=== PATIENT | female | born 1990 | race Caucasian/White ===

== ENCOUNTER 2024-02-15 19:36 | Outpatient (REF) | payer BC, SELFPAY | END 2024-02-15 19:37 | disposition home or self-care (01) | LOC: LAB 19:36 | PROVIDERS: Visit Provider Physician Assistant | DX: Z01.419 Encounter for gynecological examination (general) (routine) without abnormal findings (principal) | CPT/HCPCS: 87624; 88175 ==

== ENCOUNTER 2024-03-02 09:13 | Outpatient (OUT) | payer BC, SELFPAY ==
--- OUTSIDE RECORDS SUMMARY | 2024-03-02 09:15 | XMS_ITS | CCD ---
Author Organization [facility] Care Team Providers Care Produce Laborer Name Role Phone ADRIAN ., DR KWAN Admitting Unavailable ADRIAN ., DR KWAN Consulting Unavailable REQUEST, NONE LISTED Primary Care Unavaila ble ADRIAN ., DR KWAN Attending Unavailable ADRIAN ., DR KWAN Consulting Unavailable ADRIAN ., DR KWAN Attending Unavailable REQUEST, DR NONE LISTED Primary Care Unavaila ble ADRIAN ., DR KWAN Admitting Unavailable ADRIAN ., DR KWAN Consulting Unavailable ADRIAN ., DR KWAN Attending Unavailable REQUEST, DR NONE LISTED Primary Care Unavaila ble ADRIAN ., DR KWAN Admitting Unavailable LA ., MILENA Consulting Unavailable LA ., MILENA Attending Unavailable REQUEST, NONE LISTED Primary Care Unavaila ble [place] ., MILENA Admitting Unavailable ADRIAN ., DR KWAN Admitting Unavailable ADRIAN ., DR KWAN Consulting Unavailable REQUEST, DR NONE LISTED Primary Care Unavaila ble ADRIAN ., DR KWAN Attending Unavailable ADRIAN ., DR KWAN Admitting Unavailable ADRIAN ., DR KWAN Consulting Unavailable ADRIAN ., DR KWAN Attending Unavailable ADRIAN ., DR KWAN Attending Unavailable ADRIAN ., DR KWAN Admitting Unavailable ADRIAN ., DR KWAN Consulting Unavailable ADRIAN ., DR KWAN Consulting Unavailable ADRIAN ., DR KWAN Attending Unavailable REQUEST, DR NONE LISTED Primary Care Unavaila ble ADRIAN ., DR KWAN Admitting Unavailable ADRIAN ., DR WKAN Admitting Unavailable ADRIAN ., DR KWAN Consulting Unavailable REQUEST, DR NONE LISTED Primary Care Unavaila ble ADRIAN ., DR KWAN Attending Unavailable ADRIAN ., DR KWAN Admitting Unavailable REQUEST, DR NONE LISTED Primary Care Unavaila ble ADRIAN ., DR KWAN Attending Unavailable WEST, DR ROOSEVELT Mendoza Consulting Unavailable ADRIAN ., DR KWAN Consulting Unavailable ADRIAN ., DR KWAN Attending Unavailable REQUEST, DR ASHRAF LISTED Consulting Unavaila ble ADRIAN ., DR KWAN Admitting Unavailable REQUEST, DR ASHRAF LISTED Primary Care Unavaila ble REQUEST, DR ASHRAF LISTED Primary Care Unavaila ble ADRIAN ., DR KWAN Admitting Unavailable ADRIAN ., DR KWAN Attending Unavailable Unavailable Primary Care Provider UnavailAQUILES Valenzuela Attending Unavailable FLOWER OTERO Attending Unavailable Allergies Allergy Classification Reported Allergen(s) Allergy Type Date of Onset Reaction(s) Facility (1 source) Cefadroxil Drug Allergy [facility] (1 source) natural latex rubber Drug allergy (disorder) [facility] (6 sources) Cefadroxil Drug Allergy 12-02-2022 [facility] (6 sources) Latex Allergy to substance 12-02-2022 [facility] (6 sources) PARoxetine Drug Allergy 12-02-2022 [facility] Medications Current Medications Medication Drug Class(es) Dates Sig (Normalized) Sig (Original) 12 hr guaiFENesin 600 mg extended release oral tablet (2 sources) take 1 tablet by mouth in the morning, then take 1 tablet by mouth every twelve hours at bedtime guaiFENesin (Mucinex) 600 MG 12 hr tablet Take 1,200 mg by mouth in the morning and 1,200 mg before bedtime. Do not crush, chew, or split.. Active letrozole 2.5 mg oral tablet (5 sources) Aromatase Inhibitor Start: 02-12-2024 End: 02-17-2024 take 1 tablet by mouth once daily letrozole (Femara) 2.5 MG chemo tablet Indications: Anovulation Take 1 tablet (2.5 mg total) by mouth Daily for 5 days. 5 tablet 02/12/2024 02/17/2024 Active Bprsucel-Azt-Wz-FA ( 1 + IRON PO) (5 sources) Ypekazgw-Dxr-Fa-FA ( 1 + IRON PO) Active Vit-Fe Aiacygq-GL-ZRU ( VITAMIN/MIN +DHA PO) (5 sources) Start: 06-09-2023 Vit-Fe Bzsbasj-LE-DWH ( VITAMIN/MIN +DHA PO) 06/09/2023 Active ubidecarenone 30 mg oral capsule (2 sources) take 1 capsule by mouth once daily co-enzyme Q-10 30 MG capsule Take 30 mg by mouth Daily Active Problems Active Problems Problem Classification Problem Date Documented Da te Episodic/Chronic Anxiety disorders (5 sources) Anxiety disorder, unspecified; Translations: [Acute stress reaction] Onset: 05-22-2022 Chronic Female infertility (12 sources) Female infertility associated with anovulation; Translations: [Anovulation] Onset: 04-15-2022 Chronic Menstrual disorders (16 sources) Irregular menstruation, unspecified; Translations: [Disorder of menstruation] Onset: 05-13-2022 Chronic Other female genital disorders (6 sources) Abnormal uterine bleeding; Translations: [Other specified abnormal uterine and vaginal bleeding] Onset: 12-02-2022 12-02-2022 Chronic Past or Other Problems Problem Classification Problem Date Documented Da te Episodic/Chronic Hemorrhage during ; abruptio placenta; placenta previa (10 sources) Hemorrhage in early , unspecified; Translations: [Antepartum hemorrhage] Onset: 05-17-2022 Resolved: 12-02-2022 Episodic Mycoses (6 sources) Mycosis; Translations: [Candidiasis, unspecified] Onset: 12-02-2022 12-02-2022 Episodic Other female genital disorders (4 sources) Personal history of other diseases of the female genital tract; Translations: [PERSONAL HX OTH DZ FE GENITAL TRACT] Onset: 02-14-2022 Episodic Screening and history of mental health and substance abuse codes (1 source) Personal history of nicotine dependence; Translations: [PERSONAL HISTORY OF NICOTINE DEPEND] Onset: 05-23-2022 Episodic Results Test Name Value Interpretation Reference Range Facility DHEA-SULFATEon 08-23-2022 DHEA-Sulfate 352.0 ug/dL Normal 84.8-378.0 [facility] Comment on above: Performed By: #### L [facility] #### [facility] [address] [place] [address] Dr. Nam Keenan FSHon 08-23-2022 FSH 6.7 mIU/mL Normal [facility] Comment on above: Result Comment: Adul t Female: Follicular phase 3.5 - 12.5 Ovulation phase 4.7 - 21.5 Luteal phase 1.7 - 7.7 Postmenopausal 25.8 - 134.8 Performed By: #### L [facility] #### [facility] [address] [place] [address] Dr. Nam Keenan LUTEINIZING HORMONE (LH)on 0 08-23-2022 LH 13.7 mIU/mL Normal [facility] Comment on above: Result Comment: Adul t Female: Follicular phase 2.4 - 12.6 Ovulation phase 14.0 - 95.6 Luteal phase 1.0 - 11.4 Postmenopausal 7.7 - 58.5 Performed By: #### L BCL #### [facility] [address] [place] [address] Dr. Nam Keenan CBC AUTO DIFFon 08-22-2022 BASO # 0.1 103/ul Normal 0.0-0.1 [facility] Comment on above: Performed By: #### L [facility] #### [facility] [address] [place] [address] Dr. Nam Keenan Basophils/100 WBC (Bld) 0.7 % Normal 0.2-2.0 [facility] Comment on above: Performed By: #### L [facility] #### [facility] [address] [place] [address] Dr. Nam Keenan EO # 0.3 103/ul Normal 0.0-0.7 [facility] Comment on above: Performed By: #### L BCL #### [facility] [address] [place] [address] Dr. Nam Keenan Eosinophils/100 WBC (Bld) 3.9 % Normal 0.9-7.0 [facility] Comment on above: Performed By: #### L [facility] #### [facility] [address] [place] [address] Dr. Nam Keenan Erythrocyte distribution width (RBC) [Ratio] 13.3 % Normal 11.0-15.0 [facility] Comment on above: Performed By: #### L [facility] #### [facility] [address] [place] [address] Dr. Nam Keenan Hematocrit (Bld) [Volume fraction] 38.7 % Normal 36.0-48.0 [facility] Comment on above: Performed By: #### L [facility] #### [facility] [address] [place] [address] Dr. Nam Keenan Hemoglobin (Bld) [Mass/Vol] 12.4 g/dL Normal 12.0-16.0 [facility] Comment on above: Performed By: #### L [facility] #### [facility] [address] [place] [address] Dr. Nam Keenan IG # 0.01 10e3/ul Normal 0.00-0.03 [facility] Comment on above: Performed By: #### L [facility] #### [facility] [address] [place] [address] Dr. Nam Keenan IG % 0.1 % Normal 0.0-0.5 [facility] Comment on above: Performed By: #### L [facility] #### [facility] [address] [place] [address] Dr. Nam Keenan LYMPH # 2.9 103/ul Normal 1.2-3.8 [facility] Comment on above: Performed By: #### L [facility] #### [facility] [address] [place] [address] Dr. Nam Keenan Lymphocytes/100 WBC (Bld) 34.4 % Normal 20.5-60.0 [facility] Comment on above: Performed By: #### L [facility] #### [facility] [address] [place] [address] Dr. Nam Keenan MANUAL DIFF REQ NO Normal [facility] Comment on above: Performed By: #### L [facility] #### [facility] [address] [place] [address] Dr. Nam Keenan MCH (RBC) [Entitic mass] 27.8 pg Normal 26.7-34.0 [facility] Comment on above: Performed By: #### L [facility] #### [facility] [address] [place] [address] Dr. Nam Keenan MCHC (RBC) [Mass/Vol] 32.0 g/dL Normal 29.9-35.2 [facility] Comment on above: Performed By: #### L [facility] #### [facility] [address] [address] [address] Nam Keenan MCV (RBC) [Entitic vol] 86.8 fL Normal 81.0-99.0 [facility] Comment on above: Performed By: #### L [facility] #### [facility] [address] [address] [address] Nam Keenan MONO # 0.6 103/ul Normal 0.3-0.8 [facility] Comment on above: Performed By: #### L [facility] #### [facility] [address] [place] [address] Dr. Nam Keenan Monocytes/100 WBC (Bld) 6.7 % Normal 1.7-12.0 [facility] Comment on above: Performed By: #### L [facility] #### [facility] [address] [place] [address] Dr. Nam Keenan NEUT # 4.6 103/ul Normal 1.4-6.5 [facility] Comment on above: Performed By: #### L BCL #### [facility] [address] [place] [address] Dr. Nam Keenan Neutrophils/100 WBC (Bld) 54.2 % Normal 43.0-75.0 [facility] Comment on above: Performed By: #### L BCL #### [facility] [address] [place] [address] Dr. Nam Keenan Platelet mean volume (Bld) [Entitic vol] 9.6 fL Normal 9.5-13.5 [facility] Comment on above: Performed By: #### L BCL #### [facility] [address] [place] [address] Dr. Nam Keenan PLT 335 103/ul Normal 150-450 [facility] Comment on above: Performed By: #### L [facility] #### [facility] [address] [place] [address] Dr. Nam Keenan RBC 4.46 106/ul Normal 4.20-5.40 [facility] Comment on above: Performed By: #### L [facility] #### [facility] [address] [address] [address] Nam Keenan WBC 8.5 103/ul Normal 4.0-11.0 [facility] Comment on above: Performed By: #### L [facility] #### [facility] [address] [place] [address] Dr. Nam Keenan FREE T4on 08-22-2022 Free T4 [Mass/Vol] 1.14 ng/dL Normal 0.76-1.46 [facility] Comment on above: Performed By: #### L [facility] #### [facility] [address] [address] [address] Nam Keenan GLYCOHEMOGLOBIN A1Con 2022 ADA RECOMMENDATION SEE BELOW Normal [facility] Comment on above: Result Comment: ADA RECOMMENDED LIMIT 4.0 - 6.0 ADA THERAPEUTIC TARGET < 7.0 ACTION SUGGESTED > 7.0 Performed By: #### A 1C #### [facility] [address] [place] [address] Dr. Nam Keenan Glucose [Mass/Vol] 97 mg/dL Normal [facility] Comment on above: Performed By: #### A 1C #### [facility] [address] [address] [address] Nam Keenan HbA1c (Bld) [Mass fraction] 5.0 % Normal 4.5-6.2 [facility] Comment on above: Performed By: #### A 1C #### [facility] [address] [place] [address] Dr. Nam Keenan PREG QUANT HCGon 08-22-2022 HCG QUANT <1 Normal [facility] Comment on above: Performed By: #### P REGQNT, TSH #### [facility] [address] [place] [address] Dr. Nam Keenan HCG RANGE SEE BELOW Normal [facility] Comment on above: Result Comment: 5-50 0.2-1 WEEK 50-500 1-2 WEEKS 100-5,000 2-3 WEEKS 500-10,000 3-4 WEEKS 1,000-50,000 4-5 WEEKS 10,000-100,000 5-6 WEEKS 15,000-200,000 6-8 WEEKS 10,000-100,000 2-3 MONTHS Performed By: #### P REGQNT, TSH #### [facility] [address] [place] [address] Dr. Nam Keenan TSHon 08-22-2022 TSH 2.026 uIU/mL Normal 0.358-3.740 [facility] Comment on above: Performed By: #### P REGQNT, TSH #### [facility] [address] [place] [address] Dr. Nam Keenan PREG QUANT HCGon 05-27-2022 HCG QUANT 3 mIU/mL Normal [facility] Comment on above: Performed By: #### P REGQNT #### [facility] [address] [place] [address] Dr. Nam Keenan HCG RANGE SEE BELOW Normal [facility] Comment on above: Result Comment: 5-50 0.2-1 WEEK 50-500 1-2 WEEKS 100-5,000 2-3 WEEKS 500-10,000 3-4 WEEKS 1,000-50,000 4-5 WEEKS 10,000-100,000 5-6 WEEKS 15,000-200,000 6-8 WEEKS 10,000-100,000 2-3 MONTHS Performed By: #### P REGQNT #### [facility] [address] [place] [address] Dr. Nam Keenan CBC AUTO DIFFon 05-22-2022 BASO # 0.1 103/ul Normal 0.0-0.1 [facility] Comment on above: Performed By: #### L [facility]CL[facility] #### [facility] [address] [place] [address] Dr. Nam Keenan Basophils/100 WBC (Bld) 0.7 % Normal 0.2-2.0 [facility] Comment on above: Performed By: #### L [facility] #### [facility] [address] [place] [address] Dr. Nam Keenan EO # 0.2 103/ul Normal 0.0-0.7 [facility] Comment on above: Performed By: #### L [facility] #### [facility] [address] [place] [address] Dr. Nam Keenan Eosinophils/100 WBC (Bld) 1.6 % Normal 0.9-7.0 [facility] Comment on above: Performed By: #### L BCL #### [facility] [address] [place] [address] Dr. Nam Keenan Erythrocyte distribution width (RBC) [Ratio] 13.9 % Normal 11.0-15.0 [facility] Comment on above: Performed By: #### L [facility] #### [facility] [address] [place] [address] Dr. Nam Keenan Hematocrit (Bld) [Volume fraction] 36.2 % Normal 36.0-48.0 [facility] Comment on above: Performed By: #### L [facility] #### [facility] [address] [place] [address] Dr. Nam Keenan Hemoglobin (Bld) [Mass/Vol] 12.1 g/dL Normal 12.0-16.0 [facility] Comment on above: Performed By: #### L [facility] #### [facility] [address] [place] [address] Dr. Nam Keenan IG # 0.03 10e3/ul Normal 0.00-0.03 [facility] Comment on above: Performed By: #### L [facility] #### [facility] [address] [place] [address] Dr. Nam Keenan IG % 0.3 % Normal 0.0-0.5 [facility] Comment on above: Performed By: #### L [facility] #### [facility] [address] [place] [address] Dr. Nam Keenan LYMPH # 3.9 103/ul Critically high 1.2-3.8 [facility] Comment on above: Performed By: #### L [facility] #### [facility] [address] [place] [address] Dr. Nam Keenan Lymphocytes/100 WBC (Bld) 38.0 % Normal 20.5-60.0 [facility] Comment on above: Performed By: #### L [facility] #### [facility] [address] [address] [address] Nam Keenan MANUAL DIFF REQ NO Normal [facility] Comment on above: Performed By: #### L [facility] #### [facility] [address] [address] [address] Nam Keenan MCH (RBC) [Entitic mass] 28.0 pg Normal 26.7-34.0 [facility] Comment on above: Performed By: #### L [facility] #### [facility] [address] [place] [address] Dr. Nam Keenan MCHC (RBC) [Mass/Vol] 33.4 g/dL Normal 29.9-35.2 [facility] Comment on above: Performed By: #### L BCL #### [facility] [address] [place] [address] Dr. Nam Keenan MCV (RBC) [Entitic vol] 83.8 fL Normal 81.0-99.0 [facility] Comment on above: Performed By: #### L BCL #### [facility] [address] [place] [address] Dr. Nam Keenan MONO # 0.8 103/ul Normal 0.3-0.8 [facility] Comment on above: Performed By: #### L BCL #### [facility] [address] [place] [address] Dr. Nam Keenan Monocytes/100 WBC (Bld) 7.6 % Normal 1.7-12.0 [facility] Comment on above: Performed By: #### L BCL #### [facility] [address] [place] [address] Dr. Nma Keenan NEUT # 5.4 103/ul Normal 1.4-6.5 [facility] Comment on above: Performed By: #### L [facility] #### [facility] [address] [place] [address] Dr. Nam Keenan Neutrophils/100 WBC (Bld) 51.8 % Normal 43.0-75.0 [facility] Comment on above: Performed By: #### L [facility] #### [facility] [address] [address] [address] Nam Keenan Platelet mean volume (Bld) [Entitic vol] 9.1 fL Critically low 9.5-13.5 [facility] Comment on above: Performed By: #### L BCL #### [facility] [address] [address] [address] Nam Keenan PLT 342 103/ul Normal 150-450 [facility] Comment on above: Performed By: #### L [facility] #### [facility] [address] [address] [address] Nam Keenan RBC 4.32 106/ul Normal 4.20-5.40 [facility] Comment on above: Performed By: #### L [facility] #### [facility] [address] [place] [address] Dr. Nam Keenan WBC 10.3 103/ul Normal 4.0-11.0 [facility] Comment on above: Performed By: #### L BCL #### [facility] [address] [place] [address] Dr. Nam Keenan PROF CHEM 8 (BAS METB)on Anion gap [Moles/Vol] 12.1 mmol/L Normal [facility] Comment on above: Performed By: #### B MP #### [facility] [address] [place] [address] Dr. Nam Keenan Calcium [Mass/Vol] 8.9 mg/dL Normal 8.5-10.1 [facility] Comment on above: Performed By: #### B MP #### [facility] [address] [place] [address] Dr. Nam Keenan Chloride [Moles/Vol] 105 mmol/L Normal 98-107 [facility] Comment on above: Performed By: #### B MP #### [facility] [address] [place] [address] Dr. Nam Keenan CO2 [Moles/Vol] 27.4 mmol/L Normal 21.0-32.0 [facility] Comment on above: Performed By: #### B MP #### [facility] [address] [address] [address] Nam Keenan Creatinine [Mass/Vol] 0.66 mg/dL Normal 0.55-1.02 [facility] Comment on above: Performed By: #### B MP #### [facility] [address] [address] [address] Nam Keenan EGFR-AF SYRIAN >60 Normal >=60 [facility] Comment on above: Performed By: #### B MP #### [facility] [address] [address] [address] Nam Keenan EGFR-NON AF SYRIAN >60 Normal >=60 [facility] Comment on above: Performed By: #### B MP #### [facility] [address] [address] [address] Nam Keenan Glucose [Mass/Vol] 105 mg/dL Normal 74-106 [facility] Comment on above: Performed By: #### B MP #### [facility] [address] [address] [address] Nam Keenan Potassium [Moles/Vol] 3.5 mmol/L Normal 3.5-5.1 [facility] Comment on above: Performed By: #### B MP #### [facility] [address] [address] [address] Nam Keenan Sodium [Moles/Vol] 141 mmol/L Normal 136-145 [facility] Comment on above: Performed By: #### B MP #### [facility] [address] [address] [address] Nam Keenan Urea nitrogen [Mass/Vol] 7.0 mg/dL Normal 7.0-18.0 [facility] Comment on above: Performed By: #### B MP #### [facility] [address] [place] [address] Dr. Nam Keenan Urea nitrogen/Creatinine [Mass ratio] 10.6 mg/mg Normal [facility] Comment on above: Performed By: #### B MP #### [facility] [address] [address] [address] Nam Keenan PREG QUANT HCGon 05-17-2022 HCG QUANT 532 mIU/mL Normal [facility] Comment on above: Performed By: #### L [facility] #### [facility] [address] [place] [address] Dr. Nam Keenan HCG RANGE SEE BELOW Normal [facility] Comment on above: Result Comment: 5-50 0.2-1 WEEK 50-500 1-2 WEEKS 100-5,000 2-3 WEEKS 500-10,000 3-4 WEEKS 1,000-50,000 4-5 WEEKS 10,000-100,000 5-6 WEEKS 15,000-200,000 6-8 WEEKS 10,000-100,000 2-3 MONTHS Performed By: #### L [facility] #### [facility] [address] [place] [address] Dr. Nam Keenan US PREG TVon 05-13-2022 US PREG TV EXAMINATION: US PREG TV HISTORY: Missed period COMPARISON: No relevant comparison available. FINDINGS: Transvaginal images Area of anechoic echogenicity within the endometrial cavity measuring 7.1 x 5.2 x 7.2 mm with a mean sac diameter of 6.5 mm. pole: Not visualized Cervix: Closed, 4.3 cm The uterus is normal in appearance, anteverted, retroflexed The right ovary measures 4.3 x 4.2 x 3.3 cm. Corpus luteal cyst. The left ovary is not visualized Clinical age: 7 weeks 0 days Clinical KAY: 12/30/2022 IMPRESSION: Suspected early intrauterine gestation. Continued surveillance recommended Electronically authenticated by: ROOSEVELT LOPEZ Date: 2022-05-13 13:02 Normal [facility] PREG QUANT HCGon 04-28-2022 HCG QUANT 139 mIU/mL Normal [facility] Comment on above: Performed By: #### L [facility] #### [facility] [address] [place], [place] [id number] Dr. Nam Keenan HCG RANGE SEE BELOW Normal [facility] Comment on above: Result Comment: 5-50 0.2-1 WEEK 50-500 1-2 WEEKS 100-5,000 2-3 WEEKS 500-10,000 3-4 WEEKS 1,000-50,000 4-5 WEEKS 10,000-100,000 5-6 WEEKS 15,000-200,000 6-8 WEEKS 10,000-100,000 2-3 MONTHS Performed By: #### L [facility] #### [facility] [address] [place] [address] Dr. Nam Keenan PREG QUANT HCGon 04-26-2022 HCG QUANT 50 mIU/mL Normal [facility] Comment on above: Performed By: #### P REGQNT #### [facility] [address] [place] [address] Dr. Nam Keenan HCG RANGE SEE BELOW Normal [facility] Comment on above: Result Comment: 5-50 0.2-1 WEEK 50-500 1-2 WEEKS 100-5,000 2-3 WEEKS 500-10,000 3-4 WEEKS 1,000-50,000 4-5 WEEKS 10,000-100,000 5-6 WEEKS 15,000-200,000 6-8 WEEKS 10,000-100,000 2-3 MONTHS Performed By: #### P REGQNT #### [facility] [address] [place] [address] Dr. Nam Keenan PROGESTERONEon 04-19-2022 Progesterone 12.6 ng/mL Normal [facility] Comment on above: Result Comment: Foll icular phase 0.1 - 0.9 Luteal phase 1.8 - 23.9 Ovulation phase 0.1 - 12.0 First trimester 11.0 - 44.3 Second trimester 25.4 - 83.3 Third trimester 58.7 - 214.0 Postmenopausal 0.0 - 0.1 Performed By: #### P ROGES #### [facility] [address] [place] [address] Dr. Nam Keenan PROGESTERONEon 04-16-2022 Progesterone 9.5 ng/mL Normal [facility] Comment on above: Result Comment: Foll icular phase 0.1 - 0.9 Luteal phase 1.8 - 23.9 Ovulation phase 0.1 - 12.0 First trimester 11.0 - 44.3 Second trimester 25.4 - 83.3 Third trimester 58.7 - 214.0 Postmenopausal 0.0 - 0.1 Performed By: #### L BCL[facility] #### [facility] [address] [place] [address] Dr. Nam Keenan PROGESTERONEon 03-15-2022 Progesterone 6.2 ng/mL Normal [facility] Comment on above: Result Comment: Foll icular phase 0.1 - 0.9 Luteal phase 1.8 - 23.9 Ovulation phase 0.1 - 12.0 First trimester 11.0 - 44.3 Second trimester 25.4 - 83.3 Third trimester 58.7 - 214.0 Postmenopausal 0.0 - 0.1 Performed By: #### L [facility] #### [facility] [address] [place], [place] [id number] Dr. Nam Keenan PROGESTERONEon 02-15-2022 Progesterone 11.0 ng/mL Normal [facility] Comment on above: Result Comment: Foll icular phase 0.1 - 0.9 Luteal phase 1.8 - 23.9 Ovulation phase 0.1 - 12.0 First trimester 11.0 - 44.3 Second trimester 25.4 - 83.3 Third trimester 58.7 - 214.0 Postmenopausal 0.0 - 0.1 Performed By: #### P [facility] #### [facility] [address] [place], [place] [id number] Dr. Nam Keenan Coding Summary.on 03-30-2021 Coding Summary. CD:[id number] Gh 0bWw+PGhlYWQ+EI2PRXWhE 99gyYVdtU0PV6rLON8BEEU JWQSUJA3QHT1dwSD8YYhtH 2VybiAv EstsjVKpXH83MXg3GMW4uL fpSIsplY2rjTCvP3t8FqAl FA25aV72PFirBHQbRgB7Kh ZpbjsgbWFy A8xiFeHcfOIiUyv+PHRhYm xlIHdpZHRoPScxMDAlJyBz vRdlLY9jFn7iYJVoVSOmbT xhcHNlOiBj n1bxSPRnLHsyMD4chLrfG6 CkiHI6WWTvy0k9Tf43hBJ+ KYVdAHT0dLxzXSrwl517Pd Fvt1nrUDU3 oDEbEIwmVXQ4N94ii7L5ZD SxPPEaJHG4dRB0pV7ucVpx egcrR5CxrFEeQdA0XEI7uQ IwrX2oqZpd wrvxjS9fVtu+N79INU6TWY NOWK4BCij4R2EaAqpmwDG+ BY45UPYiSV34uPIudDKyo6 uwlHh4MdWi QIMrPQL2bZooOQynx3VlUP GgA57txGAap9C0MZGixPze iNOhJkVjuKV6iC1qXEfrxs uqw6bitzye Cnwyq1zycb54vJ33D58gXC eqCAWkTZQ1GSLaDIOwpZgt cd6qtR6aNc5+ALgtj7wmd0 hghJv6ZtGk ZEXsopQmmAsiWDL1e3UdZy 75D9ZhlAdqg5LnKhg9lv64 pSDcd8T2vPN5DTacMRYuyE 6fWFrfOlE9 LRMgFsVbfD31pGQqBXsqJz 0ooDvgaSflMV2jLYYcvpbk PPZvyG3cYHJzfCOmyIlhFN 4wNTBpbjtm w217JfIoRVZ6TNPwiTNbD2 YpoY3gNzKxIRZnEBIwC5Lo oDApBMjzY342KLdhWuN4BL RwrlXeK4Hx ISAraLjoFrP2q5E5Cg8Ni6 CbpwhlCYN9AFtyGIPyAfDe GoHmDaS8A3DzEje1PBXhaG vuVI2oK6Wx UIJfzboruquyoJA4GAMgIN CwmD60zGEqRFxhYk9qk2V4 y250RHEtYDOelD29Gq5itA ogMTBwdCBU iT7nylclf9bjtxyzXnJmDD EcLVt6ZQq6OHMumUbrNoTc DVJ5FnJ4WVS2tNVcqI8ygD pjbdsivQ4i Oyc+S87lhH1cAXT1FDW9xe xbAHBrpdOiQB90KT79Q0Kb PjwvdGFibGU+PGRpdiBzdH rbKV2fCiVw d7utm3UeZKceO6MpTPWiIH ffZfe3FOSuYLB8gVP7bT1o CIRcCBeci1B5yWI7T9Kmaa Chiw6rq4yr ORPsTNhqY26ehRBwe6M8LY OfmRM9YPEryXusWiNumM39 Oyc+ALWnlIpoa4RjEqmnb1 flx2ysvOp1 UyWjOUJnoaSijInhFFR4t4 XyTu23L79fYUkbJLIwJEGm SRGlCJDpvJoqle9ywK0yHx 8+PGNvbCB3 xVV6oM2fGFSuTpV2SSifX0 86RhQjqLEtEypxy8ysf6gc jFo3JrJgTFRptdBefPwoEK H6q1YdOa99 S74vQEsfROYdKRYrQTAsPD IfnNkssg0ehN1zEr0+PC9j k4rchf93gD71jNR+PHRkIH V5mTsbGZxi EXRseQ8pQKdmRqV4XOUkYi RjcU06dAQpHWeuDt2bhHnn vPzrKD5eXAWjaiinf515Sd Plk2wcXGQg wJRpXLsyNMA7D03ms2K1SL UyGUDlXZT9yPA4cE9sqRlf bjogbGVmdDsgdmVydGljYW ykLPodY086 IHRvcDsnPlBhdGllbnQgTm EoYAs5E5GuMar8OSAmrLig LE9czWRnENsgXh8jhKzgkT rpBD3iTBPw huyil539RoTcw7wzHCIoiV MfBYfgCPE5R68iy0Y3ZIBj BWLyOZK0oFM9aT7bqAwgem ogbGVmdDsg ogNwcQdqGHckJChuI399LN RvcDsnPkJpcnRoIERhdGU6 RW56CQ33pNYkv1L9wLN3X1 BhZGRpbmct xhzznRE1JJKdALYfsB39Tj 9ebLxiNm3pSOIeZDJ8UDRu rIAlZ5RexP4zNmMsYSSoZM DjQ2MnsSTo EPtkC193MTfnFuY5PKSokk HlS8TgTWPhmEmyFkP9y2Q7 Mt7WV5H4NJ96GO17vGNsn6 L9uWZ1Q5Ms LVXyuhgojkugdXW9VWGgUX QsuH65Cy1nlMdpNm7aONDj IUZ8VSLkpXKeQ1XuqS2dXj AjMDAwMDAw X9LrxAPmHQyeQ496PVxiPo I7CRXgofAfN4PxQAZcuLpm GsM8i0N3Tc0PFWq2YK65CQ 56sVLdj9M0 wUD3O4NuOOAdrbmpmhpyxU Q1RAKtVAKzjA51Jj3peMmn Zq6yPBKhZCO3KUImcIPsL4 KotY3sLqOf MUKvIGRzJ9YgwRSbLGncD4 70IRwiFwM3CPNijlVgJ7Vy PQPnpJpvSdI2l3N9Vv8QDG YhRS33OKI9 wLB2XJ59TR05Q6DxVzjbhM FibGU+PHRhYmxlIHdpZHRo XAvbCPWtSyRpgJwbIR7qJo 9yZGVyLWNv bLxgxIVcKaEze6iyAUGjUJ jtVV5xsFqyM3AhpGJ1AREa p3k9Wd99G86oU1SkfTZ+PG QbnZT7sFD6 xE3cQjHaJyN7ZWnpN310De DgrGMoKtkxn1zrj6xhlPt9 IrE3NSVfxeHdnZfpHOV4r9 RqHf96Q17k IHdpZHRoPSIxNSUiIHZhbG nlsd7wiK7dOh9+PGNvbCB3 yFL4wJ7eGfFaZvO8QLcgO0 49InRvcCIv Dduzg0qtv1iovWc5ZwDwDJ AbqmSqdEubAMV5t9XeHy24 U0TdvAnpy5JhFvs5jy64hN Gxa8I1aZG8 K0IsTHUhhcgveRTwvKyjTZ 5jIAEbymcbYIRxxR4xHKXl L3p6PkZnUmE2HTliD3Eqhb A7KZSvaLYg NQgbCHR1B42pt9J1KKMcVP MuWBI9dJD9jS7krTuoknop bGVmdDsgdmVydGljYWwtYW hnD893PFWd iCvsHGDhxE7iNGWvhIBesQ uqAZ5lKWJkblfpRd2FCSbE QoyiPiTAA2bQGVJGBO58DD 47kYFpp6D4 nAK4R9ZxUKOagymmdmjopA D9YKRjJGLcjQ00xSAbSYcu Pq6sr8T3s586HFYkLBXteJ 06Kw7ccVul OJWytAKXwA5mnktjz4gtui cqYyAnUKQxDWq6QRl7AXSw uYnoKuOlRHA6XmJ1QZY1iZ ElrL8kdIrq dsgyoQ9mQfi+MDgvMjEvMT r9JQccxXK+NUYjLEP1uOtj IGgwEVWoeM0wZNUhB1g9Bc QuHcZ3PGjy N6IlHZUilrhaXa81tI2nFd AoKtU7GAltR9FdhcT1INPs rUHmRQosOEJ0R54rl3Q4CD MwMDAwMDA7 fKG2sD1kmRmxrhxysJPyjK jwcmIdhUeeULuqJMexW924 IHRvcDsnPjMyIFllYXJzPC 38ON67hJTg e7R4hAC8F7ThMLEtanpytr iceOW0UNIjLJAcgA61jUVh RHjyBk0re3A4b600ZVJfEE EvtD52Qu8d xOrlKFVruVAZsE2qewjdu0 idbvdaIeFrSOToQTy9SRw9 QSQmqXuiXzLeDTQ1HbK1GY V6uLLsaW2y zMshjofivT0iOkr+RmVtYW suQD49OR80zYCwr8E6kLV4 G3OzXTQbadjemzoxiDS4RK SpXDCmgD42 sXZzIPfzLp6hr4T7h122QH NuRZYenL98Wo1zsGejAACn eTAJkT4bfoxoq3sdccgjVw AwMDAwMDt0 OFr4GPIqvEhgSsTrTCG6Iu M7GQQ8uAHnxB2hvGdoerkf pG7pJug+Z7W1cRZ4gUHfcV wvdGQ+PC90 ko12G8FxFagkExf6LLLaZH V2cVD0lN7gMBJxHXowr3S7 eAF6L0IvbsFyio2mz7ndLH GcRXsmU78b oNWyk5T6XYKbaNG7LPVjsX xeTcXefC80Cvo+PGNvbGdy f5RyEtqco6bhw0wqmRp8Zz MwJSIgdmFs zIjwNMH3x8JqHb42P75oJZ dpZHRoPSIzMCUiIHZhbGln bp8xuW2gRy7+RMMzlZY5wL F1cX1xLdDt HiW9VVptV708HjGzgSGvTr lhr7bny8kucHj8KuMlHPAy wkZuyCmmWJN3i8SwFv67U5 VelGhno2Nk Alr3je88lECea7A3tVA1K1 CnNPMhxnzbmYYmmDvtFJ0n KNAzmtlhEHWviA1hGMRfH4 m0IfAaYtI9 OLvjC5UkyvG2AJHgsWFyIF TvxRDTmD0edttil7jhyahg MtCfZCPuAXg8QRl8AKLubN duOiBsZWZ0 OlU8AHO8qPPjoV4btPadek epyS1rYvc+IGp4c8ofsMGv CF4ojQY6CA99WV42dFTdz4 J6aVV9P8Jy VZLhbbqsafqxeRV4EYClWD QneS63Ph4zyOwuLr8eQQOn HPK4NEVzyAMgQ0HagG5qYs AjMDAwMDAw K7YumYSfGSgbE768UPycFh Y8QBTusgSlR2KjOBCjpFkp DzL8n3G5Ma2FGC92CX56RN 85fCGkk2U7 qVS0J6XpCRNjakunlvpsbL R2MJEgKIZaqS79Pa4nzMiw Ro5qWECdKCH6XFFxgTDlW8 FepZ8mBlCa TSDeXEHjX2RsvVDtZIuiC8 91CSkcDnZ8LPRbflVqN8Fz BBJlpNieMuN3q2P3Ki8LAa 12JF54YB78 jWUlm7P3zGJ6I0RuTKSibk lxcumpbCT9XAMaRGHibR87 Ef9twWvrSd9uYNWbXUD4EX OlwSGlR6Nz nG1oKnFpSLZmLXUyV8EafM WiFXbeB616INscVnF8AYSg urXyO1BgGSUswBbuYpH0i9 Q7Cs4JSPxj lyy0A6PrMnbapDS+PC90YW StBI67bLHtrMSal8wdeOy1 WmZoRUNmTBJ4wUdiHBhlr0 QdZBImX34k bGFw (more content not included)... [facility] Coding Summary.on 03-18-2021 Coding Summary. CD:[id number]:[id number] Gh 0bWw+PGhlYWQ+JE0TJFRqE 70fnADikR5AO5jAZH7COXO RRFFHKR9VAT9teCR8RMagN 2VybiAv QiiyiNThWK98ZAa3CFI2hD fbAShkcE2lvPMzY3h2FaVi CR94yJ34SHlaGZZvUdR8Ws ZpbjsgbWFy J1jgNyWlwDZaIbc+PHRhYm xlIHdpZHRoPScxMDAlJyBz aXvdLG3zZz8lWSQiSAShaG xhcHNlOiBj o1sjBBNjBStjET3euNmcJ3 JlhSR3YMYuz2y5On91pNE+ SFZyMMP8nBluBSmyg208Wg Hbj9fzPXI1 pOVnYUrpOHD7D39ck4G7KF VePCIwDCO5cLZ7eW1miJec qyhhS7EguIEgZsI8DMD8uZ JlpV5ghVay bmctuZ0lKlw+Z62YLO5OBQ DPVQ1OCvp4A6OxModxvNQ+ XC02GFQyXP52dJQxmVGex9 ojePn2RsRq LAHnVZV0nCneGXxlf2UdQL PaN24gaZSka3X9MZUjnIgo mQKcQrRuaHE5nG9bYLperd xkl3zlyxhp Fbvbx7ybeb69qS96Q35gBR doSPNdQCT1YCNhZWWtiEfg rp6syN1mJi8+WZjsq5qsl3 erxGi6SnLa TLEtboRzhHldMIA5m7JlJj 57K3XerJdvk3ZbOwk3su11 dZZrn4M2rPQ5PKzaOTLlzN 8hFPaqDaM5 RCLvHePwzG41oIZlZOwxBc 4rkHjfaJurBY2zBPAcmkuw CRKloL2gIXYnfXEesQzkHD 4wNTBpbjtm m831LdVfZKT7DTUqeOQkK7 FuqP1yFgSsYOPxJIAuB0Tq dVWtWTujM836XOddLoX7JL XsqnSlJ1Jc YCQtiKodRvI1k2P9Qj1Tw4 VenvzbRRQ2KBigQMEpRxO9 FcTvZhU8W6OzOlj0PKWilG jaAY0rP0Ja JOKvrhfrjfjmkNJ5OOVrLP HngK66hDCeZWwmJq7ug0R9 a547YLRgOWMbqC98Oy6tvR ogMTBwdCBU iM8rfsquo4ltijtzBlJnRQ LdHJq1SMy1WAXypZfzYqWk IIT9FxJ7HZY8wOFnyL9poE rdcektfJ3i Oyc+M89unV3hMQW2KGI4na icAVVttzIvUM25UD59R7Jk PjwvdGFibGU+PGRpdiBzdH ozTC0hLoAu m0coz8WcKKvsX1MwBLHdGO fvBpp1SMGtVIC4eDF4hZ9o JYDeDBqpj4U4hIG2P5Htqy Foip4ei5sc KFPkTJzsV76qeRFxv5Z0FH NbjHH7ZXDbvLziGcPbiM37 Oyc+IPCmdGnpj5ImYskkd1 tze7gzdDc4 WiBbQUYwmvEqgDqlFJU9s7 UfKw27N61gMHzkTVLjSOPx ABFaJFEkhDbisj8obN7lTa 8+PGNvbCB3 uHI7eF0sZTGqLhX2LKdeG0 77EiDfsTEqAwadw7ego9tq aOj3XhAzZGLkgwXdtDdcZU O7u2JbFn69 I24cNIlhPWAzQIVkMJHeJU ZodEoiqc6zbK4rAe2+PC9j m7mbml86tQ08nMB+PHRkIH L2oEakKEth YZArbL0kDUkiAdY3NLEoYl WczK27yLBbCZccYy8dgZds dIqiOZ3rRZZennudp367Qf Wdd8ifHZWu cLGwRBjvVJY5D63az8K3AE StKNWdYAE4xXO4sP0uoLjd bjogbGVmdDsgdmVydGljYW boYTgsT065 IHRvcDsnPlBhdGllbnQgTm CgQNt7Q7AaZii9MXZjkIup QC0abIYeGCacRv0xiMsydJ ybJA6lRUOg bunex106JuWcn0vwVNVnhQ ZzUSpbVAV0G66ur1M2ZDTq HUIpXUA3bVW8jK1vrUprqe ogbGVmdDsg foLilHujIZpuWSrgH151BB RvcDsnPkJpcnRoIERhdGU6 TN59HQ33nXGje1U3gOC8I2 BhZGRpbmct sjdolQI1CJObGCFhcQ50Hu 6mfCsaFh8oALKbKOM9EFRm bOEbA2PkdP8tUePuYRQmWC NvW6WfcSOl BCvxV211DLpfXvE4FAAljw RbW3BdKMJqoHghGpB0o4O8 Jn2IY9Z4PK73DF95pAPkg4 W0kYR2E6Ro LQOlzpyanisblTV4FVZkXA VnpC11At6jjKygHt9cMMVb HTL1QWEcbBBwW5AwqY2lRa AjMDAwMDAw G1EgaEOuFYotK491WNlfIy Q9IHQoceZlW4BsSNOegWqj FgY5h2O0Rr0EMOb6SE15CW 90cBArm8C4 oDH2Q4QpFZDffusgaqayrU H5HHQqIYCakK30Sg3vdIhy Uv9tSPEtPZA7WFSlaGFlY6 UlvW2lEbKo EKIrXBNqV1FhhNNvLNpgX3 11FCfdCnS3TVQqxbPhH6Pd TVHanUooMiX0y6L0Gg8VOR CaRE16BPN4 lXB8BZ79OE99T2VsDmpmjM FibGU+PHRhYmxlIHdpZHRo BQwdWIHgAwMxzZwnPH8gRh 9yZGVyLWNv wJxtlHHkPmIen0ycZMPhIU yvVR4pzQghM9ZmuRK9XDKl b8u8Fm26Z73wS5DzaIM+PG YqnNW2zDJ7 dS7zSmArWkQ9EWsbR859Od UcgCIzXrgkp3iwj9esoTq9 JlG2TDRgciMkpPbvHWO4i7 JfTf27U16k IHdpZHRoPSIxNSUiIHZhbG kpiu5duB0xSx9+PGNvbCB3 kIH9jF6wIyHnQqM6JQogO4 49InRvcCIv Qoipv7npz2jujSc6FeXwSE LcufPgbAedUCY7u4GvFq10 D5QktHptl0RsNto7no54aU Zoh6N8fNB2 K7KcEXAlskseaMZykUinDJ 1cMJSayglrRDYyaR8oSYYw L8f8RsOfKtK4VEegO8Zeyp T5SRBcpDOw RNliAGV4C98ck7X8GRJhOC AqBHE3bGJ7yB9zwOsemmvq bGVmdDsgdmVydGljYWwtYW wsN741MXDr sOrsTVUleI9oZXByyUHoiO sqMM6kGAFqipjfRd3RAVkM HaexXuUJS5bOOUIMES22KV 77wFBgi3C3 wTV0A1BlVTVqhayitgsrqX Y1VDLoPJTjnE10yYCeTVrg Ht3wa4F7n524PKOaVBZgkH 47Ng8iqTrf PSIqeTFQhP6gugxgj9eser xoSpWkHZPdNZc4ACo9QXIp sRsfAoRpVNU1PlO9JHK4cT FesG0ubZcn zljhcY4aFbf+MDgvMjEvMT j4AXcbkCV+JZTtRGF8qSeo JNabKYQmvJ8xMCWwU5f0Ja UiEmH6DWol D3KbXRBiojoeYd13nE3kTr ZvBsY5GGitW1OsgjE5IAId sCLnQLafKVF0R69dn6E6UW MwMDAwMDA7 zZE6nO4bdNxeljfqqMNgqK hnyxBujItxEOfoLMbyE604 IHRvcDsnPjMyIFllYXJzPC 60JS57kIUs d3P0zYG7J1GiQCGaatgnvw iujWA2FOWjMFLpcX75mQEx YEdbEr7oa6Q3i783HPYaKT PeoK02Yr8b cBhxJWLnyVMSdL2qubxtn4 ucmlplTmLuLRFlUFs8UXr6 DBDeqGnxJzGeVBE9DxA8RL O4qMZpcP8e nCbxvotbgV0yPxa+RmVtYW rpLE45GP26xIPjc6K2dHL3 I9PbDLCswznkgcznnUV9HL EeVXLfwH88 jFPoONpgIj8yr0P5h349VO KkMJXocE11Lb0owGhlOQWe nRVFsE6qmfmmg4okgmsbIe AwMDAwMDt0 ZNn8XHHqwXyiIaJaGMB1Ex V5LMC2dTCtjI9xaMlstwnt lG5kXic+JF4gnxnaceL2WY 11PS75U0Oo PjwvdGFibGU+PHRhYmxlIH dpZHRoPScxMDAlJyBzdHls AW2fYi4lOXXqNCJxcJutcT McLtMoc7qs AKFhEDyuUD5vhRzmB6LijO C5KICrf5j6Ms78F56rJ7Ug dXA+XANluGV6uMY0sZ0oGo YzHcH2YJnf P387VvDveAAxSnnqv2qjx1 atuRo5UzNmBANtdvSpnPnp MMA3d0BqQz44Z38yITudMV RoPSIyMCUi APWgwOozok7dxE1vJo1+PG MxeNR1yNM8dN1cRiRdMdX0 CWkfJ414BkJgvOStEhsnP0 9bV9BhhHG+ TFIrXvr3WOWmdBesST0bjU NeXCcdAc9tLWY8RaVsBtMi MVrdC6VmROHcieqyvngslT J8EEGgKZGf bD34Sk3klMeqTj1gMIXfDZ W8NBVchXIsZ8DheS4yRlQf GRBwJHKrN7BxsULfRPyjB0 45SHafEyP8 IXLjagPuN3BmFJKwjFweWw F7r8I8Xv5QcCxgkIAeZE1x DuWyUBy4V2OkIxf3TNBkzO maPO4lrVRg ODcvJf1pdPefnWwqKM6jIN Qegewrn054LdKgv3drLAMf lIPzNOxpAJA8L76up0Q7JX MwMDAwMDA7 xJS0vR4gzDrdydmuxOBreY ozehUknObwEPckMKuzG838 WVIyePmuMkUXDqo1G4BtWw f2YWPvkVfh OD7mwEXtOOfzMj1omYlxtU hjUR8bWMWykjccb306KuPv m8yvQHOyuZOxUEuyLVH9J1 1yp4H5UIRr VMXpYBY2eHB3jD0ivStazr ogbGVmdDsgdmVydGljYWwt JUpkQ862GBDqfNhtZr6MUj s7R0EpMtx0 RLTlbUnbBV7lmPRnWIdmJu 5woDuhcTzkPQ1iKQPqxkkm e041OsEpf1faCCWwvXWeVP ngWQP5D20k d7H6IJTfQVSrAWV6iPV4eF 1hbGlnbjogbGVmdDsgdmVy cZwtLVnvAVbgH910ZDYtyK snPlBheWVy OjwvdGQ+KT64ok21I5GaYr rpUmu1JLTmBEA4xRS5yY9y WNGxLFrid0U5qRF1D5Yhml Vgyg8fy6cr YXBz (more content not included)... [facility] Coding Summary. CD:[id number] Gh 0bWw+PGhlYWQ+GZ7RZIBsQ 25dbEDisO2GX4pNVI1KQNS MGPMCHT7OYB5jvIT2FBcuX 2VybiAv ZtcgqJXjYF04NRh1CYB6cG heCHiyxY9omISsI8x4NwBj VH43cE87TSofIFCpMkL6Dy ZpbjsgbWFy V2sdFbQzhWYgAjr+PHRhYm xlIHdpZHRoPScxMDAlJyBz hEimPT7iWx4eVUZbMUCaeW xhcHNlOiBj c7biWLKrTXsoEO9azLbpA4 ShvPF6VPSnb9p8Bd42aRN+ XEBmPOT0kJtvWOmlr466Xt Fqx7prDCO1 rFDwWMctTEV8U06di8S7OP ThNIAzMFF3tNP2mV9bfCpj ymjjD7RlbEKkXqR6ITM9mM WxgL9ibCra goiztF1pRml+Y81LTZ2PIX WOEO8JNvy3N6QsIazpkPL+ XU43MZMuTJ55sCJxeJTxn9 xasSr0LsYt CQJqUDT0pMvjSMqad7MzHX YlA07hoECbx4P4DVLzqBjm wTMqMeNvgTF8yF1dXNtuzo vsk6wzghjd Igavl3nnan81eB05F12jFJ pyORNaFRG3SBBlSKEugOom pi1jnI7nWb4+QKqqk1kpo8 ebwVd5FhMm EDOgdsIuvLqdSCU1j0MfSb 77C9OxeAdee4TtWrr5uc26 hMHkr5E9eWP8QThdVCJojB 7hZYnmZaY4 EBXkDgBtlJ06jXMbNBrpMn 1biSxwbZajVB7uZQIhkjdd ZUAnvG6bKSWygUUanUziUG 4wNTBpbjtm w121UsAxDFI7BAVeoPNbZ2 EnzG0oRlRjDQUnPJUuA6Xs mEFlEZayZ916DGtsNyD1NS QipwJrQ6By NWXgcIkcNdI5u2D7Xr6Jw5 RdzverJLA2AVozBWSsVaP8 MkNdMgQ2Y9EeFuk7STBilC wcSQ9yS6Qj OSTxqwmjdtbwkHC3VWQmSO TlaD54fSPkOXgcZm9ko8I8 i083OXJkDZEhyZ79Pl0rvF ogMTBwdCBU aK3qpldfn1htalmfLqPvXT HuEVs4RYp8RVBnsVajIdIa BVN6AnS0JWU2zWBfzN1avD rtqvybzG1a Oyc+L86nuG5rPHF7KMX0be doIQUwdlKuDY99XX07M2Kt PjwvdGFibGU+PGRpdiBzdH exKR0rYgIw k1xhe5GbYRzdO2JmODIhQJ cmBbr7KOYpGWH7tYC6oQ0x OHWwAWins6B9aJC9P2Oqsx Wssi9gd9ot EJZzWBwpB12ftLUqp0O2PU DcaXM1VJRpqJirIiPocF80 Oyc+LAVotDmvg7FoZfjyg6 his4muwKv8 JzYuNAWeovTvrKawYWQ7o0 CaXx76F74rWDtxUXSgSWXx CAAnHEOdkXuonu6mvD4eBj 8+PGNvbCB3 iZO9eW8dLLMyKsK8PCnyO4 42MzWnjHQcPkmsn1igc8gs jSr9HhCtYPDyaeGjmIekQF D6h9YkNh08 W60eAQwwORZyUTJhWTDuEO HmvXkeng3maS9eVq4+PC9j q1alnn60jL24eAD+PHRkIH Y5vSuoLYdo CUVszN0tQBpgNbT2UCMvTu SieU49hKHiYCczJr3wkHhs mBinBP1dLOQqspgzs050Ex Qjn9tbTQEk uZVpCRcpBQF3G79gu6Y7YJ JaTWEnOKO6wMP8sO8ohXne bjogbGVmdDsgdmVydGljYW joBMkpT906 IHRvcDsnPlBhdGllbnQgTm RhNAn9K1KaGok2VLLtjYff WW9mhKHkHIijEa3ngJslhQ vqXO2nLWKw zxjbm155AhGak2pyBYMwsZ DkKAthYSA1L75ab2B9NIEu IEGoMPY2rHA2sR4vlYtcwk ogbGVmdDsg yjLiiDkyMGmgAVbiU465US RvcDsnPkJpcnRoIERhdGU6 AM92OG37lRQyd8Q7nGL7W0 BhZGRpbmct xarwpYG2ZFPhILMspS23Pb 8vpBmpZm6qMEMgYYK1KEUa rJCnS3WcyD6gUjFcXUBpNU ZsF8VoaHSv MEbcI029HLtaZpR2ILCawl ExI8AuLCNtcEbjJgG6i8D1 Gy7HU8X2EW04AI52vHXfg4 A3gMC3O9Jy HNIjtdnzxphxnHZ1KVGhUE TwcS80Vk5pgOqfXu2xUYCa EBC3AJJbiWFdK1XhzC2pMc AjMDAwMDAw U0TjhSNvXWmsY006GGxiMb T1PGVjtpTxH5XcVTRxpSjm GjE4n1P0Pj0HYKk7LX92ZU 61hZAar2P8 iFB2O6ThPTWitvhayiradV X0UMIkOXRtwT52Rf9lkFvt Yk2tIFEzCLZ8RFVwbWSeJ9 NxlX8oOjGz UIZvABBdZ5XoyCLfRGfpW7 48LVfzFjT5QFEtplEzK0Jz CJXbsUxcMiA2m3M4Us6XWK RvSY66WNM5 yVA9VQ91XY23M5AuCptdxS FibGU+PHRhYmxlIHdpZHRo CFdzSZNaTbDzhUgvCM2xIt 9yZGVyLWNv gZawxRTeIyUnx4neBCCnBN fqVH4rzNxxO2UhnKH0ZFEx z5l6Au84S87nJ6KjvMV+PG JzlZG3ySC3 kF7xFxOlDkM4ZBwnS787Xc ZizDOnLmjol6zcb9hsgMl0 CsV3TCMiklPalOndJKF1b2 EuFm59U94g IHdpZHRoPSIxNSUiIHZhbG qdpk5rcI7zYq7+PGNvbCB3 vKH8tF0aZxSnLtE5GWvoK4 49InRvcCIv Nfgpr2upr6hscBf2SnOmWL GyozYbwEkmFYY5a6DvIt85 J9KmzXnab5JpTae0gb01jI Okc7I9gST0 W3WiDFIdlyhdzOKtjRlfYJ 0eMBIsgtdiZCMaxT0qJXPx H5n5XvGuIvI1IHysR7Snze D8KPRhvMEg RPnqNTD0Q03aj4R6NLRxPG SqNBF2jPT4xA1dxZiakrki bGVmdDsgdmVydGljYWwtYW upB763YLFt bZjzOIOrsX5kSFDfmQCdqG qkRG9hUKDjzylwEa6GQFuI ToniWrLKK7zBMPXBSV50MG 47aWXwv9O9 xIA7E6OkIARdmbzercnafQ Z3DZWkZLSbbN74hDQbYDxg Fk2vl5R8j566VHLbMYOpfI 10Cd7wkUab XEZxvGIXjU6vohegw1szcm qbGaJnUPIwAIx2NUe8EBXv uLzkFiUqHRW3DqY6PIO0lP DniO3psZtk fnvnoP2oKjj+MDgvMjEvMT q7WIqduIW+PESsMDT8dVqv UOlsIFQenS8uRHDcP9d3Yg SiIjA6BQcb P5PyWRBndjsxIs82oE7nDs GdUeM8LJzaB1HufbA7KBLf iCBbWSvzVIT8L49io9K1WW MwMDAwMDA7 tUN7gC0orTqojnevpTRupA stmyRdnWlbGKoaYJhqF665 IHRvcDsnPjMyIFllYXJzPC 80PO68fVNn p9Z8iQQ7H7MmNJYvxlfdiy lbpCX3ZJNwXFUinV45tECt FNrcCk5hh6A8s093UYFmZL RzsW61Ve6b wVusAEMdjUIOmR9edfnhe2 ytqwpbNvMbZLDnUTo7KGs1 MOBhxHboEcGkSJB2UrC9CS V4bPXvmI9l zCpjrxhdrY5xFgu+RmVtYW ccJK64IJ76qFBiz1C1vZR5 J1CdWSKiwlljrvpleER4NN MaZSUmdX93 aSIvBHqzFd8dx1F4h489GK PpOBTtdD98Iv3ckJreSNDo jWWKgQ7nybnhg9mdafzmBc AwMDAwMDt0 PQs1RQKppTnmFmDlBLU8Qd R5CES1dPVvpP1oqKaiyyqs kE4qPvg+LI6otpzjswM0ZI 40NZ18T2Dt PjwvdGFibGU+PHRhYmxlIH dpZHRoPScxMDAlJyBzdHls ZR9oCj1nEKLtKTHszCjugI SiGzVyk4bv HUOkWOziNC2sxCalV3NazP B4APYjd3j5Lm35P23jZ8Vx dXA+JXSsmLT4cCX7kK5xWu MxVnS0VDhq G399SnIveHGlIelcm3ivr7 tnhFj4GzWgNOJbaoZhwFdi IDL4a6NeYn95W69iDSvyEG RoPSIyMCUi HSQjhUjzfh0soM8gWq6+PG BcgYJ7xNP2wL4kUcXuTjJ4 XQqrU977NxOxgIZmDfxsO1 9yE0GwpEK+ RXUlQay2ZHNakTeiHZ0ztY QqAOuuFf1pWDS8RlBqHsZv OUvaR4HgXQOzakfbztxajK M2YDEsUDTm lD16Ee1egLboGj5oKMKiPX H9CXFnkVHcN6ZqlF1sYuZp DZEeGGPeC1YaaIKvKJbqK6 39ZIlnJdE5 UXBpxvXwZ5JjNNEokVtxAi K0m3I9Dc0MeJlnaWZfLV9h CnGvQRt6G2FdNco2NTLgiA egDI4phAPl FFaxAx8qfXmtbKdaTW7aVP Kaebvhm967NvHkx1bfOWMy rXVnNOhzOEU9S43du6J3TQ MwMDAwMDA7 sTP7oK9klGuxqyeknGSmiY rjamHimQfgFKqiLPjxQ744 OQRcnEacLiTPAuj7O6GoXa j3JNZbiIwo YH5qlTCcORkaOe8elLjomT ftEM3jCCMuobmep223WfTu l7xvXRUhxWAfMQvkSKE5A3 8ro1D5RISj QRTiQWF1vED5tK9hrNustl ogbGVmdDsgdmVydGljYWwt AEwaO320OYImjVlhKa0YAq t5D0JzLvc6 WPZzoOszRH4xdOYxTOqjKy 4ovKkvvPcdDJ5nLQPsjgcc o770UjRiu5exVJAhaFUmIC eyOXI5X36e o2T7AAXtKYAmPNG7zBM5xD 1hbGlnbjogbGVmdDsgdmVy oQdpHUngRSjfF185SPLckC snPlBheWVy OjwvdGQ+IA82ea83E7MpTg xlZec8TSYvKEV9rKG9yL2d SUKsVNbpf9L8pKP3N2Vsuq Lodk8qq5pz YXBz (more content not included)... Normal [facility] Auto Diffon 03-12-2021 Basophils/100 WBC (Bld) 0.2 % Normal 0.0-2.0 [facility] Comment on above: Order Comment: Order Added by Discern Expert. Performed By: #### 2 431244, 3438860, 3541943, 3084498, 58831476, 04186722, 31752784 ####[facility] [address] [place] [address] Basophils/Leukocytes Auto (Bld) [Pure # fraction] 0.0 E9/L Normal 0.0-0.2 [facility] Comment on above: Order Comment: Order Added by Discern Expert. Performed By: #### 2 032153, 7274875, 0913550, 6422448, 55209942, 92023448, 39628943 ####[address] [address] Eosinophils/100 WBC (Bld) 0.0 % Normal 0.0-8.0 [facility] Comment on above: Order Comment: Order Added by Discern Expert. Performed By: #### 2 744914, 0397883, 2445439, 1828780, 97661907, 77712822, 72794979 ####[address] [place] [address] Eosinophils/Leukocyt es Auto (Bld) [Pure # fraction] 0.0 E9/L Normal 0.0-0.5 [facility] Comment on above: Order Comment: Order Added by Discern Expert. Performed By: #### 2 291890, 6992092, 7924923, 9639576, 37874042, 17122766, 75628942 ####[address] [address] Lymphocytes/100 WBC (Bld) 19.4 % Normal 14.0-50.0 [facility] Comment on above: Order Comment: Order Added by Discern Expert. Performed By: #### 2 331473, 0718671, 1829774, 6613227, 52396401, 22358516, 45712520 ####[facility] [address] [place] [address] Lymphocytes/Leukocyt es Auto (Bld) [Pure # fraction] 1.0 E9/L Normal 1.0-4.0 [facility] Comment on above: Order Comment: Order Added by Discern Expert. Performed By: #### 2 261735, 8152054, 5105334, 6770562, 04413147, 19081665, 19823130 ####[address] [place] [address] Monocytes/100 WBC (Bld) 6.9 % Normal 4.0-14.0 [facility] Comment on above: Order Comment: Order Added by Discern Expert. Performed By: #### 2 255249, 2487016, 8536535, 1445270, 53835092, 77696851, 70529100 ####[address] [place] [address] Monocytes/Leukocytes Auto (Bld) [Pure # fraction] 0.3 E9/L Normal 0.2-1.0 [facility] Comment on above: Order Comment: Order Added by Discern Expert. Performed By: #### 2 209622, 6340426, 4362896, 3947159, 19334561, 46644569, 37136912 ####[address] [place] [address] Neutrophils/100 WBC (Bld) 73.5 % Normal 36.0-75.0 [facility] Comment on above: Order Comment: Order Added by Discern Expert. Performed By: #### 2 262094, 9915732, 9879061, 9688559, 97945866, 47879898, 09927284 ####[address] [place] [address] Neutrophils/Leukocyt es Auto (Bld) [Pure # fraction] 3.6 E9/L Normal 2.0-7.5 [facility] Comment on above: Order Comment: Order Added by Discern Expert. Performed By: #### 2 717621, 7510394, 5274328, 8462263, 44332945, 92390116, 46192652 ####[facility] [address] [place] [address] BMPon 03-12-2021 Creatinine [Mass/Vol] 0.8 mg/dL Normal 0.5-1.3 [facility] Comment on above: Performed By: #### 2 644440, 2313660, 9564191, 8555032, 65558329, 64459571, 55312407 ####[facility] [address] [place] [address] Urea nitrogen [Mass/Vol] 8 mg/dL Normal 5-21 [facility] Comment on above: Performed By: #### 2 557403, 2010327, 6083024, 9545882, 41711224, 42531459, 63138997 ####[address] [address] Urea nitrogen/Creatinine [Mass ratio] 10 No Units Normal 10-20 [facility] Comment on above: Performed By: #### 2 026634, 5921130, 7357855, 4385777, 59389169, 35942360, 66673325 ####[address] [place] [address] Anion gap [Moles/Vol] 16 mmol/L Normal 6-16 [facility] Comment on above: Performed By: #### 2 048522, 6265842, 6781697, 8133352, 30832087, 89033129, 70604554 ####[address] [place] [address] Calcium [Mass/Vol] 8.3 mg/dL Low 8.9-11.1 [facility] Comment on above: Performed By: #### 2 928629, 4933513, 9482484, 2506701, 00616463, 72982380, 26970731 ####[address] [place] [address] Chloride [Moles/Vol] 99 mmol/L Low 101-111 [facility] Comment on above: Performed By: #### 2 943864, 6207647, 5091023, 5915207, 12222065, 47570195, 34438109 ####[facility] [address] [place] [address] CO2 [Moles/Vol] 21 mmol/L Normal 21-31 [facility] Comment on above: Performed By: #### 2 145151, 1740118, 1237438, 3080277, 26468009, 40524420, 02950870 ####[facility] [address] [place] [address] Glucose [Mass/Vol] 127 mg/dL Normal 55-199 [facility] Comment on above: Result Comment: If t his glucose result represents a fasting glucose, interpretation should refer to the following reference range: 55-99 mg/dL Performed By: #### 2 745939, 6701061, 1668246, 2992300, 58317508, 34637432, 50160366 ####[facility] [address] [place] [address] Potassium [Moles/Vol] 3.5 mmol/L Normal 3.5-5.3 [facility] Comment on above: Performed By: #### 2 689865, 3230445, 4869753, 7047131, 57913084, 20538078, 81221503 ####[facility] [address] [place] [address] Sodium [Moles/Vol] 132 mmol/L Low 135-145 [facility] Comment on above: Performed By: #### 2 416216, 0179050, 2549151, 6180411, 20506334, 54280383, 90139821 ####[facility] [address] [place] [address] CBC w/ Auto Diffon 1 Erythrocyte distribution width (RBC) [Ratio] 14.2 % Normal 10.9-14.2 [facility] Comment on above: Performed By: #### 2 245143, 7454166, 4135685, 1047415, 25935276, 40714573, 24343336 ####[facility] [address] [place] [address] Hematocrit (Bld) [Volume fraction] 39.9 % Normal 34.0-46.0 [facility] Comment on above: Performed By: #### 2 083094, 2901206, 9347774, 6502828, 03090694, 70513734, 54263002 ####[facility] [address] [place] [address] Hemoglobin (Bld) [Mass/Vol] 13.0 g/dL Normal 12.0-16.0 [facility] Comment on above: Performed By: #### 2 430077, 4824117, 5107198, 0794425, 26404181, 09021787, 63441690 ####[address] [address] MCH (RBC) [Entitic mass] 27.3 pg Normal 27.0-34.0 [facility] Comment on above: Performed By: #### 2 925304, 1828123, 5588376, 5428649, 27933222, 05299481, 59203530 ####[address] [place] [address] MCHC (RBC) [Mass/Vol] 32.7 g/dL Normal 31.4-36.0 [facility] Comment on above: Performed By: #### 2 804526, 1190841, 2054956, 4895101, 70357430, 43095338, 89628755 ####[address] [address] MCV (RBC) [Entitic vol] 83.4 fL Normal 80.0-100.0 [facility] Comment on above: Performed By: #### 2 816650, 0183539, 9579250, 8267198, 67183096, 00206551, 03918575 ####[facility] [address] [place] [address] Platelet mean volume (Bld) [Entitic vol] 7.8 fL Normal 6.4-10.8 [facility] Comment on above: Performed By: #### 2 060382, 3798725, 4014396, 4656100, 94147056, 78039352, 49353388 ####[facility] [address] [place] [address] Platelets (Bld) [#/Vol] 188.0 E9/L Normal 150.0-500.0 [facility] Comment on above: Performed By: #### 2 141840, 5824622, 2089293, 5938358, 91139440, 66254328, 24796207 ####[address] [address] RBC (Bld) [#/Vol] 4.8 E12/L Normal 4.3-5.9 [facility] Comment on above: Performed By: #### 2 398178, 3098314, 0959150, 8110131, 93937074, 83301615, 53162978 ####[address] [place] [address] WBC corrected for nucl RBC Auto (Bld) [#/Vol] 4.9 E9/L Normal 4.0-11.0 [facility] Comment on above: Performed By: #### 2 871437, 5523433, 7865508, 0508331, 24692875, 44614246, 38339979 ####[address] [address] CTA Cheston 03-12-2021 CTA Chest Exam Date/Time: 03/12/2021 12:11 EST Reason for Exam: PE suspected, high prob;Other (please specify) Report IMPRESSION: NO CT EVIDENCE OF PULMONARY EMBOLISM. BILATERAL PNEUMONIA. CLINICAL HISTORY: PE suspected, high prob. Shortness of breath. Covid 19 positive. COMMENT: Axial images were obtained after the rapid injection of IV contrast with narrow collimation and reconstructed at a narrow interval. Coronal and sagittal reconstructions were performed. On the PACS, images were reviewed in cine display and using MIP postprocessing. The pulmonary arteries are contrast opacified and no intraluminal filling defects are noted. The thoracic aorta is normal, without evidence of aneurysm or dissection. The heart is normal in size. No pericardial effusion is noted. There is no mediastinal nor hilar lymphadenopathy. There are multiple focal areas of ground glass opacity, scattered in all lobes of both lungs, mainly peripheral in location. The groundglass opacities are nonspecific, but in light of clinical history, are consistent with Covid 19 pneumonia. No pneumothorax, no lung mass, nor pleural effusion is evident. There are surgical clips at the gallbladder fossa, from prior cholecystectomy. All CT scans at this facility use dose modulation, iterative reconstruction, and/or weight based dosing when appropriate to reduce radiation dose to as low as reasonably achievable. FINAL REPORT Dictated: 03/12/2021 12:33 pm Toi Romero M.D. Signed (Electronic Signature): 03/12/2021 12:33 pm Signed by: Toi Romero M.D. Transcribed by: ROBERT Technologist: CORINNA Technical Comments GFR (mL/min/1/73m2) >60 Contrast: Isovue 370 Contrast amount in ml's: 79 [facility] Consent for Treatmenton Consent for Treatment [id number] 0CD:127 [facility] D-Dimeron 03-12-2021 Fibrin D-dimer FEU (PPP) [Mass/Vol] 586 [id number] Abnormal 215-500 [facility] Comment on above: Result Comment: Resu lts Verified By Repeat Analysis Results Called To DANIEL ADAMS/CONOR By QUETA And Read Back For Confirmation On 03/12/2021 10:17:11 EST. This assay is intended for use as an aid in the diagnosis of DVT or PE. These conditions cannot be excluded with certainty solely on the basis of a D-dimer concentration being within the reference range This D-Dimer assay may be used in conjunction with a non-high clinical pretest probability assessment to exclude deep-vein thrombosis(DVT). For exclusion of venous thrombosis or pulmonary embolism the analyte D-Dimer should not be used as an aid in patients with: Therapeutic dose anticoagulant therapy for >24 hours Fibrinolytic therapy within previous 7 days Trauma or surgery within previous 4 weeks Disseminated malignacies Aortic aneurysm Sepsis, severe infections, pneumonia, severe skin infections Liver cirrhosis Performed By: #### 2 [id number], [id number], [id number], [id number], [id number], [id number], [id number] ####[facility] [address] [place] [address] Discharge Instructionson Discharge Instructions [id number]. [id number]:127 [facility] ED Clinical Summaryon 2020 ED Clinical Summary [address] [address] ED Clinical Summary Person Information Name: ED MURPHY Judy/[facility] Age: 30 Years : 1990 Sex: Female Language: Djiboutian PCP: Tricia Dewey CNP Marital Status: Phone: [phone] MRN: Visit Id: Visit Reason: Fever; Diarrhea; Shortness of breath; COVID +, SOB, NEAR SYNCOPE Speciality: Acuity: 3 Enc Type: Emergency Med Service: Emergency Arrival: 03/12/2021 08:55:19 Discharge: 03/12/2021 12:55:50 LOS: 000 04:00 Checkin: 03/12/2021 08:55:19 Checkout: 03/12/2021 12:55:50 Dispo Type: Home (Routine DC) EVENTS: Event Name Event Status Request Date/Time Start Date/Time Complete Date/Time Arrive Complete 03/12/2021 08:55:19 03/12/2021 08:55:19 03/12/2021 08:55:19 Document Home Meds Request 03/12/2021 08:55:19 Triage Complete 03/12/2021 08:55:19 03/12/2021 09:05:07 03/12/2021 09:05:07 Bed Assign Complete 03/12/2021 09:00:31 03/12/2021 09:00:31 03/12/2021 09:00:31 Dr Exam Complete 03/12/2021 09:00:31 03/12/2021 09:01:36 03/12/2021 09:01:36 RN Exam Complete 03/12/2021 09:00:31 03/12/2021 09:34:53 03/12/2021 09:34:53 Registration Complete 03/12/2021 09:01:36 03/12/2021 09:36:47 03/12/2021 09:36:47 Patient Care Request 03/12/2021 09:05:08 Patient Isolation Request 03/12/2021 09:05:08 EKG Complete 03/12/2021 09:05:37 03/12/2021 09:07:06 Meds Admin Complete 03/12/2021 09:09:39 03/12/2021 09:37:49 Pending Labs Complete 03/12/2021 09:09:39 03/12/2021 10:17:25 Lab Complete 03/12/2021 09:09:39 03/12/2021 10:17:25 Patient Care Request 03/12/2021 09:09:39 RT Request 03/12/2021 09:09:39 X-Ray Complete 03/12/2021 09:09:39 03/12/2021 09:28:32 03/12/2021 09:37:03 Reg Complete Request 03/12/2021 09:36:47 Reg Bed Request Complete 03/12/2021 09:36:47 03/12/2021 09:36:47 03/12/2021 09:36:47 Wet Read Complete 03/12/2021 09:37:03 03/12/2021 10:18:19 03/12/2021 10:18:19 Pending Labs Complete 03/12/2021 09:38:56 03/12/2021 09:38:56 03/12/2021 10:01:24 Lab Complete 03/12/2021 09:38:56 03/12/2021 09:38:56 03/12/2021 10:01:24 Pending Labs Complete 03/12/2021 09:50:57 03/12/2021 09:50:57 03/12/2021 09:51:04 Lab Complete 03/12/2021 09:50:57 03/12/2021 09:50:57 03/12/2021 09:51:04 CT Complete 03/12/2021 10:18:46 03/12/2021 10:32:49 03/12/2021 12:11:01 Pending Labs Complete 03/12/2021 10:41:41 03/12/2021 10:41:41 03/12/2021 10:41:42 Patient Care Request 03/12/2021 11:09:17 Patient Isolation Request 03/12/2021 11:09:17 Discharge Complete 03/12/2021 12:43:45 03/12/2021 12:55:56 03/12/2021 12:55:56 Transfer Complete 03/12/2021 12:55:56 03/12/2021 12:55:56 03/12/2021 12:55:56 ADDRESS: [address] [place] [phone] PHYS DOC NOTES: MEDICAL INFORMATION: Prescriptions Given: New Medications [facility], [address] [place], [place] [id number], [phone] albuterol (albuterol CFC free 90 mcg/inh Inh Aer w/Adapt 8 gm (Ventolin)) 2 Puffs Inhalation 4 times a day. Refills: 0. azithromycin (azithromycin 250 mg Tab) 250 Milligram By Mouth As Directed. Take two tabs by mouth on day one, then one tab daily. Refills: 0. dexamethasone (dexamethasone 6 mg oral tablet) 1 Tablets By Mouth every day for 7 Days. Refills: 0. Medications to Continue with No Changes Other Medications ibuprofen (ibuprofen 400 mg Tab) 1 Tablets By Mouth every 6 hours as needed as needed for pain. with food or milk. Refills: 0. PATIENT EDUCATION INFORMATION: Instructions: Follow up: With: Address: When: Tricia Dewey [address] [place] [address], [facility], [address] [place], [place] [id number] Business (1) In 3 days DIAGNOSIS: COVID-19; Near syncope [facility] ED Note-Physicianon 03-12-20 ED Note-Physician Basic Information Time Seen: Tal Gonzalez DO 03/12/2021 09:01 Chief Complaint Pt states shortness of breath started today. Pt denies vomiting. Pt states diarrhea stated Monday. Pt states fever started Monday. History of Present Illness 30 female presents the emergency department with near syncope and shortness of breath. Patient states that she is on day 6 of her Covid illness she was diagnosed 4 days ago with culture positive Covid test. Since then she has developed some intermittent shortness of breath that became worse today when she fell like she was going to pass out. She does describe some pleuritic chest discomfort associated with this as well. She denies any vomiting but has had symptoms of reflux and has had significant diarrhea as well. Only abdominal pain is related to the diarrhea. She has had associated fever since Monday as well. She is not currently taking any medications for this. She denies any history or risk factors for DVT or PE other than diagnosis of COVID-19. Patient denies any chance of stating recent menstrual cycle. She denies any other history of cardiac or pulmonary disease. No other aggravating or relieving factors no other associated symptoms no other prior treatments or complaints. Family: Reviewed and noncontributory Social: lives at home Review of systems negative unless otherwise specified in the HPI. Physical Exam Vitals & Measurements T: 36.6 ?C(Oral) HR: 101(Peripheral) RR: 18 BP: 114/79 SpO2: 97% HT: 173 cm HT: 173.0 cm WT: 125 kg WT: 125.0 kg BMI: 41.77 General: The patient appears well and in no apparent distress. Patient is resting comfortably on cart. Skin: Warm, dry, no pallor noted. Head: Normocephalic, atraumatic Neck: No JVD Eye: PERRLA, EOMI ENT: Moist mucus membranes Cardiovascular: Slightly tachycardic rates regular rhythm with normal peripheral perfusion Respiratory: No respiratory distress no accessory muscle use no obvious audible wheezing Chest Wall: no deformity Musculoskeletal: normal ROM, no deformity, no swelling negative bilateral Homans' sign GI: No obvious distention soft nontender nondistended no guarding rebounding or rigidity Neurological: A&O moves all extremities equal strength and symmetry Psychiatric: Cooperative and appropriate Medical Decision Making Work-up in the ER has been reviewed and noted. CTA of the chest reveals no evidence of PE. The patient does have bilateral pneumonia likely secondary to her known COVID-19. She is not hypoxic here therefore she is discharged home on albuterol Decadron and given prescription for Zithromax follow-up in the outpatient setting return to ER symptoms change or worsen. Assessment/Plan COVID-19 (U07.1: COVID-19) Near syncope (R55: Syncope and collapse) Orders: albuterol, 2 puff(s), Inhalation, QID, 8 gram, Refill(s) 0, [facility], 173, cm, 03/12/21 9:08:00 EST, Height/Length Dosing, 125, kg, 03/12/21 9:08:00 EST, Weight Dosing azithromycin, 250 mg, Oral, As Directed, Take two tabs by mouth on day one, then one tab daily, # 6 tab(s), Refills(s) 0, Pharmacy: [facility], 173, cm, 03/12/21 9:08:00 EST, Height/Length Dosing, 125, kg, 03/12/21 9:08:00 EST, Weight Dosing dexamethasone, 6 mg = 1 tab(s), Oral, Daily, X 7 day(s), # 7 tab(s), Refills(s) 0, Pharmacy: [facility], 173, cm, 03/12/21 9:08:00 EST, Height/Length Dosing, 125, kg, 03/12/21 9:08:00 EST, Weight Dosing Sodium Chloride 0.9% intravenous solution, 500 mL, Soln-IV, IV, Once, Stop date 03/12/21 9:09:00 EST, STAT, Start date 03/12/21 9:09:00 EST, 500 mL/hr, Infuse over 1, hour(s) Automated Diff Basic Metabolic Panel CBC w/ Auto Diff CTA Chest D-Dimer ECG 12 Lead Adult ED Cardiac Monitoring eGFR Extra SST Tube Oxygen Saturation Oxygen Therapy PT & PTT Saline Lock Insert Troponin 0 Hr. XR Chest Single View Medications Administered Given Sodium Chloride 0.9% IV Lizbeth 500 mL [F], 500 mL, IV Disposition Plan Discharge Prescription List Prescriptions albuterol CFC free 90 mcg/inh Inh Aer w/Adapt 8 gm (Ventolin), 2 puff(s), Inhalation, QID azithromycin 250 mg Tab, 250 mg, Oral, As Directed dexamethasone 6 mg oral tablet, 6 mg= 1 tab(s), Oral, Daily Follow-up With When Contact Information Tricia Dewey In 3 days [address] [facility], [address] [place] [address]- Business (1) Additional Instructions: Problem List/Past Medical History Ongoing No qualifying data Historical Herpes genitalis Miscarriage Procedure/Surgical History Laparoscopic cholecystectomy (03/21/2017), section (03/09/2015), delivery (03/04/2011), Extraction of wisdom tooth. Medications Inpatient NS 500 ml Bolus, 500 mL, IV, Once Home ibuprofen 400 mg Tab, 400 mg= 1 tab(s), Oral, q6hr, PRN Allergies Duricef (hives, rash) Latex (Hives) Social History Alcohol - Denies Alcohol Use, 07/08/2010 Past, denies, (more content not included)... [facility] Comment on above: Result Comment: Elec tronically Signed By: Tal Gonzalez DO\.br\Date and Time Signed: 03/12/21 12:46 EST ED Patient Education Noteon 03-12-2021 ED Patient Education Note [facility] ED Patient Summaryon 021 ED Patient Summary [facility] [address] [place], [place] [address] Patient Discharge Instructions Person Information Name: ED MURPHY Age: 30 Years Arrival Date: 03/12/2021 08:55:19 Discharge Diagnosis: COVID-19; Near syncope Primary Care Physician: Tricia Dewey CNP Provider Information Primary Provider: Tal Gonzalez DO Advanced Reinforcement Maker:None The exam and treatment you received in the Emergency Department were for an urgent problem and are not intended as complete care. It is important that you follow up with a doctor, nurse practitioner, or physician?s teachers' assistant for ongoing care. If your symptoms become worse or you do not improve as expected and you are unable to reach your usual health care provider, you should return to the Emergency Department. We are available 24 hours a day. ED MURPHY has been given the following list of patient education materials, prescriptions and follow-up instructions: Follow-up Instructions: With: Address: When: Tricia Dewey [address] [place] [address], [address] [place], [place] [id number] Business (1) In 3 days In the event that this physician does not participate in your insurance network, please consult with your insurance company to find a nearby participating provider. Patient Education Materials: A MESSAGE TO ALL PATIENTS REGARDING OPIOIDS PRESCRIPTION OPIOIDS: WHAT YOU NEED TO KNOW Prescription opioids can be used to help relieve jaqpskqy-ul-pbuhke pain and are often prescribed following a surgery or injury, or for certain health conditions. These medications can be an important part of the treatment but also come with serious risks. It is important to work with your healthcare provider to make sure you are getting the safest, most effective care. WHAT ARE THE RISKS AND SIDE EFFECTS OF OPIOID USE? Prescription opioids carry serious risks of addiction and overdose, especially with prolonged use. An opioid overdose, often marked by slowed breathing, can cause sudden . The use of prescription opioids can have a number of side effects as well, even when taken as directed: ? Tolerance?meaning you might need to take more of the medication for the same pain relief ? Physical dependence?meaning you have symptoms of withdrawal when a medication is stopped ? Increased sensitivity to pain ? Constipation ? Nausea, vomiting, and dry mouth ? Sleepiness and dizziness ? Confusion ? Depression ? Low levels of testosterone that can result in lower sex drive, energy, and strength ? Itching and sweating RISKS ARE GREATER WITH: ? History of drug misuse, substance use disorder, or overdose ? Mental health conditions (such as depression or anxiety) ? Sleep apnea ? Older age (65 years and older) ? Avoid alcohol while taking prescription opioids. Also, unless specifically advised by your health care provider, medications to avoid include: ? Benzodiazepines (such as Xanax or Valium) ? Muscle relaxants (such as Soma or Flexeril) ? Hypnotics (such as Ambien or Lunesta) ? Other prescription opioids KNOW YOUR OPTIONS Talk to your health care provider about ways to manage your pain that don?t involve prescription opioids. Some of these options may actually work better and have fewer risks and side effects. Options may include: ? Pain relievers such as acetaminophen, ibuprofen, and naproxen ? Some medication that are also used for depression or seizures ? Physical therapy and exercise ? Cognitive behavioral therapy, a psychological, goal-directed approach, in which patients learn how to modify physical, behavioral, and emotional triggers of pain and stress. IF YOU ARE PRESCRIBED OPIOIDS FOR PAIN: ? Never take opioids in greater amounts or more often than prescribed. ? Follow up with your primary health care provider. o Work together to create a plan on how to manage your pain. o Talk about ways to help manage your pain that don?t involve prescription opioids. o Talk about any and all concerns and side effects. ? Help prevent misuse and abuse o Never sell or share prescription opioids. o Never use another person?s prescription opioids. ? Store prescription opioids in a secure place and out of reach of others (this may include visitors, children, friends, and family). ? Safely dispose of unused prescription opioids: Find your community drug take-back program or your pharmacy mail-back program, or flush them down the toilet, following guidance from the Food and Drug Administration (www.fda.gov/Drugs/Res ourcesForYou). ? Visit www.cdc.gov/drugoverdo se to learn about the risks of opioids abuse and overdose. ? If you believe you may be struggling with addiction, tell your health childcare worker and ask for guidance or call [facility] National Helpline at 3-459-958-FJII. c Source: US Department of Health and Human (more content not included)... [facility] PT & PTTon 03-12-2021 aPTT Coag (PPP) [Time] 30.8 second(s) Normal 25.1-36.5 [facility] Comment on above: Result Comment: Hepa rin therapeutic range (represented by Anti-Factor Xa activity of 0.2 - 0.4 U/mL) corresponds to PTT of 56.6 - 109.0 sec. Performed By: #### 2 513796, 0000950, 0989546, 9346951, [id number], [id number], [id number] ####[facility] [address] [place] [address] INR Coag (PPP) [Relative time] 1.2 {INR} Invalid Interpretation Code [facility] Comment on above: Result Comment: INR results are specifically intended to assess patients stabilized on long-term Anticoagulation therapy suggested INR?s ?Less Intensive Anticoagulation? 2.0 ? 3.0 Conventional Range 3.0 ? 4.5 Performed By: #### 2 [id number], 1981504, 8834385, 6270571, 83953780, [id number], [id number] ####[facility] [address] [place] [address] PT Coag (PPP) [Time] 14.1 second(s) High 10.2-12.9 [facility] Comment on above: Performed By: #### 2 226164, 6122928, 8744972, 0191434, 75213924, [id number], [id number] ####[facility] [address] [place] [address] Troponin 0 Hr.on 03-12-2021 Troponin I.cardiac [Mass/Vol] 3.90 pg/mL Low 10.10-27.10 [facility] Comment on above: Result Comment: The 95% CI (Confidence Interval) PPV (Positive Predictive Value) for myocardial infarction in females is 38 pg/mL, in males 51 pg/mL. The results should be used in conjunction with clinical conditions of myocardial infarction. (Access High Sensitivity Troponin I Instructions For Use, Randell Cony, November 2017) Performed By: #### 2 [id number], 3869688, 0649217, 3374434, 10654347, [id number], [id number] ####[facility] [address] [place] [address] XR Chest Single Viewon 03-12 XR Chest Single View Exam Date/Time: 03/12/2021 09:37 EST Reason for Exam: Chest pain Report IMPRESSION: BILATERAL PNEUMONIA. EXAM: XR Chest Single View History: Chest pain. Shortness of breath. Technique: Portable AP view of the chest. Comparison: Chest x-rays 03/10/2021 Findings: The cardiomediastinal silhouette is within normal limits. Small patchy bilateral airspace opacities most significant within the lung bases. No pneumothorax or pleural effusion. Bones of the thorax appear intact. FINAL REPORT Dictated: 03/12/2021 10:55 am Jimmy Davis DO Signed (Electronic Signature): 03/12/2021 10:55 am Signed by: Jimmy Davis DO Transcribed by: ROBERT Technologist: FAUSTINA [facility] eGFRon 03-12-2021 GFR/1.73 sq M.predicted among blacks MDRD (S/P/Bld) [Vol rate/Area] mL/min/{1.73_m2} Normal >=59 [facility] Comment on above: Order Comment: Order added by Discern Expert. Result Comment: eGFR is race adjusted. AA=. Performed By: #### 2 [id number], 0760277, 2050282, 0266458, [id number], [id number], [id number] ####[facility] [address] [place] [address] GFR/1.73 sq M.predicted among non-blacks MDRD (S/P/Bld) [Vol rate/Area] mL/min/{1.73_m2} Normal >=59 [facility] Comment on above: Order Comment: Order added by Discern Expert. Result Comment: Beef Cattle Specialist nandini kidney disease could be indicated at eGFR's of less than 60 mL/min/1.73m2. Kidney failure is indicated at less than 15 mL/min/1.73m2. Performed By: #### 2 969714, 7881644, 6886477, 8205148, 59151930, [id number], [id number] ####[facility] [address] [place] [address] Consent for Treatmenton Consent for Treatment [id number] 0CD:127 [facility] Physician Orderon 03-10-2021 Physician Order [id number]. 00CD:127 [facility] XR Chest 2 Viewson XR Chest 2 Views Exam Date/Time: 03/10/2021 15:07 EST Reason for Exam: [id number] Report IMPRESSION: NO RADIOGRAPHIC EVIDENCE OF ACUTE INTRATHORACIC PROCESS. EXAMINATION: XR Chest 2 Views HISTORY: Shortness of breath. TECHNIQUE: Frontal and lateral views of the chest. COMPARISON: None available FINDINGS: Cardiomediastinal silhouette is within normal limits. No pneumothorax, pleural effusion, or consolidation. Bones of the thorax appear intact. FINAL REPORT Dictated: 03/10/2021 4:27 pm Jimmy Davis DO Signed (Electronic Signature): 03/10/2021 4:27 pm Signed by: Jimmy Davis DO Transcribed by: ROBERT Technologist: ISAAC [facility] Vital Signs Date Time Vital Sign Value Performing Clinician Oseas dobbins 02-15-2024 14:26-0500 Body mass index (BMI) [Ratio] 41.77 kg/m2 Flower DE LA PAZ Work Phone: [facility] 02-15-2024 14:26-0500 Body weight 126.46 kg Flower Otero PA Work Phone: [facility] 02-15-2024 14:26-0500 Diastolic blood pressure 80 mm[Hg] Flower Otero PA Work Phone: [facility] 02-15-2024 14:26-0500 Systolic blood pressure 120 mm[Hg] Flower Otero PA Work Phone: [facility] 02-12-2024 08:50-0500 Body mass index (BMI) [Ratio] 41.8 kg/m2 Aquiles Adrian DO Work Phone: [facility] 02-12-2024 08:50-0500 Body weight 126.55 kg Aquiles Adrian DO Work Phone: [facility] 02-12-2024 08:50-0500 Diastolic blood pressure 72 mm[Hg] Aquiles Adrian DO Work Phone: [facility] 02-12-2024 08:50-0500 Systolic blood pressure 118 mm[Hg] Aquiles Adrian DO Work Phone: [facility] Healthcare Encounters Encounter Date Encounter Type Care Provider Facility Start: 02-15-2024 End: 02-15-2024 Bamboo flowsheet Flower DE LA PAZ Work Phone: [facility] Start: 02-15-2024 End: 02-15-2024 Bamboo flowsheet Flower DE LA PAZ Work Phone: [facility] Start: 02-15-2024 End: 02-15-2024 Patient encounter procedure Flower DE LA PAZ Work Phone: [facility] Work Phone: Start: 02-15-2024 End: 02-15-2024 Periodic preventive med est patient 18-39 yrs Flower DE LA PAZ Work Phone: [facility] Comment on above: Well woman exam with routine gynecological exam Start: 02-15-2024 End: 02-15-2024 ambulatory FLOWER OTERO Not Available Start: 02-12-2024 End: 02-12-2024 Bamboo flowsheet Aquiles Adrian DO Work Phone: [facility] Start: 02-12-2024 End: 02-12-2024 Bamboo flowsheet Aquiles Adrian DO Work Phone: [facility] Start: 02-12-2024 End: 02-12-2024 Office outpatient visit 15 minutes Aquiles Adrian DO Work Phone: [facility] Comment on above: Anovulation Start: 02-12-2024 End: 02-12-2024 ambulatory AQUILES CAMPBELL Not Available Start: 08-24-[address] AQUILES CAMPBELL . Facili ty:[facility] Start: 08-22-2022 End: 08-23-[address] AQUILES CAMPBELL . Facility:[facility] Start: 05-27-2022 End: 06-08-[address] AQUILES CAMPBELL . Facility:[facility] Start: 05-22-2022 End: 05-22-2022 ambulatory MILENA TOVAR . Facility:[facility] Start: 05-17-2022 End: 06-08-[address] AQUILES CAMPBELL . Facility:[facility] Start: 05-13-2022 End: 05-14-[address] AQUILES CAMPBELL . Facility:[facility] Start: 04-28-2022 End: 04-29-[address] AQUILES CAMPBELL . Facility:[facility] Start: 04-26-2022 End: 04-27-[address] AQUILES CAMPBELL . Facility:[facility] Start: 04-15-2022 End: 05-10-[address] AQUILES CAMPBELL . Facility:[facility] Start: 03-14-2022 End: 03-15-[address] AQUILES CAMPBELL . Facility:[facility] Start: 02-14-2022 End: 02-15-[address] AQUILES CAMPBELL . Facility:[facility] Plan of Treatment Date Care Activity Detail Author Start: 06-11-2024 End: 06-11-2024 Patient encounter procedure 06/11/2024 8:40 AM EST Office Visit [facility] [address] [place] [id number] Aquiles Campbell, DO [address] [place], [place] [address] [facility] Start: 02-15-2024 End: 02-15-2024 Patient encounter procedure [facility] Comment on above: Arrived Start: 02-12-2024 End: 02-12-2024 Patient encounter procedure 02/12/2024 8:50 AM EST Office Visit [facility] [address] [place] [place] [phone] Aquiles Campbell, DO [address] [place] [address] Arrived [facility] Comment on above: Arrived Cytology Cervical or vaginal smear or scraping study Pap Smear Pathology and Cytology Routine Well woman exam with routine gynecological exam Ordered: 02/15/2024 [facility] Work Phone: Comment on above: Ordered: 02/15/2024 Human papilloma viru s DNA [Presence] in Unspecified specimen by Probe with amplification HPV DNA probe, amplified Microbiology Routine Well woman exam with routine gynecological exam Ordered: 02/15/2024 [facility] Comment on above: Ordered: 02/15/2024 Payers Date Payer Category Payer [facility] [id number] 2023 Unknown [id number] 1988 Unknown [id number] [id number]. 2.593 1988 Unknown [id number] 2.16.840.1.761677.3.579. 2.593 1988 Unknown [id number] 2.16.840.1.773813.3.579. 2.593 1988 Unknown [id number] 2.16.840.1.106204.3.579. 2.593 1988 Unknown [id number] 2.16.840.1.028814.3.579. 2.593 1988 Unknown [id number] 2.16.840.1.185612.3.579. 2.593 1988 Unknown [id number] 2.16.840.1.420519.3.579. 2.593 1988 Unknown [id number] 2.16.840.1.594969.3.579. 2.593 1988 Unknown [id number] 2.16.840.1.392901.3.579. 2.593 1988 Unknown [id number] 2.16.840.1.546242.3.579. 2.593 1988 Unknown [id number] 2.16.840.1.253235.3.579. 2.593 1988 Unknown [id number] 2.16.840.1.378564.3.579. 2.593 1988 Unknown [id number] 2.16.840.1.170941.3.579. 2.1259 1988 Unknown [id number] 2.16.840.1.314651.3.579. 2.1259 1959 Private Health Insurance [id number] Social History Date Type Detail Facility Start: 12-01-2022 Tobacco smoking stat [facility] Never smoked tobacco [facility] Start: 08-24-2023 End: 02-15-2024 Alcoholic beverage intake Lifetime non-drinker (finding) [facility] Start: 12-01-2022 End: 08-24-2023 [facility] of Social function [facility] Start: 12-01-2022 End: 08-24-2023 Tobacco use panel [facility] Start: 12-01-2022 Education [facility] Start: 12-01-2022 Alcohol Comment Caffeine intake: non e [facility] Start: 1988 Sex assigned at Not on file [facility] History of Present illness Narrative 02-15-2024 BRAIN Martinez - 02/15/2024 2:00 PM EST Note Date & Type Note Facility 02-15-2024 History of Presen t illness Narrative Reason for Appointment: Patient ID: Ed Murphy is a 33 y.o. female who presents for Well Women Visit Patient presents today for Annual Exam. MEDICATIONS Current Outpatient Medications Medication Instructions co-enzyme Q-10 30 mg, Oral, Daily guaiFENesin (MUCINEX) 1,200 mg, Oral, 2 times daily, Do not crush, chew, or split. letrozole (FEMARA) 2.5 mg, Oral, Daily Anownkfi-Ana-Vf-FA ( 1 + IRON PO) Vit-Fe Vkezjoy-II-NPQ ( VITAMIN/MIN +DHA PO) ALLERGIES Allergies Allergen Reactions Cefadroxil Other Reaction(s): hives, Unknown Other Reaction(s): hives, rash Latex Other Reaction(s): Itching Other Reaction(s): Hives Paroxetine Other Reaction(s): Unknown PROBLEMS Active Ambulatory Problems Diagnosis Date Noted Anovulation 12/02/2022 DUB (dysfunctional uterine bleeding) 12/02/2022 Menstrual disorder 12/02/2022 Missed menses 12/02/2022 Yeast infection 12/02/2022 Resolved Ambulatory Problems Diagnosis Date Noted Bleeding in early 12/02/2022 Past Medical History: Diagnosis Date Frequent UTI Herpes History of chlamydia 2008 History of depression 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 Personal history of other medical treatment [place] teeth removed HISTORY PAST MEDICAL HISTORY SOCIAL HISTORY Past Medical History: Diagnosis Date Bleeding in early 12/02/2022 Frequent UTI Herpes History of chlamydia 2007 History of depression no meds 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 Personal history of other medical treatment Frenectomy x2 [place] teeth removed Social History Tobacco Use Smoking status: Never Smokeless tobacco: Not on file Substance Use Topics Alcohol use: Never Comment: Caffeine intake: none Drug use: Never FAMILY HISTORY Family History Problem Relation Name Age of Onset Hypertension Mother Nephrolithiasis Mother Other (varicose veins) Mother Cerebral palsy Brother Allergies Brother seasonal Nephrolithiasis Maternal Grandmother Emphysema Maternal Grandmother Colon cancer Maternal Grandfather Diabetes Maternal Grandfather Alzheimer's disease Maternal Grandfather SURGICAL HISTORY Past Surgical History: Procedure Laterality Date SECTION, LOW TRANSVERSE COLPOSCOPY 2010 OTHER SURGICAL HISTORY frenectomy OTHER SURGICAL HISTORY 03/2017 Lap/GB WISDOM TOOTH EXTRACTION REVIEW OF SYSTEMS Review of Systems: Review of Systems Constitutional: Negative. HENT: Negative. Eyes: Negative. Respiratory: Negative. Cardiovascular: Negative. Gastrointestinal: Negative. Genitourinary: Negative. Musculoskeletal: Negative. Skin: Negative. Neurological: Negative. All other systems reviewed and are negative. Hematological: Negative. Endocrine: Negative. Allergic/Immunologic: Negative. OBJECTIVE Objective: Physical Exam Constitutional: Appearance: Normal appearance. She is well-developed. Genitourinary: Vulva normal. Cardiovascular: Rate and Rhythm: Normal rate and regular rhythm. Pulmonary: Effort: Pulmonary effort is normal. Breath sounds: Normal breath sounds. Abdominal: General: Bowel sounds are normal. There is no distension. Palpations: Abdomen is soft. Tenderness: There is no abdominal tenderness. There is no guarding or rebound. Musculoskeletal: General: No swelling. Normal range of motion. Right lower leg: No edema. Left lower leg: No edema. Neurological: Mental Status: She is alert and oriented to person, place, and time. Skin: General: Skin is warm and dry. Psychiatric: Mood and Affect: Mood normal. Behavior: Behavior normal. Vitals and nursing note reviewed. Exam conducted with a cold roll catcher present. Vitals: Estimated body mass index is 41.77 kg/m as calculated from the following: Height as of 08/22/22: 5' 8.5 . Weight as of this encounter: 278 lb 12.8 oz. BP: 120/80 Patient's last menstrual period was 01/11/2024 (approximate). ASSESSMENT & PLAN ICD-10-CM 1. Well woman exam with routine gynecological exam Z01.419 Pap Smear HPV DNA probe, amplified Annual Exam: Patient presents today for an annual exam. Patient states she is doing well and has no complaints. Pap was obtained without difficulty. Orders Placed This Encounter Procedures HPV DNA probe, amplified Follow Up: Patient is to return in one year for annual unless needed otherwise. Documented by Daniel Pereira LPN on behalf of: BRAIN Martinez documented in this encounter [facility] History of Present illness Narrative 02-12-2024 Daniela Candelaria LPN - 02/12/2024 8:50 AM EST Note Date & Type Note Facility 02-12-2024 History of Presen t illness Narrative Reason for Appointment: Patient ID: Ed Murphy is a 33 y.o. female who presents for Infertility (Pt present today to discuss infertility) Patient presents today for Consult appointment. MEDICATIONS Current Outpatient Medications Medication Instructions Lvmvrudy-Pyn-Ri-FA ( 1 + IRON PO) Vit-Fe Dpmgyhh-KD-KQB ( VITAMIN/MIN +DHA PO) ALLERGIES Allergies Allergen Reactions Cefadroxil Other Reaction(s): hives, Unknown Other Reaction(s): hives, rash Latex Other Reaction(s): Itching Other Reaction(s): Hives Paroxetine Other Reaction(s): Unknown PROBLEMS Active Ambulatory Problems Diagnosis Date Noted Anovulation 12/02/2022 DUB (dysfunctional uterine bleeding) 12/02/2022 Menstrual disorder 12/02/2022 Missed menses 12/02/2022 Yeast infection 12/02/2022 Resolved Ambulatory Problems Diagnosis Date Noted Bleeding in early 12/02/2022 Past Medical History: Diagnosis Date Frequent UTI Herpes History of chlamydia 2008 History of depression 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 Personal history of other medical treatment [place] teeth removed HISTORY PAST MEDICAL HISTORY SOCIAL HISTORY Past Medical History: Diagnosis Date Bleeding in early 12/02/2022 Frequent UTI Herpes History of chlamydia 2007 History of depression no meds 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 Personal history of other medical treatment Frenectomy x2 [place] teeth removed Social History Tobacco Use Smoking status: Never Smokeless tobacco: Not on file Substance Use Topics Alcohol use: Never Comment: Caffeine intake: none Drug use: Never FAMILY HISTORY Family History Problem Relation Name Age of Onset Hypertension Mother Nephrolithiasis Mother Other (varicose veins) Mother Cerebral palsy Brother Allergies Brother seasonal Nephrolithiasis Maternal Grandmother Emphysema Maternal Grandmother Colon cancer Maternal Grandfather Diabetes Maternal Grandfather Alzheimer's disease Maternal Grandfather SURGICAL HISTORY Past Surgical History: Procedure Laterality Date SECTION, LOW TRANSVERSE COLPOSCOPY 2010 OTHER SURGICAL HISTORY frenectomy OTHER SURGICAL HISTORY 03/2017 Lap/GB WISDOM TOOTH EXTRACTION REVIEW OF SYSTEMS Review of Systems: Review of Systems All other systems reviewed and are negative. OBJECTIVE Objective: Physical Exam Constitutional: Appearance: Normal appearance. She is well-developed. Cardiovascular: Rate and Rhythm: Normal rate and regular rhythm. Pulmonary: Effort: Pulmonary effort is normal. Breath sounds: Normal breath sounds. Abdominal: General: Bowel sounds are normal. There is no distension. Palpations: Abdomen is soft. Tenderness: There is no abdominal tenderness. There is no guarding or rebound. Musculoskeletal: General: No swelling. Normal range of motion. Right lower leg: No edema. Left lower leg: No edema. Neurological: Mental Status: She is alert and oriented to person, place, and time. Skin: General: Skin is warm and dry. Psychiatric: Mood and Affect: Mood normal. Behavior: Behavior normal. Vitals and nursing note reviewed. Exam conducted with a cold roll catcher present. Vitals: Estimated body mass index is 41.8 kg/m as calculated from the following: Height as of 08/22/22: 5' 8.5 . Weight as of this encounter: 279 lb. BP: 118/72 Patient's last menstrual period was 01/11/2024 (approximate). ASSESSMENT & PLAN ICD-10-CM 1. Encounter for infertility Z31.9 Patient presents today to discuss fertility. Patient was given a standing lab order and ultrasound to have obtained. Patient was instructed to call the office once menstrual cycle begins so femara can be called into patients pharmacy. Patient has been instructed to take Femara on days 3-7 of cycle. On day 21 of cycle patient is to have progesterone labs drawn. Patient was advised to have intercourse on days 12, 14, 16, 18, and 20 of cycle. Patient has voiced understanding and will call our office for any further questions/concerns. Femara 2.5mg sent to patients pharmacy. Follow Up: 4 months for follow up. Documented by Daniela Candelaria LPN on behalf of: Aquiles Campbell DO documented in this encounter [facility] Evaluation note Note Date & Type Note Facility Evaluation note Diagnosis Anovulation Female infertility associated with anovulation documented in this encounter [facility] Evaluation note Note Date & Type Note Facility Evaluation note Diagnosis Well woman exam with routine gynecological exam Routine gynecological examination documented in this encounter [facility] Summary Purpose Family History No Family History Records FoundNo Family History Records FoundNo Family History Records Found Advance Directives No Advanced Directives Records FoundNo Advanced Directives Records FoundNo Advanced Directives Records Found Additional Source Comments INFORMATION SOURCE (unrecogn ized section and content) DATE CREATED AUTHOR 07/05/2021 [facility] DATE CREATED AUTHOR AUTHOR'S ORGANIZ ATION 08/23/2022 Luci Dela Cruz [facility] DATE CREATED AUTHOR AUTHOR'S ORGANIZ ATION 02/17/2024 [facility]IC Reason for Visit (unrecogniz ed section and content) Reason Comments Infertility Pt present today to discuss infertility Reason Comments Well Women Visit FOR RECORDS PERTAINING TO PATIENTS WHO ARE OR HAVE BEEN ENROLLED IN A CHEMICAL DEPENDENCY/SUBSTANCEABUSE PROGRAM, SOME INFORMATION MAY BE OMITTED. This clinical summary was aggregated from multiple sources. Caution should be exercised in using it in the provision of clinical care. This summary normalizes information from multiple sources, and as a consequence, information in this document may materially change the coding, format and clinical context of patient data. In addition, data may be omitted in some cases. CLINICAL DECISIONS SHOULD BE BASED ON THE PRIMARY CLINICAL RECORDS. [facility] [email or web address] [facility]. provides no warranty or guarantee of the accuracy or completeness of information in this document.
[2024-03-03 07:29] LABS: Progesterone 9.3 ng/mL (.)
== END 2024-03-02 09:14 | disposition home or self-care (01) ==
LOC: LAB 09:13
PROVIDERS: Visit Provider Obstetrics & Gynecology
DX: N97.0 Female infertility associated with anovulation (principal); Z31.9 Encounter for procreative management, unspecified; E28.2 Polycystic ovarian syndrome
CPT/HCPCS: 36415; 84144

== ENCOUNTER 2024-03-11 11:14 | Outpatient (OUT) | payer BC, SELFPAY ==
--- OUTSIDE RECORDS SUMMARY | 2024-03-11 11:25 | XMS_ITS | CCD ---
Author Organization [facility] Care Team Providers Care Spray Worker Name Role Phone ADRIAN ., DR KWAN [...] KWAN Admitting Unavailable ADRIAN ., DR KWAN Admitting [...] Facility (1 source) Cefadroxil Drug Allergy [facility] (1 source) natural latex rubber Drug allergy (disorder) [facility] (8 sources) Cefadroxil Drug Allergy 12-02-2022 [facility] (8 sources) Latex Allergy to substance 12-02-2022 [facility] (8 sources) PARoxetine Drug Allergy 12-02-2022 [facility] Medications Current Medications Medication Drug Class(es) Dates Sig (Normalized) Sig (Original) 12 hr guaiFENesin 600 mg extended release oral tablet (4 sources) take 1 tablet by mouth in [...] 5 days. 5 tablet 02/12/2024 02/17/2024 Active Xakpeuzk-Ggc-Rc-FA ( 1 + IRON PO) (7 sources) Mqyullwi-Cua-Fi-FA ( 1 + IRON PO) Active Vit-Fe Atligdd-TX-VBE ( VITAMIN/MIN +DHA PO) (7 sources) Start: 06-09-2023 Vit-Fe Hiypzgu-GF-IKG ( VITAMIN/MIN +DHA PO) 06/09/2023 Active ubidecarenone 30 mg oral capsule (4 sources) take 1 capsule by mouth once daily co-enzyme Q-10 30 MG capsule Take 30 mg by mouth Daily Active Problems Active Problems Problem Classification Problem Date Documented Da te Episodic/Chronic Anxiety disorders (5 sources) Anxiety disorder, unspecified; Translations: [Acute stress reaction] Onset: 05-22-2022 Chronic Female infertility (14 sources) Female infertility associated with anovulation; Translations: [Anovulation] Onset: 04-15-2022 Chronic Menstrual disorders (20 sources) Irregular menstruation, unspecified; Translations: [Disorder of menstruation] Onset: 05-13-2022 Chronic Other female genital disorders (8 sources) Abnormal uterine bleeding; Translations: [Other specified abnormal uterine and vaginal bleeding] Onset: 12-02-2022 12-02-2022 Chronic Past or Other Problems Problem Classification Problem Date Documented Da te Episodic/Chronic Hemorrhage during ; abruptio placenta; placenta previa (12 sources) Hemorrhage in early , unspecified; Translations: [Antepartum hemorrhage] Onset: 05-17-2022 Resolved: 12-02-2022 Episodic Mycoses (8 sources) Mycosis; Translations: [Candidiasis, unspecified] Onset: 12-02-2022 [...] Test Name Value Interpretation Reference Range Facility ALL PROGESTERONEon 4 PROGESTERONE 9.3 ng/mL . [facility] Comment on above: Follicular phase 0.1 - 0.9 Luteal phase 1.8 - 23.9 Ovulation phase 0.1 - 12.0 First trimester 11.0 - 44.3 Second trimester 25.4 - 83.3 Third trimester 58.7 - 214.0 Postmenopausal 0.0 - 0.1 Performed at: [facility] [id number] Escort Blind: Josr Jarvis PhD, Phone: [phone] [facility] IGP,APTIMA HPV,AGE GDLNon 11 -16-2024 AGE GDLN ACOG TESTING Note . [facility] Comment on above: TESTS RESULT FLAG UN ITS REF RANGE LAB Clinician Provided Cytology Information Source.............Cervix;Endocervix No. of containers..01 ThinPrep Vial Age Algo ACOG Jacinta... FLAG LEGEND: L-Low Normal,H-High Normal,LL-Alert Low,HH-Alert High <-Panic Low,>-Panic High,A-Abnormal,AA-Critical Abnormal Performed at: 01 =G [address] [place] [address] Stacey Tao MD, HPV APTIMA Negative Negative [facility] Comment on above: This nucleic acid am plification test detects fourteen high- risk HPV types (16,18,31,33,35,39,45,51,52,56,58,59,66,68) without differentiation. Performed at: =[address] [id number] Escort Blind: Stacey Tao MD, Phone: [phone] Performed at: [address] [id number] Escort Blind: Stacey Tao MD, Phone: [phone] IGP, APTIMA HPV, RFX 16/18,45 Note . [facility] Comment on above: TESTS RESULT FLAG UN ITS REF RANGE LAB DIAGNOSIS: 02 NEGATIVE FOR INTRAEPITHELIAL LESION OR MALIGNANCY. Specimen adequacy: 02 Satisfactory for evaluation. Endocervical and/or squamous metaplastic cells (endocervical component) are present. Performed by: 02 Ed Mancilla, Tip Banding Machine Operator (ASCP) . 02 Note: Note 02 The Pap smear is a screening test designed to aid in the detection of premalignant and malignant conditions of the uterine cervix. It is not a diagnostic procedure and should not be used as the sole means of detecting cervical cancer. Both false-positive and false-negative reports do occur. Test Methodology: Note 02 This liquid based ThinPrep(R) pap test was screened with the use of an image guided system. HPV Genotype Reflex Note 02 Criteria not met, HPV Genotype not performed. FLAG LEGEND: L-Low Normal,H-High Normal,LL-Alert Low,HH-Alert High <-Panic Low,>-Panic High,A-Abnormal,AA-Critical Abnormal Performed at: 02 [facility] [address] [place] [address] Stacey Tao MD, BRUSH-SPATULA CERVIX ENDOCERVIX [facility] DHEA-SULFATEon 08-23-2022 DHEA-Sulfate 352.0 ug/dL Normal 84.8-378.0 [facility] Comment on above: Performed By: #### L [facility] #### [facility] [address] [place] [address] Dr. Nam Keenan FSHon 08-23-2022 FSH 6.7 mIU/mL Normal Comment on above: Result Comment: Adul t Female: Follicular phase 3.5 - 12.5 Ovulation phase 4.7 - 21.5 Luteal phase 1.7 - 7.7 Postmenopausal 25.8 - 134.8 Performed By: #### L B[facility]S #### [facility] [address] [place] [address] Dr. Nam Keenan LUTEINIZING HORMONE (LH)on 0 08-23-2022 LH 13.7 mIU/mL Normal Comment on above: Result Comment: Adul t Female: Follicular phase 2.4 - 12.6 Ovulation phase 14.0 - 95.6 Luteal phase 1.0 - 11.4 Postmenopausal 7.7 - 58.5 Performed By: #### L BCLH #### [facility] [address] [place] [address] Dr. Nam Keenan CBC AUTO DIFFon 08-22-2022 BASO # 0.1 103/ul Normal 0.0-0.1 Comment on above: Performed By: #### L AMYH #### [facility] [address] [place] [address] Dr. Nam Keenan Basophils/100 WBC (Bld) 0.7 % Normal 0.2-2.0 Comment on above: Performed By: #### L BCLH #### [facility] [address] [place] [address] Dr. Nam Keenan EO # 0.3 103/ul Normal 0.0-0.7 Comment on above: Performed By: #### L BCLH #### [facility] [address] [place] [address] Dr. Nam Keenan Eosinophils/100 WBC (Bld) 3.9 % Normal 0.9-7.0 Comment on above: Performed By: #### L BCLH #### [facility] [address] [place] [address] Dr. Nam Keenan Erythrocyte distribution width (RBC) [Ratio] 13.3 % Normal 11.0-15.0 Comment on above: Performed By: #### L BCLH #### [facility] [address] [place] [address] Dr. Nam Keenan Hematocrit (Bld) [Volume fraction] 38.7 % Normal 36.0-48.0 Comment on above: Performed By: #### L BCLH #### [facility] [address] [place] [address] Dr. Nam Keenan Hemoglobin (Bld) [Mass/Vol] 12.4 g/dL Normal 12.0-16.0 Comment on above: Performed By: #### L BCLH #### [facility] [address] [place] [address] Dr. Nam Keenan IG # 0.01 10e3/ul Normal 0.00-0.03 Comment on above: Performed By: #### L BCLH #### [facility] [address] [place] [address] Dr. Nam Keenan IG % 0.1 % Normal 0.0-0.5 Comment on above: Performed By: #### L BCLH #### [facility] [address] [place] [address] Dr. Nam Keenan LYMPH # 2.9 103/ul Normal 1.2-3.8 Comment on above: Performed By: #### L BCLH #### [facility] [address] [place] [address] Dr. Nam Keenan Lymphocytes/100 WBC (Bld) 34.4 % Normal 20.5-60.0 Comment on above: Performed By: #### L BCLH #### [facility] [address] [place] [address] Dr. Nam Keenan MANUAL DIFF REQ NO Normal [facility] Comment on above: Performed By: #### L BCLH #### [facility] [address] [place] [address] Dr. Nam Keenan MCH (RBC) [Entitic mass] 27.8 pg Normal 26.7-34.0 Comment on above: Performed By: #### L BCLH #### [facility] [address] [place] [address] Dr. Nam Keenan MCHC (RBC) [Mass/Vol] 32.0 g/dL Normal 29.9-35.2 Comment on above: Performed By: #### L BCLH #### [facility] [address] [place] [address] Dr. Nam Keenan MCV (RBC) [Entitic vol] 86.8 fL Normal 81.0-99.0 Comment on above: Performed By: #### L BCLH #### [facility] [address] [place] [address] Dr. Nam Keenan MONO # 0.6 103/ul Normal 0.3-0.8 Comment on above: Performed By: #### L BCLH #### [facility] [address] [place] [address] Dr. Nam Keenan Monocytes/100 WBC (Bld) 6.7 % Normal 1.7-12.0 Comment on above: Performed By: #### L BCLH #### [facility] [address] [place] [address] Dr. Nam Keenan NEUT # 4.6 103/ul Normal 1.4-6.5 [facility] Comment on above: Performed By: #### L BCLH #### [facility] [address] [place] [address] Dr. Nam Keenan Neutrophils/100 WBC (Bld) 54.2 % Normal 43.0-75.0 [facility] Comment on above: Performed By: #### L BCLH #### [facility] [address] [place] [address] Dr. Nam Keenan Platelet mean volume (Bld) [Entitic vol] 9.6 fL Normal 9.5-13.5 Comment on above: Performed By: #### L BCLH #### [facility] [address] [place] [address] Dr. Nam Keenan PLT 335 103/ul Normal 150-450 [facility] Comment on above: Performed By: #### L BCL #### [facility] [address] [place] [address] Dr. Nam Keenan RBC 4.46 106/ul Normal 4.20-5.40 Comment on above: Performed By: #### L AMY #### [facility] [address] [place] [address] Dr. Nam Keenan WBC 8.5 103/ul Normal 4.0-11.0 [facility] Comment on above: Performed By: #### L AMY #### [facility] [address] [place] [address] Dr. Nam Keenan FREE T4on 08-22-2022 Free T4 [Mass/Vol] 1.14 ng/dL Normal 0.76-1.46 [facility] Comment on above: Performed By: #### L AMY #### [facility] [address] [place] [address] Dr. Nam Keenan GLYCOHEMOGLOBIN A1Con 2022 ADA RECOMMENDATION SEE BELOW Normal [facility] Comment on above: Result Comment: ADA RECOMMENDED LIMIT 4.0 - 6.0 ADA THERAPEUTIC TARGET < 7.0 ACTION SUGGESTED > 7.0 Performed By: #### A 1C #### [facility] [address] [place] [address] Dr. Nam Keenan Glucose [Mass/Vol] 97 mg/dL Normal [facility] Comment on above: Performed By: #### A 1C #### [facility] [address] [place] [address] Dr. Nam Keenan HbA1c (Bld) [Mass fraction] 5.0 % Normal 4.5-6.2 [facility] Comment on above: Performed By: #### A 1C #### [facility] [address] [place] [address] Dr. Nam Keenan PREG QUANT HCGon 08-22-2022 HCG QUANT <1 Normal Comment on above: Performed By: #### P REGQNT, TSH #### [facility] [address] [place] [address] Dr. Nam Keenan HCG RANGE SEE BELOW Normal Comment on above: Result Comment: 5-50 0.2-1 WEEK 50-500 1-2 WEEKS 100-5,000 2-3 WEEKS 500-10,000 3-4 WEEKS 1,000-50,000 4-5 WEEKS 10,000-100,000 5-6 WEEKS 15,000-200,000 6-8 WEEKS 10,000-100,000 2-3 MONTHS Performed By: #### P REGQNT, TSH #### [facility] [address] [place] [address] Dr. Nam Keenan TSHon 08-22-2022 TSH 2.026 uIU/mL Normal 0.358-3.740 [facility] Comment on above: Performed By: #### P REGQNT, TSH #### [facility] [address] [place] [address] Dr. Nam Keenan PREG QUANT HCGon 05-27-2022 HCG QUANT 3 mIU/mL Normal Comment on above: Performed By: #### P REGQNT #### [facility] [address] [place] [address] Dr. Nam Keenan HCG RANGE SEE BELOW Normal [facility] Comment on above: Result Comment: 5-50 0.2-1 WEEK 50-500 1-2 WEEKS 100-5,000 2-3 WEEKS 500-10,000 3-4 WEEKS 1,000-50,000 4-5 WEEKS 10,000-100,000 5-6 WEEKS 15,000-200,000 6-8 WEEKS 10,000-100,000 2-3 MONTHS Performed By: #### P REGQNT #### [facility] [address] [place] [address] Dr. Nam Keenan CBC AUTO DIFFon 05-22-2022 BASO # 0.1 103/ul Normal 0.0-0.1 Comment on above: Performed By: #### L BCLH #### [facility] [address] [place] [address] Dr. Nam Keenan Basophils/100 WBC (Bld) 0.7 % Normal 0.2-2.0 Comment on above: Performed By: #### L BCLH #### [facility] [address] [place] [address] Dr. Nam Keenan EO # 0.2 103/ul Normal 0.0-0.7 Comment on above: Performed By: #### L BCLH #### [facility] [address] [place] [address] Dr. Nam Keenan Eosinophils/100 WBC (Bld) 1.6 % Normal 0.9-7.0 Comment on above: Performed By: #### L BCLH #### [facility] [address] [place] [address] Dr. Nam Keenan Erythrocyte distribution width (RBC) [Ratio] 13.9 % Normal 11.0-15.0 Comment on above: Performed By: #### L BCLH #### [facility] [address] [place] [address] Dr. Nam Keenan Hematocrit (Bld) [Volume fraction] 36.2 % Normal 36.0-48.0 Comment on above: Performed By: #### L BCL #### [facility] [address] [place] [address] Dr. Nam Keenan Hemoglobin (Bld) [Mass/Vol] 12.1 g/dL Normal 12.0-16.0 Comment on above: Performed By: #### L BCLH #### [facility] [address] [place] [address] Dr. Nam Keenan IG # 0.03 10e3/ul Normal 0.00-0.03 Comment on above: Performed By: #### L BCLH #### [facility] [address] [place] [address] Dr. Nam Keenan IG % 0.3 % Normal 0.0-0.5 Comment on above: Performed By: #### L BCLH #### [facility] [address] [place] [address] Dr. Nam Keenan LYMPH # 3.9 103/ul Critically high 1.2-3.8 [facility] Comment on above: Performed By: #### L BCLH #### [facility] [address] [place] [address] Dr. Nam Keenan Lymphocytes/100 WBC (Bld) 38.0 % Normal 20.5-60.0 Comment on above: Performed By: #### L BCLH #### [facility] [address] [place] [address] Dr. Nam Keenan MANUAL DIFF REQ NO Normal [facility] Comment on above: Performed By: #### L BCLH #### [facility] [address] [place] [address] Dr. Nam Keenan MCH (RBC) [Entitic mass] 28.0 pg Normal 26.7-34.0 Comment on above: Performed By: #### L BCLH #### [facility] [address] [place] [address] Dr. Nam Keenan MCHC (RBC) [Mass/Vol] 33.4 g/dL Normal 29.9-35.2 Comment on above: Performed By: #### L BCLH #### [facility] [address] [place] [address] Dr. Nam Keenan MCV (RBC) [Entitic vol] 83.8 fL Normal 81.0-99.0 Comment on above: Performed By: #### L BCLH #### [facility] [address] [place] [address] Dr. Nam Keenan MONO # 0.8 103/ul Normal 0.3-0.8 Comment on above: Performed By: #### L BCLH #### [facility] [address] [place] [address] Dr. Nam Keenan Monocytes/100 WBC (Bld) 7.6 % Normal 1.7-12.0 Comment on above: Performed By: #### L BCLH #### [facility] [address] [place] [address] Dr. Nam Keenan NEUT # 5.4 103/ul Normal 1.4-6.5 [facility] Comment on above: Performed By: #### L BCLH #### [facility] [address] [address] [address] Nam Keenan Neutrophils/100 WBC (Bld) 51.8 % Normal 43.0-75.0 Comment on above: Performed By: #### L BCLH #### [facility] [address] [address] [address] Nam Keenan Platelet mean volume (Bld) [Entitic vol] 9.1 fL Critically low 9.5-13.5 Comment on above: Performed By: #### L BCLH #### [facility] [address] [address] [address] Nam Keenan PLT 342 103/ul Normal 150-450 Comment on above: Performed By: #### L BCLH #### [facility] [address] [place] [address] Dr. Nam Keenan RBC 4.32 106/ul Normal 4.20-5.40 Comment on above: Performed By: #### L BCLH #### [facility] [address] [address] [address] Nam Keenan WBC 10.3 103/ul Normal 4.0-11.0 Comment on above: Performed By: #### L BCLH #### [facility] [address] [address] [address] Nam Keenan PROF CHEM 8 (BAS METB)on Anion gap [Moles/Vol] 12.1 mmol/L Normal Comment on above: Performed By: #### B MP #### [facility] [address] [address] [address] Nam Keenan Calcium [Mass/Vol] 8.9 mg/dL Normal 8.5-10.1 [facility] Comment on above: Performed By: #### B MP #### [facility] [address] [address] [address] Nam Keenan Chloride [Moles/Vol] 105 mmol/L Normal 98-107 [facility] Comment on above: Performed By: #### B MP #### [facility] [address] [address] [address] Nam Keenan CO2 [Moles/Vol] 27.4 mmol/L Normal 21.0-32.0 [facility] Comment on above: Performed By: #### B MP #### [facility] [address] [address] [address] Nam Keenan Creatinine [Mass/Vol] 0.66 mg/dL Normal 0.55-1.02 Comment on above: Performed By: #### B MP #### [facility] [address] [address] [address] Nam Keenan EGFR-AF [facility] >60 Normal >=60 [facility] Comment on above: Performed By: #### B MP #### [facility] [address] [address] [address] Nam Keenan EGFR-NON AF [facility] >60 Normal >=60 Comment on above: Performed By: #### B MP #### [facility] [address] [address] [address] Nam Keenan Glucose [Mass/Vol] 105 mg/dL Normal 74-106 [facility] Comment on above: Performed By: #### B MP #### [facility] [address] [address] [address] Nam Keenan Potassium [Moles/Vol] 3.5 mmol/L Normal 3.5-5.1 [facility] Comment on above: Performed By: #### B MP #### [facility] [address] [address] [address] Nam Keenan Sodium [Moles/Vol] 141 mmol/L Normal 136-145 [facility] Comment on above: Performed By: #### B MP #### [facility] [address] [address] [address] Nam Keenan Urea nitrogen [Mass/Vol] 7.0 mg/dL Normal 7.0-18.0 [facility] Comment on above: Performed By: #### B MP #### [facility] [address] [place] [address] Dr. Nam Keenan Urea nitrogen/Creatinine [Mass ratio] 10.6 mg/mg Normal Comment on above: Performed By: #### B MP #### [facility] [address] [place], [place] [address] Dr. Nam Keenan PREG QUANT HCGon 05-17-2022 HCG QUANT 532 mIU/mL Normal Comment on above: Performed By: #### L BCL #### [facility] [address] [place] [address] Dr. Nam Keenan HCG RANGE SEE BELOW Normal Comment on above: Result Comment: 5-50 0.2-1 WEEK 50-500 1-2 WEEKS 100-5,000 2-3 WEEKS 500-10,000 3-4 WEEKS 1,000-50,000 4-5 WEEKS 10,000-100,000 5-6 WEEKS 15,000-200,000 6-8 WEEKS 10,000-100,000 2-3 MONTHS Performed By: #### L AMY #### [facility] [address] [place] [address] Dr. Nam Keenan US PREG TVon 05-13-2022 [...] ROOSEVELT LOPEZ Date: 2022-05-13 13:02 Normal [facility] PREG QUANT HCGon 04-28-2022 HCG QUANT 139 mIU/mL Normal Comment on above: Performed By: #### L BCL #### [facility] [address] [place] [address] Dr. Nam Keenan HCG RANGE SEE BELOW Normal Comment on above: Result Comment: 5-50 0.2-1 WEEK 50-500 1-2 WEEKS 100-5,000 2-3 WEEKS 500-10,000 3-4 WEEKS 1,000-50,000 4-5 WEEKS 10,000-100,000 5-6 WEEKS 15,000-200,000 6-8 WEEKS 10,000-100,000 2-3 MONTHS Performed By: #### L BCLH #### [facility] [address] [place] [address] Dr. Nam Keenan PREG QUANT HCGon 04-26-2022 HCG QUANT 50 mIU/mL [facility] Comment on above: Performed By: #### P REGQNT #### [facility] [address] [place] [address] Dr. Nam Keenan HCG RANGE SEE BELOW Normal Comment on above: Result Comment: 5-50 0.2-1 WEEK 50-500 1-2 WEEKS 100-5,000 2-3 WEEKS 500-10,000 3-4 WEEKS 1,000-50,000 4-5 WEEKS 10,000-100,000 5-6 WEEKS 15,000-200,000 6-8 WEEKS 10,000-100,000 2-3 MONTHS Performed By: #### P REGQNT #### [facility] [address] [place] [address] Dr. Nam Keenan PROGESTERONEon 04-19-2022 Progesterone 12.6 ng/mL Normal Comment on above: Result Comment: Foll icular phase 0.1 - 0.9 Luteal phase 1.8 - 23.9 Ovulation phase 0.1 - 12.0 First trimester 11.0 - 44.3 Second trimester 25.4 - 83.3 Third trimester 58.7 - 214.0 Postmenopausal 0.0 - 0.1 Performed By: #### P ROGES #### [facility] [address] [place] [address] Dr. Nam Keenan PROGESTERONEon 04-16-2022 Progesterone 9.5 ng/mL Normal Comment on above: Result Comment: Foll icular phase 0.1 - 0.9 Luteal phase 1.8 - 23.9 Ovulation phase 0.1 - 12.0 First trimester 11.0 - 44.3 Second trimester 25.4 - 83.3 Third trimester 58.7 - 214.0 Postmenopausal 0.0 - 0.1 Performed By: #### L AMY #### [facility] [address] [place], [place] [id number] Dr. Nam Keenan PROGESTERONEon 03-15-2022 Progesterone 6.2 ng/mL Normal Comment on above: Result Comment: Foll icular phase 0.1 - 0.9 Luteal phase 1.8 - 23.9 Ovulation phase 0.1 - 12.0 First trimester 11.0 - 44.3 Second trimester 25.4 - 83.3 Third trimester 58.7 - 214.0 Postmenopausal 0.0 - 0.1 Performed By: #### L AMY #### [facility] [address] [address] Dr. Nam Keenan PROGESTERONEon 02-15-2022 Progesterone 11.0 ng/mL Normal Comment on above: Result Comment: Foll icular phase 0.1 - 0.9 Luteal phase 1.8 - 23.9 Ovulation phase 0.1 - 12.0 First trimester 11.0 - 44.3 Second trimester 25.4 - 83.3 Third trimester 58.7 - 214.0 Postmenopausal 0.0 - 0.1 Performed By: #### P KIAN #### [facility] [address] [place] [address] Dr. Nam Keenan Coding Summary.on 03-30-2021 Coding Summary. CD:[id number] G h0bWw+PGhlYWQ+LW3CDUX nG11fuZIxmQ1EB3yVWM5V ZPUBSHMJOB0LMJ0kmFT4U GetE4WiuwXr YegxnBSuWN59HFl8QIB8x QrsRJhktZ7cwGDpN3s0Mj QiLD70jN55TVluAVSdRnM 3LjZpbjsgbWFy W3xcWeHpsSJfOfe+PHRhY mxlIHdpZHRoPScxMDAlJy CyuDjsFA0dKs8xMZSxYDH vbGxhcHNlOiBj y1eyVIFiLSznNB5foLmxV 1IpxLZ7AFYpu1a1Fv14iG I+MMMzNWH8nYsdUQdnv69 0VqEaf7knJFS8 lNUyDOxkHIG1L19sn9S6Z IFyXWGnHPV6eAI9sL2jlB qbtdeiV1KbjXDmYrZ4OGC 9hAIjmT0xtCcn bvoucE9cVlw+Q75DDC7IC SFKVL4KDhq4Q3GaTeoirJ I+HK16BZIdSB56hOLjrXX vq6qqoUp2YcXg XZWzQST4uFcpFLbax2FkD DTiA04ezTYum8V4TDVafE gspHSpQaLonIO4zG3iHZz ayyuyz4hkjrea Poxef9kyjp86gP45W75uU VcnICKwJFJ6LFJkLGUjsP aveu7dyO9nOc4+YGvcx7k hq1bunJv9PoIu GPYlqvZvhOahISP7k3DdD c17I2EtnOpha4BvZoe1cw 20zGYbj4Y0iKU2KEnkVJA ipC2sRCdhWzC1 WELtOoTkpI41eVGeYJivM h1gwOpwtOayAQ6dJYKpbo zlAHOjyT4kVWJzbSPpdPy zNM5uPXVzriin g544BgHwGPO3AVFrmWIkI 3GavY0oQfKqXDEkJGWoI5 WzrGLlQEnqZ988FMvvQgB 9NXFeawIeL9Yu KWItwIncDiT3k8Y7Tf8Mz 0YygiibDSF8APmsHXJfLv AlZaLfRhT1K4DbAdd1PAI cmCepBD1nH3Ni YFUpmfanctyizRZ6EQNqW OReaC89jCZmWXafIo6ym1 L8x519LKJzCIJclR29Fn6 udDogMTBwdCBU zU5ipykha4udaweuUaYcY ASoXJa2ZVa0DGZjrRsdLw ApYTK5NkX9VEU6jTGseL9 qfBbihibeqS6l Oyc+I17vfS7yWLO8PBM0k pjrECFwfxMzWP51OU22M2 RyPjwvdGFibGU+PGRpdiB aiJtpUU7dBdCw h6sab5CfOYcuI4ZrLEKjG TqwBtx7KNScNCV1pVE3cF 5qDVWpYGeqe8T1kWN4C0D tttWjwc5zh3hu RNScUKdnJ53ztBHvl4J2R HXnqYH2EVQieXobYkIoeO 93Oyc+DGAseIjck0MpAnk mt5iku6rcjIl1 NhMnWRHchyLcbJiiCAS4x 3AuNe04Q28sTPwwUJSeKU VmHSAySTLyaJpyda7qhR9 wIi8+PGNvbCB3 yYD3vY8vVAEkZaQ7EReyO 285MnPvpDNfXqcbe6qsm6 iwhIv9KxHfMAHnliPmtCt vTAX9n9MvHc02 Q50zYXmaOJYrMUSiIVKtC RWssLkgpw9dnG2wVb3+PC 5gk7tgvb47xG24iLN+PHR qTQU1nQfeYDmx QDXgtT7sUIxdYnS0OKOyG hZafX87sGUoLUwcBo7nuA utnUjbVA8zNEGwlhhog20 5TnGnh5zxQHSm fEDbQNpxTLJ7H68fh7P6E LGwJCQmJYK5gIR8jB5yxZ lnbjogbGVmdDsgdmVydGl xYMtbUXguQ683 IHRvcDsnPlBhdGllbnQgT cIrUMe1U9JzVnx6OKDhdM fqIA2naEYlCKgaAp2pzIw moYrgVZ5xFWUt fqowa752CcZev8mqPBYld XZaOLoeNET7G16zd2Z5ZP KaCLElTKO2eND3fS6jrWj nbjogbGVmdDsg wvXswEprIDpjQAxnM133Y HRvcDsnPkJpcnRoIERhdG F0RU06ZZ98dIGzu5T9pDO 7V9PvWJWurqes ntesuSL8JRJzEESueM66D k4dyWhbXf5iIVSuBHV4NH MmmHOwI2CpsA2hDnVwDTT eHRKfA8XrdBUl YQpoH535TNtiFoD8AXMci xNjY7UhWWBadAzmDjG6b9 D1Qn4IT8Y3YG65FS30kQG nt8S7sTQ3M4Fk OQLwkfyikkmcmGJ3KFNyB RLqzB76Ze2mwCofHm5bJC MbJPD0OKBamSWjR0UgnM3 yOiAjMDAwMDAw S1WacQFjUGafS891NHbpQ zS1XFIfunTpG2EjNYYpmJ ecAwX4g8Q2Xc6ROUy9BS4 3WE27pDXtz2X1 eOG8F4UoVABrcugbfilwt KP1BMQjLFUpfV28Rt8klY irEz8kQJPrDQQ5VGOhfRI iF0AyyJ8vSdFv HJUzQFAcN0HwuTYdMKljP 994WBbnDfY8IJSczxAhL5 YtRBKtjXceZvL9g0A6Ta3 UXVFgGU92LNB4 cNX8LO75JX52H1ExLiejo GFibGU+PHRhYmxlIHdpZH RoPScxMDAlJyBzdHlsZT0 pYc6aJYAoBPHw mLvrsHXfKsRqc4arXBWbC CxsDK9lgGghG8CecZW9ST Hzn4m3Hl64G00iO1EmwEN +AAYtoZV1gFW6 tO9jYjZrXyT9LYukG042C bIbcFFgEbmpk6mfs2safH l2JeK5UMDbkcXfoVrtNKC 6z7YoTz69X53d IHdpZHRoPSIxNSUiIHZhb Xkszs2dnJ3nOc8+PGNvbC D7gJD0iD0dRbHqDcO2VGo uZ391TlIghBRk Yhtkl9hel9lmnGg0EgBqQ DHiqhBriPoxTMN2j8AsNt 52G9GglVjhv1IkQcp3bw7 1gZDrd1M0iPU8 K7XbNEZtrvragYHniNrbQ U8fHWCfemkrKCVrjQ6eEY ImI4t5IvZrFjW1ZBpaC0S yxkB1NKKfyIIt EYejKPN5J68sf8O5QHJrW UIoLEA1dBY8yL4zwJdqxl ogbGVmdDsgdmVydGljYWw oLCxgP583WAKo tCqrUUNmmM1lOEGevNEkz CaxVQ5qIPMmpgxeEn2ERX zWZggqCoJHE0pWRARCLA3 0PR58eEGgy5Q7 gOR0K3DiBUZtfjdotrsus PU0OBSbIAQtuI27zQNkQP kbRw6xd5Y5r579RPJxJAM euU49Qn3jhVau GNLgmLYYcZ7ixoxpv8eik ngcThSuZOHvQWv6LUh1MP BzdRajHwRhYSS6QfF2TGZ 7rTMzoK6gqGky xxcdaO9fVxb+MDgvMjEvM Uw9YQgmnCD+PXNaZSM3sH irMVdiTMMolG5aJKPiU6t 6KyUxGgA5WOqj Q3HjGAAxauseKt18eC6lH xLwKfB4ERcpM2HldzZ1TS AcpGEpXZlnFOE6N81ev2L 9XOYfHOBbBNQ2 zPB1xL6xeGybztvpoULju DsgdmVydGljYWwtYWxpZ2 46IHRvcDsnPjMyIFllYXJ eUV13VN91jCJj u4J7xMP2F8AmRQFkibeax jupwXL6TGMjECUzdJ65nA BvTBgrHq5ks5T3h270HJO yYNEzlD82Tv9c jRveKGQcfJPCfY1euficm 4ibephlFhMoZEByVRs4EM c3DOJqgNsvJvDtOMP2RyH 5QWC3fHBjmY3z dDkemoamlR8wJws+RmVtY UbdCA40LH27zYUqc5F3bD G8B1TzGNErgegvimrhqMM 5HOVwIDTazA93 gXKiXJhvTn9ag4E6o170E TWtBMUdbH81Zu2deJplLA CioBVApE1jbsoyu3xsgyb gIzAwMDAwMDt0 ZAl4WCBhvEpaMnSoFDM1N wO3LDN5mWLhdM7sgTirzl aooJ9qSth+L6Z1rMJ8xLK udDwvdGQ+PC90 di87T7HeMznaDce1TPTeG TI1rOU6zV5eTIZkNJakt9 D2yGO5Y8BcfwDkpt1xb4z kYYJoWAlmJ32v jBHsp2R0DLDdkKB9OCByc FyzMhGzlQ11Giz+PGNvbG nbu5FrBellp7soj1lzhTh 9IjMwJSIgdmFs sMhoNNT6b3YzFt32I10tQ HdpZHRoPSIzMCUiIHZhbG dwjr5bfB3fZh6+PGNvbCB 5tJS8gP1eAnDf TlA5GYwoT397JuHceZDiQ lyzx7uff8dalVp6JsRmDC JvhyNtvIleBDV0x8AfMd3 8P2DtfIkhl0Sa Ydi1kh00iXMrf2U8kRX4W 3BhZGRpbmctbGVmdDogMC 5pLQGtbllzBBPtqE6tYBX yE9i7MxEcNeQ2 HThfF1AvptZ6ENGrlQJeT IKcoSEJvY0ekctgs9zrhz oiJlYxUVXtLBz6IUs3COU saWduOiBsZWZ0 YpR2KTD5nZRjkY4djYzpc pwzyU7oGia+BZi8f2ozpM WaZP1dxUM3FF47AZ51yNP uv1F2sQZ8X0Op EJSmdommjnqedPI7CROeG YTtnU53Kp0beJboEr8lYZ JhLIL1FDElbEZeN9HkoL2 yOiAjMDAwMDAw V0ZbzKDtGBsnX665QYiuU wV0LLGfhgSuK0PwGQLhpE xeInB1f9K1Is7ISZ47DQ6 7QK93eVHym5Z7 uSB8B1ZfDXPmpgnzaqiea PS1DMAiVPShaB10Cw5zdS ntQl1aCFUzQTU4VFLteVO iK4IotB7qSiBx LMWaMDQhT2EhvXNqEGheO 919BNwpNvY9TDZtkcReD7 TwLUCpqZxuWqA9p8B6Vq9 XOt40HI71QS64 yOYvt4V6qZB8Y7XsZKQqp qhauytjzDC1ZNGgTUVajK 06Sq8gqGnpSh4fKOGqYWD 7SLKlgRFpJ8Lq xB0uZqBjQHPoPZCtF5Sfc XKbTPauQ382POioXkW2DU UgyiUmR0NcHCXpiMjiXwV 4x8N5Pb5TXXwf yab1E7QmQuyckGW+PC90Y OMeVJ07sMYcbBExy5flhR f8DnVvURXdKIS9hWkbSHz kq0AcEUBmA49x bGFw (more content not included)... Normal [facility] Coding Summary.on 03-18-2021 Coding Summary. CD:[id number] G h0bWw+PGhlYWQ+NK9DIRH xS96yoGIjmP7NS5bGXM8A VLANZCHJNC1GER9xtHQ7D BvhD9RwwqHx AipplKRjDE96FAr1KLI8r MkuQWactE8miSAqR3m8Mk IwIX29fQ15OOodMFQoXhL 3LjZpbjsgbWFy S5rbFwSpwTCyPpl+PHRhY mxlIHdpZHRoPScxMDAlJy RnsPuuWE9tJn7xHWNiOKK vbGxhcHNlOiBj s5kpAKMlINmlUK1rrLopT 4AjbON0BCJru3k3Uy50dA I+LOPrDOX1bThsNBral46 9DlJcz1usYJV8 dSBeWHzdGLZ9A57tn1E4C FJlLUYmHBP9eED9kK1mgF ikandhH4JikVJlYiV7FQO 3pKMpiL5cfBxy vpszwX6fLjn+I38KBX7ID KGXBV3POgd4O6PsBmesvH I+KD11GUBmJQ76kRLtzOC ef2jspZu6WwKq OIHfBDN3eUlkDEicu8WvT TJjX34zfTEtl4D3KVJsyC wriEYwUfEehPZ6uC5wUYv poykok2pcngzt Rzokd9luei83xF80Z62tV JncCIKvJDS0MYTqZUNoyS dzlt2kaV4hOt4+EQada4h kr2zltIf5GoKg ZFLyjnPqoHmpVDY8q8JwM u76Z7TigUlgq4CgYzn2ef 80iFUfg1C3yDG7RVkcJXI fjJ4hVPlaJqV4 OADfNcSlpM23yDWuJRwpD z8dbZfglTmtJG4pAVWirl uiGZKabJ3vQQVjyRMboTa bVV9eMPYzybef k011SpAyLMT4IXOslHQlR 5BfdD5nSeZsUWMwUZJsO1 KjmEQmPUoaR536RUraAzN 0MNWuqiLhE3An NXZciEycWvA4p5S9Ov7Cx 1JbviaoGYQ0NJwwLLBuRc X0WyUdDrI6N7AvGjy6URP ykFdgAU1rF1Ew PXXlgzykzjdsrZV3KPIdH IIilT64vXFaAUsbVe0kv8 T3v947PHYdWWJrgW50Yl2 udDogMTBwdCBU sU1hehsec2rijsioEoTqN GYkWQb2YMm6ZOPbjOyqAf OrXIM2BrW3HOM0dEWrvR3 toEbosfpulA1q Oyc+A12mhU8aXER8IAP4n djgEYSgirKeHJ72VY52D3 RyPjwvdGFibGU+PGRpdiB wpMznIV3jUaJq t4usm6OwYReaR3CdPVPiK QwcZil6LIXmWYJ2rPF0fD 1qZNIcWKkoe3T9tYU4O5B ksuMdgv9pd5ig HAZjYObdF31ffAZoy9B9A LBhaTJ6PVXawVrvNqQxlK 93Oyc+QSLovRjvd3XgCuk dw6qnf2vyjKx4 UcTeCYEyshWtiPwbAZW4e 9BoMl85N93rNGlcCGIaPC XbSUGhFIFvvUbbzv2yuH4 wIi8+PGNvbCB3 lWK6uN5cKHXfRqX0RQenA 848UhCcrZEfGxlgn4jbd2 gikNc8IdCySHIqgvEsaBc pSLP3m3IjEu89 V53yUAxoUVPhMGAvJIZjF HUjhClham2izB6gMk5+PC 4pe8cnzf09mY09hPQ+PHR tZJH2uQfqFQrk DEIixA0gQGucKkW1ABMxC vZteM08lBWqVKljEe0wsZ lyaYblXN5sNKEcyewaf40 5KdBit5sxBNWc dZRuQCrxPWF6A09wh7M6Z AHzXAZsTQY4wZL7tR9xhQ lnbjogbGVmdDsgdmVydGl bCMxaWIaeV282 IHRvcDsnPlBhdGllbnQgT tLzGWt6C6DnAfb5VHLuvU jpXK0uoZXfKBibAx7fhNb hdKncJO6qRQBq nkhor168CxTqt8nmOLNkv NIqMYbcMJG0Y46uv2O6JB XjBNBbJCK5fFG3uQ3mlYe nbjogbGVmdDsg vaAbsZfpJCljNFqdI008Q HRvcDsnPkJpcnRoIERhdG V4PG63CU07eWCgx7Z5hOG 3T3OxHQMalijs rqdboBX6GCDvNWVrxJ76O a8wfTxeMs5jEQElIUW9NZ GdnPXrS0ZpeB1gJnOuAQY cNETrU0MbiVQj WTqiH772TSxwDiN9REUoy eSlQ3IqHSGpoWdtLmF5a7 O2Lv5HX5W4CR87QF32cQD xw1T2bQQ5Q0Rc NXTblzwkryqgwDS2NRPhI SNgmL91Ht2snNvxHh2pRK ZyNDR3VHRqtCKpX4EmoA9 yOiAjMDAwMDAw S0BkwISvWIrzO500MLcwP bT5EYVcxlNlF3WcUBVffP kiDqC7s4Z5Kp0SQHc5WT2 3PA13aRWoe9A9 vSV4F9ZvCCTgwiclxmmcz JR0GXVnAOWplG07Gk1kzP dbUg4tCLMeOWL0ALGzdZW wD4YqhP6nGfYv UOKbLGRaM0ByjSVoRTiuW 094WEjjEaJ0HRErfrAlC8 ZtQEBukSkoDsT0b5A2Ty1 ZFYSqAR14FYH0 gJT9RB70DD77V0BiUjhxr GFibGU+PHRhYmxlIHdpZH RoPScxMDAlJyBzdHlsZT0 uJp7rWINlNHKn gCvyhWYfErXxd1pgJGLjM SkyMK1svHqxE6OmaLY1YF Dsc1k0Qj12Z33yU8YyvSX +GIBnbKO4yIP2 wS8hYlBiWgK7VXfxZ589I pVpaZGqEespq2bam2unuR r1CrR3TPJlgfJrkNewVPR 8k9AlTz01M61m IHdpZHRoPSIxNSUiIHZhb Nayru1evQ0iVm9+PGNvbC Q0mAY1jJ6jGyWfKzG4UDc yD647QcHluHDs Ypnfn6dqh7dnrIa9BtBmZ SMrvcEmgQnlDQG7l8PcDv 52S0HtnOneq0WwAhn3sx0 5iYQdo3K0nZG5 K0RjBQDtsnvvcRJrsElzH G6tZNXpamxxEXEzgD3jQB HhP6u8NlKaDuX8BUlzU2S btsW7AFZfiHXr MWzmSXM1D83fe1T6MDDtX IZaUNM8gUG1vJ5kmRcojh ogbGVmdDsgdmVydGljYWw hPQmlR699LITz pUwcAKTmdC7iNSHqaELtm MzmQI9cIZApllyqQg4CIB lBNcxsUyXRC6yKJKEECM9 1YF63rCOij6W1 dFH0Y2DxCEKseottkwclr NA7ZRJgOMOjtK68sWEnTZ qaBh2gq0Q4s005LXFsRAA yuH16Qe4baZze ZQUdxHSNgF4nmzydn4lij nlnFjQkEMAwTBh4LJd6AZ ZhtHyzEuIeSCG7LnH5JLW 1iFPiqJ1qgTgq ikauoN0mNuj+MDgvMjEvM Mu9ULufqSD+CXYyEPA3lK hnATdqGFDzxD9lAXLjU1m 6JsKiJzW3QXbs O9SgZKEjxfelUc01sW8xS cKcDeD8DOqfL8WmycQ3FH FugULwKRfePMS1D67eh3O 1IIDcDQKaDRK5 mUG6pQ8neYdofxingQTld DsgdmVydGljYWwtYWxpZ2 46IHRvcDsnPjMyIFllYXJ hHX46HO87kMQs b0Q8nEX6O4RvBWIoodedn wijsWL1OFUeNMTyuM00nI YbSNylBb8ij9Z7i595FMZ jCMOdhQ29Jv9h hCuyDJTkaDPKlV3rpkleq 1pvcsxfOyMjBGJnELu3FQ s5HUHwtZnbNoSqJHL9TkV 4TLB2vTAowY3u gKlykkvqeT3vJug+RmVtY BfgMI66WM28rINjt8Z4rE C2M1VhPWZhvdhpznvqzLV 0TDDxBRSizD35 uAIgCCjhAq5jb8B1q310M XGvYMTpqG82Vr9snZlfDO RhaVRHaI9unbsfh1ggttc gIzAwMDAwMDt0 ISz7YXPxfGriTwYuJTS8N iX1LVI0cRPhlV1gfRwpnd cmaP3iYdo+TQ8sctskgdO 2RT21JV53F5Iz PjwvdGFibGU+PHRhYmxlI HdpZHRoPScxMDAlJyBzdH luHH2mUk5nNVGsHKGksTv szUUdWkEem2iv NMPnQVvcYV1ytNxiO0Lui VK3TQZqx0k3Iv75Q46zH8 JvdXA+PCNvqSZ3fUS6nK9 dQkBbRjD8QKuh T021NxCuiODtZcedd8nvk 2azmKg1AhMyUZDfitEtmB lvFDW6s9SgKc24I50rSJa pZHRoPSIyMCUi XWUjtOkuek6tfB8kUy5+P DOjeKF4aIF6lH9jVeMuSp T5TYejE845JfCdbLVvNqr zX26iS8QqdTC+ AHFgDrx1OIZdiCpbOK3ov VNlFXldCc4eWEV5WjVmQg GuKLjqN3XoBMDornvwsrx giEM4TZXvBQKv bO20Dx1ilBvaFq1vIYVcM IS4TCTbcYNoN0GpfR2cOm PpRLHjYFNxW4LozHVmFOa qM336HEixJtL1 YUSbbzPmN4XnPKZywYkyD vU3w6S9Ww5XvVzvxHPjNQ 6cKoNdCWs8A4ShKta2UYW imMccKZ1iwKYm VLdcUf3zhKbmmKquDJ4pB OBaiayjo215NbJpt3coFO KnyCGsEEjaKAJ5M54af1Y 3FKKwPQKhQFU0 qUR2gS3zdHsfscagkGOfm DsgdmVydGljYWwtYWxpZ2 16FUFsjYlbZyEMWvk3V0L dBta9JNJunTvx UL4neYTmLEekQf8wfKblt UhdHO5cNEDwxqqmk643Rm Lba2rbKURpkLKgKNjmQYH 3B45zt9Z0XNOj DDYrCMS0uJB6uH2noJvjy jogbGVmdDsgdmVydGljYW rdKOooC654ZPOsrZhcQp3 OPhx5W1MwXpk3 KXLkcBniGC5ntDPaBHhaA n4wyZzgmAxgJK3hAIAaic lfj133FhDdm4qkQAFdfIS hLQbaBGN4O56p z3G4QRVgXYKoXPX8aEV3h A7utYuwxssmzEKejUkbym EfoCreTYfdGBjnR154PVB vcDsnPlBheWVy OjwvdGQ+MN33bh90A0NjM zbkNfr2FCBtWRO4wYG5fU 7vXKAaURngn6V0hAD4W1I ltjCfvu5oh6rh YXBz (more content not included)... [facility] Coding Summary. CD:[id number] G h0bWw+PGhlYWQ+YD2UFHK yM98eeIRnjL1JN6gTLJ0M KZSBNPACUL0MMM0fjPP5X YdoK8SsdzYo AcpxrUPyUG12PDx6JRQ8e JypVWynsS7fwUHnM5a7Nr LbIO54gI11XIibRLRuPhU 3LjZpbjsgbWFy Z8ntRwNwcAKmCmg+PHRhY mxlIHdpZHRoPScxMDAlJy FesHtzIG4wWq4hQVTqJFN vbGxhcHNlOiBj e7viJROgWNxwVS3ntWsiI 7DnoCQ5CSWis2s1Lh05uS I+QKYuSTQ7sQlqHFgkf89 6RlNyq8jnIBC9 lPMzFRbcJKM8X28sc1B5Q IClYCYbTCO9lDY1vB8eaU roqikbR7QhzKEhSbU5XMF 6uFMaxL7jzMfo ktifmS0jFbd+V98ENR1WV ZXSEY0EHmw9O3XhRdbwnA I+NY36MKLxYM47mKAidDI mm4ghiGz3QlNr BYLtKPA1oIznREzrt6HcJ VJhD20uhIWnu9V2LJVhzD yypTAhQjDclWW0rC2uRKl safrwu2csojlk Unyci6qtrn38sK22L17vZ FhiNXIfVUS8TRNsGLVxxP gcky3kdZ6pUr9+NKyte7x zp7vioRs8HoVh IRFfwiJrpRwzDYF3h5FbT m84N6GlpGsvb9NrQlq1wc 88zBMhl2E2iOX9QDehSWM xtA5pJZsmHbX9 IZAyZmZyqY48aHNjZVywX u9szIakmMznCW1rKDWkwo euOMJtmL8yHTNoaKAjkAy eSL8sGLQpblbv o347InUrFWB1CENusSBaF 9ZrmH5iUsBiBWCmBCKxK2 PzaVKvNHpgS662IHtrFtD 9YOTvzdOcN9Fd PHTwjMrcUcF1e8W0Zz1Ki 2FhmljsLVK2AJzcNKNqVy C7LzKvZsX7I7TdKer2TJE tkCpvOU8cP0Wz OUXqrpwxtoykoQH4FSBhA ZXswI24gAUlHNtwPb8qo1 U7h745GCUvNKZjvD31Lu9 udDogMTBwdCBU gX6hlkmsv5axbpqgZeOxF ALrJUh3ZBs4METzxMerIh HfEAP8UqE8UWO3hALjwV1 xgQneylgshS0n Oyc+K44toO0mGVM2QKF9t cgdNPCptiNyHH63YM30N3 RyPjwvdGFibGU+PGRpdiB fwDvlWK9uCaLt d8eme0NbVUktZ7KwXKOxH EcxDck5HGDpGAX7mED0yX 9vYKRrDVxcv5E5cGM7J8W uznDlxu7xs0gw UAPgJXkrB37vxSHsa8G6C VNfaPP4ROSctAytNmWwwP 93Oyc+XNKisIkbf2FeXjw zr1hvq8jctZv4 TzIzWWVlecMlzOqrDJC3w 1UxXp72K31iDRgsPYFdOK RgOWUzVSNeiStqaw8uyH0 wIi8+PGNvbCB3 jHC7hF1hVHJpIzR4UWvuR 112HbSazZQmHsjzq7cav5 pfiZm9FlAuNKUgusIhnXe yALQ7u6TxPo48 M08xZIjfFOMiFTNkUJMeV QTbxUfepj4joO3gGv1+PC 8ao2ftao70zU64eEC+PHR oFRE2vRgcZTcx SVKddZ2nMXbfTiC3ICNrE pOapL66rVJuGCjoRj9eqO sahLhqPL9uELLubryho32 8TsKiu1deEOAu pSXxPGwqEUL5Q22lp1S0Q FHrYOYuECJ0fAU2zP7cyG lnbjogbGVmdDsgdmVydGl eTOqmBQvdJ810 IHRvcDsnPlBhdGllbnQgT pNsOWs6W0QaNfg3WUJhsR fmKI8lrPVbKHoyKn6xwCh zbVakBY2hLGZd dsejj542MgKhu2fyWMVwj VHoXHzsRHK9G65bv8C7SV FeUJTlRQA4vMK4qB7yfDg nbjogbGVmdDsg foMngQyqVQraCAiqO592N HRvcDsnPkJpcnRoIERhdG G6ZU41HX56mUDud2I4iIF 0S5BcNWVirjzb vynovXY0HJNhDHIetM24M l4syQvhCs6vOYZvXRZ4YT IvoCGzN3QudR3rMsCqYEV yEUWaG0JakCNh DPwuH479MUiiEdA8WCAkq uQaK8GdQXXziQsqOoK7s0 S3Ep3RU5T7FO70SP32xWR er8P7cNQ3Z4Mc VTWekxyhwuzjhFS7GDKsH RNjsQ93Uk4frGqzIp3iMR AeXRD1BOKkaUJsG8YgxR4 yOiAjMDAwMDAw K1AqtKBrNRqsJ016VItgR aK2MBNkayQkF2MyWTKymO odIoN1b3O2Eb1YFTu6AM0 1DI33iTDrb5A6 gDQ8G7YfASNmkdonnijti QB9MGZbJCQlvN14Ix9zrX fnLb4bZIKyJMP9HYTywQU oI2OlvP8vOwVs UBVqWSJiC1RlwBNjQUapA 476RDmbVdW0CQKboiHxD8 VeASPkqXoeZsW4x0V1Wp7 OWESbIJ98DUB0 tED2VW35AP71O8QdFgvwo GFibGU+PHRhYmxlIHdpZH RoPScxMDAlJyBzdHlsZT0 yMw0mEOKzTWUs bLffgGLuLvCxd9kfUPWhT LcbIJ2xlKmhU1UucYI5KL Kna3y1Gy72Y35kY0BogXX +PYKsnLL9iQF1 qN8aBpCuYcA8NGguE284Y xQpiVYdSudzg9cak8emtW z9YnX6YZXfocSncIqkDXB 7b4ZcPg95V60p IHdpZHRoPSIxNSUiIHZhb Rdmjl9nlB6lSb0+PGNvbC C3tTK7sM0ePhIkKpO7IPx yQ431YlOzcKSu Wkygm5owd3gtnNj4MlIxX GUtlcGcpYmwMBG6j8QuZq 08O3LdhLdij2EbReh3tg6 1aERmz9I9bUQ5 B5JgJBCvxbazvIJkbRjfX U1rHZJphjbnPNHwtN3fCD YvR7e5VfDjAjE9ZShfX9W fwhL3GALeyIIs ZPsaULQ6T86kb6T8DPCcT BGkUBV7yJT8pO4glRadhr ogbGVmdDsgdmVydGljYWw aQTuzF498FQBx uEpmBSNpdQ3kDJClxDQir DowBF8tYXLthkwtHu1TMD eFKpgxEuXHP8iYRWGZOL7 4QV54aQWlp8G5 kTJ2W4IoDSCrfgunkkbiv LI7QQSjGQIggQ28pVXpUX cwEe4gv6Y7z241JCGsLLS bwP94Pc9ulZmc MGHjrOXOuQ2rzhxqj9ijl icqUiOtHNYmVBk8WDn8TK RzoWuqPcLkFZH8XsP7QXI 3kDAjkF9qjDcn yxdvzG0kOgp+MDgvMjEvM To8HQrikQT+UKKpKTU7uT soCQxfZTZugU8kFAZyR2b 9WiJmHvO6YRlj I8TyFTYiaffcKe09oL5wA aKoToM6QToaB2FsmgD0CU YutTMgPLtxKVY2J13hu6R 4XXRoTPGtTUT0 fCX9iN2xwVrvplyaiHIsm DsgdmVydGljYWwtYWxpZ2 46IHRvcDsnPjMyIFllYXJ fFJ54GO77uDXa l2Q2nHH8J6WwBQAcbrphe hsisXT7MTYgONLiwR60wN HxHFjxEk8wc6J1k851GPZ oITVnmF14Zz3h vIynBPJneNFZyC6kvykke 1ealsgeAhWnHOTyYGb7QN f1MXQjbMueBuZmMKC6LkQ 1VPW1wUAcfJ8r xMrlteeiwA1rZxm+RmVtY GmxNJ60LT82gPTjj6B2pI C3K4XmXEHxuzebhshecMJ 9LLZvWJShqA48 xMAxTLtmXh0nq9Q3g574K JPyETJqzM11Sp3ceSmiNZ CcvZNEfR2wlxabt6vsxec gIzAwMDAwMDt0 QZu8ZVCkaHkmNkUhOVS7U pU6AIO0fMLqjL1ewCvtaq ashU3tWwi+AL5tpsvdluL 9NX69FR69N9Fm PjwvdGFibGU+PHRhYmxlI HdpZHRoPScxMDAlJyBzdH jxNH3bRt3qBUFnUDQkmNj yzVYbTiBze3pq COPrNXylPI9piUbbP5Owf ST4BXEca8a4Of48U92mM4 JvdXA+TURgbEC5zLF2eC4 lLgRgYlA9BBme J274ZjFfvEVmHskmb1uaj 4hapRt1ToLlJXEftpTonP loREX2k0WlEy64T77mIOm pZHRoPSIyMCUi LJNreOhrjy1tyZ6iWh7+P YNocBR0vOF9xY9mUvCiCq G6EEujH510PoGoyXBbNzz aP09rW5DthHM+ RSTtUew4MZDnpBkgVI5el EKdSLkuSz0aOSG0VdEiIn YiYMcqU1TwVDJyxrwvgrg xiVC1JZFzLGYm mO09Bh3kbHjaOv7jHMJlG KT1UCKuuAOgU7LwhL2mJh QdRGFvBLQhA6KqbTGfZEy nU552DNtuLyS4 NQGautTwQ3CvYKQqtHbvX yI1p2S2Oh5UhHdhzALkMA 6qVsBvBGq3P5JaTgv0NTE ohRhgBR4kvXVb CPxdTd8uaZypjHnvNX4qC TVaofyte138ExKla6nmMA CiiOLkLVpiYMQ1Y32hr7M 5PUIxLLUoPDR3 jEF9iX5lvUnmzoljeJPzc DsgdmVydGljYWwtYWxpZ2 33FEPpzOljIpCVIds4E8L qIvi2ODSqrWex FG3bpQOoJDyoUe7ouQhsd XdtBU2gICCzkgwko137Yq Yal6cdPPKndFNhABxtUWB 7O13zt5N7AVOz VJEsGVT9bCJ1aB2gyJizg jogbGVmdDsgdmVydGljYW wdDJzdX077HELqvPmfRy5 JIeb8R3HoGkk2 GEMtsSdhUK4ydDUvDBjiK c8raKpneJukVD4tTCEohn pdx373XdNdi1zkZJPwePU oLMedYAK5M45r w5E0NRGvDBFyCJF6pZR1v I4nlFdfcodwuRPnqOrvax OpcYvkCPhpKYiwD834OXG vcDsnPlBheWVy OjwvdGQ+QQ60og67R9NvR lxnNpg0NQUlCYA5oXA0nD 2zXDTkGEsyu2A9aCB8E4C rglDwjh6rj9gx YXBz (more content not included)... Normal [facility] Auto Diffon 03-12-2021 Basophils/100 WBC (Bld) 0.2 % Normal 0.0-2.0 [facility] Comment on above: Order Comment: Order Added by Discern Expert. Performed By: #### 2 153994, 0020480, 4982066, 4941990, 15754773, 74997731, 51042134 ####[address] [address] Basophils/Leukocyte s Auto (Bld) [Pure # fraction] 0.0 E9/L Normal 0.0-0.2 [facility] Comment on above: Order Comment: Order Added by Discern Expert. Performed By: #### 2 994200, 0371766, 3286675, 4920923, 60162976, 57830224, 37890174 ####[address] [place] [address] Eosinophils/100 WBC (Bld) 0.0 % Normal 0.0-8.0 [facility] Comment on above: Order Comment: Order Added by Discern Expert. Performed By: #### 2 223177, 1793544, 4604625, 6682585, 89885164, 11862374, 80606652 ####[facility] [address] [place] [address] Eosinophils/Leukocy jacinta Auto (Bld) [Pure # fraction] 0.0 E9/L Normal 0.0-0.5 [facility] Comment on above: Order Comment: Order Added by Discern Expert. Performed By: #### 2 790699, 1777171, 4609390, 9452234, 61582742, 26666334, 59615675 ####[address] [place] [address] Lymphocytes/100 WBC (Bld) 19.4 % Normal 14.0-50.0 [facility] Comment on above: Order Comment: Order Added by Discern Expert. Performed By: #### 2 902889, 1408673, 7802741, 8079267, 06945518, 82970666, 50585175 ####[address] [place] [address] Lymphocytes/Leukocy jacinta Auto (Bld) [Pure # fraction] 1.0 E9/L Normal 1.0-4.0 [facility] Comment on above: Order Comment: Order Added by Discern Expert. Performed By: #### 2 572423, 1612934, 1054431, 6112852, 71115697, 24884961, 49923232 ####[address] [address] Monocytes/100 WBC (Bld) 6.9 % Normal 4.0-14.0 [facility] Comment on above: Order Comment: Order Added by Discern Expert. Performed By: #### 2 474868, 1062441, 4444513, 3780522, 23364993, 94564926, 99958648 ####[address] [place] [address] Monocytes/Leukocyte s Auto (Bld) [Pure # fraction] 0.3 E9/L Normal 0.2-1.0 [facility] Comment on above: Order Comment: Order Added by Discern Expert. Performed By: #### 2 456821, 5536730, 3867504, 1359219, 16663086, 24276834, 46804048 ####[address] [address] Neutrophils/100 WBC (Bld) 73.5 % Normal 36.0-75.0 [facility] Comment on above: Order Comment: Order Added by Discern Expert. Performed By: #### 2 691334, 4053124, 9014548, 9418225, 76920524, 68784294, 68819289 ####[facility] [address] [place] [address] Neutrophils/Leukocy jacinta Auto (Bld) [Pure # fraction] 3.6 E9/L Normal 2.0-7.5 [facility] Comment on above: Order Comment: Order Added by Discern Expert. Performed By: #### 2 296337, 5427195, 3944415, 6442972, 96947630, 42541572, 22079057 ####[facility] [address] [place] [address] BMPon 03-12-2021 Creatinine [Mass/Vol] 0.8 mg/dL Normal 0.5-1.3 [facility] Comment on above: Performed By: #### 2 836023, 3232813, 1647612, 5871187, 89416313, 20868542, 96512575 ####[facility] [address] [place] [address] Urea nitrogen [Mass/Vol] 8 mg/dL Normal 5-21 [facility] Comment on above: Performed By: #### 2 650281, 1962808, 3175618, 2275922, 72654915, 98272289, 67362075 ####[facility] [address] [place] [address] Urea nitrogen/Creatinine [Mass ratio] 10 No Units Normal 10-20 [facility] Comment on above: Performed By: #### 2 692796, 9086055, 2197994, 3987883, 75987441, 78303315, 10716117 ####[facility] [address] [place] [address] Anion gap [Moles/Vol] 16 mmol/L Normal 6-16 [facility] Comment on above: Performed By: #### 2 577163, 8782947, 8497181, 0907941, 01304783, 50380267, 97540353 ####[facility] [address] [place] [address] Calcium [Mass/Vol] 8.3 mg/dL Low 8.9-11.1 [facility] Comment on above: Performed By: #### 2 067670, 8882175, 6000685, 9974072, 24590385, 37340805, 73176772 ####[facility] [address] [place] [address] Chloride [Moles/Vol] 99 mmol/L Low 101-111 [facility] Comment on above: Performed By: #### 2 115354, 1668811, 1440715, 8775051, 94693780, 74492455, 65227715 ####[facility] [address] [place] [address] CO2 [Moles/Vol] 21 mmol/L Normal 21-31 [facility] Comment on above: Performed By: #### 2 723273, 1269841, 5833228, 9837138, 82911524, 82338086, 15631187 ####[facility] [address] [place] [address] Glucose [Mass/Vol] 127 mg/dL Normal 55-199 [facility] Comment on above: Result Comment: If t his glucose result represents a fasting glucose, interpretation should refer to the following reference range: 55-99 mg/dL Performed By: #### 2 450593, 1474994, 9792533, 7864461, 53300312, 25074384, 11437608 ####[facility] [address] [place] [address] Potassium [Moles/Vol] 3.5 mmol/L Normal 3.5-5.3 [facility] Comment on above: Performed By: #### 2 428724, 7750592, 7319158, 0943952, 04420392, 50820538, 75090704 ####[facility] [address] [place] [address] Sodium [Moles/Vol] 132 mmol/L Low 135-145 [facility] Comment on above: Performed By: #### 2 170184, 7745726, 6326906, 2482607, 26319272, 31373990, 90643365 ####[address] [place] [address] CBC w/ Auto Diffon Erythrocyte distribution width (RBC) [Ratio] 14.2 % Normal 10.9-14.2 [facility] Comment on above: Performed By: #### 2 375775, 4921669, 5667998, 6310552, 21073451, 41031723, 10838170 ####[address] [place] [address] Hematocrit (Bld) [Volume fraction] 39.9 % Normal 34.0-46.0 [facility] Comment on above: Performed By: #### 2 290340, 2170760, 1272997, 9866648, 56448950, 35929185, 24262208 ####[address] [address] Hemoglobin (Bld) [Mass/Vol] 13.0 g/dL Normal 12.0-16.0 [facility] Comment on above: Performed By: #### 2 483820, 6043578, 6176070, 0181520, 40728920, 10656345, 34454518 ####[address] [place] [address] MCH (RBC) [Entitic mass] 27.3 pg Normal 27.0-34.0 [facility] Comment on above: Performed By: #### 2 494458, 8488212, 8037304, 5512619, 60903635, 89373078, 59058352 ####[address] [place] [address] MCHC (RBC) [Mass/Vol] 32.7 g/dL Normal 31.4-36.0 [facility] Comment on above: Performed By: #### 2 816300, 5836745, 8314023, 0127672, 52374094, 04397061, 13376593 ####[address] [place] [address] MCV (RBC) [Entitic vol] 83.4 fL Normal 80.0-100.0 [facility] Comment on above: Performed By: #### 2 174438, 3790338, 2183046, 5470228, 14147806, 77022933, 63716762 ####[address] [address] Platelet mean volume (Bld) [Entitic vol] 7.8 fL Normal 6.4-10.8 [facility] Comment on above: Performed By: #### 2 600521, 7599487, 6779952, 5490581, 91365922, 40006834, 63281912 ####[address] [address] Platelets (Bld) [#/Vol] 188.0 E9/L Normal 150.0-500.0 [facility] Comment on above: Performed By: #### 2 942275, 2936655, 5179997, 3908958, 87735069, 97826571, 96373862 ####[address] [address] RBC (Bld) [#/Vol] 4.8 E12/L Normal 4.3-5.9 [facility] Comment on above: Performed By: #### 2 884443, 7076629, 8714866, 0609652, 89108860, 81401167, 01742073 ####[address] [address] WBC corrected for nucl RBC Auto (Bld) [#/Vol] 4.9 E9/L Normal 4.0-11.0 [facility] Comment on above: Performed By: #### 2 714866, 5660041, 9319021, 0017134, 23647052, 95931295, 87221839 ####[address] [address] CTA Cheston 03-12-2021 CTA Chest Exam Date/Time: [...] 370 Contrast amount in ml's: 79 Normal [facility] Consent for Treatmenton Consent for Treatment [id number]:127 Normal [facility] D-Dimeron 03-12-2021 Fibrin D-dimer FEU (PPP) [Mass/Vol] 586 [id number] Abnormal 215-500 [facility] Comment on above: Result Comment: Resu lts Verified By Repeat Analysis Results Called To DANIEL ADAMS/ER By QUETA And Read Back For Confirmation [...] infections Liver cirrhosis Performed By: #### 2 [id number], [id number], [id number], [id number], [id number], [id number], [id number] ####[facility] [address] [place] [address] Discharge Instructionson Discharge Instructions [id number]# 1.00CD:127 Normal [facility] ED Clinical Summaryon 2020 ED Clinical Summary [address] [address] ED Clinical Summary Person Information Name: ED MURPHY [facility] Age: 30 Years : 1990 Sex: Female Language: Colombian PCP: Tricia Dewey CNP Marital Status: Phone: [phone] MRN: Visit Id: Visit Reason: Fever; Diarrhea; [...] 03/12/2021 12:55:56 03/12/2021 12:55:56 03/12/2021 12:55:56 ADDRESS: [address] [place] [id number] PHYS DOC NOTES: MEDICAL INFORMATION: Prescriptions Given: New Medications [facility] [place], [place] [id number], [phone] albuterol (albuterol CFC free 90 mcg/inh Inh [...] Follow up: With: Address: When: Tricia Dewey [address] [place] [address], [facility], [address] [place] [address] Business (1) In 3 days DIAGNOSIS: COVID-19; Near syncope Normal [facility] ED Note-Physicianon 03-12-20 ED Note-Physician Basic Information [...] puff(s), Inhalation, QID, 8 gram, Refill(s) 0, [facility], 173, cm, 03/12/21 9:08:00 EST, Height/Length Dosing, 125, kg, 03/12/21 9:08:00 EST, Weight Dosing azithromycin, 250 mg, Oral, As Directed, Take two tabs by mouth on day one, then one tab daily, # 6 tab(s), Refills(s) 0, Pharmacy: [facility], 173, cm, 03/12/21 9:08:00 EST, Height/Length Dosing, 125, kg, 03/12/21 9:08:00 EST, Weight Dosing dexamethasone, 6 mg = 1 tab(s), Oral, Daily, X 7 day(s), # 7 tab(s), Refills(s) 0, Pharmacy: [facility], 173, cm, 03/12/21 9:08:00 EST, Height/Length [...] Information Tricia Dewey In 3 days [address] [facility], [address] [place] [address]- Business (1) Additional Instructions: Problem List/Past Medical [...] Past, denies, (more content not included)... Normal [facility] Comment on above: Result Comment: Elec tronically Signed By: Tal Gonzalez DO\.br\Date and Time Signed: 03/12/21 12:46 EST ED Patient Education Noteon 03-12-2021 ED Patient Education Note Normal [facility] ED Patient Summaryon 021 ED Patient Summary [address] [address] Patient Discharge Instructions Person Information Name: ED MURPHY Age: 30 Years Arrival Date: 03/12/2021 08:55:19 Discharge Diagnosis: COVID-19; Near syncope Primary Care Physician: Tricia Dewey CNP Provider Information Primary Provider: Tal Gonzalez DO Advanced Gill Box Tender:None The exam and treatment you received in the Emergency Department were for an urgent problem and are not intended as complete care. It is important that you follow up with a doctor, nurse practitioner, or physician?s commercial lending assistant for ongoing care. If your symptoms [...] Follow-up Instructions: With: Address: When: Tricia Dewey [address] [place] [address], [address] [place] [phone] [facility] (1) In 3 days In the event that this physician does not participate in your insurance network, please consult with your insurance company to find a nearby participating provider. Patient Education Materials: A MESSAGE TO ALL PATIENTS REGARDING OPIOIDS PRESCRIPTION OPIOIDS: WHAT YOU NEED TO KNOW Prescription opioids can be used to help relieve jgbivyos-bw-zrhpim pain and are often prescribed following a [...] guidance from the Food and Drug Administration (www.fda.gov/Drugs/Re sourcesForYou). ? Visit www.cdc.gov/drugoverd ose to learn about the risks of opioids abuse and overdose. ? If you believe you may be struggling with addiction, tell your health ocular care technician and ask for guidance or call SAMHSA?S National Helpline at 5-369-481-HELP. v Source: US Department of Health and Human (more content not included)... Normal [facility] PT & PTTon 03-12-2021 aPTT Coag (PPP) [Time] 30.8 second(s) Normal 25.1-36.5 [facility] Comment on above: Result Comment: Hepa rin therapeutic range (represented by Anti-Factor Xa activity of 0.2 - 0.4 U/mL) corresponds to PTT of 56.6 - 109.0 sec. Performed By: #### 2 [id number], [id number], 2054586, 4726761, 15744792, [id number], [id number] ####[facility] [address] [place] [address] INR Coag (PPP) [Relative time] 1.2 {INR} Invalid Interpretation Code [facility] Comment on above: Result Comment: INR results are specifically intended to assess patients stabilized on long-term Anticoagulation therapy suggested INR?s ?Less Intensive Anticoagulation? 2.0 ? 3.0 Conventional Range 3.0 ? 4.5 Performed By: #### 2 339186, 1532224, 0800847, 0341095, [id number], 13271114, [id number] ####[facility] [address] [place] [address] PT Coag (PPP) [Time] 14.1 second(s) High 10.2-12.9 [facility] Comment on above: Performed By: #### 2 659753, 1494185, 9845455, 0757116, 69863204, 55754437, [id number] ####[facility] [address] [place] [address] Troponin 0 Hr.on 03-12-2021 Troponin I.cardiac [Mass/Vol] 3.90 pg/mL Low 10.10-27.10 [facility] Comment on above: Result Comment: The 95% CI (Confidence Interval) PPV (Positive Predictive Value) for myocardial infarction in females is 38 pg/mL, in males 51 pg/mL. The results should be used in conjunction with clinical conditions of myocardial infarction. (Access High Sensitivity Troponin I Instructions For Use, Randell Cony, November 2017) Performed By: #### 2 563243, 3569219, 4501528, 3412573, [id number], [id number], [id number] ####[facility] [address] [place] [address] XR Chest Single Viewon 03-12 XR Chest [...] DO Transcribed by: ROBERT Technologist: FAUSTINA Shepherd [facility] eGFRon 03-12-2021 GFR/1.73 sq M.predicted among blacks MDRD (S/P/Bld) [Vol rate/Area] mL/min/{1.73_m2} Normal >=59 [facility] Comment on above: Order Comment: Order added by Discern Expert. Result Comment: eGFR is race adjusted. AA=. Performed By: #### 2 208881, 7672717, 5751009, 4009015, 73687360, 29991573, [id number] ####[facility] [address] [place] [address] GFR/1.73 sq M.predicted among non-blacks MDRD (S/P/Bld) [Vol rate/Area] mL/min/{1.73_m2} Normal >=59 [facility] Comment on above: Order Comment: Order added by Discern Expert. Result Comment: Greenhouse Specialist nandini kidney disease could be indicated at eGFR's of less than 60 mL/min/1.73m2. Kidney failure is indicated at less than 15 mL/min/1.73m2. Performed By: #### 2 397335, 5407488, 6789024, 8840167, 30332856, 04199155, [id number] ####[facility] [address] [place] [address] Consent for Treatmenton 0 Consent for Treatment [id number] .00CD:127 Normal [facility] Physician Orderon 03-10-2021 Physician Order [id number]# 1.00CD:127 Normal [facility] XR Chest 2 Viewson XR Chest 2 [...] Davis DO Transcribed by: ROBERT Technologist: ISAAC [facility] Vital Signs Date Time Vital Sign Value Performing Clinician Oseas dobbins 02-15-2024 14:26-0500 Body mass index (BMI) [Ratio] 41.77 kg/m2 Flower DE LA PAZ Work Phone: [facility] 02-15-2024 14:26-0500 Body weight 126.46 kg Flower DE LA PAZ Work Phone: [facility] 02-15-2024 14:26-0500 Diastolic blood pressure 80 mm[Hg] Flower Otero PA Work Phone: [facility] 02-15-2024 14:26-0500 Systolic blood pressure 120 mm[Hg] Flower Otero PA Work Phone: [facility] 02-12-2024 08:50-0500 Body mass index (BMI) [Ratio] 41.8 kg/m2 Aquiles Adrian DO Work Phone: [facility] 02-12-2024 08:50-0500 Body weight 126.55 kg Aquiles Adrian DO Work Phone: [facility] 02-12-2024 08:50-0500 Diastolic blood pressure 72 mm[Hg] Aquiles Adrian DO Work Phone: [facility] 02-12-2024 08:50-0500 Systolic blood pressure 118 mm[Hg] Aquiles Adrian DO Work Phone: [facility] Encounters Encounter Date Encounter Type Care Provider Facility Start: 03-02-2024 End: 03-03-2024 Clinisync Result Encounter Aquiles Adrian DO Work Phone: [facility] Unsolicited Start: 03-02-2024 End: 03-03-2024 Clinisync Result Encounter Aquiles Adrian DO Work Phone: [facility] Unsolicited Start: 02-15-2024 End: 02-15-2024 Bamboo flowsheet Flower DE LA PAZ Work Phone: [facility] Start: 02-15-2024 End: 02-24-2024 Bamboo flowsheet Flower DE LA PAZ Work Phone: [facility] Start: 02-15-2024 End: 02-24-2024 Clinisync Result Encounter Flower DE LA PAZ Work Phone: [facility] Unsolicited Start: 02-15-2024 End: 02-15-2024 Patient encounter procedure Flower DE LA PAZ Work Phone: [facility] Work Phone: Start: 02-15-2024 End: 02-15-2024 [...] 02-12-2024 Office outpatient visit 15 minutes Aquiles Campbell DO Work Phone: [facility] Comment [...] End: 02-15-[address] AQUILES CAMPBELL . Facility: Procedures Date Procedure Procedure Detail Performing Clinician Start: 03-02-2024 ALL PROGESTERONE Aquiles Campbell DO Work Phone: Start: 02-15-2024 IGP,APTIMA HPV,AGE GDLN Flower Otero PA Work Phone: Plan of Treatment Date Care Activity Detail Author Start: 06-11-2024 End: 06-11-2024 Patient encounter procedure 06/11/2024 8:40 AM EST Office Visit [facility] [address] [place] [address] Aquiles Campbell DO [address] [place] [address] [facility] Start: 02-15-2024 End: 02-15-2024 Patient encounter procedure [facility] Comment on above: Arrived Start: 02-12-2024 End: 02-12-2024 Patient encounter procedure 02/12/2024 8:50 AM EST Office Visit [facility] [address] [place] [id number] Aquiles Campbell, DO [address] [place] [address] Arrived [facility] Comment on above: Arrived Cytology Cervical or vaginal smear or scraping study Pap Smear Pathology and Cytology Routine Well woman exam with routine gynecological exam Ordered: 02/15/2024 [facility] Work Phone: Comment on above: Ordered: 02/15/2024 Human papilloma viru s DNA [Presence] in Unspecified specimen by Probe with amplification HPV DNA probe, amplified Microbiology Routine Well woman exam with routine gynecological exam Ordered: 02/15/2024 [facility] Comment on above: Ordered: 02/15/2024 Payers Date Payer Category Payer [facility] er [id number] 2023 Unknown [id number] 1990 Unknown [id number] 2.16.840.1.179280.3.579. 2.593 1990 Unknown [id number] 2.16.840.1.361683.3.579. 2.593 1988 Unknown [id number] 2.16.840.1.991578.3.579. 2.593 1988 Unknown [id number] 2.16.840.1.417339.3.579. 2.593 1988 Unknown [id number] 2.16.840.1.932404.3.579. 2.593 1988 Unknown [id number] 2.16.840.1.740577.3.579. 2.593 1988 Unknown [id number] 2.16.840.1.071069.3.579. 2.593 1988 Unknown [id number] 2.16.840.1.957905.3.579. 2.593 1988 Unknown [id number] 2.16.840.1.462896.3.579. 2.593 1988 Unknown [id number] 2.16.840.1.064393.3.579. 2.593 1988 Unknown [id number] 2.16.840.1.860389.3.579. 2.593 1988 Unknown [id number] 2.16.840.1.109802.3.579. 2.593 1988 Unknown [id number] 2.16.840.1.019504.3.579. 2.1259 1988 Unknown [id number] 2.16.840.1.656084.3.579. 2.1259 1959 Private Health Insurance [id number] Social History Date Type Detail Facility Start: 12-01-2022 Tobacco smoking stat [facility] Never smoked tobacco [facility] Start: 08-24-2023 End: 02-15-2024 Alcoholic beverage intake Lifetime non-drinker (finding) [facility] Start: 12-01-2022 End: 08-24-2023 History of Social function [facility] Start: 12-01-2022 End: 08-24-2023 Tobacco [...] split. 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 Exam conducted with a board certified arts therapist present. Vitals: Estimated body mass index is [...] appointment. 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 Exam conducted with a board certified arts therapist present. Vitals: Estimated body mass index is [...] section and content) DATE CREATED AUTHOR 07/05/2021 Barrios SaludFÁCIL [facility] DATE CREATED AUTHOR AUTHOR'S ORGANIZ ATION 08/23/2022 [facility] DATE CREATED AUTHOR AUTHOR'S ORGANIZ ATION 02/17/2024 [facility] EPIC Reason for Visit [...] BE BASED ON THE PRIMARY CLINICAL RECORDS. [facility] [employer] [facility]. provides no warranty or guarantee of the accuracy or completeness of information in this document.
[2024-03-11 12:31] LABS: HCG Quantitative 59 mIU/mL
== END 2024-03-11 11:15 | disposition home or self-care (01) ==
LOC: LAB 11:15
PROVIDERS: Visit Provider Obstetrics & Gynecology
DX: O09.299 Supervision of pregnancy with other poor reproductive or obstetric history, unspecified trimester (principal); N92.6 Irregular menstruation, unspecified
CPT/HCPCS: 36415; 84702

== ENCOUNTER 2024-03-13 11:15 | Outpatient (RCR) | payer BC, SELFPAY ==
[2024-03-13 12:12] LABS: HCG Quantitative 184 mIU/mL
[2024-03-15 11:59] LABS: HCG Quantitative 420 mIU/mL
[2024-03-18 07:26] LABS: HCG Quantitative 1345 mIU/mL
[2024-03-20 07:36] LABS: HCG Quantitative 2902 mIU/mL
[2024-03-22 07:51] LABS: HCG Quantitative 5107 mIU/mL
[2024-03-23 09:14] LABS: HCG Quantitative 7110 mIU/mL
== END 2024-04-09 10:40 | disposition home or self-care (01) ==
LOC: LAB 11:15
PROVIDERS: Visit Provider Obstetrics & Gynecology
DX: O09.299 Supervision of pregnancy with other poor reproductive or obstetric history, unspecified trimester (principal); Z3A.00 Weeks of gestation of pregnancy not specified; N92.6 Irregular menstruation, unspecified
CPT/HCPCS: 36415; 84702

== ENCOUNTER 2024-04-11 13:58 | Outpatient (OUT) | payer BC, SELFPAY ==
[2024-04-11 14:29] LABS: Basophils Percent Auto 0.4 % (0.2-2.0); Eosinophils Absolute Auto 0.1 10^3/uL (0.0-0.7); Eosinophils Percent Auto 0.6 % (0.9-7.0); Hematocrit 40.6 % (36.0-48.0); Hemoglobin 13.1 g/dL (12.0-16.0); Immature Granulocytes Abs Auto 0.03 10^3/uL (0.00-0.03); Immature Granulocytes Pct Auto 0.3 % (0.0-0.5); Lymphocytes Absolute Auto 1.9 10^3/uL (1.2-3.8); Lymphocytes Percent Auto 19.1 % (20.5-60.0); Mean Corpuscular HGB Conc 32.3 g/dL (29.9-35.2); Mean Corpuscular Hemoglobin 27.9 pg (26.7-34.0); Mean Corpuscular Volume 86.6 fL (81.0-99.0); Mean Platelet Volume 9.3 fL (9.5-13.5); Monocytes Absolute Auto 0.5 10^3/uL (0.3-0.8); Monocytes Percent Auto 5.4 % (1.7-12.0); Neutrophils Absolute Auto 7.4 10^3/uL (1.4-6.5); Neutrophils Percent Auto 74.2 % (43.0-75.0); Platelet Count 380 10^3/uL (150-450); Red Blood Count 4.69 10^6/uL (4.20-5.40); Red Cell Distribution Width 14.1 % (11.0-15.0); White Blood Count 9.9 10^3/uL (4.0-11.0)
[2024-04-11 14:47] LABS: Estimated Average Glucose 103 mg/dL; Glycohemoglobin A1C 5.2 % (4.5-6.2)
[2024-04-11 14:55] LABS: Amphetamine Screen Urine NEGATIVE (NEGATIVE); Barbiturates Screen Urine NEGATIVE (NEGATIVE); Benzodiazepines Screen Urine NEGATIVE (NEGATIVE); Buprenorphine Screen Urine NEGATIVE (NEGATIVE); Cannabinoid Screen Urine NEGATIVE (NEGATIVE); Cocaine Screen Urine NEGATIVE (NEGATIVE); Methadone Screen Urine NEGATIVE (NEGATIVE); Methamphetamines Screen Urine NEGATIVE (NEGATIVE); Opiate Screen Urine NEGATIVE (NEGATIVE); Oxycodone Screen Urine NEGATIVE (NEGATIVE); Phencyclidine Screen Urine NEGATIVE (NEGATIVE); Tricyclic Antidepressant Urine NEGATIVE (NEGATIVE)
[2024-04-12 06:07] LABS: HBsAg Screen Negative (Negative); HCV Ab Non Reactive (Non Reactive); HIV Ab/p24 Ag Screen Non Reactive (Non Reactive); Rubella Antibodies, IgG 1.85 index (Immune >0.99)
[2024-04-12 08:00] LABS: BOX Test Reference Lab FIRELANDS
[2024-04-12 13:08] LABS: Rapid Plasma Reagin, Quant Non Reactive titer (NonRea<1:1)
== END 2024-04-11 13:59 | disposition home or self-care (01) ==
LOC: LAB 13:59
PROVIDERS: Visit Provider Obstetrics & Gynecology
DX: Z34.90 Encounter for supervision of normal pregnancy, unspecified, unspecified trimester (principal); N92.6 Irregular menstruation, unspecified
CPT/HCPCS: 80307; 83036; 85025; 86592; 86762; 86803; 86850; 86900; 86901; 87086; 87340; 87389

== ENCOUNTER 2024-08-27 09:51 | Outpatient (OUT) | payer BC, SELFPAY ==
--- OUTSIDE RECORDS SUMMARY | 2024-08-27 09:58 | XMS_ITS | CCD ---
Author Organization [facility] Care Team Providers Care Safety Intern Name Role Phone ADRIAN ., DR KWAN [...] ASHRAF LISTED Primary Care Unavaila ble REQUEST, NONE LISTED Primary Care Unavaila ble ADRIAN ., DR KWAN Admitting Unavailable ADRIAN ., DR KWAN Attending Unavailable Unavailable Primary Care Provider Unavailabl e Adrian, Aquiles Attending Unavailable Adrian, Aquiles Admitting Unavailable Adrian DO, Aquiles Attending Provider ADRIAN, AQUILES Attending Unavailable ADRIAN, AQUILES Attending Unavailable ADRIAN, AQUILES Referring Unavailable SHANNA FLOWER Attending Unavailable ADRIAN, AQUILES Attending Unavailable ADRIAN, AQUILES Attending Unavailable SHANNA, FLOWER Attending Unavailable Unavailable Primary Care Provider Unavailabl e ADRIAN, AQUILES R Referring Unavailable Allergies Allergy Classification Reported Allergen(s) Allergy Type Date of Onset Reaction(s) Facility (1 source) Cefadroxil Drug Allergy [facility] (1 source) natural latex rubber Drug allergy (disorder) [facility] (20 sources) Cefadroxil; Translations: [CEFADROXIL] Drug Allergy 3 [facility] (20 sources) Latex; Translations: [LATEX] Allergy to substance 3 [facility] (20 sources) PARoxetine; Translations: [PAROXETINE] Drug Allergy [address] [facility] (1 source) Latex Propensity to adverse reactions to drug 5 Itching [facility] Medications Current Medications Medication Drug Class(es) Dates Sig (Normalized) Sig (Original) Blood Glucose Monitoring Suppl (D-Care Glucometer) w/Device kit (3 sources) Start: 07-25-2024 End: 07-25-2025 Blood Glucose Monitoring Suppl (D-Care Glucometer) w/Device kit Indications: Gestational diabetes mellitus (GDM), antepartum, gestational diabetes method of control unspecified , Elevated glucose tolerance test 1 kit Daily Use four times daily to check FSBS. In the morning prior to breakfast & 1 hour after each meal for a total of 4times daily. 1 kit 07/25/2024 07/25/2025 Active 12 hr guaiFENesin 600 mg extended release oral tablet (11 sources) take 1 tablet by mouth in the morning, then take 1 tablet by mouth every twelve hours at bedtime guaiFENesin (Mucinex) 600 MG 12 hr tablet Take 1,200 mg by mouth in the morning and 1,200 mg before bedtime. Do not crush, chew, or split.. Active isopropyl alcohol 0.7 ml/ml medicated pad (3 sources) Start: 07-25-2024 Alcohol Swabs (Alcohol Prep Pad) 70 % pads Indications: Gestational diabetes mellitus (GDM), antepartum, gestational diabetes method of control unspecified , Elevated glucose tolerance test Apply 1 Pad topically Daily Use four times daily to check FSBS. 150 each 3 07/25/2024 Active letrozole 2.5 mg oral tablet (5 sources) Aromatase Inhibitor Start: 02-12-2024 End: 02-17-2024 take 1 tablet by mouth once daily letrozole (Femara) 2.5 MG chemo tablet Indications: Anovulation Take 1 tablet (2.5 mg total) by mouth Daily for 5 days. 5 tablet 02/12/2024 02/17/2024 Active Swhtytof-Cpw-Zh-FA ( 1 + IRON PO) (20 sources) Xkrwegqv-Bar-Kg-FA ( 1 + IRON PO) Active vit,jorge alberto 74/iron/folic ( VITAMIN 1+1 ORAL) (1 source) take 1 tablet by mouth in the morning vit,jorge alberto 74/iron/folic ( VITAMIN 1+1 ORAL) Take 1 tablet by mouth in the morning. Active progesterone 200 mg oral capsule (1 source) Progesterone take 1 capsule by mouth in the morning progesterone (PROMETRIUM) 200 mg capsule Take 1 capsule (200 mg total) by mouth in the morning. Active ubidecarenone 30 mg oral capsule (11 sources) take 1 capsule by mouth once daily co-enzyme Q-10 30 MG capsule Take 30 mg by mouth Daily Active Completed/Discontinued Medications Medication Drug Class(es) Dates Sig (Normalized) Sig (Original) Vit-Fe Hfwsrow-YT-ZDO ( VITAMIN/MIN +DHA PO) (20 sources) Start: 06-09-2023 End: 06-03-2024 Vit-Fe Nrztuqm-MH-QFG ( VITAMIN/MIN +DHA PO) 06/09/2023 06/03/2024 Discontinued (Other) Start: 06-09-2023 Vit-F e Znlxdht-AW-KEY ( VITAMIN/MIN +DHA PO) 06/09/2023 Active Progesterone 200 MG supposit ory (17 sources) Start: 03-11-2024 End: 08-01-2024 Progesterone 200 MG supposit ory Indications: H/O miscarriage, currently Insert 1 suppository into the vagina at bedtime 30 suppository 3 03/11/2024 08/01/2024 Discontinued (Therapy completed) Start: 03-11-2024 Progesterone 2 00 MG suppository Indications: H/O miscarriage, currently Insert 1 suppository into the vagina at bedtime 30 suppository 3 03/11/2024 Active Problems Active Problems Problem Classification Problem Date Documented Date Episodic/Chronic Anxiety disorders (5 sources) Anxiety disorder, unspecified; Translations: [Acute stress reaction] Onset: 05-22-2022 Chronic Female infertility (20 sources) Female infertility associated with anovulation; Translations: [Anovulation] Onset: 04-15-2022 Chronic Immunizations and screening for infectious disease (2 sources) Exposure to sexually transmissible disorder; Translations: [Contact with and (suspected) exposure to infections with a predominantly sexual mode of transmission] 06-03-2024 Episodic Menstrual disorders (20 sources) Irregular menstruation, unspecified; Translations: [Disorder of menstruation] Onset: 05-13-2022 Chronic Other complications of (4 sources) Multigravida of advanced maternal age; Translations: [Supervision of elderly multigravida, unspecified trimester] 06-03-2024 Episodic Other female genital disorders (20 sources) Abnormal uterine bleeding; Translations: [Other specified abnormal uterine and vaginal bleeding] Onset: 12-02-2022 12-02-2022 Chronic Other female genital disorders (2 sources) Vaginal discharge; Translations: [Other specified noninflammatory disorders of vagina] 06-03-2024 Episodic Other and delivery including normal (6 sources) First trimester ; Translations: [Encounter for supervision of normal , unspecified, first trimester] 05-02-2024 Episodic Other screening for suspected conditions (not mental disorders or infectious disease) (3 sources) Patient encounter status; Translations: [Encounter for other specified screening] Onset: 08-08-2024 06-03-2024 Episodic Residual codes; unclassified (2 sources) Gestation period, 11 weeks; Translations: [11 weeks gestation of ] 05-02-2024 Episodic Residual codes; unclassified (2 sources) Gestation period, 16 weeks; Translations: [16 weeks gestation of ] 06-03-2024 Episodic Residual codes; unclassified (2 sources) Gestation period, 24 weeks; Translations: [24 weeks gestation of ] 08-01-2024 Episodic Past or Other Problems Problem Classification Problem Date Documented Da te Episodic/Chronic Hemorrhage during ; abruptio placenta; placenta previa (20 sources) Hemorrhage in early , unspecified; Translations: [Antepartum hemorrhage] Onset: 05-17-2022 Resolved: 12-02-2022 Episodic Mycoses (20 sources) Mycosis; Translations: [Candidiasis, unspecified] Onset: 12-02-2022 [...] Test Name Value Interpretation Reference Range Facility US OB LIMITED 1+ FETUSESon 0 08-01-2024 OB LIMITED 1+ FETUSES EXAM: US OB LIMITED 1+ FETUSES HISTORY: Incomplete anatomy. A1. KAY 11/17/2024. COMPARISON: U/S Ob 07/01/2024, 04/12/2024. TECHNIQUE: Two-dimensional transabdominal grayscale ultrasound imaging of the pelvis was performed. FINDINGS: This is a technically difficult limited study due to maternal body habitus. Gestation: Single Presentation: Cephalic Cardiac Activity: 168 beats per minute ANATOMY Four Chamber Heart: Not visualized LVOT: Unremarkable RVOT: Not visualized Nose/Lips: Not visualized IMPRESSION: 1. Single, live intrauterine gestation 24 weeks, 4 days by LMP. 2. Four-chamber heart, RVOT and nose/lips are again not visualized. LVOT is unremarkable. Interpreted by: Electronically signed by MEGHANN KNIGHT II, MD, PHD at 01-Aug-2024 11:20:36 PM [facility] Normal Not Available Comment on above: Order Comment: US OB INCOMPLETE ANATOMY Estimated Date of Delivery: 11/17/24 Gestational Age as of 07/08/2024: 21w1d RECURRENT VAGINITIS (HTRX)on 06-04-2024 ATOPOBIUM VAGINAE 0 [facility] ATOPOBIUM VAGINAE Not detected [facility] (BACTERIAL VAGINOSIS ASSOCIATED BACTERIA 2, 3); MOBILUNCUS SPP 0 [facility] BVAB 2,3 (BACTERIAL VAGINOSIS ASSOCIATED BACTERIA 2, 3); MOBILUNCUS SPP Not detected [facility] NICA ALBICANS, PARAPSILOSIS, TROPICALIS 0 [facility] NICA ALBICANS, PARAPSILOSIS, TROPICALIS Not detected [facility] NICA GLABRATA 0 [facility] NICA GLABRATA Not detected [facility] NICA KRUSEI 0 [facility] NICA KRUSEI Not detected [facility] CHLAMYDIA TRACHOMATIS 0 [facility] CHLAMYDIA TRACHOMATIS Not detected [facility] GARDNERELLA VAGINALIS 29.376 Abnormal [facility] GARDNERELLA VAGINALIS Detected Abnormal [facility] Interpretation and review of laboratory results Abnormal [facility] MEGASPHAERA (TYPES 1, 2) 0 [facility] MEGASPHAERA (TYPES 1, 2) Not detected [facility] MYCOPLASMA GENITALIUM 0 [facility] MYCOPLASMA GENITALIUM Not detected [facility] NEISSERIA GONORRHOEAE 0 [facility] NEISSERIA GONORRHOEAE Not detected [facility] TRICHOMONAS VAGINALIS 0 [facility] TRICHOMONAS VAGINALIS Not detected [facility] US OB 14+ WEEKS ANATOMY SCAN on 06-03-2024 US OB 14+ WEEKS ANATOMY SCAN EXAM: US OB 14+ WEEKS ANATOMY SCAN HISTORY: anatomy. COMPARISON: OB ultrasound 04/12/2024. TECHNIQUE: Two-dimensional transabdominal grayscale ultrasound imaging of the pelvis was performed. FINDINGS: Gestation: Single Presentation: Breech Cardiac Activity: 164 beats per minute Placental Location: Posterior with no sonographic abnormalities identified. Distance from Placental Tip to Cervix: 4.6 cm Cervical Length: 4.9 cm Amniotic Fluid: Appears adequate MEASUREMENTS: BPD: 4.3 cm EGA: 19 weeks 1 days HC: 17.3 cm EGA: 19 weeks 6 days AC: 15.2 cm EGA: 20 weeks 3 days FL: 3.4 cm EGA: 20 weeks 5 days HC/AC Ratio: 1.14 The gestational age by today's ultrasound is 20 weeks 0 days (+/- 10 days gestation). Estimated Weight: 351 grams, +/- 53 grams ( 0 lb 12 oz). Weight Percentile for gestational age: 60 % ANATOMY C-Spine: Unremarkable T-Spine: Unremarkable L-Spine: Unremarkable Sacrum: Unremarkable Four Chamber Heart: Limited LVOT: Not visualized RVOT: Not visualized Stomach: Unremarkable Kidneys: Unremarkable Bladder: Unremarkable Diaphragm: Unremarkable Cord insertion: Unremarkable Cord vessels: Three Lateral Ventricles: Unremarkable Cerebellum: Unremarkable Cisterna Magna: Unremarkable Posterior Fossa: Unremarkable Right Femur: Unremarkable Left Femur: Unremarkable Right Tib/Fib: Unremarkable Left Tib/Fib: Unremarkable Right Rad/Ulnar: Unremarkable Left Rad/Ulnar: Unremarkable Right Humerus: Unremarkable Left Humerus: Unremarkable Nose/Lips: Not visualized Orbits: Unremarkable IMPRESSION: 1. Single, live intrauterine gestation 20 weeks, 1 days by LMP. Today's ultrasound measurements correlate with a gestational age of 20 weeks 0 days. Estimated weight is 351 grams, +/- 53 grams ( 0 lb 12 oz) which correlates to 60 %. KAY is 11/18/2024. 2. Unremarkable anatomy with limited visualization of the four-chamber heart, outflow tracts and nose/lips. A short-term follow-up ultrasound is recommended. Electronically Signed:Electronically signed by MEGHANN KNIGHT II, MD, PHD at 02-Jul-2024 09:56:12 AM [facility] Normal Not Available Comment on above: Order Comment: US OB ANATOMY SINGLE W US OB CERVICAL LENGTH Estimated Date of Delivery: 11/17/24 Gestational Age as of 06/03/2024: 16w1d Urinalysis macro (dipstick) panel (U)on 06-03-2024 Bilirubin, UA Negative Negative - 4(70) +++ mg/dL [facility] Blood, UA Positive Negative - 50 Alex/mcL [facility] Comment on above: trace-intact Clarity, UA Clear [facility] Color, UA Yellow [facility] Glucose, UA Negative Negative - 2000(110) ++++ mg/dL [facility] Interpretation and review of laboratory results Abnormal [facility] Ketones, UA Positive Negative - 160(16) ++++ mg/dL [facility] Comment on above: 15mg/dL Leukocytes, UA Negative Negative - 500+++ Jodi/mcL [facility] Nitrite, UA Negative Negative - Positive [facility] pH, UA 5.5 5 - 9 [facility] Protein, UA Negative Negative - 1999(20) ++++ mg/dL [facility] Spec Grav, UA 1.02 1 - 1.03 [facility] Urobilinogen, UA 0.2 0.2 - 12 mg/dL [facility] Urinalysis macro (dipstick) panel (U)on 05-02-2024 Bilirubin, UA Trace Negative - 4(70) +++ mg/dL [facility] Blood, UA Negative Negative - 50 Alex/mcL [facility] Clarity, UA Clear [facility] Color, UA Yellow [facility] Glucose, UA Negative Negative - 1999(110) ++++ mg/dL [facility] Interpretation and review of laboratory results Abnormal [facility] Ketones, UA Positive Negative - 160(16) ++++ mg/dL [facility] Leukocytes, UA Negative Negative - 500+++ Jodi/mcL [facility] Nitrite, UA Negative Negative - Positive [facility] pH, UA 6 5 - 9 [facility] Protein, UA Positive Negative - 1999(20) ++++ mg/dL [facility] Spec Grav, UA 1.03 1 - 1.03 [facility] Urobilinogen, UA 0.2 0.2 - 12 mg/dL [facility] ALL CBC WITH AUTO DIFFon BASOPHILS ABSOLUTE AUTO 0 [facility] Basophils/100 WBC (Bld) 0.4 % 0.2 - 2.0 % [facility] Eosinophils/100 WBC (Bld) 0.6 % Low 0.9 - 7.0 % [facility] Erythrocyte distribution width (RBC) [Ratio] 14.1 % 11.0 - 15.0 % [facility] Hematocrit (Bld) [Volume fraction] 40.6 % 36.0 - 48.0 % [facility] Hemoglobin (Bld) [Mass/Vol] 13.1 g/dL 12.0 - 16.0 g/dL [facility] IMMATURE GRANULOCYTES ABS AUTO 0.03 [facility] Immature granulocytes/100 WBC (Bld) 0.3 % 0.0 - 0.5 % [facility] Interpretation and review of laboratory results Abnormal [facility] LYMPHOCYTES ABSOLUTE AUTO 1.9 [facility] Lymphocytes/100 WBC (Bld) 19.1 % Low 20.5 - 60.0 % [facility] MCH (RBC) [Entitic mass] 27.9 pg 26.7 - 34.0 pg [facility] MCHC (RBC) [Mass/Vol] 32.3 g/dL 29.9 - 35.2 g/dL [facility] MCV (RBC) [Entitic vol] 86.6 fL 81.0 - 99.0 fL [facility] MONOCYTES ABSOLUTE AUTO 0.5 [facility] Monocytes/100 WBC (Bld) 5.4 % 1.7 - 12.0 % [facility] NEUTROPHILS ABSOLUTE AUTO 7.4 High [facility] Neutrophils/100 WBC (Bld) 74.2 % 43.0 - 75.0 % [facility] Platelet mean volume (Bld) [Entitic vol] 9.3 fL Low 9.5 - 13.5 fL [facility] TBH EO # 0.1 [facility] PLT 380 [facility] RBC 4.69 [facility] WBC 9.9 [facility] US OB TRANSVAGINALon 025 US OB TRANSVAGINAL TITLE OF EXAM: US OB TRANSVAGINAL REASON FOR EXAM: Dating TECHNIQUE: Grayscale, color, and M-mode Doppler evaluation of the pelvis COMPARISON: None. PATIENT : 1990 PREGNANCIES: : 4, Para: 2, Aborta: 1 LMP: 02/11/2024 KAY by LMP: 11/17/2024 GA by LMP: 8 weeks, 4 days FINDINGS: AUA: 8 weeks, 2 days (+/-5 days) KAY by US: 11/19/2024 Uterus: There is a gestational sac and 0.5 cm yolk sac within the uterine body/fundus. Live embryo within the gestational sac without evident abnormality. Gestational sac 3.3 x 2.4 x 3.6 cm (8 weeks, 0 days). [place] rump length is 1.8 cm (8 weeks, 2 days). heart rate is 184 bpm. No appreciable subchorionic hemorrhage or other abnormality. Cervical length of 5.1 cm. Right ovary: 2.5 x 2.0 x 1.7 cm (volume of 4.5 mL). Present color flow. No appreciable nodule/mass. Left ovary not visualized. IMPRESSION: Single live intrauterine gestation sonographically measuring 8 weeks, 2 days. No appreciable abnormality of the evaluated feline maternal structures. DICTATED ON: 04/12/2024 9:22 AM This report has been electronically signed and approved by the interpreting radiologist. Normal Not Available Comment on above: Order Comment: No LM P recorded. Urine Cultureon 04-11-2024 Bacteria identified Cx Nom (U) No Growth 2 Days PERFORMED BY: [place] [address] PATHOLOGIST SPICE MIXER TOSHA PÉREZ M.D. Normal [facility] Comment on above: Performed By: #### C UU #### [facility] [address] TB PREG QUANT HCGon 024 HCG QUANTITATIVE 7110 mIU/mL [facility] Comment on above: 5-50 0.2-1 WEEK 50-500 1-2 WEEKS 100-5,000 2-3 WEEKS 500-10,000 3-4 WEEKS 1,000-50,000 4-5 WEEKS 10,000-100,000 5-6 WEEKS 15,000-200,000 6-8 WEEKS 10,000-100,000 2-3 MONTHS [facility] PREG QUANT HCGon 024 HCG QUANTITATIVE 5107 mIU/mL [facility] Comment on above: 5-50 0.2-1 WEEK 50-500 1-2 WEEKS 100-5,000 2-3 WEEKS 500-10,000 3-4 WEEKS 1,000-50,000 4-5 WEEKS 10,000-100,000 5-6 WEEKS 15,000-200,000 6-8 WEEKS 10,000-100,000 2-3 MONTHS [facility] PREG QUANT HCGon 024 HCG QUANTITATIVE 2902 mIU/mL [facility] Comment on above: 5-50 0.2-1 WEEK 50-500 1-2 WEEKS 100-5,000 2-3 WEEKS 500-10,000 3-4 WEEKS 1,000-50,000 4-5 WEEKS 10,000-100,000 5-6 WEEKS 15,000-200,000 6-8 WEEKS 10,000-100,000 2-[facility] 024 HCG QUANTITATIVE 1345 mIU/mL [facility] Comment on above: 5-50 0.2-1 WEEK 50-500 1-2 WEEKS 100-5,000 2-3 WEEKS 500-10,000 3-4 WEEKS 1,000-50,000 4-5 WEEKS 10,000-100,000 5-6 WEEKS 15,000-200,000 6-8 WEEKS 10,000-100,000 2-3 MONTHS [facility] PREG QUANT HCGon 024 HCG QUANTITATIVE 420 mIU/mL [facility] Comment on above: 5-50 0.2-1 WEEK 50-500 1-2 WEEKS 100-5,000 2-3 WEEKS 500-10,000 3-4 WEEKS 1,000-50,000 4-5 WEEKS 10,000-100,000 5-6 WEEKS 15,000-200,000 6-8 WEEKS 10,000-100,000 2-3 MONTHS [facility] PREG QUANT HCGon 024 HCG QUANTITATIVE 184 mIU/mL [facility] Comment on above: 5-50 0.2-1 WEEK 50-500 1-2 WEEKS 100-5,000 2-3 WEEKS 500-10,000 3-4 WEEKS 1,000-50,000 4-5 WEEKS 10,000-100,000 5-6 WEEKS 15,000-200,000 6-8 WEEKS 10,000-100,000 2-3 MONTHS [facility] PREG QUANT HCGon 024 HCG QUANTITATIVE 59 mIU/mL [facility] Comment on above: 5-50 0.2-1 WEEK 50-500 1-2 WEEKS 100-5,000 2-3 WEEKS 500-10,000 3-4 WEEKS 1,000-50,000 4-5 WEEKS 10,000-100,000 5-6 WEEKS 15,000-200,000 6-8 WEEKS 10,000-100,000 2-3 MONTHS [facility] ALL PROGESTERONEon 4 PROGESTERONE 9.3 ng/mL . [facility] Comment on above: Follicular phase 0.1 - 0.9 Luteal phase 1.8 - 23.9 Ovulation phase 0.1 - 12.0 First trimester 11.0 - 44.3 Second trimester 25.4 - 83.3 Third trimester 58.7 - 214.0 Postmenopausal 0.0 - 0.1 Performed at: [address], [place], [place] [id number] Certified Registered Locksmith: Josr Jarvis PhD, Phone: [phone] [facility] IGP,APTIMA HPV,AGE GDLNon AGE GDLN ACOG TESTING Note . [facility] Comment on above: TESTS RESULT FLAG UN ITS REF RANGE LAB Clinician Provided Cytology Information Source.............Cervix;Endocervix No. of containers..01 ThinPrep Vial Age Algo ACOG Jacinta... 30-65 01 FLAG LEGEND: L-Low Normal,H-High Normal,LL-Alert Low,HH-Alert High <-Panic Low,>-Panic High,A-Abnormal,AA-Critical Abnormal Performed at: 01 =[address] [address] Stacey Tao MD, HPV APTIMA Negative Negative [facility] Comment on above: This nucleic acid am plification test detects fourteen high- risk HPV types (16,18,31,33,35,39,45,51,52,56,58,59,66,68) without differentiation. Performed at: =[address] [id number] Certified Registered Locksmith: Stacey Tao MD, Phone: [phone] Performed at: - [facility], [place] [id number] Certified Registered Locksmith: Stacey Tao MD, Phone: [phone] IGP, APTIMA HPV, RFX 16/18,45 Note . [facility] Comment on above: TESTS RESULT FLAG UN ITS REF RANGE LAB DIAGNOSIS: 02 NEGATIVE FOR INTRAEPITHELIAL LESION OR MALIGNANCY. Specimen adequacy: 02 Satisfactory for evaluation. Endocervical and/or squamous metaplastic cells (endocervical component) are present. Performed by: Jonathan Mancilla, Asphalt Layer (ASCP) . 02 Note: Note 02 The [...] High <-Panic Low,>-Panic High,A-Abnormal,AA-Critical Abnormal Performed at: [facility] [address] [place] [address] Stacey Tao MD, BRUSH-SPATULA CERVIX ENDOCERVIX [facility] DHEA-SULFATEon 08-23-2022 DHEA-Sulfate 352.0 ug/dL Normal 84.8-378.0 [facility] Comment on above: Performed By: #### L AMY #### [facility] [address] [place] [address] Dr. Nam Keenan FSHon 08-23-2022 FSH 6.7 mIU/mL Normal [facility] Comment on above: Result Comment: Adul t Female: Follicular phase 3.5 - 12.5 Ovulation phase 4.7 - 21.5 Luteal phase 1.7 - 7.7 Postmenopausal 25.8 - 134.8 Performed By: #### [facility] #### [facility] [address] [place] [address] Dr. Nam Keenan LUTEINIZING HORMONE (LH)on 0 08-23-2022 LH 13.7 mIU/mL Normal [facility] Comment on above: Result Comment: Adul t Female: Follicular phase 2.4 - 12.6 Ovulation phase 14.0 - 95.6 Luteal phase 1.0 - 11.4 Postmenopausal 7.7 - 58.5 Performed By: #### L AMY #### [facility] [address] [place] [address] Dr. Nam Keenan CBC AUTO DIFFon 08-22-2022 BASO # 0.1 103/ul Normal 0.0-0.1 [facility] Comment on above: Performed By: #### L AMY #### [facility] [address] [place] [address] Dr. Nam Keenan Basophils/100 WBC (Bld) 0.7 % Normal 0.2-2.0 [facility] Comment on above: Performed By: #### L BCLH #### [facility] [address] [place] [address] Dr. Nam Keenan EO # 0.3 103/ul Normal 0.0-0.7 [facility] Comment on above: Performed By: #### L AMYH #### [facility] [address] [place] [address] Dr. Nam Keenan Eosinophils/100 WBC (Bld) 3.9 % Normal 0.9-7.0 [facility] Comment on above: Performed By: #### L BCL #### [facility] [address] [place] [address] Dr. Nam Keenan Erythrocyte distribution width (RBC) [Ratio] 13.3 % Normal 11.0-15.0 [facility] Comment on above: Performed By: #### L BCLH #### [facility] [address] [place] [address] Dr. Nam Keenan Hematocrit (Bld) [Volume fraction] 38.7 % Normal 36.0-48.0 [facility] [facility] Comment on above: Performed By: #### L BCL #### [facility] [address] [place] [address] Dr. Nam Keenan Hemoglobin (Bld) [Mass/Vol] 12.4 g/dL Normal 12.0-16.0 [facility] Comment on above: Performed By: #### L BCL #### [facility] [address] [place] [address] Dr. Nam Keenan IG # 0.01 10e3/ul Normal 0.00-0.03 [facility] Comment on above: Performed By: #### L BCL #### [facility] [address] [place] [address] Dr. Nam Keenan IG % 0.1 % Normal 0.0-0.5 [facility] Comment on above: Performed By: #### L BCLH #### [facility] [address] [place] [address] Dr. Nam Keenan LYMPH # 2.9 103/ul Normal 1.2-3.8 [facility] Comment on above: Performed By: #### L BCLH #### [facility] [address] [place] [address] Dr. Nam Keenan Lymphocytes/100 WBC (Bld) 34.4 % Normal 20.5-60.0 [facility] Comment on above: Performed By: #### L BCLH #### [facility] [address] [place] [address] Dr. Nam Keenan MANUAL DIFF REQ NO Normal [facility] Comment on above: Performed By: #### L BCL #### [facility] [address] [place] [address] Dr. Nam Keenan MCH (RBC) [Entitic mass] 27.8 pg Normal 26.7-34.0 [facility] Comment on above: Performed By: #### L BCLH #### [facility] [address] [place] [address] Dr. Nam Keenan MCHC (RBC) [Mass/Vol] 32.0 g/dL Normal 29.9-35.2 [facility] Comment on above: Performed By: #### L BCLH #### [facility] [address] [place] [address] Dr. Nam Keenan MCV (RBC) [Entitic vol] 86.8 fL Normal 81.0-99.0 [facility] Comment on above: Performed By: #### L BCL #### [facility] [address] [place] [address] Dr. Nam Keenan MONO # 0.6 103/ul Normal 0.3-0.8 [facility] Comment on above: Performed By: #### L BCL #### [facility] [address] [place] [address] Dr. Nam Keenan Monocytes/100 WBC (Bld) 6.7 % Normal 1.7-12.0 [facility] Comment on above: Performed By: #### L BCLH #### [facility] [address] [place] [address] Dr. Nam Keenan NEUT # 4.6 103/ul Normal 1.4-6.5 [facility] Comment on above: Performed By: #### L BCLH #### [facility] [address] [place] [address] Dr. Nam Keenan Neutrophils/100 WBC (Bld) 54.2 % Normal 43.0-75.0 [facility] Comment on above: Performed By: #### L BCLH #### [facility] [address] [place] [address] Dr. Nam Keenan Platelet mean volume (Bld) [Entitic vol] 9.6 fL Normal 9.5-13.5 [facility] Comment on above: Performed By: #### L AMY #### [facility] [address] [place] [address] Dr. Nam Keenan PLT 335 103/ul Normal 150-450 [facility] Comment on above: Performed By: #### L AMY #### [facility] [address] [place] [address] Dr. Nam Keenan RBC 4.46 106/ul Normal 4.20-5.40 [facility] Comment on above: Performed By: #### L AMYH #### [facility] [address] [place] [address] Dr. Nam Keenan WBC 8.5 103/ul Normal 4.0-11.0 [facility] Comment on above: Performed By: #### L AMY #### [facility] [address] [place] [address] Dr. Nam Keenan FREE T4on 08-22-2022 Free T4 [Mass/Vol] 1.14 ng/dL Normal 0.76-1.46 [facility] Comment on above: Performed By: #### L AMY #### [facility] [address] [place] [address] Dr. Nam Keenan GLYCOHEMOGLOBIN A1Con 2022 ADA RECOMMENDATION SEE BELOW Normal [facility] Comment on above: Result Comment: ADA RECOMMENDED LIMIT 4.0 - 6.0 ADA THERAPEUTIC TARGET < 7.0 ACTION SUGGESTED > 7.0 Performed By: #### A 1C #### [facility] [address] [place] [address] Dr. Nam Keenan Glucose [Mass/Vol] 97 mg/dL Normal [facility] Comment on above: Performed By: #### A 1C #### [facility] [address] [place] [address] Dr. Nam Keenan HbA1c (Bld) [Mass fraction] 5.0 % Normal 4.5-6.2 [facility] Comment on above: Performed By: #### A 1C #### [facility] [address] [address] [address] Nam Keenan PREG QUANT HCGon 08-22-2022 HCG QUANT <1 Normal [facility] Comment on above: Performed By: #### P REGQNT, TSH #### [facility] [address] [place] [address] Dr. Nam Keenan HCG RANGE SEE BELOW Normal [facility] Comment on above: Result Comment: 5-50 0.2-1 WEEK 50-500 1-2 WEEKS 100-5,000 2-3 WEEKS 500-10,000 3-4 WEEKS 1,000-50,000 4-5 WEEKS 10,000-100,000 5-6 WEEKS 15,000-200,000 6-8 WEEKS 10,000-100,000 2-3 MONTHS Performed By: #### P REGQNT, TSH #### [facility] [address] [place] [address] Dr. Nam Keenan TSHon 08-22-2022 TSH 2.026 uIU/mL Normal 0.358-3.740 [facility] Comment on above: Performed By: #### P REGQNT, TSH #### [facility] [address] [place] [address] Dr. Nam Keenan PREG QUANT HCGon 05-27-2022 HCG QUANT 3 mIU/mL Normal [facility] Comment on above: Performed By: #### P REGQNT #### [facility] [address] [place] [address] Dr. Nam Keenan HCG RANGE SEE BELOW Normal [facility] Comment on above: Result Comment: 5-50 0.2-1 WEEK 50-500 1-2 WEEKS 100-5,000 2-3 WEEKS 500-10,000 3-4 WEEKS 1,000-50,000 4-5 WEEKS 10,000-100,000 5-6 WEEKS 15,000-200,000 6-8 WEEKS 10,000-100,000 2-3 MONTHS Performed By: #### P REGQNT #### [facility] [address] [place] [address] Dr. Nam Keenan CBC AUTO DIFFon 05-22-2022 BASO # 0.1 103/ul Normal 0.0-0.1 [facility] Comment on above: Performed By: #### L BCL #### [facility] [address] [place] [address] Dr. Nam Keenan Basophils/100 WBC (Bld) 0.7 % Normal 0.2-2.0 [facility] Comment on above: Performed By: #### L BCLH #### [facility] [address] [place] [address] Dr. Nam Keenan EO # 0.2 103/ul Normal 0.0-0.7 [facility] Comment on above: Performed By: #### L BCLH #### [facility] [address] [place] [address] Dr. Nam Keenan Eosinophils/100 WBC (Bld) 1.6 % Normal 0.9-7.0 [facility] Comment on above: Performed By: #### L BCLH #### [facility] [address] [place] [address] Dr. Nam Keenan Erythrocyte distribution width (RBC) [Ratio] 13.9 % Normal 11.0-15.0 [facility] Comment on above: Performed By: #### L BCL #### [facility] [address] [place] [address] Dr. Nam Keenan Hematocrit (Bld) [Volume fraction] 36.2 % Normal 36.0-48.0 [facility] Comment on above: Performed By: #### L BCLH #### [facility] [address] [place] [address] Dr. Nam Keenan Hemoglobin (Bld) [Mass/Vol] 12.1 g/dL Normal 12.0-16.0 [facility] Comment on above: Performed By: #### L BCLH #### [facility] [address] [place] [address] Dr. Nam Keenan IG # 0.03 10e3/ul Normal 0.00-0.03 [facility] Comment on above: Performed By: #### L BCLH #### [facility] [address] [place] [address] Dr. Nam Keenan IG % 0.3 % Normal 0.0-0.5 [facility] Comment on above: Performed By: #### L BCLH #### [facility] [address] [place] [address] Dr. Nam Keenan LYMPH # 3.9 103/ul Critically high 1.2-3.8 [facility] Comment on above: Performed By: #### L BCLH #### [facility] [address] [place] [address] Dr. Nam Keenan Lymphocytes/100 WBC (Bld) 38.0 % Normal 20.5-60.0 [facility] Comment on above: Performed By: #### L BCLH #### [facility] [address] [place] [address] Dr. Nam Keenan MANUAL DIFF REQ NO Normal [facility] Comment on above: Performed By: #### L BCLH #### [facility] [address] [place] [address] Dr. Nam Keenan MCH (RBC) [Entitic mass] 28.0 pg Normal 26.7-34.0 [facility] Comment on above: Performed By: #### L BCLH #### [facility] [address] [place] [address] Dr. Nam Keenan MCHC (RBC) [Mass/Vol] 33.4 g/dL Normal 29.9-35.2 [facility] Comment on above: Performed By: #### L BCLH #### [facility] [address] [place] [address] Dr. Nam Keenan MCV (RBC) [Entitic vol] 83.8 fL Normal 81.0-99.0 [facility] Comment on above: Performed By: #### L BCLH #### [facility] [address] [place] [address] Dr. Nam Keenan MONO # 0.8 103/ul Normal 0.3-0.8 [facility] Comment on above: Performed By: #### L BCLH #### [facility] [address] [place] [address] Dr. Nam Keenan Monocytes/100 WBC (Bld) 7.6 % Normal 1.7-12.0 [facility] Comment on above: Performed By: #### L BCLH #### [facility] [address] [place] [address] Dr. Nam Keenan NEUT # 5.4 103/ul Normal 1.4-6.5 [facility] Comment on above: Performed By: #### L BCLH #### [facility] [address] [place] [address] Dr. Nam Keenan Neutrophils/100 WBC (Bld) 51.8 % Normal 43.0-75.0 [facility] Comment on above: Performed By: #### L BCL #### [facility] [address] [place] [address] Dr. Nam Keenan Platelet mean volume (Bld) [Entitic vol] 9.1 fL Critically low 9.5-13.5 [facility] Comment on above: Performed By: #### L BCL #### [facility] [address] [place] [address] Dr. Nam Keenan PLT 342 103/ul Normal 150-450 [facility] Comment on above: Performed By: #### L BCL #### [facility] [address] [place] [address] Dr. Nam Keenan RBC 4.32 106/ul Normal 4.20-5.40 [facility] Comment on above: Performed By: #### L BCLH #### [facility] [address] [place] [address] Dr. Nam Keenan WBC 10.3 103/ul Normal 4.0-11.0 [facility] Comment on above: Performed By: #### L BCLH #### [facility] [address] [place] [address] Dr. Nam Keenan PROF CHEM 8 (BAS METB)on Anion gap [Moles/Vol] 12.1 mmol/L Normal [facility] Comment on above: Performed By: #### B MP #### [facility] [address] [place] [address] Dr. Nam Keenan Calcium [Mass/Vol] 8.9 mg/dL Normal 8.5-10.1 [facility] Comment on above: Performed By: #### B MP #### [facility] [address] [address] [address] Nam Keenan Chloride [Moles/Vol] 105 mmol/L Normal 98-107 [facility] Comment on above: Performed By: #### B MP #### [facility] [address] [address] [address] Nam Keenan CO2 [Moles/Vol] 27.4 mmol/L Normal 21.0-32.[address] [facility] Comment on above: Performed By: #### B MP #### [facility] [address] [place] [address] Dr. Nam Keenan Creatinine [Mass/Vol] 0.66 mg/dL Normal 0.55-1.02 [facility] Comment on above: Performed By: #### B MP #### [facility] [address] [address] [address] Nam Keenan EGFR-AF GERMAN >60 Normal >=[address] [facility] Comment on above: Performed By: #### B MP #### [facility] [address] [place] [address] Dr. Nam Keenan EGFR-NON AF GERMAN >60 Normal >=60 [facility] Comment on above: Performed By: #### B MP #### [facility] [address] [address] [address] Nam Keenan Glucose [Mass/Vol] 105 mg/dL Normal 74-106 [facility] Comment on above: Performed By: #### B MP #### [facility] [address] [address] [address] Nam Keenan Potassium [Moles/Vol] 3.5 mmol/L Normal 3.5-5.1 [facility] Comment on above: Performed By: #### B MP #### [facility] [address] [place] [address] Dr. Nam Keenan Sodium [Moles/Vol] 141 mmol/L Normal 136-145 [facility] Comment on above: Performed By: #### B MP #### [facility] [address] [place], [place] [address] Dr. Nam Keenan Urea nitrogen [Mass/Vol] 7.0 mg/dL Normal 7.0-18.0 [facility] Comment on above: Performed By: #### B MP #### [facility] [address] [place], [place] [address] Dr. Nam Keenan Urea nitrogen/Creatinine [Mass ratio] 10.6 mg/mg Normal [facility] Comment on above: Performed By: #### B MP #### [facility] [address] [place], [place] [address] Dr. Nam Keenan PREG QUANT HCGon 05-17-2022 HCG QUANT 532 mIU/mL Normal [facility] Comment on above: Performed By: #### L BCLH #### [facility] [id number] Nam Keenan HCG RANGE SEE BELOW Normal [facility] Comment on above: Result Comment: 5-50 0.2-1 WEEK 50-500 1-2 WEEKS 100-5,000 2-3 WEEKS 500-10,000 3-4 WEEKS 1,000-50,000 4-5 WEEKS 10,000-100,000 5-6 WEEKS 15,000-200,000 6-8 WEEKS 10,000-100,000 2-3 MONTHS Performed By: #### L BCL #### [facility] [id number] Nam Keenan US PREG TVon 05-13-2022 [...] ROOSEVELT LOPEZ Date: 2022-05-13 13:02 Normal [facility] PREG QUANT HCGon 04-28-2022 HCG QUANT 139 mIU/mL Normal [facility] Comment on above: Performed By: #### L AYM #### [facility] [address] [place] [address] Dr. Nam Keenan HCG RANGE SEE BELOW Normal [facility] Comment on above: Result Comment: 5-50 0.2-1 WEEK 50-500 1-2 WEEKS 100-5,000 2-3 WEEKS 500-10,000 3-4 WEEKS 1,000-50,000 4-5 WEEKS 10,000-100,000 5-6 WEEKS 15,000-200,000 6-8 WEEKS 10,000-100,000 2-3 MONTHS Performed By: #### L AMY #### [facility] [address] [place] [address] Dr. Nam Keenan PREG QUANT HCGon 04-26-2022 HCG QUANT 50 mIU/mL Normal [facility] Comment on above: Performed By: #### P REGQNT #### [facility] [address] [place] [address] Dr. Nam Keenan HCG RANGE SEE BELOW Normal [facility] Comment on above: Result Comment: 5-50 0.2-1 WEEK 50-500 1-2 WEEKS 100-5,000 2-3 WEEKS 500-10,000 3-4 WEEKS 1,000-50,000 4-5 WEEKS 10,000-100,000 5-6 WEEKS 15,000-200,000 6-8 WEEKS 10,000-100,000 2-3 MONTHS Performed By: #### P REGQNT #### [facility] [address] [place] [address] Dr. Nam Keenan PROGESTERONEon 04-19-2022 Progesterone 12.6 ng/mL Normal [facility] Comment on above: Result Comment: Foll icular phase 0.1 - 0.9 Luteal phase 1.8 - 23.9 Ovulation phase 0.1 - 12.0 First trimester 11.0 - 44.3 Second trimester 25.4 - 83.3 Third trimester 58.7 - 214.0 Postmenopausal 0.0 - 0.1 Performed By: #### P SABINEES #### [facility] [address] [place] [address] Dr. aNm Keenan PROGESTERONEon 04-16-2022 Progesterone 9.5 ng/mL Normal [facility] Comment on above: Result Comment: Foll icular phase 0.1 - 0.9 Luteal phase 1.8 - 23.9 Ovulation phase 0.1 - 12.0 First trimester 11.0 - 44.3 Second trimester 25.4 - 83.3 Third trimester 58.7 - 214.0 Postmenopausal 0.0 - 0.1 Performed By: #### L AMYH #### [facility] [address] [place] [address] Dr. Nam Keenan PROGESTERONEon 03-15-2022 Progesterone 6.2 ng/mL Normal [facility] Comment on above: Result Comment: Foll icular phase 0.1 - 0.9 Luteal phase 1.8 - 23.9 Ovulation phase 0.1 - 12.0 First trimester 11.0 - 44.3 Second trimester 25.4 - 83.3 Third trimester 58.7 - 214.0 Postmenopausal 0.0 - 0.1 Performed By: #### L ANNE #### [facility] [address] [place] [address] Dr. Nam Keenan PROGESTERONEon 02-15-2022 Progesterone 11.0 ng/mL Normal [facility] Comment on above: Result Comment: Foll icular phase 0.1 - 0.9 Luteal phase 1.8 - 23.9 Ovulation phase 0.1 - 12.0 First trimester 11.0 - 44.3 Second trimester 25.4 - 83.3 Third trimester 58.7 - 214.0 Postmenopausal 0.0 - 0.1 Performed By: #### P KIAN #### [facility] [address] [place] [address] Dr. Nam Keenan Coding Summary.on 03-30-2021 Coding Summary. CD:[id number] G h0bWw+PGhlYWQ+VM5OXRY fH62dxIDfsT1OC2kZQX6S ZADEZKPINZ8QBH9iuVN7F JjdT7ZwwwWm ThmssDSiUI85IPy6HAC4i VgnDEvwfR0jxSFxF2f5Sy EfWM34vN38NZdwOSQmAaJ 3LjZpbjsgbWFy M0mnOwYckQXwKvd+PHRhY mxlIHdpZHRoPScxMDAlJy AveOohEC6qNa6uDPCkKVN vbGxhcHNlOiBj y8zrINOjNIvbHP7slFilF 0QocWL3JVHwg4m0Ba12xT I+NKQfOZJ6mGhmIMibp97 6EeJto9xoFDM2 bQPxCQfaXRR9O69yp5H0C XNaKAXpODF6sTV0jS0naK nyeogfZ3EsqQViWqY3SYH 3xNEknW0ukIfz wayjzM0zLpj+U69KQL0DZ GLPFS2HKbw8U8OgRnugjU I+WL69ZOLbZY62hROywQT tw2alrUd8BpTx BYDfBID0tXlkOMfsu5PqS RTkJ94yjNBfl7I2LRIjrQ rfzDAjIiHlcRA0gC2bTZo bpdsrq9cagncl Qqxwj9eorm27wQ76L40wA KdkYSKkKHA9XGCkJYEhlS gtvn9rmG6wTw8+UChiz3v ci6xvqRx8JfBk HDUgusLlyKguOYC6c6IzY l02H6GqhUepi1NaKwj2ge 74yERol3P2uNP2AVfwVTZ xhQ6pQGuiMpT5 TSUqPyVhdC24hMMuWFmwJ p5rdBeabEztWN9qGNFlei kiQMZoxK3qFJKspRFkeNz oLP5iJLSacqce s695LkDtNSF6LEMccBYaQ 4GsoT3mYsGkAPWsFOClA3 NktASaPCenF755MSgkAnC 4DDJuzuDoQ0Fg DFAjfEkdOfR2d9E8Mf6Sl 7AdwammHYH5CJghVBFmFp OhTwQyPyY5T5VgHdh4BHA vyBhsPZ0zX7Ah PLLjphlrzauxwUP6NGCtS DBbdN59jYKmRGahOm8vi1 K2w065CQAfMHUwfD97Jz4 udDogMTBwdCBU sS3huikdm4dznhirCgUlO DQpXNr2LMy1KZGyxYbsMg UkQQD9RhQ2WQK7oNYqrD9 inWjaecbkdP4z Oyc+A94bmP8qQEW8TMU0m vozSUPkowMzRN40TX87L5 RyPjwvdGFibGU+PGRpdiB ksSemQT4oYhNz u7zdg0NkYAfwT8PzLHOmG HijMrh9WPWvWEI1yXL7mD 0vDHGuNQklx1M7iUG1A4J pjsAgyc3kx0ic SODlPEpbJ86tfYHou0X9H LZjrWV3VQXanSinJeMueZ 93Oyc+TGHcfFasu0LeUif py0azm2rsxZx6 DsCtXMGkqzPscGovRRY5k 7OySa67K46qTRocQHDrCJ KiQNFlCZJurUshtx0yyJ9 wIi8+PGNvbCB3 vZC2xG5vHTJwKeA6JMvfA 736YfRoyPNqEbjyu7mts7 hokKr9YvWmLYSdshTevHk oOCE3o2GpVl10 S49rYQrnQZTwTHJuLIOhK MItbJdztj7ckM9nEk9+PC 7if2mxni92jM85pAD+PHR eSEN5rRzsFPnx GKQzgI3xDZlxQoZ3LKCiH tTzkA38zEUtCPgpWs6ahK crtLspIV3zWHWqufcgw62 8BsRul2pyBXYp bQPkLIwvCPR5N00ul3L5Q RPcULRqWBI0dAH8wR5qaM lnbjogbGVmdDsgdmVydGl eQGdaEEmnH456 IHRvcDsnPlBhdGllbnQgT nPvGUs2D5AyWeo8USCytR yfNU3riOEoSDxuRw7cnZp pkGhrQQ9qCWTx hghft424RnNqq7mmZQUwv BVkDIfhZFI8O38ps5O7SG IoMAVnEYD3bVV0nW9nkRy nbjogbGVmdDsg nbGtpJcqJCgxSJiiB654W HRvcDsnPkJpcnRoIERhdG C8EX55PD11jOTda1Z3fHD 7S7LsQXTctdsz mibxfCK4COQlMNSalR92U a6pzQyzAo1vVFAwTGC6VW QjlJUeZ7KsrA9zTaXoVDJ vGRPeQ3LopVHu FLqbP697DErjRcK7AHMmz wRvR8PqKWVurVhePyA4m9 V1Zt9XB5Z2MR73KU54vPC ax3O2hYT7B3Gb AGSvrliawudkoLQ0KEIpR JFaaJ26Kf9hiWdyUe1yEV SvFJP1ADAsoAZeD3KnnP3 yOiAjMDAwMDAw E6GobNZdXKvaM216ZBgnL yC4LKBrzoSwF0UuAARizZ dcGqK8f3L1Yw9HEJt1YC9 2QN13kMKwr6J3 oJZ4K2MzXZFbwvsghjewa LZ1WXQqZCGjgE49Ru9kwQ itVe0iYZTdRMN9INNuhXH xE4OlzM5cEeJt YKRbQKGpP4CgxGPkWOenI 249CUcoIjT9NTGubzHwM2 LhHJXdaImhPiY0j1I5Tt0 WOJUdIN33IUL6 xMG5WF61LW79N3WdJldbp GFibGU+PHRhYmxlIHdpZH RoPScxMDAlJyBzdHlsZT0 zKw5kFJKdSXDt wBvucIOjHvAaf1ztVKLbF XkdND3ydXjiI6HgzZZ0QA Pfe4i2Vk83B75yM9MdmKW +BFWdmQI0mEW9 tO9cIgTcCzH4SWghE298W rWxqIMiOzjyp8uob3hxyV b9VfC8ANNehkZlcAufUJF 7v5IbDz95X93u IHdpZHRoPSIxNSUiIHZhb Vdpjm6iaX8oQb0+PGNvbC O5gIN1dA6lSpKzGpT4YCd sD140VgHxbKKr Rmrgr4rqh3jybFm8KlBlS ERlitExjEclHBB7k8MiNf 07U8AvhFhyi7XaIkg5pl8 4hZVjk8B8kHJ6 I0FiFPBotaetwTAmcZitB Y0pDNGjvsnbQCOozX9qAL YxW1s4AoNwWjT4GElkH2X wrrX2FXTlxULx UPctRSO4L35me7V8OGKpF RSgGTL6tKN4zZ3mjUgsyf ogbGVmdDsgdmVydGljYWw wSJzmJ977AQIp lJtsRPTenU2xZXAttNAgp IaeBF4zJZEafibeLj5NRX cRMhgkVaDNZ9oPZIMKQD2 9FV05vADge6P1 eQA2M3OjZYHiqthsozujv XQ6FQRdRKNnwS01qNTrXY rlNy0nv7C5z898XETyBZD dlS83Fq2hpNil REDmxFAThT1skuojz6qon zncKmKwEZIiJKw1IKy9UA VreYluShNbOHA4CkK8NKE 9dOJymD0nuCdf qttjjV9kXoy+MDgvMjEvM Ew4OZhenQX+BUNuJGV7kJ gbUVfdMIJtdZ6mXCHuN1p 8EsBjXxS6HVbf Z8YmOBCjvpofVf51vZ5vT aDlMlS0JWhfA1MrzgY2WD DpzBRmLXixQYB6B92xp1H 7IFFzFETzQYC4 pIL9aR3akDteoahboXJxo DsgdmVydGljYWwtYWxpZ2 46IHRvcDsnPjMyIFllYXJ aPB18WI35zFHz t7S4jEZ9Y3IaWWAcgruqn batqRJ5HPRoOLGefS38yR EpFPyhPb7eo2A9b102ORQ nTAZyqX83Jv2q lXicGROhnVIYeV6qnxuai 9qncgyqFzYcVGZcUCv3JQ e3OVIuoYbqSzAxNTD3IrY 5FSL9fCJudL9j hIdalwlbhT6pOfu+RmVtY VaaEY21YI76lNZpp2N6jW E4C0FcDBBqpbzpnovutMW 0HDCfCJZnoO18 yRVqMXvtKk2su6C1u617I UQgXAImmU67Pe8voVbfWR QksAIGyW6krmhgj0kzqys gIzAwMDAwMDt0 TCg4VZApxSixKbLaLXH3R pC6CES8gOBmvG5jmWqilx jzzD6rDuz+Q7E3tIH2kYJ udDwvdGQ+PC90 ua26H5WwQqlvWfj8HYGwC KD8lPG2vZ0xVIWlDChzo1 T0fOG6X1OqizFgpr8rw5g bLINzPFonM28o fOFlx4U6RIBrjNC6JWWsa JmwByKqhY50Vxo+PGNvbG zji2WfAlxtj7wmv4gxjBo 9IjMwJSIgdmFs cJugNFR4u9DrPs86C72gJ HdpZHRoPSIzMCUiIHZhbG ozcs8ntE9gQl3+PGNvbCB 1uFS3fC3wWvEn IyE2OTbxT507EeSskTRlG tjfy8vfk1hbcPq0FsPeXH TqdgQjlTwwUQX2x8VlWy3 7X7JviSchk8Uf Gku8qq33wBGhb1Q0cUR0B 3BhZGRpbmctbGVmdDogMC 7qIPOzjlclAZUlzB4mPYG zU9u4RyDaGsB7 GUmfW7MvpwK4GAGcaCImZ NJaeFNVeD9psqdzp8eyhs ujSjJtWOUvLBq7XMx9ODX saWduOiBsZWZ0 TuL7NJL9pREhaA0saOkrg nourL0uXxc+UYq1f1gnqM PuUL1gqSR6UK95MP71oUW um9Z8iLX6B2Iw JKZutangbbyiqFD8ASYhH XRofE71Hx8mkSovTy0aGL XpBHI1SJZbvWVuF5UgsQ7 yOiAjMDAwMDAw H2SbnWHkIPveT025SQlxB fQ8XDTurzXjN6VnBUXmfY yyGjG0g4T0Up7VWV20VX4 8YV88xJDvs6S9 vEU7P3NrNAVieobjuxwna JN7RLAeNPNihD50De5ovS bkSw8kEZVzMLD4DWVqnCU qS3PnvG3dHiWw FGDfDJSqM9RowXQmBVlaI 195ZMwdKjT1JJZejzEsY8 CqHHEbeCczIjH3m1E1Gh8 SOb26ZH61TG31 gHNre9L0bMC8W8IeGRTrj xxwcenfbHW3MAAhZUVkwR 49Xr0cwLmxTj1rJHBpZXK 8DSNtwUJdF3Fv gD5zGyNkERLmZDIrN4Czr KRcSSyeP431FPxiUrS2UV RoypBhK1KmANYroBoxIgG 0z5N4Cy2YNHxa vcf3D9WsVtefbHP+PC90Y KXhPO50aFRmhOCcd7lacJ n2IbLpPPCdRYI6uZcfZHa qi3WyPELuY05m bGFw (more content not included)... [facility] Coding Summary.on 03-18-2021 Coding Summary. [id number] G h0bWw+PGhlYWQ+WL1TXBD pG00lhXCakN5RR4oNZH8H DEJCINBGML1KLV4vtDI1O CccD3YuewLk EngopDQsDR81SUz1FGT8x HulYPqlhV6pcRJbB7s2Un TpAA87iG68MFdpYREeVjM 3LjZpbjsgbWFy N0rzVyFogFTmZcn+PHRhY mxlIHdpZHRoPScxMDAlJy RkcItmWC0wNb3pSZOvQVO vbGxhcHNlOiBj d1paROHeTZczNK8wqHamI 7BfnJC9XMOpd6k4Ix47zN I+BWRnZRY3zYboBKwgc47 7HtCnj7pnNMK5 cJOjZSceLIH7F67wy4B4Q GIcXKYeSHB8yJD2jC2bmJ zhtqtyQ7UemFXeAeZ3QCP 3fRNhbP5ahDhe ghfycX2xDri+Z50ZWI9OY EVNUW2NOth3D7BqOfpipA I+DR14YMYiNZ12pJLvoVW tu0qivSf7LgUo HQUyYYH9bLzpZYkqy7DoC VUpD03nqIZzt6T1VPOluY vetPZlIhKqbZU7rN3kTXu sfsuqc5dloysm Lwwka1piqv53oW80A68tZ GkhPYVrBZB9DOBcMKLhrN wtuq9cwX8wVq1+XGjvp8l gt0nhmUn7WkOe UPRxsqCunYthNLF7z8WdV i94G2YxjEemg7UqMuo4ts 40dRNkh3X1gWP4GQskSJB maV1zVIiyPeK0 BUCsKgJjhA96uMHaVQldG s6xyCcduVbzVF2mAZOwlh hpXVMmwN9yGEHhwDRstQl gWX7cTVApwxiw n919WwJqIMZ6SDKoiDLzL 5NtuU1gRyFoGTKzEEKqT2 BjwWHlEOdkR157AFilZbH 9INOnsbIlZ6Rz TGBuuZeiHpY8s5D3Hh4Ad 5YdkmhjOPK8QYawZSUrKc E5HzGyVkE3W7MdFyo2NVG lnNujSX9qR6Ix ZTWrutrzzgjrwLO4IPHhE NUrhH07nNVbTExlQp1ef3 M0q649IDGaCSNpdE01Pz2 udDogMTBwdCBU xY9iwdygx9sksrrsFjQdI ZFtSRg0QCd6VALjjRgfAk AvRAD0FiP8XQM8pDAdhO8 oiRwaiijikG7x Oyc+P03vfN5lYLH6KXP7m nmiSWZkvePdSF88VE04S7 RyPjwvdGFibGU+PGRpdiB zvRfhZB6cQhHt r4yzf2ZtKYulQ0QmMEAqO MotIrw0DEVgWFM3pTY8hF 7mLILlVOlnj9Y8vFP3A2C gwoIccf3fc5nw UJUwWPvkJ82oyJDxh2K7H KJhmEU7ZHNkrQssXqZfuU 93Oyc+OXUbtLtgo5RlLgq pc0vhm1yifGv3 HcReEIVvppLkqJttCSB9n 7EpGy17V46uLPdaESRcCL ZfMQZcFMJarLabix0cbM5 wIi8+PGNvbCB3 uIM0uY6eYUCpIkZ8AIghT 198DgXjxYIlBrfhb7cbh2 xljTw2WfNlHKCkwkIpiDv lHZO1t7YqHc47 X37jFLvhYQAmTBZuGWWdN UXjfJisgz4duM9hAr3+PC 3ht8vyfs07eI12mWV+PHR oCQT3qNotPFgo BOBhjZ4xJPrqWrC8PSHvM jOppT02kAGzBWucRl2kyK wdiYslGO4zEHCgoahpi77 0IzSgp8boMPKt uMShTZioYWK2W27hn6Z9F CGdBHEmSNS2nJL3tQ8lbH lnbjogbGVmdDsgdmVydGl fCAeyHVrfI415 IHRvcDsnPlBhdGllbnQgT xGnTOg0B9TpExj5TATefN lmKU0mcUXfXPiwRd5awRy qgGniAU1cYHBr auppb130TqFon7fkSCGxf KSwTKikLUV2P65ln6P4IU XlFPJtWXD9tVO6qM2koOo nbjogbGVmdDsg ctYigClzHAiyPRbhB714M HRvcDsnPkJpcnRoIERhdG N2CE48CI72mRNdt3Z2yCK 2C3LlYKTvyflf vkpwpCA2PROyESDviM27P g7jtMcfHq3bZCRrSIP8CF ByjJIkE6BlvF3dGaJkDCZ qXGYpO3QaoOUh MAwfA145UCaxYlJ4HVCyy eAiN0FfQCHwuSjeDwF8i4 B0Oe6BN5H3YT45QK48gJB yi7L2vXO6B7Jd JNHhwfojxpwfqNQ6TBAgT NAujS07Ra2euMfqJq0jFG SwSHJ1IBHawUXkL5CzhI9 yOiAjMDAwMDAw J4QucIGtRTvtW220TVrkL vF5CSZnecEeO3WqVPNztN ggYlU3s1G1Rk8WWXg9QZ7 9WU00dLHqb9B1 mHM1L0ZrJJEjztegavboa SN9TOMnNZPjaC93Za8fdH csOx9bOSDbGCA9TKLpoJK rD9TxqY4oZzUl RXWwGZMeS9HwvVOoMWuoQ 251GPefMbY5MLJdcoBvD1 VbKSTbnAtoJoE8i0S2Od9 YUGZySW25MUB7 yQX8RP36PT17Q7PnGhvxm GFibGU+PHRhYmxlIHdpZH RoPScxMDAlJyBzdHlsZT0 cJq8qMQZjXRDv fFhdcIOwMqHxr4hwEUHvF NtvPW1xxRceW6OudJE1ME Vqb5c4Za08H46rI8IfnVY +NMNydEG0vFV8 pH7hXmJcCuQ7MGtjA948U vVqhTGuZfjox9blv6vtcX x4VvJ7KLNmzmQjaMulSHH 5t5KhDl37W34g IHdpZHRoPSIxNSUiIHZhb Lzgqa2xeI3qKn0+PGNvbC P3pFN7lH0fOiJwKnB8AQh uL973AxXuiHUj Qddyx8kih1aycGa3OvQfK WCiliQrgWmgIBM9u0PbVq 09S3VwuMlgb6AePjn2wk0 3aGSoc5B2aBR2 I5FqMWHzgvphqCOsgAwzV W1xRFEqdtzvSKJyjH9uVT MgV0x1HtRgOeC4XDdcV2W otqZ7TLYmuZQj EEqvYRX9X72dq0X4DLOeD CAmMXF9iJW7bA0jySkagt ogbGVmdDsgdmVydGljYWw hGVycT048CRIq nUuiAIWpmY6nKZBjmMElc LabGE1rXANdtwyrQr7MCV kHTblqQqDII7gXTIXBVB9 8YC47lICgq4B2 yAU4H6TmRPNjiaaakumnk BH1TWYbWRMaeP52sAEjVC eiCw3xw9U8x561BYYmAMN uoF04Uv6cyHnj EFAbuZCBuN7yfptxp9itg ghlPnSkCPTtTGv6FOj4RS ZufIflCmHdRLX0FeS3EDR 4oKKgfL3njXzl xnpjiR5yLgs+MDgvMjEvM Ir0KRhqeXA+YDPzLCM0oY gvIDpgLJXkfV9yPTPpB9k 2WlYeNeQ5AGpr O0PuNQRyoffsUn99wJ1oB fNcBzM0MSuyC6GjbsO6CV BnlXKfTUywEOL3R89ga1R 4DRLdBGOwQZE9 vSC4fH6gyHaxfkfnoUOsj DsgdmVydGljYWwtYWxpZ2 46IHRvcDsnPjMyIFllYXJ pSG70YR52uIEl h4I9sBT2P8UoPEHxlzlsu ovtuIR8UWVrRTQrbX84qL JeXEffAf8nb6O9f912KXA nPGLkwY89Tl5j qXouZYFmkILHoW2yihznz 3iiewzdGvJvLKWpNKk9EU v2CZOqgVteGhGzZZY4AjE 2CQD2pGQhhN8w xYwvivkauN5tCnc+RmVtY BenWC72GR37iHZoy7X1zC Q8X8HzXMLhbgjajjfrbWM 8BMEeVZItdC46 jTVuPBybGv8nh6N5y656F ZSoJAJpcW56Dm6gdSxiOH MsqNMLoY7rlesud0udigq gIzAwMDAwMDt0 VRp4QMKxkPvrRkWyFSQ5E sX6PHD2pKImfS9jqYrobb kbvN0qVau+CU8yuvillwK 9YB28WP85C2Fn PjwvdGFibGU+PHRhYmxlI HdpZHRoPScxMDAlJyBzdH srLU4zZc1tASClRYYfuZd cbMGzEeTqw2yp RBQpTPrdKD7lnIijG4Itm FV2TLEve3u5Rp21N79mW0 JvdXA+FTMqqWM1wZB8vL0 yEjFhMyE9SGxd W713AwBbhCOaOyuzq9xhd 5znwUk8ZoBzLBJjheBsuY nlCMP2z0JgOd17W86pIDp pZHRoPSIyMCUi YGCzzJkcri8luA8oUq2+P XOueSF3nLU0yO0jPeNiYe J0ECvoW504ZcRodKPqVtq sG87yA8FfnHT+ PUReHqt0ARYrzPqqKR8id TXaKSmaVo6iDEO9RiUoCo JlKSwbW4YqZXGhlkkvwvc jjWP7SRKuAIRh lG41Dt1urOzuSr1pXEUcG IF8DDQusNNxD2UyqY2yVn IeQAXrHCVhR8HtkGJiUCl dL793BFsqBdX2 NPWllfWoW9UmIJVimPqmX wQ1m6X6Lt9JhVrbrHLqTA 9hBzAjOKh2Y6JoRxl6SKZ xfRvrOV5qaNQe MByjTa9fzDrnvYdjXX5cM WLdjumha433ZyTkw7pjWV JqjCWyAVnePLV2P05di4Q 8ZXDeZEZgQXV7 iZQ8qR8taFfoezijsMBte DsgdmVydGljYWwtYWxpZ2 58DXHsbYkzDgVPCqa0D8O cIzc7PGLkgEfd NF1owRRjGKdtCj3twGhsd OjlFM5bQITepgfhu542Fr Ham4vjTJHoeASnFGogWBQ 5U54xb0V9RRJy DSInXST6uPO4gJ0orNyzb jogbGVmdDsgdmVydGljYW nuXMzeO035XOVdsCflGe0 XOpd5T2YhKfw1 ACVjaNcgPP7icUDyPNaoR w0phNrobGpbHT1tZHCqgm qap001TeEaw4prUECbkZG tHHsfTLO7L85x y2O1ZNDvBOMoYQY0cUD0b O9pvWuckgpyiPAnbIkqcw HqaVtbCObrXUddW174FKM vcDsnPlBheWVy OjwvdGQ+VT17ql57I9LcC lgbTqs6PPOrKSJ7uAB2mJ 1jJKRzWOshc1B9xBU0U6Z wefZhft2yw3dz YXBz (more content not included)... [facility] Coding Summary. CD:[id number] G h0bWw+PGhlYWQ+JI2JIDG fX12nzGYquT7IZ3rKSW9V AFJBZNPMIC3GBA2opGQ2I PicY3AzsbIa DogmrKMbZA20OHo3BDS6k VaoOMoxvA4quTOrN2p8Fl WzJO58dS63CQjaBFZvJuR 3LjZpbjsgbWFy X9loKtOwzMNnQtf+PHRhY mxlIHdpZHRoPScxMDAlJy KstKniUO1sMk1cENYuJHK vbGxhcHNlOiBj w2kvXZZmCNpnXR0cqLzjJ 1ObiEW2AFLdu9q8Ea53vT I+JLCcNQZ6jJamHFleu61 2VpFgt2jvBKK1 wIDwEJfwPYF7I67zs4N5L SUdXRZxTRX8xYA8pW8pzD dgusfyH3WjuWFkDeX8QAX 4eGPdzR1wgRtx udvhlP1tYht+K49OBC4AE NIFDR2SJlp8T3OcRcqtjC I+SH74MVAzVU03pUDkgJY wu7dyiIe4HgTs JZOfUFI5xNmiZGqir4YaR VBlT41idWJqf0R7QHSwoS pbaQVxUkNdvMY2oP4wVBj etrewb1oortks Htbmf3vgpv73lD64G25wH EptPRYaNEV8OQCiOSDuyR blor2czL4pXg9+HJqle7m wn0pntRw4NzCj YRHxgeLjmAmcGRL4o4PvX q29D4NuzIfyp5RgHex1ny 94nDMmv6H4aUW1MDegATA okE3kFBboYdR8 GNVzKtAoeW91wUGgPWnhC p7spPlhkXbxUK1iRVNgtq cyJCDyhR4oZQEwuTOfqCb lUT6wXEBhkrwq p981TiXzFNJ5VVZiuHZnW 3JboO3wAnQiRMZhOCBxQ9 FmnNJnCEuzI089RLqbSiU 8GPLxxpWrP4Cd MNLhrTpcMpJ0t6N8Ws9Rj 2GfuwemVRR8GSqoSYMuFq J7MjTtYwO1F8LvQhi3VNJ usErcWR2aJ1Zt PGInrozikeruxEG0IBMoD EOokV93kAFiQUdvFy2gv7 H5o803ODEfICIkeA70Ja9 udDogMTBwdCBU jX6zrfjtj0sikuamDyYsO LFlXVr0THp8ADOrvLseTm NoCHW4QiW9ONI4pQJqwG5 xyQfvmmtdzE1j Oyc+S02ysX9uOLX3IFT6j voxBECbayBzFL43BN37B4 RyPjwvdGFibGU+PGRpdiB xqYazGZ4wWtCa b8hcp0MmXWtuE1YkUSNgZ WusDrv0MJSjDXS8nEK0cW 2vLAGvFTrnr4P6mZM9H2E lgmJyyi4ox5pv JAOcSKywD31scFVtc8L2F EIsvKR1ECAnfOaiLqUvsZ 93Oyc+EVHuqTntd3PkTut dq0axy1yvxBt7 PoJmHKAhgaDjdCoiGRB8n 2GvHo31X43wMHgcFTUwHQ BvVGMgCVMrgGwkbj5qkE0 wIi8+PGNvbCB3 nHV6zW3zUWNjFxT2AOwfG 143IlGoaXYgPtjtx6abg7 zalLz5SiWcKFLyyrVfbRj mNEG8h5OhJq77 R44pPLldFCNsNMJoYPUhN SPqwVahiu4aqT9xAk6+PC 1vp1ydrz53yO51jGG+PHR xIVX5mHhwHPxl VDPqeO0jTNqhElN3ZHIeN jOqeS58hPCnKHcxHq5nbB jkmBbcVG2qEWUznttgk28 5OjVlg0anIDHj oGJmEGozIVH5K43db4Z1E ABlSOFdESD4fQW1fT9orV lnbjogbGVmdDsgdmVydGl uRFpeUCugX917 IHRvcDsnPlBhdGllbnQgT fBaMVq0A1PqNce1FSAclL hcFQ1otLDaHIymFp1kwUx mdAviPS7sAOBi nedfr182SmJyd2wpUDIhg WTzWVbiWCZ1B94fk9F7WS HjPGXgQDT7vPL8eJ7rkKx nbjogbGVmdDsg nvCnlTiuLOucLMjbV751Y HRvcDsnPkJpcnRoIERhdG W8PB50TV96kTNaa2V8wSR 1R5IyZIRvaldv dlelvUP8QBVlAHUzrR79F s6tjAifRx3aAAYqFWM2OA DnlKVrP9ClzH5dIcJkJKZ aGCVoL5VzmQOo SBacY299ZVwuQdN9WDTdv sBqH4IuAUBlfOfpSlY1b6 O2Ue2KA4Q1SV45WT12bDU se2J6oZD9I6Jm FCIutekweciuoNZ1QTAtT WUmaQ58Mb2ioAujPt3uTO FkYZS9RSNypGJlY9YunQ4 yOiAjMDAwMDAw L9SurSFlNTjgN529LWriC sI0TOMnffXtA1FkRZZmdM ykQeS4l0C5Dp2IXTo0EF0 5XI55vNEnu5R3 nAD4Q1UeUZGmqxrerllod BE3YSSyOCQceJ67Ed9wlO alOl7xFUDnUET3QRGfdAD gX3XgbT6hVtTj JKMzUJSbE2CvfFYlXSggM 044VIbbQbJ6ZMGwhjSaP0 BjBJGxgXefMsX0b2V9Rv3 XWPVfVE54SDX2 yYX1ZO59AI69K9YkWjgdn GFibGU+PHRhYmxlIHdpZH RoPScxMDAlJyBzdHlsZT0 jSg0gZMRvULMm nAcjcLXoCdYqq0ojASJbO PabZU7rxGrlO4OsjLL3XX Nfu4a3Ho12B13xL1MewKD +YHZaeCZ5oFH5 zY5sRcVpMhG4NSfoJ149K uNwkPFpSbjtl6ylt6dgzP s7MxC1OFTeidCmnPibMUK 1d5GoZt68U14u IHdpZHRoPSIxNSUiIHZhb Mubse8ovD9rGv0+PGNvbC O4uER8hY8iBnYkOkS4FWk nI334PlGdiXRx Bewom1yub1rppWi4LlFgP QEhiqKexOouCFZ2m8LbCl 94J7DvoAqtb8CoDqw5br1 8aPRpf5G7uRR0 I9ZlGBCenqlcmNKnnApoJ B8lJCXvnciyIRLhwS8yAN ToZ3g2AlLnFcP1GXhyN2S phtW8HCLwpPTz EVrzNWD4O45ym9G8ZXCxM IAuSAN2dDW7zP1kwNgfon ogbGVmdDsgdmVydGljYWw nPDjxZ831JNCy oXoqQNJttU8cPNLoxRDyn QahAW2ySQZgrpbbCo5MJT cVNqqjVgGIH4kPLFBQTF1 5XJ90vKOod5P3 aHJ0H0SbEWIwjcpzkhgpd OB3LBDgNWJetG51bXVyTP grBz1fe6C8w648BLTgSHJ tnK43Yl6tjFrr IWAouPBAoS7vfbauw7kfh cesSjCrSTPlOFn6GYw2GO MmnGetTlJjMMH1RgB4EYL 9jJJonV7brNci qmqqwZ3tZpi+MDgvMjEvM Ao9LNbebNF+IUTfKRB9nF tgGVqdHAWajX9gPNToI1v 2YdFmCoK5LEan N1WxHMZgbebhXx00xS9pD tIeMkT1IDtfM5HgwyQ6CZ GkwHEpNRleUYQ1I68de2J 9PFTkIGHyBFD1 kWC3wI7raMxgvcaamLVcp DsgdmVydGljYWwtYWxpZ2 46IHRvcDsnPjMyIFllYXJ nJI26AV84lPBw k6V5vJY3C6HqBPLklegse xyclND9OWJpDMLlpZ29uJ XsOTxbMh0nd5E9z126LJY aWSAwdG58Yl6j iZywMPXunXWLaI9yfhrro 7qvdrmoHaShFLFxVWy2NY x4AUCuzWrbLeCsMCP2TlF 5VZC0wMPepT6r rZjgkeexzG6hZaf+RmVtY VywMV25CX34jIEsa0F4aY X6K5GtNGHwztmabmxlqXU 5MRAyRGOjqV29 pCPbKNkiZs1dw4I1l911E KLbLYIlmB02Jt2fwPxsXK RelQMXkH5yjqvyg3kqdcg gIzAwMDAwMDt0 FOu1MWQsoNryPlEgUMA5A jN6NUD1eEKnxE8kjXxuxu anuB0aHpd+RL7lwpzjotS 2GO63ZA06J2Lw PjwvdGFibGU+PHRhYmxlI HdpZHRoPScxMDAlJyBzdH roBJ8uZp2hMMJgHRUihUq tvHPzQyAei8kx VBMeTEvzLL1geTfhY2Hgf JX6PXDmx6v0Qi24B15mQ6 JvdXA+PFYvyYN6lJE2yW5 jWlCrCeX5EKtx P621TgGdpJBmKfbek7mdf 5ehuDh1SaBfDXCyjiZzuB jjHCQ7h0EdVg01W99kBEg pZHRoPSIyMCUi ANQbhIdjuo9nzL2oFy9+P LWlrLJ2fVQ5mL5aLiZpMu D1ZJxkA396PeAetBZrOfy cF45qJ7NahJZ+ ZJDoZnr6WEClpJubHK1ty UHxUIwuXk3hLTV5QfLsQu DtCJyqR4WeYOJwlbxkmio ttZM6DKIcFIGk wK14Vh1qnVytYi3pFSFfI DL0XRIoqVZdY1FhvY4cUd OmQBQtAZSfL3PkaTVsQKe xC360DCvvCcW9 LHPjbuKaT5PqNAYfiPthU kN5t0J0Oq4SzZzlcSRkPW 7bGyZlEVf8P4DsFfn0SFD uyNbhGL1jyHAq ZZrzVv5jgUdmoNxqMN7iH LYwninqg594PdBja6hrQR ShlHZkMCazLSS1H82mi2C 3EKEsLTYrEAI7 vAW0bW6fwHlbabmdwAErw DsgdmVydGljYWwtYWxpZ2 30INAyrOblSxVCZzd4L4R qYqi6JDCuxVlg CG1rrVDkIHdwWn0iiGarg SreNM4vOCTuwuqel724Lz Exz7rkXWErmOLcQJxkOKJ 0T74zy7J7BOFc TFXzQTL6mZK8fB1toZjtx jogbGVmdDsgdmVydGljYW syIZbdH821HNLheYmpXm1 SUnw7M5QxTvi1 RHRgvNwwZN1osINaDNsbM g2vyManqEjkQA1sZWZomg fng515FdExe4dlCJZplGJ yJXfeMSO8I20y z5D1BWTbUOGhOJL3pAP3y R7ujRuyndmqhYCekIgtrp HfxQxiUFksXTjpX507CPE vcDsnPlBheWVy OjwvdGQ+QJ60nt28D2OvX tzcCft1GILbGBR1eBW2oI 5oPDWpLMihb8P0aBI1P1N jalLcwy5eh9za YXBz (more content not included)... Normal [facility] Auto Diffon 03-12-2021 Basophils/100 WBC (Bld) 0.2 % Normal 0.0-2.0 [facility] Comment on above: Order Comment: Order Added by Discern Expert. Performed By: #### 2 507619, 3098731, 5562290, 1216598, 54832601, 55099596, 89803196 ####[facility] [address] [place] [address] Basophils/Leukocyte s Auto (Bld) [Pure # fraction] 0.0 E9/L Normal 0.0-0.2 [facility] Comment on above: Order Comment: Order Added by Discern Expert. Performed By: #### 2 121693, 5476059, 2313469, 8661398, 19189451, 93078439, 50216482 ####[facility] [address] [place] [address] Eosinophils/100 WBC (Bld) 0.0 % Normal 0.0-8.0 [facility] Comment on above: Order Comment: Order Added by Discern Expert. Performed By: #### 2 153307, 2156664, 6544901, 6563347, 30459943, 34298997, 17010085 ####[facility] [address] [place] [address] Eosinophils/Leukocy jacinta Auto (Bld) [Pure # fraction] 0.0 E9/L Normal 0.0-0.5 [facility] Comment on above: Order Comment: Order Added by Discern Expert. Performed By: #### 2 722740, 3034959, 3338955, 7023583, 77139577, 55172802, 81781525 ####[address] [place] [address] Lymphocytes/100 WBC (Bld) 19.4 % Normal 14.0-50.0 [facility] Comment on above: Order Comment: Order Added by Discern Expert. Performed By: #### 2 733140, 7022224, 0052726, 5512579, 25492008, 35467376, 02668908 ####[address] [address] Lymphocytes/Leukocy jacinta Auto (Bld) [Pure # fraction] 1.0 E9/L Normal 1.0-4.0 [facility] Comment on above: Order Comment: Order Added by Discern Expert. Performed By: #### 2 193578, 9695612, 0832542, 1071079, 84920786, 85376169, 74575495 ####[address] [place] [address] Monocytes/100 WBC (Bld) 6.9 % Normal 4.0-14.0 [facility] Comment on above: Order Comment: Order Added by Discern Expert. Performed By: #### 2 157532, 0950721, 5337666, 6758386, 09979911, 06430151, 34682989 ####[address] [place] [address] Monocytes/Leukocyte s Auto (Bld) [Pure # fraction] 0.3 E9/L Normal 0.2-1.0 [facility] Comment on above: Order Comment: Order Added by Discern Expert. Performed By: #### 2 810753, 9008166, 6337976, 8898334, 34570383, 91209133, 27395815 ####[facility] [address] [place] [address] Neutrophils/100 WBC (Bld) 73.5 % Normal 36.0-75.0 [facility] Comment on above: Order Comment: Order Added by Discern Expert. Performed By: #### 2 553327, 9012148, 1902967, 5901376, 92618784, 85949189, 07047322 ####[facility] [address] [place] [address] Neutrophils/Leukocy jacinta Auto (Bld) [Pure # fraction] 3.6 E9/L Normal 2.0-7.5 [facility] Comment on above: Order Comment: Order Added by Discern Expert. Performed By: #### 2 541091, 4459642, 7779983, 3511804, 96777352, 04289777, 26498652 ####[facility] [address] [place] [address] BMPon 03-12-2021 Creatinine [Mass/Vol] 0.8 mg/dL Normal 0.5-1.3 [facility] Comment on above: Performed By: #### 2 519026, 6130465, 3273824, 2264088, 87725218, 64208717, 52192552 ####[facility] [address] [place] [address] Urea nitrogen [Mass/Vol] 8 mg/dL Normal 5-21 [facility] Comment on above: Performed By: #### 2 732103, 7483356, 6139975, 8732874, 00578660, 75879732, 53119871 ####[facility] [address] [place] [address] Urea nitrogen/Creatinine [Mass ratio] 10 No Units Normal 10-20 [facility] Comment on above: Performed By: #### 2 997170, 6589508, 4891573, 4248669, 55536185, 05876147, 62002894 ####[facility] [address] [place] [address] Anion gap [Moles/Vol] 16 mmol/L Normal 6-16 [facility] Comment on above: Performed By: #### 2 533805, 7932935, 3260777, 4065616, 06826012, 98076711, 58338702 ####[facility] [address] [place] [address] Calcium [Mass/Vol] 8.3 mg/dL Low 8.9-11.1 [facility] Comment on above: Performed By: #### 2 637923, 1336586, 1807853, 3911683, 10208478, 65349621, 21515835 ####[facility] [address] [place] [address] Chloride [Moles/Vol] 99 mmol/L Low 101-111 [facility] Comment on above: Performed By: #### 2 384568, 3939550, 1219663, 5249383, 88973678, 15976518, 27835068 ####[facility] [address] [place] [address] CO2 [Moles/Vol] 21 mmol/L Normal 21-31 [facility] Comment on above: Performed By: #### 2 812249, 1030438, 5018229, 1821419, 72561940, 05884275, 57076021 ####[facility] [address] [place] [address] Glucose [Mass/Vol] 127 mg/dL Normal 55-199 [facility] Comment on above: Result Comment: If t his glucose result represents a fasting glucose, interpretation should refer to the following reference range: 55-99 mg/dL Performed By: #### 2 362587, 3867400, 9065112, 1568392, 59285477, 93877937, 09276096 ####[facility] [address] [place] [address] Potassium [Moles/Vol] 3.5 mmol/L Normal 3.5-5.3 [facility] Comment on above: Performed By: #### 2 158786, 7361178, 7190801, 5595865, 87935807, 03726523, 91182615 ####[address] [place] [address] Sodium [Moles/Vol] 132 mmol/L Low 135-145 [facility] Comment on above: Performed By: #### 2 105830, 3601299, 7942621, 9162405, 40456186, 58737167, 74196431 ####[address] [address] CBC w/ Auto Diffon Erythrocyte distribution width (RBC) [Ratio] 14.2 % Normal 10.9-14.2 [facility] Comment on above: Performed By: #### 2 949428, 4104020, 4059549, 6747606, 79054387, 02280165, 00455549 ####[address] [address] Hematocrit (Bld) [Volume fraction] 39.9 % Normal 34.0-46.0 [facility] Comment on above: Performed By: #### 2 853526, 4044231, 9558835, 9301116, 82741912, 49935622, 31940585 ####[address] [address] Hemoglobin (Bld) [Mass/Vol] 13.0 g/dL Normal 12.0-16.0 [facility] Comment on above: Performed By: #### 2 458876, 0245676, 4448841, 7944960, 52187401, 21266741, 38349200 ####[address] [address] MCH (RBC) [Entitic mass] 27.3 pg Normal 27.0-34.0 [facility] Comment on above: Performed By: #### 2 092917, 7585979, 2136061, 1181332, 41465316, 73047600, 39346371 ####[address] [place] [address] MCHC (RBC) [Mass/Vol] 32.7 g/dL Normal 31.4-36.0 [facility] Comment on above: Performed By: #### 2 083087, 3236695, 9600552, 5699324, 11889646, 01738127, 59196993 ####[place] [place] [address] MCV (RBC) [Entitic vol] 83.4 fL Normal 80.0-100.0 [facility] Comment on above: Performed By: #### 2 803120, 0675374, 4285404, 8738045, 53498308, 79297411, 72017013 ####[address] [address] Platelet mean volume (Bld) [Entitic vol] 7.8 fL Normal 6.4-10.8 [facility] Comment on above: Performed By: #### 2 336303, 4108702, 5321515, 0974927, 32561409, 29490283, 79763288 ####[address] [address] Platelets (Bld) [#/Vol] 188.0 E9/L Normal 150.0-500.0 [facility] Comment on above: Performed By: #### 2 328258, 7108265, 0058203, 9472799, 92262072, 84627946, 25139485 ####[address] [address] RBC (Bld) [#/Vol] 4.8 E12/L Normal 4.3-5.9 [facility] Comment on above: Performed By: #### 2 266162, 4818740, 1440941, 4824235, 86702283, 47830350, 89752642 ####[address] [address] WBC corrected for nucl RBC Auto (Bld) [#/Vol] 4.9 E9/L Normal 4.0-11.0 [facility] Comment on above: Performed By: #### 2 863904, 7979996, 1108571, 6517576, 08151583, 87591341, 42872526 ####[facility] [address] [place] [address] CTA Cheston 03-12-2021 CTA Chest Exam Date/Time: [...] 370 Contrast amount in ml's: 79 Normal [facility] Consent for Treatmenton 0 Consent for Treatment [id number]#1 .00CD:127 Normal [facility] D-Dimeron 03-12-2021 Fibrin D-dimer FEU (PPP) [Mass/Vol] 586 CD:[id number] Abnormal 215-500 [facility] Comment on above: Result Comment: Resu lts Verified By Repeat Analysis Results Called To DANIEL ADAMS/ER By LW And Read Back For Confirmation On 03/12/2021 [...] infections Liver cirrhosis Performed By: #### 2 252400, 3903047, 1281418, 6877997, 23508928, 92296221, 04706574 ####[facility] [address] [place] [address] Discharge Instructionson Discharge Instructions [id number]# 1.00CD:127 Normal [facility] ED Clinical Summaryon 2020 ED Clinical Summary [place] [id number] ED Clinical Summary Person Information Name: ED MURPHY [place] Age: 30 Years : 1990 Sex: Female Language: Icelandic PCP: Tricia Dewey CNP Marital Status: Phone: [phone] MRN: Visit Id: Visit Reason: Fever; Diarrhea; [...] 03/12/2021 12:55:56 03/12/2021 12:55:56 03/12/2021 12:55:56 ADDRESS: [address] [place] [id number] [facility] DOC NOTES: MEDICAL INFORMATION: Prescriptions Given: New Medications [email or web address] [address] [place], [place] [id number], [phone] albuterol (albuterol CFC free 90 mcg/inh Inh [...] Instructions: Follow up: With: Address: When: Tricia Maco [address] [place] [address], [address] [place] [id number] [employer] (1) In 3 days DIAGNOSIS: COVID-19; Near syncope Normal [facility] ED Note-Physicianon 03-12-20 ED Note-Physician Basic Information [...] puff(s), Inhalation, QID, 8 gram, Refill(s) 0, [facility], 173, cm, 03/12/21 9:08:00 EST, Height/Length Dosing, 125, kg, 03/12/21 9:08:00 EST, Weight Dosing azithromycin, 250 mg, Oral, As Directed, Take two tabs by mouth on day one, then one tab daily, # 6 tab(s), Refills(s) 0, Pharmacy: [facility], 173, cm, 03/12/21 9:08:00 EST, Height/Length Dosing, 125, kg, 03/12/21 9:08:00 EST, Weight Dosing dexamethasone, 6 mg = 1 tab(s), Oral, Daily, X 7 day(s), # 7 tab(s), Refills(s) 0, Pharmacy: [facility], 173, cm, 03/12/21 9:08:00 EST, Height/Length [...] Information Tricia Dewey In [address] [facility], [address] [place] [id number]- Business (1) Additional Instructions: Problem List/Past Medical [...] Past, denies, (more content not included)... Normal [facility] Comment on above: Result Comment: Elec tronically Signed By: Tal Gonzalez DO\.br\Date and Time Signed: 03/12/21 12:46 EST ED Patient Education Noteon 03-12-2021 ED Patient Education Note Normal [facility] ED Patient Summaryon 021 ED Patient Summary [place] [address] [place], [place] [address] Patient Discharge Instructions Person Information Name: ED MURPHY Age: 30 Years Arrival Date: 03/12/2021 08:55:19 Discharge Diagnosis: COVID-19; Near syncope Primary Care Physician: Tricia Dewey CNP Provider Information Primary Provider: Tal Gonzalez DO Advanced Ophthalmic Pathologist:None The exam and treatment you received in the Emergency Department were for an urgent problem and are not intended as complete care. It is important that you follow up with a doctor, nurse practitioner, or physician?s transition assistant for ongoing care. If your symptoms [...] Follow-up Instructions: With: Address: When: Tricia Dewey [address] [place] [address], [address] [place] [address] Business (1) In 3 days In the event that this physician does not participate in your insurance network, please consult with your insurance company to find a nearby participating provider. Patient Education Materials: A MESSAGE TO ALL PATIENTS REGARDING OPIOIDS PRESCRIPTION OPIOIDS: WHAT YOU NEED TO KNOW Prescription opioids can be used to help relieve ejfehqdo-qf-sxswlb pain and are often prescribed following a [...] be struggling with addiction, tell your health early breastfeeding care specialist and ask for guidance or call SAM[employer]?S National Helpline at 0-753-583-HELP. v Source: [place] Department of Health and Human (more content not included)... [facility] PT & PTTon 03-12-2021 aPTT Coag (PPP) [Time] 30.8 second(s) Normal 25.1-36.5 [facility] Comment on above: Result Comment: Hepa rin therapeutic range (represented by Anti-Factor Xa activity of 0.2 - 0.4 U/mL) corresponds to PTT of 56.6 - 109.0 sec. Performed By: #### 2 001158, 3834379, 6056345, 0839437, 17778648, 01234787, 93546234 ####[facility] [address] [place] [address] INR Coag (PPP) [Relative time] 1.2 {INR} Invalid Interpretation Code [facility] Comment on above: Result Comment: INR results are specifically intended to assess patients stabilized on long-term Anticoagulation therapy suggested INR?s ?Less Intensive Anticoagulation? 2.0 ? 3.0 Conventional Range 3.0 ? 4.5 Performed By: #### 2 165875, 1866948, 8523664, 4687001, 02615640, 93241679, 29606319 ####[facility] [address] [place] [address] PT Coag (PPP) [Time] 14.1 second(s) High 10.2-12.9 [facility] Comment on above: Performed By: #### 2 666876, 6773372, 2853631, 8822224, 83845880, 84524842, 16993357 ####[facility] [address] [place] [address] Troponin 0 Hr.on 03-12-2021 Troponin I.cardiac [Mass/Vol] 3.90 pg/mL Low 10.10-27.10 [facility] Comment on above: Result Comment: The 95% CI (Confidence Interval) PPV (Positive Predictive Value) for myocardial infarction in females is 38 pg/mL, in males 51 pg/mL. The results should be used in conjunction with clinical conditions of myocardial infarction. (Access High Sensitivity Troponin I Instructions For Use, Randell [place], November 2017) Performed By: #### 2 576642, 8920655, 1115860, 9147880, 89180166, 59205153, 25471070 ####[facility] [address] [place] [address] XR Chest Single Viewon 03-12 XR Chest [...] DO Transcribed by: ROBERT Technologist: FAUSTINA Shepherd [facility] eGFRon 03-12-2021 GFR/1.73 sq M.predicted among blacks MDRD (S/P/Bld) [Vol rate/Area] mL/min/{1.73_m2} Normal >=59 [facility] Comment on above: Order Comment: Order added by Discern Expert. Result Comment: eGFR is race adjusted. AA=. Performed By: #### 2 115865, 9876043, 7129458, 6928319, 90893858, 73939321, 30207134 ####[facility] [address] [place] [address] GFR/1.73 sq M.predicted among non-blacks MDRD (S/P/Bld) [Vol rate/Area] mL/min/{1.73_m2} Normal >=59 [facility] Comment on above: Order Comment: Order added by Discern Expert. Result Comment: Renal Dialysis Technician nandini kidney disease could be indicated at eGFR's of less than 60 mL/min/1.73m2. Kidney failure is indicated at less than 15 mL/min/1.73m2. Performed By: #### 2 632683, 5538374, 7570322, 2544588, 07421427, 03785358, 63712393 ####[facility] [address] [place] [address] Consent for Treatmenton Consent for Treatment [id number]#1 .00CD:127 Normal [facility] Physician Orderon 03-10-2021 Physician Order [id number]# 1.00CD:127 Normal [facility] XR Chest 2 Viewson XR Chest 2 [...] Davis DO Transcribed by: ROBERT Technologist: ISAAC [facility] Vital Signs Date Time Vital Sign Value Performing Clinician Oseas dobbins 08-01-2024 09:31-0400 Body mass index (BMI) [Ratio] 41.21 kg/m2 [employer] Work Phone: [facility] 08-01-2024 09:31-0400 Body weight 124.74 kg [employer] Work Phone: [facility] 08-01-2024 09:31-0400 Diastolic blood pressure 72 mm[Hg] [employer] Work Phone: [facility] 08-01-2024 09:31-0400 Systolic blood pressure 112 mm[Hg] [employer] Work Phone: [facility] 06-03-2024 14:49-0500 Body mass index (BMI) [Ratio] 40.58 kg/m2 Aquiles Adrian DO Work Phone: [facility] 06-03-2024 14:49-0500 Body weight 122.83 kg Aquiles Adrian DO Work Phone: [facility] 06-03-2024 14:49-0500 Diastolic blood pressure 72 mm[Hg] Aquiles Adrian DO Work Phone: [facility] 06-03-2024 14:49-0500 Systolic blood pressure 106 mm[Hg] Aquiles Adrian DO Work Phone: [facility] 05-02-2024 11:56-0500 Body mass index (BMI) [Ratio] 40.28 kg/m2 Aquiles Adrian DO Work Phone: [facility] 05-02-2024 11:56-0500 Body weight 121.93 kg Aquiles Adrian DO Work Phone: [facility] 05-02-2024 11:56-0500 Diastolic blood pressure 70 mm[Hg] Aquiles Adrian DO Work Phone: [facility] 05-02-2024 11:56-0500 Systolic blood pressure 110 mm[Hg] Aquiles Adrian DO Work Phone: [facility] 02-15-2024 14:26-0500 Body mass index (BMI) [Ratio] 41.77 kg/m2 Flower DE LA PAZ Work Phone: [facility] 02-15-2024 14:26-0500 Body weight 126.46 kg Flower DE LA PAZ Work Phone: [facility] 02-15-2024 14:26-0500 Diastolic blood pressure 80 mm[Hg] Flower DE LA PAZ Work Phone: [facility] 02-15-2024 14:26-0500 Systolic blood pressure 120 mm[Hg] Flower DE LA PAZ Work Phone: [facility] 02-12-2024 08:50-0500 Body mass index (BMI) [Ratio] 41.8 kg/m2 Aquiles Adrian DO Work Phone: [facility] 02-12-2024 08:50-0500 Body weight 126.55 kg Aquiles Adrian DO Work Phone: [facility] 02-12-2024 08:50-0500 Diastolic blood pressure 72 mm[Hg] Aquiles Adrian DO Work Phone: [facility] 02-12-2024 08:50-0500 Systolic blood pressure 118 mm[Hg] Aquiles Adrian DO Work Phone: [facility] Encounters Encounter Date Encounter Type Care Provider Facility Start: 08-27-2024 End: 08-27-2024 Bamboo flowsheet Flower DE LA PAZ Work Phone: [facility] Start: 08-27-2024 End: 08-27-2024 Bamboo flowsheet Flower DE LA PAZ Work Phone: [facility] Start: 08-08-2024 End: 08-08-2024 ambulatory AQUILES R [facility] Start: 08-07-2024 End: 08-07-2024 Chart abstracting Scanning Provider External Maternal- Medicine at [facility] Start: 08-01-2024 End: 08-01-2024 flow sheet Aquiles Adrian DO Work Phone: [facility] Comment on above: Second trimester pre gnancy; 24 weeks gestation of ; Multigravida of advanced maternal age in second trimester Start: 08-01-2024 End: 08-01-2024 ambulatory AQUILES ADRIAN Not Available Start: 07-01-2024 End: 07-01-2024 ambulatory FLOWER OTERO Not Available Start: 07-01-2024 End: 07-01-2024 ambulatory AQUILES ADRIAN Not Available Start: 06-03-2024 End: 06-03-2024 ambulatory AQUILES ADRIAN Not Available Start: 06-03-2024 End: 06-03-2024 flow sheet Aquiles Adrian DO Work Phone: [facility] Comment on above: Second trimester pre gnancy; 16 weeks gestation of ; STD exposure; Vaginal discharge; Screening, , for anatomic survey; Antepartum multigravida of advanced maternal age Start: 06-03-2024 End: 06-03-2024 Bamboo flowsheet Aquiles Adrian DO Work Phone: [facility] Start: 06-03-2024 End: 06-04-2024 Bamboo flowsheet Aquiles Adrian DO Work Phone: [facility] Start: 06-03-2024 End: 06-04-2024 External Result Encounter Aquiles Adrian DO Work Phone: [facility] Unsolicited Start: 05-02-2024 End: 05-02-2024 Bamboo flowsheet Aquiles Adrian DO Work Phone: [facility] Start: 05-02-2024 End: 05-02-2024 Bamboo flowsheet Aquiles Adrian DO Work Phone: [facility] Start: 05-02-2024 End: 05-02-2024 flow sheet Aquiles Adrian DO Work Phone: [facility] Comment on above: First trimester preg lakia; 11 weeks gestation of Start: 05-02-2024 End: 05-02-2024 ambulatory AQUILES ADRIAN Not Available Start: 04-11-2024 End: 04-11-2024 ambulatory Aquiles Adrian Facility:[facility] Start: 04-11-2024 End: 04-11-2024 Departed Referred Aquiles Adrian DO Work Phone: [facility] Start: 04-11-2024 End: 04-11-2024 Clinisync Result Encounter Aquiles Adrian DO Work Phone: [facility] Unsolicited Start: 04-11-2024 End: 04-11-2024 Clinisync Result Encounter Aquiles Adrian DO Work Phone: [facility] Unsolicited Start: 04-11-2024 End: 04-11-2024 ambulatory AQUILES ADRIAN Not Available Start: 03-23-2024 End: 03-23-2024 Clinisync Result Encounter Aquiles Adrian DO Work Phone: [facility] Unsolicited Start: 03-23-2024 End: 03-23-2024 Clinisync Result Encounter Aquiles Adrian DO Work Phone: [facility] Unsolicited Start: 03-22-2024 End: 03-22-2024 Clinisync Result Encounter Aquiles Adrian DO Work Phone: [facility] Unsolicited Start: 03-22-2024 End: 03-22-2024 Clinisync Result Encounter Aquiles Adrian DO Work Phone: [facility] Unsolicited Start: 03-20-2024 End: 03-20-2024 Clinisync Result Encounter Aquiles Adrian DO Work Phone: [facility] Unsolicited Start: 03-20-2024 End: 03-20-2024 Clinisync Result Encounter Aquiles Adrian DO Work Phone: [facility] Unsolicited Start: 03-18-2024 End: 03-18-2024 Clinisync Result Encounter Aquiles Adrian DO Work Phone: [facility] Unsolicited Start: 03-18-2024 End: 03-18-2024 Clinisync Result Encounter Aquiles Adrian DO Work Phone: [facility] Unsolicited Start: 03-15-2024 End: 03-15-2024 Clinisync Result Encounter Aquiles Adrian DO Work Phone: [facility] Unsolicited Start: 03-15-2024 End: 03-15-2024 Clinisync Result Encounter Aquiles Adrian DO Work Phone: [facility] Unsolicited Start: 03-13-2024 End: 03-13-2024 Clinisync Result Encounter Aquiles Adrian DO Work Phone: [facility] Unsolicited Start: 03-13-2024 End: 03-13-2024 Clinisync Result Encounter Aquiles Adrian DO Work Phone: [facility] Unsolicited Start: 03-11-2024 End: 03-11-2024 Clinisync Result Encounter Aquiles Adrian DO Work Phone: [facility] Unsolicited Start: 03-11-2024 End: 03-11-2024 Clinisync Result Encounter Aquiles Adrian DO Work Phone: [facility] Unsolicited Start: 03-02-2024 End: 03-03-2024 Clinisync Result Encounter Aquiles Adrian DO Work Phone: [facility] Unsolicited Start: 03-02-2024 End: 03-03-2024 Clinisync Result Encounter Aquiles Adrian DO Work Phone: [facility] Unsolicited Start: 02-15-2024 End: 02-15-2024 Bamboo flowsheet Flower DE LA PAZ Work Phone: [facility] Start: 02-15-2024 End: 02-24-2024 Bamboo [...] Date Procedure Procedure Detail Performing Clinician Start: 06-03-2024 RECURRENT VAGINITIS (HTRX) Aquiles Campbell DO Work Phone: Start: 06-03-2024 Urnls dip stick/tabl et rgnt non-auto w/o micrscp Aquiles Adrian DO Work Phone: Start: 05-02-2024 Urnls dip stick/tabl et rgnt non-auto w/o micrscp Flower DE LA PAZ Work Phone: Start: 04-11-2024 ALL CBC WITH AUTO DIFF Aquiles Adrian DO Work Phone: Start: 03-23-2024 [facility] PREG QUANT HCG Core y Adrian DO Work Phone: Start: 03-22-2024 [facility] PREG QUANT HCG Core y Adrian DO Work Phone: Start: 03-20-2024 [facility] PREG QUANT HCG Core y Adrian DO Work Phone: Start: 03-18-2024 [facility] PREG QUANT HCG Core y Adrian DO Work Phone: Start: 03-15-2024 [facility] PREG QUANT HCG Core y Adrian DO Work Phone: Start: 03-13-2024 [facility] PREG QUANT HCG Core y Adrian DO Work Phone: Start: 03-11-2024 [facility] PREG QUANT HCG Core y Adrian DO Work Phone: Start: 03-02-2024 ALL PROGESTERONE Aquiles Adrian DO Work Phone: Start: 02-15-2024 IGP,APTIMA HPV,AGE GDLN Flower DE LA PAZ Work Phone: Plan of Treatment Date Care Activity Detail Author Start: 12-09-2024 Influenza vaccination Influenza Vacc ine [facility] Start: 08-27-2024 End: 08-27-2024 Patient encounter procedure [facility] Comment on above: Arrived Start: 08-08-2024 End: 08-08-2024 Patient encounter procedure 08/08/2024 8:00 AM EDT Appointment [facility] [address] [address] [place] [id number] [facility] Start: 07-01-2024 End: 07-01-2024 Patient encounter procedure 07/01/2024 9:40 AM EDT Routine [facility] [address] [address] Flower Otero PA [address] [place] [address] [facility] Start: 07-01-2024 End: 07-01-2024 Professional / ancillary services management 07/01/2024 8:30 AM EDT Ancillary Procedure [facility] [address] [address] [facility] Start: 06-11-2024 End: 06-11-2024 Patient encounter procedure 06/11/2024 8:40 AM EST Office Visit [facility] [address] [address] Aquiles Campbell, [address] [place] [address] [facility] Start: 06-03-2024 End: 06-03-2024 Patient encounter procedure 06/03/2024 2:20 PM EST Routine [facility] [address] [address] Aquiles Campbell, DO [address] [place] [address] [place] [address] [facility] Start: 06-03-2024 End: 08-01-2024 Alpha fetoprotein, maternal Alpha fetoprotein, maternal Lab Routine 16 weeks gestation of Expected: 06/03/2024 (Approximate), Expires: 08/01/2024 [facility] Comment on above: Expected: 06/03/2024 (Approximate), Expires: 08/01/2024 Start: 06-03-2024 End: 06-03-2025 US for US OB 14+ weeks anatomy scan Imaging Routine Screening, , for anatomic survey Expected: 06/03/2024, Expires: 06/03/2025 [facility] Comment on above: Expected: 06/03/2024 , Expires: 06/03/2025 Start: 05-02-2024 End: 05-02-2024 Patient encounter procedure [facility] Comment on above: Arrived Start: 04-11-2024 Urine culture [facility] Start: 04-11-2024 Bacteria identified in Urine by Culture Urine Culture [facility] Start: 04-11-2024 End: 04-11-2024 ambulatory 04/11/2024 1:00 PM EST Initial [facility] [address] [place] [address] [facility] Start: 04-11-2024 End: 04-11-2024 Professional / ancillary services management 04/11/2024 12:30 PM EST Ancillary Procedure [facility] [address] [place] [address] [facility] Start: 02-15-2024 End: 02-15-2024 Patient encounter procedure [facility] Comment on above: Arrived Start: 02-12-2024 End: 02-12-2024 Patient encounter procedure 02/12/2024 8:50 AM EST Office Visit [facility] [address] [place] [address] Aquiles Campbell, DO [address] [place] [address] Arrived [facility] Comment on above: Arrived Start: 2009 Screening for malign ant neoplasm of cervix Pap Smear [facility] Start: 11-29-2007 DTaP,Tdap and Td Vaccines (1 - Tdap) DTaP,Tdap and Td Vaccines (1 - Tdap) [facility] Start: 2006 Adult BMI Screening Adult BMI Screen ing [facility] Start: 2000 Depression Screening Depression Scre ening [facility] Start: 2000 Tobacco Screening Tobacco Screening [facility] CHLAMYDIA TRACHOMATI S (GENITO/STI) CHLAMYDIA TRACHOMATIS (GENITO/STI) Lab Routine STD exposure Ordered: 06/03/2024 [facility] Comment on above: Ordered: 06/03/2024 Cytology Cervical or vaginal smear or scraping study Pap Smear Pathology and Cytology Routine Well woman exam with routine gynecological exam Ordered: 02/15/2024 [facility] Work Phone: Comment on above: Ordered: 02/15/2024 Human papilloma viru s DNA [Presence] in Unspecified specimen by Probe with amplification HPV DNA probe, amplified Microbiology Routine Well woman exam with routine gynecological exam Ordered: 02/15/2024 [facility] Comment on above: Ordered: 02/15/2024 Neisseria gonorrhoea e DNA [Presence] in Unspecified specimen by LYNNETTE with probe detection Neisseria gonorrhea DNA probe, direct Lab Routine STD exposure Ordered: 06/03/2024 [facility] Comment on above: Ordered: 06/03/2024 SURESWAB(R) ADVANCED VAGINITIS PLUS, TMA SURESWAB(R) ADVANCED VAGINITIS PLUS, TMA Pathology and Cytology Routine STD exposure Ordered: 06/03/2024 [facility] Work Phone: Comment on above: Ordered: 06/03/2024 Payers Date Payer Category Payer Self-pay 2024 [employer] [facility] [id number] 2023 Blue Cross Blue Shield [id number] 2023 Unknown [id number] 1988 Unknown [id number] 2.16.840.1.084956.3.579. 2.593 1988 Unknown [id number] 2.16.840.1.958101.3.579. 2.593 1988 Unknown [id number] 2.16.840.1.974688.3.579. 2.593 1988 Unknown [id number] 2.16.840.1.455229.3.579. 2.593 1988 Unknown [id number] 2.16.840.1.702702.3.579. 2.593 1988 Unknown [id number] 2.16.840.1.610226.3.579. 2.593 1988 Unknown [id number] 2.16.840.1.673763.3.579. 2.593 1988 Unknown [id number] 2.840.1.884771.3.579. 2.593 1988 Unknown [id number] 2.840.1.277537.3.579. 2.593 1988 Unknown [id number] 2.840.1.866092.3.579. 2.593 1988 Unknown [id number] 2.16840.1.716006.3.579. 2.593 1988 Unknown [id number] 2.16840.1.901576.3.579. 2.593 1988 Unknown [id number] 2.16.840.1.024467.3.579. 2.1259 1988 Unknown [id number] 2.16.840.1.695087.3.579. 2.1259 1988 Unknown [id number] 2.16.840.1.295324.3.579. 2.1259 1988 Unknown [id number] 2.16.840.1.542735.3.579. 2.1259 1988 Unknown [id number] 2.16.840.1.551438.3.579. 2.1259 1988 Unknown [id number] 2.16.840.1.311552.3.579. 2.1259 1988 Unknown [id number] 2.16.840.1.966653.3.579. 2.9 1988 Unknown [id number] 2.16.840.1.978601.3.579. 2.9 1988 Unknown [id number] 2.16.840.1.607310.3.579. 2.1259 1988 Unknown [id number] 2.16.840.1.685574.3.579. 2.9 1988 Unknown [id number] 2.16.840.1.962867.3.579. 2.1286 1959 Private Health Insurance [id number] Unknown [id number] 2.16.840.1.812255.3.579. 2.531 Unknown Erika BEST/MOLINA [id number] Social History Date Type Detail Facility Start: 12-01-2022 End: 08-07-2024 Tobacco smoking status NHIS Never smoked tobacco [facility] Start: 08-24-2023 End: 08-01-2024 Alcoholic beverage intake Lifetime non-drinker (finding) [facility] Start: 12-01-2022 End: 08-24-2023 History of Social function [facility] Start: 12-01-2022 End: 08-24-2023 Tobacco use panel [facility] Start: 12-01-2022 Education 21 [facility] Start: 12-01-2022 Alcohol Comment Caffeine intake: non e [facility] Start: 1990 Sex assigned at Not on file [facility] Start: 02-25-2024 [facility] Tobacco smoking stat us ALIS Unknown if ever smoked [facility] Work Phone: Start: 04-12-2024 End: 08-05-2024 Sex Female (finding) [facility] Start: 1990 Sex Assigned At Female F [facility] Start: 08-07-2024 Tobacco use and exposure Smokeless tobacco non-user [employer] Medical Equipment Procedure Code Equipment Code Equipment Origin al Text Equipment Identifier Dates 1 strip by In Vi tro route Daily Use in the morning prior to breakfast, 1 hour after each meal for a total of 4times daily. [id number] Start: 07-25-2024 End: 08-24-2024 1 each by In Vit ro route Daily Use to check FSBS four times daily [id number] Start: 07-25-2024 End: 08-24-2024 Clinical Notes 02-12-2024 to 08-01-2024 Daniela Candelaria, COSMETIC CHEMIST - 08/01/2024 9:10 AM EDTSlavonne Pimentelr, COSMETIC CHEMIST - 06/03/2024 2:20 PM ESTSusatrina Spitler, COSMETIC CHEMIST - 05/02/2024 11:40 AM BRAIN Good - 02/15/2024 2:00 PM EST Note Date & Type Note Facility 08-01-2024 History of Presen t illness Narrative Reason for Appointment: Patient ID: Ed Murphy is a 33 y.o. female who presents for Routine Visit Patient presents today for Return OB appointment. MEDICATIONS Current Outpatient Medications Medication Instructions Alcohol Swabs (Alcohol Prep Pad) 70 % pads 1 Pad, Topical, Daily, Use four times daily to check FSBS. Blood Glucose Monitoring Suppl (D-Care Glucometer) w/Device kit 1 kit, Does not apply, Daily, Use four times daily to check FSBS. In the morning prior to breakfast & 1 hour after each meal for a total of 4times daily. Glucose Blood (Blood Glucose Test) strip 1 strip, In Vitro, Daily, Use in the morning prior to breakfast, 1 hour after each meal for a total of 4times daily. 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 Exam conducted with a local delivery truck driver present. Vitals: Estimated body mass index is 41.21 kg/m as calculated from the following: Height as of 08/22/22: 5' 8.5 . Weight as of this encounter: 275 lb. BP: 112/72 Patient's last menstrual period was 02/11/2024. ASSESSMENT & PLAN ICD-10-CM 1. Second trimester Z34.92 POCT urinalysis dipstick manually resulted 2. 24 weeks gestation of Z3A.24 3. Multigravida of advanced maternal age in second trimester O09.522 OB follow up transabdominal approach Patient presents today for a routine obstetrics appointment. Patient is currently 24w4d with a Estimated Date of Delivery: 11/17/24. Reviewed patients sugars and advised they are good, but to stay away from cereal. Patient will continue to monitor. Patient had follow up anatomy scan today and anatomy not cleared. Patient will be referred to [facility] for Level II Scan and consult if needed. Discussed patient upcoming vacation and precautions given. Patient will have growth scan start at 28 weeks gestation. Patient to return to clinic in 4 weeks. Patient to drop off FSBS results for routine in the meantime. Documented by Daniela Candelaria LPN on behalf of: Aquiles Campbell DO documented in this encounter [facility] 06-03-2024 History of Presen t illness Narrative Reason for Appointment: Patient ID: Ed Murphy is a 33 y.o. female who presents for Routine Visit Patient presents today for Return OB appointment. MEDICATIONS Current Outpatient Medications Medication Instructions Htjdynag-Xkt-Fo-FA ( 1 + IRON PO) Progesterone 200 MG suppository 1 suppository, Vaginal, Nightly ALLERGIES Allergies Allergen Reactions Cefadroxil Other Reaction(s): [...] 2010 Personal history of other medical treatment [place] teeth removed HISTORY PAST MEDICAL HISTORY SOCIAL HISTORY Past Medical History: Diagnosis Date Bleeding in early 12/02/2022 Frequent UTI Herpes History of chlamydia 2007 History of depression no meds 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 Personal history of other medical treatment Frenectomy x2 [place] teeth removed Social History Tobacco Use Smoking [...] Laterality Date SECTION, LOW TRANSVERSE COLPOSCOPY 2010 GALLBLADDER SURGERY 2018 OTHER SURGICAL HISTORY frenectomy OTHER SURGICAL HISTORY [...] nursing note reviewed. Exam conducted with a local delivery truck driver present. Vitals: Estimated body mass index is 40.58 kg/m as calculated from the following: Height as of 08/22/22: 5' 8.5 . Weight as of this encounter: 270 lb 12.8 oz. BP: 106/72 Patient's last menstrual period was 02/11/2024. ASSESSMENT & PLAN ICD-10-CM 1. Second trimester Z34.92 2. 16 weeks gestation of Z3A.16 POCT urinalysis dipstick manually resulted Alpha fetoprotein, maternal Alpha fetoprotein, maternal 3. STD exposure Z20.2 SURESWAB(R) ADVANCED VAGINITIS PLUS, TMA CHLAMYDIA TRACHOMATIS (GENITO/STI) Neisseria gonorrhea DNA probe, direct 4. Vaginal discharge N89.8 5. Screening, , for anatomic survey Z36.89 US OB 14+ weeks anatomy scan US OB 14+ weeks anatomy scan 6. Antepartum multigravida of advanced maternal age O09.529 Patient presents today for a routine obstetrics appointment. Patient is currently 16w1d with a Estimated Date of Delivery: 11/17/24. Discussed patient stopping progesterone. Discussed Maternal Medicine with patient and spouse & patient would like to hold off on referral at this time. Discussed [place] testing if patient desires to check for genetic testing and patient declines at this time as well. Obtained vaginal cultures without issue & patient to return to clinic in 4 weeks for routine OB appointment. Documented by Daniela Candelaria LPN on behalf of: Aquiles Campbell DO documented in this encounter [facility] 05-02-2024 History of Presen t illness Narrative Reason for Appointment: Patient ID: Ed Murphy is a 33 y.o. female who presents for Routine Visit Patient presents today for Return OB appointment. MEDICATIONS Current Outpatient Medications Medication Instructions Xgfbdobi-Svs-Fj-FA ( 1 + IRON PO) Vit-Fe Rzahksc-HC-DVK ( VITAMIN/MIN +DHA PO) Progesterone 200 MG suppository 1 suppository, Vaginal, Nightly ALLERGIES Allergies Allergen Reactions Cefadroxil Other Reaction(s): [...] 2010 Personal history of other medical treatment [place] teeth removed HISTORY PAST MEDICAL HISTORY SOCIAL HISTORY Past Medical History: Diagnosis Date Bleeding in early 12/02/2022 Frequent UTI Herpes History of chlamydia 2007 History of depression no meds 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 Personal history of other medical treatment Frenectomy x2 [place] teeth removed Social History Tobacco Use Smoking [...] Laterality Date SECTION, LOW TRANSVERSE COLPOSCOPY 2010 GALLBLADDER SURGERY 2018 OTHER SURGICAL HISTORY frenectomy OTHER SURGICAL HISTORY [...] Exam Constitutional: Appearance: Normal appearance. She is normal weight. HENT: Head: Normocephalic. Cardiovascular: Rate and Rhythm: Normal rate. Pulses: Normal pulses. Pulmonary: Effort: Pulmonary effort is normal. Breath sounds: Normal breath sounds. Abdominal: Palpations: Abdomen is soft. Musculoskeletal: General: Normal range of motion. Neurological: General: No focal deficit present. Mental Status: She is alert and oriented to person, place, and time. Psychiatric: Mood and Affect: Mood normal. Behavior: Behavior normal. Thought Content: Thought content normal. Judgment: Judgment normal. Vitals and nursing note reviewed. Vitals: Estimated body mass index is 40.28 kg/m as calculated from the following: Height as of 08/22/22: 5' 8.5 . Weight as of this encounter: 268 lb 12.8 oz. BP: Patient's last menstrual period was 02/11/2024. ASSESSMENT & PLAN ICD-10-CM 1. First trimester Z34.91 POCT urinalysis dipstick manually resulted 2. 11 weeks gestation of Z3A.11 Patient would like to know if she is able to fly in September. Able to have intercourse discuss MFM at next appointment . Documented by Daniela Candelaria LPN on behalf of: ray martinez documented in this encounter [facility] 02-15-2024 History of Presen t illness Narrative Reason for Appointment: Patient ID: Ed Murphy is a 33 y.o. female who presents for Well Women Visit Patient presents today for Annual Exam. MEDICATIONS Current Outpatient Medications Medication Instructions co-enzyme Q-10 30 mg, Oral, Daily guaiFENesin (MUCINEX) 1,200 mg, Oral, 2 times daily, Do not crush, chew, or split. 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 Exam conducted with a local delivery truck driver present. Vitals: Estimated body mass index is [...] of: BRAIN Martinez documented in this encounter [facility] [facility] 02-12-2024 History of Presen t illness Narrative Reason for Appointment: Patient ID: Ed Murphy is a 33 y.o. female who presents for Infertility (Pt present today to discuss infertility) Patient presents today for Consult appointment. 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 Exam conducted with a local delivery truck driver present. Vitals: Estimated body mass index is [...] in this encounter [facility] Evaluation note Diagnosis Anovulation Female infertility associated with anovulation [facility]* Diagnosis Well woman exam with routine gynecological exam Routine gynecological examination documented [facility] this [facility] noteNo assessment information available[facility] Work Phone: Evaluation note* Diagnosis First trimester state, incidental 11 weeks gestation of documented [facility]* Diagnosis Second trimester state, incidental 16 weeks gestation of STD exposure Vaginal discharge Leukorrhea, not specified as infective Screening, , for anatomic survey Encounter for anatomic survey Antepartum multigravida of advanced maternal age documented [facility]* Diagnosis Second trimester state, incidental 24 weeks gestation of Multigravida of advanced maternal age in second trimester documented in this encounter [facility] HealthcareInstructionsNot on filedocumented in this encounterProAs[facility] Summary Purpose Family History No Family History Records FoundNo Family History Records FoundNo Family History Records FoundNo Family History Records FoundNo Family History Records Found Advance Directives No Advanced Directives Records FoundNo Advanced Directives Records FoundNo Advanced Directives Records FoundNo Advanced Directives Records FoundNo Advanced Directives Records Found Additional Source Comments INFORMATION SOURCE (unrecogn ized section and content) DATE CREATED AUTHOR 07/05/2021 [facility] [employer] [facility] DATE CREATED AUTHOR AUTHOR'S ORGANIZ ATION 08/23/2022 [facility] DATE CREATED AUTHOR AUTHOR'S ORGANIZ ATION 04/19/[address] [facility] DATE CREATED AUTHOR AUTHOR'S ORGANIZ ATION 08/02/2024 [facility] DATE CREATED AUTHOR AUTHOR'S ORGANIZ ATION 08/13/2024 [facility] Reason for Visit (unrecogniz ed section and content) Reason Comments Infertility Pt present today to discuss infertility Reason Comments Well Women Visit Reason Comments Routine Visit Care Teams (unrecognized sec tion and content) Team Status: Inactive Member Role Status Dates Aquiles Campbell DO Attending Provider Active Start : April 11, 2024 End: April 11, 2024 Goals (unrecognized section and content) Goals may be documented in a n alternate sectionNot on filedocumented as of this encounter FOR RECORDS PERTAINING TO PATIENTS WHO ARE [...] BE BASED ON THE PRIMARY CLINICAL RECORDS. [facility] [employer] provides no warranty or guarantee of the accuracy or completeness of information in this document.
[2024-08-27 10:28] LABS: Basophils Percent Auto 0.4 % (0.2-2.0); Eosinophils Absolute Auto 0.2 10^3/uL (0.0-0.7); Eosinophils Percent Auto 1.5 % (0.9-7.0); Hematocrit 32.9 % (36.0-48.0); Immature Granulocytes Abs Auto 0.08 10^3/uL (0.00-0.03); Immature Granulocytes Pct Auto 0.8 % (0.0-0.5); Lymphocytes Absolute Auto 1.9 10^3/uL (1.2-3.8); Lymphocytes Percent Auto 19.2 % (20.5-60.0); Mean Corpuscular HGB Conc 33.4 g/dL (29.9-35.2); Mean Corpuscular Hemoglobin 30.3 pg (26.7-34.0); Mean Corpuscular Volume 90.6 fL (81.0-99.0); Mean Platelet Volume 9.6 fL (9.5-13.5); Monocytes Absolute Auto 0.6 10^3/uL (0.3-0.8); Monocytes Percent Auto 6.4 % (1.7-12.0); Neutrophils Absolute Auto 7.2 10^3/uL (1.4-6.5); Neutrophils Percent Auto 71.7 % (43.0-75.0); Platelet Count 287 10^3/uL (150-450); Red Blood Count 3.63 10^6/uL (4.20-5.40); Red Cell Distribution Width 13.9 % (11.0-15.0)
[2024-08-27 10:36] LABS: Estimated Average Glucose 114 mg/dL; Glycohemoglobin A1C 5.6 % (4.5-6.2)
== END 2024-08-27 09:52 | disposition home or self-care (01) ==
LOC: LAB 09:55
PROVIDERS: Visit Provider Physician Assistant
DX: Z34.93 Encounter for supervision of normal pregnancy, unspecified, third trimester (principal); Z3A.28 28 weeks gestation of pregnancy
CPT/HCPCS: 36415; 83036; 85025

== ENCOUNTER 2024-09-24 15:56 | Outpatient (OUT) | payer BC, SELFPAY ==
--- OUTSIDE RECORDS SUMMARY | 2024-09-17 09:30 | XMS_ITS | Encounter Summary ---
Author Organization [facility] Address [address] [place] [address] Care Team Providers Care Oven Heater Helper Name Role Phone Unavailable Primary Care Provider Unavailabl e Encounter Details Date Type Department Care Team (Latest Contact Info) Description 09/17/2024 9:30 AM EDT Ancillary Procedure [facility] [address] [place] [address] Size of fetus inconsistent with dates in second trimester ([facility]) Social History Tobacco Use Types Packs/Day Years Used Date Smoking Tobacco: Never Alcohol Use Standard Drinks/Week Comments Never 0 (1 standard drink = 0.6 oz pur e alcohol) Caffeine intake: none Education Answer Date Recorded What is the highest level of school you have completed or the highest degree you have received? Some college, no degree 12/01/2022 Estimated Date of Delivery Comme nts Yes 11/17/2024 Based on last me nstrual period of 02/11/2024 Sex and Gender Information Value Date Recorded Sex Assigned at Not on file Legal Sex Female 6:44 PM EDT Gender Identity Not on file Sexual Orientation Not on file Occupation Industry Job Start Date Job End Date Works at [employer] Not on file Not on file Not on file documented as of this encounter Plan of Treatment Upcoming Encounters Date Type Department Care Team (Late st Contact Info) Description 09/30/2024 3:30 PM EDT Routine [facility] [address] [place] [address] Flower Joyce PA [address] [place] [address] documented as of this encounter Procedures Procedure Name Priority Date/Time Associated Diagnosis Comments US OB FOLLOW UP TRANSABDOMINAL APPROACH Routine 09/17/2024 9:58 AM EDT Size of fetus inconsistent with dates in second trimester ([facility]) documented in this encounter Results * US OB follow up transabdominal approach (09/17/2024 9:58 AM EDT) Anatomical Region Laterality Modality Body Ultrasound 09/18/2024 8:25 AM EDT Narrative 09/18/2024 8:25 AM EDT EXAM: US OB FOLLOW UP TRANSABDOMINAL APPROACH HISTORY: Inconsistent size. COMPARISON: Ob ultrasound 08/01/2024. TECHNIQUE: Two-dimensional transabdominal grayscale ultrasound imaging of the pelvis was performed. FINDINGS: Gestation: Single Presentation: Cephalic Cardiac Activity: 136 beats per minute Amniotic Fluid Index: 14.4 cm MEASUREMENTS: BPD: 7.9 cm EGA: 31 weeks 4 days HC: 29.7 cm EGA: 32 weeks 6 days AC: 29.9 cm EGA: 33 weeks 6 days FL: 6.3 cm EGA: 32 weeks 3 days HC/AC Ratio: 0.99 The gestational age by today's ultrasound is 32 weeks 5 days (+/- 16 days gestation). Estimated Weight: 2130 grams, +/- 320 grams ( 4 lb 11 oz). Weight Percentile for gestational age: 92 % IMPRESSION: 1. Single, live intrauterine gestation 31 weeks, 2 days by LMP. Today's ultrasound measurements correlate with a gestational age of 32 weeks 5 days. Estimated weight is 2130 grams, +/- 320 grams ( 4 lb 11 oz) which correlates to 92 %. KAY is 11/07/2024. 2. growth is measuring large for gestational age. Interpreted by: Electronically signed by MEGHANN KNIGHT II, MD, PHD at 18-Sep-2024 08:23:43 AM [facility] Procedure Note Meghann Knight MD - 09/18/2024 EXAM: US OB FOLLOW UP TRANSABDOMINAL APPROACH HISTORY: Inconsistent size. COMPARISON: Ob ultrasound 08/01/2024. TECHNIQUE: Two-dimensional transabdominal grayscale ultrasound imaging ofthe pelvis was performed. FINDINGS: Gestation: Single Presentation: Cephalic Cardiac Activity: 136 beats per minute Amniotic Fluid Index: 14.4 cm MEASUREMENTS: BPD: 7.9 cm EGA: 31 weeks 4 days HC: 29.7 cm EGA: 32 weeks 6 days AC: 29.9 cm EGA: 33 weeks 6 days FL: 6.3 cm EGA: 32 weeks 3 days HC/AC Ratio: 0.99 The gestational age by today's ultrasound is 32 weeks 5 days (+/- 16 daysgestation). Estimated Weight: 2130 grams, +/- 320 grams ( 4 lb 11 oz). Weight Percentile for gestational age: 92 % IMPRESSION: 1. Single, live intrauterine gestation 31 weeks, 2 days by LMP. Today'sultrasound measurements correlate with a gestational age of 32 weeks 5days. Estimated weight is 2130 grams, +/- 320 grams ( 4 lb 11 oz)which correlates to 92 %. KAY is 11/07/2024. 2. growth is measuring large for gestational age. Interpreted by: Electronically signed by MEGHANN KNIGHT II, MD, PHD 08:23:43 AM [facility] us [facility] US PROCEDURES Final Resul t documented in this encounter Visit Diagnoses Diagnosis Size of fetus inconsistent with dates in second trimester ([facility]) documented in this encounter
--- OUTSIDE RECORDS SUMMARY | 2024-09-17 10:20 | XMS_ITS | Encounter Summary ---
Author Organization [facility] Address [address] [place] [address] Care Team Providers Care Platinum And Palladium Kettle Tender Name Role Phone Unavailable Primary Care Provider Unavailabl e Reason for Visit * Reason Comments Routine Visit Encounter Details Date Type Department Care Team (Late st Contact Info) Description 09/17/2024 10:20 AM EDT Routine [facility] [address] [place] [id number] Theodore Campbell, DO [address] [place] [address] 31 weeks gestation of ([facility]); Third trimester ([facility]); Multigravida of advanced maternal age in third trimester ([facility]); Excessive growth affecting management of , antepartum, single or unspecified fetus ([facility]) Social History Tobacco Use Types Packs/Day [...] Start Date Job End Date Works at [employer] Not on file Not on file Not on file documented as of this encounter Last Filed Vital Signs Vital Sign Reading Time Taken Comments Blood Pressure 112/70 09/17/2024 10:49 AM EDT Pulse - - Temperature - - Respiratory Rate - - Oxygen Saturation - - Inhaled Oxygen Concentration - - Weight 127 kg (280 lb 1.9 oz) 09/17/2024 10:49 A M EDT Height - - Body Mass Index 41.97 08/22/2022 12:00 PM EDT documented in this encounter Progress Notes * Alexus Marcial, ZHENG - 09/17/2024 10:20 AM EDT Reason for Appointment: Patient ID: Beulah Murphy is a 33 y.o. female who presents for Routine Visit Patient presents today for Return OB appointment. MEDICATIONS Current Outpatient Medications Medication Instructions Alcohol Swabs (Alcohol Prep Pad) 70 % pads 1 Pad, Topical, Daily, Use four times daily to check FSBS. Blood Glucose Monitoring Suppl (D-Piczo Glucometer) w/Device kit 1 kit, Does not apply, Daily, Use four times daily to check FSBS. In the morning prior to breakfast & 1 hour after each meal for a total of 4times daily. iron polysaccharides (PROFE) 391.3 mg, Oral, Daily Vimxwgnf-Jlv-Iz-FA ( 1 + IRON PO) ALLERGIES Allergies Allergen Reactions Cefadroxil Hives Other Reaction(s): hives, Unknown Other Reaction(s): hives, rash Latex Itching Other Reaction(s): Itching Other Reaction(s): Hives Paroxetine Other Reaction(s): Unknown PROBLEMS Active Ambulatory Problems Diagnosis Date Noted Anovulation 12/02/2022 DUB (dysfunctional uterine bleeding) 12/02/2022 Menstrual disorder 12/02/2022 Missed menses 12/02/2022 Yeast infection 12/02/2022 31 weeks gestation of 09/17/2024 Third trimester 09/17/2024 Multigravida of advanced maternal age in third trimester 09/17/2024 Resolved Ambulatory Problems Diagnosis Date Noted Bleeding in early 12/02/2022 Past Medical History: Diagnosis Date Frequent UTI Herpes History of chlamydia 2007 History of depression 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 Personal history of other medical treatment [place] teeth removed HISTORY PAST MEDICAL HISTORY SOCIAL HISTORY Past Medical History: Diagnosis Date Bleeding in early 12/02/2022 Frequent UTI Herpes History of chlamydia 2008 History of depression no meds 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 Personal history of other medical treatment Frenectomy x2 [place] teeth removed Social History Tobacco Use Smoking [...] SECTION, LOW TRANSVERSE COLPOSCOPY 2010 GALLBLADDER SURGERY 2019 OTHER SURGICAL HISTORY frenectomy OTHER SURGICAL HISTORY [...] nursing note reviewed. Exam conducted with a instruction dean present. Vitals: Estimated body mass index is 41.97 kg/m?? as calculated from the following: Height as of 08/22/22: 5' 8.5 . Weight as of this encounter: 280 lb 1.9 oz. BP: 112/70 Patient's last menstrual period was 02/11/2024. ASSESSMENT & PLAN ICD-10-CM 1. 31 weeks gestation of Z3A.31 POCT urinalysis dipstick manually resulted 2. Third trimester Z34.93 POCT urinalysis dipstick manually resulted 3. Multigravida of advanced maternal age in third trimester O09.523 POCT urinalysis dipstick manually resulted US biophysical profile w non stress test 4. Excessive growth affecting management of , antepartum, single or unspecified fetus O36.60X0 US biophysical profile w non stress test Return OB: Patient presents today for a routine obstetrics appointment. Patient is currently 31w2d . Patient states she is doing well but has complaints of being tired due to current . Patient has verbalizes frequent movement. labor precautions was discussed/given and patient was instructed to perform kick counts three times a day. Pt given nst/bpp orders to have scheduled Orders Placed This Encounter Procedures US biophysical profile w non stress test POCT urinalysis dipstick manually resulted Follow Up: Patient is to return to office in 2 week for routine OB appointment. Documented by Alexus Marcial LPN on behalf of: Theodore Campbell DO documented in this encounter Plan of Treatment Upcoming Encounters Date Type Department Care Team (Late st Contact Info) Description 09/30/2024 3:30 PM EDT Routine [facility] [address] [place] [id number] Flower Joyce PA [address] [place] [address] Scheduled Orders Name Type Priority Associated Diagnoses Orde r Schedule US biophysical profile w non stress test Imaging Routine Multigravida of advanced maternal age in third trimester ([facility]) Excessive growth affecting management of , antepartum, single or unspecified fetus ([facility]) Expected: 09/17/2024 (Approximate), Expires: 03/19/2025 documented as of this encounter Procedures Procedure Name Priority Date/Time Associated Diagnosis Comments POCT URINALYSIS DIPSTICK Routine 09/17/2024 10:37 AM EDT 31 weeks gestation of ([facility]) Third trimester ([facility]) Multigravida of advanced maternal age in third trimester ([facility]) documented in this encounter Results * POCT urinalysis dipstick manually resulted (09/17/2024 10:37 AM EDT) Color, UA Yellow Clarity, UA Clear Glucose, UA Negative Negative - 2000(110) ++++ mg/dL Bilirubin, UA Negative Negative - 4(70) +++ mg/dL Ketones, UA Negative Negative - 160(16) ++++ mg/dL Spec Grav, UA 1.010 1 - 1.03 Blood, UA Negative Negative - 50 Alex/mcL pH, UA 7.0 5 - 9 Protein, UA Negative Negative - 2000(20) ++++ mg/dL Urobilinogen, UA 0.2 0.2 - 12 mg/dL Leukocytes, UA Negative Negative - 500+++ Jodi/mcL Nitrite, UA Negative Negative - Positive Urine 09/17/2024 10:3 7 AM EDT Result [facility] Theodore Campbell DO POINT OF CARE TEST ENTER/EDIT OR DERABLES Final Result documented in this encounter Visit Diagnoses Diagnosis 31 weeks gestation of ([facility]) Third trimester ([facility]) state, incidental Multigravida of advanced maternal age in third trimester ([facility]) Excessive growth affecting management of , antepartum, single or unspecified fetus ([facility]) documented in this encounter
--- OUTSIDE RECORDS SUMMARY | 2024-09-24 15:58 | XMS_ITS | Clinical Summary ---
Author Organization [facility] Address [address] [place] [address] Care Team Providers Care Clinical Documentation Nurse Name Role Phone Unavailable Primary Care Provider Unavailabl e Allergies Active Allergy Reactions Criticality Noted Date Comments Cefadroxil Hives 12/02/2022 Other Reaction(s): hives, Unknown Other Reaction(s): hives, rash Latex Itching 12/02/2022 Other Reaction(s): Itching Other Reaction(s): Hives Paroxetine 12/02/2022 Other Reaction(s): Unknown Medications [id number] ( 1 + IRON PO) Active Alcohol Swabs (Alcohol Prep Pad) 70 % padsIndications:Ges tational diabetes mellitus (GDM), antepartum, gestational diabetes method of control unspecified ([facility]HS-HCC),Elevated glucose tolerance test Apply 1 Pad topically Daily Use four times daily to check FSBS. 150 each 3 07/26/19 25 Active Blood Glucose Monitoring Suppl (D-Care Glucometer) w/Device kitIndications:Gest ational diabetes mellitus (GDM), antepartum, gestational diabetes method of control unspecified (HHS-HCC),Elevated glucose tolerance test 1 kit Daily Use four times daily to check FSBS. In the morning prior to breakfast & 1 hour after each meal for a total of 4times daily. 1 kit 07/26/19 25 026 Active iron polysaccharides (ProFe) 391.3 (180 Fe) MG capsuleIndications: Low iron Take 1 capsule (391.3 mg) by mouth Daily 30 capsule 6 08/29/19 025 Active Lancets Ultra Thin miscIndications:Ges tational diabetes mellitus (GDM), antepartum, gestational diabetes method of control unspecified ([facility]),Elevated glucose tolerance test 1 each by In Vitro route Daily Use to check FSBS four times daily 150 each 3 07/26/19 025 Glucose Blood (Blood Glucose Test) stripIndications:Ge stational diabetes mellitus (GDM), antepartum, gestational diabetes method of control unspecified ([facility]),Elevated glucose tolerance test 1 strip by In Vitro route Daily Use in the morning prior to breakfast, 1 hour after each meal for a total of 4times daily. 150 strip 3 07/26/19 025 Active Problems Problem Noted Date Diagnosed Date 31 weeks gestation of ([facility]) 2024 Third trimester ([facility]) 09/17/2024 Multigravida of advanced mat ernal age in third trimester ([facility]) 09/17/2024 Anovulation 12/02/2022 DUB (dysfunctional uterine bleeding) 12/02/2022 Menstrual disorder 12/02/2022 Missed menses 12/02/2022 Yeast infection 12/02/2022 Estimated Date of Delivery Comme nts Yes 11/17/2024 Based on last me nstrual period of 02/11/2024 Resolved Problems Problem Noted Date Diagnosed Date Resolved Date Bleeding in early ([facility]) 12/02/2022 12/02/2022 Encounters Date Type Department Care Team Description 09/23/[address] [facility] [address] [place] [address] Theodore Campbell DO 09/17/2024 10:20 AM EDT [facility] [place] [address] Theodore Campbell DO 31 weeks gestation of ([facility]); Third trimester ([facility]); Multigravida of advanced maternal age in third trimester ([facility]); Excessive growth affecting management of , antepartum, single or unspecified fetus ([facility]) 09/17/2024 9:30 AM EDT Ancillary Procedure [facility] [address] [place] [address] Size of fetus inconsistent with dates in second trimester ([facility]) 09/16/2024 Travel 09/14/2024 Travel 08/28/2024 Telephone [facility] [address] [place] [address] Vicki Aguirre LPN 08/27/2024 8:50 AM EDT Routine [facility] [address] [place] [address] Flower Joyce PA Size of fetus inconsistent with dates in second trimester ([facility]) (Primary Dx); Third trimester ([facility]); 28 weeks gestation of ([facility]) 08/27/2024 Clinisync Result Encounter [facility] External Department Unsolicited Flower Joyce PA 08/27/2024 Bamboo flowsheet [facility] [address] [place] [address] Flower Joyce PA 08/26/2024 Travel 08/20/2024 Abstract [facility] [address] [place] [address] Shanna Bailon MA 08/01/2024 9:10 AM EDT Routine [facility] [address] [place] [address] Theodore Campbell DO Second trimester ([facility]); 24 weeks gestation of ([facility]); Multigravida of advanced maternal age in second trimester ([facility]) 08/01/2024 8:30 AM EDT Ancillary Procedure [facility] [address] [place] [address] Encounter for follow-up ultrasound of anatomy ([facility]) 08/01/2024 Telephone [facility] [address] [place] [address] Daniela Candelaria LPN 07/31/2024 Travel 07/25/[address] [facility] [address] [facility] [place] [address] Theodore Campbell, DO 07/25/[address] [facility] [address] [address] Theodore Campbell, DO 07/08/[address] [facility] [address] [place] [address] [place] [phone] Vicki Aguirre LPN 07/01/2024 9:40 AM EDT Routine [facility] [address] [place] [address] Flower Joyce PA Second trimester ([facility]); 20 weeks gestation of ([facility]) 07/01/2024 8:30 AM EDT Ancillary Procedure [facility] [address] [place] [address] 06/30/2024 Travel 06/28/2024 Travel from Last 3 Months Family History Medical History Relation Name Comments Allergies Brother seasonal Cerebral palsy Brother Alzheimer's disease Maternal Grandfather Colon cancer Maternal Grandfather Diabetes Maternal Grandfather Emphysema Maternal Grandmother Nephrolithiasis Maternal Grandmother Hypertension Mother Nephrolithiasis Mother varicose veins Mother Relation Name Status Comments Brother Maternal Grandfather Maternal Grandmother Mother Social History Tobacco Use Types Packs/Day Years Used Date Smoking Tobacco: Never Tobacco Cessation:Counseling Given: Not Answered Alcohol Use Standard Drinks/Week Comments Never 0 [...] Start Date Job End Date Works at [employer] Not on file Not on file Not on file Last Filed Vital Signs Vital Sign Reading Time Taken Comments Blood Pressure 112/70 09/17/2024 10:49 AM EDT Pulse - - Temperature - - Respiratory Rate - - Oxygen Saturation - - Inhaled Oxygen Concentration - - Weight 127 kg (280 lb 1.9 oz) 09/17/2024 10:49 A M EDT Height 174 cm (5' 8.5 ) 08/22/2022 12:00 PM EDT Body Mass Index 41.97 08/22/2022 12:00 PM EDT Plan of Treatment Upcoming Encounters Date Type Department Care Team (Late st Contact Info) Description 09/30/2024 3:30 PM EDT Routine [facility] [address] [facility] [place] [address] Flower Joyce PA [address] [facility] [place] [address] Procedures Procedure Name Priority Date/Time Associated Diagnosis Comments POCT URINALYSIS DIPSTICK Routine 09/17/2024 10:37 AM EDT 31 weeks gestation of ([facility]) Third trimester ([facility]) Multigravida of advanced maternal age in third trimester ([facility]) US OB FOLLOW UP TRANSABDOMINAL APPROACH Routine 09/17/2024 9:58 AM EDT Size of fetus inconsistent with dates in second trimester ([facility]) ALL CBC WITH AUTO DIFF Routine 10:10 AM EDT MLR HEMOGLOBIN A1C Routine 08/27/2024 10 :10 AM EDT POCT URINALYSIS DIPSTICK Routine 08/27/2024 9:26 AM EDT Third trimester ([facility]) 28 weeks gestation of ([facility]) US OB LIMITED 1+ FETUSES Routine 08/01/2024 9:02 AM EDT Encounter for follow-up ultrasound of anatomy ([facility]) POCT URINALYSIS DIPSTICK Routine 07/01/2024 10:05 AM EDT Second trimester ([facility]) US OB 14+ WEEKS ANATOMY SCAN Routine 07/01/2024 9:34 AM EDT Screening, , for anatomic survey ([facility]) from Last 3 Months Results * POCT urinalysis dipstick manually resulted (09/17/2024 10:37 AM EDT) Only the most recent of3 resultswithin the time period is included. Color, UA Yellow Clarity, UA Clear Glucose, [...] Positive Urine 09/17/2024 10:3 7 AM EDT [facility] Adrian DO POINT OF CARE TEST ENTER/EDIT OR DERABLES Final Result * US OB follow up transabdominal approach [...] II, MD, PHD at 18-Sep-2024 08:23:43 AM [facility] Procedure Note Meghann Knight MD [...] MEGHANN KNIGHT II, MD, PHD 08:23:43 AM [facility] us Flower DE [place] PAZ IMG OB US PROCEDURES Final Resul t * MLR HEMOGLOBIN A1C (08/27/2024 10:10 AM EDT) Pathologist [facility] GLYCOHEMOGLOBIN A1C 5.6 4.5 - 6.2 % TB Comment: ADA RECOMMENDED LIMIT 4.0 - 6.0 ADA THERAPEUTIC TARGET < 7.0 ACTION SUGGESTED > 7.0 ESTIMATED AVERAGE GLUCOSE 114 mg/dL TB 08/27/2024 10:1 0 AM EDT 08/27/2024 10:21 AM EDT Narrative [facility] - 08/27/2024 10:36 AM EDT us Flower DE [place] [facility]Z [facility] Final Result [facility] * (ABNORMAL) ALL CBC WITH AUTO DIFF (08/27/2024 10:10 AM EDT) [facility] TB WBC 10.0 4.0 - 11.0 10 3/uL TBH TB RBC 3.63(L) 4.20 - 5.40 10 6/uL TBH TBH HGB 11.0(L) 12.0 - 16.0 g/dL TB TB HCT 32.9(L) 36.0 - 48.0 % TBH TB MCV 90.6 81.0 - 99.0 fL TBH TBH MCH 30.3 26.7 - 34.0 pg TBH TBH MCHC 33.4 29.9 - 35.2 g/dL TB TB RDW 13.9 11.0 - 15.0 % TBH TBH PLT 287 150 - 450 10 3/uL TBH TBH MPV 9.6 9.5 - 13.5 fL TBH NEUTROPHILS PERCENT AUTO 71.7 43.0 - 75.0 % TBH LYMPHOCYTES PERCENT AUTO 19.2(L) 20.5 - 60.0 % TBH MONOCYTES PERCENT AUTO 6.4 1.7 - 12.0 % TBH TBH EO % 1.5 0.9 - 7.0 % TBH BASOPHILS PERCENT AUTO 0.4 0.2 - 2.0 % TBH IMMATURE GRANULOCYTES PCT AUTO 0.8(H) 0.0 - 0.5 % TBH NEUTROPHILS ABSOLUTE AUTO 7.2(H) 1.4 - 6.5 10 3/uL TBH LYMPHOCYTES ABSOLUTE AUTO 1.9 1.2 - 3.8 10 3/uL TBH MONOCYTES ABSOLUTE AUTO 0.6 0.3 - 0.8 10 3/uL TBH TBH EO # 0.2 0.0 - 0.7 10 3/uL TBH BASOPHILS ABSOLUTE AUTO 0.0 0.0 - 0.1 10 3/uL TBH IMMATURE GRANULOCYTES ABS AUTO 0.08(H) 0.00 - 0.03 10 3/uL TBH 08/27/2024 10:1 0 AM EDT 08/27/2024 10:21 AM EDT Narrative [facility] - 08/27/2024 10:44 AM EDT Flower VITALE Final Result [facility] TB * US OB limited 1+ fetuses (08/01/2024 9:02 AM EDT) Anatomical Region Laterality Modality Body Ultrasound 08/01/2024 11:2 1 PM EDT Narrative 08/01/2024 11:21 PM EDT EXAM: US OB LIMITED 1+ FETUSES HISTORY: [...] II, MD, PHD at 01-Aug-2024 11:20:36 PM [facility] Procedure Note Meghann Knight MD - 08/01/2024 EXAM: US OB LIMITED 1+ FETUSES HISTORY: Incomplete anatomy. A1. KAY 11/17/2024. COMPARISON: U/S Ob 07/01/2024, 04/12/2024. TECHNIQUE: Two-dimensional transabdominal grayscale ultrasound imaging ofthe pelvis was performed. FINDINGS: This is a technically difficult limited study due to maternal bodyhabitus. Gestation: Single Presentation: Cephalic Cardiac Activity: 168 beats per minute ANATOMY Four Chamber Heart: Not visualized LVOT: Unremarkable RVOT: Not visualized Nose/Lips: Not visualized IMPRESSION: 1. Single, live intrauterine gestation 24 weeks, 4 days by LMP. 2. Four-chamber heart, RVOT and nose/lips are again not visualized. LVOTis unremarkable. Interpreted by: Electronically signed by MEGAHNN KNIGHT II, MD, PHD [id number] 11:20:36 PM [facility] us Theodore Adrian DO IMG OB US PROCEDURES Final Resul t * US OB 14+ weeks anatomy scan (07/01/2024 9:34 AM EDT) Anatomical Region Laterality Modality Body Ultrasound 07/02/2024 9:57 AM EDT Narrative 07/02/2024 9:57 AM EDT EXAM: US OB 14+ WEEKS ANATOMY SCAN [...] II, MD, PHD at 02-Jul-2024 09:56:12 AM [facility] Procedure Note Meghann Knight MD - 07/02/2024 EXAM: US OB 14+ WEEKS ANATOMY SCAN HISTORY: anatomy. COMPARISON: OB ultrasound 04/12/2024. TECHNIQUE: Two-dimensional transabdominal grayscale ultrasound imaging ofthe pelvis was performed. FINDINGS: Gestation: Single Presentation: Breech Cardiac Activity: 164 beats per minute Placental Location: Posterior with no sonographic abnormalitiesidentified. Distance from Placental Tip to Cervix: 4.6 [...] is 20 weeks 0 days (+/- 10 daysgestation). Estimated Weight: 351 grams, +/- 53 grams [...] gestation 20 weeks, 1 days by LMP. Today'sultrasound measurements correlate with a gestational age of 20 weeks 0days. Estimated weight is 351 grams, +/- 53 grams ( 0 lb 12 oz)which correlates to 60 %. KAY is 11/18/2024. 2. Unremarkable anatomy with limited visualization of thefour-chamber heart, outflow tracts and nose/lips. A short-term follow-upultrasound is recommended. Electronically Signed:Electronically signed by MEGHANN KNIGHT II, MD, PHDat 02-Jul-2024 09:56:12 AM [facility] us Theodore Adrian DO IMG OB US PROCEDURES Final Resul t from Last 3 Months Insurance BCBS
--- OUTSIDE RECORDS SUMMARY | 2024-09-24 15:58 | XMS_ITS | Encounter Summary ---
Author Organization [facility] Address [address] [facility] [place] [address] Care Team Providers Care Sidewalk Inspector Name Role Phone Unavailable Primary Care Provider Unavailabl e Encounter Details Date Type Department Care Team (Late st Contact Info) Description 04/15/2024 Abstract [facility] [address] [place] [address] Theodore Campbell, [address] Aisha Dela Cruz, [facility] Social History Tobacco Use Types Packs/Day Years [...] Start Date Job End Date Works at [employer] Not on file Not on file Not on file documented as of this encounter Plan of Treatment Upcoming Encounters Date Type Department Care Team (Late st Contact Info) Description 09/30/2024 3:30 PM EDT Routine [facility] [address] [place] [address] Flower Joyce PA [address] [place] [address] [place] [address] documented as of this encounter Visit Diagnoses Not on filedocumented in this encounter
--- OUTSIDE RECORDS SUMMARY | 2024-09-24 15:58 | XMS_ITS | Encounter Summary ---
Author Organization [facility] Address [address] [place] [address] Care Team Providers Care Billboard Installer Name Role Phone Unavailable Primary Care Provider Unavailabl e Encounter Details Date Type Department Care Team (Latest Contact Info) Description 09/14/2024 Travel Social History Tobacco Use Types Packs/Day Years [...] Start Date Job End Date Works at [employer] Not on file Not on file Not on file documented as of this encounter Plan of Treatment Upcoming Encounters Date Type Department Care Team (Late st Contact Info) Description 09/30/2024 3:30 PM EDT Routine [facility] [address] [facility] [address] Flower Joyce PA [address] [facility] [place] [address] documented as of this encounter Visit Diagnoses Not on filedocumented in this encounter
--- OUTSIDE RECORDS SUMMARY | 2024-09-24 15:58 | XMS_ITS | Encounter Summary ---
Author Organization [facility] tem Address [id number] [address] [place] [address] Care Team Providers Care Color Checker Name Role Phone Unavailable Primary Care Provider Unavailabl e Encounter Details Date Type Department Care Team (Late st Contact Info) Description 08/07/2024 Orders Only Maternal- Medicine at [facility] [address] [facility] [place] [id number] Ref Prov, [place] [address] Social History Tobacco Use Types Packs/Day Years Used Date Smoking Tobacco: Never Smokeless Tobacco: Never Alcohol Use Standard Drinks/Week Comments Never 0 (1 standard drink = 0.6 oz pur e alcohol) Estimated Date of Delivery Comme nts Yes 11/17/2024 Based on last me nstrual period of 02/11/2024 Sex and Gender Information Value Date Recorded Sex Assigned at Not on file Legal Sex Female 2:32 PM EDT Gender Identity Not on file Sexual Orientation Not on file documented as of this encounter Plan of Treatment Not on file documented as of this encounter Procedures Procedure Name Priority Date/Time Associated Diagnosis Comments ULTRASOUND OFFICE Routine 08/01/2024 10:19 AM EDT ULTRASOUND OFFICE Routine 07/01/2024 11:47 AM EDT ULTRASOUND OFFICE Routine 04/12/2024 10:17 AM EST documented in this encounter Results * Ultrasound - Office (08/01/2024 10:19 AM EDT) Anatomical Region Laterality Modality AMB Ultrasound us Not In System Ref Prov IMG US ORDERABLES Final R esult * Ultrasound - Office (07/01/2024 11:47 AM EDT) Anatomical Region Laterality Modality AMB Ultrasound us Not In System Ref Prov IMG US ORDERABLES Final R esult * Ultrasound - Office (04/12/2024 10:17 AM EST) Anatomical Region Laterality Modality AMB Ultrasound us Not In System Ref Prov IMG US ORDERABLES Final R esult documented in this encounter Visit Diagnoses Not on filedocumented in this encounter
--- OUTSIDE RECORDS SUMMARY | 2024-09-24 15:58 | XMS_ITS | Encounter Summary ---
Author Organization [facility] Address [address] [place] [address] Care Team Providers Care Metal Sprayer Name Role Phone Unavailable Primary Care Provider Unavailabl e Encounter Details Date Type Department Care Team (Latest Contact Info) Description 09/16/2024 Travel Social History Tobacco Use Types Packs/Day [...] Start Date Job End Date Works at [employer] Not on file Not on file Not on file documented as of this encounter Plan of Treatment Upcoming Encounters Date Type Department Care Team (Late st Contact Info) Description 09/30/2024 3:30 PM EDT Routine [facility] [address] [facility] [place] [address] Flower Joyce PA [address] [facility] [place] [address] documented as of this encounter Visit Diagnoses Not on filedocumented in this encounter
--- OUTSIDE RECORDS SUMMARY | 2024-09-24 15:59 | XMS_ITS | Encounter Summary ---
Author Organization [facility] Address [address] [place] [address] Care Team Providers Care Receiving Teller Name Role Phone Unavailable Primary Care Provider Unavailabl e Encounter Details Date Type Department Care Team (Late st Contact Info) Description 12/01/2022 Abstract [facility] [address] [facility] [address] [place] [phone] Toi Maradiaga, DO [address] [facility] [address] [place] [address] Social History Tobacco Use Types Packs/Day Years Used Date Smoking Tobacco: Never Tobacco Cessation:Counseling Given: Not Answered Alcohol Use Standard Drinks/Week Comments Never 0 (1 standard drink = 0.6 oz pur e alcohol) Caffeine intake: none Education Answer Date Recorded What is the highest level of school you have completed or the highest degree you have received? Some college, no degree 12/01/2022 Comments Unknown Sex and Gender Information Value Date Recorded Sex Assigned at Not on file Legal Sex Female 6:44 PM EDT Gender Identity Not on file Sexual Orientation Not on file Occupation Industry Job Start Date Job End Date Works at [employer] Not on file Not on file Not on file documented as of this encounter Plan of Treatment Upcoming Encounters Date Type Department Care Team (Late st Contact Info) Description 09/30/2024 3:30 PM EDT Routine [facility] [address] [place] [id number] Flower Joyce PA [address] [place] [address] documented as of this encounter Visit Diagnoses Not on filedocumented in this encounter
--- OUTSIDE RECORDS SUMMARY | 2024-09-24 15:59 | XMS_ITS | Encounter Summary ---
Author Organization [facility] Address [address] [facility] [place] [address] Care Team Providers Care Strategic Manager Name Role Phone Unavailable Primary Care Provider Unavailabl e Encounter Details Date Type Department Care Team (Late st Contact Info) Description 08/20/2024 Abstract [facility] OB [address] [place] [address] Shanna Bailon MA Social History Tobacco Use Types Packs/Day Years [...] Start Date Job End Date Works at [employer] Not on file Not on file Not on file documented as of this encounter Plan of Treatment Upcoming Encounters Date Type Department Care Team (Late st Contact Info) Description 09/30/2024 3:30 PM EDT Routine [facility] OB [address] [place] [address] Flower Joyce PA [address] [place] [address] documented as of this encounter Visit Diagnoses Not on filedocumented in this encounter
--- OUTSIDE RECORDS SUMMARY | 2024-09-24 15:59 | XMS_ITS | Clinical Summary ---
Author Organization [facility] tem Address [id number] [address] [place] [address] Care Team Providers Care Data Integration Architect Name Role Phone Unavailable Primary Care Provider Unavailabl e Allergies Active Allergy Reactions Criticality Noted Date Comments Cefadroxil Hives 08/07/2024 Latex Itching 08/07/2024 Paroxetine 08/07/2024 Medications vit,jorge alberto 74/iron/folic ( VITAMIN 1+1 ORAL) Take 1 tablet by mouth in the morning. Active progesterone (PROMETRIUM) 200 mg capsule Take 1 capsule (200 mg total) by mouth in the morning. Active Encounters Date Type Department Care Team Description 08/08/2024 Travel 08/07/2024 Orders Only Maternal- Medicine at [facility] [address] [place] [address] Ref Prov, Not In System 08/07/2024 Abstract Maternal- Medicine at [facility] [address] [place] [address] External, Scanning Provider from Last 3 Months Family History Medical History Relation Name Comments Cerebral palsy Brother Alzheimer's disease Maternal Grandfather Colon cancer Maternal Grandfather Diabetes Maternal Grandfather Emphysema Maternal Grandmother Nephrolithiasis Maternal Grandmother Hypertension Mother Relation Name Status Comments Brother Maternal Grandfather Maternal Grandmother Mother Social History Tobacco Use Types Packs/Day Years Used Date Smoking Tobacco: Never Smokeless Tobacco: Never Tobacco Cessation:Counseling Given: Not Answered [...] on file Sexual Orientation Not on file Plan of Treatment Health Maintenance Due Date Last Done Comments Depression Screening 2000 Tobacco Screening 2000 Adult BMI Screening 2006 DTaP,Tdap and Td Vaccines (1 - Tdap) 11/29/2007 Pap Smear 2009 Influenza Vaccine 12/09/2024 Medical Devices Not on file Procedures Procedure Name Priority Date/Time Associated Diagnosis Comments US MFM COMPREHENSIVE ANATOMIC SURVEY Routine 08/08/2024 9:49 AM EDT Encounter for anatomic survey ULTRASOUND OFFICE Routine 08/01/2024 10: 19 AM EDT ULTRASOUND OFFICE Routine 07/01/2024 11: 47 AM EDT from Last 3 Months Results * US MFM COMPREHENSIVE ANATOMIC SURVEY (08/08/2024 9:49 AM EDT) Anatomical Region Laterality Modality OB-PAYROLL DIRECTOR Ultrasound 08/08/2024 8:19 AM EDT Narrative 08/08/2024 10:17 AM EDT NAME: SHIRA WARD : 1990 SEX: F Accession Number: [id number] ORDERING PHYSICIAN: AQUILES CAMPBELL REFERRING PHYSICIAN: AQUILES CAMPBELL Coding ----- --------- Procedures [id number]: Ultrasound, uterus, real time with image documentation, and maternal evaluation plus detailed anatomic examination, transabdominal approach;single or first gestation Indication ----- --------- Screening for Anatomic Survey , AMA- Supervision of elderly, Previous x2, Obesity in History ----- --------- OB History 4. Para 2 [id number] Maternal Assessment ----- --------- Physical Exam Height 173 cm, 5 ft 8 in. Weight 125 kg, 276 lb. Initial weight 122 kg, 269 lb. BMI 41.97 kg/m . Initial BMI 40.90 kg/m . Weight gain 3 kg, 7 lb Method ----- --------- Transabdominal ultrasound examination ----- --------- Treviño . Number of fetuses: 1 Dating ----- --------- LMP on: 02/11/2024 GA by LMP 25 w + 4 d KAY by LMP: 11/17/2024 Previous Ultrasound on: 04/11/2024 Type of prior assessment: CRL U/S measurement at prior assessment date 18.0 mm GA by previous U/S 25 w + 2 d KAY by previous Ultrasound: 11/19/2024 Ultrasound examination on: 08/08/2024 GA by U/S based upon: AC, BPD, Femur, HC GA by U/S 25 w + 6 d KAY by U/S: 11/15/2024 Assigned: based on the LMP, selected on 08/08/2024 Assigned GA 25 w + 4 d Assigned KAY: 11/17/2024 General Evaluation ----- --------- Cardiac activity Present. FHR 149 bpm. Presentation: variable Placenta: Placental site: posterior, away from cervical os Umbilical cord: Cord vessels: 3 vessel cord, normal insertion. Insertion site: normal insertion Amniotic fluid: Amount of AF: normal amount. MVP 5.1 cm Biometry ----- --------- Standard BPD 60.2 mm 24w 4d 11% Hadlock OFD 82.6 mm 26w 6d 84% Kiki HC 229.1 mm 25w 0d 11% Hadlock Cerebellum tr 28.5 mm 25w 1d 37% Hill AC 226.0 mm 27w 0d 83% Hadlock Femur 49.8 mm 26w 6d 74% Hadlock Humerus 45.4 mm 26w 6d 82% Kiki HC / AC 1.01 EFW 954 g 80% Hadlock EFW (lb) 2 lb EFW (oz) 2 oz EFW by: Hadlock ([id number]) Extended Tibia 43.3 mm 26w 5d 81% Kiki Rocket Motor Mechanic 3.6 mm CM 4.0 mm 3% Nicolaides Inner IOD 21.2 mm Outer IOD 41.8 mm Head / Face / Neck Cephalic index 0.73 5% Nicolaides Nasal bone: present Extremities / Bony Struc FL / BPD 0.83 FL / HC 0.22 FL / AC 0.22 Other Structures FHR 149 bpm Anatomy ----- --------- The following structures appear normal: Head/Neck: Cranium. Lateral ventricles. Choroid plexus. Midline falx. Cavum septi pellucidi. Cerebellum. Cisterna magna. Parenchyma. Vermis. Neck. Face: Lips. Profile. Nose. Nasal bone. Maxilla. Mandible. Orbits. Heart/Thorax: 4-chamber view. RVOT view. LVOT view. 3-vessel view. 0-orxawu-mragimh view. Situs. Aortic arch view. Bicaval view. Ductal arch view. Interventricular septum. Great vessels. Cardiac position. Cardiac axis. Cardiac size. Cardiac rhythm. Right lung. Left lung. Diaphragm. Abdomen: Abdom. wall. Cord insertion. Stomach. Kidneys. Bladder. Small bowel. Large bowel. Right renal artery. Left renal artery. Genitals. Spine: Cervical spine. Thoracic spine. Lumbar spine. Sacral spine. Extremities/Skeleton: Right upper arm. Right forearm. Right hand. Left upper arm. Left forearm. Left hand. Right upper leg. Right lower leg. Right foot. Left upper leg. Left lower leg. Left foot. Maternal Structures ----- --------- Uterus Visualized Cervix Visualized Approach - Transabdominal Right Ovary Not visualized Left Ovary Not visualized Cul de Sac Suboptimal Impression ----- --------- Single viable intrauterine consistent with 25w 4d with an KAY of 11/17/2024. anatomic survey did not reveal sonographic evidence of any gross structural abnormalities. Recommendations ----- --------- Subsequent follow up or other follow up as clinically determined by primary OB provider unless otherwise specified by MFM. Results forwarded to ordering provider so they can follow up with the patient as necessary. Procedure Note Jesus Villagomez MD - 08/08/2024 NAME: SHIRA WARD : 1990 SEX: F Accession Number: [id number] ORDERING PHYSICIAN: AQUILES CAMPBELL REFERRING PHYSICIAN: AQUILES CAMPBELL Coding ----- --------- Procedures [id number]: Ultrasound, uterus, real time with imagedocumentation, and maternal evaluation plus detailed anatomic examination, transabdominalapproach;single or first gestation Indication ----- --------- Screening for Anatomic Survey , AMA- Supervision of elderly, PreviousC-Section x2, Obesity in History ----- --------- OB History 4. Para 2 [id number] Maternal Assessment ----- --------- Physical Exam Height 173 cm, 5 ft 8 in. Weight 125 kg, 276 lb. Initialweight 122 kg, 269 lb. BMI 41.97 kg/m . Initial BMI 40.90 kg/m . Weight gain 3 kg, 7 lb Method ----- --------- Transabdominal ultrasound examination ----- --------- Treviño . Number of fetuses: 1 Dating ----- --------- LMP on: 02/11/2024 GA by LMP 25 w + 4 d KAY by LMP: 11/17/2024 Previous Ultrasound on: 04/11/2024 Type of prior assessment: CRL U/S measurement at prior assessment date 18.0 mm GA by previous U/S 25 w + 2 d KAY by previous Ultrasound: 11/19/2024 Ultrasound examination on: 08/08/2024 GA by U/S based upon: AC, BPD, Femur, HC GA by U/S 25 w + 6 d KAY by U/S: 11/15/2024 Assigned: based on the LMP, selected on 08/08/2024 Assigned GA 25 w + 4 d Assigned KAY: 11/17/2024 General Evaluation ----- --------- Cardiac activity Present. FHR 149 bpm. Presentation: variable Placenta: Placental site: posterior, away from cervical os Umbilical cord: Cord vessels: 3 vessel cord, normal insertion. Insertionsite: normal insertion Amniotic fluid: Amount of AF: normal amount. MVP 5.1 cm Biometry ----- --------- Standard BPD 60.2 mm 24w 4d 11% Hadlock OFD 82.6 mm 26w 6d 84% Kiki HC 229.1 mm 25w 0d 11% Hadlock Cerebellum tr 28.5 mm 25w 1d 37% Hill AC 226.0 mm 27w 0d 83% Hadlock Femur 49.8 mm 26w 6d 74% Hadlock Humerus 45.4 mm 26w 6d 82% Kiki HC / AC 1.01 EFW 954 g 80% Hadlock EFW (lb) 2 lb EFW (oz) 2 oz EFW by: Debbielock ([id number]) Extended Tibia 43.3 mm 26w 5d 81% Kiki Rocket Motor Mechanic 3.6 mm CM 4.0 mm 3% Nicolaides Inner IOD 21.2 mm Outer IOD 41.8 mm Head / Face / Neck Cephalic index 0.73 5% Nicolaides Nasal bone: present Extremities / Bony Struc FL / BPD 0.83 FL / HC 0.22 FL / AC 0.22 Other Structures FHR 149 bpm Anatomy ----- --------- The following structures appear normal: Head/Neck: Cranium. Lateral ventricles. Choroid plexus. Midline falx.Cavum septi pellucidi. Cerebellum. Cisterna magna. Parenchyma. Vermis. Neck. Face: Lips. Profile. Nose. Nasal bone. Maxilla. Mandible. Orbits. Heart/Thorax: 4-chamber view. RVOT view. LVOT view. 3-vessel view.6-jpsknk-uxgvmyy view. Situs. Aortic arch view. Bicaval view. Ductal arch view. Interventricular septum. Greatvessels. Cardiac position. Cardiac axis. Cardiac size. Cardiac rhythm. Right lung. Left lung. Diaphragm. Abdomen: Abdom. wall. Cord insertion. Stomach. Kidneys. Bladder. Smallbowel. Large bowel. Right renal artery. Left renal artery. Genitals. Spine: Cervical spine. Thoracic spine. Lumbar spine. Sacral spine. Extremities/Skeleton: Right upper arm. Right forearm. Right hand. Leftupper arm. Left forearm. Left hand. Right upper leg. Right lower leg. Right foot. Left upper leg. Left lower leg. Leftfoot. Maternal Structures ----- --------- Uterus Visualized Cervix Visualized Approach - Transabdominal Right Ovary Not visualized Left Ovary Not visualized Cul de Sac Suboptimal Impression ----- --------- Single viable intrauterine consistent with 25w 4d with an KAY of11/17/2024. anatomic survey did not reveal sonographic evidence of any grossstructural abnormalities. Recommendations ----- --------- Subsequent follow up or other follow up as clinically determined byprimary OB provider unless otherwise specified by M. Results forwarded to ordering provider so they can follow up with thepatient as necessary. us Aquiles Campbell DO IMG US ORDERABLES Final Result * Ultrasound - Office (08/01/2024 10:19 AM EDT) Only the most recent of2 resultswithin the time period is included. Anatomical Region Laterality Modality AMB Ultrasound us Not In System Ref Prov IMG US ORDERABLES Final R esult from Last 3 Months Insurance [facility]
--- OUTSIDE RECORDS SUMMARY | 2024-09-24 15:59 | XMS_ITS | Encounter Summary ---
Author Organization [facility] Address [address] [facility] [place] [address] Care Team Providers Care Hand Salter Name Role Phone Unavailable Primary Care Provider Unavailabl e Encounter Details Date Type Department Care Team (Late st Contact Info) Description 07/25/2024 Abstract [facility] [address] [place] [address] Theodore Campbell, [address] [place] [address] Aisha Dela Cruz, [facility] Social History Tobacco Use Types Packs/Day [...] Start Date Job End Date Works at [employer] Not on file Not on file Not on file documented as of this encounter Plan of Treatment Upcoming Encounters Date Type Department Care Team (Late st Contact Info) Description 09/30/2024 3:30 PM EDT Routine [facility] OB [address] [place] [address] Flower Joyce PA [address] [place] [address] [place] [address] documented as of this encounter Visit Diagnoses Not on filedocumented in this encounter
--- OUTSIDE RECORDS SUMMARY | 2024-09-24 15:59 | XMS_ITS | Encounter Summary ---
Author Organization [facility] Address [address] [facility] [place] [address] Care Team Providers Care Wet End Operator Name Role Phone Unavailable Primary Care Provider Unavailabl e Encounter Details Date Type Department Care Team (Late st Contact Info) Description 09/23/[address] [facility] [address] [place] [address] Theodore Campbell, [address] [place] [address] Aisha Dela Cruz, [facility] Social History Tobacco Use Types Packs/Day Years [...] Start Date Job End Date Works at [employer] Not on file Not on file Not on file documented as of this encounter Plan of Treatment Upcoming Encounters Date Type Department Care Team (Late st Contact Info) Description 09/30/2024 3:30 PM EDT Routine [facility] OB [address] [place] [address] Flower Joyce PA [address] [place] [address] [place] [address] documented as of this encounter Visit Diagnoses Not on filedocumented in this encounter
--- OUTSIDE RECORDS SUMMARY | 2024-09-24 15:59 | XMS_ITS | Encounter Summary ---
Author Organization [facility] Address [address] [facility] [place] [address] Care Team Providers Care Instrument Engineer Name Role Phone Unavailable Primary Care Provider Unavailabl e Encounter Details Date Type Department Care Team (Late st Contact Info) Description 02/29/2024 Orders Only [facility] [address] [place] [address] Priscila Joseph MA [address] [facility] [place] [address] Social History Tobacco Use Types Packs/Day Years Used Date Smoking Tobacco: Never Alcohol Use Standard Drinks/Week Comments Never 0 (1 standard drink = 0.6 oz pur e alcohol) Caffeine intake: none Education Answer Date Recorded What is the highest level of school you have completed or the highest degree you have received? Some college, no degree 12/01/2022 Comments No Sex and Gender Information Value Date Recorded Sex Assigned at Not on file Legal Sex Female 6:44 PM EDT Gender Identity Not on file Sexual Orientation Not on file Occupation Industry Job Start Date Job End Date Works at [employer] Not on file Not on file Not on file documented as of this encounter Plan of Treatment Upcoming Encounters Date Type Department Care Team (Late st Contact Info) Description 09/30/2024 3:30 PM EDT Routine [facility] [address] [facility] [address] Flower Joyce PA [address] [facility] [facility] [place] [address] documented as of this encounter Procedures Procedure Name Priority Date/Time Associated Diagnosis Comments PAP SMEAR Routine 02/15/2024 12:00 AM EST documented in this encounter Results * Pap Smear (02/15/2024 12:00 AM EST) Swab Cervical swab / Unknown [facility] ORDERABLES Final Re sult EXTERNAL LAB documented in this encounter Visit Diagnoses Not on filedocumented in this encounter
--- NOTE | 2024-09-24 16:01 | US_ITS ---
[facility] [place] [id number] Patient Name: ED SILVA MRN: [facility]:[id number] date: 1990 Sex: F Assigned Patient Location: US Current Patient Location: Accession/Order Number: [id number] Exam Date: 09/25/2024 07:56 Report Date: 09/25/2024 07:58 At the request of: AQUILES CLEVELAND DO Procedure: US OB BPP w non-stress Ultrasound biophysical profile HISTORY: Multigravida. Advanced maternal age. Adequate breathing movement, gross body movement, tone and amniotic fluid volume for total score of 8 out of 8. The amniotic fluid index is 13.5cm within normal limits. The heart rate 135 bpm. US/US OB BPP w non-stress IMPRESSION: Adequate ultrasound biophysical profile Impression dictated by: Manuel Swartz M.D. 09/25/2024 7:58 AM Dictation Location: [facility] Electronically authenticated by: [id number] Y Date: 09/25/2024 07:58
[2024-09-24 16:06] VITALS: BP 113/63; PULSE 86
== END 2024-09-24 17:10 | disposition home or self-care (01) ==
LOC: US 15:56 → FBC 15:59
PROVIDERS: Visit Provider Obstetrics & Gynecology
DX: O09.523 Supervision of elderly multigravida, third trimester (principal); Z3A.32 32 weeks gestation of pregnancy
CPT/HCPCS: 76818

== ENCOUNTER 2024-09-27 17:03 | Outpatient (OUT) | payer BC, SELFPAY ==
[2024-09-27 17:08] VITALS: BP 117/70; PULSE 89
--- OUTSIDE RECORDS SUMMARY | 2024-09-27 17:08 | XMS_ITS | CCD ---
Author Organization [facility] Care Team Providers Care Shake Maker Name Role Phone ADRIAN ., DR KWAN [...] Admitting Unavailable Adrian DO, Aquiles Attending Provider Unavailable Primary Care Provider Unavailabl e ADRIAN, AQUILES R Referring Unavailable ADRIAN, AQUILES Attending Unavailable ADRIAN, AQUILES Attending Unavailable ADRIAN, AQUILES Referring Unavailable SHANNA, FLOWER Attending Unavailable ADRIAN, AQUILES Attending Unavailable SHANNA, FLOWER Attending Unavailable SHANNA, FLOWER Referring Unavailable ADRIAN, AQUILES Attending Unavailable ADRIAN, AQUILES Attending Unavailable SHANNA, FLOWER Attending Unavailable Allergies Allergy Classification Reported Allergen(s) Allergy Type Date of Onset Reaction(s) Facility (1 source) Cefadroxil Drug Allergy [facility] Repository (1 source) natural latex rubber Drug allergy (disorder) [facility] Repository (20 sources) Cefadroxil; Translations: [CEFADROXIL] Drug Allergy 3 Hives [facility] (20 sources) Latex; Translations: [LATEX] Allergy to substance 3 Itching [facility] (20 sources) PARoxetine; Translations: [PAROXETINE] Drug Allergy 3 [facility] (1 source) Latex Propensity to adverse reactions to drug 5 Itching [facility] Medications Current Medications Medication Drug Class(es) Dates Sig (Normalized) Sig (Original) Blood Glucose Monitoring Suppl (D-Care Glucometer) w/Device kit (9 sources) Start: 07-25-2024 End: 07-25-2025 Blood Glucose Monitoring Suppl (D-Care Glucometer) w/Device kit Indications: Gestational diabetes mellitus (GDM), antepartum, gestational diabetes method of control unspecified (HHS-HCC) , Elevated glucose tolerance test 1 kit Daily Use four times daily to check FSBS. In the morning prior to breakfast & 1 hour after each meal for a total of 4times daily. 1 kit 07/25/2024 07/25/2025 Active Start: 07-25-2024 End: 07-25-2025 Blood Glucose Monitoring Sup pl (D-Care Glucometer) w/Device kit Indications: Gestational diabetes [...] Active isopropyl alcohol 0.7 ml/ml medicated pad (9 sources) Start: Alcohol Swabs (Alcohol Prep Pad) 70 % pads Indications: Gestational diabetes mellitus (GDM), antepartum, gestational diabetes method of control unspecified ([facility]) , Elevated glucose tolerance test Apply 1 Pad topically Daily Use four times daily to check FSBS. 150 each 3 07/25/2024 Active letrozole 2.5 mg oral tablet (5 sources) Aromatase Inhibitor Start: End: take 1 tablet by mouth once daily letrozole (Femara) 2.5 MG chemo tablet Indications: Anovulation Take 1 tablet (2.5 mg total) by mouth Daily for 5 days. 5 tablet 02/12/2024 02/17/2024 Active polysaccharide iron complex 391 mg oral capsule (3 sources) Start: 025 End: take 1 capsule by mouth once daily iron polysaccharides (ProFe) 391.3 (180 Fe) MG capsule Indications: Low iron Take 1 capsule (391.3 mg) by mouth Daily 30 capsule 6 08/28/2024 09/27/2024 Active Ndtswxrh-Oxy-Go-FA ( 1 + IRON PO) (20 sources) Nvwnkbez-Qdg-Ow-FA ( 1 + IRON PO) Active vit,jorge [...] Class(es) Dates Sig (Normalized) Sig (Original) Vit-Fe Hmqjeka-LW-VLV ( VITAMIN/MIN +DHA PO) (20 sources) Start: 06-09-2023 End: 06-03-2024 Vit-Fe Ruupoup-YN-YON ( VITAMIN/MIN +DHA PO) 06/09/2023 06/03/2024 Discontinued (Other) Start: 06-09-2023 Vit-F e Elbdhaz-DQ-FZR ( VITAMIN/MIN +DHA PO) 06/09/2023 Active Progesterone [...] menstruation] Onset: 05-13-2022 Chronic Other complications of (9 sources) Multigravida of advanced maternal age; Translations: [Supervision of elderly multigravida, unspecified trimester] Onset: 09-17-2024 06-03-2024 Episodic Other complications of (2 sources) size does not accord with dates; Translations: [Uterine size-date discrepancy, second trimester] 08-27-2024 Episodic Other complications of (2 sources) Excessive growth affecting management of mother; Translations: [Maternal care for excessive growth, unspecified trimester, not applicable or unspecified] 09-17-2024 Episodic Other female genital disorders (20 sources) Abnormal uterine bleeding; Translations: [Other specified abnormal uterine and vaginal bleeding] Onset: 12-02-2022 12-02-2022 Chronic Other female genital disorders (2 sources) Vaginal discharge; Translations: [Other specified noninflammatory disorders of vagina] 06-03-2024 Episodic Other and delivery including normal (13 sources) First trimester ; Translations: [Encounter for supervision of normal , unspecified, first trimester] Onset: 09-17-2024 05-02-2024 Episodic Other screening for suspected conditions [...] [24 weeks gestation of ] 08-01-2024 Episodic Residual codes; unclassified (2 sources) Gestation period, 28 weeks; Translations: [28 weeks gestation of ] 08-27-2024 Episodic Residual codes; unclassified (5 sources) Gestation period, 31 weeks; Translations: [31 weeks gestation of ] Onset: 09-17-2024 09-17-2024 Episodic Past or Other Problems Problem Classification [...] Test Name Value Interpretation Reference Range Facility OB BPP W NON-STRESS on 09-25-2024 [place] [address] Ultrasound Report Signed Patient: ED MURPHY MR#: [id number] : 1990 Acct:[id number] Age/Sex: 33 / F ADM Date: 09/24/24 Loc: US Attending Dr: Aquiles Campbell D.O. Ordering Physician: Aquiles Campbell D.O. Date of Service: 09/24/24 Procedure(s): US OB BPP w non-stress Accession Number(s): [id number] cc: Aquiles Campbell D.O.; Physician,Non-Staff M.D. The [place] [id number] Patient Name: ED MURPHY MRN: [id number] date: 1990 Sex: F Assigned Patient Location: US Current Patient Location: Accession/Order Number: [id number] Exam Date: 09/25/2024 07:56 Report Date: 09/25/2024 07:58 At the request of: AQUILES CAMPBELL DO Procedure: US OB BPP w non-stress Ultrasound biophysical profile HISTORY: Multigravida. Advanced maternal age. Adequate breathing movement, gross body movement, tone and amniotic fluid volume for total score of 8 out of 8. The amniotic fluid index is 13.5cm within normal limits. The heart rate 135 bpm. US/US OB BPP w non-stress IMPRESSION: Adequate ultrasound biophysical profile Impression dictated by: Manuel Swartz M.D. 09/25/2024 7:58 AM Dictation Location: [place] [address] Electronically authenticated by: [id number] Y Date: 09/25/2024 07:58 Dictated By: Manuel Swartz D.O. Signed By: 09/25/24 0800 DD/ 0758 TD/TT: It Security Project Manager: [facility] Radiology, Radiologist, MD - 09/25/2024 [place] [address] Ultrasound Report Signed Patient: ED MURPHY MR#: [id number] : 1990 Acct:[id number] Age/Sex: 33 / F ADM Date: 09/24/24 Loc: US Attending Dr: Aquiles Campbell D.O. Ordering Physician: Aquiles Campbell D.O. Date of Service: 09/24/24 Procedure(s): US OB BPP w non-stress Accession Number(s): [id number] cc: Aquiles Campbell D.O.; Physician,Non-Staff [place] The [address] [address] Patient Name: ED MURPHY MRN: [facility]:[id number] date: 1990 Sex: F Assigned Patient Location: Current Patient Location: Accession/Order Number: [id number] Exam Date: 09/25/2024 07:56 Report Date: 09/25/2024 07:58 At the request of: AQUILES CAMPBELL DO Procedure: US OB BPP w non-stress Ultrasound biophysical profile HISTORY: Multigravida. Advanced maternal age. Adequate breathing movement, gross body movement, tone and amniotic fluid volume for total score of 8 out of 8. The amniotic fluid index is 13.5cm within normal limits. The heart rate 135 bpm. US/US OB BPP w non-stress IMPRESSION: Adequate ultrasound biophysical profile Impression dictated by: Manuel Swartz M.D. 09/25/2024 7:58 AM Dictation Location: [place] [address] Electronically authenticated by: [id number] Y Date: 09/25/2024 07:58 Dictated By: Manuel Swartz D.O. Signed By: 09/25/24 0800 DD/ 0758 TD/TT: It Security Project Manager: [facility] [employer] Rad[facility] Study observation (narrative) [facility] US OB BPP W NON-STRESS Ordered By: Radiologist Radiology on 09-25-2024 [facility] [employer] Work Phone: US OB FOLLOW UP TRANSABDOMIN AL APPROACHon 09-17-2024 US OB FOLLOW UP TRANSABDOMINAL APPROACH EXAM: US OB FOLLOW UP TRANSABDOMINAL APPROACH [...] II, MD, PHD at 18-Sep-2024 08:23:43 AM [facility] Normal Not Available Comment on above: Order Comment: US OB SCAN FOR GROWTH Estimated Date of Delivery: 11/17/24 Gestational Age as of 08/27/2024: 28w2d Urinalysis macro (dipstick) panel (U)on 09-17-2024 Bilirubin, UA Negative Negative - 4(70) +++ mg/dL [facility] Blood, UA Negative Negative - 50 Alex/mcL [facility] Clarity, UA Clear [facility] Color, UA Yellow [facility] Glucose, UA Negative Negative - 1999(110) ++++ mg/dL [facility] Interpretation and review of laboratory results Normal [facility] Ketones, UA Negative Negative - 160(16) ++++ mg/dL [facility] Leukocytes, UA Negative Negative - 500+++ Jodi/mcL [facility] Nitrite, UA Negative Negative - Positive [facility] pH, UA 7 5 - 9 [facility] Protein, UA Negative Negative - 1999(20) ++++ mg/dL [facility] Spec Grav, UA 1.01 1 - 1.03 [facility] Urobilinogen, UA 0.2 0.2 - 12 mg/dL [facility] HEMOGLOBIN A1Con 025 Glucose [Mass/Vol] 114 mg/dL [facility] HbA1c (Bld) [Mass fraction] 5.6 % 4.5 - 6.2 % [facility] Comment on above: ADA RECOMMENDED LIMI T 4.0 - 6.0 ADA THERAPEUTIC TARGET < 7.0 ACTION SUGGESTED > 7.0 [facility] Urinalysis macro (dipstick) panel (U)Ordered By: Daniel Pereira on 08-27-2024 Bilirubin, UA Negative Negative - 4(70) +++ mg/dL [facility] Work Phone: Blood, UA Negative Negative - 50 Alex/mcL [facility] Work Phone: Clarity, UA Clear [facility] Work Phone: Color, UA Yellow [facility] Work Phone: Glucose, UA Negative Negative - 1999(110) ++++ mg/dL [facility] Work Phone: Interpretation and review of laboratory results Normal [facility] Work Phone: Ketones, UA Negative Negative - 160(16) ++++ mg/dL [facility] Work Phone: Leukocytes, UA Negative Negative - 500+++ Jodi/mcL [facility] Work Phone: Nitrite, UA Negative Negative - Positive [facility] [employer] Work Phone: pH, UA 6.5 5 - 9 [facility] [employer] Work Phone: Protein, UA Negative Negative - 2000(20) ++++ mg/dL [facility] [employer] Work Phone: Spec Grav, UA 1.015 1 - 1.03 [facility] [employer] Work Phone: Urobilinogen, UA 0.2 0.2 - 12 mg/dL [facility] [employer] Work Phone: [facility] [employer] Work Phone: US OB LIMITED 1+ FETUSESon 0 08-01-2024 US OB LIMITED 1+ FETUSES EXAM: US OB [...] II, MD, PHD at 01-Aug-2024 11:20:36 PM [facility] Normal Not Available Comment on above: Order Comment: US OB INCOMPLETE ANATOMY Estimated Date of Delivery: 11/17/24 Gestational Age as of 07/08/2024: 21w1d RECURRENT VAGINITIS (HTRX)on 06-04-2024 ATOPOBIUM VAGINAE 0 [facility] ATOPOBIUM VAGINAE Not detected [facility] BVAB 2,3 (BACTERIAL VAGINOSIS ASSOCIATED BACTERIA 2, 3); MOBILUNCUS SPP 0 [facility] BVAB 2,3 (BACTERIAL VAGINOSIS ASSOCIATED BACTERIA 2, 3); MOBILUNCUS SPP Not detected [facility] NICA ALBICANS, PARAPSILOSIS, TROPICALIS 0 [facility] NICA ALBICANS, PARAPSILOSIS, TROPICALIS Not detected [facility] NICA GLABRATA 0 [facility] NICA GLABRATA Not detected [facility] NICA KRUSEI 0 [facility] NICA KRUSEI Not detected [facility] CHLAMYDIA TRACHOMATIS 0 [facility] CHLAMYDIA TRACHOMATIS Not detected [facility] GARDNERELLA VAGINALIS 29.376 Abnormal [facility] GARDNERELLA VAGINALIS Detected Abnormal [facility] Interpretation and review of laboratory results Abnormal [facility] MEGASPHAERA (TYPES 1, 2) 0 [facility] MEGASPHAERA (TYPES 1, 2) Not detected [facility] MYCOPLASMA GENITALIUM 0 [facility] MYCOPLASMA GENITALIUM Not detected [facility] NEISSERIA GONORRHOEAE 0 [facility] NEISSERIA GONORRHOEAE Not detected [facility] TRICHOMONAS VAGINALIS 0 [facility] TRICHOMONAS VAGINALIS Not detected [facility] US OB 14+ WEEKS ANATOMY SCAN on [...] II, MD, PHD at 02-Jul-2024 09:56:12 AM [facility] Normal Not Available Comment on above: Order Comment: US OB ANATOMY SINGLE W US OB CERVICAL LENGTH Estimated Date of Delivery: 11/17/24 Gestational Age as of 06/03/2024: 16w1d Urinalysis macro (dipstick) panel (U)on 06-03-2024 Bilirubin, UA Negative Negative - 4(70) +++ mg/dL [facility] Blood, UA Positive Negative - 50 Alex/mcL [facility] Comment on above: trace-intact Clarity, UA Clear [facility] Color, UA Yellow [facility] Glucose, UA Negative Negative - 1999(110) ++++ mg/dL [facility] Interpretation and review of laboratory results Abnormal [facility] Ketones, UA Positive Negative - 160(16) ++++ mg/dL [facility] Comment on above: 15mg/dL Leukocytes, UA Negative Negative - 500+++ Jodi/mcL [facility] Nitrite, UA Negative Negative - Positive [facility] pH, UA 5.5 5 - 9 [facility] Protein, UA Negative Negative - 1999(20) ++++ mg/dL [facility] Spec Grav, UA 1.02 1 - 1.03 [facility] Urobilinogen, UA 0.2 0.2 - 12 mg/dL [facility] Urinalysis macro (dipstick) panel (U)on 05-02-2024 Bilirubin, UA Trace Negative - 4(70) +++ mg/dL [facility] Blood, UA Negative Negative - 50 Alex/mcL [facility] Clarity, UA Clear [facility] Color, UA Yellow [facility] Glucose, UA Negative Negative - 1999(110) ++++ mg/dL [facility] Interpretation and review of laboratory results Abnormal [facility] Ketones, UA Positive Negative - 160(16) ++++ mg/dL [facility] Leukocytes, UA Negative Negative - 500+++ Jodi/mcL [facility] Nitrite, UA Negative Negative - Positive [facility] pH, UA 6 5 - 9 [facility] Protein, UA Positive Negative - 1999(20) ++++ mg/dL [facility] Spec Grav, UA 1.03 1 - 1.03 [facility] Urobilinogen, UA 0.2 0.2 - 12 mg/dL [facility] ALL CBC WITH AUTO DIFFon BASOPHILS ABSOLUTE AUTO 0 [facility] Basophils/100 WBC (Bld) 0.4 % 0.2 - 2.0 % [facility] Eosinophils/100 WBC (Bld) 0.6 % Low 0.9 - 7.0 % [facility] Erythrocyte distribution width (RBC) [Ratio] 14.1 % 11.0 - 15.0 % [facility] Hematocrit (Bld) [Volume fraction] 40.6 % 36.0 - 48.0 % [facility] Hemoglobin (Bld) [Mass/Vol] 13.1 g/dL 12.0 - 16.0 g/dL [facility] IMMATURE GRANULOCYTES ABS AUTO 0.03 [facility] Immature granulocytes/100 WBC (Bld) 0.3 % 0.0 - 0.5 % [facility] Interpretation and review of laboratory results Abnormal [facility] LYMPHOCYTES ABSOLUTE AUTO 1.9 [facility] Lymphocytes/100 WBC (Bld) 19.1 % Low 20.5 - 60.0 % [facility] MCH (RBC) [Entitic mass] 27.9 pg 26.7 - 34.0 pg [facility] MCHC (RBC) [Mass/Vol] 32.3 g/dL 29.9 - 35.2 g/dL [facility] MCV (RBC) [Entitic vol] 86.6 fL 81.0 - 99.0 fL [facility] MONOCYTES ABSOLUTE AUTO 0.5 [facility] Monocytes/100 WBC (Bld) 5.4 % 1.7 - 12.0 % [facility] NEUTROPHILS ABSOLUTE AUTO 7.4 High [facility] Neutrophils/100 WBC (Bld) 74.2 % 43.0 - 75.0 % [facility] Platelet mean volume (Bld) [Entitic vol] 9.3 fL Low 9.5 - 13.5 fL [facility] EO # 0.1 [facility] PLT 380 [facility] RBC 4.69 [facility] WBC 9.9 [facility] US OB TRANSVAGINALon 025 US OB TRANSVAGINAL [...] x 3.6 cm (8 weeks, 0 days). [place] rump length is 1.8 cm (8 weeks, [...] (U) No Growth 2 Days PERFORMED BY: [facility] [address] [place] [id number] PATHOLOGIST ODD JOB WORKER TOSHA Shepherd [facility] Comment on above: Performed By: #### C UU #### [facility] [address] TB PREG QUANT HCGon 024 HCG QUANTITATIVE 7110 mIU/mL [facility] Comment on above: 5-50 0.2-1 WEEK 50-500 1-2 WEEKS 100-5,000 2-3 WEEKS 500-10,000 3-4 WEEKS 1,000-50,000 4-5 WEEKS 10,000-100,000 5-6 WEEKS 15,000-200,000 6-8 WEEKS 10,000-100,000 2[facility] 024 HCG QUANTITATIVE 5107 mIU/mL [facility] Healthcare Comment on above: 5-50 0.2-1 WEEK 50-500 1-2 WEEKS 100-5,000 2-3 WEEKS 500-10,000 3-4 WEEKS 1,000-50,000 4-5 WEEKS 10,000-100,000 5-6 WEEKS 15,000-200,000 6-8 WEEKS 10,000-100,000 2-[address] [facility] PREG QUANT HCGon 024 HCG QUANTITATIVE 2902 mIU/mL [facility] Comment on above: 5-50 0.2-1 WEEK 50-500 1-2 WEEKS 100-5,000 2-3 WEEKS 500-10,000 3-4 WEEKS 1,000-50,000 4-5 WEEKS 10,000-100,000 5-6 WEEKS 15,000-200,000 6-8 WEEKS 10,000-100,000 2-[facility]ANT [facility]CGon 024 HCG QUANTITATIVE 1345 mIU/mL [facility] Comment on above: 5-50 0.2-1 WEEK 50-500 1-2 WEEKS 100-5,000 2-3 WEEKS 500-10,000 3-4 WEEKS 1,000-50,000 4-5 WEEKS 10,000-100,000 5-6 WEEKS 15,000-200,000 6-8 WEEKS 10,000-100,000 2-[address] [facility] PREG QUANT HCGon 024 HCG QUANTITATIVE 420 mIU/mL [facility] Comment on above: 5-50 0.2-1 WEEK 50-500 1-2 WEEKS 100-5,000 2-3 WEEKS 500-10,000 3-4 WEEKS 1,000-50,000 4-5 WEEKS 10,000-100,000 5-6 WEEKS 15,000-200,000 6-8 WEEKS 10,000-100,000 2-[address] [facility] PREG QUANT HCGon 024 HCG QUANTITATIVE 184 mIU/mL [facility] Comment on above: 5-50 0.2-1 WEEK 50-500 1-2 WEEKS 100-5,000 2-3 WEEKS 500-10,000 3-4 WEEKS 1,000-50,000 4-5 WEEKS 10,000-100,000 5-6 WEEKS 15,000-200,000 6-8 WEEKS 10,000-100,000 2-[address] [facility] PREG QUANT HCGon 024 HCG QUANTITATIVE 59 mIU/mL [facility] Comment on above: 5-50 0.2-1 WEEK 50-500 1-2 WEEKS 100-5,000 2-3 WEEKS 500-10,000 3-4 WEEKS 1,000-50,000 4-5 WEEKS 10,000-100,000 5-6 WEEKS 15,000-200,000 6-8 WEEKS 10,000-100,000 2-3 MONTHS [facility] ALL PROGESTERONEon 4 PROGESTERONE 9.3 ng/mL . [facility] Comment on above: Follicular phase 0.1 - 0.9 Luteal phase 1.8 - 23.9 Ovulation phase 0.1 - 12.0 First trimester 11.0 - 44.3 Second trimester 25.4 - 83.3 Third trimester 58.7 - 214.0 Postmenopausal 0.0 - 0.1 Performed at: [facility] [address] [id number] Pusher Runner: Josr Jarvis PhD, Phone: [phone] [facility] IGP,APTIMA HPV,AGE GDLNon AGE GDLN ACOG TESTING Note . [facility] Comment on above: TESTS RESULT FLAG U NITS REF RANGE LAB Clinician Provided Cytology Information Source.............Cervix;Endocervix No. of containers..01 ThinPrep Vial Age Algo ACOG Jacinta... FLAG LEGEND: L-Low Normal,H-High Normal,LL-Alert Low,HH-Alert High <-Panic Low,>-Panic High,A-Abnormal,AA-Critical Abnormal Performed at: 01 =G [address] [address] Stacey Tao MD, HPV APTIMA Negative Negative [facility] Comment on above: This nucleic acid am plification test detects fourteen high- risk HPV types (16,18,31,33,35,39,45,51,52,56,58,59,66,68) without differentiation. Performed at: =[address] [id number] Pusher Runner: Stacey Tao MD, Phone: [phone] Performed at: [address] [id number] Pusher Runner: Stacey Tao MD, Phone: [phone] IGP, APTIMA HPV, RFX 16/18,45 Note . [facility] Comment on above: TESTS RESULT FLAG UN ITS REF RANGE LAB DIAGNOSIS: 02 NEGATIVE FOR INTRAEPITHELIAL LESION OR MALIGNANCY. Specimen adequacy: 02 Satisfactory for evaluation. Endocervical and/or squamous metaplastic cells (endocervical component) are present. Performed by: 02 Ed Mancilla, Photolith Operator (ASC) . 02 Note: Note 02 The Pap [...] High,A-Abnormal,AA-Critical Abnormal Performed at: 02 WB [facility] [address] [address] Stacey Tao MD, BRUSH-SPATULA CERVIX ENDOCERVIX [facility] DHEA-SULFATEon 08-23-2022 DHEA-Sulfate 352.0 ug/dL Normal 84.8-378.0 [facility] Comment on above: Performed By: #### L [facility] #### [facility] [address] [place] [address] Dr. Nam Keenan FSHon 08-23-2022 FSH 6.7 mIU/mL Normal [facility] Comment on above: Result Comment: Adul t Female: Follicular phase 3.5 - 12.5 Ovulation phase 4.7 - 21.5 Luteal phase 1.7 - 7.7 Postmenopausal 25.8 - 134.8 Performed By: #### L [facility] #### [facility] [address] [place] [address] Dr. Nam Keenan LUTEINIZING HORMONE (LH)on 0 08-23-2022 LH 13.7 mIU/mL Normal [facility] Comment on above: Result Comment: Adul t Female: Follicular phase 2.4 - 12.6 Ovulation phase 14.0 - 95.6 Luteal phase 1.0 - 11.4 Postmenopausal 7.7 - 58.5 Performed By: #### L BCL #### [facility] [address] [place] [address] Dr. Nam Keenan CBC AUTO DIFFon 08-22-2022 BASO # 0.1 103/ul Normal 0.0-0.1 [facility] Comment on above: Performed By: #### L [facility] #### [facility] [address] [place], [place] [address] Dr. Nam Keenan Basophils/100 WBC (Bld) 0.7 % Normal 0.2-2.0 [facility] Comment on above: Performed By: #### L BCLH #### [facility] [address] [place] [address] Dr. Nam Keenan EO # 0.3 103/ul Normal 0.0-0.7 [facility] Comment on above: Performed By: #### L BCLH #### [facility] [address] [place] [address] Dr. Nam Keenan Eosinophils/100 WBC (Bld) 3.9 % Normal 0.9-7.0 [facility] Comment on above: Performed By: #### L BCLH #### [facility] [address] [place] [address] Dr. Nam Keenan Erythrocyte distribution width (RBC) [Ratio] 13.3 % Normal 11.0-15.0 [facility] Comment on above: Performed By: #### L BCLH #### [facility] [address] [address] [address] Nam Keenan Hematocrit (Bld) [Volume fraction] 38.7 % Normal 36.0-48.0 [facility] Comment on above: Performed By: #### L BCLH #### [facility] [address] [address] [address] Nam Keenan Hemoglobin (Bld) [Mass/Vol] 12.4 g/dL Normal 12.0-16.0 [facility] Comment on above: Performed By: #### L BCLH #### [facility] [address] [place] [address] Dr. Nam Keenan IG # 0.01 10e3/ul Normal 0.00-0.03 [facility] Comment on above: Performed By: #### L BCLH #### [facility] [address] [place] [address] Dr. Nam Keenan IG % 0.1 % Normal 0.0-0.5 [facility] Comment on above: Performed By: #### L BCLH #### [facility] [address] [place] [address] Dr. Nam Keenan LYMPH # 2.9 103/ul Normal 1.2-3.8 [facility] Comment on above: Performed By: #### L BCLH #### [facility] [address] [place] [address] Dr. Nam Keenan Lymphocytes/100 WBC (Bld) 34.4 % Normal 20.5-60.0 [facility] Comment on above: Performed By: #### L BCLH #### [facility] [address] [address] [address] Nam Keenan MANUAL DIFF REQ NO Normal [facility] Comment on above: Performed By: #### L BCLH #### [facility] [address] [place] [address] Dr. Nam Keenan MCH (RBC) [Entitic mass] 27.8 pg Normal 26.7-34.0 [facility] Comment on above: Performed By: #### L BCLH #### [facility] [address] [address] [address] Nam Keenan MCHC (RBC) [Mass/Vol] 32.0 g/dL Normal 29.9-35.2 [facility] Comment on above: Performed By: #### L BCLH #### [facility] [address] [address] [address] Nam Keenan MCV (RBC) [Entitic vol] 86.8 fL Normal 81.0-99.0 [facility] Comment on above: Performed By: #### L BCLH #### [facility] [address] [address] [address] Nam Keenan MONO # 0.6 103/ul Normal 0.3-0.8 [facility] Comment on above: Performed By: #### L BCLH #### [facility] [address] [place] [address] Dr. Nam Keenan Monocytes/100 WBC (Bld) 6.7 % Normal 1.7-12.0 [facility] Comment on above: Performed By: #### L BCLH #### [facility] [address] [place] [address] Dr. Nam Keenan NEUT # 4.6 103/ul Normal 1.4-6.5 [facility] Comment on above: Performed By: #### L BCLH #### [facility] [address] [place] [address] Dr. Nam Keenan Neutrophils/100 WBC (Bld) 54.2 % Normal 43.0-75.0 [facility] Comment on above: Performed By: #### L BCLH #### [facility] [address] [address] [address] Nam Keenan Platelet mean volume (Bld) [Entitic vol] 9.6 fL Normal 9.5-13.5 [facility] Comment on above: Performed By: #### L BCLH #### [facility] [address] [place] [address] Dr. Nam Keenan PLT 335 103/ul Normal 150-450 [facility] Comment on above: Performed By: #### L BCL #### [facility] [address] [place] [address] Dr. Nam Keenan RBC 4.46 106/ul Normal 4.20-5.40 [facility] Comment on above: Performed By: #### L BCL #### [facility] [address] [place] [address] Dr. Nam Keenan WBC 8.5 103/ul Normal 4.0-11.0 [facility] Comment on above: Performed By: #### L BCL #### [facility] [address] [place] [address] Dr. Nam Keenan FREE T4on 08-22-2022 Free T4 [Mass/Vol] 1.14 ng/dL Normal 0.76-1.46 [facility] Comment on above: Performed By: #### L AMY #### [facility] [address] [place] [address] Dr. Nam Keenan GLYCOHEMOGLOBIN A1Con 2022 ADA RECOMMENDATION SEE BELOW Normal [facility] Comment on above: Result Comment: ADA RECOMMENDED LIMIT 4.0 - 6.0 ADA THERAPEUTIC TARGET < 7.0 ACTION SUGGESTED > 7.0 Performed By: #### A 1C #### [facility] [address] [place] [address] Dr. Nam Keenan Glucose [Mass/Vol] 97 mg/dL Normal [facility] Comment on above: Performed By: #### A 1C #### [facility] [address] [place] [address] Dr. Nam Keenan HbA1c (Bld) [Mass fraction] 5.0 % Normal 4.5-6.2 [facility] Comment on above: Performed By: #### A 1C #### [facility] [address] [place] [address] Dr. Nam Keenan PREG QUANT HCGon 08-22-2022 HCG QUANT <1 Normal [facility] Comment on above: Performed By: #### P REGQNT, TSH #### [facility] [address] [place] [address] Dr. Nam Keenan HCG RANGE SEE BELOW Normal [facility] Comment on above: Result Comment: 5-50 0.2-1 WEEK 50-500 1-2 WEEKS 100-5,000 2-3 WEEKS 500-10,000 3-4 WEEKS 1,000-50,000 4-5 WEEKS 10,000-100,000 5-6 WEEKS 15,000-200,000 6-8 WEEKS 10,000-100,000 2-3 MONTHS Performed By: #### P REGQNT, TSH #### [facility] [address] [place] [address] Dr. Nam Keenan TSHon 08-22-2022 TSH 2.026 uIU/mL Normal 0.358-3.740 [facility] Comment on above: Performed By: #### P REGQNT, TSH #### [facility] [address] [place] [address] Dr. Nam Keenan PREG QUANT HCGon 05-27-2022 HCG QUANT 3 mIU/mL Normal [facility] Comment on above: Performed By: #### P REGQNT #### [facility] [address] [place] [address] Dr. Nam Keenan HCG RANGE SEE BELOW Normal [facility] Comment on above: Result Comment: 5-50 0.2-1 WEEK 50-500 1-2 WEEKS 100-5,000 2-3 WEEKS 500-10,000 3-4 WEEKS 1,000-50,000 4-5 WEEKS 10,000-100,000 5-6 WEEKS 15,000-200,000 6-8 WEEKS 10,000-100,000 2-3 MONTHS Performed By: #### P REGQNT #### [facility] [address] [place] [address] Dr. Nam Keenan CBC AUTO DIFFon 05-22-2022 BASO # 0.1 103/ul Normal 0.0-0.1 [facility] Comment on above: Performed By: #### L BCLH #### [facility] [address] [place] [address] Dr. Nam Keenan Basophils/100 WBC (Bld) 0.7 % Normal 0.2-2.0 [facility] Comment on above: Performed By: #### L BCLH #### [facility] [address] [place] [address] Dr. Nam Keenan EO # 0.2 103/ul Normal 0.0-0.7 [facility] Comment on above: Performed By: #### L BCLH #### [facility] [address] [place] [address] Dr. Nam Keenan Eosinophils/100 WBC (Bld) 1.6 % Normal 0.9-7.0 [facility] Comment on above: Performed By: #### L BCLH #### [facility] [address] [place] [address] Dr. Nam Keenan Erythrocyte distribution width (RBC) [Ratio] 13.9 % Normal 11.0-15.0 [facility] Comment on above: Performed By: #### L BCLH #### [facility] [address] [place] [address] Dr. Nam Keenan Hematocrit (Bld) [Volume fraction] 36.2 % Normal 36.0-48.0 [facility] Comment on above: Performed By: #### L BCLH #### [facility] [address] [place] [address] Dr. Nam Keenan Hemoglobin (Bld) [Mass/Vol] 12.1 g/dL Normal 12.0-16.0 [facility] Comment on above: Performed By: #### L BCLH #### [facility] [address] [place] [address] Dr. Nam Keenan IG # 0.03 10e3/ul Normal 0.00-0.03 [facility] Comment on above: Performed By: #### L BCLH #### [facility] [address] [place] [address] Dr. Nam Keenan IG % 0.3 % Normal 0.0-0.5 [facility] Comment on above: Performed By: #### L BCLH #### [facility] [address] [place] [address] Dr. Nam Keenan LYMPH # 3.9 103/ul Critically high 1.2-3.8 [facility] Comment on above: Performed By: #### L BCLH #### [facility] [address] [place] [address] Dr. Nam Keenan Lymphocytes/100 WBC (Bld) 38.0 % Normal 20.5-60.0 [facility] Comment on above: Performed By: #### L BCLH #### [facility] [address] [place] [address] Dr. Nam Keenan MANUAL DIFF REQ NO Normal [facility] Comment on above: Performed By: #### L BCLH #### [facility] [address] [place] [address] Dr. Nam Keenan MCH (RBC) [Entitic mass] 28.0 pg Normal 26.7-34.0 [facility] Comment on above: Performed By: #### L BCLH #### [facility] [address] [place] [address] Dr. Nam Keenan MCHC (RBC) [Mass/Vol] 33.4 g/dL Normal 29.9-35.2 [facility] Comment on above: Performed By: #### L BCLH #### [facility] [address] [place] [address] Dr. Nam Keenan MCV (RBC) [Entitic vol] 83.8 fL Normal 81.0-99.0 [facility] Comment on above: Performed By: #### L BCLH #### [facility] [address] [place] [address] Dr. Nam Keenan MONO # 0.8 103/ul Normal 0.3-0.8 [facility] Comment on above: Performed By: #### L BCLH #### [facility] [address] [place] [address] Dr. Nam Keenan Monocytes/100 WBC (Bld) 7.6 % Normal 1.7-12.0 [facility] Comment on above: Performed By: #### L BCLH #### [facility] [address] [place] [address] Dr. Nam Keenan NEUT # 5.4 103/ul Normal 1.4-6.5 [facility] Comment on above: Performed By: #### L BCLH #### [facility] [address] [address] [address] Nam Keenan Neutrophils/100 WBC (Bld) 51.8 % Normal 43.0-75.0 [facility] Comment on above: Performed By: #### L BCLH #### [facility] [address] [address] [address] Nam Keenan Platelet mean volume (Bld) [Entitic vol] 9.1 fL Critically low 9.5-13.5 [facility] Comment on above: Performed By: #### L BCLH #### [facility] [address] [address] [address] Nam Keenan PLT 342 103/ul Normal 150-450 [facility] Comment on above: Performed By: #### L BCLH #### [facility] [address] [place] [address] Dr. Nam Keenan RBC 4.32 106/ul Normal 4.20-5.40 [facility] Comment on above: Performed By: #### L BCLH #### [facility] [address] [place] [address] Dr. Nam Keenan WBC 10.3 103/ul Normal 4.0-11.0 [facility] Comment on above: Performed By: #### L BCLH #### [facility] [address] [place] [address] Dr. Nam Keenan PROF CHEM 8 (BAS METB)on Anion gap [Moles/Vol] 12.1 mmol/L Normal [facility] Comment on above: Performed By: #### B MP #### [facility] [address] [place] [address] Dr. Nam Keenan Calcium [Mass/Vol] 8.9 mg/dL Normal 8.5-10.1 [facility] Comment on above: Performed By: #### B MP #### [facility] [address] [place] [address] Dr. Nam Keenan Chloride [Moles/Vol] 105 mmol/L Normal 98-107 [facility] Comment on above: Performed By: #### B MP #### [facility] [address] [address] [address] Nam Keenan CO2 [Moles/Vol] 27.4 mmol/L Normal 21.0-32.0 [facility] Comment on above: Performed By: #### B MP #### [facility] [address] [address] [address] Nam Keenan Creatinine [Mass/Vol] 0.66 mg/dL Normal 0.55-1.02 [facility] Comment on above: Performed By: #### B MP #### [facility] [address] [address] [address] Nam Keenan EGFR-AF GUYANESE >60 Normal >=60 [facility] Comment on above: Performed By: #### B MP #### [facility] [address] [place] [address] Dr. Nam Keenan EGFR-NON AF GUYANESE >60 Normal >=60 [facility] Comment on above: Performed By: #### B MP #### [facility] [address] [place] [address] Dr. Nam Keenan Glucose [Mass/Vol] 105 mg/dL Normal 74-106 [facility] Comment on above: Performed By: #### B MP #### [facility] [address] [place] [address] Dr. Nam Keenan Potassium [Moles/Vol] 3.5 mmol/L Normal 3.5-5.1 [facility] Comment on above: Performed By: #### B MP #### [facility] [address] [place] [address] Dr. Nam Keenan Sodium [Moles/Vol] 141 mmol/L Normal 136-145 [facility] Comment on above: Performed By: #### B MP #### [facility] [address] [address] [address] Nam Keenan Urea nitrogen [Mass/Vol] 7.0 mg/dL Normal 7.0-18.0 [facility] Comment on above: Performed By: #### B MP #### [facility] [address] [address] [address] Nam Keenan Urea nitrogen/Creatinine [Mass ratio] 10.6 mg/mg Normal [facility] Comment on above: Performed By: #### B #### [facility] [address] [place] [address] Dr. Nam Keenan PREG QUANT HCGon 05-17-2022 HCG QUANT 532 mIU/mL Normal [facility] Comment on above: Performed By: #### L [facility] #### [facility] [address] [place] [address] Dr. Nam Keenan HCG RANGE SEE BELOW Normal [facility] Comment on above: Result Comment: 5-50 0.2-1 WEEK 50-500 1-2 WEEKS 100-5,000 2-3 WEEKS 500-10,000 3-4 WEEKS 1,000-50,000 4-5 WEEKS 10,000-100,000 5-6 WEEKS 15,000-200,000 6-8 WEEKS 10,000-100,000 2-3 MONTHS Performed By: #### L AMY #### [facility] [address] [place] [address] Dr. Nam Keenan US PREG TVon 05-13-2022 [...] ROOSEVELT LOPEZ Date: 2022-05-13 13:02 Normal [facility] PREG QUANT HCGon 04-28-2022 HCG QUANT 139 mIU/mL Normal [facility] Comment on above: Performed By: #### L AMY #### [facility] [address] [place] [address] Dr. Nam Keenan HCG RANGE SEE BELOW Normal [facility] Comment on above: Result Comment: 5-50 0.2-1 WEEK 50-500 1-2 WEEKS 100-5,000 2-3 WEEKS 500-10,000 3-4 WEEKS 1,000-50,000 4-5 WEEKS 10,000-100,000 5-6 WEEKS 15,000-200,000 6-8 WEEKS 10,000-100,000 2-3 MONTHS Performed By: #### L BCLH #### [facility] [address] [place] [address] Dr. Nam Keenan PREG QUANT HCGon 04-26-2022 HCG QUANT 50 mIU/mL Normal [facility] Comment on above: Performed By: #### P REGQNT #### [facility] [address] [place] [address] Dr. Nam Keenan HCG RANGE SEE BELOW Normal [facility] Comment on above: Result Comment: 5-50 0.2-1 WEEK 50-500 1-2 WEEKS 100-5,000 2-3 WEEKS 500-10,000 3-4 WEEKS 1,000-50,000 4-5 WEEKS 10,000-100,000 5-6 WEEKS 15,000-200,000 6-8 WEEKS 10,000-100,000 2-3 MONTHS Performed By: #### P REGQNT #### [facility] [address] [place] [address] Dr. Nam Keenan PROGESTERONEon 04-19-2022 Progesterone 12.6 ng/mL Normal [facility] Comment on above: Result Comment: Foll icular phase 0.1 - 0.9 Luteal phase 1.8 - 23.9 Ovulation phase 0.1 - 12.0 First trimester 11.0 - 44.3 Second trimester 25.4 - 83.3 Third trimester 58.7 - 214.0 Postmenopausal 0.0 - 0.1 Performed By: #### P ROGES #### [facility] [address] [place] [address] Dr. Nam Keenan PROGESTERONEon 04-16-2022 Progesterone 9.5 ng/mL Normal [facility] Comment on above: Result Comment: Foll icular phase 0.1 - 0.9 Luteal phase 1.8 - 23.9 Ovulation phase 0.1 - 12.0 First trimester 11.0 - 44.3 Second trimester 25.4 - 83.3 Third trimester 58.7 - 214.0 Postmenopausal 0.0 - 0.1 Performed By: #### L AMY #### [facility] [address] [place], [place] [id number] Dr. Nam Keenan PROGESTERONEon 03-15-2022 Progesterone 6.2 ng/mL Normal [facility] Comment on above: Result Comment: Foll icular phase 0.1 - 0.9 Luteal phase 1.8 - 23.9 Ovulation phase 0.1 - 12.0 First trimester 11.0 - 44.3 Second trimester 25.4 - 83.3 Third trimester 58.7 - 214.0 Postmenopausal 0.0 - 0.1 Performed By: #### L AMY #### [facility] [address] [place] [address] Dr. Nam Keenan PROGESTERONEon 02-15-2022 Progesterone 11.0 ng/mL Normal [facility] Comment on above: Result Comment: Foll icular phase 0.1 - 0.9 Luteal phase 1.8 - 23.9 Ovulation phase 0.1 - 12.0 First trimester 11.0 - 44.3 Second trimester 25.4 - 83.3 Third trimester 58.7 - 214.0 Postmenopausal 0.0 - 0.1 Performed By: #### P KIAN #### [facility] [address] [place] [address] Dr. Nam Keenan Coding Summary.on 03-30-2021 Coding Summary. CD:[id number] G h0bWw+PGhlYWQ+UJ4YTEG rF05fpIIddV0WL8cPXE6R QFDSRMWVFC6OGB9rnZO9W AmeU3ZuhlWr TibsuHAmBV52DFx9NOI4w UvtFYpiaA2wyZCvJ8y1Qt ZsBH74eH69YPwmZFKuWmI 3LjZpbjsgbWFy S9rzQxOpmGHhRfd+PHRhY mxlIHdpZHRoPScxMDAlJy FioSwkMW4xFg1gQQEhNGI vbGxhcHNlOiBj u4bsSZJuPIifPT2fxBsyA 4RgzKU7NBTdr5y4Gt98nL I+UBWoLGX8jExqKUlot65 8KrKdv6pmGQG9 zUOlSLucXSE6V89xs7T4X CUqTIBhBDJ8yQG7cD6ikG enymgyJ5PriYJrOcK1ZFL 7qETldL1ccQwp kfbcyL6yLux+V05GXD7QL JLEON2SDgf4I5YmZiwuqA I+MJ23QKDpYS18rFLacDG nv3rioYs7ZoVa PGRdVDZ2vBhsQSjpu5WjC MIlD47owWYby3F1KYPjxQ rrjOUtEtHnjJC3xU9iPLj dfzrpa4elfzmm Zklnw0zdsq21eV90L76eT PnkXGQmQOM9OVIgIQMkeU zukl8ckI7yZr4+EInrj6u ur9bndTd1XkFp SUPjodOmyXglJLE7d9MuD a88C1OurPcmw0BeRuw9sn 16nLHwy2P8xPP5SKtfHIZ wxS4yFEmjSrO6 PEXxScSzbF22qOZmDRadF s1mtJiujHoyMH1uIAZyib anVHShaD3iZFNyyVLajJd rLZ4nHZOpchhb h086QnKzWAZ3VMDolVVpD 6UulK0bMyJhXDJqIVUmR2 EwmUAhJUikO186NUduJaD 3UIUjilGwK1Aq GLPyxCimEaF6k2Z8Bl9Ax 9KzkzvaNBC3JDmmMUPjUc RcAqKnSuX2V9YnWpu8GZK wvJleWL4vR3Qr QBYquvbpwltkhUN2BKKjE KZhbF24kXJnZUhpUt1cz3 M4e928CQFbMFEaxJ05Vo3 udDogMTBwdCBU jP3zjgfxl2xpmbjjOaCjT YObCXu7AGi0FARbaBnlRy BnFYI0RiV0HMC2yLDxgH3 xvGbooxjtsZ4i Oyc+I44jgO6hDJA1WHF2o sbmTERzdgHxQT63YB76S4 RyPjwvdGFibGU+PGRpdiB buAyiXX2oHcMx b0zqo6PwIDayG7CdTOXmW NdgAgl9YHJqMVY9wNN5yG 5lVPKpDBwmo5M2xQV6D8Q igdGlha2xa6pu ZDLhXCjzI06jfAYvo1P6X RXbsQX9MDTtzVwhDqYbzL 93Oyc+YUJofBskn7BtTdl bc3awu1qpoCy5 EmAsOTJhnwFmtWrpCDT2x 7McBg55I29zVJczDMBvVQ FlIBZjMATwhKaumx0vaV0 wIi8+PGNvbCB3 jCF9cA1lOAFmAzY3TXmuW 940FrJalAWpPwkcw1kcn1 hrmDp6CwTqJTKzgeRdxKm bFPX4d8DeAl70 U23gBAzhCNKmESAxGDUdG QCudRvxxq2scV6nRi0+PC 4gc3iufw36bG63xDX+PHR fUQI9hAlsWZkz KDDkiD2bMZliIhB1STGdA iKsxJ28fDMxYRumNj8zaY oeyVkoWI2mSVJlazxsv70 1TuRez6meVHWk eBUaUPijIBM7E50mg4Z5V RNlODPbSUH0zHX1cX1giP lnbjogbGVmdDsgdmVydGl dTDacOHobN015 IHRvcDsnPlBhdGllbnQgT iRrPGr8K4FuKzc9CDAwdT qvSL6uaFWnHWqxVl4ymMn znWndUQ6nSTVr ykvqt882PqRiw2mfMNIvm CJjYMtlBRT8P20ug4H3UP CeJCLeOJN3wAD8dR6xwFt nbjogbGVmdDsg kxYqcOrwFRtiSRirV246L HRvcDsnPkJpcnRoIERhdG X1RG23QY75uTRzq5A7xOE 1A9WmEWLdqxhw yuxgtVK1CODaJJUwjW86X f4piTzdYf1fHCWgFEX1FV RbwBZkB0XudS8bJcLzUJS lIFOiG4KilCBv PAptU088YCbcCaI8MJDdz sBcS2IrTQWujMgdKeF2j6 E6Xz4JL0K4UI85KK15tAR od5V4kLW7X5Yb YCWldogtvznwhWA6DAKgY KFivU04Km7eaFodNp1jQH NoYIN1NUSfzQYxV4SevT1 yOiAjMDAwMDAw Y4YbpAQcTRmoW823TYdlL uM0OZJrmfBdT4HnHRKmsI unYcX2j7L9Pf2FRRb4LB7 1VI34lROzm3A0 hNJ2A2FcIKZgtcjrimpvw DC1QOCgZBWizC51Yo6ogO ecRs6bLRLhPHB4QXEtoPO lF5LhlK1rJyHf TAWzTCSnX0VodLWgDFldP 742DNygWdW8NDVodqVoU9 KmPXZzlKrnQtX4r7B8Zw4 OFBNeXG10RBD7 mGU7EP84AY12Q7XhJdoft GFibGU+PHRhYmxlIHdpZH RoPScxMDAlJyBzdHlsZT0 mJy4jLEKxMGZe tOzjyLIlQbHxo9zwAYXqK IbrAT4lxUywS2XjsZK2BS Mum4i1Xj01C07jR3DmaHD +TDZluWH0tWT1 nW9pJeFcCgB3WNvpS583R yCthQHgXlpcp8jrx2aryK g0FqB0CSJjdjOfxDtaNNG 0w7SrYb10A19s IHdpZHRoPSIxNSUiIHZhb Hawbx3lsU9oCy1+PGNvbC B3hZE2uK7nNdWjYaA1BVm aR265HvZtbCZg Iuxyf1rgu6ivkCi9BaAgM POxskJchFpsWFC4c6WcIi 86R2GypOllk4RpMxg4vq0 3oTVky1A6dUU2 I6DjJLSpphqfiKDlfIstQ R0yMCZmwxtjTTCnzP6oVV MdD2t8RiVrZuA7QVttF4P rgnV5PRNpzAIn OQggIUU3T09zg7M1IMSyX GFeRKF3mHJ9rB8wdFajsu ogbGVmdDsgdmVydGljYWw lDRggB239LLLy nQwfZELxmT7dRYQwaGJkp RryXO1jETAglnppAl7RLS zMXzkmNvXOE2kLUONPMW8 0LM03mTAxr9Y8 zEO6U5JeSUJfqpwxrimmd AB2UGCvFIMweS36bHHlTO lbSr3uz8B1n615BZVtRHL auD12Iz4kkLtd YUXnbVDJiF3jkxegu1gic sojZsHbFBCcNFj3INo1VB GrbYymClEhYUU5QlD7JRJ 2gKKyjR6fkMks qkjmkV5aPuz+MDgvMjEvM Hj0YBygvPN+GRKsWHL5hA kbICuvCSIqxG4kONNmQ2j 6MxOpGbV3JLqw S9ZuQVOnkbcjVb71iG6sT zViSpA2YPerY5AioxL9IN AulIQxCNskBRC9I11lk5B 9BZWuHRJjBHY6 kMY8oW4aqAvffaepnIGlq DsgdmVydGljYWwtYWxpZ2 46IHRvcDsnPjMyIFllYXJ sTZ78OP31dYYs a9O0rUD0Z0XpYPJzhnbed mfuoBE6UWKuJGQgkZ58vF EqNJesIi7fd5K0p268KQE xJOEguB34Fw8o wSkwEJDapPLVyD3jfpneu 0sbzxxjJaXbSOGkGQa3BK v7SEHddApuUfFyKDR5IlY 6OIW6wUAxeD1a rUlnkrtmmQ7nDca+RmVtY CkrJO32UJ99hRJol5G8rZ J1J8JzIHHdcuiqscamkWE 9SCFkEDMruG40 bOIcEKahGn0ka6A6a624S WBoGWKvgT56Zf6ebBhqTQ XqyBYQxD8seivjz1vkbip gIzAwMDAwMDt0 BPn9FSGrfFbxAfBmDPZ7M pX5TXU3lUCotI2sdAtgrf enyJ4tPei+O4V3lPT8wYX udDwvdGQ+PC90 nh41T7VfNiwpQzx4RQTaR FI7dXQ5jR8qLDVsAIgdq8 U8kLP3P1RbzzRqyc0zs2y dHDXhSViqL52v qVZai5W4RRQpjDI7BQPsh KnqFlUyzN15Haz+PGNvbG uue6LiZunlf8nqb4zqkSp 9IjMwJSIgdmFs dJfyLPL9i0NvCh76Z17vU HdpZHRoPSIzMCUiIHZhbG rccu2riW4pXi4+PGNvbCB 2nYH7vX2rUuGo XpW7NQbzZ460CvObpGXrA bpzq5ukb5pfhVp6IwOcLR JtsyMtpDoqECL5a2GhCx3 6H9ZiuLfwn5Go Spz9el52aDQpp8I9cBM2A 3BhZGRpbmctbGVmdDogMC 9aZQLlcrgxJQSinE7tIQE vM7c5JfZfIfU5 MBjcA5OdkwU7EFSdlHKxZ MLxyLXImF9khqzwy1yett boNqTyQMXuYMc0FJx6YRO saWduOiBsZWZ0 TkX0BIQ4rVNpdI6lfRoop bpsvV1pYrl+CFu6k6tufB JhHQ8gpQB4PI87PZ34vGP gk8V5rVX4B5Iz RRHnvfvccidqzWW7WDUsQ TJteM80Ma3hdRbjZd0sXJ KrEBQ8SFEcwCKoT8CkpB3 yOiAjMDAwMDAw P8CaaVVyQFmsY015RDkcF jC8JHZxwyFaZ7HqGMBxgS biFdF0z4N8Py1UDT80MZ9 9PH49fTErp7D0 tIY1T9ZmDNAhsicmnjmug RA6ZOCgOHLhtF68Kc9puT jlTu7hFSSiXCG0TISgcZX cH9RugB7eXzDw VBMwJMEtT3FrmWBvWVrzU 740MGcmSgR4WEUtbdJeY8 CdXOThfQyyTtP3a1B2My2 WJq13WC64FP56 iRRsp0H2lUC3L1PaVVAig jgwxzodaTK2KYFbXDEplE 13We0mrFnmWz5pUNWwMOK 4MKNizEWrR0Va aD4aXmMyCQYaYLYbO8Olz FKdAYymO829RZtbAfJ3HF LtfvMqO2TqWZVtiSjiFrY 3r6N1Wk8VQZul ysa0B9VyIiihoHI+PC90Y ARcZG46jTUdaGPah8bbhV j6ToZmANXiCBP8iGvdIDu xl2OuDXTyZ58v bGFw (more content not included)... Normal [facility] Coding Summary.on 03-18-2021 Coding Summary. CD:[id number] G h0bWw+PGhlYWQ+ER1LRMH jS21gkFWioP8IF1tZVR8Y JJMPWRNLVQ3MWT7yqLJ4K KyaE9LocbUx OmthgCZbGM26EZm9YVB5g JejXYgrtS5wxRRvY6c4Wh OaAA64wA07NNrlBVTuQiL 3LjZpbjsgbWFy S0ypGuPfuKBsXtq+PHRhY mxlIHdpZHRoPScxMDAlJy OvfIvlZG6iUv5uTKLaXKZ vbGxhcHNlOiBj b7wlSNJdLKxnHL5lxLjmU 8MloKJ9CDVou8a0Zd54yX I+DJWvOSA4hAcqYDbfn78 8MmZcp4weTPS1 oCDyUOcdJIJ3Z41gj5Z8H XEnYLGtSQY0nMY3nH9krM rtiqktV6NyvANhDbH3TBO 9dWVeeW7vtYep tfjxdV5bTlo+U71QDR8AE NLEGE2BZzn5T1KiEirsrB I+CM54OJBcIS21gRSljKH op7ffbWu0UsWu MHRbVUZ4dBcgDIlip9XnR ZDqZ99uiDUdl0J8RLIwyD expNZzUcKfxUN9cI2iALe tjzhsx9lpajat Vhbeu3fomc56kK82F19tR IsqKXUsJPE8UFRgRLJjkI doqe2ixR6yDh3+CVsnp4w vv5vemBs1ErYh ZJYcnpXdaZqfCKD3i5XeQ e35P2FdhMzdl5FpGcw8oq 49cHOra2D5kBA1FPjfKXS xnZ8bNZhnLmE8 NABzIlSqoK95tEBuDSwpR p4iwHwwbYdgBN9mAYUdjb xvWGWvvQ6sFFIthWUejSi oES1xAJVswilm i892LfErUTZ3NAXvxZQzA 6AbsR5yMeAqMANiUPIyC2 IxlZRvARxoR504DZqcJuR 1LCClmzIiR1Bl XTMbuJqhOkY0f0K5Up6Ge 5YoyxjoVBC7UQhpSXUyQt C3GhHwRyC5I7AzPey0SNJ tnCobQQ7fZ9Yp XMFdjwyuvyuupPI2VUXwJ LFpfM60fZNfIBmbGn2tk6 D0e491ZPCrZYFqlC44Dj2 udDogMTBwdCBU eF9bipfyd4trruwsZtZiU MLcJPl1GUj4TKPwpOboTp IxLFE6CwL5WVW9cWTmcZ9 jcBvgyhioeR3u Oyc+F97jqY6gGXV4FHX3q arrECEmvlRmXD73MN88S3 RyPjwvdGFibGU+PGRpdiB ewWmwXC3zQhOq p2ykn8UpQXkrR2QsVHJeC YjlYjy9NLVuGSB2bUW7pH 1gCGViXHqrd3M2pND2G7X mggIjeg8am5ot UJHqMKkkX78chALcn3E5B ZQhyMA1UYRnlOvkByBfuE 93Oyc+MGTjhUtul2VyKnx zw7vgj2ogvJn3 IdDxFCMaxdOsbBwmETN4v 1QjGb25A31fRZvwHYLqYL LcDQHhZSAzyAzkuw5wyP4 wIi8+PGNvbCB3 mKJ6tQ7aHRBpBjH2YBojG 255XiMtcJRxYqrju8aih8 kwrLw0RwEyXGCnlzHrlJg wVWJ7p5NrAw22 W44hSBqqRLEuKCEmZGAnO JHlmTyrja6naG7kUe7+PC 7kz5hsrj83hZ13cUR+PHR kRUU0zKfbHYes EVJgiG8hSEwkUxU7YFBtM uElvV72rCLhJKpvLw8iaB ghaVblQY0vBJPfufbme65 8GwRac9swREAa dFAjXSwdLKH0W81kt5D8F ZUiLTDoCWV0kHE4uC2jiB lnbjogbGVmdDsgdmVydGl oRGlwUMbxB543 IHRvcDsnPlBhdGllbnQgT hUpVTp1M8HrYzq3RLXwoF pmYG3kwXIoAXjaFj0tjSr wzUkcXF2yWWRj fdmye579DcKin1nwMJGuk UJrXAwgSMD7B24ya3X8PJ ZzLSArTGZ1nCL9gY0nkCw nbjogbGVmdDsg xlGcdPwrTVzrIHupS897G HRvcDsnPkJpcnRoIERhdG D4RJ11TV56jMYid8U5nRJ 9O7PzVVSvtqsf bpvprSM8EQBsFYNahH02A q7vnDldDm5iDXDsQTF4IP RhsHHhP0SxlA5wMsVgLAQ zPRCnA2XmvYBi QTsgS436DRlzNpF3AYUpr aOnU7LdQOZycYgyKaK1a6 H2Fj0GD5Q0LH23LI98qJB js0L5fVA7J6Qx WWRdycgoobaagJF7XKFwE IKzgI55Kc0qoEblJn0qKU LjSQQ1PKBlzGBpI9OivX0 yOiAjMDAwMDAw B5EpdAKzQFuxX717NQsmZ gT2GGRabdBeC4EyMUUioT gnHlJ2r2S1Sa3BNVa7FQ6 1TR49cMKnf9Y4 mVG5D9SbLHQbotjezzybr PB2KCFwAPQvdI68Eg1gtZ qgGt2pMWVfTEG9FNXgaTF lL3DrkH7fUlUo DSRiZVKoR4VrxFHhVLviH 231YZtwSeK7CSVglgZyZ3 TiBFYdyYaaAmK4y7G7Ru3 CRGWjML12KRR3 jLC5IV27DW87Z4ZaNqlsf GFibGU+PHRhYmxlIHdpZH RoPScxMDAlJyBzdHlsZT0 pCv3bWZElFPPm xNfetTFiLbKvu1pmTKSyV ThaOR5wtJymB2YruBD2AD Mcz0g2Dx79Z99oR6VibKC +DYJnpWO9wDM1 tR6xGrCjBhQ2XTpzX297E cVuxTXkWiing7apd0puyB u0SpI3PWTsawIslTvvHHN 8x2QuWv89C95r IHdpZHRoPSIxNSUiIHZhb Yrxaa5psK7zPp6+PGNvbC Y7rVS8fO0nStOlCaD7WHd cI736UlXnqGMa Yeoix1kbw2cvhJc4IrFsC ZBdiqAppUwwQNJ2m9KpJh 27P9EuaQcui6CvJha2zc7 6rFPzo6A7fKF1 P9CzHEUyqjlboNSkeJstQ I4yWGBvvbcpDYQyxC9wPK TqD2h5OzNtUsD6WWliP4I rliL7UNGtgLFh PYssIWW0H09jh6K7IMUtF LMcEZB2vQY0wF1iiJgkji ogbGVmdDsgdmVydGljYWw pAFhwY849DOPe iFigKPKrgA5bPUWhuSAbe QokOQ6nUYJyxxlhMj6NZZ bZRdiuHoPDG2gINITQAG8 6CC00aNYol4G2 oSF3Z9SrGHCkzvsmksaux SN3JACmQDKldP95vODzZQ qrAb8dn3E8i631WDAjTCC lwZ29Yk7tiCez QDPnkMHZnX3zudazz8sjt dsxSvTwCLQbRZp3FIl5FP QtrQktQwUhFUJ4JvI0VHE 8jXBeqT2tjCkg tsoshW4aEof+MDgvMjEvM Yg0PVhwaRK+TCIkOWM7hT tmHToiRIEywX6vGDOdZ8c 4SbGgBcN9ICxf Y0DkUGNygvmbIu54vB0wO sRnLzX1FVbmH2OnbyV7FC JhzIEpYYthDFY2E32nt2I 6HPMmQRLsJUU1 pRN5fS6cbQqqhqxhbHGzv DsgdmVydGljYWwtYWxpZ2 46IHRvcDsnPjMyIFllYXJ zMA15SP16mUVc i8M8vVZ2G6NwVUZpstjzf dlipEQ4JPAsQCRazG96eV XnQPwuWr0lc1U8e752FYJ lKDPzuH50Nm9t jEsdBWTaiDDXtX3yvqpfz 1udbtabMmMhNTIgCIk7CV v3SIGcaBeyUwBkVAS5SaB 1GPU4zELmhH8t jMhpgxptbY3yQck+RmVtY PtqZH67RA87iYWoj8O3cE G4Z6KwCVFcttuhurnycBS 4OBUnPOXovT45 qGXtFZqcNf4np7I4i512S FDzPGAucQ52Vi7zhGfiVZ HigVSZgB4zxyjoi5kdbuj gIzAwMDAwMDt0 BMq2ECUvlMxwKpViTWF7A xU3BQO9xLKrbO3vpVimyy amqC2bPlf+UW4trslhqeK 7EC81KW16W7Vh PjwvdGFibGU+PHRhYmxlI HdpZHRoPScxMDAlJyBzdH rcKD8vOi8nMZJjYSBpoBf emLGmKzUyw9hy JGExVUhuCB7ptXjxX0Kir JU4CCSeh7e8Vl82B70kI5 JvdXA+IPTziHF8hTS4cG7 fNfUwIeM9JXoc Y271UuKiiBMpDoffd4wch 0wpuBg3ZxNfSWAevdBtuF wfXSA0d8RdEl21Y81sGZl pZHRoPSIyMCUi XTFllTbeyb4cpA6tXa2+P LCykUZ6eQE0aY2oLeXiEi E0MQyoQ674CtMhiTYjPuj bK74pG0KdvTP+ MMAmMgd3LFKmcObnYN5pk NZwAVxmVi6eWKX7YrRzGv WcXFyxK4OeGSPznzimelh amSW9AZKdGHSf fM20Ry4nkMqvAs2rATOxZ YE6PWQtoMGwP0PihG5nSf SxOEVzHLIoW1FqoCVnORa pV291XXgmRhG7 FYAyjdIgN0XiNSDvmXxcX kF2e6R3Ol8KbUoxmFRoYM 3zJzOzKLl7E5BnZsi9TKP wbBwjKD1uzWQu HVrvNz9juIgkpEcnNJ2jG EMrnleyu565ObSgg7brTJ VtxXKsPUbbDYD8V26ft8H 2CXOyHIOiYGE7 sPV6aU5stSlfljgyrAPqn DsgdmVydGljYWwtYWxpZ2 70MXOjkEgtLxPKPcb2U1X fNwn0KICddKnf DP4wbDZfZMpdOa9wsTezv TrhPV4dJMFvbbyvx956Zr Bdd1frMZOfnLEiMTpeYGD 5Q17mu8U9UQFj ZDYqFRP4kJA8tA1uqBtdi jogbGVmdDsgdmVydGljYW edXIcxJ389IHFobFpgHj0 SEcc8K2MeYeq9 SXZenBpfIB0hvTTiYSdfX p7lpUrzcCwgPE5oTHCnhb xha951EvZpj7hiVDLhkVA yJIywSCT2J61i i1O4RSTiLQHpYHY9aXI3d B5saEgugluhtAIueUlmla DpzXqnKZinHUkyA778GSE vcDsnPlBheWVy OjwvdGQ+SF58zx77U8KdB juwEtq0UEWzQXZ8sOP1bK 0fXUWkAMsil6P0lAW6O9P omeZzta3ww1cp YXBz (more content not included)... Normal [facility] Coding Summary. CD:[id number] G h0bWw+PGhlYWQ+PU0DHKK oU02ycQRoxR5CQ7dWVV0D ZPJNCWAHNC0WYP3jwCM6R GrdD5FhdaJr UhznqVAaRC15ENf8EDN5g DlpLTesaM2ppWSjU0x4Lv YlGJ75vH91VQwvAKZhWzV 3LjZpbjsgbWFy Q6fkOkHysULrEbr+PHRhY mxlIHdpZHRoPScxMDAlJy GmvTccYV7sTu8sIHNrOQS vbGxhcHNlOiBj o3ilYFFkKSgmQV6niXpcB 1SubGN4KPTxg7k0Fr94pN I+ERGaZKA6lNdlZUlny87 3XxAog9drKKX3 jPVjSYqqAZW8R46pf3L9Z ZDgARLoZSF8oEQ0fB9cdN dwqeikZ3YjkFLsUeS4WQN 9iPHsbQ2sbVth bivxmB4dRno+O51VKZ1AN VUERH0VFrm8O4YiNveulJ I+GJ31XIVdYZ36oOOsaEQ ia0bdeQl9UwEt EYFuOAV2vYanLZkyt2SfX IBlN34ocLVtj6N7QRFysZ gwxABfZwLwcKC9sF2lAWh mlhoek5tsgvuo Deooy7hcev04kI88V22hK WmiKMJwTVH0PRKlAQKetZ wxoo7xrY3aCq1+ZGpks5c um9zvuHf2XoKb YOTtyyVfnHzlKTQ6w6DpS j90L0IroFtpv5NyKfu2ka 10xYCno5K4bUS7USoqKON quU8vXWxfNgG0 WMJxPvCqlF03uUJhZNbsA a7xxNhoaDblUN9aMLNwwa viXAXkvK2kGSSkrUWunSz qMO4bBEYsfceh a259CaLbYEK7VYInvRIjA 4CttF9wSmVuACSpOIYbU9 NcaUDtDUpkZ927FNvsCjO 3ZTVzpqFhK1Bf VLZvdQpzZkJ5x4I0Ob6Tq 4PezelxYAJ5MQbrDWVmHc C5AyRiJgN0S8PlPuw8FGT wfYnmMO8tH6Xr KNJykyoeobnxeDD6MHTjZ YWwcB95cXPsDGvgHo2nw6 D5i428VRPhFBMijD38Xz3 udDogMTBwdCBU rC9pjuzcg4xzhhqyJdWuR SFwPFh9CDr3HAHnvWkcWf YpHIY1LlN2PCH4kCJpyG0 exTnanqgyfW7t Oyc+Z43peF0aTSQ0OHE0d bqsBVFyfwHxQA51LG95I0 RyPjwvdGFibGU+PGRpdiB zsKxzJM6kXqPj c3ngb4QtAGsmN1RyHADgH NhtXvf7NMLcPZY7aHP4xA 7aBDAeTXiji0K4aBS5B7I thrUuuv0gd8sm ZJEwZRpxH42qlTEry1R2B EQffCE8UFVeoEsoOkCmyT 93Oyc+WQOujKlmi8SyEfg kb3alj8mcjRo6 QzZoPPOqstLloPrbZTJ9m 8WhDx55U73tTRbbBSOeMS ZzFLQtQTItxGqoeo9kxA9 wIi8+PGNvbCB3 oFG6iS1eUSLdFxA9AIvbS 121ZzMvzSCdPemhf9jkj1 lszRe6YpDoSVEawcFjcHy yWBF0h1FkUt36 B46pUVhrBABiLYWnSTIrU EOhdUnchw4mmY6iTp0+PC 3xe7xlgz72tE50lYF+PHR xMUU8pZubBHay KKRyaE5kHXuvGxN0JOReT xCjxO42qVEeBHluVx5djS qpxKcfTL9wVTIbryyxv70 0WtSfj9kiXAGo yAYoZAmsEWQ5O62st4A9T LMcMEUaWCY4mVC1kK6xoB lnbjogbGVmdDsgdmVydGl cXAduDUauK012 IHRvcDsnPlBhdGllbnQgT yUlWSp7Z1YqUue4QRDbwD dtCS3kdXQiPIzyIq4caFy huVmrUQ0bOVUr immle253KvLep9xfFVUqn AEsSOgiCCO0X32it5S7RM AiKMHhIEY4vWK5oI9oqLw nbjogbGVmdDsg mkIniOhnCQohZAtmZ067Y HRvcDsnPkJpcnRoIERhdG K3RN50MU66eYTew5Z9zXG 4Q2VfZGSyjewu ypsvsEE6SNBpENIgjX74D o0imUmeBc1sCSBoCUW4QY MndUHjO6DxoB4uVaRdQNO bDHDeJ3BtlHVs NUxlL359PWylBaC5ZZMbo qCaI9FhLDSvkTjmVcQ4r1 H9Go4NR8T2WI36EE13yDF it9O5sAX3H8Cw QWRiiazdldpkfEJ8AGEsX JGiuG29Cn1enOcxWr8hXC BaQIN7DTDuoVPsD5EsaY8 yOiAjMDAwMDAw R7QcqCUaOIzmP368MQahN gB1AWYuzuYqL4OaFYQcnZ yeJdQ3h4H3Zv1UTWu0PX2 8DU72bIUrw9N9 jAM8T1UlLHUpjzzhzqiqf UR3JBKtGNAejO02Zb4ocE ikBh6iYFNxODC5JUZwoSP tL3HyrN9dLgBj CVXdNQPnT5TlrULkVVagW 215OWspXkW6NTAfmnQpN6 LwWLNunTdfUlJ1r6X3Nq7 NBEHeTX33IKO8 mKR9AE23HA52E2GmTorrd GFibGU+PHRhYmxlIHdpZH RoPScxMDAlJyBzdHlsZT0 cKh9iMLNxTOVj mGsyhVYrKuAjs5vyGXEyX IumQN8kxApwF3OwwWV0NP Lfm3w8Gj05H02rD2TpcDL +CYYqlGA2gDF5 uZ6wXrYhIjV0EBebZ899I jUiuVBwBkmfw3mwi0nnrZ z9HdE3HPMwzbCxzUyvSOH 7d9SaHm64C19k IHdpZHRoPSIxNSUiIHZhb Jzuia7rqF1lOf3+PGNvbC G2sMZ5sO4hDcQhNaK4AGc oG669BvTaoNOh Ggaqm4pdd7zghBq6HvLjC LPawmEtcUciSLV9i6LfQl 06Z7KrnTjpu4DmUgb3gx0 8aUPwx3H9uJH0 Q0VaERAicjxpxNMiqFmrW I6qIUPtokqqMWSpjU3aMJ CmD8r9KnPjBsJ2SUsmH9K qltN3AHYowIXv LLytXKC3I83qj2U0ASHxP ZZrMCA2eMV6xN5fzShzyx ogbGVmdDsgdmVydGljYWw zCLgmQ555KEHt xNhgMIUccF8pOVUemKGnq UvgHP1bGVJcpuwhZm7JMZ aRQcrpJvODJ4cZNNRXSH7 0UC04tBBkd2R7 mHI5D1ZqSOHptnzlewrpe RN6CUDnEICthY11oDZqEE oxSx3xd4U9d822HURvSZI anO56Ig0gxCsy SBShzQGEmM9wkeues5plj wpsXzAcOAAoLWo4BKw0SJ AqrQneZqTfAXD4FhB9HAC 8oZHaaL6wrWkg frjrrQ1zTgh+MDgvMjEvM Av0ECvttTP+EWMjBPG3dO jzRTskKHOdhO0pNGFsP8j 4TyAgLvJ3YBws Z9ZhTINejbfiIq32sI2jM jJvSiJ6OGdrO5CbosV7JK UzyBJxUPobNUF8C06ns9T 1QRDhZQCrGGK6 gAS0zJ7tvQigqwyaxHTpw DsgdmVydGljYWwtYWxpZ2 46IHRvcDsnPjMyIFllYXJ kGR58HB40iQQm h6V2mSW7N4CmDGZgjoefg zeyfJN6ZYZhRMJeaW23xC EjGCqvFj9wx5P6c743JLQ qTKBafM67Ot1x wEquCDNsuKOUeF2ayaquw 4xiqrmeAfHvXCJzNSl5SH j1YGEbyAxvElArFSV3HuW 7QYM9jWCgiT3o sTcyepnxlT4yOom+RmVtY OamNP04NS66zDDeh3E5fD B0Y8OkJLWovqtmuzxhqKC 8XHVgBEZrnY00 kOHhSLkaJv2is2X9h782Q UDnAAVreO46Sd0bwXdtIZ KzjYSWcY7mbxuik1fwmpn gIzAwMDAwMDt0 BNt7ZALagNoiOwXrPAD5A jN5JCL0uOWviE5zxLgvqe jwvW8wUig+HM4sbnmkdwZ 5GJ00VC76Z0Ue PjwvdGFibGU+PHRhYmxlI HdpZHRoPScxMDAlJyBzdH xmEK2eJw0bUTPkACEwvIa hqMHbDeTmr2gt QOHiGLwaYU0vlRfjC5Opp OB6WLRew9g3Jo34A23xQ3 JvdXA+UBSttMG5rXT4uB7 wZqTnFnD7EGgc I605RoUnbCZxSmxlz9rng 0ygfGa7TgMoCIAtfuWaiN buDCP2u2PtTd16C15qIGd pZHRoPSIyMCUi IZRfwVrdri4msV9yRd3+P LSoxCN5qFY1uM8sHvUfEx T8NJepG040CxNmmZKsUcy nQ01fR3GklMF+ AGFiDyq9YHFyqIowZI7rd AFiLDctXp0aJJP3JuSaBg OdNWuzD3AlLAPsnxvhazt suFQ8JFNnCWEs xF09Lw0snQtrSl1mRJKwB CC6RBRaaUWmY5FmqB2aOy WmPXOtKRFtR9TunHIzZPy fS707WKplPgT8 GGOnrtWtN3AoSJHtoYxzG qK9d2A0Am3PbGbhkUVsAY 7sAhOeVAt8N0GoIai5TKZ fqOxiNR8czETh AJbtIz5wsVzhkMgfCQ1lP UThnaebc498IbOoy5ycRN KeyPBpHMfhSSL1R20jb9D 0HCBkVEHiHFN7 wNZ3vJ4ghVfmxlwatRCtm DsgdmVydGljYWwtYWxpZ2 31XGJraMedSxZFSjt8O6S kBiq1SLQspBlw UR4qtCLaMKutCy4elNgpn BaaJC3lIYOsociws800Ro Tyu9tmJPBrbALwCXpiJES 1F30ee7U9CXFu HZQcJPY1xDV5cN9axViez jogbGVmdDsgdmVydGljYW gtEQutY051MBQkyRltYh9 ZSvt8B2QnLlf9 SWPbtDsaUN4xyQEqJXjfZ n7ioJueuMvwKC0nRCDpiu opm526OnQmm7clOFWteMS jPWzeXUP5B13y u6Q0VJOdCGIfLNQ0iFL6d H7nvBqeprvcsBDvdDgiro KjqUprLGyqFByhD185MSE vcDsnPlBheWVy OjwvdGQ+JO81zc65P8YwZ putOli6EGQwWDN1wWU7qG 6hKYXgHIcke9G2iHL3T1T nelFtou2ga4jm YXBz (more content not included)... Normal [facility] Auto Diffon 03-12-2021 Basophils/100 WBC (Bld) 0.2 % Normal 0.0-2.0 [facility] Comment on above: Order Comment: Order Added by Discern Expert. Performed By: #### 2 [id number], 5531374, 3022100, 0755689, 60201647, 05228826, [id number] ####[address] [address] Basophils/Leukocyte s Auto (Bld) [Pure # fraction] 0.0 E9/L Normal 0.0-0.2 [facility] Comment on above: Order Comment: Order Added by Discern Expert. Performed By: #### 2 064923, 9237016, 7967167, 1812697, 06495148, 56392264, 85738465 ####[address] [place] [address] Eosinophils/100 WBC (Bld) 0.0 % Normal 0.0-8.0 [facility] Comment on above: Order Comment: Order Added by Discern Expert. Performed By: #### 2 199604, 6595880, 5516155, 5164043, 46508114, 46113435, 37737799 ####[facility] [address] [place] [address] Eosinophils/Leukocy jacinta Auto (Bld) [Pure # fraction] 0.0 E9/L Normal 0.0-0.5 [facility] Comment on above: Order Comment: Order Added by Discern Expert. Performed By: #### 2 210612, 1259174, 5866117, 8327241, 22770780, 45260989, 83966711 ####[address] [place] [address] Lymphocytes/100 WBC (Bld) 19.4 % Normal 14.0-50.0 [facility] Comment on above: Order Comment: Order Added by Discern Expert. Performed By: #### 2 554520, 1453607, 7331715, 9913585, 19587233, 38988625, 63387891 ####[address] [place] [address] Lymphocytes/Leukocy jacinta Auto (Bld) [Pure # fraction] 1.0 E9/L Normal 1.0-4.0 [facility] Comment on above: Order Comment: Order Added by Discern Expert. Performed By: #### 2 713565, 3841968, 2129622, 2373913, 08848757, 69195445, 60008219 ####[address] [address] Monocytes/100 WBC (Bld) 6.9 % Normal 4.0-14.0 [facility] Comment on above: Order Comment: Order Added by Discern Expert. Performed By: #### 2 396591, 6943892, 4792073, 7295676, 98669705, 66134625, 33125841 ####[address] [place] [address] Monocytes/Leukocyte s Auto (Bld) [Pure # fraction] 0.3 E9/L Normal 0.2-1.0 [facility] Comment on above: Order Comment: Order Added by Discern Expert. Performed By: #### 2 195597, 5924902, 6130263, 8421564, 77584715, 42199398, 12373162 ####[address] [address] Neutrophils/100 WBC (Bld) 73.5 % Normal 36.0-75.0 [facility] Comment on above: Order Comment: Order Added by Discern Expert. Performed By: #### 2 847563, 6225129, 8477419, 5807239, 12315380, 24970041, 41689227 ####[facility] [address] [place] [address] Neutrophils/Leukocy jacinta Auto (Bld) [Pure # fraction] 3.6 E9/L Normal 2.0-7.5 [facility] Comment on above: Order Comment: Order Added by Discern Expert. Performed By: #### 2 506547, 0210785, 6499065, 3067947, 60628721, 54541726, 91465075 ####[facility] [address] [place] [address] BMPon 03-12-2021 Creatinine [Mass/Vol] 0.8 mg/dL Normal 0.5-1.3 [facility] Comment on above: Performed By: #### 2 357925, 1347261, 7715388, 2644472, 19151992, 81007805, 45405947 ####[facility] [address] [place] [address] Urea nitrogen [Mass/Vol] 8 mg/dL Normal 5-21 [facility] Comment on above: Performed By: #### 2 715625, 7535315, 9528864, 1908199, 25854598, 92012625, 33176932 ####[facility] [address] [place] [address] Urea nitrogen/Creatinine [Mass ratio] 10 No Units Normal 10-20 [facility] Comment on above: Performed By: #### 2 400990, 8511913, 2616105, 4189706, 54298066, 39285754, 59470815 ####[facility] [address] [place] [address] Anion gap [Moles/Vol] 16 mmol/L Normal 6-16 [facility] Comment on above: Performed By: #### 2 477211, 0183954, 6600727, 1655551, 33432068, 42080495, 51414516 ####[facility] [address] [place] [address] Calcium [Mass/Vol] 8.3 mg/dL Low 8.9-11.1 [facility] Comment on above: Performed By: #### 2 247242, 3664907, 3007044, 6631921, 04533180, 08166845, 38888055 ####[facility] [address] [place] [address] Chloride [Moles/Vol] 99 mmol/L Low 101-111 [facility] Comment on above: Performed By: #### 2 257316, 6139262, 6847668, 1931433, 04702238, 34609268, 23112198 ####[facility] [address] [place] [address] CO2 [Moles/Vol] 21 mmol/L Normal 21-31 [facility] Comment on above: Performed By: #### 2 558024, 6051054, 2565155, 5168730, 74186912, 30794591, 50457570 ####[facility] [address] [place] [address] Glucose [Mass/Vol] 127 mg/dL Normal 55-199 [facility] Comment on above: Result Comment: If t his glucose result represents a fasting glucose, interpretation should refer to the following reference range: 55-99 mg/dL Performed By: #### 2 749308, 1274738, 6543736, 4624340, 90368483, 21123379, 56628374 ####[facility] [address] [place] [address] Potassium [Moles/Vol] 3.5 mmol/L Normal 3.5-5.3 [facility] Comment on above: Performed By: #### 2 467368, 3665470, 6555150, 0457759, 98580291, 26407988, 94209605 ####[facility] [address] [place] [address] Sodium [Moles/Vol] 132 mmol/L Low 135-145 [facility] Comment on above: Performed By: #### 2 006660, 0444093, 8845568, 2978676, 85790738, 05749757, 97778599 ####[address] [place] [address] CBC w/ Auto Diffon Erythrocyte distribution width (RBC) [Ratio] 14.2 % Normal 10.9-14.2 [facility] Comment on above: Performed By: #### 2 331128, 1727394, 6124316, 1099571, 63576425, 45829484, 95506895 ####[address] [place] [address] Hematocrit (Bld) [Volume fraction] 39.9 % Normal 34.0-46.0 [facility] Comment on above: Performed By: #### 2 178320, 3704992, 8915915, 2904347, 75618361, 09384466, 55447146 ####[address] [address] Hemoglobin (Bld) [Mass/Vol] 13.0 g/dL Normal 12.0-16.0 [facility] Comment on above: Performed By: #### 2 513487, 0504096, 9599610, 9185846, 67969089, 75034938, 58102258 ####[address] [address] MCH (RBC) [Entitic mass] 27.3 pg Normal 27.0-34.0 [facility] Comment on above: Performed By: #### 2 879749, 4208174, 9515741, 3031889, 15756411, 29815688, 11270094 ####[address] [address] MCHC (RBC) [Mass/Vol] 32.7 g/dL Normal 31.4-36.0 [facility] Comment on above: Performed By: #### 2 606625, 8743522, 2530048, 1799493, 01062391, 10861446, 06636224 ####[address] [place] [address] MCV (RBC) [Entitic vol] 83.4 fL Normal 80.0-100.0 [facility] Comment on above: Performed By: #### 2 956538, 1292157, 3438995, 3283672, 58538936, 22820904, 34314999 ####[address] [address] Platelet mean volume (Bld) [Entitic vol] 7.8 fL Normal 6.4-10.8 [facility] Comment on above: Performed By: #### 2 888565, 4756181, 9045532, 8832712, 63199728, 30363813, 44193643 ####[address] [address] Platelets (Bld) [#/Vol] 188.0 E9/L Normal 150.0-500.0 [facility] Comment on above: Performed By: #### 2 686114, 8897194, 0578656, 8473496, 99835307, 74141749, 43521858 ####[address] [address] RBC (Bld) [#/Vol] 4.8 E12/L Normal 4.3-5.9 [facility] Comment on above: Performed By: #### 2 020647, 8224896, 2217207, 9283926, 25004382, 37316840, 77199071 ####[address] [address] WBC corrected for nucl RBC Auto (Bld) [#/Vol] 4.9 E9/L Normal 4.0-11.0 [facility] Comment on above: Performed By: #### 2 905290, 3419467, 3581669, 5380920, 70465386, 66580214, 53896305 ####[address] [address] CTA Cheston 03-12-2021 CTA Chest Exam Date/Time: [...] 370 Contrast amount in ml's: 79 Normal [facility] Consent for Treatmenton Consent for Treatment [id number] .00CD:127 Normal [facility] D-Dimeron 03-12-2021 Fibrin D-dimer FEU (PPP) [Mass/Vol] 586 [id number] Abnormal 215-500 [facility] Comment on above: Result Comment: Resu lts [...] infections Liver cirrhosis Performed By: #### 2 631022, 6311586, 0977539, 2408563, 00241519, 19728454, 77954700 ####[facility] [address] [place] [address] Discharge Instructionson Discharge Instructions [id number] 1.00CD:127 Normal [facility] ED Clinical Summaryon 2020 ED Clinical Summary [address] [address] ED Clinical Summary Person Information Name: ED MURPHY Judy/[facility] Age: 30 Years : 1990 Sex: Female Language: Moldovan PCP: Tricia Dewey CNP Marital Status: Phone: [phone] MRN: Visit Id: Visit Reason: Fever; Diarrhea; [...] 12:55:56 03/12/2021 12:55:56 03/12/2021 12:55:56 ADDRESS: [address] [place] [id number] PHYS DOC NOTES: MEDICAL INFORMATION: Prescriptions Given: New Medications [facility] [address] [place], [place] [id number], [phone] albuterol (albuterol CFC free 90 mcg/inh Inh [...] Follow up: With: Address: When: Tricia Dewey [address] [place] [address], [facility], [address] [place] [phone] [employer] (1) In 3 days DIAGNOSIS: COVID-19; Near syncope Normal [facility] ED Note-Physicianon 03-12-20 ED Note-Physician Basic Information [...] puff(s), Inhalation, QID, 8 gram, Refill(s) 0, [facility], 173, cm, 03/12/21 9:08:00 EST, Height/Length Dosing, 125, kg, 03/12/21 9:08:00 EST, Weight Dosing azithromycin, 250 mg, Oral, As Directed, Take two tabs by mouth on day one, then one tab daily, # 6 tab(s), Refills(s) 0, Pharmacy: [facility], 173, cm, 03/12/21 9:08:00 EST, Height/Length Dosing, 125, kg, 03/12/21 9:08:00 EST, Weight Dosing dexamethasone, 6 mg = 1 tab(s), Oral, Daily, X 7 day(s), # 7 tab(s), Refills(s) 0, Pharmacy: [facility], 173, cm, 03/12/21 9:08:00 EST, Height/Length [...] Tricia Dewey In 3 days [address] [facility], [address] [place] [phone] Business (1) Additional Instructions: Problem List/Past Medical [...] Past, denies, (more content not included)... Normal [facility] Comment on above: Result Comment: Elec tronically Signed By: Tal Gonzalez DO\.br\Date and Time Signed: 03/12/21 12:46 EST ED Patient Education Noteon 03-12-2021 ED Patient Education Note Normal [facility] ED Patient Summaryon 021 ED Patient Summary [facility] [address] [place], [place] [address] Patient Discharge Instructions Person Information Name: ED MURPHY Age: 30 Years Arrival Date: 03/12/2021 08:55:19 Discharge Diagnosis: COVID-19; Near syncope Primary Care Physician: Tricia Dewey CNP Provider Information Primary Provider: Tal Gonzalez DO [employer] Experimental Mechanic:None The exam and treatment you received in the Emergency Department were for an urgent problem and are not intended as complete care. It is important that you follow up with a doctor, nurse practitioner, or physician?s operations assistant for ongoing care. If your symptoms become worse or you do not improve as expected and you are unable to reach your usual health care provider, you should return to the Emergency Department. We are available 24 hours a day. ED MURPHY has been given the following list of patient education materials, prescriptions and follow-up instructions: Follow-up Instructions: With: Address: When: Tricia Maco [address] [place] [address], [address] [place] [phone] Business (1) In 3 days In the event that this physician does not participate in your insurance network, please consult with your insurance company to find a nearby participating provider. Patient Education Materials: A MESSAGE TO ALL PATIENTS REGARDING OPIOIDS PRESCRIPTION OPIOIDS: WHAT YOU NEED TO KNOW Prescription opioids can be used to help relieve chxilvzj-wj-mfomsk pain and are often prescribed following a [...] be struggling with addiction, tell your health acute care certified nursing assistant and ask for guidance or call [employer]?S National Helpline at 1-433-490-HELP. v Source: [place] Department of Health and Human (more content not included)... Normal [facility] PT & PTTon 03-12-2021 aPTT Coag (PPP) [Time] 30.8 second(s) Normal 25.1-36.5 [facility] Comment on above: Result Comment: Hepa rin therapeutic range (represented by Anti-Factor Xa activity of 0.2 - 0.4 U/mL) corresponds to PTT of 56.6 - 109.0 sec. Performed By: #### 2 680268, 9381703, 8885076, 9605519, 76130591, 50474032, 91489141 ####[facility] [address] [place] [address] INR Coag (PPP) [Relative time] 1.2 {INR} Invalid Interpretation Code [facility] Comment on above: Result Comment: INR results are specifically intended to assess patients stabilized on long-term Anticoagulation therapy suggested INR?s ?Less Intensive Anticoagulation? 2.0 ? 3.0 Conventional Range 3.0 ? 4.5 Performed By: #### 2 611074, 7131968, 6631212, 6490736, 54613302, 69904262, 74432405 ####[facility] [address] [place] [address] PT Coag (PPP) [Time] 14.1 second(s) High 10.2-12.9 [facility] Comment on above: Performed By: #### 2 707303, 5323690, 1342651, 4177413, 13775243, 44033592, 85701574 ####[facility] [address] [place] [address] Troponin 0 Hr.on 03-12-2021 Troponin I.cardiac [Mass/Vol] 3.90 pg/mL Low 10.10-27.10 [facility] Comment on above: Result Comment: The 95% CI (Confidence Interval) PPV (Positive Predictive Value) for myocardial infarction in females is 38 pg/mL, in males 51 pg/mL. The results should be used in conjunction with clinical conditions of myocardial infarction. (Access High Sensitivity Troponin I Instructions For Use, Randell Phoenix, November 2017) Performed By: #### 2 [id number], [id number], [id number] ####[facility] [id number] [place] [address] XR Chest Single Viewon 03-12 XR Chest [...] DO Transcribed by: ROBERT Technologist: FAUSTINA Shepherd [facility] eGFRon 03-12-2021 GFR/1.73 sq M.predicted among blacks MDRD (S/P/Bld) [Vol rate/Area] mL/min/{1.73_m2} Normal >=59 [facility] Comment on above: Order Comment: Order added by Discern Expert. Result Comment: eGFR is race adjusted. AA=. Performed By: #### 2 [id number], [id number] ####[facility] [id number] [place] [address] GFR/1.73 sq M.predicted among non-blacks MDRD (S/P/Bld) [Vol rate/Area] mL/min/{1.73_m2} Normal >=59 [facility] Comment on above: Order Comment: Order added by Discern Expert. Result Comment: Marine Equipment Preservation Inspector nandini kidney disease could be indicated at eGFR's of less than 60 mL/min/1.73m2. Kidney failure is indicated at less than 15 mL/min/1.73m2. Performed By: #### 2 [id number] ####[facility] [address] [place] [address] Consent for Treatmenton Consent for Treatment [id number] .[id number]:127 Normal [facility] Physician Orderon 03-10-2021 Physician Order [id number]# 1.00CD:127 [facility] XR Chest 2 Viewson XR Chest [...] FINAL REPORT Dictated: 03/10/2021 4:27 pm Jimmy Daivs DO Signed (Electronic Signature): 03/10/2021 4:27 pm Signed by: Jimmy Davis DO Transcribed by: ROBERT Technologist: ISAAC [facility] Vital Signs Date Time Vital Sign Value Performing Clinician Oseas dobbins 09-17-2024 10:49-0400 Body mass index (BMI) [Ratio] 41.97 kg/m2 Aquiles Adrian DO Work Phone: [facility] 09-17-2024 10:49-0400 Body weight 127.06 kg Aquiles Adrian DO Work Phone: [facility] 09-17-2024 10:49-0400 Diastolic blood pressure 70 mm[Hg] Aquiles Adrian ThoughtLeadr Work Phone: [facility] 09-17-2024 10:49-0400 Systolic blood pressure 112 mm[Hg] Aquiles Adrian DO Work Phone: [facility] 08-27-2024 09:21-0400 Body mass index (BMI) [Ratio] 41.52 kg/m2 Flower DE LA PAZ Work Phone: [facility] 08-27-2024 09:21-0400 Body weight 125.7 kg Flower DE LA PAZ Work Phone: [facility] 08-27-2024 09:21-0400 Diastolic blood pressure 70 mm[Hg] Flower DE LA PAZ Work Phone: [facility] 08-27-2024 09:21-0400 Systolic blood pressure 120 mm[Hg] Flower DE LA PAZ Work Phone: [facility] 08-01-2024 09:31-0400 Body mass index (BMI) [Ratio] 41.21 kg/m2 Aquiles Adrian DO Work Phone: [facility] 08-01-2024 09:31-0400 Body weight 124.74 kg Aquiles Adrian DO Work Phone: [facility] 08-01-2024 09:31-0400 Diastolic blood pressure 72 mm[Hg] Aquiles Adrian DO Work Phone: [facility] 08-01-2024 09:31-0400 Systolic blood pressure 112 mm[Hg] Aquiles Adrian DO Work Phone: [facility] 06-03-2024 14:49-0500 Body mass index (BMI) [Ratio] 40.58 kg/m2 Aquiles Adrian DO Work Phone: [facility] 06-03-2024 14:49-0500 Body weight 122.83 kg Aquiles Adrian DO Work Phone: [facility] 06-03-2024 14:49-0500 Diastolic blood pressure 72 mm[Hg] Aquiles Adrian DO Work Phone: [facility] 06-03-2024 14:49-0500 Systolic blood pressure 106 mm[Hg] Aquiles Adrian DO Work Phone: [facility] 05-02-2024 11:56-0500 Body mass index (BMI) [Ratio] 40.28 kg/m2 Aquiles Adrian DO Work Phone: [facility] 05-02-2024 11:56-0500 Body weight 121.93 kg Aquiles Adrian DO Work Phone: [facility] 05-02-2024 11:56-0500 Diastolic blood pressure 70 mm[Hg] Aquiles Adrian DO Work Phone: [facility] 05-02-2024 11:56-0500 Systolic blood pressure 110 mm[Hg] Aquiles Adrian DO Work Phone: [facility] 02-15-2024 14:26-0500 Body mass index (BMI) [Ratio] 41.77 kg/m2 Flower DE LA PAZ Work Phone: [facility] 02-15-2024 14:26-0500 Body weight 126.46 kg Flower DE LA PAZ Work Phone: [facility] 02-15-2024 14:26-0500 Diastolic blood pressure 80 mm[Hg] Flower Otero PA Work Phone: [facility] 02-15-2024 14:26-0500 Systolic blood pressure 120 mm[Hg] Flower Otero PA Work Phone: [facility] 02-12-2024 08:50-0500 Body mass index (BMI) [Ratio] 41.8 kg/m2 Aquiles Adrian DO Work Phone: [facility] 02-12-2024 08:50-0500 Body weight 126.55 kg Aquiles Adrian DO Work Phone: [facility] 02-12-2024 08:50-0500 Diastolic blood pressure 72 mm[Hg] Aquiles Adrian DO Work Phone: [facility] 02-12-2024 08:50-0500 Systolic blood pressure 118 mm[Hg] Aquiles Adrian DO Work Phone: [facility] Healthcare Encounters Encounter Date Encounter Type Care Provider Facility Start: 09-25-2024 End: 09-25-2024 Clinisync Result Encounter Aquiles Adrian DO Work Phone: [facility] External Department Unsolicited Start: 09-25-2024 End: 09-25-2024 Clinisync Result Encounter Aquiles Adrian DO Work Phone: [facility] External Department Unsolicited Start: 09-17-2024 End: 09-17-2024 flow sheet Aquiles Adrian DO Work Phone: [facility] Comment on above: 31 weeks gestation o f ; Third trimester ; Multigravida of advanced maternal age in third trimester; Excessive growth affecting management of , antepartum, single or unspecified fetus Start: 09-17-2024 End: 09-17-2024 ambulatory AQUILES ADRIAN Not Available Start: 08-27-2024 End: 08-27-2024 Bamboo flowsheet Flower DE LA PAZ Work Phone: [facility] Start: 08-27-2024 End: 08-27-2024 Bamboo flowsheet Flower DE LA PAZ Work Phone: [facility] Start: 08-27-2024 End: 08-27-2024 Clinisync Result Encounter Flower DE LA PAZ Work Phone: [facility] External Department Unsolicited Start: 08-27-2024 End: 08-27-2024 flow sheet Flower DE LA PAZ Work Phone: [facility] Comment on above: Size of fetus incons istent with dates in second trimester (Primary Dx); Third trimester ; 28 weeks gestation of Start: 08-27-2024 End: 08-27-2024 ambulatory FLOWER OTERO Not Available Start: 08-08-2024 End: 08-08-2024 ambulatory AQUILES R [facility] Start: 08-07-2024 End: 08-07-2024 Chart abstracting Scanning Provider External [facility] Start: 08-01-2024 End: 08-01-2024 flow sheet Aquiles Adrian DO Work Phone: [facility] Comment on above: Second [...] Phone: [facility] Comment on above: Second trimester [...] Start: 04-11-2024 End: 04-11-2024 ambulatory Aquiles Adrian Facility:[facility] Start: 04-11-2024 End: 04-11-2024 Departed Referred Aquiles Adrian DO Work Phone: [facility] Path Spec [facility] Start: 04-11-2024 End: 04-11-2024 Clinisync Result Encounter Aquilse Adrian DO Work Phone: [facility] External [facility] [...] Date Procedure Procedure Detail Performing Clinician Start: 09-25-2024 OB BPP W NON-STRESS Aquiles Adrian DO Work Phone: Start: 09-17-2024 Urnls dip stick/tabl et rgnt non-auto w/o micrscp Aquiles Adrian DO Work Phone: Start: 08-27-2024 MLR HEMOGLOBIN A1C Flower DE LA PAZ Work Phone: Start: 08-27-2024 Urnls dip stick/tabl et rgnt non-auto w/o micrscp Flower DE LA PAZ Work Phone: Start: 06-03-2024 RECURRENT VAGINITIS (HTRX) Aquiles Adrian DO Work Phone: Start: 06-03-2024 Urnls dip [...] Start: 12-09-2024 Influenza vaccination Influenza Vacc ine [facility] Start: 09-30-2024 End: 09-30-2024 Patient encounter procedure 09/30/2024 3:30 PM EDT Routine [facility] [address] [place] [id number] Flower Otero PA [address] [place] [address] [facility] Start: 09-17-2024 End: 03-19-2025 US biophysical profile w non stress test US biophysical profile w non stress test Imaging Routine Multigravida of advanced maternal age in third trimester Excessive growth affecting management of , antepartum, single or unspecified fetus Expected: 09/17/2024 (Approximate), Expires: 03/19/2025 [facility] Work Phone: Comment on above: Expected: 09/17/2024 (Approximate), Expires: 03/19/2025 Start: 09-17-2024 End: 09-17-2024 Patient encounter procedure 09/17/2024 10:20 AM EDT Routine [facility] [address] [place] [address] AdrianAquiles palmer, DO [facility] [address] [place] [address] [facility] Start: 09-17-2024 End: 09-17-2024 Professional / ancillary services management 09/17/2024 9:30 AM EDT Ancillary Procedure [facility] [address] [place] [address] [facility] Start: 08-27-2024 End: 08-27-2025 CBC W Auto Differential panel - Blood CBC and differential Lab Routine Third trimester 28 weeks gestation of Expected: 08/27/2024 (Approximate), Expires: 08/27/2025 [facility] Work Phone: Comment on above: Expected: 08/27/2024 (Approximate), Expires: 08/27/2025 Start: 08-27-2024 End: 12-28-2024 US for US OB follow up transabdominal approach Imaging Routine Size of fetus inconsistent with dates in second trimester Expected: 08/27/2024, Expires: 12/28/2024 [facility] Comment on above: Expected: 08/27/2024 , Expires: 12/28/2024 Start: 08-27-2024 End: 08-27-2024 Patient encounter procedure [facility] Comment on above: Arrived Start: 08-08-2024 End: 08-08-2024 Patient encounter procedure 08/08/2024 8:00 AM EDT Appointment [facility] [place] [address] [address] [place] [address] [facility] Start: 07-01-2024 End: 07-01-2024 Patient encounter procedure 07/01/2024 9:40 AM EDT Routine [facility] [address] [place] [id number] Flower Otero PA [address] [place], [place] [id number] [facility] Start: 07-01-2024 End: 07-01-2024 Professional / ancillary services management 07/01/2024 8:30 AM EDT Ancillary Procedure [facility] [address] [place] [address] [facility] Start: 06-11-2024 End: 06-11-2024 Patient encounter procedure 06/11/2024 8:40 AM EST Office Visit [facility] [address] [place] [address] Aquiles Campbell DO [address] [place] [address] [facility] Start: 06-03-2024 End: 06-03-2024 Patient encounter procedure 06/03/2024 2:20 PM EST Routine [facility] [address] [place] [id number] Aquiles Campbell, DO [address] [place] [address] [facility] Start: 06-03-2024 End: 08-01-2024 [...] on above: Arrived Start: 04-11-2024 Urine culture [facility] Start: 04-11-2024 Bacteria identified in Urine by Culture Urine Culture [facility] Start: 04-11-2024 End: 04-11-2024 ambulatory 04/11/2024 1:00 PM EST Initial [facility] [address] [place] [phone] [facility] Start: 04-11-2024 End: 04-11-2024 Professional / ancillary services management 04/11/2024 12:30 PM EST Ancillary Procedure [facility] [address] [place] [phone] [facility] Start: 02-15-2024 End: 02-15-2024 Patient encounter procedure [facility] Comment on above: Arrived Start: 02-12-2024 End: 02-12-2024 Patient encounter procedure 02/12/2024 8:50 AM EST Office Visit [facility] [address] [place] [address] Aquiles Campbell, DO [address] [place] [address] Arrived [facility] Comment on above: Arrived Start: 2009 Screening for malign ant neoplasm of cervix Pap Smear [facility] Start: 11-29-2007 DTaP,Tdap and Td Vaccines (1 - Tdap) DTaP,Tdap and Td Vaccines (1 - Tdap) [facility] Start: 2006 Adult BMI Screening Adult BMI Screen ing [facility] Start: 2000 Depression Screening Depression Scre ening [facility] Start: 2000 Tobacco Screening Tobacco Screening [facility] CHLAMYDIA TRACHOMATI S (GENITO/STI) CHLAMYDIA TRACHOMATIS (GENITO/STI) Lab Routine STD exposure Ordered: 06/03/2024 [facility] Comment on above: Ordered: 06/03/2024 Cytology Cervical or vaginal smear or scraping study Pap Smear Pathology and Cytology Routine Well woman exam with routine gynecological exam Ordered: 02/15/2024 [facility] Work Phone: Comment on above: Ordered: 02/15/2024 Hemoglobin A1c/Hemoglobin.total in Blood Hemoglobin A1c Lab Routine Third trimester 28 weeks gestation of Size of fetus inconsistent with dates in second trimester Ordered: 08/27/2024 [facility] Healthcare Comment on above: Ordered: 08/27/2024 Human papilloma viru s DNA [Presence] in Unspecified specimen by Probe with amplification HPV DNA probe, amplified Microbiology Routine Well woman exam with routine gynecological exam Ordered: 02/15/2024 [facility] Comment on above: Ordered: 02/15/2024 Neisseria gonorrhoea e DNA [Presence] in Unspecified specimen by LYNNETTE with probe detection Neisseria gonorrhea DNA probe, direct Lab Routine STD exposure Ordered: 06/03/2024 [facility] Comment on above: Ordered: 06/03/2024 SURESWAB(R) ADVANCED VAGINITIS PLUS, TMA SURESWAB(R) ADVANCED VAGINITIS PLUS, TMA Pathology and Cytology Routine STD exposure Ordered: 06/03/2024 [facility] Work Phone: Comment on above: Ordered: 06/03/2024 Payers Date Payer Category Payer Self-pay 2024 [employer] - O ANTHEM [id number] 2023 [employer] Blue Shield [id number] 2023 Unknown [id number] 1988 Unknown [id number] 2.840.1.819307.3.579. 2.593 1988 Unknown [id number] 840.1.366722.3.579. 2.593 1988 Unknown [id number] 2.840.1.343633.3.579. 2.593 1988 Unknown [id number] 2.16840.1.267770.3.579. 2.593 1988 Unknown [id number] 2.840.1.979624.3.579. 2.593 1988 Unknown [id number] 2.840.1.922946.3.579. 2.593 1988 Unknown [id number] 2.16.840.1.891958.3.579. 2.593 1988 Unknown [id number] 2.16.840.1.117568.3.579. 2.593 1988 Unknown [id number] 2.16.840.1.673802.3.579. 2.593 1988 Unknown [id number] 2.16.840.1.657856.3.579. 2.593 1988 Unknown [id number] 2.16.840.1.632284.3.579. 2.593 1988 Unknown [id number] 2.16840.1.223769.3.579. 2.593 1988 Unknown [id number] 2.16.840.1.302336.3.579. 2.1286 1988 Unknown [id number] 2.840.1.896638.3.579. 2.1259 1988 Unknown [id number] 2.840.1.962543.3.579. 2.1259 1988 Unknown [id number] 2.840.1.619178.3.579. 2.1259 1988 Unknown [id number] 2.16.840.1.886042.3.579. 2.1259 1988 Unknown [id number] 2.840.1.850654.3.579. 2.1259 1988 Unknown [id number] 2.16840.1.829555.3.579. 2.1259 1988 Unknown [id number] 2.16840.1.815553.3.579. 2.1259 1988 Unknown [id number] 2.16840.1.412833.3.579. 2.1259 1988 Unknown [id number] 2.16840.1.984786.3.579. 2.1259 1988 Unknown [id number] 2.16.840.1.549544.3.579. 2.1259 1988 Unknown [id number] 2.16.840.1.066800.3.579. 2.1259 1988 Unknown [id number] 2.16.840.1.575458.3.579. 2.1259 1988 Unknown [id number] 2.16.840.1.297022.3.579. 2.1259 1959 Private Health Insurance [id number] Unknown [id number] 2.16.840.1.474898.3.579. 2.531 Unknown Erika BEST/MOLINA [id number] Social History Date Type Detail Facility Start: 12-01-2022 End: 08-07-2024 Tobacco smoking status GAIS Never smoked tobacco [facility] Start: 08-24-2023 End: 08-27-2024 Alcoholic beverage intake Lifetime non-drinker (finding) [facility] Start: 12-01-2022 End: 02-12-2024 History of Social function [facility] Start: 12-01-2022 End: 02-12-2024 Tobacco use panel [facility] Start: 12-01-2022 Education 21 [facility] Start: 12-01-2022 Alcohol Comment Caffeine intake: non e [facility] Start: 1990 Sex assigned at Not on file [facility] Start: 02-25-2024 [facility] Tobacco smoking stat [facility] Unknown if ever smoked [facility] Work Phone: Start: 04-12-2024 End: 08-05-2024 Sex Female (finding) [facility] Start: 1990 Sex Assigned At Female [facility] Start: 08-07-2024 Tobacco use and exposure Smokeless tobacco non-user [facility] Medical Equipment Procedure Code Equipment Code Equipment Origin al Text Equipment Identifier Dates 1 strip by In Vi tro route Daily Use in the morning prior to breakfast, 1 hour after each meal for a total of 4times daily. [id number] Start: 07-25-2024 End: 08-27-2024 1 each by In Vit ro route Daily Use to check FSBS four times daily [id number] Start: 07-25-2024 End: 08-27-2024 Clinical Notes 02-12-2024 to 09-17-2024 Alexus Marcial, DIE MAKER - 09/17/2024 10:20 AM BRAIN Schmidt - 08/27/2024 8:50 AM EDTSusan Spitler, DIE MAKER - 08/01/2024 9:10 AM EDTSusan Spitler, DIE MAKER - 06/03/2024 2:20 PM EST Note Date & Type Note Facility 09-17-2024 History of Presen t illness Narrative Reason [...] iron polysaccharides (PROFE) 391.3 mg, Oral, Daily Nyfuxsjq-Ujv-Sc-FA ( 1 + IRON PO) ALLERGIES Allergies [...] 2010 Personal history of other medical treatment [place] teeth removed HISTORY PAST MEDICAL HISTORY SOCIAL HISTORY Past Medical History: Diagnosis Date Bleeding in early 12/02/2022 Frequent UTI Herpes History of chlamydia 2007 History of depression no meds 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 Personal history of other medical treatment Frenectomy x2 [place] teeth removed Social History Tobacco Use Smoking [...] nursing note reviewed. Exam conducted with a bartender server present. Vitals: Estimated body mass index is 41.97 kg/m as calculated from the following: Height [...] by Alexus Marcial LPN on behalf of: Aquiles Campbell DO documented in this encounter [facility] 08-27-2024 History of Presen t illness Narrative Reason [...] Use to check FSBS four times daily Zyaoztqp-Tlm-Sk-FA ( 1 + IRON PO) ALLERGIES Allergies [...] 2011 Personal history of other medical treatment [place] teeth removed HISTORY PAST MEDICAL HISTORY SOCIAL HISTORY Past Medical History: Diagnosis Date Bleeding in early 12/02/2022 Frequent UTI Herpes History of chlamydia 2008 History of depression no meds 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 Personal history of other medical treatment Frenectomy x2 [place] teeth removed Social History Tobacco Use Smoking [...] reviewed. Vitals: Estimated body mass index is 41.52 kg/m as calculated from the following: Height as of 08/22/22: 5' 8.5 . Weight as of this encounter: 277 lb 1.9 oz. BP: 120/70 Patient's last menstrual period was 02/11/2024. ASSESSMENT & PLAN ICD-10-CM 1. Size of fetus inconsistent with dates in second trimester O26.842 US OB follow up transabdominal approach 2. Third trimester Z34.93 CBC and differential CBC and differential POCT urinalysis dipstick manually resulted 3. 28 weeks gestation of Z3A.28 CBC and differential CBC and differential POCT urinalysis dipstick manually resulted Return OB: Patient presents today for a routine obstetrics appointment. Patient is currently 28w2d . Patient states she is doing well but has complaints of being tired due to current . Patient has verbalizes frequent movement. labor precautions was discussed/given and patient was instructed to perform kick counts three times a day. Patient going [facility] a trip [facility], she will return at 31 weeks. Patient encouraged to get out of car every 2 hours and walk around as well as wear compression stockings to help prevent blood clot. Pt verbalized understanding. Growth US ordered for 31 weeks Orders Placed This Encounter Procedures US OB follow up transabdominal approach CBC and differential Hemoglobin A1c POCT urinalysis dipstick manually resulted Follow Up: Patient is to return to office in 2 week for routine OB appointment. Documented by BRAIN Martinez on behalf of: BRAIN Martinez documented in this encounter [facility] 08-01-2024 History of Presen t illness Narrative [...] Use to check FSBS four times daily Zxnoyxjf-Lpx-Ds-FA ( 1 + IRON PO) ALLERGIES Allergies [...] 2011 Personal history of other medical treatment [place] teeth removed HISTORY PAST MEDICAL HISTORY SOCIAL HISTORY Past Medical History: Diagnosis Date Bleeding in early 12/02/2022 Frequent UTI Herpes History of chlamydia 2008 History of depression no meds 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 Personal history of other medical treatment Frenectomy x2 [place] teeth removed Social History Tobacco Use Smoking [...] nursing note reviewed. Exam conducted with a bartender server present. Vitals: Estimated body mass index is [...] advanced maternal age in second trimester O09.522 US OB follow up transabdominal approach Patient presents today for a routine obstetrics appointment. Patient is currently 24w4d with a Estimated Date of Delivery: 11/17/24. Reviewed patients sugars and advised they are good, but to stay away from cereal. Patient will continue to monitor. Patient had follow up anatomy scan today and anatomy not cleared. Patient will be referred to [facility] for Level II Scan and consult if needed. Discussed patient upcoming vacation and precautions given. Patient will have growth scan start at 28 weeks gestation. Patient to return to clinic in 4 weeks. Patient to drop off FSBS results for routine in the meantime. Documented by Daniela Candelaria LPN on behalf of: Aquiels Campbell DO documented in this encounter [facility] 06-03-2024 History of Presen t illness Narrative Reason for Appointment: Patient ID: Ed Murphy is a 33 y.o. female who presents for Routine Visit Patient presents today for Return OB appointment. MEDICATIONS Current Outpatient Medications Medication Instructions Nvozjvox-Sdf-Eo-FA ( 1 + IRON PO) Progesterone 200 [...] 2011 Personal history of other medical treatment [place] teeth removed HISTORY PAST MEDICAL HISTORY SOCIAL HISTORY Past Medical History: Diagnosis Date Bleeding in early 12/02/2022 Frequent UTI Herpes History of chlamydia 2008 History of depression no meds 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 2011 Personal history of other medical treatment Frenectomy x2 [place] teeth removed Social History Tobacco Use Smoking [...] nursing note reviewed. Exam conducted with a bartender server present. Vitals: Estimated body mass index is [...] off on referral at this time. Discussed [place] testing if patient desires to check for genetic testing and patient declines at this time as well. Obtained vaginal cultures without issue & patient to return to clinic in 4 weeks for routine OB appointment. Documented by Daniela Candelaria LPN on behalf of: Aquiles Campbell DO documented in this encounter [facility] 05-02-2024 History of Presen t illness Narrative Reason for Appointment: Patient ID: Ed Murphy is a 33 y.o. female who presents for Routine Visit Patient presents today for Return OB appointment. MEDICATIONS Current Outpatient Medications Medication Instructions Cxcpicfe-Qhb-Qh-FA ( 1 + IRON PO) Vit-Fe Zoizbwq-QT-KHX ( VITAMIN/MIN +DHA PO) Progesterone 200 MG [...] 2010 Personal history of other medical treatment [place] teeth removed HISTORY PAST MEDICAL HISTORY SOCIAL HISTORY Past Medical History: Diagnosis Date Bleeding in early 12/02/2022 Frequent UTI Herpes History of chlamydia 2008 History of depression no meds 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 Personal history of other medical treatment Frenectomy x2 [place] teeth removed Social History Tobacco Use Smoking [...] of: ray martinez documented in this encounter [facility] 02-15-2024 History of Presen t illness Narrative Reason for Appointment: Patient ID: Ed Murphy is a 33 y.o. female who presents for Well Women Visit Patient presents today for Annual Exam. MEDICATIONS Current Outpatient Medications Medication Instructions co-enzyme Q-10 30 mg, Oral, Daily guaiFENesin (MUCINEX) 1,200 mg, Oral, 2 times daily, Do not crush, chew, or split. letrozole (FEMARA) 2.5 mg, Oral, Daily Hbfndkpq-Mmh-Md-FA ( 1 + IRON PO) Vit-Fe Kaeunms-IT-NZJ ( VITAMIN/MIN +DHA PO) ALLERGIES Allergies Allergen [...] 2010 Personal history of other medical treatment [place] teeth removed HISTORY PAST MEDICAL HISTORY SOCIAL HISTORY Past Medical History: Diagnosis Date Bleeding in early 12/02/2022 Frequent UTI Herpes History of chlamydia 2008 History of depression no meds 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 Personal history of other medical treatment Frenectomy x2 [place] teeth removed Social History Tobacco Use Smoking [...] nursing note reviewed. Exam conducted with a bartender server present. Vitals: Estimated body mass index is [...] of: BRAIN Martinez documented in this encounter [facility] 02-12-2024 History of Presen t illness Narrative Reason for Appointment: Patient ID: Ed Murphy is a 33 y.o. female who presents for Infertility (Pt present today to discuss infertility) Patient presents today for Consult appointment. MEDICATIONS Current Outpatient Medications Medication Instructions Tvyirsyk-Yps-Ic-FA ( 1 + IRON PO) Vit-Fe Ifampvt-YR-JRF ( VITAMIN/MIN +DHA PO) ALLERGIES Allergies Allergen [...] 2010 Personal history of other medical treatment [place] teeth removed HISTORY PAST MEDICAL HISTORY SOCIAL HISTORY Past Medical History: Diagnosis Date Bleeding in early 12/02/2022 Frequent UTI Herpes History of chlamydia 2007 History of depression no meds 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 Personal history of other medical treatment Frenectomy x2 [place] teeth removed Social History Tobacco Use Smoking [...] nursing note reviewed. Exam conducted with a bartender server present. Vitals: Estimated body mass index is [...] Aquiles Campbell DO documented in this encounter [facility] Healthcare Evaluation note Diagnosis Anovulation Female infertility associated with anovulation documented [facility] this [facility] Diagnosis Well woman exam with routine gynecological exam Routine gynecological examination documented in this encounter [facility] noteNo assessment information availableThe [facility] Work Phone: Evaluation note* [...] in second trimester documented in this encounter [facility]* Diagnosis Size of fetus inconsistent with dates in second trimester- Primary Third trimester state, incidental 28 weeks gestation of documented in this encounter [facility]* Diagnosis 31 weeks gestation of Third trimester state, incidental Multigravida of advanced maternal age in third trimester Excessive growth affecting management of , antepartum, single or unspecified fetus documented in this encounter [facility] HealthcareInstructionsNot on filedocumented in [facility] Purpose Family History No [...] section and content) DATE CREATED AUTHOR 07/05/2021 [facility] DATE CREATED AUTHOR AUTHOR'S ORGANIZ ATION 08/23/2022 [facility] DATE CREATED AUTHOR AUTHOR'S ORGANIZ ATION 04/19/2024 [facility] DATE CREATED AUTHOR AUTHOR'S ORGANIZ ATION 08/13/2024 [facility] DATE CREATED AUTHOR AUTHOR'S ORGANIZ ATION 09/18/2024 [facility] d[facility] Special[facility] EPIC Reason for Visit (unrecogniz [...] BE BASED ON THE PRIMARY CLINICAL RECORDS. [facility]. provides no warranty or guarantee of the accuracy or completeness of information in this document.
== END 2024-09-27 17:46 | disposition home or self-care (01) ==
LOC: FBCO 17:03 → FBC 17:04
PROVIDERS: Visit Provider Obstetrics & Gynecology
DX: O09.523 Supervision of elderly multigravida, third trimester (principal)
CPT/HCPCS: 59025

== ENCOUNTER 2024-10-01 16:00 | Outpatient (OUT) | payer BC, SELFPAY ==
--- NOTE | 2024-10-01 16:03 | US_ITS ---
The [place] [address] Patient Name: ED SILVA MRN: [facility]:[id number] date: 1990 Sex: F Assigned Patient Location: [facility] Current Patient Location: Accession/Order Number: [id number] Exam Date: 10/02/2024 08:04 Report Date: 10/02/2024 08:07 At the request of: AQUILES CLEVELAND DO Procedure: US OB BPP w non-stress BIOPHYSICAL PROFILE: CLINICAL INFORMATION: MULTIGRAVIDA OF AMA O09.523 COMPARISON: 09/24/2024 There is a single live intrauterine gestation in cephalic presentation. The reported gestational age is 33 weeks 2 days. The heart rate measures 153 beats per minute. FINDINGS: TONE: 1 or more episodes of activity extension and flexion of extremity or opening and closing of the hand [Y] 2/2 GROSS BODY MOVEMENTS: 3 or more discrete body or limb movements [Y] 2/2 BREATHING MOVEMENTS: 1 or more episodes of breathing lasting at least 30 seconds [Y] 2/2 FRANK: A single deepest vertical pocket of amniotic fluid greater than 2 cm [Y] 2/2 FRANK: 17.4 cm. This is in upper normal range. Total score: 8/8 US/US OB BPP w non-stress IMPRESSION: NORMAL BIOPHYSICAL PROFILE. Impression dictated by: Alexus De La Torre M.D. 10/02/2024 8:07 AM Dictation Location: [place] [address] Electronically authenticated by: [id number] Y Date: 10/02/2024 08:07
[2024-10-01 16:35] VITALS: BP 109/51; PULSE 85
== END 2024-10-01 17:11 | disposition home or self-care (01) ==
LOC: US 16:01 → FBC 16:03
PROVIDERS: Visit Provider Obstetrics & Gynecology
DX: O09.523 Supervision of elderly multigravida, third trimester (principal); Z3A.33 33 weeks gestation of pregnancy
CPT/HCPCS: 76818

== ENCOUNTER 2024-10-04 09:01 | Outpatient (OUT) | payer BC, SELFPAY ==
--- OUTSIDE RECORDS SUMMARY | 2024-09-30 15:30 | XMS_ITS | Encounter Summary ---
Author Organization [facility] Address [address] [place] [address] Care Team Providers Care Hub Borer Name Role Phone Unavailable Primary Care Provider Unavailabl e Reason for Visit * Reason Comments Routine Visit Encounter Details Date Type Department Care Team (Late st Contact Info) Description 09/30/2024 3:30 PM EDT Routine [facility] OB [address] [place] [address] Flower Joyce PA [address] [facility] [address] [place], [facility]11 Third trimester ([facility]); 33 weeks gestation of ([facility]) Social History Tobacco Use Types Packs/Day Years [...] Start Date Job End Date Works at [employer] Not on file Not on file Not on file documented as of this encounter Last Filed Vital Signs Vital Sign Reading Time Taken Comments Blood Pressure 130/80 09/30/2024 3:47 PM EDT Pulse - - Temperature - - Respiratory Rate - - Oxygen Saturation - - Inhaled Oxygen Concentration - - Weight 128 kg (282 lb 12 oz) 09/30/2024 3:47 PM EDT Height - - Body Mass Index 42.37 08/22/2022 12:00 PM EDT documented in this encounter Progress Notes * BRAIN Martinez - 09/30/2024 3:30 PM EDT Reason for Appointment: Patient ID: Beulah Murphy is a 33 y.o. female who presents for Routine Visit Patient presents today for Return OB appointment. MEDICATIONS Current Outpatient Medications Medication Instructions Alcohol Swabs (Alcohol Prep Pad) 70 % pads 1 Pad, Topical, Daily, Use four times daily to check FSBS. Blood Glucose Monitoring Suppl ([employer] Glucometer) w/Device kit 1 kit, Does not apply, Daily, Use four times daily to check FSBS. In the morning prior to breakfast & 1 hour after each meal for a total of 4times daily. Ykkluhrc-Vwt-We-FA ( 1 + IRON PO) ALLERGIES Allergies Allergen Reactions Cefadroxil Hives Other Reaction(s): hives, Unknown Other Reaction(s): hives, rash Latex Itching Other Reaction(s): Itching Other Reaction(s): Hives Paroxetine Other Reaction(s): Unknown PROBLEMS Active Ambulatory Problems Diagnosis Date Noted Anovulation 12/02/2022 DUB (dysfunctional uterine bleeding) 12/02/2022 Menstrual disorder 12/02/2022 Missed menses 12/02/2022 Yeast infection 12/02/2022 31 weeks gestation of ([facility]) 09/17/2024 Third trimester ([facility]) 09/17/2024 Multigravida of advanced maternal age in third trimester ([facility]) 09/17/2024 Resolved Ambulatory Problems Diagnosis Date Noted Bleeding in early ([facility]) 12/02/2022 Past Medical History: Diagnosis Date Frequent UTI Herpes History of chlamydia 2007 History of depression 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 Personal history of other medical treatment ([facility]) [place] teeth removed HISTORY PAST MEDICAL HISTORY SOCIAL HISTORY Past Medical History: Diagnosis Date Bleeding in early ([facility]) 12/02/2022 Frequent UTI Herpes History of chlamydia 2008 History of depression no meds 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 Personal history of other medical treatment Frenectomy ([facility]) x2 [place] teeth removed Social History Tobacco Use Smoking [...] reviewed. Vitals: Estimated body mass index is 42.37 kg/m?? as calculated from the following: Height as of 08/22/22: 5' 8.5 . Weight as of this encounter: 282 lb 12 oz. BP: 130/80 Patient's last menstrual period was 02/11/2024. ASSESSMENT & PLAN ICD-10-CM 1. Third trimester ([facility]) Z34.93 POCT urinalysis dipstick manually resulted 2. 33 weeks gestation of ([facility]) Z3A.33 Return OB: Patient presents today for a routine obstetrics appointment. Patient is currently 33w2d . Patient states she is doing well but has complaints of being tired due to current . Patient has verbalizes frequent movement. labor precautions was discussed/given and patient was instructed to perform kick counts three times a day. Orders Placed This Encounter Procedures POCT urinalysis dipstick manually resulted Follow Up: Patient is to return to office in 2 week for routine OB appointment. Documented by BRAIN Martinez on behalf of: BRAIN Martinez documented in this encounter Plan of Treatment Upcoming Encounters Date Type Department Care Team (Late st Contact Info) Description 10/14/2024 2:00 PM EDT Ancillary Procedure [facility] [address] [place] [phone] 10/14/2024 2:30 PM EDT Routine [facility] [address] [place] [address] Theodore Campbell, DO [address] [facility] [place] [address] documented as of this encounter Procedures Procedure Name Priority Date/Time Associated Diagnosis Comments POCT URINALYSIS DIPSTICK Routine 09/30/2024 3:51 PM EDT Third trimester ([facility]) documented in this encounter Results * (ABNORMAL) POCT urinalysis dipstick manually resulted (09/30/2024 3:51 PM EDT) Color, UA Yellow Clarity, UA Clear Glucose, UA Negative Negative - 2000(110) ++++ mg/dL Bilirubin, UA Negative Negative - 4(70) +++ mg/dL Ketones, UA Positive Negative - 160(16) ++++ mg/dL Comment:15mg/dL Spec Grav, UA 1.020 1 - 1.03 Blood, UA Negative Negative - 50 Alex/mcL pH, UA 6.0 5 - 9 Protein, UA Negative Negative - 2000(20) ++++ mg/dL Urobilinogen, UA 0.2 0.2 - 12 mg/dL Leukocytes, UA Negative Negative - 500+++ Jodi/mcL Nitrite, UA Negative Negative - Positive Urine 09/30/2024 3:51 PM EDT [facility] POINT OF CARE TEST ENTER/EDIT OR DERABLES Final Result documented in this encounter Visit Diagnoses Diagnosis Third trimester ([facility]) state, incidental 33 weeks gestation of ([facility]) documented in this encounter
--- OUTSIDE RECORDS SUMMARY | 2024-10-04 09:04 | XMS_ITS | Encounter Summary ---
Author Organization [facility] Address [address] [place] [address] Care Team Providers Care District Fire Chief Name Role Phone Unavailable Primary Care Provider Unavailabl e Encounter Details Date Type Department Care Team (Late st Contact Info) Description 10/02/2024 Clinisync Result Encounter [facility] External Department Unsolicited Aquiles Campbell, DO [address] [place] [address] Social History Tobacco Use Types Packs/Day Years [...] Start Date Job End Date Works at [employer] Not on file Not on file Not on file documented as of this encounter Plan of Treatment Upcoming Encounters Date Type Department Care Team (Late st Contact Info) Description 10/14/2024 2:00 PM EDT Ancillary Procedure [facility] BCP OB [address] [place] [phone] 10/14/2024 2:30 PM EDT Routine [facility] B[facility] OB [address] [facility] [place] [phone] Aquiles Campbell DO [address] [place] [address] documented as of this encounter Procedures Procedure Name Priority Date/Time Associated Diagnosis Comments US OB BPP W NON-STRESS 10/02/2024 8:07 AM EDT documented in this encounter Results * US OB BPP W NON-STRESS (10/02/2024 8:07 AM EDT) Anatomical Region Laterality Modality Other 10/02/2024 8:07 AM EDT Narrative 10/02/2024 8:10 AM EDT [address] [address] Ultrasound Report Signed Patient: ED SILVA MR#: [id number] : 1990 Acct:[id number] Age/Sex: 33 / F ADM Date: 10/01/24 Loc: US Attending Dr: Aquiles Campbell D.O. Ordering Physician: Aquiles Campbell D.O. Date of Service: 10/01/24 Procedure(s): US OB BPP w non-stress Accession Number(s): [id number] cc: Aquiles Campbell D.O.; Physician,Non-Staff M.DAp The [address] [address] Patient Name: ED SILVA MRN: [id number] date: 1990 Sex: F Assigned [facility] Current Patient Location: Accession/Order Number: [id number] Exam Date: 10/02/2024 08:04 Report Date: 10/02/2024 08:07 At the request of: AQUILES CAMPBELL DO Procedure: US OB BPP w non-stress BIOPHYSICAL PROFILE: CLINICAL INFORMATION: MULTIGRAVIDA OF AMA O09.523 COMPARISON: 09/24/2024 There is a single live intrauterine gestation in cephalic presentation. The reported gestational age is 33 weeks 2 days. The heart rate measures 153 beats per minute. FINDINGS: TONE: 1 or more episodes of activity extension and flexion of extremity or opening and closing of the hand [Y] 2/2 GROSS BODY MOVEMENTS: 3 or more discrete body or limb movements [Y] 2/2 BREATHING MOVEMENTS: 1 or more episodes of breathing lasting at least 30 seconds [Y] 2/2 FRANK: A single deepest vertical pocket of amniotic fluid greater than 2 cm [Y] 2/2 FRANK: 17.4 cm. This is in upper normal range. Total score: 11/15 US/US OB BPP w non-stress IMPRESSION: NORMAL BIOPHYSICAL PROFILE. Impression dictated by: Alexus De La Torre M.D. 10/02/2024 8:07 AM Dictation Location: [place] [address] Electronically authenticated by: [id number] Date: 10/02/2024 08:07 Dictated By: Alexus De La Torre M.D. Signed By: 10/02/24 0810 DD/ 0807 TD/TT: Senior Product Analyst: Procedure Note Radiology, Radiologist, MD - 10/02/2024 [place] [address] Ultrasound Report Signed Patient: ED SILVAMR#: [id number] : 1990Acct:[id number] Age/Sex: 33 / FADM Date: 10/01/24 Loc: US Attending Dr: Aquiles Campbell D.O. Ordering Physician: Aquiles Campbell D.O. Date of Service: 10/01/24 Procedure(s): US OB BPP w non-stress Accession Number(s): [id number] cc: Aquiles Campbell D.O.; Physician,Non-Staff [place] [facility] [place] [id number] Patient Name: ED SILVA MRN: [facility]:[id number] date: 1990 Sex: F Assigned Patient Location: [facility] Current Patient Location: Accession/Order Number: [id number] Exam Date: 10/02/2024 08:04 Report Date: 10/02/2024 08:07 At the request of: AQUILES CAMPEBLL DO Procedure: US OB BPP w non-stress BIOPHYSICAL PROFILE: CLINICAL INFORMATION: MULTIGRAVIDA OF AMA O09.523 COMPARISON: 09/24/2024 There is a single live intrauterine gestation in cephalic presentation.The reported gestational age is 33 weeks 2 days. The heart ratemeasures 153 beats per minute. FINDINGS: TONE: 1 or more episodes of activity extension and flexion of extremity or opening and closing of the hand [Y] 2/2 GROSS BODY MOVEMENTS: 3 or more discrete body or limb movements [Y] 2/2 BREATHING MOVEMENTS: 1 or more episodes of breathing lastingat least 30 seconds [Y] 2/2 FRANK: A single deepest vertical pocket of amniotic fluid greater than 2 cm [Y] 2/2 FRANK: 17.4 cm. This is in upper normal range. Total score: 8/8 US/US OB BPP w non-stress IMPRESSION: NORMAL BIOPHYSICAL PROFILE. Impression dictated by: Alexus De La Torre M.D. 10/02/2024 8:07 AM Dictation Location: [place] [address] Electronically authenticated by: [id number] Y Date: 508:07 Dictated By: Alexus De La Torre M.D. Signed By:10/02/24 0810 DD/ 0807 TD/TT: Senior Product Analyst: Aquiles Campbell DO [facility] Final Result documented in this encounter Visit Diagnoses Not on filedocumented in this encounter
--- OUTSIDE RECORDS SUMMARY | 2024-10-04 09:04 | XMS_ITS | Encounter Summary ---
Author Organization [facility] Address [address] [facility] [place] [address] Care Team Providers Care Escort Blind Name Role Phone Unavailable Primary Care Provider Unavailabl e Encounter Details Date Type Department Care Team (Late st Contact Info) Description 09/23/2024 Abstract [facility] OB [address] [place] [address] Theodore Campbell, [address] [place], [facility]11 Social History Tobacco Use Types Packs/Day Years [...] Start Date Job End Date Works at [employer] Not on file Not on file Not on file documented as of this encounter Plan of Treatment Upcoming Encounters Date Type Department Care Team (Late st Contact Info) Description 10/14/2024 2:00 PM EDT Ancillary Procedure [facility] OB [address] [facility] [place] [address] 10/14/2024 2:30 PM EDT Routine [facility] BCP OB [address] [facility] [place] [address] Theodore Campbell, [address] [place] [address] documented as of this encounter Visit Diagnoses Not on filedocumented in this encounter
--- OUTSIDE RECORDS SUMMARY | 2024-10-04 09:04 | XMS_ITS | Encounter Summary ---
Author Organization [facility] Address [address] [place] [address] Care Team Providers Care Mechanical Engineering Professor Name Role Phone Unavailable Primary Care Provider Unavailabl e Encounter Details Date Type Department Care Team (Late st Contact Info) Description 12/01/2022 Abstract [facility] OB [address] [facility] [address] [place] [phone] Toi Maradiaga, DO [address] [facility] [address] [place] [address] Social History Tobacco Use Types Packs/Day Years [...] Start Date Job End Date Works at [employer] Not on file Not on file Not on file documented as of this encounter Plan of Treatment Upcoming Encounters Date Type Department Care Team (Late st Contact Info) Description 10/14/2024 2:00 PM EDT Ancillary Procedure [facility] BCP OB [address] [place] [phone] 10/14/2024 2:30 PM EDT Routine [facility] BCP OB [address] [facility] [place] [address] Theodore Campbell, [address] [facility] [place] [address] documented as of this encounter Visit Diagnoses Not on filedocumented in this encounter
--- OUTSIDE RECORDS SUMMARY | 2024-10-04 09:04 | XMS_ITS | Encounter Summary ---
Author Organization [facility] Address [address] [facility] [place] [address] Care Team Providers Care Building Maintenance Engineer Name Role Phone Unavailable Primary Care Provider Unavailabl e Encounter Details Date Type Department Care Team (Late st Contact Info) Description 02/29/[address] [facility] OB [facility] [place] [address] Priscila Joseph [address] [place] [address] Social History Tobacco Use Types Packs/Day Years [...] Start Date Job End Date Works at [employer] Not on file Not on file Not on file documented as of this encounter Plan of Treatment Upcoming Encounters Date Type Department Care Team (Late st Contact Info) Description 10/14/2024 2:00 PM EDT Ancillary Procedure [facility] [place] [address] [place] [address] 10/14/2024 2:30 PM EDT Routine [facility] [place] [address] [place] [address] Theodore Campbell, [address] [place] [address] documented as of this encounter Procedures Procedure Name Priority Date/Time Associated Diagnosis Comments PAP SMEAR Routine 02/15/2024 12:00 AM EST documented in this encounter Results * Pap Smear (02/15/2024 12:00 AM EST) Swab Cervical swab / Unknown us [facility] ORDERABLES Final Re sult EXTERNAL LAB documented in this encounter Visit Diagnoses Not on filedocumented in this encounter
--- OUTSIDE RECORDS SUMMARY | 2024-10-04 09:04 | XMS_ITS | Encounter Summary ---
Author Organization [facility] Address [address] [facility] [place] [address] Care Team Providers Care Supplier Diversity Director Name Role Phone Unavailable Primary Care Provider Unavailabl e Encounter Details Date Type Department Care Team (Late st Contact Info) Description 08/20/2024 Abstract [facility] BCP OB [address] [place] [address] Shanna Bailon PR Social History Tobacco Use Types Packs/Day Years [...] Start Date Job End Date Works at [employer] Not on file Not on file Not on file documented as of this encounter Plan of Treatment Upcoming Encounters Date Type Department Care Team (Late st Contact Info) Description 10/14/2024 2:00 PM EDT Ancillary Procedure [facility] BCP OB [address] [place] [address] 10/14/2024 2:30 PM EDT Routine [facility] BCP OB [address] [place] [address] Theodore Campbell, DO [address] [facility] [place] [address] documented as of this encounter Visit Diagnoses Not on filedocumented in this encounter
--- OUTSIDE RECORDS SUMMARY | 2024-10-04 09:04 | XMS_ITS | Encounter Summary ---
Author Organization [facility] Address [address] [place] [address] Care Team Providers Care Restorative Aide Name Role Phone Unavailable Primary Care Provider Unavailabl e Encounter Details Date Type Department Care Team (Late st Contact Info) Description 09/30/2024 Bamboo flowsheet [facility] BCP OB [address] [place] [address] Flower Joyce PA [address] [place] [address] [place] [address] Social History Tobacco Use Types Packs/Day Years [...] Start Date Job End Date Works at [employer] Not on file Not on file Not on file documented as of this encounter Plan of Treatment Upcoming Encounters Date Type Department Care Team (Late st Contact Info) Description 10/14/2024 2:00 PM EDT Ancillary Procedure [facility] OB [address] [place] [phone] 10/14/2024 2:30 PM EDT Routine [facility] BCP OB [address] [place] [address] Theodore Campbell, [address] [facility] [address] [place] [place], [place] [id number] documented as of this encounter Visit Diagnoses Not on filedocumented in this encounter
--- OUTSIDE RECORDS SUMMARY | 2024-10-04 09:04 | XMS_ITS | Encounter Summary ---
Author Organization [facility] Address [address] [facility] [place] [address] Care Team Providers Care Ict Help Desk Officer Name Role Phone Unavailable Primary Care Provider Unavailabl e Encounter Details Date Type Department Care Team (Late st Contact Info) Description 04/15/2024 Abstract [facility] OB [address] [place] [address] Theodore Campbell, [address] [place], [facility] Social History Tobacco Use Types Packs/Day [...] Start Date Job End Date Works at [employer] Not on file Not on file Not on file documented as of this encounter Plan of Treatment Upcoming Encounters Date Type Department Care Team (Late st Contact Info) Description 10/14/2024 2:00 PM EDT Ancillary Procedure [facility] OB [address] [facility] [place] [address] 10/14/2024 2:30 PM EDT Routine [facility] BCP OB [address] [facility] [place] [address] Theodore Campbell, [address] [place] [address] documented as of this encounter Visit Diagnoses Not on filedocumented in this encounter
--- OUTSIDE RECORDS SUMMARY | 2024-10-04 09:04 | XMS_ITS | Clinical Summary ---
Author Organization [facility] Address [address] [place] [address] Care Team Providers Care Regional Training Manager Name Role Phone Unavailable Primary Care Provider Unavailabl e Allergies Active Allergy Reactions Criticality Noted Date Comments Cefadroxil Hives 12/02/2022 Other Reaction(s): hives, Unknown Other Reaction(s): hives, rash Latex Itching 12/02/2022 Other Reaction(s): Itching Other Reaction(s): Hives Paroxetine 12/02/2022 Other Reaction(s): Unknown Medications Pirftcxm-Exx-Wh-FA ( 1 + IRON PO) Active Alcohol [...] Daily 30 capsule 6 08/29/19 025 Active Problems Problem Noted Date Diagnosed Date 31 weeks gestation of ([facility]) 2024 Third trimester ([facility]) 09/17/2024 Multigravida of advanced mat ernal age in third trimester ([facility]) 09/17/2024 Anovulation 12/02/2022 DUB (dysfunctional uterine bleeding) 12/02/2022 Menstrual disorder 12/02/2022 Missed menses 12/02/2022 Yeast infection 12/02/2022 Estimated Date of Delivery Comme nts Yes 11/17/2024 Based on last me nstrual period of 02/11/2024 Resolved Problems Problem Noted Date Diagnosed Date Resolved Date Bleeding in early ([facility]) 12/02/2022 12/02/2022 Encounters Date Type Department Care Team Description 10/02/2024 Clinisync Result Encounter [facility] External Department Unsolicited Aquiles Campbell, 09/30/2024 3:30 PM EDT Routine [facility] [address] [place] [address] Flower Joyce PA Third trimester ([facility]); 33 weeks gestation of ([facility]) 09/30/2024 Bamboo flowsheet [facility] [address] [place] [address] Flower Joyce PA 09/26/2024 Travel 09/25/2024 Clinisync Result Encounter NOMS External Department Unsolicited Aquiles Campbell, 09/23/2024 Abstract [facility] [address] [place] [address] Aqiules Campbell, 09/17/2024 10:20 AM EDT Routine [facility] [place] [address] [address] Aquiles Campbell, 31 weeks gestation of ([facility]); Third trimester ([facility]); Multigravida of advanced maternal age in third trimester ([facility]); Excessive growth affecting management of , antepartum, single or unspecified fetus ([facility]) 09/17/2024 9:30 AM EDT Ancillary Procedure [facility] [address] [place] [address] Size of fetus inconsistent with dates in second trimester ([facility]) 09/16/2024 Travel 09/14/2024 Travel 08/28/[address] [place] [address] Vicki Aguirre LPN 08/27/2024 8:50 AM EDT Routine [facility] [address] [place] [address] Flower Joyce PA Size of fetus inconsistent with dates in second trimester ([facility]) (Primary Dx); Third trimester ([facility]); 28 weeks gestation of ([facility]) 08/27/2024 Clinisync Result Encounter [facility] External Department Unsolicited Flower Joyce PA 08/27/2024 Bamboo flowsheet [facility] [address] [place] [address] Flower Joyce PA 08/26/2024 Travel 08/20/2024 Abstract [facility] [address] [place] [address] Shanna Bailon MA 08/01/2024 9:10 AM EDT Routine [facility] [address] [place] [address] Aquiles Campbell DO Second trimester ([facility]); 24 weeks gestation of ([facility]); Multigravida of advanced maternal age in second trimester ([facility]) 08/01/2024 8:30 AM EDT Ancillary Procedure [facility] [place] [address] [place] [address] Encounter for follow-up ultrasound of anatomy ([facility]) 08/01/[address]phone [facility] [address] [place] [address] Daniela Candelaria LPN 07/31/2024 Travel 07/25/2024 Abstract [facility] [address] [place] [address] Aquiles Campbell, DO 07/25/[address] [address] [place] [address] Aquiles Campbell, DO 07/08/[address] [address] [place] [address] Vicki Aguirre LPN from Last 3 Months Family History Medical [...] Start Date Job End Date Works at [employer] Not on file Not on file Not on file Last Filed Vital Signs Vital Sign Reading Time Taken Comments Blood Pressure 130/80 09/30/2024 3:47 PM EDT Pulse - - Temperature - - Respiratory Rate - - Oxygen Saturation - - Inhaled Oxygen Concentration - - Weight 128 kg (282 lb 12 oz) 09/30/2024 3:47 PM EDT Height 174 cm (5' 8.5 ) 08/22/2022 12:00 PM EDT Body Mass Index 42.37 08/22/2022 12:00 PM EDT Plan of Treatment Upcoming Encounters Date Type Department Care Team (Late st Contact Info) Description 10/14/2024 2:00 PM EDT Ancillary Procedure [facility] [address] [facility] [place] [address] 10/14/2024 2:30 PM EDT Routine [facility] OB [address] [facility] [place] [address] Aquiles Campbell, DO [address] [place] [address] Procedures Procedure Name Priority Date/Time Associated Diagnosis Comments US OB BPP W NON-STRESS 10/02/2024 8:07 AM EDT POCT URINALYSIS DIPSTICK Routine 09/30/2024 3:51 PM EDT Third trimester ([facility]) US OB BPP W NON-STRESS 09/25/2024 7:58 AM EDT POCT URINALYSIS DIPSTICK Routine 09/17/2024 10:37 AM EDT 31 weeks gestation of ([facility]) Third trimester ([facility]) Multigravida of advanced maternal age in third trimester ([facility]) US OB FOLLOW UP TRANSABDOMINAL APPROACH Routine 09/17/2024 9:58 AM EDT Size of fetus inconsistent with dates in second trimester ([facility]) ALL CBC WITH AUTO DIFF Routine 10:10 AM EDT MLR HEMOGLOBIN A1C Routine 08/27/2024 10 :10 AM EDT POCT URINALYSIS DIPSTICK Routine 08/27/2024 9:26 AM EDT Third trimester ([facility]) 28 weeks gestation of ([facility]) US OB LIMITED 1+ FETUSES Routine 08/01/2024 9:02 AM EDT Encounter for follow-up ultrasound of anatomy ([facility]) from Last 3 Months Results * US OB BPP W NON-STRESS (10/02/2024 8:07 AM EDT) Only the most recent of2 resultswithin the time period is included. Anatomical Region Laterality Modality Other 10/02/2024 8:07 AM EDT Narrative 10/02/2024 8:10 [place] [address] Ultrasound Report Signed Patient: ED SILVA MR#: [id number] : 1990 Acct:[id number] Age/Sex: 33 / F ADM Date: 10/01/24 Loc: US Attending Dr: Aquiles Campbell D.O. Ordering Physician: Aquiles Campbell D.O. Date of Service: 10/01/24 Procedure(s): US OB BPP w non-stress Accession Number(s): [id number] cc: Aquiles Campbell D.O.; Physician,Non-Staff M.DAp The [place] [id number] Patient Name: ED SILVA MRN: [id number] date: 1990 Sex: F Assigned Patient Location: [facility] Current Patient Location: Accession/Order Number: [id number] Exam Date: 10/02/2024 08:04 Report Date: 10/02/2024 [...] is in upper normal range. Total score: 8 US/US OB BPP w non-stress IMPRESSION: NORMAL BIOPHYSICAL PROFILE. Impression dictated by: Alexus De La Torre M.D. 10/02/2024 8:07 AM Dictation Location: [place] [address] Electronically authenticated by: [id number] Y Date: 10/02/2024 08:07 Dictated By: Alexus De La Torre M.D. Signed By: 10/02/24809 DD/ 6 TD/TT: Roast Master: Procedure Note Radiology, Radiologist, MD - 10/02/2024 [place] [address] Ultrasound Report Signed Patient: ED SILVAMR#: [id number] : 1990Acct:[id number] Age/Sex: 33 / FADM Date: 10/01/24 Loc: US Attending Dr: Aquiles Campbell D.O. Ordering Physician: Aquiles Campbell D.O. Date of Service: 10/01/24 Procedure(s): US OB BPP w non-stress Accession Number(s): [id number] cc: Aquiles Campbell D.O.; Physician,Non-Staff Hussein The [place] [address] Patient Name: ED SILVA MRN: [id number] date: 1990 Sex: F Assigned Patient Location: [facility] Current Patient Location: Accession/Order Number: [id number] Exam Date: 10/02/2024 08:04 Report Date: 10/02/2024 [...] Torre M.D. 10/02/2024 8:07 AM Dictation Location: [place] [address] Electronically authenticated by: [id number] Y Date: 508:07 Dictated By: Alexus De La Torre M.D. Signed By:10/02/24 0810 DD/ 0807 TD/TT: Roast Master: [facility] DO [facility] Final Result * (ABNORMAL) POCT urinalysis dipstick manually resulted (09/30/2024 3:51 PM EDT) Only the most recent of3 resultswithin the time period is included. Color, UA Yellow Clarity, UA Clear Glucose, UA Negative Negative - 1999(110) ++++ mg/dL Bilirubin, UA Negative Negative - 4(70) +++ mg/dL Ketones, UA Positive Negative - 160(16) ++++ mg/dL Comment:15mg/dL Spec Grav, UA 1.020 1 - 1.03 Blood, UA Negative Negative - 50 Alex/mcL pH, UA 6.0 5 - 9 Protein, UA Negative Negative - 1999(20) ++++ mg/dL Urobilinogen, UA 0.2 0.2 - [...] II, MD, PHD at 18-Sep-2024 08:23:43 AM [facility] Procedure Note Meghann Knight MD - [...] signed by MEGHANN KNIGHT II, MD, PHD [id number] 08:23:43 AM [facility] Flower [place] [facility] IMG OB US PROCEDURES Final Resul t * MLR HEMOGLOBIN A1C (08/27/2024 10:10 AM EDT) [facility] GLYCOHEMOGLOBIN A1C 5.6 4.5 - 6.2 % [facility] Comment: ADA RECOMMENDED LIMIT 4.0 - 6.0 ADA THERAPEUTIC TARGET < 7.0 ACTION SUGGESTED > 7.0 ESTIMATED AVERAGE GLUCOSE 114 mg/dL [facility] 08/27/2024 10:1 0 AM EDT 08/27/2024 10:21 AM EDT Narrative [facility] - 08/27/2024 10:36 AM EDT us [facility] Final Result [facility] * (ABNORMAL) ALL CBC WITH AUTO DIFF (08/27/2024 10:10 AM EDT) [facility] WBC 10.0 4.0 - 11.0 10 3/uL [facility] RBC 3.63(L) 4.20 - 5.40 10 6/uL [facility] HGB 11.0(L) 12.0 - 16.0 g/dL [facility] HCT 32.9(L) 36.0 - 48.0 % [facility] MCV 90.6 81.0 - 99.0 fL TBH TB[facility] MCH 30.3 26.7 - 34.0 pg TBH TB[facility] MCHC 33.4 29.9 - 35.2 g/dL [facility] RDW 13.9 11.0 - 15.0 % [facility] [...] 10:21 AM EDT Narrative [facility] - 08/27/2024 10:44 AM EDT us [facility] [place] [facility] Final Result [facility] * US OB limited 1+ fetuses (08/01/2024 [...] II, MD, PHD at 01-Aug-2024 11:20:36 PM [facility] Procedure Note Meghann Knight MD - [...] LVOTis unremarkable. Interpreted by: Electronically signed by MEGHANN KNIGHT II, MD, PHD [id number] 11:20:36 PM [facility] us Aquiles Campbell DO IMG OB US PROCEDURES Final Resul t from Last 3 Months Insurance [facility]
--- OUTSIDE RECORDS SUMMARY | 2024-10-04 09:04 | XMS_ITS | Encounter Summary ---
Author Organization [facility] Address [address] [place] [address] Care Team Providers Care Fulfillment Specialist Name Role Phone Unavailable Primary Care Provider Unavailabl e Encounter Details Date Type Department Care Team (Late st Contact Info) Description 09/25/2024 Clinisync Result Encounter [facility] External Department Unsolicited Aquiles Campbell, DO [address] [place] [address] Social History Tobacco Use Types Packs/Day Years [...] Start Date Job End Date Works at [employer] Not on file Not on file Not on file documented as of this encounter Plan of Treatment Upcoming Encounters Date Type Department Care Team (Late st Contact Info) Description 10/14/2024 2:00 PM EDT Ancillary Procedure [facility] BCP OB [address] [place] [id number] 10/14/2024 2:30 PM EDT Routine [facility] BCP OB [address] [facility] [facility] [place] [address] Aquiles Campbell DO [address] [facility] [place] [address] documented as of this encounter Procedures Procedure Name Priority Date/Time Associated Diagnosis Comments US OB BPP W NON-STRESS 09/25/2024 7:58 AM EDT documented in this encounter Results * US OB BPP W NON-STRESS (09/25/2024 7:58 AM EDT) Anatomical Region Laterality Modality Other 09/25/2024 7:58 AM EDT Narrative 09/25/2024 8:00 AM EDT [address] [address] Ultrasound Report Signed Patient: ED SILVA MR#: [id number] : 1990 Acct:[id number] Age/Sex: 33 / F ADM Date: 09/24/24 Loc: US Attending Dr: Aquiles Campbell D.O. Ordering Physician: Aquiles Campbell D.O. Date of Service: 09/24/24 Procedure(s): US OB BPP w non-stress Accession Number(s): [id number] cc: Aquiles Campbell D.O.; Physician,Non-Staff M.D. The [address] [address] Patient Name: ED SILVA MRN: [id number] date: 1990 Sex: F Assigned Patient Location: US Current Patient Location: Accession/Order Number: [id number] Exam Date: 09/25/2024 07:56 Report Date: 09/25/2024 [...] Swartz M.D. 09/25/2024 7:58 AM Dictation Location: [place] [address] Electronically authenticated by: [id number] Y Date: 09/25/2024 07:58 Dictated By: Manuel Swartz D.O. Signed By: 09/25/24 0800 DD/ 0758 TD/TT: Second Steward: Procedure Note Radiology, Radiologist, - 09/25/2024 [place] [address] Ultrasound Report Signed Patient: ED SILVAMR#: [id number] : 1990Acct:[id number] Age/Sex: 33 / FADM Date: 09/24/24 Loc: US Attending Dr: Aquiles Campbell D.O. Ordering Physician: Aquiles Campbell D.O. Date of Service: 09/24/24 Procedure(s): US OB BPP w non-stress Accession Number(s): [id number] cc: Aquiles Campbell D.O.; Physician,Non-Staff Hussein The [address] [address] Patient Name: ED SILVA MRN: [id number] date: 1990 Sex: F Assigned Patient Location: US Current Patient Location: Accession/Order Number: [id number] Exam Date: 09/25/2024 07:56 Report Date: 09/25/2024 07:58 At the request of: AQUILES CAMPBELL DO Procedure: US OB BPP w non-stress Ultrasound biophysical profile HISTORY: Multigravida. Advanced maternal age. Adequate breathing movement, gross body movement, tone and amniotic fluid volume for total score of 8 out of 8. The amniotic fluidindex is 13.5cm within normal limits. The heart rate 135 bpm. US/US OB BPP w non-stress IMPRESSION: Adequate ultrasound biophysical profile Impression dictated by: Manuel Swartz M.D. 09/25/2024 7:58 AM Dictation Location: [facility] Electronically authenticated by: [id number] Y Date: 7:58 Dictated By: Manuel Swartz D.O. Signed By:09/25/24 0800 DD/ 0758 TD/TT: Second Steward: us Aquiles Adrian DO [facility] Final Result documented in this encounter Visit Diagnoses Not on filedocumented in this encounter
--- OUTSIDE RECORDS SUMMARY | 2024-10-04 09:04 | XMS_ITS | Encounter Summary ---
Author Organization [facility] tem Address [id number] [address] [place] [address] Care Team Providers Care Surveyor Rod Helper Name Role Phone Unavailable Primary Care Provider Unavailabl e Encounter Details Date Type Department Care Team (Late st Contact Info) Description 08/07/2024 Orders Only Maternal- Medicine at [facility] [address] [facility] [place] [phone] Ref Prov, [place] [address] Social History Tobacco Use Types Packs/Day Years [...]
--- OUTSIDE RECORDS SUMMARY | 2024-10-04 09:04 | XMS_ITS | Encounter Summary ---
Author Organization [facility] Address [address] [place] [address] Care Team Providers Care Lime Kiln Operator Name Role Phone Unavailable Primary Care Provider Unavailabl e Encounter Details Date Type Department Care Team (Latest Contact Info) Description 09/26/2024 Travel Social History Tobacco Use Types Packs/Day [...] Start Date Job End Date Works at [employer] Not on file Not on file Not on file documented as of this encounter Plan of Treatment Upcoming Encounters Date Type Department Care Team (Late st Contact Info) Description 10/14/2024 2:00 PM EDT Ancillary Procedure [facility] BCP OB [address] [place] [address] 10/14/2024 2:30 PM EDT Routine [facility] BCP OB [address] [place] [address] Theodore Campbell, DO [address] [place] [address] documented as of this encounter Visit Diagnoses Not on filedocumented in this encounter
--- OUTSIDE RECORDS SUMMARY | 2024-10-04 09:04 | XMS_ITS | Encounter Summary ---
Author Organization [facility] Address [address] [place] [address] Care Team Providers Care Driver Examiner Name Role Phone Unavailable Primary Care Provider Unavailabl e Encounter Details Date Type Department Care Team (Late st Contact Info) Description 07/25/2024 Abstract [facility] OB [address] [place] [address] Theodore Campbell, [address] [place]isha [place], [facility] Social History Tobacco Use Types Packs/Day Years [...] Start Date Job End Date Works at [employer] Not on file Not on file Not on file documented as of this encounter Plan of Treatment Upcoming Encounters Date Type Department Care Team (Late st Contact Info) Description 10/14/2024 2:00 PM EDT Ancillary Procedure [facility] OB [address] [place] [address] 10/14/2024 2:30 PM EDT Routine [facility] BCP OB [address] [facility] [place] [address] Theodore Campbell, [address] [address] documented as of this encounter Visit Diagnoses Not on filedocumented in this encounter
--- OUTSIDE RECORDS SUMMARY | 2024-10-04 09:04 | XMS_ITS | Clinical Summary ---
Author Organization [facility] tem Address [id number] [address] [place] [address] Care Team Providers Care Container Crane Operator Name Role Phone Unavailable Primary Care [...] Travel 08/07/2024 Orders Only Maternal- Medicine at [facility] [address] [place] [address] Ref Prov, Not In System 08/07/2024 Abstract Maternal- Medicine at [facility] [address] [place] [address] External, Scanning Provider from Last 3 Months [...] Name Priority Date/Time Associated Diagnosis Comments US M COMPREHENSIVE ANATOMIC SURVEY Routine 08/08/2024 9:49 AM EDT Encounter for anatomic survey ULTRASOUND OFFICE Routine 08/01/2024 10: 19 AM EDT from Last 3 Months Results * US MFM COMPREHENSIVE ANATOMIC SURVEY (08/08/2024 9:49 AM EDT) Anatomical Region Laterality Modality OB-COOK PRESSURE Ultrasound 08/08/2024 8:19 AM EDT Narrative 08/08/2024 10:17 AM EDT NAME: SHIRA WARD : 1990 SEX: F Accession Number: [id number] ORDERING PHYSICIAN: AQUILES CAMPBELL REFERRING PHYSICIAN: AQUILES CAMPBELL Coding ----- --------- Procedures 13569: Ultrasound, uterus, real time with image documentation, and maternal evaluation plus detailed anatomic examination, transabdominal approach;single or first gestation Indication ----- --------- Screening for Anatomic Survey , AMA- Supervision of elderly, Previous x2, Obesity in History ----- --------- OB History 4. Para 2 [id number] Maternal Assessment ----- --------- Physical Exam Height [...] EFW (oz) 2 oz EFW by: Hadlock ([id number]) Extended Tibia 43.3 mm 26w 5d 81% [employer] In[employer] 3.6 mm CM 4.0 mm 3% Nicolaides [...] view. RVOT view. LVOT view. 3-vessel view. 6-fofhau-spghflk view. Situs. Aortic arch view. Bicaval view. [...] WARD : 1990 SEX: F Accession Number: [id number] ORDERING PHYSICIAN: AQUILES CAMPBELL REFERRING PHYSICIAN: AQUILES CAMPBELL Coding ----- --------- Procedures 25990: Ultrasound, uterus, real time with imagedocumentation, and maternal evaluation plus detailed anatomic examination, transabdominalapproach;single or first gestation Indication ----- --------- Screening for Anatomic Survey , AMA- Supervision of elderly, PreviousC-Section x2, Obesity in History ----- --------- OB History 4. Para 2 [id number] Maternal Assessment ----- --------- Physical Exam Height [...] EFW (oz) 2 oz EFW by: Hadlock ([id number]) Extended Tibia 43.3 mm 26w 5d 81% [employer] Instructor 3.6 mm CM 4.0 mm 3% Nicolaides [...] 4-chamber view. RVOT view. LVOT view. 3-vessel view.9-fixqeq-mzetvdh view. Situs. Aortic arch view. Bicaval view. [...] thepatient as necessary. us Aquiles Campbell DO [facility] ORDER[facility]LES Final Result * Ultrasound - Office (08/01/2024 10:19 AM EDT) Anatomical Region Laterality Modality AMB Ultrasound us Not In System Ref Prov [facility] US ORDERABLES Final R esult from Last 3 Months Insurance [facility]
[2024-10-04 09:07] VITALS: BP 99/66; PULSE 85
== END 2024-10-04 09:31 | disposition home or self-care (01) ==
LOC: FBCO 09:01 → FBC 09:03
PROVIDERS: Visit Provider Obstetrics & Gynecology
DX: O09.529 Supervision of elderly multigravida, unspecified trimester (principal)
CPT/HCPCS: 59025

== ENCOUNTER 2024-10-08 15:59 | Outpatient (OUT) | payer BC, SELFPAY ==
--- NOTE | 2024-10-08 16:03 | US_ITS ---
The [place] [id number] Patient Name: ED SILVA MRN: [facility]:[id number] date: 1990 Sex: F Assigned Patient Location: Current Patient Location: Accession/Order Number: [id number] Exam Date: 10/09/2024 07:51 Report Date: 10/09/2024 07:52 At the request of: AQUILES CLEVELAND DO Procedure: US OB BPP w non-stress BIOPHYSICAL PROFILE: CLINICAL INFORMATION: MULTIGRAVIDA OF ADVANCED MATERNAL AGE O09.523 COMPARISON: 10/01/2024 There is a single live intrauterine gestation in cephalic presentation. The reported gestational age is 34 weeks 2 days. The heart rate measures 136 beats per minute. FINDINGS: TONE: 1 or more episodes of activity extension and flexion of extremity or opening and closing of the hand [Y] 2/2 GROSS BODY MOVEMENTS: 3 or more discrete body or limb movements [Y] 2/2 BREATHING MOVEMENTS: 1 or more episodes of breathing lasting at least 30 seconds [Y] 2/2 FRANK: A single deepest vertical pocket of amniotic fluid greater than 2 cm [Y] 2/2 FRANK: 20.0 cm. This is in upper normal range. Total score: 8/8 US/ OB BPP w non-stress IMPRESSION: NORMAL BIOPHYSICAL PROFILE Impression dictated by: Alexus De La Torre M.D. 10/09/2024 7:52 AM Dictation Location: [place] [address] Electronically authenticated by: [id number] Y Date: 10/09/2024 07:52
[2024-10-08 16:43] VITALS: BP 101/66; PULSE 91
== END 2024-10-08 17:15 | disposition home or self-care (01) ==
LOC: US 15:59 → FBC 16:39
PROVIDERS: Visit Provider Obstetrics & Gynecology
DX: O09.523 Supervision of elderly multigravida, third trimester (principal); Z3A.34 34 weeks gestation of pregnancy
CPT/HCPCS: 76818

== ENCOUNTER 2024-10-11 13:00 | Outpatient (OUT) | payer BC, SELFPAY ==
--- OUTSIDE RECORDS SUMMARY | 2024-10-11 13:03 | XMS_ITS | CCD ---
Author Organization [facility] Care Team Providers Care Staff [employer] Officer Name Role Phone ADRIAN ., DR KWAN [...] Admitting Unavailable Adrian DO, Aquiles Attending Provider [phone] Unavailable Primary Care Provider Unavailabl e ADRIAN, AQUILES R Referring Unavailable ADRIAN, AQUILES Attending Unavailable ADRIAN, AQUILES Attending Unavailable ADRIAN, AQUILES Referring Unavailable SHANNA, FLOWER Attending Unavailable ADRIAN, AQUILES Attending Unavailable SHANNA, FLOWER Attending Unavailable SHANNA, FLOWER Referring Unavailable ADRIAN, AQUILES Attending Unavailable SHANNA, FLOWER Attending Unavailable ADRIAN, AQUILES Attending Unavailable SHANNA, FLOWER Attending Unavailable Allergies Allergy Classification Reported Allergen(s) Allergy Type Date of Onset Reaction(s) Facility (1 source) Cefadroxil Drug Allergy [facility] Repository (1 source) natural latex rubber Drug allergy (disorder) [facility] Repository (20 sources) Cefadroxil; Translations: [CEFADROXIL] Drug Allergy 3 Hives [facility] (20 sources) Latex; Translations: [LATEX] Allergy to substance 3 Itching [facility] (20 sources) PARoxetine; Translations: [PAROXETINE] Drug Allergy 3 [facility] (1 source) Latex Propensity to adverse reactions to drug 5 Itching [facility] Medications Current Medications Medication Drug Class(es) Dates Sig (Normalized) Sig (Original) Blood Glucose Monitoring Suppl (D-Care Glucometer) w/Device kit (14 sources) Start: 07-25-2024 End: 07-25-2025 Blood Glucose Monitoring Suppl (D-Care Glucometer) w/Device kit Indications: Gestational diabetes mellitus (GDM), antepartum, gestational diabetes method of control unspecified ([facility]) , Elevated glucose tolerance test 1 kit [...] Active isopropyl alcohol 0.7 ml/ml medicated pad (14 sources) Start: Alcohol Swabs (Alcohol Prep Pad) 70 % pads Indications: Gestational diabetes mellitus (GDM), antepartum, gestational diabetes method of control unspecified ([facility]) , Elevated glucose tolerance test Apply 1 [...] Daily 30 capsule 6 08/28/2024 09/27/2024 Active Qhbjqndv-Xeq-Dd-FA ( 1 + IRON PO) (20 sources) Kxhjfgyd-Gjk-Qz-FA ( 1 + IRON PO) Active vit,jorge [...] Class(es) Dates Sig (Normalized) Sig (Original) Vit-Fe Gdcoang-PM-ZWP ( VITAMIN/MIN +DHA PO) (20 sources) Start: 06-09-2023 End: 06-03-2024 Vit-Fe Vvkkbgk-CF-FJR ( VITAMIN/MIN +DHA PO) 06/09/2023 06/03/2024 Discontinued (Other) Start: 06-09-2023 Vit-F e Ttsptmw-ZP-GUT ( VITAMIN/MIN +DHA PO) 06/09/2023 Active Progesterone [...] menstruation] Onset: 05-13-2022 Chronic Other complications of (14 sources) Multigravida of advanced maternal age; Translations: [...] 06-03-2024 Episodic Other and delivery including normal (20 sources) First trimester ; Translations: [Encounter for [...] of ] 08-27-2024 Episodic Residual codes; unclassified (10 sources) Gestation period, 31 weeks; Translations: [31 weeks gestation of ] Onset: 06-10-2025 06-10-2025 Episodic Residual codes; unclassified (2 sources) Gestation period, 33 weeks; Translations: [33 weeks gestation of ] 09-30-2024 Episodic Past or Other Problems Problem Classification [...] Range Facility OB BPP W NON-STRESS on 10-09-2024 [place] [address] Ultrasound Report Signed Patient: ED MURPHY MR#: [id number] : 1990 Acct:[id number] Age/Sex: 33 / F ADM Date: 10/08/24 Loc: US Attending Dr: Aquiles Campbell D.O. Ordering Physician: Aquiles Campbell D.O. Date of Service: 10/08/24 Procedure(s): US OB BPP w non-stress Accession Number(s): [id number] cc: Aquiles Campbell D.O.; Physician,Non-Staff M.DAp [facility] [place] [id number] Patient Name: ED MURPHY MRN: [id number] date: 1990 Sex: F Assigned Patient Location: US Current Patient Location: Accession/Order Number: [id number] Exam Date: 10/09/2024 07:51 Report Date: 10/09/2024 07:52 At the request of: AQUILES CAMPBELL DO Procedure: US OB BPP w non-stress BIOPHYSICAL PROFILE: CLINICAL INFORMATION: MULTIGRAVIDA OF ADVANCED MATERNAL AGE O09.523 COMPARISON: 10/01/2024 There is a single live intrauterine gestation in cephalic presentation. The reported gestational age is 34 weeks 2 days. The heart rate measures 136 beats per minute. FINDINGS: TONE: 1 or [...] greater than 2 cm [Y] 2/2 FRANK: 20.0 cm. This is in upper normal range. Total score: 8/8 US/US OB BPP w non-stress IMPRESSION: NORMAL BIOPHYSICAL PROFILE Impression dictated by: Alexus De La Torre M.D. 10/09/2024 7:52 AM Dictation Location: [place] [address] Electronically authenticated by: [id number] Y Date: 10/09/2024 07:52 Dictated By: Alexus De La Torre M.D. Signed By: 10/09/24 0945 DD/ 0752 TD/TT: Ragman: [facility] Radiology, Radiologist, MD - 10/09/2024 [place] [address] Ultrasound Report Signed Patient: ED MURPHY MR#: [id number] : 1990 Acct:[id number] Age/Sex: 33 / F ADM Date: 10/08/24 Loc: US Attending Dr: Aquiles Campbell D.O. Ordering Physician: Aquiles Campbell D.O. Date of Service: 10/08/24 Procedure(s): US OB BPP w non-stress Accession Number(s): [id number] cc: Aquiles Campbell D.O.; Physician,Non-Staff [place] [facility] [place] [id number] Patient Name: ED MURPHY MRN: [id number]:[id number] date: 1990 Sex: F Assigned Patient Location: Current Patient Location: Accession/Order Number: [id number] Exam Date: 10/09/2024 07:51 Report Date: 10/09/2024 07:52 At the request of: AQUILES CAMPBELL DO Procedure: US OB BPP w non-stress BIOPHYSICAL PROFILE: CLINICAL INFORMATION: MULTIGRAVIDA OF ADVANCED MATERNAL AGE O09.523 COMPARISON: 10/01/2024 There is a single live intrauterine gestation in cephalic presentation. The reported gestational age is 34 weeks 2 days. The heart rate measures 136 beats per minute. FINDINGS: TONE: 1 or [...] greater than 2 cm [Y] 2/2 FRANK: 20.0 cm. This is in upper normal range. Total score: 8/8 US/US OB BPP w non-stress IMPRESSION: NORMAL BIOPHYSICAL PROFILE Impression dictated by: Alexus De La Torre M.D. 10/09/2024 7:52 AM Dictation Location: [place] [address] Electronically authenticated by: [id number] Y Date: 10/09/2024 07:52 Dictated By: Alexus De La Torre M.D. Signed By: 10/09/24 0945 DD/ 0752 TD/TT: Ragman: [facility] Radiology Study observation (narrative) [facility] US OB BPP W NON-STRESS Ordered By: Radiologist Radiology on 10-09-2024 [facility] [employer] Work Phone: US OB BPP W NON-STRESS on 10-02-2024 [place] [address] Ultrasound Report Signed Patient: ED MURPHY MR#: [id number] : 1990 Acct:[id number] Age/Sex: 33 / F ADM Date: 10/01/24 Loc: US Attending Dr: Aquiles Campbell D.O. Ordering Physician: Aquiles Campbell D.O. Date of Service: 10/01/24 Procedure(s): US OB BPP w non-stress Accession Number(s): [id number] cc: Aquiles Campbell D.O.; Physician,Non-Staff [place] [address] Patient Name: ED MURPHY MRN: [facility]:[id number] date: 1990 Sex: F Assigned Patient Location: [facility] Current Patient Location: Accession/Order Number: [id number] Exam Date: 10/02/2024 08:04 Report Date: 10/02/2024 [...] is in upper normal range. Total score: 8/ US/US OB BPP w non-stress IMPRESSION: NORMAL BIOPHYSICAL PROFILE. Impression dictated by: Alexus De La Torre M.D. 10/02/2024 8:07 AM Dictation Location: [place] [address] Electronically authenticated by: [id number] Y Date: 10/02/2024 08:07 Dictated By: Alexus De La Torre M.D. Signed By: 10/02/24 0810 DD/ 0807 TD/TT: Ragman: [facility] Radiology, Radiologist, MD - 10/02/2024 [place] [address] Ultrasound Report Signed Patient: ED MURPHY MR#: [id number] : 1990 Acct:[id number] Age/Sex: 33 / F ADM Date: 10/01/24 Loc: US Attending Dr: Aquiles Campbell D.O. Ordering Physician: Aquiles Campbell D.O. Date of Service: 10/01/24 Procedure(s): US OB BPP w non-stress Accession Number(s): [id number] cc: Aquiles Campbell D.O.; Physician,Non-Staff [place] [facility] [place] [id number] Patient Name: ED MURPHY MRN: [facility]:[id number] date: 1990 Sex: F Assigned Patient Location: [facility] Current Patient Location: Accession/Order Number: [id number] Exam Date: 10/02/2024 08:04 Report Date: 10/02/2024 [...] Torre M.D. 10/02/2024 8:07 AM Dictation Location: [place] [address] Electronically authenticated by: [id number] Y Date: 10/02/2024 08:07 Dictated By: Alexus De La Torre M.D. Signed By: 10/02/24 0810 DD/ 6 TD/TT: Ragman: [facility] Radiology Study observation (narrative) [facility] US OB BPP W NON-STRESS Ordered By: Radiologist Radiology on 10-02-2024 [facility] Work Phone: Urinalysis macro (dipstick) panel (U)on 09-30-2024 Bilirubin, UA Negative Negative - 4(70) +++ mg/dL [facility] Blood, UA Negative Negative - 50 Alex/mcL [facility] Clarity, UA Clear [facility] Color, UA Yellow [facility] Glucose, UA Negative Negative - 2000(110) ++++ mg/dL [facility] Interpretation and review of laboratory results Abnormal [facility] Ketones, UA Positive Negative - 160(16) ++++ mg/dL [facility] Comment on above: 15mg/dL Leukocytes, UA Negative Negative - 500+++ Jodi/mcL [facility] Nitrite, UA Negative Negative - Positive [facility] pH, UA 6 5 - 9 [facility] Protein, UA Negative Negative - 2000(20) ++++ mg/dL [facility] Spec Grav, UA 1.02 1 - 1.03 [facility] Urobilinogen, UA 0.2 0.2 - 12 mg/dL [facility] US OB BPP W NON-STRESS on 09-25-2024 [place] [address] Ultrasound Report Signed Patient: ED MURPHY MR#: [id number] : 1990 Acct:[id number] Age/Sex: 33 / F ADM Date: 09/24/24 Loc: US Attending Dr: Aquiles Campbell D.O. Ordering Physician: Aquiles Campbell D.O. Date of Service: 09/24/24 Procedure(s): US OB BPP w non-stress Accession Number(s): [id number] cc: Aquiles Campbell D.O.; Physician,Non-Staff [place] The [address] [address] Patient Name: ED MURPHY MRN: [facility]:[id number] date: 1990 Sex: F Assigned Patient Location: US Current Patient Location: Accession/Order Number: [id number] Exam Date: 09/25/2024 07:56 Report Date: 09/25/2024 [...] Swartz M.D. 09/25/2024 7:58 AM Dictation Location: [place] [address] Electronically authenticated by: [id number] Y Date: 09/25/2024 07:58 Dictated By: Manuel Swartz D.O. Signed By: 09/25/24 0800 DD/ 0758 TD/TT: Ragman: [facility] Radiology, Radiologist, MD - 09/25/2024 The [place] [id number] Ultrasound Report Signed Patient: ED MURPHY MR#: [id number] : 1990 Acct:[id number] Age/Sex: 33 / F ADM Date: 09/24/24 Loc: US Attending Dr: Aquiles Campbell D.O. Ordering Physician: Aquiles Campbell D.O. Date of Service: 09/24/24 Procedure(s): US OB BPP w non-stress Accession Number(s): [id number] cc: Aquiles Campbell D.O.; Physician,Non-Staff [place] [facility] [place] [address] Patient Name: ED MURPHY MRN: [id number]:[id number] date: 1990 Sex: F Assigned Patient Location: US Current Patient Location: Accession/Order Number: [id number] Exam Date: 09/25/2024 07:56 Report Date: 09/25/2024 [...] Swartz M.D. 09/25/2024 7:58 AM Dictation Location: [place] [address] Electronically authenticated by: [id number] Y Date: 09/25/2024 07:58 Dictated By: Manuel Swartz D.O. Signed By: 09/25/24 0800 DD/ 0758 TD/TT: Ragman: [facility] Radiology Study observation (narrative) [facility] US OB BPP W NON-STRESS Ordered By: Radiologist Radiology on 09-25-2024 [facility] Work Phone: US OB FOLLOW UP TRANSABDOMIN [...] II, MD, PHD at 18-Sep-2024 08:23:43 AM [facility] Normal Not Available Comment on above: Order Comment: US OB SCAN FOR GROWTH Estimated Date of Delivery: 11/17/24 Gestational Age as of 08/27/2024: 28w2d Urinalysis macro (dipstick) panel (U)on 09-17-2024 Bilirubin, UA Negative Negative - 4(70) +++ mg/dL [facility] Blood, UA Negative Negative - 50 Alex/mcL [facility] Clarity, UA Clear [facility] Color, UA Yellow [facility] Glucose, UA Negative Negative - 1999(110) ++++ mg/dL [facility] Interpretation and review of laboratory results Normal [facility] Ketones, UA Negative Negative - 160(16) ++++ mg/dL [facility] Leukocytes, UA Negative Negative - 500+++ Jodi/mcL [facility] Nitrite, UA Negative Negative - Positive [facility] pH, UA 7 5 - 9 [facility] Protein, UA Negative Negative - 2000(20) ++++ mg/dL [facility] Spec Grav, UA 1.01 1 - 1.03 [facility] Urobilinogen, UA 0.2 0.2 - 12 mg/dL [facility]LR HEMOGLOBIN A1Con 025 Glucose [Mass/Vol] 114 mg/dL [facility] HbA1c (Bld) [Mass fraction] 5.6 % 4.5 - 6.2 % [facility] Comment on above: ADA RECOMMENDED LIMI T 4.0 - 6.0 ADA THERAPEUTIC TARGET < 7.0 ACTION SUGGESTED > 7.0 [facility] Urinalysis macro (dipstick) panel (U)Ordered By: Daniel Pereira on 08-27-2024 Bilirubin, UA Negative Negative - 4(70) +++ mg/dL [facility] [employer] Work Phone: Blood, UA Negative Negative - 50 Alex/mcL [facility] Work Phone: Clarity, UA Clear [facility] Work Phone: Color, UA Yellow [facility] Work Phone: Glucose, UA Negative Negative - 1999(110) ++++ mg/dL [facility] [employer] Work Phone: Interpretation and review of laboratory results Normal [facility] [employer] Work Phone: Ketones, UA Negative Negative - 160(16) ++++ mg/dL [facility] Work Phone: Leukocytes, UA Negative Negative - 500+++ Jodi/mcL [facility] Work Phone: Nitrite, UA Negative Negative - Positive [facility] Work Phone: pH, UA 6.5 5 - 9 [facility] [employer] Work Phone: Protein, UA Negative Negative - 2000(20) ++++ mg/dL [facility] [employer] Work Phone: Spec Grav, UA 1.015 1 - 1.03 [facility] [employer] Work Phone: Urobilinogen, UA 0.2 0.2 - 12 mg/dL [facility] [employer] Work Phone: [facility] [employer] Work Phone: US OB LIMITED 1+ FETUSESon [...] II, MD, PHD at 01-Aug-2024 11:20:36 PM [facility] Normal Not Available Comment on above: Order Comment: US OB INCOMPLETE ANATOMY Estimated Date of Delivery: 11/17/24 Gestational Age as of 07/08/2024: 21w1d RECURRENT VAGINITIS (HTRX)on 06-04-2024 ATOPOBIUM VAGINAE 0 [facility] ATOPOBIUM VAGINAE Not detected [facility] BVAB 2,3 (BACTERIAL VAGINOSIS ASSOCIATED BACTERIA 2, 3); MOBILUNCUS SPP 0 [facility] BVAB 2,3 (BACTERIAL VAGINOSIS ASSOCIATED BACTERIA 2, 3); MOBILUNCUS SPP Not detected [facility] NICA ALBICANS, PARAPSILOSIS, TROPICALIS 0 [facility] NICA ALBICANS, PARAPSILOSIS, TROPICALIS Not detected [facility] NICA GLABRATA 0 [facility] NICA GLABRATA Not detected [facility] NICA KRUSEI 0 [facility] NICA KRUSEI Not detected [facility] Healthcare CHLAMYDIA TRACHOMATIS 0 [facility] CHLAMYDIA TRACHOMATIS Not detected [facility] Healthcare GARDNERELLA VAGINALIS 29.376 Abnormal [facility] GARDNERELLA VAGINALIS Detected Abnormal [facility] Interpretation and review of laboratory results Abnormal [facility] Healthcare MEGASPHAERA (TYPES 1, 2) 0 [facility] MEGASPHAERA (TYPES 1, 2) Not detected [facility] MYCOPLASMA GENITALIUM 0 [facility] MYCOPLASMA GENITALIUM Not detected [facility] Healthcare NEISSERIA GONORRHOEAE 0 [facility] NEISSERIA GONORRHOEAE Not detected [facility] Healthcare TRICHOMONAS VAGINALIS 0 [facility] TRICHOMONAS VAGINALIS Not detected [facility] US OB 14+ WEEKS ANATOMY [...] II, MD, PHD at 02-Jul-2024 09:56:12 AM [facility] Normal Not Available Comment on above: Order Comment: US OB ANATOMY SINGLE W US OB CERVICAL LENGTH Estimated Date of Delivery: 11/17/24 Gestational Age as of 06/03/2024: 16w1d Urinalysis macro (dipstick) panel (U)on 06-03-2024 Bilirubin, UA Negative Negative - 4(70) +++ mg/dL [facility] Blood, UA Positive Negative - 50 Alex/mcL [facility] Comment on above: trace-intact Clarity, UA Clear [facility] Color, UA Yellow [facility] Glucose, UA Negative Negative - 1999(110) ++++ mg/dL [facility] Interpretation and review of laboratory results Abnormal [facility] Ketones, UA Positive Negative - 160(16) ++++ mg/dL [facility] Comment on above: 15mg/dL Leukocytes, UA Negative Negative - 500+++ Jodi/mcL [facility] Nitrite, UA Negative Negative - Positive [facility] pH, UA 5.5 5 - 9 [facility] Protein, UA Negative Negative - 1999(20) ++++ mg/dL [facility] Spec Grav, UA 1.02 1 - 1.03 [facility] Urobilinogen, UA 0.2 0.2 - 12 mg/dL [facility] Urinalysis macro (dipstick) panel (U)on 05-02-2024 Bilirubin, UA Trace Negative - 4(70) +++ mg/dL [facility] Blood, UA Negative Negative - 50 Alex/mcL [facility] Clarity, UA Clear [facility] Color, UA Yellow [facility] Glucose, UA Negative Negative - 1999(110) ++++ mg/dL [facility] Interpretation and review of laboratory results Abnormal [facility] Ketones, UA Positive Negative - 160(16) ++++ mg/dL [facility] Leukocytes, UA Negative Negative - 500+++ Jodi/mcL [facility] Nitrite, UA Negative Negative - Positive [facility] pH, UA 6 5 - 9 [facility] Protein, UA Positive Negative - 1999(20) ++++ mg/dL [facility] Spec Grav, UA 1.03 1 - 1.03 [facility] Urobilinogen, UA 0.2 0.2 - 12 mg/dL [facility] ALL CBC WITH AUTO DIFFon BASOPHILS ABSOLUTE AUTO 0 [facility] Basophils/100 WBC (Bld) 0.4 % 0.2 - 2.0 % [facility] Eosinophils/100 WBC (Bld) 0.6 % Low 0.9 - 7.0 % [facility] Erythrocyte distribution width (RBC) [Ratio] 14.1 % 11.0 - 15.0 % [facility] Hematocrit (Bld) [Volume fraction] 40.6 % 36.0 - 48.0 % [facility] Hemoglobin (Bld) [Mass/Vol] 13.1 g/dL 12.0 - 16.0 g/dL [facility] IMMATURE GRANULOCYTES ABS AUTO 0.03 [facility] Immature granulocytes/100 WBC (Bld) 0.3 % 0.0 - 0.5 % [facility] Interpretation and review of laboratory results Abnormal [facility] LYMPHOCYTES ABSOLUTE AUTO 1.9 [facility] Lymphocytes/100 WBC (Bld) 19.1 % Low 20.5 - 60.0 % [facility] MCH (RBC) [Entitic mass] 27.9 pg 26.7 - 34.0 pg [facility] MCHC (RBC) [Mass/Vol] 32.3 g/dL 29.9 - 35.2 g/dL [facility] MCV (RBC) [Entitic vol] 86.6 fL 81.0 - 99.0 fL [facility] MONOCYTES ABSOLUTE AUTO 0.5 [facility] Monocytes/100 WBC (Bld) 5.4 % 1.7 - 12.0 % [facility] NEUTROPHILS ABSOLUTE AUTO 7.4 High [facility] Neutrophils/100 WBC (Bld) 74.2 % 43.0 - 75.0 % [facility] Platelet mean volume (Bld) [Entitic vol] 9.3 fL Low 9.5 - 13.5 fL [facility] EO # 0.1 [facility] [address]T [address] [facility] RBC 4.69 [facility] WBC 9.9 [facility] US OB TRANSVAGINALon 025 OB TRANSVAGINAL TITLE OF EXAM: US OB [...] x 3.6 cm (8 weeks, 0 days). Longbranch rump length is 1.8 cm (8 weeks, [...] (U) No Growth 2 Days PERFORMED BY: [place] [address] PATHOLOGIST SQL DATA ANALYST TOSHA PÉREZ M.D. Normal [facility] Comment on above: Performed By: #### C UU #### [address] [facility] PREG QUANT HCGon 03-23- 024 HCG QUANTITATIVE 7110 mIU/mL [facility] Comment on above: 5-50 0.2-1 WEEK 50-500 1-2 WEEKS 100-5,000 2-3 WEEKS 500-10,000 3-4 WEEKS 1,000-50,000 4-5 WEEKS 10,000-100,000 5-6 WEEKS 15,000-200,000 6-8 WEEKS 10,000-100,000 2-[address] [facility] TB PREG QUANT HCGon 03-22- 024 HCG QUANTITATIVE 5107 mIU/mL [facility] Comment on above: 5-50 0.2-1 WEEK 50-500 1-2 WEEKS 100-5,000 2-3 WEEKS 500-10,000 3-4 WEEKS 1,000-50,000 4-5 WEEKS 10,000-100,000 5-6 WEEKS 15,000-200,000 6-8 WEEKS 10,000-100,000 2-3 MONTHS [facility] PREG QUANT HCGon 024 HCG QUANTITATIVE 2902 mIU/mL [facility] Comment on above: 5-50 0.2-1 WEEK 50-500 1-2 WEEKS 100-5,000 2-3 WEEKS 500-10,000 3-4 WEEKS 1,000-50,000 4-5 WEEKS 10,000-100,000 5-6 WEEKS 15,000-200,000 6-8 WEEKS 10,000-100,000 2-3 MONTHS [facility] PREG QUANT HCGon 024 HCG QUANTITATIVE 1345 mIU/mL [facility] Comment on above: 5-50 0.2-1 WEEK 50-500 1-2 WEEKS 100-5,000 2-3 WEEKS 500-10,000 3-4 WEEKS 1,000-50,000 4-5 WEEKS 10,000-100,000 5-6 WEEKS 15,000-200,000 6-8 WEEKS 10,000-100,000 2-3 MONTHS [facility] PREG QUANT HCGon 024 HCG QUANTITATIVE 420 mIU/mL [facility] Comment on above: 5-50 0.2-1 WEEK 50-500 1-2 WEEKS 100-5,000 2-3 WEEKS 500-10,000 3-4 WEEKS 1,000-50,000 4-5 WEEKS 10,000-100,000 5-6 WEEKS 15,000-200,000 6-8 WEEKS 10,000-100,000 2-3 MONTHS [facility] PREG QUANT HCGon 024 HCG QUANTITATIVE 184 mIU/mL [facility] Comment on above: 5-50 0.2-1 WEEK 50-500 1-2 WEEKS 100-5,000 2-3 WEEKS 500-10,000 3-4 WEEKS 1,000-50,000 4-5 WEEKS 10,000-100,000 5-6 WEEKS 15,000-200,000 6-8 WEEKS 10,000-100,000 2-3 MONTHS [facility] PREG QUANT HCGon 024 HCG QUANTITATIVE 59 mIU/mL [facility] Comment on above: 5-50 0.2-1 WEEK 50-500 1-2 WEEKS 100-5,000 2-3 WEEKS 500-10,000 3-4 WEEKS 1,000-50,000 4-5 WEEKS 10,000-100,000 5-6 WEEKS 15,000-200,000 6-8 WEEKS 10,000-100,000 2-[address] [facility] ALL PROGESTERONEon 4 PROGESTERONE 9.3 ng/mL . [facility] Comment on above: Follicular phase 0.1 - 0.9 Luteal phase 1.8 - 23.9 Ovulation phase 0.1 - 12.0 First trimester 11.0 - 44.3 Second trimester 25.4 - 83.3 Third trimester 58.7 - 214.0 Postmenopausal 0.0 - 0.1 Performed at: - [facility] [address] [id number] Spot Welder Line: Josr Jarvis PhD, Phone: [phone] [facility] IGP,APTIMA HPV,AGE GDLNon AGE GDLN ACOG TESTING Note . [facility] Comment on above: TESTS RESULT FLAG U NITS REF RANGE LAB Clinician Provided Cytology Information Source.............Cervix;Endocervix No. of containers..01 ThinPrep Vial Age Algo ACOG Jacinta... 30-65 01 FLAG LEGEND: L-Low Normal,H-High Normal,LL-Alert Low,HH-Alert High <-Panic Low,>-Panic High,A-Abnormal,AA-Critical Abnormal Performed at: 01 =G [facility] [place] [address] Stacey Tao MD, HPV APTIMA Negative Negative [facility] Comment on above: This nucleic acid am plification test detects fourteen high- risk HPV types (16,18,31,33,35,39,45,51,52,56,58,59,66,68) without differentiation. Performed at: = - [address] [id number] Spot [employer] Line: Stacey Tao MD, Phone: [phone] Performed at: - [address], [place] [id number] [employer]: Stacey Tao MD, Phone: [phone] IGP, APTIMA HPV, RFX 16/18,45 Note . [facility] Comment on above: TESTS RESULT FLAG UN ITS REF RANGE LAB DIAGNOSIS: 02 NEGATIVE FOR INTRAEPITHELIAL LESION OR MALIGNANCY. Specimen adequacy: 02 Satisfactory for evaluation. Endocervical and/or squamous metaplastic cells (endocervical component) are present. Performed by: Jonathan Mancilla, Emergency Response Coordinator (ASCP) . 02 Note: Note 02 The [...] <-Panic Low,>-Panic High,A-Abnormal,AA-Critical Abnormal Performed at: [address] [address] Stacey Tao MD, BRUSH-SPATULA [facility]IX [facility]HEA-SUL[facility]ATEon 08-23-2022 DHEA-Sulfate 352.0 ug/dL Normal 84.8-378.0 [facility] Comment on above: Performed By: #### L AMY #### [facility] [address] [place] [address] Dr. Nam Keenan FSHon 08-23-2022 FSH 6.7 mIU/mL Normal [facility] Comment on above: Result Comment: Adul t Female: Follicular phase 3.5 - 12.5 Ovulation phase 4.7 - 21.5 Luteal phase 1.7 - 7.7 Postmenopausal 25.8 - 134.8 Performed By: #### L [facility] #### [facility] [address] [place] [address] Dr. Nam Keenan LUTEINIZING HORMONE (LH)on 0 08-23-2022 LH 13.7 mIU/mL Normal [facility] Comment on above: Result Comment: Adul t Female: Follicular phase 2.4 - 12.6 Ovulation phase 14.0 - 95.6 Luteal phase 1.0 - 11.4 Postmenopausal 7.7 - 58.5 Performed By: #### L BCL #### [facility] [address] [address] [address] Nam Keenan CBC AUTO DIFFon 08-22-2022 BASO # 0.1 103/ul Normal 0.0-0.1 [facility] Comment on above: Performed By: #### L BCL #### [facility] [address] [address] [address] Nam Keenan Basophils/100 WBC (Bld) 0.7 % Normal 0.2-2.0 [facility] Comment on above: Performed By: #### L BCL #### [facility] [address] [place] [address] Dr. Nam Keenan EO # 0.3 103/ul Normal 0.0-0.7 [facility] Comment on above: Performed By: #### L BCLH #### [facility] [address] [place] [address] Dr. Nam Keenan Eosinophils/100 WBC (Bld) 3.9 % Normal 0.9-7.0 [facility] Comment on above: Performed By: #### L AMY #### [facility] [address] [place] [address] Dr. Nam Keenan Erythrocyte distribution width (RBC) [Ratio] 13.3 % Normal 11.0-15.0 [facility] Comment on above: Performed By: #### L BCL #### [facility] [address] [place] [address] Dr. Nam Keenan Hematocrit (Bld) [Volume fraction] 38.7 % Normal 36.0-48.0 [facility] Comment on above: Performed By: #### L BCL #### [facility] [address] [place] [address] Dr. Nam Keenan Hemoglobin (Bld) [Mass/Vol] 12.4 g/dL Normal 12.0-16.0 [facility] Comment on above: Performed By: #### L BCL #### [facility] [address] [place] [address] Dr. Nam Keenan IG # 0.01 10e3/ul Normal 0.00-0.03 [facility] Comment on above: Performed By: #### L BCLH #### [facility] [address] [place] [address] Dr. Nam Keenan IG % 0.1 % Normal 0.0-0.5 [facility] Comment on above: Performed By: #### L BCLH #### [facility] [address] [place] [address] Dr. Nam Keenan LYMPH # 2.9 103/ul Normal 1.2-3.8 [facility] Comment on above: Performed By: #### L BCLH #### [facility] [address] [place] [address] Dr. Nam Keenan Lymphocytes/100 WBC (Bld) 34.4 % Normal 20.5-60.0 [facility] Comment on above: Performed By: #### L BCLH #### [facility] [address] [place] [address] Dr. Nam Keenan MANUAL DIFF REQ NO Normal [facility] Comment on above: Performed By: #### L BCLH #### [facility] [address] [place] [address] Dr. Nam Keenan MCH (RBC) [Entitic mass] 27.8 pg Normal 26.7-34.0 [facility] Comment on above: Performed By: #### L BCLH #### [facility] [address] [place] [address] Dr. Nam Keenan MCHC (RBC) [Mass/Vol] 32.0 g/dL Normal 29.9-35.2 [facility] Comment on above: Performed By: #### L BCLH #### [facility] [address] [place] [address] Dr. Nam Keenan MCV (RBC) [Entitic vol] 86.8 fL Normal 81.0-99.0 [facility] Comment on above: Performed By: #### L BCLH #### [facility] [address] [place] [address] Dr. Nam Keenan MONO # 0.6 103/ul Normal 0.3-0.8 [facility] Comment on above: Performed By: #### L BCLH #### [facility] [address] [place] [address] Dr. Nam Keenan Monocytes/100 WBC (Bld) 6.7 % Normal 1.7-12.0 [facility] Comment on above: Performed By: #### L BCLH #### [facility] [address] [place] [address] Dr. Nam Keenan NEUT # 4.6 103/ul Normal 1.4-6.5 [facility] Comment on above: Performed By: #### L ANNE #### [facility] [address] [place] [address] Dr. Nam Keenan Neutrophils/100 WBC (Bld) 54.2 % Normal 43.0-75.0 [facility] Comment on above: Performed By: #### L ANNE #### [facility] [address] [place] [address] Dr. Nam Keenan Platelet mean volume (Bld) [Entitic vol] 9.6 fL Normal 9.5-13.5 [facility] Comment on above: Performed By: #### L ANNE #### [facility] [address] [place] [address] Dr. Nam Keenan PLT 335 103/ul Normal 150-450 [facility] Comment on above: Performed By: #### L ANNE #### [facility] [address] [place] [address] Dr. Nam Keenan RBC 4.46 106/ul Normal 4.20-5.40 [facility] Comment on above: Performed By: #### L ANNE #### [facility] [address] [place] [address] Dr. Nam Keenan WBC 8.5 103/ul Normal 4.0-11.0 [facility] Comment on above: Performed By: #### L ANNE #### [facility] [address] [place] [address] Dr. Nam Keenan FREE T4on 08-22-2022 Free T4 [Mass/Vol] 1.14 ng/dL Normal 0.76-1.46 [facility] Comment on above: Performed By: #### L ANNE #### [facility] [address] [place] [address] Dr. Nam Keenan GLYCOHEMOGLOBIN A1Con 2022 ADA RECOMMENDATION SEE BELOW Normal [facility] Comment on above: Result Comment: ADA RECOMMENDED LIMIT 4.0 - 6.0 ADA THERAPEUTIC TARGET < 7.0 ACTION SUGGESTED > 7.0 Performed By: #### A 1C #### [facility] [address] [address] [address] Nam Keenan Glucose [Mass/Vol] 97 mg/dL Normal [facility] Comment on above: Performed By: #### A 1C #### [facility] [address] [place] [address] Dr. Nam Keenan HbA1c (Bld) [Mass fraction] 5.0 % Normal 4.5-6.2 [facility] Comment on above: Performed By: #### A 1C #### [facility] [address] [place] [address] Dr. Nam Keenan PREG QUANT HCGon 08-22-2022 HCG QUANT <1 Normal [facility] Comment on above: Performed By: #### P REGQNT, TSH #### [facility] [address] [place] [address] Dr. Nam Keenan HCG RANGE SEE BELOW Normal [facility] Comment on above: Result Comment: 5-50 0.2-1 WEEK 50-500 1-2 WEEKS 100-5,000 2-3 WEEKS 500-10,000 3-4 WEEKS 1,000-50,000 4-5 WEEKS 10,000-100,000 5-6 WEEKS 15,000-200,000 6-8 WEEKS 10,000-100,000 2-3 MONTHS Performed By: #### P REGQNT, TSH #### [facility] [address] [place] [address] Dr. Nam Keenan TSHon 08-22-2022 TSH 2.026 uIU/mL Normal 0.358-3.740 [facility] Comment on above: Performed By: #### P REGQNT, TSH #### [facility] [address] [place] [address] Dr. Nam Keenan PREG QUANT HCGon 05-27-2022 HCG QUANT 3 mIU/mL Normal [facility] Comment on above: Performed By: #### P REGQNT #### [facility] [address] [place] [address] Dr. Nam Keenan HCG RANGE SEE BELOW Normal [facility] Comment on above: Result Comment: 5-50 0.2-1 WEEK 50-500 1-2 WEEKS 100-5,000 2-3 WEEKS 500-10,000 3-4 WEEKS 1,000-50,000 4-5 WEEKS 10,000-100,000 5-6 WEEKS 15,000-200,000 6-8 WEEKS 10,000-100,000 2-3 MONTHS Performed By: #### P REGQNT #### [facility] [address] [place] [address] Dr. Nam Keenan CBC AUTO DIFFon 05-22-2022 BASO # 0.1 103/ul Normal 0.0-0.1 [facility] Comment on above: Performed By: #### L BCLH #### [facility] [address] [place] [address] Dr. Nam Keenan Basophils/100 WBC (Bld) 0.7 % Normal 0.2-2.0 [facility] Comment on above: Performed By: #### L BCL #### [facility] [address] [place] [address] Dr. Nam Keenan EO # 0.2 103/ul Normal 0.0-0.7 [facility] Comment on above: Performed By: #### L BCLH #### [facility] [address] [place] [address] Dr. Nam Keenan Eosinophils/100 WBC (Bld) 1.6 % Normal 0.9-7.0 [facility] Comment on above: Performed By: #### L BCL #### [facility] [address] [place] [address] Dr. Nam Keenan Erythrocyte distribution width (RBC) [Ratio] 13.9 % Normal 11.0-15.0 [facility] Comment on above: Performed By: #### L BCLH #### [facility] [address] [place] [address] Dr. Nam Keenan Hematocrit (Bld) [Volume fraction] 36.2 % Normal 36.0-48.0 [facility] Comment on above: Performed By: #### L BCLH #### [facility] [address] [place] [address] Dr. Nam Keenan Hemoglobin (Bld) [Mass/Vol] 12.1 g/dL Normal 12.0-16.0 [facility] Comment on above: Performed By: #### L BCLH #### [facility] [address] [place] [address] Dr. Nam Keenan IG # 0.03 10e3/ul Normal 0.00-0.03 [facility] Comment on above: Performed By: #### L BCLH #### [facility] [address] [place] [address] Dr. Nam Keenan IG % 0.3 % Normal 0.0-0.5 [facility] Comment on above: Performed By: #### L BCLH #### [facility] [address] [place] [address] Dr. Nam Keenan LYMPH # 3.9 103/ul Critically high 1.2-3.8 [facility] Comment on above: Performed By: #### L BCLH #### [facility] [address] [place] [address] Dr. Nam Keenan Lymphocytes/100 WBC (Bld) 38.0 % Normal 20.5-60.0 [facility] Comment on above: Performed By: #### L BCLH #### [facility] [address] [place] [address] Dr. Nam Keenan MANUAL DIFF REQ NO Normal [facility] Comment on above: Performed By: #### L BCLH #### [facility] [address] [place] [address] Dr. Nam Keenan MCH (RBC) [Entitic mass] 28.0 pg Normal 26.7-34.0 [facility] Comment on above: Performed By: #### L BCLH #### [facility] [address] [place] [address] Dr. Nam Keenan MCHC (RBC) [Mass/Vol] 33.4 g/dL Normal 29.9-35.2 [facility] Comment on above: Performed By: #### L BCLH #### [facility] [address] [place] [address] Dr. Nam Keenan MCV (RBC) [Entitic vol] 83.8 fL Normal 81.0-99.0 [facility] Comment on above: Performed By: #### L BCLH #### [facility] [address] [place] [address] Dr. Nam Keenan MONO # 0.8 103/ul Normal 0.3-0.8 [facility] Comment on above: Performed By: #### L BCLH #### [facility] [address] [place] [address] Dr. Nam Keenan Monocytes/100 WBC (Bld) 7.6 % Normal 1.7-12.0 [facility] Comment on above: Performed By: #### L BCLH #### [facility] [address] [place] [address] Dr. Nam Keenan NEUT # 5.4 103/ul Normal 1.4-6.5 [facility] Comment on above: Performed By: #### L BCLH #### [facility] [address] [place] [address] Dr. Nam Keenan Neutrophils/100 WBC (Bld) 51.8 % Normal 43.0-75.0 [facility] Comment on above: Performed By: #### L BCL #### [facility] [address] [place] [address] Dr. Nam Keenan Platelet mean volume (Bld) [Entitic vol] 9.1 fL Critically low 9.5-13.5 [facility] Comment on above: Performed By: #### L BCLH #### [facility] [address] [place] [address] Dr. Nam Keenan PLT 342 103/ul Normal 150-450 [facility] Comment on above: Performed By: #### L BCLH #### [facility] [address] [place] [address] Dr. Nam Keenan RBC 4.32 106/ul Normal 4.20-5.40 [facility] Comment on above: Performed By: #### L BCLH #### [facility] [address] [place] [address] Dr. Nam Keenan WBC 10.3 103/ul Normal 4.0-11.0 [facility] Comment on above: Performed By: #### L BCLH #### [facility] [address] [place] [address] Dr. Nam Keenan PROF CHEM 8 (BAS METB)on Anion gap [Moles/Vol] 12.1 mmol/L Normal [facility] Comment on above: Performed By: #### B MP #### [facility] [address] [place] [address] Dr. Nam Keenan Calcium [Mass/Vol] 8.9 mg/dL Normal 8.5-10.1 [facility] Comment on above: Performed By: #### B MP #### [facility] [address] [place] [address] Dr. Nam Keenan Chloride [Moles/Vol] 105 mmol/L Normal 98-107 [facility] Comment on above: Performed By: #### B MP #### [facility] [address] [place] [address] Dr. Nam Keenan CO2 [Moles/Vol] 27.4 mmol/L Normal 21.0-32.0 [facility] Comment on above: Performed By: #### B MP #### [facility] [address] [place] [address] Dr. Nam Keenan Creatinine [Mass/Vol] 0.66 mg/dL Normal 0.55-1.02 [facility] Comment on above: Performed By: #### B MP #### [facility] [address] [place] [address] Dr. Nam Keenan EGFR-AF MOLDOVAN >60 Normal >=60 [facility] Comment on above: Performed By: #### B MP #### [facility] [address] [place] [address] Dr. Nam Keenan EGFR-NON AF MOLDOVAN >60 Normal >=60 [facility] Comment on above: Performed By: #### B MP #### [facility] [address] [place] [address] Dr. Nam Keenan Glucose [Mass/Vol] 105 mg/dL Normal 74-106 [facility] Comment on above: Performed By: #### B MP #### [facility] [address] [address] [address] Nam Keenan Potassium [Moles/Vol] 3.5 mmol/L Normal 3.5-5.1 [facility] Comment on above: Performed By: #### B MP #### [facility] [address] [address] [address] Nam Keenan Sodium [Moles/Vol] 141 mmol/L Normal 136-145 [facility] Comment on above: Performed By: #### B MP #### [facility] [address] [address] [address] Nam Keenan Urea nitrogen [Mass/Vol] 7.0 mg/dL Normal 7.0-18.0 [facility] Comment on above: Performed By: #### B MP #### [facility] [address] [address] [address] Nam Keenan Urea nitrogen/Creatinine [Mass ratio] 10.6 mg/mg Normal [facility] Comment on above: Performed By: #### B MP #### [facility] [address] [address] [address] Nam Keenan PREG QUANT HCGon 05-17-2022 HCG QUANT 532 mIU/mL Normal [facility] Comment on above: Performed By: #### L BCLH #### [facility] [address] [address] [address] Nam Keenan HCG RANGE SEE BELOW Normal [facility] Comment on above: Result Comment: 5-50 0.2-1 WEEK 50-500 1-2 WEEKS 100-5,000 2-3 WEEKS 500-10,000 3-4 WEEKS 1,000-50,000 4-5 WEEKS 10,000-100,000 5-6 WEEKS 15,000-200,000 6-8 WEEKS 10,000-100,000 2-3 MONTHS Performed By: #### L BCLH #### [facility] [address] [address] [address] Nam Keenan US PREG TVon 05-13-2022 [...] ROOSEVELT LOPEZ Date: 2022-05-13 13:02 Normal [facility] PREG QUANT HCGon 04-28-2022 HCG QUANT 139 mIU/mL Normal [facility] Comment on above: Performed By: #### L AMY #### [facility] [address] [place] [address] Dr. Nam Keenan HCG RANGE SEE BELOW Normal [facility] Comment on above: Result Comment: 5-50 0.2-1 WEEK 50-500 1-2 WEEKS 100-5,000 2-3 WEEKS 500-10,000 3-4 WEEKS 1,000-50,000 4-5 WEEKS 10,000-100,000 5-6 WEEKS 15,000-200,000 6-8 WEEKS 10,000-100,000 2-3 MONTHS Performed By: #### L AMY #### [facility] [address] [place] [address] Dr. Nam Keenan PREG QUANT HCGon 04-26-2022 HCG QUANT 50 mIU/mL Normal [facility] Comment on above: Performed By: #### P REGQNT #### [facility] [address] [place] [address] Dr. Nam Keenan HCG RANGE SEE BELOW Normal [facility] Comment on above: Result Comment: 5-50 0.2-1 WEEK 50-500 1-2 WEEKS 100-5,000 2-3 WEEKS 500-10,000 3-4 WEEKS 1,000-50,000 4-5 WEEKS 10,000-100,000 5-6 WEEKS 15,000-200,000 6-8 WEEKS 10,000-100,000 2-3 MONTHS Performed By: #### P REGQNT #### [facility] [address] [address] [address] Nam Keenan PROGESTERONEon 04-19-2022 Progesterone 12.6 ng/mL Normal [facility] Comment on above: Result Comment: Foll icular phase 0.1 - 0.9 Luteal phase 1.8 - 23.9 Ovulation phase 0.1 - 12.0 First trimester 11.0 - 44.3 Second trimester 25.4 - 83.3 Third trimester 58.7 - 214.0 Postmenopausal 0.0 - 0.1 Performed By: #### P ROGES #### [facility] [address] [place] [address] Dr. Nam Keenan PROGESTERONEon 04-16-2022 Progesterone 9.5 ng/mL Normal [facility] Comment on above: Result Comment: Foll icular phase 0.1 - 0.9 Luteal phase 1.8 - 23.9 Ovulation phase 0.1 - 12.0 First trimester 11.0 - 44.3 Second trimester 25.4 - 83.3 Third trimester 58.7 - 214.0 Postmenopausal 0.0 - 0.1 Performed By: #### L BCLH #### [facility] [address] [place] [address] Dr. Nam Keenan PROGESTERONEon 03-15-2022 Progesterone 6.2 ng/mL Normal [facility] Comment on above: Result Comment: Foll icular phase 0.1 - 0.9 Luteal phase 1.8 - 23.9 Ovulation phase 0.1 - 12.0 First trimester 11.0 - 44.3 Second trimester 25.4 - 83.3 Third trimester 58.7 - 214.0 Postmenopausal 0.0 - 0.1 Performed By: #### L BCLH #### [facility] [address] [place] [address] Dr. Nam Keenan PROGESTERONEon 02-15-2022 Progesterone 11.0 ng/mL Normal [facility] Comment on above: Result Comment: Foll icular phase 0.1 - 0.9 Luteal phase 1.8 - 23.9 Ovulation phase 0.1 - 12.0 First trimester 11.0 - 44.3 Second trimester 25.4 - 83.3 Third trimester 58.7 - 214.0 Postmenopausal 0.0 - 0.1 Performed By: #### P KIAN #### [facility] [address] [place] [address] Dr. Nam Keenan Coding Summary.on 03-30-2021 Coding Summary. CD:[id number] G h0bWw+PGhlYWQ+IG7CSVM bT89eaQJthV1XR7eUZK6P RJSFAZASWA2WTR4auQU8Q RcnS3UxylYt UzpabQYfTV77JUs7DQE8z WsvFVposF0ugLBaI4a2Xj WsFC80fH94HKlsMVFqIbF 3LjZpbjsgbWFy S0deWwHboGGbMtg+PHRhY mxlIHdpZHRoPScxMDAlJy AmjJbjGD6mTb1hPROuMUD vbGxhcHNlOiBj f8khQVYaWAvqRS3iqJehM 2KxlAM6QMFft7s8Rv42vM I+VEDdFOH2sEzlNTqad97 5EsJdd6shRSU4 sWZyXHmlWOA7L31tt7H8N AYjTKPvOLG5xDN0aC5coC wxufooF0ZeiABqLqS4ILF 8hYRrrT4ilMbd mdbmxE5nUbm+X39AMU0NW MOBTU1KXay1S7QdCelarF I+IG65HSYoAP08tWSqcGL ao7vjrAd1OiPa GOSzENK1xXfoFMavg2HhO TFyI40roFEwc7P8UCAuqW oreHVyTjLdbDV0tR1bQPo mnclup4nagrrw Vfqux1gfic35tM33C14rO GipAGJkAEW5UUWcTCTojE nyrw0hoZ6sAm1+CCstu6i ra8twpYi3NaEk LPShtxGocRnmVMR8z3AhC b02L0GksBxzs5GeIxm4zo 94tSDec8Q1mDH3NCxqKLN daE8lXOnyUwW7 GQUrWfIdrX84yFXvMJczS l9djWmitZrlJM4pZDZwnb bnWCJapV4hBAIosULlaEs dJC9aOPCvynva f883SeFrAHT4UUXxgGNkG 3RdiA3uXhPpBRFhZZOjE7 WhuBNfCVnhK815YSdeTaE 8ZPSuldMxL7Zi FONcxXrfPpF6i1I9On2Sk 5WdepwsERT0QTprOMKvYv UyKbSnGkL3W1ZoEcz3UUT rxJmcVO9dR3Pp MXGayncvfvdrdVN2UPFuI HHlaK04bLHqIQilLy1ra7 I2a898BSOyOSNpcG92Ao6 udDogMTBwdCBU pZ4qkdfqr3sseaxcTzPjV SMyMQg7QBu8SPGvbJwkVd KhVJE7MlG1NWY7qXScbH5 rlDihhbjarA4u Oyc+Z10ebD8sGCV1OOC8e aydXJYnluOwFP62UF69E4 RyPjwvdGFibGU+PGRpdiB eyYqdOE3iXcQg i5tam9ZsDZpxA0VjRJGvZ BrqAos4OSXgJTE6bHO1iP 3kDHMbUDerh0O4rNU4S8Y yhcQjjc5gg7sc ETDpUUkwF55kxTRxi1B1R VVksIL0UXDklXooRqInuI 93Oyc+NKHmxHfie0ElKec wr4fyb4kzgPp6 WrTjILYgelUltMveDRL6r 2GpRo61H28aGNewOSPsAX RsTJBiJQOfzBcwhq5hdB8 wIi8+PGNvbCB3 eOR0xC8bWBTnWcJ1MBlqD 857FyFujBJaGchyh1awo9 yzuHp4KqLaBGUsupMoqYx sTYV5p4YzXx56 C39zDLnzNQOqGNHnZYXkA EHleBsirl0szR8pWw3+PC 7qa6kpjc90xH91rVO+PHR ePMM3qHvlOCtf NDTbuY3xDVoqXrW0ODTdO tJkvI46yFSvUEydAn2mnO iblIagUL8pPXEcjyriu37 6DhDmu6kxKKWx mLBsKXnkOKX5X49ok4X0R FZlVAFbWMI9zKH7xK2jyT lnbjogbGVmdDsgdmVydGl jFRvmGQzvE985 IHRvcDsnPlBhdGllbnQgT cFeMIh7J2AvBeq7MFEveV nsNZ6dgVAlVZrlKf3xiBn csSfdGD7oZUTs btcmh589ToRac4deEWVpy XJgVMlhAPC6R41fs7N5JK BnJEYxLBL0sHA9rU6vaWl nbjogbGVmdDsg ygFfsGuuOEfiRGusI477Y HRvcDsnPkJpcnRoIERhdG O9NY10YW31lHBzp9G0tHF 1Y4KeQZMfkrbd xwmhxSI2CTMvNONqgR22I b8poYyfCb3gIVOqSIS5KG OpkQNqS1OfxD2xViAlIOZ aUDBxR7NcwKPl PJmjU783XGiaUyU6PSFni wChK6FsQJLosHlbUxF5c5 Y7Od0GB0J4JE01FC63xDV jh3S5lYA7G1Vy VMKkhmloepihlLS7INZvM OTpwE50Ca2htLnkJd1kIU OqLZH1OAYezHGgT1RdhR1 yOiAjMDAwMDAw V3HcaRWzHLjoZ732BWpaU mV0VVKbvtQyS7MkXUCgsX kjLrY8u2D1Jw5OIXw1YF0 0IZ71kLHha2E2 gYG7N3EmGZVpohbilwgtc YD8OTGjSHMwtQ45Ro4htR wuAy6uBJGpRLT0GMZhmBU oL5PekP8tRrYu IIBkMBJcH9LnyJQlLKsxC 166AZdsSdH8DGOmkhIeM0 YfCQOjpKboKqY3z6G8Wb7 HOJMaAX80DNI6 bME4WW00GH35V7QpLbujq GFibGU+PHRhYmxlIHdpZH RoPScxMDAlJyBzdHlsZT0 rEu4eVEZaCEXl rEmtwCMoIvWhn6guFADjB RgoSE7myJzcB4KqhBI4AM Uzb4u2Ah58B93dY7GjyKO +RULedAN1kZF2 iV8jPcHgTlR3MYgnM163V aYpbJWnIhrci6ull0vfoP j2EfN1ZQAwmbCptQjzIZF 3o9QfHp31O84z IHdpZHRoPSIxNSUiIHZhb Owxyj1gvR8eMc6+PGNvbC G1oDD3tT6tDeAtSeJ4DNi yB292GnBsiMDl Bdton7umb2vclOz2PgTnB YUruwAteGcxZIZ5v5QqUr 70Q7WnjDfvc8MoAei3vw4 0fFGcs6I9oWB6 K3HkAMSciuogrLOtlOspT T8pOVKvgypzJESseJ9hSS XvB1f5MkGdJvA7CAqxE4T vokW5YBPabZNk SUlzBRB9H28zn5E5HBIkB ZOpVGG1bDF6dH1tbSppgf ogbGVmdDsgdmVydGljYWw qOZqqR010EPCi eMnwDAPfqB8rDQZxwPYaw CfaMQ0pVYOkdoglXp6RHD sKFybkTjEOF2cANZQFVB3 9HZ44hHFnj8Y6 mAH4D4CxSQDwrpsiijtde TY6GYJeFCBxuI89ySJwHQ loAp1xn3U1a187PBQgEGM lhE37Cq2usEfm OJLbuNABeA0yratwg6xya kqwToDxVEBxULb8DCd3QT ZdsSacBaSlXMP7RnQ3ZED 2mNBtzY9tmJek xxqgbU2qXyb+MDgvMjEvM Fp0HLuyhVW+AXMiXLT0qJ ssZJdkNKJgxX7qZGMdN6u 0QwHjCkT1YPus P9IiYSKgrantWp67hM3eM yJkWnX8QGrxS1WkhwL8NU NmpUFqGLpvWLG3V17az6K 6ELZaQLJiNLG9 dOF5yZ7waMdwoazlyISkd DsgdmVydGljYWwtYWxpZ2 46IHRvcDsnPjMyIFllYXJ kVM16XL27sWCo m2H4tCZ4Z4TeOGUgnvuae yhscIC6RGNyUIRxcF75bT ArPRmkNh2md4V5s438GOX sQGVahQ04Ty7t hFfuCMUvnIFIdU6nkqkqx 9cwoerpKqYaQRZcUWy2WY r5FHRpiTrlXaGjUSF8YvH 4IQP3pLJumO9t gJlonbjxpY3lMpa+RmVtY JyjQC77YC99nVHlz6S9vM K5D9RgOONqwltlhxgjaMA 1GDTkJVMbeU86 nEJnKKkyVa3ae2M2n349L HGhEWZpsT48Za1kmPxhIR HcwSMExY0epztdv7pmagi gIzAwMDAwMDt0 JXd4LONvyQolPiNoIHQ2V cJ5FPC0wROvcV0ozSipfm duqW9zNqc+E1F1dRI5jFJ udDwvdGQ+PC90 ec53O4MlOlbeIba8LRJiV DQ5nGL7eF6eYGMxZWmpq1 D7uNK0N6VbitRtwz3cg3a vGCMzYVomG38h sTDfx3P9AEQqpDG7WBNgd OpyUdKevV05Kee+PGNvbG scc2WtIftvq8xuf8tgyIa 9IjMwJSIgdmFs jQuePEH0v3SbRi00P95tU HdpZHRoPSIzMCUiIHZhbG lhjk9bpK6vQs4+PGNvbCB 6xWV1lB3wUxVv LaU4NKmtK975LdWbwDIpH bkgh5pzf0fzoZm2FpFcJD JcxnLmwCxbUVR0f2UoMj5 2F1RlnJiay4Yn Frp8pm68cUKjj0Z4yAP3Y 3BhZGRpbmctbGVmdDogMC 3xAOVenysuKQOczI3zKPS vO0z0TaTwKhH5 WGkbJ3YfyxM4ADZcsLDyY DPnwVULiA6zlmzvw1ynzv ghLcGqPAHwNQh9MHb5LLU saWduOiBsZWZ0 AyW6HOL2cYCeeM0ttRmok tmdxQ8pEnc+EMc4l5wxmC RkIL0hcUX5HJ83IB71fIT sj2F2jVJ4U2Gl GAKfajyeqijtvJJ5BADzQ MIgoR81Ot6ssVabMs7cLN EhQCI7UPJctTWbV4FuoL3 yOiAjMDAwMDAw G6XprTGiSOxcS852QZswP qT7KEFydaOcK8OwGHJglG leWtN5z7X4Fr4UMH58WS6 6EF12jTSev6M7 aXS9S7CsFRQeumfcrvnsu WT4TTZlHXWsrM11Bq7ziT bhNa8aTHEyZHY5ZNBdbYL cD9EfrM6fDrDt ISAqHUZiA9HtdWHtDTznS 255TGyiHiL4MZQgexXzP6 VeDRBieUxzTlI0p9V9Ut6 ECf08YC23ZF30 oMCwr1T9fGT3Z5UpMVAsm srjksykhEY5ZTAsYGYcnN 73Wp4bmBrvQh1eHXFoNDW 7VVGyySGgO4Yp sB0oGqNxLGTuCEBxJ1Rzp OOfPMexT060FNzeOmS5JJ GhmzVvY0TnTTIlwQqcVmN 0i3V8Et0MNTnv hgj9Z3MyEcrtvSE+PC90Y LKvVF58nAHmpLXib5avgA j1KwVnZVJpKGX8wTmqTMt zj3DzQDPdN62u bGFw (more content not included)... Normal [facility] Coding Summary.on 03-18-2021 Coding Summary. CD:[id number]:[id number] G h0bWw+PGhlYWQ+YT7PNAG lX69arAZxwO7LN2mLGL9I FOKCZIZXPL0VGX0oyEJ3J KhdB3BocnDr GaooxQWsNH19DTj8QGC8t VvaRFkxoM9yyEPgI3u1Gd KyYG76hH88ATsfAEAgThO 3LjZpbjsgbWFy I2wbVcWdfYNbCvr+PHRhY mxlIHdpZHRoPScxMDAlJy QktJbqII7hFt9eVEUsITN vbGxhcHNlOiBj e6wgZUJgPQryDC7oiVavP 3YscKE1ICRuu0h6Xm78dQ I+JKNzUZA8nDrqGIasd87 3AiHyc9wdMSB7 gBChBEagARD6U58ic6P1F MZjKRIxKEW6bGP4wN3qeH lpetomX6HbzUKyJoY9WUJ 7oEFygU2qdGhf mpedfZ8dEpq+I98FUI7LY GGFRP4MPpv4P1SeEempuY I+MT35CTHtPX20mKYfkFS zt1wxiHx3JbPn TSXzICN9nAdlRCifs9GzU RFkS14nfCLqi4F6JVRqiR jmpOMdImQfpCT3jJ2rSRp viohao5joaksc Payll1ntpf17rK72X09dM RvfJILnCRZ5ANDuYIJmjD memi8rjI7sWk6+MQxli2n kx1ipaHc1StQn FXPtibDseNepPPM3w7ZiO k98Z0EpyFjjj4NbXgn9td 20rKLxm0E1oDS5OQhhYQU gzB9dVZrtNoG1 IULhNgUvbY87hDEdEElhZ z4tpClmtXwdMZ3rBJXqrh zyOWLyoM4qWPHtwLKorKz vII4pCPSnmjqp i780TrPpIVO8NLLanXBuW 4JysY5tDgWfGILsHHJfK7 OoiQAdBRtfU050YVqoApQ 6UUOacdLdW5Ug QALwmYxvVwF8j3F9Mn3It 1OfzcbjQPZ3ACmqCNRcCx H5LzYuHfG1N6HcSlc0MPO ahDdgFQ3qZ9Ze HEPnxpwwrqwdvDP9CMUlO RMtlG91wXFyIBczGk7ct6 U5h862HUGoFXCgrN26Ou5 udDogMTBwdCBU qR2irnusf3fqwvqkQsUpL VNqMFc3RGk7OVUrkEmaOm DfFRT1WfA2VZZ4qWEpiS7 mzZlslbmzsA7i Oyc+G57zaD4dXOV6QSF5x piiDOVhbzLnXL24DB25D6 RyPjwvdGFibGU+PGRpdiB tsDxhEH1qZoJz n1gpo6FiLRjsQ8TcJVBnA KwaXiw2EBXwKVL2bII1aF 1zKNPbMIhst2U9wPY8S7I btrXxrt2jc9ks KJBaEPptI14vjZIfv1M0W WDcaTB3FKPczLmnOiBsqY 93Oyc+YTIycQelv8NeUij di8rkf6wtiJe5 RcArNGYxbrWtyIwgXPH1r 9YwPy72P67mLFziBYNpGG LbSILgYJFlhNjbyt9quD0 wIi8+PGNvbCB3 cGG4nO8oFDEhZbU6IMpzT 406TgLksIDoBbnqx0mkv9 araNm7AcFjJKVgwlApaFa lTUU7t2CxLs64 J73dBZhqOJMtBLWnCFPmF SOawLeslh4meC8xBf9+PC 0ye6kdzn73dH39hJN+PHR hTVJ4iIqnDMdd PZTttT0bMSipScY7LMQjO pWohT75iCFtYMjySy6twE sgqOyqPC1vAPNokndld29 9BxSyv1tbJMKj uHSzQMldXVA9J03wn1B9A CRsVHLjONE1nKV3hI9woY lnbjogbGVmdDsgdmVydGl cAAdhGSwsY327 IHRvcDsnPlBhdGllbnQgT uRmKWb0I9GvBwr9LLRhpA vvQC7fwWAhXVbjRa9opPc rbLlnSZ0lATAe dcbok185EqRve8kaFTKen BRdVFwgFFN7M21yt6R7EB RuTVHmGJR0cAH8yI4diWh nbjogbGVmdDsg wpOsjVlkIDutOKitT141N HRvcDsnPkJpcnRoIERhdG P1SY57OC87kEJds4N4pWE 4I6NrVKIpqbgx lmmiwFG5OQHyDTZeyO59U d5ezHjgFv0qNOOiVNI7ZK RogKSgK1UciV6vBkWuWFE kUYRcD6IgvDTo LHvsR035IItgRkH9OPUgk tRmH4WoJJQkaBkmQzH1y6 O8Tt1RS4N9JC61ZM91qFL fj2V6qNG5A4Gz VJOshttlmafwkGT0VHYjC ILahL72Ql2zuObmVk8qLE AqZRP2PTCkzSIsL0XomK6 yOiAjMDAwMDAw Z5RbsCVbVDxgA395DHsyT qY3ROEivrNpX4LtJAOugB otJnW8r2Y3Ko7SAVg6SC3 8LB26mVZjs2V1 zRR7R7YyFGRkcihdsvqrq ZX0OCBtKPUeuH50Ct1aiH ppZp8iLCLaZEC3CSKjtBM rH5KzgI5tTqTm KHTjVESeU8BxxAHuVOxsC 521FCptEuQ4YRNccbIhU4 OoBOZlgWfoBgU8d0I5At7 OGSJlAH56FWM9 bDK7KC19LY44J4UqEbanw GFibGU+PHRhYmxlIHdpZH RoPScxMDAlJyBzdHlsZT0 jXl9pHSJrNYFb qVecuSQzVwSzc3nsXTUgL IcsVU7eqAngS8MosWR0UL Xkv3o4En80F46uV5PtmFT +COGixBF4iUU6 aE9tBqAfJxZ5PQskW152O sMeaSMfAzkvt9hje8tufT i1ZuT3PTLsveUjfQlpKOV 3w8RcXv08T71l IHdpZHRoPSIxNSUiIHZhb Niesd7sqC5cDv1+PGNvbC J9aFF8xF3qOiGqPxR5FDj zW721SaAzjZVq Joakf8nuf8gpeOe8YhVoF UZxcoVjpXdoFBF7v9SvSd 95T8UdwElbi6TfKfp1xz0 3wLNpp7B6zUG0 I0JyCJUulbnslXVaxFwkI Q5kQOHefmygQQDimY7nHA EjO4b2PhLaHvR6TNkvD0Y auiU4MLZjzJAw LEhcJHM3O60oh2E4LHArP NEkFPL9fIP0rB7feZgxox ogbGVmdDsgdmVydGljYWw aIPtbR017NHAr fOpnKJVoiU0xJXHybBGza NsqJT4hTTCwiatjGg1OME oFShfzAuGNR4pXUJWCNH0 2HK23tXVzf1W0 hDT6E1CvRJGbglmesfkiq IY0WJXwVYTzcM30lQPyUW esIn3dx9B9s548GUQyHLA nvO61Tw6onOvu PFPzgMBAtV0ffqisi1uvm avhPaLrNFYnUKa2GJq1GK WzlIcbPfDbLHS7TcU6VHP 6gEOybJ0soThh jefruE7aEed+MDgvMjEvM Bi0LFesyJE+RKCgVKZ6gV luULnyBVGxvF8nQDGhA7c 5DuRrMoA9RMwk R6OlZDImixyfVt56sI0oP bHaVqM4YTjgD3YdmfX9BW VajXYdUKzkMRM5P07vo3B 9DIYsXVExQCA6 iOV8aT8lyBotxdjqzCKlm DsgdmVydGljYWwtYWxpZ2 46IHRvcDsnPjMyIFllYXJ yLG92OM35uNOw g1E1gKW0D2NvGMZizxnal owveUM5ZSCiHLIwaX31kS VkOQqaXz3xi1J5c322ATR iRKIafT75Gh1q pEzqMMNllYWQiB7lwsbqa 2qyvjtlIbHmVXAiFXb1RR i7NTWmrGxkYiZsDNZ5YgR 1AXX2wRPlgE8d uRjhhpfrsR1gEyu+RmVtY MlsFC26KO36dNHaa1L9yE F7E7AgVXWqtvwfqbtxuPK 1KDZpXOMltZ27 aCQgTVhdDs6ko6K1y513X LRpREXmeR96Ci8lzWkeAB BzhWEZmB9wyoihi3bdrkk gIzAwMDAwMDt0 BUh4XYHtiRdbLxMeTJC5R kH0TOF3xUHdnT6niBvtrd kayW6bGjn+QI8iprqfakB 2VY85IA33V6Bs PjwvdGFibGU+PHRhYmxlI HdpZHRoPScxMDAlJyBzdH beRG3cKe6gXUFvMYSlgXe drDMxSfZwn7qi UIKbOWaiQX3jePenC6Vwm IT8TTStx9p5Pe54V60aU5 JvdXA+YHBibJD0jKW4jJ6 kXjKbCfA9GTyt A522HhYrlSLiTicip4xpo 6agkTj3GqVtAYQyadZfaK xaKJR2v8LdTo31Q66sREm pZHRoPSIyMCUi HGVoiPmads7dtA6mVm2+P JHurGQ2zJQ4nI4cLeCcRo S8FMbwO175VlIlaQCbUle cI93iX0AexYL+ NSXzNrp2SWJzrIbuQS3dq FHdZCtgAb9hQXB8IyTjMs GePFpgD4MbPNMjyimhkzi ooJL5XOExPWQu aK50Oy8bdRlfZh0tRLAzV GX2FMOgxSEjG6BqqL4yKv ZrAYXxIMErP0XcvXKcLYw eE726MHokNzN1 NSWolbXsT4CwGGQrwHliZ tG5i4P1Oa9YbXkdjUGaGL 6yDjEfMAq4Z9FqIcj8LHZ rnMsbWK5jeURw XZktOp1ldHhjzArvSM1nJ JHmilxky360ZlZxy0lyBG WjuFGuJYsnGJW0B83hd4C 1GIJrOLYaIYZ4 tND4aJ2eeOgxisjswWWur DsgdmVydGljYWwtYWxpZ2 45RPJpgTlxCrRDTcw3J3V vHej6YALjaYxo SF1jvQArSTssYr0koHcnu HcdXB0mCZQhyfhtc715On Hug7qmSSNolBCwUNojXXF 9Z69yq4E2TPTz BTHxXJG1qST4pS0xvLxhi jogbGVmdDsgdmVydGljYW ogLEqeZ995DMSzaEszJf1 RBev4F7ToSzi6 UWZpaCpmCL0thNVbIInrW l0tgCyceMaeNJ3nVYPhjy evz546PrSta1tmICJmqKQ pVTldKGW3Q00a h7R0RODiGBCeBDL5uOD3f D8zeJidxafqcFMfhLjurg EnzIluPXmfJDscQ441QKD vcDsnPlBheWVy OjwvdGQ+NQ51kj91J5CeD wlaQrn0HQXbYOA7cDV5bT 7iLKRjHFugi3C8gCW8Q8J narTdbv4vx1nr YXBz (more content not included)... Normal [facility] Coding Summary. CD:[id number]:[id number] G h0bWw+PGhlYWQ+YK7TOIL rL46qqRDhqL3LJ4kAHZ8W QRCMUSAJCO7GMA6rgLR9X GpkH2MumnIp YxnngDFcVB00DHa4TJU5o WcuMOzpeE1dfYItC5i7Ox SyBZ62mD07MKbkOLHvEzN 3LjZpbjsgbWFy V7xnPzSxwMDsAen+PHRhY mxlIHdpZHRoPScxMDAlJy KicPpaFB3cPp8aSWTeHKS vbGxhcHNlOiBj w4niICFeELvmWJ4scOmjI 9ZlcCH5MXSnh0i6Ji48oV I+ZOXmEBP8vWllLAure18 3IvZle3yoZZL5 pYRdYNtmCAH5L28jw5I7F UXlGKXaWOO3mAJ0eI9ctO qvcetsY3IppFBaOuV3WCW 6bFIblW7wgAps brwjiE0uPal+L25SHC2TI WJRXP0BKvy0E9VxDlrsgK I+RJ88RGSeUZ15qMLmuLU gs9twaQw2UsCp FOPmLSM5fZpkIJftv4RcE FKjS31lkYZwa8F0HEOojJ tooMVgLuNkvRS2eN9vEMx vnlpmv4taalec Chshb2suzy91cT20K38vM SboHLVqFAT3RUHqCCTukM hmsp4hbR7dQl2+MTlzl9n uc0fbwDs6WlMc YFLzaaHuzSivQLK2z9OgS h02V7AooGxqi2OiMaf3hn 43uBXuq8X4rKF9NNxqBTM jkZ3pXLmqOhK7 CXWqMtVwiG00tEEtDZjsA l5laMrvsHdeVO0fAZPkdd qoPRMfrW8pQNHasYWdhBv mZY6mYEDppzbb z631ZsEuRVD4BHCohHYsJ 8FcmK3oYtKkLIQdBLVuW2 VlhSSgGPbyO168EJkzXsG 9MGBefyHoG2Sc FGZnnAwhYgX3b5N3Ef0At 2EzobslDOL5TAcnFOQdRr O2WkOzGbZ8A8XgOsv7VUO diFkzPL8tX4Vx CEMekvgxslcieLI0RAUmD QIdtP69eJKlVKtjIt0ig4 J9s592QDHlZQYwoB30Yg1 udDogMTBwdCBU yY2efrglj8cevbucMjZaP DTtZXx8AXs3NVFzmKlbFo EfOTK3GtE7AHV3cHGeoO9 awGoebeqnrV6t Oyc+Y13nnE2cDKS3ORD2r bhfIWIyoiEeAM68QU13X4 RyPjwvdGFibGU+PGRpdiB bhKhtFO7tMoOw z9jvs9WsRBtbM7IcSLZnD BhvXci8SQXtYTA4yWP1sD 1hSTRbTFzjx7H9wKO8P1G okeEcyj6um1ug DIIqPOzcR12heERiu7I7D MSkaBN2GLSemVabObBgiR 93Oyc+PIKmjMqwz8SxNfp cm8xvv4wgrJi7 AsMkCDJbwjLeiSvaUNA3q 4MvPe46E69cOJbeQNCgZS BjIARmIGBmtVgizv6xuN7 wIi8+PGNvbCB3 pRE8nB6xAPLtWwZ5JAtmN 464SbIdkBGdSugcu0rqb9 bysZz0GtAjWWIlpeCgvCq yWNQ2n3WjRa87 S66mCWaiXGFmAFTxNNNdO RJaqViedg5pfA1zOd6+PC 4mx3odvc09sT14wUR+PHR eRPS6jSdyXJtj YGOchV4aFOghLiT7TXOnL iTdxT74rYDfSPgiGj6ytS dqaBfdBU4gAYCoqkytb44 7XpExn4fkKMSk hLRcTVwdVJW8A25hn3Y1S HHlUPRtVOT1uBI8aV8cjJ lnbjogbGVmdDsgdmVydGl cVFkjFRnmZ006 IHRvcDsnPlBhdGllbnQgT dUmODo7H2PoMea9ZIRicX ckNJ2qeYMdHAjyPh0kaLl fjCqmAD7xRSEd mgjby157VmYbx7ekPHCfm YFyJMzxZHR4X58gh1U7KF RiFBSqGQV9bJO9uN2vcBp nbjogbGVmdDsg aoVgsSqzHNseCEdyP742F HRvcDsnPkJpcnRoIERhdG F7KZ60BG03kOLig5X0tQC 1D7WqPGDmvibe mxnuhTR5ERTbYIMwxF86F p7seHhgBf7eABAjDEH6ML XbcCXoP5OtgE6cMcBsNKP oCHSnL6TzuMOi AGuxG443UYcvCqC6UYIvq kGkE6WhKXTjmEnwLpB1d2 W9Qr2QK2S0DY68PU50dVY si0P8zVD5E7Wj VPIckaifmvxofYX9GNZtB WOvxO15Ds8ruPyiVj7vYZ AtUEZ1VGVdlHShX3XgnF8 yOiAjMDAwMDAw M6GqeLNcBZlbC561FRgdB mS8BWUwjhWfD5TuNFVwwI acAsM5b5P5Gi7QSBu7PZ5 1NP06lEOnr1T0 jPW2I5DlKFTgwzulyytvh VU6SJLdYLFidQ43Hf0adY upQc4pCQGmPKK6OZMgkIH uP4UncA3pMxOz FOAjBZBsK0ZslCDcNOgaX 220QZioIbT7PBFozmDcT2 MxTSIhsYpvHnO3z6C3Zd0 AXGChVM74QPP8 nWY9SX00LD82U8YcNtuys GFibGU+PHRhYmxlIHdpZH RoPScxMDAlJyBzdHlsZT0 kXe5dKHMaGNRm oOdcjRXtJsEqa8rbCOVlW DywBQ3lrYvtR0CbnSU7ZE Oyl6z5Av17C04vL2VllDA +IHMlfSB1aZG4 fC2nVkGcPgK7RDddB334B sBayVDfCnxij5uwn8bmsK c1IjJ6NQWkdhVvzJncDMJ 3c4HlLz08T16o IHdpZHRoPSIxNSUiIHZhb Mtmce3otU5xNh2+PGNvbC N7eBQ4aR8fRxWrLpR5VPc nW470CjNbrYDx Osqkg0hrg0pscYl8EqVbS EDmkcHtkDgvRJC6k6DpYr 80T2FnuYnln3YpQuk2cg6 7sVDmq9I5oHU6 Q3QyNVDhegabaWKbfKmmV B5gIBFsbeiuNTCglO9rWG SnH9s4WgQrYdX7KGrmP8A iksB4JMIspYGt OCemMQO9B04mb8C6BQUeZ QRsYGX5rRO0rD0qcVrmfo ogbGVmdDsgdmVydGljYWw mJHanY431LFEn bYlxJOHodP0rMRUbpDLlz PzdRR7qHTJlkemnUh0AIY yORehaQvDQQ6hEBNUOCZ0 1VZ85eLWke5F0 hYJ7J1IqGQHzcgfwihzgl GU2FPXtAFAouH13vXOcTH ptLu8kc4L6n673ZZYfUWN ggN86Fa5scIiz SMOakDFGhN2odjrps0kon fxsYqNaTDQeZDg3EYq3OG VkuSplNnTsVMQ2XcI1JEV 6iQImfB9nrCdi lobovS3mIvz+MDgvMjEvM Ch6NCbxiWA+OOTjPIF7eI oxWXcpVRRcyI2cBWVoO1h 8PjPkYvQ2TZxb L0LmYOXqnzqrQr05lO8hA pAmXsM1ALgrU9FtueV1IV FhrJGhVJkeSHH4X80sw6I 0FJPdFQQkFNF2 bYF4zK8uoFkqugmohXOkn DsgdmVydGljYWwtYWxpZ2 46IHRvcDsnPjMyIFllYXJ yCT29BQ29fNKp a6S8yUT6I7YpTKDznwwht czlvCG6PZYxVOGjlJ12kL ElUWcaYc3no6M9k479WCT bFDIiqX65Ra0x uTloSRLohYZPoF0akshvi 9yetkkmEwVhTVHlKWf8UW g0AORjtCzhDgTvWYS0DhN 1TGZ1kBVwqL1m nDthhfbixO8hBav+RmVtY JfxNK05HD50xZSey0Y7fF W3S9XcEMNkkdekhgcmnKO 9GXVmLKVkjC37 tLPbWDiyUu2yl9P8t262X KDpMIDpdY60Sm4fiJveMO HgnFUDuL3vpiizs3jwbdb gIzAwMDAwMDt0 UDb9INIkgBxzLrEvUFF4O mN4ULO9tTZydZ3fqPfojo btgJ7gXbk+FA2jvhaxyiU 4PV80CF38Q1Ta PjwvdGFibGU+PHRhYmxlI HdpZHRoPScxMDAlJyBzdH qqQL2aLa0lNQWuXVYhpXt ojHQpUwWyp9gk RFPcWTybOE4veWmrQ3Nkv LV2AWNie4q2It57B48cL4 JvdXA+IEOdoNT7fMI1uT1 zEdYyCfF7OBic M471UlMlhWRgWtasg9gtj 2vitKj2DlClKWHaixLhcF viBBJ3h9PnGq81X85oUCe pZHRoPSIyMCUi QJCdiPdqvp5ydI5wMt7+P ORjqRE1mXF3mA0oUmScIj B1SQzpT777LlTogQHaMcf aV34qE4VonQN+ KANnYci4PXQhgBdvBC8qv YBwOXccPg6gASB3QlSaBo WgYWjrJ3WsFUVirbpbbuc fqJR5UAYlAVDm jT44Lx3xmEqwLp8kQSBtD FG3VKRahWSwY1SsmR0dAu QhBSGlJDWzR7YaoKDtVTt bI584UQdrMnS3 YLMageXmG2YtRMWbnLxbK nA1a8G1Dl5RoEwocBFpFH 8jOvYaGYx6I6KmOoo3WJK weJovYE9djRSh VDhuNj9dlArfzMtlLI4sA CPtncgdi911PcSjs4eqJX BngNXuFUnuCMI4W39lx1K 5EMBjABPyTGO9 gEP4wK5qyUgwmzxenVQrk DsgdmVydGljYWwtYWxpZ2 99UDUmyZqfGdGVPzi3T6H gXiz2IFByiOsj UA8tiVAgWPjlZt8jqXexr NekLV1sUHSsddgjl042Lp Mwr3atKXPpgMLkBQigTZG 4Z25lq5Z3BBVb KQDoFAY2cGS7fD8pgGikm jogbGVmdDsgdmVydGljYW xeMFekF166OMZzfCrpIp5 YAzk5V5AiOti9 QXIthPukNM3lrGWqQZhhV a8ckYdfqYvvZP9fHJOxqu sus507VjMwj7ygQNImxFK wSYoqQJU6G69h a3P9ZEYcWUIkLCN5vQM4o Z7eaZvsfcbozSRcsKbonp BolHbiXQdlIDgxG734QZA vcDsnPlBheWVy OjwvdGQ+AO17fr75E9YmN ndqEtr5NVDmAPS3gMU4uP 8mOWHcMZwja1L9pUH9J3C iztQkvo1yv0qv YXBz (more content not included)... Normal [facility] Auto Diffon 03-12-2021 Basophils/100 WBC (Bld) 0.2 % Normal 0.0-2.0 [facility] Comment on above: Order Comment: Order Added by Discern Expert. Performed By: #### 2 368722, 0280747, 5723846, 3940815, 58569684, 44931916, 64051218 ####[facility] [address] [place] [address] Basophils/Leukocyte s Auto (Bld) [Pure # fraction] 0.0 E9/L Normal 0.0-0.2 [facility] Comment on above: Order Comment: Order Added by Discern Expert. Performed By: #### 2 375102, 2456174, 2047850, 3835997, 94636276, 42329060, 72386618 ####[address] [place] [address] Eosinophils/100 WBC (Bld) 0.0 % Normal 0.0-8.0 [facility] Comment on above: Order Comment: Order Added by Discern Expert. Performed By: #### 2 848829, 7719934, 6919249, 7883249, 74713477, 57552143, 95008195 ####[address] [address] Eosinophils/Leukocy jacinta Auto (Bld) [Pure # fraction] 0.0 E9/L Normal 0.0-0.5 [facility] Comment on above: Order Comment: Order Added by Discern Expert. Performed By: #### 2 823399, 6101550, 7357584, 9279665, 65933133, 13963191, 96999798 ####[address] [address] Lymphocytes/100 WBC (Bld) 19.4 % Normal 14.0-50.0 [facility] Comment on above: Order Comment: Order Added by Discern Expert. Performed By: #### 2 692698, 8611668, 2211293, 5056619, 68559983, 91789574, 42558909 ####[address] [place] [address] Lymphocytes/Leukocy jacinta Auto (Bld) [Pure # fraction] 1.0 E9/L Normal 1.0-4.0 [facility] Comment on above: Order Comment: Order Added by Discern Expert. Performed By: #### 2 616945, 6720134, 9944489, 7127284, 66795857, 50088611, 65400501 ####[address] [address] Monocytes/100 WBC (Bld) 6.9 % Normal 4.0-14.0 [facility] Comment on above: Order Comment: Order Added by Discern Expert. Performed By: #### 2 073814, 6533124, 1544150, 6138351, 27685938, 61527985, 39357048 ####[facility] [address] [place] [address] Monocytes/Leukocyte s Auto (Bld) [Pure # fraction] 0.3 E9/L Normal 0.2-1.0 [facility] Comment on above: Order Comment: Order Added by Discern Expert. Performed By: #### 2 651235, 6505355, 7067511, 0501525, 46507297, 96913566, 25812607 ####[address] [place] [address] Neutrophils/100 WBC (Bld) 73.5 % Normal 36.0-75.0 [facility] Comment on above: Order Comment: Order Added by Discern Expert. Performed By: #### 2 378253, 9204672, 1410716, 6141485, 29684999, 98206606, 86978314 ####[address] [address] Neutrophils/Leukocy jacinta Auto (Bld) [Pure # fraction] 3.6 E9/L Normal 2.0-7.5 [facility] Comment on above: Order Comment: Order Added by Discern Expert. Performed By: #### 2 201172, 0973350, 3218639, 1486991, 36988577, 09222617, 51891381 ####[address] [place] [address] BMPon 03-12-2021 Creatinine [Mass/Vol] 0.8 mg/dL Normal 0.5-1.3 [facility] Comment on above: Performed By: #### 2 432929, 7005688, 7268576, 2619670, 16911676, 43004157, 01737970 ####[address] [place] [address] Urea nitrogen [Mass/Vol] 8 mg/dL Normal 5-21 [facility] Comment on above: Performed By: #### 2 136416, 6728665, 9229656, 0054630, 61108385, 95007083, 92297457 ####[facility] [address] [place] [address] Urea nitrogen/Creatinine [Mass ratio] 10 No Units Normal 10-20 [facility] Comment on above: Performed By: #### 2 820228, 9771168, 3576849, 2119479, 71665592, 15323137, 63513642 ####[facility] [address] [place] [address] Anion gap [Moles/Vol] 16 mmol/L Normal 6-16 [facility] Comment on above: Performed By: #### 2 063677, 2732359, 4002410, 7253805, 59723220, 75572783, 23231278 ####[facility] [address] [place] [address] Calcium [Mass/Vol] 8.3 mg/dL Low 8.9-11.1 [facility] Comment on above: Performed By: #### 2 873327, 5309570, 6518739, 9985164, 88044549, 11266836, 10543114 ####[facility] [address] [place] [address] Chloride [Moles/Vol] 99 mmol/L Low 101-111 [facility] Comment on above: Performed By: #### 2 565806, 3998583, 6469015, 6495448, 98016455, 64526223, 86957891 ####[facility] [address] [place] [address] CO2 [Moles/Vol] 21 mmol/L Normal 21-31 [facility] Comment on above: Performed By: #### 2 319635, 8729563, 3516131, 0073976, 65513394, 92245110, 24371941 ####[facility] [address] [place] [address] Glucose [Mass/Vol] 127 mg/dL Normal 55-199 [facility] Comment on above: Result Comment: If t his glucose result represents a fasting glucose, interpretation should refer to the following reference range: 55-99 mg/dL Performed By: #### 2 384931, 2385137, 9845803, 2809806, 60907515, 15370817, 83442263 ####[facility] [address] [place] [address] Potassium [Moles/Vol] 3.5 mmol/L Normal 3.5-5.3 [facility] Comment on above: Performed By: #### 2 403926, 9106479, 7109014, 4599739, 51939116, 75784107, 85447696 ####[facility] [address] [place] [address] Sodium [Moles/Vol] 132 mmol/L Low 135-145 [facility] Comment on above: Performed By: #### 2 123317, 8616523, 4779072, 1911613, 66043825, 55076767, 56883013 ####[facility] [address] [place] [address] CBC w/ Auto Diffon Erythrocyte distribution width (RBC) [Ratio] 14.2 % Normal 10.9-14.2 [facility] Comment on above: Performed By: #### 2 135669, 4104333, 5387952, 5350094, 22855695, 02357699, 52901429 ####[address] [place] [address] Hematocrit (Bld) [Volume fraction] 39.9 % Normal 34.0-46.0 [facility] Comment on above: Performed By: #### 2 043117, 3823085, 9057035, 3041049, 95169925, 67867948, 82650671 ####[address] [place] [address] Hemoglobin (Bld) [Mass/Vol] 13.0 g/dL Normal 12.0-16.0 [facility] Comment on above: Performed By: #### 2 177890, 6079704, 2823081, 7683527, 47327637, 08295096, 34128714 ####[facility] [address] [place] [address] MCH (RBC) [Entitic mass] 27.3 pg Normal 27.0-34.0 [facility] Comment on above: Performed By: #### 2 580668, 1376885, 8778563, 7408654, 15982548, 68572112, 66592734 ####[address] [address] MCHC (RBC) [Mass/Vol] 32.7 g/dL Normal 31.4-36.0 [facility] Comment on above: Performed By: #### 2 758625, 6040695, 5735176, 3122385, 87324634, 09279721, 95156117 ####[address] [address] MCV (RBC) [Entitic vol] 83.4 fL Normal 80.0-100.0 [facility] Comment on above: Performed By: #### 2 039827, 6084250, 0393631, 1481307, 07697736, 88036381, 72225279 ####[address] [address] Platelet mean volume (Bld) [Entitic vol] 7.8 fL Normal 6.4-10.8 [facility] Comment on above: Performed By: #### 2 686489, 8051559, 7416365, 6053949, 69343319, 21294733, 87923495 ####[address] [place] [address] Platelets (Bld) [#/Vol] 188.0 E9/L Normal 150.0-500.0 [facility] Comment on above: Performed By: #### 2 543709, 0430622, 8042578, 8225588, 09511324, 41297924, 87972807 ####[address] [address] RBC (Bld) [#/Vol] 4.8 E12/L Normal 4.3-5.9 [facility] Comment on above: Performed By: #### 2 196987, 3984007, 9847393, 0578162, 16010513, 53927200, 62633109 ####[facility] [address] [place] [address] WBC corrected for nucl RBC Auto (Bld) [#/Vol] 4.9 E9/L Normal 4.0-11.0 [facility] Comment on above: Performed By: #### 2 661013, 6867242, 1221272, 1954835, 81038161, 55007267, 35327200 ####[facility] [address] [place] [address] CTA Cheston 03-12-2021 CTA Chest Exam Date/Time: [...] 370 Contrast amount in ml's: 79 Normal [facility] Consent for Treatmenton 12-0 Consent for Treatment [id number]#1 .00CD:127 Normal [facility] D-Dimeron 03-12-2021 Fibrin D-dimer FEU (PPP) [Mass/Vol] 586 CD:[id number] Abnormal 215-500 [facility] Comment on above: Result Comment: Resu [...] infections Liver cirrhosis Performed By: #### 2 185118, 2434286, 6461286, 3211858, 65533089, 94454320, 65413502 ####[facility] [address] [place] [address] Discharge Instructionson Discharge Instructions [id number]# 1.00CD:127 Normal [facility] ED Clinical Summaryon 2020 ED Clinical Summary [address] [address] ED Clinical Summary Person Information Name: ED MURPHY Judy/[facility] Age: 30 Years : 1990 Sex: Female Language: Italian PCP: Tricia Dewey CNP Marital Status: Phone: [phone] MRN: Visit Id: Visit Reason: Fever; Diarrhea; [...] 03/12/2021 12:55:56 03/12/2021 12:55:56 03/12/2021 12:55:56 ADDRESS: [address] [facility] [id number] PHYS DOC NOTES: MEDICAL INFORMATION: Prescriptions Given: New Medications [facility], [address] [place], [place] [id number], ([phone] 189 - 6544 albuterol (albuterol CFC free 90 mcg/inh Inh [...] Follow up: With: Address: When: Tricia Dewey [address] [place] [address], [address] [place] [address] Business (1) In 3 days DIAGNOSIS: COVID-19; Near syncope Normal [facility] ED Note-Physicianon 03-12-20 ED Note-Physician Basic Information Time Seen: Carlos IBARRA Tal 03/12/2021 09:01 Chief Complaint Pt states shortness [...] puff(s), Inhalation, QID, 8 gram, Refill(s) 0, [facility], 173, cm, 03/12/21 9:08:00 EST, Height/Length Dosing, 125, kg, 03/12/21 9:08:00 EST, Weight Dosing azithromycin, 250 mg, Oral, As Directed, Take two tabs by mouth on day one, then one tab daily, # 6 tab(s), Refills(s) 0, Pharmacy: [facility], 173, cm, 03/12/21 9:08:00 EST, Height/Length Dosing, 125, kg, 03/12/21 9:08:00 EST, Weight Dosing dexamethasone, 6 mg = 1 tab(s), Oral, Daily, X 7 day(s), # 7 tab(s), Refills(s) 0, Pharmacy: [facility], 173, cm, 03/12/21 9:08:00 EST, Height/Length [...] Information Tricia Dewey In 3 days [address] [facility], [address] [place] [id number] [facility] (1) Additional Instructions: Problem List/Past Medical History [...] Past, denies, (more content not included)... Normal [facility] Comment on above: Result Comment: Elec tronically Signed By: Tal Gonzalez DO\.br\Date and Time Signed: 03/12/21 12:46 EST ED Patient Education Noteon 03-12-2021 ED Patient Education Note Normal [facility] ED Patient Summaryon 021 ED Patient Summary [facility] [address] [place], [place] [address] Patient Discharge Instructions Person Information Name: ED MURPHY Age: 30 Years Arrival Date: 03/12/2021 08:55:19 Discharge Diagnosis: COVID-19; Near syncope Primary Care Physician: Tricia Dewey CNP Provider Information Primary Provider: Tla Gonzalez DO Advanced Safety Sealer:None The exam and treatment you received in the Emergency Department were for an urgent problem and are not intended as complete care. It is important that you follow up with a doctor, nurse practitioner, or physician?s special education educational assistant for ongoing care. If your symptoms [...] Follow-up Instructions: With: Address: When: Tricia Dewey [address] [place] [address], [facility], [address] [place] [address] Business (1) In 3 days In the event that this physician does not participate in your insurance network, please consult with your insurance company to find a nearby participating provider. Patient Education Materials: A MESSAGE TO ALL PATIENTS REGARDING OPIOIDS PRESCRIPTION OPIOIDS: WHAT YOU NEED TO KNOW Prescription opioids can be used to help relieve rtjmsmyb-wt-blapib pain and are often prescribed following a [...] be struggling with addiction, tell your health child care and ask for guidance or call [facility]?S National Helpline at 0-900-071-IJUG. p Source: [facility] and [facility] (more content not included)... Normal [facility] PT & PTTon 03-12-2021 aPTT Coag (PPP) [Time] 30.8 second(s) Normal 25.1-36.5 [facility] Comment on above: Result Comment: Hepa rin therapeutic range (represented by Anti-Factor Xa activity of 0.2 - 0.4 U/mL) corresponds to PTT of 56.6 - 109.0 sec. Performed By: #### 2 [id number], [id number], [id number], [id number], [id number], [id number], [id number] ####[facility] [address] [place] [address] INR Coag (PPP) [Relative time] 1.2 {INR} Invalid Interpretation Code [facility] Comment on above: Result Comment: INR results are specifically intended to assess patients stabilized on long-term Anticoagulation therapy suggested INR?s ?Less Intensive Anticoagulation? 2.0 ? 3.0 Conventional Range 3.0 ? 4.5 Performed By: #### 2 [id number], [id number], 8764324, 4638136, [id number], [id number], [id number] ####[facility] [address] [place] [address] PT Coag (PPP) [Time] 14.1 second(s) High 10.2-12.9 [facility] Comment on above: Performed By: #### 2 187097, [id number], 6161841, 9434763, [id number], [id number], [id number] ####[facility] [address] [place] [address] Troponin 0 Hr.on 03-12-2021 Troponin I.cardiac [Mass/Vol] 3.90 pg/mL Low 10.10-27.10 [facility] Comment on above: Result Comment: The 95% CI (Confidence Interval) PPV (Positive Predictive Value) for myocardial infarction in females is 38 pg/mL, in males 51 pg/mL. The results should be used in conjunction with clinical conditions of myocardial infarction. (Access High Sensitivity Troponin I Instructions For Use, Randell Ames, November 2017) Performed By: #### 2 [id number], 2784154, 0126129, [id number], [id number], [id number], [id number] ####[facility] [address] [place] [address] XR Chest Single Viewon 03-12 XR Chest [...] DO Transcribed by: ROBERT Technologist: FAUSTINA Shepherd [facility] eGFRon 03-12-2021 GFR/1.73 sq M.predicted among blacks MDRD (S/P/Bld) [Vol rate/Area] mL/min/{1.73_m2} Normal >=59 [facility] Comment on above: Order Comment: Order added by Discern Expert. Result Comment: eGFR is race adjusted. AA=. Performed By: #### 2 553463, 7281768, 1376630, 5160505, [id number], [id number], [id number] ####[facility] [address] [place] [address] GFR/1.73 sq M.predicted among non-blacks MDRD (S/P/Bld) [Vol rate/Area] mL/min/{1.73_m2} Normal >=59 [facility] Comment on above: Order Comment: Order added by Discern Expert. Result Comment: Condenser Winder nandini kidney disease could be indicated at eGFR's of less than 60 mL/min/1.73m2. Kidney failure is indicated at less than 15 mL/min/1.73m2. Performed By: #### 2 [id number], [id number], 0498876, 8330581, [id number], [id number], [id number] ####[facility] [address] [place] [address] Consent for Treatmenton Consent for Treatment [id number] .[id number]:127 Normal [facility] Physician Orderon 03-10-2021 Physician Order [id number]# 1.00CD:127 Normal [facility] XR Chest 2 Viewson XR Chest [...] Davis DO Transcribed by: ROBERT Technologist: ISAAC Normal [facility] Vital Signs Date Time Vital Sign Value Performing Clinician Oseas lity 09-30-2024 15:47-0400 Body mass index (BMI) [Ratio] 42.37 kg/m2 Flower DE LA PAZ Work Phone: [facility] 09-30-2024 [id number] Body weight 128.25 kg Flower Shanna PA Work Phone: [facility] 09-30-2024 15:47-0400 Diastolic blood pressure 80 mm[Hg] Flower Shanna PA Work Phone: [facility] 09-30-2024 15:47-0400 Systolic blood pressure 130 mm[Hg] Flower Shanna PA Work Phone: [facility] 09-17-2024 10:49-0400 Body mass index (BMI) [Ratio] 41.97 kg/m2 Aquiles Adrian DO Work Phone: [facility] 09-17-2024 10:49-0400 Body weight 127.06 kg Aquiles Adrian DO Work Phone: [facility] 09-17-2024 10:49-0400 Diastolic blood pressure 70 mm[Hg] Aquiles Adrian DO Work Phone: [facility] 09-17-2024 10:49-0400 Systolic blood pressure 112 mm[Hg] Aquiles Adrian DO Work Phone: [facility] 08-27-2024 09:21-0400 Body mass index (BMI) [Ratio] 41.52 kg/m2 Flower Shanna PA Work Phone: [facility] 08-27-2024 09:21-0400 Body weight 125.7 kg Flower Shanna PA Work Phone: [facility] 08-27-2024 09:21-0400 Diastolic blood pressure 70 mm[Hg] Flower Shanna PA Work Phone: [facility] 08-27-2024 09:21-0400 Systolic blood pressure 120 mm[Hg] Flower [place] PA Work Phone: [facility] 08-01-2024 09:31-0400 Body mass index (BMI) [Ratio] 41.21 kg/m2 Aquiles Adrian DO Work Phone: [facility] 08-01-2024 09:31-0400 Body weight 124.74 kg Aquiles Adrian DO Work Phone: [facility] 08-01-2024 09:31-0400 Diastolic blood pressure 72 mm[Hg] Aquiles Adrian DO Work Phone: [facility] 08-01-2024 09:31-0400 Systolic blood pressure 112 mm[Hg] Aquiles Adrian DO Work Phone: [facility] 06-03-2024 14:49-0500 Body mass index (BMI) [Ratio] 40.58 kg/m2 Aquiles Adrian DO Work Phone: [facility] 06-03-2024 14:49-0500 Body weight 122.83 kg Aquiles Adrian DO Work Phone: [facility] 06-03-2024 14:49-0500 Diastolic blood pressure 72 mm[Hg] Aquiles Adrian DO Work Phone: [facility] 06-03-2024 14:49-0500 Systolic blood pressure 106 mm[Hg] Aquiles Adrian DO Work Phone: [facility] 05-02-2024 11:56-0500 Body mass index (BMI) [Ratio] 40.28 kg/m2 Aquiles Adrian DO Work Phone: [facility] 05-02-2024 11:56-0500 Body weight 121.93 kg Aquiles Adrian DO Work Phone: [facility] 05-02-2024 11:56-0500 Diastolic blood pressure 70 mm[Hg] Aquiles Adrian DO Work Phone: [facility] 05-02-2024 11:56-0500 Systolic blood pressure 110 mm[Hg] Aquiles Adrian DO Work Phone: [facility] 02-15-2024 14:26-0500 Body mass index (BMI) [Ratio] 41.77 kg/m2 Flower DE LA PAZ Work Phone: [facility] 02-15-2024 14:26-0500 Body weight 126.46 kg Flower DE LA PAZ Work Phone: [facility] 02-15-2024 14:26-0500 Diastolic blood pressure 80 mm[Hg] Flower DE LA PAZ Work Phone: [facility] 02-15-2024 14:26-0500 Systolic blood pressure 120 mm[Hg] Flower DE LA PAZ Work Phone: [facility] 02-12-2024 08:50-0500 Body mass index (BMI) [Ratio] 41.8 kg/m2 Aquiles Adrian DO Work Phone: [facility] 02-12-2024 08:50-0500 Body weight 126.55 kg Aquiles Adrian DO Work Phone: [facility] 02-12-2024 08:50-0500 Diastolic blood pressure 72 mm[Hg] Aquiles Adrian DO Work Phone: [facility] 02-12-2024 08:50-0500 Systolic blood pressure 118 mm[Hg] Aquiles Adrian DO Work Phone: [facility] Healthcare Encounters Encounter Date Encounter Type Care Provider Facility Start: 10-09-2024 End: 10-09-2024 Clinisync Result Encounter Aquiles Adrian DO Work Phone: [facility] External Department Unsolicited Start: 10-09-2024 End: 10-09-2024 Clinisync Result Encounter Aquiles Adrian DO Work Phone: [facility] External Department Unsolicited Start: 10-02-2024 End: 10-02-2024 Clinisync Result Encounter Aquiles Adrian DO Work Phone: [facility] External Department Unsolicited Start: 10-02-2024 End: 10-02-2024 Clinisync Result Encounter Aquiles Adrian DO Work Phone: [facility] External Department Unsolicited Start: 09-30-2024 End: 09-30-2024 flow sheet Flower DE LA PAZ Work Phone: [facility] Comment on above: Third trimester preg lakia ([facility]); 33 weeks gestation of ([facility]) Start: 09-30-2024 End: 09-30-2024 ambulatory FLOWER OTERO Not Available Start: 09-30-2024 End: 09-30-2024 Bamboo flowsheet Flower DE LA PAZ Work Phone: [facility] Start: 09-30-2024 End: 09-30-2024 Bamboo flowsheet Flower DE LA PAZ Work Phone: [facility] Start: 09-25-2024 End: 09-25-2024 Clinisync Result Encounter Aquiles Adrian DO Work Phone: [facility] External Department Unsolicited Start: 09-25-2024 End: 09-25-2024 Clinisync Result Encounter Aquiles Adrian DO Work Phone: [facility] Unsolicited Start: 09-17-2024 End: 09-17-2024 flow sheet Aquiles Adrian DO Work Phone: [facility] Comment on above: 31 weeks gestation o f ; Third trimester ; Multigravida of advanced maternal age in third trimester; Excessive growth affecting management of , antepartum, single or unspecified fetus Start: 09-17-2024 End: 09-17-2024 ambulatory AQUILES ADRIAN Not Available Start: 08-27-2024 End: 08-27-2024 Bamboo flowsheet Flower DE LA PAZ Work Phone: [facility] Start: 08-27-2024 End: 08-27-2024 Bamboo flowsheet Flower DE LA PAZ Work Phone: [facility] Start: 08-27-2024 End: 08-27-2024 Clinisync Result Encounter Flower DE LA PAZ Work Phone: [facility] Unsolicited Start: 08-27-2024 End: 08-27-2024 flow sheet Flower DE LA PAZ Work Phone: [facility] Comment on above: Size of fetus incons istent with dates in second trimester (Primary Dx); Third trimester ; 28 weeks gestation of Start: 08-27-2024 End: 08-27-2024 ambulatory FLOWER OTERO Not Available Start: 08-08-2024 End: 08-08-2024 [facility] Start: 08-07-2024 End: 08-07-2024 Chart abstracting Scanning Provider External [facility]- [facility] at [facility] Start: 08-01-2024 End: 08-01-2024 flow sheet Aquiles [...] Start: 04-11-2024 End: 04-11-2024 ambulatory Aquiles Adrian Facility:[facility] Start: 04-11-2024 End: 04-11-2024 Departed Referred Aquiles Adrian DO Work Phone: [facility] Start: 04-11-2024 End: 04-11-2024 Clinisync Result [...] Anovulation Start: 02-12-2024 End: 02-12-2024 ambulatory AQUILES ADRIAN Not Available Start: 08-24-[address] AQUILES [...] Date Procedure Procedure Detail Performing Clinician Start: 10-09-2024 OB BPP W NON-STRESS Aquiles Adrian DO Work Phone: Start: 10-02-2024 OB BPP W NON-STRESS Aquiles Adrian DO Work Phone: Start: 09-30-2024 Urnls dip stick/tabl et rgnt non-auto w/o micrscp Flower DE LA PAZ Work Phone: Start: 09-25-2024 OB BPP W NON-STRESS Aquiles [...] Start: 12-09-2024 Influenza vaccination Influenza Vacc ine [facility] Start: 10-14-2024 End: 10-14-2024 Patient encounter procedure 10/14/2024 2:30 PM EDT Routine [facility] [address] [place] [id number] Aquiles Campbell, DO [address] [place] [address] [facility] Start: 10-14-2024 End: 10-14-2024 Professional / ancillary services management 10/14/2024 2:00 PM EDT Ancillary Procedure [facility] [address] [place] [id number] [facility] Start: 09-30-2024 End: 09-30-2024 Patient encounter procedure [facility] Comment on above: Arrived Start: 09-17-2024 End: 03-19-2025 US biophysical profile [...] AM EDT Routine [facility] [address] [place] [phone] Aquiles Campbell DO [address] [place] [address] [facility] Start: 09-17-2024 End: 09-17-2024 Professional / ancillary services management 09/17/2024 9:30 AM EDT Ancillary Procedure [facility] [address] [phone] [facility] Start: 08-27-2024 End: 08-27-2025 [...] 08/08/2024 8:00 AM EDT Appointment [facility] [place] [address] [facility] [address] [place] [id number] [facility] [place] Start: 07-01-2024 End: 07-01-2024 Patient encounter procedure 07/01/2024 9:40 AM EDT Routine [facility] [address] [place] [address] Flower Otero PA [address] [place] [address] [facility] Start: 07-01-2024 End: 07-01-2024 Professional / ancillary services management 07/01/2024 8:30 AM EDT Ancillary Procedure [facility] [address] [place] [phone] [facility] Start: 06-11-2024 End: 06-11-2024 Patient encounter procedure 06/11/2024 8:40 AM EST Office Visit [facility] [address] [place] [phone] Aquiles Campbell, [address] [place] [address] [facility] Start: 06-03-2024 End: 06-03-2024 Patient encounter procedure 06/03/2024 2:20 PM EST Routine [facility] [address] [place] [address] Aquiles Campbell, DO [address] [place] [address] [facility] Start: 06-03-2024 End: 08-01-2024 [...] on above: Arrived Start: 04-11-2024 Urine culture [facility] Start: 04-11-2024 Bacteria identified in Urine by Culture Urine Culture [facility] Start: 04-11-2024 End: 04-11-2024 ambulatory 04/11/2024 1:00 PM EST Initial [facility] [address] [facility] [address] [place] [address] [facility] Start: 04-11-2024 End: 04-11-2024 Professional / ancillary services management 04/11/2024 12:30 PM EST Ancillary Procedure [facility] [address] [facility] [place] [place] [address] [facility] Start: 02-15-2024 End: 02-15-2024 Patient encounter procedure [facility] Comment on above: Arrived Start: 02-12-2024 End: 02-12-2024 Patient encounter procedure 02/12/2024 8:50 AM EST Office Visit [facility] [address] [place] [address] Aquiles Campbell, DO [address] [place] [address] Arrived [facility] Comment on above: Arrived Start: 2009 Screening for malign ant neoplasm of cervix Pap Smear [facility] Start: 11-29-2007 DTaP,Tdap and Td Vaccines (1 - Tdap) DTaP,Tdap and Td Vaccines (1 - Tdap) [facility] Start: 2006 Adult BMI Screening Adult BMI Screen ing [facility] Start: 2000 Depression Screening Depression Scre ening [facility] Start: 2000 Tobacco Screening Tobacco Screening [facility] CHLAMYDIA TRACHOMATI S (GENITO/STI) CHLAMYDIA TRACHOMATIS (GENITO/STI) Lab Routine STD exposure Ordered: 06/03/2024 [facility] Comment on above: Ordered: 06/03/2024 Cytology Cervical or vaginal smear or scraping study Pap Smear Pathology and Cytology Routine Well woman exam with routine gynecological exam Ordered: 02/15/2024 [facility] Work Phone: Comment on above: Ordered: 02/15/2024 Hemoglobin A1c/Hemoglobin.total in Blood Hemoglobin A1c Lab Routine Third trimester 28 weeks gestation of Size of fetus inconsistent with dates in second trimester Ordered: 08/27/2024 [facility] Comment on above: Ordered: 08/27/2024 Human papilloma viru s DNA [Presence] in Unspecified specimen by Probe with amplification HPV DNA probe, amplified Microbiology Routine Well woman exam with routine gynecological exam Ordered: 02/15/2024 [facility] Comment on above: Ordered: 02/15/2024 Neisseria gonorrhoea e DNA [Presence] in Unspecified specimen by LYNNETTE with probe detection Neisseria gonorrhea DNA probe, direct Lab Routine STD exposure Ordered: 06/03/2024 [facility] Comment on above: Ordered: 06/03/2024 SURESWAB(R) ADVANCED VAGINITIS PLUS, TMA SURESWAB(R) ADVANCED VAGINITIS PLUS, TMA Pathology and Cytology Routine STD exposure Ordered: 06/03/2024 [facility] Healthcare Work Phone: Comment on above: Ordered: 06/03/2024 Payers Date Payer Category Payer Self-pay 2024 [employer] Blue [employer] Managed Care - PPO ANTHEM [id number] 2023 Blue Cross Blue Shield [id number] 2023 Unknown [id number] 1988 Unknown [id number] 2.16.840.1.175386.3.579. 2.593 1988 Unknown [id number] 2.16.840.1.639763.3.579. 2.593 1988 Unknown [id number] 2.16.840.1.012212.3.579. 2.593 1988 Unknown [id number] 2.16.840.1.762936.3.579. 2.593 1988 Unknown [id number] 2.16.840.1.620505.3.579. 2.593 1988 Unknown [id number] 2.16.840.1.569730.3.579. 2.593 1988 Unknown [id number] 2.16.840.1.341917.3.579. 2.593 1988 Unknown [id number] 2.16.840.1.135844.3.579. 2.593 1988 Unknown [id number] 2.16.840.1.781982.3.579. 2.593 1988 Unknown [id number] 2.16.840.1.699183.3.579. 2.593 1988 Unknown [id number] 2.16.840.1.847488.3.579. 2.593 1988 Unknown [id number] 2.16.840.1.162608.3.579. 2.593 1988 Unknown [id number] 2.16840.1.411707.3.579. 2.1286 1988 Unknown [id number] 2..840.1.610840.3.579. 2.1259 1988 Unknown [id number] 2.840.1.777179.3.579. 2.1259 1988 Unknown [id number] 2.840.1.423710.3.579. 2.1259 1988 Unknown [id number] 2.840.1.716008.3.579. 2.1259 1988 Unknown [id number] 2.840.1.534025.3.579. 2.1259 1988 Unknown [id number] 2.840.1.388678.3.579. 2.1259 1988 Unknown [id number] 2.840.1.774830.3.579. 2.1259 1988 Unknown [id number] 2.840.1.913162.3.579. 2.1259 1988 Unknown [id number] 2.840.1.802845.3.579. 2.1259 1988 Unknown [id number] 2.16840.1.734143.3.579. 2.1259 1988 Unknown [id number] 2.16.840.1.822757.3.579. 2.1259 1988 Unknown [id number] 2.16840.1.981465.3.579. 2.1259 1988 Unknown [id number] 2.16.840.1.079766.3.579. 2.1259 1988 Unknown [id number] 2.16.840.1.690118.3.579. 2.1259 1959 Private Health Insurance [id number] Unknown [id number] 2.16.840.1.046197.3.579. 2.531 Unknown Erika BEST/MOLINA [id number] Social History Date Type Detail Facility Start: 12-01-2022 End: 08-07-2024 Tobacco smoking status NHIS Never smoked tobacco [facility] Start: 08-24-2023 End: 08-27-2024 Alcoholic beverage intake Lifetime non-drinker (finding) [facility] Start: 12-01-2022 End: 02-12-2024 History of Social function [facility] Start: 12-01-2022 End: 02-12-2024 Tobacco use panel [facility] Start: 12-01-2022 Education 21 [facility] Start: 12-01-2022 Alcohol Comment Caffeine intake: non e [facility] Start: 1990 Sex assigned at Not on file [facility] Start: 02-25-2024 [facility] Tobacco smoking stat us VAIS Unknown if ever smoked [facility] Work Phone: Start: 04-12-2024 End: 08-05-2024 Sex Female (finding) [facility] Start: 1990 Sex Assigned At Female F [facility] Start: 08-07-2024 Tobacco use and exposure Smokeless tobacco non-user [facility] Medical Equipment Procedure Code Equipment Code Equipment Origin al Text Equipment Identifier Dates 1 strip by In Vi tro route Daily Use in the morning prior to breakfast, 1 hour after each meal for a total of 4times daily. [id number] Start: 07-25-2024 End: 08-27-2024 1 each by In Vit ro route Daily Use to check FSBS four times daily [id number] Start: 07-25-2024 End: 08-27-2024 Clinical Notes 02-12-2024 to 09-30-2024 BRAIN Martinez - 09/30/2024 3:30 PM Tracey Marcial, ZHENG - 09/17/2024 10:20 AM BRAIN Schmidt - 08/27/2024 8:50 AM Sagar [place], ZHENG - 08/01/2024 9:10 AM BRAIN Schmidt - 02/15/2024 2:00 PM EST Note Date & Type Note Facility 09-30-2024 History of Presen t illness Narrative Reason for Appointment: Patient ID: Ed Murphy is a 33 y.o. female who presents for Routine Visit Patient presents today for Return OB appointment. MEDICATIONS Current Outpatient Medications Medication Instructions Alcohol Swabs (Alcohol Prep Pad) 70 % pads 1 Pad, Topical, Daily, Use four times daily to check FSBS. Blood Glucose Monitoring Suppl ([address] Glucometer) w/Device kit 1 kit, Does not apply, Daily, Use four times daily to check FSBS. In the morning prior to breakfast & 1 hour after each meal for a total of 4times daily. Ijolouwg-Nel-Kn-FA ( 1 + IRON PO) ALLERGIES Allergies Allergen Reactions Cefadroxil Hives Other Reaction(s): hives, Unknown Other Reaction(s): hives, rash Latex Itching Other Reaction(s): Itching Other Reaction(s): Hives Paroxetine Other Reaction(s): Unknown PROBLEMS Active Ambulatory Problems Diagnosis Date Noted Anovulation 12/02/2022 DUB (dysfunctional uterine bleeding) 12/02/2022 Menstrual disorder 12/02/2022 Missed menses 12/02/2022 Yeast infection 12/02/2022 31 weeks gestation of ([facility]) 09/17/2024 Third trimester ([facility]) 09/17/2024 Multigravida of advanced maternal age in third trimester ([facility]) 09/17/2024 Resolved Ambulatory Problems Diagnosis Date Noted Bleeding in early ([facility]) 12/02/2022 Past Medical History: Diagnosis Date Frequent UTI Herpes History of chlamydia 2007 History of depression 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 Personal history of other medical treatment ([facility]) [place] teeth removed HISTORY PAST MEDICAL HISTORY SOCIAL HISTORY Past Medical History: Diagnosis Date Bleeding in early ([facility]) 12/02/2022 Frequent UTI Herpes History of chlamydia 2007 History of depression no meds 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 Weight as of this encounter: 282 lb 12 oz. BP: 130/80 Patient's last menstrual period was 02/11/2024. ASSESSMENT & PLAN ICD-10-CM 1. Third trimester ([facility]) Z34.93 POCT urinalysis dipstick manually resulted 2. 33 weeks gestation of ([facility]) Z3A.33 Return OB: Patient presents today [...] Documented by BRAIN Martinez on behalf of: BRANI Martinez documented in this encounter [facility] 09-17-2024 History of Presen t illness Narrative Reason for Appointment: Patient ID: Ed Murphy is a 33 y.o. female who presents for Routine Visit Patient presents today for Return OB appointment. MEDICATIONS Current Outpatient Medications Medication Instructions Alcohol Swabs (Alcohol Prep Pad) 70 % pads 1 Pad, Topical, Daily, Use four times daily to check FSBS. Blood Glucose Monitoring Suppl ([address] Glucometer) w/Device kit 1 kit, Does not apply, Daily, Use four times daily to check FSBS. In the morning prior to breakfast & 1 hour after each meal for a total of 4times daily. 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 Exam conducted with a process architect present. 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 Patient going on a trip to [facility], she will return at 31 weeks. [...] of: BRAIN Martinez documented in this encounter [facility] 08-01-2024 History of Presen t illness Narrative Reason for Appointment: Patient ID: Ed Murphy is a 33 y.o. female who presents for Routine Visit Patient presents today for Return OB appointment. MEDICATIONS Current Outpatient Medications Medication Instructions Alcohol Swabs (Alcohol Prep Pad) 70 % pads 1 Pad, Topical, Daily, Use four times daily to check FSBS. 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 Exam conducted with a process architect present. Vitals: Estimated body mass index is [...] not cleared. Patient will be referred to [facility] for Level II Scan and consult if needed. Discussed patient upcoming vacation and precautions given. Patient will have growth scan start at 28 weeks gestation. Patient to return to clinic in 4 weeks. Patient to drop off FSBS results for routine in the meantime. Documented by Daniela Candelaria LPN on behalf of: Aquiles Campbell DO documented in this encounter [facility] 06-03-2024 History of Presen t illness Narrative Reason for Appointment: Patient ID: Ed Murphy is a 33 y.o. female who presents for Routine Visit Patient presents today for Return OB appointment. 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 Exam conducted with a process architect present. Vitals: Estimated body mass index is [...] off on referral at this time. Discussed Lead testing if patient desires to check for genetic testing and patient declines at this time as well. Obtained vaginal cultures without issue & patient to return to clinic in 4 weeks for routine OB appointment. Documented by Daniela Candelaria LPN on behalf of: Aquiles Campbell DO documented in this encounter [facility] 05-02-2024 History of Presen t illness Narrative Reason for Appointment: Patient ID: Ed Murphy is a 33 y.o. female who presents for Routine Visit Patient presents today for Return OB appointment. 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 letrozole (FEMARA) 2.5 mg, Oral, Daily Xeiltvue-Qyj-Bh-FA ( 1 + IRON PO) Vit-Fe Zhojzth-BL-TNE ( VITAMIN/MIN +DHA PO) ALLERGIES Allergies Allergen [...] 2010 Personal history of other medical treatment [place] teeth removed HISTORY PAST MEDICAL HISTORY SOCIAL HISTORY Past Medical History: Diagnosis Date Bleeding in early 12/02/2022 Frequent UTI Herpes History of chlamydia 2008 History of depression no meds 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 Personal history of other medical treatment Frenectomy x2 [place] teeth removed Social History Tobacco Use Smoking [...] nursing note reviewed. Exam conducted with a process architect present. Vitals: Estimated body mass index is [...] of: BRAIN Martinez documented in this encounter [facility] 02-12-2024 History of Presen t illness Narrative Reason for Appointment: Patient ID: Ed Murphy is a 33 y.o. female who presents for Infertility (Pt present today to discuss infertility) Patient presents today for Consult appointment. MEDICATIONS Current Outpatient Medications Medication Instructions Cejjamzv-Dqu-Cx-FA ( 1 + IRON PO) Vit-Fe Beanjjz-JA-PHO ( VITAMIN/MIN +DHA PO) ALLERGIES Allergies Allergen [...] 2010 Personal history of other medical treatment [place] teeth removed HISTORY PAST MEDICAL HISTORY SOCIAL HISTORY Past Medical History: Diagnosis Date Bleeding in early 12/02/2022 Frequent UTI Herpes History of chlamydia 2008 History of depression no meds 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 Personal history of other medical treatment Frenectomy x2 [place] teeth removed Social History Tobacco Use Smoking [...] nursing note reviewed. Exam conducted with a process architect present. Vitals: Estimated body mass index is [...] [facility] noteNo assessment information availableK[facility] Work Phone: Evaluation note* Diagnosis First [...] unspecified fetus documented in this [facility]* Diagnosis Third trimester ([facility]) state, incidental 33 weeks gestation of ([facility]) documented in this encounter [facility] HealthcareInstructionsNot on filedocumented in this [facility]Mer[facility] Purpose Family History No [...] section and content) DATE CREATED AUTHOR 07/05/2021 [facility] DATE CREATED AUTHOR AUTHOR'S ORGANIZ ATION 08/23/2022 [facility] DATE CREATED AUTHOR AUTHOR'S ORGANIZ ATION 04/19/2024 [facility] DATE CREATED AUTHOR AUTHOR'S ORGANIZ ATION 08/13/2024 [facility] DATE CREATED AUTHOR AUTHOR'S ORGANIZ ATION 10/01/2024 [facility] EPIC Reason for Visit (unrecogniz [...] BE BASED ON THE PRIMARY CLINICAL RECORDS. [facility] [employer] [facility]. provides no warranty or guarantee of the accuracy or completeness of information in this document.
[2024-10-11 13:10] VITALS: BP 120/68; PULSE 100
== END 2024-10-11 13:33 | disposition home or self-care (01) ==
LOC: FBCO 13:00 → FBC 13:01
PROVIDERS: Visit Provider Obstetrics & Gynecology
DX: O36.63X0 Maternal care for excessive fetal growth, third trimester, not applicable or unspecified (principal); Z3A.34 34 weeks gestation of pregnancy
CPT/HCPCS: 59025

== ENCOUNTER 2024-10-15 18:03 | Outpatient (OUT) | payer BC, SELFPAY ==
--- OUTSIDE RECORDS SUMMARY | 2024-10-14 14:00 | XMS_ITS | Encounter Summary ---
Author Organization [facility] Address [address] [place] [address] Care Team Providers Care Wire Dropper Name Role Phone Unavailable Primary Care Provider Unavailabl e Encounter Details Date Type Department Care Team (Latest Contact Info) Description 10/14/2024 2:00 PM EDT Ancillary Procedure [facility] [address] [place] [address] Multigravida of advanced maternal age in third trimester ([facility]); H/O miscarriage, currently ([facility]) Social History Tobacco Use Types Packs/Day Years [...] Start Date Job End Date Works at [employer] Not on file Not on file Not on file documented as of this encounter Plan of Treatment Upcoming Encounters Date Type Department Care Team (Late st Contact Info) Description 10/21/2024 2:00 PM EDT Routine [facility] [address] [place] [address] Theodore Campbell, DO [address] [place] [address] Dr Leonard Chu [place] [phone] documented as of this encounter Procedures Procedure Name Priority Date/Time Associated Diagnosis Comments US OB FOLLOW UP TRANSABDOMINAL APPROACH Routine 10/14/2024 2:25 PM EDT Multigravida of advanced maternal age in third trimester ([facility]) H/O miscarriage, currently ([facility]) documented in this encounter Results * US OB follow up transabdominal approach (10/14/2024 2:25 PM EDT) Anatomical Region Laterality Modality Body Ultrasound 10/15/2024 1:04 PM EDT Impressions 10/15/2024 2:42 PM EDT 1. Single, live intrauterine , current sonographic age of 37 weeks and 5 days, with an estimated date of delivery of October 30, 2024. 2. weight is 7 pounds 8 ounce with percentile greater than 97% * Estimated Weight (g) by Percentile is based upon an accurate estimated age based on last menstrual period. TRANSCRIBED BY: ELECTRONICALLY SIGNED BY: Campos Vital MD Narrative 10/15/2024 2:42 PM EDT A single, live intrauterine is present with normal cardiac rate of 153 beats per minute. Normal activity and amniotic fluid volume. Amniotic fluid index is 13.0 cm, largest fluid pocket 5.8 cm Morphology is grossly normal. Cervix not seen due to cephalic presentation. The current sonographic age is 37 weeks and 5 days, based on the following measurements: BPD 9.1 cm ( 36weeks, 6 days) Head Circumference 33.1 cm (37 weeks,5 days) Abdominal Circumference 34.5 cm (38 weeks, 3 days) Femur Length 7.4 cm (38 weeks, 1 days) Presentation Cephalic Weight (g) by Percentile Greater than 97% * These measurements result in an estimated date of delivery of October 30, 2024. The current estimated weight is 3390 grams (7 pounds, 8 ounces). Procedure Note Campos Vital MD - 10/15/2024 A single, live intrauterine is present with normal cardiacrate of 153 beats per minute. Normal activity and amniotic fluidvolume. Amniotic fluid index is 13.0 cm, largest fluid pocket 5.8 cmMorphology is grossly normal. Cervix not seen due to cephalicpresentation. The current sonographic age is 37 weeks and 5 days, basedon the following measurements: BPD 9.1 cm ( 36weeks, 6 days) Head Circumference 33.1 cm (37 weeks,5 days) Abdominal Circumference 34.5 cm (38 weeks, 3 days) Femur Length 7.4 cm (38 weeks, 1 days) Presentation Cephalic Weight (g) by Percentile Greater than 97% * These measurements result in an estimated date of delivery of October. The current estimated weight is 3390 grams (7 pounds, 8ounces). IMPRESSION: 1. Single, live intrauterine , current sonographic age of 37weeks and 5 days, with an estimated date of delivery of October 30, 2024. 2. weight is 7 pounds 8 ounce with percentile greater than 97% * Estimated Weight (g) by Percentile is based upon an accurateestimated age based on last menstrual period. TRANSCRIBED BY: ELECTRONICALLY SIGNED BY: Campos Vital MD us Theodore Campbell DO IM OB US PROCEDURES Final Resul t documented in this encounter Visit Diagnoses Diagnosis Multigravida of advanced maternal age in third trimester ([facility]) H/O miscarriage, currently ([facility]) documented in this encounter
--- OUTSIDE RECORDS SUMMARY | 2024-10-14 14:26 | XMS_ITS ---
Author Name Auto Generated Organization OHIP Support Name Relationship Address Phone BRANDEE ALEMAN Next of Kin Unknown [phone] SHIRALONI LAWSON Next of Kin Unknown [phone] ASH BRANDEE Next of Kin Unknown [phone] LONI SILVA Next of Kin Unknown [phone] ASH BRANDEE Next of Kin Unknown [phone] EVA SILVAON Next of Kin Unknown [phone] ASH BRANDEE Next of Kin Unknown [phone] SHIRA, LONI Next of Kin Unknown [phone] ASH BRANDEE Next of Kin Unknown [phone] SHIRA, LONI Next of Kin Unknown [phone] ASH BRANDEE Next of Kin Unknown [phone] SHIRA, LONI Next of Kin Unknown [phone] SHIRA, LONI Next of Kin Unknown Unavailable ASH BRANDEE Next of Kin Unknown [phone] SHIRA, LONI Next of Kin Unknown [phone] ASH BRANDEE Next of Kin Unknown [phone] SHIRA, LONI Next of Kin Unknown [phone] ASH BRANDEE Next of Kin Unknown [phone] SHIRA, LONI Next of Kin Unknown [phone] ASH BRANDEE Next of Kin Unknown [phone] SHIRA, LONI Next of Kin Unknown [phone] BRANDEE ALEMAN Next of Kin Unknown [phone] SHIRA, LONI Next of Kin Unknown [phone] ASH, BRANDEE Next of Kin Unknown [phone] SHIRA, LONI Next of Kin Unknown [phone] ASH, BRANDEE Next of Kin Unknown [phone] SHIRA, LONI Next of Kin Unknown [phone] ASH, BRANDEE Next of Kin Unknown [phone] SHIRA, LONI Next of Kin Unknown [phone] ASH, BRANDEE Next of Kin Unknown [phone] SHIRA, LONI Next of Kin Unknown [phone] BRANDEE ALEMAN Next of Kin Unknown [phone] SHIRA, LONI Next of Kin Unknown [phone] Care Team Providers Care Supervisor [employer] Name Role Phone ADRIAN, AQUILES Attending Unavailable ADRIAN, AQUILES Attending Unavailable ADRIAN, AQUILES Referring Unavailable SHANNA, SIGIFREDO Attending Unavailable ADRIAN, AQUILES Attending Unavailable ADRIAN, AQUILES Attending Unavailable SHANNA, SIGIFREDO Attending Unavailable SHANNA, SIGIFREDO Attending Unavailable SHANNA, SIGIFREDO Referring Unavailable ADRIAN, AQUILES Attending Unavailable SHANNA, SIGIFREDO Attending Unavailable ADRIAN, AQUILES Attending Unavailable ADRIAN, AQUILES R Referring Unavailable Adrian, Aquiles Attending Unavailable Adrian, Aquiles Admitting Unavailable PROBLEMS DATE TYPE CONDITION / CODE ATTENDING STATUS [facility] 08/08/2024 Unknown Encounter for ot her specified screening / Z36.89(ICD-10) [facility] PROCEDURES No Procedure Records Found RESULTS US OB FOLLOW UP TRANSABDOMINAL APPROACH Observed: 10/14/2024 1:56 PM Status: F Source: [facility] Order Comment: US OB SCAN FO R GROWTH Estimated Date of Delivery: 11/17/24 Gestational Age as of 10/14/2024: 35w1d A single, live intrauterine is present with [...] is 3390 grams (7 pounds, 8 ounces). IMPRESSION: 1. Single, live intrauterine , current sonographic age of 37 weeks and 5 days, with an estimated date of delivery of October 30, 2024. 2. weight is 7 pounds 8 ounce with percentile greater than 97% * Estimated Weight (g) by Percentile is based upon an accurate estimated age based on last menstrual period. TRANSCRIBED BY: ELECTRONICALLY SIGNED BY: Campos Vital MD US OB FOLLOW UP TRANSABDOMINAL APPROACH Observed: 09/17/2024 9:31 AM Status: F Source: [facility] Order Comment: US OB SCAN FO R GROWTH Estimated Date of Delivery: 11/17/24 Gestational Age as of 08/27/2024: 28w2d EXAM: US OB FOLLOW UP TRANSA BDOMINAL APPROACH HISTORY: Inconsistent size. COMPARISON: Ob ultrasound [...] II, MD, PHD at 18-Sep-2024 08:23:43 AM [facility] US OB LIMITED 1+ FETUSES Observed: 08/01 8:23 AM Status: F Source: [facility] Order Comment: US OB INCOMPL ETE ANATOMY Estimated Date of Delivery: 11/17/24 Gestational Age as of 07/08/2024: 21w1d EXAM: US OB LIMITED 1+ FETUS ES HISTORY: Incomplete anatomy. A1. KAY 11/17/2024. COMPARISON: [...] II, MD, PHD at 01-Aug-2024 11:20:36 PM [facility] US OB 14+ WEEKS ANATOMY SCAN Observed: 0 06/03/2024 2:26 PM Status: F Source: [facility] Order Comment: US OB ANATOMY SINGLE W US OB CERVICAL LENGTH Estimated Date of Delivery: 11/17/24 Gestational Age as of 06/03/2024: 16w1d EXAM: US OB 14+ WEEKS ANATOM Y SCAN HISTORY: anatomy. COMPARISON: OB ultrasound 04/12/2024. [...] II, MD, PHD at 02-Jul-2024 09:56:12 AM [facility] URINE CULTURE Observed: 04/11/2024 2:02 PM Status: F Source: [facility] No Growth 2 Days PERFORMED BY: [facility] [address] [place] [address] PATHOLOGIST INTERNET WEBMASTER TOSHA PÉREZ M.D. Performed By: Gennaro### CUU #### [facility] [address] US OB TRANSVAGINAL Observed: 04/11/2024 12:27 PM Status: F Source: [facility] Order Comment: No LMP record ed. TITLE OF EXAM: US OB TRANSVA GINAL REASON FOR EXAM: Dating TECHNIQUE: Grayscale, color, [...] x 3.6 cm (8 weeks, 0 days). [place] rump length is 1.8 cm (8 weeks, [...] signed and approved by the interpreting radiologist. ALLERGIES DATE TYPE / CODE NAME / CODE REACTION SEVERITY SOURCE 08/07/2024 DRUG INGREDI/[id number](S [facility]OMED CT) CEFADROXIL Hives [facility] 08/07/2024 DRUG INGREDI/[id number](S NOMED CT) LATEX Itching [facility] 08/07/2024 DRUG INGREDI/[id number](S NOMED CT) PAROXETINE [facility] ENCOUNTERS ADMIT/DISCHARGE ACCOUNT NUMBER ADMITTING ENCOUNTER CLASS LOCATION SOURCE 10/14/2024/10/15/19 25 [id number] Ambulatory Building:[facility] OB [facility] EP[facility] 10/14/2024/10/15/19 25 [id number] Ambulatory Building:[facility] 09/30/2024/10/01/19 25 [id number] Ambulatory Building:[facility] 09/17/2024/09/18/19 25 [id number] Ambulatory Building:[facility] EP[facility] 09/17/2024/09/18/19 25 [id number] Ambulatory Building:[facility] 08/27/2024/08/28/19 25 [id number] Ambulatory Building:[facility] 08/08/2024/08/09/19 25 [id number] Ambulatory Buildin 01 [facility] 08/01/2024/08/02/19 25 [id number] Ambulatory Building:[facility] OB [facility] EP[facility] 08/01/2024/08/02/19 25 [id number] Ambulatory Building:[facility] 07/01/2024/07/02/19 25 [id number] Ambulatory Building:[facility] 07/01/2024/07/02/19 25 [id number] Ambulatory Building:[facility] 06/03/2024/06/03/19 25 [id number] Ambulatory Building:[facility] 05/02/2024/05/02/19 25 [id number] Ambulatory Building:[facility] 04/11/2024/04/11/19 25 [id number] Aquiles [facility]11/[facility]04/11/19 25 [id number] Ambulatory Building:[facility] EP[facility] 04/11/2024/04/11/19 25 [id number] Ambulatory Building:[facility] 02/15/2024/02/15/20 24 [id number] Ambulatory Building:[facility] 02/12/2024/11/04 [id number] Ambulatory Building:[facility] EP[facility] PAYERS ENCOUNTER GUARANTOR PAYER SUBSCRIBER SOURCE 10/14/2024 ED DUMONTOB: [place] [address]Rxm: (HP) (WP) Primary Insurance:BCBSPoli cy Number: [id number] hussein Date:2023-04-10 ED ESTESYLORDOB: [id number] [place] [address] [facility] 10/14/2024 ED KUMARORDOB: [place] [address]Qko: (HP) (WP) Primary Insurance:BCBSPoli cy Number: [id number] hussein Date:2023-04-10 ED ESTESYLORDOB: [id number] [place] [address] [facility] 09/30/2024 ED KUMARORDOB: [place] [address]Idp: (HP) (WP) Primary Insurance:BCBSPoli cy Number: [id number] hussein Date:2023-04-10 ED ESTESYLORDOB: [id number] [place] [address] [facility] 09/17/2024 ED ESTESYLORDOB: [place] [address]Guc: (HP) (WP) Primary Insurance:BCBSPoli cy Number: [id number] hussein Date:2023-04-10 ED ESTESYLORDOB: [id number] [place] [address] [facility] 09/17/2024 ED ESTESYLORDOB: [place] [address]Ozh: (HP) (WP) Primary Insurance:[facility] cy Number: [id number] hussein Date:2023-04-10 ED ESTESYLORDOB: [id number] [place] [address] [facility] 08/27/2024 ED ESTESYLORDOB: [place] [address]Rky: (HP) (WP) Primary Insurance:[facility] cy Number: [id number] hussein Date:2023-04-10 ED KUMARORDOB: [id number] [place] [address] [facility] 08/08/2024 ED KUMARORDOB: [place], [place] [address]Ysy: (HP) Primary Insurance:BLUE ACCESS (PPO)Policy Number: [id number] hussein Date:2024-04-10 ED KUMARORDOB: [id number] [place], [place] [address]Los: (HP) [facility] 08/01/2024 ED KUMARORDOB: [place] [address]Fxl: (HP) (WP) Primary Insurance:[facility] cy Number: [id number] hussein Date:2023-04-10 ED KUMARORDOB: [id number] [place] [address] [facility] 08/01/2024 ED ESTESYLORDOB: [place] [address]Esj: (HP) (WP) Primary Insurance:BCBSPoli cy Number: [id number] hussein Date:2023-04-10 ED Jordan NAYLORDOB: [id number] [place] [address] [facility] 07/01/2024 ED ESTESYLORDOB: [place] [address]Llc: (HP) (WP) Primary Insurance:BCBSPoli cy Number: [id number] hussein Date:2023-04-10 ED ESTESYLORDOB: [id number] [place] [address] [facility] 07/01/2024 ED ESTESYLORDOB: [place] [address]Rdl: (HP) (WP) Primary Insurance:BCBSPoli cy Number: [id number] hussein Date:2023-04-10 ED Jordan NAYLORDOB: [id number] [place] [address] [facility] 06/03/2024 ED ESTESYLORDOB: [place] [address]Dvb: (HP) (WP) Primary Insurance:BCBSPoli cy Number: [id number] hussein Date:2023-04-10 ED ESTESYLORDOB: [id number] [facility] [address] [facility] 05/02/2024 ED ESTESYLORDOB: [place] [address]Stx: (HP) (WP) Primary Insurance:BCBSPoli cy Number: [id number] hussein Date:2023-04-10 ED ESTESYLORDOB: [id number] [place] [address] [facility] 04/11/[address] [place] [address]Dat: (HP) Primary Insurance:Self PayPolicy Number: Effective Date:2024-04-11 [facility] ED ESTESYLORDOB: [place] [address]Dmu: (HP) (WP) Primary Insurance:BCBSPoli cy Number: [id number] hussein Date:2023-04-10 ED ESTESYLORDOB: [id number] [place] [address] [facility] 04/11/2024 ED ESTESYLORDOB: [place] [address]Nld: (HP) (WP) Primary Insurance:BCBSPoli cy Number: [id number] hussein Date:2023-04-10 ED ESTESYLORDOB: [id number] [place] [address] [facility] 02/15/2024 ED ESTESYLORDOB: [place] [address]Mza: (HP) (WP) Primary Insurance:[facility] cy Number: [id number] hussein Date:2023-04-10 ED Jordan STACYORDOB: [id number] [place] [address] [facility] 02/12/2024 ED L TIMOB: [place] [address]Esr: (HP) (WP) Primary Insurance:[facility] cy Number: [id number] hussein Date:2023-04-10 ED Jordan TIMOB: [id number] [place] [address] [facility]
--- OUTSIDE RECORDS SUMMARY | 2024-10-14 14:30 | XMS_ITS | Encounter Summary ---
Author Organization [facility] Address [address] [place] [address] Care Team Providers Care Intelligence Support Officer Name Role Phone Unavailable Primary Care Provider Unavailabl e Reason for Visit * Reason Comments Routine Visit Encounter Details Date Type Department Care Team (Late st Contact Info) Description 10/14/2024 2:30 PM EDT Routine [facility] OB [address] [place] [address] Theodore Campbell, DO [address] [facility] [address] Aisha [place], [facility] 35 weeks gestation of ([facility]); Third trimester ([facility]); Multigravida of advanced maternal age in third trimester ([facility]); Excessive growth affecting management of , antepartum, single or unspecified fetus ([facility]); Low iron; HSV infection Social History Tobacco [...] Start Date Job End Date Works at [email or web address] Not on file Not on file Not [...] this encounter Progress Notes * Daniela Candelaria, ENTRY EXAMINER - 10/14/2024 2:30 PM EDT Reason for Appointment: Patient ID: Beulah Murphy is a 33 y.o. female who presents for Routine Visit Patient presents today for Return OB appointment. MEDICATIONS Current Outpatient Medications Medication Instructions Kgohtrod-Dkl-Nr-FA ( 1 + IRON PO) ALLERGIES Allergies Allergen Reactions Cefadroxil Hives Other Reaction(s): hives, Unknown Other Reaction(s): hives, rash Latex Itching Other Reaction(s): Itching Other Reaction(s): Hives Paroxetine Other Reaction(s): Unknown PROBLEMS Active Ambulatory Problems Diagnosis Date Noted Anovulation 12/02/2022 DUB (dysfunctional uterine bleeding) 12/02/2022 Menstrual disorder 12/02/2022 Missed menses 12/02/2022 Yeast infection 12/02/2022 31 weeks gestation of ([facility]) 09/17/2024 Third trimester ([facility]) 09/17/2024 Multigravida of advanced maternal age in third trimester ([facility]) 09/17/2024 Resolved Ambulatory Problems Diagnosis Date Noted Bleeding in early ([facility]) 12/02/2022 Past Medical History: Diagnosis Date Frequent UTI Herpes History of chlamydia 2008 History of depression 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 2011 Personal history of other medical treatment ([facility]) [place] teeth removed HISTORY PAST MEDICAL HISTORY SOCIAL HISTORY Past Medical History: Diagnosis Date Bleeding in early ([facility]) 12/02/2022 Frequent UTI Herpes History of chlamydia 2008 History of depression no meds 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 Personal history of other medical treatment Frenectomy ([facility]) x2 [place] teeth removed Social History Tobacco Use Smoking [...] nursing note reviewed. Exam conducted with a health unit clerk present. Vitals: Estimated body mass index is 42.67 kg/m?? as calculated from the following: Height as of 08/22/22: 5' 8.5 . Weight as of this encounter: 284 lb 12.8 oz. BP: 110/70 Patient's last menstrual period was 02/11/2024. ASSESSMENT & PLAN ICD-10-CM 1. 35 weeks gestation of ([facility]) Z3A.35 POCT urinalysis dipstick manually resulted 2. Third trimester ([facility]) Z34.93 POCT urinalysis dipstick manually resulted 3. Multigravida of advanced maternal age in third trimester ([facility]) O09.523 4. Excessive growth affecting management of , antepartum, single or unspecified fetus ([facility]) O36.60X0 5. Low iron E61.1 Patient presents today for a routine obstetrics appointment. Patient is currently 35w1d with a Estimated Date of Delivery: 11/17/24. Patient aware that [facility]. Patient will return to clinic in 1 week for routine OB appointment and GBS will be obtained at that time. Documented by Daniela Candelaria LPN... on behalf of: Theodore Campbell DO documented in this encounter Plan of Treatment Upcoming Encounters Date Type Department Care Team (Late st Contact Info) Description 10/21/2024 2:00 PM EDT Routine [facility] OB [address] [place] [phone] Theodore Campbell DO [address] [facility] [place] [address] documented as of this encounter Procedures Procedure Name Priority Date/Time Associated Diagnosis Comments POCT URINALYSIS DIPSTICK Routine 10/14/2024 3:18 PM EDT 35 weeks gestation of ([facility]) Third trimester ([facility]) documented in this encounter Results * POCT [...] Visit Diagnoses Diagnosis 35 weeks gestation of ([facility]) Third trimester ([facility]) state, incidental Multigravida of advanced maternal age in third trimester ([facility]) Excessive growth affecting management of , antepartum, single or unspecified fetus ([facility]) Low iron Unspecified iron deficiency anemia HSV infection Herpes simplex without mention of complication documented in this encounter
--- OUTSIDE RECORDS SUMMARY | 2024-10-15 18:04 | XMS_ITS | Clinical Summary ---
Author Organization [facility] Address [address] [place] [address] Care Team Providers Care Rnfa Name Role Phone Unavailable Primary Care Provider Unavailabl e Allergies Active Allergy Reactions Criticality Noted Date Comments Cefadroxil Hives 12/02/2022 Other Reaction(s): hives, Unknown Other Reaction(s): hives, rash Latex Itching 12/02/2022 Other Reaction(s): Itching Other Reaction(s): Hives Paroxetine 12/02/2022 Other Reaction(s): Unknown Medications Tdavsvco-Ylp-Dm-FA ( 1 + IRON PO) Active valACYclovir (Valtrex) 500 MG tabletIndications: HSV infection Take 1 tablet (500 mg) by mouth Daily 30 tablet 5 10/15/19 25 2024 Active Alcohol Swabs (Alcohol Prep Pad) 70 % padsIndications:Ge stational diabetes mellitus (GDM), antepartum, gestational diabetes method of control unspecified (HHS-HCC),Elevated glucose tolerance test Apply 1 Pad topically Daily Use four times daily to check FSBS. 150 each 3 07/26/19 25 2024 Discontinued Blood Glucose Monitoring Suppl (D-Care Glucometer) w/Device kitIndications:Ges tational diabetes mellitus (GDM), antepartum, gestational diabetes method of control unspecified (HHS-HCC),Elevated glucose tolerance test 1 kit Daily Use four times daily to check FSBS. In the morning prior to breakfast & 1 hour after each meal for a total of 4times daily. 1 kit 07/26/192024 Discontinued iron polysaccharides (ProFe) 391.3 (180 Fe) MG capsuleIndications :Low iron Take 1 capsule (391.3 mg) by mouth Daily 30 capsule 6 08/29/192024 Active Problems Problem Noted Date Diagnosed Date 31 weeks gestation of ([facility]) 2024 Third trimester ([facility]) 09/17/2024 Multigravida of advanced mat ernal age in third trimester ([facility]) 09/17/2024 Anovulation 12/02/2022 DUB (dysfunctional uterine bleeding) 12/02/2022 Menstrual disorder 12/02/2022 Missed menses 12/02/2022 Yeast infection 12/02/2022 Estimated Date of Delivery Comme nts Yes 11/17/2024 Based on last me nstrual period of 02/11/2024 Resolved Problems Problem Noted Date Diagnosed Date Resolved Date Bleeding in early ([facility]) 12/02/2022 12/02/2022 Encounters Date Type Department Care Team Description 10/14/2024 2:30 PM EDT [facility]ine [facility] [address] [place] [address] Aquiles Campbell, 35 weeks gestation of ([facility]); Third trimester ([facility]); Multigravida of advanced maternal age in third trimester ([facility]); Excessive growth affecting management of , antepartum, single or unspecified fetus ([facility]); Low iron; HSV infection 10/14/2024 2:00 PM EDT Ancillary Procedure [facility] [place] [address] [phone] Multigravida of advanced maternal age in third trimester ([facility]); H/O miscarriage, currently ([facility]) 10/14/2024 Abstract [facility] [place] [address] [address] Aquiles Campbell, 10/14/2024 Travel 10/09/2024 Clinisync Result Encounter [facility] External Department Unsolicited Aquiles Campbell, 10/02/2024 Clinisync Result Encounter [facility]OMS External Department Unsolicited Aquiles Campbell, DO 09/30/2024 3:30 PM EDT Routine [facility] [address] [place] [address] Flower Joyce PA Third trimester ([facility]); 33 weeks gestation of ([facility]) 09/30/2024 Bamboo flowsheet [facility] [address] [place] [address] Flower Joyce PA 09/26/2024 Travel 09/25/2024 Clinisync Result Encounter [facility]OM[facility] External Department Unsolicited Aquiles Campbell, DO 09/23/2024 Abstract [facility] [address] [place] [address] Aquiles Campbell, DO 09/17/2024 10:20 AM EDT Routine [facility] [address] [place] [address] Aquiles Campbell, DO 31 weeks gestation of ([facility]); Third trimester ([facility]); Multigravida of advanced maternal age in third trimester ([facility]); Excessive growth affecting management of , antepartum, single or unspecified fetus ([facility]) 09/17/2024 9:30 AM EDT Ancillary Procedure [facility] [address] [place] [address] Size of fetus inconsistent with dates in second trimester ([facility]) 09/16/2024 Travel 09/14/2024 Travel 08/28/[address] [address] [place] [address] Vicki Aguirre LPN 08/27/2024 8:50 AM EDT Routine [facility] [address] [place] [address] Flower Joyce PA Size of fetus inconsistent with dates in second trimester ([facility]) (Primary Dx); Third trimester ([facility]); 28 weeks gestation of ([facility]) 08/27/2024 Clinisync Result Encounter [facility] External Department Unsolicited Flower Joyce PA 08/27/2024 Bamboo flowsheet [facility] [address] [place] [address] Flower Joyce PA 08/26/2024 Travel 08/20/2024 Abstract [facility] [address] [place] [phone] Shanna Bailon MA 08/01/2024 9:10 AM EDT Routine [facility] [address] [place] [phone] Aquiles Campbell DO Second trimester ([facility]); 24 weeks gestation of ([facility]); Multigravida of advanced maternal age in second trimester ([facility]) 08/01/2024 8:30 AM EDT Ancillary Procedure [facility] [address] [place] [address] Encounter for follow-up ultrasound of anatomy ([facility]) 08/01/20[address] [facility] [address] [place] [address] [phone] Daniela Candelaria LPN 07/31/2024 Travel 07/25/2024 Abstract [facility] [address] [place] [address] Aquiles Campbell DO 07/25/20[address] [facility] [address] [place] [address] [phone] Aquiles Campbell DO from Last 3 Months Family History Medical [...] Start Date Job End Date Works at [employer] Not on file Not on file Not on file Last Filed Vital Signs Vital Sign Reading Time Taken Comments Blood Pressure 110/70 10/14/2024 3:07 PM EDT Pulse - - Temperature - - Respiratory Rate - - Oxygen Saturation - - Inhaled Oxygen Concentration - - Weight 129 kg (284 lb 12.8 oz) 10/14/2024 3:07 P M EDT Height 174 cm (5' 8.5 ) 08/22/2022 12:00 PM EDT Body Mass Index 42.67 08/22/2022 12:00 PM EDT Plan of Treatment Upcoming Encounters Date Type Department Care Team (Late st Contact Info) Description 10/21/2024 2:00 PM EDT Routine [facility] OB [address] [place] [place] [phone] Aquiles Campbell, DO [address] [facility] [address] [place], [place] [id number] Procedures Procedure Name Priority Date/Time Associated Diagnosis Comments POCT URINALYSIS DIPSTICK Routine 10/14/2024 3:18 PM EDT 35 weeks gestation of ([facility]) Third trimester ([facility]) US OB FOLLOW UP TRANSABDOMINAL APPROACH Routine 10/14/2024 2:25 PM EDT Multigravida of advanced maternal age in third trimester ([facility]) H/O miscarriage, currently ([facility]) US OB BPP W NON-STRESS 10/09/2024 7:52 AM EDT US OB BPP W NON-STRESS 10/02/2024 8:07 AM EDT POCT URINALYSIS DIPSTICK Routine 09/30/2024 3:51 PM EDT Third trimester ([facility]) US OB BPP W NON-STRESS 09/25/2024 7:58 AM EDT POCT URINALYSIS DIPSTICK Routine 09/17/2024 10:37 AM EDT 31 weeks gestation of ([facility]) Third trimester ([facility]) Multigravida of advanced maternal age in third trimester ([facility]) US OB FOLLOW UP TRANSABDOMINAL APPROACH Routine 09/17/2024 9:58 AM EDT Size of fetus inconsistent with dates in second trimester ([facility]) ALL CBC WITH AUTO DIFF Routine 10:10 AM EDT MLR HEMOGLOBIN A1C Routine 08/27/2024 10 :10 AM EDT POCT URINALYSIS DIPSTICK Routine 08/27/2024 9:26 AM EDT Third trimester ([facility]) 28 weeks gestation of ([facility]) US OB LIMITED 1+ FETUSES Routine 08/01/2024 9:02 AM EDT Encounter for follow-up ultrasound of anatomy ([facility]) from Last 3 Months Results * POCT urinalysis dipstick manually resulted (10/14/2024 3:18 PM EDT) Only the most recent of4 resultswithin the time period is included. Color, UA Yellow Clarity, UA Cloudy Glucose, [...] - Positive Urine 10/14/2024 3:18 PM EDT us Aquiles Adrian DO POINT OF CARE TEST ENTER/EDIT OR DERABLES Final Result * US OB follow up transabdominal approach (10/14/2024 2:25 PM EDT) Only the most recent of2 resultswithin the time period is included. Anatomical Region Laterality Modality Body Ultrasound 10/15/2024 [...] ELECTRONICALLY SIGNED BY: Campos Vital MD us Aquiles Adrian DO IMG OB US PROCEDURES Final Resul t * US OB BPP W NON-STRESS (10/09/2024 7:52 AM EDT) Only the most recent of3 resultswithin the time period is included. Anatomical Region Laterality Modality Other 10/09/2024 7:52 AM EDT Narrative 10/09/2024 9:45 AM EDT The [address] [address] Ultrasound Report Signed Patient: ED SILVA MR#: [id number] : 1990 Acct:[id number] Age/Sex: 33 / F ADM Date: 10/08/24 Loc: US Attending Dr: Aquiles Campbell D.O. Ordering Physician: Aquiles Campbell D.O. Date of Service: 10/08/24 Procedure(s): US OB BPP w non-stress Accession Number(s): [id number] cc: Aquiles Campbell D.O.; Physician,Non-Staff [place] [address] Patient Name: ED SILVA MRN: [facility]:[id number] date: 1990 Sex: F Assigned Patient Location: US Current Patient Location: Accession/Order Number: [id number] Exam Date: 10/09/2024 07:51 Report Date: 10/09/2024 [...] Torre M.D. 10/09/2024 7:52 AM Dictation Location: [place] [address] Electronically authenticated by: [id number] Y Date: 10/09/2024 07:52 Dictated By: Alexus De La Torre M.D. Signed By: 10/09/24 0945 DD/ 0752 TD/TT: Deli Manager: Procedure Note Radiology, Radiologist, - 10/09/2024 [place] [address] Ultrasound Report Signed Patient: ED SILVAMR#: [id number] : 1990Acct:[id number] Age/Sex: 33 / FADM Date: 10/08/24 Loc: US Attending Dr: Aquiles Campbell D.O. Ordering Physician: Aquiles Campbell D.O. Date of Service: 10/08/24 Procedure(s): US OB BPP w non-stress Accession Number(s): [id number] cc: Aquiles Campbell D.O.; Physician,Non-Staff [place] [facility] [place] [id number] Patient Name: ED SILVA MRN: [facility]:[id number] date: 1990 Sex: F Assigned Patient Location: Current Patient Location: Accession/Order Number: [id number] Exam Date: 10/09/2024 07:51 Report Date: 10/09/2024 07:52 At the request of: AQUILES CAMPBELL DO Procedure: US OB BPP w non-stress BIOPHYSICAL PROFILE: CLINICAL INFORMATION: MULTIGRAVIDA OF ADVANCED MATERNAL AGE O09.523 COMPARISON: 10/01/2024 There is a single live intrauterine gestation in cephalic presentation.The reported gestational age is 34 weeks 2 days. The heart ratemeasures 136 beats per minute. FINDINGS: TONE: 1 [...] NORMAL BIOPHYSICAL PROFILE Impression dictated by: Alexus DeL a Torre M.D. 10/09/2024 7:52 AM Dictation Location: [place] [address] Electronically authenticated by: [id number] Y Date: 7:52 Dictated By: Alexus De La Torre M.D. Signed By:10/09/24 0945 DD/ 0752 TD/TT: Deli Manager: us Aquiles Campbell DO [facility] Final Result * MLR HEMOGLOBIN A1C (08/27/2024 10:10 AM EDT) Pathologist [facility] GLYCOHEMOGLOBIN A1C 5.6 4.5 - 6.2 % TB Comment: ADA RECOMMENDED LIMIT 4.0 - 6.0 ADA THERAPEUTIC TARGET < 7.0 ACTION SUGGESTED > 7.0 ESTIMATED AVERAGE GLUCOSE 114 mg/dL TB 08/27/2024 10:1 0 AM EDT 08/27/2024 10:21 AM EDT Narrative [facility] - 08/27/2024 10:36 AM EDT Flower [place] [facility] * ([facility]NORM[facility]) ALL CBC WITH AUTO DIFF (08/27/2024 10:10 AM EDT) Pathologist [facility] TB WBC 10.0 4.0 - 11.0 10 3/uL TBH TB RBC 3.63(L) 4.20 - 5.40 10 6/uL TBH TBH HGB 11.0(L) 12.0 - 16.0 g/dL TBH TB HCT 32.9(L) 36.0 - 48.0 % [...] Narrative [facility] - 08/27/2024 10:44 AM EDT Flower VITALE Final Result [facility] TB * US OB limited 1+ fetuses [...] II, MD, PHD at 01-Aug-2024 11:20:36 PM [facility] Procedure Note Meghann Knight MD - [...] signed by MEGHANN KNIGHT II, MD, PHD [id number] 11:20:36 PM [facility] us Aquiles Adrian DO IMG OB US PROCEDURES Final Resul t from Last [address] [facility]
--- OUTSIDE RECORDS SUMMARY | 2024-10-15 18:04 | XMS_ITS | Encounter Summary ---
Author Organization [facility] Address [address] [facility] [place] [address] Care Team Providers Care Genetic Technologist Name Role Phone Unavailable Primary Care Provider Unavailabl e Encounter Details Date Type Department Care Team (Late st Contact Info) Description 04/15/2024 Abstract [facility] OB [address] [place] [address] Theodore Campbell, [address] [place] [address] Aisha [place], [facility]11 Social History Tobacco Use Types Packs/Day [...] Start Date Job End Date Works at [employer] Not on file Not on file Not on file documented as of this encounter Plan of Treatment Upcoming Encounters Date Type Department Care Team (Late st Contact Info) Description 10/21/2024 2:00 PM EDT Routine [facility] OB [address] [place] [address] Theodore Campbell, [address] Aisha [place]a [place], [place] [id number] documented as of this encounter Visit Diagnoses Not on filedocumented in this encounter
--- OUTSIDE RECORDS SUMMARY | 2024-10-15 18:04 | XMS_ITS | Encounter Summary ---
Author Organization [facility] Address [address] [facility] [place] [address] Care Team Providers Care Air Compressor Mechanic Name Role Phone Unavailable Primary Care Provider Unavailabl e Encounter Details Date Type Department Care Team (Late st Contact Info) Description 04/12/2024 Abstract [facility] OB [address] [place] [address] Theodore Campbell, [address] [place] [address] Aisha Dela [place], [facility]11 Social History Tobacco Use Types Packs/Day Years [...] Start Date Job End Date Works at [employer] Not on file Not on file Not on file documented as of this encounter Plan of Treatment Upcoming Encounters Date Type Department Care Team (Late st Contact Info) Description 10/21/2024 2:00 PM EDT Routine [facility] OB [address] [place] [address] Theodore Campbell, [address] Aisha [place]a [place], [place] [id number] documented as of this encounter Visit Diagnoses Not on filedocumented in this encounter
--- OUTSIDE RECORDS SUMMARY | 2024-10-15 18:04 | XMS_ITS | Encounter Summary ---
Author Organization [facility] tem Address [id number] [address] [place] [address] Care Team Providers Care Doughnut Machine Operator Helper Name Role Phone Unavailable Primary Care Provider Unavailabl e Encounter Details Date Type Department Care Team (Late st Contact Info) Description 08/07/2024 Orders Only Maternal- Medicine at [facility] [address] [facility] [place] [id number] Ref Prov, [place] [address] Social History Tobacco Use Types Packs/Day Years [...]
--- OUTSIDE RECORDS SUMMARY | 2024-10-15 18:05 | XMS_ITS | Encounter Summary ---
Author Organization [facility] Address [address] [place] [address] Care Team Providers Care Functional Director Name Role Phone Unavailable Primary Care Provider Unavailabl e Encounter Details Date Type Department Care Team (Late st Contact Info) Description 10/09/2024 Clinisync Result Encounter [facility] External Department Unsolicited Aquiles Campbell DO [address] [place] [address] Social History Tobacco Use Types Packs/Day Years [...] Start Date Job End Date Works at [employer] Not on file Not on file Not on file documented as of this encounter Plan of Treatment Upcoming Encounters Date Type Department Care Team (Late st Contact Info) Description 10/21/2024 2:00 PM EDT Routine [facility] OB [address] [place] [phone] Aquiles Campbell DO [address] [facility] [place] [address] documented as of this encounter Procedures Procedure Name Priority Date/Time Associated Diagnosis Comments US OB BPP W NON-STRESS 10/09/2024 7:52 AM EDT documented in this encounter Results * US OB BPP W NON-STRESS (10/09/2024 7:52 AM EDT) Anatomical Region Laterality Modality Other 10/09/2024 7:52 AM EDT Narrative 10/09/2024 9:[place] [address] Ultrasound Report Signed Patient: ED SILVA MR#: [id number] : 1990 Acct:[id number] Age/Sex: 33 / F ADM Date: 10/08/24 Loc: US Attending Dr: Aquiles Campbell D.O. Ordering Physician: Aquiles Campbell D.O. Date of Service: 10/08/24 Procedure(s): US OB BPP w non-stress Accession Number(s): [id number] cc: Aquiles Campbell D.O.; Physician,Non-Staff Hussein The [address] [address] Patient Name: ED SILVA MRN: [facility]:[id number] date: 1990 Sex: F Assigned Patient Location: US Current Patient Location: Accession/Order Number: [id number] Exam Date: 10/09/2024 07:51 Report Date: 10/09/2024 [...] Torre M.D. 10/09/2024 7:52 AM Dictation Location: [place] [address] Electronically authenticated by: [id number] Y Date: 10/09/2024 07:52 Dictated By: Alexus De La Torre M.D. Signed By: 10/09/24 0945 DD/ 0752 TD/TT: Drill Press Operator Helper: Procedure Note Radiology, Radiologist, MD - 10/09/2024 [place] [address] Ultrasound Report Signed Patient: ED SILVAMR#: [id number] : 1990Acct:[id number] Age/Sex: 33 / FADM Date: 10/08/24 Loc: US Attending Dr: Aquiles Campbell D.O. Ordering Physician: Aquiles Campbell D.O. Date of Service: 10/08/24 Procedure(s): US OB BPP w non-stress Accession Number(s): [id number] cc: Aquiles Campbell D.O.; Physician,Non-Staff Hussein The [address] [address] Patient Name: ED SILVA MRN: [id number] date: 1990 Sex: F Assigned Patient Location: US Current Patient Location: Accession/Order Number: [id number] Exam Date: 10/09/2024 07:51 Report Date: 10/09/2024 [...] Torre M.D. 10/09/2024 7:52 AM Dictation Location: [place] [address] Electronically authenticated by: [id number] Y Date: 507:52 Dictated By: Alexus De La Torre M.D. Signed By:10/09/24 0945 DD/ 0752 TD/TT: Drill Press Operator Helper: Aquiles Campbell DO [facility] Final Result documented in this encounter Visit Diagnoses Not on filedocumented in this encounter
--- OUTSIDE RECORDS SUMMARY | 2024-10-15 18:05 | XMS_ITS | Encounter Summary ---
Author Organization [facility] Address [address] [place] [address] Care Team Providers Care Mgmt Specialist Name Role Phone Unavailable Primary Care Provider Unavailabl e Encounter Details Date Type Department Care Team (Late st Contact Info) Description 12/01/2022 Abstract [facility] OB [address] [facility] [address] [place] [phone] Toi Maradiaga, DO [address] [facility] [address] [place] [address] Social History Tobacco Use Types Packs/Day Years [...] Start Date Job End Date Works at [employer] Not on file Not on file Not on file documented as of this encounter Plan of Treatment Upcoming Encounters Date Type Department Care Team (Late st Contact Info) Description 10/21/2024 2:00 PM EDT Routine [facility] OB [address] [place] [address] Theodore Campbell, DO [address] [place] [address] documented as of this encounter Visit Diagnoses Not on filedocumented in this encounter
--- OUTSIDE RECORDS SUMMARY | 2024-10-15 18:05 | XMS_ITS | Encounter Summary ---
Author Organization [facility] Address [address] [facility] [place] [address] Care Team Providers Care Farm Operations Manager Name Role Phone Unavailable Primary Care Provider Unavailabl e Encounter Details Date Type Department Care Team (Late st Contact Info) Description 09/23/2024 Abstract [facility] OB [address] [place] [address] Theodore Campbell, [address] Aisha [place], [facility]11 Social History Tobacco Use Types Packs/Day Years [...] Start Date Job End Date Works at [employer] Not on file Not on file Not on file documented as of this encounter Plan of Treatment Upcoming Encounters Date Type Department Care Team (Late st Contact Info) Description 10/21/2024 2:00 PM EDT Routine [facility] [address] [place] [address] Theodore Campbell, [address] Aisha [place], [place] [phone] documented as of this encounter Visit Diagnoses Not on filedocumented in this encounter
--- OUTSIDE RECORDS SUMMARY | 2024-10-15 18:05 | XMS_ITS | Encounter Summary ---
Author Organization [facility] Address [address] [place] [address] Care Team Providers Care County Extension Agent Name Role Phone Unavailable Primary Care Provider Unavailabl e Encounter Details Date Type Department Care Team (Late st Contact Info) Description 10/02/2024 Clinisync Result Encounter N[facility] External Department Unsolicited Aquiles Campbell DO [address] [place] [address] Social History Tobacco Use Types Packs/Day Years [...] Start Date Job End Date Works at [employer] Not on file Not on file Not on file documented as of this encounter Plan of Treatment Upcoming Encounters Date Type Department Care Team (Late st Contact Info) Description 10/21/2024 2:00 PM EDT Routine [facility] OB [address] [place] [phone] Aquiles Campbell DO [address] [facility] [place] [address] documented as of this encounter Procedures Procedure Name Priority Date/Time Associated Diagnosis Comments US OB BPP W NON-STRESS 10/02/2024 8:07 AM EDT documented in this encounter Results * US OB BPP W NON-STRESS (10/02/2024 8:07 AM EDT) Anatomical Region Laterality Modality Other 10/02/2024 8:07 AM EDT Narrative 10/02/2024 8:10 [place] [address] Ultrasound Report Signed Patient: ED SILVA MR#: [id number] : 1990 Acct:[id number] Age/Sex: 33 / F ADM Date: 10/01/24 Loc: US Attending Dr: Aquiles Campbell D.O. Ordering Physician: Aquiles Campbell D.O. Date of Service: 10/01/24 Procedure(s): US OB BPP w non-stress Accession Number(s): [id number] cc: Aquiles Campbell D.O.; Physician,Non-Staff Hussein The [address] [address] Patient Name: ED SILVA MRN: [facility]:[id number] date: 1990 Sex: F Assigned Patient Location: [facility] Current Patient Location: Accession/Order Number: [id number] Exam Date: 10/02/2024 08:04 Report Date: 10/02/2024 [...] Torre M.D. 10/02/2024 8:07 AM Dictation Location: [place] [address] Electronically authenticated by: [id number] Y Date: 10/02/2024 08:07 Dictated By: Alexus De La Torre M.D. Signed By: 10/02/24809 DD/ 6 TD/TT: Plastic Dolls Mold Filler: Procedure Note Radiology, Radiologist, MD - 10/02/2024 [place] [address] Ultrasound Report Signed Patient: ED SILVAMR#: [id number] : 1990Acct:[id number] Age/Sex: 33 / FADM Date: 10/01/24 Loc: US Attending Dr: Aquiles Campbell D.O. Ordering Physician: Aquiles Campbell D.O. Date of Service: 10/01/24 Procedure(s): US OB BPP w non-stress Accession Number(s): [id number] cc: Aquiles Campbell D.O.; Physician,Non-Staff Hussein The [address] [address] Patient Name: ED SILVA MRN: [id number] date: 1990 Sex: F Assigned Patient Location: [facility] Current Patient Location: Accession/Order Number: [id number] Exam Date: 10/02/2024 08:04 Report Date: 10/02/2024 [...] Torre M.D. 10/02/2024 8:07 AM Dictation Location: [place] [address] Electronically authenticated by: [id number] Y Date: 508:07 Dictated By: Alexus De La Torre M.D. Signed By:10/02/24 0810 DD/ 0807 TD/TT: Plastic Dolls Mold Filler: Aquiles Campbell DO [facility] Final Result documented in this encounter Visit Diagnoses Not on filedocumented in this encounter
--- OUTSIDE RECORDS SUMMARY | 2024-10-15 18:05 | XMS_ITS | Clinical Summary ---
Author Organization [facility] tem Address [id number] [address] [place] [address] Care Team Providers Care Sales Representative Public Utilities Name Role Phone Unavailable Primary Care Provider [...] Travel 08/07/2024 Orders Only Maternal- Medicine at [facility] [address] [place] [address] Ref Prov, Not In System 08/07/2024 Abstract Maternal- Medicine at [facility] [address] [place] [address] External, Scanning Provider from Last 3 Months [...] 9:49 AM EDT) Anatomical Region Laterality Modality OB-LUNCHEONETTE OPERATOR Ultrasound 08/08/2024 8:19 AM EDT Narrative 08/08/2024 10:17 AM EDT NAME: SHIRA WARD : 1990 SEX: F Accession Number: [id number] ORDERING PHYSICIAN: AQUILES CAMPBELL REFERRING PHYSICIAN: AQUILES CAMPBELL Coding ----- --------- Procedures 54913: Ultrasound, uterus, real time with image documentation, and maternal evaluation plus detailed anatomic examination, transabdominal approach;single or first gestation Indication ----- --------- Screening for Anatomic Survey , AMA- Supervision of elderly, Previous x2, Obesity in History ----- --------- OB History 4. Para 2 [id number] Maternal Assessment ----- --------- Physical Exam Height [...] EFW (oz) 2 oz EFW by: Hadlock ([id number]) Extended Tibia 43.3 mm 26w 5d 81% Kiki Production Technician 3.6 mm CM 4.0 mm 3% Nicolaides [...] view. RVOT view. LVOT view. 3-vessel view. 3-clrpyi-ceskkyx view. Situs. Aortic arch view. Bicaval view. [...] WARD : 1990 SEX: F Accession Number: [id number] ORDERING PHYSICIAN: AQUILES CAMPBELL REFERRING PHYSICIAN: AQUILES CAMPBELL Coding ----- --------- Procedures [id number]: Ultrasound, uterus, real time with imagedocumentation, and maternal evaluation plus detailed anatomic examination, transabdominalapproach;single or first gestation Indication ----- --------- Screening for Anatomic Survey , AMA- Supervision of elderly, PreviousC-Section x2, Obesity in History ----- --------- OB History 4. Para 2 [id number] Maternal Assessment ----- --------- Physical Exam Height [...] EFW (oz) 2 oz EFW by: Hadlock ([id number]) Extended Tibia 43.3 mm 26w 5d 81% Kiki Production Technician 3.6 mm CM 4.0 mm 3% Nicolaides [...] 4-chamber view. RVOT view. LVOT view. 3-vessel view.1-qgupzp-gdrmfnq view. Situs. Aortic arch view. Bicaval view. [...] thepatient as necessary. us Aquiles Campbell DO [facility] [place] ORDERABLES Final Result * Ultrasound - Office (08/01/2024 10:19 AM EDT) Anatomical Region Laterality Modality AMB Ultrasound us Not In System Ref Prov [facility] US ORDERABLES Final R esult from Last 3 Months Insurance [facility]
--- OUTSIDE RECORDS SUMMARY | 2024-10-15 18:05 | XMS_ITS | Encounter Summary ---
Author Organization [facility] Address [address] [facility] [place] [address] Care Team Providers Care Real Estate Accountant Name Role Phone Unavailable Primary Care Provider Unavailabl e Encounter Details Date Type Department Care Team (Late st Contact Info) Description 10/14/2024 Abstract [facility] OB [address] [place] [address] Theodore Campbell [address] Aisha Del[place], [facility]11 Social History Tobacco Use Types Packs/Day Years [...] Start Date Job End Date Works at [employer] Not on file Not on file Not on file documented as of this encounter Plan of Treatment Upcoming Encounters Date Type Department Care Team (Late st Contact Info) Description 10/21/2024 2:00 PM EDT Routine N[facility] OB [address] [place] [address] Theodore Campbell, [address] Aisha [place], [place] [id number] documented as of this encounter Visit Diagnoses Not on filedocumented in this encounter
--- OUTSIDE RECORDS SUMMARY | 2024-10-15 18:05 | XMS_ITS | Encounter Summary ---
Author Organization [facility] Address [address] [facility] [place] [address] Care Team Providers Care Veterinary Practice Manager Name Role Phone Unavailable Primary Care Provider Unavailabl e Encounter Details Date Type Department Care Team (Late st Contact Info) Description 02/29/2024 Orders Only [facility] B[facility] OB [address] [place] [address] Priscila Joseph [place] [address] [place] [address] Social History Tobacco Use Types Packs/Day Years [...] Start Date Job End Date Works at [employer] Not on file Not on file Not on file documented as of this encounter Plan of Treatment Upcoming Encounters Date Type Department Care Team (Late st Contact Info) Description 10/21/2024 2:00 PM EDT Routine [facility] B[facility] OB [address] [place] [address] Theodore Campbell DO [address] [place], [place] [address] documented as of this encounter Procedures Procedure [...]
--- OUTSIDE RECORDS SUMMARY | 2024-10-15 18:05 | XMS_ITS | Encounter Summary ---
Author Organization [facility] Address [address] [facility] [place] [address] Care Team Providers Care Tax Assistant Name Role Phone Unavailable Primary Care Provider Unavailabl e Encounter Details Date Type Department Care Team (Late st Contact Info) Description 07/25/2024 Abstract [facility] OB [address] [place] [address] Theodore Campbell, [address] Aisha Del[place], [facility]11 Social History Tobacco Use Types [...] Start Date Job End Date Works at [employer] Not on file Not on file Not on file documented as of this encounter Plan of Treatment Upcoming Encounters Date Type Department Care Team (Late st Contact Info) Description 10/21/2024 2:00 PM EDT Routine [facility] OB [address] [place] [address] Theodore Campbell, [address] Aisha [place], [place] [address] documented as of this encounter Visit Diagnoses Not on filedocumented in this encounter
--- OUTSIDE RECORDS SUMMARY | 2024-10-15 18:05 | XMS_ITS | Encounter Summary ---
Author Organization [facility] Address [address] [place] [address] Care Team Providers Care Loom Repairer Name Role Phone Unavailable Primary Care Provider Unavailabl e Encounter Details Date Type Department Care Team (Late st Contact Info) Description 08/20/2024 Abstract [facility] B[facility] OB [address] [place] [address] Shanna Bailon MA Social History Tobacco [...] Start Date Job End Date Works at [employer] Not on file Not on file Not on file documented as of this encounter Plan of Treatment Upcoming Encounters Date Type Department Care Team (Late st Contact Info) Description 10/21/2024 2:00 PM EDT Routine [facility] B[facility] OB [address] [place] [address] Theodore Campbell, DO [address] [place] [address] documented as of this encounter Visit Diagnoses Not on filedocumented in this encounter
--- OUTSIDE RECORDS SUMMARY | 2024-10-15 18:05 | XMS_ITS | Encounter Summary ---
Author Organization [facility] Address [address] [place] [address] Care Team Providers Care Roll Finisher Name Role Phone Unavailable Primary Care Provider Unavailabl e Encounter Details Date Type Department Care Team (Latest Contact Info) Description 10/14/2024 Travel Social History Tobacco Use Types Packs/Day [...] Start Date Job End Date Works at [employer] Not on file Not on file Not on file documented as of this encounter Plan of Treatment Upcoming Encounters Date Type Department Care Team (Late st Contact Info) Description 10/21/2024 2:00 PM EDT Routine [facility] OB [address] [place] [address] Theodore Campbell, DO [address] [place] [address] documented as of this encounter Visit Diagnoses Not on filedocumented in this encounter
[2024-10-15 18:11] VITALS: BP 120/71; PULSE 85
--- NOTE | 2024-10-15 18:29 | US_ITS ---
The [place] [id number] Patient Name: ED SILVA MRN: [facility]:[id number] date: 1990 Sex: F Assigned Patient Location: Current Patient Location: Accession/Order Number: [id number] Exam Date: 10/16/2024 07:14 Report Date: 10/16/2024 07:15 At the request of: AQUILES CLEVELAND DO Procedure: US OB BPP w non-stress BIOPHYSICAL PROFILE: CLINICAL INFORMATION: MULTIGRAVIDA OF ADVANCED MATERNAL AGE O09.523 COMPARISON: 10/08/2024 There is a single live intrauterine gestation in cephalic presentation. The reported gestational age is 35 weeks 2 days. The heart rate measures 136 beats per minute. FINDINGS: TONE: 1 or more episodes of activity extension and flexion of extremity or opening and closing of the hand [Y] 2/2 GROSS BODY MOVEMENTS: 3 or more discrete body or limb movements [Y] 2/2 BREATHING MOVEMENTS: 1 or more episodes of breathing lasting at least 30 seconds [Y] 2/2 FRANK: A single deepest vertical pocket of amniotic fluid greater than 2 cm [Y] 2/2 FRANK: 17.5 cm . This is in upper normal range. Total score: 8/8 US/ OB BPP w non-stress IMPRESSION: NORMAL BIOPHYSICAL PROFILE Impression dictated by: Alexus De La Torre M.D. 10/16/2024 7:15 AM Dictation Location: [place] [address] Electronically authenticated by: [id number] Y Date: 10/16/2024 07:15
== END 2024-10-15 18:55 | disposition home or self-care (01) ==
LOC: US 18:03 → FBC 18:07
PROVIDERS: Visit Provider Obstetrics & Gynecology
DX: O09.523 Supervision of elderly multigravida, third trimester (principal); Z3A.35 35 weeks gestation of pregnancy
CPT/HCPCS: 76818

== ENCOUNTER 2024-10-18 09:11 | Outpatient (OUT) | payer BC, SELFPAY ==
--- OUTSIDE RECORDS SUMMARY | 2024-10-14 14:00 | XMS_ITS | Encounter Summary ---
Author Organization [facility] Address [address] [place] [address] Care Team Providers Care Supervisor Paper Products Name Role Phone Unavailable Primary Care Provider Unavailabl e Encounter Details Date Type Department Care Team (Latest Contact Info) Description 10/14/2024 2:00 PM EDT Ancillary Procedure [facility] [address] [place] [address] Multigravida of advanced maternal age in third trimester ([facility]); H/O miscarriage, currently ([facility]) Social History Tobacco Use Types Packs/Day [...] Start Date Job End Date Works at [employer] Not on file Not on file Not on file documented as of this encounter Plan of Treatment Upcoming Encounters Date Type Department Care Team (Late st Contact Info) Description 10/21/2024 2:00 PM EDT Routine [facility] [address] [place] [address] Theodore Campbell, DO [address] [place] [address] Dr Leonard Chu [place] [phone] documented as of this encounter Procedures Procedure Name Priority Date/Time Associated Diagnosis Comments US OB FOLLOW UP TRANSABDOMINAL APPROACH Routine 10/14/2024 2:25 PM EDT Multigravida of advanced maternal age in third trimester ([facility]) H/O miscarriage, currently ([facility]) documented in this encounter Results * US [...] of advanced maternal age in third trimester ([facility] H/O miscarriage, currently ([facility]) documented in this encounter
--- OUTSIDE RECORDS SUMMARY | 2024-10-14 14:30 | XMS_ITS | Encounter Summary ---
Author Organization [facility] Address [address] [place] [address] Care Team Providers Care Real Estate Associate Attorney Name Role Phone Unavailable Primary Care Provider Unavailabl e Reason for Visit * Reason Comments Routine Visit Encounter Details Date Type Department Care Team (Late st Contact Info) Description 10/14/2024 2:30 PM EDT Routine [facility] [address] [place] [address] Theodore Campbell, DO [address] [facility] [address] [place], [facility] 35 weeks gestation of ([facility]); Third trimester ([facility]); Multigravida of advanced maternal age in third trimester ([facility]); Excessive growth affecting management of , antepartum, single or unspecified fetus ([facility]); Low iron; HSV infection Social History Tobacco Use Types Packs/Day Years [...] Start Date Job End Date Works at [employer] Not on file Not on file Not on file documented as of this encounter Last Filed Vital Signs Vital Sign Reading Time Taken Comments Blood Pressure 110/70 10/14/2024 3:07 PM EDT Pulse - - Temperature - - Respiratory Rate - - Oxygen Saturation - - Inhaled Oxygen Concentration - - Weight 129 kg (284 lb 12.8 oz) 10/14/2024 3:07 P M EDT Height - - Body Mass Index 42.67 08/22/2022 12:00 PM EDT documented in this encounter Progress Notes * Daniela Candelaria, CUSTOMER SUPPORT SPECIALIST - 10/14/2024 2:30 PM EDT Reason for Appointment: Patient ID: Beulah Murphy is a 33 y.o. female who presents for Routine Visit Patient presents today for Return OB appointment. MEDICATIONS Current Outpatient Medications Medication Instructions [id number]-[id number] ( 1 + IRON PO) ALLERGIES Allergies Allergen Reactions Cefadroxil Hives Other Reaction(s): hives, Unknown Other Reaction(s): hives, rash Latex Itching Other Reaction(s): Itching Other Reaction(s): Hives Paroxetine Other Reaction(s): Unknown PROBLEMS Active Ambulatory Problems Diagnosis Date Noted Anovulation 12/02/2022 DUB (dysfunctional uterine bleeding) 12/02/2022 Menstrual disorder 12/02/2022 Missed menses 12/02/2022 Yeast infection 12/02/2022 31 weeks gestation of ([facility]) 09/17/2024 Third trimester ([facility]) 09/17/2024 Multigravida of advanced maternal age in third trimester ([facility]) 09/17/2024 Resolved Ambulatory Problems Diagnosis Date Noted Bleeding in early ([facility]) 12/02/2022 Past Medical History: Diagnosis Date Frequent UTI Herpes History of chlamydia 2008 History of depression 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 2011 Personal history of other medical treatment ([facility]) [place] teeth removed HISTORY PAST MEDICAL HISTORY SOCIAL HISTORY Past Medical History: Diagnosis Date Bleeding in early ([facility]) 12/02/2022 Frequent UTI Herpes History of chlamydia 2008 History of depression no meds 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 Personal history of other medical treatment Frenectomy ([facility]) x2 [place] teeth removed Social History Tobacco Use Smoking [...] nursing note reviewed. Exam conducted with a railroad switchman present. Vitals: Estimated body mass index is 42.67 kg/m?? as calculated from the following: Height as of 08/22/22: 5' 8.5 . Weight as of this encounter: 284 lb 12.8 oz. BP: 110/70 Patient's last menstrual period was 02/11/2024. ASSESSMENT & PLAN ICD-10-CM 1. 35 weeks gestation of ([facility]) Z3A.35 POCT urinalysis dipstick manually resulted 2. Third trimester ([facility]) Z34.93 POCT urinalysis dipstick manually resulted 3. Multigravida of advanced maternal age in third trimester ([facility]) O09.523 4. Excessive growth affecting management of , antepartum, single or unspecified fetus ([facility]) O36.60X0 5. Low iron E61.1 Patient presents today for a routine obstetrics appointment. Patient is currently 35w1d with a Estimated Date of Delivery: 11/17/24. Patient [facility]. Patient will return to clinic in 1 week for routine OB appointment and GBS will be obtained at that time. Documented by Daniela Candelaria LPN... on behalf of: Theodore Campbell DO documented in this encounter Plan of Treatment Upcoming Encounters Date Type Department Care Team (Late st Contact Info) Description 10/21/2024 2:00 PM EDT Routine [facility] [address] [place] [address] Theodore Campbell DO [address] [facility] [place] [address] documented as of this encounter Procedures Procedure Name Priority Date/Time Associated Diagnosis Comments POCT URINALYSIS DIPSTICK Routine 10/14/2024 3:18 PM EDT 35 weeks gestation of ([facility]) Third trimester ([facility]) documented in this encounter Results * POCT urinalysis dipstick manually resulted (10/14/2024 3:18 PM EDT) Color, UA Yellow Clarity, UA Cloudy Glucose, UA Negative Negative - 2000(110) ++++ mg/dL Bilirubin, UA Negative Negative - 4(70) +++ mg/dL Ketones, UA Negative Negative - 160(16) ++++ mg/dL Spec Grav, UA 1.010 1 - 1.03 Blood, UA Negative Negative - 50 Alex/mcL pH, UA 6.5 5 - 9 Protein, UA Negative Negative - 1999(20) ++++ mg/dL Urobilinogen, UA 0.2 0.2 - 12 mg/dL Leukocytes, UA Negative Negative - 500+++ Jodi/mcL Nitrite, UA Negative Negative - Positive Urine 10/14/2024 3:18 PM EDT Theodore Campbell DO POINT OF CARE TEST ENTER/EDIT OR DERABLES Final Result documented in this encounter Visit Diagnoses Diagnosis 35 weeks gestation of ([facility]) Third trimester ([facility]) state, incidental Multigravida of advanced maternal age in third trimester ([facility]) Excessive growth affecting management of , antepartum, single or unspecified fetus ([facility]) Low iron Unspecified iron deficiency anemia HSV infection Herpes simplex without mention of complication documented in this encounter
[2024-10-18 08:22] VITALS: BP 113/62; PULSE 80
--- OUTSIDE RECORDS SUMMARY | 2024-10-18 09:13 | XMS_ITS | Encounter Summary ---
Author Organization [facility] Address [address] [place] [address] Care Team Providers Care Microfilmer Name Role Phone Unavailable Primary Care Provider [...] Start Date Job End Date Works at [employer] Not on file Not on file Not on file documented as of this encounter Plan of Treatment Upcoming Encounters Date Type Department Care Team (Late st Contact Info) Description 10/21/2024 2:00 PM EDT Routine [facility] OB [address] [place] [address] Theodore Campbell, DO [address] [place] [address] documented as of this encounter Visit Diagnoses Not on filedocumented in this encounter
--- OUTSIDE RECORDS SUMMARY | 2024-10-18 09:13 | XMS_ITS | Encounter Summary ---
Author Organization [facility] Address [address] [facility] [place] [address] Care Team Providers Care Printing Roller Handler Name Role Phone Unavailable Primary Care Provider Unavailabl e Encounter Details Date Type Department Care Team (Late st Contact Info) Description 09/23/2024 Abstract [facility] OB [address] [place] [address] Theodore Campbell [address] Aisha [place], [facility]11 Social History Tobacco Use Types Packs/Day [...] Start Date Job End Date Works at [employer] Not on file Not on file Not on file documented as of this encounter Plan of Treatment Upcoming Encounters Date Type Department Care Team (Late st Contact Info) Description 10/21/2024 2:00 PM EDT Routine [facility] OB [address] [place] [address] Theodore Campbell, [address] Aisha [place], [place] [address] documented as of this encounter Visit Diagnoses Not on filedocumented in this encounter
--- OUTSIDE RECORDS SUMMARY | 2024-10-18 09:13 | XMS_ITS | Encounter Summary ---
Author Organization [facility] Address [address] [place] [address] Care Team Providers Care Mounter Name Role Phone Unavailable Primary Care Provider Unavailabl e Encounter Details Date Type Department Care Team (Late st Contact Info) Description 08/20/2024 Abstract [facility] BCP OB [address] [place] [address] Shanna Bailon MA Social History Tobacco [...] Start Date Job End Date Works at [employer] Not on file Not on file Not on file documented as of this encounter Plan of Treatment Upcoming Encounters Date Type Department Care Team (Late st Contact Info) Description 10/21/2024 2:00 PM EDT Routine [facility] BCP OB [address] [place] [address] Theodore Campbell, DO [address] [place] [address] documented as of this encounter Visit Diagnoses Not on filedocumented in this encounter
--- OUTSIDE RECORDS SUMMARY | 2024-10-18 09:13 | XMS_ITS | Encounter Summary ---
Author Organization [facility] tem Address [id number] [address] [place] [address] Care Team Providers Care Roll Filler Name Role Phone Unavailable Primary Care Provider Unavailabl e Encounter Details Date Type Department Care Team (Late st Contact Info) Description 08/07/2024 Orders Only Maternal- Medicine at [facility] [address] [facility] [place] [phone] Ref Prov, [place] [address] Social History Tobacco Use Types Packs/Day Years [...]
--- OUTSIDE RECORDS SUMMARY | 2024-10-18 09:13 | XMS_ITS | Encounter Summary ---
Author Organization [facility] Address [address] [facility] [place] [address] Care Team Providers Care Auto Claim Representative Name Role Phone Unavailable Primary Care Provider Unavailabl e Encounter Details Date Type Department Care Team (Late st Contact Info) Description 10/14/2024 Abstract [facility] [address] [place] [address] Theodore Campbell [address] Aisha [place], [facility]11 Social History Tobacco Use Types [...] Start Date Job End Date Works at [employer] Not on file Not on file Not on file documented as of this encounter Plan of Treatment Upcoming Encounters Date Type Department Care Team (Late st Contact Info) Description 10/21/2024 2:00 PM EDT Routine [facility] [address] [place] [address] Theodore Campbell, [address] Aisha [place], [place] [id number] documented as of this encounter Visit Diagnoses Not on filedocumented in this encounter
--- OUTSIDE RECORDS SUMMARY | 2024-10-18 09:13 | XMS_ITS | Encounter Summary ---
Author Organization [facility] Address [address] [facility] [place] [address] Care Team Providers Care Operating Engineer Name Role Phone Unavailable Primary Care Provider Unavailabl e Encounter Details Date Type Department Care Team (Late st Contact Info) Description 04/15/2024 Abstract [facility] [address] [place] [address] Theodore Campbell, [address] Aisha [place], [facility]11 Social History Tobacco Use Types Packs/Day Years [...] Start Date Job End Date Works at [employer] Not on file Not on file Not on file documented as of this encounter Plan of Treatment Upcoming Encounters Date Type Department Care Team (Late st Contact Info) Description 10/21/2024 2:00 PM EDT Routine [facility] [address] [place] [address] Theodore Campbell, [address] Aisha [place], [place] [id number] documented as of this encounter Visit Diagnoses Not on filedocumented in this encounter
--- OUTSIDE RECORDS SUMMARY | 2024-10-18 09:13 | XMS_ITS | Encounter Summary ---
Author Organization [facility] Address [address] [place] [address] Care Team Providers Care Public Relations Senior Associate Name Role Phone Unavailable Primary Care Provider Unavailabl e Encounter Details Date Type Department Care Team (Late st Contact Info) Description 10/16/2024 Abstract [facility] [address] [place] [address] Shanna Bailon MA Social History Tobacco [...] Start Date Job End Date Works at [employer] Not on file Not on file Not on file documented as of this encounter Plan of Treatment Upcoming Encounters Date Type Department Care Team (Late st Contact Info) Description 10/21/2024 2:00 PM EDT Routine [facility] [address] [place] [address] Theodore Campbell, DO [address] [place] [address] documented as of this encounter Visit Diagnoses Not on filedocumented in this encounter
--- OUTSIDE RECORDS SUMMARY | 2024-10-18 09:13 | XMS_ITS | Encounter Summary ---
Author Organization [facility] Address [address] [place] [address] Care Team Providers Care Staff Auditor Name Role Phone Unavailable Primary Care Provider Unavailabl e Encounter Details Date Type Department Care Team (Late st Contact Info) Description 12/01/2022 Abstract [facility] [address] [facility] [address] [place] [phone] Toi Maradiaga, DO [address] [facility] [address] [place] [address] Social History Tobacco Use Types Packs/Day Years [...] Start Date Job End Date Works at [employer] Not on file Not on file Not on file documented as of this encounter Plan of Treatment Upcoming Encounters Date Type Department Care Team (Late st Contact Info) Description 10/21/2024 2:00 PM EDT Routine [facility] [address] [place] [phone] Theodore Campbell, DO [address] [place] [address] documented as of this encounter Visit Diagnoses Not on filedocumented in this encounter
--- OUTSIDE RECORDS SUMMARY | 2024-10-18 09:13 | XMS_ITS | Encounter Summary ---
Author Organization [facility] Address [address] [place] [address] Care Team Providers Care Leasing Specialist Name Role Phone Unavailable Primary Care Provider Unavailabl e Encounter Details Date Type Department Care Team (Late st Contact Info) Description 10/09/2024 Clinisync Result Encounter [facility] External Department Unsolicited Aquiles Campbell DO [address] [place] [address] Social History Tobacco Use Types Packs/Day Years [...] Start Date Job End Date Works at [employer] Not on file Not on file Not on file documented as of this encounter Plan of Treatment Upcoming Encounters Date Type Department Care Team (Late st Contact Info) Description 10/21/2024 2:00 PM EDT Routine [facility] [address] [place] [phone] Aquiles Campbell DO [address] [facility] [place] [address] documented as of this encounter Procedures Procedure Name Priority Date/Time Associated Diagnosis Comments US OB BPP W NON-STRESS 10/09/2024 7:52 AM EDT documented in this encounter Results * US OB BPP W NON-STRESS (10/09/2024 7:52 AM EDT) Anatomical Region Laterality Modality Other 10/09/2024 7:52 AM EDT Narrative 10/09/2024 9:45 [place] [address] Ultrasound Report Signed Patient: ED SILVA MR#: [id number] : 1990 Acct:[id number] Age/Sex: 33 / F ADM Date: 10/08/24 Loc: US Attending Dr: Aquiles Campbell D.O. Ordering Physician: Aquiles Campbell D.O. Date of Service: 10/08/24 Procedure(s): US OB BPP w non-stress Accession Number(s): [id number] cc: Aquiles Campbell D.O.; Physician,Non-Staff Hussein The [address] [address] Patient Name: ED SILVA MRN: [facility]:[id number] date: 1990 Sex: F Assigned Patient Location: US Current Patient Location: Accession/Order Number: [id number] Exam Date: 10/09/2024 07:51 Report Date: 10/09/2024 [...] Torre M.D. 10/09/2024 7:52 AM Dictation Location: [place] [address] Electronically authenticated by: [id number] Y Date: 10/09/2024 07:52 Dictated By: Alexus De La Torre M.D. Signed By: 10/09/24 0945 DD/ 0752 TD/TT: Salvage Winder And Inspector: Procedure Note Radiology, Radiologist, MD - 10/09/2024 [place] [address] Ultrasound Report Signed Patient: ED SILVAMR#: [id number] : 1990Acct:[id number] Age/Sex: 33 / FADM Date: 10/08/24 Loc: US Attending Dr: Aquiles Campbell D.O. Ordering Physician: Aquiles Campbell D.O. Date of Service: 10/08/24 Procedure(s): US OB BPP w non-stress Accession Number(s): [id number] cc: Aquiles Campbell D.O.; Physician,Non-Staff Hussein The [address] [address] Patient Name: ED SILVA MRN: [id number] date: 1990 Sex: F Assigned Patient Location: US Current Patient Location: Accession/Order Number: [id number] Exam Date: 10/09/2024 07:51 Report Date: 10/09/2024 [...] Torre M.D. 10/09/2024 7:52 AM Dictation Location: [place] [address] Electronically authenticated by: [id number] Y Date: 507:52 Dictated By: Alexus De La Torre M.D. Signed By:10/09/24 0945 DD/ 0752 TD/TT: Salvage Winder And Inspector: Aquiles Campbell DO [facility] Final Result documented in this encounter Visit Diagnoses Not on filedocumented in this encounter
--- OUTSIDE RECORDS SUMMARY | 2024-10-18 09:13 | XMS_ITS | Encounter Summary ---
Author Organization [facility] Address [address] [place] [address] Care Team Providers Care Criminology Professor Name Role Phone Unavailable Primary Care Provider Unavailabl e Encounter Details Date Type Department Care Team (Late st Contact Info) Description 10/16/2024 Clinisync Result Encounter [facility] External Department Unsolicited Aquiles Campbell DO [address] [place] [address] Social History Tobacco Use Types Packs/Day Years [...] Start Date Job End Date Works at [employer] Not on file Not on file Not on file documented as of this encounter Plan of Treatment Upcoming Encounters Date Type Department Care Team (Late st Contact Info) Description 10/21/2024 2:00 PM EDT Routine [facility] [address] [place] [phone] Aquiles Campbell DO [address] [facility] [place] [address] documented as of this encounter Procedures Procedure Name Priority Date/Time Associated Diagnosis Comments US OB BPP W NON-STRESS 10/16/2024 7:15 AM EDT documented in this encounter Results * US OB BPP W NON-STRESS (10/16/2024 7:15 AM EDT) Anatomical Region Laterality Modality Other 10/16/2024 7:15 AM EDT Narrative 10/16/2024 7:17 [place] [address] Ultrasound Report Signed Patient: ED SILVA MR#: [id number] : 1990 Acct:[id number] Age/Sex: 33 / F ADM Date: 10/15/24 Loc: US Attending Dr: Aquiles Campbell D.O. Ordering Physician: Aquiles Campbell D.O. Date of Service: 10/15/24 Procedure(s): US OB BPP w non-stress Accession Number(s): [id number] cc: Aquiles Campbell D.O.; Physician,Non-Staff Hussein The [address] [address] Patient Name: ED SILVA MRN: [facility]:[id number] date: 1990 Sex: F Assigned Patient Location: US Current Patient Location: Accession/Order Number: [id number] Exam Date: 10/16/2024 07:14 Report Date: 10/16/2024 07:15 At the request of: AQUILES CAMPBELL DO Procedure: US OB BPP w non-stress BIOPHYSICAL PROFILE: CLINICAL INFORMATION: MULTIGRAVIDA OF ADVANCED MATERNAL AGE O09.523 COMPARISON: 10/08/2024 There is a single live intrauterine gestation in cephalic presentation. The reported gestational age is 35 weeks 2 days. The heart rate measures [...] greater than 2 cm [Y] 2/2 FRANK: 17.5 cm . This is in upper normal range. Total score: 11/15 US/US OB BPP w non-stress IMPRESSION: NORMAL BIOPHYSICAL PROFILE Impression dictated by: Alexus De La Torre M.D. 10/16/2024 7:15 AM Dictation Location: [place] [address] Electronically authenticated by: [id number] Y Date: 10/16/2024 07:15 Dictated By: Alexus De La Torre M.D. Signed By: 10/16/24716 DD/ 4 TD/TT: Soap Slabber: Procedure Note Radiology, Radiologist, MD - 10/16/2024 [place] [address] Ultrasound Report Signed Patient: ED SILVAMR#: [id number] : 1990Acct:[id number] Age/Sex: 33 / FADM Date: 10/15/24 Loc: US Attending Dr: Aquiles aCmpbell D.O. Ordering Physician: Aquiles Campbell D.O. Date of Service: 10/15/24 Procedure(s): US OB BPP w non-stress Accession Number(s): [id number] cc: Aquiles Campbell D.O.; Physician,Non-Staff Hussein The [address] [address] Patient Name: ED SILVA MRN: [id number] date: 1990 Sex: F Assigned Patient Location: US Current Patient Location: Accession/Order Number: [id number] Exam Date: 10/16/2024 07:14 Report Date: 10/16/2024 07:15 At the request of: AQUILES CAMPBELL DO Procedure: US OB BPP w non-stress BIOPHYSICAL PROFILE: CLINICAL INFORMATION: MULTIGRAVIDA OF ADVANCED MATERNAL AGE O09.523 COMPARISON: 10/08/2024 There is a single live intrauterine gestation in cephalic presentation.The reported gestational age is 35 weeks 2 days. The heart ratemeasures 136 [...] greater than 2 cm [Y] 2/2 FRANK: 17.5 cm . This is in upper normal range. Total score: 8/8 US/US OB BPP w non-stress IMPRESSION: NORMAL BIOPHYSICAL PROFILE Impression dictated by: Alexus De La Torre M.D. 10/16/2024 7:15 AM Dictation Location: [place] [address] Electronically authenticated by: [id number] Y Date: 507:15 Dictated By: Alexus De La Torre M.D. Signed By:10/16/24 0717 DD/ 0715 TD/TT: Soap Slabber: Aquiles Campbell DO [facility] Final Result documented in this encounter Visit Diagnoses Not on filedocumented in this encounter
--- OUTSIDE RECORDS SUMMARY | 2024-10-18 09:13 | XMS_ITS | Clinical Summary ---
Author Organization [facility] tem Address [id number] [address] [place] [address] Care Team Providers Care Faucet Polisher Name Role Phone Unavailable Primary Care Provider [...] 08/07/2024 Orders Only Maternal- Medicine at [facility] [address] [place] [address] Ref Prov, Not In System 08/07/2024 Abstract Maternal- Medicine at [facility] [address] [place] [address] External, Scanning Provider from Last 3 Months [...] 9:49 AM EDT) Anatomical Region Laterality Modality OB-PHYSICIAN PRESIDENT Ultrasound 08/08/2024 8:19 AM EDT Narrative 08/08/2024 10:17 AM EDT NAME: SHIRA WARD : 1990 SEX: F Accession Number: [id number] ORDERING PHYSICIAN: AQUILES CAMPBELL REFERRING PHYSICIAN: AQUILES CAMPBELL Coding ----- --------- Procedures 92937: Ultrasound, uterus, real time with image documentation, and maternal evaluation plus detailed anatomic examination, transabdominal approach;single or first gestation Indication ----- --------- Screening for Anatomic Survey , AMA- Supervision of elderly, Previous x2, Obesity in History ----- --------- OB History 4. Para 2 [id number] Maternal Assessment ----- --------- Physical Exam Height [...] EFW (oz) 2 oz EFW by: Hadlock ([id number]) Extended Tibia 43.3 mm 26w 5d 81% Kiki Project Development Leader 3.6 mm CM 4.0 mm 3% Nicolaides [...] view. RVOT view. LVOT view. 3-vessel view. 8-hmkzul-rdqcffl view. Situs. Aortic arch view. Bicaval view. [...] WARD : 1990 SEX: F Accession Number: [id number] ORDERING PHYSICIAN: AQUILES CAMPBELL REFERRING PHYSICIAN: AQUILES CAMPBELL Coding ----- --------- Procedures [id number]: Ultrasound, uterus, real time with imagedocumentation, and maternal evaluation plus detailed anatomic examination, transabdominalapproach;single or first gestation Indication ----- --------- Screening for Anatomic Survey , AMA- Supervision of elderly, PreviousC-Section x2, Obesity in History ----- --------- OB History 4. Para 2 [id number] Maternal Assessment ----- --------- Physical Exam Height 173 cm, 5 ft 8 in. Weight 125 kg, 276 lb. Initialweight 122 kg, 269 lb. BMI 41.97 kg/m . Initial BMI 40.90 kg/m . Weight gain 3 kg, 7 lb Method ----- --------- Transabdominal ultrasound examination ----- --------- Trveiño . Number of fetuses: 1 Dating ----- [...] EFW (oz) 2 oz EFW by: Hadlock ([id number]) Extended Tibia 43.3 mm 26w 5d 81% Kiki Project Development Leader 3.6 mm CM 4.0 mm 3% Nicolaides [...] 4-chamber view. RVOT view. LVOT view. 3-vessel view.0-kprcce-fsywsxd view. Situs. Aortic arch view. Bicaval view. [...] thepatient as necessary. us Aquiles Campbell DO [facility] [place] Final Result * Ultrasound - Office (08/01/2024 10:19 AM EDT) Anatomical Region Laterality Modality AMB Ultrasound us Not In System Ref Prov [facility] [place] Final R esult from Last 3 Months Insurance [facility]
--- OUTSIDE RECORDS SUMMARY | 2024-10-18 09:13 | XMS_ITS | Encounter Summary ---
Author Organization [facility] Address [address] [facility] [place] [address] Care Team Providers Care Manager Engagement Name Role Phone Unavailable Primary Care Provider Unavailabl e Encounter Details Date Type Department Care Team (Late st Contact Info) Description 07/25/2024 Abstract [facility] OB [address] [place] [address] Theodore Campbell, [address] Aisha Dela [place], [facility]11 Social History Tobacco Use Types Packs/Day [...] Start Date Job End Date Works at [employer] Not on file Not on file Not on file documented as of this encounter Plan of Treatment Upcoming Encounters Date Type Department Care Team (Late st Contact Info) Description 10/21/2024 2:00 PM EDT Routine [facility] OB [address] [place] [address] Theodore Campbell, [address] Aisha [place], [place] [id number] documented as of this encounter Visit Diagnoses Not on filedocumented in this encounter
--- OUTSIDE RECORDS SUMMARY | 2024-10-18 09:13 | XMS_ITS | Encounter Summary ---
Author Organization [facility] Address [address] [facility] [place] [address] Care Team Providers Care Analysis Internship Name Role Phone Unavailable Primary Care Provider Unavailabl e Encounter Details Date Type Department Care Team (Late st Contact Info) Description 02/29/2024 Orders Only [facility] [address] [place] [address] Priscila Joseph [place] [address] [place] [address] Social History Tobacco Use Types Packs/Day Years [...] Start Date Job End Date Works at [employer] Not on file Not on file Not on file documented as of this encounter Plan of Treatment Upcoming Encounters Date Type Department Care Team (Late st Contact Info) Description 10/21/2024 2:00 PM EDT Routine [facility] OB [address] [place] [address] Theodore Campbell DO [address] [place], [place] [address] documented as of this encounter Procedures Procedure [...]
--- OUTSIDE RECORDS SUMMARY | 2024-10-18 09:13 | XMS_ITS | Clinical Summary ---
Author Organization [facility] Address [address] [place] [address] Care Team Providers Care Wine Steward Name Role Phone Unavailable Primary Care Provider Unavailabl e Allergies Active Allergy Reactions Criticality Noted Date Comments Cefadroxil Hives 12/02/2022 Other Reaction(s): hives, Unknown Other Reaction(s): hives, rash Latex Itching 12/02/2022 Other Reaction(s): Itching Other Reaction(s): Hives Paroxetine 12/02/2022 Other Reaction(s): Unknown Medications Jisgomcv-Uii-Ax-FA ( 1 + IRON PO) Active valACYclovir [...] Date Diagnosed Date 31 weeks gestation of ([facility]) 2024 Third trimester ([facility]) 09/17/2024 Multigravida of advanced mat ernal age in third trimester ([facility]) 09/17/2024 Anovulation 12/02/2022 DUB (dysfunctional uterine bleeding) 12/02/2022 Menstrual disorder 12/02/2022 Missed menses 12/02/2022 Yeast infection 12/02/2022 Estimated Date of Delivery Comme nts Yes 11/17/2024 Based on last me nstrual period of 02/11/2024 Resolved Problems Problem Noted Date Diagnosed Date Resolved Date Bleeding in early ([facility]) 12/02/2022 12/02/2022 Encounters Date Type Department Care Team Description 10/16/20[address] [address] [place] [id number] Shanna Bailon MA 10/16/2024 Clinisync Result Encounter NOM[facility] External Department Unsolicited Aquiles Campbell DO 10/14/2024 2:30 PM EDT Routine [facility] [place] [address] [place] [address] Aquiles Campbell DO 35 weeks gestation of ([facility]); Third trimester ([facility]); Multigravida of advanced maternal age in third trimester ([facility]); Excessive growth affecting management of , antepartum, single or unspecified fetus ([facility]); Low iron; HSV infection 10/14/2024 2:00 PM EDT Ancillary Procedure [facility] [place] [address] [place] [phone] Multigravida of advanced maternal age in third trimester ([facility]); H/O miscarriage, currently ([facility]) 10/14/20[address] [address] [place] [address] Aquiles Campbell, DO 10/14/2024 Travel 10/09/2024 Clinisync Result Encounter [facility]OM[facility] External Department Unsolicited Aquiles Campbell, DO 10/02/2024 Clinisync Result Encounter NOMS External Department Unsolicited Aquiles Campbell, DO 09/30/2024 3:30 PM EDT Routine [facility] [address] [place] [address] Flower Joyce PA Third trimester ([facility]); 33 weeks gestation of ([facility]) 09/30/2024 Bamboo flowsheet [facility] [address] [place] [address] Flower Joyce PA 09/26/2024 Travel 09/25/2024 Clinisync Result Encounter [facility] External Department Unsolicited Aquiles Campbell, DO 09/23/2024 Abstract [facility] [address] [place] [address] Aquiles Campbell, DO 09/17/2024 10:20 AM EDT Routine [facility] [address] [place] [address] Aquiles Campbell, DO 31 weeks gestation of ([facility]); Third trimester ([facility]); Multigravida of advanced maternal age in third trimester ([facility]); Excessive growth affecting management of , antepartum, single or unspecified fetus ([facility]) 09/17/2024 9:30 AM EDT Ancillary Procedure [facility] [address] [place] [address] Size of fetus inconsistent with dates in second trimester ([facility]) 09/16/2024 Travel 09/14/2024 Travel 08/28/[address] [address] [place] [address] Vicki Aguirre LPN 08/27/2024 8:50 AM EDT Routine [facility] [address] [place] [address] Flower Joyce PA Size of fetus inconsistent with dates in second trimester ([facility]) (Primary Dx); Third trimester ([facility]); 28 weeks gestation of ([facility]) 08/27/2024 Clinisync Result Encounter [facility] External Department Unsolicited Flower Joyce PA 08/27/2024 Bamboo flowsheet [facility] [address] [place] [address] Flower Joyce PA 08/26/2024 Travel 08/20/2024 Abstract [facility] [address] [place] [address] Shanna Bailon MA 08/01/2024 9:10 AM EDT Routine [facility] [address] [place] [address] Aquiles Campbell DO Second trimester ([facility]); 24 weeks gestation of ([facility]); Multigravida of advanced maternal age in second trimester ([facility]) 08/01/2024 8:30 AM EDT Ancillary Procedure [facility] [address] [place] [address] Encounter for follow-up ultrasound of anatomy ([facility]) 08/01/[address] [facility] [address] [place] [address] Daniela Candelaria LPN 07/31/2024 Travel 07/25/2024 Abstract [facility] [address] [place] [address] Aquiles Campbell DO 07/25/[address] [facility] [address] [place] [address] Aquiles Campbell DO from Last 3 Months [...] Start Date Job End Date Works at [employer] Not on file Not on file Not [...] PM EDT Routine [facility] B[facility] OB [address] [place] [address] Aquiles Campbell, DO [address] [place] [phone] Procedures Procedure Name Priority Date/Time Associated Diagnosis Comments US OB BPP W NON-STRESS 10/16/2024 7:15 AM EDT POCT URINALYSIS DIPSTICK Routine 10/14/2024 3:18 PM EDT 35 weeks gestation of ([facility]) Third trimester ([facility]) US OB FOLLOW UP TRANSABDOMINAL APPROACH Routine 10/14/2024 2:25 PM EDT Multigravida of advanced maternal age in third trimester ([facility]) H/O miscarriage, currently ([facility]) US OB BPP W NON-STRESS 10/09/2024 7:52 AM EDT US OB BPP W NON-STRESS 10/02/2024 8:07 AM EDT POCT URINALYSIS DIPSTICK Routine 09/30/2024 3:51 PM EDT Third trimester ([facility]) US OB BPP W NON-STRESS 09/25/2024 7:58 AM EDT POCT URINALYSIS DIPSTICK Routine 09/17/2024 10:37 AM EDT 31 weeks gestation of ([facility]) Third trimester ([facility]) Multigravida of advanced maternal age in third trimester ([facility]) US OB FOLLOW UP TRANSABDOMINAL APPROACH Routine 09/17/2024 9:58 AM EDT Size of fetus inconsistent with dates in second trimester ([facility]) ALL CBC WITH AUTO DIFF Routine 10:10 AM EDT MLR HEMOGLOBIN A1C Routine 08/27/2024 10 :10 AM EDT POCT URINALYSIS DIPSTICK Routine 08/27/2024 9:26 AM EDT Third trimester ([facility]) 28 weeks gestation of ([facility]) US OB LIMITED 1+ FETUSES Routine 08/01/2024 9:02 AM EDT Encounter for follow-up ultrasound of anatomy ([facility]) from Last 3 Months Results * US OB BPP W NON-STRESS (10/16/2024 7:15 AM EDT) Only the most recent of4 resultswithin the time period is included. Anatomical Region Laterality Modality Other 10/16/2024 7:15 AM EDT Narrative 10/16/2024 7:17 [place] [address] Ultrasound Report Signed Patient: ED SILVA MR#: [id number] : 1990 Acct:[id number] Age/Sex: 33 / F ADM Date: 10/15/24 Loc: US Attending Dr: Aquiles Campbell D.O. Ordering Physician: Aquiles Campbell D.O. Date of Service: 10/15/24 Procedure(s): US OB BPP w non-stress Accession Number(s): [id number] cc: Aquiles Campbell D.O.; Physician,Non-Staff M.D. The [place] [address] Patient Name: ED SILVA MRN: [facility]:[id number] date: 1990 Sex: F Assigned Patient Location: Current Patient Location: Accession/Order Number: [id number] Exam Date: 10/16/2024 07:14 Report Date: 10/16/2024 [...] Torre M.D. 10/16/2024 7:15 AM Dictation Location: [place] [address] Electronically authenticated by: [id number] Y Date: 10/16/2024 07:15 Dictated By: Alexus De La Torre M.D. Signed By: 10/16/2417 DD/ 4 TD/TT: Glass Blowing Instructor: Procedure Note Radiology, Radiologist, MD - 10/16/2024 [place] [address] Ultrasound Report Signed Patient: ED SILVAMR#: [id number] : 1990Acct:[id number] Age/Sex: 33 / FADM Date: 10/15/24 Loc: US Attending Dr: Aquiles Campbell D.O. Ordering Physician: Aquiles Campbell D.O. Date of Service: 10/15/24 Procedure(s): US OB BPP w non-stress Accession Number(s): [id number] cc: Aquiles Campbell D.O.; Physician,Non-Staff [facility] The [address] [address] Patient Name: ED SILVA MRN: [id number] date: 1990 Sex: F Assigned Patient Location: Current Patient Location: Accession/Order Number: [id number] Exam Date: 10/16/2024 07:14 Report Date: 10/16/2024 [...] Torre M.D. 10/16/2024 7:15 AM Dictation Location: [place] [address] Electronically authenticated by: [id number] Y Date: 7:15 Dictated By: Alexus De La Torre M.D. Signed By:10/16/24716 DD/ 4 TD/TT: Glass Blowing Instructor: Aquiles Adrian DO [facility] Final Result * POCT urinalysis dipstick manually resulted (10/14/2024 3:18 PM EDT) Only the most recent of4 resultswithin the time period is included. Color, UA Yellow Clarity, UA Cloudy Glucose, UA Negative Negative - 1999(110) ++++ [...] Urine 10/14/2024 3:18 PM EDT us Aquiles Campbell DO POINT OF CARE TEST ENTER/EDIT [...] SIGNED BY: Campos Vital MD us Aquiles Campbell DO IMG OB US PROCEDURES Final Resul t * MLR HEMOGLOBIN A1C (08/27/2024 10:10 AM EDT) Pathologist [facility] GLYCOHEMOGLOBIN A1C 5.6 4.5 - 6.2 % [facility] Comment: ADA RECOMMENDED LIMIT 4.0 - 6.0 ADA THERAPEUTIC TARGET < 7.0 ACTION SUGGESTED > 7.0 ESTIMATED AVERAGE GLUCOSE 114 mg/dL [facility] 08/27/2024 10:1 0 AM EDT 08/27/2024 10:21 AM EDT Narrative [facility] - 08/27/2024 10:36 AM EDT us Flower DE LA PAZ [facility] Final Result [facility] * (ABNORMAL) ALL CBC WITH AUTO DIFF (08/27/2024 10:10 AM EDT) [facility] WBC 10.0 4.0 - 11.0 10 3/uL [...] - 08/27/2024 10:44 AM EDT us Flower VITALE Final Result [facility] * US OB limited 1+ fetuses [...] II, MD, PHD at 01-Aug-2024 11:20:36 PM [facility] Procedure Note Meghann Knight MD - [...] signed by MEGHANN KNIGHT II, MD, PHD [id number] 11:20:36 PM [facility] us Aquiles Campbell DO IMG OB US PROCEDURES Final Resul t from Last 3 Months Insurance BS
== END 2024-10-18 14:08 | disposition home or self-care (01) ==
PROVIDERS: Visit Provider Obstetrics & Gynecology
DX: O09.529 Supervision of elderly multigravida, unspecified trimester (principal)
CPT/HCPCS: 59025

== ENCOUNTER 2024-10-21 22:13 | Outpatient (REF) | payer BC, SELFPAY ==
--- OUTSIDE RECORDS SUMMARY | 2024-10-21 22:18 | XMS_ITS | CCD ---
Author Organization [facility] Care Team Providers Care Parts And Service Manager Name Role Phone ADRIAN ., DR KWAN [...] Unavailable SHANNA, FLOWER Attending Unavailable SHANNA, FLOWER Attending Unavailable SHANNA, FLOWER Referring Unavailable ADRIAN, AQUILES Attending Unavailable SHANNA, FLOWER Attending Unavailable ADRIAN, AQUILES Attending Unavailable Allergies Allergy Classification Reported Allergen(s) Allergy Type Date of Onset Reaction(s) Facility (1 source) Cefadroxil Drug Allergy [facility] Repository (1 source) natural latex rubber Drug allergy (disorder) [facility] Repository (20 sources) Cefadroxil; Translations: [CEFADROXIL] Drug Allergy 3 Hives [facility] (20 sources) Latex; Translations: [LATEX] Allergy to substance 3 Itching [facility] (20 sources) PARoxetine; Translations: [PAROXETINE] Drug Allergy 3 [facility] (1 source) Latex Propensity to adverse reactions to drug 5 [facility] Medications Current Medications Medication Drug Class(es) [...] 391 mg oral capsule (3 sources) Start: 08-28-2024 End: 09-27-2024 take 1 capsule by mouth once daily iron polysaccharides (ProFe) 391.3 (180 Fe) MG capsule Indications: Low iron Take 1 capsule (391.3 mg) by mouth Daily 30 capsule 6 08/28/2024 09/27/2024 Active Axjfjybt-Uvf-Vz-FA ( 1 + IRON PO) (20 sources) Bsazqowk-Qvu-Cf-FA ( 1 + IRON PO) Active vit,jorge [...] Take 30 mg by mouth Daily Active valACYclovir 500 mg oral tablet (4 sources) Herpesvirus Nucleoside Analog DNA Polymerase Inhibitor, Herpes Simplex Virus Nucleoside Analog DNA Polymerase Inhibitor, Herpes Zoster Virus Nucleoside Analog DNA Polymerase Inhibitor Start: 10-14-2024 End: 11-13-2024 take 1 tablet by mouth once daily valACYclovir (Valtrex) 500 MG tablet Indications: HSV infection Take 1 tablet (500 mg) by mouth Daily 30 tablet 5 10/14/2024 11/13/2024 Active Completed/Discontinued Medications Medication Drug Class(es) Dates Sig (Normalized) Sig (Original) Blood Glucose Monitoring Suppl (D-Care Glucometer) w/Device kit (16 sources) Start: 07-25-2024 End: 10-14-2024 Blood Glucose Monitoring Suppl (D-Care Glucometer) w/Device kit Indications: Gestational diabetes mellitus (GDM), antepartum, gestational diabetes method of control unspecified (HHS-HCC) , Elevated glucose tolerance test 1 kit Daily Use four times daily to check FSBS. In the morning prior to breakfast & 1 hour after each meal for a total of 4times daily. 1 kit 07/25/2024 10/14/2024 Discontinued Start: 07-25-2024 End: 07-25-2025 Blood Glucose Monitoring [...] 4times daily. 1 kit 07/25/2024 07/25/2025 Active isopropyl alcohol 0.7 ml/ml medicated pad (16 sources) Start: 07-25-2024 End: 10-14-2024 Alcohol Swabs (Alcohol Prep Pad) 70 % pads Indications: Gestational diabetes mellitus (GDM), antepartum, gestational diabetes method of control unspecified (HHS-HCC) , Elevated glucose tolerance test Apply 1 Pad topically Daily Use four times daily to check FSBS. 150 each 3 07/25/2024 10/14/2024 Discontinued Vit-Fe Qmkgamn-PT-B CAI ( VITAMIN/MIN +DHA PO) (20 sources) Start: 06-09-2023 End: 06-03-2024 Vit-Fe Rhggeyi-TY-O CAI ( VITAMIN/MIN +DHA PO) 06/09/2023 06/03/2024 Discontinued (Other) Start: 06-09-2023 Vit-F e Cxdmlmo-CD-KCF ( VITAMIN/MIN +DHA PO) 06/09/2023 Active Progesterone [...] Translations: [Disorder of menstruation] Onset: 05-13-2022 Chronic Nutritional deficiencies (2 sources) Serum iron low; Translations: [Iron deficiency] 10-14-2024 Episodic Other complications of (20 sources) Multigravida of advanced maternal age; Translations: [Supervision of elderly multigravida, unspecified trimester] Onset: 09-17-2024 06-03-2024 Episodic Other complications of (2 sources) size does not accord with dates; Translations: [Uterine size-date discrepancy, second trimester] 08-27-2024 Episodic Other complications of (4 sources) Excessive growth affecting management of mother; [...] of ] 08-27-2024 Episodic Residual codes; unclassified (14 sources) Gestation period, 31 weeks; Translations: [31 weeks gestation of ] Onset: 09-17-2024 09-17-2024 Episodic Residual codes; unclassified (2 sources) Gestation period, 33 weeks; Translations: [33 weeks gestation of ] 09-30-2024 Episodic Residual codes; unclassified (2 sources) Gestation period, 35 weeks; Translations: [35 weeks gestation of ] 10-14-2024 Episodic Viral infection (2 sources) Herpes simplex; Translations: [Herpesviral infection, unspecified] 10-14-2024 Episodic Past or Other Problems Problem Classification [...] Value Interpretation Reference Range Facility US OB BPP W NON-STRESS on 10-16-2024 [place] [address] Ultrasound Report Signed Patient: ED MURPHY MR#: [id number] : 1990 Acct:[id number] Age/Sex: 33 / F ADM Date: 10/15/24 Loc: US Attending Dr: Aquiles Campbell D.O. Ordering Physician: Aquiles Campbell D.O. Date of Service: 10/15/24 Procedure(s): US OB BPP w non-stress Accession Number(s): [id number] cc: Aquiles Campbell D.O.; Physician,Non-Staff [facility] [address] [address] Patient Name: ED MURPHY MRN: [facility]:[id number] date: 1990 Sex: F Assigned Patient Location: US Current Patient Location: Accession/Order Number: [id number] Exam Date: 10/16/2024 07:14 Report Date: 10/16/2024 [...] Torre M.D. 10/16/2024 7:15 AM Dictation Location: [place] [address] Electronically authenticated by: [id number] Y Date: 10/16/2024 07:15 Dictated By: Alexus De La Torre M.D. Signed By: 10/16/24716 DD/ 4 TD/TT: Applied Technologist: [facility] Radiology, Radiologist, MD - 10/16/2024 [place] [address] Ultrasound Report Signed Patient: ED MURPHY MR#: [id number] : 1990 Acct:[id number] Age/Sex: 33 / F ADM Date: 10/15/24 Loc: US Attending Dr: Aquiles Campbell D.O. Ordering Physician: Aquiles Campbell D.O. Date of Service: 10/15/24 Procedure(s): US OB BPP w non-stress Accession Number(s): [id number] cc: Aquiles Campbell D.O.; Physician,Non-Staff [facility] The [place] [id number] Patient Name: ED MURPHY MRN: [facility]:[id number] date: 1990 Sex: F Assigned Patient Location: Current Patient Location: Accession/Order Number: [id number] Exam Date: 10/16/2024 07:14 Report Date: 10/16/2024 [...] Torre M.D. 10/16/2024 7:15 AM Dictation Location: [place] Electronically authenticated by: [id number] Y Date: 10/16/2024 07:15 Dictated By: Alexus De La Torre M.D. Signed By: 10/16/24716 DD/ 4 TD/TT: Applied Technologist: [facility] Radiology Study observation (narrative) [facility] OB BPP W NON-STRESS Ordered By: Radiologist Radiology on 10-16-2024 [facility] Work Phone: OB FOLLOW UP TRANSABDOMIN AL APPROACHon 10-14-2024 OB FOLLOW UP TRANSABDOMINAL APPROACH A single, live intrauterine is present with [...] BY: ELECTRONICALLY SIGNED BY: Campos Vital MD Normal Not Available Comment on above: Order Comment: US OB SCAN FOR GROWTH Estimated Date of Delivery: 11/17/24 Gestational Age as of 10/14/2024: 35w1d Urinalysis macro (dipstick) panel (U)on 10-14-2024 Bilirubin, UA Negative Negative - 4(70) +++ mg/dL [facility] Blood, UA Negative Negative - 50 Alex/mcL [facility] Clarity, UA Cloudy [facility] Color, UA Yellow [facility] Glucose, UA Negative Negative - 1999(110) ++++ mg/dL [facility] Interpretation and review of laboratory results Normal [facility] Ketones, UA Negative Negative - 160(16) ++++ mg/dL [facility] Leukocytes, UA Negative Negative - 500+++ Jodi/mcL [facility] Nitrite, UA Negative Negative - Positive [facility] pH, UA 6.5 5 - 9 [facility] Protein, UA Negative Negative - 1999(20) ++++ mg/dL [facility] Spec Grav, UA 1.01 1 - 1.03 [facility] Urobilinogen, UA 0.2 0.2 - 12 mg/dL [facility] US OB BPP W NON-STRESS on 10-09-2024 [place] [address] Ultrasound Report Signed Patient: ED MURPHY MR#: [id number] : 1990 Acct:[id number] Age/Sex: 33 / F ADM Date: 10/08/24 Loc: US Attending Dr: Aquiles Campbell D.O. Ordering Physician: Aquiles Campbell D.O. Date of Service: 10/08/24 Procedure(s): US OB BPP w non-stress Accession Number(s): [id number] cc: Aquiles Campbell D.O.; Physician,Non-Staff M.DAp The [address] [address] Patient Name: ED MURPHY MRN: [facility]:[id number] date: 1990 Sex: F Assigned Patient Location: US Current Patient Location: Accession/Order Number: [id number] Exam Date: 10/09/2024 07:51 Report Date: 10/09/2024 [...] Torre M.D. 10/09/2024 7:52 AM Dictation Location: [place] [address] Electronically authenticated by: [id number] Y Date: 10/09/2024 07:52 Dictated By: Alexus De La Torre M.D. Signed By: 10/09/24 0945 DD/ 0752 TD/TT: Applied Technologist: [facility] Radiology, Radiologist, MD - 10/09/2024 [place] [address] Ultrasound Report Signed Patient: ED MURPHY MR#: [id number] : 1990 Acct:[id number] Age/Sex: 33 / F ADM Date: 10/08/24 Loc: US Attending Dr: Aquiles Campbell D.O. Ordering Physician: Aquiles Campbell D.O. Date of Service: 10/08/24 Procedure(s): US OB BPP w non-stress Accession Number(s): [id number] cc: Aquiles Campbell D.O.; Physician,Non-Staff [place] [id number] Patient Name: ED MURPHY MRN: [facility]:[id number] date: 1990 Sex: F Assigned Patient Location: Current Patient Location: Accession/Order Number: [id number] Exam Date: 10/09/2024 07:51 Report Date: 10/09/2024 [...] Torre M.D. 10/09/2024 7:52 AM Dictation Location: [place] [address] Electronically authenticated by: [id number] Y Date: 10/09/2024 07:52 Dictated By: Alexus De La Torre M.D. Signed By: 10/09/24 0945 DD/ 0752 TD/TT: Applied Technologist: [facility] Radiology Study observation (narrative) [facility] US OB BPP W NON-STRESS Ordered By: Radiologist Radiology on 10-09-2024 [facility] [employer] Work Phone: US OB BPP W NON-STRESS on 10-02-[address] [address] Ultrasound Report Signed Patient: ED MURPHY MR#: [id number] : 1990 Acct:[id number] Age/Sex: 33 / F ADM Date: 10/01/24 Loc: US Attending Dr: Aquiles Campbell D.O. Ordering Physician: Aquiles Campbell D.O. Date of Service: 10/01/24 Procedure(s): US OB BPP w non-stress Accession Number(s): [id number] cc: Aquiles Campbell D.O.; Physician,Non-Staff [place] [address] [address] Patient Name: ED MURPHY MRN: [facility]:[id number] date: 1990 Sex: F Assigned Patient Location: [facility] Current Patient Location: Accession/Order Number: [id number] Exam Date: 10/02/2024 08:04 Report Date: 10/02/2024 [...] Torre M.D. 10/02/2024 8:07 AM Dictation Location: [place] [address] Electronically authenticated by: [id number] Y Date: 10/02/2024 08:07 Dictated By: Alexus De La Torre M.D. Signed By: 10/02/24 0810 DD/ 6 TD/TT: Applied Technologist: [facility] Radiology, Radiologist, MD - 10/02/2024 [place] [address] Ultrasound Report Signed Patient: ED MURPHY MR#: [id number] : 1990 Acct:[id number] Age/Sex: 33 / F ADM Date: 10/01/24 Loc: US Attending Dr: Aquiles Campbell D.O. Ordering Physician: Aquiles Campbell D.O. Date of Service: 10/01/24 Procedure(s): US OB BPP w non-stress Accession Number(s): [id number] cc: Aquiles Campbell D.O.; Physician,Non-Staff [facility] The [address] [address] Patient Name: ED MURPHY MRN: [facility]:[id number] date: 1990 Sex: F Assigned Patient Location: [facility] Current Patient Location: Accession/Order Number: [id number] Exam Date: 10/02/2024 08:04 Report Date: 10/02/2024 [...] Torre M.D. 10/02/2024 8:07 AM Dictation Location: [place] [address] Electronically authenticated by: [id number] Y Date: 10/02/2024 08:07 Dictated By: Alexus De La Torre M.D. Signed By: 10/02/2410 DD/ 6 TD/TT: Applied Technologist: [facility] Radiology Study observation (narrative) [facility] US OB BPP W NON-STRESS Ordered By: Radiologist Radiology on 10-02-2024 [facility] Work Phone: Urinalysis macro (dipstick) panel (U)on 09-30-2024 Bilirubin, UA Negative Negative - 4(70) +++ mg/dL [facility] Blood, UA Negative Negative - 50 Alex/mcL [facility] Clarity, UA Clear [facility] Color, UA Yellow [facility] Glucose, UA Negative Negative - 2000(110) ++++ mg/dL [facility] Interpretation and review of laboratory results Abnormal [facility] Ketones, UA Positive Negative - 160(16) ++++ mg/dL [facility] Comment on above: 15mg/dL Leukocytes, UA Negative Negative - 500+++ Jodi/mcL [facility] Nitrite, UA Negative Negative - Positive [facility] pH, UA 6 5 - 9 [facility] Protein, UA Negative Negative - 2000(20) ++++ mg/dL [facility] Spec Grav, UA 1.02 1 - 1.03 [facility] Urobilinogen, UA 0.2 0.2 - 12 mg/dL [facility] US OB BPP W NON-STRESS on 09-25-[address] [address] Ultrasound Report Signed Patient: ED MURPHY MR#: [id number] : 1990 Acct:[id number] Age/Sex: 33 / F ADM Date: 09/24/24 Loc: US Attending Dr: Aquiles Campbell D.O. Ordering Physician: Aquiles Campbell D.O. Date of Service: 09/24/24 Procedure(s): US OB BPP w non-stress Accession Number(s): [id number] cc: Aquiles Campbell D.O.; Physician,Non-Staff [facility] [place] [id number] Patient Name: ED MURPHY MRN: [facility]:[id number] date: 1990 Sex: F Assigned Patient Location: US Current Patient Location: Accession/Order Number: [id number] Exam Date: 09/25/2024 07:56 Report Date: 09/25/2024 [...] Swartz M.D. 09/25/2024 7:58 AM Dictation Location: [place] [address] Electronically authenticated by: [id number] Y Date: 09/25/2024 07:58 Dictated By: Manuel Swartz D.O. Signed By: 09/25/24 0800 DD/ 0758 TD/TT: Applied Technologist: [facility] Radiology, Radiologist, MD - 09/25/2024 The [place] [id number] Ultrasound Report Signed Patient: ED MURPHY MR#: [id number] : 1990 Acct:[id number] Age/Sex: 33 / F ADM Date: 09/24/24 Loc: US Attending Dr: Aquiles Campbell D.O. Ordering Physician: Aquiles Campbell D.O. Date of Service: 09/24/24 Procedure(s): US OB BPP w non-stress Accession Number(s): [id number] cc: Aquiles Campbell D.O.; Physician,Non-Staff M.Dario [place] [address] Patient Name: ED MURPHY MRN: [facility]:[id number] date: 1990 Sex: F Assigned Patient Location: US Current Patient Location: Accession/Order Number: [id number] Exam Date: 09/25/2024 07:56 Report Date: 09/25/2024 [...] Swartz M.D. 09/25/2024 7:58 AM Dictation Location: [place] [address] Electronically authenticated by: [id number] Y Date: 09/25/2024 07:58 Dictated By: Manuel Swartz D.O. Signed By: 09/25/24 0800 DD/ 0758 TD/TT: Applied Technologist: [facility] Radiology Study observation (narrative) [facility] US OB BPP W NON-STRESS Ordered By: Radiologist Radiology on 09-25-2024 [facility] [employer] Work Phone: US OB FOLLOW UP TRANSABDOMIN [...] II, MD, PHD at 18-Sep-2024 08:23:43 AM [facility] Normal Not Available Comment on above: Order Comment: US OB SCAN FOR GROWTH Estimated Date of Delivery: 11/17/24 Gestational Age as of 08/27/2024: 28w2d Urinalysis macro (dipstick) panel (U)on 09-17-2024 Bilirubin, UA Negative Negative - 4(70) +++ mg/dL [facility] Healthcare Blood, UA Negative Negative - 50 Alex/mcL [facility] Clarity, UA Clear [facility] Color, UA Yellow [facility] Glucose, UA Negative Negative - 1999(110) ++++ mg/dL [facility] Interpretation and review of laboratory results Normal [facility] Ketones, UA Negative Negative - 160(16) ++++ mg/dL [facility] Leukocytes, UA Negative Negative - 500+++ Jodi/mcL [facility] Nitrite, UA Negative Negative - Positive [facility] pH, UA 7 5 - 9 [facility] Protein, UA Negative Negative - 1999(20) ++++ mg/dL [facility] Spec Grav, UA 1.01 1 - 1.03 [facility] Urobilinogen, UA 0.2 0.2 - 12 mg/dL [facility] MLR HEMOGLOBIN A1Con 08-27- 025 Glucose [Mass/Vol] 114 mg/dL [facility] HbA1c (Bld) [Mass fraction] 5.6 % 4.5 - 6.2 % [facility] Comment on above: ADA RECOMMENDED LIMI T 4.0 - 6.0 ADA THERAPEUTIC TARGET < 7.0 ACTION SUGGESTED > 7.0 [facility] Urinalysis macro (dipstick) panel (U)Ordered By: Daniel Pereira on 08-27-2024 Bilirubin, UA Negative Negative - 4(70) +++ mg/dL [facility] Work Phone: Blood, UA Negative Negative - 50 Alex/mcL [facility] Work Phone: Clarity, UA Clear [facility] Work Phone: Color, UA Yellow [facility] Work Phone: Glucose, UA Negative Negative - 1999(110) ++++ mg/dL [facility] Work Phone: Interpretation and review of laboratory results Normal [facility] Work Phone: Ketones, UA Negative Negative - 160(16) ++++ mg/dL [facility] Work Phone: Leukocytes, UA Negative Negative - 500+++ Jodi/mcL [facility] Work Phone: Nitrite, UA Negative Negative - Positive [facility] Work Phone: pH, UA 6.5 5 - 9 [facility] Work Phone: Protein, UA Negative Negative - 2000(20) ++++ mg/dL [facility] Work Phone: Spec Grav, UA 1.015 1 - 1.03 [facility] Work Phone: Urobilinogen, UA 0.2 0.2 - 12 mg/dL [facility] Work Phone: [facility] Work Phone: US OB LIMITED 1+ FETUSESon [...] II, MD, PHD at 01-Aug-2024 11:20:36 PM [facility] Normal Not Available Comment on above: Order Comment: US OB INCOMPLETE ANATOMY Estimated Date of Delivery: 11/17/24 Gestational Age as of 07/08/2024: 21w1d RECURRENT VAGINITIS (HTRX)on 06-04-2024 ATOPOBIUM VAGINAE 0 [facility] ATOPOBIUM VAGINAE Not detected [facility] BVAB 2,3 (BACTERIAL VAGINOSIS ASSOCIATED BACTERIA 2, 3); MOBILUNCUS SPP 0 [facility] BVAB 2,3 (BACTERIAL VAGINOSIS ASSOCIATED BACTERIA 2, 3); MOBILUNCUS SPP Not detected [facility] NICA ALBICANS, PARAPSILOSIS, TROPICALIS 0 [facility] NICA ALBICANS, PARAPSILOSIS, TROPICALIS Not detected [facility] NICA GLABRATA 0 [facility] NICA GLABRATA Not detected [facility] NICA KRUSEI 0 [facility] NICA KRUSEI Not detected [facility] CHLAMYDIA TRACHOMATIS 0 [facility] CHLAMYDIA TRACHOMATIS Not detected [facility] GARDNERELLA VAGINALIS 29.376 Abnormal [facility] GARDNERELLA VAGINALIS Detected Abnormal [facility] Interpretation and review of laboratory results Abnormal [facility] MEGASPHAERA (TYPES 1, 2) 0 [facility] MEGASPHAERA (TYPES 1, 2) Not detected [facility] MYCOPLASMA GENITALIUM 0 [facility] MYCOPLASMA GENITALIUM Not detected [facility] NEISSERIA GONORRHOEAE 0 [facility] NEISSERIA GONORRHOEAE Not detected [facility] TRICHOMONAS VAGINALIS 0 [facility] TRICHOMONAS VAGINALIS Not detected [facility] OB 14+ WEEKS ANATOMY SCAN on 06-03-2024 [...] II, MD, PHD at 02-Jul-2024 09:56:12 AM [facility] Normal Not Available Comment on above: Order Comment: US OB ANATOMY SINGLE W US OB CERVICAL LENGTH Estimated Date of Delivery: 11/17/24 Gestational Age as of 06/03/2024: 16w1d Urinalysis macro (dipstick) panel (U)on 06-03-2024 Bilirubin, UA Negative Negative - 4(70) +++ mg/dL [facility] Blood, UA Positive Negative - 50 Alex/mcL [facility] Comment on above: trace-intact Clarity, UA Clear [facility] Color, UA Yellow [facility] Glucose, UA Negative Negative - 1999(110) ++++ mg/dL [facility] Interpretation and review of laboratory results Abnormal [facility] Ketones, UA Positive Negative - 160(16) ++++ mg/dL [facility] Comment on above: 15mg/dL Leukocytes, UA Negative Negative - 500+++ Jodi/mcL [facility] Nitrite, UA Negative Negative - Positive [facility] pH, UA 5.5 5 - 9 [facility] Protein, UA Negative Negative - 1999(20) ++++ mg/dL [facility] Spec Grav, UA 1.02 1 - 1.03 [facility] Urobilinogen, UA 0.2 0.2 - 12 mg/dL [facility] Urinalysis macro (dipstick) panel (U)on 05-02-2024 Bilirubin, UA Trace Negative - 4(70) +++ mg/dL [facility] Blood, UA Negative Negative - 50 Alex/mcL [facility] Clarity, UA Clear [facility] Color, UA Yellow [facility] Glucose, UA Negative Negative - 1999(110) ++++ mg/dL [facility] Interpretation and review of laboratory results Abnormal [facility] Ketones, UA Positive Negative - 160(16) ++++ mg/dL [facility] Leukocytes, UA Negative Negative - 500+++ Jodi/mcL [facility] Nitrite, UA Negative Negative - Positive [facility] pH, UA 6 5 - 9 [facility] Protein, UA Positive Negative - 1999(20) ++++ mg/dL [facility] Spec Grav, UA 1.03 1 - 1.03 [facility] Urobilinogen, UA 0.2 0.2 - 12 mg/dL [facility] ALL CBC WITH AUTO DIFFon BASOPHILS ABSOLUTE AUTO 0 [facility] Basophils/100 WBC (Bld) 0.4 % 0.2 - 2.0 % [facility] Eosinophils/100 WBC (Bld) 0.6 % Low 0.9 - 7.0 % [facility] Erythrocyte distribution width (RBC) [Ratio] 14.1 % 11.0 - 15.0 % [facility] Hematocrit (Bld) [Volume fraction] 40.6 % 36.0 - 48.0 % [facility] Hemoglobin (Bld) [Mass/Vol] 13.1 g/dL 12.0 - 16.0 g/dL [facility] IMMATURE GRANULOCYTES ABS AUTO 0.03 [facility] Immature granulocytes/100 WBC (Bld) 0.3 % 0.0 - 0.5 % [facility] Interpretation and review of laboratory results Abnormal [facility] LYMPHOCYTES ABSOLUTE AUTO 1.9 [facility] Lymphocytes/100 WBC (Bld) 19.1 % Low 20.5 - 60.0 % [facility] MCH (RBC) [Entitic mass] 27.9 pg 26.7 - 34.0 pg [facility] MCHC (RBC) [Mass/Vol] 32.3 g/dL 29.9 - 35.2 g/dL [facility] MCV (RBC) [Entitic vol] 86.6 fL 81.0 - 99.0 fL [facility] MONOCYTES ABSOLUTE AUTO 0.5 [facility] Monocytes/100 WBC (Bld) 5.4 % 1.7 - 12.0 % [facility] NEUTROPHILS ABSOLUTE AUTO 7.4 High [facility] Neutrophils/100 WBC (Bld) 74.2 % 43.0 - 75.0 % [facility] Platelet mean volume (Bld) [Entitic vol] 9.3 fL Low 9.5 - 13.5 fL [facility] TBH EO # 0.1 [facility] PLT 380 [facility] RBC 4.69 [facility] WBC 9.9 [facility] US OB TRANSVAGINALon 025 OB TRANSVAGINAL [...] x 3.6 cm (8 weeks, 0 days). [place] rump length is 1.8 cm (8 weeks, [...] (U) No Growth 2 Days PERFORMED BY: [place] [address] PATHOLOGIST DIRECTOR FUNDS DEVELOPMENT TOSHA PÉREZ M.D. Normal [facility] Comment on above: Performed By: #### C UU #### [address] [facility] PREG QUANT HCGon 03-23- 024 HCG QUANTITATIVE 7110 mIU/mL [facility] Comment on above: 5-50 0.2-1 WEEK 50-500 1-2 WEEKS 100-5,000 2-3 WEEKS 500-10,000 3-4 WEEKS 1,000-50,000 4-5 WEEKS 10,000-100,000 5-6 WEEKS 15,000-200,000 6-8 WEEKS 10,000-100,000 2-3 MONTHS [facility]H PREG QUANT HCGon 03-22- 024 HCG QUANTITATIVE 5107 mIU/mL [facility] Comment on above: 5-50 0.2-1 WEEK 50-500 1-2 WEEKS 100-5,000 2-3 WEEKS 500-10,000 3-4 WEEKS 1,000-50,000 4-5 WEEKS 10,000-100,000 5-6 WEEKS 15,000-200,000 6-8 WEEKS 10,000-100,000 2-3 MONTHS [facility] PREG QUANT HCGon 024 HCG QUANTITATIVE 2902 mIU/mL [facility] Comment on above: 5-50 0.2-1 WEEK 50-500 1-2 WEEKS 100-5,000 2-3 WEEKS 500-10,000 3-4 WEEKS 1,000-50,000 4-5 WEEKS 10,000-100,000 5-6 WEEKS 15,000-200,000 6-8 WEEKS 10,000-100,000 2-3 MONTHS [facility] PREG QUANT HCGon 024 HCG QUANTITATIVE 1345 mIU/mL [facility] Comment on above: 5-50 0.2-1 WEEK 50-500 1-2 WEEKS 100-5,000 2-3 WEEKS 500-10,000 3-4 WEEKS 1,000-50,000 4-5 WEEKS 10,000-100,000 5-6 WEEKS 15,000-200,000 6-8 WEEKS 10,000-100,000 2-3 MONTHS [facility] PREG QUANT HCGon 024 HCG QUANTITATIVE 420 mIU/mL [facility] Comment on above: 5-50 0.2-1 WEEK 50-500 1-2 WEEKS 100-5,000 2-3 WEEKS 500-10,000 3-4 WEEKS 1,000-50,000 4-5 WEEKS 10,000-100,000 5-6 WEEKS 15,000-200,000 6-8 WEEKS 10,000-100,000 2-3 MONTHS [facility] PREG QUANT HCGon 024 HCG QUANTITATIVE 184 mIU/mL [facility] Comment on above: 5-50 0.2-1 WEEK 50-500 1-2 WEEKS 100-5,000 2-3 WEEKS 500-10,000 3-4 WEEKS 1,000-50,000 4-5 WEEKS 10,000-100,000 5-6 WEEKS 15,000-200,000 6-8 WEEKS 10,000-100,000 2-3 MONTHS [facility]H PREG QUANT HCGon 03-11- 024 HCG QUANTITATIVE 59 mIU/mL [facility] Comment on above: 5-50 0.2-1 WEEK 50-500 1-2 WEEKS 100-5,000 2-3 WEEKS 500-10,000 3-4 WEEKS 1,000-50,000 4-5 WEEKS 10,000-100,000 5-6 WEEKS 15,000-200,000 6-8 WEEKS 10,000-100,000 2-3 MONTHS [facility] ALL PROGESTERONEon 03-03- 4 PROGESTERONE 9.3 ng/mL . [facility] Comment on above: Follicular phase 0.1 - 0.9 Luteal phase 1.8 - 23.9 Ovulation phase 0.1 - 12.0 First trimester 11.0 - 44.3 Second trimester 25.4 - 83.3 Third trimester 58.7 - 214.0 Postmenopausal 0.0 - 0.1 Performed at: [address] [id number] [employer] Supervisor: Josr Jarvis PhD, Phone: [phone] [facility] IGP,APTIMA HPV,AGE GDLNon AGE GDLN ACOG TESTING Note . [facility] Comment on above: TESTS RESULT FLAG UN ITS REF RANGE LAB Clinician Provided Cytology Information Source.............Cervix;Endocervix No. of containers..01 ThinPrep Vial Age Algo ACOG Jacinta... 30-65 01 FLAG LEGEND: L-Low Normal,H-High Normal,LL-Alert Low,HH-Alert High <-Panic Low,>-Panic High,A-Abnormal,AA-Critical Abnormal Performed at: 01 =[address] [id number] Stacey Tao MD, HPV APTIMA Negative Negative [facility] Comment on above: This nucleic acid am plification test detects fourteen high- risk HPV types (16,18,31,33,35,39,45,51,52,56,58,59,66,68) without differentiation. Performed at: =[address] [id number] [employer] Supervisor: Stacey Tao MD, Phone: [phone] Performed at: [address] [id number] [employer] Supervisor: Stacey Tao MD, Phone: [phone] IGP, APTIMA HPV, RFX 16/18,45 Note . [facility] Comment on above: TESTS RESULT FLAG UN ITS REF RANGE LAB DIAGNOSIS: 02 NEGATIVE FOR INTRAEPITHELIAL LESION OR MALIGNANCY. Specimen adequacy: 02 Satisfactory for evaluation. Endocervical and/or squamous metaplastic cells (endocervical component) are present. Performed by: 02 Ed Mancilla, Business Process Manager (ASCP) . 02 Note: Note 02 The [...] <-Panic Low,>-Panic High,A-Abnormal,AA-Critical Abnormal Performed at: [address] [phone] Stacey Tao MD, BRUSH-SPATULA CERVIX ENDOCERVIX [facility] DHEA-SULFATEon 08-23-2022 DHEA-Sulfate 352.0 ug/dL Normal 84.8-378.0 [facility] Comment on above: Performed By: #### L [facility] #### [facility] [address] [place] [address] Dr. Nam Keenan FSHon 08-23-2022 FSH 6.7 mIU/mL Normal [facility] Comment on above: Result Comment: Adul t Female: Follicular phase 3.5 - 12.5 Ovulation phase 4.7 - 21.5 Luteal phase 1.7 - 7.7 Postmenopausal 25.8 - 134.8 Performed By: #### L [facility] #### [facility] [address] [place] [address] Dr. Nam Keenan LUTEINIZING HORMONE (LH)on 0 08-23-2022 LH 13.7 mIU/mL Normal [facility] Comment on above: Result Comment: Adul t Female: Follicular phase 2.4 - 12.6 Ovulation phase 14.0 - 95.6 Luteal phase 1.0 - 11.4 Postmenopausal 7.7 - 58.5 Performed By: #### L [facility] #### [facility] [address] [place] [address] Dr. Nam Keenan CBC AUTO DIFFon 08-22-2022 BASO # 0.1 103/ul Normal 0.0-0.1 [facility] Comment on above: Performed By: #### L BCLH #### [facility] [address] [address] [address] Nam Keenan Basophils/100 WBC (Bld) 0.7 % Normal 0.2-2.0 [facility] Comment on above: Performed By: #### L BCLH #### [facility] [address] [address] [address] Nam Keenan EO # 0.3 103/ul Normal 0.0-0.7 [facility] Comment on above: Performed By: #### L BCLH #### [facility] [address] [address] [address] Nam Keenan Eosinophils/100 WBC (Bld) 3.9 % Normal 0.9-7.0 [facility] Comment on above: Performed By: #### L BCLH #### [facility] [address] [address] [address] Nam Keenan Erythrocyte distribution width (RBC) [Ratio] 13.3 % Normal 11.0-15.0 [facility] Comment on above: Performed By: #### L BCLH #### [facility] [address] [address] [address] Nam Keenan Hematocrit (Bld) [Volume fraction] 38.7 % Normal 36.0-48.0 [facility] Comment on above: Performed By: #### L BCLH #### [facility] [address] [address] [address] Nam Keenan Hemoglobin (Bld) [Mass/Vol] 12.4 g/dL Normal 12.0-16.0 [facility] Comment on above: Performed By: #### L BCLH #### [facility] [address] [address] [address] Nma Keenan IG # 0.01 10e3/ul Normal 0.00-0.03 [facility] Comment on above: Performed By: #### L BCLH #### [facility] [address] [place] [address] Dr. Nam Keenan IG % 0.1 % Normal 0.0-0.5 [facility] Comment on above: Performed By: #### L BCL #### [facility] [address] [place] [address] Dr. Nam Keenan LYMPH # 2.9 103/ul Normal 1.2-3.8 [facility] Comment on above: Performed By: #### L BCL #### [facility] [address] [place] [address] Dr. Nam Keenan Lymphocytes/100 WBC (Bld) 34.4 % Normal 20.5-60.0 [facility] Comment on above: Performed By: #### L BCL #### [facility] [address] [place] [address] Dr. Nam Keenan MANUAL DIFF REQ NO Normal [facility] Comment on above: Performed By: #### L AMY #### [facility] [address] [place] [address] Dr. Nam Keenan MCH (RBC) [Entitic mass] 27.8 pg Normal 26.7-34.0 [facility] Comment on above: Performed By: #### L AMY #### [facility] [address] [place] [address] Dr. Nam Keenan MCHC (RBC) [Mass/Vol] 32.0 g/dL Normal 29.9-35.2 [facility] Comment on above: Performed By: #### L BCL #### [facility] [address] [place] [address] Dr. Nam Keenan MCV (RBC) [Entitic vol] 86.8 fL Normal 81.0-99.0 [facility] Comment on above: Performed By: #### L BCL #### [facility] [address] [place] [address] Dr. Nam Keenan MONO # 0.6 103/ul Normal 0.3-0.8 [facility] Comment on above: Performed By: #### L BCLH #### [facility] [address] [address] [address] Nam Keenan Monocytes/100 WBC (Bld) 6.7 % Normal 1.7-12.0 [facility] Comment on above: Performed By: #### L BCL #### [facility] [address] [address] [address] Nam Keenan NEUT # 4.6 103/ul Normal 1.4-6.5 [facility] Comment on above: Performed By: #### L BCL #### [facility] [address] [address] [address] Nam Keenan Neutrophils/100 WBC (Bld) 54.2 % Normal 43.0-75.0 [facility] Comment on above: Performed By: #### L BCL #### [facility] [address] [place] [address] Dr. Nam Keenan Platelet mean volume (Bld) [Entitic vol] 9.6 fL Normal 9.5-13.5 [facility] Comment on above: Performed By: #### L BCL #### [facility] [address] [place] [address] Dr. Nam Keenan PLT 335 103/ul Normal 150-450 [facility] Comment on above: Performed By: #### L BCL #### [facility] [address] [place] [address] Dr. Nam Keenan RBC 4.46 106/ul Normal 4.20-5.40 [facility] Comment on above: Performed By: #### L BCL #### [facility] [address] [place] [address] Dr. Nam Keenan WBC 8.5 103/ul Normal 4.0-11.0 [facility] Comment on above: Performed By: #### L BCL #### [facility] [address] [place] [address] Dr. Nam Keenan FREE T4on 08-22-2022 Free T4 [Mass/Vol] 1.14 ng/dL Normal 0.76-1.46 [facility] Comment on above: Performed By: #### L BCLH #### [facility] [address] [address] [address] Nam Keenan GLYCOHEMOGLOBIN A1Con 2022 ADA RECOMMENDATION SEE BELOW Normal [facility] Comment on above: Result Comment: ADA RECOMMENDED LIMIT 4.0 - 6.0 ADA THERAPEUTIC TARGET < 7.0 ACTION SUGGESTED > 7.0 Performed By: #### A 1C #### [facility] [address] [address] [address] Nam Keenan Glucose [Mass/Vol] 97 mg/dL Normal [facility] Comment on above: Performed By: #### A 1C #### [facility] [address] [address] [address] Nam Keenan HbA1c (Bld) [Mass fraction] 5.0 % Normal 4.5-6.2 [facility] Comment on above: Performed By: #### A 1C #### [facility] [address] [place] [address] Dr. Nam Keenan PREG QUANT HCGon 08-22-2022 HCG QUANT <1 Normal [facility] Comment on above: Performed By: #### P REGQNT, TSH #### [facility] [address] [address] [address] Nam Keenan HCG RANGE SEE BELOW Normal [facility] Comment on above: Result Comment: 5-50 0.2-1 WEEK 50-500 1-2 WEEKS 100-5,000 2-3 WEEKS 500-10,000 3-4 WEEKS 1,000-50,000 4-5 WEEKS 10,000-100,000 5-6 WEEKS 15,000-200,000 6-8 WEEKS 10,000-100,000 2-3 MONTHS Performed By: #### P REGQNT, TSH #### [facility] [address] [address] [address] Nam Keenan TSHon 08-22-2022 TSH 2.026 uIU/mL Normal 0.358-3.740 [facility] Comment on above: Performed By: #### P REGQNT, TSH #### [facility] [address] [place] [address] Dr. Nam Keenan PREG QUANT HCGon 05-27-2022 HCG QUANT 3 mIU/mL Normal [facility] Comment on above: Performed By: #### P REGQNT #### [facility] [address] [place] [address] Dr. Nam Keenan HCG RANGE SEE BELOW Normal [facility] Comment on above: Result Comment: 5-50 0.2-1 WEEK 50-500 1-2 WEEKS 100-5,000 2-3 WEEKS 500-10,000 3-4 WEEKS 1,000-50,000 4-5 WEEKS 10,000-100,000 5-6 WEEKS 15,000-200,000 6-8 WEEKS 10,000-100,000 2-3 MONTHS Performed By: #### P REGQNT #### [facility] [address] [place] [address] Dr. Nam Keenan CBC AUTO DIFFon 05-22-2022 BASO # 0.1 103/ul Normal 0.0-0.1 [facility] Comment on above: Performed By: #### L BCLH #### [facility] [address] [place] [address] Dr. Nam Keenan Basophils/100 WBC (Bld) 0.7 % Normal 0.2-2.0 [facility] Comment on above: Performed By: #### L BCLH #### [facility] [address] [place] [address] Dr. Nam Keenan EO # 0.2 103/ul Normal 0.0-0.7 [facility] Comment on above: Performed By: #### L BCLH #### [facility] [address] [place] [address] Dr. Nam Keenan Eosinophils/100 WBC (Bld) 1.6 % Normal 0.9-7.0 [facility] Comment on above: Performed By: #### L BCLH #### [facility] [address] [place] [address] Dr. Nam Keenan Erythrocyte distribution width (RBC) [Ratio] 13.9 % Normal 11.0-15.0 [facility] Comment on above: Performed By: #### L BCLH #### [facility] [address] [place] [address] Dr. Nam Keenan Hematocrit (Bld) [Volume fraction] 36.2 % Normal 36.0-48.0 [facility] Comment on above: Performed By: #### L BCLH #### [facility] [address] [place] [address] Dr. Nam Keenan Hemoglobin (Bld) [Mass/Vol] 12.1 g/dL Normal 12.0-16.0 [facility] Comment on above: Performed By: #### L BCLH #### [facility] [address] [place] [address] Dr. Nam Keenan IG # 0.03 10e3/ul Normal 0.00-0.03 [facility] Comment on above: Performed By: #### L BCLH #### [facility] [address] [place] [address] Dr. Nam Keenan IG % 0.3 % Normal 0.0-0.5 [facility] Comment on above: Performed By: #### L BCLH #### [facility] [address] [place] [address] Dr. Nam Keenan LYMPH # 3.9 103/ul Critically high 1.2-3.8 [facility] Comment on above: Performed By: #### L BCLH #### [facility] [address] [place] [address] Dr. Nam Keenan Lymphocytes/100 WBC (Bld) 38.0 % Normal 20.5-60.0 [facility] Comment on above: Performed By: #### L BCLH #### [facility] [address] [place] [address] Dr. Nam Keenan MANUAL DIFF REQ NO Normal [facility] Comment on above: Performed By: #### L BCLH #### [facility] [address] [place] [address] Dr. Nam Keenan MCH (RBC) [Entitic mass] 28.0 pg Normal 26.7-34.0 [facility] Comment on above: Performed By: #### L BCLH #### [facility] [address] [place] [address] Dr. Nam Keenan MCHC (RBC) [Mass/Vol] 33.4 g/dL Normal 29.9-35.2 [facility] Comment on above: Performed By: #### L BCL #### [facility] [address] [place] [address] Dr. Nam Keenan MCV (RBC) [Entitic vol] 83.8 fL Normal 81.0-99.0 [facility] Comment on above: Performed By: #### L BCLH #### [facility] [address] [place] [address] Dr. Nam Keenan MONO # 0.8 103/ul Normal 0.3-0.8 [facility] Comment on above: Performed By: #### L BCLH #### [facility] [address] [place] [address] Dr. Nam Keenan Monocytes/100 WBC (Bld) 7.6 % Normal 1.7-12.0 [facility] Comment on above: Performed By: #### L BCL #### [facility] [address] [place] [address] Dr. Nam Keenan NEUT # 5.4 103/ul Normal 1.4-6.5 [facility] Comment on above: Performed By: #### L BCL #### [facility] [address] [place] [address] Dr. Nam Keenan Neutrophils/100 WBC (Bld) 51.8 % Normal 43.0-75.0 [facility] Comment on above: Performed By: #### L BCLH #### [facility] [address] [place] [address] Dr. Nam Keenan Platelet mean volume (Bld) [Entitic vol] 9.1 fL Critically low 9.5-13.5 [facility] Comment on above: Performed By: #### L BCLH #### [facility] [address] [place] [address] Dr. Nam Keenan PLT 342 103/ul Normal 150-450 [facility] Comment on above: Performed By: #### L BCLH #### [facility] [address] [place] [address] Dr. Nam Keenan RBC 4.32 106/ul Normal 4.20-5.40 [facility] Comment on above: Performed By: #### L BCLH #### [facility] [address] [place] [address] Dr. Nam Keenan WBC 10.3 103/ul Normal 4.0-11.0 [facility] Comment on above: Performed By: #### L BCLH #### [facility] [address] [address] [address] Nam Keenan PROF CHEM 8 (BAS METB)on Anion gap [Moles/Vol] 12.1 mmol/L Normal [facility] Comment on above: Performed By: #### B MP #### [facility] [address] [place] [address] Dr. Nam Keenan Calcium [Mass/Vol] 8.9 mg/dL Normal 8.5-10.1 [facility] Comment on above: Performed By: #### B MP #### [facility] [address] [place] [address] Dr. Nam Keenan Chloride [Moles/Vol] 105 mmol/L Normal 98-107 [facility] Comment on above: Performed By: #### B MP #### [facility] [address] [place] [address] Dr. Nam Keenan CO2 [Moles/Vol] 27.4 mmol/L Normal 21.0-32.0 [facility] Comment on above: Performed By: #### B MP #### [facility] [address] [place] [address] Dr. Nam Keenan Creatinine [Mass/Vol] 0.66 mg/dL Normal 0.55-1.02 [facility] Comment on above: Performed By: #### B MP #### [facility] [address] [place] [address] Dr. Nam Keenan EGFR-AF TUNISIAN >60 Normal >=60 [facility] Comment on above: Performed By: #### B MP #### [facility] [address] [place] [address] Dr. Nam Keenan EGFR-NON AF TUNISIAN >60 Normal >=60 [facility] Comment on above: Performed By: #### B MP #### [facility] [address] [address] [address] Nam Keenan Glucose [Mass/Vol] 105 mg/dL Normal 74-106 [facility] Comment on above: Performed By: #### B MP #### [facility] [address] [address] [address] Nam Keenan Potassium [Moles/Vol] 3.5 mmol/L Normal 3.5-5.1 [facility] Comment on above: Performed By: #### B MP #### [facility] [address] [place] [address] Dr. Nam Keenan Sodium [Moles/Vol] 141 mmol/L Normal 136-145 [facility] Comment on above: Performed By: #### B MP #### [facility] [address] [address] [address] Nam Keenan Urea nitrogen [Mass/Vol] 7.0 mg/dL Normal 7.0-18.0 [facility] Comment on above: Performed By: #### B MP #### [facility] [address] [place] [address] Dr. Nam Keenan Urea nitrogen/Creatinine [Mass ratio] 10.6 mg/mg Normal [facility] Comment on above: Performed By: #### B MP #### [facility] [address] [place] [address] Dr. Nam Keenan PREG QUANT HCGon 05-17-2022 HCG QUANT 532 mIU/mL Normal [facility] Comment on above: Performed By: #### L BCL #### [facility] [address] [place] [address] Dr. Nam Keenan HCG RANGE SEE BELOW Normal [facility] Comment on above: Result Comment: 5-50 0.2-1 WEEK 50-500 1-2 WEEKS 100-5,000 2-3 WEEKS 500-10,000 3-4 WEEKS 1,000-50,000 4-5 WEEKS 10,000-100,000 5-6 WEEKS 15,000-200,000 6-8 WEEKS 10,000-100,000 2-3 MONTHS Performed By: #### L [facility] #### [facility] [address] [place] [address] Dr. Nam Keenan US PREG TVon 05-13-2022 [...] ROOSEVELT LOPEZ Date: 2022-05-13 13:02 Normal [facility] PREG QUANT HCGon 04-28-2022 HCG QUANT 139 mIU/mL Normal [facility] Comment on above: Performed By: #### L AMY #### [facility] [address] [place] [address] Dr. Nam Keenan HCG RANGE SEE BELOW Normal [facility] Comment on above: Result Comment: 5-50 0.2-1 WEEK 50-500 1-2 WEEKS 100-5,000 2-3 WEEKS 500-10,000 3-4 WEEKS 1,000-50,000 4-5 WEEKS 10,000-100,000 5-6 WEEKS 15,000-200,000 6-8 WEEKS 10,000-100,000 2-3 MONTHS Performed By: #### L [facility] #### [facility] [address] [place] [address] Dr. Nam Keenan PREG QUANT HCGon 04-26-2022 HCG QUANT 50 mIU/mL Normal [facility] Comment on above: Performed By: #### P REGQNT #### [facility] [address] [place] [address] Dr. Nam Keenan HCG RANGE SEE BELOW Normal [facility] Comment on above: Result Comment: 5-50 0.2-1 WEEK 50-500 1-2 WEEKS 100-5,000 2-3 WEEKS 500-10,000 3-4 WEEKS 1,000-50,000 4-5 WEEKS 10,000-100,000 5-6 WEEKS 15,000-200,000 6-8 WEEKS 10,000-100,000 2-3 MONTHS Performed By: #### P REGQNT #### [facility] [address] [place] [address] Dr. Nam Keenan PROGESTERONEon 04-19-2022 Progesterone 12.6 ng/mL Normal [facility] Comment on above: Result Comment: Foll icular phase 0.1 - 0.9 Luteal phase 1.8 - 23.9 Ovulation phase 0.1 - 12.0 First trimester 11.0 - 44.3 Second trimester 25.4 - 83.3 Third trimester 58.7 - 214.0 Postmenopausal 0.0 - 0.1 Performed By: #### P KIAN #### [facility] [address] [place] [address] Dr. Nam Keenan PROGESTERONEon 04-16-2022 Progesterone 9.5 ng/mL Normal [facility] Comment on above: Result Comment: Foll icular phase 0.1 - 0.9 Luteal phase 1.8 - 23.9 Ovulation phase 0.1 - 12.0 First trimester 11.0 - 44.3 Second trimester 25.4 - 83.3 Third trimester 58.7 - 214.0 Postmenopausal 0.0 - 0.1 Performed By: #### L ANNE #### [facility] [address] [place] [address] Dr. Nam Keenan PROGESTERONEon 03-15-2022 Progesterone 6.2 ng/mL Normal [facility] Comment on above: Result Comment: Foll icular phase 0.1 - 0.9 Luteal phase 1.8 - 23.9 Ovulation phase 0.1 - 12.0 First trimester 11.0 - 44.3 Second trimester 25.4 - 83.3 Third trimester 58.7 - 214.0 Postmenopausal 0.0 - 0.1 Performed By: #### L AMYH #### [facility] [address] [place] [address] Dr. Nam Keenan PROGESTERONEon 02-15-2022 Progesterone 11.0 ng/mL Normal [facility] Comment on above: Result Comment: Foll icular phase 0.1 - 0.9 Luteal phase 1.8 - 23.9 Ovulation phase 0.1 - 12.0 First trimester 11.0 - 44.3 Second trimester 25.4 - 83.3 Third trimester 58.7 - 214.0 Postmenopausal 0.0 - 0.1 Performed By: #### P KIAN #### [facility] [address] [place] [address] Dr. Nam Keenan Coding Summary.on 03-30-2021 Coding Summary. CD:[id number]:[id number] G h0bWw+PGhlYWQ+NM4BDZT hM78qiHTeiZ9YV7wTSH4F ZSKXUJQTMK2USI6arJF1D UjaS1MzoxRz WymjnJBpBF52EAn2TBY3x SmmWUxovQ0auPZuU4x0Iw PbEM98jZ13WSaiIENhElS 3LjZpbjsgbWFy E6fbOrZqdVJaYbb+PHRhY mxlIHdpZHRoPScxMDAlJy VsfXhgMQ2vPx7yUUVwCOI vbGxhcHNlOiBj f5xgWJXdOEsmCQ0isNtbK 1OajPO5DRHjm7r4Aw06vG I+RXSqBQT1hUkjNRndb23 8BsWcd9ywAGC6 oMBjWHdoNHI9B34fp8K4U DEzABVkCGS0hWO2rM2yhH dzcrcjL3OxsSUaBbZ6XHT 3zGUkfL7koMby dbsgwG2eExz+V62XPQ3HH LQNOJ2ALuj6T9KiBnfosN I+OK18GUUuNU74kPBybPS pg1xyxWv8TyTz UWQpUNP8sTvqNGonw6MyS PSqB74zhONyy4T8JDByrA bvkNKdNhQckIS8xW3rXEb livojy1odqcxp Rbglr3rwyc44qU34V46kJ DusMFRlHNH7VWMxMOEhdL ilnp7kgR2jMc6+ZUeng9b qb4jmyRn0YnMs LWJsjzHyrMqxXTG2s7QiZ l65X0SqxTvqq7GlCje6ix 55zHYvn4X1nGE4CDzdDPZ xkG3gSIpnRzF2 SJEcFlIynL18nLZlMZlrX l1riXoyiLbwEN8oXCWjhf xsYGIsmC5tAYZvnLLipSi qQH0sBZGtazdn h666ZpBtKVB8WSAimUFrU 4ZefH3gXvOeGSXbKFLwH9 XgsCPyEPgkI829EKszTvH 8HFAryqDuP2Ij QGJhnYxnAcF5k5R5Sb9Hn 2AiehymCQA7OSevUSAbNu QaMzUbUwZ6Y5NfZwy4UPX trGwvMO7jJ7It JNVolvcmpyzdjEP4AHEyD KXqeU69mQWkQAxtCr0sv1 B1l168YFHcELLlaZ64Xy1 udDogMTBwdCBU cE9ccqdno5aaeiysUyMaB ZSiNAi3VQo3PLFraKmgMn YaRNF5NyO9ZQV8dYPhaT4 ctWmwdurbxO4t Oyc+Y12cuD0rAGQ9GIJ1z sowSHPihlPcLV30FS21H7 RyPjwvdGFibGU+PGRpdiB kfMyiUQ8kNjLh s6sjq0FrIGueB1NhOUTpP OteEsh4IKUcDGJ7gYL9xP 7pVXYfFApta0M7cJC6K1F gieWnok3ok6zk JXIyWGmaG25jsFKfg1B7G HXksCG2DPQerRnzPeHtsU 93Oyc+EYMhpEqin6XpSun vu4eaa1jycPb7 SvDlQCNrepCqyYlnDER4s 8IbBo67S50aKQgiIOMySS BoTAWmCMLnyGbwlj4akE9 wIi8+PGNvbCB3 qOV9gX8lUOHnAbY8IMyxM 856WmEtmPAmAqtoq0zcx2 llkFb1ErLiTJIwqgJqoZf uISC2f0HvAc26 T21pDDqwWXDiMWHiSZAlV PJklSctsw2kvL2nHx6+PC 4jv1uvbt89jO14uLT+PHR vMMG9iVisIQrq RRGopQ4rYIfgRkJ9JUUnI zSlpU59gXPfTGjvLw2roR megMlbDP2zUUDvcbmgy45 2XyZax1fbSHAo qIYxUDlbJVU0C34lv4Q6Y FVeJLTfUWH3gFW7pZ9gwZ lnbjogbGVmdDsgdmVydGl oIXkvEEagE112 IHRvcDsnPlBhdGllbnQgT lMrEJu1E2HvPuy6UQYmlS foLL0xfASfBBmdBn8ylMm rvHycBU7kSHYc oupsc424MyNob8isVJTar QKbZDloCTP0K94ha4Z2MC VnSFSxSBI2hLO1nP5bqSr nbjogbGVmdDsg ajOgnPwwUSomABjvK489L HRvcDsnPkJpcnRoIERhdG P3HY08OH07iXCvl0Q7vGE 6L3LmEHOecxsd aqgwcPG1UPHfWIZtuR60U w2jhConPg0qWRWzEMV6GO HxmUPuJ9JyiR7wRuEvKZH dWXXwJ2MviPXi BRdxW487FDgnYyS6YNQnl mVlN9GcKKVjaLnpApG6r7 Y0Ec9XV8Y6KZ98WQ03qHX vd2M1kOJ2Z2Xz PKAbpcwkwfiprVY6JGLwS HOuaS34Fu4nbXwhCv5kVF SnDXA3KQLwlILqQ2HznY7 yOiAjMDAwMDAw E5TpuIJfVYgoC847WGzuK kS2BVSueaWtA0SgERPzkN zfIhA0o3N3Ee5SBYi0ZB2 4SI45oBHle2Y2 dZW4W9LuODEgfvotxlvof HY9UQTuFDXpgJ87Fb7tkB rrRs9uOOJmNIK2RDVvoEE dK2YmyW1sWeKh KHSfAVThU1LgzOIrBCalL 811AKztEoO4WZAqfsFnK4 MmWPRroReuLbF3w7R2Qm8 XVEXzXB27SEZ2 gMU0YM29PL63G1RdLwynb GFibGU+PHRhYmxlIHdpZH RoPScxMDAlJyBzdHlsZT0 yGm8jBFDjDPZf kMwcoMUbUyItu9ytUSKsT MwkFF4rrFlgF3LthXC5WE Pwa4p2Kj41Y09nN0HfxOA +EGBwcCL2oBW0 fA5mLaUqTqP6OUjrN154C pIdrWYpOrljy2aod7dfzW w1LkP5SYFzchTsyNyzOJS 4n0CtDe60P98c IHdpZHRoPSIxNSUiIHZhb Uxrhe6gdO6oZj8+PGNvbC Y0cFN2bY1oXyWoBbT2CTi pG926YzWjoJCq Gohru3cxw2ushAg9YwOnT QQcuxQqgLrgPZM7c5QfUk 72L0XofJtdi5HnYov7ld2 6pFPpv3S2zIN8 W2YrKWLvjypwoIImrBubJ P5rQANsoolqUISgtR8bSU ReW0t8BxGsNlV4BTlcD1U edzA0MTZmcQAe OGwdQLR7A53ha1C0SKXwB UFlWYX6nCY0yH9kfWxpvg ogbGVmdDsgdmVydGljYWw qRPuuG955KIEw xRzlOKKufC2lJTGeaHIqp TreUN7dFKXluuryMs7OMC mIUotrGgRGL4jNSVEWOO2 1MM24jUZxm2H1 pEN5J5UzHPEcvaylrjoos NS0XZEvXKNvtO41lSRcHA jfZl5pu9S6f904LQVyHXQ uyV19Pm3ypLpq AWKkfAFDkP5whrtqa6ybf creRvHxMZOtPRw1ZDv1SF CdpIhdYuSmOCA4WdZ9EDW 9pYVznC4nfQbk ebrujC0dFkk+MDgvMjEvM Ft9JVmwnIF+FYHyVJB3aB jiTNioGUApxM8vDLOeZ1c 1QyOjHcO8OAhw U8DsCDCnchixEw03jX5nW hScMkL1RUidA9BdmtJ8KM YklIFgVVihFIY8H41kb5T 9VXXkGBGuUHS7 bIP2fY7qqGihiobjwEBoi DsgdmVydGljYWwtYWxpZ2 46IHRvcDsnPjMyIFllYXJ rYI84ZW63eWAf d1L6dER5Z8YcBJIgzaxqt afrfQN1JLKsYSRviU04lN EzKSutLk6ht2V2d232NSR rDRYbyI37Ug1m bSmuDXFuwHIKdH8amxmxi 0aihotiThDtBUYtHEc2AE i7PBWgrYnxRkBuAOV8SbS 5BGJ4jQPocZ0r vAwxvzverT7tVvn+RmVtY NvjSP98VH25wFLcv7K0hM I4G5IlXEMoielryxkqpRU 5OPUzYOGyoD77 vQJhSWdiFe6qr7K2a616S BDvRJTosQ46Wr2ymWcpAO BijMTTwB8bnccgz9ibeqs gIzAwMDAwMDt0 GLt4VJHmwIkdCeYwPMC3U lY5YIS4uWJspD5zsTuegj srsZ3eOai+Y8V2iVQ3vDQ udDwvdGQ+PC90 cu55U6ZfLhnwQzc5GQRjP VD4sWW5oZ4sEYTdHUvaa6 Q0uMI9Q7FoizDbqh7ua0u pBHZgVKmsP54j bCNby6K1NMNvjMJ0UDUem XczBoNvcU26Kup+PGNvbG oek5IgTvbtw3xac7xbgJm 9IjMwJSIgdmFs fZtfTXJ6i6PvGx71Q04tV HdpZHRoPSIzMCUiIHZhbG tjkw3duM3yDl7+PGNvbCB 6cTI3aP3rKgKo NaR1ZPwmE434GjEapCNlC elhf5evx0crnCo5CjDgJT TfukMvzSlwWGJ6y9OhKv1 9Q9VqrJees1Kj Tmi1py08aGSur4S9uHD0Z 3BhZGRpbmctbGVmdDogMC 8hDCNstjkiHPWlmG5nAUS lZ1r1QxMdYnF3 REhtC3RgdhZ7XLKwaYBoN RPpjOCTdS2momvns3ljvs djKxAqXUVzMAl8CZa4MKP saWduOiBsZWZ0 FtF0NQU7iALgcA4jbWbjo dhpkM7gWro+BSb4i9nzbD ImZS9rpWZ5VB31DN49nDF ut9E5pSX9E3Xb CZIqbuwseggrwLT2HFRcE WWgmA33Dq6exBkqId6yIL KwPGO0MMFhhCWqQ4TmtC8 yOiAjMDAwMDAw T3ZmbIQtKQapK497YHpqN cC7NRHjzvQsX9VtFPQoqX ysBvZ2j9Q7Ov5TSB97QO9 8KS41hDMli2Z5 pXS0B3NcNBCcmgrodfxbt NF0DNOaQFTfhS40Jo7jyE bwYt2cEQIbNIA4DJBqtYT eG8BnrZ7gBdBn EVVyOFHcE3MghSYrNWjjX 430WKrtVsH6CYPhgaNaL1 CgDJUhvGcuOcY7m9L6Qy5 REe20LE67TX97 pNDns7Z6tII6P0LaFZFql nlhvsftbSI0UJNdGJPkuG 57Hw1xqTyjTk0mNRLrLVD 7MWJutRBqF8Xy oE1kJrViWTGhXXFdD0Jie VXoFIwwC590TVvwMrO7FQ ThkvSwR7EnMYFevBasBjH 6u0I5Lr6QKZll naz2J5HmSjtgcJL+PC90Y YLxST39pNYmyCMnl5lhiA q8JuOjJIHoXQR7vXqoKVo rp2IdDOQlZ39j bGFw (more content not included)... Normal [facility] Coding Summary.on 03-18-2021 Coding Summary. CD:[id number]:[id number] G h0bWw+PGhlYWQ+AD1VNEF zL03cdJCmwG0DM0eMMM3C INHSXCVIPD7YRF9seCA3S YylZ8YulmTa FtvxkMEnYF43NOf4AFH1f ImiWVgdfO4waSIhY7n2Sj GxKI80zC16KMjcQUWwTrK 3LjZpbjsgbWFy H7leBiPyfJFpOgz+PHRhY mxlIHdpZHRoPScxMDAlJy KxyJegUT8wHx6jLSHnVMF vbGxhcHNlOiBj t6dpEQTdKXzoXD8wxZxzV 6UjaZM4ZAHoi9i7Ih41vU I+JCJcTWL8wRxyWRrsd27 1ZoQji9uuKLN5 fBBsCMoiDSZ1S00ks8I6N PRhTCHoVVU2yKV8aN5vmU ncwnaqU1CyeOHrZbZ9ARU 3oQPruY7jdKnu lcugiG7nXys+M68JDF7IM DSUSJ1SPsj6C7ZpYdrllQ I+SZ61TNRgUU62lUWydBG ul1ewhMr6NbWu LTHcHNX2vZglWPwtm0NqJ QYtO01hxZBlg1P9UOMtrV adlCSiSeObuLA6uT7yYAl pasrou8cesbvs Fvoto8pcfx23vN18Y59dI PskBEJoTHD4SDOyIRPyyV gbmd1xoR3bVz0+AIeib6i sg2zrrFj8GbRc PLDtiqMojZnsRAJ5v4FqR n01H3GfeJebf5QfUyb3ep 32dTFms3O3cLE5ESztFTB sxF6qHNsxEcQ7 XXGdWrQafX48hCJpAOuzF y9ctPtubEszUL3bTUBhup mrPUUloB3hJRUckFIdlMx gDO5mZYJhbcpm e788JvQjTJW3MVItzPLpF 2DhcC2zLpMgWGIqBUBhD9 SocKDaJJrbR609CSddFmE 7COMclvQmK0Ct TSKgwCmgGwW5k0Z4Ys7Mk 5ZeukhmRQA6GOlaFJFiXb R8FoAuAqS6Y2DfNah2NMB vtZciHS0eT6Kh FAJzjjjoqreuzUB5VITkE INcbR07aQNnQKksIr8bl8 W5q036TAKhEKIdkQ86Di1 udDogMTBwdCBU vA8iytkdk8ymezmcMaSgZ BSoZTf7QSk7KZGijPsoSp McAJN0VzE4JII1cUNhjX1 fnNdbufopwE5r Oyc+Z48lkC0aCTQ5VME7j kfbTXGbawFuKV80CY05K1 RyPjwvdGFibGU+PGRpdiB mbJsuLU4mQmDo k8awg5LfNKfuE1CtKRMlB JbuEki0SIEyBSZ1eKK4pZ 1oZQMpAEvfg0G5iVX8C6R jtaRchq8ql1ug MSUxILgcE24cuBUex5N4F FSghDH5RLSdiDmxKxOheG 93Oyc+KXFmqNprn2HcXff hg8mgi7xpqUv8 ZeErMKGkszKfxYjfNDJ1e 1XkUi40D41hJBejDEErBF LtDDQpDCPrxJvxhc3ukY1 wIi8+PGNvbCB3 lHV4nU8lSZZhIeI2GOokN 474QwGehTFbOsrkg0wbn5 judDg9GeIjYKDjfwBbxFc yDDM3g2SgJn93 F65gTEqmXOJeUGEsFGUaS LWelAjvjl7aeB1sXj8+PC 5cs5dxbt90zF09kML+PHR bDFW3jTnmKUso ORJcuA6bNPmvZhN4CJPuF bDtnE27yZYgFBnrEa6osB peiKtaZV2bKBIqkmjhu29 6YqPdd7gdAWIs iRSbJWmkRXE9S55cy3S8V KGaDWRrMVG2tWK0dZ3cqC lnbjogbGVmdDsgdmVydGl hQMzkUFztY760 IHRvcDsnPlBhdGllbnQgT sNdSKu5N8TwVkj6YIRhwW tsYC0tfUJrORpoCm7ncDr ftPgtOY0pEXVe gisrk073TlYfs2dkEIBrp NHuIQfvOQD3V16ec9V4IR JoXPQdSDX3jVJ0lQ1zyAt nbjogbGVmdDsg ztSztHgtNJlcBPosY392J HRvcDsnPkJpcnRoIERhdG S4QV18YJ84hZGkq6C4gHX 0T9CwANLqpfyf yijifJK6RMZyBDHzaC36Y c4mcVniTu0lJGGzMNK3HR VsrNLmH6PzzW3qNaFxHIT uERHpC5YkmXEd WYcfO238QTehQdJ8CPZzc tZgT0VbIBHdwFarInP3g3 F2Mo9KF8O1CT68UA39uRR yt2T1sQL7P6Th RKXilqrqolfpmQF5RNGcC USmsN04Db3ufOjvJd5dOB SmUOD0DTCubWHjN5AudT3 yOiAjMDAwMDAw P0CjpMLiCTlaU912WShvH gH2BFJfouIzC0ClCFMqzC fnLcQ9x4P7Vp8OQZu8TH0 9CB77oGNll2V0 mCR8R4CgPUXtrltozejvy GZ8BRLzTCBozZ80Na1ghG cqXg0lMVQwZWV5MMGzxOC aM5TkhG4rLpAg DPChROYyU8ExiJBxFQnzR 304NNgiPxG4DARnqjIfU6 ZsGOHsvYaoHhT8c3P5Hx8 MEZKrFK13IIJ6 vYK4AZ58NT12L1YvBduut GFibGU+PHRhYmxlIHdpZH RoPScxMDAlJyBzdHlsZT0 mTh3wOTKjJLZz tEkdlFPpCeYxs1joCHLnB WpzFE8pwNtaS9YliQT6GO Ysj4g1Qw59B23lY4BpxLP +DEBuzSH9qPF5 yH3tNsDeCjN4UXfgO728R eEvkROyYopdi1udi4jwqC y8VwA3LNUkbaAyeIsoHMI 4b5BvCz00J31w IHdpZHRoPSIxNSUiIHZhb Xlixf0xkK2aCk7+PGNvbC F0aGJ5rA5aCsBpJbU9MPg lY536YwGmtGGf Nnxig7oju9cjwXn1QkFtT ZZalqJklPhuLJI8d1LiRk 47T7FqjEuyf0HbWtd9oa1 2iCQoy6I1zUI6 B3EcGSNmqucqxZZxwUelE G1oTBXghglfALFbeC3xWR ZwT2w7IfGxUtH3GBnyT9D lmhR8NYEtsFIi QBcbTYZ0U28ok7A1MQKoT WWeSAB0tPJ3yZ8ywNpmqj ogbGVmdDsgdmVydGljYWw jESvzI309QIYf dTniNRQlqE5eZMJreVLvo HzsHP9nNBMxldqvDj7KMZ sXUviqNpWVL2cPRIMUZX3 4PM62eWGms1B2 wLD0G9ZvALUmnjxuexmih EK5BVOuPUThpV78lVKsUF xzRa2jh7X2i592LYQzAXR gvR83Vo6sfIjc FHIwvBRIsL6lejyfi9zcf fmkIvLrCNYsTJa7JNu7FJ KqxPsrKmLyUJH1HiR2WGI 9nSMydB9lyMgz qmgdeV5fAxs+MDgvMjEvM Gf2ELtbuXJ+ENWeRDP6vK fhJWmrMFDvrD4sVZKqV1i 9BcPzNtW1DKxn X9FmPXIlvimfEr49uT8iP xOvEaB3FCmsC3ExatC1PD ZhkZMaMFfcYYL2N88yw5W 0LTMeANXhQLB8 rQH8bX8wdDhzemsqeOQry DsgdmVydGljYWwtYWxpZ2 46IHRvcDsnPjMyIFllYXJ aHC07IM60zRPm g1E4hOB7H0NdVXVtlwsaf zyvqCE2KAMmMTWvnG25sR SxABwgMb2mn0J2t765TAB lVMTsvM18Ci6l wCehWKOutCDJxF5bvadyw 9rqrofsMkYhCWNnPCo4TT h5CABtnPstOdJkJPP2OcH 0QZM1rAQnyW8r xUuqmxujeX5pWvw+RmVtY SedYV50RT94hBUcj3G8zB U8B9DeWONfbnlyxutmaDS 5YOTiHGFotB81 xEDoPTvmHw2oh2K6f033U TDvHQNyvP74Rd6eqFbuZN PdrEMWfK4dfmuip1yvwxo gIzAwMDAwMDt0 NDu4RVXsfYcwFuZhQJF7Z rW1IZG6sLXhhF4nrKntfq wlqP0hYbe+QS6wmxirieF 0OD24AD42S7Ge PjwvdGFibGU+PHRhYmxlI HdpZHRoPScxMDAlJyBzdH tfAC5fRa4nWWAaSWZgmKk ddELbWpErm3xc IIJrDYqpPE4adAjtU2Llk NR9MIUxx5w2Rf50K87jB5 JvdXA+XKAhwCW7pSR4bM5 cBnBmUkW5DEru D957JoMhjYYqBgeye5ouh 2cqwWy4NrQuLGIcrgJtcP zqWIC7q1ZgEn11U79pRWr pZHRoPSIyMCUi ZOMkuZreyu2fbN6uXf0+P DAwdHZ4aMO9hK2pLdOdUm Z5VRctU768OfAivDTpYhf hS38bH0XipYR+ OVSaNwz5LRRglFvzGR9zx VYgHXtnJl5uCJW6UaEmLb QhRVthR7QqBKAmafdtrls utDQ1DFQwUCLh nE32Im1ejUrrAe7ySJAvW WC1JCRvcWDeK5EjhM5xWt HgMBSwMFIaA1UiqAGaTQx nN008PMokZdH0 RYWbkiUcX6TwYYXnmVaxJ wS2y6D1Ic4OgWrmeKShBG 6pKoPsBRa0X1UwOfp4YAY yqFcbLX2qdZJx MXjsJb7edGasvRynKY3dC AUymnxrn077TxRxx9boHB JmjFIlLCykHAF5Q71vo1G 4QSSiJZAxERN1 ePA2pY1fjHcumpfneZFna DsgdmVydGljYWwtYWxpZ2 43IXFbgUaxPjXLOes2M7P rOcs3QPLbhFmh YS8mbZNxIQqcAj9woZmle HbxRO0fLKDcrxkkt964Of Qcz6oeOXZaoMDbCHfyVRI 3N01lf5K6BLZk LNZoYJO5gKF4xZ3wkEeiu jogbGVmdDsgdmVydGljYW edCYxlY459YTJntYcyFl7 IKad8A6MjUoj6 JGVktDbgRP5bvSFhERayV s1lxMuczZvwVO6gXFEdoe ixe716WzRrw0ppIASaoAR uBXaiVLK2W02o e2G2RSVfYSDoOYV1oCD8d B7vmXnxrkzvfTKuzBtnac TnkCyyOVquRZblS125GND vcDsnPlBheWVy OjwvdGQ+YC19eq29T5CgA jmkDlo0BROvFZJ3hTB4fN 3qBKPpKGmmp5Z3rXV4J0T isaRqqz7hi5on YXBz (more content not included)... Normal [facility] Coding Summary. CD:[id number]:[id number] G h0bWw+PGhlYWQ+LC7TCMC sB24oxJImfC7XB9pCIH5V IWABWTVCRI7ZVG9myKK8C UlgC0DzgjSi LcsfjINcQH92UGc0UUJ0j MzdYAelfN5ysHXhY5u6No DdRL01hA56DSxdFLShPgF 3LjZpbjsgbWFy L5zvMhBijPVmBgs+PHRhY mxlIHdpZHRoPScxMDAlJy EpkEpnYD9cXt5xWGGsVGS vbGxhcHNlOiBj o7mvWJIrXUqyMZ8kdPbdW 9LbxEC0JTVnj2p2Ly46aW I+IJOnBQT4cAxgVIfhm31 8RkUry3aiSCH8 fEKsCJgdLKE1C37zz9E7R QHaHSAlAKA1lBP3lD3dvM ljuyacC4JkvPJyNfM7SWU 0kVDhjY4leLtl zftpwK4kYfd+H91JXM6AR KCVYG8GKcf8R3PmPpqfiW I+AH46DABlJS20nJLrqPU tt4mokJd9UxSw XNLeDTR4qGxoKKjek7XhE FPxD25mfEExz2I7MTJvaX atcJXqOkWwdNS4bE8dFZq rtxvdt7fbrnsq Faibp9asck19wB71X74xA MkqKZSeWZG7LJOtPQGorM lzvq1skY1fYc8+XVdjt6k sn7cllAj1RuXr RHBmcxLjoSwnUGT8x5LkT g01R2FwjAwcl9LmJzo1yn 46pCZan9S8sMC2RTpwCPY qyL8bPOjuUbJ6 VCCnFjXueQ63jOSwCTdsX b6zrPcgtMreNQ9jYGXbhv tbBXJvqS4dRAQfgMYwiUl cWX9zYXCjpsyo p140BcOcQSQ4MEFdtTSzR 7QbsE9gXfBdKTUcTDQfP5 HvhJDkQAveX416NLqiUoZ 1FQRzpsNqJ7Yo PGGwuNhrVgM3j8O3Xd3Ae 1FchsfaVYM1ZFnbHCUzGq F6QoFiIpD1U4LaOoe2KKR vsGiuFO1tD0Br LAEygjlujllmyPT1VFHeL YZkcE46eEPlNAufRu6dh2 Q5j981QLPiCODhlV88Gs1 udDogMTBwdCBU fM3pmnnmc0befjzzIcJyG INmQZj2PAs0BCKdfEtyPd GyZLB2TzF7BEZ5gDJtrY9 kpHdghtzphQ2l Oyc+A46hwL6jGZJ0AXN4p nauIIHsxbRfHO28LE60V8 RyPjwvdGFibGU+PGRpdiB maDswQH7fMpBl y9irp9JfOHpiS3MfAEYpX BtqUja1SPMwEHL6nTM7sX 0lIBHeZNwmg6F3qNL0T9Q zzqVonl1jq4il BBAdIGpqO89maTNjo7W8Q POuqSR5GFRlaZfdJySahN 93Oyc+FSAitSwxt2WeEwd fc5ckq1qrvVm3 RyLjLKDufaVlhAbfEWD1k 7SmNy77A71cXTklCTSmRI UxXDZgPNDduYrhbm2ucD8 wIi8+PGNvbCB3 lBF2iU4rQYBbMkJ2AOcsD 458QjFdmFYdGmshe5ski4 aenJy1SrClQJZaqqTumDx sRZU8r2FqZn39 C44fOEdqABLdBVEbYBAfN GNrqSwmqz2flD7oEc1+PC 6cy1ypib89aJ15sLG+PHR hZBL5iZntNJps CZCcnG4xRTlfNdC8RVAoV qRfiC64sBOjORoxEs8yzF dsgKezDJ2kKKLkenrnm67 7NjZgb8jdBDVe xVGyZCgoLZG6S86eb2S7X QJtMSOmPDW6uGT6iI3wiL lnbjogbGVmdDsgdmVydGl cGYkwBLhjF198 IHRvcDsnPlBhdGllbnQgT fGxHTe3G9LzQcr4MHTlmM chOW0jrPGvSLzbJz5ttAf pyNykEX0hNSMa zcdrr752GjMnn7gpTHQah CTuBGqjFNE6A47dm5S9XB OhFYXkKFF2sIG7gM4pfDo nbjogbGVmdDsg jhVwnPydSPwgSSwxG078K HRvcDsnPkJpcnRoIERhdG Q2RL55CH38sLHzx1G9wRP 4O2XnUTJzlplz mvrewGP5BEXgKFLpvY53P e8vqCfsUe4uDQPeFAD5XK HepHVlO6CtwG5yIpMhDWO vDERqN3KboLEq KNudJ264XKenBxO9AEJqb wVzU4KoBBIksXwsHqE5h0 A8Mo8ZS0Z5FJ61VK81xEN fc6E8sLS5R6Bc MJKfhxikyxrgwSU0WOHnY TTvdL29Cs1qxNbuLt1jZW ZpSKN2EFJvoVWoM9ArpZ4 yOiAjMDAwMDAw Y2LmkQVbLKsvS343ETywU dE2MOObewGgZ4GvUKEcdW daPaE4n0B6Ay2DJWt4ZK8 3RQ83uDCtc2A1 tPO4P4JxTICfxggxalmvb ML4BUKoRCBqvI02Uo7xmZ yxYb2tHFGmNTY9PFWhvRG sB4VujZ7nOqVh LZRuGUObH6EhgPPnTOeaJ 848PDypWuI1ROIsrsGsM1 ZzLXFheVndSpL0h8O5Yd6 XQIBdXD94OGG9 jHH4US32TL49O4MsDrfky GFibGU+PHRhYmxlIHdpZH RoPScxMDAlJyBzdHlsZT0 sPb4bAWMyFXDh wBpvhAXnFvUcm0ifLRHvD UykPP9ahKlnG5VduUM2ZN Sfq4o2Yb94G06fA8HjlUP +UMMphGJ7iEH3 mI6jScYyYdX3FGxnM571Y pDrrFKcDvaob1cuz2fcaB l6TmS8XBPrveMvdQywVUL 4p6QfOc43O73i IHdpZHRoPSIxNSUiIHZhb Cdxsy0ycM6rLl6+PGNvbC T7dXZ3dE2kXxGjGuF1VGp nO719PwNybLQn Asuka1lfr0qeoIx6LzNsK RDrjpYzyJcoUYY4f3YcEr 85N2PoiSxhr5XdJmd9hg4 1jQJox2I3mKJ9 C5KtDUFyivjpcABouHgbR P0vFOUaejmvEWXgvP1dRC GwP9k5KjJlAoZ1FGhwM1S tygW2SOYuaYZm TKtxNDH1Y63hm6J6OZYlE WUdWYZ5sQA5gE4dqYnadt ogbGVmdDsgdmVydGljYWw rVGhyN596IHYr nZylAZGcnD0yTSArkOBwb WwiAU3kMMXdwfzjWw9SUQ eGXsqbLlEQW7jXMBWVXF8 7PE35pRSbx6Q0 bWF8V5StWRUlqhbvzduta IT0INGsBDBrnG31xHMmOO tpXd9sx6D3l757CKHnYFE gmO12Mn7yuLdf XERxjXFFiU4hzkhad0cpk kjaKwByXQEkRPb6CHu3EE FdoJgyYmOrBAK2VqV6WFG 1cBNrsM1xkLlc tyjwtN0eBsf+MDgvMjEvM Kt4YTbtuNG+ZHMkKFM3lC ujNOxiZNEmhS8gCXBxN1u 5EfKkPuS2VKvg K7JsJKXyrhohMx63mO6dY gBfKdV9SYbuI2QbyiD7BC KpqUWjAAkgQAC4W12ex2D 3FUPvOYLzTIK8 jNZ2iR4zdQwiquvilDAws DsgdmVydGljYWwtYWxpZ2 46IHRvcDsnPjMyIFllYXJ yDS91PO10rSBc f6R5nPR2Q1QhIRIbxuqjl puekZE8NIWqKFSklN96oG CvENpfRg6ot1B7u636GYZ dAZIdwW44Rb8z tPmpABElcIGJmU5jtptvi 6ybosbaWmJgKUBrPDa6UI s2MPQuoOlbDaCrINA9OdJ 9BJE4pNDpoJ3a mWiipfcqfC4mAux+RmVtY YlxBV49LD86eLYda1N4cS Z6R4BtKRCrgdbizqjjxLA 2DRXoRQMgrD76 zFQlSZryMp7ah8E2z831B XSoSWXobG16Xw1amYaoTY LrhNIZjW8ktlgcv3ygbvr gIzAwMDAwMDt0 QTc1JPBohSrpJhBdJXJ2Q yQ3QMW5xCMidW1rkFjaka tffI8mJxe+OG3kaevmeyH 8FV18IU96N7Zf PjwvdGFibGU+PHRhYmxlI HdpZHRoPScxMDAlJyBzdH jlXW6fCu6gBMAbBWWexSy idGYlVkNhu0kg XBRqFWcwKZ3mySfaZ6Pcd TH8TPNbm8w0Su24V56mK4 JvdXA+XYQgaKV6pHZ1yL0 vLkPoLsM7ZIbw P444TaOqrJQrHtuhr7jwv 8yaqSk6OjGmEUYnciFstZ vmZVU4p2UbYd36N84rWJn pZHRoPSIyMCUi LDRppIsnar9lnQ3pYn3+P NYykAE9dOL9zS8dKmNeWa N0DCffH289MpEeqWXpGag nZ32xI8IpeME+ EUOxJdt0JHGpiTbzOU9zx GKkJVubWr1fZSJ3EkRkTv UwPZwsL3YqBXLxxepbpzf waIF5EHCrZDXe vE93La8djGpvYh4lOAAvP GD3PKWodUTiO0McxF5eWj AzRNCvNGLqH9LluJCdXKq jX572LIgtPwI9 AKYgbhTaK1AxKSEvxWknY uR8s5O4Ge6WaKdpwFBcEL 5bOeFeYHe8Q1GqWos2ZFU syHjuFO3zjGLb QQhgTy1uhIaskXmvWW9iJ HRomuuhh339XhSmz3tiWL WhnPDoHSxpBBA5J09ma9H 2CDEhMFJeQUU4 kMI1pT5zbWjtgzolfOBmp DsgdmVydGljYWwtYWxpZ2 62PADckUvbReNKDol1I6V oRws9VKWzhThc XV0vsAJvLLblXx1ihQwoo WlxPV8mWHQkmfuxq158Bv Wia1fxKHWiuYMwHKwuAAK 0S39xs3F3GMQk DYQiFOI9xVB5dV4bgPsnq jogbGVmdDsgdmVydGljYW vwIQsiF907HCEjcRjwCn3 PFda6G2MgVze2 ODMmiLxiYF5efKIxXUzcE d7bgTcieMoyDG0fRZRayd eum814AwDyt3lqOIVcoOR vUFbgMSC5M37d r9I4QMIrCKGlZZA4iIB6h J4gcBygpqvcrAFhdNvoex JznUbfRTnkXWkvM594BOR vcDsnPlBheWVy OjwvdGQ+SE48jj35R7EfJ gaqHxl0MIPjZKC5aXL1oD 4iWLDyWYvsv1C9tIH2G1Y maiDrep0kg9wp YXBz (more content not included)... Normal [facility] Auto Diffon 03-12-2021 Basophils/100 WBC (Bld) 0.2 % Normal 0.0-2.0 [facility] Comment on above: Order Comment: Order Added by Discern Expert. Performed By: #### 2 346922, 8693207, 2904028, 4221037, 12513146, 57562846, 04535471 ####[facility] [address] [place] [address] Basophils/Leukocyte s Auto (Bld) [Pure # fraction] 0.0 E9/L Normal 0.0-0.2 [facility] Comment on above: Order Comment: Order Added by Discern Expert. Performed By: #### 2 407275, 7540134, 3300559, 5354999, 25278145, 75120631, 42664063 ####[address] [place] [address] Eosinophils/100 WBC (Bld) 0.0 % Normal 0.0-8.0 [facility] Comment on above: Order Comment: Order Added by Discern Expert. Performed By: #### 2 778913, 3893438, 5237398, 2641909, 73768226, 96232233, 70956538 ####[address] [address] Eosinophils/Leukocy jacinta Auto (Bld) [Pure # fraction] 0.0 E9/L Normal 0.0-0.5 [facility] Comment on above: Order Comment: Order Added by Discern Expert. Performed By: #### 2 112758, 9390597, 6905273, 0500582, 08713232, 69505917, 30515794 ####[address] [address] Lymphocytes/100 WBC (Bld) 19.4 % Normal 14.0-50.0 [facility] Comment on above: Order Comment: Order Added by Discern Expert. Performed By: #### 2 095114, 0998926, 1500866, 9240236, 23956566, 56174024, 96336332 ####[address] [address] Lymphocytes/Leukocy jacinta Auto (Bld) [Pure # fraction] 1.0 E9/L Normal 1.0-4.0 [facility] Comment on above: Order Comment: Order Added by Discern Expert. Performed By: #### 2 695729, 0509834, 5813983, 5825814, 54405418, 50384688, 08168085 ####[address] [place] [address] Monocytes/100 WBC (Bld) 6.9 % Normal 4.0-14.0 [facility] Comment on above: Order Comment: Order Added by Discern Expert. Performed By: #### 2 230199, 0678209, 8816911, 5206582, 51982310, 84067239, 56087713 ####[address] [place] [address] Monocytes/Leukocyte s Auto (Bld) [Pure # fraction] 0.3 E9/L Normal 0.2-1.0 [facility] Comment on above: Order Comment: Order Added by Discern Expert. Performed By: #### 2 822489, 3201449, 6644348, 7091834, 08831714, 44712859, 48622176 ####[address] [place] [address] Neutrophils/100 WBC (Bld) 73.5 % Normal 36.0-75.0 [facility] Comment on above: Order Comment: Order Added by Discern Expert. Performed By: #### 2 325762, 3609699, 7880772, 0940729, 87921805, 74343957, 48887028 ####[address] [place] [address] Neutrophils/Leukocy jacinta Auto (Bld) [Pure # fraction] 3.6 E9/L Normal 2.0-7.5 [facility] Comment on above: Order Comment: Order Added by Discern Expert. Performed By: #### 2 430150, 6229387, 7256574, 5751698, 34757850, 38742191, 25091789 ####[address] [place] [address] BMPon 03-12-2021 Creatinine [Mass/Vol] 0.8 mg/dL Normal 0.5-1.3 [facility] Comment on above: Performed By: #### 2 425584, 6085590, 1311832, 2955213, 00024646, 38555559, 94997327 ####[facility] [address] [place] [address] Urea nitrogen [Mass/Vol] 8 mg/dL Normal 5-21 [facility] Comment on above: Performed By: #### 2 457779, 3581786, 3134564, 5606219, 41916721, 42116993, 05814755 ####[facility] [address] [place] [address] Urea nitrogen/Creatinine [Mass ratio] 10 No Units Normal 10-20 [facility] Comment on above: Performed By: #### 2 998178, 4821991, 8586517, 2367971, 82828657, 61210915, 20326455 ####[facility] [address] [place] [address] Anion gap [Moles/Vol] 16 mmol/L Normal 6-16 [facility] Comment on above: Performed By: #### 2 581952, 7444675, 4805604, 5649425, 01874953, 95656529, 89613078 ####[facility] [address] [place] [address] Calcium [Mass/Vol] 8.3 mg/dL Low 8.9-11.1 [facility] Comment on above: Performed By: #### 2 275450, 1303486, 0427793, 0368600, 24262434, 30305650, 33260897 ####[facility] [address] [place] [address] Chloride [Moles/Vol] 99 mmol/L Low 101-111 [facility] Comment on above: Performed By: #### 2 720406, 7102651, 5564281, 8081897, 73215963, 51316571, 81220031 ####[facility] [address] [place] [place] [address] CO2 [Moles/Vol] 21 mmol/L Normal 21-31 [facility] Comment on above: Performed By: #### 2 086631, 3992301, 3715715, 9258597, 82779373, 61687080, 05961757 ####[facility] [address] [place] [address] Glucose [Mass/Vol] 127 mg/dL Normal 55-199 [facility] Comment on above: Result Comment: If t his glucose result represents a fasting glucose, interpretation should refer to the following reference range: 55-99 mg/dL Performed By: #### 2 924919, 4370809, 0330308, 4361453, 20257629, 58810589, 39178590 ####[facility] [address] [place] [address] Potassium [Moles/Vol] 3.5 mmol/L Normal 3.5-5.3 [facility] Comment on above: Performed By: #### 2 573173, 8160775, 3335385, 9095045, 28699100, 03842179, 41545203 ####[facility] [address] [place] [address] Sodium [Moles/Vol] 132 mmol/L Low 135-145 [facility] Comment on above: Performed By: #### 2 116963, 6192407, 7512105, 3704891, 52156704, 56876322, 37014190 ####[facility] [address] [place] [address] CBC w/ Auto Diffon Erythrocyte distribution width (RBC) [Ratio] 14.2 % Normal 10.9-14.2 [facility] Comment on above: Performed By: #### 2 150059, 8388972, 5219305, 6167064, 94379889, 06043390, 82968249 ####[facility] [address] [place] [address] Hematocrit (Bld) [Volume fraction] 39.9 % Normal 34.0-46.0 [facility] Comment on above: Performed By: #### 2 073262, 4597958, 7886757, 9068897, 37662588, 17599541, 63339059 ####[facility] [address] [place] [address] Hemoglobin (Bld) [Mass/Vol] 13.0 g/dL Normal 12.0-16.0 [facility] Comment on above: Performed By: #### 2 189508, 4369357, 6966369, 9832723, 92863912, 95621681, 26722870 ####[facility] [address] [place] [address] MCH (RBC) [Entitic mass] 27.3 pg Normal 27.0-34.0 [facility] Comment on above: Performed By: #### 2 689625, 6578875, 6509963, 4768738, 71425228, 80570050, 70488019 ####[address] [address] MCHC (RBC) [Mass/Vol] 32.7 g/dL Normal 31.4-36.0 [facility] Comment on above: Performed By: #### 2 238694, 0720010, 5596290, 0789719, 63737860, 08090380, 95267729 ####[address] [address] MCV (RBC) [Entitic vol] 83.4 fL Normal 80.0-100.0 [facility] Comment on above: Performed By: #### 2 327227, 7325301, 5565219, 3223421, 42121098, 33166819, 86632343 ####[facility] [address] [place] [address] Platelet mean volume (Bld) [Entitic vol] 7.8 fL Normal 6.4-10.8 [facility] Comment on above: Performed By: #### 2 421184, 6297235, 8044634, 3201603, 56653197, 92960172, 92824754 ####[address] [address] Platelets (Bld) [#/Vol] 188.0 E9/L Normal 150.0-500.0 [facility] Comment on above: Performed By: #### 2 [id number], 0526280, 7319164, 2726556, [id number], [id number], [id number] ####[facility] [address] [place] [address] RBC (Bld) [#/Vol] 4.8 E12/L Normal 4.3-5.9 [facility] Comment on above: Performed By: #### 2 321449, 1024998, 3097570, 8170729, 95684029, 85803544, [id number] ####[facility] [address] [place] [address] WBC corrected for nucl RBC Auto (Bld) [#/Vol] 4.9 E9/L Normal 4.0-11.0 [facility] Comment on above: Performed By: #### 2 978161, 1278257, 5965496, 8210419, 46775959, [id number], [id number] ####[facility] [address] [place] [address] CTA Cheston 03-12-2021 CTA Chest Exam Date/Time: [...] 370 Contrast amount in ml's: 79 Normal [facility] Consent for Treatmenton Consent for Treatment [id number] .00CD:127 Normal [facility] D-Dimeron 03-12-2021 Fibrin D-dimer FEU (PPP) [Mass/Vol] 586 [id number] Abnormal 215-500 [facility] Comment on above: Result Comment: Resu lts [...] infections Liver cirrhosis Performed By: #### 2 748838, 2461796, 7645585, 1240567, 14598128, 86763198, [id number] ####[facility] [address] [place] [address] Discharge Instructionson Discharge Instructions [id number] 1.00CD:127 Normal [facility] ED Clinical Summaryon 2020 ED Clinical Summary [place] [id number] ED Clinical Summary Person Information Name: ED MURPHY Judy/[facility] Age: 30 Years : 1990 Sex: Female Language: Guinean PCP: Tricia Dewey CNP Marital Status: Phone: [phone] MRN: Visit Id: Visit Reason: Fever; Diarrhea; [...] 03/12/2021 12:55:56 03/12/2021 12:55:56 03/12/2021 12:55:56 ADDRESS: [address] [place] [id number] PHYS DOC NOTES: MEDICAL INFORMATION: Prescriptions Given: New Medications [facility], [address] [place], [place] [id number], [phone] albuterol (albuterol CFC free 90 mcg/inh Inh [...] up: With: Address: When: Tricia Dewey [address] [place] [address], [address] [place] [address] Business (1) In 3 days DIAGNOSIS: COVID-19; Near syncope Normal [facility] ED Note-Physicianon 03-12-20 ED Note-Physician Basic Information [...] puff(s), Inhalation, QID, 8 gram, Refill(s) 0, [facility], 173, cm, 03/12/21 9:08:00 EST, Height/Length Dosing, 125, kg, 03/12/21 9:08:00 EST, Weight Dosing azithromycin, 250 mg, Oral, As Directed, Take two tabs by mouth on day one, then one tab daily, # 6 tab(s), Refills(s) 0, Pharmacy: [facility], 173, cm, 03/12/21 9:08:00 EST, Height/Length Dosing, 125, kg, 03/12/21 9:08:00 EST, Weight Dosing dexamethasone, 6 mg = 1 tab(s), Oral, Daily, X 7 day(s), # 7 tab(s), Refills(s) 0, Pharmacy: [facility], 173, cm, 03/12/21 9:08:00 EST, Height/Length [...] Tricia Dewey In 3 days [address] [facility], [address] [place] [phone] Business (1) Additional Instructions: Problem List/Past Medical [...] Past, denies, (more content not included)... Normal [facility] Comment on above: Result Comment: Elec tronically Signed By: Tal Gonzalez DO\.br\Date and Time Signed: 03/12/21 12:46 EST ED Patient Education Noteon 03-12-2021 ED Patient Education Note Normal [facility] ED Patient Summaryon 021 ED Patient Summary [address] [address] Patient Discharge Instructions Person Information Name: ED MURPHY Age: 30 Years Arrival Date: 03/12/2021 08:55:19 Discharge Diagnosis: COVID-19; Near syncope Primary Care Physician: Tricia Dewey CNP Provider Information Primary Provider: Tal Gonzalez DO Advanced Golf Course Manager:None The exam and treatment you received in the Emergency Department were for an urgent problem and are not intended as complete care. It is important that you follow up with a doctor, nurse practitioner, or physician?s office support assistant for ongoing care. If your symptoms [...] Follow-up Instructions: With: Address: When: Tricia Dewey [address] [place] [address], [address] [place] [address] Business (1) In 3 days In the event that this physician does not participate in your insurance network, please consult with your insurance company to find a nearby participating provider. Patient Education Materials: A MESSAGE TO ALL PATIENTS REGARDING OPIOIDS PRESCRIPTION OPIOIDS: WHAT YOU NEED TO KNOW Prescription opioids can be used to help relieve gnrwlcvf-ji-jebjqu pain and are often prescribed following a [...] be struggling with addiction, tell your health group care worker and ask for guidance or call [facility] National Helpline at 2-229-947-BFGI. a Source: Department of Health and [facility] (more content not included)... Normal [facility] PT & PTTon 03-12-2021 aPTT Coag (PPP) [Time] 30.8 second(s) Normal 25.1-36.5 [facility] Comment on above: Result Comment: Hepa rin therapeutic range (represented by Anti-Factor Xa activity of 0.2 - 0.4 U/mL) corresponds to PTT of 56.6 - 109.0 sec. Performed By: #### 2 565724, 0763780, 1793854, 3430461, 79940889, [id number], [id number] ####[facility] [address] [place] [address] INR Coag (PPP) [Relative time] 1.2 {INR} Invalid Interpretation Code [facility] Comment on above: Result Comment: INR results are specifically intended to assess patients stabilized on long-term Anticoagulation therapy suggested INR?s ?Less Intensive Anticoagulation? 2.0 ? 3.0 Conventional Range 3.0 ? 4.5 Performed By: #### 2 681236, 7798638, 7693715, 8427973, 80012792, 56044105, [id number] ####[facility] [address] [place] [address] PT Coag (PPP) [Time] 14.1 second(s) High 10.2-12.9 [facility] Comment on above: Performed By: #### 2 406392, 4228782, 9841627, 4716027, 83958642, 58657747, [id number] ####[facility] [address] [place] [address] Troponin 0 Hr.on 03-12-2021 Troponin I.cardiac [Mass/Vol] 3.90 pg/mL Low 10.10-27.10 [facility] Comment on above: Result Comment: The 95% CI (Confidence Interval) PPV (Positive Predictive Value) for myocardial infarction in females is 38 pg/mL, in males 51 pg/mL. The results should be used in conjunction with clinical conditions of myocardial infarction. (Access High Sensitivity Troponin I Instructions For Use, [employer], November 2017) Performed By: #### 2 772602, 3816251, 4637321, 2276091, 18222198, 81324746, [id number] ####[facility] [address] [place] [address] XR Chest Single Viewon 03-12 XR Chest [...] DO Transcribed by: ROBERT Technologist: FAUSTINA Shepherd [facility] eGFRon 03-12-2021 GFR/1.73 sq M.predicted among blacks MDRD (S/P/Bld) [Vol rate/Area] mL/min/{1.73_m2} Normal >=59 [facility] Comment on above: Order Comment: Order added by Discern Expert. Result Comment: eGFR is race adjusted. AA=. Performed By: #### 2 140437, 8708972, 1935741, 5752373, 73984177, 10506502, 72343470 ####[facility] [address] [place] [address] GFR/1.73 sq M.predicted among non-blacks MDRD (S/P/Bld) [Vol rate/Area] mL/min/{1.73_m2} Normal >=59 [facility] Comment on above: Order Comment: Order added by Discern Expert. Result Comment: Medical Receptionist nandini kidney disease could be indicated at eGFR's of less than 60 mL/min/1.73m2. Kidney failure is indicated at less than 15 mL/min/1.73m2. Performed By: #### 2 038886, 6102144, 3710227, 0571925, 80766469, 60478864, 73100126 ####[facility] [address] [place] [address] Consent for Treatmenton 0 Consent for Treatment [id number] .00CD:127 Normal [facility] Physician Orderon 03-10-2021 Physician Order [id number]# 1.00CD:127 Normal [facility] XR Chest 2 Viewson XR Chest 2 [...] Signed by: Jimmy Davis DO Transcribed by: DP Technologist: ISAAC Barrios [facility] Vital Signs Date Time Vital Sign Value Performing Clinician Oseas dobbins 10-14-2024 15:07-0400 Body mass index (BMI) [Ratio] 42.67 kg/m2 Aquiles Adrian DO Work Phone: [facility] 10-14-2024 15:07-0400 Body weight 129.18 kg Aquiles Adrian DO Work Phone: [facility] 10-14-2024 15:07-0400 Diastolic blood pressure 70 mm[Hg] Aquiles Adrian DO Work Phone: [facility] 10-14-2024 15:07-0400 Systolic blood pressure 110 mm[Hg] Aquiles Adrian DO Work Phone: [facility] 09-30-2024 15:47-0400 Body mass index (BMI) [Ratio] 42.37 kg/m2 Flower DE LA PAZ Work Phone: [facility] 09-30-2024 15:47-0400 Body weight 128.25 kg Flower DE LA PAZ Work Phone: [facility] 09-30-2024 15:47-0400 Diastolic blood pressure 80 mm[Hg] Flower DE LA PAZ Work Phone: [facility] 09-30-2024 15:47-0400 Systolic blood pressure 130 mm[Hg] Flower Otero PA Work Phone: [facility] 09-17-2024 10:49-0400 Body mass index (BMI) [Ratio] 41.97 kg/m2 Aquiles Adrian DO Work Phone: [facility] 09-17-2024 10:49-0400 Body weight 127.06 kg Aquiles Adrian DO Work Phone: [facility] 09-17-2024 10:49-0400 Diastolic blood pressure 70 mm[Hg] Aquiles Adrian DO Work Phone: [facility] 09-17-2024 10:49-0400 Systolic blood pressure 112 mm[Hg] Aquiles Adrian DO Work Phone: [facility] 08-27-2024 09:21-0400 Body mass index (BMI) [Ratio] 41.52 kg/m2 Flower Shanna PA Work Phone: [facility] 08-27-2024 09:21-0400 Body weight 125.7 kg Flower Garciaey PA Work Phone: [facility] 08-27-2024 09:21-0400 Diastolic blood pressure 70 mm[Hg] Flower Garciaey PA Work Phone: [facility] 08-27-2024 09:21-0400 Systolic blood pressure 120 mm[Hg] Flower Otero PA Work Phone: [facility] 08-01-2024 09:31-0400 Body mass index (BMI) [Ratio] 41.21 kg/m2 Aquiles Adrian DO Work Phone: [facility] 08-01-2024 09:31-0400 Body weight 124.74 kg Aquiles Adrian DO Work Phone: [facility] 08-01-2024 09:31-0400 Diastolic blood pressure 72 mm[Hg] Aquiles Adrian DO Work Phone: [facility] 08-01-2024 09:31-0400 Systolic blood pressure 112 mm[Hg] Aquiles Adrian DO Work Phone: [facility] 06-03-2024 14:49-0500 Body mass index (BMI) [Ratio] 40.58 kg/m2 Aquiles Adrian DO Work Phone: [facility] 06-03-2024 14:49-0500 Body weight 122.83 kg Aquiles Adrian DO Work Phone: [facility] 06-03-2024 14:49-0500 Diastolic blood pressure 72 mm[Hg] Aquiles Adrian DO Work Phone: [facility] 06-03-2024 14:49-0500 Systolic blood pressure 106 mm[Hg] Aquiles Adrian DO Work Phone: [facility] 05-02-2024 11:56-0500 Body mass index (BMI) [Ratio] 40.28 kg/m2 Aquiles Adrian DO Work Phone: [facility] 05-02-2024 11:56-0500 Body weight 121.93 kg Aquiles Adrian DO Work Phone: [facility] 05-02-2024 11:56-0500 Diastolic blood pressure 70 mm[Hg] Aquiles Adrian DO Work Phone: [facility] 05-02-2024 11:56-0500 Systolic blood pressure 110 mm[Hg] Aquiles Adrian DO Work Phone: [facility] 02-15-2024 14:26-0500 Body mass index (BMI) [Ratio] 41.77 kg/m2 Flower Otero PA Work Phone: [facility] 02-15-2024 14:26-0500 Body weight 126.46 kg Flower Otero PA Work Phone: [facility] 02-15-2024 14:26-0500 Diastolic blood pressure 80 mm[Hg] Flower Shanna PA Work Phone: [facility] 02-15-2024 14:26-0500 Systolic blood pressure 120 mm[Hg] Flower Shanna PA Work Phone: [facility] 02-12-2024 08:50-0500 Body mass index (BMI) [Ratio] 41.8 kg/m2 Aquiles Adrian DO Work Phone: [facility] 02-12-2024 08:50-0500 Body weight 126.55 kg Aquiles Adrian DO Work Phone: [facility] 02-12-2024 08:50-0500 Diastolic blood pressure 72 mm[Hg] Aquiles Adrian DO Work Phone: [facility] 02-12-2024 08:50-0500 Systolic blood pressure 118 mm[Hg] Aquiles Adrian DO Work Phone: [facility] Healthcare Encounters Encounter Date Encounter Type Care Provider Facility Start: 10-21-2024 End: 10-21-2024 Bamboo flowsheet Aquiles Adrian DO Work Phone: [facility] Start: 10-21-2024 End: 10-21-2024 Bamboo flowsheet Aquiles Adrian DO Work Phone: [facility] Start: 10-16-2024 End: 10-16-2024 Clinisync Result Encounter Aquiles Adrian DO Work Phone: [facility] Unsolicited Start: 10-16-2024 End: 10-16-2024 Clinisync Result Encounter Aquiles Adrian DO Work Phone: [facility] Unsolicited Start: 10-14-2024 End: 10-14-2024 flow sheet Aquiles Adrian DO Work Phone: [facility] Comment on above: 35 weeks gestation o f (HHS-HCC); Third trimester (HHS-HCC); Multigravida of advanced maternal age in third trimester (HHS-HCC); Excessive growth affecting management of , antepartum, single or unspecified fetus (HHS-HCC); Low iron; HSV infection Start: 10-14-2024 End: 10-14-2024 ambulatory AQUILES ADRIAN Not Available Start: 10-09-2024 End: 10-09-2024 Clinisync Result Encounter Aquiles Adrian DO Work Phone: [facility] Unsolicited Start: 10-09-2024 End: 10-09-2024 Clinisync Result Encounter Aquiles Adrian DO Work Phone: [facility] Unsolicited Start: 10-02-2024 End: 10-02-2024 Clinisync Result Encounter Aquiles Adrian DO Work Phone: [facility] Unsolicited Start: 10-02-2024 End: 10-02-2024 Clinisync Result Encounter Aquiles Adrian DO Work Phone: [facility] Unsolicited Start: 09-30-2024 End: 09-30-2024 flow sheet Flower DE LA PAZ Work Phone: [facility] Comment on above: Third trimester preg lakia ([facility]); 33 weeks gestation of ([facility]) Start: 09-30-2024 End: 09-30-2024 ambulatory FLOWER OTERO [...] PAZ Work Phone: [facility] Start: 08-27-2024 End: 08-27-2024 Bamboo flowsheet Flower DE LA PAZ Work Phone: [facility] Start: 08-27-2024 End: 08-27-2024 Clinisync [...] Start: 08-08-2024 End: 08-08-2024 ambulatory AQUILES R ADRIAN [facility] Start: 08-07-2024 End: 08-07-2024 Chart abstracting Scanning Provider External [facility] Start: 08-01-2024 End: 08-01-2024 flow sheet [...] flow sheet Aquiles Adrian DO Work Phone: [facility] Comment on above: Second trimester [...] Result Encounter Aquiles Adrian DO Work Phone: [facility] External Department Unsolicited Start: 05-02-2024 End: 05-02-2024 [...] Start: 04-11-2024 End: 04-11-2024 ambulatory Aquiles Adrian Facility:[facility] Start: 04-11-2024 End: 04-11-2024 Departed Referred Aquiles Adrian DO Work Phone: [facility] Start: 04-11-2024 End: 04-11-2024 Clinisync Result [...] Date Procedure Procedure Detail Performing Clinician Start: 10-16-2024 OB BPP W NON-STRESS Aquiles Adrian DO Work Phone: Start: 10-14-2024 Urnls dip stick/tabl et rgnt non-auto w/o micrscp Aquiles Adrian DO Work Phone: Start: 10-09-2024 OB BPP W NON-STRESS Aquiles [...] 03-15-2024 [facility] PREG QUANT HCG Core y Adiran DO Work Phone: Start: 03-13-2024 [facility] PREG QUANT HCG Core y Adrian DO Work Phone: Start: 03-11-2024 [facility] PREG QUANT HCG Core y Adrian DO Work Phone: Start: 03-02-2024 ALL PROGESTERONE Aquiles Adrian DO Work Phone: Start: 02-15-2024 IGP,APTIMA HPV,AGE GDLN Flower DE LA PAZ Work Phone: Plan of Treatment Date Care Activity Detail Author Start: 12-09-2024 Influenza vaccination Influenza Vacc ine [facility] Start: 10-21-2024 End: 10-21-2024 Patient encounter procedure 10/21/2024 2:00 PM EDT Routine [facility] [address] [place] [phone] Aquiles Campbell, DO [address] [place] [address] [facility] Start: 10-14-2024 End: 10-14-2024 Patient encounter procedure 10/14/2024 2:30 PM EDT Routine [facility] [address] [place] [phone] Aquiles Campbell, DO [address] [place] [address] [facility] Start: 10-14-2024 End: 10-14-2024 Professional / ancillary services management 10/14/2024 2:00 PM EDT Ancillary Procedure [facility] [address] [place] [phone] [facility] Start: 09-30-2024 End: 09-30-2024 [...] Routine [facility] [address] [place] [address] Aquiles Campbell, [address] [place], [place] [id number] [facility] Start: 09-17-2024 End: 09-17-2024 Professional / ancillary services management 09/17/2024 9:30 AM EDT Ancillary Procedure [facility] [address] [place] [address] [facility] Start: 08-27-2024 End: [...] 08/08/2024 8:00 AM EDT Appointment [facility] [address] [address] [place] [address] [facility] Start: 07-01-2024 End: 07-01-2024 Patient encounter procedure 07/01/2024 9:40 AM EDT Routine [facility] [address] [place] [address] Flower Otero PA [address] [place] [address] [facility] Start: 07-01-2024 End: 07-01-2024 Professional / ancillary services management 07/01/2024 8:30 AM EDT Ancillary Procedure [facility] [address] [place] [address] [facility] Start: 06-11-2024 End: 06-11-2024 Patient encounter procedure 06/11/2024 8:40 AM EST Office Visit [facility] [address] [place] [address] Aquiles Campbell, DO [address] [place] [address] [facility] Start: 06-03-2024 End: 06-03-2024 Patient encounter procedure 06/03/2024 2:20 PM EST Routine [facility] [address] [place] [address] Aquiles Campbell, DO [address] [place] [address] [facility] Start: 06-03-2024 End: 08-01-2024 [...] on above: Arrived Start: 04-11-2024 Urine culture [facility] Start: 04-11-2024 Bacteria identified in Urine by Culture Urine Culture [facility] Start: 04-11-2024 End: 04-11-2024 ambulatory 04/11/2024 1:00 PM EST Initial [facility] [address] [place] [address] [facility] Start: 04-11-2024 End: 04-11-2024 Professional / ancillary services management 04/11/2024 12:30 PM EST Ancillary Procedure [facility] [address] [place] [address] [facility] Start: 02-15-2024 End: 02-15-2024 Patient encounter procedure [facility] Comment on above: Arrived Start: 02-12-2024 End: 02-12-2024 Patient encounter procedure 02/12/2024 8:50 AM EST Office Visit [facility] [address] [place] [phone] Aquiles Campbell, DO [address] [facility] [address] [place] [address] Arrived [facility] Comment on above: Arrived Start: 2009 Screening for malign ant neoplasm of cervix Pap Smear [facility] Start: 11-29-2007 DTaP,Tdap and Td Vaccines (1 - Tdap) DTaP,Tdap and Td Vaccines (1 - Tdap) [facility] Start: 2006 Adult BMI Screening Adult BMI Screen ing [facility] Start: 2000 Depression Screening Depression Scre ening [facility] Start: 2000 Tobacco Screening Tobacco Screening [facility] CHLAMYDIA TRACHOMATI S (GENITO/STI) CHLAMYDIA TRACHOMATIS (GENITO/STI) Lab Routine STD exposure Ordered: 06/03/2024 [facility] Comment on above: Ordered: 06/03/2024 Cytology Cervical or vaginal smear or scraping study Pap Smear Pathology and Cytology Routine Well woman exam with routine gynecological exam Ordered: 02/15/2024 [facility] Work Phone: Comment on above: Ordered: 02/15/2024 Hemoglobin A1c/Hemoglobin.total in Blood Hemoglobin A1c Lab Routine Third trimester 28 weeks gestation of Size of fetus inconsistent with dates in second trimester Ordered: 08/27/2024 [facility] Comment on above: Ordered: 08/27/2024 Human papilloma viru s DNA [Presence] in Unspecified specimen by Probe with amplification HPV DNA probe, amplified Microbiology Routine Well woman exam with routine gynecological exam Ordered: 02/15/2024 [facility] Comment on above: Ordered: 02/15/2024 Neisseria gonorrhoea e DNA [Presence] in Unspecified specimen by LYNNETTE with probe detection Neisseria gonorrhea DNA probe, direct Lab Routine STD exposure Ordered: 06/03/2024 [facility] Comment on above: Ordered: 06/03/2024 SURESWAB(R) ADVANCED VAGINITIS PLUS, TMA SURESWAB(R) ADVANCED VAGINITIS PLUS, TMA Pathology and Cytology Routine STD exposure Ordered: 06/03/2024 [facility] Work Phone: Comment on above: Ordered: 06/03/2024 Payers Date Payer Category Payer Self-pay 2024 [employer] - [employer] [id number] 2023 [employer] Blue Shield 1.2.8 [id number] 2023 Unknown [id number] 1990 Unknown [id number] 2.16.840.1.450766.3.579. 2.593 1988 Unknown [id number] 2.16.840.1.136101.3.579. 2.593 1988 Unknown [id number] 2.16.840.1.265996.3.579. 2.593 1988 Unknown [id number] 2.16.840.1.143416.3.579. 2.593 1988 Unknown [id number] 2.16.840.1.892865.3.579. 2.593 1988 Unknown [id number] 2.16.840.1.998122.3.579. 2.593 1988 Unknown [id number] 2.16.840.1.407810.3.579. 2.593 1988 Unknown [id number] 2.16.840.1.654995.3.579. 2.593 1988 Unknown [id number] 2.16840.1.879124.3.579. 2.593 1988 Unknown [id number] 2.16.840.1.817696.3.579. 2.593 1988 Unknown [id number] 2.16.840.1.488283.3.579. 2.593 1988 Unknown [id number] 2.16.840.1.391431.3.579. 2.593 1988 Unknown [id number] 2.16.840.1.598031.3.579. 2.1286 1988 Unknown [id number] 2.16.840.1.493319.3.579. 2.1259 1988 Unknown [id number] 2.16.840.1.361492.3.579. 2.1259 1988 Unknown [id number] 2.16.840.1.944723.3.579. 2.1259 1988 Unknown [id number] 2.16.840.1.576364.3.579. 2.1259 1988 Unknown [id number] 2.16.840.1.599198.3.579. 2.9 1988 Unknown [id number] 2.16.840.1.937336.3.579. 2.9 1988 Unknown [id number] 2.16.840.1.062557.3.579. 2.9 1988 Unknown [id number] 2.16840.1.455360.3.579. 2.1258 1988 Unknown [id number] 2.16.840.1.229001.3.579. 2.1258 1988 Unknown [id number] 2.16.840.1.834591.3.579. 2.1258 1988 Unknown [id number] 2.840.1.198036.3.579. 2.1258 1988 Unknown [id number] 2.16840.1.162114.3.579. 2.1258 1988 Unknown [id number] 2.16.840.1.445737.3.579. 2.1258 1988 Unknown [id number] 2.16.840.1.852635.3.579. 2.9 1988 Unknown [id number] 2.16840.1.457090.3.579. 2.1258 1988 Unknown [id number] 2.16840.1.268549.3.579. 2.1259 1959 Private Health Insurance [id number] Unknown [id number] 2.16840.1.643095.3.579. 2.531 Unknown Erika BEST/MOLINA [id number] Social History Date Type Detail Facility Start: 12-01-2022 End: 08-07-2024 Tobacco smoking status COIS Never smoked tobacco [facility] Start: 08-24-2023 End: 10-14-2024 Alcoholic beverage intake Lifetime non-drinker (finding) [facility] Start: 12-01-2022 End: 02-12-2024 History of Social function [facility] Start: 12-01-2022 End: 02-12-2024 Tobacco use panel [facility] Start: 12-01-2022 Education 21 [facility] Start: 12-01-2022 Alcohol Comment Caffeine intake: non e [facility] Start: 1990 Sex assigned at Not on file N [facility] Start: 02-25-2024 [facility] Work Phone: Start: 04-12-2024 End: 08-05-2024 Sex Female (finding) [facility] Start: 1990 Sex Assigned At Female F [facility] Start: 08-07-2024 Tobacco use and exposure Smokeless tobacco non-user [facility] [facility] [facility] Medical Equipment Procedure Code Equipment Code Equipment Origin al Text Equipment Identifier Dates 1 strip by In Vi tro route Daily Use in the morning prior to breakfast, 1 hour after each meal for a total of 4times daily. [id number] Start: 07-25-2024 End: 08-27-2024 1 each by In Vit ro route Daily Use to check FSBS four times daily [id number] Start: 07-25-2024 End: 08-27-2024 Clinical Notes 02-12-2024 to 10-14-2024 Daniela Candelaria LPN - 10/14/2024 2:30 PM BRAIN Schmidt - 09/30/2024 3:30 PM Tracey Marcial LPN - 09/17/2024 10:20 AM BRAIN Schmidt - 08/27/2024 8:50 AM BRAIN Schmidt - 02/15/2024 2:00 PM EST Note Date & Type Note Facility 10-14-2024 History of Presen t illness Narrative Reason for Appointment: Patient ID: Ed Murphy is a 33 y.o. female who presents for Routine Visit Patient presents today for Return OB appointment. MEDICATIONS Current Outpatient Medications Medication Instructions Zefpamrt-Qeo-Yw-FA ( 1 + IRON PO) ALLERGIES Allergies Allergen Reactions Cefadroxil Hives Other Reaction(s): hives, Unknown Other Reaction(s): hives, rash Latex Itching Other Reaction(s): Itching Other Reaction(s): Hives Paroxetine Other Reaction(s): Unknown PROBLEMS Active Ambulatory Problems Diagnosis Date Noted Anovulation 12/02/2022 DUB (dysfunctional uterine bleeding) 12/02/2022 Menstrual disorder 12/02/2022 Missed menses 12/02/2022 Yeast infection 12/02/2022 31 weeks gestation of ([facility]) 09/17/2024 Third trimester ([facility]) 09/17/2024 Multigravida of advanced maternal age in third trimester ([facility]) 09/17/2024 Resolved Ambulatory Problems Diagnosis Date Noted Bleeding in early ([facility]) 12/02/2022 Past Medical History: Diagnosis Date Frequent UTI Herpes History of chlamydia 2008 History of depression 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 Exam conducted with a hearing aid repairer present. Vitals: Estimated body mass index is 42.67 kg/m as calculated from the following: Height as of 08/22/22: 5' 8.5 . Weight as of this encounter: 284 lb 12.8 oz. BP: 110/70 Patient's last menstrual period was 02/11/2024. ASSESSMENT & PLAN ICD-10-CM 1. 35 weeks gestation of ([facility]) Z3A.35 POCT urinalysis dipstick manually resulted 2. Third trimester ([facility]) Z34.93 POCT urinalysis dipstick manually resulted 3. Multigravida of advanced maternal age in third trimester ([facility]) O09.523 4. Excessive growth affecting management of , antepartum, single or unspecified fetus ([facility]) O36.60X0 5. Low iron E61.1 Patient presents today for a routine obstetrics appointment. Patient is currently 35w1d with a Estimated Date of Delivery: 11/17/24. Patient aware that Valtrex will be sent to [facility] for history of HSV. Patient will return to clinic in 1 week for routine OB appointment and GBS will be obtained at that time. Documented by Daniela Candelaria LPN... on behalf of: Aquiles Campbell DO documented in this encounter [facility] 09-30-2024 History of Presen t illness Narrative Reason for Appointment: Patient ID: Ed Murphy is a 33 y.o. female who presents for Routine Visit Patient presents today for Return OB appointment. MEDICATIONS Current Outpatient Medications Medication Instructions Alcohol Swabs (Alcohol Prep Pad) 70 % pads 1 Pad, Topical, Daily, Use four times daily to check FSBS. Blood Glucose Monitoring Suppl ([employer] Glucometer) w/Device kit 1 kit, Does not apply, Daily, Use four times daily to check FSBS. In the morning prior to breakfast & 1 hour after each meal for a total of 4times daily. Gxbxeqin-Ksi-Pj-FA ( 1 + IRON PO) ALLERGIES Allergies Allergen Reactions Cefadroxil Hives Other Reaction(s): hives, Unknown Other Reaction(s): hives, rash Latex Itching Other Reaction(s): Itching Other Reaction(s): Hives Paroxetine Other Reaction(s): Unknown PROBLEMS Active Ambulatory Problems Diagnosis Date Noted Anovulation 12/02/2022 DUB (dysfunctional uterine bleeding) 12/02/2022 Menstrual disorder 12/02/2022 Missed menses 12/02/2022 Yeast infection 12/02/2022 31 weeks gestation of ([facility]) 09/17/2024 Third trimester ([facility]) 09/17/2024 Multigravida of advanced maternal age in third trimester ([facility]) 09/17/2024 Resolved Ambulatory Problems Diagnosis Date Noted Bleeding in early ([facility]) 12/02/2022 Past Medical History: Diagnosis Date Frequent UTI Herpes History of chlamydia 2008 History of depression 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 2011 Personal history of other medical treatment ([facility]) [place] teeth removed HISTORY PAST MEDICAL HISTORY SOCIAL HISTORY Past Medical History: Diagnosis Date Bleeding in early ([facility]) 12/02/2022 Frequent UTI Herpes History of chlamydia 2008 History of depression no meds 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 Third trimester ([facility]) Z34.93 POCT urinalysis dipstick manually resulted 2. 33 weeks gestation of ([facility]) Z3A.33 Return OB: Patient presents today for [...] of: BRAIN Martinez documented in this encounter [facility] 09-17-2024 History of Presen t illness Narrative Reason for Appointment: Patient ID: Ed Murphy is a 33 y.o. female who presents for Routine Visit Patient presents today for Return OB appointment. MEDICATIONS Current Outpatient Medications Medication Instructions Alcohol Swabs (Alcohol Prep Pad) 70 % pads 1 Pad, Topical, Daily, Use four times daily to check FSBS. Blood Glucose Monitoring Suppl ([employer] Glucometer) w/Device kit 1 kit, Does not apply, Daily, Use four times daily to check FSBS. In the morning prior to breakfast & 1 hour after each meal for a total of 4times daily. iron polysaccharides (PROFE) 391.3 mg, Oral, Daily Nuhthtfs-Uyq-Zz-FA ( 1 + IRON PO) ALLERGIES Allergies [...] 2011 Personal history of other medical treatment [place] teeth removed HISTORY PAST MEDICAL HISTORY SOCIAL HISTORY Past Medical History: Diagnosis Date Bleeding in early 12/02/2022 Frequent UTI Herpes History of chlamydia 2008 History of depression no meds 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 Personal history of other medical treatment Frenectomy x2 [place] teeth removed Social History Tobacco Use Smoking [...] nursing note reviewed. Exam conducted with a hearing aid repairer present. 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 Patient going [facility] a trip [facility], she will return at 31 weeks. 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 Exam conducted with a hearing aid repairer present. Vitals: Estimated body mass index is [...] not cleared. Patient will be referred to [facility] for Level II Scan and consult if needed. Discussed patient upcoming vacation and precautions given. Patient will have growth scan start at 28 weeks gestation. Patient to return to clinic in 4 weeks. Patient to drop off FSBS results for routine in the meantime. Documented by Daniela Candelaria LPN on behalf of: Aquiles Campbell DO documented in this encounter [facility] 06-03-2024 History of Presen t illness Narrative Reason for Appointment: Patient ID: Ed Murphy is a 33 y.o. female who presents for Routine Visit Patient presents today for Return OB appointment. MEDICATIONS Current Outpatient Medications Medication Instructions Xplaplvk-Ajr-Fa-FA ( 1 + IRON PO) Progesterone 200 [...] 2011 Personal history of other medical treatment [place] teeth removed HISTORY PAST MEDICAL HISTORY SOCIAL HISTORY Past Medical History: Diagnosis Date Bleeding in early 12/02/2022 Frequent UTI Herpes History of chlamydia 2008 History of depression no meds 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 2011 Personal history of other medical treatment Frenectomy x2 [place] teeth removed Social History Tobacco Use Smoking [...] nursing note reviewed. Exam conducted with a hearing aid repairer present. Vitals: Estimated body mass index is [...] off on referral at this time. Discussed [facility] testing if patient desires to check for genetic testing and patient declines at this time as well. Obtained vaginal cultures without issue & patient to return to clinic in 4 weeks for routine OB appointment. Documented by Daniela Candelaria LPN on behalf of: Aquiles Campbell DO documented in this encounter [facility] 05-02-2024 History of Presen t illness Narrative Reason for Appointment: Patient ID: Ed Murphy is a 33 y.o. female who presents for Routine Visit Patient presents today for Return OB appointment. MEDICATIONS Current Outpatient Medications Medication Instructions Romoyorc-Xrp-Hl-FA ( 1 + IRON PO) Vit-Fe Wxhqywe-GB-GGY ( VITAMIN/MIN +DHA PO) Progesterone 200 MG [...] 2011 Personal history of other medical treatment [place] teeth removed HISTORY PAST MEDICAL HISTORY SOCIAL HISTORY Past Medical History: Diagnosis Date Bleeding in early 12/02/2022 Frequent UTI Herpes History of chlamydia 2008 History of depression no meds 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 2011 Personal history of other medical treatment Frenectomy x2 [place] teeth removed Social History Tobacco Use Smoking [...] of: ray martinez documented in this encounter [facility] 02-15-2024 History of Presen t illness [...] split. letrozole (FEMARA) 2.5 mg, Oral, Daily Iqtzokrk-Kak-Rv-FA ( 1 + IRON PO) Vit-Fe Azqqggh-KA-FVD ( VITAMIN/MIN +DHA PO) ALLERGIES Allergies Allergen [...] 2011 Personal history of other medical treatment [place] teeth removed HISTORY PAST MEDICAL HISTORY SOCIAL HISTORY Past Medical History: Diagnosis Date Bleeding in early 12/02/2022 Frequent UTI Herpes History of chlamydia 2007 History of depression no meds 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 Personal history of other medical treatment Frenectomy x2 [place] teeth removed Social History Tobacco Use Smoking [...] nursing note reviewed. Exam conducted with a hearing aid repairer present. Vitals: Estimated body mass index is [...] of: BRAIN Martinez documented in this encounter [facility] 02-12-2024 History of Presen t illness Narrative Reason for Appointment: Patient ID: Ed Murphy is a 33 y.o. female who presents for Infertility (Pt present today to discuss infertility) Patient presents today for Consult appointment. MEDICATIONS Current Outpatient Medications Medication Instructions Qwuxxilq-Ncn-Rs-FA ( 1 + IRON PO) Vit-Fe Kzofpjg-CX-YNO ( VITAMIN/MIN +DHA PO) ALLERGIES Allergies Allergen [...] 2010 Personal history of other medical treatment [place] teeth removed HISTORY PAST MEDICAL HISTORY SOCIAL HISTORY Past Medical History: Diagnosis Date Bleeding in early 12/02/2022 Frequent UTI Herpes History of chlamydia 2007 History of depression no meds 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 Personal history of other medical treatment Frenectomy x2 [place] teeth removed Social History Tobacco Use Smoking [...] nursing note reviewed. Exam conducted with a hearing aid repairer present. Vitals: Estimated body mass index is [...] Aquiles Campbell DO documented in this encounter [facility] Evaluation note Diagnosis Anovulation Female infertility associated with anovulation documented in this encounter [facility]* Diagnosis Well woman exam with routine gynecological exam Routine gynecological examination documented in this encounter [facility] noteNo assessment information availableH[facility] Work Phone: Evaluation note* Diagnosis First [...] of ([facility]) documented in this encounter [facility]* Diagnosis 35 weeks gestation of ([facility]) Third trimester ([facility]) state, incidental Multigravida of advanced maternal age in third trimester ([facility]) Excessive growth affecting management of , antepartum, single or unspecified fetus ([facility]) Low iron Unspecified iron deficiency anemia HSV infection Herpes simplex without mention of complication documented in this encounter [facility] HealthcareInstructionsNot on filedocumented in [facility] Purpose Family History No [...] section and content) DATE CREATED AUTHOR 07/05/2021 [facility] DATE CREATED AUTHOR AUTHOR'S ORGANIZ ATION 08/23/2022 [facility] DATE CREATED AUTHOR AUTHOR'S ORGANIZ ATION 04/19/2024 [facility] DATE CREATED AUTHOR AUTHOR'S ORGANIZ ATION 08/13/2024 [facility] DATE CREATED AUTHOR AUTHOR'S ORGANIZ ATION 10/18/2024 [facility] EPIC Reason for Visit [...] BE BASED ON THE PRIMARY CLINICAL RECORDS. [facility]. provides no warranty or guarantee of the accuracy or completeness of information in this document.
== END 2024-10-21 22:14 | disposition home or self-care (01) ==
LOC: LAB 22:13
PROVIDERS: Visit Provider Obstetrics & Gynecology
DX: Z34.93 Encounter for supervision of normal pregnancy, unspecified, third trimester (principal); Z3A.36 36 weeks gestation of pregnancy
CPT/HCPCS: 87081

== ENCOUNTER 2024-10-22 09:00 | Outpatient (OUT) | payer BC, SELFPAY ==
--- NOTE | 2024-10-22 | US_ITS ---
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 The reported gestational age is 36 weeks 2 days. The heart rate measures 142 beats per minute. FINDINGS: TONE: 1 or more episodes of activity extension and flexion of extremity or opening and closing of the hand [Y] 2/2 GROSS BODY MOVEMENTS: 3 or more discrete body or limb movements [Y] 2/2 BREATHING MOVEMENTS: 1 or more episodes of breathing lasting at least 30 seconds [Y] 2/2 RFANK: A single deepest vertical pocket of amniotic fluid greater than 2 cm [Y] 2/2 FRANK: 17.8 cm. This is in upper normal range. Total score: 8/8 US/US OB BPP w non-stress IMPRESSION: NORMAL BIOPHYSICAL PROFILE Impression dictated by: Alexus De La Torre M.D. 10/22/2024 10:04 AM Dictation Location: [place] [address] Electronically authenticated by: [id number] Y Date: 10/22/2024 10:04
--- OUTSIDE RECORDS SUMMARY | 2024-10-22 09:09 | XMS_ITS | CCD ---
Author Organization [facility] Care Team Providers Care Cardiopulmonary Specialist Name Role Phone ADRIAN ., DR KWAN [...] Facility (1 source) Cefadroxil Drug Allergy [facility] Repository (1 source) natural latex rubber Drug allergy (disorder) [facility] Repository (20 sources) Cefadroxil; Translations: [CEFADROXIL] Drug Allergy 3 Hives [facility] (20 sources) Latex; Translations: [LATEX] Allergy to substance 3 Itching [facility] (20 sources) PARoxetine; Translations: [PAROXETINE] Drug Allergy 3 [facility] (1 source) Latex Propensity to adverse reactions to drug 5 [facility] Medic[facility] Current Medications Medication [...] Daily 30 capsule 6 08/28/2024 09/27/2024 Active Tssepnxq-Hja-Wn-FA ( 1 + IRON PO) (20 sources) Tlslzfgg-Ehb-Va-FA ( 1 + IRON PO) Active vit,jorge [...] 150 each 3 07/25/2024 10/14/2024 Discontinued Vit-Fe Qwzcjvu-AJ-X CAI ( VITAMIN/MIN +DHA PO) (20 sources) Start: 06-09-2023 End: 06-03-2024 Vit-Fe Ntcafef-IX-P CAI ( VITAMIN/MIN +DHA PO) 06/09/2023 06/03/2024 Discontinued (Other) Start: 06-09-2023 Vit-F e Zegvazz-IU-CIW ( VITAMIN/MIN +DHA PO) 06/09/2023 Active Progesterone [...] OB BPP W NON-STRESS on 10-16-2024 [place] [address] Ultrasound Report Signed Patient: ED MURPHY MR#: [id number] : 1990 Acct:[id number] Age/Sex: 33 / F ADM Date: 10/15/24 Loc: US Attending Dr: Aquiles Campbell D.O. Ordering Physician: Aquiles Campbell D.O. Date of Service: 10/15/24 Procedure(s): US OB BPP w non-stress Accession Number(s): [id number] cc: Aquiles Campbell D.O.; Physician,Non-Staff Hussein [address] [address] Patient Name: ED MURPHY MRN: [facility]:[id number] date: 1990 Sex: F Assigned Patient Location: US Current Patient Location: Accession/Order Number: [id number] Exam Date: 10/16/2024 07:14 Report Date: 10/16/2024 [...] fluid greater than 2 cm [Y] 2/2 RFANK: 17.5 cm . This is in upper normal range. Total score: 8/8 US/US OB BPP w non-stress IMPRESSION: NORMAL BIOPHYSICAL PROFILE Impression dictated by: Alexus De La Torre M.D. 10/16/2024 7:15 AM Dictation Location: [place] [address] Electronically authenticated by: [id number] Y Date: 10/16/2024 07:15 Dictated By: Alexus De La Torre M.D. Signed By: 10/16/24716 DD/ 4 TD/TT: Residential Counselor: [facility] Radiology, Radiologist, MD - 10/16/2024 [place] [address] Ultrasound Report Signed Patient: ED MURPHY MR#: [id number] : 1990 Acct:[id number] Age/Sex: 33 / F ADM Date: 10/15/24 Loc: US Attending Dr: Aquiles Campbell D.O. Ordering Physician: Aquiles Campbell D.O. Date of Service: 10/15/24 Procedure(s): US OB BPP w non-stress Accession Number(s): [id number] cc: Aquiles Campbell D.O.; Physician,Non-Staff [facility] The [place] [id number] Patient Name: ED MURPHY MRN: [facility]:[id number] date: 1990 Sex: F Assigned Patient Location: Current Patient Location: Accession/Order Number: [id number] Exam Date: 10/16/2024 07:14 Report Date: 10/16/2024 [...] Torre M.D. 10/16/2024 7:15 AM Dictation Location: [email or web address] Electronically authenticated by: [id number] Y Date: 10/16/2024 07:15 Dictated By: Alexus De La Torre M.D. Signed By: 10/16/24716 DD/ 4 TD/TT: Residential Counselor: [facility] Radiology Study observation (narrative) [facility] OB BPP W NON-STRESS Ordered By: Radiologist Radiology on 10-16-2024 [facility] Work Phone: OB FOLLOW UP TRANSABDOMIN AL [...] UA Negative Negative - 4(70) +++ mg/dL [facility] Blood, UA Negative Negative - 50 Alex/mcL [facility] Clarity, UA Cloudy [facility] Color, UA Yellow [facility] Glucose, UA Negative Negative - 1999(110) ++++ mg/dL [facility] Interpretation and review of laboratory results Normal [facility] Ketones, UA Negative Negative - 160(16) ++++ mg/dL [facility] Leukocytes, UA Negative Negative - 500+++ Jodi/mcL [facility] Nitrite, UA Negative Negative - Positive [facility] pH, UA 6.5 5 - 9 [facility] Protein, UA Negative Negative - 1999(20) ++++ mg/dL [facility] Spec Grav, UA 1.01 1 - 1.03 [facility] Urobilinogen, UA 0.2 0.2 - 12 mg/dL [facility] US OB BPP W NON-STRESS on 10-09-2024 [place] [address] Ultrasound Report Signed Patient: ED MURPHY MR#: [id number] : 1990 Acct:[id number] Age/Sex: 33 / F ADM Date: 10/08/24 Loc: US Attending Dr: Aquiles Campbell D.O. Ordering Physician: Aquiles Campbell D.O. Date of Service: 10/08/24 Procedure(s): US OB BPP w non-stress Accession Number(s): [id number] cc: Aquiles Campbell D.O.; Physician,Non-Staff M.DAp The [address] [address] Patient Name: ED MURPHY MRN: [facility]:[id number] date: 1990 Sex: F Assigned Patient Location: US Current Patient Location: Accession/Order Number: [id number] Exam Date: 10/09/2024 07:51 Report Date: 10/09/2024 [...] Torre M.D. 10/09/2024 7:52 AM Dictation Location: [place] [address] Electronically authenticated by: [id number] Y Date: 10/09/2024 07:52 Dictated By: Alexus De La Torre M.D. Signed By: 10/09/24 0945 DD/ 0752 TD/TT: Residential Counselor: [facility] Radiology, Radiologist, MD - 10/09/2024 [place] [address] Ultrasound Report Signed Patient: ED MURPHY MR#: [id number] : 1990 Acct:[id number] Age/Sex: 33 / F ADM Date: 10/08/24 Loc: US Attending Dr: Aquiles Campbell D.O. Ordering Physician: Aquiles Campbell D.O. Date of Service: 10/08/24 Procedure(s): US OB BPP w non-stress Accession Number(s): [id number] cc: Aquiles Campbell D.O.; Physician,Non-Staff [place] [id number] Patient Name: ED MURPHY MRN: [facility]:[id number] date: 1990 Sex: F Assigned Patient Location: Current Patient Location: Accession/Order Number: [id number] Exam Date: 10/09/2024 07:51 Report Date: 10/09/2024 [...] Torre M.D. 10/09/2024 7:52 AM Dictation Location: [place] [address] Electronically authenticated by: [id number] Y Date: 10/09/2024 07:52 Dictated By: Alexus De La Torre M.D. Signed By: 10/09/24 0945 DD/ 0752 TD/TT: Residential Counselor: [facility] Radiology Study observation (narrative) [facility] US OB BPP W NON-STRESS Ordered By: Radiologist Radiology on 10-09-2024 [facility] [employer] Work Phone: US OB BPP W NON-STRESS on 10-02-[address] [address] Ultrasound Report Signed Patient: ED MURPHY MR#: [id number] : 1990 Acct:[id number] Age/Sex: 33 / F ADM Date: 10/01/24 Loc: US Attending Dr: Aquiles Campbell D.O. Ordering Physician: Aquiles Campbell D.O. Date of Service: 10/01/24 Procedure(s): US OB BPP w non-stress Accession Number(s): [id number] cc: Aquiles Campbell D.O.; Physician,Non-Staff Hussein [address] [address] Patient Name: ED MURPHY MRN: [facility]:[id number] date: 1990 Sex: F Assigned Patient Location: [facility] Current Patient Location: Accession/Order Number: [id number] Exam Date: 10/02/2024 08:04 Report Date: 10/02/2024 [...] Torre M.D. 10/02/2024 8:07 AM Dictation Location: [place] [address] Electronically authenticated by: [id number] Y Date: 10/02/2024 08:07 Dictated By: Alexus De La Torre M.D. Signed By: 10/02/24 0810 DD/ 6 TD/TT: Residential Counselor: [facility] Radiology, Radiologist, MD - 10/02/2024 [place] [address] Ultrasound Report Signed Patient: ED MURPHY MR#: [id number] : 1990 Acct:[id number] Age/Sex: 33 / F ADM Date: 10/01/24 Loc: US Attending Dr: Aquiles Campbell D.O. Ordering Physician: Aquiles Campbell D.O. Date of Service: 10/01/24 Procedure(s): US OB BPP w non-stress Accession Number(s): [id number] cc: Aquiles Campbell D.O.; Physician,Non-Staff [place] The [address] [address] Patient Name: ED MURPHY MRN: [facility]:[id number] date: 1990 Sex: F Assigned Patient Location: [facility] Current Patient Location: Accession/Order Number: [id number] Exam Date: 10/02/2024 08:04 Report Date: 10/02/2024 [...] Torre M.D. 10/02/2024 8:07 AM Dictation Location: [place] [address] Electronically authenticated by: [id number] Y Date: 10/02/2024 08:07 Dictated By: Alexus De La Torre M.D. Signed By: 10/02/2410 DD/ 6 TD/TT: Residential Counselor: [facility] Radiology Study observation (narrative) [facility] US OB BPP W NON-STRESS Ordered By: Radiologist Radiology on 10-02-2024 [facility] Work Phone: Urinalysis macro (dipstick) panel (U)on 09-30-2024 Bilirubin, UA Negative Negative - 4(70) +++ mg/dL [facility] Blood, UA Negative Negative - 50 Alex/mcL [facility] Clarity, UA Clear [facility] Color, UA Yellow [facility] Glucose, UA Negative Negative - 2000(110) ++++ mg/dL [facility] Interpretation and review of laboratory results Abnormal [facility] Ketones, UA Positive Negative - 160(16) ++++ mg/dL [facility] Comment on above: 15mg/dL Leukocytes, UA Negative Negative - 500+++ Jodi/mcL [facility] Nitrite, UA Negative Negative - Positive [facility] pH, UA 6 5 - 9 [facility] Protein, UA Negative Negative - 2000(20) ++++ mg/dL [facility] Spec Grav, UA 1.02 1 - 1.03 [facility] Urobilinogen, UA 0.2 0.2 - 12 mg/dL [facility] US OB BPP W NON-STRESS on 09-25-[address] [address] Ultrasound Report Signed Patient: ED MURPHY MR#: [id number] : 1990 Acct:[id number] Age/Sex: 33 / F ADM Date: 09/24/24 Loc: US Attending Dr: Aquiles Campbell D.O. Ordering Physician: Aquiles Campbell D.O. Date of Service: 09/24/24 Procedure(s): US OB BPP w non-stress Accession Number(s): [id number] cc: Aquiles Campbell D.O.; Physician,Non-Staff Hussein The [place] [id number] Patient Name: ED MURPHY MRN: [facility]:[id number] date: 1990 Sex: F Assigned Patient Location: US Current Patient Location: Accession/Order Number: [id number] Exam Date: 09/25/2024 07:56 Report Date: 09/25/2024 [...] Swartz M.D. 09/25/2024 7:58 AM Dictation Location: [place] [address] Electronically authenticated by: [id number] Y Date: 09/25/2024 07:58 Dictated By: Manuel Swartz D.O. Signed By: 09/25/24 0800 DD/ 0758 TD/TT: Residential Counselor: [facility] Radiology, Radiologist, MD - 09/25/2024 The [place] [id number] Ultrasound Report Signed Patient: ED MURPHY MR#: [id number] : 1990 Acct:[id number] Age/Sex: 33 / F ADM Date: 09/24/24 Loc: US Attending Dr: Aquiles Campbell D.O. Ordering Physician: Aquiles Campbell D.O. Date of Service: 09/24/24 Procedure(s): US OB BPP w non-stress Accession Number(s): [id number] cc: Aquiles Campbell D.O.; Physician,Non-Staff M.Dario [place] [address] Patient Name: ED MURPHY MRN: [facility]:[id number] date: 1990 Sex: F Assigned Patient Location: US Current Patient Location: Accession/Order Number: [id number] Exam Date: 09/25/2024 07:56 Report Date: 09/25/2024 [...] Swartz M.D. 09/25/2024 7:58 AM Dictation Location: [place] [address] Electronically authenticated by: [id number] Y Date: 09/25/2024 07:58 Dictated By: Manuel Swartz D.O. Signed By: 09/25/24 0800 DD/ 0758 TD/TT: Residential Counselor: [facility] Radiology Study observation (narrative) [facility] US OB BPP W NON-STRESS Ordered By: Radiologist Radiology on 09-25-2024 [facility] [employer] Work Phone: US OB FOLLOW UP TRANSABDOMIN [...] II, MD, PHD at 18-Sep-2024 08:23:43 AM [facility] Normal Not Available Comment on above: Order Comment: US OB SCAN FOR GROWTH Estimated Date of Delivery: 11/17/24 Gestational Age as of 08/27/2024: 28w2d Urinalysis macro (dipstick) panel (U)on 09-17-2024 Bilirubin, UA Negative Negative - 4(70) +++ mg/dL [facility] Healthcare Blood, UA Negative Negative - 50 Alex/mcL [facility] Clarity, UA Clear [facility] Color, UA Yellow [facility] Glucose, UA Negative Negative - 1999(110) ++++ mg/dL [facility] Interpretation and review of laboratory results Normal [facility] Ketones, UA Negative Negative - 160(16) ++++ mg/dL [facility] Leukocytes, UA Negative Negative - 500+++ Jodi/mcL [facility] Nitrite, UA Negative Negative - Positive [facility] pH, UA 7 5 - 9 [facility] Protein, UA Negative Negative - 1999(20) ++++ mg/dL [facility] Spec Grav, UA 1.01 1 - 1.03 [facility] Urobilinogen, UA 0.2 0.2 - 12 mg/dL [facility] MLR HEMOGLOBIN A1Con 08-27- 025 Glucose [Mass/Vol] 114 mg/dL [facility] HbA1c (Bld) [Mass fraction] 5.6 % 4.5 - 6.2 % [facility] Comment on above: ADA RECOMMENDED LIMI T 4.0 - 6.0 ADA THERAPEUTIC TARGET < 7.0 ACTION SUGGESTED > 7.0 [facility] Urinalysis macro (dipstick) panel (U)Ordered By: Daniel Pereira on 08-27-2024 Bilirubin, UA Negative Negative - 4(70) +++ mg/dL [facility] Work Phone: Blood, UA Negative Negative - 50 Aelx/mcL [facility] Work Phone: Clarity, UA Clear [facility] Work Phone: Color, UA Yellow [facility] Work Phone: Glucose, UA Negative Negative - 1999(110) ++++ mg/dL [facility] Work Phone: Interpretation and review of laboratory results Normal [facility] Work Phone: Ketones, UA Negative Negative - 160(16) ++++ mg/dL [facility] Work Phone: Leukocytes, UA Negative Negative - 500+++ Jodi/mcL [facility] Work Phone: Nitrite, UA Negative Negative - Positive [facility] Work Phone: pH, UA 6.5 5 - 9 [facility] Work Phone: Protein, UA Negative Negative - 2000(20) ++++ mg/dL [facility] Work Phone: Spec Grav, UA 1.015 1 - 1.03 [facility] Work Phone: Urobilinogen, UA 0.2 0.2 - 12 mg/dL [facility] Work Phone: [facility] Work Phone: US OB LIMITED 1+ [...] II, MD, PHD at 01-Aug-2024 11:20:36 PM [facility] Normal Not Available Comment on above: Order Comment: US OB INCOMPLETE ANATOMY Estimated Date of Delivery: 11/17/24 Gestational Age as of 07/08/2024: 21w1d RECURRENT VAGINITIS (HTRX)on 06-04-2024 ATOPOBIUM VAGINAE 0 [facility] ATOPOBIUM VAGINAE Not detected [facility] BVAB 2,3 (BACTERIAL VAGINOSIS ASSOCIATED BACTERIA 2, 3); MOBILUNCUS SPP 0 [facility] BVAB 2,3 (BACTERIAL VAGINOSIS ASSOCIATED BACTERIA 2, 3); MOBILUNCUS SPP Not detected [facility] NICA ALBICANS, PARAPSILOSIS, TROPICALIS 0 [facility] NICA ALBICANS, PARAPSILOSIS, TROPICALIS Not detected [facility] NICA GLABRATA 0 [facility] Healthcare NICA GLABRATA Not detected [facility] NICA KRUSEI 0 [facility] Healthcare NICA KRUSEI Not detected [facility] CHLAMYDIA TRACHOMATIS 0 [facility] CHLAMYDIA TRACHOMATIS Not detected [facility] GARDNERELLA VAGINALIS 29.376 Abnormal [facility] GARDNERELLA VAGINALIS Detected Abnormal [facility] Interpretation and review of laboratory results Abnormal [facility] MEGASPHAERA (TYPES 1, 2) 0 [facility] MEGASPHAERA (TYPES 1, 2) Not detected [facility] MYCOPLASMA GENITALIUM 0 [facility] MYCOPLASMA GENITALIUM Not detected [facility] NEISSERIA GONORRHOEAE 0 [facility] NEISSERIA GONORRHOEAE Not detected [facility] TRICHOMONAS VAGINALIS 0 [facility] TRICHOMONAS VAGINALIS Not detected [facility] OB 14+ WEEKS ANATOMY SCAN on 06-03-2024 [...] II, MD, PHD at 02-Jul-2024 09:56:12 AM [facility] Normal Not Available Comment on above: Order Comment: US OB ANATOMY SINGLE W US OB CERVICAL LENGTH Estimated Date of Delivery: 11/17/24 Gestational Age as of 06/03/2024: 16w1d Urinalysis macro (dipstick) panel (U)on 06-03-2024 Bilirubin, UA Negative Negative - 4(70) +++ mg/dL [facility] Blood, UA Positive Negative - 50 Alex/mcL [facility] Comment on above: trace-intact Clarity, UA Clear [facility] Color, UA Yellow [facility] Glucose, UA Negative Negative - 1999(110) ++++ mg/dL [facility] Interpretation and review of laboratory results Abnormal [facility] Ketones, UA Positive Negative - 160(16) ++++ mg/dL [facility] Comment on above: 15mg/dL Leukocytes, UA Negative Negative - 500+++ Jodi/mcL [facility] Nitrite, UA Negative Negative - Positive [facility] pH, UA 5.5 5 - 9 [facility] Protein, UA Negative Negative - 1999(20) ++++ mg/dL [facility] Spec Grav, UA 1.02 1 - 1.03 [facility] Urobilinogen, UA 0.2 0.2 - 12 mg/dL [facility] Urinalysis macro (dipstick) panel (U)on 05-02-2024 Bilirubin, UA Trace Negative - 4(70) +++ mg/dL [facility] Blood, UA Negative Negative - 50 Alex/mcL [facility] Clarity, UA Clear [facility] Color, UA Yellow [facility] Glucose, UA Negative Negative - 1999(110) ++++ mg/dL [facility] Interpretation and review of laboratory results Abnormal [facility] Ketones, UA Positive Negative - 160(16) ++++ mg/dL [facility] Leukocytes, UA Negative Negative - 500+++ Jodi/mcL [facility] Nitrite, UA Negative Negative - Positive [facility] pH, UA 6 5 - 9 [facility] Protein, UA Positive Negative - 1999(20) ++++ mg/dL [facility] Spec Grav, UA 1.03 1 - 1.03 [facility] Urobilinogen, UA 0.2 0.2 - 12 mg/dL [facility] ALL CBC WITH AUTO DIFFon BASOPHILS ABSOLUTE AUTO 0 [facility] Basophils/100 WBC (Bld) 0.4 % 0.2 - 2.0 % [facility] Eosinophils/100 WBC (Bld) 0.6 % Low 0.9 - 7.0 % [facility] Erythrocyte distribution width (RBC) [Ratio] 14.1 % 11.0 - 15.0 % [facility] Hematocrit (Bld) [Volume fraction] 40.6 % 36.0 - 48.0 % [facility] Hemoglobin (Bld) [Mass/Vol] 13.1 g/dL 12.0 - 16.0 g/dL [facility] IMMATURE GRANULOCYTES ABS AUTO 0.03 [facility] Immature granulocytes/100 WBC (Bld) 0.3 % 0.0 - 0.5 % [facility] Interpretation and review of laboratory results Abnormal [facility] LYMPHOCYTES ABSOLUTE AUTO 1.9 [facility] Lymphocytes/100 WBC (Bld) 19.1 % Low 20.5 - 60.0 % [facility] MCH (RBC) [Entitic mass] 27.9 pg 26.7 - 34.0 pg [facility] MCHC (RBC) [Mass/Vol] 32.3 g/dL 29.9 - 35.2 g/dL [facility] MCV (RBC) [Entitic vol] 86.6 fL 81.0 - 99.0 fL [facility] MONOCYTES ABSOLUTE AUTO 0.5 [facility] Monocytes/100 WBC (Bld) 5.4 % 1.7 - 12.0 % [facility] NEUTROPHILS ABSOLUTE AUTO 7.4 High [facility] Neutrophils/100 WBC (Bld) 74.2 % 43.0 - 75.0 % [facility] Platelet mean volume (Bld) [Entitic vol] 9.3 fL Low 9.5 - 13.5 fL [facility] EO # 0.1 [facility] PLT 380 [facility] RBC 4.69 [facility] WBC 9.9 [facility] US OB TRANSVAGINALon 025 OB TRANSVAGINAL TITLE [...] x 3.6 cm (8 weeks, 0 days). [place] rump length is 1.8 cm (8 weeks, [...] (U) No Growth 2 Days PERFORMED BY: [place] [address] PATHOLOGIST ORACLE ENDECA CONSULTANT TOSHA PÉREZ M.D. Normal [facility] Comment on above: Performed By: #### C UU #### [address] [facility] PREG QUANT HCGon 03-23- 024 HCG QUANTITATIVE 7110 mIU/mL [facility] Comment on above: 5-50 0.2-1 WEEK 50-500 1-2 WEEKS 100-5,000 2-3 WEEKS 500-10,000 3-4 WEEKS 1,000-50,000 4-5 WEEKS 10,000-100,000 5-6 WEEKS 15,000-200,000 6-8 WEEKS 10,000-100,000 2-3 MONTHS [facility] PREG QUANT HCGon 03-22- 024 HCG QUANTITATIVE 5107 mIU/mL [facility] Comment on above: 5-50 0.2-1 WEEK 50-500 1-2 WEEKS 100-5,000 2-3 WEEKS 500-10,000 3-4 WEEKS 1,000-50,000 4-5 WEEKS 10,000-100,000 5-6 WEEKS 15,000-200,000 6-8 WEEKS 10,000-100,000 2-3 MONTHS [facility] PREG QUANT HCGon 024 HCG QUANTITATIVE 2902 mIU/mL [facility] Comment on above: 5-50 0.2-1 WEEK 50-500 1-2 WEEKS 100-5,000 2-3 WEEKS 500-10,000 3-4 WEEKS 1,000-50,000 4-5 WEEKS 10,000-100,000 5-6 WEEKS 15,000-200,000 6-8 WEEKS 10,000-100,000 2-3 MONTHS [facility] PREG QUANT HCGon 024 HCG QUANTITATIVE 1345 mIU/mL [facility] Comment on above: 5-50 0.2-1 WEEK 50-500 1-2 WEEKS 100-5,000 2-3 WEEKS 500-10,000 3-4 WEEKS 1,000-50,000 4-5 WEEKS 10,000-100,000 5-6 WEEKS 15,000-200,000 6-8 WEEKS 10,000-100,000 2-3 MONTHS [facility] PREG QUANT HCGon 024 HCG QUANTITATIVE 420 mIU/mL [facility] Comment on above: 5-50 0.2-1 WEEK 50-500 1-2 WEEKS 100-5,000 2-3 WEEKS 500-10,000 3-4 WEEKS 1,000-50,000 4-5 WEEKS 10,000-100,000 5-6 WEEKS 15,000-200,000 6-8 WEEKS 10,000-100,000 2-3 MONTHS [facility] PREG QUANT HCGon 024 HCG QUANTITATIVE 184 mIU/mL [facility] Comment on above: 5-50 0.2-1 WEEK 50-500 1-2 WEEKS 100-5,000 2-3 WEEKS 500-10,000 3-4 WEEKS 1,000-50,000 4-5 WEEKS 10,000-100,000 5-6 WEEKS 15,000-200,000 6-8 WEEKS 10,000-100,000 2-3 MONTHS [facility] TBH PREG QUANT HCGon 03-11- 024 HCG QUANTITATIVE 59 mIU/mL [facility] Comment on above: 5-50 0.2-1 WEEK 50-500 1-2 WEEKS 100-5,000 2-3 WEEKS 500-10,000 3-4 WEEKS 1,000-50,000 4-5 WEEKS 10,000-100,000 5-6 WEEKS 15,000-200,000 6-8 WEEKS 10,000-100,000 2-3 MONTHS [facility] ALL PROGESTERONEon 03-03- 4 PROGESTERONE 9.3 ng/mL . [facility] Comment on above: Follicular phase 0.1 - 0.9 Luteal phase 1.8 - 23.9 Ovulation phase 0.1 - 12.0 First trimester 11.0 - 44.3 Second trimester 25.4 - 83.3 Third trimester 58.7 - 214.0 Postmenopausal 0.0 - 0.1 Performed at: [address] [id number] Car Pusher: Josr Jarvis PhD, Phone: [phone] [facility] IGP,APTIMA HPV,AGE GDLNon AGE GDLN ACOG TESTING Note . [facility] Comment on above: TESTS RESULT FLAG UN ITS REF RANGE LAB Clinician Provided Cytology Information Source.............Cervix;Endocervix No. of containers..01 ThinPrep Vial Age Algo ACOG Jacinta... 30-65 01 FLAG LEGEND: L-Low Normal,H-High Normal,LL-Alert Low,HH-Alert High <-Panic Low,>-Panic High,A-Abnormal,AA-Critical Abnormal Performed at: 01 =[address] [address] Stacey Tao MD, HPV APTIMA Negative Negative [facility] Comment on above: This nucleic acid am plification test detects fourteen high- risk HPV types (16,18,31,33,35,39,45,51,52,56,58,59,66,68) without differentiation. Performed at: =[address] [id number] Car Pusher: Stacey Tao MD, Phone: [phone] Performed at: [address] [id number] Car Pusher: Stacey Tao MD, Phone: [phone] IGP, APTIMA HPV, RFX 16/18,45 Note . [facility] Comment on above: TESTS RESULT FLAG UN ITS REF RANGE LAB DIAGNOSIS: 02 NEGATIVE FOR INTRAEPITHELIAL LESION OR MALIGNANCY. Specimen adequacy: 02 Satisfactory for evaluation. Endocervical and/or squamous metaplastic cells (endocervical component) are present. Performed by: 02 Ed Mancilla, Electronics Mechanic Apprentice (ASCP) . 02 Note: Note 02 The [...] <-Panic Low,>-Panic High,A-Abnormal,AA-Critical Abnormal Performed at: [address] [address] Stacey Tao MD, BRUSH-SPATULA CERVIX ENDOCERVIX [facility] DHEA-SULFATEon 08-23-2022 DHEA-Sulfate 352.0 ug/dL Normal 84.8-378.0 [facility] Comment on above: Performed By: #### L [facility] #### [facility] [address] [place] [address] Dr. Nam Keenan FSHon 08-23-2022 FSH 6.7 mIU/mL Normal [facility] Comment on above: Result Comment: Adul t Female: Follicular phase 3.5 - 12.5 Ovulation phase 4.7 - 21.5 Luteal phase 1.7 - 7.7 Postmenopausal 25.8 - 134.8 Performed By: #### L [facility] #### [facility] [address] [place] [address] Dr. Nam Keenan LUTEINIZING HORMONE (LH)on 0 08-23-2022 LH 13.7 mIU/mL Normal [facility] Comment on above: Result Comment: Adul t Female: Follicular phase 2.4 - 12.6 Ovulation phase 14.0 - 95.6 Luteal phase 1.0 - 11.4 Postmenopausal 7.7 - 58.5 Performed By: #### L [facility] #### [facility] [address] [place] [address] Dr. Nam Keenan CBC AUTO DIFFon 08-22-2022 BASO # 0.1 103/ul Normal 0.0-0.[address] [facility] Comment on above: Performed By: #### L BCLH #### [facility] [address] [address] [address] Nam Keenan Basophils/100 WBC (Bld) 0.7 % Normal 0.2-2.[address] [facility] Comment on above: Performed By: #### L BCLH #### [facility] [address] [address] [address] Nam Keenan EO # 0.3 103/ul Normal 0.0-0.[address] [facility] Comment on above: Performed By: #### L BCLH #### [facility] [address] [address] [address] Nam Keenan Eosinophils/100 WBC (Bld) 3.9 % Normal 0.9-7.[address] [facility] Comment on above: Performed By: #### L BCLH #### [facility] [address] [address] [address] Nam Keenan Erythrocyte distribution width (RBC) [Ratio] 13.3 % Normal 11.0-15.[address] [facility] Comment on above: Performed By: #### L BCLH #### [facility] [address] [address] [address] Nam Keenan Hematocrit (Bld) [Volume fraction] 38.7 % Normal 36.0-48.[address] [facility] Comment on above: Performed By: #### L BCLH #### [facility] [address] [address] [address] Nam Keenan Hemoglobin (Bld) [Mass/Vol] 12.4 g/dL Normal 12.0-16.0 [facility] Comment on above: Performed By: #### L BCLH #### [facility] [address] [address] [address] Nam Keenan IG # 0.01 10e3/ul Normal 0.00-0.[address] [facility] Comment on above: Performed By: #### L BCLH #### [facility] [address] [place] [address] Dr. Nam Keenan IG % 0.1 % Normal 0.0-0.[address] [facility] Comment on above: Performed By: #### L BCL #### [facility] [address] [place] [address] Dr. Nam Keenan LYMPH # 2.9 103/ul Normal 1.2-3.8 [facility] Comment on above: Performed By: #### L BCL #### [facility] [address] [place] [address] Dr. Nam Keenan Lymphocytes/100 WBC (Bld) 34.4 % Normal 20.5-60.[address] [facility] Comment on above: Performed By: #### L BCL #### [facility] [address] [place] [address] Dr. Nam Keenan MANUAL DIFF REQ NO Normal [facility] Comment on above: Performed By: #### L AMY #### [facility] [address] [place] [address] Dr. Nam Keenan MCH (RBC) [Entitic mass] 27.8 pg Normal 26.7-34.[address] [facility] Comment on above: Performed By: #### L AMY #### [facility] [address] [place] [address] Dr. Nma Keenan MCHC (RBC) [Mass/Vol] 32.0 g/dL Normal 29.9-35.2 [facility] Comment on above: Performed By: #### L BCL #### [facility] [address] [place] [address] Dr. Nam Keenan MCV (RBC) [Entitic vol] 86.8 fL Normal 81.0-99.0 [facility] Comment on above: Performed By: #### L BCL #### [facility] [address] [place] [address] Dr. Nam Keenan MONO # 0.6 103/ul Normal 0.3-0.[address] [facility] Comment on above: Performed By: #### L BCLH #### [facility] [address] [address] [address] Nam Keenan Monocytes/100 WBC (Bld) 6.7 % Normal 1.7-12.[address] [facility] Comment on above: Performed By: #### L BCL #### [facility] [address] [address] [address] Nam Keenan NEUT # 4.6 103/ul Normal 1.4-6.[address] [facility] Comment on above: Performed By: #### L BCL #### [facility] [address] [address] [address] Nam Keenan Neutrophils/100 WBC (Bld) 54.2 % Normal 43.0-75.0 [facility] Comment on above: Performed By: #### L BCL #### [facility] [address] [place] [address] Dr. Nam Keenan Platelet mean volume (Bld) [Entitic vol] 9.6 fL Normal 9.5-13.[address] [facility] Comment on above: Performed By: #### L BCL #### [facility] [address] [place] [address] Dr. Nam Keenan PLT 335 103/ul Normal 150-450 [facility] Comment on above: Performed By: #### L BCL #### [facility] [address] [place] [address] Dr. Nam Keenan RBC 4.46 106/ul Normal 4.20-5.[address] [facility] Comment on above: Performed By: #### L BCL #### [facility] [address] [place] [address] Dr. Nam Keenan WBC 8.5 103/ul Normal 4.0-11.[address] [facility] Comment on above: Performed By: #### L BCL #### [facility] [address] [place] [address] Dr. Nam Keenan FREE T4on 08-22-2022 Free T4 [Mass/Vol] 1.14 ng/dL Normal 0.76-1.46 [facility] Comment on above: Performed By: #### L BCLH #### [facility] [address] [address] [address] Nam Keenan GLYCOHEMOGLOBIN A1Con 2022 ADA RECOMMENDATION SEE BELOW Normal [facility] Comment on above: Result Comment: ADA RECOMMENDED LIMIT 4.0 - 6.0 ADA THERAPEUTIC TARGET < 7.0 ACTION SUGGESTED > 7.0 Performed By: #### A 1C #### [facility] [address] [address] [address] Nam Keenan Glucose [Mass/Vol] 97 mg/dL Normal [facility] Comment on above: Performed By: #### A 1C #### [facility] [address] [address] [address] Nam Keenan HbA1c (Bld) [Mass fraction] 5.0 % Normal 4.5-6.[address] [facility] Comment on above: Performed By: #### A 1C #### [facility] [address] [place] [address] Dr. Nam Keenan PREG QUANT HCGon 08-22-2022 HCG QUANT <[address] [facility] Comment on above: Performed By: #### P REGQNT, TSH #### [facility] [address] [address] [address] Nam Keenan HCG RANGE SEE BELOW Normal [facility] Comment on above: Result Comment: 5-50 0.2-1 WEEK 50-500 1-2 WEEKS 100-5,000 2-3 WEEKS 500-10,000 3-4 WEEKS 1,000-50,000 4-5 WEEKS 10,000-100,000 5-6 WEEKS 15,000-200,000 6-8 WEEKS 10,000-100,000 2-3 MONTHS Performed By: #### P REGQNT, TSH #### [facility] [address] [address] [address] Nam Keenan TSHon 08-22-2022 TSH 2.026 uIU/mL Normal 0.358-3.740 [facility] Comment on above: Performed By: #### P REGQNT, TSH #### [facility] [address] [place] [address] Dr. Nam Keenan PREG QUANT HCGon 05-27-2022 HCG QUANT 3 mIU/mL Normal [facility] Comment on above: Performed By: #### P REGQNT #### [facility] [address] [place] [address] Dr. Nam Keenan HCG RANGE SEE BELOW Normal [facility] Comment on above: Result Comment: 5-50 0.2-1 WEEK 50-500 1-2 WEEKS 100-5,000 2-3 WEEKS 500-10,000 3-4 WEEKS 1,000-50,000 4-5 WEEKS 10,000-100,000 5-6 WEEKS 15,000-200,000 6-8 WEEKS 10,000-100,000 2-3 MONTHS Performed By: #### P REGQNT #### [facility] [address] [place] [address] Dr. Nam Keenan CBC AUTO DIFFon 05-22-2022 BASO # 0.1 103/ul Normal 0.0-0.[address] [facility] Comment on above: Performed By: #### L BCLH #### [facility] [address] [place] [address] Dr. Nam Keenan Basophils/100 WBC (Bld) 0.7 % Normal 0.2-2.[address] [facility] Comment on above: Performed By: #### L BCLH #### [facility] [address] [place] [address] Dr. Nam Keenan EO # 0.2 103/ul Normal 0.0-0.[address] [facility] Comment on above: Performed By: #### L [facility]CL[facility] #### [facility] [address] [place] [address] Dr. Nam Keenan Eosinophils/100 WBC (Bld) 1.6 % Normal 0.9-7.0 [facility] Comment on above: Performed By: #### L BCLH #### [facility] [address] [place] [address] Dr. Nam Keenan Erythrocyte distribution width (RBC) [Ratio] 13.9 % Normal 11.0-15.[address] [facility] Comment on above: Performed By: #### L BCLH #### [facility] [address] [place] [address] Dr. Nam Keenan Hematocrit (Bld) [Volume fraction] 36.2 % Normal 36.0-48.[address] [facility] Comment on above: Performed By: #### L BCLH #### [facility] [address] [place] [address] Dr. Nam Keenan Hemoglobin (Bld) [Mass/Vol] 12.1 g/dL Normal 12.0-16.[address] [facility] Comment on above: Performed By: #### L BCLH #### [facility] [address] [place] [address] Dr. Nam Keenan IG # 0.03 10e3/ul Normal 0.00-0.[address] [facility] Comment on above: Performed By: #### L BCLH #### [facility] [address] [place] [address] Dr. Nam Keenan IG % 0.3 % Normal 0.0-0.[address] [facility] Comment on above: Performed By: #### L BCLH #### [facility] [address] [place] [address] Dr. Nam Keenan LYMPH # 3.9 103/ul Critically high 1.2-3.8 [facility] Comment on above: Performed By: #### L BCLH #### [facility] [address] [place] [address] Dr. Nam Keenan Lymphocytes/100 WBC (Bld) 38.0 % Normal 20.5-60.[address] [facility] Comment on above: Performed By: #### L BCLH #### [facility] [address] [place] [address] Dr. Nam Keenan MANUAL DIFF REQ NO Normal [facility] Comment on above: Performed By: #### L BCLH #### [facility] [address] [place] [address] Dr. Nam Keenan MCH (RBC) [Entitic mass] 28.0 pg Normal 26.7-34.[address] [facility] Comment on above: Performed By: #### L BCLH #### [facility] [address] [place] [address] Dr. Nam Keenan MCHC (RBC) [Mass/Vol] 33.4 g/dL Normal 29.9-35.2 [facility] Comment on above: Performed By: #### L BCL #### [facility] [address] [place] [address] Dr. Nam Keenan MCV (RBC) [Entitic vol] 83.8 fL Normal 81.0-99.0 [facility] Comment on above: Performed By: #### L BCLH #### [facility] [address] [place] [address] Dr. Nam Keenan MONO # 0.8 103/ul Normal 0.3-0.8 [facility] Comment on above: Performed By: #### L BCLH #### [facility] [address] [place] [address] Dr. Nam Keenan Monocytes/100 WBC (Bld) 7.6 % Normal 1.7-12.0 [facility] Comment on above: Performed By: #### L BCL #### [facility] [address] [place] [address] Dr. Nam Keenan NEUT # 5.4 103/ul Normal 1.4-6.5 [facility] Comment on above: Performed By: #### L BCL #### [facility] [address] [place] [address] Dr. Nam Keenan Neutrophils/100 WBC (Bld) 51.8 % Normal 43.0-75.0 [facility] Comment on above: Performed By: #### L BCLH #### [facility] [address] [place] [address] Dr. Nam Keenan Platelet mean volume (Bld) [Entitic vol] 9.1 fL Critically low 9.5-13.5 [facility] Comment on above: Performed By: #### L BCLH #### [facility] [address] [place] [address] Dr. Nam Keenan PLT 342 103/ul Normal 150-450 [facility] Comment on above: Performed By: #### L BCLH #### [facility] [address] [place] [address] Dr. Nam Keenan RBC 4.32 106/ul Normal 4.20-5.[address] [facility] Comment on above: Performed By: #### L BCLH #### [facility] [address] [place] [address] Dr. Nam Keenan WBC 10.3 103/ul Normal 4.0-11.[address] [facility] Comment on above: Performed By: #### L BCLH #### [facility] [address] [address] [address] Nam Keenan PROF CHEM 8 (BAS METB)on Anion gap [Moles/Vol] 12.1 mmol/L Normal [facility] Comment on above: Performed By: #### B MP #### [facility] [address] [place] [address] Dr. Nam Keenan Calcium [Mass/Vol] 8.9 mg/dL Normal 8.5-10.1 [facility] Comment on above: Performed By: #### B MP #### [facility] [address] [place] [address] Dr. Nam Keenan Chloride [Moles/Vol] 105 mmol/L Normal 98-[address] [facility] Comment on above: Performed By: #### B MP #### [facility] [address] [place] [address] Dr. Nam Keenan CO2 [Moles/Vol] 27.4 mmol/L Normal 21.0-32.0 [facility] Comment on above: Performed By: #### B MP #### [facility] [address] [place] [address] Dr. Nam Keenan Creatinine [Mass/Vol] 0.66 mg/dL Normal 0.55-1.[address] [facility] Comment on above: Performed By: #### B MP #### [facility] [address] [place] [address] Dr. Nam Keenan EGFR-AF NIUEAN >60 Normal >=60 [facility] Comment on above: Performed By: #### B MP #### [facility] [address] [place] [address] Dr. Nam Keenan EGFR-NON AF NIUEAN >60 Normal >=[address] [facility] Comment on above: Performed By: #### B MP #### [facility] [address] [address] [address] Nam Keenan Glucose [Mass/Vol] 105 mg/dL Normal 74-106 [facility] Comment on above: Performed By: #### B MP #### [facility] [address] [address] [address] Nam Keenan Potassium [Moles/Vol] 3.5 mmol/L Normal 3.5-5.[address] [facility] Comment on above: Performed By: #### B MP #### [facility] [address] [place] [address] Dr. Nam Keenan Sodium [Moles/Vol] 141 mmol/L Normal 136-145 [facility] Comment on above: Performed By: #### B MP #### [facility] [address] [address] [address] Nam Keenan Urea nitrogen [Mass/Vol] 7.0 mg/dL Normal 7.0-18.[address] [facility] Comment on above: Performed By: #### B MP #### [facility] [address] [place] [address] Dr. Nam Keenan Urea nitrogen/Creatinine [Mass ratio] 10.6 mg/mg Normal [facility] Comment on above: Performed By: #### B MP #### [facility] [address] [place] [address] Dr. Nam Keenan PREG QUANT HCGon 05-17-2022 HCG QUANT 532 mIU/mL Normal [facility] Comment on above: Performed By: #### L BCL #### [facility] [address] [place] [address] Dr. Nam Keenan HCG RANGE SEE BELOW Normal [facility] Comment on above: Result Comment: 5-50 0.2-1 WEEK 50-500 1-2 WEEKS 100-5,000 2-3 WEEKS 500-10,000 3-4 WEEKS 1,000-50,000 4-5 WEEKS 10,000-100,000 5-6 WEEKS 15,000-200,000 6-8 WEEKS 10,000-100,000 2-3 MONTHS Performed By: #### L [facility] #### [facility] [address] [place] [address] Dr. Nam Keenan US PREG TVon 05-13-2022 [...] ROOSEVELT LOPEZ Date: 2022-05-13 13:02 Normal [facility] PREG QUANT HCGon 04-28-2022 HCG QUANT 139 mIU/mL Normal [facility] Comment on above: Performed By: #### L AMY #### [facility] [address] [place] [address] Dr. Nam Keenan HCG RANGE SEE BELOW Normal [facility] Comment on above: Result Comment: 5-50 0.2-1 WEEK 50-500 1-2 WEEKS 100-5,000 2-3 WEEKS 500-10,000 3-4 WEEKS 1,000-50,000 4-5 WEEKS 10,000-100,000 5-6 WEEKS 15,000-200,000 6-8 WEEKS 10,000-100,000 2-3 MONTHS Performed By: #### L [facility] #### [facility] [address] [place] [address] Dr. Nam Keenan PREG QUANT HCGon 04-26-2022 HCG QUANT 50 mIU/mL Normal [facility] Comment on above: Performed By: #### P REGQNT #### [facility] [address] [place] [address] Dr. Nam Keenan HCG RANGE SEE BELOW Normal [facility] Comment on above: Result Comment: 5-50 0.2-1 WEEK 50-500 1-2 WEEKS 100-5,000 2-3 WEEKS 500-10,000 3-4 WEEKS 1,000-50,000 4-5 WEEKS 10,000-100,000 5-6 WEEKS 15,000-200,000 6-8 WEEKS 10,000-100,000 2-3 MONTHS Performed By: #### P REGQNT #### [facility] [address] [place] [address] Dr. Nam Keenan PROGESTERONEon 04-19-2022 Progesterone 12.6 ng/mL Normal [facility] Comment on above: Result Comment: Foll icular phase 0.1 - 0.9 Luteal phase 1.8 - 23.9 Ovulation phase 0.1 - 12.0 First trimester 11.0 - 44.3 Second trimester 25.4 - 83.3 Third trimester 58.7 - 214.0 Postmenopausal 0.0 - 0.1 Performed By: #### P KIAN #### [facility] [address] [place] [address] Dr. Nam Keenan PROGESTERONEon 04-16-2022 Progesterone 9.5 ng/mL Normal [facility] Comment on above: Result Comment: Foll icular phase 0.1 - 0.9 Luteal phase 1.8 - 23.9 Ovulation phase 0.1 - 12.0 First trimester 11.0 - 44.3 Second trimester 25.4 - 83.3 Third trimester 58.7 - 214.0 Postmenopausal 0.0 - 0.1 Performed By: #### L ANNE #### [facility] [address] [place] [address] Dr. Nam Keenan PROGESTERONEon 03-15-2022 Progesterone 6.2 ng/mL Normal [facility] Comment on above: Result Comment: Foll icular phase 0.1 - 0.9 Luteal phase 1.8 - 23.9 Ovulation phase 0.1 - 12.0 First trimester 11.0 - 44.3 Second trimester 25.4 - 83.3 Third trimester 58.7 - 214.0 Postmenopausal 0.0 - 0.1 Performed By: #### L AMYH #### [facility] [address] [place] [address] Dr. Nam Keenan PROGESTERONEon 02-15-2022 Progesterone 11.0 ng/mL Normal [facility] Comment on above: Result Comment: Foll icular phase 0.1 - 0.9 Luteal phase 1.8 - 23.9 Ovulation phase 0.1 - 12.0 First trimester 11.0 - 44.3 Second trimester 25.4 - 83.3 Third trimester 58.7 - 214.0 Postmenopausal 0.0 - 0.1 Performed By: #### P KIAN #### [facility] [address] [place] [address] Dr. Nam Keenan Coding Summary.on 03-30-2021 Coding Summary. CD:[id number] G h0bWw+PGhlYWQ+LO4QPJM iJ05rmKMmhX2YE4xWHH3F HGWPEFSKLC6RUV8mnGX3H YyjN0OtdrZy BkoepEOsUR77MZj0GUY7b CrmYBbzgF8rkQUhL8p2Tr FzDQ17hC29RGvqOOLiMtE 3LjZpbjsgbWFy C4thHnYnmDHkUpy+PHRhY mxlIHdpZHRoPScxMDAlJy ZtgYovHB6xWw0hPVFdIVZ vbGxhcHNlOiBj w6adVEWoDKtaSK1ohHyjQ 1TpuTV0POShu7k2Zk50yU I+OPPuRQC8pOfdOCmgf40 6KkBhf7ydOWK7 pMKfXDksBSA6Z86iq8N5F ZYgZLDjNPB8sUC1tT0gmS hbqmwjH1FmzRSmJfB6YWG 5iLDzrD9ahHxi viimrE5rCrq+S22XXF5UR PAYRJ7RXjk3X6KxNqfokM I+CJ64LAHrFA19jDGfvEA se3dsrEb2OaKr TZDmGBF6yWhhXJdyp8QaI MZvE32icFBbf2B0KTSbdR yimMNuQxVhqTQ1yE1fAUt hauqco3jecycw Hwhvu9auud15dV18B85xO JpnJJLuMXQ6KPLlLPZbxD ymgf7noB8cBn6+TFhdb8w nx3gavDq9SkJf LOKwwtZwmZvoMJN2k0OcN q92C2OfpYime4KbUlk6ko 34nFHfo6J0xOJ8RQqxYYH xeP8pFGuqFlM8 RXSzBkXzrY24dIIuBNmnG j5ucDtdfWilDD6sCPTgxe doHGAxoZ3wRYEmwCNktPr qMX9nKHSfgsos p979VmZaRSA5FYIrtAUlH 0LacZ6yRjTuTTVmZTIyK1 DwjQAbNKnfJ469GMdlWeA 5PRCkwxVzR6Ew RTRymVrvJlV6a5O4Aq7Is 4LbdledOKH5RJavTFZuSx XfHlSjQsW7A7ZzTfw0JKR wpPoqAF7fP9Ee FDRcuksqaneqeCQ5LHTpY GYxpZ80xPOjCYluQc8yw9 C0b762EQYpYYRswO36Fr7 udDogMTBwdCBU aF9xnkovi9jwksxmRsVtT PStWQi9LZx3NSTadXvzIh PqBCC4EoJ6WUO2yRQhdO2 kaHdpylzplF0r Oyc+N45akR7oBRX4DWK4c gjrPKSyfwUzLU46GK68R0 RyPjwvdGFibGU+PGRpdiB llVwhRP8qBjRf y5rig6DlYLdnK3YwAHKtD KoxLhv8UUWqGOU2dJP8fL 3dTBWgBPeje8F8dRV3D3R etlJoat5rj4ad EWOkZIqnG84eeYZba1X7J TUczGW6OKUsaOppYzDzaH 93Oyc+UAVnvXosb0KcRoa yn2pkk4hekVv1 UcFpJTOwdoBuvYtxAWN7x 1NkSv64Z18hFCgwCCRtZW CvDKRyKUJadDgijq2kwU2 wIi8+PGNvbCB3 mWO2gD8uTTFmIvI7DDmgE 151SqEnlZEjLhliy3kia5 iiwYw6DgZzOOSfraOumSi zHGE4o4QaHk24 G14kETlyKBFvCGObMKZhN TTckIeudx6afF6rCw1+PC 7hc0klmw93mK65qZS+PHR oGYU3aDveOJhp KQPflX0vEGlyWxF8LDAnV nCajU90nENaTKwzJs5jfE ojkOhbEH2oZSNapqchr27 7MbYgu5puYURv fIIcFZdeHAN1J14rw7N8B ERrEVZsESE7gZP6fV6loU lnbjogbGVmdDsgdmVydGl vNElvUFfbM330 IHRvcDsnPlBhdGllbnQgT kNhJGm7R8TsLyd8GQXmaW sgCK5qyLJrHNvgYk0hdSk czBzvSL8wQFQp wnhov932ZmRpl2rkOIYrs GRhDNxwWHA2R71va9Z0PB GxWVBsOUT0mTI8cS9eyIq nbjogbGVmdDsg rrNpaMroQMovNPquD921V HRvcDsnPkJpcnRoIERhdG D6YB40KL10tJAuc8N9xRI 8R9DqLQUkcqej hompxSW6WTHgRGYemI48S y7dmQllIp7rJCQfJBK0UG GlzCMdB1ZniT3rEvMwODC jTUQiA9BapYCt OHdmY415DGumOpW1MLMea rCnO6FeJLQysQbwMsW9o2 N3Gg8AZ0N4AM35OZ13fBM bk4I5cNU5R8Np MDCxympsjvrweHN3VFYkJ NQcgL66Oc7mtDhxIy3dID TrUQW5PUCawNKnL4VlzV4 yOiAjMDAwMDAw M6QwlXBzISuyE282XTanY yO6SSXazzCjI1KjCMMdoZ ewRcH0j5R3Ug8SBFq2VM7 3HB90kEHtj5O9 dMG2Y4LfSPYjrwgjifdsb CV3NTJbFMRngW39Ab2toP khNu1oRJNjHJS7XEEbrZN gR4LwxR2iDtQg LALzHXGnO8GulVOmGPwhN 210IXicIjQ9ZYJeozNuQ7 RgBLBojEjtMeZ1v0F2Fl5 EQLFbNH81YCG4 jIC8HH93AQ83A7NvBcnkt GFibGU+PHRhYmxlIHdpZH RoPScxMDAlJyBzdHlsZT0 pUa4aDIQwJQIx sTaniRPuCdBgr3yuHCJjW OpqGC7gvDdxT5GtdAV9UW Oiq2z2Lt56R89kJ8GouUJ +PIPutJM0sMW2 uW8nOuGpFsH7TQpiC434B bVvkHRdXyvrg2okq4uhiP h4TwD7PNMwscAiyTujDAO 5x4SoWo76H56f IHdpZHRoPSIxNSUiIHZhb Mhlug4psA8eYp5+PGNvbC A4uUW3zZ0kJbWdChX3CCi mI581HxWxdUXq Uaewf8fad9afcHg8RkLfX BQdbiGryBbvQHA3j8NxUr 38A1TnbVcyz1MlOmc5xh3 0xTAbq1U3iFV6 T2ZbSIInkbwcjIKirVftU I8nQTTszdytMBFvmC4mIL JdJ3g4RtIcFtL2JCftK3R mbdA0CZTorVUs SCwyZSN9X47lo9L7VLJjP IJwPYS6dRL0hE2kmHxuoc ogbGVmdDsgdmVydGljYWw dXPowD100YOZa dQevOGRyfM6zQQLnrXPkh TenZY2fVTPndiyhJb8FWU tKYkzbBjFBI6nKLPPQJP1 3FZ99uRBff8W6 wQK1C5TgQICtrczrynplz VB8TTMcMHYdnE69uUFnFA xyNy4zv9S2n089YLObSBC ldC80Ha9jfYsc AOZrdJJRlP0mjylxb6tpz pfySbNeKHYfUZa9OBp0JS UtzAkcPaDjOCS1KnQ5HAX 1zFKoiJ8svYet nvosoM5uSac+MDgvMjEvM Zy3HInzwSJ+IARpUSZ0rB qzNItaTTGnoM6uIMCnN7t 2VcSxDsV1UPuu K2FcPZSzcwzbTz38lD5zI uOrNxD6COqoE8UzfbL1EK EjrAQySRvmHXU6C41ex4I 4JGZaOPWuQQI2 iPE7dG3qqHlewsmbiUUzr DsgdmVydGljYWwtYWxpZ2 46IHRvcDsnPjMyIFllYXJ eBE29SQ11sSMm w0J4jWH6G6EkIRUkqdvzq vzlpPR2MWTmJWTmmQ09aF NsEHwtUn6za7V7u615URC pJYXadF54Ts2g nWzaZRQtjAIOdI3fdcsda 0iarauwYlPoOCOcXVw0BU z3YJUojXraMqVfMZD1QdI 4CFV7aFRgiM1c aGemmmgauD7pIqg+RmVtY CjmVF14YU24kUPdj0D2zY N5R9BcGBFkcoprnudnfRO 2FRIvDGOhyS42 pFNwSYitAk2ei4Y5v696V MFqRGFikH06Sy7hgIcdHL SxmOUOrI0zpoiwo4vxpun gIzAwMDAwMDt0 HOm3ILMjxSrnSuPhMKH4F sE1LTW4nVEeiB5hxWkgcf nnnB7iMdv+S5Y7cSB9iGS udDwvdGQ+PC90 xl29Q9ZzKfqqHsp1NEEuJ PJ9eWX9cU4dUJTlSIxbn1 F7lMT3X2HrfePreq2ry7r uLXTjZCwmO78c sJGts1K4GWFizFQ1FVNcc VomWpJqxF70Olm+PGNvbG zni3FmHgomq9ddc0bjpYd 9IjMwJSIgdmFs kXkkHVD6c6BuWo00Q34hP HdpZHRoPSIzMCUiIHZhbG yxsd7caD4yVc0+PGNvbCB 7aMH8jZ1hLvQc JxK5JCpuN049EzFgfHOxT xbxa0gsl3lsgUz0TkVjGC ZobmCkpIcpXUG4o3CnHv2 8C2UnhXpdf2Hs Qav3tw87yGDzc7T5pEC5A 3BhZGRpbmctbGVmdDogMC 0eTFVqplwzMWAhvU3kDTC yH4j5UnZuKcC9 HLngZ6QtowU4QIWbrZYiW PXvfAGHaR8etbsbv9nbix prVjDcUARkQOu7MUg3YQD saWduOiBsZWZ0 WvA7HVC0xWYvwO5zxSeig kcdyB8gWhu+WDe8i9aooK DeRU5mcAI7CD21TR68gRS nn3O5sFJ6H2Yt UFPucbgvihspyXG0RFAuC CRahK18Et7yaZjoOf6fAV IbFKG6NRDrtYNyJ4OsfX5 yOiAjMDAwMDAw Y4TnjEHrIVrzX725GCryF yT0MCXsluIrT2SrILWxvZ vjDjG6y7J1Bl8SWX59AD8 4HD67sBBuv5B1 lOD8O2EiACAlpacdhjdkc DE8XHMoGADsvX51Tc0orC sdGz6nCUUiGBH0CGCudZX zZ1ExwB5gYcDp OTRsNFUzU3WggUSqEMbzP 448VYmsHsW2GAWidbCyI2 JkNRUrrPqrGrJ6e6S7De9 HMm45II58OU34 zEJpx4L7rKF1S1KxGBSed anqqykctKL5KIVzVVTanX 71Ts4hmGwfAt3hWBIfDKH 7WODymLQdL1Bd sV0bZdLvUGUdIGBwQ4Air QYmJXutC191NTkwFhP2WN MkfcKuO3DjMVXbhNxgYqI 9n6A1Qd3KOLbc uid2Q6OoKjkqfAT+PC90Y ZScYK40vCWhvKIrh2xnnB x0KiBrGRMcIPI1mAxdZQy ve8CgTNLtK92p bGFw (more content not included)... Normal [facility] Coding Summary.on 03-18-2021 Coding Summary. [id number] G h0bWw+PGhlYWQ+OH8PZAT dG65kgYInhS3CJ0eBVS2U QCOTNOFIWC7PNZ9wmTI5U DdlW0MnoiYi RubdzFEsJG83JYb5ZRE9k JyiWEnteJ5atKHvT5c9So VqKM07uT76GFtqVPQcOuL 3LjZpbjsgbWFy F2kyBbWrvVRlAvl+PHRhY mxlIHdpZHRoPScxMDAlJy BhlUqzGV8sWa2xGGLzCHJ vbGxhcHNlOiBj q4afAUBmLHruQA3raWnhN 1RkcOZ1UZFgs6i3Yp84iX I+BQSwEFA9eIpeBUvcc86 9WgNin7ksOQE8 hHKfMEoqGKW1E51ne7G0J NMsAUSeOUQ3uPH1tV7nfF lbklexN6ZhuFDqZyQ6ELA 0qJYvgY9rlZxq kgebhF1lYuu+O85SEY0DL MZRIT0LSyd3E1WuKphxgO I+JH93SXNxSP80fFWzbDM ja2okqLd7QtKm IKQwOQL3pEczXFtit8SmY WCxH35msDLac1A8YDXweB ebxVTxSuVwoGK9xB9lIUk hterfw7zupfhs Jchml8ijad71qD49P37wH KagUNAaBGF8DUUeSQXksM huuf2flV7iFd8+UTbhe2y eh0bkbEg9DhQi TUZiveMxvOonZVM0v6IgG j86C3GdjMyjn5FiBdk5zh 99bMXqt4P5sYW2HNczEGN dmO0eOSqoKtO7 IMXhQtTuzP05qCRqRBdkK b5vfVxzjPumOY5yODFlgk fnXXDqpZ3yFEUejMOanWs aIX6bSATxheua l606DsNcFTP5FXPtsYNbG 0SbsZ4bHfSxSARwUDJyR5 KkgXCsDKgaH982CStbUyO 1MNWqsvEvX6Cp WMRjeDsgRjI5u5G1Yu8Rt 6FxjostSZH6CTxgVDDvFr H0NfUdXrI3F2LdVeh3YTC mhYztRP5oP3Mb OUDpvvqqecfgmOL5QIVpB AOzvR09qZGkBDfxCc2gp4 I8p137VOOaANBxzZ71Zr2 udDogMTBwdCBU gS7rcdlve7njfmniBtJuB IMvVMi8YIr1UQJqlAgoJe SsDZF9YfQ5PGL3kVRdoC3 isLpaeltbnP6n Oyc+U41qpQ4tGPD3CPN0j ylzLEBpriFnMB88AK35T6 RyPjwvdGFibGU+PGRpdiB njWasVJ5gAgKb v8byd3JyAZbzJ5JfZKByF RhuInb7NPVbMJX0bUG7xJ 1zKTClLKksr4N0sPP1V1W vbvGsuz7te2ch TPWhBMegH72fyFKgl7C1Q KXquQT9UTDvoBwkXkRxlN 93Oyc+KZGscQzsp2UbIbm xm2tgk3rkfPb8 XzXgWHCvzrKynJylQLE5d 4MyGn25J17fDLfnQOUgXJ TaRRYuPHXbuQcqor8ygC2 wIi8+PGNvbCB3 hEL7lW2aUFEfRuI1IGqoY 768AsYswTQePrrbl7oot1 rajHy7MgQlBPVlanZukEg qRKV4p1SkMw81 X15gACpqEHFhGMJhLDMmY UJicJtcgy1cmZ7yRc1+PC 0mj0ippj86yT16zJX+PHR cPWI1fZihSXdq DATkzC1gWEzcUhJ3EEYcH kDgbP11sFTpAUufEh6oqQ rujUjaAF0xIZTqdcsqo32 8RsNry3huJDJx cQFpDMcvHJB7Q26ji3B6U FGfALDjYXN6aWF2hQ1alP lnbjogbGVmdDsgdmVydGl lIKkmOCvaS155 IHRvcDsnPlBhdGllbnQgT dXwBMf5G5EaEjg2EEMsgV fuYZ4apZGaZToxCp7pcGt zrCdxKJ4fGTOe rfenx740DgUov3iaWIWzp KGnYJsgJDX1O99om9D5VY TnZZAfTTG6wUZ5mD9ifFe nbjogbGVmdDsg qoTbfBcfGSdnUNgbP167J HRvcDsnPkJpcnRoIERhdG Z0NG20QO30mDSnm6R4mVZ 8H0MiJUBczwva wumdvHQ5JWLdFDNgrK79L f2cxTklIc5yPLQtQSM2ZT GsdRSbK2XtrX1pXrQjZLT jHCVzQ6FryLSj QNavZ146HHxnJjN7GOYgn vPfU8BpXTSsxIbgCbH9m3 O7Pn4XP3L1NM98NZ14jVH dc9Z9aVV4V6Tq TBBnkgotbfzhzBO0FTVfR YRgbZ50Um2crWfgFy4eEE QvGNL8HAObpJVkF0QzgK4 yOiAjMDAwMDAw W3LuyVJdOTkvU265NCjgI eH6OZKbvcWzJ4NqGIBhkM aqCsJ3v8O6Ts3JBMq9VC3 8HZ36hRGnw1B4 oGW0O5AnMJTdkmmxwuqav XK9MGJkYNVgqU57Ur0qoC ewHw5sRXPjZNI3TZXeqYV hF9EcyY2xNqTh WQGgMZSlR2IgbLWtARicA 714IWjqElG2KJZwsdHsV3 CeVPBkvFrcUhN3h2T2Ti3 ANBKxDE65IMW1 aHZ0NW68TD19Y6IxKlvum GFibGU+PHRhYmxlIHdpZH RoPScxMDAlJyBzdHlsZT0 cSs7cOBLiXUCw pLfmkNMsNtFkn4yfMPAnD YfwDF4bgTddF4FjwVS6TP Vri0g8Qu88C37dS6IicGE +FHVxdGM9vAD7 qX6jVfNdDyU6PIplC045A nPrlXFiBdwxu1ywl3xxfX a5JoZ0BFTzqbEnlYxbJDQ 1t9ZiJt18L89y IHdpZHRoPSIxNSUiIHZhb Zsene8auR3pLq9+PGNvbC D3uWS7jQ9iEnNaDmY2YLk uN590NzOadUIz Hwjhn5aey2fjpLc4LmRgY OIlqzImiMpsFER6f0MuVv 10U2WceAmlj4PeQwb6jq2 5nZMtr3C9mBJ8 L6ImTRKqhshydWNcyLgfP R0pSRSyytoxVDRypI2gYW ToA1t7RcCvQoA4IUanB2T dtqV1UQHvlWMy HYwmWQV1K72fo9R5KUVyM QUhMWZ2mZA5qX5fbUndfp ogbGVmdDsgdmVydGljYWw pWZmvE991NFMm fKsjZZGaaB1jWWFeuSWvy LcqAT2pBVCtbnumMo1OKA nQGejwZxRXZ7eQNYEHDT7 5PQ56zLKop3L0 vZA3T8BjQOTicqdesbyxi ZY0EMWaKKUxaX49aSHzTX srMs8aw1T9m743WIPeQCC qaA18Uy4qbJic PLAhtDYFrD5prczrb6boh pvmAtHmBWJtXRd8BXy4SX QhpQfnZaZgAIS8MlG9GZM 9fDVqqB3hsMyl hkyphQ2fUed+MDgvMjEvM Rx3ZDertVD+TMGdMRT3hJ syYNfrYGVbeE7wXNDcS3s 5UeDxAvE4KNzr E2MpXTAojyrcYh85fC2xU vYfOjH9FOhaI6CqjkP7BZ SasDLtSKutUHC6Z55cq3W 7WHTzMPXzCWN0 wSS0jR0oaBadklfrfVQhn DsgdmVydGljYWwtYWxpZ2 46IHRvcDsnPjMyIFllYXJ qNM97VC81bYQp u6C9hCB7J5LdBZOglzmmj bvcgAB6QSErFFUruX04aG FoYRcnNz3rs7Z6n948OGO zPIFrmH39Ky8d iHxhXDDhyYGOvC2fjfqyz 1pbmbsxNzUdEURvXGo3VD q7XICtqKglTsPbSQK9BfB 2SQZ4nQPadS7i qSubqgwdgD8fCsu+RmVtY SdcYJ64LM68uYKwb3C9hO U4T1PsAGHeyokdpqrmhKT 8DINrWIRgrF37 cEHeBTcsSb9mv0R3a944A MJmRRAfvG60Uf8lgZrgHM BxcPMVtG5tdudux3cidya gIzAwMDAwMDt0 VFc6BUHukLcbGqChKQF8L oX5HUU5qXBvfT8xwJffmp wdmO8qSeg+LW0wtjtmsyF 5IM19JJ48P3Bo PjwvdGFibGU+PHRhYmxlI HdpZHRoPScxMDAlJyBzdH wtAE4dDp9nJCAxNACheDb vxOHxMfJpo2sw LWElAQqsGW0vhPeuJ1Twj CI8UXFcw0q2Ea63M22jK8 JvdXA+LYZqbJF1dBP9pN9 eQxDoLwT1HJjz Y559DyNkcPQlFidla8xoz 8uhiDy8KaIeCLWlumQtrB ynLBH7a0TnEw16A55bLVg pZHRoPSIyMCUi BMQraRobfx1niF2uMt2+P HZdyHH7kZR7hJ9aIsFjAb S5JTkdS315KpRahJFnNlx iR43yC6NtpLY+ WXIdUzc7UZEfdAkbMR5hi AUfDExqZo4aGHF1DqKpVf LzFSruA0DoQYGrylytkbx ojYC1TVZdSKOu sJ15Ht8xnDvzDs1eMBXtC RW7PWVthRSgU1XalZ7eLn LtCWMxRAQpZ5HuePMzTSa hH392CQoyDrZ9 OJMfoiXqR4KwXJCzrAwmD cM8u2Q7Gk1MhWuebKTwAQ 6vAhWsIFo3S3RaDci6UMX axKtpNB8btXOk YLdlUm4fsKojcQznTU6dH IGrmuaab566RdVsg0zoQS LacEPrJYyvWCF5B62ai7R 4XWZlRBXoPHX0 fTV4rK8vqXxlszrtyTXvj DsgdmVydGljYWwtYWxpZ2 99OUThkPhnYyDEHgz4V7H uMmf0GUBkmAns EN1loDLqJHabBs9fwIdza IpiKL8kPHQihbucz882Sx Wck8poNXDvsEUxZXuiVZK 7V32tc2Q5TMNk DPCwUME9aNH3nP7nkSwia jogbGVmdDsgdmVydGljYW yaAGtyP851PPQhyQgqSs4 RKke1M6VvEes6 XBZlyGzbXR0qiXMaXCkbI x1ejEldqYjsJQ5dRIPccb ysh527AsGsf1izZYMrkHA tCQgoSCJ3F43h g9B7CWCdVQAdSMN0xOT3w P0zoCsgcqsstBSwoGpcrd WimMmfEOueJGdyG297IEM vcDsnPlBheWVy OjwvdGQ+MG88ia75R0AsZ tfmWtn7KUWgCIX5gMD5hO 8hROIjODqcm1K4fXR4R0G useAlom1dx4lg YXBz (more content not included)... Normal [facility] Coding Summary. CD:[id number]:[id number] G h0bWw+PGhlYWQ+PR9RQYF gX81qmSSoeD9DB7nJES0Z XKZJNYLBHT9SEV3jmVU5F IuoC4PgevOu ChlzcFWzHY35BEr1RIU0c NznHItrcH8rzIUnB0j8Vw TvBK48nK24CUadJIHsFkT 3LjZpbjsgbWFy Z9oeYsMsvAVnBht+PHRhY mxlIHdpZHRoPScxMDAlJy OgrNzcBQ8qQc7fHDCwWWT vbGxhcHNlOiBj n9toMKImUWivGD4bmDbpS 5CblYO6PZKdg7a1Mp26bF I+EHGvYHN6xKpxMMdct32 4GbTyh3rjZRK3 hYJxPSwaPQU0P47ny6L1E CQzPUNwCPW1rSP3mB7wcR bbyideM4RscNGfLsM4ZOQ 2fJMjrZ1gkSjl jarvoZ8nWxh+V62GMQ7LF IWUNM9NAvz8U7KaTnggoY I+IZ95WSShEC38uYCjpNY ig0dmrLg0UlTm WBGuAOT3wCfuVBjgv2IdH ETdA99yqLBoi7K2DGVzhS pitBZaQiEwyTD4pH7eJDg jmbzaq7zkxzgs Umqna5wxat77jX77W05mP ZhpKEEnYXO0VRFwMSPxkL stim0gfI6gWt8+NVqfj8o do6yyxEr7PcPs DSWeqmNsiSerGPN8v9SeP c27M1KdaDbsh4LcDkr3jg 06uDIgj1Q9iIT0BPjfTOU viL2cGVauIaU1 MPNpWsCdaF55yLAjTOwhA r6itLmviXirJC5fZRQnhp cjZSGqyD7dGVOpmZTfeJq mZG2jFCHwkbkl b164AgVqGBH4FTMonIPmM 0XplC8zAsWiFCOdLTBrW6 SzpWScDRgoH039OCzfKzU 8AVLfdsGnJ2Je GCUvxYjaXgS8s4C9Lc8Ro 2WqzjilVQZ7PLfhFJGqBa J6PqQfBxI1O7KyDlg7NMW fgIrrJP0xD1Em AGKlsvjjofmczSF6JCXnB LKwaT64oMIzCIuxMa7qs6 J2n190AUOtTKZchT51Ph2 udDogMTBwdCBU oY7mejtim4jekglnHjVfE OVkHCf2ABr8GADkuWkiCs OaXIQ1AyW0BVT2mRUitP8 wpBoorrtfhV3t Oyc+F57nnZ9vFYU2QIW5p vppFEPsoiVpNY67FP28Y0 RyPjwvdGFibGU+PGRpdiB qgYwxUB9yXmGh a8ydf2HjSKxmX8XtCLKzU KsrLtg8XQGsRMU5yCQ2aD 9zSZVbPVpir2R9pXD4V0L cwtBwbo0kh0ga MFUhALgbS67chQJdg7J0Y IWkfRE1ICWrtIxiXuHqyT 93Oyc+DYYdtFbek7UeZif nn2qnd5aemJc2 AuFpGNYryrGfbFzaDXS1p 5RnQy16T71eFSahDFCjNG OjNEIjPWDadNdqgm8wiP6 wIi8+PGNvbCB3 zYM4mV0sVGByYmX4TTgzM 065VxLgdPViJbzyk6wwr1 ppjNg1DoKdJEFqcaYiwAg iMNZ9k9YpKz72 X73mRQgpOIWfJNCuNZRqR UOnnHyxov2ovM7gDb7+PC 1bn8xehs59oB83rBY+PHR cVOY2yOynEEoz NYMqhU0hYArvJlQ0KDPkW yFcxL74jUEuSZsfIl3psU gytPpvIY9sOAMewzmnj31 3WnBrd2orOLHe pCZkVHuvZBG2X73bs5E3A APdDGOfMXL9fNX9uR5vqS lnbjogbGVmdDsgdmVydGl nOVybTKhnJ348 IHRvcDsnPlBhdGllbnQgT eCvYOx6V5LcIqn6RVQwsN uxZI0qhXJmAOhzIw1isPx fbEnyGF4yTNCt wonom691DuSgt2agJHSsq FOaJNqiGJZ4C00vm2T2GO CdOWYfUPU9lNC2kB8iuEp nbjogbGVmdDsg gnGmhOlsPDpxEHetU491S HRvcDsnPkJpcnRoIERhdG O7WN43RZ37rVUhw7G9aZZ 7L7FwWMQamssz wzhphHG0WAFvCUXhrL50T x5taZyiCx2dHCLnNPJ3MQ PfgWBhU6NfxP2oLfOaWGZ kXRAaT0SulOWl GZjmK126DPpcWzS2MMCvv uVhZ4OcFPCweJctVmD1d9 M6If6VR0K7NO02NU26mHP mt2W9cGZ1G9Mj WJLiiphdoewrrOH0RVJpJ REvkO96Pw5tcUwfPy6qLQ QtHDP1AHThvJUjV1JzcP6 yOiAjMDAwMDAw Q1UwdQMuMKqgM497MLjjO oW3IWVlawYsA1WhZTGvuT xvSqX8r3E3Xa3BRLy5XZ1 5QF05qLHyn3S9 iAY2Y9WmGODvslldlqggq FF5ZDFlIRAajB58Ce0swT vkYb8aRNGySON2VJJmiPY rC8XjiZ5cSsIc NGOkYCEwH4BraAInKYgcE 119HZgwTcL8VMDiuxLmI4 ArDIUcmEkvVfN1c5N7Bp2 ZNUAaLC31GIC0 bER7BE73IH55K5BbGoauv GFibGU+PHRhYmxlIHdpZH RoPScxMDAlJyBzdHlsZT0 sJr0eUDQfKJRj eSzlwGOxGaXkx6jdVEWuD BqcAM6vyAzvO2JroKC0ZI Wti0f7Co71A72eP6NtpLO +FFYvgHD3kOK2 xQ5fDvHfZwK7EAujK888P iBcnZFmDhxeb5xrd8ufqA r8WrB8PTZmruFihCfvCKY 2b2KqLw98V76f IHdpZHRoPSIxNSUiIHZhb Wntbw3wuS2sUl8+PGNvbC L9kVA0nF6bFhTgNiZ5RMa iQ954OjLreWZn Pxdis6wnx4gzbMv9IuRxD JSgniPdiCtnGEF4z0XoEr 10F4JmwRykk2DhUhn6em7 2tFCnr6X1cCB5 C3ThNSOwwsxgaMNbgJjzP J6rCBIjkgncQSXjsV2eDW QcP7a6RfWiIjX3NFnoN4H etkI0KEResSFy FFjiZVB2I66sm6R6TBLcL UFaQQZ7qMF1cJ8qdBzxir ogbGVmdDsgdmVydGljYWw kPRguL872RXKa mPuaACMchE3pXHZeuKYgr UjcNJ8yIICbqqtmGw7ETQ hJUcriGeILH5nVEFRFLE2 1ZD75sHZzz4D2 zPV3I0KbLSIjzkrrbqckb LP8SJWeSTLepL37xHYiUH rhPc2gu4F9e029VGKfTPP clF64Vw3vjBzz HBWfaNKOvW1iwegqi4prl hejDhCvHZBrDTp8UXy9FR UbxUfrDpQnVER0MfS0ZYC 3nQYpaH0ueRnf ryjkiW0tKkw+MDgvMjEvM Pe7TEbooPR+NJOgAZN1cH sfWRsjERAbyJ9hPQVrX9f 7BoEoLfH2FYqj A3JfOEXkkqdmCx11vM5bT hRrXzF1NQoaP4BriuL9QW NfhJUhCIgqERR1T90yr7O 9HQDhDOWoPOB6 fPO0vF1bcMtkyzsgpZTiy DsgdmVydGljYWwtYWxpZ2 46IHRvcDsnPjMyIFllYXJ iOD62PM41wOMg r7S1mYX5H0KfHNZiubrkp hcdwDL8IJViBMIdtM26zQ UuCLezPp6or0A1a587FOO oSMTkmM86Ah4d kObwAXBnjNGOlU2yqatak 6lhookpOjAbHZUgRPo6PJ n0ZHHkfGplOzJpHDO6CtP 7AKX3yJHtlO6t wPzzfaorxB9hBxk+RmVtY MgzXA82NS45mPJww1T7tF A8F7SxLCYsaynjbhieyPP 5IZFqGZUipN36 iBYqXFqmNh6ls8R7m770I LPnNVRpuH95Vn5duXowBK AwrEGYbT6foampo5bklwh gIzAwMDAwMDt0 ILt8WLZeuYanTgUmPBI2N iJ3CDB3hNRozC2pfHrsht abtJ8iEpw+AL5wkmaksvC 6NK77XU43V6Wp PjwvdGFibGU+PHRhYmxlI HdpZHRoPScxMDAlJyBzdH upRM3bEk6fLDJfEIPfmSp kiIHcZoMlu1kz BUBuOFnbSU2etPzsY8Uyl CS4TUTyq2h7Gq29P02dV2 JvdXA+MVStaFW6aGJ7sR9 tXfJaLxB2LQel M721LlGvcMOdWtmlg5ubx 2cvaWl1ZrZjBJFtiqDaeD kuBZC2j5UrEk08A20jBVs pZHRoPSIyMCUi HUBlwIscqz4mgQ6yVd7+P OMxbFW6aXD3vC9hTfHgMk V1WVqrJ124HwIdgNYoYsu jH55eW8JgxMA+ RWMiWju6GGKtsGsjVP8lp SHkDWnePh9sPRR0XmKuUq KyHEowR0OvLSGfbyxtuxk ljAI8KTMnWJEk bF03Td0xtNsmWs7wLMYlY HM4QZOsbACdN4NyaN1qEa JqUAYhFUHhE5BqmMVcSAs zG922SXwiPjW3 WJEvatFnR6DpKIKahLvzC eQ2r8I6Tr9PmDozpUMkES 1lTjHqXNo0V5XaMet0PYA ucUkxEK5kzQWa RMenJo2dnNzvmCzkIZ3tQ OQdxgoyp006OiBga9ivPD LpkVUfMTpwZLC3J97yz8J 4VFYoPZQgFCP0 aZX0eB4liNjmpyameYEfy DsgdmVydGljYWwtYWxpZ2 60LLZntLspOnLEMak8M0G vUvo8JJHgrDlr QF3wkKXtEAceIz2gbJpkj NotUI4tQYRbgdgku085Gg Uif2tnLYPdjONrUQxqHZO 1I21zr0C4QLKd MPHgSYP3yWK5uC2vgWpzi jogbGVmdDsgdmVydGljYW cyXHnaK950BUEfrBrwHu2 RUls8S9LmVih7 VBGfcCybBW5tqIVpCOclT q4yoYbclNceOA8wQUEodj pun844TfQso9sjYSZdwRY rVAtvLPJ2Q80m n1U0GGPbKEEePYJ9mMW1n L6jvMmkbdzooAVkxCaqix JvgPtgOAsnGJbrG493PGL vcDsnPlBheWVy OjwvdGQ+AL97wn02M2NiU xxrLkg4LLOrFBV7rST9kG 3aMJQsTBbuq8F9cIX1Z3L koyScdf3po0tk YXBz (more content not included)... Normal [facility] Auto Diffon 03-12-2021 Basophils/100 WBC (Bld) 0.2 % Normal 0.0-2.0 [facility] Comment on above: Order Comment: Order Added by Discern Expert. Performed By: #### 2 [id number], 6565472, 5201796, 3072278, 36843371, 16872554, [id number] ####[facility] [address] [place] [address] Basophils/Leukocyte s Auto (Bld) [Pure # fraction] 0.0 E9/L Normal 0.0-0.2 [facility] Comment on above: Order Comment: Order Added by Discern Expert. Performed By: #### 2 [id number], 9886195, 4791154, 0804983, 87402888, 70234675, [id number] ####[address] [place] [address] Eosinophils/100 WBC (Bld) 0.0 % Normal 0.0-8.0 [facility] Comment on above: Order Comment: Order Added by Discern Expert. Performed By: #### 2 333041, 4930170, 7533961, 4409607, 57463951, 90592838, [id number] ####[address] [address] Eosinophils/Leukocy jacinta Auto (Bld) [Pure # fraction] 0.0 E9/L Normal 0.0-0.5 [facility] Comment on above: Order Comment: Order Added by Discern Expert. Performed By: #### 2 414231, 5212590, 1866302, 2142213, 76098757, 67381332, 04263451 ####[address] [address] Lymphocytes/100 WBC (Bld) 19.4 % Normal 14.0-50.0 [facility] Comment on above: Order Comment: Order Added by Discern Expert. Performed By: #### 2 058422, 3953670, 0646017, 4782786, 34574902, 27028795, [id number] ####[address] [address] Lymphocytes/Leukocy jacinta Auto (Bld) [Pure # fraction] 1.0 E9/L Normal 1.0-4.0 [facility] Comment on above: Order Comment: Order Added by Discern Expert. Performed By: #### 2 443821, 8947074, 9204320, 6955921, 81095975, 61612362, 71548304 ####[address] [place] [address] Monocytes/100 WBC (Bld) 6.9 % Normal 4.0-14.0 [facility] Comment on above: Order Comment: Order Added by Discern Expert. Performed By: #### 2 381208, 1936162, 9654371, 7407615, 22802389, 90027710, 75461605 ####[address] [place] [address] Monocytes/Leukocyte s Auto (Bld) [Pure # fraction] 0.3 E9/L Normal 0.2-1.0 [facility] Comment on above: Order Comment: Order Added by Discern Expert. Performed By: #### 2 575765, 6106861, 5393592, 0440544, 18653306, 31019021, 81316607 ####[address] [place] [address] Neutrophils/100 WBC (Bld) 73.5 % Normal 36.0-75.0 [facility] Comment on above: Order Comment: Order Added by Discern Expert. Performed By: #### 2 459101, 8006451, 9672037, 0584965, 73803704, 49965067, 86277900 ####[address] [place] [address] Neutrophils/Leukocy jacinta Auto (Bld) [Pure # fraction] 3.6 E9/L Normal 2.0-7.5 [facility] Comment on above: Order Comment: Order Added by Discern Expert. Performed By: #### 2 338175, 6111107, 8628014, 4641926, 60125277, 10640139, 10525095 ####[address] [place] [address] BMPon 03-12-2021 Creatinine [Mass/Vol] 0.8 mg/dL Normal 0.5-1.3 [facility] Comment on above: Performed By: #### 2 308858, 1842436, 9145923, 7215793, 10673404, 98779777, 25812189 ####[facility] [address] [place] [facility] [address] Urea nitrogen [Mass/Vol] 8 mg/dL Normal 5-21 [facility] Comment on above: Performed By: #### 2 479590, 5925946, 2103920, 3596297, 05488464, 50694808, 72567725 ####[facility] [address] [place] [address] Urea nitrogen/Creatinine [Mass ratio] 10 No Units Normal 10-20 [facility] Comment on above: Performed By: #### 2 890721, 0987779, 5874667, 8550212, 67564631, 26461708, 20125316 ####[facility] [address] [place] [address] Anion gap [Moles/Vol] 16 mmol/L Normal 6-16 [facility] Comment on above: Performed By: #### 2 321014, 9921778, 8086904, 8237271, 41493680, 06496213, 71056124 ####[facility] [address] [place] [address] Calcium [Mass/Vol] 8.3 mg/dL Low 8.9-11.1 [facility] Comment on above: Performed By: #### 2 135624, 0713567, 2069774, 1041905, 37989173, 13544307, 77718183 ####[facility] [address] [place] [address] Chloride [Moles/Vol] 99 mmol/L Low 101-111 [facility] Comment on above: Performed By: #### 2 504352, 2657148, 9953736, 8092104, 96340231, 12268345, 30124760 ####[facility] [address] [place] [address] CO2 [Moles/Vol] 21 mmol/L Normal 21-31 [facility] Comment on above: Performed By: #### 2 254952, 2309021, 1581301, 6631444, 24736270, 14904385, 23591866 ####[facility] [address] [place] [address] Glucose [Mass/Vol] 127 mg/dL Normal 55-199 [facility] Comment on above: Result Comment: If t his glucose result represents a fasting glucose, interpretation should refer to the following reference range: 55-99 mg/dL Performed By: #### 2 114701, 9539404, 2452511, 4832223, 86440806, 57283286, 91690872 ####[facility] [address] [place] [address] Potassium [Moles/Vol] 3.5 mmol/L Normal 3.5-5.3 [facility] Comment on above: Performed By: #### 2 667926, 6374963, 5692507, 2327450, 72229254, 15024428, 23054502 ####[facility] [address] [place] [address] Sodium [Moles/Vol] 132 mmol/L Low 135-145 [facility] Comment on above: Performed By: #### 2 039314, 5523524, 2144202, 9650929, 28145524, 81076326, 01467266 ####[facility] [address] [place] [address] CBC w/ Auto Diffon Erythrocyte distribution width (RBC) [Ratio] 14.2 % Normal 10.9-14.2 [facility] Comment on above: Performed By: #### 2 891086, 3957366, 1305994, 9934528, 43530497, 00723013, 05912234 ####[facility] [address] [place] [address] Hematocrit (Bld) [Volume fraction] 39.9 % Normal 34.0-46.0 [facility] Comment on above: Performed By: #### 2 958789, 0171965, 6648066, 4489453, 89710632, 26013786, 36516559 ####[facility] [address] [place] [address] Hemoglobin (Bld) [Mass/Vol] 13.0 g/dL Normal 12.0-16.0 [facility] Comment on above: Performed By: #### 2 422531, 7047610, 3353932, 3888335, 01850838, 16494346, 35643506 ####[facility] [address] [place] [address] MCH (RBC) [Entitic mass] 27.3 pg Normal 27.0-34.0 [facility] Comment on above: Performed By: #### 2 266301, 1170538, 9287284, 7720209, 36804425, 26158423, 11123753 ####[address] [address] MCHC (RBC) [Mass/Vol] 32.7 g/dL Normal 31.4-36.0 [facility] Comment on above: Performed By: #### 2 351091, 1296455, 1893718, 7556534, 26989526, 88361499, 28749390 ####[address] [address] MCV (RBC) [Entitic vol] 83.4 fL Normal 80.0-100.0 [facility] Comment on above: Performed By: #### 2 033942, 6423811, 5976411, 9523779, 40902333, 93693486, 43686320 ####[facility] [address] [place] [address] Platelet mean volume (Bld) [Entitic vol] 7.8 fL Normal 6.4-10.8 [facility] Comment on above: Performed By: #### 2 723482, 7196163, 9775510, 4852118, 89660393, 88327593, 32974425 ####[address] [address] Platelets (Bld) [#/Vol] 188.0 E9/L Normal 150.0-500.0 [facility] Comment on above: Performed By: #### 2 168882, 9315223, 0945413, 1081950, 40655054, 16226133, 99841210 ####[facility] [address] [place] [address] RBC (Bld) [#/Vol] 4.8 E12/L Normal 4.3-5.9 [facility] Comment on above: Performed By: #### 2 399011, 1148208, 4876344, 8529411, 18026492, 58801546, 85367024 ####[facility] [address] [place] [address] WBC corrected for nucl RBC Auto (Bld) [#/Vol] 4.9 E9/L Normal 4.0-11.0 [facility] Comment on above: Performed By: #### 2 918239, 2566129, 1206698, 7912795, 19087699, 22680627, 15224744 ####[facility] [address] [place] [address] CTA Cheston 03-12-2021 CTA Chest Exam Date/Time: [...] 370 Contrast amount in ml's: [address] [facility] Consent for Treatmenton Consent for Treatment [id number]#1 .00CD:[address] [facility] D-Dimeron 03-12-2021 Fibrin D-dimer FEU (PPP) [Mass/Vol] 586 [id number] Abnormal 215-500 [facility] Comment on above: Result Comment: Resu [...] infections Liver cirrhosis Performed By: #### 2 674286, 4421852, 6831907, 2914050, 38890503, 63321524, 56050499 ####[facility] [address] [place] [address] Discharge Instructionson Discharge Instructions [id number]# 1.00CD:[address] [facility] ED Clinical Summaryon 2020 ED Clinical Summary [place] [id number] ED Clinical Summary Person Information Name: ED MURPHY [facility] Age: 30 Years : 1990 Sex: Female Language: Swazi PCP: Tricia Dewey CNP Marital Status: Phone: [phone] MRN: Visit Id: Visit Reason: Fever; Diarrhea; [...] 03/12/2021 12:55:56 03/12/2021 12:55:56 03/12/2021 12:55:56 ADDRESS: [address] [place] [id number] PHYS DOC NOTES: MEDICAL INFORMATION: Prescriptions Given: New Medications [facility] [place], [place] [phone], [phone] albuterol (albuterol CFC free 90 mcg/inh Inh [...] Follow up: With: Address: When: Tricia Dewey [address] [place] [address], [address] [place] [address] Business (1) In 3 days DIAGNOSIS: COVID-19; Near syncope Normal [facility] ED Note-Physicianon 03-12-20 ED Note-Physician Basic [...] puff(s), Inhalation, QID, 8 gram, Refill(s) 0, [facility], 173, cm, 03/12/21 9:08:00 EST, Height/Length Dosing, 125, kg, 03/12/21 9:08:00 EST, Weight Dosing azithromycin, 250 mg, Oral, As Directed, Take two tabs by mouth on day one, then one tab daily, # 6 tab(s), Refills(s) 0, Pharmacy: [facility], 173, cm, 03/12/21 9:08:00 EST, Height/Length Dosing, 125, kg, 03/12/21 9:08:00 EST, Weight Dosing dexamethasone, 6 mg = 1 tab(s), Oral, Daily, X 7 day(s), # 7 tab(s), Refills(s) 0, Pharmacy: [facility], 173, cm, 03/12/21 9:08:00 EST, Height/Length [...] Information Tricia Dewey In 3 days [address] [facility], [address] [place] [phone] Business (1) Additional Instructions: Problem List/Past Medical [...] Past, denies, (more content not included)... Normal [facility] Comment on above: Result Comment: Elec tronically Signed By: Tal Gonzalez DO\.br\Date and Time Signed: 03/12/21 12:46 EST ED Patient Education Noteon 03-12-2021 ED Patient Education Note Normal [facility] ED Patient Summaryon 021 ED Patient Summary [address] [address] Patient Discharge Instructions Person Information Name: ED MURPHY Age: 30 Years Arrival Date: 03/12/2021 08:55:19 Discharge Diagnosis: COVID-19; Near syncope Primary Care Physician: Tricia Dewey CNP Provider Information Primary Provider: Tal Gonzalez DO Advanced Tile Power Shear Operator:None The exam and treatment you received in the Emergency Department were for an urgent problem and are not intended as complete care. It is important that you follow up with a doctor, nurse practitioner, or physician?s construction assistant for ongoing care. If your symptoms [...] Follow-up Instructions: With: Address: When: Tricia Dewey [address] [place] [address], [address] [place] [address] Business (1) In 3 days In the event that this physician does not participate in your insurance network, please consult with your insurance company to find a nearby participating provider. Patient Education Materials: A MESSAGE TO ALL PATIENTS REGARDING OPIOIDS PRESCRIPTION OPIOIDS: WHAT YOU NEED TO KNOW Prescription opioids can be used to help relieve bnksipqs-ci-oqazym pain and are often prescribed following a [...] be struggling with addiction, tell your health direct care supervisor and ask for guidance or call [facility] National Helpline at 8-372-108-XYAP. w Source: Department of Health and [facility] (more content not included)... Normal [facility] PT & PTTon 03-12-2021 aPTT Coag (PPP) [Time] 30.8 second(s) Normal 25.1-36.5 [facility] Comment on above: Result Comment: Hepa rin therapeutic range (represented by Anti-Factor Xa activity of 0.2 - 0.4 U/mL) corresponds to PTT of 56.6 - 109.0 sec. Performed By: #### 2 948571, 7228563, 6221297, 3040779, 40564753, 99147499, 41537504 ####[facility] [address] [place] [address] INR Coag (PPP) [Relative time] 1.2 {INR} Invalid Interpretation Code [facility] Comment on above: Result Comment: INR results are specifically intended to assess patients stabilized on long-term Anticoagulation therapy suggested INR?s ?Less Intensive Anticoagulation? 2.0 ? 3.0 Conventional Range 3.0 ? 4.5 Performed By: #### 2 264248, 8285976, 0608457, 3555493, 97912104, 22598998, 66064821 ####[facility] [address] [place] [address] PT Coag (PPP) [Time] 14.1 second(s) High 10.2-12.9 [facility] Comment on above: Performed By: #### 2 966927, 7142620, 6895966, 2394937, 33655752, 07362508, 28188424 ####[facility] [address] [place] [address] Troponin 0 Hr.on 03-12-2021 Troponin I.cardiac [Mass/Vol] 3.90 pg/mL Low 10.10-27.10 [facility] Comment on above: Result Comment: The 95% CI (Confidence Interval) PPV (Positive Predictive Value) for myocardial infarction in females is 38 pg/mL, in males 51 pg/mL. The results should be used in conjunction with clinical conditions of myocardial infarction. (Access High Sensitivity Troponin I Instructions For Use, [employer], November 2017) Performed By: #### 2 059013, 3341986, 9204752, 0092491, 96654479, 13464361, 07528240 ####[facility] [address] [place] [address] XR Chest Single Viewon 03-12 XR Chest [...] DO Transcribed by: ROBERT Technologist: FAUSTINA Shepherd [facility] eGFRon 03-12-2021 GFR/1.73 sq M.predicted among blacks MDRD (S/P/Bld) [Vol rate/Area] mL/min/{1.73_m2} Normal >=59 [facility] [facility] Comment on above: Order Comment: Order added by Discern Expert. Result Comment: eGFR is race adjusted. AA=. Performed By: #### 2 [id number] ####[facility] [address] [place] [address] GFR/1.73 sq M.predicted among non-blacks MDRD (S/P/Bld) [Vol rate/Area] mL/min/{1.73_m2} Normal >=59 [facility] Comment on above: Order Comment: Order added by Discern Expert. Result Comment: Medical Sonographer nandini kidney disease could be indicated at eGFR's of less than 60 mL/min/1.73m2. Kidney failure is indicated at less than 15 mL/min/1.73m2. Performed By: #### 2 [id number] ####[facility] [address] [place] [address] Consent for Treatmenton 0 Consent for Treatment [id number] .[id number]:[address] [facility] Physician Orderon 03-10-2021 Physician Order [id number] 1.00CD:[address] [facility] XR Chest 2 Viewson XR Chest [...] DO Transcribed by: DP Technologist: ISAAC Barrios [facility] Vital Signs Date Time Vital Sign Value Performing Clinician Oseas dobbins 10-14-2024 15:07-0400 Body mass index (BMI) [Ratio] 42.67 kg/m2 Aquiles Adrian DO Work Phone: [facility] 10-14-2024 15:07-0400 Body weight 129.18 kg Aquiles Adrian DO Work Phone: [facility] 10-14-2024 15:07-0400 Diastolic blood pressure 70 mm[Hg] Aquiles Adrian DO Work Phone: [facility] 10-14-2024 15:07-0400 Systolic blood pressure 110 mm[Hg] Aquiles Adrian DO Work Phone: [facility] 09-30-2024 15:47-0400 Body mass index (BMI) [Ratio] 42.37 kg/m2 Flower DE LA PAZ Work Phone: [facility] 09-30-2024 15:47-0400 Body weight 128.25 kg Flower DE LA PAZ Work Phone: [facility] 09-30-2024 15:47-0400 Diastolic blood pressure 80 mm[Hg] Flower DE LA PAZ Work Phone: [facility] 09-30-2024 15:47-0400 Systolic blood pressure 130 mm[Hg] Flower Otero PA Work Phone: [facility] 09-17-2024 10:49-0400 Body mass index (BMI) [Ratio] 41.97 kg/m2 Aquiles Adrian DO Work Phone: [facility] 09-17-2024 10:49-0400 Body weight 127.06 kg Aquiles Adrian DO Work Phone: [facility] 09-17-2024 10:49-0400 Diastolic blood pressure 70 mm[Hg] Aquiles Adrian DO Work Phone: [facility] 09-17-2024 10:49-0400 Systolic blood pressure 112 mm[Hg] Aquiles Adrian DO Work Phone: [facility] 08-27-2024 09:21-0400 Body mass index (BMI) [Ratio] 41.52 kg/m2 Flower Shanna PA Work Phone: [facility] 08-27-2024 09:21-0400 Body weight 125.7 kg Flower Garciaey PA Work Phone: [facility] 08-27-2024 09:21-0400 Diastolic blood pressure 70 mm[Hg] Flower Garciaey PA Work Phone: [facility] 08-27-2024 09:21-0400 Systolic blood pressure 120 mm[Hg] Flower Otero PA Work Phone: [facility] 08-01-2024 09:31-0400 Body mass index (BMI) [Ratio] 41.21 kg/m2 Aquiles Adrian DO Work Phone: [facility] 08-01-2024 09:31-0400 Body weight 124.74 kg Aquiles Adrian DO Work Phone: [facility] 08-01-2024 09:31-0400 Diastolic blood pressure 72 mm[Hg] Aquiles Adrian DO Work Phone: [facility] 08-01-2024 09:31-0400 Systolic blood pressure 112 mm[Hg] Aquiles Adrian DO Work Phone: [facility] 06-03-2024 14:49-0500 Body mass index (BMI) [Ratio] 40.58 kg/m2 Aquiles Adrian DO Work Phone: [facility] 06-03-2024 14:49-0500 Body weight 122.83 kg Aquiles Adrian DO Work Phone: [facility] 06-03-2024 14:49-0500 Diastolic blood pressure 72 mm[Hg] Aquiles Adrian DO Work Phone: [facility] 06-03-2024 14:49-0500 Systolic blood pressure 106 mm[Hg] Aquiles Adrian DO Work Phone: [facility] 05-02-2024 11:56-0500 Body mass index (BMI) [Ratio] 40.28 kg/m2 Aquiles Adrian DO Work Phone: [facility] 05-02-2024 11:56-0500 Body weight 121.93 kg Aquiles Adrian DO Work Phone: [facility] 05-02-2024 11:56-0500 Diastolic blood pressure 70 mm[Hg] Aquiles Adrian DO Work Phone: [facility] 05-02-2024 11:56-0500 Systolic blood pressure 110 mm[Hg] Aquiles Adrian DO Work Phone: [facility] 02-15-2024 14:26-0500 Body mass index (BMI) [Ratio] 41.77 kg/m2 Flower Otero PA Work Phone: [facility] 02-15-2024 14:26-0500 Body weight 126.46 kg Flower Otero PA Work Phone: [facility] 02-15-2024 14:26-0500 Diastolic blood pressure 80 mm[Hg] Flower Shanna PA Work Phone: [facility] 02-15-2024 14:26-0500 Systolic blood pressure 120 mm[Hg] Flower Shanna PA Work Phone: [facility] 02-12-2024 08:50-0500 Body mass index (BMI) [Ratio] 41.8 kg/m2 Aquiles Adrian DO Work Phone: [facility] 02-12-2024 08:50-0500 Body weight 126.55 kg Aquiles Adrian DO Work Phone: [facility] 02-12-2024 08:50-0500 Diastolic blood pressure 72 mm[Hg] Aquiles Adrian DO Work Phone: [facility] 02-12-2024 08:50-0500 Systolic blood pressure 118 mm[Hg] Aquiles Adrian DO Work Phone: [facility] Encounters Encounter Date Encounter Type Care [...] Comment on above: Third trimester preg lakia ([facility]); 33 weeks gestation of ([facility]) Start: 09-30-2024 End: 09-30-2024 ambulatory FLOWER OTERO [...] 08-08-2024 End: 08-08-2024 ambulatory AQUILES R ADRIAN [facility] Start: 08-07-2024 End: 08-07-2024 Chart abstracting Scanning Provider External M[facility]- Medicine at [facility] Start: 08-01-2024 End: 08-01-2024 flow sheet [...] flow sheet Aquiles Adrian DO Work Phone: [facility] Comment on above: Second [...] Result Encounter Aquiles Adrian DO Work Phone: [facility] External Department Unsolicited Start: 05-02-2024 End: 05-02-2024 [...] Start: 04-11-2024 End: 04-11-2024 ambulatory Aquiles Adrian Facility:[facility] Start: 04-11-2024 End: 04-11-2024 Departed Referred Aquiles Adrian DO Work Phone: [facility] Start: [...] Start: 12-09-2024 Influenza vaccination Influenza Vacc ine [facility] Start: 10-21-2024 End: 10-21-2024 Patient encounter procedure 10/21/2024 2:00 PM EDT Routine [facility] [address] [place] [id number] Aquiles Campbell, DO [address] [place] [address] [facility] Start: 10-14-2024 End: 10-14-2024 Patient encounter procedure 10/14/2024 2:30 PM EDT Routine [facility] [address] [place] [id number] Aquiles Campbell, DO [address] [place] [address] [facility] Start: 10-14-2024 End: 10-14-2024 Professional / ancillary services management 10/14/2024 2:00 PM EDT Ancillary Procedure [facility] [address] [place] [phone] [facility] Start: 09-30-2024 End: 09-30-2024 [...] Routine [facility] [address] [place] [address] Aquiles Campbell, [address] [place], [place] [id number] [facility] Start: 09-17-2024 End: 09-17-2024 Professional / ancillary services management 09/17/2024 9:30 AM EDT Ancillary Procedure [facility] [address] [place] [address] [facility] Start: 08-27-2024 End: [...] 08/08/2024 8:00 AM EDT Appointment [facility] [place] [address] [facility] [address] [place] [address] [facility] Start: 07-01-2024 End: 07-01-2024 Patient encounter procedure 07/01/2024 9:40 AM EDT Routine [facility] [address] [place] [address] Flower Otero PA [address] [place] [address] [facility] Start: 07-01-2024 End: 07-01-2024 Professional / ancillary services management 07/01/2024 8:30 AM EDT Ancillary Procedure [facility] [address] [facility] [place] [address] [facility] Start: 06-11-2024 End: 06-11-2024 Patient encounter procedure 06/11/2024 8:40 AM EST Office Visit [facility] [address] [place] [address] Aquiles Campbell, DO [address] [place] [address] [facility] Start: 06-03-2024 End: 06-03-2024 Patient encounter procedure 06/03/2024 2:20 PM EST Routine [facility] [address] [facility] [place] [address] Aquiles Campbell, DO [address] [place] [address] [facility] Start: 06-03-2024 End: 08-01-2024 [...] on above: Arrived Start: 04-11-2024 Urine culture [facility] Start: 04-11-2024 Bacteria identified in Urine by Culture Urine Culture [facility] Start: 04-11-2024 End: 04-11-2024 ambulatory 04/11/2024 1:00 PM EST Initial [facility] [address] [address] [facility] Start: 04-11-2024 End: 04-11-2024 Professional / ancillary services management 04/11/2024 12:30 PM EST Ancillary Procedure [facility] [address] [facility] [place] [address] [facility] Start: 02-15-2024 End: 02-15-2024 Patient encounter procedure [facility] Comment on above: Arrived Start: 02-12-2024 End: 02-12-2024 Patient encounter procedure 02/12/2024 8:50 AM EST Office Visit [facility] [address] [place] [phone] Aquiles Campbell, DO [address] [facility] [place] [address] Arrived [facility] Comment on above: Arrived Start: 2009 Screening for malign ant neoplasm of cervix Pap Smear [facility] Start: 11-29-2007 DTaP,Tdap and Td Vaccines (1 - Tdap) DTaP,Tdap and Td Vaccines (1 - Tdap) [facility] Start: 2006 Adult BMI Screening Adult BMI Screen ing [facility] Start: 2000 Depression Screening Depression Scre ening [facility] Start: 2000 Tobacco Screening Tobacco Screening [facility] CHLAMYDIA TRACHOMATI S (GENITO/STI) CHLAMYDIA TRACHOMATIS [...] with dates in second trimester Ordered: 08/27/2024 [facility] Comment on above: Ordered: 08/27/2024 Human papilloma viru s DNA [Presence] in Unspecified specimen by Probe with amplification HPV DNA probe, amplified Microbiology Routine Well woman exam with routine gynecological exam Ordered: 02/15/2024 [facility] Comment on above: Ordered: 02/15/2024 Neisseria gonorrhoea e DNA [Presence] in Unspecified specimen by LYNNETTE with probe detection Neisseria gonorrhea DNA probe, direct Lab Routine STD exposure Ordered: 06/03/2024 [facility] Comment on above: Ordered: 06/03/2024 SURESWAB(R) ADVANCED VAGINITIS PLUS, TMA SURESWAB(R) ADVANCED VAGINITIS PLUS, TMA Pathology and Cytology Routine STD exposure Ordered: 06/03/2024 [facility] Work Phone: Comment on above: Ordered: 06/03/2024 Payers Date Payer Category Payer Self-pay 2024 [employer] - O ANTH [id number] 2023 [employer] Blue Shield [id number] 2023 Unknown [id number] 1988 Unknown [id number] 2.16.840.1.795346.3.579. 2.593 1988 Unknown [id number] 2.16.840.1.669205.3.579. 2.593 1988 Unknown [id number] 2.16.840.1.602904.3.579. 2.593 1988 Unknown [id number] 2.16.840.1.752318.3.579. 2.593 1988 Unknown [id number] 2.16.840.1.651649.3.579. 2.593 1988 Unknown [id number] 2.16.840.1.774622.3.579. 2.593 1988 Unknown [id number] 2.16.840.1.754750.3.579. 2.593 1988 Unknown [id number] 2.16.840.1.629600.3.579. 2.593 1988 Unknown [id number] 2.16840.1.958684.3.579. 2.593 1988 Unknown [id number] 2.16.840.1.421602.3.579. 2.593 1988 Unknown [id number] 2.16.840.1.259055.3.579. 2.593 1988 Unknown [id number] 2.16.840.1.615281.3.579. 2.593 1988 Unknown [id number] 2.16.840.1.406436.3.579. 2.1286 1988 Unknown [id number] 2.16.840.1.667824.3.579. 2.1259 1988 Unknown [id number] 2.16.840.1.218857.3.579. 2.1259 1988 Unknown [id number] 2.16.840.1.750710.3.579. 2.1259 1988 Unknown [id number] 2.16.840.1.615245.3.579. 2.1259 1988 Unknown [id number] 2.16.840.1.673660.3.579. 2.9 1988 Unknown [id number] 2.16.840.1.706520.3.579. 2.9 1988 Unknown [id number] 2.16.840.1.576300.3.579. 2.9 1988 Unknown [id number] 2.16840.1.842219.3.579. 2.1258 1988 Unknown [id number] 2.16.840.1.541110.3.579. 2.1258 1988 Unknown [id number] 2.16.840.1.905626.3.579. 2.1258 1988 Unknown [id number] 2.840.1.336324.3.579. 2.1258 1988 Unknown [id number] 2.16840.1.911572.3.579. 2.1258 1988 Unknown [id number] 2.16.840.1.677567.3.579. 2.1258 1988 Unknown [id number] 2.16.840.1.554154.3.579. 2.9 1988 Unknown [id number] 2.16840.1.822361.3.579. 2.1258 1988 Unknown [id number] 2.16840.1.996333.3.579. 2.1259 1959 Private Health Insurance [id number] Unknown [id number] 2.16840.1.875830.3.579. 2.531 Unknown Erika BEST/MOLINA [id number] Social History Date Type Detail Facility Start: 12-01-2022 End: 08-07-2024 Tobacco smoking status MOIS Never smoked tobacco [facility] Start: 08-24-2023 End: 10-14-2024 Alcoholic beverage intake Lifetime non-drinker (finding) [facility] Start: 12-01-2022 End: 02-12-2024 History of Social function [facility] Start: 12-01-2022 End: 02-12-2024 Tobacco use panel [facility] Start: 12-01-2022 Education 21 [facility] Start: 12-01-2022 Alcohol Comment Caffeine intake: non e [facility] Start: 1988 Sex assigned at Not on file [facility] Start: 02-25-2024 [facility] Tobacco smoking stat RUSTIS Unknown if ever smoked [facility] Work Phone: Start: 04-12-2024 End: 08-05-2024 Sex Female (finding) [facility] Start: 1990 Sex Assigned At Female F [facility] Start: 08-07-2024 Tobacco use and exposure Smokeless tobacco non-user [facility] Equipment Procedure Code Equipment Code Equipment Origin al Text Equipment Identifier Dates 1 strip by In Vi tro route Daily Use in the morning prior to breakfast, 1 hour after each meal for a total of 4times daily. [id number] Start: 07-25-2024 End: 08-27-2024 1 each by In Vit ro route Daily Use to check FSBS four times daily [id number] Start: 07-25-2024 End: 08-27-2024 Clinical Notes 02-12-2024 to 10-14-2024 Daniela Candelaria LPN - 10/14/2024 2:30 PM BRAIN Schmidt - 09/30/2024 3:30 PM Tracey Marcial LPN - 09/17/2024 10:20 AM BRAIN Schmidt - 08/27/2024 8:50 AM BRIAN Schmidt - 02/15/2024 2:00 PM EST Note Date & Type Note Facility 10-14-2024 History of Presen t illness Narrative Reason for Appointment: Patient ID: Ed Murphy is a 33 y.o. female who presents for Routine Visit Patient presents today for Return OB appointment. MEDICATIONS Current Outpatient Medications Medication Instructions Qjidumwn-Bqb-Vb-FA ( 1 + IRON PO) ALLERGIES Allergies Allergen Reactions Cefadroxil Hives Other Reaction(s): hives, Unknown Other Reaction(s): hives, rash Latex Itching Other Reaction(s): Itching Other Reaction(s): Hives Paroxetine Other Reaction(s): Unknown PROBLEMS Active Ambulatory Problems Diagnosis Date Noted Anovulation 12/02/2022 DUB (dysfunctional uterine bleeding) 12/02/2022 Menstrual disorder 12/02/2022 Missed menses 12/02/2022 Yeast infection 12/02/2022 31 weeks gestation of ([facility]) 09/17/2024 Third trimester ([facility]) 09/17/2024 Multigravida of advanced maternal age in third trimester ([facility]) 09/17/2024 Resolved Ambulatory Problems Diagnosis Date Noted Bleeding in early ([facility]) 12/02/2022 Past Medical History: Diagnosis Date Frequent UTI Herpes History of chlamydia 2008 History of depression 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 Exam conducted with a stockroom clerk present. Vitals: Estimated body mass index is 42.67 kg/m as calculated from the following: Height as of 08/22/22: 5' 8.5 . Weight as of this encounter: 284 lb 12.8 oz. BP: 110/70 Patient's last menstrual period was 02/11/2024. ASSESSMENT & PLAN ICD-10-CM 1. 35 weeks gestation of ([facility]) Z3A.35 POCT urinalysis dipstick manually resulted 2. Third trimester ([facility]) Z34.93 POCT urinalysis dipstick manually resulted 3. Multigravida of advanced maternal age in third trimester ([facility]) O09.523 4. Excessive growth affecting management of , antepartum, single or unspecified fetus ([facility]) O36.60X0 5. Low iron E61.1 Patient presents today for a routine obstetrics appointment. Patient is currently 35w1d with a Estimated Date of Delivery: 11/17/24. Patient aware that Valtrex will be sent to [facility] for history of HSV. Patient will return to clinic in 1 week for routine OB appointment and GBS will be obtained at that time. Documented by Daniela Candelaria LPN... on behalf of: Aquiles Campbell DO documented in this encounter [facility] 09-30-2024 History of Presen t illness Narrative Reason for Appointment: Patient ID: Ed Murphy is a 33 y.o. female who presents for Routine Visit Patient presents today for Return OB appointment. MEDICATIONS Current Outpatient Medications Medication Instructions Alcohol Swabs (Alcohol Prep Pad) 70 % pads 1 Pad, Topical, Daily, Use four times daily to check FSBS. Blood Glucose Monitoring Suppl (D-Spaseebo Glucometer) w/Device kit 1 kit, Does not apply, Daily, Use four times daily to check FSBS. In the morning prior to breakfast & 1 hour after each meal for a total of 4times daily. Uvlsexgn-Evq-Gd-FA ( 1 + IRON PO) ALLERGIES Allergies Allergen Reactions Cefadroxil Hives Other Reaction(s): hives, Unknown Other Reaction(s): hives, rash Latex Itching Other Reaction(s): Itching Other Reaction(s): Hives Paroxetine Other Reaction(s): Unknown PROBLEMS Active Ambulatory Problems Diagnosis Date Noted Anovulation 12/02/2022 DUB (dysfunctional uterine bleeding) 12/02/2022 Menstrual disorder 12/02/2022 Missed menses 12/02/2022 Yeast infection 12/02/2022 31 weeks gestation of ([facility]) 09/17/2024 Third trimester ([facility]) 09/17/2024 Multigravida of advanced maternal age in third trimester ([facility]) 09/17/2024 Resolved Ambulatory Problems Diagnosis Date Noted Bleeding in early ([facility]) 12/02/2022 Past Medical History: Diagnosis Date Frequent UTI Herpes History of chlamydia 2008 History of depression 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 2011 Personal history of other medical treatment ([facility]) [place] teeth removed HISTORY PAST MEDICAL HISTORY SOCIAL HISTORY Past Medical History: Diagnosis Date Bleeding in early ([facility]) 12/02/2022 Frequent UTI Herpes History of chlamydia 2008 History of depression no meds 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 Third trimester ([facility]) Z34.93 POCT urinalysis dipstick manually resulted 2. 33 weeks gestation of ([facility]) Z3A.33 Return OB: Patient presents today [...] of: BRAIN Martinez documented in this encounter [facility] 09-17-2024 History of Presen t illness Narrative Reason for Appointment: Patient ID: Ed Murphy is a 33 y.o. female who presents for Routine Visit Patient presents today for Return OB appointment. MEDICATIONS Current Outpatient Medications Medication Instructions Alcohol Swabs (Alcohol Prep Pad) 70 % pads 1 Pad, Topical, Daily, Use four times daily to check FSBS. Blood Glucose Monitoring Suppl (D-Spaseebo Glucometer) w/Device kit 1 kit, Does not apply, Daily, Use four times daily to check FSBS. In the morning prior to breakfast & 1 hour after each meal for a total of 4times daily. 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 Exam conducted with a stockroom clerk present. 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 Patient going on a trip to [facility], she will return at 31 weeks. 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 Exam conducted with a stockroom clerk present. Vitals: Estimated body mass index [...] not cleared. Patient will be referred to [facility] for Level II Scan and consult if needed. Discussed patient upcoming vacation and precautions given. Patient will have growth scan start at 28 weeks gestation. Patient to return to clinic in 4 weeks. Patient to drop off FSBS results for routine in the meantime. Documented by Daniela Candelaria LPN on behalf of: Aquiles Campbell DO documented in this encounter [facility] 06-03-2024 History of Presen t illness Narrative Reason for Appointment: Patient ID: Ed Murphy is a 33 y.o. female who presents for Routine Visit Patient presents today for Return OB appointment. MEDICATIONS Current Outpatient Medications Medication Instructions Ycnujccy-Mta-Vt-FA ( 1 + IRON PO) Progesterone 200 [...] 2011 Personal history of other medical treatment [place] teeth removed HISTORY PAST MEDICAL HISTORY SOCIAL HISTORY Past Medical History: Diagnosis Date Bleeding in early 12/02/2022 Frequent UTI Herpes History of chlamydia 2008 History of depression no meds 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 2011 Personal history of other medical treatment Frenectomy x2 [place] teeth removed Social History Tobacco Use Smoking [...] nursing note reviewed. Exam conducted with a stockroom clerk present. Vitals: Estimated body mass index [...] off on referral at this time. Discussed Polvadera testing if patient desires to check for genetic testing and patient declines at this time as well. Obtained vaginal cultures without issue & patient to return to clinic in 4 weeks for routine OB appointment. Documented by Daniela Candelaria LPN on behalf of: Aquiles Campbell DO documented in this encounter [facility] 05-02-2024 History of Presen t illness Narrative Reason for Appointment: Patient ID: Ed Murphy is a 33 y.o. female who presents for Routine Visit Patient presents today for Return OB appointment. MEDICATIONS Current Outpatient Medications Medication Instructions Rhvzfleq-Qgm-Iv-FA ( 1 + IRON PO) Vit-Fe Pjeavcg-VV-HWB ( VITAMIN/MIN +DHA PO) Progesterone 200 MG [...] 2011 Personal history of other medical treatment [place] teeth removed HISTORY PAST MEDICAL HISTORY SOCIAL HISTORY Past Medical History: Diagnosis Date Bleeding in early 12/02/2022 Frequent UTI Herpes History of chlamydia 2008 History of depression no meds 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 2011 Personal history of other medical treatment Frenectomy x2 [place] teeth removed Social History Tobacco Use Smoking [...] of: ray martinez documented in this encounter [facility] 02-15[facility]24 History of Presen t illness Narrative Reason for Appointment: Patient ID: Ed Murphy is a 33 y.o. female who presents for Well Women Visit Patient presents today for Annual Exam. MEDICATIONS Current Outpatient Medications Medication Instructions co-enzyme Q-10 30 mg, Oral, Daily guaiFENesin (MUCINEX) 1,200 mg, Oral, 2 times daily, Do not crush, chew, or split. 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 Exam conducted with a stockroom clerk present. Vitals: Estimated body mass index [...] Daniel Pereira LPN on behalf of: BRAIN Martinze documented in this encounter [facility] 02-12-2024 History of Presen t illness Narrative Reason for Appointment: Patient ID: Ed Murphy is a 33 y.o. female who presents for Infertility (Pt present today to discuss infertility) Patient presents today for Consult appointment. 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 Exam conducted with a stockroom clerk present. Vitals: Estimated body mass index [...] Aquiles Campbell DO documented in this encounter [facility] Healthcare Evaluation note Diagnosis Anovulation Female infertility associated with anovulation documented [facility] this encounter [facility] Diagnosis Well woman exam with routine gynecological exam Routine gynecological examination documented in this encounter [facility] noteNo assessment information availableSt[facility] Work Phone: Evaluation note* Diagnosis [...] encounter [facility] HealthcareInstructionsNot on filedocumented in this encounterMad[facility] Summary Purpose Family History No Family History Records FoundNo Family History Records FoundNo Family History Records FoundNo Family History Records FoundNo Family History Records Found Advance Directives No Advanced Directives Records FoundNo Advanced Directives Records FoundNo Advanced Directives Records FoundNo Advanced Directives Records FoundNo Advanced Directives Records Found Additional Source Comments INFORMATION SOURCE (unrecogn ized section and content) DATE CREATED AUTHOR 07/05/2021 [facility] DATE CREATED AUTHOR AUTHOR'S ORGANIZ ATION 08/23/2022 [facility] DATE CREATED AUTHOR AUTHOR'S ORGANIZ ATION 04/19/2024 [facility] DATE CREATED AUTHOR AUTHOR'S ORGANIZ ATION 08/13/2024 [facility] DATE CREATED AUTHOR AUTHOR'S ORGANIZ ATION 10/18/2024 [facility] EPIC Reason for Visit [...] BE BASED ON THE PRIMARY CLINICAL RECORDS. [facility]. provides no warranty or guarantee of the accuracy or completeness of information in this document.
[2024-10-22 09:47] VITALS: BP 114/62; PULSE 97
== END 2024-10-22 10:12 | disposition home or self-care (01) ==
LOC: US 09:00 → FBC 09:01
PROVIDERS: Visit Provider Obstetrics & Gynecology
DX: O09.523 Supervision of elderly multigravida, third trimester (principal); O36.63X0 Maternal care for excessive fetal growth, third trimester, not applicable or unspecified; Z3A.36 36 weeks gestation of pregnancy
CPT/HCPCS: 76818

== ENCOUNTER 2024-10-25 08:00 | Outpatient (OUT) | payer BC, SELFPAY ==
--- OUTSIDE RECORDS SUMMARY | 2024-10-14 14:00 | XMS_ITS | Encounter Summary ---
Author Organization [facility] Address [address] [place] [address] Care Team Providers Care Physician General Internal Medicine Name Role Phone Unavailable Primary Care Provider Unavailabl e Encounter Details Date Type Department Care Team (Latest Contact Info) Description 10/14/2024 2:00 PM EDT Ancillary Procedure [facility] OB [address] [place] [address] Multigravida of advanced maternal age in third trimester ([facility]); H/O miscarriage, currently ([facility]) Social History Tobacco Use Types Packs/Day [...] Start Date Job End Date Works at [employer] Not on file Not on file Not on file documented as of this encounter Plan of Treatment Upcoming Encounters Date Type Department Care Team (Late st Contact Info) Description 10/28/2024 11:20 AM EDT Routine [facility] [address] [place] [address] Theodore Campbell, DO [address] [place] [address] Dr Leonard Chu [place] [phone] documented as of this encounter Procedures Procedure Name Priority Date/Time Associated Diagnosis Comments US OB FOLLOW UP TRANSABDOMINAL APPROACH Routine 10/14/2024 2:25 PM EDT Multigravida of advanced maternal age in third trimester ([facility]) H/O miscarriage, currently ([facility]) documented in this encounter Results * [...] of advanced maternal age in third trimester ([facility]) H/O miscarriage, currently ([facility]) documented in this encounter
--- OUTSIDE RECORDS SUMMARY | 2024-10-14 14:30 | XMS_ITS | Encounter Summary ---
Author Organization [facility] Address [address] [place] [address] Care Team Providers Care Sample Worker Name Role Phone Unavailable Primary Care Provider Unavailabl e Reason for Visit * Reason Comments Routine Visit Encounter Details Date Type Department Care Team (Late st Contact Info) Description 10/14/2024 2:30 PM EDT Routine [facility] OB [address] [place] [phone] Theodore Campbell, DO [address] [facility] [address] Aisha [place], [facility] 35 weeks gestation of ([facility]); Third trimester ([facility]); Multigravida of advanced maternal age in third trimester ([facility]); Excessive growth affecting management of , antepartum, single or unspecified fetus ([facility]); Low iron; HSV infection Social History [...] Start Date Job End Date Works at [employer] Not on file Not on file Not [...] this encounter Progress Notes * Daniela Candelaria, MOBILE PRODUCT MANAGER - 10/14/2024 2:30 PM EDT Reason for Appointment: Patient ID: Beulah Murphy is a 33 y.o. female who presents for Routine Visit Patient presents today for Return OB appointment. MEDICATIONS Current Outpatient Medications Medication Instructions Vtzoqegt-Tze-Jc-FA ( 1 + IRON PO) ALLERGIES Allergies Allergen Reactions Cefadroxil Hives Other Reaction(s): hives, Unknown Other Reaction(s): hives, rash Latex Itching Other Reaction(s): Itching Other Reaction(s): Hives Paroxetine Other Reaction(s): Unknown PROBLEMS Active Ambulatory Problems Diagnosis Date Noted Anovulation 12/02/2022 DUB (dysfunctional uterine bleeding) 12/02/2022 Menstrual disorder 12/02/2022 Missed menses 12/02/2022 Yeast infection 12/02/2022 31 weeks gestation of ([facility]) 09/17/2024 Third trimester ([facility]) 09/17/2024 Multigravida of advanced maternal age in third trimester ([facility]) 09/17/2024 Resolved Ambulatory Problems Diagnosis Date Noted Bleeding in early ([facility]) 12/02/2022 Past Medical History: Diagnosis Date Frequent UTI Herpes History of chlamydia 2008 History of depression 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 2011 Personal history of other medical treatment ([facility]) [place] teeth removed HISTORY PAST MEDICAL HISTORY SOCIAL HISTORY Past Medical History: Diagnosis Date Bleeding in early ([facility]) 12/02/2022 Frequent UTI Herpes History of chlamydia 2008 History of depression no meds 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 Personal history of other medical treatment Frenectomy ([facility]) x2 [place] teeth removed Social History Tobacco Use Smoking [...] nursing note reviewed. Exam conducted with a coke still cleaner present. Vitals: Estimated body mass index is 42.67 kg/m² as calculated from the following: Height as of 08/22/22: 5' 8.5 . Weight as of this encounter: 284 lb 12.8 oz. BP: 110/70 Patient's last menstrual period was 02/11/2024. ASSESSMENT & PLAN ICD-10-CM 1. 35 weeks gestation of ([facility]) Z3A.35 POCT urinalysis dipstick manually resulted 2. Third trimester ([facility]) Z34.93 POCT urinalysis dipstick manually resulted 3. Multigravida of advanced maternal age in third trimester ([facility]) O09.523 4. Excessive growth affecting management of , antepartum, single or unspecified fetus ([facility]) O36.60X0 5. Low iron E61.1 Patient presents today for a routine obstetrics appointment. Patient is currently 35w1d with a Estimated Date of Delivery: 11/17/24. Patient aware that [facility] HSV. Patient will return to clinic in 1 week for routine OB appointment and GBS will be obtained at that time. Documented by Daniela Candelaria LPN... on behalf of: Theodore Campbell DO documented in this encounter Plan of Treatment Upcoming Encounters Date Type Department Care Team (Late st Contact Info) Description 10/28/2024 11:20 AM EDT Routine [facility] OB [address] [place] [phone] Theodore Campbell DO [address] [facility] [place] [address] documented as of this encounter Procedures Procedure Name Priority Date/Time Associated Diagnosis Comments POCT URINALYSIS DIPSTICK Routine 10/14/2024 3:18 PM EDT 35 weeks gestation of ([facility]) Third trimester ([facility]) documented in this encounter Results [...] Visit Diagnoses Diagnosis 35 weeks gestation of ([facility]) Third trimester ([facility]) state, incidental Multigravida of advanced maternal age in third trimester ([facility]) Excessive growth affecting management of , antepartum, single or unspecified fetus ([facility]) Low iron Unspecified iron deficiency anemia HSV infection Herpes simplex without mention of complication documented in this encounter
--- OUTSIDE RECORDS SUMMARY | 2024-10-21 14:00 | XMS_ITS | Encounter Summary ---
Author Organization [facility] Address [address] [place] [address] Care Team Providers Care Training Instructor Name Role Phone Unavailable Primary Care Provider Unavailabl e Reason for Visit * Reason Comments Routine Visit Encounter Details Date Type Department Care Team (Late st Contact Info) Description 10/21/2024 2:00 PM EDT Routine [facility] BCP OB [address] [place] [phone] Theodore Campbell, DO [address] [facility] [address] [place], [facility] Third trimester ([facility] 36 weeks gestation of ([facility]); Multigravida of advanced maternal age in third trimester ([facility]); HSV infection; Excessive growth affecting management of , antepartum, single or unspecified fetus ([facility]) Social History Tobacco Use Types Packs/Day Years [...] Start Date Job End Date Works at [employer] Not on file Not on file Not [...] appointment. MEDICATIONS Current Outpatient Medications Medication Instructions Amptwjqx-Vlu-Qw-FA ( 1 + IRON PO) valACYclovir (VALTREX) [...] Yeast infection 12/02/2022 31 weeks gestation of ([facility]) 09/17/2024 Third trimester ([facility]) 09/17/2024 Multigravida of advanced maternal age in third trimester ([facility]) 09/17/2024 Resolved Ambulatory Problems Diagnosis Date Noted Bleeding in early ([facility]) 12/02/2022 Past Medical History: Diagnosis Date Frequent UTI Herpes History of chlamydia 2008 History of depression 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 Personal history of other medical treatment ([facility]) [place] teeth removed HISTORY PAST MEDICAL HISTORY SOCIAL HISTORY Past Medical History: Diagnosis Date Bleeding in early ([facility]) 12/02/2022 Frequent UTI Herpes History of chlamydia 2007 History of depression no meds 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 Personal history of other medical treatment Frenectomy ([facility]) x2 [place] teeth removed Social History Tobacco Use Smoking [...] nursing note reviewed. Exam conducted with a metal reclamation kettle tender present. Vitals: Estimated body mass index is 42.44 kg/m² as calculated from the following: Height as of 08/22/22: 5' 8.5 . Weight as of this encounter: 283 lb 4 oz. BP: 110/72 Patient's last menstrual period was 02/11/2024. ASSESSMENT & PLAN ICD-10-CM 1. Third trimester ([facility]) Z34.93 CULTURE, GROUP B STREP WITH SUSCEPTIBLITY CULTURE, GROUP B STREP WITH SUSCEPTIBLITY POCT urinalysis dipstick manually resulted 2. 36 weeks gestation of ([facility]) Z3A.36 3. Multigravida of advanced maternal age in third trimester ([facility]) O09.523 4. HSV infection B00.9 5. Excessive growth affecting management of , antepartum, single or unspecified fetus ([facility]) O36.60X0 Patient is doing well but has [...] AM EDT Routine [facility] BCP OB [address] [place] [id number] Theodore Campbell DO [address] [place] [address] Scheduled Orders Name Type Priority Associated Diagnoses Orde r Schedule CULTURE, GROUP B STREP WITH SUSCEPTIBLITY Lab Routine Third trimester ([facility]) Expected: 10/21/2024, Expires: 10/21/2025 documented as of this encounter Procedures Procedure Name Priority Date/Time Associated Diagnosis Comments POCT URINALYSIS DIPSTICK Routine 10/21/2024 2:22 PM EDT Third trimester ([facility]) documented in this encounter Results * POCT [...] - Positive Urine 10/21/2024 2:22 PM EDT Result [facility] Theodore Campbell DO POINT OF CARE TEST ENTER/EDIT OR DERABLES Final Result documented in this encounter Visit Diagnoses Diagnosis Third trimester ([facility]) state, incidental 36 weeks gestation of ([facility]) Multigravida of advanced maternal age in third trimester ([facility]) HSV infection Herpes simplex without mention of complication Excessive growth affecting management of , antepartum, single or unspecified fetus ([facility]) documented in this encounter
--- OUTSIDE RECORDS SUMMARY | 2024-10-25 08:02 | XMS_ITS | Encounter Summary ---
Author Organization [facility] Address [address] [place] [address] Care Team Providers Care Heel Lift Gouger Name Role Phone Unavailable Primary Care Provider Unavailabl e Encounter Details Date Type Department Care Team (Late st Contact Info) Description 04/15/2024 Abstract [facility] [address] [place] [address] Theodore Campbell [address] [place], [facility]11 Social History Tobacco Use Types Packs/Day Years [...] Start Date Job End Date Works at [employer] Not on file Not on file Not on file documented as of this encounter Plan of Treatment Upcoming Encounters Date Type Department Care Team (Late st Contact Info) Description 10/28/2024 11:20 AM EDT Routine [facility] [address] [place] [address] Theodore Campbell, [address] Aisha [place], [place] [id number] documented as of this encounter Visit Diagnoses Not on filedocumented in this encounter
--- OUTSIDE RECORDS SUMMARY | 2024-10-25 08:02 | XMS_ITS | Encounter Summary ---
Author Organization [facility] Address [address] [facility] [place] [address] Care Team Providers Care Talent Advisor Name Role Phone Unavailable Primary Care Provider Unavailabl e Encounter Details Date Type Department Care Team (Late st Contact Info) Description 04/12/2024 Abstract [facility] OB [address] [place] [address] Theodore Campbell [address] Aisha [place], [facility]11 Social History Tobacco Use Types Packs/Day [...] Start Date Job End Date Works at [employer] Not on file Not on file Not on file documented as of this encounter Plan of Treatment Upcoming Encounters Date Type Department Care Team (Late st Contact Info) Description 10/28/2024 11:20 AM EDT Routine [facility] OB [address] [place] [address] Theodore Campbell, [address] [place]isha [place], [place] [id number] documented as of this encounter Visit Diagnoses Not on filedocumented in this encounter
--- OUTSIDE RECORDS SUMMARY | 2024-10-25 08:03 | XMS_ITS | Encounter Summary ---
Author Organization [facility] Address [address] [place] [address] Care Team Providers Care Incubator Tender Name Role Phone Unavailable Primary Care Provider Unavailabl e Encounter Details Date Type Department Care Team (Late st Contact Info) Description 10/16/2024 Abstract [facility] OB [address] [place] [address] Shanna Bailon MA Social History Tobacco [...] Start Date Job End Date Works at [employer] Not on file Not on file Not on file documented as of this encounter Plan of Treatment Upcoming Encounters Date Type Department Care Team (Late st Contact Info) Description 10/28/2024 11:20 AM EDT Routine [facility] [address] [place] [address] Theodore Campbell, DO [address] [place] [address] documented as of this encounter Visit Diagnoses Not on filedocumented in this encounter
--- OUTSIDE RECORDS SUMMARY | 2024-10-25 08:03 | XMS_ITS | Encounter Summary ---
Author Organization [facility] Address [address] [place] [address] Care Team Providers Care Hard Candy Spinner Name Role Phone Unavailable Primary Care Provider Unavailabl e Encounter Details Date Type Department Care Team (Late st Contact Info) Description 10/21/2024 Bamboo flowsheet [facility] [address] [place] [address] Theodore Campbell [address] A[place], [facility]11 Social History Tobacco Use Types [...] Start Date Job End Date Works at [employer] Not on file Not on file Not on file documented as of this encounter Plan of Treatment Upcoming Encounters Date Type Department Care Team (Late st Contact Info) Description 10/28/2024 11:20 AM EDT Routine [facility] [address] [place] [address] Theodore Campbell, [address] [place] [address] documented as of this encounter Visit Diagnoses Not on filedocumented in this encounter
--- OUTSIDE RECORDS SUMMARY | 2024-10-25 08:03 | XMS_ITS | Encounter Summary ---
Author Organization [facility] tem Address [id number] [address] [place] [address] Care Team Providers Care Library Specialist Name Role Phone Unavailable Primary Care Provider Unavailabl e Encounter Details Date Type Department Care Team (Late st Contact Info) Description 08/07/2024 Orders Only Maternal- Medicine at [facility] [address] [place] [phone] Ref Prov, [place] [address] Social History Tobacco Use Types Packs/Day Years [...]
--- OUTSIDE RECORDS SUMMARY | 2024-10-25 08:03 | XMS_ITS | Encounter Summary ---
Author Organization [facility] Address [address] [place] [address] Care Team Providers Care Swiss Type Screw Machine Operator Name Role Phone Unavailable Primary Care [...] Start Date Job End Date Works at [employer] Not on file Not on file Not on file documented as of this encounter Plan of Treatment Upcoming Encounters Date Type Department Care Team (Late st Contact Info) Description 10/28/2024 11:20 AM EDT Routine [facility] [address] [place] [address] Theodore Campbell, DO [address] [place] [address] documented as of this encounter Visit Diagnoses Not on filedocumented in this encounter
--- OUTSIDE RECORDS SUMMARY | 2024-10-25 08:03 | XMS_ITS | Clinical Summary ---
Author Organization [facility] Address [address] [place] [address] Care Team Providers Care Pastoral Worker Name Role Phone Unavailable Primary Care Provider Unavailabl e Allergies Active Allergy Reactions Criticality Noted Date Comments Cefadroxil Hives 12/02/2022 Other Reaction(s): hives, Unknown Other Reaction(s): hives, rash Latex Itching 12/02/2022 Other Reaction(s): Itching Other Reaction(s): Hives Paroxetine 12/02/2022 Other Reaction(s): Unknown Medications Mtnataew-Phi-Fm-FA ( 1 + IRON PO) Active valACYclovir [...] Date Diagnosed Date 31 weeks gestation of ([facility]) 2024 Third trimester ([facility]) 09/17/2024 Multigravida of advanced mat ernal age in third trimester ([facility]) 09/17/2024 Anovulation 12/02/2022 DUB (dysfunctional uterine bleeding) 12/02/2022 Menstrual disorder 12/02/2022 Missed menses 12/02/2022 Yeast infection 12/02/2022 Estimated Date of Delivery Comme nts Yes 11/17/2024 Based on last me nstrual period of 02/11/2024 Resolved Problems Problem Noted Date Diagnosed Date Resolved Date Bleeding in early ([facility]) 12/02/2022 12/02/2022 Encounters Date Type Department Care Team Description 10/22/2024 Clinisync Result Encounter [facility] External Department Unsolicited Aquiles Campbell DO 10/21/2024 2:00 PM EDT Routine NOM[facility] [address] [place] [address] Aquiles Campbell, Third trimester ([facility]); 36 weeks gestation of ([facility]); Multigravida of advanced maternal age in third trimester ([facility]); HSV infection; Excessive growth affecting management of , antepartum, single or unspecified fetus ([facility]) 10/21/2024 Bamboo flowsheet [facility] [place] [address] [place] [address] Aquiles Campbell DO 10/16/2024 Abstract [facility] [place] [address] [place] [address] Shanna Bailon MA 10/16/2024 Clinisync Result Encounter [facility]OMS External Department Unsolicited Aquiles Campbell DO 10/14/2024 2:30 PM EDT Routine NOM[facility] [address] [place] [address] Aquiles Campbell, DO 35 weeks gestation of ([facility]); Third trimester ([facility]); Multigravida of advanced maternal age in third trimester ([facility]); Excessive growth affecting management of , antepartum, single or unspecified fetus ([facility]); Low iron; HSV infection 10/14/2024 2:00 PM EDT Ancillary Procedure [facility] [address] [place] [address] Multigravida of advanced maternal age in third trimester ([facility]); H/O miscarriage, currently ([facility]) 10/14/2024 Abstract [facility] [address] [place] [address] Aquiles Campbell, DO 10/14/2024 Travel 10/09/2024 Clinisync Result Encounter [facility] External Department Unsolicited Aquiles Campbell, DO 10/02/2024 Clinisync Result Encounter [facility] External Department Unsolicited Aquiles Campbell, DO 09/30/2024 3:30 PM EDT Routine [facility]OM[facility] [address] [place] [address] Flower Joyce PA Third trimester ([facility]); 33 weeks gestation of ([facility]) 09/30/2024 Bamboo flowsheet NOM[facility] [address] [place] [address] Flower Joyce PA 09/26/2024 Travel 09/25/2024 Clinisync Result Encounter [facility] External Department Unsolicited Aquiles Campbell, DO 09/23/2024 Abstract [facility] [address] [place] [address] Aquiles Campbell, 09/17/2024 10:20 AM EDT Routine [facility] [address] [place] [address] Aquiles Campbell DO 31 weeks gestation of ([facility]); Third trimester ([facility]); Multigravida of advanced maternal age in third trimester ([facility]); Excessive growth affecting management of , antepartum, single or unspecified fetus ([facility]) 09/17/2024 9:30 AM EDT Ancillary Procedure [facility] [address] [place] [address] Size of fetus inconsistent with dates in second trimester ([facility]) 09/16/2024 Travel 09/14/2024 Travel 08/28/[address] [place] [address] Vicki Aguirre LPN 08/27/2024 8:50 AM EDT Routine NOM[facility] [address] [place] [address] Flower Joyce PA Size of fetus inconsistent with dates in second trimester ([facility]) (Primary Dx); Third trimester ([facility]); 28 weeks gestation of ([facility]) 08/27/2024 Clinisync Result Encounter [facility] External Department Unsolicited Flower Joyce PA 08/27/2024 Bamboo flowsheet NOM[facility] [address] [place] [address] Flower Joyce PA 08/26/2024 Travel 08/20/2024 Abstract [facility] [address] [place] [address] Shanna Bailon MA 08/01/2024 9:10 AM EDT Routine [facility] [address] [place] [address] Aquiles Campbell DO Second trimester ([facility]); 24 weeks gestation of ([facility]); Multigravida of advanced maternal age in second trimester ([facility]) 08/01/2024 8:30 AM EDT Ancillary Procedure [facility] [address] [place] [address] Encounter for follow-up ultrasound of anatomy ([facility]) 08/01/2024 Telephone [facility] [address] [place] [address] Daniela Candelaria LPN 07/31/2024 Travel from Last 3 Months Family History [...] Start Date Job End Date Works at [employer] Not on file Not on file Not on file Last Filed Vital Signs Vital Sign Reading Time Taken Comments Blood Pressure 110/72 10/21/2024 2:17 PM EDT Pulse - - Temperature - - Respiratory Rate - - Oxygen Saturation - - Inhaled Oxygen Concentration - - Weight 128 kg (283 lb 4 oz) 10/21/2024 2:17 PM E DT Height 174 cm (5' 8.5 ) 08/22/2022 12:00 PM EDT Body Mass Index 42.44 08/22/2022 12:00 PM EDT Plan of Treatment Upcoming Encounters Date Type Department Care Team (Late st Contact Info) Description 10/28/2024 11:20 AM EDT Routine [facility] [address] [place] [address] Aquiles Campbell, DO [address] [place] [address] Procedures Procedure Name Priority Date/Time Associated Diagnosis Comments US OB BPP W NON-STRESS 10/22/2024 10:04 AM EDT POCT URINALYSIS DIPSTICK Routine 10/21/2024 2:22 PM EDT Third trimester ([facility]) US OB BPP W NON-STRESS 10/16/2024 7:15 AM EDT POCT URINALYSIS DIPSTICK Routine 10/14/2024 3:18 PM EDT 35 weeks gestation of ([facility]) Third trimester ([facility]) US OB FOLLOW UP TRANSABDOMINAL APPROACH Routine 10/14/2024 2:25 PM EDT Multigravida of advanced maternal age in third trimester ([facility]) H/O miscarriage, currently ([facility]) US OB BPP W NON-STRESS 10/09/2024 7:52 AM EDT US OB BPP W NON-STRESS 10/02/2024 8:07 AM EDT POCT URINALYSIS DIPSTICK Routine 09/30/2024 3:51 PM EDT Third trimester ([facility]) US OB BPP W NON-STRESS 09/25/2024 7:58 AM EDT POCT URINALYSIS DIPSTICK Routine 09/17/2024 10:37 AM EDT 31 weeks gestation of ([facility]) Third trimester ([facility]) Multigravida of advanced maternal age in third trimester ([facility]) US OB FOLLOW UP TRANSABDOMINAL APPROACH Routine 09/17/2024 9:58 AM EDT Size of fetus inconsistent with dates in second trimester ([facility]) ALL CBC WITH AUTO DIFF Routine 10:10 AM EDT MLR HEMOGLOBIN A1C Routine 08/27/2024 10 :10 AM EDT POCT URINALYSIS DIPSTICK Routine 08/27/2024 9:26 AM EDT Third trimester ([facility]) 28 weeks gestation of ([facility]) US OB LIMITED 1+ FETUSES Routine 08/01/2024 9:02 AM EDT Encounter for follow-up ultrasound of anatomy ([facility]) from Last 3 Months Results * US OB BPP W NON-STRESS (10/22/2024 10:04 AM EDT) Only the most recent of5 resultswithin the time period is included. Anatomical Region Laterality Modality Other 10/22/2024 10:0 4 AM EDT Narrative 10/22/2024 10:07 AM EDT The [address] [address] Ultrasound Report Signed Patient: ED SILVA MR#: [id number] : 1990 Acct:[id number] Age/Sex: 33 / F ADM Date: 10/22/24 Loc: [facility] 254-[address]: Aquiles Campbell D.O. Ordering Physician: Aquiles Campbell D.O. Date of Service: 10/22/24 Procedure(s): US OB BPP w non-stress Accession Number(s): [id number] cc: Aquiles Campbell D.O.; Physician,Non-Staff M.D. The [address] [address] Patient Name: ED SILVA MRN: [id number] date: 1990 Sex: F Assigned Patient Location: [facility] Current Patient Location: [facility] Accession/Order Number: [id number] Exam Date: 10/22/2024 10:02 Report Date: 10/22/2024 10:04 At the request of: AQUILES CAMPBELL DO Procedure: US OB BPP w non-stress BIOPHYSICAL PROFILE: CLINICAL INFORMATION: MULTIGRAVIDA OF ADVANCED MATERNAL AGE O09.523 COMPARISON: 10/15/2024 There is a single live intrauterine gestation in cephalic presentation. The reported gestational age is 36 weeks 2 days. The heart rate measures 142 beats per minute. FINDINGS: TONE: 1 or [...] greater than 2 cm [Y] 2/2 FRANK: 17.8 cm. This is in upper normal range. Total score: 8/8 US/US OB BPP w non-stress IMPRESSION: NORMAL BIOPHYSICAL PROFILE Impression dictated by: Alexus De La Torre M.D. 10/22/2024 10:04 AM Dictation Location: [place] [address] Electronically authenticated by: [id number] Y Date: 10/22/2024 10:04 Dictated By: Alexus De La Torre M.D. Signed By: 10/22/24 1007 DD/ 1004 TD/TT: Partition Assembly Machine Operator: Procedure Note Radiology, Radiologist, - 10/22/2024 [place] [address] Ultrasound Report Signed Patient: ED SILVA LMR#: [id number] : 1990Acct:[id number] Age/Sex: 33 / FADM Date: 10/22/24 Loc: [facility] 254-[address]: Aquiles Campbell D.O. Ordering Physician: Aquiles Campbell D.O. Date of Service: 10/22/24 Procedure(s): US OB BPP w non-stress Accession Number(s): [id number] cc: Aquiles Campbell D.O.; Physician,Non-Staff [facility] [place] [id number] Patient Name: ED SILVA MRN: [id number] date: 1990 Sex: F Assigned Patient Location: [facility] Current Patient Location: [facility] Accession/Order Number: [id number] Exam Date: 10/22/2024 10:02 Report Date: 10/22/2024 10:04 At the request of: AQUILES CAMPBELL DO Procedure: US OB BPP w non-stress BIOPHYSICAL PROFILE: CLINICAL INFORMATION: MULTIGRAVIDA OF ADVANCED MATERNAL AGE O09.523 COMPARISON: 10/15/2024 There is a single live intrauterine gestation in cephalic presentation.The reported gestational age is 36 weeks 2 days. The heart ratemeasures 142 beats per minute. FINDINGS: TONE: 1 or [...] greater than 2 cm [Y] 2/2 FRANK: 17.8 cm. This is in upper normal range. Total score: 8/8 US/US OB BPP w non-stress IMPRESSION: NORMAL BIOPHYSICAL PROFILE Impression dictated by: Alexus De La Torre M.D. 10/22/2024 10:04 AM Dictation Location: [place] [address] Electronically authenticated by: [id number] Y Date: 0:04 Dictated By: Alexus De La Torre M.D. Signed By:10/22/24 1007 DD/ 1004 TD/TT: Partition Assembly Machine Operator: us Aquiles Campbell DO [facility] Final Result * POCT urinalysis dipstick manually resulted (10/21/2024 2:22 PM EDT) Only the most recent of5 resultswithin the time period is included. Color, [...] - Positive Urine 10/21/2024 2:22 PM EDT us Aquiles Adrian DO POINT [...] Campos Vital MD us Aquiles Adrian DO IM OB US PROCEDURES Final Resul t * MLR HEMOGLOBIN A1C (08/27/2024 10:10 AM EDT) GLYCOHEMOGLOBIN A1C 5.6 4.5 - 6.2 % [facility] Comment: ADA RECOMMENDED LIMIT 4.0 - 6.0 ADA THERAPEUTIC TARGET < 7.0 ACTION SUGGESTED > 7.0 ESTIMATED AVERAGE GLUCOSE 114 mg/dL TB 08/27/2024 10:1 0 AM EDT 08/27/2024 10:21 AM EDT Narrative [facility] - 08/27/2024 10:36 AM EDT [facility] [place] [facility] [facility] Final Result [facility] TB * (ABNORMAL) ALL CBC WITH AUTO DIFF (08/27/2024 10:10 AM EDT) Pathologist [facility] TB WBC 10.0 4.0 - 11.0 10 [...] II, MD, PHD at 01-Aug-2024 11:20:36 PM [facility] Procedure Note Meghann Knight MD - [...] signed by MEGHANN KNIGHT II, MD, PHD 11:20:36 PM [facility] us Aquiles Campbell DO IMG OB US PROCEDURES Final Resul t from Last 3 Months Insurance [facility]
--- OUTSIDE RECORDS SUMMARY | 2024-10-25 08:03 | XMS_ITS | Encounter Summary ---
Author Organization [facility] Address [address] [facility] [place] [address] Care Team Providers Care Chemist Instrumentation Name Role Phone Unavailable Primary Care Provider Unavailabl e Encounter Details Date Type Department Care Team (Late st Contact Info) Description 07/25/2024 Abstract [facility] OB [address] [place] [address] Theodore Campbell [address] [place], [facility]11 Social History Tobacco Use Types Packs/Day Years [...] Start Date Job End Date Works at [employer] Not on file Not on file Not on file documented as of this encounter Plan of Treatment Upcoming Encounters Date Type Department Care Team (Late st Contact Info) Description 10/28/2024 11:20 AM EDT Routine [facility] OB [address] [place] [address] Theodore Campbell, [address] [place], [place] [address] documented as of this encounter Visit Diagnoses Not on filedocumented in this encounter
--- OUTSIDE RECORDS SUMMARY | 2024-10-25 08:03 | XMS_ITS | Encounter Summary ---
Author Organization [facility] Address [address] [place] [address] Care Team Providers Care Placement Officer Name Role Phone Unavailable Primary Care Provider Unavailabl e Encounter Details Date Type Department Care Team (Late st Contact Info) Description 10/22/2024 Clinisync Result Encounter [facility] External Department Unsolicited Aquiles Campbell DO [address] [place] [address] Social History Tobacco Use Types Packs/Day Years [...] Start Date Job End Date Works at [employer] Not on file Not on file Not on file documented as of this encounter Plan of Treatment Upcoming Encounters Date Type Department Care Team (Late st Contact Info) Description 10/28/2024 11:20 AM EDT Routine [facility] OB [address] [place] [phone] Aquiles Campbell DO [address] [facility] [address] [place] [address] documented as of this encounter Procedures Procedure Name Priority Date/Time Associated Diagnosis Comments US OB BPP W NON-STRESS 10/22/2024 10:04 AM EDT documented in this encounter Results * US OB BPP W NON-STRESS (10/22/2024 10:04 AM EDT) Anatomical Region Laterality Modality Other 10/22/2024 10:0 4 AM EDT Narrative 10/22/2024 10:07 [place] [address] Ultrasound Report Signed Patient: ED SILVA MR#: [id number] : 1990 Acct:[id number] Age/Sex: 33 / F ADM Date: 10/22/24 Loc: [facility] 254-[address]: Aquiles Campbell D.O. Ordering Physician: Aquiles Campbell D.O. Date of Service: 10/22/24 Procedure(s): US OB BPP w non-stress Accession Number(s): [id number] cc: Aquiles Campbell D.O.; Physician,Non-Staff Hussein [address] [address] Patient Name: ED SILVA MRN: [facility]:[id number] date: 1990 Sex: F Assigned Patient Location: [facility] Current Patient Location: [facility] Accession/Order Number: [id number] Exam Date: 10/22/2024 10:02 Report Date: 10/22/2024 [...] Torre M.D. 10/22/2024 10:04 AM Dictation Location: [place] [address] Electronically authenticated by: [id number] Y Date: 10/22/2024 10:04 Dictated By: Alexus De La Torre M.D. Signed By: 10/22/24 1007 DD/ 1004 TD/TT: Medical Care Manager: Procedure Note Radiology, Radiologist, MD - 10/22/2024 [place] [address] Ultrasound Report Signed Patient: ED SILVA R#: [id number] : 1990Acct:[id number] Age/Sex: 33 / FADM Date: 10/22/24 Loc: [facility] 254-[address]: Aquiles Campbell D.O. Ordering Physician: Aquiles Campbell D.O. Date of Service: 10/22/24 Procedure(s): US OB BPP w non-stress Accession Number(s): [id number] cc: Aquiles Campbell D.O.; Physician,Non-Staff Hussein The [address] [address] Patient Name: ED SILVA MRN: [id number] date: 1990 Sex: F Assigned Patient Location: [facility] Current Patient Location: [facility] Accession/Order Number: [id number] Exam Date: 10/22/2024 10:02 Report Date: 10/22/2024 [...] Torre M.D. 10/22/2024 10:04 AM Dictation Location: [place] [address] Electronically authenticated by: [id number] Y Date: 0:04 Dictated By: Alexus De La Torre M.D. Signed By:10/22/24 1007 DD/ 1004 TD/TT: Medical Care Manager: Aquiles Campbell DO [facility] Final Result documented in this encounter Visit Diagnoses Not on filedocumented in this encounter
--- OUTSIDE RECORDS SUMMARY | 2024-10-25 08:03 | XMS_ITS | Encounter Summary ---
Author Organization [facility] Address [address] [place] [address] Care Team Providers Care Technical Sales Director Name Role Phone Unavailable Primary Care Provider Unavailabl e Encounter Details Date Type Department Care Team (Late st Contact Info) Description 12/01/2022 Abstract [facility] OB [address] [facility] [address] [place] [phone] Toi Maradiaga, DO [address] [facility] [address] [place] [address] Social History Tobacco Use Types Packs/Day Years [...] Start Date Job End Date Works at [employer] Not on file Not on file Not on file documented as of this encounter Plan of Treatment Upcoming Encounters Date Type Department Care Team (Late st Contact Info) Description 10/28/2024 11:20 AM EDT Routine [facility] B[facility] OB [address] [place] [phone] Theodore Campbell, DO [address] [place] [address] documented as of this encounter Visit Diagnoses Not on filedocumented in this encounter
--- OUTSIDE RECORDS SUMMARY | 2024-10-25 08:03 | XMS_ITS | Encounter Summary ---
Author Organization [facility] Address [address] [facility] [place] [address] Care Team Providers Care Car Pre Cooler Name Role Phone Unavailable Primary Care Provider Unavailabl e Encounter Details Date Type Department Care Team (Late st Contact Info) Description 10/14/2024 Abstract [facility] OB [address] [place] [address] Theodore Campbell [address] Aisha [place], [facility] Social History Tobacco Use Types Packs/Day Years [...] Start Date Job End Date Works at [employer] Not on file Not on file Not on file documented as of this encounter Plan of Treatment Upcoming Encounters Date Type Department Care Team (Late st Contact Info) Description 10/28/2024 11:20 AM EDT Routine [facility] [address] [place] [address] Theodore Campbell, [address] Aisha [place], [place] [id number] documented as of this encounter Visit Diagnoses Not on filedocumented in this encounter
--- OUTSIDE RECORDS SUMMARY | 2024-10-25 08:03 | XMS_ITS | Encounter Summary ---
Author Organization [facility] Address [address] [facility] [place] [address] Care Team Providers Care Lobbyist Name Role Phone Unavailable Primary Care Provider Unavailabl e Encounter Details Date Type Department Care Team (Late st Contact Info) Description 09/23/2024 Abstract [facility] [address] [place] [address] Theodore Campbell [address] Aisha [place], [facility] Social History Tobacco Use Types Packs/Day [...] Start Date Job End Date Works at [employer] Not on file Not on file Not on file documented as of this encounter Plan of Treatment Upcoming Encounters Date Type Department Care Team (Late st Contact Info) Description 10/28/2024 11:20 AM EDT Routine [facility] [address] [place] [address] Theodore Campbell, [address] Aisha [place], [place] [id number] documented as of this encounter Visit Diagnoses Not on filedocumented in this encounter
--- OUTSIDE RECORDS SUMMARY | 2024-10-25 08:03 | XMS_ITS | Encounter Summary ---
Author Organization [facility] Address [address] [place] [address] Care Team Providers Care Director Selection And Administration Name Role Phone Unavailable Primary Care Provider Unavailabl e Encounter Details Date Type Department Care Team (Late st Contact Info) Description 08/20/2024 Abstract [facility] B[facility] OB [address] [place] [address] Shanna Bailon MA Social History Tobacco [...] Start Date Job End Date Works at [employer] Not on file Not on file Not on file documented as of this encounter Plan of Treatment Upcoming Encounters Date Type Department Care Team (Late st Contact Info) Description 10/28/2024 11:20 AM EDT Routine [facility] B[facility] OB [address] [place] [address] Theodore Campbell, DO [address] [place] [address] documented as of this encounter Visit Diagnoses Not on filedocumented in this encounter
--- OUTSIDE RECORDS SUMMARY | 2024-10-25 08:03 | XMS_ITS | Encounter Summary ---
Author Organization [facility] Address [address] [facility] [place] [address] Care Team Providers Care Child Welfare Director Name Role Phone Unavailable Primary Care Provider Unavailabl e Encounter Details Date Type Department Care Team (Late st Contact Info) Description 02/29/2024 Orders Only [facility] BCP OB [address] [place] [address] Priscila Joseph [place] [address] [place] [address] Social History Tobacco Use Types Packs/Day Years [...] Start Date Job End Date Works at [employer] Not on file Not on file Not on file documented as of this encounter Plan of Treatment Upcoming Encounters Date Type Department Care Team (Late st Contact Info) Description 10/28/2024 11:20 AM EDT Routine [facility] BCP OB [address] [place] [address] Theodore Campbell DO [address] [place], [place] [phone] documented as of this encounter Procedures Procedure [...]
--- OUTSIDE RECORDS SUMMARY | 2024-10-25 08:03 | XMS_ITS | Encounter Summary ---
Author Organization [facility] Address [address] [place] [address] Care Team Providers Care Field Artillery Cannoneer Name Role Phone Unavailable Primary Care Provider Unavailabl e Encounter Details Date Type Department Care Team (Late st Contact Info) Description 10/16/2024 Clinisync Result Encounter [facility] External Department Unsolicited Aquiles Campbell DO [address] [place] [address] Social History Tobacco Use Types Packs/Day Years [...] Start Date Job End Date Works at [employer] Not on file Not on file Not on file documented as of this encounter Plan of Treatment Upcoming Encounters Date Type Department Care Team (Late st Contact Info) Description 10/28/2024 11:20 AM EDT Routine [facility] BCP OB [address] [place] [phone] Aquiles Campbell DO [address] [facility] [place] [address] documented as of this encounter Procedures Procedure Name Priority Date/Time Associated Diagnosis Comments US OB BPP W NON-STRESS 10/16/2024 7:15 AM EDT documented in this encounter Results * US OB BPP W NON-STRESS (10/16/2024 7:15 AM EDT) Anatomical Region Laterality Modality Other 10/16/2024 7:15 AM EDT Narrative 10/16/2024 7:17 [place] [address] Ultrasound Report Signed Patient: ED SILVA MR#: [id number] : 1990 Acct:[id number] Age/Sex: 33 / F ADM Date: 10/15/24 Loc: US Attending Dr: Aquiles Campbell D.O. Ordering Physician: Aquiles Campbell D.O. Date of Service: 10/15/24 Procedure(s): US OB BPP w non-stress Accession Number(s): [id number] cc: Aquiles Campbell D.O.; Physician,Non-Staff Hussein The [address] [address] Patient Name: ED SILVA MRN: [facility]:[id number] date: 1990 Sex: F Assigned Patient Location: [place] Current Patient Location: Accession/Order Number: [id number] Exam Date: 10/16/2024 07:14 Report Date: 10/16/2024 [...] Torre M.D. 10/16/2024 7:15 AM Dictation Location: [place] [address] Electronically authenticated by: [id number] Y Date: 10/16/2024 07:15 Dictated By: Alexus De La Torre M.D. Signed By: 10/16/24716 DD/ 4 TD/TT: Telephonic Nurse: Procedure Note Radiology, Radiologist, MD - 10/16/2024 [place] [address] Ultrasound Report Signed Patient: ED SILVAMR#: [id number] : 1990Acct:[id number] Age/Sex: 33 / FADM Date: 10/15/24 Loc: US Attending Dr: Aquiles Campbell D.O. Ordering Physician: Aquiles Campbell D.O. Date of Service: 10/15/24 Procedure(s): US OB BPP w non-stress Accession Number(s): [id number] cc: Aquiles Campbell D.O.; Physician,Non-Staff Hussein The [address] [address] Patient Name: ED SILVA MRN: [id number]:[id number] date: 1990 Sex: F Assigned Patient Location: US Current Patient Location: Accession/Order Number: [id number] Exam Date: 10/16/2024 07:14 Report Date: 10/16/2024 [...] Torre M.D. 10/16/2024 7:15 AM Dictation Location: [place] [address] Electronically authenticated by: [id number] Y Date: 507:15 Dictated By: Alexus De La Torre M.D. Signed By:10/16/24 0717 DD/ 0715 TD/TT: Telephonic Nurse: Aquiles Campbell DO [facility] Final Result documented in this encounter Visit Diagnoses Not on filedocumented in this encounter
--- OUTSIDE RECORDS SUMMARY | 2024-10-25 08:03 | XMS_ITS | Clinical Summary ---
Author Organization [facility] tem Address [id number] [address] [place] [address] Care Team Providers Care Heel Seat Sander Name Role Phone Unavailable Primary Care Provider [...] Travel 08/07/2024 Orders Only Maternal- Medicine at [facility] [address] [place] [address] Ref Prov, Not In System 08/07/2024 Abstract Maternal- Medicine at [facility] [address] [place] [address] External, Scanning Provider from Last 3 Months [...] 9:49 AM EDT) Anatomical Region Laterality Modality OB-WOOD GLUER Ultrasound 08/08/2024 8:19 AM EDT Narrative 08/08/2024 10:17 AM EDT NAME: SHIRA WARD : 1990 SEX: F Accession Number: [id number] ORDERING PHYSICIAN: AQUILES CAMPBELL REFERRING PHYSICIAN: AQUILES CAMPBELL Coding ----- --------- Procedures 00261: Ultrasound, uterus, real time with image documentation, and maternal evaluation plus detailed anatomic examination, transabdominal approach;single or first gestation Indication ----- --------- Screening for Anatomic Survey , AMA- Supervision of elderly, Previous x2, Obesity in History ----- --------- OB History 4. Para 2 [id number] Maternal Assessment ----- --------- Physical Exam Height [...] EFW (oz) 2 oz EFW by: Hadlock ([id number]) Extended Tibia 43.3 mm 26w 5d 81% [employer] Coach 3.6 mm CM 4.0 mm 3% Nicolaides [...] view. RVOT view. LVOT view. 3-vessel view. 0-cvwrlf-fezuvdv view. Situs. Aortic arch view. Bicaval view. [...] WARD : 1990 SEX: F Accession Number: [id number] ORDERING PHYSICIAN: AQUILES CAMPBELL REFERRING PHYSICIAN: AQUILES CAMPBELL Coding ----- --------- Procedures 82049: Ultrasound, uterus, real time with imagedocumentation, and maternal evaluation plus detailed anatomic examination, transabdominalapproach;single or first gestation Indication ----- --------- Screening for Anatomic Survey , AMA- Supervision of elderly, PreviousC-Section x2, Obesity in History ----- --------- OB History 4. Para 2 [id number] Maternal Assessment ----- --------- Physical Exam Height [...] EFW (oz) 2 oz EFW by: Hadlock ([id number]) Extended Tibia 43.3 mm 26w 5d 81% [employer] Coach 3.6 mm CM 4.0 mm 3% Nicolaides [...] 4-chamber view. RVOT view. LVOT view. 3-vessel view.6-jarigb-uznlxjt view. Situs. Aortic arch view. Bicaval view. [...] thepatient as necessary. us Aquiles Campbell DO [facility] [place]LES Final Result * Ultrasound - Office (08/01/2024 10:19 AM EDT) Anatomical Region Laterality Modality AMB Ultrasound us Not In System Ref Prov [facility] [place] ORDERABLES Final R esult from Last 3 Months Insurance [facility]
--- OUTSIDE RECORDS SUMMARY | 2024-10-25 08:04 | XMS_ITS | CCD ---
Author Organization [facility] Care Team Providers [employer] Account Representative Name Role Phone ADRIAN ., DR KWAN [...] Unavailable ADRIAN ., DR KWAN Consulting Unavailable ADRINA ., DR KWAN Attending Unavailable ADRIAN ., [...] Admitting Unavailable Adrian DO, Aquiles Attending Provider [phone] Unavailable Primary Care Provider Unavailabl e ADRIAN, AQUILES R Referring Unavailable ADRIAN, AQUILES Attending Unavailable SHANNA, FLOWER Attending Unavailable ADRIAN, AQUILES Attending Unavailable SHANNA, FLOWER Attending Unavailable ADRIAN, AQUILES Attending Unavailable SHANNA, FLOWER Referring Unavailable SHANNA, FLOWER Attending Unavailable ADRIAN, AQUILES Attending Unavailable ADRIAN, AQUILES Attending Unavailable SHANNA, FLOWER Attending Unavailable ADRIAN, AQUILES Referring Unavailable ADRIAN, AQUILES Attending Unavailable ADRIAN, AQUILES Attending Unavailable Allergies Allergy Classification Reported Allergen(s) Allergy Type Date of Onset Reaction(s) Facility (1 source) Cefadroxil Drug Allergy [facility] Repository (1 source) natural latex rubber Drug allergy (disorder) [facility] Repository (20 sources) Cefadroxil; Translations: [CEFADROXIL] Drug Allergy 3 Hives [facility] (20 sources) Latex; Translations: [LATEX] Allergy to substance 3 Itching [facility] (20 sources) PARoxetine; Translations: [PAROXETINE] Drug Allergy 3 [facility] (1 source) Latex Propensity to adverse reactions to drug 5 Itching [facility] Medications Current Medications Medication Drug [...] Daily 30 capsule 6 08/28/2024 09/27/2024 Active Xphzfyoq-Pjr-Gg-FA ( 1 + IRON PO) (20 sources) Alsqyims-Gxn-Yr-FA ( 1 + IRON PO) Active vit,jorge [...] Daily Active valACYclovir 500 mg oral tablet (7 sources) Herpesvirus Nucleoside Analog DNA Polymerase Inhibitor, [...] 150 each 3 07/25/2024 10/14/2024 Discontinued Vit-Fe Vpcdwmp-FN-F CAI ( VITAMIN/MIN +DHA PO) (20 sources) Start: 06-09-2023 End: 06-03-2024 Vit-Fe Owtokyw-VH-X CAI ( VITAMIN/MIN +DHA PO) 06/09/2023 06/03/2024 Discontinued (Other) Start: 06-09-2023 Vit-F e Qrhojcq-VJ-AMY ( VITAMIN/MIN +DHA PO) 06/09/2023 Active Progesterone [...] second trimester] 08-27-2024 Episodic Other complications of (6 sources) Excessive growth affecting management of mother; [...] of ] 08-27-2024 Episodic Residual codes; unclassified (17 sources) Gestation period, 31 weeks; Translations: [31 weeks gestation of ] Onset: 09-17-2024 09-17-2024 Episodic Residual codes; unclassified (2 sources) Gestation period, 33 weeks; Translations: [33 weeks gestation of ] 09-30-2024 Episodic Residual codes; unclassified (2 sources) Gestation period, 35 weeks; Translations: [35 weeks gestation of ] 10-14-2024 Episodic Residual codes; unclassified (2 sources) Gestation period, 36 weeks; Translations: [36 weeks gestation of ] 10-21-2024 Episodic Viral infection (4 sources) Herpes simplex; Translations: [Herpesviral infection, unspecified] [...] the female genital tract; Translations: [PERSONAL HX OT DZ FE GENITAL TRACT] Onset: 02-14-2022 Episodic Screening and history of mental health and substance abuse codes (1 source) Personal history of nicotine dependence; Translations: [PERSONAL HISTORY OF NICOTINE DEPEND] Onset: 05-23-2022 Episodic Results Test Name Value Interpretation Reference Range Facility OB BPP W NON-STRESS on 10-22-2024 [place] [address] Ultrasound Report Signed Patient: ED MURPHY MR#: [id number] : 1990 Acct:[id number] Age/Sex: 33 / F ADM Date: 10/22/24 Loc: [facility] 254-[address]: Aquiles Campbell D.O. Ordering Physician: Aquiles Campbell D.O. Date of Service: 10/22/24 Procedure(s): US OB BPP w non-stress Accession Number(s): [id number] cc: Aquiles Campbell D.O.; Physician,Non-Staff M.D. The [place] [address] Patient Name: ED MURPHY MRN: [id number] date: 1990 Sex: F Assigned Patient Location: [facility] [place] [facility] [place] Accession/Order Number: [id number] Exam Date: 10/22/2024 10:02 Report Date: 10/22/2024 [...] Torre M.D. 10/22/2024 10:04 AM Dictation Location: [place] [address] Electronically authenticated by: [id number] Y Date: 10/22/2024 10:04 Dictated By: Alexus De La Torre M.D. Signed By: 10/22/24 1007 DD/ 1004 TD/TT: Food Service Driver: [facility] Radiology, Radiologist, MD - 10/22/2024 [place] [address] Ultrasound Report Signed Patient: ED MURPHY MR#: [id number] : 1990 Acct:[id number] Age/Sex: 33 / F ADM Date: 10/22/24 Loc: [facility] 254-[address]: Aquiles Campbell D.O. Ordering Physician: Aquiles Campbell D.O. Date of Service: 10/22/24 Procedure(s): US OB BPP w non-stress Accession Number(s): [id number] cc: Aquiles Campbell D.O.; Physician,Non-Staff [place] [facility] [place] [id number] Patient Name: ED MURPHY MRN: [facility]:[id number] date: 1990 Sex: F Assigned Patient Location: [facility] [place] [facility] [place] Accession/Order Number: [id number] Exam Date: 10/22/2024 10:02 Report Date: 10/22/2024 [...] Torre M.D. 10/22/2024 10:04 AM Dictation Location: [place] [address] Electronically authenticated by: [id number] Y Date: 10/22/2024 10:04 Dictated By: Alexus De La Torre M.D. Signed By: 10/22/24 1007 DD/ 1004 TD/TT: Food Service Driver: [facility] Radiology Study observation (narrative) [facility] US OB BPP W NON-STRESS Ordered By: Radiologist Radiology on 10-22-2024 [facility] Work Phone: Urinalysis macro (dipstick) panel (U)on 10-21-2024 Bilirubin, UA Negative Negative - 4(70) +++ mg/dL [facility] Blood, UA Negative Negative - 50 Alex/mcL [facility] Clarity, UA Clear [facility] Color, UA Yellow [facility] Glucose, UA Negative Negative - 1999(110) ++++ mg/dL [facility] Interpretation and review of laboratory results Normal [facility] Ketones, UA Negative Negative - 160(16) ++++ mg/dL [facility] Leukocytes, UA Negative Negative - 500+++ Jodi/mcL [facility] Nitrite, UA Negative Negative - Positive [facility] pH, UA 6.5 5 - 9 [facility] Protein, UA Negative Negative - 2000(20) ++++ mg/dL [facility] Spec Grav, UA 1.01 1 - 1.03 [facility] Urobilinogen, UA 0.2 0.2 - 12 mg/dL [facility] OB BPP W NON-STRESS on 10-16-2024 [place] [address] Ultrasound Report Signed Patient: ED MURPHY MR#: [id number] : 1990 Acct:[id number] Age/Sex: 33 / F ADM Date: 10/15/24 Loc: US Attending Dr: Aquiles Campbell D.O. Ordering Physician: Aquiles Campbell D.O. Date of Service: 10/15/24 Procedure(s): US OB BPP w non-stress Accession Number(s): [id number] cc: Aquiles Campbell D.O.; Physician,Non-Staff [place] [facility] [place] [id number] Patient Name: ED MURPHY MRN: [facility]:[id number] date: 1990 Sex: F Assigned Patient Location: Current Patient Location: Accession/Order Number: [id number] Exam Date: 10/16/2024 07:14 Report Date: 10/16/2024 [...] Torre M.D. 10/16/2024 7:15 AM Dictation Location: [place] [address] Electronically authenticated by: [id number] Y Date: 10/16/2024 07:15 Dictated By: Alexus De La Torre M.D. Signed By: 10/16/24716 DD/ 4 TD/TT: Food Service Driver: [facility] Radiology, Radiologist, MD - 10/16/2024 [place] [address] Ultrasound Report Signed Patient: ED MURPHY MR#: [id number] : 1990 Acct:[id number] Age/Sex: 33 / F ADM Date: 10/15/24 Loc: US Attending Dr: Aquiles Campbell D.O. Ordering Physician: Aquiles Campbell D.O. Date of Service: 10/15/24 Procedure(s): US OB BPP w non-stress Accession Number(s): [id number] cc: Aquiles Campbell D.O.; Physician,Non-Staff [place] [facility] [place] [id number] Patient Name: ED MURPHY MRN: [facility]:[id number] date: 1990 Sex: F Assigned Patient Location: Current Patient Location: Accession/Order Number: [id number] Exam Date: 10/16/2024 07:14 Report Date: 10/16/2024 [...] Torre M.D. 10/16/2024 7:15 AM Dictation [facility] Electron[facility] authenticated by: [id number] Y Date: 10/16/2024 07:15 Dictated By: Alexus De La Torre M.D. Signed By: 10/16/24716 DD/ 4 TD/TT: Food Service Driver: [facility] Radiology Study observation (narrative) [facility] OB BPP W NON-STRESS Ordered By: Radiologist Radiology on 10-16-2024 [facility] Work Phone: OB FOLLOW UP TRANSABDOMIN AL APPROACHon 10-14-2024 US OB FOLLOW UP TRANSABDOMINAL APPROACH A single, [...] UA Negative Negative - 4(70) +++ mg/dL [facility] Blood, UA Negative Negative - 50 Alex/mcL [facility] Clarity, UA Cloudy [facility] Color, UA Yellow [facility] Glucose, UA Negative Negative - 2000(110) ++++ mg/dL [facility] Interpretation and review of laboratory results Normal [facility] Ketones, UA Negative Negative - 160(16) ++++ mg/dL [facility] Leukocytes, UA Negative Negative - 500+++ Jodi/mcL [facility] Nitrite, UA Negative Negative - Positive [facility] pH, UA 6.5 5 - 9 [facility] Protein, UA Negative Negative - 2000(20) ++++ mg/dL [facility] Spec Grav, UA 1.01 1 - 1.03 [facility] Urobilinogen, UA 0.2 0.2 - 12 mg/dL [facility] US OB BPP W NON-STRESS on 10-09-2024 [place] [address] Ultrasound Report Signed Patient: ED MURPHY MR#: [id number] : 1990 Acct:[id number] Age/Sex: 33 / F ADM Date: 10/08/24 Loc: US Attending Dr: Aquiles Campbell D.O. Ordering Physician: Aquiles Campbell D.O. Date of Service: 10/08/24 Procedure(s): US OB BPP w non-stress Accession Number(s): [id number] cc: Aquiles Campbell D.O.; Physician,Non-Staff M.DAp The [address] [address] Patient Name: ED MURPHY MRN: [facility]:[id number] date: 1990 Sex: F Assigned Patient Location: Current Patient Location: Accession/Order Number: [id number] Exam Date: 10/09/2024 07:51 Report Date: 10/09/2024 [...] Torre M.D. 10/09/2024 7:52 AM Dictation Location: [place] [address] Electronically authenticated by: [id number] Y Date: 10/09/2024 07:52 Dictated By: Alexus De La Torre M.D. Signed By: 10/09/24 0945 DD/ 0752 TD/TT: Food Service Driver: [facility] Radiology, Radiologist, MD - 10/09/2024 [place] [address] Ultrasound Report Signed Patient: ED MURPHY MR#: [id number] : 1990 Acct:[id number] Age/Sex: 33 / F ADM Date: 10/08/24 Loc: US Attending Dr: Aquiles Campbell D.O. Ordering Physician: Aquiles Campbell D.O. Date of Service: 10/08/24 Procedure(s): US OB BPP w non-stress Accession Number(s): [id number] cc: Aquiles Campbell D.O.; Physician,Non-Staff [place] [address] Patient Name: ED MURPHY MRN: [facility]:[id number] date: 1990 Sex: F Assigned Patient Location: US Current Patient Location: Accession/Order Number: [id number] Exam Date: 10/09/2024 07:51 Report Date: 10/09/2024 [...] Torre M.D. 10/09/2024 7:52 AM Dictation Location: [place] [address] Electronically authenticated by: [id number] Y Date: 10/09/2024 07:52 Dictated By: Alexus De La Torre M.D. Signed By: 10/09/24 0945 DD/ 0752 TD/TT: Food Service Driver: [facility] Radiology Study observation (narrative) [facility] OB BPP W NON-STRESS Ordered By: Radiologist Radiology on 10-09-2024 [facility] Work Phone: US OB BPP W NON-STRESS on 10-02-2024 [place] [address] Ultrasound Report Signed Patient: ED MURPHY MR#: [id number] : 1990 Acct:[id number] Age/Sex: 33 / F ADM Date: 10/01/24 Loc: US Attending Dr: Aquiles Campbell D.O. Ordering Physician: Aquiles Campbell D.O. Date of Service: 10/01/24 Procedure(s): US OB BPP w non-stress Accession Number(s): [id number] cc: Aquiles Campbell D.O.; Physician,Non-Staff Hussein The [address] [address] Patient Name: ED MURPHY MRN: [facility]:[id number] date: 1990 Sex: F Assigned Patient Location: [facility] Current Patient Location: Accession/Order Number: [id number] Exam Date: 10/02/2024 08:04 Report Date: 10/02/2024 [...] Torre M.D. 10/02/2024 8:07 AM Dictation Location: [place] [address] Electronically authenticated by: [id number] Y Date: 10/02/2024 08:07 Dictated By: Alexus De La Torre M.D. Signed By: 10/02/24 0810 DD/ 08 TD/TT: Food Service Driver: [facility] Radiology, Radiologist, MD - 10/02/2024 [place] [address] Ultrasound Report Signed Patient: ED MURPHY MR#: [id number] : 1990 Acct:[id number] Age/Sex: 33 / F ADM Date: 10/01/24 Loc: US Attending Dr: Aquiles Campbell D.O. Ordering Physician: Aquiles Campbell D.O. Date of Service: 10/01/24 Procedure(s): US OB BPP w non-stress Accession Number(s): [id number] cc: Aquiles Campbell D.O.; Physician,Non-Staff [place] [facility] [place] [id number] Patient Name: ED MURPHY MRN: [facility]:[id number] date: 1990 Sex: F Assigned Patient Location: [facility] Current Patient Location: Accession/Order Number: [id number] Exam Date: 10/02/2024 08:04 Report Date: 10/02/2024 [...] Torre M.D. 10/02/2024 8:07 AM Dictation Location: [place] [address] Electronically authenticated by: [id number] Y Date: 10/02/2024 08:07 Dictated By: Alexus De La Torre M.D. Signed By: 10/02/24809 DD/ 6 TD/TT: Food Service Driver: [facility] Radiology Study observation (narrative) [facility] US OB BPP W NON-STRESS Ordered By: Radiologist Radiology on 10-02-2024 [facility] Work Phone: Urinalysis macro (dipstick) panel (U)on 09-30-2024 Bilirubin, UA Negative Negative - 4(70) +++ mg/dL [facility] Blood, UA Negative Negative - 50 Alex/mcL [facility] Clarity, UA Clear [facility] Color, UA Yellow [facility] Glucose, UA Negative Negative - 2000(110) ++++ mg/dL [facility] Interpretation and review of laboratory results Abnormal [facility] Ketones, UA Positive Negative - 160(16) ++++ mg/dL [facility] Comment on above: 15mg/dL Leukocytes, UA Negative Negative - 500+++ Jodi/mcL [facility] Nitrite, UA Negative Negative - Positive [facility] pH, UA 6 5 - 9 [facility] Protein, UA Negative Negative - 2000(20) ++++ mg/dL [facility] Spec Grav, UA 1.02 1 - 1.03 [facility] Urobilinogen, UA 0.2 0.2 - 12 mg/dL [facility] US OB BPP W NON-STRESS on 09-25-[address] [address] Ultrasound Report Signed Patient: ED MURPHY MR#: [id number] : 1990 Acct:[id number] Age/Sex: 33 / F ADM Date: 09/24/24 Loc: US Attending Dr: Aquiles Campbell D.O. Ordering Physician: Aquiles Campbell D.O. Date of Service: 09/24/24 Procedure(s): US OB BPP w non-stress Accession Number(s): [id number] cc: Aquiles Campbell D.O.; Physician,Non-Staff Hussein [facility] [place] [address] Patient Name: ED MURPHY MRN: [facility]:[id number] date: 1990 Sex: F Assigned Patient Location: US Current Patient Location: Accession/Order Number: [id number] Exam Date: 09/25/2024 07:56 Report Date: 09/25/2024 [...] Swartz M.D. 09/25/2024 7:58 AM Dictation Location: [place] [address] Electronically authenticated by: [id number] Y Date: 09/25/2024 07:58 Dictated By: Manuel Swartz D.O. Signed By: 09/25/24 0800 DD/ 0758 TD/TT: Food Service Driver: [facility] Radiology, Radiologist, MD - 09/25/2024 [place] [address] Ultrasound Report Signed Patient: ED MURPHY MR#: [id number] : 1990 Acct:[id number] Age/Sex: 33 / F ADM Date: 09/24/24 Loc: US Attending Dr: Aquiles Campbell D.O. Ordering Physician: Aquiles Campbell D.O. Date of Service: 09/24/24 Procedure(s): US OB BPP w non-stress Accession Number(s): [id number] cc: Aquiles Campbell D.O.; Physician,Non-Staff MSalomon [place] [address] Patient Name: ED MURPHY MRN: [facility]:[id number] date: 1990 Sex: F Assigned Patient Location: US Current Patient Location: Accession/Order Number: [id number] Exam Date: 09/25/2024 07:56 Report Date: 09/25/2024 [...] Swartz M.D. 09/25/2024 7:58 AM Dictation Location: [place] [address] Electronically authenticated by: [id number] Y Date: 09/25/2024 07:58 Dictated By: Manuel Swartz D.O. Signed By: 09/25/24 0800 DD/ 0758 TD/TT: Food Service Driver: [facility] Radiology Study observation (narrative) [facility] US OB BPP W NON-STRESS Ordered By: Radiologist Radiology on 09-25-2024 [facility] Work Phone: US OB FOLLOW UP TRANSABDOMIN [...] II, MD, PHD at 18-Sep-2024 08:23:43 AM [facility] Normal Not Available Comment on above: Order Comment: US OB SCAN FOR GROWTH Estimated Date of Delivery: 11/17/24 Gestational Age as of 08/27/2024: 28w2d Urinalysis macro (dipstick) panel (U)on 09-17-2024 Bilirubin, UA Negative Negative - 4(70) +++ mg/dL [facility] Blood, UA Negative Negative - 50 Alex/mcL [facility] Clarity, UA Clear [facility] Color, UA Yellow [facility] Glucose, UA Negative Negative - 1999(110) ++++ mg/dL [facility] Interpretation and review of laboratory results Normal [facility] Ketones, UA Negative Negative - 160(16) ++++ mg/dL [facility] Leukocytes, UA Negative Negative - 500+++ Jodi/mcL [facility] Nitrite, UA Negative Negative - Positive [facility] pH, UA 7 5 - 9 [facility] Protein, UA Negative Negative - 1999(20) ++++ mg/dL [facility] Spec Grav, UA 1.01 1 - 1.03 [facility] Urobilinogen, UA 0.2 0.2 - 12 mg/dL [facility] MLR HEMOGLOBIN A1Con 025 Glucose [Mass/Vol] 114 mg/dL [facility] HbA1c (Bld) [Mass fraction] 5.6 % 4.5 - 6.2 % [facility] Comment on above: ADA RECOMMENDED LIMI T 4.0 - 6.0 ADA THERAPEUTIC TARGET < 7.0 ACTION SUGGESTED > 7.0 [facility] Urinalysis macro (dipstick) panel (U)Ordered By: Daniel Pereira on 08-27-2024 Bilirubin, UA Negative Negative - 4(70) +++ mg/dL [facility] Work Phone: Blood, UA Negative Negative - 50 Alex/mcL [facility] Work Phone: Clarity, UA Clear [facility] Work Phone: Color, UA Yellow [facility] Work Phone: Glucose, UA Negative Negative - 1999(110) ++++ mg/dL [facility] Work Phone: Interpretation and review of laboratory results Normal [facility] Work Phone: Ketones, UA Negative Negative - 160(16) ++++ mg/dL [facility] Work Phone: Leukocytes, UA Negative Negative - 500+++ Jodi/mcL [facility] Work Phone: Nitrite, UA Negative Negative - Positive [facility] Work Phone: pH, UA 6.5 5 - 9 [facility] Work Phone: Protein, UA Negative Negative - 2000(20) ++++ mg/dL [facility] Work Phone: Spec Grav, UA 1.015 1 - 1.03 [facility] Work Phone: Urobilinogen, UA 0.2 0.2 - 12 mg/dL [facility] Work Phone: [facility] Work Phone: US OB LIMITED 1+ [...] II, MD, PHD at 01-Aug-2024 11:20:36 PM [facility] Normal Not Available Comment on above: Order Comment: US OB INCOMPLETE ANATOMY Estimated Date of Delivery: 11/17/24 Gestational Age as of 07/08/2024: 21w1d RECURRENT VAGINITIS (HTRX)on 06-04-2024 ATOPOBIUM VAGINAE 0 [facility] ATOPOBIUM VAGINAE Not detected [facility] BVAB 2,3 (BACTERIAL VAGINOSIS ASSOCIATED BACTERIA 2, 3); MOBILUNCUS SPP 0 [facility] BVAB 2,3 (BACTERIAL VAGINOSIS ASSOCIATED BACTERIA 2, 3); MOBILUNCUS SPP Not detected [facility] NICA ALBICANS, PARAPSILOSIS, TROPICALIS 0 [facility] NICA ALBICANS, PARAPSILOSIS, TROPICALIS Not detected [facility] NICA GLABRATA 0 [facility] NICA GLABRATA Not detected [facility] NICA KRUSEI 0 [facility] NICA KRUSEI Not detected [facility] CHLAMYDIA TRACHOMATIS 0 [facility] CHLAMYDIA TRACHOMATIS Not detected [facility] GARDNERELLA VAGINALIS 29.376 Abnormal [facility] GARDNERELLA VAGINALIS Detected Abnormal [facility] Interpretation and review of laboratory results Abnormal [facility] MEGASPHAERA (TYPES 1, 2) 0 [facility] MEGASPHAERA (TYPES 1, 2) Not detected [facility] MYCOPLASMA GENITALIUM 0 [facility] MYCOPLASMA GENITALIUM Not detected [facility] NEISSERIA GONORRHOEAE 0 [facility] NEISSERIA GONORRHOEAE Not detected [facility] TRICHOMONAS VAGINALIS 0 [facility] TRICHOMONAS VAGINALIS Not detected [facility] US OB 14+ WEEKS ANATOMY SCAN [...] II, MD, PHD at 02-Jul-2024 09:56:12 AM [facility] Normal Not Available Comment on above: Order Comment: US OB ANATOMY SINGLE W US OB CERVICAL LENGTH Estimated Date of Delivery: 11/17/24 Gestational Age as of 06/03/2024: 16w1d Urinalysis macro (dipstick) panel (U)on 06-03-2024 Bilirubin, UA Negative Negative - 4(70) +++ mg/dL [facility] Blood, UA Positive Negative - 50 Alex/mcL [facility] Comment on above: trace-intact Clarity, UA Clear [facility] Color, UA Yellow [facility] Glucose, UA Negative Negative - 1999(110) ++++ mg/dL [facility] Interpretation and review of laboratory results Abnormal [facility] Ketones, UA Positive Negative - 160(16) ++++ mg/dL [facility] Comment on above: 15mg/dL Leukocytes, UA Negative Negative - 500+++ Jodi/mcL [facility] Nitrite, UA Negative Negative - Positive [facility] pH, UA 5.5 5 - 9 [facility] Protein, UA Negative Negative - 1999(20) ++++ mg/dL [facility] Spec Grav, UA 1.02 1 - 1.03 [facility] Urobilinogen, UA 0.2 0.2 - 12 mg/dL [facility] Urinalysis macro (dipstick) panel (U)on 05-02-2024 Bilirubin, UA Trace Negative - 4(70) +++ mg/dL [facility] Blood, UA Negative Negative - 50 Alex/mcL [facility] Clarity, UA Clear [facility] Color, UA Yellow [facility] Glucose, UA Negative Negative - 1999(110) ++++ mg/dL [facility] Interpretation and review of laboratory results Abnormal [facility] Ketones, UA Positive Negative - 160(16) ++++ mg/dL [facility] Leukocytes, UA Negative Negative - 500+++ Jodi/mcL [facility] Nitrite, UA Negative Negative - Positive [facility] pH, UA 6 5 - 9 [facility] Protein, UA Positive Negative - 1999(20) ++++ mg/dL [facility] Spec Grav, UA 1.03 1 - 1.03 [facility] Urobilinogen, UA 0.2 0.2 - 12 mg/dL [facility] ALL CBC WITH AUTO DIFFon BASOPHILS ABSOLUTE AUTO 0 [facility] Basophils/100 WBC (Bld) 0.4 % 0.2 - 2.0 % [facility] Eosinophils/100 WBC (Bld) 0.6 % Low 0.9 - 7.0 % [facility] Erythrocyte distribution width (RBC) [Ratio] 14.1 % 11.0 - 15.0 % [facility] Hematocrit (Bld) [Volume fraction] 40.6 % 36.0 - 48.0 % [facility] Hemoglobin (Bld) [Mass/Vol] 13.1 g/dL 12.0 - 16.0 g/dL [facility] IMMATURE GRANULOCYTES ABS AUTO 0.03 [facility] Immature granulocytes/100 WBC (Bld) 0.3 % 0.0 - 0.5 % [facility] Interpretation and review of laboratory results Abnormal [facility] LYMPHOCYTES ABSOLUTE AUTO 1.9 [facility] Lymphocytes/100 WBC (Bld) 19.1 % Low 20.5 - 60.0 % [facility] MCH (RBC) [Entitic mass] 27.9 pg 26.7 - 34.0 pg [facility] MCHC (RBC) [Mass/Vol] 32.3 g/dL 29.9 - 35.2 g/dL [facility] MCV (RBC) [Entitic vol] 86.6 fL 81.0 - 99.0 fL [facility] MONOCYTES ABSOLUTE AUTO 0.5 [facility] Monocytes/100 WBC (Bld) 5.4 % 1.7 - 12.0 % [facility] NEUTROPHILS ABSOLUTE AUTO 7.4 High [facility] Neutrophils/100 WBC (Bld) 74.2 % 43.0 - 75.0 % [facility] Platelet mean volume (Bld) [Entitic vol] 9.3 fL Low 9.5 - 13.5 fL [facility] EO # 0.1 [facility] PLT 380 [facility] RBC 4.69 [facility] WBC 9.9 [facility] US OB TRANSVAGINALon 025 US OB TRANSVAGINAL [...] x 3.6 cm (8 weeks, 0 days). Pinckard rump length is 1.8 cm (8 weeks, [...] (U) No Growth 2 Days PERFORMED BY: [place] [address] PATHOLOGIST TECH INTERN TOSHA PÉREZ M.D. Normal [facility] Comment on above: Performed By: #### C UU #### [address] [facility] PREG QUANT HCGon 024 HCG QUANTITATIVE 7110 mIU/mL [facility] Comment on above: 5-50 0.2-1 WEEK 50-500 1-2 WEEKS 100-5,000 2-3 WEEKS 500-10,000 3-4 WEEKS 1,000-50,000 4-5 WEEKS 10,000-100,000 5-6 WEEKS 15,000-200,000 6-8 WEEKS 10,000-100,000 2-3 MONTHS [facility] PREG QUANT HCGon 024 HCG QUANTITATIVE 5107 mIU/mL [facility] Comment on above: 5-50 0.2-1 WEEK 50-500 1-2 WEEKS 100-5,000 2-3 WEEKS 500-10,000 3-4 WEEKS 1,000-50,000 4-5 WEEKS 10,000-100,000 5-6 WEEKS 15,000-200,000 6-8 WEEKS 10,000-100,000 2-[address] [facility] PREG QUANT HCGon 024 HCG QUANTITATIVE 2902 mIU/mL [facility] Comment on above: 5-50 0.2-1 WEEK 50-500 1-2 WEEKS 100-5,000 2-3 WEEKS 500-10,000 3-4 WEEKS 1,000-50,000 4-5 WEEKS 10,000-100,000 5-6 WEEKS 15,000-200,000 6-8 WEEKS 10,000-100,000 2-[address] [facility] PREG QUANT HCGon 024 HCG QUANTITATIVE 1345 mIU/mL [facility] Comment on above: 5-50 0.2-1 WEEK 50-500 1-2 WEEKS 100-5,000 2-3 WEEKS 500-10,000 3-4 WEEKS 1,000-50,000 4-5 WEEKS 10,000-100,000 5-6 WEEKS 15,000-200,000 6-8 WEEKS 10,000-100,000 2-[address] [facility] PREG QUANT HCGon 024 HCG QUANTITATIVE 420 mIU/mL [facility] Comment on above: 5-50 0.2-1 WEEK 50-500 1-2 WEEKS 100-5,000 2-3 WEEKS 500-10,000 3-4 WEEKS 1,000-50,000 4-5 WEEKS 10,000-100,000 5-6 WEEKS 15,000-200,000 6-8 WEEKS 10,000-100,000 2-[address] [facility] PREG QUANT HCGon 024 HCG QUANTITATIVE 184 mIU/mL [facility] Comment on above: 5-50 0.2-1 WEEK 50-500 1-2 WEEKS 100-5,000 2-3 WEEKS 500-10,000 3-4 WEEKS 1,000-50,000 4-5 WEEKS 10,000-100,000 5-6 WEEKS 15,000-200,000 6-8 WEEKS 10,000-100,000 2-3 MONTHS [facility] PREG QUANT HCGon 024 HCG QUANTITATIVE 59 mIU/mL [facility] Comment on above: 5-50 0.2-1 WEEK 50-500 1-2 WEEKS 100-5,000 2-3 WEEKS 500-10,000 3-4 WEEKS 1,000-50,000 4-5 WEEKS 10,000-100,000 5-6 WEEKS 15,000-200,000 6-8 WEEKS 10,000-100,000 2-3 MONTHS [facility] ALL PROGESTERONEon 4 PROGESTERONE 9.3 ng/mL . [facility] Comment on above: Follicular phase 0.1 - 0.9 Luteal phase 1.8 - 23.9 Ovulation phase 0.1 - 12.0 First trimester 11.0 - 44.3 Second trimester 25.4 - 83.3 Third trimester 58.7 - 214.0 Postmenopausal 0.0 - 0.1 Performed at: [address] [id number] [employer] Technician: Josr Jarvis PhD, Phone: [phone] [facility] IGP,APTIMA HPV,AGE GDLNon AGE GDLN ACOG TESTING Note . [facility] Comment on above: TESTS RESULT FLAG UN ITS REF RANGE LAB Clinician Provided Cytology Information Source.............Cervix;Endocervix No. of containers..01 ThinPrep Vial Age Algo ACOG Jacinta... 30-65 01 FLAG LEGEND: L-Low Normal,H-High Normal,LL-Alert Low,HH-Alert High <-Panic Low,>-Panic High,A-Abnormal,AA-Critical Abnormal Performed at: 01 =[address] [id number] Stacey Tao MD, HPV APTIMA Negative Negative [facility] Comment on above: This nucleic acid am plification test detects fourteen high- risk HPV types (16,18,31,33,35,39,45,51,52,56,58,59,66,68) without differentiation. Performed at: =[address] [id number] [employer] Technician: Stacey Tao MD, Phone: [phone] Performed at: [address] [id number] [employer] Technician: Stacey Tao MD, Phone: [phone] IGP, APTIMA HPV, RFX 16/18,45 Note . [facility] Comment on above: TESTS RESULT FLAG UN ITS REF RANGE LAB DIAGNOSIS: 02 NEGATIVE FOR INTRAEPITHELIAL LESION OR MALIGNANCY. Specimen adequacy: 02 Satisfactory for evaluation. Endocervical and/or squamous metaplastic cells (endocervical component) are present. Performed by: 02 Ed Mancilla, Mid Level Java Developer (ASCP) . 02 Note: Note 02 The [...] <-Panic Low,>-Panic High,A-Abnormal,AA-Critical Abnormal Performed at: [address] [phone] Stacey Tao MD, BRUSH-SPATULA CERVIX ENDOCERVIX [facility] DHEA-SULFATEon 08-23-2022 DHEA-Sulfate 352.0 ug/dL Normal 84.8-378.0 [facility] Comment on above: Performed By: #### L AMY #### [facility] [address] [place] [address] Dr. Nam Keenan FSHon 08-23-2022 FSH 6.7 mIU/mL Normal [facility] Comment on above: Result Comment: Adul t Female: Follicular phase 3.5 - 12.5 Ovulation phase 4.7 - 21.5 Luteal phase 1.7 - 7.7 Postmenopausal 25.8 - 134.8 Performed By: #### L BCFS #### [facility] [address] [place] [address] Dr. Nam Keenan LUTEINIZING HORMONE (LH)on 0 08-23-2022 LH 13.7 mIU/mL Normal [facility] Comment on above: Result Comment: Adul t Female: Follicular phase 2.4 - 12.6 Ovulation phase 14.0 - 95.6 Luteal phase 1.0 - 11.4 Postmenopausal 7.7 - 58.5 Performed By: #### L BCL #### [facility] [address] [place] [address] Dr. Nam Keenan CBC AUTO DIFFon 08-22-2022 BASO # 0.1 103/ul Normal 0.0-0.1 [facility] Comment on above: Performed By: #### L BCL #### [facility] [address] [address] [address] Nam Keenan Basophils/100 WBC (Bld) 0.7 % Normal 0.2-2.0 [facility] Comment on above: Performed By: #### L BCLH #### [facility] [address] [address] [address] Nam Keenan EO # 0.3 103/ul Normal 0.0-0.7 [facility] Comment on above: Performed By: #### L BCLH #### [facility] [address] [place] [address] Dr. Nam Keenan Eosinophils/100 WBC (Bld) 3.9 % Normal 0.9-7.0 [facility] Comment on above: Performed By: #### L BCL #### [facility] [address] [place] [address] Dr. Nam Keenan Erythrocyte distribution width (RBC) [Ratio] 13.3 % Normal 11.0-15.0 [facility] Comment on above: Performed By: #### L BCL #### [facility] [address] [place] [address] Dr. Nam Keenan Hematocrit (Bld) [Volume fraction] 38.7 % Normal 36.0-48.0 [facility] Comment on above: Performed By: #### L BCLH #### [facility] [address] [place] [address] Dr. Nam Keenan Hemoglobin (Bld) [Mass/Vol] 12.4 g/dL Normal 12.0-16.0 [facility] Comment on above: Performed By: #### L BCLH #### [facility] [address] [place] [address] Dr. Nam Keenan IG # 0.01 10e3/ul Normal 0.00-0.03 [facility] Comment on above: Performed By: #### L BCLH #### [facility] [address] [place] [address] Dr. Nam Keenan IG % 0.1 % Normal 0.0-0.5 [facility] Comment on above: Performed By: #### L AMY #### [facility] [address] [place] [address] Dr. Nam Keenan LYMPH # 2.9 103/ul Normal 1.2-3.8 [facility] Comment on above: Performed By: #### L AMYH #### [facility] [address] [place] [address] Dr. Nam Keenan Lymphocytes/100 WBC (Bld) 34.4 % Normal 20.5-60.0 [facility] Comment on above: Performed By: #### L AMY #### [facility] [address] [place] [address] Dr. Nam Keenan MANUAL DIFF REQ NO Normal [facility] Comment on above: Performed By: #### L AMY #### [facility] [address] [place] [address] Dr. Nam Keenan MCH (RBC) [Entitic mass] 27.8 pg Normal 26.7-34.0 [facility] Comment on above: Performed By: #### L AMY #### [facility] [address] [place] [address] Dr. Nam Keenan MCHC (RBC) [Mass/Vol] 32.0 g/dL Normal 29.9-35.2 [facility] Comment on above: Performed By: #### L BCL #### [facility] [address] [place] [address] Dr. Nam Keenan MCV (RBC) [Entitic vol] 86.8 fL Normal 81.0-99.0 [facility] Comment on above: Performed By: #### L BCLH #### [facility] [address] [place] [address] Dr. Nam Keenan MONO # 0.6 103/ul Normal 0.3-0.8 [facility] Comment on above: Performed By: #### L AMYH #### [facility] [address] [place] [address] Dr. Nam Keenan Monocytes/100 WBC (Bld) 6.7 % Normal 1.7-12.0 [facility] Comment on above: Performed By: #### L BCL #### [facility] [address] [place] [address] Dr. Nam Keenan NEUT # 4.6 103/ul Normal 1.4-6.5 [facility] Comment on above: Performed By: #### L BCLH #### [facility] [address] [address] [address] Nam Keenan Neutrophils/100 WBC (Bld) 54.2 % Normal 43.0-75.0 [facility] Comment on above: Performed By: #### L BCL #### [facility] [address] [place] [address] Dr. Nam Keenan Platelet mean volume (Bld) [Entitic vol] 9.6 fL Normal 9.5-13.5 [facility] Comment on above: Performed By: #### L BCL #### [facility] [address] [place] [address] Dr. Nam Keenan PLT 335 103/ul Normal 150-450 [facility] Comment on above: Performed By: #### L BCL #### [facility] [address] [place] [address] Dr. Nam Keenan RBC 4.46 106/ul Normal 4.20-5.40 [facility] Comment on above: Performed By: #### L BCL #### [facility] [address] [place] [address] Dr. Nam Keenan WBC 8.5 103/ul Normal 4.0-11.0 [facility] Comment on above: Performed By: #### L BCLH #### [facility] [address] [place] [address] Dr. Nam Keenan FREE T4on 08-22-2022 Free T4 [Mass/Vol] 1.14 ng/dL Normal 0.76-1.46 [facility] Comment on above: Performed By: #### L BCLH #### [facility] [address] [address] [address] Nam Keenan GLYCOHEMOGLOBIN A1Con 2022 ADA RECOMMENDATION SEE BELOW Normal [facility] Comment on above: Result Comment: ADA RECOMMENDED LIMIT 4.0 - 6.0 ADA THERAPEUTIC TARGET < 7.0 ACTION SUGGESTED > 7.0 Performed By: #### A 1C #### [facility] [address] [address] [address] Nam Keenan Glucose [Mass/Vol] 97 mg/dL Normal [facility] Comment on above: Performed By: #### A 1C #### [facility] [address] [address] [address] Nam Keenan HbA1c (Bld) [Mass fraction] 5.0 % Normal 4.5-6.2 [facility] Comment on above: Performed By: #### A 1C #### [facility] [address] [place] [address] Dr. Nam Keenan PREG QUANT HCGon 08-22-2022 HCG QUANT <1 Normal [facility] Comment on above: Performed By: #### P REGQNT, TSH #### [facility] [address] [address] [address] Nam Keenan HCG RANGE SEE BELOW Normal [facility] Comment on above: Result Comment: 5-50 0.2-1 WEEK 50-500 1-2 WEEKS 100-5,000 2-3 WEEKS 500-10,000 3-4 WEEKS 1,000-50,000 4-5 WEEKS 10,000-100,000 5-6 WEEKS 15,000-200,000 6-8 WEEKS 10,000-100,000 2-3 MONTHS Performed By: #### P REGQNT, TSH #### [facility] [address] [address] [address] Nam Keenan TSHon 08-22-2022 TSH 2.026 uIU/mL Normal 0.358-3.740 [facility] Comment on above: Performed By: #### P REGQNT, TSH #### [facility] [address] [place] [address] Dr. Nam Keenan PREG QUANT HCGon 02-17-2023 HCG QUANT 3 mIU/mL Normal [facility] Comment on above: Performed By: #### P REGQNT #### [facility] [address] [place] [address] Dr. Nam Keenan HCG RANGE SEE BELOW Normal [facility] Comment on above: Result Comment: 5-50 0.2-1 WEEK 50-500 1-2 WEEKS 100-5,000 2-3 WEEKS 500-10,000 3-4 WEEKS 1,000-50,000 4-5 WEEKS 10,000-100,000 5-6 WEEKS 15,000-200,000 6-8 WEEKS 10,000-100,000 2-3 MONTHS Performed By: #### P REGQNT #### [facility] [address] [place] [address] Dr. Nam Keenan CBC AUTO DIFFon 05-22-2022 BASO # 0.1 103/ul Normal 0.0-0.1 [facility] Comment on above: Performed By: #### L BCLH #### [facility] [address] [place] [address] Dr. Nam Keenan Basophils/100 WBC (Bld) 0.7 % Normal 0.2-2.0 [facility] Comment on above: Performed By: #### L BCLH #### [facility] [address] [place] [address] Dr. Nam Keenan EO # 0.2 103/ul Normal 0.0-0.7 [facility] Comment on above: Performed By: #### L BCLH #### [facility] [address] [place] [address] Dr. Nam Keenan Eosinophils/100 WBC (Bld) 1.6 % Normal 0.9-7.0 [facility] Comment on above: Performed By: #### L BCLH #### [facility] [address] [place] [address] Dr. Nam Keenan Erythrocyte distribution width (RBC) [Ratio] 13.9 % Normal 11.0-15.0 [facility] Comment on above: Performed By: #### L BCLH #### [facility] [address] [place] [address] Dr. Nam Keenan Hematocrit (Bld) [Volume fraction] 36.2 % Normal 36.0-48.0 [facility] Comment on above: Performed By: #### L BCL #### [facility] [address] [place] [address] Dr. Nam Keenan Hemoglobin (Bld) [Mass/Vol] 12.1 g/dL Normal 12.0-16.0 [facility] Comment on above: Performed By: #### L BCLH #### [facility] [address] [place] [address] Dr. Nam Keenan IG # 0.03 10e3/ul Normal 0.00-0.03 [facility] Comment on above: Performed By: #### L BCLH #### [facility] [address] [place] [address] Dr. Nam Keenan IG % 0.3 % Normal 0.0-0.5 [facility] Comment on above: Performed By: #### L BCLH #### [facility] [address] [place] [address] Dr. Nam Keenan LYMPH # 3.9 103/ul Critically high 1.2-3.8 [facility] Comment on above: Performed By: #### L BCLH #### [facility] [address] [place] [address] Dr. Nam Keenan Lymphocytes/100 WBC (Bld) 38.0 % Normal 20.5-60.0 [facility] Comment on above: Performed By: #### L BCLH #### [facility] [address] [place] [address] Dr. Nam Keenan MANUAL DIFF REQ NO Normal [facility] Comment on above: Performed By: #### L BCLH #### [facility] [address] [place] [address] Dr. Nam Keenan MCH (RBC) [Entitic mass] 28.0 pg Normal 26.7-34.0 [facility] Comment on above: Performed By: #### L BCLH #### [facility] [address] [place] [address] Dr. Nam Keenan MCHC (RBC) [Mass/Vol] 33.4 g/dL Normal 29.9-35.2 [facility] Comment on above: Performed By: #### L BCLH #### [facility] [address] [place] [address] Dr. Nam Keenan MCV (RBC) [Entitic vol] 83.8 fL Normal 81.0-99.0 [facility] Comment on above: Performed By: #### L BCLH #### [facility] [address] [place] [address] Dr. Nam Keenan MONO # 0.8 103/ul Normal 0.3-0.8 [facility] Comment on above: Performed By: #### L BCLH #### [facility] [address] [place] [address] Dr. Nam Keenan Monocytes/100 WBC (Bld) 7.6 % Normal 1.7-12.0 [facility] Comment on above: Performed By: #### L BCLH #### [facility] [address] [place] [address] Dr. Nam Keenan NEUT # 5.4 103/ul Normal 1.4-6.5 [facility] Comment on above: Performed By: #### L BCLH #### [facility] [address] [place] [address] Dr. Nam Keenan Neutrophils/100 WBC (Bld) 51.8 % Normal 43.0-75.0 [facility] Comment on above: Performed By: #### L BCLH #### [facility] [address] [place] [address] Dr. Nam Keenan Platelet mean volume (Bld) [Entitic vol] 9.1 fL Critically low 9.5-13.5 [facility] Comment on above: Performed By: #### L BCLH #### [facility] [address] [place] [address] Dr. Nam Keenan PLT 342 103/ul Normal 150-450 [facility] Comment on above: Performed By: #### L BCLH #### [facility] [address] [place] [address] Dr. Nam Keenan RBC 4.32 106/ul Normal 4.20-5.40 [facility] Comment on above: Performed By: #### L BCLH #### [facility] [address] [place] [address] Dr. Nam Keenan WBC 10.3 103/ul Normal 4.0-11.0 [facility] Comment on above: Performed By: #### L BCLH #### [facility] [address] [place] [address] Dr. Nam Keenan PROF CHEM 8 (BAS METB)on Anion gap [Moles/Vol] 12.1 mmol/L Normal [facility] Comment on above: Performed By: #### B MP #### [facility] [address] [place] [address] Dr. Nam Keenan Calcium [Mass/Vol] 8.9 mg/dL Normal 8.5-10.1 [facility] Comment on above: Performed By: #### B MP #### [facility] [address] [place] [address] Dr. Nam Keenan Chloride [Moles/Vol] 105 mmol/L Normal 98-107 [facility] Comment on above: Performed By: #### B MP #### [facility] [address] [place] [address] Dr. Nam Keenan CO2 [Moles/Vol] 27.4 mmol/L Normal 21.0-32.0 [facility] Comment on above: Performed By: #### B MP #### [facility] [address] [place] [address] Dr. Nam Keenan Creatinine [Mass/Vol] 0.66 mg/dL Normal 0.55-1.02 [facility] Comment on above: Performed By: #### B MP #### [facility] [address] [place] [address] Dr. Nam Keenan EGFR-AF ENGLISH >60 Normal >=60 [facility] Comment on above: Performed By: #### B MP #### [facility] [address] [place] [address] Dr. Nam Keenan EGFR-NON AF ENGLISH >60 Normal >=60 [facility] Comment on above: Performed By: #### B MP #### [facility] [address] [address] [address] Nam Keenan Glucose [Mass/Vol] 105 mg/dL Normal 74-106 [facility] Comment on above: Performed By: #### B MP #### [facility] [address] [address] [address] Nam Keenan Potassium [Moles/Vol] 3.5 mmol/L Normal 3.5-5.1 [facility] Comment on above: Performed By: #### B MP #### [facility] [address] [address] [address] Nam Keenan Sodium [Moles/Vol] 141 mmol/L Normal 136-145 [facility] Comment on above: Performed By: #### B MP #### [facility] [address] [address] [address] Nam Keenan Urea nitrogen [Mass/Vol] 7.0 mg/dL Normal 7.0-18.0 [facility] Comment on above: Performed By: #### B MP #### [facility] [address] [address] [address] Nam Keenan Urea nitrogen/Creatinine [Mass ratio] 10.6 mg/mg Normal [facility] Comment on above: Performed By: #### B MP #### [facility] [address] [address] [address] Nam Keenan PREG QUANT HCGon 05-17-2022 HCG QUANT 532 mIU/mL Normal [facility] Comment on above: Performed By: #### L BCLH #### [facility] [address] [address] [address] Nam Keenan HCG RANGE SEE BELOW Normal [facility] Comment on above: Result Comment: 5-50 0.2-1 WEEK 50-500 1-2 WEEKS 100-5,000 2-3 WEEKS 500-10,000 3-4 WEEKS 1,000-50,000 4-5 WEEKS 10,000-100,000 5-6 WEEKS 15,000-200,000 6-8 WEEKS 10,000-100,000 2-3 MONTHS Performed By: #### L [facility] #### [facility] [address] [place] [address] Dr. Nam Keenan US PREG TVon 05-13-2022 [...] ROOSEVELT LOPEZ Date: 2022-05-13 13:02 Normal [facility] PREG QUANT HCGon 04-28-2022 HCG QUANT 139 mIU/mL Normal [facility] Comment on above: Performed By: #### L AMY #### [facility] [address] [place] [address] Dr. Nam Keenan HCG RANGE SEE BELOW Normal [facility] Comment on above: Result Comment: 5-50 0.2-1 WEEK 50-500 1-2 WEEKS 100-5,000 2-3 WEEKS 500-10,000 3-4 WEEKS 1,000-50,000 4-5 WEEKS 10,000-100,000 5-6 WEEKS 15,000-200,000 6-8 WEEKS 10,000-100,000 2-3 MONTHS Performed By: #### L [facility] #### [facility] [address] [place] [address] Dr. Nam Keenan PREG QUANT HCGon 04-26-2022 HCG QUANT 50 mIU/mL Normal [facility] Comment on above: Performed By: #### P REGQNT #### [facility] [address] [place] [address] Dr. Nam Keenan HCG RANGE SEE BELOW Normal [facility] Comment on above: Result Comment: 5-50 0.2-1 WEEK 50-500 1-2 WEEKS 100-5,000 2-3 WEEKS 500-10,000 3-4 WEEKS 1,000-50,000 4-5 WEEKS 10,000-100,000 5-6 WEEKS 15,000-200,000 6-8 WEEKS 10,000-100,000 2-3 MONTHS Performed By: #### P REGQNT #### [facility] [address] [place] [address] Dr. Nam Keenan PROGESTERONEon 04-19-2022 Progesterone 12.6 ng/mL Normal [facility] Comment on above: Result Comment: Foll icular phase 0.1 - 0.9 Luteal phase 1.8 - 23.9 Ovulation phase 0.1 - 12.0 First trimester 11.0 - 44.3 Second trimester 25.4 - 83.3 Third trimester 58.7 - 214.0 Postmenopausal 0.0 - 0.1 Performed By: #### P KIAN #### [facility] [address] [place] [address] Dr. Nam Keenan PROGESTERONEon 04-16-2022 Progesterone 9.5 ng/mL Normal [facility] Comment on above: Result Comment: Foll icular phase 0.1 - 0.9 Luteal phase 1.8 - 23.9 Ovulation phase 0.1 - 12.0 First trimester 11.0 - 44.3 Second trimester 25.4 - 83.3 Third trimester 58.7 - 214.0 Postmenopausal 0.0 - 0.1 Performed By: #### L AMYH #### [facility] [address] [place] [address] Dr. Nam Keenan PROGESTERONEon 03-15-2022 Progesterone 6.2 ng/mL Normal [facility] Comment on above: Result Comment: Foll icular phase 0.1 - 0.9 Luteal phase 1.8 - 23.9 Ovulation phase 0.1 - 12.0 First trimester 11.0 - 44.3 Second trimester 25.4 - 83.3 Third trimester 58.7 - 214.0 Postmenopausal 0.0 - 0.1 Performed By: #### L AMYH #### [facility] [address] [place] [address] Dr. Nam Keenan PROGESTERONEon 02-15-2022 Progesterone 11.0 ng/mL Normal [facility] Comment on above: Result Comment: Foll icular phase 0.1 - 0.9 Luteal phase 1.8 - 23.9 Ovulation phase 0.1 - 12.0 First trimester 11.0 - 44.3 Second trimester 25.4 - 83.3 Third trimester 58.7 - 214.0 Postmenopausal 0.0 - 0.1 Performed By: #### P KIAN #### [facility] [address] [place] [address] Dr. Nam Keenan Coding Summary.on 03-30-2021 Coding Summary. CD:[id number] G h0bWw+PGhlYWQ+CH8GDZL cH48uyICcuJ0YB5rBLH9T VHTGJRJRYI4UBM6wmQY3J VqdC9BoxdIi OtaqdLVnKY54EPy3NFB4h EyoYJdgaM6ylTHbU8z1Jl WgQR47yL54BHbaXJVqWyH 3LjZpbjsgbWFy F4aeJyTyjJChBak+PHRhY mxlIHdpZHRoPScxMDAlJy EwgTjtPY8aBc3hNHKoDFB vbGxhcHNlOiBj t1euXMVqOYmkEK3fhDpgV 9AvnNX0QEQpx4a3Ri86hY I+PXMwZKE4bSvbJOufq38 6HcPta3liUIS8 gKWpKRmmQMR1Z55oo0U6Z XCyFDEkGSI1kWH7jB5vqX rzecfwI1MjpLFvAxA3HDB 2sCXhmQ8mpKub saueqG3zFws+C73YHZ7MG TEVJP5FKdt6L1ZhRjaurM I+IP56IIWuWX92yJLcmWH hn4bjfJn3LpPa GJUdULL3lSirHXyrk7ImT RFcP32xiNBvg2F5KEOmpA tlrMQeZyNkfFI4mX5iTIe yjfxje8jspdrk Mvjtr5cacc49cH70G72zW VufQASlBIZ3IBDzPJGssS sgfs3jwE5vQa0+JTvgp1p hv6abmRv0LaNw BXXssaSwuYaiNVU4y0BpV q11L3VreHvzp0EnNda9kb 99xJJzp7O8dHC4RChiOFU vaH1qBIdjRbD1 CYVoPkZmyX00xUGkZZfdT w2uqVbkqQxvCV9cOUUcby zfRLJogU1yMMHnmMEbvAz lMV0uPOBgcsit x976SfRvEBA3IEDpdZDaT 1ZckW2zYoRhTSQmDKLrK1 TccEHwESuuA492AZmkLhW 0ZBIkxlVbF6Kd YYSivXgyXkS0f9F9Ga3Gv 9MqnglrFMV0DNyoNNIfHs SvGeLeFyI7O4GjXub0ZOZ caOzfYV8cS4Vj UHVpvovmkavkuLZ3LIEqR OFnlS05kVKbYCpwIr9ft7 N4q717VAArKGVaeL78Kf0 udDogMTBwdCBU uL4gjlcfr0ieaxmcJnBsC FYpVJy0CDk8JIRhrOzaZm TiYXW1RmR1QPY9hXKmqE9 sjAbmflibuE8d Oyc+A08laB7xZIE6CBF1e dfkWWEunfQaEB43EM04O3 RyPjwvdGFibGU+PGRpdiB ywAyeWW5mTrMq p5zwc5InVYnpX5ItJUVpV FbaVsx6PUNdPKZ4oZR1lX 7ySUUgJUmtd0I9kZD2O2U zbjHcfr5eg6eh BUGbUEkjH62dcWWdx4H0N POqlJC4WWIzdUvdJaZbsG 93Oyc+CXShyAuus7IrAfm wd8olp5edkQp7 JqDxWPZcrbNriCilJCH9q 4RoEv96Q66xUFezYFIyQF AuKIUiZSTzyEmhlm5xcO0 wIi8+PGNvbCB3 bSH1gY2jHUCwHnB3FHxpB 193ClHaeNCaKzdzp9dxh3 amkGp0HbLjCIQpgvLbiSq bHRN2o4XhCx64 J81vGIohOKIhEIGxZDGmQ JYmlHzdmq8qvP4qCm0+PC 3ey3gxte64wZ14qNC+PHR iIOC4zGbgDVaj AWQyoH4iVClaZcU2EEPaK nBfaE14uHTcOLttLm8azC xwvBhvNE4uNSYdhvlkm44 1KkUpt7pzOZKm qOSoQNeqHTA3A71jy9E8D ZAuMUGbOMO1bKR2mX3zzF lnbjogbGVmdDsgdmVydGl wHAncWJjwE509 IHRvcDsnPlBhdGllbnQgT sTfKJc5M0ZnCny9EODbmA xjAB1mvDNiJSypWa3utDq cpMerVX6rEXQd ehntd267NuUaf1wmOEOxt YVvCLxmRWR7S90gk2V3CW ZfSHBtMFJ4uVN2qE9laLy nbjogbGVmdDsg ikSpzWxcDDdwBUcqL357J HRvcDsnPkJpcnRoIERhdG N1IN71UV01oQZmw2F0bZN 6Q3JtPCMsrxjh kgtnrLV9ZDNqISYbeS90F q4knXjeCn9eRBFcOOG9XE PqgDTbJ7RogR4iYiEuTVU aDEVkU0WqxORe FLnfZ655RXmwFgE6KUHug gFdQ6SpIXIuwPiuRjM7x7 W7Yp4PJ7W4RK90YQ41uLL nm5G7tRX9G9Xd HFDyntyadzoxqPS7DCXcJ JKcuE60Pe6tyDzqMr0yYZ HgXTW1ZNMmxPQcI2HncH0 yOiAjMDAwMDAw Q7GwcZBnAJvjM217CWogD oI0ZUHnxhPhN9AvLCRcaO fvPcT0y3C7Af9GSFz7QZ2 2BD47bABjl6B4 oTT5N0SqGWRnbynwyyvda NF7OUYmRFOaaY88Pa3rlR egRo9vYJZzSVX2AZHxyRR hD6RpkI0qMyIg KUSzEFDnV0DfkDTpNKkqW 529JQcyUrX0LSYphrJpD9 NoGIEjlBxfOrZ6t7F0Xl2 UROTsLX50MDH6 hWN3UN47TV07Z1AvNfyya GFibGU+PHRhYmxlIHdpZH RoPScxMDAlJyBzdHlsZT0 eVg3hSBSkPGEv uBppjPQiAeStv6ynDBXjW XbsRI7adPwqU6RdlXH7VB Uwp5q6Jr97N41oT4EqlBB +ALOqvQG9hLR5 iN2jHtSnMpR9XHqwF492L nWjvLZaUjkmn7nzz1jtvA c5MdK8RODcawSzdIprMMV 8e3QvEx89R01l IHdpZHRoPSIxNSUiIHZhb Agafz3llJ6vJn4+PGNvbC V4qPA6gG5yLsLhBlT9QLr hV462FfAmsTHt Hsmee0pqh1zpbGh3EkUaQ OTejlOljYjzXML5k0OoNc 91C1UdiUsqy6NbVgx8we8 7lYDyr7A0kUE9 J4BjLGEteuuawHZsjLpyF R8vVOXiqgtfXQNocL6vSX BrU7n1ZiWmYrW9YImyB0C xqoU0GGGfwFNl QVkdXNN1J69ac9E7EMCiT XTxQHN6wZH6hP9yvYnwkl ogbGVmdDsgdmVydGljYWw wZXddV573WEPb pTocTLKfiS0fBBCcmVJzb AszAS9vQVDvtrckJh2HZU sHDhecKqHNF3cUKTCCCC9 9FG25aGRos7K3 kOK8T5RkSVYdpquaunnxw BM8KUBqUVNhtW32fRCmUK hqDx2lu0L3d757LZAaQBF vtI09Ju2hkOlx UBIelNJJmD4kbnpfz8aqj draMyBjAZPcKZw2VNx1LU GeiRoyRqFxPYJ9WcK1KAQ 2nZLjoB0ueGfc llrduM1xNbe+MDgvMjEvM Zv2YCjaeVF+MTJySBA3bH fpCExzYCAyuQ4gWQYbB0n 8JuQqXpK7WPro P7QfZIFfaanyGe38gA0sU bVfSxA2CSdcW8HyauC5BC RqhDUaTMurAOI6G98cu1D 0VUHeXPHyNWV4 iBT3zM8upRpdqoynqCOez DsgdmVydGljYWwtYWxpZ2 46IHRvcDsnPjMyIFllYXJ aRS89RM40uHNq i5C4tNS4B8PrVATnpfqkf vafdWO3AZWqCSBkqT63oN UrGEyrXt1cr6N8g182RBQ eAIQlcE61Zt6a iFoyVJGjwPJKlN3bixlme 3dwphcnBaIgKKMjPDl9ZW q9QAYzhNvySrPrJLZ3JgE 7BQY1lFBjyI1l zKjevmwquY4lJje+RmVtY YfdTN50XA07mYIqf5G7kQ T7V8SaYKJypcjibnzgtJQ 1VGEuPTBagB36 jKFbZHhlHj9sl9I4q648H CGdJSHltG90Hb8ckHiqOY AveTHAkF3ersqnc4mqxnn gIzAwMDAwMDt0 VZr7OFScgXmuOsMiEID3U eZ4PLY8hYLemX3lrIcsoc cejK0cJpy+U7U4eTV7pMM udDwvdGQ+PC90 pu71N5XsBxjdHko7PBXwB PG5cWG3gV8jBXIwWQrei3 B5xPR2W5SydtZzku6it6x vZETfXTwbK62z zBQij5E4QYLfcJV7DYOgg KciNePqwV19Vfy+PGNvbG bov7SdYktqh9nup1nheNl 9IjMwJSIgdmFs dJciDMU8j2PxAh10H56oW HdpZHRoPSIzMCUiIHZhbG ppjh3hmY8iMb5+PGNvbCB 5qPE8oS1yQlOg AdQ3PChkE210RvZotSDaA paot0mqf5pujUl7LbMrVB NenkYwyClyCBI8h5YdFb1 7N8YwwLmow1Lq Maq0wl52fBHdu3M2qIX0U 3BhZGRpbmctbGVmdDogMC 2zULXcxtzhNNIwxY3jMER kQ2o2NvJqNqF6 XFrzL8EcrbV2OTPzgBHrG MGseYWHeP8hczmbe6xnac htSoCwDRHpBGy6BCx2ZJI saWduOiBsZWZ0 GwM1YUP9sRDjiL4lqKajj qzsdD4hGed+WQm2k7hbmZ VoBH7fiDQ8FC79LH87zGZ aj8C2kZR0W6Pk VJXwdjfajxncmUL2SGHoX YTovQ00Ro1nzOfuZv9uYX QhNAX2FOVkwPTzL9NbxK2 yOiAjMDAwMDAw A2RkuMQoTCvvI473FKqlF qT3MYOwaiCxV1XcZRFgeK fsVlH5h9S2Mn4WSD76PS7 9GA03hMKlx2E3 gTV7T3VfHCCesuumvdfah BN3IXCfRUUhiG87Gu0znU pnQq8lDVCqBPA7CMFcpDX pI1JirG7bTvDv BDJfKFJlD7ZhvKHbFBidX 153YAkyXlR0VKFphrSwQ5 RuAYIneRjySfC3v7N1Wr9 HWi29DO88PG81 tTXbo9X8mDQ0W3FrPXCdq dfaplmkdOO9EGLsSFPqzN 76Hm5zmFjoDu8iKQPdJUQ 3LBMtkPTfA2Ud oP7zCdQiAJWvVHAjT9Zwm UTmKKmtK948RNxqHjZ7BC WhrpDfO9OtSPGkcIqyMtB 4n5A9Ib5RFHsy khx0F9WrKfnvsLF+PC90Y FNyNB54nPKwpLGms1xtbN i8RrOzZESeHQW6xJmiENv at3JnYZYzD86z bGFw (more content not included)... Normal [facility] Coding Summary.on 03-18-2021 Coding Summary. CD:[id number] G h0bWw+PGhlYWQ+MS0SNZJ pN84nrMJvrD4DP2hUXK3J GGIZDRXYYL2PYU0riOZ4J HvzP4PeqpJm AahjdEQfZE91VQa4XDA2v YosXKwcvB6uzWZnG6k4Ne MgUF73xF62DWtmYDZuViY 3LjZpbjsgbWFy V9ahReEtwPBpZwj+PHRhY mxlIHdpZHRoPScxMDAlJy SnoWdaRV5sNg8iUDVzXYS vbGxhcHNlOiBj e8llIKGiIXyjRP9kmPglL 7KhaUK1ZLKon4d4Gz85iM I+AUTxRMQ7tNazVSmyv68 3PxWqd2ajAAS9 fCIyIXloHAU4M05vv4M4S TTeMUViGKD4vSV2pW7tvG ghhvviZ8FkaWFyGaT8RJB 5cTOzoP2vnOfj mmfeaB0kFyx+X57KCL2ZI RJRVK3WQnp3G5MtCgbcpU I+LL79GLWjLY12aHUqoIX og7bnnEj7HrHd KMYqOFU9eBodOMoor2SdA WDdL40doVEda0M0NNIkhK qsiCDiJnHhjWU8lW0rQTk poslti9advlwl Cxzme8legf14gB32F36qZ WjoCZOfTMT3JYItJMDeyM mmsi8xhC1gEh2+TCcke5r pn3ngxCf4QeHf FSLxjoGapSmpFKZ8e2FrE b68F3QgyLexb0EzIef3ct 43sBPzf0T1wXW4XQuhSON gwU7jOZioGfC8 QCGzYtEkvP49iGOwPZnrR n5exCebtGfyXC6iINRikv ekYQTqiY8fVASuzOKvpJh jQQ7yUGZvooxg q341FfQnEXJ7LTMczGCzX 7HcbL5hMpDtVUXuSYSfQ3 VqeOTbNVtnB422SYbsNpK 8BUVdjfHxH8Cr ZKLzwOeaIkB4d5A5Bs3Uq 7OqttgiPPZ2FKuaYJDhCg P9QjBnOtX0H9PzSsz3ZLT flPlrJV9zJ8Dw LFWxtaqqsjawvRS6XMFtN SAskX84mVPyUTsyFh0qg3 J5i466PUHePMAoeK92Ep8 udDogMTBwdCBU mI8fpeyhm3kdtjlrZwVgJ AUgPXf5GUx2TFPtxQqvAy HfIPA2JdU7SYN6uGDivZ7 dkFqujgkkgW3j Oyc+S96cgZ4gCGE1UXO2m zlqADFocuLmFX54QD62Q8 RyPjwvdGFibGU+PGRpdiB qsPdwYM8yHpQp i9liv8OoSJuuH4CmXXGrH QglFjz0QENvQQA1jCD9oO 2nEINoVCcvl1R7bYE3L3A qnhWyhw0jb9be TQYlLKrfG82dtCOcr6U1V KUhnVB8YCIphDdrBkInlE 93Oyc+GIXreYzui4FjAzy ub5bls9agdGk8 AsMcMZFktsQpuJyfRPJ4z 8QnFj79H09sEHljASGtQQ UiQPViTBQviZswtp8lmL1 wIi8+PGNvbCB3 cPO1rE2yFUWyWnD1IJkbC 889PdKynABoWdvei9raf3 uduQc8PcRuBSTqbgAolHu gQDY9i4PxBe92 D40kCHyoGJYmJXFgTYUsM FRrfRqcfm6nxF3xHe2+PC 7va2ykvm06oW79nVK+PHR zQZD3bBrzNZyz VPGsgK6xPVsrRbC3XZLrZ vFphY47iOCqNQgpIf0lqR xtlHroYH7oTOQputiim91 0ShDeb6jvTBBp zZLlNIvzUJK3P80bs8H0L XGdMGUkVFW2zAZ0nM4lwA lnbjogbGVmdDsgdmVydGl tQRoxCVprZ008 IHRvcDsnPlBhdGllbnQgT sWwUMo0D6XqNbv5AXImpB ptWZ4mhCTmZMjxCm9djBy baAlvOV4vJORz ocgtt621WfGyg6owAQHov ISeOPkfTVE9N26oy7M0VU XiEIBdRIZ0qUI9mR4pcGs nbjogbGVmdDsg lmPtgLzuJVbjWHvdN146F HRvcDsnPkJpcnRoIERhdG M2SH01QX87iHNvr8Q9fWL 4A4YrSEEexmyo dpfjuXS0TSXoVTSgkW58P t6kxMtoQs4zCPOvVMJ2HR PxmKWsJ3TbmQ9gWlQaGEQ bWSGuQ6CukSXx REjmO953CZjdUeC1VCXjx oCyU6BdLMJopUkzUgH3g7 H4Os2HN7S8DV91AA71mRN yk7H5zVT3X5Jg JDKaczeqiheebFM8FYPkK IOtvG97Aw2wtPtmQw5zZD OoGJS9EVMzvGYnF5PjiA5 yOiAjMDAwMDAw J6FzkAYhUEnlF082FFxvQ cJ1OUSmfwFoJ2WuAFVumS ooHgO8u6J1Vw6HQCr8NG2 3MG75sCIuj0P4 gBR3Z8FdIWBfhbqigzsot SC3BDApYSTpdY45Ot9mpO hiUm1bFNChPVM4JPQzbZR aK7QwoE6xMsLo ZPCxSANpQ1EdeMZsQYtiK 571CAqgCzF0DDNaurBmH1 UpHNYhnYovOnM7p4T5Ek3 HFOBhUL12KPG4 pEG7ED33NN30E7VmEeydr GFibGU+PHRhYmxlIHdpZH RoPScxMDAlJyBzdHlsZT0 jBl6bMCRfBSKz uNfqnKXuHqWxg2haHWElE DpeFN8drXioB3DucKH8YS Rus7s8Wb22J87cP6DmbSN +MOZpwLG4dBN2 rZ4yKdQzIbM9NCilF309G zLymVOzZtlcf9vfk5ooiN b0XpL5TIHurkPlaIdxAMS 7j7VkZn84M58t IHdpZHRoPSIxNSUiIHZhb Jhkhx4ybO0dKj7+PGNvbC H3gVD8jH4aWvGeZjM3IXs rD340UiXrrBHq Ncxik8rcf2anePz3XjPzU VStzpLjqKtkSBT2c8WaJu 56J6IhsFfot3QqEpf1yu9 4fECxg2O4mFL1 L1LxJNYlqwuygKYakPpxK V2mGTDadiyzSOPtjY5vNE SsE8r7KqXtIrK4ZPywW2N xoaM9NBXpyTUp EUfiDQK6J44st9C5HGIfZ KVaMQD0fZP1bL8iiKjwql ogbGVmdDsgdmVydGljYWw nPJtnK586HUWh rPvqRMJirB6xOMXfwLWhw CltRF2aDPNsehteTe7WMQ vZKbtgGtAFA3wICUIRAN3 6GV42uLBbm4X7 fLK3S0PbTOZycujsduros GS0PAHhCAPpnV04uJGpVE jbBl8yp6F6m743SJZiYJZ yrX98Jx7lwRlg BQGqbHRXbW0fujhvh2bus jyyFpPyTAHoILe9ZPe1YK WvrLyqUtKlVJN1DgJ9OLO 6xJOolC0iwFii rcuogN6iEms+MDgvMjEvM Ni1MPtnxRH+GEZvVNC7bI qmUKxyQOQgiT8rLOIeT9p 5MuYeJxZ3CYok I4QzHQKmpilyNd53kX0zD hCuBpA3FKptP2IfxmX1JW UznXYiIRyiKGP1Y26gc6T 4RPNhRODoQSQ8 iZU8xM4heXyrqwikeDKqn DsgdmVydGljYWwtYWxpZ2 46IHRvcDsnPjMyIFllYXJ eBF24CU07kTBd n6O2cJS2X1WuRWBvzupti teybJT7ETChUMHhoL46sD RbEZsqKl8ey8Y3w358BKM oLQUwmD55Km8p sJltVBIwpUABzE7rzltac 6njxpmyTrNxMIWzHEh2QE j9AYIasCxuJaCtYQP5RnQ 8IML7uMQivD7m eUhxikowyW8wBii+RmVtY NjvKT83PR95sKPkn0W7rE C1V3KcCDJacnixoolnhON 1SYIpLKMflN70 mORvONpeVs6iw2L8n491D RAbBQGzkP20Nw8mzNcxES LsdSOPyI4jiditn3ynlio gIzAwMDAwMDt0 SYy7TVZxkQiiQwCmRHK1T hS1TLQ6jUIqrD7ibRajrn yicF4vOzr+QT3qmdurbpM 5FW70LE65U4If PjwvdGFibGU+PHRhYmxlI HdpZHRoPScxMDAlJyBzdH jwFW7tDq3kYNDdJHUduRk trCUvBqPnw2qd FKSoGApoPU6lqFvmV3Ria JE9LXGro8u0Ro42Z07xX9 JvdXA+KFMsvQP2cUZ4cN6 tHeYkSyL3QCtk D654WxXtrVPeFizsm8ccx 0yhoCn5LhWpQDTrqcYqcN xpVGO8y6YiRd40V99rWPi pZHRoPSIyMCUi GCEnzSkizx1kpN1gZu3+P PRdcFR7rDU0sD2zOiIsEk M4ASrrK523WvIvtTYaZkv sA61hW5BfmDB+ JCCrOyg7XTKghUdvRT0kg DVjHQtrPw2hKMS8WoGjJh XjUOheM6HdTWHagzrqhan zaCS3CLOnULAz pB06Dq5nvMrkTi2aKBZsT BZ8OMZxaTAxR1NlvL0iSv DtTYBsEWJtJ8CdpHWuKVv kZ719GXgdLwK6 AJTjniQjQ6LjIBOriDukP oR5v6Q9Gv3DySaziJEzOP 0zEbAmBLo8U5SkXoy9BEH ibIanMI7bpZUu PNyzWi6khLxsfMvzXT6nL KAqqogda529DcLyo7soQH NadJWxHLhhUXU6O71gz3Y 2TWKwICAqBMP9 sXJ6qZ8lfKutoqhytUUpd DsgdmVydGljYWwtYWxpZ2 50RBJguTypYnPIRfk7Y9Z bLua2QCMvfSyb CE9geYEhSSqzQz7awTodz LcwUP3yOFMnxpxpt769Lz Eva5imUXRluWPuGZejSZC 4G55vu9V1SHSk SGPkKIJ6hRF1wO3vhRaua jogbGVmdDsgdmVydGljYW uzSHloS786XCPelHdmEd4 YVix7M6IhEao7 VJEewTzeHD6ieVHvGWcbH a4zpLsthGakBQ6nPKNkhh crv419KuJhl3ucGNCihBV kTVzeJVB4F10t p2E1XWDdXANbYDE9aBW9b X1ujJqxyjyqmAFocUoyzc YhfFmaOPpyTFjlO253PUE vcDsnPlBheWVy OjwvdGQ+JV70qg94K7BfO judYuu6ZGYaRVO9qZX4jR 8eQPSwFVaun8M0pIR9C4J rbaJwem6iv5bx YXBz (more content not included)... [facility] Coding Summary. CD:[id number] G h0bWw+PGhlYWQ+MY7YOFQ sN81mpREmeQ5OV9zSWC2Z FKXRDXWVFJ4CSE7lgAT1K FvoF9ZrjjQa DkqatEGtOD26VNk6PVM3q GbqFMpmgC7tdUQwS2s3Mb KuTB51bG56XSgmZCYtWtC 3LjZpbjsgbWFy P0wtJtYedABeCjg+PHRhY mxlIHdpZHRoPScxMDAlJy NdsGezYC0aXr7pZJNzYSW vbGxhcHNlOiBj s7opXLCoJZwfMU3slJgqA 9PgiFT1PXNxq6s5Ju79cV I+QEGpXRS0pWhtFSbpr59 8OpZrh1pkDBM7 rDClACqwAAK9I53rn0A2R JYgIBLhVII4cWM3vQ7dnX glklgyL6ZtjLVvMcO2IAQ 4tWLxuK9anVpq txfcuY7hFka+A36WLR4IX ZBYGO2YAik5U1LqJftnoF I+FS60XQIyMA73mOMchPQ lc9sleXz1VdNa RHIeVOH4kLljWZavp5PuG FJyT12qaJZxu6I4SGVirT xczJOvMtTioDK2cY3bTYy txmhhe1feytcx Tnmsz9qicy68bC76A27lM SfoVHGeXHK1SWKeLLFyrT aeka4qcB3wBn1+SDksw4p ig3ugpRl8KpFt TNYickBsbIdnJUQ2g6OpA d58E3EzfZjon9SrBbe3qy 05rGNwk3C7jWE0YXzjMHY arU9nUSfyAdP0 RNKaMzCrfA69lNKqENegQ f7yyWsnhQnlXB2aEOVyur qlCKDrdQ8xAEYwwAXxfDh zWF7dDZUteztm o769BnGhNWR0XBYjxSGcQ 1YsjG8yUdDbUEIjSMSqV3 KweBSpXUmkY679SQdcZyQ 7DMDucdBnV9Lm RYWufTbxYrR5o3X1Xn7Rz 6ZdomjzSPE1UBzeEYRhCr Y7QdAqUvQ0I8UfXkr8WCW wuPnzGK8iS9Wp VKXjzhcxdyqjzYG5JMMfW ZLopH76cZPrXKkaCj5is7 E9n677JHReVCRigZ63Jy7 udDogMTBwdCBU pS9plhxeu6ssxhkhAdGfU WGtVPs0XSc9SNAkpQozXj QlMSF6CtN6RUU4qVFpmJ8 kvTfspufhbZ6p Oyc+B68syX3zTFP0RCE7e kqnVEFbtkZoPJ04ZO48J6 RyPjwvdGFibGU+PGRpdiB jdHhiHN0gPjNf o4fgq2KjHAlxS4DoSEVmW LloNoc2TZWxEOW5xDM5oL 1nUZCbMXaqe2M0lSL9C5K qkuRwdo0qp0oq OKKcAQhyQ55uiXMro7M8U ULkyYA1FBWmsDqpXaNtpC 93Oyc+HEHyiKbfa8GdNdz wl7upq7umsJx1 GmXxLDAdupOtbEscVXL1b 0DxKj91S48vQGfdEGXiKZ ShIAIkCBNujKkttu3klV7 wIi8+PGNvbCB3 sFE4yZ9dMMRkWxB3HOwzH 702YaJeeRJfAslun7bxf9 cljOi6BhAhBCYhfvJizVs mLIM2l2XfNo55 K85yPSldQYLpERDgOLZmH KMkiXgrot2eeG9iCe3+PC 1rg0ooum06uG34eUY+PHR dDHT6fOxsEMee FQLarC6rXKfjVkB0DQVqN nOpcK83nSMpJBjpCc2ciA bisKckMO2bEOAeouxro13 9XyHos3crSOAx kHYhSDfpGPY2O53vq8C6Y CFyBWHuFNC1yLH5pC3jxA lnbjogbGVmdDsgdmVydGl bMPdjNHeeK972 IHRvcDsnPlBhdGllbnQgT wEdJTs8S8TuHqp0FZUshR tzWX8pbAToWGhhTa4zlXf fyApaMO7jIJWx wsqlu850FvBgm0gtQUSku EVqKVncTVZ2Q39ef1S9AL BmXAGlRWU4tUX5jU2mcOw nbjogbGVmdDsg xiYbrYmpCKngSJjeA266Y HRvcDsnPkJpcnRoIERhdG X1EM77SG75zZWbh8K5kKQ 2E1TgTERwkrat jwazlDC2LGDhXBJmeD89J q1pyMfwSj5bGFZnPWD9ZB HogFDeP1WurD7uAqZxUMZ sXMNcR8GcrUBw AWwmA686GDmcCnN5SFBzf wNkD3EhGYDlgXuxUlI1s5 U9Ic4FZ9Q3WR97VA30lQG jd8V5sRY9B0Ji NONnfpqcutjfbHJ1STZtY SPscF55Jt8gfRgwCd6oZE FbVCE3EMPykBIgV4WuyW7 yOiAjMDAwMDAw Q8ApyEZhQPpeH440YBsfP nP9LRKbgbQeP7XsGNKgcN uyOwJ3v9P0Dg9PKMo0FE8 5UF02yIDpi2K7 cJS6P8YmMYLisgtgqctcc IH1ATPbBVSiyO41Wj1mzL ayCo7nLIJtZQA3VURrzUM xK2YdvU8nJoKj YVMjJUGbV2WmjWVwDFaxK 171QFvgKgW3WHDdfoEmA1 KiRQPvsDpoMjV6d6V6Hq0 NIPSzEZ42KSE8 qHR2NS28DV35D0IkPxssu GFibGU+PHRhYmxlIHdpZH RoPScxMDAlJyBzdHlsZT0 sFl2qEUEuWETs sRfxqVMnGaXqf8jhENRxG UqdJF1loCrnZ6XpeNX5KD Wep7a0Yl72J99gM8BydAO +AJEwcHK7fYS2 bV4nDqTfUoC1BStsO326F uFhiRZiYlhhk2ulj9oybE v7HaJ2OGPoksYpcJycJAO 2i9KaDv32P36s IHdpZHRoPSIxNSUiIHZhb Dpufo9rnU7aNv4+PGNvbC B0dHL1qZ1sFtOvWrD6ACy fG798FfFhvYPr Cilgk5gzj8hcvLo1MrWgC CXlhuZntJhyODU8i7IwYh 25V5FrzAiiu9EyMng1mb1 0tVJlw0N4bWC0 Z1ZpCGRffjlheQIalNmmY L0zAOHxbmtqOTKkiP8qRR UsX8b1ZnOeApH1QQdeM5O wnaD4ULHptSHw QTydFCQ4O06zc5I0UHLgX EAlZMN2xMH0tQ4ytGibkz ogbGVmdDsgdmVydGljYWw wNXasB867SSUa gObjTXRcbP7uHDMxnZQef RixCC7fMHQlogbqJu0UIL xBYgyaXkICX5aDZNHRXP7 2WR32qWRvp2A1 hGC3Q7SaDCXltevbigggb QK9UEByCDQutR50tWXbNH zdAz7jg2K1k130DSIxUYE zaI21Yk4smCvw PCGysILCiC0acbnut0nip yfaLwHpVHViEDe9IUj9JJ DpeLbxGdSnWQJ5MfW6MKK 3nTSjwH1kbSyq eunlpB3dQvo+MDgvMjEvM Tf3ATawbDM+WHJpWGE4oI nsLHsvDHDnmF0oASZgB8w 8IoCxGfJ8JRsb R7ZqKWMpkxamBl52lS4eW vVpEaL9ZNecW2UpqvC1RB SnvAFbAYakDJD5X77fo8X 6KZVuRDOzWBI5 rIQ3bC5pzUwtdwucrAHau DsgdmVydGljYWwtYWxpZ2 46IHRvcDsnPjMyIFllYXJ wEL40VK52xDTv c8P6wOP2N5EeXPXxaoqgh btxeXL6LBGtHICfjO98oC WdCRylLw6bk5G4j291OSH zJPMclB75Sj9s oCrvSYKccCIUmU0pcchfr 4fzcsiwJrJjQHKrWHf4DM i3CUEibSkyLnQvXBF4YvO 8YAU5aPFoeD2h oEhhhggogE8bOnc+RmVtY YvvAJ75FX37xWFka4I3bC L8C9GzHARzmkhifvhqbIJ 4NZLnQTWsiL94 pOOkCBqtSb4ke1G4u036J DHuRVIlhD18Yc9ccAytDA OweJKWoK2tfvklb5enupm gIzAwMDAwMDt0 ZFw7NIMygVatDkHnWZL4J jI4OMV3pTUvcS3blIswzw yruJ7rGjl+ZU8cvhjkqnV 5RB41CA50T5Bm PjwvdGFibGU+PHRhYmxlI HdpZHRoPScxMDAlJyBzdH spOB9cGd2fADYcSOIemXd pmUTkFjTkw5eh IBBiZIlgRV7xiCdrU6Zts RV2ANFie3i2Eq98P28gX6 JvdXA+ISTmiLQ4rEC1tT5 lIqNbCvZ0HRxe C900TvWuiTYvIdwuh9wzw 3bkoOp8IjMbQQPafbQjiB qiTWM5a0WrZu79B56gQPi pZHRoPSIyMCUi TWQlzLntjg8roG7pZb8+P CLehIV5mAI1tK0rWkEdSd Y3UNlrD594XeDlgWHsNke sR23aG1NfvQO+ GXOoRhy0UVJqcBfmAH3pu ZFoVHrjZx4eGYS7PvQwCe DcOPeoO3CqJFExyyxenrp xtPA5MTNxLKVs eW14Fz1tnNzmNe5kTMRyE YV7QFWetLQkH1ZnwB5dTv RoYTRmKQFiN2GrkDBkLJy gS646MUcaNtA7 KYBrovVbR4JdKSHtfTyiV zU9x8N3Dj8PcNzycGGbGS 4xElMxTPg8B7QpRtj0SUL yuPgyIY4cjLFd QKcmYt4xxUwqsTqbDN1gH WOybtyhd041AaQay8nlQI VryJApFNzmVGS7S43ui4M 5NJXrTOYaORG9 zFU0jN5xnZoggfoufLZip DsgdmVydGljYWwtYWxpZ2 96JSCbnVywZuPZPmo5L5F aVjg7RESxwFfu OI7vbLGhAGrnKx2mxMqzi QmzZQ6tPTVzjebll678Rv Rum1mhEFAvmTJwCIyfYEJ 9R63tc1A5XKOl ZQHkGCP9yNA4lR7cyAuxb jogbGVmdDsgdmVydGljYW jwKCldA663OQTmlHfvJb9 VOtf5E5XgZgg3 NKHicAdfVG5xwSVlIQkjR v4dkTnbuUscJM2oNJDvex kat546ViWzk2isAKIxhXW aBUcyJCY8A84d s1D3BVIiHPRdVZP3uFY9q Q2elGvcoehjyUVqqYmmuo GvxUkvHBqvZDnaJ710VVF vcDsnPlBheWVy OjwvdGQ+MI61hp18E6GkY qqkNfp5TSMlSZY8nXM0oV 7fQHFrLSqxb2F9yUK2Q5C dmrArwn6ub3xz YXBz (more content not included)... Normal [facility] Auto Diffon 03-12-2021 Basophils/100 WBC (Bld) 0.2 % Normal 0.0-2.0 [facility] Comment on above: Order Comment: Order Added by Discern Expert. Performed By: #### 2 969809, 1735082, 6320945, 4641682, 90747361, 96414496, [id number] ####[address] [place] [address] Basophils/Leukocyte s Auto (Bld) [Pure # fraction] 0.0 E9/L Normal 0.0-0.2 [facility] Comment on above: Order Comment: Order Added by Discern Expert. Performed By: #### 2 556633, 4485158, 9984141, 3169402, 57515802, 09279426, [id number] ####[address] [address] Eosinophils/100 WBC (Bld) 0.0 % Normal 0.0-8.0 [facility] Comment on above: Order Comment: Order Added by Discern Expert. Performed By: #### 2 694223, 4295420, 1520707, 8438563, 14932471, 36084653, 30211537 ####[address] [address] Eosinophils/Leukocy jacinta Auto (Bld) [Pure # fraction] 0.0 E9/L Normal 0.0-0.5 [facility] Comment on above: Order Comment: Order Added by Discern Expert. Performed By: #### 2 243881, 2355259, 7395734, 4227523, 92124972, 95037640, 02045331 ####[address] [address] Lymphocytes/100 WBC (Bld) 19.4 % Normal 14.0-50.0 [facility] Comment on above: Order Comment: Order Added by Discern Expert. Performed By: #### 2 862994, 6295927, 5922115, 1592917, 03181691, 15012024, 96316734 ####[address] [place] [address] Lymphocytes/Leukocy jacinta Auto (Bld) [Pure # fraction] 1.0 E9/L Normal 1.0-4.0 [facility] Comment on above: Order Comment: Order Added by Discern Expert. Performed By: #### 2 703530, 1770979, 5946703, 1145911, 45163064, 75382995, 12626064 ####[address] [place] [address] Monocytes/100 WBC (Bld) 6.9 % Normal 4.0-14.0 [facility] Comment on above: Order Comment: Order Added by Discern Expert. Performed By: #### 2 004418, 6636565, 9461927, 2182459, 62508649, 05596740, 21955780 ####[address] [place] [address] Monocytes/Leukocyte s Auto (Bld) [Pure # fraction] 0.3 E9/L Normal 0.2-1.0 [facility] Comment on above: Order Comment: Order Added by Discern Expert. Performed By: #### 2 989170, 8882022, 6962939, 1539136, 06006091, 42186423, 42900335 ####[address] [address] Neutrophils/100 WBC (Bld) 73.5 % Normal 36.0-75.0 [facility] Comment on above: Order Comment: Order Added by Discern Expert. Performed By: #### 2 565615, 7369541, 8659311, 4361657, 14579768, 72601702, 94344959 ####[address] [address] Neutrophils/Leukocy jacinta Auto (Bld) [Pure # fraction] 3.6 E9/L Normal 2.0-7.5 [facility] Comment on above: Order Comment: Order Added by Discern Expert. Performed By: #### 2 679467, 3003146, 4923525, 4304934, 19146436, 25052328, 84729238 ####[address] [place] [address] BMPon 03-12-2021 Creatinine [Mass/Vol] 0.8 mg/dL Normal 0.5-1.3 [facility] Comment on above: Performed By: #### 2 704207, 6989341, 6161065, 3821201, 52724936, 00403768, 05855478 ####[facility] [address] [place] [address] Urea nitrogen [Mass/Vol] 8 mg/dL Normal 5-21 [facility] Comment on above: Performed By: #### 2 764752, 4809220, 4647839, 9823583, 97843169, 37793659, 31756787 ####[facility] [address] [place] [address] Urea nitrogen/Creatinine [Mass ratio] 10 No Units Normal 10-20 [facility] Comment on above: Performed By: #### 2 583072, 6677295, 4911794, 5028945, 68809279, 46043054, 45761850 ####[facility] [address] [place] [address] Anion gap [Moles/Vol] 16 mmol/L Normal 6-16 [facility] Comment on above: Performed By: #### 2 356105, 6489963, 1550658, 0436253, 75437131, 35245791, 38777414 ####[facility] [address] [place] [address] Calcium [Mass/Vol] 8.3 mg/dL Low 8.9-11.1 [facility] Comment on above: Performed By: #### 2 996323, 0204650, 3753600, 8659244, 00368380, 14866598, 58831439 ####[facility] [address] [place] [address] Chloride [Moles/Vol] 99 mmol/L Low 101-111 [facility] Comment on above: Performed By: #### 2 568329, 9516081, 7798249, 0829976, 10806383, 71134699, 17499878 ####[facility] [address] [place] [address] CO2 [Moles/Vol] 21 mmol/L Normal 21-31 [facility] Comment on above: Performed By: #### 2 979779, 5989250, 6407777, 6432389, 58576603, 08570958, 87739073 ####[facility] [address] [place] [address] Glucose [Mass/Vol] 127 mg/dL Normal 55-199 [facility] Comment on above: Result Comment: If t his glucose result represents a fasting glucose, interpretation should refer to the following reference range: 55-99 mg/dL Performed By: #### 2 416113, 0970268, 5648752, 6769170, 46978394, 66796008, 82390400 ####[facility] [address] [place] [address] Potassium [Moles/Vol] 3.5 mmol/L Normal 3.5-5.3 [facility] Comment on above: Performed By: #### 2 523392, 6826932, 4363911, 5211525, 79736578, 46972119, 42341486 ####[facility] [address] [place] [address] Sodium [Moles/Vol] 132 mmol/L Low 135-145 [facility] Comment on above: Performed By: #### 2 476142, 3717422, 8946453, 6468479, 60649745, 44406767, 65292030 ####[facility] [address] [place] [address] CBC w/ Auto Diffon Erythrocyte distribution width (RBC) [Ratio] 14.2 % Normal 10.9-14.2 [facility] Comment on above: Performed By: #### 2 199398, 3258305, 0201246, 5138638, 34776656, 45798121, 03005131 ####[facility] [address] [place] [address] Hematocrit (Bld) [Volume fraction] 39.9 % Normal 34.0-46.0 [facility] Comment on above: Performed By: #### 2 649600, 8256083, 8999373, 0879978, 54475523, 47284849, [id number] ####[facility] [address] [place] [address] Hemoglobin (Bld) [Mass/Vol] 13.0 g/dL Normal 12.0-16.0 [facility] Comment on above: Performed By: #### 2 838533, 0611457, 4250574, 0230202, 10188673, 66611456, 46988106 ####[address] [address] MCH (RBC) [Entitic mass] 27.3 pg Normal 27.0-34.0 [facility] Comment on above: Performed By: #### 2 833602, 3884773, 4474445, 9215263, 34461063, 92974433, 19795491 ####[address] [address] MCHC (RBC) [Mass/Vol] 32.7 g/dL Normal 31.4-36.0 [facility] Comment on above: Performed By: #### 2 307419, 5922932, 2428221, 7481937, 83896067, 45157165, 47657833 ####[address] [address] MCV (RBC) [Entitic vol] 83.4 fL Normal 80.0-100.0 [facility] Comment on above: Performed By: #### 2 116552, 3646751, 2719162, 7929215, 79193231, 11259503, 61023923 ####[address] [address] Platelet mean volume (Bld) [Entitic vol] 7.8 fL Normal 6.4-10.8 [facility] Comment on above: Performed By: #### 2 645438, 9083473, 5131101, 4214118, 13818185, 21624858, 71690041 ####[address] [address] Platelets (Bld) [#/Vol] 188.0 E9/L Normal 150.0-500.0 [facility] Comment on above: Performed By: #### 2 578800, 4447925, 8044192, 7903591, 32262079, 02904714, 33042097 ####[facility] [address] [place] [address] RBC (Bld) [#/Vol] 4.8 E12/L Normal 4.3-5.9 [facility] Comment on above: Performed By: #### 2 652919, 0781952, 4067886, 8104577, 18867786, 59013945, 14493384 ####[facility] [address] [place] [address] WBC corrected for nucl RBC Auto (Bld) [#/Vol] 4.9 E9/L Normal 4.0-11.0 [facility] Comment on above: Performed By: #### 2 337067, 0821122, 0439958, 5727302, 15076494, 27214223, 93094578 ####[facility] [address] [place] [address] CTA Cheston 03-12-2021 CTA Chest Exam Date/Time: [...] 370 Contrast amount in ml's: 79 Normal [facility] Consent for Treatmenton Consent for Treatment [id number] .00CD:127 Normal [facility] D-Dimeron 03-12-2021 Fibrin D-dimer FEU (PPP) [Mass/Vol] 586 [id number] Abnormal 215-500 [facility] Comment on above: Result Comment: Resu [...] infections Liver cirrhosis Performed By: #### 2 080435, 0205542, 8473156, 0806076, 75559090, 51311196, 26127411 ####[facility] [address] [place] [address] Discharge Instructionson Discharge Instructions [id number] 1.00CD:127 Normal [facility] ED Clinical Summaryon 2020 ED Clinical Summary [address] [address] ED Clinical Summary Person Information Name: ED MURPHY [place] Age: 30 Years : 1990 Sex: Female Language: Colombian PCP: Tricia Dewey CNP Marital Status: Phone: [phone] MRN: Visit Id: Visit Reason: Fever; Diarrhea; [...] 12:55:56 03/12/2021 12:55:56 03/12/2021 12:55:56 ADDRESS: [address] [place] [phone] PHYS DOC NOTES: MEDICAL INFORMATION: Prescriptions Given: New Medications [facility], [address] [place], [place] [phone], [phone] albuterol (albuterol CFC free 90 mcg/inh Inh [...] Instructions: Follow up: With: Address: When: Tricia Beck [address] [place] [address], [address] [place] [address] Business (1) In 3 days DIAGNOSIS: COVID-19; Near syncope Normal [facility] ED Note-Physicianon 03-12-20 ED Note-Physician Basic [...] puff(s), Inhalation, QID, 8 gram, Refill(s) 0, [facility] 173, cm, 03/12/21 9:08:00 EST, Height/Length Dosing, 125, kg, 03/12/21 9:08:00 EST, Weight Dosing azithromycin, 250 mg, Oral, As Directed, Take two tabs by mouth on day one, then one tab daily, # 6 tab(s), Refills(s) 0, Pharmacy: [facility], 173, cm, 03/12/21 9:08:00 EST, Height/Length Dosing, 125, kg, 03/12/21 9:08:00 EST, Weight Dosing dexamethasone, 6 mg = 1 tab(s), Oral, Daily, X 7 day(s), # 7 tab(s), Refills(s) 0, Pharmacy: [facility], 173, cm, 03/12/21 9:08:00 EST, Height/Length [...] Dewey In 3 days [address] [facility], [address] [place] [phone] Business (1) Additional Instructions: Problem List/Past Medical [...] Past, denies, (more content not included)... Normal [facility] Comment on above: Result Comment: Elec tronically Signed By: Tal Gonzalez DO\.br\Date and Time Signed: 03/12/21 12:46 EST ED Patient Education Noteon 03-12-2021 ED Patient Education Note Normal [facility] ED Patient Summaryon 021 ED Patient Summary [address] [address] Patient Discharge Instructions Person Information Name: ED MURPHY Age: 30 Years Arrival Date: 03/12/2021 08:55:19 Discharge Diagnosis: COVID-19; Near syncope Primary Care Physician: Tricia Dewey CNP Provider Information Primary Provider: Tal Gonzalez DO Advanced Sox Analyst:None The exam and treatment you received in the Emergency Department were for an urgent problem and are not intended as complete care. It is important that you follow up with a doctor, nurse practitioner, or physician?s assistant case manager for ongoing care. If your symptoms become worse or you do not improve as expected and you are unable to reach your usual health care provider, you should return to the Emergency Department. We are available 24 hours a day. ED MURPHY has been given the following list of patient education materials, prescriptions and follow-up instructions: Follow-up Instructions: With: Address: When: Tricia Dewey [address] [facility] [address] [place] [address] Business (1) In 3 days In the event that this physician does not participate in your insurance network, please consult with your insurance company to find a nearby participating provider. Patient Education Materials: A MESSAGE TO ALL PATIENTS REGARDING OPIOIDS PRESCRIPTION OPIOIDS: WHAT YOU NEED TO KNOW Prescription opioids can be used to help relieve uwefsgec-od-ylcadl pain and are often prescribed following a [...] be struggling with addiction, tell your health resident care director and ask for guidance or call [facility] National Helpline at 8-480-280-CKAO. r Source: Department of Health and [facility] (more content not included)... Normal [facility] PT & PTTon 03-12-2021 aPTT Coag (PPP) [Time] 30.8 second(s) Normal 25.1-36.5 [facility] Comment on above: Result Comment: Hepa rin therapeutic range (represented by Anti-Factor Xa activity of 0.2 - 0.4 U/mL) corresponds to PTT of 56.6 - 109.0 sec. Performed By: #### 2 522595, 8968866, 7723239, 3975063, 22813348, 51718384, 88642049 ####[facility] [address] [place] [address] INR Coag (PPP) [Relative time] 1.2 {INR} Invalid Interpretation Code [facility] Comment on above: Result Comment: INR results are specifically intended to assess patients stabilized on long-term Anticoagulation therapy suggested INR?s ?Less Intensive Anticoagulation? 2.0 ? 3.0 Conventional Range 3.0 ? 4.5 Performed By: #### 2 965189, 9446210, 4480240, 9464728, 37233021, 01345580, 04343718 ####[facility] [address] [place] [address] PT Coag (PPP) [Time] 14.1 second(s) High 10.2-12.9 [facility] Comment on above: Performed By: #### 2 166981, 3314872, 4126351, 2081073, 00417611, 13559468, 58575304 ####[facility] [address] [place] [address] Troponin 0 Hr.on 03-12-2021 Troponin I.cardiac [Mass/Vol] 3.90 pg/mL Low 10.10-27.10 [facility] Comment on above: Result Comment: The 95% CI (Confidence Interval) PPV (Positive Predictive Value) for myocardial infarction in females is 38 pg/mL, in males 51 pg/mL. The results should be used in conjunction with clinical conditions of myocardial infarction. (Access High Sensitivity Troponin I Instructions For Use, [employer], November 2017) Performed By: #### 2 282345, 9420540, 0632081, 8190301, 15595436, 75150059, 65357040 ####[facility] [address] [place] [address] XR Chest Single Viewon 03-12 XR Chest [...] DO Transcribed by: ROBERT Technologist: FAUSTINA Shepherd [facility] eGFRon 03-12-2021 GFR/1.73 sq M.predicted among blacks MDRD (S/P/Bld) [Vol rate/Area] mL/min/{1.73_m2} Normal >=59 [facility] Comment on above: Order Comment: Order added by Discern Expert. Result Comment: eGFR is race adjusted. AA=. Performed By: #### 2 179580, 3649507, 7416100, 2165525, 00356028, 51127834, 24821618 ####[facility] [address] [place] [address] GFR/1.73 sq M.predicted among non-blacks MDRD (S/P/Bld) [Vol rate/Area] mL/min/{1.73_m2} Normal >=59 [facility] Comment on above: Order Comment: Order added by Discern Expert. Result Comment: Access Developer nandini kidney disease could be indicated at eGFR's of less than 60 mL/min/1.73m2. Kidney failure is indicated at less than 15 mL/min/1.73m2. Performed By: #### 2 140949, 2893355, 8291323, 7976801, 68501168, 27239662, 17553666 ####[facility] [address] [place] [address] Consent for Treatmenton Consent for Treatment [id number] .00CD:127 Normal [facility] Physician Orderon 03-10-2021 Physician Order [id number]# 1.00CD:127 Normal [facility] XR Chest 2 Viewson XR Chest [...] DO Transcribed by: ROBERT Technologist: ISAAC Normal [facility] Vital Signs Date Time Vital Sign Value Performing Clinician Oseas dobbins 10-21-2024 14:17-0400 Body mass index (BMI) [Ratio] 42.44 kg/m2 Aquiles Adrian DO Work Phone: [facility] 10-21-2024 14:17-0400 Body weight 128.48 kg Aquiles Adrian DO Work Phone: [facility] 10-21-2024 14:17-0400 Diastolic blood pressure 72 mm[Hg] Aquiles Adrian DO Work Phone: [facility] 10-21-2024 14:17-0400 Systolic blood pressure 110 mm[Hg] Aquiles Adrian DO Work Phone: [facility] 10-14-2024 15:07-0400 Body mass index (BMI) [Ratio] 42.67 kg/m2 Aquiles Adrian DO Work Phone: [facility] 10-14-2024 15:07-0400 Body weight 129.18 kg Aquiles Adrian DO Work Phone: [facility] 10-14-2024 15:07-0400 Diastolic blood pressure 70 mm[Hg] Aquiles Adrian DO Work Phone: [facility] 10-14-2024 15:07-0400 Systolic blood pressure 110 mm[Hg] Aquiles Adrian DO Work Phone: [facility] 09-30-2024 15:47-0400 Body mass index (BMI) [Ratio] 42.37 kg/m2 Flower DE LA PAZ Work Phone: [facility] 09-30-2024 15:47-0400 Body weight 128.25 kg Flower DE LA PAZ Work Phone: [facility] 09-30-2024 15:47-0400 Diastolic blood pressure 80 mm[Hg] Flower DE LA PAZ Work Phone: [facility] 09-30-2024 15:47-0400 Systolic blood pressure 130 mm[Hg] Flower DE LA PAZ Work Phone: [facility] 09-17-2024 10:49-0400 Body mass index (BMI) [Ratio] 41.97 kg/m2 Aquiles Adrian DO Work Phone: [facility] 09-17-2024 10:49-0400 Body weight 127.06 kg Aquiles Adrian DO Work Phone: [facility] 09-17-2024 10:49-0400 Diastolic blood pressure 70 mm[Hg] Aquiles Adrian DO Work Phone: [facility] 09-17-2024 10:49-0400 Systolic blood pressure 112 mm[Hg] Aquiles Adrian DO Work Phone: [facility] 08-27-2024 09:21-0400 Body mass index (BMI) [Ratio] 41.52 kg/m2 Flower Otero PA Work Phone: [facility] 08-27-2024 09:21-0400 Body weight 125.7 kg Flower Otero PA Work Phone: [facility] 08-27-2024 09:21-0400 Diastolic blood pressure 70 mm[Hg] Flower Shanna PA Work Phone: [facility] 08-27-2024 09:21-0400 Systolic blood pressure 120 mm[Hg] Flower Shanna PA Work Phone: [facility] 08-01-2024 09:31-0400 Body mass index (BMI) [Ratio] 41.21 kg/m2 Aquiles Adrian DO Work Phone: [facility] 08-01-2024 09:31-0400 Body weight 124.74 kg Aquiles Adrian DO Work Phone: [facility] 08-01-2024 09:31-0400 Diastolic blood pressure 72 mm[Hg] Aquiles Adrian DO Work Phone: [facility] 08-01-2024 09:31-0400 Systolic blood pressure 112 mm[Hg] Aquiles Adrian DO Work Phone: [facility] 06-03-2024 14:49-0500 Body mass index (BMI) [Ratio] 40.58 kg/m2 Aquiles Adrian DO Work Phone: [facility] 06-03-2024 14:49-0500 Body weight 122.83 kg Aquiles Adrian DO Work Phone: [facility] 06-03-2024 14:49-0500 Diastolic blood pressure 72 mm[Hg] Aquiles Adrian DO Work Phone: [facility] 06-03-2024 14:49-0500 Systolic blood pressure 106 mm[Hg] Aquiles Adrian DO Work Phone: [facility] 05-02-2024 11:56-0500 Body mass index (BMI) [Ratio] 40.28 kg/m2 Aquiles Adrian DO Work Phone: [facility] 05-02-2024 11:56-0500 Body weight 121.93 kg Aquiles Adrian DO Work Phone: [facility] 05-02-2024 11:56-0500 Diastolic blood pressure 70 mm[Hg] Aquiles Adrian DO Work Phone: [facility] 05-02-2024 11:56-0500 Systolic blood pressure 110 mm[Hg] Aquiles Adrian DO Work Phone: [facility] 02-15-2024 14:26-0500 Body mass index (BMI) [Ratio] 41.77 kg/m2 Flower DE LA PAZ Work Phone: [facility] 02-15-2024 14:26-0500 Body weight 126.46 kg Flower DE LA PAZ Work Phone: [facility] 02-15-2024 14:26-0500 Diastolic blood pressure 80 mm[Hg] Flower DE LA PAZ Work Phone: [facility] 02-15-2024 14:26-0500 Systolic blood pressure 120 mm[Hg] Flower DE LA PAZ Work Phone: [facility] 02-12-2024 08:50-0500 Body mass index (BMI) [Ratio] 41.8 kg/m2 Aquiles Adrian DO Work Phone: [facility] 02-12-2024 08:50-0500 Body weight 126.55 kg Aquiles Adrian DO Work Phone: [facility] 02-12-2024 08:50-0500 Diastolic blood pressure 72 mm[Hg] Aquiles Adrian DO Work Phone: [facility] 02-12-2024 08:50-0500 Systolic blood pressure 118 mm[Hg] Aquiles Adrian DO Work Phone: [facility] Healthcare Encounters Encounter Date Encounter Type Care Provider Facility Start: 10-22-2024 End: 10-22-2024 Clinisync Result Encounter Aquiles Adrian DO Work Phone: [facility] External Department Unsolicited Start: 10-22-2024 End: 10-22-2024 Clinisync Result Encounter Aquiles Adrian DO Work Phone: [facility] External Department Unsolicited Start: 10-21-2024 End: 10-21-2024 ambulatory AQUILES ADRIAN Not Available Start: 10-21-2024 End: 10-21-2024 Bamboo flowsheet Aquiles Adrian DO Work Phone: [facility] BCP OB Start: 10-21-2024 End: 10-21-2024 Bamboo flowsheet Aquiles Adrian DO Work Phone: [facility] Start: 10-21-2024 End: 10-21-2024 flow sheet Aquiles Adrian DO Work Phone: [facility] Comment on above: Third trimester preg lakia ([facility]); 36 weeks gestation of ([facility]); Multigravida of advanced maternal age in third trimester ([facility]); HSV infection; Excessive growth affecting management of , antepartum, single or unspecified fetus ([facility]) Start: 10-16-2024 End: 10-16-2024 Clinisync Result Encounter Aquiles Adrian DO Work Phone: [facility] External Department Unsolicited Start: 10-16-2024 End: 10-16-2024 Clinisync Result Encounter Aquiles Adrian DO Work Phone: [facility] External Department Unsolicited Start: 10-14-2024 End: 10-14-2024 flow sheet Aquiles Adrian DO Work Phone: [facility] Comment on above: 35 weeks gestation o f ([facility]); Third trimester ([facility]); Multigravida of advanced maternal age in third trimester ([facility]); Excessive growth affecting management of , antepartum, single or unspecified fetus ([facility]); Low iron; HSV infection Start: 10-14-2024 End: [...] Comment on above: Third trimester preg lakia ([facility]); 33 weeks gestation of ([facility]) Start: 09-30-2024 End: 09-30-2024 ambulatory FLOWER OTERO [...] Available Start: 08-08-2024 End: 08-08-2024 ambulatory AQUILES [facility] Start: 08-07-2024 End: 08-07-2024 Chart abstracting Scanning Provider External [facility] [place] Start: 08-01-2024 End: 08-01-2024 flow sheet Aquiles [...] Start: 04-11-2024 End: 04-11-2024 ambulatory Aquiles Adrian Facility:[facility] Start: 04-11-2024 End: 04-11-2024 Departed Referred Aquiles Adrian DO Work Phone: [facility] Start: 04-11-2024 [...] Date Procedure Procedure Detail Performing Clinician Start: 10-22-2024 US OB BPP W NON-STRESS Aquiles Adrian DO Work Phone: Start: 10-21-2024 Urnls dip stick/tabl et rgnt non-auto w/o micrscp Aquiles Adrian DO Work Phone: Start: 10-16-2024 US OB BPP W NON-STRESS Aquiles Adrian DO Work Phone: Start: 10-14-2024 Urnls dip stick/tabl et rgnt non-auto w/o micrscp Aquiles Adrian DO Work Phone: Start: 10-09-2024 US OB BPP W NON-STRESS Aquiles Adrian DO Work Phone: Start: 10-02-2024 OB BPP W NON-STRESS Aquiles Adrian DO Work Phone: Start: 09-30-2024 Urnls dip stick/tabl et rgnt non-auto w/o micrscp Flower DE LA PAZ Work Phone: Start: 09-25-2024 US OB BPP W NON-STRESS Aquiles Adrian DO [...] Start: 12-09-2024 Influenza vaccination Influenza Vacc ine [facility] Start: 10-28-2024 End: 10-28-2024 Patient encounter procedure 10/28/2024 11:20 AM EDT Routine [facility] [address] [place] [address] Aquiles Campbell, DO [address] [place] [address] [facility] Start: 10-21-2024 End: 10-21-2025 CULTURE, GROUP B STREP WITH SUSCEPTIBLITY CULTURE, GROUP B STREP WITH SUSCEPTIBLITY Lab Routine Third trimester ([facility]) Expected: 10/21/2024, Expires: 10/21/2025 [facility] Work Phone: Comment on above: Expected: 10/21/2024 , Expires: 10/21/2025 Start: 10-21-2024 End: 10-21-2024 Patient encounter procedure 10/21/2024 2:00 PM EDT Routine [facility] [address] [place] [address] Aquiles Campbell, DO [address] [place] [address] [facility] Start: 10-14-2024 End: 10-14-2024 Patient encounter procedure 10/14/2024 2:30 PM EDT Routine [facility] [address] [place] [address] Aquiles Campbell, DO [address] [place] [address] [facility] Start: 10-14-2024 End: 10-14-2024 Professional / ancillary services management 10/14/2024 2:00 PM EDT Ancillary Procedure [facility] [address] [place] [id number] [facility] Start: 09-30-2024 End: 09-30-2024 [...] AM EDT Routine [facility] [address] [facility] [place] [address] Aquiles Campbell, DO [address] [place], [place] [id number] [facility] Start: 09-17-2024 End: 09-17-2024 Professional / ancillary services management 09/17/2024 9:30 AM EDT Ancillary Procedure [facility] [address] [place] [address] [facility] Start: 08-27-2024 End: [...] 08/08/2024 8:00 AM EDT Appointment [facility] [address] [place] [address] [facility] Start: 07-01-2024 End: 07-01-2024 Patient encounter procedure 07/01/2024 9:40 AM EDT Routine [facility] [address] [place] [address] Flower Otero PA [address] [place] [address] [facility] Start: 07-01-2024 End: 07-01-2024 Professional / ancillary services management 07/01/2024 8:30 AM EDT Ancillary Procedure [facility] [address] [place] [address] [facility] Start: 06-11-2024 End: 06-11-2024 Patient encounter procedure 06/11/2024 8:40 AM EST Office Visit [facility] [address] [place] [phone] Aquiles Campbell, DO [address] [place] [address] [facility] Start: 06-03-2024 End: 06-03-2024 Patient encounter procedure 06/03/2024 2:20 PM EST Routine [facility] [address] [place] [address] Aquiles Campbell, DO [address] [place] [address] [facility] Start: 06-03-2024 End: 08-01-2024 [...] on above: Arrived Start: 04-11-2024 Urine culture [facility] Start: 04-11-2024 Bacteria identified in Urine by Culture Urine Culture [facility] Start: 04-11-2024 End: 04-11-2024 ambulatory 04/11/2024 1:00 PM EST Initial [facility] [address] [place] [address] [facility] Start: 04-11-2024 End: 04-11-2024 Professional / ancillary services management 04/11/2024 12:30 PM EST Ancillary Procedure [facility] [address] [place] [address] [facility] Start: 02-15-2024 End: 02-15-2024 Patient encounter procedure [facility] Comment on above: Arrived Start: 02-12-2024 End: 02-12-2024 Patient encounter procedure 02/12/2024 8:50 AM EST Office Visit [facility] [address] [place] [address] Aquiles Campbell, [address] [place] [address] Arrived [facility] Comment on above: Arrived Start: 2009 Screening for malign ant neoplasm of cervix Pap Smear [facility] Start: 11-29-2007 DTaP,Tdap and Td Vaccines (1 - Tdap) DTaP,Tdap and Td Vaccines (1 - Tdap) [facility] Start: 2006 Adult BMI Screening Adult BMI Screen ing [facility] Start: 2000 Depression Screening Depression Scre ening [facility] Start: 2000 Tobacco Screening Tobacco Screening [facility] CHLAMYDIA TRACHOMATI S (GENITO/STI) CHLAMYDIA TRACHOMATIS (GENITO/STI) Lab Routine STD exposure Ordered: 06/03/2024 [facility] Comment on above: Ordered: 06/03/2024 Cytology Cervical or vaginal smear or scraping study Pap Smear Pathology and Cytology Routine Well woman exam with routine gynecological exam Ordered: 02/15/2024 [facility] Work Phone: Comment on above: Ordered: 02/15/2024 Hemoglobin A1c/Hemoglobin.total in Blood Hemoglobin A1c Lab Routine Third trimester 28 weeks gestation of Size of fetus inconsistent with dates in second trimester Ordered: 08/27/2024 [facility] Comment on above: Ordered: 08/27/2024 Human papilloma viru s DNA [Presence] in Unspecified specimen by Probe with amplification HPV DNA probe, amplified Microbiology Routine Well woman exam with routine gynecological exam Ordered: 02/15/2024 [facility] Comment on above: Ordered: 02/15/2024 Neisseria gonorrhoea e DNA [Presence] in Unspecified specimen by LYNNETTE with probe detection Neisseria gonorrhea DNA probe, direct Lab Routine STD exposure Ordered: 06/03/2024 [facility] Comment on above: Ordered: 06/03/2024 SURESWAB(R) ADVANCED VAGINITIS PLUS, TMA SURESWAB(R) ADVANCED VAGINITIS PLUS, TMA Pathology and Cytology Routine STD exposure Ordered: 06/03/2024 [facility] Work Phone: Comment on above: Ordered: 06/03/2024 Payers Date Payer Category Payer Self-pay 2024 [employer] - [place] [id number] 2023 [employer] [id number] 2023 Unknown [id number] 1990 Unknown [id number] [id number] 1988 Unknown [id number] [id number] 1988 Unknown [id number] [id number] 1988 Unknown [id number] [id number] 1988 Unknown [id number] [id number] 1988 Unknown [id number] 2.16.840.1.613898.3.579. 2.593 1988 Unknown [id number] 2.16.840.1.971880.3.579. 2.593 1988 Unknown [id number] 2.16.840.1.626186.3.579. 2.593 1988 Unknown [id number] 2.16.840.1.879746.3.579. 2.593 1988 Unknown [id number] 2.16.840.1.579150.3.579. 2.593 1988 Unknown [id number] 2.16.840.1.124849.3.579. 2.593 1988 Unknown [id number] 2.16.840.1.655697.3.579. 2.593 1988 Unknown [id number] 2.16.840.1.253286.3.579. 2.1286 1988 Unknown [id number] 2.16840.1.733669.3.579. 2.1259 1988 Unknown [id number] 2.16.840.1.243075.3.579. 2.1259 1988 Unknown [id number] 2.16840.1.448535.3.579. 2.1259 1988 Unknown [id number] 2.840.1.399440.3.579. 2.125 1988 Unknown [id number] 2.840.1.263184.3.579. 2.1258 1988 Unknown [id number] 2.840.1.378732.3.579. 2.1258 1988 Unknown [id number] 2.840.1.030610.3.579. 2.125 1988 Unknown [id number] 2.840.1.014751.3.579. 2.1258 1988 Unknown [id number] 2.840.1.006416.3.579. 2.1258 1988 Unknown [id number] 2.840.1.290160.3.579. 2.1258 1988 Unknown [id number] 2.840.1.373812.3.579. 2.125 1988 Unknown [id number] 2.840.1.249034.3.579. 2.1259 1988 Unknown [id number] 2.840.1.060449.3.579. 2.1258 1988 Unknown [id number] 2.16840.1.885418.3.579. 2.1259 1988 Unknown [id number] 2.16840.1.265136.3.579. 2.1259 1988 Unknown [id number] 2.16.840.1.493136.3.579. 2.1259 1988 Unknown [id number] 2.16.840.1.960444.3.579. 2.1259 1959 Private Health Insurance [id number] Unknown [id number] 2.16.840.1.324024.3.579. 2.531 Unknown Erika BEST/MOLINA [id number] Social History Date Type Detail Facility Start: 12-01-2022 End: 08-07-2024 Tobacco smoking status NHIS Never smoked tobacco [facility] Start: 08-24-2023 End: 10-14-2024 Alcoholic beverage intake Lifetime non-drinker (finding) [facility] Start: 12-01-2022 End: 02-12-2024 History of Social function [facility] Start: 12-01-2022 End: 02-12-2024 Tobacco use panel [facility] Start: 12-01-2022 Education 21 [facility] Start: 12-01-2022 Alcohol Comment Caffeine intake: non e [facility] Start: 1990 Sex assigned at Not on file [place] [facility] Start: 02-25-2024 [facility] Tobacco smoking stat us UTIS Unknown if ever smoked [facility] Work Phone: Start: 04-12-2024 End: 08-05-2024 Sex Female (finding) [facility] Start: 1990 Sex Assigned At Female F [facility] Start: 08-07-2024 Tobacco use and exposure Smokeless tobacco non-user [facility] Medical Equipment Procedure Code Equipment Code Equipment Origin al Text Equipment Identifier Dates 1 strip by In Vi tro route Daily Use in the morning prior to breakfast, 1 hour after each meal for a total of 4times daily. [id number] Start: 07-25-2024 End: 08-27-2024 1 each by In Vit ro route Daily Use to check FSBS four times daily [id number] Start: 07-25-2024 End: 08-27-2024 Clinical Notes 02-12-2024 to 10-21-2024 Daniela Candelaria, HZENG - 10/21/2024 2:00 PM Sagar Candelaria, ZHENG - 10/14/2024 2:30 PM BRAIN Schmidt - 09/30/2024 3:30 PM Tracey Marcial, ZEHNG - 09/17/2024 10:20 AM EDT Note Date & Type Note Facility 10-21-2024 History of Presen t illness Narrative Reason for Appointment: Patient ID: Ed Murphy is a 33 y.o. female who presents for Routine Visit Patient presents today for Return OB appointment. MEDICATIONS Current Outpatient Medications Medication Instructions Ivrfqhxd-Juu-Ae-FA ( 1 + IRON PO) valACYclovir (VALTREX) [...] Yeast infection 12/02/2022 31 weeks gestation of ([facility]) 09/17/2024 Third trimester ([facility]) 09/17/2024 Multigravida of advanced maternal age in third trimester ([facility]) 09/17/2024 Resolved Ambulatory Problems Diagnosis Date Noted Bleeding in early ([facility]) 12/02/2022 Past Medical History: Diagnosis Date Frequent UTI Herpes History of chlamydia 2008 History of depression 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 Personal history of other medical treatment ([facility]) [place] teeth removed HISTORY PAST MEDICAL HISTORY SOCIAL HISTORY Past Medical History: Diagnosis Date Bleeding in early ([facility]) 12/02/2022 Frequent UTI Herpes History of chlamydia 2008 History of depression no meds 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 Personal history of other medical treatment Frenectomy ([facility]) x2 [place] teeth removed Social History Tobacco Use Smoking [...] nursing note reviewed. Exam conducted with a patent agent present. Vitals: Estimated body mass index is 42.44 kg/m as calculated from the following: Height as of 08/22/22: 5' 8.5 . Weight as of this encounter: 283 lb 4 oz. BP: 110/72 Patient's last menstrual period was 02/11/2024. ASSESSMENT & PLAN ICD-10-CM 1. Third trimester ([facility] Z34.93 CULTURE, GROUP B STREP WITH SUSCEPTIBLITY CULTURE, GROUP B STREP WITH SUSCEPTIBLITY POCT urinalysis dipstick manually resulted 2. 36 weeks gestation of ([facility]) Z3A.36 3. Multigravida of advanced maternal age in third trimester ([facility]) O09.523 4. HSV infection B00.9 5. Excessive growth affecting management of , antepartum, single or unspecified fetus ([facility]) O36.60X0 Patient is doing well but has [...] Aquiles Campbell DO documented in this encounter [facility] 10-14-2024 History of Presen t illness Narrative Reason for Appointment: Patient ID: Ed Murphy is a 33 y.o. female who presents for Routine Visit Patient presents today for Return OB appointment. MEDICATIONS Current Outpatient Medications Medication Instructions Krtotymu-Knw-On-FA ( 1 + IRON PO) ALLERGIES Allergies Allergen Reactions Cefadroxil Hives Other Reaction(s): hives, Unknown Other Reaction(s): hives, rash Latex Itching Other Reaction(s): Itching Other Reaction(s): Hives Paroxetine Other Reaction(s): Unknown PROBLEMS Active Ambulatory Problems Diagnosis Date Noted Anovulation 12/02/2022 DUB (dysfunctional uterine bleeding) 12/02/2022 Menstrual disorder 12/02/2022 Missed menses 12/02/2022 Yeast infection 12/02/2022 31 weeks gestation of ([facility]) 09/17/2024 Third trimester ([facility]) 09/17/2024 Multigravida of advanced maternal age in third trimester ([facility]) 09/17/2024 Resolved Ambulatory Problems Diagnosis Date Noted Bleeding in early ([facility]) 12/02/2022 Past Medical History: Diagnosis Date Frequent UTI Herpes History of chlamydia 2008 History of depression 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 Personal history of other medical treatment ([facility]) [place] teeth removed HISTORY PAST MEDICAL HISTORY SOCIAL HISTORY Past Medical History: Diagnosis Date Bleeding in early ([facility]) 12/02/2022 Frequent UTI Herpes History of chlamydia 2007 History of depression no meds 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 Personal history of other medical treatment Frenectomy ([facility]) x2 [place] teeth removed Social History Tobacco Use Smoking [...] nursing note reviewed. Exam conducted with a patent agent present. Vitals: Estimated body mass index is 42.67 kg/m as calculated from the following: Height as of 08/22/22: 5' 8.5 . Weight as of this encounter: 284 lb 12.8 oz. BP: 110/70 Patient's last menstrual period was 02/11/2024. ASSESSMENT & PLAN ICD-10-CM 1. 35 weeks gestation of ([facility]) Z3A.35 POCT urinalysis dipstick manually resulted 2. Third trimester ([facility]) Z34.93 POCT urinalysis dipstick manually resulted 3. Multigravida of advanced maternal age in third trimester ([facility]) O09.523 4. Excessive growth affecting management of , antepartum, single or unspecified fetus ([facility]) O36.60X0 5. Low iron E61.1 Patient presents today for a routine obstetrics appointment. Patient is currently 35w1d with a Estimated Date of Delivery: 11/17/24. Patient aware that Valtrex will be sent to [facility] for history of HSV. Patient will return to clinic in 1 week for routine OB appointment and GBS will be obtained at that time. Documented by Daniela Candelaria LPN... on behalf of: Aquiles Campbell DO documented in this encounter [facility] 09-30-2024 History of Presen t illness Narrative [...] meal for a total of 4times daily. Qabrrqcn-Nxs-Tr-FA ( 1 + IRON PO) ALLERGIES Allergies Allergen Reactions Cefadroxil Hives Other Reaction(s): hives, Unknown Other Reaction(s): hives, rash Latex Itching Other Reaction(s): Itching Other Reaction(s): Hives Paroxetine Other Reaction(s): Unknown PROBLEMS Active Ambulatory Problems Diagnosis Date Noted Anovulation 12/02/2022 DUB (dysfunctional uterine bleeding) 12/02/2022 Menstrual disorder 12/02/2022 Missed menses 12/02/2022 Yeast infection 12/02/2022 31 weeks gestation of ([facility]) 09/17/2024 Third trimester ([facility]) 09/17/2024 Multigravida of advanced maternal age in third trimester ([facility]) 09/17/2024 Resolved Ambulatory Problems Diagnosis Date Noted Bleeding in early ([facility]) 12/02/2022 Past Medical History: Diagnosis Date Frequent UTI Herpes History of chlamydia 2008 History of depression 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 Personal history of other medical treatment ([facility]) [place] teeth removed HISTORY PAST MEDICAL HISTORY SOCIAL HISTORY Past Medical History: Diagnosis Date Bleeding in early ([facility]) 12/02/2022 Frequent UTI Herpes History of chlamydia 2008 History of depression no meds 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 Personal history of other medical treatment Frenectomy ([facility]) x2 [place] teeth removed Social History Tobacco Use Smoking [...] ASSESSMENT & PLAN ICD-10-CM 1. Third trimester ([facility]) Z34.93 POCT urinalysis dipstick manually resulted 2. 33 weeks gestation of ([facility]) Z3A.33 Return OB: Patient presents today for [...] of: BRAIN Martinez documented in this encounter [facility] 09-17-2024 History of Presen t illness Narrative [...] iron polysaccharides (PROFE) 391.3 mg, Oral, Daily Gfjuxugt-Myr-Gy-FA ( 1 + IRON PO) ALLERGIES Allergies [...] 2011 Personal history of other medical treatment [place] teeth removed HISTORY PAST MEDICAL HISTORY SOCIAL HISTORY Past Medical History: Diagnosis Date Bleeding in early 12/02/2022 Frequent UTI Herpes History of chlamydia 2008 History of depression no meds 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 Personal history of other medical treatment Frenectomy x2 [place] teeth removed Social History Tobacco Use Smoking [...] nursing note reviewed. Exam conducted with a patent agent present. Vitals: Estimated body mass index is [...] Aquiles Campbell DO documented in this encounter [facility] 08-27-2024 History of Presen t illness Narrative Reason for Appointment: Patient ID: Ed Murphy is a 33 y.o. female who presents for Routine Visit Patient presents today for Return OB appointment. MEDICATIONS Current Outpatient Medications Medication Instructions Alcohol Swabs (Alcohol Prep Pad) 70 % pads 1 Pad, Topical, Daily, Use four times daily to check FSBS. Blood Glucose Monitoring Suppl (D-Loco2 Glucometer) w/Device kit 1 kit, Does not [...] Use to check FSBS four times daily Yikojjxg-Nlh-Su-FA ( 1 + IRON PO) ALLERGIES Allergies [...] 2010 Personal history of other medical treatment [place] teeth removed HISTORY PAST MEDICAL HISTORY SOCIAL HISTORY Past Medical History: Diagnosis Date Bleeding in early 12/02/2022 Frequent UTI Herpes History of chlamydia 2008 History of depression no meds 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 Personal history of other medical treatment Frenectomy x2 [place] teeth removed Social History Tobacco Use Smoking [...] day. Patient going on a trip to [facility], she will return at 31 weeks. Patient [...] of: BRAIN Martinez documented in this encounter [facility] 08-01-2024 History of Presen t illness Narrative [...] Use to check FSBS four times daily Cwfeirvf-Cry-Oe-FA ( 1 + IRON PO) ALLERGIES Allergies [...] 2010 Personal history of other medical treatment [place] teeth removed HISTORY PAST MEDICAL HISTORY SOCIAL HISTORY Past Medical History: Diagnosis Date Bleeding in early 12/02/2022 Frequent UTI Herpes History of chlamydia 2007 History of depression no meds 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 Personal history of other medical treatment Frenectomy x2 [place] teeth removed Social History Tobacco Use Smoking [...] nursing note reviewed. Exam conducted with a patent agent present. Vitals: Estimated body mass index is [...] not cleared. Patient will be referred to [facility] for Level II Scan and consult if needed. Discussed patient upcoming vacation and precautions given. Patient will have growth scan start at 28 weeks gestation. Patient to return to clinic in 4 weeks. Patient to drop off FSBS results for routine in the meantime. Documented by Daniela Candelaria LPN on behalf of: Aquiles Campbell DO documented in this encounter [facility] 06-03-2024 History of Presen t illness Narrative Reason for Appointment: Patient ID: Ed Murphy is a 33 y.o. female who presents for Routine Visit Patient presents today for Return OB appointment. MEDICATIONS Current Outpatient Medications Medication Instructions Hbmxgudj-Zmt-Ot-FA ( 1 + IRON PO) Progesterone 200 [...] 2010 Personal history of other medical treatment [place] teeth removed HISTORY PAST MEDICAL HISTORY SOCIAL HISTORY Past Medical History: Diagnosis Date Bleeding in early 12/02/2022 Frequent UTI Herpes History of chlamydia 2007 History of depression no meds 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 Personal history of other medical treatment Frenectomy x2 [place] teeth removed Social History Tobacco Use Smoking [...] nursing note reviewed. Exam conducted with a patent agent present. Vitals: Estimated body mass index is [...] off on referral at this time. Discussed Sturgeon testing if patient desires to check for genetic testing and patient declines at this time as well. Obtained vaginal cultures without issue & patient to return to clinic in 4 weeks for routine OB appointment. Documented by Daniela Candelaria LPN on behalf of: Aquiles Campbell DO documented in this encounter [facility] 05-02-2024 History of Presen t illness Narrative Reason for Appointment: Patient ID: Ed Murphy is a 33 y.o. female who presents for Routine Visit Patient presents today for Return OB appointment. 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 female who presents for Well Women Visit Patient presents today for Annual Exam. MEDICATIONS Current Outpatient Medications Medication Instructions co-enzyme Q-10 30 mg, Oral, Daily guaiFENesin (MUCINEX) 1,200 mg, Oral, 2 times daily, Do not crush, chew, or split. 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 Exam conducted with a patent agent present. Vitals: Estimated body mass index is [...] of: BRAIN Martinez documented in this encounter [facility] 02-12-2024 History of Presen t illness Narrative Reason for Appointment: Patient ID: Ed Murphy is a 33 y.o. female who presents for Infertility (Pt present today to discuss infertility) Patient presents today for Consult appointment. 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 Exam conducted with a patent agent present. Vitals: Estimated body mass index is [...] Aquiles Campbell DO documented in this encounter [facility] Evaluation note Diagnosis Anovulation Female infertility associated with anovulation [facility]* Diagnosis Well woman exam with routine gynecological exam Routine gynecological examination documented [facility] this encounter [facility] noteNo assessment information [facility] Work Phone: Evaluation note* [...] of complication documented in this encounter [facility]* Diagnosis Third trimester ([facility]) state, incidental 36 weeks gestation of ([facility]) Multigravida of advanced maternal age in third trimester ([facility]) HSV infection Herpes simplex without mention of complication Excessive growth affecting management of , antepartum, single or unspecified fetus ([facility]) documented in this encounter [facility] HealthcareInstructionsNot on filedocumented in [facility] Purpose Family History No [...] and content) DATE CREATED AUTHOR 07/05/2021 [facility] DATE CREATED AUTHOR AUTHOR'S ORGANIZ ATION 08/23/2022 [facility] DATE CREATED AUTHOR AUTHOR'S ORGANIZ ATION 04/19/2024 [facility] DATE CREATED AUTHOR AUTHOR'S ORGANIZ ATION 08/13/2024 [facility] DATE CREATED AUTHOR AUTHOR'S ORGANIZ ATION 10/25/[address] [facility] EPIC Reason for [...] BE BASED ON THE PRIMARY CLINICAL RECORDS. [facility]. provides no warranty or guarantee of the accuracy or completeness of information in this document.
[2024-10-25 08:14] VITALS: BP 101/59; PULSE 95
== END 2024-10-25 08:50 | disposition home or self-care (01) ==
LOC: FBCO 08:00 → FBC 08:03
PROVIDERS: Visit Provider Obstetrics & Gynecology
DX: O09.519 Supervision of elderly primigravida, unspecified trimester (principal)
CPT/HCPCS: 59025

== ENCOUNTER 2024-10-29 09:01 | Outpatient (OUT) | payer BC, SELFPAY ==
--- OUTSIDE RECORDS SUMMARY | 2024-10-21 14:00 | XMS_ITS | Encounter Summary ---
Author Organization [facility] Address [address] [place] [address] Care Team Providers Care Manager Highway Name Role Phone Unavailable Primary Care Provider Unavailabl e Reason for Visit * Reason Comments Routine Visit Encounter Details Date Type Department Care Team (Late st Contact Info) Description 10/21/2024 2:00 PM EDT Routine [facility] [address] [place] [id number] Theodore Campbell, DO [address] [facility] [address] [place], [id number] Third trimester ([facility]); 36 weeks gestation of ([facility]); Multigravida of advanced maternal age in third trimester ([facility]); HSV infection; Excessive growth affecting management of , antepartum, single or unspecified fetus ([facility]) Social History Tobacco Use Types Packs/Day [...] Start Date Job End Date Works at [employer] Not on file Not on file Not [...] appointment. MEDICATIONS Current Outpatient Medications Medication Instructions Gclofcig-Mlu-Yr-FA ( 1 + IRON PO) valACYclovir (VALTREX) [...] Yeast infection 12/02/2022 31 weeks gestation of ([facility]) 09/17/2024 Third trimester ([facility]) 09/17/2024 Multigravida of advanced maternal age in third trimester ([facility]) 09/17/2024 Resolved Ambulatory Problems Diagnosis Date Noted Bleeding in early ([facility]) 12/02/2022 Past Medical History: Diagnosis Date Frequent UTI Herpes History of chlamydia 2008 History of depression 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 Personal history of other medical treatment ([facility]) [place] teeth removed HISTORY PAST MEDICAL HISTORY SOCIAL HISTORY Past Medical History: Diagnosis Date Bleeding in early ([facility]) 12/02/2022 Frequent UTI Herpes History of chlamydia 2007 History of depression no meds 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 Personal history of other medical treatment Frenectomy ([facility]) x2 [place] teeth removed Social History Tobacco Use Smoking [...] nursing note reviewed. Exam conducted with a activity aid present. Vitals: Estimated body mass index is 42.44 kg/m?? as calculated from the following: Height as of 08/22/22: 5' 8.5 . Weight as of this encounter: 283 lb 4 oz. BP: 110/72 Patient's last menstrual period was 02/11/2024. ASSESSMENT & PLAN ICD-10-CM 1. Third trimester ([facility]) Z34.93 CULTURE, GROUP B STREP WITH SUSCEPTIBLITY CULTURE, GROUP B STREP WITH SUSCEPTIBLITY POCT urinalysis dipstick manually resulted 2. 36 weeks gestation of ([facility]) Z3A.36 3. Multigravida of advanced maternal age in third trimester ([facility]) O09.523 4. HSV infection B00.9 5. Excessive growth affecting management of , antepartum, single or unspecified fetus ([facility]) O36.60X0 Patient is doing well but [...] AM EDT Routine [facility] [address] [place] [id number] Theodore Campbell DO [address] [place] [address] Scheduled Orders Name Type Priority Associated Diagnoses Orde r Schedule CULTURE, GROUP B STREP WITH SUSCEPTIBLITY Lab Routine Third trimester ([facility]) Expected: 10/21/2024, Expires: 10/21/2025 documented as of this encounter Procedures Procedure Name Priority Date/Time Associated Diagnosis Comments POCT URINALYSIS DIPSTICK Routine 10/21/2024 2:22 PM EDT Third trimester ([facility]) documented in this encounter Results * [...] Positive Urine 10/21/2024 2:22 PM EDT Result [facility] Theodore Campbell DO POINT OF CARE TEST ENTER/EDIT OR DERABLES Final Result documented in this encounter Visit Diagnoses Diagnosis Third trimester ([facility]) state, incidental 36 weeks gestation of ([facility]) Multigravida of advanced maternal age in third trimester ([facility]) HSV infection Herpes simplex without mention of complication Excessive growth affecting management of , antepartum, single or unspecified fetus ([facility]) documented in this encounter
--- OUTSIDE RECORDS SUMMARY | 2024-10-28 11:20 | XMS_ITS | Encounter Summary ---
Author Organization [facility] Address [address] [place] [address] Care Team Providers Care Activity Coordinator Name Role Phone Unavailable Primary Care Provider Unavailabl e Reason for Visit * Reason Comments Routine Visit Encounter Details Date Type Department Care Team (Late st Contact Info) Description 10/28/2024 11:20 AM EDT Routine [facility] [address] [place] [id number] Theodore Campbell, DO [address] [facility] [address] Aisha [place], [facility]11 Third trimester ([facility]); 37 weeks gestation of ([facility]) Social History Tobacco Use Types Packs/Day Years [...] Start Date Job End Date Works at [employer] Not on file Not on file Not on file documented as of this encounter Last Filed Vital Signs Vital Sign Reading Time Taken Comments Blood Pressure 108/70 10/28/2024 11:25 AM EDT Pulse - - Temperature - - Respiratory Rate - - Oxygen Saturation - - Inhaled Oxygen Concentration - - Weight 129 kg (284 lb 6.4 oz) 10/28/2024 11:25 A M EDT Height - - Body Mass Index 42.61 08/22/2022 12:00 PM EDT documented in this encounter Plan of Treatment Upcoming Encounters Date Type Department Care Team (Late st Contact Info) Description 11/04/2024 9:30 AM EDT Routine [facility] [address] [place] [address] Theodore Campbell, DO [address] [place] [address] [place] [address] documented as of this encounter Procedures Procedure Name Priority Date/Time Associated Diagnosis Comments POCT URINALYSIS DIPSTICK Routine 10/28/2024 11:43 AM EDT Third trimester ([facility]) 37 weeks gestation of ([facility]) documented in this encounter Results * POCT urinalysis dipstick manually resulted (10/28/2024 11:43 AM EDT) Color, UA Yellow Clarity, UA Clear Glucose, UA Negative Negative - 2000(110) ++++ mg/dL Bilirubin, UA Negative Negative - 4(70) +++ mg/dL Ketones, UA Negative Negative - 160(16) ++++ mg/dL Spec Grav, UA 1.020 1 - 1.03 Blood, UA Negative Negative - 50 Alex/mcL pH, UA 5.5 5 - 9 Protein, UA Negative Negative - 2000(20) ++++ mg/dL Urobilinogen, UA 1.0 0.2 - 12 mg/dL Leukocytes, UA Negative Negative - 500+++ Jodi/mcL Nitrite, UA Negative Negative - Positive Urine 10/28/2024 11:4 3 AM EDT Theodore Campbell DO POINT OF CARE TEST ENTER/EDIT OR DERABLES Final Result documented in this encounter Visit Diagnoses Diagnosis Third trimester ([facility]) state, incidental 37 weeks gestation of ([facility]) documented in this encounter
--- OUTSIDE RECORDS SUMMARY | 2024-10-29 09:02 | XMS_ITS | Encounter Summary ---
Author Organization [facility] Address [address] [facility] [place] [address] Care Team Providers Care Pipe Installer Name Role Phone Unavailable Primary Care Provider Unavailabl e Encounter Details Date Type Department Care Team (Late st Contact Info) Description 04/15/2024 Abstract [facility] [address] [place] [phone] Theodore Campbell [address] [place], [facility] Social History Tobacco Use Types Packs/Day [...] Start Date Job End Date Works at [employer] Not on file Not on file Not on file documented as of this encounter Plan of Treatment Upcoming Encounters Date Type Department Care Team (Late st Contact Info) Description 11/04/2024 9:30 AM EDT Routine [facility] [address] [place] [address] Theodore Campbell, [address] [place], [place] [id number] documented as of this encounter Visit Diagnoses Not on filedocumented in this encounter
--- OUTSIDE RECORDS SUMMARY | 2024-10-29 09:02 | XMS_ITS | Encounter Summary ---
Author Organization [facility] tem Address [id number] [address] [place] [address] Care Team Providers Care Lift Truck Mechanic Name Role Phone Unavailable Primary Care Provider Unavailabl e Encounter Details Date Type Department Care Team (Late st Contact Info) Description 08/07/2024 Orders Only Maternal- Medicine at [facility] [address] [facility] [place] [phone] Ref Prov, [place] [address] Social History Tobacco Use Types Packs/Day Years [...]
--- OUTSIDE RECORDS SUMMARY | 2024-10-29 09:02 | XMS_ITS | Clinical Summary ---
Author Organization [facility] Address [address] [place] [address] Care Team Providers Care Crown Attacher Name Role Phone Unavailable Primary Care Provider Unavailabl e Allergies Active Allergy Reactions Criticality Noted Date Comments Cefadroxil Hives 12/02/2022 Other Reaction(s): hives, Unknown Other Reaction(s): hives, rash Latex Itching 12/02/2022 Other Reaction(s): Itching Other Reaction(s): Hives Paroxetine 12/02/2022 Other Reaction(s): Unknown Medications Dbhmbhyz-Cbp-Or -FA ( 1 + IRON PO) Active valACYclovir (Valtrex) 500 MG tabletIndicatio ns:HSV infection Take 1 tablet (500 mg) by mouth Daily 30 tablet 5 10/15/19 25 025 Active Alcohol Swabs (Alcohol Prep Pad) 70 % padsIndications :Gestational diabetes mellitus (GDM), antepartum, gestational diabetes method of control unspecified ([facility]),Dixon keron glucose tolerance test Apply 1 Pad topically Daily Use four times daily to check FSBS. 150 each 3 07/26/19 25 025 Discontinued Blood Glucose Monitoring Suppl (D-Care Glucometer) w/Device kitIndications: Gestational diabetes mellitus (GDM), antepartum, gestational diabetes method of control unspecified ([facility]),[place] keron glucose tolerance test 1 kit Daily Use four times daily to check FSBS. In the morning prior to breakfast & 1 hour after each meal for a total of 4times daily. 1 kit 07/26/19 025 Discontinued Active Problems Problem Noted Date Diagnosed Date 31 weeks gestation of ([facility]) 2024 Third trimester ([facility]) 09/17/2024 Multigravida of advanced mat ernal age in third trimester ([facility]) 09/17/2024 Anovulation 12/02/2022 DUB (dysfunctional uterine bleeding) 12/02/2022 Menstrual disorder 12/02/2022 Missed menses 12/02/2022 Yeast infection 12/02/2022 Estimated Date of Delivery Comme nts Yes 11/17/2024 Based on last me nstrual period of 02/11/2024 Resolved Problems Problem Noted Date Diagnosed Date Resolved Date Bleeding in early ([facility]) 12/02/2022 12/02/2022 Encounters Date Type Department Care Team Description 10/28/2024 11:20 AM EDT Routine [facility] [address] [place] [address] Aquiles Campbell DO Third trimester ([facility]); 37 weeks gestation of ([facility]) 10/28/2024 Bamboo flowsheet [facility] [address] [place] [address] Aquiles Campbell DO 10/22/2024 Clinisync Result Encounter NOMS External Department Unsolicited Aquiles Campbell DO 10/21/2024 2:00 PM EDT Routine [facility] [address] [place] [address] Aquiles Campbell DO Third trimester ([facility]); 36 weeks gestation of ([facility]); Multigravida of advanced maternal age in third trimester ([facility]); HSV infection; Excessive growth affecting management of , antepartum, single or unspecified fetus ([facility]) 10/21/2024 Bamboo flowsheet [facility] [address] [place] [address] Aquiles Campbell DO 10/16/2024 Abstract [facility] [address] [place] [address] Shnana Bailon MA 10/16/2024 Clinisync Result Encounter NOMS External Department Unsolicited Aquiles Campbell, DO 10/14/2024 2:30 PM EDT Routine [facility] [address] [place] [address] Aquiles Campbell, DO 35 weeks gestation [facility] 10/14/2024 2:00 PM EDT Ancillary Procedure [facility] [address] [place] [address] Multigravida of advanced maternal age in third trimester ([facility]); H/O miscarriage, currently ([facility]) 10/14/2024 Abstract [facility] [address] [place] [address] Aquiles Campbell, DO 10/14/2024 Travel 10/09/2024 Clinisync Result Encounter [facility]S External Department Unsolicited Aquiles Campbell, DO 10/02/2024 Clinisync Result Encounter NOMS External Department Unsolicited qAuiles Campbell, DO 09/30/2024 3:30 PM EDT Routine [facility] [address] [place] [address] Flower Joyce PA Third trimester ([facility]); 33 weeks gestation of ([facility]) 09/30/2024 Bamboo flowsheet [facility] [address] [place] [address] Flower Joyce PA 09/26/2024 Travel 09/25/2024 Clinisync Result Encounter NOMS External Department Unsolicited Aquiles Campbell, DO 09/23/2024 Abstract [facility] [address] [place] [address] Aquiles Campbell DO 09/17/2024 10:20 AM EDT Routine [facility] [address] [place] [address] Aquiles Campbell, 31 weeks gestation of ([facility]); Third trimester ([facility]); Multigravida of advanced maternal age in third trimester ([facility]); Excessive growth affecting management of , antepartum, single or unspecified fetus ([facility]) 09/17/2024 9:30 AM EDT Ancillary Procedure [facility] [address] [place] [address] Size of fetus inconsistent with dates in second trimester ([facility]) 09/16/2024 Travel 09/14/2024 Travel 08/28/[address] [place] [address] Vicki Aguirre LPN 08/27/2024 8:50 AM EDT Routine [facility] [address] [place] [address] Flower Joyce PA Size of fetus inconsistent with dates in second trimester ([facility]) (Primary Dx); Third trimester ([facility]); 28 weeks gestation of ([facility]) 08/27/2024 Clinisync Result Encounter NOMS External Department Unsolicited Flower Joyce PA 08/27/2024 Bamboo flowsheet [facility] [address] [place] [address] Flower Joyce PA 08/26/2024 Travel 08/20/2024 Abstract [facility] [address] [place] [address] Shanna Bailon MA 08/01/2024 9:10 AM EDT Routine [facility] [address] [place] [address] Adrian, Aquiles, DO Second trimester ([facility]); 24 weeks gestation of ([facility]); Multigravida of advanced maternal age in second trimester ([facility]) 08/01/2024 8:30 AM EDT Ancillary Procedure [facility] OB [address] [facility] [place] [address] Encounter for follow-up ultrasound of anatomy ([facility]) 08/01/2024 Telephone [facility] [address] [place] [address] Daniela Candelaria LPN 07/31/2024 Travel from [...] Start Date Job End Date Works at [employer] Not on file Not on file Not on file Last Filed Vital Signs Vital Sign Reading Time Taken Comments Blood Pressure 108/70 10/28/2024 11:25 AM EDT Pulse - - Temperature - - Respiratory Rate - - Oxygen Saturation - - Inhaled Oxygen Concentration - - Weight 129 kg (284 lb 6.4 oz) 10/28/2024 11:25 A M EDT Height 174 cm (5' 8.5 ) 08/22/2022 12:00 PM EDT Body Mass Index 42.61 08/22/2022 12:00 PM EDT Plan of Treatment Upcoming Encounters Date Type Department Care Team (Late st Contact Info) Description 11/04/2024 9:30 AM EDT Routine [facility] OB [address] [facility] [place] [address] Aquiles Campbell, DO [address] [facility] [place] [address] Procedures Procedure Name Priority Date/Time Associated Diagnosis Comments POCT URINALYSIS DIPSTICK Routine 10/28/2024 11:43 AM EDT Third trimester ([facility]) 37 weeks gestation of ([facility]) US OB BPP W NON-STRESS 10/22/2024 10:04 AM EDT POCT URINALYSIS DIPSTICK Routine 10/21/2024 2:22 PM EDT Third trimester ([facility]) US OB BPP W NON-STRESS 10/16/2024 7:15 AM EDT POCT URINALYSIS DIPSTICK Routine 10/14/2024 3:18 PM EDT 35 weeks gestation of ([facility]) Third trimester ([facility]) US OB FOLLOW UP TRANSABDOMINAL APPROACH Routine 10/14/2024 2:25 PM EDT Multigravida of advanced maternal age in third trimester ([facility]) H/O miscarriage, currently ([facility]) US OB BPP W NON-STRESS 10/09/2024 7:52 AM EDT US OB BPP W NON-STRESS 10/02/2024 8:07 AM EDT POCT URINALYSIS DIPSTICK Routine 09/30/2024 3:51 PM EDT Third trimester ([facility]) US OB BPP W NON-STRESS 09/25/2024 7:58 AM EDT POCT URINALYSIS DIPSTICK Routine 09/17/2024 10:37 AM EDT 31 weeks gestation of ([facility]) Third trimester ([facility]) Multigravida of advanced maternal age in third trimester ([facility]) US OB FOLLOW UP TRANSABDOMINAL APPROACH Routine 09/17/2024 9:58 AM EDT Size of fetus inconsistent with dates in second trimester ([facility]) ALL CBC WITH AUTO DIFF Routine 10:10 AM EDT MLR HEMOGLOBIN A1C Routine 08/27/2024 10 :10 AM EDT POCT URINALYSIS DIPSTICK Routine 08/27/2024 9:26 AM EDT Third trimester ([facility]) 28 weeks gestation of ([facility]) US OB LIMITED 1+ FETUSES Routine 08/01/2024 9:02 AM EDT Encounter for follow-up ultrasound of anatomy ([facility]) from Last 3 Months Results * POCT urinalysis dipstick manually resulted (10/28/2024 11:43 AM EDT) Only the most recent of6 resultswithin the time period is included. Color, [...] Positive Urine 10/28/2024 11:4 3 AM EDT us Aquiles Campbell DO POINT OF CARE TEST ENTER/EDIT OR DERABLES Final Result * US OB BPP W NON-STRESS (10/22/2024 10:04 AM EDT) Only the most recent of5 resultswithin the time period is included. Anatomical Region Laterality Modality Other 10/22/2024 10:0 4 AM EDT Narrative 10/22/2024 10:07 [place] [address] Ultrasound Report Signed Patient: ED SILVA MR#: [id number] : 1990 Acct:[id number] Age/Sex: 33 / F ADM Date: 10/22/24 Loc: [facility] 254-[address]: Aquiles Campbell D.O. Ordering Physician: Aquiles Campbell D.O. Date of Service: 10/22/24 Procedure(s): US OB BPP w non-stress Accession Number(s): [id number] cc: Aquiles Campbell D.O.; Physician,Non-Staff M.DAp [address] [address] Patient Name: ED SILVA MRN: [facility]:[id number] date: 1990 Sex: F Assigned Patient Location: [facility] Current Patient Location: [facility] Accession/Order Number: [id number] Exam Date: 10/22/2024 10:02 Report Date: 10/22/2024 [...] Torre M.D. 10/22/2024 10:04 AM Dictation Location: [place] [address] Electronically authenticated by: [id number] Y Date: 10/22/2024 10:04 Dictated By: Alexus De La Torre M.D. Signed By: 10/22/24 1007 DD/ 1004 TD/TT: Business Manager College Or University: Procedure Note Radiology, Radiologist, MD - 10/22/2024 [place] [address] Ultrasound Report Signed Patient: ED SILVA LMR#: [id number] : 1990Acct:[id number] Age/Sex: 33 / FADM Date: 10/22/24 Loc: [facility] 254-[address]: Aquiles Campbell D.O. Ordering Physician: Aquiles Campbell D.O. Date of Service: 10/22/24 Procedure(s): US OB BPP w non-stress Accession Number(s): [id number] cc: Aquiles Campbell D.O.; Physician,Non-Staff Hussein The [place] [address] Patient Name: ED SILVA MRN: [facility]:[id number] date: 1990 Sex: F Assigned Patient Location: [facility] Current Patient Location: [facility] Accession/Order Number: [id number] Exam Date: 10/22/2024 10:02 Report Date: 10/22/2024 [...] Torre M.D. 10/22/2024 10:04 AM Dictation Location: [place] [address] Electronically authenticated by: [id number] Y Date: 0:04 Dictated By: Alexus De La Torre M.D. Signed By:10/22/24 1007 DD/ 1004 TD/TT: Business Manager College Or University: us Aquiles Campbell DO [facility] Final Result * US OB follow up [...] MLR HEMOGLOBIN A1C (08/27/2024 10:10 AM EDT) [facility] GLYCOHEMOGLOBIN A1C 5.6 4.5 - 6.2 % TB Comment: ADA RECOMMENDED LIMIT 4.0 - 6.0 ADA THERAPEUTIC TARGET < 7.0 ACTION SUGGESTED > 7.0 ESTIMATED AVERAGE GLUCOSE 114 mg/dL [facility] 08/27/2024 10:1 0 AM EDT 08/27/2024 10:21 AM EDT Narrative [facility] - 08/27/2024 10:36 AM EDT us Flower DE LA PAZ [facility] Final Result [facility] * (ABNORMAL) ALL CBC WITH AUTO DIFF (08/27/2024 10:10 AM EDT) [facility] TB WBC 10.0 4.0 - 11.0 10 3/uL TBH TBH RBC 3.63(L) 4.20 - 5.40 10 6/uL TBH TBH HGB 11.0(L) 12.0 - 16.0 g/dL TBH TB HCT 32.9(L) 36.0 - 48.0 % TBH TB MCV 90.6 81.0 - 99.0 fL TBH TB MCH 30.3 26.7 - 34.0 pg TBH TBH MCHC 33.4 29.9 - 35.2 g/dL TB [facility] RDW 13.9 11.0 - 15.0 % [...] 10:44 AM EDT Flower VITALE Final Result [facility] * US OB limited 1+ fetuses (08/01/2024 [...] II, MD, PHD at 01-Aug-2024 11:20:36 PM [facility] Procedure Note Meghann Knight MD - [...] signed by MEGHANN KNIGHT II, MD, PHD [id number] 11:20:36 PM [facility] us Aquiles Adrian DO IMG OB US PROCEDURES Final Resul t from Last 3 Months Insurance [facility]
--- OUTSIDE RECORDS SUMMARY | 2024-10-29 09:03 | XMS_ITS | Encounter Summary ---
Author Organization [facility] Address [address] [facility] [place] [address] Care Team Providers Care Muff Winder Name Role Phone Unavailable Primary Care Provider Unavailabl e Encounter Details Date Type Department Care Team (Late st Contact Info) Description 07/25/2024 Abstract [facility] OB [address] [place] [address] Theodore Campbell, [address] [place], [facility]11 Social History Tobacco Use Types Packs/Day [...] Start Date Job End Date Works at [employer] Not on file Not on file Not on file documented as of this encounter Plan of Treatment Upcoming Encounters Date Type Department Care Team (Late st Contact Info) Description 11/04/2024 9:30 AM EDT Routine [facility] OB [address] [address] Theodore Campbell, [address] Aisha [place], [place] [address] documented as of this encounter Visit Diagnoses Not on filedocumented in this encounter
--- OUTSIDE RECORDS SUMMARY | 2024-10-29 09:03 | XMS_ITS | Encounter Summary ---
Author Organization [facility] Address [address] [place] [address] Care Team Providers Care Embossed Or Impressed Lettering Painter Name Role Phone Unavailable Primary Care Provider Unavailabl e Encounter Details Date Type Department Care Team (Late st Contact Info) Description 10/16/2024 Abstract [facility] OB [address] [place] [address] Shanna Bailon MA Social History Tobacco [...] Start Date Job End Date Works at [employer] Not on file Not on file Not on file documented as of this encounter Plan of Treatment Upcoming Encounters Date Type Department Care Team (Late st Contact Info) Description 11/04/2024 9:30 AM EDT Routine [facility] [address] [place] [address] Theodore Campbell, DO [address] [place] [address] documented as of this encounter Visit Diagnoses Not on filedocumented in this encounter
--- OUTSIDE RECORDS SUMMARY | 2024-10-29 09:03 | XMS_ITS | Encounter Summary ---
Author Organization [facility] Address [address] [place] [address] Care Team Providers Care Research Lab Assistant Name Role Phone Unavailable Primary Care Provider Unavailabl e Encounter Details Date Type Department Care Team (Late st Contact Info) Description 10/22/2024 Clinisync Result Encounter [facility] External Department Unsolicited Aquiles Campbell DO [address] [place] [address] Social History Tobacco Use Types Packs/Day Years [...] Start Date Job End Date Works at [employer] Not on file Not on file Not on file documented as of this encounter Plan of Treatment Upcoming Encounters Date Type Department Care Team (Late st Contact Info) Description 11/04/2024 9:30 AM EDT Routine [facility] OB [address] [place] [address] Aquiles Campbell DO [address] [place] [address] documented as of this encounter Procedures Procedure Name Priority Date/Time Associated Diagnosis Comments US OB BPP W NON-STRESS 10/22/2024 10:04 AM EDT documented in this encounter Results * US OB BPP W NON-STRESS (10/22/2024 10:04 AM EDT) Anatomical Region Laterality Modality Other 10/22/2024 10:0 4 AM EDT Narrative 10/22/2024 10:07 [place] [address] Ultrasound Report Signed Patient: ED SILVA MR#: [id number] : 1990 Acct:[id number] Age/Sex: 33 / F ADM Date: 10/22/24 Loc: [facility] 254-[address]: Aquiles Campbell D.O. Ordering Physician: Aquiles Campbell D.O. Date of Service: 10/22/24 Procedure(s): US OB BPP w non-stress Accession Number(s): [id number] cc: Aquiles Campbell D.O.; Physician,Non-Staff Hussein [address] [address] Patient Name: ED SILVA MRN: [facility]:[id number] date: 1990 Sex: F Assigned Patient Location: [facility] Current Patient Location: [facility] Accession/Order Number: [id number] Exam Date: 10/22/2024 10:02 Report Date: 10/22/2024 [...] Torre M.D. 10/22/2024 10:04 AM Dictation Location: [place] [address] Electronically authenticated by: [id number] Y Date: 10/22/2024 10:04 Dictated By: Alexus De La Torre M.D. Signed By: 10/22/24 1007 DD/ 1004 TD/TT: Wool Hat Sanding Machine Operator: Procedure Note Radiology, Radiologist, MD - 10/22/2024 [place] [address] Ultrasound Report Signed Patient: ED SILVA R#: [id number] : 1990Acct:[id number] Age/Sex: 33 / FADM Date: 10/22/24 Loc: [facility] 254-[address]: Aquiles Campbell D.O. Ordering Physician: Aquiles Campbell D.O. Date of Service: 10/22/24 Procedure(s): US OB BPP w non-stress Accession Number(s): [id number] cc: Aquiles Campbell D.O.; Physician,Non-Staff Hussein The [address] [address] Patient Name: ED SILVA MRN: [facility]:[id number] date: 1990 Sex: F Assigned Patient Location: [facility] Current Patient Location: [facility] Accession/Order Number: [id number] Exam Date: 10/22/2024 10:02 Report Date: 10/22/2024 [...] IMPRESSION: NORMAL BIOPHYSICAL PROFILE Impression dictated by: lAexus De La Torre M.D. 10/22/2024 10:04 AM Dictation Location: [place] [address] Electronically authenticated by: [id number] Y Date: 0:04 Dictated By: Alexus De La Torre M.D. Signed By:10/22/24 1007 DD/ 1004 TD/TT: Wool Hat Sanding Machine Operator: Aquiles Campbell DO [facility] Final Result documented in this encounter Visit Diagnoses Not on filedocumented in this encounter
--- OUTSIDE RECORDS SUMMARY | 2024-10-29 09:03 | XMS_ITS | Encounter Summary ---
Author Organization [facility] Address [address] [place] [address] Care Team Providers Care Machinist Linotype Name Role Phone Unavailable Primary Care Provider Unavailabl e Encounter Details Date Type Department Care Team (Late st Contact Info) Description 10/28/2024 Bamboo flowsheet [facility] OB [address] [place] [address] Theodore Campbell [address] [place], [facility]11 Social History Tobacco Use Types Packs/Day [...] Start Date Job End Date Works at [email or web address] Not on file Not on file Not on file documented as of this encounter Plan of Treatment Upcoming Encounters Date Type Department Care Team (Late st Contact Info) Description 11/04/2024 9:30 AM EDT Routine [facility] OB [address] [place] [address] Theodore Campbell, [address] [place] [address] documented as of this encounter Visit Diagnoses Not on filedocumented in this encounter
--- OUTSIDE RECORDS SUMMARY | 2024-10-29 09:03 | XMS_ITS | Encounter Summary ---
Author Organization [facility] Address [address] [place] [address] Care Team Providers Care Echo Tech Name Role Phone Unavailable Primary Care Provider Unavailabl e Encounter Details Date Type Department Care Team (Late st Contact Info) Description 10/21/2024 Bamboo flowsheet [facility] OB [address] [place] [address] Theodore Campbell [address] [place], [facility] [...] Start Date Job End Date Works at [employer] Not on file Not on file Not on file documented as of this encounter Plan of Treatment Upcoming Encounters Date Type Department Care Team (Late st Contact Info) Description 11/04/2024 9:30 AM EDT Routine [facility] OB [address] [place] [address] Theodore Campbell, [address] [place] [address] documented as of this encounter Visit Diagnoses Not on filedocumented in this encounter
--- OUTSIDE RECORDS SUMMARY | 2024-10-29 09:03 | XMS_ITS | Encounter Summary ---
Author Organization [facility] Address [address] [facility] [place] [address] Care Team Providers Care Solidworks Designer Name Role Phone Unavailable Primary Care Provider Unavailabl e Encounter Details Date Type Department Care Team (Late st Contact Info) Description 09/23/2024 Abstract [facility] OB [address] [place] [address] Theodore Campbell [address] [place], [facility]11 Social History Tobacco Use Types [...] Start Date Job End Date Works at [employer] Not on file Not on file Not on file documented as of this encounter Plan of Treatment Upcoming Encounters Date Type Department Care Team (Late st Contact Info) Description 11/04/2024 9:30 AM EDT Routine [facility] OB [address] [place] [address] Theodore Campbell, [address] [place], [place] [address] documented as of this encounter Visit Diagnoses Not on filedocumented in this encounter
--- OUTSIDE RECORDS SUMMARY | 2024-10-29 09:03 | XMS_ITS | Encounter Summary ---
Author Organization [facility] Address [address] [place] [address] Care Team Providers Care Non Categorical Preschool Teacher Name Role Phone Unavailable Primary Care Provider Unavailabl e Encounter Details Date Type Department Care Team (Late st Contact Info) Description 12/01/2022 Abstract [facility] OB [address] [facility] [address] [place] [address] Toi Maradiaga, DO [address] [facility] [address] [place] [address] Social History Tobacco Use Types Packs/Day Years [...] Start Date Job End Date Works at [employer] Not on file Not on file Not on file documented as of this encounter Plan of Treatment Upcoming Encounters Date Type Department Care Team (Late st Contact Info) Description 11/04/2024 9:30 AM EDT Routine [facility] OB [address] [place] [address] Theodore Campbell, DO [address] [place] [address] documented as of this encounter Visit Diagnoses Not on filedocumented in this encounter
--- OUTSIDE RECORDS SUMMARY | 2024-10-29 09:03 | XMS_ITS | Encounter Summary ---
Author Organization [facility] Address [address] [place] [address] Care Team Providers Care Copy Lathe Tender Name Role Phone Unavailable Primary Care Provider Unavailabl e Encounter Details Date Type Department Care Team (Late st Contact Info) Description 08/20/2024 Abstract [facility] OB [address] [place] [address] Shanna Bailon MA Social History Tobacco [...] Start Date Job End Date Works at [employer] Not on file Not on file Not on file documented as of this encounter Plan of Treatment Upcoming Encounters Date Type Department Care Team (Late st Contact Info) Description 11/04/2024 9:30 AM EDT Routine [facility] OB [address] [place] [address] Theodore Campbell, DO [address] [place] [address] documented as of this encounter Visit Diagnoses Not on filedocumented in this encounter
--- OUTSIDE RECORDS SUMMARY | 2024-10-29 09:03 | XMS_ITS | Encounter Summary ---
Author Organization [facility] Address [address] [facility] [place] [place] [address] Care Team Providers Care Drapery Hand Name Role Phone Unavailable Primary Care Provider Unavailabl e Encounter Details Date Type Department Care Team (Late st Contact Info) Description 02/29/2024 Orders Only [facility] [address] [place] [address] Priscila Joseph [place] [address] [place] [address] Social History Tobacco Use Types Packs/Day Years [...] Start Date Job End Date Works at [employer] Not on file Not on file Not on file documented as of this encounter Plan of Treatment Upcoming Encounters Date Type Department Care Team (Late st Contact Info) Description 11/04/2024 9:30 AM EDT Routine [facility] OB [address] [place] [address] Theodore Campbell DO [address] [place], [place] [id number] documented as of this encounter Procedures Procedure [...]
--- OUTSIDE RECORDS SUMMARY | 2024-10-29 09:03 | XMS_ITS | Encounter Summary ---
Author Organization [facility] Address [address] [place] [address] Care Team Providers Care Chief Jailer Name Role Phone Unavailable Primary Care Provider Unavailabl e Encounter Details Date Type Department Care Team (Late st Contact Info) Description 10/16/2024 Clinisync Result Encounter [facility] External Department Unsolicited Aquiles Campbell DO [address] [place] [address] Social History Tobacco Use Types Packs/Day Years [...] Start Date Job End Date Works at [employer] Not on file Not on file Not on file documented as of this encounter Plan of Treatment Upcoming Encounters Date Type Department Care Team (Late st Contact Info) Description 11/04/2024 9:30 AM EDT Routine [facility] OB [address] [place] [phone] Aquiles Campbell DO [address] [place] [address] documented as of this encounter Procedures Procedure Name Priority Date/Time Associated Diagnosis Comments US OB BPP W NON-STRESS 10/16/2024 7:15 AM EDT documented in this encounter Results * US OB BPP W NON-STRESS (10/16/2024 7:15 AM EDT) Anatomical Region Laterality Modality Other 10/16/2024 7:15 AM EDT Narrative 10/16/2024 7:17 [place] [address] Ultrasound Report Signed Patient: ED SILVA MR#: [id number] : 1990 Acct:[id number] Age/Sex: 33 / F ADM Date: 10/15/24 Loc: US Attending Dr: Aquiles Campbell D.O. Ordering Physician: Aquiles Campbell D.O. Date of Service: 10/15/24 Procedure(s): US OB BPP w non-stress Accession Number(s): [id number] cc: Aquiles Campbell D.O.; Physician,Non-Staff Hussein The [address] [address] Patient Name: ED SILVA MRN: [facility]:[id number] date: 1990 Sex: F Assigned Patient Location: US Current Patient Location: Accession/Order Number: [id number] Exam Date: 10/16/2024 07:14 Report Date: 10/16/2024 [...] Torre M.D. 10/16/2024 7:15 AM Dictation Location: [place] [address] Electronically authenticated by: [id number] Y Date: 10/16/2024 07:15 Dictated By: Alexus De La Torre M.D. Signed By: 10/16/24716 DD/ 4 TD/TT: Infusion Rn: Procedure Note Radiology, Radiologist, MD - 10/16/2024 [place] [address] Ultrasound Report Signed Patient: ED SILVAMR#: [id number] : 1990Acct:[id number] Age/Sex: 33 / FADM Date: 10/15/24 Loc: US Attending Dr: Aquiles Campbell D.O. Ordering Physician: Aquiles Campbell D.O. Date of Service: 10/15/24 Procedure(s): US OB BPP w non-stress Accession Number(s): [id number] cc: Aquiles Campbell D.O.; Physician,Non-Staff Hussein The [address] [address] Patient Name: ED SILVA MRN: [facility]:[id number] date: 1990 Sex: F Assigned Patient Location: US Current Patient Location: Accession/Order Number: [id number] Exam Date: 10/16/2024 07:14 Report Date: 10/16/2024 [...] Torre M.D. 10/16/2024 7:15 AM Dictation Location: [place] [address] Electronically authenticated by: [id number] Y Date: 507:15 Dictated By: Alexus De La Torre M.D. Signed By:10/16/24 0717 DD/ 0715 TD/TT: Infusion Rn: Aquiles Campbell DO [facility] Final Result documented in this encounter Visit Diagnoses Not on filedocumented in this encounter
--- OUTSIDE RECORDS SUMMARY | 2024-10-29 09:03 | XMS_ITS | Clinical Summary ---
Author Organization [facility] tem Address [id number] [address] [place] [address] Care Team Providers Care Oracle Security Consultant Name Role Phone Unavailable Primary Care Provider [...] Travel 08/07/2024 Orders Only Maternal- Medicine at [facility] [address] [place] [address] Ref Prov, Not In System 08/07/2024 Abstract Maternal- Medicine at [facility] [address] [place] [address] External, Scanning Provider from Last 3 Months [...] 9:49 AM EDT) Anatomical Region Laterality Modality OB-ONLINE ADVERTISING ANALYST Ultrasound 08/08/2024 8:19 AM EDT Narrative 08/08/2024 10:17 AM EDT NAME: SHIRA WARD : 1990 SEX: F Accession Number: [id number] ORDERING PHYSICIAN: AQUILES CAMPBELL REFERRING PHYSICIAN: AQUILES CAMPBELL Coding ----- --------- Procedures 03261: Ultrasound, uterus, real time with image documentation, and maternal evaluation plus detailed anatomic examination, transabdominal approach;single or first gestation Indication ----- --------- Screening for Anatomic Survey , AMA- Supervision of elderly, Previous x2, Obesity in History ----- --------- OB History 4. Para 2 [id number] Maternal Assessment ----- --------- Physical Exam Height [...] EFW (oz) 2 oz EFW by: Hadlock ([id number]) Extended Tibia 43.3 mm 26w 5d 81% Kiki Sailing Master 3.6 mm CM 4.0 mm 3% Nicolaides [...] view. RVOT view. LVOT view. 3-vessel view. 2-ichkov-jqtgocc view. Situs. Aortic arch view. Bicaval view. [...] WARD : 1990 SEX: F Accession Number: [id number] ORDERING PHYSICIAN: AQUILES CAMPBELL REFERRING PHYSICIAN: AQUILES CAMPBELL Coding ----- --------- Procedures 54503: Ultrasound, uterus, real time with imagedocumentation, and maternal evaluation plus detailed anatomic examination, transabdominalapproach;single or first gestation Indication ----- --------- Screening for Anatomic Survey , AMA- Supervision of elderly, PreviousC-Section x2, Obesity in History ----- --------- OB History 4. Para 2 [id number] Maternal Assessment ----- --------- Physical Exam Height [...] EFW (oz) 2 oz EFW by: Hadlock ([id number]) Extended Tibia 43.3 mm 26w 5d 81% Kiki Sailing Master 3.6 mm CM 4.0 mm 3% Nicolaides [...] 4-chamber view. RVOT view. LVOT view. 3-vessel view.9-ldzmok-ihoanxr view. Situs. Aortic arch view. Bicaval view. [...] R esult from Last 3 Months Insurance ON LICENSE OF [facility]
--- OUTSIDE RECORDS SUMMARY | 2024-10-29 09:03 | XMS_ITS | Encounter Summary ---
Author Organization [facility] Address [address] [facility] [place] [address] Care Team Providers Care Maid Housekeeper Name Role Phone Unavailable Primary Care Provider Unavailabl e Encounter Details Date Type Department Care Team (Late st Contact Info) Description 10/14/2024 Abstract [facility] [address] [place] [phone] Theodore Campbell [address] Aisha [place], [facility] Social History Tobacco Use Types Packs/Day [...] Start Date Job End Date Works at [employer] Not on file Not on file Not on file documented as of this encounter Plan of Treatment Upcoming Encounters Date Type Department Care Team (Late st Contact Info) Description 11/04/2024 9:30 AM EDT Routine [facility] [address] [place] [address] Theodore Campbell, [address] Aisha [place], [place] [phone] documented as of this encounter Visit Diagnoses Not on filedocumented in this encounter
--- NOTE | 2024-10-29 09:04 | US_ITS ---
[address] [address] Patient Name: ED SILVA MRN: [facility]:[id number] date: 1990 Sex: F Assigned Patient Location: [facility] Current Patient Location: [facility] Accession/Order Number: [id number] Exam Date: 10/29/2024 09:55 Report Date: 10/29/2024 09:56 At the request of: AQUILES CLEVELAND DO Procedure: US OB BPP w non-stress Biophysical profile. Reason for exam: Excessive growth COMPARISON: 10/22/2024 TECHNIQUE: Transabdominal imaging of the gravid uterus was obtained. FINDINGS: The plate and weld inspector reports a BPP of 8 out of 8. FRANK is normal at 13.3 cm. heart rate 135 bpm. US/US OB BPP w non-stress IMPRESSION: BPP 8 out of 8. Impression dictated by: Campos Hall Jr., D.O. 10/29/2024 9:56 AM Dictation Location: [place] [address] Electronically authenticated by: [id number] Y Date: 10/29/2024 09:56
[2024-10-29 09:26] VITALS: BP 106/59; PULSE 85
== END 2024-10-29 09:59 | disposition home or self-care (01) ==
LOC: US 09:01 → FBC 09:02
PROVIDERS: Visit Provider Obstetrics & Gynecology
DX: O09.523 Supervision of elderly multigravida, third trimester (principal); O36.63X0 Maternal care for excessive fetal growth, third trimester, not applicable or unspecified; Z3A.00 Weeks of gestation of pregnancy not specified
CPT/HCPCS: 76818

== ENCOUNTER 2024-11-01 08:02 | Outpatient (OUT) | payer BC, SELFPAY ==
--- OUTSIDE RECORDS SUMMARY | 2024-10-21 14:00 | XMS_ITS | Encounter Summary ---
Author Organization [facility] Address [address] [place] [address] Care Team Providers Care Compensation/Benefits Specialist Name Role Phone Unavailable Primary Care Provider Unavailabl e Reason for Visit * Reason Comments Routine Visit Encounter Details Date Type Department Care Team (Late st Contact Info) Description 10/21/2024 2:00 PM EDT Routine [facility] B[facility] OB [address] [place] [address] Theodore Campbell, DO [address] [facility] [address] [place], [facility] Third trimester ([facility]); 36 weeks gestation of ([facility]); Multigravida of advanced maternal age in third trimester ([facility]); HSV infection; Excessive growth affecting management of , antepartum, single or unspecified fetus ([facility]) Social History Tobacco Use Types Packs/Day [...] Start Date Job End Date Works at [employer] Not on file Not on file Not on file documented as of this encounter Last Filed Vital Signs Vital Sign Reading Time Taken Comments Blood Pressure 110/72 10/21/2024 2:17 PM EDT Pulse - - Temperature - - Respiratory Rate - - Oxygen Saturation - - Inhaled Oxygen Concentration - - Weight 128 kg (283 lb 4 oz) 10/21/2024 2:17 PM E DT Height - - Body Mass Index 42.44 08/22/2022 12:00 PM EDT documented in this encounter Progress Notes * Daniela Rappjonnathan, ZHENG - 10/21/2024 2:00 PM EDT Reason for Appointment: Patient ID: Beulah Murphy is a 33 y.o. female who presents for Routine Visit Patient presents today for Return OB appointment. MEDICATIONS Current Outpatient Medications Medication Instructions Rbutkgni-Ejt-Pm-FA ( 1 + IRON PO) valACYclovir (VALTREX) 500 mg, Oral, Daily ALLERGIES Allergies Allergen Reactions Cefadroxil Hives Other Reaction(s): hives, Unknown Other Reaction(s): hives, rash Latex Itching Other Reaction(s): Itching Other Reaction(s): Hives Paroxetine Other Reaction(s): Unknown PROBLEMS Active Ambulatory Problems Diagnosis Date Noted Anovulation 12/02/2022 DUB (dysfunctional uterine bleeding) 12/02/2022 Menstrual disorder 12/02/2022 Missed menses 12/02/2022 Yeast infection 12/02/2022 31 weeks gestation of ([facility]) 09/17/2024 Third trimester ([facility]) 09/17/2024 Multigravida of advanced maternal age in third trimester ([facility]) 09/17/2024 Resolved Ambulatory Problems Diagnosis Date Noted Bleeding in early ([facility]) 12/02/2022 Past Medical History: Diagnosis Date Frequent UTI Herpes History of chlamydia 2008 History of depression 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 Personal history of other medical treatment ([facility]) [place] teeth removed HISTORY PAST MEDICAL HISTORY SOCIAL HISTORY Past Medical History: Diagnosis Date Bleeding in early ([facility]) 12/02/2022 Frequent UTI Herpes History of chlamydia 2007 History of depression no meds 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 Personal history of other medical treatment Frenectomy ([facility]) x2 [place] teeth removed Social History Tobacco Use Smoking [...] nursing note reviewed. Exam conducted with a corporate quality engineer present. Vitals: Estimated body mass index is 42.44 kg/m?? as calculated from the following: Height as of 08/22/22: 5' 8.5 . Weight as of this encounter: 283 lb 4 oz. BP: 110/72 Patient's last menstrual period was 02/11/2024. ASSESSMENT & PLAN ICD-10-CM 1. Third trimester ([facility]) Z34.93 CULTURE, GROUP B STREP WITH SUSCEPTIBLITY CULTURE, GROUP B STREP WITH SUSCEPTIBLITY POCT urinalysis dipstick manually resulted 2. 36 weeks gestation of ([facility]) Z3A.36 3. Multigravida of advanced maternal age in third trimester ([facility]) O09.523 4. HSV infection B00.9 5. Excessive growth affecting management of , antepartum, single or unspecified fetus ([facility]) O36.60X0 Patient is doing well but has complaints of being tired and having maternal discomfort due to . Patient verbalized frequent movement and was instructed to perform kick counts three times per day. labor precautions were given, LARC consent was signed/declined, and GBS was obtained. Cervical check was not performed due to patient declining since she is a repeat on 11/11/24. Patient will sign Surgical Consents prior to leaving office today. Orders Placed This Encounter Procedures CULTURE, GROUP B STREP WITH SUSCEPTIBLITY POCT urinalysis dipstick manually resulted Follow Up: Patient is to return to office in 1 week for routine OB appointment. Documented by Daniela Candelaria LPN on behalf of: Theodore Campbell DO documented in this encounter Plan of Treatment Upcoming Encounters Date Type Department Care Team (Late st Contact Info) Description 11/04/2024 9:30 AM EDT Routine [facility] BCP OB [address] [place] [address] Theodore Campbell DO [address] [place] [address] documented as of this encounter Procedures Procedure Name Priority Date/Time Associated Diagnosis Comments POCT URINALYSIS DIPSTICK Routine 10/21/2024 2:22 PM EDT Third trimester ([facility]) CULTURE, GROUP B STREP WITH SUSCEPTIBLITY Routine 10/21/2024 2:08 PM EDT Third trimester ([facility]) documented in this encounter Results * POCT urinalysis dipstick manually resulted (10/21/2024 2:22 PM EDT) Color, UA Yellow Clarity, UA [...] Nitrite, UA Negative Negative - Positive Urine 10/21/2024 2:22 PM EDT INBEP Adrian DO POINT OF CARE TEST ENTER/EDIT OR DERABLES Final Result * CULTURE, GROUP B STREP WITH SUSCEPTIBLITY (10/21/2024 2:08 PM EDT) Swab 10/21/2024 2:08 PM EDT [facility] [place] [facility] DO LAB BLOOD ORDERABLES Final Resul t EXTERNAL LAB documented in this encounter Visit Diagnoses Diagnosis Third trimester ([facility]) state, incidental 36 weeks gestation of ([facility]) Multigravida of advanced maternal age in third trimester ([facility]) HSV infection Herpes simplex without mention of complication Excessive growth affecting management of , antepartum, single or unspecified fetus ([facility]) documented in this encounter
--- OUTSIDE RECORDS SUMMARY | 2024-10-28 11:20 | XMS_ITS | Encounter Summary ---
Author Organization [facility] Address [address] [place] [address] Care Team Providers Care Avionics Engineer Name Role Phone Unavailable Primary Care Provider Unavailabl e Reason for Visit * Reason Comments Routine Visit Encounter Details Date Type Department Care Team (Late st Contact Info) Description 10/28/2024 11:20 AM EDT Routine [facility] [address] [place] [phone] Theodore Campbell, DO [address] [place], [facility] Third trimester ([facility]); 37 weeks gestation of ([facility]) Social History Tobacco Use Types [...] Start Date Job End Date Works at [employer] Not on file Not on file Not [...] appointment. 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 Exam conducted with a special effects designer present. Vitals: Estimated body mass index is 42.61 kg/m?? as calculated from the following: Height as of 08/22/22: 5' 8.5 . Weight as of this encounter: 284 lb 6.4 oz. BP: 108/70 Patient's last menstrual period was 02/11/2024. ASSESSMENT & PLAN ICD-10-CM 1. Third trimester ([facility]) Z34.93 POCT urinalysis dipstick manually resulted 2. 37 weeks gestation of ([facility]) Z3A.37 POCT urinalysis dipstick manually [...] EDT Routine [facility] [address] [place] [phone] Theodore Campbell DO [address] [facility] [place] [address] documented as of this encounter Procedures Procedure Name Priority Date/Time Associated Diagnosis Comments POCT URINALYSIS DIPSTICK Routine 10/28/2024 11:43 AM EDT Third trimester ([facility]) 37 weeks gestation of ([facility]) documented in this encounter Results [...] this encounter Visit Diagnoses Diagnosis Third trimester ([facility]) state, incidental 37 weeks gestation of ([facility]) documented in this encounter
--- OUTSIDE RECORDS SUMMARY | 2024-11-01 08:04 | XMS_ITS | Encounter Summary ---
Author Organization [facility] Address [address] [place] [address] Care Team Providers Care Epic Willow Specialist Name Role Phone Unavailable Primary Care Provider Unavailabl e Encounter Details Date Type Department Care Team (Late st Contact Info) Description 12/01/2022 Abstract [facility] OB [address] [facility] [address] [place] [address] Toi Maradiaga, DO [address] [facility] [address] [place] [address] Social History Tobacco Use Types Packs/Day Years [...] Start Date Job End Date Works at [employer] Not on file Not on file Not on file documented as of this encounter Plan of Treatment Upcoming Encounters Date Type Department Care Team (Late st Contact Info) Description 11/04/2024 9:30 AM EDT Routine [facility] OB [address] [place] [address] Theodore Campbell, DO [address] [place] [address] documented as of this encounter Visit Diagnoses Not on filedocumented in this encounter
--- OUTSIDE RECORDS SUMMARY | 2024-11-01 08:04 | XMS_ITS | Encounter Summary ---
Author Organization [facility] Address [address] [place] [address] Care Team Providers Care Weigh And Charge Worker Name Role Phone Unavailable Primary Care Provider Unavailabl e Encounter Details Date Type Department Care Team (Late st Contact Info) Description 10/22/2024 Clinisync Result Encounter [facility] External Department Unsolicited Aquiles Campbell DO [address] [place] [address] Social History Tobacco Use Types Packs/Day Years [...] Start Date Job End Date Works at [employer] Not on file Not on file Not on file documented as of this encounter Plan of Treatment Upcoming Encounters Date Type Department Care Team (Late st Contact Info) Description 11/04/2024 9:30 AM EDT Routine [facility] B[facility] OB [address] [place] [phone] Aquiles Campbell DO [address] [place] [address] documented as of this encounter Procedures Procedure Name Priority Date/Time Associated Diagnosis Comments US OB BPP W NON-STRESS 10/22/2024 10:04 AM EDT documented in this encounter Results * US OB BPP W NON-STRESS (10/22/2024 10:04 AM EDT) Anatomical Region Laterality Modality Other 10/22/2024 10:0 4 AM EDT Narrative 10/22/2024 10:07 [place] [address] Ultrasound Report Signed Patient: ED SILVA MR#: [id number] : 1990 Acct:[id number] Age/Sex: 33 / F ADM Date: 10/22/24 Loc: [facility] 254-[address]: Aquiles Campbell D.O. Ordering Physician: Aquiles Campbell D.O. Date of Service: 10/22/24 Procedure(s): US OB BPP w non-stress Accession Number(s): [id number] cc: Aquiles Campbell D.O.; Physician,Non-Staff Hussein [address] [address] Patient Name: ED SILVA MRN: [facility]:[id number] date: 1990 Sex: F Assigned Patient Location: [facility] Current Patient Location: [facility] Accession/Order Number: [id number] Exam Date: 10/22/2024 10:02 Report Date: 10/22/2024 [...] Torre M.D. 10/22/2024 10:04 AM Dictation Location: [place] [address] Electronically authenticated by: [id number] Y Date: 10/22/2024 10:04 Dictated By: Alexus De La Torre M.D. Signed By: 10/22/24 1007 DD/ 1004 TD/TT: Loan Closer: Procedure Note Radiology, Radiologist, MD - 10/22/2024 [place] [address] Ultrasound Report Signed Patient: ED SILVA R#: [id number] : 1990Acct:[id number] Age/Sex: 33 / FADM Date: 10/22/24 Loc: [facility] 254-[address]: Aquiles Campbell D.O. Ordering Physician: Aquiles Campbell D.O. Date of Service: 10/22/24 Procedure(s): US OB BPP w non-stress Accession Number(s): [id number] cc: Aquiles Campbell D.O.; Physician,Non-Staff Hussein The [address] [address] Patient Name: DE SILVA MRN: [facility]:[id number] date: 1990 Sex: F Assigned Patient Location: [facility] Current Patient Location: [facility] Accession/Order Number: [id number] Exam Date: 10/22/2024 10:02 Report Date: 10/22/2024 [...] Torre M.D. 10/22/2024 10:04 AM Dictation Location: [place] [address] Electronically authenticated by: [id number] Y Date: 0:04 Dictated By: Alexus De La Torre M.D. Signed By:10/22/24 1007 DD/ 1004 TD/TT: Loan Closer: Aquiles Campbell DO [facility] Final Result documented in this encounter Visit Diagnoses Not on filedocumented in this encounter
--- OUTSIDE RECORDS SUMMARY | 2024-11-01 08:04 | XMS_ITS | Encounter Summary ---
Author Organization [facility] Address [address] [facility] [place] [address] Care Team Providers Care Blow Mold Technician Name Role Phone Unavailable Primary Care Provider Unavailabl e Encounter Details Date Type Department Care Team (Late st Contact Info) Description 04/15/2024 Abstract [facility] OB [address] [place] [address] Theodore Campbell [address] A[place], [id number] Social History Tobacco Use Types Packs/Day Years [...] Start Date Job End Date Works at [employer] Not on file Not on file Not on file documented as of this encounter Plan of Treatment Upcoming Encounters Date Type Department Care Team (Late st Contact Info) Description 11/04/2024 9:30 AM EDT Routine [facility] OB [address] [place] [address] Theodore Campbell, [address] Aisha [place], [place] [address] documented as of this encounter Visit Diagnoses Not on filedocumented in this encounter
--- OUTSIDE RECORDS SUMMARY | 2024-11-01 08:04 | XMS_ITS | Encounter Summary ---
Author Organization [facility] Address [address] [place] [address] Care Team Providers Care Nuclear Medicine Specialist Name Role Phone Unavailable Primary Care Provider Unavailabl e Encounter Details Date Type Department Care Team (Late st Contact Info) Description 02/29/2024 Orders Only [facility] B[facility] OB [address] [place] [address] Priscila Joseph [place] [address] [place] [address] Social History Tobacco Use Types Packs/Day Years [...] Start Date Job End Date Works at [employer] Not on file Not on file Not on file documented as of this encounter Plan of Treatment Upcoming Encounters Date Type Department Care Team (Late st Contact Info) Description 11/04/2024 9:30 AM EDT Routine [facility] B[facility] OB [address] [place] [address] Theodore Campbell DO [address] [place], [place] [phone] documented as of this encounter Procedures Procedure [...]
--- OUTSIDE RECORDS SUMMARY | 2024-11-01 08:04 | XMS_ITS | Encounter Summary ---
Author Organization [facility] Address [address] [facility] [place] [address] Care Team Providers Care Emr Specialist Name Role Phone Unavailable Primary Care Provider Unavailabl e Encounter Details Date Type Department Care Team (Late st Contact Info) Description 07/25/2024 Abstract [facility] OB [address] [place] [address] Theodore Campbell [address] [place], [facility] Social History Tobacco Use Types Packs/Day [...] Start Date Job End Date Works at [employer] Not on file Not on file Not on file documented as of this encounter Plan of Treatment Upcoming Encounters Date Type Department Care Team (Late st Contact Info) Description 11/04/2024 9:30 AM EDT Routine [facility] OB [address] [place] [address] Theodore Campbell, [address] A[address] [place], [place] [address] documented as of this encounter Visit Diagnoses Not on filedocumented in this encounter
--- OUTSIDE RECORDS SUMMARY | 2024-11-01 08:04 | XMS_ITS | Encounter Summary ---
Author Organization [facility] Address [address] [place] [address] Care Team Providers Care Strings Teacher Name Role Phone Unavailable Primary Care Provider Unavailabl e Encounter Details Date Type Department Care Team (Late st Contact Info) Description 08/20/2024 Abstract [facility] B[facility] OB [address] [place] [address] Shanna Bailon MA Social History Tobacco [...] Start Date Job End Date Works at for[employer] Not on file Not on file Not on file documented as of this encounter Plan of Treatment Upcoming Encounters Date Type Department Care Team (Late st Contact Info) Description 11/04/2024 9:30 AM EDT Routine [facility] OB [address] [place] [address] Theodore Campbell, DO [address] [place] [address] documented as of this encounter Visit Diagnoses Not on filedocumented in this encounter
--- OUTSIDE RECORDS SUMMARY | 2024-11-01 08:04 | XMS_ITS | Encounter Summary ---
Author Organization [facility] Address [address] [place] [address] Care Team Providers Care Barrel Raiser Helper Name Role Phone Unavailable Primary Care Provider Unavailabl e Encounter Details Date Type Department Care Team (Late st Contact Info) Description 10/21/2024 Bamboo flowsheet [facility] OB [address] [place] [address] Theodore Campbell [address] Aisha [place], [facility]11 Social History Tobacco Use Types Packs/Day [...] Start Date Job End Date Works at [employer] Not on file Not on file Not on file documented as of this encounter Plan of Treatment Upcoming Encounters Date Type Department Care Team (Late st Contact Info) Description 11/04/2024 9:30 AM EDT Routine [facility] OB [address] [place] [address] Theodore Campbell, [address] [place] [address] documented as of this encounter Visit Diagnoses Not on filedocumented in this encounter
--- OUTSIDE RECORDS SUMMARY | 2024-11-01 08:04 | XMS_ITS | Clinical Summary ---
Author Organization [facility] Address [address] [place] [address] Care Team Providers Care Yarn Conditioner Name Role Phone Unavailable Primary Care Provider Unavailabl e Allergies Active Allergy Reactions Criticality Noted Date Comments Cefadroxil Hives 12/02/2022 Other Reaction(s): hives, Unknown Other Reaction(s): hives, rash Latex Itching 12/02/2022 Other Reaction(s): Itching Other Reaction(s): Hives Paroxetine 12/02/2022 Other Reaction(s): Unknown Medications Ojcenubk-Gyp-Zo -FA ( 1 + IRON PO) Active valACYclovir (Valtrex) 500 MG tabletIndicatio ns:HSV infection Take 1 tablet (500 mg) by mouth Daily 30 tablet 5 10/15/19 25 025 Active Alcohol Swabs (Alcohol Prep Pad) 70 % padsIndications :Gestational diabetes mellitus (GDM), antepartum, gestational diabetes method of control unspecified ([facility] keron glucose tolerance test Apply 1 Pad topically Daily Use four times daily to check FSBS. 150 each 3 07/26/19 25 025 Discontinued Blood Glucose Monitoring Suppl (D-Care Glucometer) w/Device kitIndications: Gestational diabetes mellitus (GDM), antepartum, gestational diabetes method of control unspecified ([facility]),[place] keron glucose tolerance test 1 kit Daily Use four times daily to check FSBS. In the morning prior to breakfast & 1 hour after each meal for a total of 4times daily. 1 kit 07/26/19 025 Discontinued Active Problems Problem Noted Date Diagnosed Date 31 weeks gestation of ([facility]) 2024 Third trimester ([facility]) 09/17/2024 Multigravida of advanced mat ernal age in third trimester ([facility]) 09/17/2024 Anovulation 12/02/2022 DUB (dysfunctional uterine bleeding) 12/02/2022 Menstrual disorder 12/02/2022 Missed menses 12/02/2022 Yeast infection 12/02/2022 Estimated Date of Delivery Comme nts Yes 11/17/2024 Based on last me nstrual period of 02/11/2024 Resolved Problems Problem Noted Date Diagnosed Date Resolved Date Bleeding in early ([facility]) 12/02/2022 12/02/2022 Encounters Date Type Department Care Team Description 10/29/2024 Clinisync Result Encounter [facility] External Department Unsolicited Aquiles Campbell, 10/28/2024 11:20 AM EDT Routine [facility] OB [address] [place], [place] [address] [address] Aquiles Campbell, Third trimester ([facility]); 37 weeks gestation of ([facility]) 10/28/2024 Bamboo flowsheet [facility] [address] [place] [address] Aquiles Campbell, 10/22/2024 Clinisync Result Encounter NOMS External Department Unsolicited Aquiles Campbell, 10/21/2024 2:00 PM EDT Routine [facility] OB [address] [place] [address] [place] [address] Aquiles Campbell, Third trimester ([facility]); 36 weeks gestation of ([facility]); Multigravida of advanced maternal age in third trimester ([facility]); HSV infection; Excessive growth affecting management of , antepartum, single or unspecified fetus ([facility]) 10/21/2024 Bamboo flowsheet [facility] OB [address] [place], [place] [address] [address] Aquiles Campbell, DO 10/16/2024 Abstract [facility] OB [address] [place] [address] Shanna Bailon MA 10/16/2024 Clinisync Result Encounter NOMS External Department Unsolicited Aquiles Campbell, DO 10/14/2024 2:30 PM EDT Routine [facility] [place] [facility] [place] [address] Aquiles Campbell, DO 35 weeks gestation of ([facility]); Third trimester ([facility]); Multigravida of advanced maternal age in third trimester ([facility]); Excessive growth affecting management of , antepartum, single or unspecified fetus ([facility]); Low iron; HSV infection 10/14/2024 2:00 PM EDT Ancillary Procedure [facility] [address] [place] [address] Multigravida of advanced maternal age in third trimester ([facility]); H/O miscarriage, currently ([facility]) 10/14/2024 Abstract [facility] OB [address] [place] [address] Aquiles Campbell, DO 10/14/2024 Travel 10/09/2024 Clinisync Result Encounter [facility]S External Department Unsolicited Aquiles Campbell, DO 10/02/2024 Clinisync Result Encounter [facility]OMS External Department Unsolicited Aquiles Campbell, DO 09/30/2024 3:30 PM EDT Routine [facility] [address] [place] [address] Flower Joyce PA Third trimester ([facility]); 33 weeks gestation of ([facility]) 09/30/2024 Bamboo flowsheet [facility] OB [address] [place] [address] Flower Joyce PA 09/26/2024 Travel 09/25/2024 Clinisync Result Encounter [facility]OMS External Department Unsolicited Aquiles Campbell, DO 09/23/2024 Abstract [facility] [address] [place] [address] Aquiles Campbell, DO 09/17/2024 10:20 AM EDT Routine [facility] [address] [place] [address] Aquiles Campbell, DO 31 weeks gestation of ([facility]); Third trimester ([facility]); Multigravida of advanced maternal age in third trimester ([facility]); Excessive growth affecting management of , antepartum, single or unspecified fetus ([facility]) 09/17/2024 9:30 AM EDT Ancillary Procedure [facility] [address] [place] [address] Size of fetus inconsistent with dates in second trimester ([facility]) 09/16/2024 Travel 09/14/2024 Travel 08/28/[address] [facility] [address] [place] [address] Robertjohnathon Vicki, LPN 08/27/2024 8:50 AM EDT Routine [facility] [address] [place] [address] Flower Joyce PA Size of fetus inconsistent with dates in second trimester ([facility]) (Primary Dx); Third trimester ([facility]); 28 weeks gestation of ([facility]) 08/27/2024 Clinisync Result Encounter [facility]OMS External Department Unsolicited Flower Joyce PA 08/27/2024 Bamboo flowsheet [facility] [address] [place] [address] Flower Joyce PA 08/26/2024 Travel 08/20/2024 Abstract [facility] [address] [place] [address] Shanna Bailon MA from Last 3 Months Family History Medical [...] Start Date Job End Date Works at [employer] Not on file Not on file Not [...] AM EDT Routine [facility] OB [address] [facility] [place] [address] Aquiles Campbell, DO [address] [place] [address] Procedures Procedure Name Priority Date/Time Associated Diagnosis Comments US OB BPP W NON-STRESS 10/29/2024 9:56 AM EDT POCT URINALYSIS DIPSTICK Routine 10/28/2024 11:43 AM EDT Third trimester ([facility]) 37 weeks gestation of ([facility]) US OB BPP W NON-STRESS 10/22/2024 10:04 AM EDT POCT URINALYSIS DIPSTICK Routine 10/21/2024 2:22 PM EDT Third trimester ([facility]) CULTURE, GROUP B STREP WITH SUSCEPTIBLITY Routine 10/21/2024 2:08 PM EDT Third trimester ([facility]) US OB BPP W NON-STRESS 10/16/2024 7:15 AM EDT POCT URINALYSIS DIPSTICK Routine 10/14/2024 3:18 PM EDT 35 weeks gestation of ([facility]) Third trimester ([facility]) US OB FOLLOW UP TRANSABDOMINAL APPROACH Routine 10/14/2024 2:25 PM EDT Multigravida of advanced maternal age in third trimester ([facility]) H/O miscarriage, currently ([facility]) US OB BPP W NON-STRESS 10/09/2024 7:52 AM EDT US OB BPP W NON-STRESS 10/02/2024 8:07 AM EDT POCT URINALYSIS DIPSTICK Routine 09/30/2024 3:51 PM EDT Third trimester ([facility]) US OB BPP W NON-STRESS 09/25/2024 7:58 AM EDT POCT URINALYSIS DIPSTICK Routine 09/17/2024 10:37 AM EDT 31 weeks gestation of ([facility]) Third trimester ([facility]) Multigravida of advanced maternal age in third trimester ([facility]) US OB FOLLOW UP TRANSABDOMINAL APPROACH Routine 09/17/2024 9:58 AM EDT Size of fetus inconsistent with dates in second trimester ([facility]) ALL CBC WITH AUTO DIFF Routine 10:10 AM EDT MLR HEMOGLOBIN A1C Routine 08/27/2024 10 :10 AM EDT POCT URINALYSIS DIPSTICK Routine 08/27/2024 9:26 AM EDT Third trimester ([facility]) 28 weeks gestation of ([facility]) from Last 3 Months Results * US OB BPP W NON-STRESS (10/29/2024 9:56 AM EDT) Only the most recent of6 resultswithin the time period is included. Anatomical Region Laterality Modality Other 10/29/2024 9:56 AM EDT Narrative 10/29/2024 9:59 [place] [address] Ultrasound Report Signed Patient: ED SILVA MR#: [id number] : 1990 Acct:[id number] Age/Sex: 33 / F ADM Date: 10/29/24 Loc: [place] [address]- Attending Dr: Aquiles Campbell D.O. Ordering Physician: Aquiles Campbell D.O. Date of Service: 10/29/24 Procedure(s): US OB BPP w non-stress Accession Number(s): [id number] cc: Aquiles Campbell D.O.; Physician,Non-Staff M.DAp The [place] [id number] Patient Name: ED SILVA MRN: [facility]:[id number] date: 1990 Sex: F Assigned Patient Location: [facility] Current Patient Location: [facility] Accession/Order Number: [id number] Exam Date: 10/29/2024 09:55 Report Date: 10/29/2024 09:56 At the request of: AQUILES CAMPBELL DO Procedure: US OB BPP w non-stress Biophysical profile. Reason for exam: Excessive growth COMPARISON: 10/22/2024 TECHNIQUE: Transabdominal imaging of the gravid uterus was obtained. FINDINGS: The machine worker reports a BPP of 8 out of 8. FRANK is normal at 13.3 cm. heart rate 135 bpm. US/US OB BPP w non-stress IMPRESSION: BPP 8 out of 8. Impression dictated by: Campos Hall Jr., D.O. 10/29/2024 9:56 AM Dictation Location: [place] [address] Electronically authenticated by: [id number] Y Date: 10/29/2024 09:56 Dictated By: Campos Hall M.D. Signed By: 10/29/2459 DD/ 5 TD/TT: Finisher Screwdown: Procedure Note Radiology, Radiologist, MD - 10/29/2024 [place] [address] Ultrasound Report Signed Patient: ED SILVA LMR#: [id number] : 1990Acct:[id number] Age/Sex: 33 / FADM Date: 10/29/24 Loc: [place] [address]- Attending Dr: Aquiles Campbell D.O. Ordering Physician: Aquiles Campbell D.O. Date of Service: 10/29/24 Procedure(s): US OB BPP w non-stress Accession Number(s): [id number] cc: Aquiles Campbell D.O.; Physician,Non-Staff Hussein The [place] [address] Patient Name: ED SILVA MRN: [facility]:[id number] date: 1990 Sex: F Assigned Patient Location: [facility] Current Patient Location: [facility] Accession/Order Number: [id number] Exam Date: 10/29/2024 09:55 Report Date: 10/29/2024 09:56 At the request of: AQUILES ADRIAN DO Procedure: US OB BPP w non-stress Biophysical profile. Reason for exam: Excessive growth COMPARISON: 10/22/2024 TECHNIQUE: Transabdominal imaging of the gravid uterus was obtained. FINDINGS: The machine worker reports a BPP of 8 out of 8. FRANK is normal at13.3 cm. heart rate 135 bpm. US/US OB BPP w non-stress IMPRESSION: BPP 8 out of 8. Impression dictated by: Campos Hall Jr., D.O. 10/29/2024 9:56 AM Dictation Location: [place] [address] Electronically authenticated by: [id number] Y Date: 9:56 Dictated By: Campos Hall M.D. Signed By:10/29/2459 DD/ TD/TT: Finisher Screwdown: [facility] Adrian DO [facility] Final Result * POCT urinalysis dipstick manually resulted (10/28/2024 [...] Positive Urine 10/28/2024 11:4 3 AM EDT Aquiles Adrian DO POINT OF CARE TEST ENTER/EDIT OR DERABLES Final Result * CULTURE, GROUP B STREP WITH SUSCEPTIBLITY (10/21/2024 2:08 PM EDT) Swab 10/21/2024 2:08 PM EDT us Aquiles Campbell DO LAB BLOOD ORDERABLES Final Resul t EXTERNAL LAB * US OB follow up transabdominal approach [...] BY: ELECTRONICALLY SIGNED BY: Campos Vital MD Aquiles Campbell DO IMG OB US PROCEDURES Final Resul t * MLR HEMOGLOBIN A1C (08/27/2024 10:10 AM EDT) [facility] GLYCOHEMOGLOBIN A1C 5.6 4.5 - 6.2 % [facility] Comment: ADA RECOMMENDED LIMIT 4.0 - 6.0 ADA THERAPEUTIC TARGET < 7.0 ACTION SUGGESTED > 7.0 ESTIMATED AVERAGE GLUCOSE 114 mg/dL [facility] 08/27/2024 10:1 0 AM EDT 08/27/2024 10:21 AM EDT Narrative [facility] - 08/27/2024 10:36 AM EDT Flower PEREZISYNC Final Result [facility] * (ABNORMAL) ALL CBC WITH AUTO DIFF (08/27/2024 10:10 AM EDT) [facility] WBC 10.0 4.0 - 11.0 10 3/uL [...] DE LA PAZ [facility] Final Result [facility] from Last 3 Months Insurance [facility]
--- OUTSIDE RECORDS SUMMARY | 2024-11-01 08:04 | XMS_ITS | Encounter Summary ---
Author Organization [facility] Address [address] [facility] [place] [address] Care Team Providers Care Custom Leather Products Maker Name Role Phone Unavailable Primary Care Provider Unavailabl e Encounter Details Date Type Department Care Team (Late st Contact Info) Description 10/14/2024 Abstract [facility] OB [address] [place] [address] Theodore Campbell [address] Aisha [place], [facility] Social History Tobacco Use Types Packs/Day Years [...] Start Date Job End Date Works at [employer] Not on file Not on file Not on file documented as of this encounter Plan of Treatment Upcoming Encounters Date Type Department Care Team (Late st Contact Info) Description 11/04/2024 9:30 AM EDT Routine [facility] OB [address] [address] Theodore Campbell, [address] Aisha [place], [place] [address] documented as of this encounter Visit Diagnoses Not on filedocumented in this encounter
--- OUTSIDE RECORDS SUMMARY | 2024-11-01 08:04 | XMS_ITS | Encounter Summary ---
Author Organization [facility] Address [address] [place] [address] Care Team Providers Care Geomagnetician Name Role Phone Unavailable Primary Care Provider Unavailabl e Encounter Details Date Type Department Care Team (Late st Contact Info) Description 10/29/2024 Clinisync Result Encounter [facility] External Department Unsolicited Aquiles Campbell DO [address] [place] [address] Social History Tobacco Use Types Packs/Day Years [...] Start Date Job End Date Works at [employer] Not on file Not on file Not on file documented as of this encounter Plan of Treatment Upcoming Encounters Date Type Department Care Team (Late st Contact Info) Description 11/04/2024 9:30 AM EDT Routine [facility] OB [address] [place] [address] Aquiles Campbell DO [address] [place] [address] documented as of this encounter Procedures Procedure Name Priority Date/Time Associated Diagnosis Comments US OB BPP W NON-STRESS 10/29/2024 9:56 AM EDT documented in this encounter Results * US OB BPP W NON-STRESS (10/29/2024 9:56 AM EDT) Anatomical Region Laterality Modality Other 10/29/2024 9:56 AM EDT Narrative 10/29/2024 9:59 [place] [address] Ultrasound Report Signed Patient: ED SILVA MR#: [id number] : 1990 Acct:[id number] Age/Sex: 33 / F ADM Date: 10/29/24 Loc: [facility] [address]: Aquiles Campbell D.O. Ordering Physician: Aquiles Campbell D.O. Date of Service: 10/29/24 Procedure(s): US OB BPP w non-stress Accession Number(s): [id number] cc: Aquiles Campbell D.O.; Physician,Non-Staff MSalomon The [address] [address] Patient Name: DE SILVA MRN: [facility]:[id number] date: 1990 Sex: F Assigned Patient Location: [facility] Current Patient Location: [facility] Accession/Order Number: [id number] Exam Date: 10/29/2024 09:55 Report Date: 10/29/2024 09:56 At the request of: AQUILES CAMPBELL DO Procedure: US OB BPP w non-stress Biophysical profile. Reason for exam: Excessive growth COMPARISON: 10/22/2024 TECHNIQUE: Transabdominal imaging of the gravid uterus was obtained. FINDINGS: The dispatch coordinator reports a BPP of 8 out of 8. FRANK is normal at 13.3 cm. heart rate 135 bpm. US/US OB BPP w non-stress IMPRESSION: BPP 8 out of 8. Impression dictated by: Campos Hall Jr., D.O. 10/29/2024 9:56 AM Dictation Location: [place] [address] Electronically authenticated by: [id number] Y Date: 10/29/2024 09:56 Dictated By: Campos Hall M.D. Signed By: 10/29/2459 DD/ 5 TD/TT: Web Press Operator Assistant: Procedure Note Radiology, Radiologist, MD - 10/29/2024 [place] [address] Ultrasound Report Signed Patient: ED SILVA LMR#: [id number] : 1990Acct:[id number] Age/Sex: 33 / FADM Date: 10/29/24 Loc: [facility] 250-[address]: Aquiles Campbell D.O. Ordering Physician: Aquiles Campbell D.O. Date of Service: 10/29/24 Procedure(s): US OB BPP w non-stress Accession Number(s): [id number] cc: Aquiles Campbell D.O.; Physician,Non-Staff Hussein The [place] [address] Patient Name: ED SILVA MRN: [facility]:[id number] date: 1990 Sex: F Assigned Patient Location: [facility] Current Patient Location: [facility] Accession/Order Number: [id number] Exam Date: 10/29/2024 09:55 Report Date: 10/29/2024 09:56 At the request of: AQUILES CAMPBELL DO Procedure: US OB BPP w non-stress Biophysical profile. Reason for exam: Excessive growth COMPARISON: 10/22/2024 TECHNIQUE: Transabdominal imaging of the gravid uterus was obtained. FINDINGS: The dispatch coordinator reports a BPP of 8 out of 8. FRANK is normal at13.3 cm. heart rate 135 bpm. US/US OB BPP w non-stress IMPRESSION: BPP 8 out of 8. Impression dictated by: Campos Hall Jr., D.O. 10/29/2024 9:56 AM Dictation Location: [place] [address] Electronically authenticated by: [id number] Y Date: 9:56 Dictated By: Campos Hall M.D. Signed By:10/29/24 0959 DD/ TD/TT: Web Press Operator Assistant: us Aquiles Adrian DO [facility] Final Result documented in this encounter Visit Diagnoses Not on filedocumented in this encounter
--- OUTSIDE RECORDS SUMMARY | 2024-11-01 08:04 | XMS_ITS | Encounter Summary ---
Author Organization [facility] Address [address] [place] [address] Care Team Providers Care Airplane Electrical Repairer Name Role Phone Unavailable Primary Care Provider Unavailabl e Encounter Details Date Type Department Care Team (Late st Contact Info) Description 10/16/2024 Abstract [facility] B[facility] OB [address] [place] [address] Shanna Bailon MA Social History Tobacco [...] Start Date Job End Date Works at [employer] Not on file Not on file Not on file documented as of this encounter Plan of Treatment Upcoming Encounters Date Type Department Care Team (Late st Contact Info) Description 11/04/2024 9:30 AM EDT Routine [facility] B[facility] OB [address] [place] [address] Theodore Campbell, DO [address] [place] [address] documented as of this encounter Visit Diagnoses Not on filedocumented in this encounter
--- OUTSIDE RECORDS SUMMARY | 2024-11-01 08:04 | XMS_ITS | Encounter Summary ---
Author Organization [facility] Address [address] [place] [address] Care Team Providers Care Online Affiliate Marketing Manager Name Role Phone Unavailable Primary Care Provider Unavailabl e Encounter Details Date Type Department Care Team (Late st Contact Info) Description 10/28/2024 Bamboo flowsheet [facility] BCP OB [address] [place] [address] Theodore Campbell [address] [place] [address] A[place], [facility] [...] Start Date Job End Date Works at [employer] Not on file Not on file Not on file documented as of this encounter Plan of Treatment Upcoming Encounters Date Type Department Care Team (Late st Contact Info) Description 11/04/2024 9:30 AM EDT Routine [facility] B[facility] OB [address] [place] [address] Theodore Campbell, [address] [place] [address] documented as of this encounter Visit Diagnoses Not on filedocumented in this encounter
--- OUTSIDE RECORDS SUMMARY | 2024-11-01 08:04 | XMS_ITS | Encounter Summary ---
Author Organization [facility] Address [address] [facility] [place] [address] Care Team Providers Care Manager Line Name Role Phone Unavailable Primary Care Provider Unavailabl e Encounter Details Date Type Department Care Team (Late st Contact Info) Description 09/23/2024 Abstract [facility] OB [address] [place] [address] Theodore Campbell [address] Aisha [place], [facility] Social History Tobacco Use Types Packs/Day [...] Start Date Job End Date Works at [employer] Not on file Not on file Not on file documented as of this encounter Plan of Treatment Upcoming Encounters Date Type Department Care Team (Late st Contact Info) Description 11/04/2024 9:30 AM EDT Routine [facility] OB [address] [place] [address] Theodore Campbell, [address] Aisha [place], [place] [id number] documented as of this encounter Visit Diagnoses Not on filedocumented in this encounter
--- OUTSIDE RECORDS SUMMARY | 2024-11-01 08:04 | XMS_ITS | Clinical Summary ---
Author Organization [employer] [facility] tem Address [id number] [address] [place] [address] Care Team Providers Care Mail Service Coordinator Name Role Phone Unavailable Primary Care [...] 08/07/2024 Orders Only Maternal- Medicine at [facility] [address] [place] [address] Ref Prov, Not In System 08/07/2024 Abstract Maternal- Medicine at [facility] [address] [place] [address] External, Scanning Provider from Last 3 Months [...] Procedure Name Priority Date/Time Associated Diagnosis Comments [facility] COMPRE[facility]ATOMIC SURVEY Routine 08/08/2024 9:49 AM EDT Encounter for anatomic survey from Last 3 Months Results * [facility]OMIC SURVEY (08/08/2024 9:49 AM EDT) Anatomical Region Laterality Modality OB-WOOL CLEANER Ultrasound 08/08/2024 8:19 AM EDT Narrative 08/08/2024 10:17 AM EDT NAME: SHIRA WARD : 1990 SEX: F Accession Number: [id number] ORDERING PHYSICIAN: AQUILES CAMPBELL REFERRING PHYSICIAN: AQUILES CAMPBELL Coding ----- --------- Procedures [id number]: Ultrasound, uterus, real time with image documentation, and maternal evaluation plus detailed anatomic examination, transabdominal approach;single or first gestation Indication ----- --------- Screening for Anatomic Survey , AMA- Supervision of elderly, Previous x2, Obesity in History ----- --------- OB History 4. Para 2 [id number] Maternal Assessment ----- --------- Physical Exam Height [...] EFW (oz) 2 oz EFW by: Hadlock ([id number]) Extended Tibia 43.3 mm 26w 5d 81% Kiki Senior Research Project Manager 3.6 mm CM 4.0 mm 3% Nicolaides [...] view. RVOT view. LVOT view. 3-vessel view. 5-tkdmsg-vhxqiud view. Situs. Aortic arch view. Bicaval view. [...] primary OB provider unless otherwise specified by M. Results forwarded to ordering provider so they can follow up with the patient as necessary. Procedure Note Jesus Villagomez MD - 08/08/2024 NAME: SHIRA WARD : 1990 SEX: F Accession Number: [id number] ORDERING PHYSICIAN: AQUILES CAMPBELL REFERRING PHYSICIAN: AQUILES CAMPBELL Coding ----- --------- Procedures [id number]: Ultrasound, uterus, real time with imagedocumentation, and maternal evaluation plus detailed anatomic examination, transabdominalapproach;single or first gestation Indication ----- --------- Screening for Anatomic Survey , AMA- Supervision of elderly, PreviousC-Section x2, Obesity in History ----- --------- OB History 4. Para 2 [id number] Maternal Assessment ----- --------- Physical Exam Height [...] EFW (oz) 2 oz EFW by: Hadlock ([id number]) Extended Tibia 43.3 mm 26w 5d 81% Kiki Senior Research Project Manager 3.6 mm CM 4.0 mm 3% Nicolaides [...] 4-chamber view. RVOT view. LVOT view. 3-vessel view.0-xptnwv-cofgpbv view. Situs. Aortic arch view. Bicaval view. [...] byprimary OB provider unless otherwise specified by [facility]. Results forwarded to ordering provider so they can follow up with thepatient as necessary. Aquiles Campbell DO [facility] ORDERABLES Final Result from Last 3 Months Insurance [facility]
--- OUTSIDE RECORDS SUMMARY | 2024-11-01 08:04 | XMS_ITS | Encounter Summary ---
Author Organization [facility] tem Address [id number] [address] [place] [address] Care Team Providers Care Rating Clerk Name Role Phone Unavailable Primary Care Provider Unavailabl e Encounter Details Date Type Department Care Team (Late st Contact Info) Description 08/07/2024 Orders Only Maternal- Medicine at [facility] [address] [facility] [place] [id number] Ref Prov, [place] [address] Social History Tobacco Use Types Packs/Day Years [...]
[2024-11-01 08:10] VITALS: BP 109/61; PULSE 92
--- OUTSIDE RECORDS SUMMARY | 2024-11-01 08:18 | XMS_ITS | CCD ---
Author Organization [facility] Care Team Providers Care Systems Software Engineer Name Role Phone ADRIAN ., DR KWAN [...] Facility (1 source) Cefadroxil Drug Allergy [facility] Repository (1 source) natural latex rubber Drug allergy (disorder) [facility] Repository (20 sources) Cefadroxil; Translations: [CEFADROXIL] Drug Allergy 3 Hives [facility] (20 sources) Latex; Translations: [LATEX] Allergy to substance 3 Itching [facility] (20 sources) PARoxetine; Translations: [PAROXETINE] Drug Allergy 3 [facility] (1 source) Latex Propensity to [...] Daily 30 capsule 6 08/28/2024 09/27/2024 Active Xwgyytsj-Wjs-Op-FA ( 1 + IRON PO) (20 sources) Ftwlxjst-Erc-Ck-FA ( 1 + IRON PO) Active vit,jorge [...] Daily Active valACYclovir 500 mg oral tablet (11 sources) Herpesvirus Nucleoside Analog DNA Polymerase Inhibitor, [...] 150 each 3 07/25/2024 10/14/2024 Discontinued Vit-Fe Tgsqqpt-BY-L CAI ( VITAMIN/MIN +DHA PO) (20 sources) Start: 06-09-2023 End: 06-03-2024 Vit-Fe Ogyfrax-OU-P CAI ( VITAMIN/MIN +DHA PO) 06/09/2023 06/03/2024 Discontinued (Other) Start: 06-09-2023 Vit-F e Snrjxfh-MR-KKH ( VITAMIN/MIN +DHA PO) 06/09/2023 Active Progesterone [...] of ] 08-27-2024 Episodic Residual codes; unclassified (20 sources) Gestation period, 31 weeks; Translations: [31 [...] [36 weeks gestation of ] 10-21-2024 Episodic Residual codes; unclassified (2 sources) Gestation period, 37 weeks; Translations: [37 weeks gestation of ] 10-28-2024 Episodic Viral infection (4 sources) Herpes simplex; [...] Facility US OB BPP W NON-STRESS on 10-29-2024 [place] [address] Ultrasound Report Signed Patient: ED MURPHY MR#: [id number] : 1990 Acct:[id number] Age/Sex: 33 / F ADM Date: 10/29/24 Loc: [facility] 250-[address]: Aquiles Campbell D.O. Ordering Physician: Aquiles Campbell D.O. Date of Service: 10/29/24 Procedure(s): US OB BPP w non-stress Accession Number(s): [id number] cc: Aquiles Campbell D.O.; Physician,Non-Staff M.DAp [place] [address] Patient Name: ED MURPHY MRN: [facility]:[id number] date: 1990 Sex: F Assigned Patient Location: [facility] Current Patient Location: [facility] Accession/Order Number: [id number] Exam Date: 10/29/2024 09:55 Report Date: 10/29/2024 09:56 At the request of: AQUILES CAMPBELL DO Procedure: US OB BPP w non-stress Biophysical profile. Reason for exam: Excessive growth COMPARISON: 10/22/2024 TECHNIQUE: Transabdominal imaging of the gravid uterus was obtained. FINDINGS: The swinging cut off saw operator reports a BPP of 8 out of 8. FRANK is normal at 13.3 cm. heart rate 135 bpm. US/US OB BPP w non-stress IMPRESSION: BPP 8 out of 8. Impression dictated by: Campos Hall Jr., D.O. 10/29/2024 9:56 AM Dictation Location: [place] [address] Electronically authenticated by: [id number] Y Date: 10/29/2024 09:56 Dictated By: Campos Hall M.D. Signed By: 10/29/24 0959 DD/ TD/TT: Design Printing Machine Set Up Operator: [facility] Radiology, Radiologist, MD - 10/29/2024 [place] [address] Ultrasound Report Signed Patient: ED MURPHY MR#: [id number] : 1990 Acct:[id number] Age/Sex: 33 / F ADM Date: 10/29/24 Loc: [facility] 250-[address]: Aquiles Campbell D.O. Ordering Physician: Aquiles Campbell D.O. Date of Service: 10/29/24 Procedure(s): US OB BPP w non-stress Accession Number(s): [id number] cc: Aquiles Campbell D.O.; Physician,Non-Staff [place] [facility] [place] [id number] Patient Name: ED MURPHY MRN: [facility]:[id number] date: 1990 Sex: F Assigned Patient Location: [facility] Current Patient Location: [facility] Accession/Order Number: [id number] Exam Date: 10/29/2024 09:55 Report Date: 10/29/2024 09:56 At the request of: AQUILES CAMPBELL DO Procedure: US OB BPP w non-stress Biophysical profile. Reason for exam: Excessive growth COMPARISON: 10/22/2024 TECHNIQUE: Transabdominal imaging of the gravid uterus was obtained. FINDINGS: The swinging cut off saw operator reports a BPP of 8 out of 8. FRAKN is normal at 13.3 cm. heart rate 135 bpm. US/US OB BPP w non-stress IMPRESSION: BPP 8 out of 8. Impression dictated by: Camops Hall Jr., D.O. 10/29/2024 9:56 AM Dictation Location: [place] [address] Electronically authenticated by: [id number] Y Date: 10/29/2024 09:56 Dictated By: Campos Hall M.D. Signed By: 10/29/24 0959 DD/ TD/TT: Design Printing Machine Set Up Operator: [facility] Radiology Study observation (narrative) [facility] US OB BPP W NON-STRESS Ordered By: Radiologist Radiology on 10-29-2024 [facility] Work Phone: Urinalysis macro (dipstick) panel (U)on 10-28-2024 Bilirubin, UA Negative Negative - 4(70) +++ mg/dL [facility] Blood, UA Negative Negative - 50 Alex/mcL [facility] Clarity, UA Clear [facility] Color, UA Yellow [facility] Glucose, UA Negative Negative - 2000(110) ++++ mg/dL [facility] Interpretation and review of laboratory results Normal [facility] Ketones, UA Negative Negative - 160(16) ++++ mg/dL [facility] Leukocytes, UA Negative Negative - 500+++ Jodi/mcL [facility] Nitrite, UA Negative Negative - Positive [facility] pH, UA 5.5 5 - 9 [facility] Protein, UA Negative Negative - 2000(20) ++++ mg/dL [facility] Spec Grav, UA 1.02 1 - 1.03 [facility] Urobilinogen, UA 1.0 0.2 - 12 mg/dL [facility] US OB BPP W NON-STRESS on 10-22-2024 [place] [address] Ultrasound Report Signed Patient: ED MURPHY MR#: [id number] : 1990 Acct:[id number] Age/Sex: 33 / F ADM Date: 10/22/24 Loc: [facility] 254-[address]: Aquiles Campbell D.O. Ordering Physician: Aquiles Campbell D.O. Date of Service: 10/22/24 Procedure(s): US OB BPP w non-stress Accession Number(s): [id number] cc: Aquiles Campbell D.O.; Physician,Non-Staff [place] [facility] [place] [id number] Patient Name: ED MURPHY MRN: [facility]:[id number] date: 1990 Sex: F Assigned Patient Location: [facility] Current Patient Location: [facility] Accession/Order Number: [id number] Exam Date: 10/22/2024 10:02 Report Date: 10/22/2024 [...] Torre M.D. 10/22/2024 10:04 AM Dictation Location: [place] [address] Electronically authenticated by: [id number] Y Date: 10/22/2024 10:04 Dictated By: Alexus De La Torre M.D. Signed By: 10/22/24 1007 DD/ 1004 TD/TT: Design Printing Machine Set Up Operator: [facility] Radiology, Radiologist, - 10/22/2024 [place] [address] Ultrasound Report Signed Patient: ED MURPHY MR#: [id number] : 1990 Acct:[id number] Age/Sex: 33 / F ADM Date: 10/22/24 Loc: [facility] 254-[address]: Aquiles Campbell D.O. Ordering Physician: Aquiles Campbell D.O. Date of Service: 10/22/24 Procedure(s): US OB BPP w non-stress Accession Number(s): [id number] cc: Aquiles Campbell D.O.; Physician,Non-Staff [place] [address] Patient Name: ED MURPHY MRN: [facility]:[id number] date: 1990 Sex: F Assigned Patient Location: [facility] Current Patient Location: [facility] Accession/Order Number: [id number] Exam Date: 10/22/2024 10:02 Report Date: 10/22/2024 [...] Torre M.D. 10/22/2024 10:04 AM Dictation Location: [place] [address] Electronically authenticated by: [id number] Y Date: 10/22/2024 10:04 Dictated By: Alexus De La Torre M.D. Signed By: 10/22/24 1007 DD/ 1004 TD/TT: Design Printing Machine Set Up Operator: [facility] Radiology Study observation (narrative) [facility] US OB BPP W NON-STRESS Ordered By: Radiologist Radiology on 10-22-2024 [facility] Work Phone: Urinalysis macro (dipstick) panel (U)on 10-21-2024 Bilirubin, UA Negative Negative - 4(70) +++ mg/dL [facility] Blood, UA Negative Negative - 50 Alex/mcL [facility] Clarity, UA Clear [facility] Color, UA Yellow [facility] Glucose, UA Negative Negative - 2000(110) ++++ mg/dL [facility] Interpretation and review of laboratory results Normal [facility] Ketones, UA Negative Negative - 160(16) ++++ mg/dL [facility] Leukocytes, UA Negative Negative - 500+++ Jodi/mcL [facility] Nitrite, UA Negative Negative - Positive [facility] pH, UA 6.5 5 - 9 [facility] Protein, UA Negative Negative - 2000(20) ++++ mg/dL [facility] Spec Grav, UA 1.01 1 - 1.03 [facility] Urobilinogen, UA 0.2 0.2 - 12 mg/dL [facility] US OB BPP W NON-STRESS on 10-16-2024 [place] [address] Ultrasound Report Signed Patient: ED MURPHY MR#: [id number] : 1990 Acct:[id number] Age/Sex: 33 / F ADM Date: 10/15/24 Loc: US Attending Dr: Aquiles Campbell D.O. Ordering Physician: Aquiles Campbell D.O. Date of Service: 10/15/24 Procedure(s): US OB BPP w non-stress Accession Number(s): [id number] cc: Aquiles Campbell D.O.; Physician,Non-Staff [place] [id number] Patient Name: ED MURPHY MRN: [facility]:[id number] date: 1990 Sex: F Assigned Patient Location: Current Patient Location: Accession/Order Number: [id number] Exam Date: 10/16/2024 07:14 Report Date: 10/16/2024 [...] Torre M.D. 10/16/2024 7:15 AM Dictation Location: [place] [address] Electronically authenticated by: [id number] Y Date: 10/16/2024 07:15 Dictated By: Alexus De La Torre M.D. Signed By: 10/16/24716 DD/ 4 TD/TT: Design Printing Machine Set Up Operator: [facility] Radiology, Radiologist, MD - 10/16/2024 [place] [address] Ultrasound Report Signed Patient: ED MURPHY MR#: [id number] : 1990 Acct:[id number] Age/Sex: 33 / F ADM Date: 10/15/24 Loc: US Attending Dr: Aquilse Campbell D.O. Ordering Physician: Aquiles Campbell D.O. Date of Service: 10/15/24 Procedure(s): US OB BPP w non-stress Accession Number(s): [id number] cc: Aquiles Campbell D.O.; Physician,Non-Staff [place] [address] Patient Name: ED MURPHY MRN: [facility]:[id number] date: 1990 Sex: F Assigned Patient Location: Current Patient Location: Accession/Order Number: [id number] Exam Date: 10/16/2024 07:14 Report Date: 10/16/2024 [...] Torre M.D. 10/16/2024 7:15 AM Dictation Location: [place] [address] Electronically authenticated by: [id number] Y Date: 10/16/2024 07:15 Dictated By: Alexus De La Torre M.D. Signed By: 10/16/24 0717 DD/ 4 TD/TT: Design Printing Machine Set Up Operator: [facility] Radiology Study observation (narrative) [facility] US OB BPP W NON-STRESS Ordered By: Radiologist Radiology on 10-16-2024 [facility] Work Phone: US OB FOLLOW UP TRANSABDOMIN AL APPROACHon 10-14-2024 [...] UA Negative Negative - 4(70) +++ mg/dL [facility] Blood, UA Negative Negative - 50 Alex/mcL [facility] Clarity, UA Cloudy [facility] Color, UA Yellow [facility] Glucose, UA Negative Negative - 2000(110) ++++ mg/dL [facility] Interpretation and review of laboratory results Normal [facility] Ketones, UA Negative Negative - 160(16) ++++ mg/dL [facility] Leukocytes, UA Negative Negative - 500+++ Jodi/mcL [facility] Nitrite, UA Negative Negative - Positive [facility] pH, UA 6.5 5 - 9 [facility] Protein, UA Negative Negative - 1999(20) ++++ mg/dL [facility] Spec Grav, UA 1.01 1 - 1.03 [facility] Urobilinogen, UA 0.2 0.2 - 12 mg/dL [facility] OB BPP W NON-STRESS on 10-09-2024 [place] [address] Ultrasound Report Signed Patient: ED MURPHY MR#: [id number] : 1990 Acct:[id number] Age/Sex: 33 / F ADM Date: 10/08/24 Loc: US Attending Dr: Aquiles Campbell D.O. Ordering Physician: Aquiles Campbell D.O. Date of Service: 10/08/24 Procedure(s): US OB BPP w non-stress Accession Number(s): [id number] cc: Aquiles Campbell D.O.; Physician,Non-Staff M.DAp [place] [address] Patient Name: ED MURPHY MRN: [facility]:[id number] date: 1990 Sex: F Assigned Patient Location: Current Patient Location: Accession/Order Number: [id number] Exam Date: 10/09/2024 07:51 Report Date: 10/09/2024 [...] amniotic fluid greater than 2 cm [Y] 2 FRANK: 20.0 cm. This is in upper normal range. Total score: 11/15 US/US OB BPP w non-stress IMPRESSION: NORMAL BIOPHYSICAL PROFILE Impression dictated by: Alexus De La Torre M.D. 10/09/2024 7:52 AM Dictation Location: [place] [address] Electronically authenticated by: [id number] Y Date: 10/09/2024 07:52 Dictated By: Alexus De La Torre M.D. Signed By: 10/09/24 0945 DD/ 0752 TD/TT: Design Printing Machine Set Up Operator: [facility] Radiology, Radiologist, MD - 10/09/2024 [place] [address] Ultrasound Report Signed Patient: ED MURPHY MR#: [id number] : 1990 Acct:[id number] Age/Sex: 33 / F ADM Date: 10/08/24 Loc: US Attending Dr: Aquiles Campbell D.O. Ordering Physician: Aquiles Campbell D.O. Date of Service: 10/08/24 Procedure(s): US OB BPP w non-stress Accession Number(s): [id number] cc: Aquiles Campbell D.O.; Physician,Non-Staff [place] [facility] [place] [id number] Patient Name: ED MURPHY MRN: [facility]:[id number] date: 1990 Sex: F Assigned Patient Location: US Current Patient Location: Accession/Order Number: [id number] Exam Date: 10/09/2024 07:51 Report Date: 10/09/2024 [...] Torre M.D. 10/09/2024 7:52 AM Dictation Location: [place] [address] Electronically authenticated by: [id number] Y Date: 10/09/2024 07:52 Dictated By: Alexus De La Torre M.D. Signed By: 10/09/24 0945 DD/ 0752 TD/TT: Design Printing Machine Set Up Operator: [facility] Radiology Study observation (narrative) [facility] US OB BPP W NON-STRESS Ordered By: Radiologist Radiology on 10-09-2024 [facility] Work Phone: US OB BPP W NON-STRESS on 10-02-2024 [place] [address] Ultrasound Report Signed Patient: ED MURPHY MR#: [id number] : 1990 Acct:[id number] Age/Sex: 33 / F ADM Date: 10/01/24 Loc: US Attending Dr: Aquiles Campbell D.O. Ordering Physician: Aquiles Campbell D.O. Date of Service: 10/01/24 Procedure(s): US OB BPP w non-stress Accession Number(s): [id number] cc: Aquiles Campbell D.O.; Physician,Non-Staff M.Dario [place] [id number] Patient Name: ED MURPHY MRN: [facility]:[id number] date: 1990 Sex: F Assigned Patient Location: [facility] Current Patient Location: Accession/Order Number: [id number] Exam Date: 10/02/2024 08:04 Report Date: 10/02/2024 [...] Torre M.D. 10/02/2024 8:07 AM Dictation Location: [place] [address] Electronically authenticated by: [id number] Y Date: 10/02/2024 08:07 Dictated By: Alexus De La Torre M.D. Signed By: 10/02/24 0810 DD/ 0807 TD/TT: Design Printing Machine Set Up Operator: [facility] Radiology, Radiologist, MD - 10/02/2024 [place] [address] Ultrasound Report Signed Patient: ED MURPHY MR#: [id number] : 1990 Acct:[id number] Age/Sex: 33 / F ADM Date: 10/01/24 Loc: US Attending Dr: Aquiles Campbell D.O. Ordering Physician: Aquiles Campbell D.O. Date of Service: 10/01/24 Procedure(s): US OB BPP w non-stress Accession Number(s): [id number] cc: Aquiles Campbell D.O.; Physician,Non-Staff [place] [id number] Patient Name: ED MURPHY MRN: [facility]:[id number] date: 1990 Sex: F Assigned Patient Location: [facility] Current Patient Location: Accession/Order Number: [id number] Exam Date: 10/02/2024 08:04 Report Date: 10/02/2024 [...] Torre M.D. 10/02/2024 8:07 AM Dictation Location: [place] [address] Electronically authenticated by: [id number] Y Date: 10/02/2024 08:07 Dictated By: Alexus De La Torre M.D. Signed By: 10/02/24 0810 DD/ 6 TD/TT: Design Printing Machine Set Up Operator: [facility] Radiology Study observation (narrative) [facility] US OB BPP W NON-STRESS Ordered By: Radiologist Radiology on 10-02-2024 [facility] Work Phone: Urinalysis macro (dipstick) panel (U)on 09-30-2024 Bilirubin, UA Negative Negative - 4(70) +++ mg/dL [facility] Blood, UA Negative Negative - 50 Alex/mcL [facility] Clarity, UA Clear [facility] Color, UA Yellow [facility] Glucose, UA Negative Negative - 2000(110) ++++ mg/dL [facility] Interpretation and review of laboratory results Abnormal [facility] Ketones, UA Positive Negative - 160(16) ++++ mg/dL [facility] Comment on above: 15mg/dL Leukocytes, UA Negative Negative - 500+++ Jodi/mcL [facility] Nitrite, UA Negative Negative - Positive [facility] pH, UA 6 5 - 9 [facility] Protein, UA Negative Negative - 2000(20) ++++ mg/dL [facility] Spec Grav, UA 1.02 1 - 1.03 [facility] Urobilinogen, UA 0.2 0.2 - 12 mg/dL [facility] US OB BPP W NON-STRESS on 09-25-2024 [place] [address] Ultrasound Report Signed Patient: ED MURPHY MR#: [id number] : 1990 Acct:[id number] Age/Sex: 33 / F ADM Date: 09/24/24 Loc: US Attending Dr: Aquiles Campbell D.O. Ordering Physician: Aquiles Campbell D.O. Date of Service: 09/24/24 Procedure(s): US OB BPP w non-stress Accession Number(s): [id number] cc: Aquiles Campbell D.O.; Physician,Non-Staff M.DAp The [address] [address] Patient Name: DE MURPHY MRN: [facility]:[id number] date: 1990 Sex: F Assigned Patient Location: US Current Patient Location: Accession/Order Number: [id number] Exam Date: 09/25/2024 07:56 Report Date: 09/25/2024 [...] Swartz M.D. 09/25/2024 7:58 AM Dictation Location[facility] Electronically authenticated by: [id number] Y Date: 09/25/2024 07:58 Dictated By: Manuel Swartz D.O. Signed By: 09/25/24 0800 DD/ 0758 TD/TT: Design Printing Machine Set Up Operator: [facility] Radiology, Radiologist, MD - 09/25/2024 [place] [address] Ultrasound Report Signed Patient: ED MURPHY MR#: [id number] : 1990 Acct:[id number] Age/Sex: 33 / F ADM Date: 09/24/24 Loc: US Attending Dr: Aquiles Campbell D.O. Ordering Physician: Aquiles Campbell D.O. Date of Service: 09/24/24 Procedure(s): US OB BPP w non-stress Accession Number(s): [id number] cc: Aquiles Campbell D.O.; Physician,Non-Staff [place] The [address] [address] Patient Name: ED MURPHY MRN: [facility]:[id number] date: 1990 Sex: F Assigned Patient Location: US Current Patient Location: Accession/Order Number: [id number] Exam Date: 09/25/2024 07:56 Report Date: 09/25/2024 07:58 At the request of: AQUILES ADRIAN DO [...] Swartz M.D. 09/25/2024 7:58 AM Dictation Location: [employer] Electronically authenticated by: [id number] Y Date: 09/25/2024 07:58 Dictated By: Manuel Swartz D.O. Signed By: 09/25/24 0800 DD/ 0758 TD/TT: Design Printing Machine Set Up Operator: [facility] Radiology Study observation (narrative) [facility] US OB BPP W NON-STRESS Ordered By: Radiologist Radiology on 09-25-2024 [facility] Work Phone: US OB FOLLOW UP [...] II, MD, PHD at 18-Sep-2024 08:23:43 AM [facility] Normal Not Available Comment on above: Order Comment: US OB SCAN FOR GROWTH Estimated Date of Delivery: 11/17/24 Gestational Age as of 08/27/2024: 28w2d Urinalysis macro (dipstick) panel (U)on 09-17-2024 Bilirubin, UA Negative Negative - 4(70) +++ mg/dL [facility] Blood, UA Negative Negative - 50 Alex/mcL [facility] Clarity, UA Clear [facility] Color, UA Yellow [facility] Glucose, UA Negative Negative - 2000(110) ++++ mg/dL [facility] Interpretation and review of laboratory results Normal [facility] Ketones, UA Negative Negative - 160(16) ++++ mg/dL [facility] Leukocytes, UA Negative Negative - 500+++ Jodi/mcL [facility] Nitrite, UA Negative Negative - Positive [facility] pH, UA 7 5 - 9 [facility] Protein, UA Negative Negative - 2000(20) ++++ mg/dL [facility] Spec Grav, UA 1.01 1 - 1.03 [facility] Urobilinogen, UA 0.2 0.2 - 12 mg/dL [facility] HEMOGLOBIN A1Con 025 Glucose [Mass/Vol] 114 mg/dL [facility] HbA1c (Bld) [Mass fraction] 5.6 % 4.5 - 6.2 % [facility] Comment on above: ADA RECOMMENDED LIMI T 4.0 - 6.0 ADA THERAPEUTIC TARGET < 7.0 ACTION SUGGESTED > 7.0 [facility] Urinalysis macro (dipstick) panel (U)Ordered By: Daniel Pereira on 08-27-2024 Bilirubin, UA Negative Negative - 4(70) +++ mg/dL [facility] Work Phone: Blood, UA Negative Negative - 50 Alex/mcL [facility] Work Phone: Clarity, UA Clear [facility] Work Phone: Color, UA Yellow [facility] Work Phone: Glucose, UA Negative Negative - 1999(110) ++++ mg/dL [facility] Work Phone: Interpretation and review of laboratory results Normal [facility] Work Phone: Ketones, UA Negative Negative - 160(16) ++++ mg/dL [facility] Work Phone: Leukocytes, UA Negative Negative - 500+++ Jodi/mcL [facility] Work Phone: Nitrite, UA Negative Negative - Positive [facility] Work Phone: pH, UA 6.5 5 - 9 [facility] Work Phone: Protein, UA Negative Negative - 1999(20) ++++ mg/dL [facility] Work Phone: Spec Grav, UA 1.015 1 - 1.03 [facility] Work Phone: Urobilinogen, UA 0.2 0.2 - 12 mg/dL [facility] Work Phone: [facility] Work Phone: US OB LIMITED 1+ FETUSESon [...] II, MD, PHD at 01-Aug-2024 11:20:36 PM [facility] Normal Not Available Comment on above: Order Comment: US OB INCOMPLETE ANATOMY Estimated Date of Delivery: 8/10/25 Gestational Age as of 07/08/2024: 21w1d RECURRENT VAGINITIS (HTRX)on 06-04-2024 ATOPOBIUM VAGINAE 0 [facility] ATOPOBIUM VAGINAE Not detected [facility] BVAB 2,3 (BACTERIAL VAGINOSIS ASSOCIATED BACTERIA 2, 3); MOBILUNCUS SPP 0 [facility] BVAB 2,3 (BACTERIAL VAGINOSIS ASSOCIATED BACTERIA 2, 3); MOBILUNCUS SPP Not detected [facility] NICA ALBICANS, PARAPSILOSIS, TROPICALIS 0 [facility] NICA ALBICANS, PARAPSILOSIS, TROPICALIS Not detected [facility] NICA GLABRATA 0 [facility] NICA GLABRATA Not detected [facility] NICA KRUSEI 0 [facility] NICA KRUSEI Not detected [facility] CHLAMYDIA TRACHOMATIS 0 [facility] CHLAMYDIA TRACHOMATIS Not detected [facility] GARDNERELLA VAGINALIS 29.376 Abnormal [facility] GARDNERELLA VAGINALIS Detected Abnormal [facility] Interpretation and review of laboratory results Abnormal [facility] MEGASPHAERA (TYPES 1, 2) 0 [facility] MEGASPHAERA (TYPES 1, 2) Not detected [facility] MYCOPLASMA GENITALIUM 0 [facility] MYCOPLASMA GENITALIUM Not detected [facility] NEISSERIA GONORRHOEAE 0 [facility] NEISSERIA GONORRHOEAE Not detected [facility] TRICHOMONAS VAGINALIS 0 [facility] TRICHOMONAS VAGINALIS Not detected [facility] US OB 14+ WEEKS ANATOMY SCAN [...] II, MD, PHD at 02-Jul-2024 09:56:12 AM [facility] Normal Not Available Comment on above: Order Comment: US OB ANATOMY SINGLE W US OB CERVICAL LENGTH Estimated Date of Delivery: 11/17/24 Gestational Age as of 06/03/2024: 16w1d Urinalysis macro (dipstick) panel (U)on 06-03-2024 Bilirubin, UA Negative Negative - 4(70) +++ mg/dL [facility] Blood, UA Positive Negative - 50 Alex/mcL [facility] Comment on above: trace-intact Clarity, UA Clear [facility] Color, UA Yellow [facility] Glucose, UA Negative Negative - 2000(110) ++++ mg/dL [facility] Interpretation and review of laboratory results Abnormal [facility] Ketones, UA Positive Negative - 160(16) ++++ mg/dL [facility] Comment on above: 15mg/dL Leukocytes, UA Negative Negative - 500+++ Jodi/mcL [facility] Nitrite, UA Negative Negative - Positive [facility] pH, UA 5.5 5 - 9 [facility] Protein, UA Negative Negative - 2000(20) ++++ mg/dL [facility] Spec Grav, UA 1.02 1 - 1.03 [facility] Urobilinogen, UA 0.2 0.2 - 12 mg/dL [facility] Urinalysis macro (dipstick) panel (U)on 05-02-2024 Bilirubin, UA Trace Negative - 4(70) +++ mg/dL [facility] Blood, UA Negative Negative - 50 Alex/mcL [facility] Clarity, UA Clear [facility] Color, UA Yellow [facility] Glucose, UA Negative Negative - 1999(110) ++++ mg/dL [facility] Interpretation and review of laboratory results Abnormal [facility] Ketones, UA Positive Negative - 160(16) ++++ mg/dL [facility] Leukocytes, UA Negative Negative - 500+++ Jodi/mcL [facility] Nitrite, UA Negative Negative - Positive [facility] pH, UA 6 5 - 9 [facility] Protein, UA Positive Negative - 1999(20) ++++ mg/dL [facility] Spec Grav, UA 1.03 1 - 1.03 [facility] Urobilinogen, UA 0.2 0.2 - 12 mg/dL [facility] ALL CBC WITH AUTO DIFFon BASOPHILS ABSOLUTE AUTO 0 [facility] Basophils/100 WBC (Bld) 0.4 % 0.2 - 2.0 % [facility] Eosinophils/100 WBC (Bld) 0.6 % Low 0.9 - 7.0 % [facility] Erythrocyte distribution width (RBC) [Ratio] 14.1 % 11.0 - 15.0 % [facility] Hematocrit (Bld) [Volume fraction] 40.6 % 36.0 - 48.0 % [facility] Hemoglobin (Bld) [Mass/Vol] 13.1 g/dL 12.0 - 16.0 g/dL [facility] IMMATURE GRANULOCYTES ABS AUTO 0.03 [facility] Immature granulocytes/100 WBC (Bld) 0.3 % 0.0 - 0.5 % [facility] Interpretation and review of laboratory results Abnormal [facility] LYMPHOCYTES ABSOLUTE AUTO 1.9 [facility] Lymphocytes/100 WBC (Bld) 19.1 % Low 20.5 - 60.0 % [facility] MCH (RBC) [Entitic mass] 27.9 pg 26.7 - 34.0 pg [facility] MCHC (RBC) [Mass/Vol] 32.3 g/dL 29.9 - 35.2 g/dL [facility] MCV (RBC) [Entitic vol] 86.6 fL 81.0 - 99.0 fL [facility] MONOCYTES ABSOLUTE AUTO 0.5 [facility] Monocytes/100 WBC (Bld) 5.4 % 1.7 - 12.0 % [facility] NEUTROPHILS ABSOLUTE AUTO 7.4 High [facility] Neutrophils/100 WBC (Bld) 74.2 % 43.0 - 75.0 % [facility] Platelet mean volume (Bld) [Entitic vol] 9.3 fL Low 9.5 - 13.5 fL [facility] TBH EO # 0.1 [facility] PLT 380 [facility] RBC 4.69 [facility] WBC 9.9 [facility] US OB TRANSVAGINALon 025 US OB [...] x 3.6 cm (8 weeks, 0 days). [place] rump length is 1.8 cm (8 weeks, [...] (U) No Growth 2 Days PERFORMED BY: [place] [id number] PATHOLOGIST WELT SOLE LAYER TOSHA PÉREZ M.D. Normal [facility] Comment on above: Performed By: #### C UU #### [address] [address] [facility] TB PREG QUANT HCGon 024 HCG QUANTITATIVE 7110 mIU/mL [facility] Comment on above: 5-50 0.2-1 WEEK 50-500 1-2 WEEKS 100-5,000 2-3 WEEKS 500-10,000 3-4 WEEKS 1,000-50,000 4-5 WEEKS 10,000-100,000 5-6 WEEKS 15,000-200,000 6-8 WEEKS 10,000-100,000 2-3 MONTHS [facility] PREG QUANT HCGon 024 HCG QUANTITATIVE 5107 mIU/mL [facility] Comment on above: 5-50 0.2-1 WEEK 50-500 1-2 WEEKS 100-5,000 2-3 WEEKS 500-10,000 3-4 WEEKS 1,000-50,000 4-5 WEEKS 10,000-100,000 5-6 WEEKS 15,000-200,000 6-8 WEEKS 10,000-100,000 2-3 MONTHS [facility] PREG QUANT HCGon 024 HCG QUANTITATIVE 2902 mIU/mL [facility] Comment on above: 5-50 0.2-1 WEEK 50-500 1-2 WEEKS 100-5,000 2-3 WEEKS 500-10,000 3-4 WEEKS 1,000-50,000 4-5 WEEKS 10,000-100,000 5-6 WEEKS 15,000-200,000 6-8 WEEKS 10,000-100,000 2-3 MONTHS [facility] PREG QUANT HCGon 024 HCG QUANTITATIVE 1345 mIU/mL [facility] Comment on above: 5-50 0.2-1 WEEK 50-500 1-2 WEEKS 100-5,000 2-3 WEEKS 500-10,000 3-4 WEEKS 1,000-50,000 4-5 WEEKS 10,000-100,000 5-6 WEEKS 15,000-200,000 6-8 WEEKS 10,000-100,000 2-3 MONTHS [facility] PREG QUANT HCGon 024 HCG QUANTITATIVE 420 mIU/mL [facility] Comment on above: 5-50 0.2-1 WEEK 50-500 1-2 WEEKS 100-5,000 2-3 WEEKS 500-10,000 3-4 WEEKS 1,000-50,000 4-5 WEEKS 10,000-100,000 5-6 WEEKS 15,000-200,000 6-8 WEEKS 10,000-100,000 2-3 MONTHS [facility] PREG QUANT HCGon 024 HCG QUANTITATIVE 184 mIU/mL [facility] Comment on above: 5-50 0.2-1 WEEK 50-500 1-2 WEEKS 100-5,000 2-3 WEEKS 500-10,000 3-4 WEEKS 1,000-50,000 4-5 WEEKS 10,000-100,000 5-6 WEEKS 15,000-200,000 6-8 WEEKS 10,000-100,000 2-3 MONTHS [facility] PREG QUANT HCGon 024 HCG QUANTITATIVE 59 mIU/mL [facility] Comment on above: 5-50 0.2-1 WEEK 50-500 1-2 WEEKS 100-5,000 2-3 WEEKS 500-10,000 3-4 WEEKS 1,000-50,000 4-5 WEEKS 10,000-100,000 5-6 WEEKS 15,000-200,000 6-8 WEEKS 10,000-100,000 2-3 MONTHS [facility] ALL PROGESTERONEon 4 PROGESTERONE 9.3 ng/mL . [facility] Comment on above: Follicular phase 0.1 - 0.9 Luteal phase 1.8 - 23.9 Ovulation phase 0.1 - 12.0 First trimester 11.0 - 44.3 Second trimester 25.4 - 83.3 Third trimester 58.7 - 214.0 Postmenopausal 0.0 - 0.1 Performed at: [address] [id number] Overhead Distribution Engineer: Josr Jarvis PhD, Phone: [phone] [facility] IGP,APTIMA HPV,AGE GDLNon AGE GDLN ACOG TESTING Note . [facility] Comment on above: TESTS RESULT FLAG UN ITS REF RANGE LAB Clinician Provided Cytology Information Source.............Cervix;Endocervix No. of containers..01 ThinPrep Vial Age Algo ACOG Jacinta... FLAG LEGEND: L-Low Normal,H-High Normal,LL-Alert Low,HH-Alert High <-Panic Low,>-Panic High,A-Abnormal,AA-Critical Abnormal Performed at: 01 =[address] [address] Stacey Tao MD, HPV APTIMA Negative Negative [facility] Comment on above: This nucleic acid am plification test detects fourteen high- risk HPV types (16,18,31,33,35,39,45,51,52,56,58,59,66,68) without differentiation. Performed at: =[address] [id number] Overhead Distribution Engineer: Stacey Tao MD, Phone: [phone] Performed at: [facility] [address] [facility], [place] [id number] Overhead Distribution Engineer: Stacey Tao MD, Phone: [phone] IGP, APTIMA HPV, RFX 16/18,45 Note . [facility] Comment on above: TESTS RESULT FLAG UN ITS REF RANGE LAB DIAGNOSIS: 02 NEGATIVE FOR INTRAEPITHELIAL LESION OR MALIGNANCY. Specimen adequacy: 02 Satisfactory for evaluation. Endocervical and/or squamous metaplastic cells (endocervical component) are present. Performed by: Jonathan Mancilla, [employer]ement Production Plant Operator (ASCP) . 02 Note: Note 02 [...] High,A-Abnormal,AA-Critical Abnormal Performed at: 02 [address] [facility] [address] [place] [address] Stacey Tao MD, BRUSH-SPATULA CERVIX ENDOCERVIX [facility] DHEA-SULFATEon 08-23-2022 DHEA-Sulfate 352.0 ug/dL Normal 84.8-378.0 [facility] Comment on above: Performed By: #### L BCL #### [facility] [address] [place] [address] Dr. Nam Keenan FSHon 08-23-2022 FSH 6.7 mIU/mL Normal [facility] Comment on above: Result Comment: Adul t Female: Follicular phase 3.5 - 12.5 Ovulation phase 4.7 - 21.5 Luteal phase 1.7 - 7.7 Postmenopausal 25.8 - 134.8 Performed By: #### L BCFS #### [facility] [address] [place] [address] Dr. Nam Keenan LUTEINIZING HORMONE (LH)on 0 08-23-2022 LH 13.7 mIU/mL Normal [facility] Comment on above: Result Comment: Adul t Female: Follicular phase 2.4 - 12.6 Ovulation phase 14.0 - 95.6 Luteal phase 1.0 - 11.4 Postmenopausal 7.7 - 58.5 Performed By: #### L BCLH #### [facility] [address] [place] [address] Dr. Nam Keenan CBC AUTO DIFFon 08-22-2022 BASO # 0.1 103/ul Normal 0.0-0.1 [facility] Comment on above: Performed By: #### L BCL #### [facility] [address] [place] [address] Dr. Nam Keenan Basophils/100 WBC (Bld) 0.7 % Normal 0.2-2.0 [facility] Comment on above: Performed By: #### L BCLH #### [facility] [address] [place] [address] Dr. Nam Keenan EO # 0.3 103/ul Normal 0.0-0.7 [facility] Comment on above: Performed By: #### L BCLH #### [facility] [address] [place] [address] Dr. Nam Keenan Eosinophils/100 WBC (Bld) 3.9 % Normal 0.9-7.0 [facility] Comment on above: Performed By: #### L BCLH #### [facility] [address] [place] [address] Dr. Nam Keenan Erythrocyte distribution width (RBC) [Ratio] 13.3 % Normal 11.0-15.0 [facility] Comment on above: Performed By: #### L BCLH #### [facility] [address] [place] [address] Dr. Nam Keenan Hematocrit (Bld) [Volume fraction] 38.7 % Normal 36.0-48.0 [facility] Comment on above: Performed By: #### L BCLH #### [facility] [address] [place] [address] Dr. Nam Keenan Hemoglobin (Bld) [Mass/Vol] 12.4 g/dL Normal 12.0-16.0 [facility] Comment on above: Performed By: #### L BCL #### [facility] [address] [place] [address] Dr. Nam Keenan IG # 0.01 10e3/ul Normal 0.00-0.03 [facility] Comment on above: Performed By: #### L BCLH #### [facility] [address] [place] [address] Dr. Nam Keenan IG % 0.1 % Normal 0.0-0.5 [facility] Comment on above: Performed By: #### L BCLH #### [facility] [address] [place] [address] Dr. Nam Keenan LYMPH # 2.9 103/ul Normal 1.2-3.8 [facility] Comment on above: Performed By: #### L BCLH #### [facility] [address] [place] [address] Dr. Nam Keenan Lymphocytes/100 WBC (Bld) 34.4 % Normal 20.5-60.0 [facility] Comment on above: Performed By: #### L BCLH #### [facility] [address] [place] [address] Dr. Nam Keenan MANUAL DIFF REQ NO Normal [facility] Comment on above: Performed By: #### L BCLH #### [facility] [address] [place] [address] Dr. Nam Keenan MCH (RBC) [Entitic mass] 27.8 pg Normal 26.7-34.0 [facility] Comment on above: Performed By: #### L BCLH #### [facility] [address] [place] [address] Dr. Nam Keenan MCHC (RBC) [Mass/Vol] 32.0 g/dL Normal 29.9-35.2 [facility] Comment on above: Performed By: #### L BCLH #### [facility] [address] [place] [address] Dr. Nam Keenan MCV (RBC) [Entitic vol] 86.8 fL Normal 81.0-99.0 [facility] Comment on above: Performed By: #### L BCLH #### [facility] [address] [place] [address] Dr. Nam Keenan MONO # 0.6 103/ul Normal 0.3-0.8 [facility] Comment on above: Performed By: #### L BCLH #### [facility] [address] [place] [address] Dr. Nam Keenan Monocytes/100 WBC (Bld) 6.7 % Normal 1.7-12.0 [facility] Comment on above: Performed By: #### L BCL #### [facility] [address] [place] [address] Dr. Nam Keenan NEUT # 4.6 103/ul Normal 1.4-6.5 [facility] Comment on above: Performed By: #### L BCLH #### [facility] [address] [place] [address] Dr. Nam Keenan Neutrophils/100 WBC (Bld) 54.2 % Normal 43.0-75.0 [facility] Comment on above: Performed By: #### L BCLH #### [facility] [address] [place] [address] Dr. Nam Keenan Platelet mean volume (Bld) [Entitic vol] 9.6 fL Normal 9.5-13.5 [facility] Comment on above: Performed By: #### L BCL #### [facility] [address] [place] [address] Dr. Nam Keenan PLT 335 103/ul Normal 150-450 [facility] Comment on above: Performed By: #### L BCLH #### [facility] [address] [place] [address] Dr. Nam Keenan RBC 4.46 106/ul Normal 4.20-5.[address] [facility] Comment on above: Performed By: #### L BCLH #### [facility] [address] [place] [address] Dr. Nam Keenan WBC 8.5 103/ul Normal 4.0-11.0 [facility] Comment on above: Performed By: #### L AMYH #### [facility] [address] [place] [address] Dr. Nam Keenan FREE T4on 08-22-2022 Free T4 [Mass/Vol] 1.14 ng/dL Normal 0.76-1.46 [facility] Comment on above: Performed By: #### L AMY #### [facility] [address] [place] [address] Dr. Nam Keenan GLYCOHEMOGLOBIN A1Con 2022 ADA RECOMMENDATION SEE BELOW Normal [facility] Comment on above: Result Comment: ADA RECOMMENDED LIMIT 4.0 - 6.0 ADA THERAPEUTIC TARGET < 7.0 ACTION SUGGESTED > 7.0 Performed By: #### A 1C #### [facility] [address] [place] [address] Dr. Nam Keenan Glucose [Mass/Vol] 97 mg/dL Normal [facility] Comment on above: Performed By: #### A 1C #### [facility] [address] [place] [address] Dr. Nam Keenan HbA1c (Bld) [Mass fraction] 5.0 % Normal 4.5-6.2 [facility] Comment on above: Performed By: #### A 1C #### [facility] [address] [place] [address] Dr. Nam Keenan PREG QUANT HCGon 08-22-2022 HCG QUANT <1 Normal [facility] Comment on above: Performed By: #### P REGQNT, TSH #### [facility] [address] [place] [address] Dr. Nam Keenan HCG RANGE SEE BELOW Normal [facility] Comment on above: Result Comment: 5-50 0.2-1 WEEK 50-500 1-2 WEEKS 100-5,000 2-3 WEEKS 500-10,000 3-4 WEEKS 1,000-50,000 4-5 WEEKS 10,000-100,000 5-6 WEEKS 15,000-200,000 6-8 WEEKS 10,000-100,000 2-3 MONTHS Performed By: #### P REGQNT, TSH #### [facility] [address] [place] [address] Dr. Nam Keenan TSHon 08-22-2022 TSH 2.026 uIU/mL Normal 0.358-3.740 [facility] Comment on above: Performed By: #### P REGQNT, TSH #### [facility] [address] [place] [address] Dr. Nam Keenan PREG QUANT HCGon 05-27-2022 HCG QUANT 3 mIU/mL Normal [facility] Comment on above: Performed By: #### P REGQNT #### [facility] [address] [place] [address] Dr. Nam Keenan HCG RANGE SEE BELOW Normal [facility] Comment on above: Result Comment: 5-50 0.2-1 WEEK 50-500 1-2 WEEKS 100-5,000 2-3 WEEKS 500-10,000 3-4 WEEKS 1,000-50,000 4-5 WEEKS 10,000-100,000 5-6 WEEKS 15,000-200,000 6-8 WEEKS 10,000-100,000 2-3 MONTHS Performed By: #### P REGQNT #### [facility] [address] [place] [address] Dr. Nam Keenan CBC AUTO DIFFon 05-22-2022 BASO # 0.1 103/ul Normal 0.0-0.1 [facility] Comment on above: Performed By: #### L BCLH #### [facility] [address] [address] [address] Nam Keenan Basophils/100 WBC (Bld) 0.7 % Normal 0.2-2.0 [facility] Comment on above: Performed By: #### L BCLH #### [facility] [address] [address] [address] Nam Keenan EO # 0.2 103/ul Normal 0.0-0.[address] [facility] Comment on above: Performed By: #### L BCLH #### [facility] [address] [address] [address] Nam Keenan Eosinophils/100 WBC (Bld) 1.6 % Normal 0.9-7.0 [facility] Comment on above: Performed By: #### L BCLH #### [facility] [address] [place] [address] Dr. Nam Keenan Erythrocyte distribution width (RBC) [Ratio] 13.9 % Normal 11.0-15.0 [facility] Comment on above: Performed By: #### L BCLH #### [facility] [address] [place] [address] Dr. Nam Keenan Hematocrit (Bld) [Volume fraction] 36.2 % Normal 36.0-48.0 [facility] Comment on above: Performed By: #### L BCL #### [facility] [address] [place] [address] Dr. Nam Keenan Hemoglobin (Bld) [Mass/Vol] 12.1 g/dL Normal 12.0-16.[address] [facility] Comment on above: Performed By: #### L BCLH #### [facility] [address] [place] [address] Dr. Nam Keenan IG # 0.03 10e3/ul Normal 0.00-0.03 [facility] Comment on above: Performed By: #### L BCLH #### [facility] [address] [place] [address] Dr. Nam Keenan IG % 0.3 % Normal 0.0-0.[address] [facility] Comment on above: Performed By: #### L BCLH #### [facility] [address] [address] [address] Nam Keenan LYMPH # 3.9 103/ul Critically high 1.2-3.8 [facility] Comment on above: Performed By: #### L BCLH #### [facility] [address] [address] [address] Nam Keenan Lymphocytes/100 WBC (Bld) 38.0 % Normal 20.5-60.0 [facility] Comment on above: Performed By: #### L BCLH #### [facility] [address] [address] [address] Nam Keenan MANUAL DIFF REQ NO Normal [facility] Comment on above: Performed By: #### L BCLH #### [facility] [address] [place] [address] Dr. Nam Keenan MCH (RBC) [Entitic mass] 28.0 pg Normal 26.7-34.0 [facility] Comment on above: Performed By: #### L BCLH #### [facility] [address] [address] [address] Nam Keenan MCHC (RBC) [Mass/Vol] 33.4 g/dL Normal 29.9-35.2 [facility] Comment on above: Performed By: #### L BCLH #### [facility] [address] [address] [address] Nam Keenan MCV (RBC) [Entitic vol] 83.8 fL Normal 81.0-99.0 [facility] Comment on above: Performed By: #### L BCLH #### [facility] [address] [address] [address] Nam Keenan MONO # 0.8 103/ul Normal 0.3-0.8 [facility] Comment on above: Performed By: #### L BCLH #### [facility] [address] [address] [address] Nam Keenan Monocytes/100 WBC (Bld) 7.6 % Normal 1.7-12.0 [facility] Comment on above: Performed By: #### L BCLH #### [facility] [address] [address] [address] Nam Keenan NEUT # 5.4 103/ul Normal 1.4-6.5 [facility] Comment on above: Performed By: #### L BCLH #### [facility] [address] [address] [address] Nam Keenan Neutrophils/100 WBC (Bld) 51.8 % Normal 43.0-75.0 [facility] Comment on above: Performed By: #### L AMYH #### [facility] [address] [address] [address] Nam Keenan Platelet mean volume (Bld) [Entitic vol] 9.1 fL Critically low 9.5-13.5 [facility] Comment on above: Performed By: #### L AMY #### [facility] [address] [address] [address] Nam Keenan PLT 342 103/ul Normal 150-450 [facility] Comment on above: Performed By: #### L AMY #### [facility] [address] [address] [address] Nam Keenan RBC 4.32 106/ul Normal 4.20-5.40 [facility] Comment on above: Performed By: #### L BCL #### [facility] [address] [address] [address] Nam Keenan WBC 10.3 103/ul Normal 4.0-11.0 [facility] Comment on above: Performed By: #### L BCL #### [facility] [address] [address] [address] Nam Keenan PROF CHEM 8 (BAS METB)on Anion gap [Moles/Vol] 12.1 mmol/L Normal [facility] Comment on above: Performed By: #### B MP #### [facility] [address] [address] [address] Nam Keenan Calcium [Mass/Vol] 8.9 mg/dL Normal 8.5-10.1 [facility] Comment on above: Performed By: #### B MP #### [facility] [address] [address] [address] Nam Keenan Chloride [Moles/Vol] 105 mmol/L Normal 98-[address] [facility] Comment on above: Performed By: #### B MP #### [facility] [address] [address] [address] Nam Keenan CO2 [Moles/Vol] 27.4 mmol/L Normal 21.0-32.0 [facility] Comment on above: Performed By: #### B MP #### [facility] [address] [address] [address] Nam Keenan Creatinine [Mass/Vol] 0.66 mg/dL Normal 0.55-1.02 [facility] Comment on above: Performed By: #### B MP #### [facility] [address] [address] [address] Nam Keenan EGFR-AF HUNGARIAN >60 Normal >=60 [facility] Comment on above: Performed By: #### B MP #### [facility] [address] [address] [address] Nam Keenan EGFR-NON AF HUNGARIAN >60 Normal >=60 [facility] Comment on above: Performed By: #### B MP #### [facility] [address] [address] [address] Nam Keenan Glucose [Mass/Vol] 105 mg/dL Normal 74-106 [facility] Comment on above: Performed By: #### B MP #### [facility] [address] [address] [address] Nam Keenan Potassium [Moles/Vol] 3.5 mmol/L Normal 3.5-5.[address] [facility] Comment on above: Performed By: #### B MP #### [facility] [address] [address] [address] Nam Keenan Sodium [Moles/Vol] 141 mmol/L Normal 136-145 [facility] Comment on above: Performed By: #### B MP #### [facility] [address] [place] [address] Dr. Nam Keenan Urea nitrogen [Mass/Vol] 7.0 mg/dL Normal 7.0-18.0 [facility] Comment on above: Performed By: #### B #### [facility] [address] [place] [address] Dr. Nam Keenan Urea nitrogen/Creatinine [Mass ratio] 10.6 mg/mg Normal [facility] Comment on above: Performed By: #### B MP #### [facility] [address] [place] [address] Dr. Nam Keenan PREG QUANT HCGon 05-17-2022 HCG QUANT 532 mIU/mL Normal [facility] Comment on above: Performed By: #### L BCL #### [facility] [address] [place] [address] Dr. Nam Keenan HCG RANGE SEE BELOW Normal [facility] Comment on above: Result Comment: 5-50 0.2-1 WEEK 50-500 1-2 WEEKS 100-5,000 2-3 WEEKS 500-10,000 3-4 WEEKS 1,000-50,000 4-5 WEEKS 10,000-100,000 5-6 WEEKS 15,000-200,000 6-8 WEEKS 10,000-100,000 2-3 MONTHS Performed By: #### L [facility] #### [facility] [address] [place] [address] Dr. Nam Keenan US PREG TVon 05-13-2022 [...] ROOSEVELT LOPEZ Date: 2022-05-13 13:02 Normal [facility] PREG QUANT HCGon 04-28-2022 HCG QUANT 139 mIU/mL Normal [facility] Comment on above: Performed By: #### L ANNE #### [facility] [address] [place] [address] Dr. Nam Keenan HCG RANGE SEE BELOW Normal [facility] Comment on above: Result Comment: 5-50 0.2-1 WEEK 50-500 1-2 WEEKS 100-5,000 2-3 WEEKS 500-10,000 3-4 WEEKS 1,000-50,000 4-5 WEEKS 10,000-100,000 5-6 WEEKS 15,000-200,000 6-8 WEEKS 10,000-100,000 2-3 MONTHS Performed By: #### L ANNE #### [facility] [address] [place] [address] Dr. Nam Keenan PREG QUANT HCGon 04-26-2022 HCG QUANT 50 mIU/mL Normal [facility] Comment on above: Performed By: #### P REGQNT #### [facility] [address] [place] [address] Dr. Nam Keenan HCG RANGE SEE BELOW Normal [facility] Comment on above: Result Comment: 5-50 0.2-1 WEEK 50-500 1-2 WEEKS 100-5,000 2-3 WEEKS 500-10,000 3-4 WEEKS 1,000-50,000 4-5 WEEKS 10,000-100,000 5-6 WEEKS 15,000-200,000 6-8 WEEKS 10,000-100,000 2-3 MONTHS Performed By: #### P REGQSACHI #### [facility] [address] [place] [address] Dr. Nam Keenan PROGESTERONEon 04-19-2022 Progesterone 12.6 ng/mL Normal [facility] Comment on above: Result Comment: Foll icular phase 0.1 - 0.9 Luteal phase 1.8 - 23.9 Ovulation phase 0.1 - 12.0 First trimester 11.0 - 44.3 Second trimester 25.4 - 83.3 Third trimester 58.7 - 214.0 Postmenopausal 0.0 - 0.1 Performed By: #### P KIAN #### [facility] [address] [place], [place] [address] Dr. Nam Keenan PROGESTERONEon 04-16-2022 Progesterone 9.5 ng/mL Normal [facility] Comment on above: Result Comment: Foll icular phase 0.1 - 0.9 Luteal phase 1.8 - 23.9 Ovulation phase 0.1 - 12.0 First trimester 11.0 - 44.3 Second trimester 25.4 - 83.3 Third trimester 58.7 - 214.0 Postmenopausal 0.0 - 0.1 Performed By: #### L AMY #### [facility] [address] [place] [address] Dr. Nam Keenan PROGESTERONEon 03-15-2022 Progesterone 6.2 ng/mL Normal [facility] Comment on above: Result Comment: Foll icular phase 0.1 - 0.9 Luteal phase 1.8 - 23.9 Ovulation phase 0.1 - 12.0 First trimester 11.0 - 44.3 Second trimester 25.4 - 83.3 Third trimester 58.7 - 214.0 Postmenopausal 0.0 - 0.1 Performed By: #### L ANNE #### [facility] [address] [place] [address] Dr. Nam Keenan PROGESTERONEon 02-15-2022 Progesterone 11.0 ng/mL Normal [facility] Comment on above: Result Comment: Foll icular phase 0.1 - 0.9 Luteal phase 1.8 - 23.9 Ovulation phase 0.1 - 12.0 First trimester 11.0 - 44.3 Second trimester 25.4 - 83.3 Third trimester 58.7 - 214.0 Postmenopausal 0.0 - 0.1 Performed By: #### P KIAN #### [facility] [address] [place] [address] Dr. Nam Keenan Coding Summary.on 03-30-2021 Coding Summary. CD:[id number] G h0bWw+PGhlYWQ+NN6RBXM lB27wcGTmxW0ZH3pTBS8Y GZDNDGJHTF1SXO3auLH6A WxnE3FjrrVf YwyuyLJcKP83POf7WTS2z ZymASniyO9yuIFgO4w7Xv XtBY04nT29TKkaGWLiXeP 3LjZpbjsgbWFy P1aoHeBvyFEyKlc+PHRhY mxlIHdpZHRoPScxMDAlJy TdfTlsGU8jBl3xGMAhEWI vbGxhcHNlOiBj l5ikRBKlRQziAJ5bsSloU 4BoyOO7CEPlq0t8Cd22oU I+LUErTWW2bGyoOLgvi89 0QwLrj8caIUL4 lSVkCTsdBEE8W40nn6N7C WYbPSEoVYY1cUD2kD7ohS hnqsraP2WuuOLfFkB3PMI 2fJFmbU7kfKlc uhywbQ6lUlz+P34ELE2YT LAOLI0SVhl7I4SoFgwrbQ I+LX09IPHmYE69hCCkyKT au2hwuCl1MpTn CILmNKY3gFnySZzau6MwV UIzI03vuASrj4B8QVXrvD vkfJUuYfKzmFE8sB5aALr nbhndq1dinmdc Veyol7myud32rL01W72tM FzlRGBfCXG8ROMgHZVsoS kvua9huL6nIi2+YSnxl2m rb6lczWg9MwXz XIDigeZfsFnpUSA4k9ZuZ k62O5SxbNdkj8UkSvr9ws 53cUZsa2T2dQN4VNrmBPR pzJ1aASmmFhN6 IWJaXuErrE83pQFeKOpeR g9dsNxzrRfePT8jXCThwj ygZYBbhD5iMVNvyHCqdFv yTS2aFGVytltg x102CiKsCTX1BDOksKHkY 9WaxY9zMqOjOGQdVTNjZ1 LlkRAjGJsiN632WBltMlM 9VBYvlcOrJ0He QDCkiHubWzJ0h9B0Mj0Xh 5YjqeseUAE1ZEvsTVCcXm FeOhZqEpV4O8PzBoj3STE ewFnlAX4vW1Jz ZAMdwnsghdbcrUM3AYFzN URpcJ99gYOwKXnxMh6vr5 Z3h654QTJuXRMdmR94Zl7 udDogMTBwdCBU bG6kaugkz0gksayqQhZzK MBlCLg1PVj1OOUzdCehEt GpPDD4GrZ5PSF2oOGjzI3 woUhdyjagyQ8u Oyc+C69dbY3fWLT0YMM4i quhWKDrncRyBV41RO63D8 RyPjwvdGFibGU+PGRpdiB cfDhuPV9pWfTd q4idg5MzAUdgO1KeTHJzD WkgTlv7LOYdIBP0lOT6eX 6nZEEmYErrn8Q8iZJ6W9U zltUpbt2vq6gr WNRxGNhyT44rwPPip4V1W HZayMT5MCUnkFpoGpQxrO 93Oyc+IRXwfIlnw5NoUwd xg1bdh2touPl3 IgGyKEZwuaHboEkrKRR1o 3CeEo14K38vCQbjCNFgZD OqCTEoXJPuxBzgni0mjX8 wIi8+PGNvbCB3 bEH5jM9iCVHlAmY7IGixE 587AxSwnRYgStghk4brs4 nsgKz1MuEaGICkoeIldLl sGFL1i1IbLt70 P52kYRltTHUiRJEmMOPtO PGfkEjkdv0drI5aVa1+PC 3gk1gtnk55vY49nLW+PHR fFPM9cTrxXJhr KJZvjY7pASunPlL4GKBnV pZegG38yTNtEYirTj9lkA sbzPehFY5bBPHdonzpk25 3BdJrp4abHVPj qNYoWAnjWKH8A37rs9K3U KKvAPLbBGN9bNM4mY5mrM lnbjogbGVmdDsgdmVydGl nTScoRFghW310 IHRvcDsnPlBhdGllbnQgT rEwUDg0K0CmMkd9ICYijD vtRK1ygVTuYSlsCu4lmMd scLjtXA5lANOw xpxka173QgRol5xhRIXcx BAcOVhcVVF4K77pk4E7MM MlWPSzCYA8lQZ8hV6srKh nbjogbGVmdDsg ftUzoJtlUEhdXVxdX420E HRvcDsnPkJpcnRoIERhdG C0PV99TX28xKKor5A5fAA 4Y7JwCYSlbddx scntyAR4WJEmIUWwtL75P v4ljDhpOb8uJHInMBI7NT JxuTGnN4JooU5kPqExNLJ jRMAsV2EphVIa DNdaW493DBffPgW1PAAvp aEsH5AiMKVgpBdrHbC4q6 C8Mj5RV0R2CJ13OU68rUZ xr5I2bFP3X5Hi CCMojtjiqpzsnHG4MKVdL DMjqZ58Ok1jdNzjHb5zYF XwZIT6YOIttFQuK2EjoQ1 yOiAjMDAwMDAw G8IbhCGtKGojG361JUkuH gY2FHLyfhBvW7WnWYFtxQ zvYyN5a2P5Zi9ZDOp4AA8 2LF67zGDrt2H6 cDQ4O8KrFLHzrxnmqkbwf WX0TTLvMYBinH24Dz1pzM jdBg9dQSYxSFC3JTUblIL kM3UrmC0kLyOm XHHpLGBdZ1OksXWpGFadX 359TMeyFlZ9BPIwmkZaR3 UhYTOseXiaBuK9l4W6Ga2 XVEMzPG67VIH5 mWQ4SG60UW42O6TwKjvgx GFibGU+PHRhYmxlIHdpZH RoPScxMDAlJyBzdHlsZT0 wWj8fMLBlSFWc uHtzxOGfJfVsx7njCIVsA UjnUG9tnMzuO6BatWQ6FM Jsf5e4Cl25L32mA4HhrJT +EZBwiVJ5uIR6 oX0iHwTiDcS7RPflS054F sZdyQEaUbrqz0opb8tgtU j3GvP6BAAcgfZrxVsyNAZ 0b6SkKo45I96f IHdpZHRoPSIxNSUiIHZhb Njqup2stM3vZh6+PGNvbC U5nXB2xX4zZiAvKfP3QNv lC421QnPflBSl Uxykt5hhm1pxzWd2JnZnQ ZRsquKpaYcvCWO5a6QfNx 54V9CawGqfl8EzOid7vq6 9sQIdl0R8oQY8 C4VjOWInqedgvLVccWfpS A9qKGElvtknIWPgdY7fXK TkI5p2FaVyDxV4URlvH3L rrfL6GAAwhXHs ZPpwCGZ9T33lc4Y5ENOtM PWaDHF9aPY8vT9wwGjqpk ogbGVmdDsgdmVydGljYWw hGQpwW794DFRu tKuxHLOvfJ2aIXVotUHzj XyxQC2tYLXnvgacGl9GXT rHYdafLxYMH2cFURNBCG9 7UD31wIWpo9N1 ySU5O7BoMJWxiyilvmxvx BX4IDHaYBDpuB16oZMoGQ enOt0uj2D1c295ZNAmSJD cpE93Qg8sdBvf HLDjxLHPuK7jmajrw9siq axeLqFjVKEgPTd1UPi4VT WrrYleZdSgPDH7JpC7RXW 0eVGhrF5ilDic czjprS9cKct+MDgvMjEvM Ak3VClenVA+JXJyGIY4bL mdXZgkPNIgfN8zIGFeW1d 6DtLzTgC6ECcj P3YcSEOqjbwzCh35oF2jP qYfFmM3TSuxC0BgofW9ET HqrWLxGUxgDQU5D34ix6N 2BWMyIWDxIUN7 jUD1mX7poOspcsbftAZjd DsgdmVydGljYWwtYWxpZ2 46IHRvcDsnPjMyIFllYXJ hMI89RA00tWQj t1A2gGF9U4UuGLKcmrtqp jzjeZO4GSGeBICbzL82pI AxIRojAs5vn3H1c064YHU qITDhuS84Mu0o gKalIXNjxMOOmL3qisizb 0maofijDrGwINXqOSv8MU h2RGNgvFmlPmIfPRX3NfA 0HUH8dNGihM0j kAnmnydbnK9bBsi+RmVtY HglVW41HP95ePNbt1K6cL Z5F3YwFWGoyfexvtuzqVE 2OYWxLOOdzY89 rHEcYZgsKo5ke5N4g955E NOwBHYtrS46Wf2uwDjaYW BwdAAPwO9uhfslm7itgbr gIzAwMDAwMDt0 FAe5YIEqyRjmPlBlLRW3D uC9QUQ7nOXowP4grTtqzv losK5cIsl+G2O9bHS1lKS udDwvdGQ+PC90 ev81B2JvIemkGql5OFPuA VZ8mZH7qW8nMLDvBMafv9 G3hJQ2Y2FttbVymn4uk3v kSRQpVVkkQ40d xLTru5D9WNDacRT2UDCop AhsDgQrlN56Dfz+PGNvbG bet1KjQrspr1nih6nauBg 9IjMwJSIgdmFs yPelRQQ6n6IbJy37J09lP HdpZHRoPSIzMCUiIHZhbG wsgk1dfN5sUn8+PGNvbCB 3oXZ0eV4fMyEs LcY6UWtlH367BcUasPBqY ounw8wmn5aivPf1JrCkSP XsnwNpcKjvNIA8t1TnCi5 6Y4AkkLjyi4Un Czi4xs15wRWyu1A4gBR8I 3BhZGRpbmctbGVmdDogMC 4sJGXvnwepWFFtwK1vASP bQ6p1QgGiZhY1 XOehR5HuysU5HTAnePRtN TSxkORKuJ3isovsh7phoq zwNjGgDXFsRUy3DFi5NTZ saWduOiBsZWZ0 LnD7TEK9zMVwkW3qeJjli dirnP5uOnj+EXh9y7wyxY GzLY4vyIA1DL46KM06xCZ ze6F4eCV6Q0Ad CLJrbsjpeorduCK8VLPfM OUgxM20Xx8dhLbiPc8pTB BhUND5XUUykRWpI3OebB3 yOiAjMDAwMDAw W4OhvKRpYRmyD435OBxtV uG1KSExhaOkY5VvEDRasW ryQiO8a1V4Re5FKI40RT7 2YU48lAVvq6T9 kLF4C5ZgCBYtnricojtlp GS0BEPfBCMbbX94Qv7cuZ gcLu3gTIZrGTA2KPDdoJH pD8SsaI0zNsVu ZTPxXFZzS0HkgPBaRWejT 026XWusHvL7OVSctyUfK8 UzRXCjsRedCaA4v9U1Vx3 EVe69HO95CJ54 yKGmz6R6xGV3B7GxEXSbj crnxdejbMI1SZEjTBMddG 31Sz6osHwpOh6kRHRkLFG 3BWJldXLrK7Yz aB4lVxIfJCOyVJYnY3Idq FIeBKhsH874VAgvDyN2BM FglcAaP2IzQELvaTmsQzT 3f6W3Em0XUBsc vqu6P1GtPbjzzQD+PC90Y EJxFY01rJFnvHYjz1xmlM z2PmEbYBYrMIN1sWmgUPm ic5HxCVTwF34s bGFw (more content not included)... Normal [facility] Coding Summary.on 03-18-2021 Coding Summary. CD:[id number] G h0bWw+PGhlYWQ+XX4RVPF vI90xwYMkxT1UF7bYZR1I QBNEMFIXGT0NIJ9peNG5R IthL6AtktAe KpzpkMWbDO32HWr7HSG6q VfoLXcpdX1poXApQ5g5Xw EuQW37xA73AEydXDUlNsF 3LjZpbjsgbWFy W5jcNrLfkJFyRgu+PHRhY mxlIHdpZHRoPScxMDAlJy VowBaiBA6fCj0nXNXfPEJ vbGxhcHNlOiBj w9omODLgJEftKE4dwFtxL 6EsfNJ1YQTnr4x8Tz09cJ I+ZTImJFL6fLueMMkpx74 4YrOlw5suTFY9 vLNgMKkgPVS9D39qp2J2G CRbVTFrHSB8rMX4kF8peM edackvF1TxvUHpSjY6TCF 2eYKwsU9psTkm ixbtsF0oPon+L68WIB5UE OBTQD4EDcx1U4OnFfsupA I+ER05ROXcHR29vVRtkCM xu4gfgPp6SkVn NOLwESC5hCprFHujw1UrO GCeL62iaSVbb3F9ZFWstD stbNJaYuAreSD3hG4oZTv qifnol0isfdrl Xonou5nhdl69iW73I88bT ImuMZNvINV2BRHtNBMghB dgwu7znF2eEz8+CWewk5y mf0qowNt3YeWr CPUgwbGiiWtxLCM3b9OgW b34J7WueObnb5RmXbw4um 02oDPfu0J8xUD5KXmxOVO ssK9uKJjbYlM0 PBOkIzIdzM93uNTkUKnoS t5cdToflIlnFI0rMFEzzt rsRKRusL6zSGFynXZxpRx uTI0mCIVjnhva o445UwVcVXG0ZNCvoZSsE 8DhpA9jQmIzQHYqTLXdT2 GnnRGzRMbcM712LDnbAjP 7HUSwwxSlN8Cs WBSxdMemVeA6g3E1Ut8Xi 1OxgpvmUOD2SUpuSHTaEo C9RtDwGiU2T0YlNou9EDW cwBmyLW6lO8Jk FOZshskmmmdrpDZ2MWJqG SQubW81cBSgBCptYg9py0 C1v681LWFbJYKztQ18An5 udDogMTBwdCBU bK4roulka4hsnmanReIrZ QAhRVi7PTh2OIRoaEldYh BhSLZ5YgL7POV7uSPmuO4 bcZxvyyyoiZ3l Oyc+G01gxQ2wLCY2JFI0p isbGHIsdpLwVU95XH76U0 RyPjwvdGFibGU+PGRpdiB qiPonQI0nTlDu p2fpu2YyWXwiV1BoBNKxD XvdLix1KHYvHOF9aWU9gA 5xVCKvPEcbw9K5zDM2G7M vaaAoja7gf6vc KGGkDLizL67clJZzy1S3B QFndHY8VSBwgUfrXmKdkY 93Oyc+WGOmcSmxt3WgDow tp8sjm6zspAb7 GhZcSEQbhdIgnOmhYYM3a 6WxWw10B64sCWluORGxRQ NhAOJtQWRvcNuvoq1zmP5 wIi8+PGNvbCB3 hNH4uX8gPYCcObN5QEbtX 157EqEyaHIrKnrur6dhl7 bxqNt3LbDxGKKvkqWkpWh kEJE8k3GaQy05 G24kYVcaPTRpLOIjCXHlW ZSkvJyjcy4qgX6oEq1+PC 5bk5ezvw34dH35uDN+PHR sNFL6rRumYRrj JYVmbE0oMFdiRjM1CTKwV qYqnR13rNMmRXwjZd8diP xgxAldPK1qCGHpuumfm86 7QnNik4etBKWh wKZrAYsdFEY4M84or5M8B TEzBJEoUNF8yMX6mC8fdN lnbjogbGVmdDsgdmVydGl nFOjiAPfuL134 IHRvcDsnPlBhdGllbnQgT bDzWMi7F9RnQwr4UEBkvQ adSZ3qcPVoQXtlIt9flRm tdEwlCR7mECSk fhqqi152JbMwe0xoKXQkd WQbEYiiCON5M92vc5T7EA DsAYOcDGN3iVA1qH1vaGn nbjogbGVmdDsg vcPttJlsHMmaJNkyI525P HRvcDsnPkJpcnRoIERhdG E9PX85QM21mQJnz2J2uCH 4F0XgUGRyrjkr kcfrwNQ4DZZyWKBmoN89X n3cnMhxMs7yCLTkZTC1VB BdkTUyJ9HycU0kRqMtBTW mVVWjK1RnnQFz EZblS053LEhsMhM2OCWgw zEsU2PrGRNqiRwdUdJ6c1 X0Bg2ON8Y7ER70WQ74zRS rr6C6kAV1E6Hu XZQxahlhkimduTQ0MNMdU LRlgF50Qm2dwUtcLp9vKN GnPOF2OYPryPNgP7ByaO8 yOiAjMDAwMDAw O1RqqLYuZQfvU241NEeiT bG9UJPqhzPbT1XoHQMlxE joRiE9y2Y2Kr0ITMs3PV6 5VA11eNQhf3Q2 pEA0P4RjYNGoaplpvgfnd WT1IXAcKSNptS11Ga4beO ptIg6jSSGxBHI8CJJauKP nW1MedH2bDdYj KDCnAFYkO7XyrGMkEXeuE 429PAgyMsO4FDGulbCtH8 LaWBSvaQjnTcO8c1X1Se5 LUDJiBM32JOT0 dDO9YI73XP13D0EkCcuup GFibGU+PHRhYmxlIHdpZH RoPScxMDAlJyBzdHlsZT0 uCb8yVTRlWPMy nXhidTPtZbHxi4jeTJRlN JuvWW1exKuqH2KrxPS5QE Cbq7v9Ic11P74rU8NemOU +AJAkiSB2cEB3 uH1qVwKoZpT8OHzqE075X jKddKKkPqxlz2nll0vdbJ a8IxZ4VEWwmbNcpSacXVJ 5z4VeFb95P58u IHdpZHRoPSIxNSUiIHZhb Drnvn6ljV2qHz6+PGNvbC W3lFE8fU6bXlUlKhO8BEo lV310FkEstQMk Yifnq5dow3buxEk1PvQyB QHhkcZxzPjuHDG5q2CnRo 46D0UreAoqk0CxYzb8ej3 5rZHdl1X5rBW3 U2ZcFTKhmbcjwYRqyHneM H1rTFWbuwfnTTPsqX9lFY ZkK4w5FyTjJnF9DLhwO7H ftgT5GTZilHGp LLmxWSM6L66tc7C8DKAaZ MKgECI4eZO8aX1uhUnsuw ogbGVmdDsgdmVydGljYWw yCFjaH434VXMd bBgzXSJyuS7qLMDgpLHrl HzcBM2nVPWikkbuEh3FRT vOVvjuJaBIP5ePOZPKIQ0 3ZT23jFAle9D2 vPM4C2KxISBopdzplrbmm PN0LCHdJSRduU30vTYaRY cfWi6mo6W1h207NDPpTFO zeD38Yi9czTbi UZTakDCJiF3ihzzbb1ztn fwqMqWcQEYiKJj9KJi5CM WowJdmNhUpRHS8HzH5BOS 2mBLhrC8ppXxn zfomaU1lMhl+MDgvMjEvM Qy3XHziaHH+MUWmTMX1aR zhECuwUAFjbC4yHNFzZ3x 8YkJnAwO7DKjc O0NzSCErcwibKb46lI0iX pGrVoQ7GVfmC3YnpnF7HT EkyPYkQSnpGGF6S98ux4O 2URUfFGVjRBP7 bBX7uB1bdOzapbznrCVib DsgdmVydGljYWwtYWxpZ2 46IHRvcDsnPjMyIFllYXJ aDQ80VI02uHXu e8B6vIB7M7UiCRFifjwun yowtWF4AOYzOZAhpK53jZ XlEExjCy2ri0T1h693NQH dMXQpsZ26Uz4z yLszTEFqaLXCqQ9ancfna 0wedauaOxQxAVDsPNw2RD q2ONUrzJdsGjEhTYL9DbY 9TVE3fJTcoN3l zBcszccqeB4mWvf+RmVtY PsoGK12VQ18dWZmu6H5wM T0R6SsIYPzbwoyiicgeVN 9NYRfWDDhvP02 nHLeGRojAj4jf4M7i981I CPyEWUfjV16Ex2qnYzjLK NhiVYDjW7suzxye0qciiz gIzAwMDAwMDt0 BId8LDJgjNvwOcFpDFB7M yE2QVV2xGQlyS1qlMxtdc qruX7aOos+EE8oozgdmdX 3SU71AX42M1Uk PjwvdGFibGU+PHRhYmxlI HdpZHRoPScxMDAlJyBzdH nnEQ5eHx8zROSdYUSkqMp njJXxPlLgz1qr OQHpTBefRW2tzVdcT1Hvz OV8XPNka0l6Gn62E28qA8 JvdXA+XUXskAT0rOS7zE0 fYiPcHtH7FEbh Q606BrYfuPQrIlaaq3odq 5ggsCw6ExMtTOYomnUqsZ jsZTE7x6ZqOh31Z56lCRn pZHRoPSIyMCUi MLJgsCthks6gbJ3qMz3+P SRssOJ4aNP1tG3qBuZqZe P7FUtaR240VsHzzNTqSbq fE23iI1VubHS+ BLWqXeb6ULGxhRkcJD3vw QKzODkfOy0bNVY7OwVuFl NmPDycD3MxOXEzumziutc vxBF2UCDlETYh bG08Iv6qcMadYt5eYCPfX UP1MKNhcLJbC7RgkH8iUc BcSFQaQNMhR6FdlEYuDVp nL391LOdaWoU5 TONcxdQxU0MwWLJtoUjtS xH5o5Z8Iy6OdCvosRIwHD 4sUpNsMYg6Y0XfIbj0BYA vcCwsZN0pzQOj DVilGi0jsKguvVcuBW8wC WBxqpzhq010TqZct6leDY QhyQYtTSlkYJS0L79kt5W 6NGKwXWUmPRY9 dPM3vG4kxHwblgvvdUTcp DsgdmVydGljYWwtYWxpZ2 26MJNnuQgmLcYJEtg7I9N lFdq3WUUebLrf EG8krVQrFBvsTu9qxSikh RjuZV0cJNNjvsazz833Tm Jrr2oyGSYavWTmANooRBQ 5V23aj7U3BZAw SPYqLNO4wSU1rG3woPbhr jogbGVmdDsgdmVydGljYW nlCHseV130JXBrfIyuCa2 LXlz7J3NpMrv2 SFWxjDrbKH4gmVHrXOstK m1vjWyozEtcYN5xYAXmwb rbk567MuUlk6kwYYUphUW mNRggGXX1H94b n7P9KTZxFXAtHBL4gOJ4y X4xfFmvqoryhBKtyOrbxk YzzZngVOlwWXaiG205AIR vcDsnPlBheWVy OjwvdGQ+ZT23lu39H2KdK kkxFhp4XZMlDTY1cUA6bN 7gVTPmYUhgt5K2hGS2J0X lhdNsqp5nd1vj YXBz (more content not included)... [facility] Coding Summary. CD:[id number] G h0bWw+PGhlYWQ+JT4GZMD vO63vzFGiyN8OO5zNCT6T HRLSTUHQGN1JUQ9pcGV1R TvxI0RxjmWp JknkfUGnUX09YNe9TLB7k MrwBIgdeN8qaDUuA2f9Tv CsXE27dG12TIpuXNEcIeJ 3LjZpbjsgbWFy B6ifFnWgvEJvKwb+PHRhY mxlIHdpZHRoPScxMDAlJy OgxSchQI3eEz0iUOGxGVN vbGxhcHNlOiBj y5zyPEUnLMabEH2fnKkvZ 9AqdWZ4GDSoc7v5Wa73nG I+CDMpJCU8qEwkUMeru52 2OuNdj3uyFFJ7 aJYfPVplXKY2S25dh9R8P LEfWKIlKYG3yHN5yR9byP szojotI5HuzUPqOxV5SOC 0wAOdsE3zbQke bczlxD3wGrq+W32PPS4MI FCNTL0SMwm2O6SqIwlfyG I+HS12PHTaWJ54kDCjpEK pe6bqmZz7SbGg INPpAKJ5iZyiXNdvs2ThI LZtL16fbBHbz4F7HFPgkT zxvDCdRlMtaWR1uL8jNEb cwflhe0afwomo Itugi0zlip17dY50E69fF TbyGXBdOYB5HRDzKZKklZ hbav1wnD6eCh2+LXkzg2j kz9tpgBo4RaEe UBQtnzRjbRaaITW0p9CeH w19E6NxxJzav5WiUma6dq 67jJXqs7W8tHB9RWycJRL roR0zJOwyMlI5 QRJdIdMqeQ26yHWhTCodF m8qbRyxoCbgTY9dQKZnul jgQFIfhZ3xHWKpfDAmdNe fWJ5xSSRlnhrv x345FaFiAYC1YXKtaIXyY 3AnvP5tWmNbVZDlIGMdS6 JmqLCnDYotO118HZarEwC 5ESElceMuD1Cb OXEsfUwrZpW4w7E6Vc8Td 3TergefNIF6ELsjFYVwVf K8KcUaGbA1F1XkMnx0QBC uiFgtME0nX6Do PHJgijufyfqmiMT3WXEdJ ZKflM63nOMhZPrnFx6gw5 E6d077ZPLzLYIrcA13Bm9 udDogMTBwdCBU jY2kqjwew9wlsyoeGiPmU ZYkNSe3DVz6EPUsgSfwTb EwUKE7IhV2TZT9jEQraZ1 pqGubuitamP3v Oyc+V50prL3kPKV2FCR3j wisZGCzqlOfJR89KD16N5 RyPjwvdGFibGU+PGRpdiB bjKtlPY8pKxIq p6syx7XkOXkvX4IhLUIlH BhaLiz5UVCpLDP0xKQ8aP 1yMMMoGCgib0X3iHP5X4D xzoPgen1wl4ge WOYbPMvlP51xoKNns0Y1D QRhgSF8SCXfcZkdTjJpmQ 93Oyc+QCFcyBxur3AtUkh mu0jiz1lymNn6 UwKjLPOxobZoqVnmIJO7o 1FoKt18K74uOFdlIAMtLB HcACDgKDCjoBjjaj0poK8 wIi8+PGNvbCB3 hYC6wH7iTOEwZxH6HXuqK 658CyBluTPbIozwv8xjn5 aowSb1JiYhNLRjyeComMj yPRO1h0XpPt46 T73kAAhiUTYbCPTqIJTnN OTupBzphh5xyT9kLw9+PC 1ai0jgfe43lA53rSY+PHR qXFV8wTceJDzn IBAgvY0sPAwlJeU6HBBqW gZzsQ16iIVdNJokYo3fuS zibZegIJ7lWREknapno10 4PbZnq2jzYCGm vEWhMOppYGD7D88cp3X5R EUeXDAgBJW3vKN5iW7kmT lnbjogbGVmdDsgdmVydGl bBArsXFqtW529 IHRvcDsnPlBhdGllbnQgT hHbPOg4E9QcRdb0VCZflF msFO4ohUAhHYmfVk7nuOy ztMuiWH2pTKXa xumnw572PqFzb1pxVLInq EUyZDmyDXS7G90un4J2BZ ObBXDgYMZ4dND3lI1ciDm nbjogbGVmdDsg aiWaeIxnPOwaLPteZ901M HRvcDsnPkJpcnRoIERhdG O5ES26RC28gPIkw3R6bNQ 8M7ImQYZwevhr bmratGV8JLTmDZKlyE41B h7doGfjEf3uVZNtVYM1EM QyiTYvU7FuhN4xZrDwPRT vOZZjI5DyvCLk MJgoW541LEtqBiN1LNQeo fTnW1NcMIGseQwvEpR6g7 F7Fm9CF5T1BY06ZZ77nGS yq2F4rTE0R3Ce EXFtkzzdllfygXV3MMGxH NLqnI00Mm8wuAnuBp0dXO AyPOL9EEGkaCWkX0YdkG7 yOiAjMDAwMDAw Y1KkhUZnJCfrG230NOfjE kO4NSFjguRaU5IaRPLnsY noTsO0v9O4Tv5PIAi3ST8 6NQ90lYDje7V9 gJF5D5DgMQWjriayescop RI6IOVxTONamA72Bb1jcC ufPf8lDDMpEIA3IUKuuDB tC2RffP7bYfTn MNCsREXjM9HqhIJqXDrdW 274FDrnRxG5HWDqjxFtI8 AlPBHafFjqLuM3b2H3Qj7 ATSYgES53DWI4 nGR1FK94GI87T5NbLxviu GFibGU+PHRhYmxlIHdpZH RoPScxMDAlJyBzdHlsZT0 pAt2uTKBtCAVd tRotsNLbDbZnm7nqZOCeZ IsxZB8atGoyM4IuhDP6KQ Pfd3p5Rh10A36bI6QhfVB +KSLnzPX4xYB1 tB3yJvWwBwQ3XJurV127Z qCtsFAgZblwx4rjy0kezI q7WnW7MTVhoeVewAciLDL 6p2IzIw26A04e IHdpZHRoPSIxNSUiIHZhb Egqvj9htO2hRe2+PGNvbC Y3nWI0kI8xSrSiWsR8ATx fG292GxXqyKNd Qfsum7ozx2vbiNr2QeQcQ WNcaiDwqRzmYPX4s8JdMh 02L2XgxSuxm7DuUws4rk7 6vJVhc6W4tMW5 H5CxPZNciyjitYNaeUrfK J4pJGDmetwuPBUfjY8lGL ClE3o9KlLiBjB2GEqiO9C taaA2EZYmgPQz XLwpHIS5T26fx5I8DRWwJ PUvFBR0nRC8mM7jiTmmdq ogbGVmdDsgdmVydGljYWw oHVzgD442SHIt oZztBHSlaB2rSSRybQXda MceKP7mRLKbnesqEj9UTP vNXeipAsQCA6wZAZXWMH2 9QI09rJNpw3K6 mRU6Z0GzAPEdhfyktuith OR0CXSzKHThqT87oMAeBG znSo8db9D4v680JXLzFHT dpC45On0dkXup CCPkcSQMtV7avhxkw9tnm dmbElVoMTDvQOk3RZb3FG UurAzbMyIeERO7PzW7OWI 2lEBlcY3shVqv yoyveY2bRme+MDgvMjEvM Iy7LOgcvQA+SAJmEAZ3eW pnLJbgNGRtyU8wNRNgU8n 3NoUiDyC6CRle O1GmWKPbwgivXk61lU0tG bSlTqI5UDhnY6IbcsM7UR UalIPmOLdqFOZ0O95jm6E 6GKCgESPmRWE5 zJJ9qV2joBivazoxlXRir DsgdmVydGljYWwtYWxpZ2 46IHRvcDsnPjMyIFllYXJ jIG29WY30vCCi m6Z8kQC7N0YjBBKysqjnw orvmMX6QYYkSUJukS86oM SaMVuxNu2zj3G8t926LOH uCMWxtD54Js0x cVrnYOKwmITJuF8krsudk 2cmsvgfSrMyWBAlZFs8RN k2IKTiqEvdYfUrNXJ7CwD 0MRX3qYXeaA0e sHrnivoigR4lNom+RmVtY VvkSM50LN03gKDqx5F2tY M4J9TvCKNisigwzlrfcXG 7GZUqJEOfnF10 nGCkZTjiDe3sz2H7y650I FNrCHScjR64Er5cxRllDD JudKOMyO5kdlgnr8apsth gIzAwMDAwMDt0 TZs6XMYsyQevHqCnGPX2S dD2OUE8fZZndC3xhRxjbm mumV2lEoz+NS3tugzpnsX 2LK66VC52G1Qz PjwvdGFibGU+PHRhYmxlI HdpZHRoPScxMDAlJyBzdH qpTD6gVz1nCEJbQSJqdAi bbTZyKgNms2sc ZDVzDHrjRF4yqGybI2Czf UE0ZPBqw2n4Tm14T57hU1 JvdXA+VQTraHX6cRX6nW0 xZvAvTiX7MXyh Z849SiYyoYJuDlazq0fcl 0uywAc9GpYpFGQabaEfnB vxOWG0u5ZxOy39F94qNBe pZHRoPSIyMCUi VIByfAhfkj4unO5qNw9+P TVaaMF5bSH9aI2jJgFnFg Y7QIbxK948SmHfhXQiDbu fP97nT6AeoUB+ GBChVkn2LBOeqQmeFY3zj DJtAOfpEv5cWDW8UdOwSv FzEZohZ0MjOOKtfcruaco qtGL8UJKnQLLb nI42Tm6pgYrhWc0uUXKjZ SX1KFXoaOEeZ0CufF0qRu ZxWFBnIJKtD0RfzDBzBIa iW522DPcnZoA2 EZLpcjNzJ4YqRLXpnRntT pY4y6H2Li3JsDytdVBfPB 3uDkRgHVc1Y1VjLar1ZJG hvUwmUO2zoKPz KKmnLj2hcZwsjQyrRQ6tZ LNzpfdvd843DlJcv0vxHM MciSFlDLhnOIM7R94wf9T 7GSEeLBReTHS6 sTU6kU8svKkjdjxvmGHsn DsgdmVydGljYWwtYWxpZ2 74OHAglIrpBnDDHgu5H2N nUqm8GYOnwKiy KP1yqOTjWJkaEy8bxNvrp ZsrDI8jYMJzuqgcj277Iy Kuz3aaORDccBXkPDfwSOM 8G61tx6M5JRHs DYDqPVK7sSZ1bF8nzOvya jogbGVmdDsgdmVydGljYW shDBpkL098QPWibUafOc0 LSys1J6TeDwf3 VUGtwHbtHI3juWDeTUiaI e7zcDwnrWddOO9eAGRuke wsl162VcWoa8hxJLHubWT jDXxjUFD0Y65w h0Q7MJEsUIVcKUD8nAS4z K4vzMyiqfqnnFGkdEvxsi SizQvnKHxvZCroO703GOK vcDsnPlBheWVy OjwvdGQ+KZ62of10K9NoI zkuFxo6TTLoEZV5zKA7pC 3xFUIpYMyen2Y3nSL0K1L adqRrvb2tl6og YXBz (more content not included)... Normal [facility] Auto Diffon 03-12-2021 Basophils/100 WBC (Bld) 0.2 % Normal 0.0-2.0 [facility] Comment on above: Order Comment: Order Added by Discern Expert. Performed By: #### 2 243176, 9767507, 3440935, 7732074, 15731605, 20415193, 70293676 ####[facility] [address] [place] [address] Basophils/Leukocyte s Auto (Bld) [Pure # fraction] 0.0 E9/L Normal 0.0-0.2 [facility] Comment on above: Order Comment: Order Added by Discern Expert. Performed By: #### 2 571133, 7235270, 1960324, 7754930, 61816894, 19405964, [id number] ####[facility] [address] [place] [address] Eosinophils/100 WBC (Bld) 0.0 % Normal 0.0-8.0 [facility] Comment on above: Order Comment: Order Added by Discern Expert. Performed By: #### 2 513053, 1928618, 0658755, 0977605, 73255125, 56067331, 62845324 ####[facility] [address] [place] [address] Eosinophils/Leukocy jacinta Auto (Bld) [Pure # fraction] 0.0 E9/L Normal 0.0-0.5 [facility] Comment on above: Order Comment: Order Added by Discern Expert. Performed By: #### 2 347074, 4280591, 0059432, 2141349, 37127880, 82573364, 16180330 ####[facility] [address] [place] [address] Lymphocytes/100 WBC (Bld) 19.4 % Normal 14.0-50.0 [facility] Comment on above: Order Comment: Order Added by Discern Expert. Performed By: #### 2 146749, 2583191, 6533810, 6792323, 78394539, 57186915, 23624245 ####[address] [address] Lymphocytes/Leukocy jacinta Auto (Bld) [Pure # fraction] 1.0 E9/L Normal 1.0-4.0 [facility] Comment on above: Order Comment: Order Added by Fiona Expert. Performed By: #### 2 996823, 2384879, 6997836, 1991716, 38726298, 17000223, 60909914 ####[address] [address] Monocytes/100 WBC (Bld) 6.9 % Normal 4.0-14.0 [facility] Comment on above: Order Comment: Order Added by Fiona Expert. Performed By: #### 2 096281, 8579460, 8084474, 6641122, 13788384, 12911111, 91348345 ####[address] [place] [address] Monocytes/Leukocyte s Auto (Bld) [Pure # fraction] 0.3 E9/L Normal 0.2-1.0 [facility] Comment on above: Order Comment: Order Added by Fiona Expert. Performed By: #### 2 771907, 2626214, 5536363, 4606001, 16691126, 66822370, 01418640 ####[address] [address] Neutrophils/100 WBC (Bld) 73.5 % Normal 36.0-75.0 [facility] Comment on above: Order Comment: Order Added by Discern Expert. Performed By: #### 2 309330, 9363854, 5491845, 4479657, 69858731, 88357776, 73218430 ####[facility] [address] [place] [address] Neutrophils/Leukocy jacinta Auto (Bld) [Pure # fraction] 3.6 E9/L Normal 2.0-7.5 [facility] Comment on above: Order Comment: Order Added by Discern Expert. Performed By: #### 2 746874, 9357514, 2596219, 1917787, 00810499, 58912191, 25100310 ####[facility] [address] [place] [address] BMPon 03-12-2021 Creatinine [Mass/Vol] 0.8 mg/dL Normal 0.5-1.3 [facility] Comment on above: Performed By: #### 2 792085, 6313573, 5054509, 4661082, 43885606, 20994590, 98589659 ####[facility] [address] [place] [address] Urea nitrogen [Mass/Vol] 8 mg/dL Normal 5-21 [facility] Comment on above: Performed By: #### 2 675435, 8954863, 1626792, 9105014, 56297676, 91580041, 57805239 ####[facility] [address] [place] [address] Urea nitrogen/Creatinine [Mass ratio] 10 No Units Normal 10-20 [facility] Comment on above: Performed By: #### 2 560702, 4471729, 9790884, 5011965, 51267133, 98812579, 59236280 ####[facility] [address] [place] [address] Anion gap [Moles/Vol] 16 mmol/L Normal 6-16 [facility] Comment on above: Performed By: #### 2 208604, 4265553, 8794444, 8915583, 01553938, 86593992, 29211797 ####[facility] [address] [place] [address] Calcium [Mass/Vol] 8.3 mg/dL Low 8.9-11.1 [facility] Comment on above: Performed By: #### 2 728260, 9504213, 9251848, 0826219, 34533489, 22189744, 67097576 ####[facility] [address] [place] [address] Chloride [Moles/Vol] 99 mmol/L Low 101-111 [facility] Comment on above: Performed By: #### 2 914406, 1561235, 9840378, 8205935, 42023666, 98261976, 61797312 ####[facility] [address] [place] [address] CO2 [Moles/Vol] 21 mmol/L Normal 21-31 [facility] Comment on above: Performed By: #### 2 205243, 9761143, 0095691, 6720219, 28972221, 62458897, 55475880 ####[facility] [address] [place] [address] Glucose [Mass/Vol] 127 mg/dL Normal 55-199 [facility] Comment on above: Result Comment: If t his glucose result represents a fasting glucose, interpretation should refer to the following reference range: 55-99 mg/dL Performed By: #### 2 998597, 0132455, 9996089, 5421184, 19057096, 81586313, 25362398 ####[facility] [address] [place] [address] Potassium [Moles/Vol] 3.5 mmol/L Normal 3.5-5.3 [facility] Comment on above: Performed By: #### 2 882385, 7000448, 6576743, 7469384, 66489912, 91210756, 83112959 ####[facility] [address] [place] [address] Sodium [Moles/Vol] 132 mmol/L Low 135-145 [facility] Comment on above: Performed By: #### 2 888063, 1873943, 7005404, 2281539, 08472660, 78906839, 26013487 ####[facility] [address] [place] [address] CBC w/ Auto Diffon Erythrocyte distribution width (RBC) [Ratio] 14.2 % Normal 10.9-14.2 [facility] Comment on above: Performed By: #### 2 416353, 9356724, 7621187, 1473145, 08515243, 52712430, 04016766 ####[facility] [address] [place] [address] Hematocrit (Bld) [Volume fraction] 39.9 % Normal 34.0-46.0 [facility] Comment on above: Performed By: #### 2 157584, 6252674, 2385040, 4546607, 09695010, 51849879, 12626431 ####[facility] [address] [place] [address] Hemoglobin (Bld) [Mass/Vol] 13.0 g/dL Normal 12.0-16.0 [facility] Comment on above: Performed By: #### 2 642948, 0848552, 7344355, 6593880, 73995190, 09372576, 42551487 ####[facility] [address] [place] [address] MCH (RBC) [Entitic mass] 27.3 pg Normal 27.0-34.0 [facility] Comment on above: Performed By: #### 2 143924, 6107441, 6114755, 3822532, 23025214, 63143114, 22639734 ####[facility] [address] [place] [address] MCHC (RBC) [Mass/Vol] 32.7 g/dL Normal 31.4-36.0 [facility] Comment on above: Performed By: #### 2 483485, 1768921, 5430093, 8236833, 48921939, 00762294, 09395197 ####[facility] [address] [place] [address] MCV (RBC) [Entitic vol] 83.4 fL Normal 80.0-100.0 [facility] Comment on above: Performed By: #### 2 238042, 8411064, 2818518, 7382272, 56679255, 85833842, 87903189 ####[address] [address] Platelet mean volume (Bld) [Entitic vol] 7.8 fL Normal 6.4-10.8 [facility] Comment on above: Performed By: #### 2 012368, 4955666, 3807644, 0110709, 93162805, 64372238, 97377727 ####[facility] [address] [place] [address] Platelets (Bld) [#/Vol] 188.0 E9/L Normal 150.0-500.0 [facility] Comment on above: Performed By: #### 2 670101, 5074320, 2602952, 4289964, 89568974, 82216963, 55161864 ####[address] [address] RBC (Bld) [#/Vol] 4.8 E12/L Normal 4.3-5.9 [facility] Comment on above: Performed By: #### 2 060508, 1267594, 1790795, 1169386, 11981970, 81034057, 25477639 ####[address] [address] WBC corrected for nucl RBC Auto (Bld) [#/Vol] 4.9 E9/L Normal 4.0-11.0 [facility] Comment on above: Performed By: #### 2 453016, 4741070, 8593476, 5052372, 75592508, 43839043, 90073710 ####[facility] [address] [place] [address] CTA Cheston 03-12-2021 CTA Chest Exam Date/Time: [...] 370 Contrast amount in ml's: 79 Normal [facility] Consent for Treatmenton 0 Consent for Treatment [id number]#1 .00CD:127 Normal [facility] D-Dimeron 03-12-2021 Fibrin D-dimer FEU (PPP) [Mass/Vol] 586 [id number] Abnormal 215-500 [facility] Comment on above: Result Comment: Resu [...] infections Liver cirrhosis Performed By: #### 2 989807, 2229678, 4570189, 6388444, 03963038, 41548126, 31568036 ####[facility] [address] [place] [address] Discharge Instructionson Discharge Instructions [id number]# 1.00CD:127 Normal [facility] ED Clinical Summaryon 2020 ED Clinical Summary [place] [id number] ED Clinical Summary Person Information Name: ED MURPHY [facility] Age: 30 Years : 1990 Sex: Female Language: Ukrainian PCP: Tricia Dewey CNP Marital Status: Phone: [phone] MRN: Visit Id: Visit Reason: Fever; Diarrhea; [...] 03/12/2021 12:55:56 03/12/2021 12:55:56 03/12/2021 12:55:56 ADDRESS: [address] [place] [id number] PHYS DOC NOTES: MEDICAL INFORMATION: Prescriptions Given: New Medications [facility], [address] [place], [place] [id number], [phone] albuterol (albuterol CFC free 90 mcg/inh Inh [...] Follow up: With: Address: When: Tricia Dewey [address] [place] [address], [facility], [address] [place] [id number] United Keys (1) In 3 days DIAGNOSIS: COVID-19; Near syncope Normal [facility] ED Note-Physicianon 03-12-20 ED Note-Physician Basic Information Time Seen: Carlos IBARRATal 03/12/2021 09:01 Chief Complaint Pt states shortness [...] puff(s), Inhalation, QID, 8 gram, Refill(s) 0, [facility], 173, cm, 03/12/21 9:08:00 EST, Height/Length Dosing, 125, kg, 03/12/21 9:08:00 EST, Weight Dosing azithromycin, 250 mg, Oral, As Directed, Take two tabs by mouth on day one, then one tab daily, # 6 tab(s), Refills(s) 0, Pharmacy: [facility], 173, cm, 03/12/21 9:08:00 EST, Height/Length Dosing, 125, kg, 03/12/21 9:08:00 EST, Weight Dosing dexamethasone, 6 mg = 1 tab(s), Oral, Daily, X 7 day(s), # 7 tab(s), Refills(s) 0, Pharmacy: [facility], 173, cm, 03/12/21 9:08:00 EST, Height/Length [...] Dewey In 3 days [address] [facility], [address] [place] [address]- Business (1) Additional Instructions: Problem List/Past Medical [...] Past, denies, (more content not included)... Normal [facility] Comment on above: Result Comment: Elec tronically Signed By: Tal Gonzalez DO\.tamar\Date and Time Signed: 03/12/21 12:46 EST ED Patient Education Noteon 03-12-2021 ED Patient Education Note Normal [facility] ED Patient Summaryon 021 ED Patient Summary [address] [address] Patient Discharge Instructions Person Information Name: ED MURPHY Age: 30 Years Arrival Date: 03/12/2021 08:55:19 Discharge Diagnosis: COVID-19; Near syncope Primary Care Physician: Tricia Dewey CNP Provider Information Primary Provider: Tal Gonzalez DO Advanced Communications Technician:None The exam and treatment you received in the Emergency Department were for an urgent problem and are not intended as complete care. It is important that you follow up with a doctor, nurse practitioner, or physician?s dental ceramist assistant for ongoing care. If your symptoms [...] Follow-up Instructions: With: Address: When: Tricia Dewey [address] [place] [address], [address] [place] [id number] [facility] () In 3 days In the event that this physician does not participate in your insurance network, please consult with your insurance company to find a nearby participating provider. Patient Education Materials: A MESSAGE TO ALL PATIENTS REGARDING OPIOIDS PRESCRIPTION OPIOIDS: WHAT YOU NEED TO KNOW Prescription opioids can be used to help relieve plwizmsp-ha-xqetpa pain and are often prescribed following a [...] be struggling with addiction, tell your health animal caretaker and ask for guidance or call SAMHSA?S National Helpline at 5-242-473-HELP. v Source: [place] Department of Health and Human (more content not included)... Normal [facility] PT & PTTon 03-12-2021 aPTT Coag (PPP) [Time] 30.8 second(s) Normal 25.1-36.5 [facility] Comment on above: Result Comment: Hepa rin therapeutic range (represented by Anti-Factor Xa activity of 0.2 - 0.4 U/mL) corresponds to PTT of 56.6 - 109.0 sec. Performed By: #### 2 880406, 6585107, 0141806, 9213931, 30690583, 20811315, 46894857 ####[facility] [address] [place] [address] INR Coag (PPP) [Relative time] 1.2 {INR} Invalid Interpretation Code [facility] Comment on above: Result Comment: INR results are specifically intended to assess patients stabilized on long-term Anticoagulation therapy suggested INR?s ?Less Intensive Anticoagulation? 2.0 ? 3.0 Conventional Range 3.0 ? 4.5 Performed By: #### 2 894870, 7856136, 4832131, 1338794, 50792695, 32057385, 18720058 ####[facility] [address] [place] [address] PT Coag (PPP) [Time] 14.1 second(s) High 10.2-12.9 [facility] Comment on above: Performed By: #### 2 829904, 0014820, 0942262, 9657945, 69166186, 20832751, 09108796 ####[facility] [address] [place] [address] Troponin 0 Hr.on 03-12-2021 Troponin I.cardiac [Mass/Vol] 3.90 pg/mL Low 10.10-27.10 [facility] Comment on above: Result Comment: The 95% CI (Confidence Interval) PPV (Positive Predictive Value) for myocardial infarction in females is 38 pg/mL, in males 51 pg/mL. The results should be used in conjunction with clinical conditions of myocardial infarction. (Access High Sensitivity Troponin I Instructions For Use, Randell Cony, November 2017) Performed By: #### 2 542454, 4250647, 5951720, 4777692, 70149924, 02256488, 79810065 ####[facility] [address] [place] [address] XR Chest Single Viewon 03-12 XR Chest [...] DO Transcribed by: ROBERT Technologist: FAUSTINA Shepherd [facility] eGFRon 03-12-2021 GFR/1.73 sq M.predicted among blacks MDRD (S/P/Bld) [Vol rate/Area] mL/min/{1.73_m2} Normal >=59 [facility] Comment on above: Order Comment: Order added by Discern Expert. Result Comment: eGFR is race adjusted. AA=. Performed By: #### 2 947087, 5022457, 2422380, 3243997, 10240880, 39244516, 45080307 ####[facility] [address] [place] [address] GFR/1.73 sq M.predicted among non-blacks MDRD (S/P/Bld) [Vol rate/Area] mL/min/{1.73_m2} Normal >=59 [facility] Comment on above: Order Comment: Order added by Discern Expert. Result Comment: Ham Marker nandini kidney disease could be indicated at eGFR's of less than 60 mL/min/1.73m2. Kidney failure is indicated at less than 15 mL/min/1.73m2. Performed By: #### 2 398797, 8064844, 6433110, 0690633, 10978302, 25022005, 56879882 ####[facility] [address] [place] [address] Consent for Treatmenton Consent for Treatment [id number] .00CD:127 Normal [facility] Physician Orderon 03-10-2021 Physician Order [id number]# 1.00CD:127 Normal [facility] XR Chest 2 Viewson XR Chest [...] DO Transcribed by: ROBERT Technologist: ISAAC Normal [facility] Vital Signs Date Time Vital Sign Value Performing Clinician Oseas dobbins 10-28-2024 11:25-0400 Body mass index (BMI) [Ratio] 42.61 kg/m2 [employer] Work Phone: [facility] 10-28-2024 11:25-0400 Body weight 129 kg Aquiles Adrian DO Work Phone: [facility] 10-28-2024 11:25-0400 Diastolic blood pressure 70 mm[Hg] [employer] Work Phone: [facility] 10-28-2024 11:25-0400 Systolic blood pressure 108 mm[Hg] Aquiles Adrian DO Work Phone: [facility] 10-21-2024 14:17-0400 Body mass index (BMI) [Ratio] 42.44 kg/m2 [employer] DO Work Phone: [facility] 10-21-2024 14:17-0400 Body weight 128.48 kg Aquiles Adrian DO Work Phone: [facility] 10-21-2024 14:17-0400 Diastolic blood pressure 72 mm[Hg] Aquiles Adrian DO Work Phone: [facility] 10-21-2024 14:17-0400 Systolic blood pressure 110 mm[Hg] Aquiles Adrian DO Work Phone: [facility] 10-14-2024 15:07-0400 Body mass index (BMI) [Ratio] 42.67 kg/m2 Aquiles Adrian DO Work Phone: [facility] 10-14-2024 15:07-0400 Body weight 129.18 kg Aquiles Adrian DO Work Phone: [facility] 10-14-2024 15:07-0400 Diastolic blood pressure 70 mm[Hg] Aquiles Adrian DO Work Phone: [facility] 10-14-2024 15:07-0400 Systolic blood pressure 110 mm[Hg] Aquiles Adrian DO Work Phone: [facility] 09-30-2024 15:47-0400 Body mass index (BMI) [Ratio] 42.37 kg/m2 [employer] Work Phone: [facility] 09-30-2024 15:47-0400 Body weight 128.25 kg [employer] Work Phone: [facility] 09-30-2024 15:47-0400 Diastolic blood pressure 80 mm[Hg] Floewr Otero PA Work Phone: [facility] 09-30-2024 15:47-0400 Systolic blood pressure 130 mm[Hg] Flower Otero PA Work Phone: [facility] 09-17-2024 10:49-0400 Body mass index (BMI) [Ratio] 41.97 kg/m2 Aquiles Adrian DO Work Phone: [facility] 09-17-2024 10:49-0400 Body weight 127.06 kg Aquiles Adrian DO Work Phone: [facility] 09-17-2024 10:49-0400 Diastolic blood pressure 70 mm[Hg] Aquiles Adrian DO Work Phone: [facility] 09-17-2024 10:49-0400 Systolic blood pressure 112 mm[Hg] Aquiles Adrian DO Work Phone: [facility] 08-27-2024 09:21-0400 Body mass index (BMI) [Ratio] 41.52 kg/m2 Flower Shanna PA Work Phone: [facility] 08-27-2024 09:21-0400 Body weight 125.7 kg Flower Shanna PA Work Phone: [facility] 08-27-2024 09:21-0400 Diastolic blood pressure 70 mm[Hg] Flower Shanna PA Work Phone: [facility] 08-27-2024 09:21-0400 Systolic blood pressure 120 mm[Hg] Flower Taos PA Work Phone: [facility] 08-01-2024 09:31-0400 Body mass index (BMI) [Ratio] 41.21 kg/m2 Aquiles Adrian DO Work Phone: [facility] 08-01-2024 09:31-0400 Body weight 124.74 kg Aquiles Adrian DO Work Phone: [facility] 08-01-2024 09:31-0400 Diastolic blood pressure 72 mm[Hg] Aquiles Adrian DO Work Phone: [facility] 08-01-2024 09:31-0400 Systolic blood pressure 112 mm[Hg] Aquiles Adrian DO Work Phone: [facility] 06-03-2024 14:49-0500 Body mass index (BMI) [Ratio] 40.58 kg/m2 Aquiles Adrian DO Work Phone: [facility] 06-03-2024 14:49-0500 Body weight 122.83 kg Aquiles Adrian DO Work Phone: [facility] 06-03-2024 14:49-0500 Diastolic blood pressure 72 mm[Hg] Aquiles Adrian DO Work Phone: [facility] 06-03-2024 14:49-0500 Systolic blood pressure 106 mm[Hg] Aquiles Adrian DO Work Phone: [facility] 05-02-2024 11:56-0500 Body mass index (BMI) [Ratio] 40.28 kg/m2 Aquiles Adrian DO Work Phone: [facility] 05-02-2024 11:56-0500 Body weight 121.93 kg Aquiles Adrian DO Work Phone: [facility] 05-02-2024 11:56-0500 Diastolic blood pressure 70 mm[Hg] Aquiles Adrian DO Work Phone: [facility] 05-02-2024 11:56-0500 Systolic blood pressure 110 mm[Hg] Aquiles Adrian DO Work Phone: [facility] 02-15-2024 14:26-0500 Body mass index (BMI) [Ratio] 41.77 kg/m2 [employer] Work Phone: [facility] 02-15-2024 14:26-0500 Body weight 126.46 kg [employer] Work Phone: [facility] 02-15-2024 14:26-0500 Diastolic blood pressure 80 mm[Hg] [employer] Work Phone: [facility] 02-15-2024 14:26-0500 Systolic blood pressure 120 mm[Hg] [employer] Work Phone: [facility] 02-12-2024 08:50-0500 Body mass index (BMI) [Ratio] 41.8 kg/m2 Aquiles Adrian DO Work Phone: [facility] 02-12-2024 08:50-0500 Body weight 126.55 kg Aquiles Adrian DO Work Phone: [facility] 02-12-2024 08:50-0500 Diastolic blood pressure 72 mm[Hg] Aquiles Adrian DO Work Phone: [facility] 02-12-2024 08:50-0500 Systolic blood pressure 118 mm[Hg] Aquiles Adrian DO Work Phone: [facility] Healthcare Encounters Encounter Date Encounter Type Care Provider Facility Start: 10-29-2024 End: 10-29-2024 Clinisync Result Encounter Aquiles Adrian DO Work Phone: [facility] External Department Unsolicited Start: 10-29-2024 End: 10-29-2024 Clinisync Result Encounter Aquiles Adrian DO Work Phone: [facility] External Department Unsolicited Start: 10-28-2024 End: 10-28-2024 Bamboo flowsheet Aquiles Adrian DO Work Phone: [facility] Start: 10-28-2024 End: 10-28-2024 Bamboo flowsheet Aquiles Adrian DO Work Phone: [facility] Start: 10-28-2024 End: 10-28-2024 flow sheet Aquiles Adrian DO Work Phone: [facility] Comment on above: Third trimester preg lakia ([facility]); 37 weeks gestation of ([facility]) Start: 10-28-2024 End: 10-28-2024 ambulatory AQUILES ADRIAN Not Available Start: 10-22-2024 End: 10-22-2024 Clinisync Result Encounter Aquiles Adrian DO Work Phone: [facility] External Department Unsolicited Start: 10-22-2024 End: 10-22-2024 Clinisync Result Encounter Aquiles Adrian DO Work Phone: [facility] External Department Unsolicited Start: 10-21-2024 End: 10-21-2024 ambulatory AQUILES ADRIAN Not Available Start: 10-21-2024 End: 10-21-2024 Bamboo flowsheet Aquiles Adrian DO Work Phone: [facility] Start: 10-21-2024 End: 10-21-2024 Bamboo flowsheet Aquiles Adrian DO Work Phone: [facility] Start: 10-21-2024 End: 10-21-2024 flow sheet Aquiles Adrian DO Work Phone: [facility] Comment on above: Third trimester preg lakia ([facility]); 36 weeks gestation of ([facility]); Multigravida of advanced maternal age in third trimester ([facility]); HSV infection; Excessive growth affecting management of , antepartum, single or unspecified fetus ([facility]) Start: 10-16-2024 End: 10-16-2024 Clinisync Result Encounter Aquiles Adrian DO Work Phone: [facility] External Department Unsolicited Start: 10-16-2024 End: 10-16-2024 Clinisync Result Encounter Aquiles Adrian DO Work Phone: [facility] External Department Unsolicited Start: 10-14-2024 End: 10-14-2024 flow sheet Aquiles Adrian DO Work Phone: [facility] Comment on above: 35 weeks gestation o f ([facility]); Third trimester ([facility]); Multigravida of advanced maternal age in third trimester ([facility]); Excessive growth affecting management of , antepartum, single or unspecified fetus ([facility]); Low iron; HSV infection Start: 10-14-2024 End: [...] Comment on above: Third trimester preg lakia ([facility]); 33 weeks gestation of ([facility]) Start: 09-30-2024 End: 09-30-2024 ambulatory FLOWER [...] Encounter Flower DE LA PAZ Work Phone: [facility] External Department Unsolicited Start: 08-27-2024 End: 08-27-2024 flow sheet Flower DE LA PAZ Work Phone: [facility] Comment on above: Size of fetus incons istent with dates in second trimester (Primary Dx); Third trimester ; 28 weeks gestation of Start: 08-27-2024 End: 08-27-2024 ambulatory FLOWER OTERO Not Available Start: 08-08-2024 End: 08-08-2024 ambulatory AQUILES R [facility] Start: 08-07-2024 End: 08-07-2024 Chart abstracting Scanning Provider External [facility] Start: 08-01-2024 End: 08-01-2024 flow sheet Aquiles Adrian DO Work Phone: [facility] Comment on above: Second trimester [...] Bamboo flowsheet Aquiles Adrian DO Work Phone: [facility] Start: 06-03-2024 End: 06-04-2024 Bamboo flowsheet Aquiles Adrian DO Work Phone: [facility] Start: 06-03-2024 End: 06-04-2024 External Result Encounter Aquiles Adrian DO Work Phone: [facility] External Department Unsolicited Start: 05-02-2024 End: 05-02-2024 Bamboo flowsheet Aquiles Adrian DO Work Phone: [facility] Start: 05-02-2024 End: 05-02-2024 Bamboo flowsheet Aqiules Adrian DO Work Phone: [facility] Start: 05-02-2024 End: 05-02-2024 flow sheet Aquiles Adrian DO Work Phone: [facility] Comment on above: First trimester preg lakia; 11 weeks gestation of Start: 05-02-2024 End: 05-02-2024 ambulatory AQUILES ADRIAN Not Available Start: 04-11-2024 End: 04-11-2024 ambulatory Aquiles Adrian Facility:[facility] Start: 04-11-2024 End: 04-11-2024 Departed Referred Aquiles Adrian DO Work Phone: [facility] Start: 04-11-2024 End: 04-11-2024 Clinisync Result [...] Phone: [facility] Start: 02-12-2024 End: 11-04-2024 Office outpatient visit 15 minutes Aquiles Adrian [...] Date Procedure Procedure Detail Performing Clinician Start: 10-29-2024 OB BPP W NON-STRESS Aquiles Adrian DO Work Phone: Start: 10-28-2024 Urnls dip stick/tabl et rgnt non-auto w/o micrscp Aquiles Adrian DO Work Phone: Start: 10-22-2024 OB BPP W NON-STRESS Aquiles Adrian DO [...] Aquiles Adrian DO Work Phone: Start: 10-02-2024 US OB BPP W NON-STRESS Aquiles Adrian [...] Author Start: 12-09-2024 Influenza vaccination Influenza Vacc [facility] Start: 11-04-2024 End: 11-04-2024 Patient encounter procedure 11/04/2024 9:30 AM EDT Routine [facility] [address] [place] [id number] AdrianAquiles palmer, DO [address] [place] [address] [facility] Start: 10-28-2024 End: 10-28-2024 Patient encounter procedure [facility] Comment on above: Arrived Start: 10-21-2024 End: 10-21-2025 CULTURE, GROUP B STREP WITH SUSCEPTIBLITY CULTURE, GROUP B STREP WITH SUSCEPTIBLITY Lab Routine Third trimester ([facility]) Expected: 10/21/2024, Expires: 10/21/2025 [facility] Work Phone: Comment on above: Expected: 10/21/2024 , Expires: 10/21/2025 Start: 10-21-2024 End: 10-21-2024 Patient encounter procedure 10/21/2024 2:00 PM EDT Routine [facility] [address] [place] [id number] Aquiles Campbell, DO [address] [place], [place] [id number] [facility] Start: 10-14-2024 End: 10-14-2024 Patient encounter procedure 10/14/2024 2:30 PM EDT Routine [facility] [address] [place] [id number] Aquiles Campbell, DO [address] [place] [address] [facility] Start: 10-14-2024 End: 10-14-2024 Professional / ancillary services management 10/14/2024 2:00 PM EDT Ancillary Procedure [facility] [address] [place] [address] [facility] Start: 09-30-2024 End: 09-30-2024 [...] [facility] [address] [place] [phone] Aquiles Campbell DO [address] [facility] [place] [address] [facility] Start: 09-17-2024 End: 09-17-2024 Professional / ancillary services management 09/17/2024 9:30 AM EDT Ancillary Procedure [facility] [address] [place] [address] [facility] Start: 08-27-2024 End: [...] 08/08/2024 8:00 AM EDT Appointment [facility] [place] [address] [facility] [address] [place] [address] [facility] [place] Start: 07-01-2024 End: 07-01-2024 Patient encounter procedure 07/01/2024 9:40 AM EDT Routine [facility] [address] [place] [address] Flower Otero PA [address] [place] [address] [facility] Start: 07-01-2024 End: 07-01-2024 Professional / ancillary services management 07/01/2024 8:30 AM EDT Ancillary Procedure [facility] [address] [place] [address] [facility] Start: 06-11-2024 End: 06-11-2024 Patient encounter procedure 06/11/2024 8:40 AM EST Office Visit [facility] [address] [place] [address] Aquiles Campbell, DO [address] [place] [address] [facility] Start: 06-03-2024 End: 06-03-2024 Patient encounter procedure 06/03/2024 2:20 PM EST Routine [facility] [address] [place] [address] Aquiles Campbell, DO [address] [facility] [place] [address] [facility] Start: 06-03-2024 End: 08-01-2024 Alpha fetoprotein, maternal Alpha fetoprotein, maternal Lab Routine 16 weeks gestation of Expected: 06/03/2024 (Approximate), Expires: 08/01/2024 [facility] Comment on above: Expected: 06/03/2024 (Approximate), Expires: 08/01/2024 Start: 06-03-2024 End: 06-03-2025 US for US OB 14+ weeks anatomy scan Imaging Routine Screening, , for anatomic survey Expected: 06/03/2024, Expires: 06/03/2025 [facility] Comment on above: Expected: 06/03/2024 , Expires: 06/03/2025 Start: 05-02-2024 End: 05-02-2024 Patient encounter procedure [facility] Comment on above: Arrived Start: 04-11-2024 Urine culture [facility] Start: 04-11-2024 Bacteria identified in Urine by Culture Urine Culture [facility] Start: 04-11-2024 End: 04-11-2024 ambulatory 04/11/2024 1:00 PM EST Initial [facility] [address] [place] [id number] [facility] Start: 04-11-2024 End: 04-11-2024 Professional / ancillary services management 04/11/2024 12:30 PM EST Ancillary Procedure [facility] [address] [place] [id number] [facility] Start: 02-15-2024 End: 02-15-2024 Patient encounter procedure [facility] Comment on above: Arrived Start: 02-12-2024 End: 02-12-2024 Patient encounter procedure 02/12/2024 8:50 AM EST Office Visit [facility] [address] [place] [id number] Aquiles Campbell, DO [address] [place], [place] [id number] Arrived [facility] Comment on above: Arrived Start: 2009 Screening for malign ant neoplasm of cervix Pap Smear [facility] Start: 11-29-2007 DTaP,Tdap and Td Vaccines (1 - Tdap) DTaP,Tdap and Td Vaccines (1 - Tdap) [facility] Start: 2006 Adult BMI Screening Adult BMI Screen ing [facility] Start: 2000 Depression Screening Depression Scre ening [facility] Start: 2000 Tobacco Screening Tobacco Screening [facility] CHLAMYDIA TRACHOMATI S (GENITO/STI) CHLAMYDIA TRACHOMATIS [...] with dates in second trimester Ordered: 08/27/2024 [facility] Comment on above: Ordered: 08/27/2024 Human papilloma viru s DNA [Presence] in Unspecified specimen by Probe with amplification HPV DNA probe, amplified Microbiology Routine Well woman exam with routine gynecological exam Ordered: 02/15/2024 [facility] Comment on above: Ordered: 02/15/2024 Neisseria gonorrhoea e DNA [Presence] in Unspecified specimen by LYNNETTE with probe detection Neisseria gonorrhea DNA probe, direct Lab Routine STD exposure Ordered: 06/03/2024 [facility] Comment on above: Ordered: 06/03/2024 SURESWAB(R) ADVANCED VAGINITIS PLUS, TMA SURESWAB(R) ADVANCED VAGINITIS PLUS, TMA Pathology and Cytology Routine STD exposure Ordered: 06/03/2024 [facility] Work Phone: Comment on above: Ordered: 06/03/2024 Payers Date Payer Category Payer Self-pay 2024 [employer] Blue [facility] [id number] 2023 Blue Cross Blue [facility] [id number] [id number] 2023 Unknown [id number] 1988 Unknown [id number] 2.16.840.1.361180.3.579. 2.593 1988 Unknown [id number] 2.16.840.1.413700.3.579. 2.593 1988 Unknown [id number] 2.16.840.1.513962.3.579. 2.593 1988 Unknown [id number] 2.16.840.1.820622.3.579. 2.593 1988 Unknown [id number] 2.16.840.1.414773.3.579. 2.593 1988 Unknown [id number] 2.16.840.1.503718.3.579. 2.593 1988 Unknown [id number] 2.16.840.1.269315.3.579. 2.593 1988 Unknown [id number] 2.16.840.1.629963.3.579. 2.593 1988 Unknown [id number] 2.16840.1.878100.3.579. 2.593 1988 Unknown [id number] 2.16840.1.304356.3.579. 2.593 1988 Unknown [id number] 2.16.840.1.353240.3.579. 2.593 1988 Unknown [id number] 2.16.840.1.266602.3.579. 2.593 1988 Unknown [id number] 2.16840.1.824041.3.579. 2.1286 1988 Unknown [id number] 2.16.840.1.633625.3.579. 2.1259 1988 Unknown [id number] 2.16.840.1.682457.3.579. 2.1259 1988 Unknown [id number] 2.16.840.1.628877.3.579. 2.1259 1988 Unknown [id number] 2.16.840.1.455930.3.579. 2.1259 1988 Unknown [id number] 2.16.840.1.577155.3.579. 2.1259 1988 Unknown [id number] 2.16.840.1.741713.3.579. 2.1259 1988 Unknown [id number] 2.16.840.1.084497.3.579. 2.1259 1988 Unknown [id number] 2.16.840.1.629238.3.579. 2.9 1988 Unknown [id number] 2.16.840.1.125643.3.579. 2.1259 1988 Unknown [id number] 2.840.1.485068.3.579. 2.1258 1988 Unknown [id number] 2.840.1.220498.3.579. 2.9 1988 Unknown [id number] .840.1.442617.3.579. 2.1258 1988 Unknown [id number] 2.840.1.883326.3.579. 2.1258 1988 Unknown [id number] 2.840.1.056346.3.579. 2.9 1988 Unknown [id number] 2.16840.1.667147.3.579. 2.9 1988 Unknown [id number] .840.1.933132.3.579. 2.9 1988 Unknown [id number] 2.840.1.866154.3.579. 2.1259 1988 Unknown [id number] .840.1.170902.3.579. 2.1259 1959 Private Health Insurance [id number] Unknown [id number] 2.840.1.443968.3.579. 2.531 Unknown Erika BC/BS [id number] Social History Date Type Detail Facility Start: 12-01-2022 End: 08-07-2024 Tobacco smoking status NHIS Never smoked tobacco [facility] Start: 08-24-2023 End: 10-14-2024 Alcoholic beverage intake Lifetime non-drinker (finding) [facility] Start: 12-01-2022 End: 02-12-2024 History of Social function [facility] Start: 12-01-2022 End: 02-12-2024 Tobacco use panel [facility] Start: 12-01-2022 Education [facility] Start: 12-01-2022 Alcohol Comment Caffeine intake: non e [facility] Start: 1990 Sex assigned at Not on file [facility] Start: 02-25-2024 [facility] Tobacco smoking stat us COIS Unknown if ever smoked [facility] Work Phone: Start: 04-12-2024 End: 08-05-2024 Sex Female (finding) [facility] Start: 1990 Sex Assigned At Female F [facility] Start: 08-07-2024 Tobacco use and exposure Smokeless tobacco non-user [facility] Medical Equipment Procedure Code Equipment Code Equipment Origin al Text Equipment Identifier Dates 1 strip by In Vi tro route Daily Use in the morning prior to breakfast, 1 hour after each meal for a total of 4times daily. [id number] Start: 07-25-2024 End: 08-27-2024 1 each by In Vit ro route Daily Use to check FSBS four times daily [id number] Start: 07-25-2024 End: 08-27-2024 Clinical Notes 02-12-2024 to 10-28-2024 Svetlana Simmons NP - 10/28/2024 11:20 AM Sagar Candelaria LPN - 10/21/2024 2:00 PM Sagar Candelaria LPN - 10/14/2024 2:30 PM BRAIN Schmidt - 09/30/2024 3:30 PM EDT Note Date & Type Note Facility 10-28-2024 History of Presen t illness Narrative Reason for Appointment: Patient ID: Ed Murphy is a 33 y.o. female who presents for Routine Visit Patient presents today for Return OB appointment. MEDICATIONS Current Outpatient Medications Medication Instructions Lmjfppyp-Wtx-Ir-FA ( 1 + IRON PO) valACYclovir (VALTREX) [...] Yeast infection 12/02/2022 31 weeks gestation of ([facility]) 09/17/2024 Third trimester ([facility]) 09/17/2024 Multigravida of advanced maternal age in third trimester ([facility]) 09/17/2024 Resolved Ambulatory Problems Diagnosis Date Noted Bleeding in early ([facility]) 12/02/2022 Past Medical History: Diagnosis Date Frequent UTI Herpes History of chlamydia 2008 History of depression 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 Exam conducted with a six pack packer present. Vitals: Estimated body mass index is 42.61 kg/m as calculated from the following: Height as of 08/22/22: 5' 8.5 . Weight as of this encounter: 284 lb 6.4 oz. BP: 108/70 Patient's last menstrual period was 02/11/2024. ASSESSMENT & PLAN ICD-10-CM 1. Third trimester ([facility]) Z34.93 POCT urinalysis dipstick manually resulted 2. 37 weeks gestation of ([facility]) Z3A.37 POCT urinalysis dipstick manually resulted [...] by Svetlana Simmons NP on behalf of: Aquiles Campbell DO documented in this encounter [facility] 10-21-2024 History of Presen t illness Narrative Reason for Appointment: Patient ID: Ed Murphy is a 33 y.o. female who presents for Routine Visit Patient presents today for Return OB appointment. MEDICATIONS Current Outpatient Medications Medication Instructions Ywvlfeye-Pzm-Zb-FA ( 1 + IRON PO) valACYclovir (VALTREX) [...] Yeast infection 12/02/2022 31 weeks gestation of ([facility]) 09/17/2024 Third trimester ([facility]) 09/17/2024 Multigravida of advanced maternal age in third trimester ([facility]) 09/17/2024 Resolved Ambulatory Problems Diagnosis Date Noted Bleeding in early ([facility]) 12/02/2022 Past Medical History: Diagnosis Date Frequent UTI Herpes History of chlamydia 2008 History of depression 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 Exam conducted with a six pack packer present. Vitals: Estimated body mass index is 42.44 kg/m as calculated from the following: Height as of 08/22/22: 5' 8.5 . Weight as of this encounter: 283 lb 4 oz. BP: 110/72 Patient's last menstrual period was 02/11/2024. ASSESSMENT & PLAN ICD-10-CM 1. Third trimester ([facility]) Z34.93 CULTURE, GROUP B STREP WITH SUSCEPTIBLITY CULTURE, GROUP B STREP WITH SUSCEPTIBLITY POCT urinalysis dipstick manually resulted 2. 36 weeks gestation of ([facility]) Z3A.36 3. Multigravida of advanced maternal age in third trimester ([facility]) O09.523 4. HSV infection B00.9 5. Excessive growth affecting management of , antepartum, single or unspecified fetus ([facility]) O36.60X0 Patient is doing well but [...] Aquiles Campbell DO documented in this encounter [facility] 10-14-2024 History of Presen t illness Narrative Reason for Appointment: Patient ID: Ed Murphy is a 33 y.o. female who presents for Routine Visit Patient presents today for Return OB appointment. MEDICATIONS Current Outpatient Medications Medication Instructions Eorbpjiy-Wbo-Xh-FA ( 1 + IRON PO) ALLERGIES Allergies Allergen Reactions Cefadroxil Hives Other Reaction(s): hives, Unknown Other Reaction(s): hives, rash Latex Itching Other Reaction(s): Itching Other Reaction(s): Hives Paroxetine Other Reaction(s): Unknown PROBLEMS Active Ambulatory Problems Diagnosis Date Noted Anovulation 12/02/2022 DUB (dysfunctional uterine bleeding) 12/02/2022 Menstrual disorder 12/02/2022 Missed menses 12/02/2022 Yeast infection 12/02/2022 31 weeks gestation of ([facility]) 09/17/2024 Third trimester ([facility]) 09/17/2024 Multigravida of advanced maternal age in third trimester ([facility]) 09/17/2024 Resolved Ambulatory Problems Diagnosis Date Noted Bleeding in early ([facility]) 12/02/2022 Past Medical History: Diagnosis Date Frequent UTI Herpes History of chlamydia 2007 History of depression 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 Exam conducted with a six pack packer present. Vitals: Estimated body mass index is 42.67 kg/m as calculated from the following: Height as of 08/22/22: 5' 8.5 . Weight as of this encounter: 284 lb 12.8 oz. BP: 110/70 Patient's last menstrual period was 02/11/2024. ASSESSMENT & PLAN ICD-10-CM 1. 35 weeks gestation of ([facility]) Z3A.35 POCT urinalysis dipstick manually resulted 2. Third trimester ([facility]) Z34.93 POCT urinalysis dipstick manually resulted 3. Multigravida of advanced maternal age in third trimester ([facility]) O09.523 4. Excessive growth affecting management of , antepartum, single or unspecified fetus ([facility]) O36.60X0 5. Low iron E61.1 Patient presents today for a routine obstetrics appointment. Patient is currently 35w1d with a Estimated Date of Delivery: 11/17/24. Patient aware that Valtrex will be sent to [facility] for history of HSV. Patient will return to clinic in 1 week for routine OB appointment and GBS will be obtained at that time. Documented by Daniela Candelaria LPN... on behalf of: Aquiles Campbell DO documented in this encounter [facility] 09-30-2024 History of Presen t [...] meal for a total of 4times daily. Xwxpcokj-Nfc-Mh-FA ( 1 + IRON PO) ALLERGIES Allergies Allergen Reactions Cefadroxil Hives Other Reaction(s): hives, Unknown Other Reaction(s): hives, rash Latex Itching Other Reaction(s): Itching Other Reaction(s): Hives Paroxetine Other Reaction(s): Unknown PROBLEMS Active Ambulatory Problems Diagnosis Date Noted Anovulation 12/02/2022 DUB (dysfunctional uterine bleeding) 12/02/2022 Menstrual disorder 12/02/2022 Missed menses 12/02/2022 Yeast infection 12/02/2022 31 weeks gestation of ([facility]) 09/17/2024 Third trimester ([facility]) 09/17/2024 Multigravida of advanced maternal age in third trimester ([facility]) 09/17/2024 Resolved Ambulatory Problems Diagnosis Date Noted Bleeding in early ([facility]) 12/02/2022 Past Medical History: Diagnosis Date Frequent UTI Herpes History of chlamydia 2008 History of depression 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 Personal history of other medical treatment ([facility]) [place] teeth removed HISTORY PAST MEDICAL HISTORY SOCIAL HISTORY Past Medical History: Diagnosis Date Bleeding in early ([facility]) 12/02/2022 Frequent UTI Herpes History of chlamydia 2007 History of depression no meds 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 Third trimester ([facility]) Z34.93 POCT urinalysis dipstick manually resulted 2. 33 weeks gestation of ([facility]) Z3A.33 Return OB: Patient presents today [...] of: BRAIN Martinez documented in this encounter [facility] 09-17-2024 History of Presen t [...] iron polysaccharides (PROFE) 391.3 mg, Oral, Daily Wlyclhec-Nio-Py-FA ( 1 + IRON PO) ALLERGIES Allergies [...] 2011 Personal history of other medical treatment [place] teeth removed HISTORY PAST MEDICAL HISTORY SOCIAL HISTORY Past Medical History: Diagnosis Date Bleeding in early 12/02/2022 Frequent UTI Herpes History of chlamydia 2007 History of depression no meds 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 Personal history of other medical treatment Frenectomy x2 [place] teeth removed Social History Tobacco Use Smoking [...] nursing note reviewed. Exam conducted with a six pack packer present. Vitals: Estimated body mass index is [...] Aquiles Campbell DO documented in this encounter [facility] 08-27-2024 History of Presen t illness Narrative Reason for Appointment: Patient ID: Ed Murphy is a 33 y.o. female who presents for Routine Visit Patient presents today for Return OB appointment. MEDICATIONS Current Outpatient Medications Medication Instructions Alcohol Swabs (Alcohol Prep Pad) 70 % pads 1 Pad, Topical, Daily, Use four times daily to check FSBS. Blood Glucose Monitoring Suppl (DYNAGENT SOFTWARE SL-[place] Glucometer) w/Device kit 1 kit, Does not [...] Use to check FSBS four times daily Qqmajsyq-Sew-Ux-FA ( 1 + IRON PO) ALLERGIES Allergies [...] 2010 Personal history of other medical treatment [place] teeth removed HISTORY PAST MEDICAL HISTORY SOCIAL HISTORY Past Medical History: Diagnosis Date Bleeding in early 12/02/2022 Frequent UTI Herpes History of chlamydia 2008 History of depression no meds 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 Personal history of other medical treatment Frenectomy x2 [place] teeth removed Social History Tobacco Use Smoking [...] day. Patient going on a trip to [facility], she will return at 31 weeks. [...] of: BRAIN Martinez documented in this encounter [facility] 08-01-2024 History of Presen t illness Narrative Reason for Appointment: Patient ID: Ed Murphy is a 33 y.o. female who presents for Routine Visit Patient presents today for Return OB appointment. MEDICATIONS Current Outpatient Medications Medication Instructions Alcohol Swabs (Alcohol Prep Pad) 70 % pads 1 Pad, Topical, Daily, Use four times daily to check FSBS. Blood Glucose Monitoring Suppl (D-[place] Glucometer) w/Device kit 1 kit, Does not [...] Use to check FSBS four times daily Xtylyngx-Eui-Nt-FA ( 1 + IRON PO) ALLERGIES Allergies [...] 2010 Personal history of other medical treatment [place] teeth removed HISTORY PAST MEDICAL HISTORY SOCIAL HISTORY Past Medical History: Diagnosis Date Bleeding in early 12/02/2022 Frequent UTI Herpes History of chlamydia 2008 History of depression no meds 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 Personal history of other medical treatment Frenectomy x2 [place] teeth removed Social History Tobacco Use Smoking [...] nursing note reviewed. Exam conducted with a six pack packer present. Vitals: Estimated body mass index is [...] not cleared. Patient will be [facility] to [facility] for Level II Scan and consult if needed. Discussed patient upcoming vacation and precautions given. Patient will have growth scan start at 28 weeks gestation. Patient to return to clinic in 4 weeks. Patient to drop off FSBS results for routine in the meantime. Documented by Daniela Candelaria LPN on behalf of: Aquiles Campbell DO documented in this encounter [facility] 06-03-2024 History of Presen t illness Narrative Reason for Appointment: Patient ID: dE Murphy is a 33 y.o. female who presents for Routine Visit Patient presents today for Return OB appointment. MEDICATIONS Current Outpatient Medications Medication Instructions Hmwhooje-Jtj-Qy-FA ( 1 + IRON PO) Progesterone 200 [...] 2010 Personal history of other medical treatment [place] teeth removed HISTORY PAST MEDICAL HISTORY SOCIAL HISTORY Past Medical History: Diagnosis Date Bleeding in early 12/02/2022 Frequent UTI Herpes History of chlamydia 2008 History of depression no meds 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 Personal history of other medical treatment Frenectomy x2 [place] teeth removed Social History Tobacco Use Smoking [...] nursing note reviewed. Exam conducted with a six pack packer present. Vitals: Estimated body mass index is [...] off on referral at this time. Discussed [place] testing if patient desires to check for genetic testing and patient declines at this time as well. Obtained vaginal cultures without issue & patient to return to clinic in 4 weeks for routine OB appointment. Documented by Daniela Candelaria LPN on behalf of: Aquiles Campbell DO documented in this encounter [facility] 05-02-2024 History of Presen t illness Narrative Reason for Appointment: Patient ID: Ed Murphy is a 33 y.o. female who presents for Routine Visit Patient presents today for Return OB appointment. MEDICATIONS Current Outpatient Medications Medication Instructions Pzbcpyzx-Yaw-Qv-FA ( 1 + IRON PO) Vit-Fe Qmjitxm-OS-EAK ( VITAMIN/MIN +DHA PO) Progesterone 200 MG [...] 2010 Personal history of other medical treatment [place] teeth removed HISTORY PAST MEDICAL HISTORY SOCIAL HISTORY Past Medical History: Diagnosis Date Bleeding in early 12/02/2022 Frequent UTI Herpes History of chlamydia 2008 History of depression no meds 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 Personal history of other medical treatment Frenectomy x2 [place] teeth removed Social History Tobacco Use Smoking [...] of: ray martinez documented in this encounter [facility] 02-15-2024 History of Presen t [...] split. letrozole (FEMARA) 2.5 mg, Oral, Daily Ltjczprs-Ufy-Wa-FA ( 1 + IRON PO) Vit-Fe Nrmyuhj-ES-RXF ( VITAMIN/MIN +DHA PO) ALLERGIES Allergies Allergen [...] 2010 Personal history of other medical treatment [place] teeth removed HISTORY PAST MEDICAL HISTORY SOCIAL HISTORY Past Medical History: Diagnosis Date Bleeding in early 12/02/2022 Frequent UTI Herpes History of chlamydia 2008 History of depression no meds 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 Personal history of other medical treatment Frenectomy x2 [place] teeth removed Social History Tobacco Use Smoking [...] nursing note reviewed. Exam conducted with a six pack packer present. Vitals: Estimated body mass index is [...] of: BRAIN Martinez documented in this encounter [facility] 02-12-2024 History of Presen t illness Narrative Reason for Appointment: Patient ID: Ed Murphy is a 33 y.o. female who presents for Infertility (Pt present today to discuss infertility) Patient presents today for Consult appointment. MEDICATIONS Current Outpatient Medications Medication Instructions Mpawijix-Sxl-Gn-FA ( 1 + IRON PO) Vit-Fe Kmfucrm-WL-YAN ( VITAMIN/MIN +DHA PO) ALLERGIES Allergies Allergen [...] 2010 Personal history of other medical treatment [place] teeth removed HISTORY PAST MEDICAL HISTORY SOCIAL HISTORY Past Medical History: Diagnosis Date Bleeding in early 12/02/2022 Frequent UTI Herpes History of chlamydia 2008 History of depression no meds 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 Personal history of other medical treatment Frenectomy x2 [place] teeth removed Social History Tobacco Use Smoking [...] nursing note reviewed. Exam conducted with a six pack packer present. Vitals: Estimated body mass index is [...] [facility] Phone: Evaluation note* Diagnosis [...] fetus ([facility]) [facility]* Diagnosis Third trimester ([facility]) state, incidental 37 weeks gestation of ([facility]) documented in this encounter [facility] HealthcareInstructionsNot on filedocumented in [facility] Purpose Family History No [...] and content) DATE CREATED AUTHOR 07/05/2021 [facility] DATE CREATED AUTHOR AUTHOR'S ORGANIZ ATION 08/23/2022 [facility] DATE CREATED AUTHOR AUTHOR'S ORGANIZ ATION 04/19/2024 [facility] DATE CREATED AUTHOR AUTHOR'S ORGANIZ ATION 08/13/2024 [facility] DATE CREATED AUTHOR AUTHOR'S ORGANIZ ATION 10/29/2024 [facility] EPIC Reason for Visit [...] BE BASED ON THE PRIMARY CLINICAL RECORDS. [facility]. provides no warranty or guarantee of the accuracy or completeness of information in this document.
== END 2024-11-01 08:40 | disposition home or self-care (01) ==
LOC: FBCO 08:02 → FBC 08:04
PROVIDERS: Visit Provider Obstetrics & Gynecology
DX: O09.523 Supervision of elderly multigravida, third trimester (principal); Z3A.37 37 weeks gestation of pregnancy
CPT/HCPCS: 59025

== ENCOUNTER 2024-11-05 09:01 | Outpatient (OUT) | payer BC, SELFPAY ==
--- OUTSIDE RECORDS SUMMARY | 2024-10-28 11:20 | XMS_ITS | Encounter Summary ---
Author Organization [facility] Address [address] [place] [address] Care Team Providers Care Psychologists Name Role Phone Unavailable Primary Care Provider Unavailabl e Reason for Visit * Reason Comments Routine Visit Encounter Details Date Type Department Care Team (Late st Contact Info) Description 10/28/2024 11:20 AM EDT Routine [facility] [address] [facility] [phone] Theodore Campbell DO [address] [place] [address] Third trimester ([facility]); 37 weeks gestation of ([facility]) Social History Tobacco Use Types [...] Start Date Job End Date Works at [employer] Not on file Not on file Not [...] documented in this encounter Progress Notes * Svetlana Simmons NP - 10/28/2024 11:20 AM EDT Reason for Appointment: Patient ID: Beulah Murphy is a 33 y.o. female who presents for Routine Visit Patient presents today for Return OB appointment. MEDICATIONS Current Outpatient Medications Medication Instructions Ojhuypea-Sng-Fe-FA ( 1 + IRON PO) valACYclovir (VALTREX) [...] Yeast infection 12/02/2022 31 weeks gestation of ([facility]) 09/17/2024 Third trimester ([facility]) 09/17/2024 Multigravida of advanced maternal age in third trimester ([facility]) 09/17/2024 Resolved Ambulatory Problems Diagnosis Date Noted Bleeding in early ([facility]) 12/02/2022 Past Medical History: Diagnosis Date Frequent UTI Herpes History of chlamydia 2008 History of depression 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 Exam conducted with a ophthalmic technician apprentice present. Vitals: Estimated body mass index is 42.61 kg/m?? as calculated from the following: Height as of 08/22/22: 5' 8.5 . Weight as of this encounter: 284 lb 6.4 oz. BP: 108/70 Patient's last menstrual period was 02/11/2024. ASSESSMENT & PLAN ICD-10-CM 1. Third trimester ([facility]) Z34.93 POCT urinalysis dipstick manually resulted 2. 37 weeks gestation of ([facility]) Z3A.37 POCT urinalysis dipstick manually resulted Return OB: Patient presents today for a routine obstetrics appointment. Patient is currently 37w1d . Patient states she is doing well [...] week for routine OB appointment. Documented by Svetlana Simmons NP on behalf of: Theodore Campbell DO documented in this encounter Plan of Treatment Upcoming Encounters Date Type Department Care Team (Late st Contact Info) Description 11/19/2024 1:30 PM EDT Office Visit [facility] [address] [facility] [place] [phone] Flower Joyce PA [address] [place] [place] [address] documented as of this encounter Procedures Procedure Name Priority Date/Time Associated Diagnosis Comments POCT URINALYSIS DIPSTICK Routine 10/28/2024 11:43 AM EDT Third trimester ([facility]) 37 weeks gestation of ([facility]) documented in this encounter Results [...] Negative - 1999(20) ++++ mg/dL Urobilinogen, UA 1.0 0.2 - 12 mg/dL Leukocytes, UA Negative Negative - 500+++ Jodi/mcL Nitrite, UA Negative Negative - Positive Urine 10/28/2024 11:4 3 AM EDT Theodore Campbell DO POINT OF CARE TEST ENTER/EDIT OR DERABLES Final Result documented in this encounter Visit Diagnoses Diagnosis Third trimester ([facility]) state, incidental 37 weeks gestation of ([facility]) documented in this encounter
--- OUTSIDE RECORDS SUMMARY | 2024-11-04 09:30 | XMS_ITS | Encounter Summary ---
Author Organization [facility] Address [address] [place] [address] Care Team Providers Care Regional Maintenance Manager Name Role Phone Unavailable Primary Care Provider Unavailabl e Reason for Visit * Reason Comments Routine Visit Encounter Details Date Type Department Care Team (Late st Contact Info) Description 11/04/2024 9:30 AM EDT Routine [facility] [address] [place] [address] Theodore Campbell DO [address] [place], [place] [id number] Third trimester ([facility]); 38 weeks gestation of ([facility]); HSV infection; Multigravida of advanced maternal age in third trimester ([facility]) Social History Tobacco Use Types Packs/Day Years [...] Start Date Job End Date Works at [employer] Not on file Not on file Not on file documented as of this encounter Progress Notes * Svetlana Simmons, ENERGY SALES BROKER - 11/04/2024 9:30 AM EDT Reason for Appointment: Patient ID: Beulah Murphy is a 33 y.o. female who presents for Routine Visit Patient presents today for Return OB appointment. MEDICATIONS Current Outpatient Medications Medication Instructions iron polysaccharides (ProFe) 391.3 (180 Fe) MG capsule Multiple Vitamin (Multivitamin Adult) tablet Orally Sgnzqzth-Ryr-Sr-FA ( 1 + IRON PO) progesterone 200 mg, Oral, Daily RT valACYclovir (VALTREX) 500 mg, Oral, Daily ALLERGIES Allergies Allergen Reactions Cefadroxil Hives Other Reaction(s): hives, Unknown Other Reaction(s): hives, rash Latex Itching Other Reaction(s): Itching Other Reaction(s): Hives Paroxetine Other Reaction(s): Unknown PROBLEMS Active Ambulatory Problems Diagnosis Date Noted Anovulation 12/02/2022 DUB (dysfunctional uterine bleeding) 12/02/2022 Menstrual disorder 12/02/2022 Missed menses 12/02/2022 Yeast infection 12/02/2022 31 weeks gestation of ([facility]) 09/17/2024 Third trimester ([facility]) 09/17/2024 Multigravida of advanced maternal age in third trimester ([facility]) 09/17/2024 Resolved Ambulatory Problems Diagnosis Date Noted Bleeding in early ([facility]) 12/02/2022 Past Medical History: Diagnosis Date Frequent UTI Herpes History of chlamydia 2008 History of depression 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 Personal history of other medical treatment ([facility]) [place] teeth removed HISTORY PAST MEDICAL HISTORY SOCIAL HISTORY Past Medical History: Diagnosis Date Bleeding in early ([facility]) 12/02/2022 Frequent UTI Herpes History of chlamydia 2008 History of depression no meds 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 2011 Personal history of other medical treatment Frenectomy ([facility]) x2 [place] teeth removed Social History Tobacco Use Smoking [...] nursing note reviewed. Exam conducted with a suspect artist supervisor present. Vitals: Estimated body mass index is 42.61 kg/m?? as calculated from the following: Height as of 08/22/22: 5' 8.5 . Weight as of 10/28/24: 284 lb 6.4 oz. BP: Patient's last menstrual period was 02/11/2024. ASSESSMENT & PLAN ICD-10-CM 1. Third trimester ([facility]) Z34.93 POCT urinalysis dipstick manually resulted 2. 38 weeks gestation of ([facility]) Z3A.38 3. HSV infection B00.9 4. Multigravida of advanced maternal age in third trimester ([facility]) O09.523 Return OB: Patient presents today for a routine obstetrics appointment. Patient is currently 38w1d . Patient states she is doing well but has complaints of being tired due to current . Patient has verbalizes frequent movement. labor precautions was discussed/given and patient was instructed to perform kick counts three times a day. Orders Placed This Encounter Procedures POCT urinalysis dipstick manually resulted Follow Up: Patient is to return to office in 1 week for routine OB appointment. Continue with NST/BPP. Documented by Svetlana Simmons NP on behalf of: Theodore Campbell DO documented in this encounter Plan of Treatment Upcoming Encounters Date Type Department Care Team (Late st Contact Info) Description 11/19/2024 1:30 PM EDT Office Visit [facility] [address] [place] [address] Flower Joyce PA [address] [place] [address] documented as of this encounter Procedures Procedure Name Priority Date/Time Associated Diagnosis Comments POCT URINALYSIS DIPSTICK Routine 11/04/2024 9:59 AM EDT Third trimester ([facility]) documented in this encounter Results * POCT urinalysis dipstick manually resulted (11/04/2024 9:59 AM EDT) Color, UA Yellow Clarity, UA Clear Glucose, UA Negative Negative - 1999(110) ++++ mg/dL Bilirubin, UA Negative Negative - 4(70) +++ mg/dL Ketones, UA Negative Negative - 160(16) ++++ mg/dL Spec Grav, UA 1.015 1 - 1.03 Blood, UA Negative Negative - 50 Alex/mcL pH, UA 6.0 5 - 9 Protein, UA Negative Negative - 2000(20) ++++ mg/dL Urobilinogen, UA 0.2 0.2 - 12 mg/dL Leukocytes, UA Negative Negative - 500+++ Jodi/mcL Nitrite, UA Negative Negative - Positive Urine 11/04/2024 9:59 AM EDT Theodore Campbell DO POINT OF CARE TEST ENTER/EDIT OR DERABLES Final Result documented in this encounter Visit Diagnoses Diagnosis Third trimester ([facility]) state, incidental 38 weeks gestation of ([facility]) HSV infection Herpes simplex without mention of complication Multigravida of advanced maternal age in third trimester ([facility]) documented in this encounter
--- NOTE | 2024-11-05 09:04 | US_ITS ---
The [place] [id number] Patient Name: ED SILVA MRN: [facility]:[id number] date: 1990 Sex: F Assigned Patient Location: [facility] Current Patient Location: [facility] Accession/Order Number: [id number] Exam Date: 11/05/2024 09:45 Report Date: 11/05/2024 09:46 At the request of: AQUILES CLEVELAND DO Procedure: US OB BPP w non-stress BIOPHYSICAL PROFILE: CLINICAL INFORMATION: Excessive growth COMPARISON: 10/29/2024 There is a single live intrauterine gestation in cephalic presentation. The reported gestational age is 38 weeks 2 days. The heart rate measures 152 beats per minute. FINDINGS: TONE: 1 or more episodes of activity extension and flexion of extremity or opening and closing of the hand [Y] 2/2 GROSS BODY MOVEMENTS: 3 or more discrete body or limb movements [Y] 2/2 BREATHING MOVEMENTS: 1 or more episodes of breathing lasting at least 30 seconds [Y] 2/2 FRANK: A single deepest vertical pocket of amniotic fluid greater than 2 cm [Y] 2/2 FRANK: 16.5 cm. This is in upper normal range. Total score: 8/8 US/US OB BPP w non-stress IMPRESSION: NORMAL BIOPHYSICAL PROFILE Impression dictated by: Alexus De La Torre M.D. 11/05/2024 9:46 AM Dictation Location: [place] [address] Electronically authenticated by: [id number] Y Date: 11/05/2024 09:46
--- OUTSIDE RECORDS SUMMARY | 2024-11-05 09:04 | XMS_ITS | Encounter Summary ---
Author Organization [facility] Address [address] [place] [address] Care Team Providers Care Hogshead Mat Assembler Name Role Phone Unavailable Primary Care Provider Unavailabl e Encounter Details Date Type Department Care Team (Late st Contact Info) Description 11/04/2024 Bamboo flowsheet [facility] [address] [place] [address] Theodore Campbell DO [address] [place], [facility] Social History Tobacco Use Types Packs/Day [...] Start Date Job End Date Works at [employer] Not on file Not on file Not on file documented as of this encounter Plan of Treatment Upcoming Encounters Date Type Department Care Team (Late st Contact Info) Description 11/19/2024 1:30 PM EDT Office Visit [facility] [address] [place] [address] Flower Joyce PA [address] [facility] [place] [address] documented as of this encounter Visit Diagnoses Not on filedocumented in this encounter
--- OUTSIDE RECORDS SUMMARY | 2024-11-05 09:04 | XMS_ITS | Encounter Summary ---
Author Organization [facility] Address [address] [facility] [place] [address] Care Team Providers Care Inside B2B Sales Name Role Phone Unavailable Primary Care Provider Unavailabl e Encounter Details Date Type Department Care Team (Late Contact Info) Description 02/29/2024 Orders Only [facility] [address] [place] [address] [place] [address] [place], [place] [address] [place] [address] Social History Tobacco Use Types Packs/Day Years [...] Start Date Job End Date Works at [employer] Not on file Not on file Not on file documented as of this encounter Plan of Treatment Upcoming Encounters Date Type Department Care Team (Late st Contact Info) Description 11/19/2024 1:30 PM EDT Office Visit [facility] [address] [place] [address] Flower Joyce PA [address] [place] [address] documented as of this encounter Procedures Procedure Name Priority Date/Time Associated Diagnosis Comments PAP SMEAR Routine 02/15/2024 12:00 AM EST documented in this encounter Results * Pap Smear (02/15/2024 12:00 AM EST) Swab Cervical swab / Unknown [facility] ORDERABLES Final Re sult EXTERNAL LAB documented in this encounter Visit Diagnoses Not on filedocumented in this encounter"
--- OUTSIDE RECORDS SUMMARY | 2024-11-05 09:04 | XMS_ITS | Clinical Summary ---
Author Organization [employer] [facility] tem Address [id number] [address] [place] [address] Care Team Providers Care Thread Cutter Name Role Phone Unavailable Primary Care Provider [...] Orders Only Maternal- Medicine at [facility] [address] [place] [address] Ref Prov, Not In System 08/07/2024 Abstract Maternal- Medicine at [facility] [address] [place] [address] External, Scanning Provider from Last 3 Months [...] Procedure Name Priority Date/Time Associated Diagnosis Comments [facility] COMPREHENSIVE ANATOMIC SURVEY Routine 08/08/2024 9:49 AM EDT Encounter for anatomic survey from Last 3 Months Results * [facility] COMPREHENSIVE ANATOMIC SURVEY (08/08/2024 9:49 AM EDT) Anatomical Region Laterality Modality OB-BAKER HEAD Ultrasound 08/08/2024 8:19 AM EDT Narrative 08/08/2024 10:17 AM EDT NAME: SHIRA WARD : 1990 SEX: F Accession Number: [id number] ORDERING PHYSICIAN: AQUILES CAMPBELL REFERRING PHYSICIAN: AQUILES CAMPBELL Coding ----- --------- Procedures [id number]: Ultrasound, uterus, real time with image documentation, and maternal evaluation plus detailed anatomic examination, transabdominal approach;single or first gestation Indication ----- --------- Screening for Anatomic Survey , AMA- Supervision of elderly, Previous x2, Obesity in History ----- --------- OB History 4. Para 2 [id number] Maternal Assessment ----- --------- Physical Exam Height [...] EFW (oz) 2 oz EFW by: Hadlock ([id number]) Extended Tibia 43.3 mm 26w 5d 81% Kiki Mixing Engineer 3.6 mm CM 4.0 mm 3% Nicolaides [...] view. RVOT view. LVOT view. 3-vessel view. 0-hlrcql-jpdaqgz view. Situs. Aortic arch view. Bicaval view. [...] WARD : 1990 SEX: F Accession Number: [id number] ORDERING PHYSICIAN: AQUILES CAMPBELL REFERRING PHYSICIAN: AQUILES CAMPBELL Coding ----- --------- Procedures [id number]: Ultrasound, uterus, real time with imagedocumentation, and maternal evaluation plus detailed anatomic examination, transabdominalapproach;single or first gestation Indication ----- --------- Screening for Anatomic Survey , AMA- Supervision of elderly, PreviousC-Section x2, Obesity in History ----- --------- OB History 4. Para 2 [id number] Maternal Assessment ----- --------- Physical Exam Height [...] EFW (oz) 2 oz EFW by: Hadlock ([id number]) Extended Tibia 43.3 mm 26w 5d 81% Kiki Mixing Engineer 3.6 mm CM 4.0 mm 3% Nicolaides [...] 4-chamber view. RVOT view. LVOT view. 3-vessel view.9-xhmgxp-qwsnztn view. Situs. Aortic arch view. Bicaval view. [...] byprimary OB provider unless otherwise specified by [facility]. Results forwarded to ordering provider so they can follow up with thepatient as necessary. Aquiles Campbell DO [facility] ORDERABLES Final Result from Last 3 Months Insurance [facility]
--- OUTSIDE RECORDS SUMMARY | 2024-11-05 09:04 | XMS_ITS | Encounter Summary ---
Author Organization [facility] tem Address [id number] [address] [place] [address] Care Team Providers Care Fitness Management Director Name Role Phone Unavailable Primary Care Provider Unavailabl e Encounter Details Date Type Department Care Team (Late st Contact Info) Description 08/07/2024 Orders Only Maternal- Medicine at [facility] [address] [facility] [place] [id number] Ref Prov, [place] [address] Social History Tobacco Use Types Packs/Day Years [...]
--- OUTSIDE RECORDS SUMMARY | 2024-11-05 09:04 | XMS_ITS | Encounter Summary ---
Author Organization [facility] Address [address] [place] [address] Care Team Providers Care Data Security Analyst Name Role Phone Unavailable Primary Care Provider Unavailabl e Encounter Details Date Type Department Care Team (Late st Contact Info) Description 04/12/2024 Abstract [facility] [address] [place] [address] Theodore Campbell, [facility] [place] [address] Social History Tobacco Use Types Packs/Day Years [...] Start Date Job End Date Works at [employer] Not on file Not on file Not on file documented as of this encounter Plan of Treatment Upcoming Encounters Date Type Department Care Team (Late Contact Info) Description 11/19/2024 1:30 PM EDT Office Visit [facility] [address] [place] [address] Flower Joyce PA [address] [facility] [address] [place] [address] documented as of this encounter Visit Diagnoses Not on filedocumented in this encounter
--- OUTSIDE RECORDS SUMMARY | 2024-11-05 09:04 | XMS_ITS | Encounter Summary ---
Author Organization [facility] Address [address] [place] [address] Care Team Providers Care Environmental Services Tech Name Role Phone Unavailable Primary Care Provider Unavailabl e Encounter Details Date Type Department Care Team (Late st Contact Info) Description 10/22/2024 Clinisync Result Encounter [facility] External Department Unsolicited Aquiles Campbell DO [address] [place], [place] [id number] Social History Tobacco Use Types Packs/Day Years [...] Start Date Job End Date Works at [employer] Not on file Not on file Not on file documented as of this encounter Plan of Treatment Upcoming Encounters Date Type Department Care Team (Late st Contact Info) Description 11/19/2024 1:30 PM EDT Office Visit [facility] [address] [place] [phone] Flower Joyce PA [address] [place] [address] [place] [address] documented as of this encounter Procedures Procedure Name Priority Date/Time Associated Diagnosis Comments US OB BPP W NON-STRESS 10/22/2024 10:04 AM EDT documented in this encounter Results * US OB BPP W NON-STRESS (10/22/2024 10:04 AM EDT) Anatomical Region Laterality Modality Other 10/22/2024 10:0 4 AM EDT Narrative 10/22/2024 10:07 AM EDT [address] [address] Ultrasound Report Signed Patient: ED SILVA MR#: [id number] : 1990 Acct:[id number] Age/Sex: 33 / F ADM Date: 10/22/24 Loc: [facility] 254-[address]: Aquiles Campbell D.O. Ordering Physician: Aquiles Campbell D.O. Date of Service: 10/22/24 Procedure(s): US OB BPP w non-stress Accession Number(s): [id number] cc: Aquiles Campbell D.O.; Physician,Non-Staff MSalomon The [address] [address] Patient Name: ED SILVA MRN: [facility]:[id number] date: 1990 Sex: F Assigned Patient Location: [facility] Current Patient Location: [facility] Accession/Order Number: [id number] Exam Date: 10/22/2024 10:02 Report Date: 10/22/2024 [...] Torre M.D. 10/22/2024 10:04 AM Dictation Location: [place] [address] Electronically authenticated by: [id number] Y Date: 10/22/2024 10:04 Dictated By: Alexus De La Torre M.D. Signed By: 10/22/24 1007 DD/ 1004 TD/TT: Blurb Writer: Procedure Note Radiology, Radiologist, MD - 10/22/2024 [place] [address] Ultrasound Report Signed Patient: ED SILVA R#: [id number] : 1990Acct:[id number] Age/Sex: 33 / FADM Date: 10/22/24 Loc: [facility] 254-[address]: Aquiles Campbell D.O. Ordering Physician: Aquiles Campbell D.O. Date of Service: 10/22/24 Procedure(s): US OB BPP w non-stress Accession Number(s): [id number] cc: Aquiles Campbell D.O.; Physician,Non-Staff MSalomon The [address] [address] Patient Name: ED SILVA MRN: [id number] date: 1990 Sex: F Assigned Patient Location: [facility] Current Patient Location: [facility] Accession/Order Number: [id number] Exam Date: 10/22/2024 10:02 Report Date: 10/22/2024 [...] Torre M.D. 10/22/2024 10:04 AM Dictation Location: [place] [address] Electronically authenticated by: [id number] Y Date: 0:04 Dictated By: Alexus De La Torre M.D. Signed By:10/22/24 1007 DD/ 1004 TD/TT: Blurb Writer: Aquiles Campbell DO [facility] Final Result documented in this encounter Visit Diagnoses Not on filedocumented in this encounter
--- OUTSIDE RECORDS SUMMARY | 2024-11-05 09:04 | XMS_ITS | Encounter Summary ---
Author Organization [facility] Address [address] [place] [address] Care Team Providers Care Subsorter Name Role Phone Unavailable Primary Care Provider Unavailabl e Encounter Details Date Type Department Care Team (Late st Contact Info) Description 09/23/2024 Abstract [facility] [address] [place] [address] Theodore Campbell, [facility] [place] [address] Social History Tobacco Use Types Packs/Day Years [...] Start Date Job End Date Works at [employer] Not on file Not on file Not on file documented as of this encounter Plan of Treatment Upcoming Encounters Date Type Department Care Team (Late Contact Info) Description 11/19/2024 1:30 PM EDT Office Visit [facility] [address] [place] [address] Flower Joyce PA [address] [facility] [place] [address] documented as of this encounter Visit Diagnoses Not on filedocumented in this encounter
--- OUTSIDE RECORDS SUMMARY | 2024-11-05 09:04 | XMS_ITS | Encounter Summary ---
Author Organization [facility] Address [address] [facility] [place] [address] Care Team Providers Care Marketing Production Specialist Name Role Phone Unavailable Primary Care Provider Unavailabl e Encounter Details Date Type Department Care Team (Late st Contact Info) Description 08/20/2024 Abstract [facility] [address] [place] [address] [employer] Social History Tobacco Use Types Packs/Day Years [...] Start Date Job End Date Works at [employer] Not on file Not on file Not on file documented as of this encounter Plan of Treatment Upcoming Encounters Date Type Department Care Team (Late st Contact Info) Description 11/19/2024 1:30 PM EDT Office Visit [facility] [address] [place] [address] Flower Joyce PA [address] [place] [address] documented as of this encounter Visit Diagnoses Not on filedocumented in this encounter
--- OUTSIDE RECORDS SUMMARY | 2024-11-05 09:04 | XMS_ITS | Clinical Summary ---
Author Organization [facility] Address [address] [place] [address] Care Team Providers Care Merchandise Carrier Name Role Phone Unavailable Primary Care Provider Unavailabl e Allergies Active Allergy Reactions Criticality Noted Date Comments Cefadroxil Hives 12/02/2022 Other Reaction(s): hives, Unknown Other Reaction(s): hives, rash Latex Itching 12/02/2022 Other Reaction(s): Itching Other Reaction(s): Hives Paroxetine 12/02/2022 Other Reaction(s): Unknown Medications Vfdrkkyd-Fkf-Um-FA ( 1 + IRON PO) Active valACYclovir (Valtrex) 500 MG tabletIndications: HSV infection Take 1 tablet (500 mg) by mouth Daily 30 tablet 5 10/15/19 25 2024 Active iron polysaccharides (ProFe) 391.3 (180 Fe) MG capsule 09/09/19 25 Active Multiple Vitamin (Multivitamin Adult) tablet Orally Active progesterone 200 MG capsule Take 200 mg by mouth in the morning. Active Alcohol Swabs (Alcohol Prep Pad) 70 % padsIndications:Ge stational diabetes mellitus (GDM), antepartum, gestational diabetes method of control unspecified ([facility]),Elevated glucose tolerance test Apply 1 Pad topically Daily Use four times daily to check FSBS. 150 each 3 07/26/19 25 2024 Discontinued Blood Glucose Monitoring Suppl (D-Care Glucometer) w/Device kitIndications:Ges tational diabetes mellitus (GDM), antepartum, gestational diabetes method of control unspecified ([facility]),Elevated glucose tolerance test 1 kit Daily Use four times daily to check FSBS. In the morning prior to breakfast & 1 hour after each meal for a total of 4times daily. 1 kit 07/26/192024 Discontinued Active Problems Problem Noted Date Diagnosed Date 31 weeks gestation of ([facility]) 2024 Third trimester ([facility]) 09/17/2024 Multigravida of advanced mat ernal age in third trimester ([facility]) 09/17/2024 Anovulation 12/02/2022 DUB (dysfunctional uterine bleeding) 12/02/2022 Menstrual disorder 12/02/2022 Missed menses 12/02/2022 Yeast infection 12/02/2022 Estimated Date of Delivery Comme nts Yes 11/17/2024 Based on last me nstrual period of 02/11/2024 Resolved Problems Problem Noted Date Diagnosed Date Resolved Date Bleeding in early ([facility]) 12/02/2022 12/02/2022 Encounters Date Type Department Care Team Description 11/04/2024 9:30 [place] [id number] Aquiles Campbell, Third trimester ([facility]); 38 weeks gestation of ([facility]); HSV infection; Multigravida of advanced maternal age in third trimester ([facility]) 11/04/2024 [place] [address] Aquiles Campbell DO 10/29/2024 Clinisync Result Encounter NOMS External Department Unsolicited Aquiles Campbell DO 10/28/2024 11:20 [place] [phone] Aquiles Campbell, Third trimester ([facility]); 37 weeks gestation of ([facility]) 10/28/2024 [place] [address] Aquiles Campbell, 10/22/2024 Clinisync Result Encounter NOMS External Department Unsolicited Aquiles Campbell, 10/21/2024 2:00 [place] [address] Aquiles Campbell, DO Third trimester ([facility]); 36 weeks gestation of ([facility]); Multigravida of advanced maternal age in third trimester ([facility]); HSV infection; Excessive growth affecting management of , antepartum, single or unspecified fetus ([facility]) 10/21/2024 [place] [address] Aquiles Campbell, DO 10/16/20[place] [address] Shanna Bailon [place] 10/16/2024 Clinisync Result Encounter NOMS External Department Unsolicited Auqiles Campbell, DO 10/14/2024 2:30 [place] [address] Aquiles Campbell, DO 35 weeks gestation of ([facility]); Third trimester ([facility]); Multigravida of advanced maternal age in third trimester ([facility]); Excessive growth affecting management of , antepartum, single or unspecified fetus ([facility]); Low iron; HSV infection 10/14/2024 2:00 PM [place] [address] Multigravida of advanced maternal age in third trimester ([facility]); H/O miscarriage, currently ([facility]) 10/14/2024 [place] [address] Aquiles Campbell, DO 10/14/2024 Travel 10/09/2024 Clinisync Result Encounter NOMS External Department Unsolicited Aquiles Campbell, DO 10/02/2024 Clinisync Result Encounter NOMS External Department Unsolicited Aquiles Campbell, DO 09/30/2024 3:30 [place] [address] Flower Joyce PA Third trimester ([facility]); 33 weeks gestation of ([facility]) 09/30/2024 [place] [address] Flower Joyce PA 09/26/2024 Travel 09/25/2024 Clinisync Result Encounter NOMS External Department Unsolicited Aquiles Campbell, DO 09/23/2024 [place] [address] Aquiles Campbell, DO 09/17/2024 10:20 [place] [address] Aquiles Campbell, DO 31 weeks gestation of ([facility]); Third trimester ([facility]); Multigravida of advanced maternal age in third trimester ([facility]); Excessive growth affecting management of , antepartum, single or unspecified fetus ([facility]) 09/17/2024 9:30 AM EDT [place] [address] Size of fetus inconsistent with dates in second trimester ([facility]) 09/16/2024 Travel 09/14/2024 Travel 08/28/20[place] [address] Vicki Aguirre LPN 08/27/2024 8:50 AM EDT Routine [facility] [address] [facility] [place] [address] Flower Joyce PA Size of fetus inconsistent with dates in second trimester ([facility]) (Primary Dx); Third trimester ([facility]); 28 weeks gestation of ([facility]) 08/27/2024 Clinisync Result Encounter NOMS External Department Unsolicited Flower Joyce PA 08/27/2024 Bamboo flowsheet [facility] [address] [facility] [place] [address] Flower Joyce PA 08/26/2024 Travel 08/20/2024 Abstract [facility] [address] [facility] [place] [address] Shanna Bailon MA from Last 3 Months [...] Start Date Job End Date Works at [employer] Not on file Not on file Not [...] 11/19/2024 1:30 PM EDT Office Visit [facility] [address] [place] [address] Flower Joyce PA [address] [place] [address] Procedures Procedure Name Priority Date/Time Associated Diagnosis Comments POCT URINALYSIS DIPSTICK Routine 11/04/2024 9:59 AM EDT Third trimester ([facility]) US OB BPP W NON-STRESS 10/29/2024 9:56 AM EDT POCT URINALYSIS DIPSTICK Routine 10/28/2024 11:43 AM EDT Third trimester ([facility]) 37 weeks gestation of ([facility]) US OB BPP W NON-STRESS 10/22/2024 10:04 AM EDT POCT URINALYSIS DIPSTICK Routine 10/21/2024 2:22 PM EDT Third trimester ([facility]) CULTURE, GROUP B STREP WITH SUSCEPTIBLITY Routine 10/21/2024 2:08 PM EDT Third trimester ([facility]) US OB BPP W NON-STRESS 10/16/2024 7:15 AM EDT POCT URINALYSIS DIPSTICK Routine 10/14/2024 3:18 PM EDT 35 weeks gestation of ([facility]) Third trimester ([facility]) US OB FOLLOW UP TRANSABDOMINAL APPROACH Routine 10/14/2024 2:25 PM EDT Multigravida of advanced maternal age in third trimester ([facility]) H/O miscarriage, currently ([facility]) US OB BPP W NON-STRESS 10/09/2024 7:52 AM EDT US OB BPP W NON-STRESS 10/02/2024 8:07 AM EDT POCT URINALYSIS DIPSTICK Routine 09/30/2024 3:51 PM EDT Third trimester ([facility]) US OB BPP W NON-STRESS 09/25/2024 7:58 AM EDT POCT URINALYSIS DIPSTICK Routine 09/17/2024 10:37 AM EDT 31 weeks gestation of ([facility]) Third trimester ([facility]) Multigravida of advanced maternal age in third trimester ([facility]) US OB FOLLOW UP TRANSABDOMINAL APPROACH Routine 09/17/2024 9:58 AM EDT Size of fetus inconsistent with dates in second trimester ([facility]) ALL CBC WITH AUTO DIFF Routine 10:10 AM EDT MLR HEMOGLOBIN A1C Routine 08/27/2024 10 :10 AM EDT POCT URINALYSIS DIPSTICK Routine 08/27/2024 9:26 AM EDT Third trimester ([facility]) 28 weeks gestation of ([facility]) from Last 3 Months Results * POCT urinalysis dipstick manually resulted (11/04/2024 9:59 AM EDT) Only the most recent of7 resultswithin the time period is included. Color, [...] - Positive Urine 11/04/2024 9:59 AM EDT us Aquiles Campbell DO POINT OF CARE TEST ENTER/EDIT OR DERABLES Final Result * US OB BPP W NON-STRESS (10/29/2024 9:56 AM EDT) Only the most recent of6 resultswithin the time period is included. Anatomical Region Laterality Modality Other 10/29/2024 9:56 AM EDT Narrative 10/29/2024 9:59 [place] [address] Ultrasound Report Signed Patient: ED SILVA MR#: [id number] : 1990 Acct:[id number] Age/Sex: 33 / F ADM Date: 10/29/24 Loc: [facility] 250-[address]: Aquiles Campbell D.O. Ordering Physician: Aquiles Campbell D.O. Date of Service: 10/29/24 Procedure(s): US OB BPP w non-stress Accession Number(s): [id number] cc: Aquiles Campbell D.O.; Physician,Non-Staff M.Dario [address] [address] Patient Name: ED SILVA MRN: [facility]:[id number] date: 1990 Sex: F Assigned Patient Location: [facility] Current Patient Location: [facility] Accession/Order Number: [id number] Exam Date: 10/29/2024 09:55 Report Date: 10/29/2024 09:56 At the request of: AQUILES CAMPBELL DO Procedure: US OB BPP w non-stress Biophysical profile. Reason for exam: Excessive growth COMPARISON: 10/22/2024 TECHNIQUE: Transabdominal imaging of the gravid uterus was obtained. FINDINGS: The strip mine supervisor reports a BPP of 8 out of 8. FRANK is normal at 13.3 cm. heart rate 135 bpm. US/US OB BPP w non-stress IMPRESSION: BPP 8 out of 8. Impression dictated by: Campos Hall Jr., D.O. 10/29/2024 9:56 AM Dictation Location: [place] [address] Electronically authenticated by: [id number] Y Date: 10/29/2024 09:56 Dictated By: Campos Hall M.D. Signed By: 10/29/24 0959 DD/ 0956 TD/TT: Athlete Manager: Procedure Note Radiology, Radiologist, MD - 10/29/2024 [place] [address] Ultrasound Report Signed Patient: ED SILVA LMR#: [id number] : 1990Acct:[id number] Age/Sex: 33 / FADM Date: 10/29/24 Loc: [facility] 250-[address]: Aquiles Campbell D.O. Ordering Physician: Aquiles Campbell D.O. Date of Service: 10/29/24 Procedure(s): US OB BPP w non-stress Accession Number(s): [id number] cc: Aquiles Campbell D.O.; Physician,Non-Staff [place] The [place] [id number] Patient Name: ED SILVA MRN: [facility]:[id number] date: 1990 Sex: F Assigned Patient Location: [facility] Current Patient Location: [facility] Accession/Order Number: [id number] Exam Date: 10/29/2024 09:55 Report Date: 10/29/2024 09:56 At the request of: AQUILES CAMPBELL DO Procedure: US OB BPP w non-stress Biophysical profile. Reason for exam: Excessive growth COMPARISON: 10/22/2024 TECHNIQUE: Transabdominal imaging of the gravid uterus was obtained. FINDINGS: The strip mine supervisor reports a BPP of 8 out of 8. FRANK is normal at13.3 cm. heart rate 135 bpm. US/US OB BPP w non-stress IMPRESSION: BPP 8 out of 8. Impression dictated by: Campos Hall Jr., D.O. 10/29/2024 9:56 AM Dictation Location: [place] [address] Electronically authenticated by: [id number] Y Date: 9:56 Dictated By: Campos Hall M.D. Signed By:10/29/24 0959 DD/ TD/TT: Athlete Manager: us Aquiles Campbell DO [facility] Final Result * CULTURE, GROUP B STREP WITH SUSCEPTIBLITY (10/21/2024 2:08 PM EDT) Swab 10/21/2024 2:08 PM EDT us Aquiles Billingso DO LAB BLOOD ORDERABLES Final Resul t [...] [facility] [place] [facility] Final [facility] * (ABNORMAL) ALL CBC WITH AUTO DIFF [...] [facility]IN[facility] - 08/27/2024 10:44 AM EDT [facility] [place] [facility] Final Result [facility] TB from Last 3 Months Insurance [facility]
--- OUTSIDE RECORDS SUMMARY | 2024-11-05 09:04 | XMS_ITS | Encounter Summary ---
Author Organization [facility] Address [address] [place] [address] Care Team Providers Care Concrete Paving Supervisor Name Role Phone Unavailable Primary Care Provider Unavailabl e Encounter Details Date Type Department Care Team (Late st Contact Info) Description 10/29/2024 Clinisync Result Encounter NOMS External Department Unsolicited Aquiles Campbell DO [address] [place], [place] [phone] Social History Tobacco Use Types Packs/Day Years [...] Start Date Job End Date Works at [employer] Not on file Not on file Not on file documented as of this encounter Plan of Treatment Upcoming Encounters Date Type Department Care Team (Late st Contact Info) Description 11/19/2024 1:30 PM EDT Office Visit [facility] [address] [place] [phone] Flower Joyce PA [address] [place] [address] [place] [address] documented as of this encounter Procedures Procedure Name Priority Date/Time Associated Diagnosis Comments US OB BPP W NON-STRESS 10/29/2024 9:56 AM EDT documented in this encounter Results * US OB BPP W NON-STRESS (10/29/2024 9:56 AM EDT) Anatomical Region Laterality Modality Other 10/29/2024 9:56 AM EDT Narrative 10/29/2024 9:59 AM EDT [address] [address] Ultrasound Report Signed Patient: ED SILVA MR#: [id number] : 1990 Acct:[id number] Age/Sex: 33 / F ADM Date: 10/29/24 Loc: [facility] 250-[address]: Aquiles Campbell D.O. Ordering Physician: Aquiles Campbell D.O. Date of Service: 10/29/24 Procedure(s): US OB BPP w non-stress Accession Number(s): [id number] cc: Aquiles Campbell D.O.; Physician,Non-Staff M.Dario The [address] [address] Patient Name: ED SILVA MRN: [facility]:[id number] date: 1990 Sex: F Assigned Patient Location: [facility] Current Patient Location: [facility] Accession/Order Number: [id number] Exam Date: 10/29/2024 09:55 Report Date: 10/29/2024 09:56 At the request of: AQUILES CAMPBELL DO Procedure: US OB BPP w non-stress Biophysical profile. Reason for exam: Excessive growth COMPARISON: 10/22/2024 TECHNIQUE: Transabdominal imaging of the gravid uterus was obtained. FINDINGS: The tobacco wetter reports a BPP of 8 out of 8. FRANK is normal at 13.3 cm. heart rate 135 bpm. US/US OB BPP w non-stress IMPRESSION: BPP 8 out of 8. Impression dictated by: Campos Hall Jr., D.O. 10/29/2024 9:56 AM Dictation Location: [place] [address] Electronically authenticated by: [id number] Y Date: 10/29/2024 09:56 Dictated By: Campos Hall M.D. Signed By: 10/29/2459 DD/ 5 TD/TT: Manager Content: Procedure Note Radiology, Radiologist, MD - 10/29/2024 [place] [address] Ultrasound Report Signed Patient: ED SILVA LMR#: [id number] : 1990Acct:[id number] Age/Sex: 33 / FADM Date: 10/29/24 Loc: [facility] 250-[address]: Aquiles Campbell D.O. Ordering Physician: Aquiles Campbell D.O. Date of Service: 10/29/24 Procedure(s): US OB BPP w non-stress Accession Number(s): [id number] cc: Aquiles Campbell D.O.; Physician,Non-Staff Hussein The [place] [address] Patient Name: ED SILVA MRN: [facility]:[id number] date: 1990 Sex: F Assigned Patient Location: [facility] Current Patient Location: [facility] Accession/Order Number: [id number] Exam Date: 10/29/2024 09:55 Report Date: 10/29/2024 09:56 At the request of: AQUILES CAMPBELL DO Procedure: US OB BPP w non-stress Biophysical profile. Reason for exam: Excessive growth COMPARISON: 10/22/2024 TECHNIQUE: Transabdominal imaging of the gravid uterus was obtained. FINDINGS: The tobacco wetter reports a BPP of 8 out of 8. FRANK is normal at13.3 cm. heart rate 135 bpm. US/US OB BPP w non-stress IMPRESSION: BPP 8 out of 8. Impression dictated by: Campos Hall Jr., D.O. 10/29/2024 9:56 AM Dictation Location: [place] [address] Electronically authenticated by: [id number] Y Date: 9:56 Dictated By: Campos Hall M.D. Signed By:10/29/24 0959 DD/ TD/TT: Manager Content: us Aquiles Adrian DO [facility] Final Result documented in this encounter Visit Diagnoses Not on filedocumented in this encounter
--- OUTSIDE RECORDS SUMMARY | 2024-11-05 09:04 | XMS_ITS | Encounter Summary ---
Author Organization [facility] Address [address] [place] [address] Care Team Providers Care Learning Support Teacher Name Role Phone Unavailable Primary Care Provider Unavailabl e Encounter Details Date Type Department Care Team (Late st Contact Info) Description 07/25/2024 Abstract [facility] [address] [place] [address] Theodore Campbell, [facility] [place] [address] Social History Tobacco Use Types Packs/Day Years [...] Start Date Job End Date Works at [employer] Not on file Not on file Not on file documented as of this encounter Plan of Treatment Upcoming Encounters Date Type Department Care Team (Late st Contact Info) Description 11/19/2024 1:30 PM EDT Office Visit [facility] [address] [place] [address] Flower Joyce PA [address] [facility] [place] [address] documented as of this encounter Visit Diagnoses Not on filedocumented in this encounter
--- OUTSIDE RECORDS SUMMARY | 2024-11-05 09:04 | XMS_ITS | Encounter Summary ---
Author Organization [facility] Address [address] [place] [address] Care Team Providers Care Cesspool Cleaner Name Role Phone Unavailable Primary Care Provider Unavailabl e Encounter Details Date Type Department Care Team (Late st Contact Info) Description 10/14/2024 Abstract [facility] [address] [place] [address] Theodore Campbell, [facility] [place] [address] Social History Tobacco Use Types Packs/Day Years [...] Start Date Job End Date Works at [employer] Not on file Not on file Not on file documented as of this encounter Plan of Treatment Upcoming Encounters Date Type Department Care Team (Late Contact Info) Description 11/19/2024 1:30 PM EDT Office Visit [facility] [address] [place] [address] Flower Joyce PA [address] [place] [address] documented as of this encounter Visit Diagnoses Not on filedocumented in this encounter
--- OUTSIDE RECORDS SUMMARY | 2024-11-05 09:04 | XMS_ITS | Encounter Summary ---
Author Organization [facility] Address [address] [facility] [place] [address] Care Team Providers Care Safe And Vault Mechanic Name Role Phone Unavailable Primary Care Provider Unavailabl e Encounter Details Date Type Department Care Team (Late st Contact Info) Description 10/16/2024 Abstract [facility] [address] [place] [address] Kaur Bailonrasteven PR Social History Tobacco Use Types Packs/Day [...] Start Date Job End Date Works at [employer] Not on file Not on file Not on file documented as of this encounter Plan of Treatment Upcoming Encounters Date Type Department Care Team (Late st Contact Info) Description 11/19/2024 1:30 PM EDT Office Visit [facility] [address] [place] [address] Flower Joyce PA [address] [place] [address] documented as of this encounter Visit Diagnoses Not on filedocumented in this encounter
--- OUTSIDE RECORDS SUMMARY | 2024-11-05 09:04 | XMS_ITS | Encounter Summary ---
Author Organization [facility] Address [address] [place] [address] Care Team Providers Care Filtration Plant Operator Name Role Phone Unavailable Primary Care Provider Unavailabl e Encounter Details Date Type Department Care Team (Late st Contact Info) Description 04/15/2024 Abstract [facility] [address] [place] [address] Theodore Campbell, [facility] [place] [address] Social History Tobacco Use Types Packs/Day Years [...] Office Visit [facility] [address] [place] [address] Flower Joyce PA [address] [facility] [place] [address] documented as of this encounter Visit Diagnoses Not on filedocumented in this encounter
--- OUTSIDE RECORDS SUMMARY | 2024-11-05 09:04 | XMS_ITS | Encounter Summary ---
Author Organization [facility] Address [address] [place] [address] Care Team Providers Care Fats And Oils Loader Name Role Phone Unavailable Primary Care Provider Unavailabl e Encounter Details Date Type Department Care Team (Late st Contact Info) Description 12/01/2022 Abstract [facility] [address] [facility] [address] [place] [address] Toi Maradiaga DO [address] [facility] [address] [place] [address] Social History Tobacco Use Types Packs/Day Years [...] Start Date Job End Date Works at [employer] Not on file Not on file Not on file documented as of this encounter Plan of Treatment Upcoming Encounters Date Type Department Care Team (Late st Contact Info) Description 11/19/2024 1:30 PM EDT Office Visit [facility] [address] [place] [address] [place] [address] Flower Joyce PA [address] [place] [address] [place] [address] documented as of this encounter Visit Diagnoses Not on filedocumented in this encounter
--- OUTSIDE RECORDS SUMMARY | 2024-11-05 09:04 | XMS_ITS | Encounter Summary ---
Author Organization [facility] Address [address] [place] [address] Care Team Providers Care Straw Hat Machine Operator Name Role Phone Unavailable Primary Care Provider Unavailabl e Encounter Details Date Type Department Care Team (Late st Contact Info) Description 10/28/2024 Bamboo flowsheet [facility] [address] [place] [address] Thedoore Campbell DO [address] Aisha [place], [facility] Social History Tobacco Use Types [...] Start Date Job End Date Works at [employer] Not on file Not on file Not on file documented as of this encounter Plan of Treatment Upcoming Encounters Date Type Department Care Team (Late st Contact Info) Description 11/19/2024 1:30 PM EDT Office Visit [facility] [address] [facility] [place] [address] Flower Joyce PA [address] [facility] [place] [address] documented as of this encounter Visit Diagnoses Not on filedocumented in this encounter
[2024-11-05 09:23] VITALS: BP 103/56; PULSE 91
== END 2024-11-05 09:59 | disposition home or self-care (01) ==
LOC: US 09:02 → FBC 09:03
PROVIDERS: Visit Provider Obstetrics & Gynecology
DX: O36.63X0 Maternal care for excessive fetal growth, third trimester, not applicable or unspecified (principal); O09.523 Supervision of elderly multigravida, third trimester; Z3A.38 38 weeks gestation of pregnancy
CPT/HCPCS: 76818

== ENCOUNTER 2024-11-08 08:08 | Outpatient (OUT) | payer BC, SELFPAY ==
--- OUTSIDE RECORDS SUMMARY | 2024-10-28 11:20 | XMS_ITS | Encounter Summary ---
Author Organization [facility] Address [address] [place] [address] Care Team Providers Care Service Greeter Name Role Phone Unavailable Primary Care Provider Unavailabl e Reason for Visit * Reason Comments Routine Visit Encounter Details Date Type Department Care Team (Late st Contact Info) Description 10/28/2024 11:20 AM EDT Routine [facility] [address] [place] [phone] Theodore Campbell DO [address] [place] [address] Third trimester ([facility]); 37 weeks gestation of ([facility]) Social History Tobacco Use Types Packs/Day [...] Start Date Job End Date Works at [employer] Not on file Not on file Not [...] appointment. 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 Exam conducted with a water leak repairer present. Vitals: Estimated body mass index is 42.61 kg/m?? as calculated from the following: Height as of 08/22/22: 5' 8.5 . Weight as of this encounter: 284 lb 6.4 oz. BP: 108/70 Patient's last menstrual period was 02/11/2024. ASSESSMENT & PLAN ICD-10-CM 1. Third trimester ([facility]) Z34.93 POCT urinalysis dipstick manually resulted 2. 37 weeks gestation of ([facility]) Z3A.37 POCT urinalysis dipstick manually resulted Return [...] EDT Office Visit [facility] [address] [place] [phone] Flower Joyce PA [address] [place] [address] documented as of this encounter Procedures Procedure Name Priority Date/Time Associated Diagnosis Comments POCT URINALYSIS DIPSTICK Routine 10/28/2024 11:43 AM EDT Third trimester ([facility]) 37 weeks gestation of ([facility]) documented in this encounter Results * [...] this encounter Visit Diagnoses Diagnosis Third trimester ([facility]) state, incidental 37 weeks gestation of ([facility]) documented in this encounter
--- OUTSIDE RECORDS SUMMARY | 2024-11-04 09:30 | XMS_ITS | Encounter Summary ---
Author Organization [facility] Address [address] [place] [address] Care Team Providers Care International Marketing Intern Name Role Phone Unavailable Primary Care Provider Unavailabl e Reason for Visit * Reason Comments Routine Visit Encounter Details Date Type Department Care Team (Late st Contact Info) Description 11/04/2024 9:30 AM EDT Routine [facility] [address] [place] [address] Theodore Campbell DO [address] [place], [place] [phone] Third trimester ([facility]); 38 weeks gestation of ([facility]); HSV infection; Multigravida of advanced maternal age in third trimester ([facility]) Social History Tobacco Use Types Packs/Day [...] this encounter Progress Notes * Svetlana Simmons, [employer] - 11/04/2024 9:30 AM EDT Reason for Appointment: Patient ID: Beulah Murphy is a 33 y.o. female who presents for Routine Visit Patient presents today for Return OB appointment. MEDICATIONS Current Outpatient Medications Medication Instructions iron polysaccharides (ProFe) 391.3 (180 Fe) MG capsule Multiple Vitamin (Multivitamin Adult) tablet Orally Uyofzsyb-Wcf-Jz-FA ( 1 + IRON PO) progesterone 200 [...] infection 12/02/2022 31 weeks gestation of ([facility]) 09/17/2024 Third trimester ([facility]) 09/17/2024 Multigravida of advanced maternal age in third trimester ([facility]) 09/17/2024 Resolved Ambulatory Problems Diagnosis Date Noted Bleeding in early ([facility]) 12/02/2022 Past Medical History: Diagnosis Date Frequent UTI Herpes History of chlamydia 2008 History of depression 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 Personal history of other medical treatment ([facility]) [place] teeth removed HISTORY PAST MEDICAL HISTORY SOCIAL HISTORY Past Medical History: Diagnosis Date Bleeding in early ([facility]) 12/02/2022 Frequent UTI Herpes History of chlamydia 2008 History of depression no meds 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 2011 Personal history of other medical treatment Frenectomy ([facility]) x2 [place] teeth removed Social History Tobacco Use Smoking [...] nursing note reviewed. Exam conducted with a database admin present. Vitals: Estimated body mass index is 42.61 kg/m?? as calculated from the following: Height as of 08/22/22: 5' 8.5 . Weight as of 10/28/24: 284 lb 6.4 oz. BP: Patient's last menstrual period was 02/11/2024. ASSESSMENT & PLAN ICD-10-CM 1. Third trimester ([facility]) Z34.93 POCT urinalysis dipstick manually resulted 2. 38 weeks gestation of ([facility]) Z3A.38 3. HSV infection B00.9 4. Multigravida of advanced maternal age in third trimester ([facility]) O09.523 Return OB: Patient presents today for [...] EDT Office Visit [facility] [address] [place] [address] Flower Joyce PA [address] [facility] [place] [address] documented as of this encounter Procedures Procedure Name Priority Date/Time Associated Diagnosis Comments POCT URINALYSIS DIPSTICK Routine 11/04/2024 9:59 AM EDT Third trimester ([facility]) documented in this encounter Results [...]
--- OUTSIDE RECORDS SUMMARY | 2024-11-08 08:11 | XMS_ITS | Clinical Summary ---
Author Organization [facility] Address [address] [place] [address] Care Team Providers Care Television Engineer Name Role Phone Unavailable Primary Care Provider Unavailabl e Allergies Active Allergy Reactions Criticality Noted Date Comments Cefadroxil Hives 12/02/2022 Other Reaction(s): hives, Unknown Other Reaction(s): hives, rash Latex Itching 12/02/2022 Other Reaction(s): Itching Other Reaction(s): Hives Paroxetine 12/02/2022 Other Reaction(s): Unknown Medications Sesyfxfu-Yua-Rg-FA ( 1 + IRON PO) Active valACYclovir [...] antepartum, gestational diabetes method of control unspecified ([facility]),Elevated glucose tolerance test Apply 1 Pad topically Daily Use four times daily to check FSBS. 150 each 3 07/26/19 25 2024 Discontinued Blood Glucose Monitoring Suppl (D-Care Glucometer) w/Device kitIndications:Ges tational diabetes mellitus (GDM), antepartum, gestational diabetes method of control unspecified ([facility]),Elevated glucose tolerance test 1 kit Daily Use four times daily to check FSBS. In the morning prior to breakfast & 1 hour after each meal for a total of 4times daily. 1 kit 07/26/192024 Discontinued Active Problems Problem Noted Date Diagnosed Date 31 weeks gestation of ([facility]) 2024 Third trimester ([facility]) 09/17/2024 Multigravida of advanced mat ernal age in third trimester ([facility]) 09/17/2024 Anovulation 12/02/2022 DUB (dysfunctional uterine bleeding) 12/02/2022 Menstrual disorder 12/02/2022 Missed menses 12/02/2022 Yeast infection 12/02/2022 Estimated Date of Delivery Comme nts Yes 11/17/2024 Based on last me nstrual period of 02/11/2024 Resolved Problems Problem Noted Date Diagnosed Date Resolved Date Bleeding in early ([facility]) 12/02/2022 12/02/2022 Encounters Date Type Department Care Team Description 11/05/2024 Clinisync Result Encounter NOMS External Department Unsolicited Aquiles Campbell, 11/04/2024 9:30 [place] [address] Aquiles Campbell, Third trimester ([facility]); 38 weeks gestation of ([facility]); HSV infection; Multigravida of advanced maternal age in third trimester ([facility]) 11/04/2024 [place] [address] Aquiles Campbell DO 10/29/2024 Clinisync Result Encounter NOMS External Department Unsolicited Aquiles Campbell, 10/28/2024 11:20 [place] [address] Aquiles Campbell, Third trimester ([facility]); 37 weeks gestation of ([facility]) 10/28/2024 Bamboo flowsheet [facility] [address] [place] [address] Aquiles Campbell, DO 10/22/2024 Clinisync Result Encounter NOMS External Department Unsolicited Aquiles Campbell, DO 10/21/2024 2:00 PM EDT Routine [facility] [address] [place] [address] Aquiles Campbell, DO Third trimester ([facility]); 36 weeks gestation of ([facility]); Multigravida of advanced maternal age in third trimester ([facility]); HSV infection; Excessive growth affecting management of , antepartum, single or unspecified fetus ([facility]) 10/21/2024 Bamboo flowsheet [facility] [address] [address] Aquiles Campbell, DO 10/16/2024 Abstract [facility] [address] [facility] [place] [address] Shanna Bailon MA 10/16/2024 Clinisync Result Encounter NOMS External Department Unsolicited Aquiles Campbell, DO 10/14/2024 2:30 PM EDT Routine [facility] [address] [address] Aquiles Campbell, DO 35 weeks gestation of ([facility]); Third trimester ([facility]); Multigravida of advanced maternal age in third trimester ([facility]); Excessive growth affecting management of , antepartum, single or unspecified fetus ([facility]); Low iron; HSV infection 10/14/2024 2:00 PM EDT Ancillary Procedure [facility] [address] [place] [address] Multigravida of advanced maternal age in third trimester ([facility]); H/O miscarriage, currently ([facility]) 10/14/2024 Abstract [facility] [address] [place] [address] Aquiles Campbell, DO 10/14/2024 Travel 10/09/2024 Clinisync Result Encounter NOMS External Department Unsolicited Aquiles Campbell, DO 10/02/2024 Clinisync Result Encounter NOMS External Department Unsolicited Aquiles Campbell, DO 09/30/2024 3:30 PM EDT Routine [place] [address] Flower Joyce PA Third trimester ([facility]); 33 weeks gestation of ([facility]) 09/30/2024 [place] [address] Flower Joyce PA 09/26/2024 Travel 09/25/2024 Clinisync Result Encounter NOMS External Department Unsolicited Aquiles Campbell, DO 09/23/2024 [place] [address] Aquiles Campbell, DO 09/17/2024 10:20 [place] [address] Aquiles Campbell, DO 31 weeks gestation of ([facility]); Third trimester ([facility]); Multigravida of advanced maternal age in third trimester ([facility]); Excessive growth affecting management of , antepartum, single or unspecified fetus ([facility]) 09/17/2024 9:30 AM [place] [address] Size of fetus inconsistent with dates in second trimester ([facility]) 09/16/2024 Travel 09/14/2024 Travel 08/28/2024 Telephone [facility] [place] [place] [phone] Robertjohnathon VickiZHENG 08/27/2024 8:50 AM EDT Routine [facility] [address] [place] [place] [phone] Flower Joyce PA Size of fetus inconsistent with dates in second trimester ([facility]) (Primary Dx); Third trimester ([facility]); 28 weeks gestation of ([facility]) 08/27/2024 Clinisync Result Encounter NOMS External Department Unsolicited Flower Joyce PA 08/27/2024 Bamboo flowsheet [facility] [address] [place] [place] [phone] Flower Joyce PA 08/26/2024 Travel 08/20/2024 Abstract [facility] [address] [phone] Shanna Bailon MA from Last 3 Months [...] Comme nts Yes 11/17/2024 Based on last nm nstrual period of 02/11/2024 Sex and Gender Information Value Date Recorded Sex Assigned at Not on file Legal Sex Female 6:44 PM EDT Gender Identity Not on file Sexual Orientation Not on file Occupation Industry Job Start Date Job End Date Works at [employer] Not on file Not on file Not [...] 11/19/2024 1:30 PM EDT Office Visit [facility] [address] [facility] [place] [address] Flower Joyce PA [address] [place] [address] Procedures Procedure Name Priority Date/Time Associated Diagnosis Comments OB BPP W NON-STRESS 11/05/2024 9:46 AM EDT POCT URINALYSIS DIPSTICK Routine 11/04/2024 9:59 AM EDT Third trimester ([facility]) US OB BPP W NON-STRESS 10/29/2024 9:56 AM EDT POCT URINALYSIS DIPSTICK Routine 10/28/2024 11:43 AM EDT Third trimester ([facility]) 37 weeks gestation of ([facility]) US OB BPP W NON-STRESS 10/22/2024 10:04 AM EDT POCT URINALYSIS DIPSTICK Routine 10/21/2024 2:22 PM EDT Third trimester ([facility]) CULTURE, GROUP B STREP WITH SUSCEPTIBLITY Routine 10/21/2024 2:08 PM EDT Third trimester ([facility]) US OB BPP W NON-STRESS 10/16/2024 7:15 AM EDT POCT URINALYSIS DIPSTICK Routine 10/14/2024 3:18 PM EDT 35 weeks gestation of ([facility]) Third trimester ([facility]) US OB FOLLOW UP TRANSABDOMINAL APPROACH Routine 10/14/2024 2:25 PM EDT Multigravida of advanced maternal age in third trimester ([facility]) H/O miscarriage, currently ([facility]) US OB BPP W NON-STRESS 10/09/2024 7:52 AM EDT US OB BPP W NON-STRESS 10/02/2024 8:07 AM EDT POCT URINALYSIS DIPSTICK Routine 09/30/2024 3:51 PM EDT Third trimester ([facility]) US OB BPP W NON-STRESS 09/25/2024 7:58 AM EDT POCT URINALYSIS DIPSTICK Routine 09/17/2024 10:37 AM EDT 31 weeks gestation of ([facility]) Third trimester ([facility]) Multigravida of advanced maternal age in third trimester ([facility]) US OB FOLLOW UP TRANSABDOMINAL APPROACH Routine 09/17/2024 9:58 AM EDT Size of fetus inconsistent with dates in second trimester ([facility]) ALL CBC WITH AUTO DIFF Routine 10:10 AM EDT MLR HEMOGLOBIN A1C Routine 08/27/2024 10 :10 AM EDT POCT URINALYSIS DIPSTICK Routine 08/27/2024 9:26 AM EDT Third trimester ([facility]) 28 weeks gestation of ([facility]) from Last 3 Months Results * US OB BPP W NON-STRESS (11/05/2024 9:46 AM EDT) Only the most recent of7 resultswithin the time period is included. Anatomical Region Laterality Modality Other 11/05/2024 9:46 AM EDT Narrative 11/05/2024 9:48 [place] [address] Ultrasound Report Signed Patient: ED SILVA MR#: [id number] : 1990 Acct:[id number] Age/Sex: 33 / F ADM Date: 11/05/24 Loc: [facility] 250-[address]: Aquiles Campbell D.O. Ordering Physician: Aquiles Campbell D.O. Date of Service: 11/05/24 Procedure(s): US OB BPP w non-stress Accession Number(s): [id number] cc: Aquiles Campbell D.O.; Physician,Non-Staff M.DAp The [place] [id number] Patient Name: ED SILVA MRN: [id number] date: 1990 Sex: F Assigned Patient Location: [facility] Current Patient Location: [facility] Accession/Order Number: [id number] Exam Date: 11/05/2024 09:45 Report Date: 11/05/2024 09:46 At the request of: AQUILES CAMPBELL DO Procedure: US OB BPP w non-stress BIOPHYSICAL PROFILE: CLINICAL INFORMATION: Excessive growth COMPARISON: 10/29/2024 There is a single live intrauterine gestation in cephalic presentation. The reported gestational age is 38 weeks 2 days. The heart rate measures 152 beats per minute. FINDINGS: TONE: 1 or [...] amniotic fluid greater than 2 cm [Y] 2/ FRANK: 16.5 cm. This is in upper normal range. Total score: 8 US/US OB BPP w non-stress IMPRESSION: NORMAL BIOPHYSICAL PROFILE Impression dictated by: Alexus De La Torre M.D. 11/05/2024 9:46 AM Dictation Location: [place] [address] Electronically authenticated by: [id number] Y Date: 11/05/2024 09:46 Dictated By: Alexus De La Torre M.D. Signed By: 11/05/2448 DD/ 5 TD/TT: Cylinder Filler: Procedure Note Radiology, Radiologist, MD - 11/05/2024 [place] [address] Ultrasound Report Signed Patient: ED SILVA LMR#: [id number] : 1990Acct:[id number] Age/Sex: 33 / FADM Date: 11/05/24 Loc: [facility] 250-[address]: Aquiles Campbell D.O. Ordering Physician: Aquiles Campbell D.O. Date of Service: 11/05/24 Procedure(s): US OB BPP w non-stress Accession Number(s): [id number] cc: Aquiles Campbell D.O.; Physician,Non-Staff Hussein The [address] [address] Patient Name: ED SILVA MRN: [id number] date: 1990 Sex: F Assigned Patient Location: [facility] Current Patient Location: [facility] Accession/Order Number: [id number] Exam Date: 11/05/2024 09:45 Report Date: 11/05/2024 09:46 At the request of: AQUILES CAMPBELL DO Procedure: US OB BPP w non-stress BIOPHYSICAL PROFILE: CLINICAL INFORMATION: Excessive growth COMPARISON: 10/29/2024 There is a single live intrauterine gestation in cephalic presentation.The reported gestational age is 38 weeks 2 days. The heart ratemeasures 152 beats per minute. FINDINGS: TONE: 1 or [...] greater than 2 cm [Y] 2/2 FRANK: 16.5 cm. This is in upper normal range. Total score: 8/8 US/US OB BPP w non-stress IMPRESSION: NORMAL BIOPHYSICAL PROFILE Impression dictated by: Alexus De La Torre M.D. 11/05/2024 9:46 AM Dictation Location: [place] [address] Electronically authenticated by: [id number] Y Date: 9:46 Dictated By: Alexus De La Torre M.D. Signed By:11/05/2448 DD/ 5 TD/TT: Cylinder Filler: Aquiles Adrian DO [facility] Final Result * POCT urinalysis dipstick manually resulted (11/04/2024 [...] Urine 11/04/2024 9:59 AM EDT us Aquiles Adrian DO POINT OF CARE TEST ENTER/EDIT OR DERABLES Final Result * CULTURE, GROUP B STREP WITH SUSCEPTIBLITY (10/21/2024 2:08 PM EDT) Swab 10/21/2024 2:08 PM EDT us Aquiles Adrian DO LAB BLOOD ORDERABLES Final Resul t [...] Campos Vital MD us Aquiles Campbell DO [facility] US PROCEDURES Final Resul t * MLR HEMOGLOBIN A1C (08/27/2024 10:10 AM EDT) GLYCOHEMOGLOBIN A1C 5.6 4.5 - 6.2 % [facility] Comment: ADA RECOMMENDED LIMIT 4.0 - 6.0 ADA THERAPEUTIC TARGET < 7.0 ACTION SUGGESTED > 7.0 ESTIMATED AVERAGE GLUCOSE 114 mg/dL TB 08/27/2024 10:1 0 AM EDT 08/27/2024 10:21 AM EDT Narrative [facility] - 08/27/2024 10:36 AM EDT us Flower VITALE Final Result [facility] * (ABNORMAL) ALL CBC WITH AUTO DIFF (08/27/2024 10:10 AM EDT) [facility] WBC 10.0 4.0 - 11.0 10 [...] 10:44 AM EDT Flower VITALE Final Result [facility]INIS[facility] TB from Last 3 Months Insurance [facility]
--- OUTSIDE RECORDS SUMMARY | 2024-11-08 08:11 | XMS_ITS | Encounter Summary ---
Author Organization [facility] [employer] [facility] tem Address [id number] [address] [place] [address] Care Team Providers Care Earth Science Technical Officer Name Role Phone Unavailable Primary Care Provider Unavailabl e Encounter Details Date Type Department Care Team (Late st Contact Info) Description 08/07/2024 Orders Only Maternal- Medicine at [facility] [address] [facility] [place] [phone] Ref Prov, [place] [address] Social History Tobacco Use Types Packs/Day Years [...]
--- OUTSIDE RECORDS SUMMARY | 2024-11-08 08:11 | XMS_ITS | Encounter Summary ---
Author Organization [facility] Address [address] [place] [address] Care Team Providers Care Retread Technician Name Role Phone Unavailable Primary Care Provider Unavailabl e Encounter Details Date Type Department Care Team (Late st Contact Info) Description 04/15/2024 Abstract [facility] [address] [place] [address] Theodore Campbell, [facility] [place] [address] Social History Tobacco Use Types Packs/Day Years [...] Start Date Job End Date Works at [employer] Not on file Not on file Not on file documented as of this encounter Plan of Treatment Upcoming Encounters Date Type Department Care Team (Late Contact Info) Description 11/19/2024 1:30 PM EDT Office Visit [facility] [address] [place] [address] Flower Joyce PA [address] [place] [address] documented as of this encounter Visit Diagnoses Not on filedocumented in this encounter
--- OUTSIDE RECORDS SUMMARY | 2024-11-08 08:12 | XMS_ITS | Encounter Summary ---
Author Organization [facility] Address [address] [place] [address] Care Team Providers Care Front Desk Person Name Role Phone Unavailable Primary Care Provider Unavailabl e Encounter Details Date Type Department Care Team (Late st Contact Info) Description 09/23/2024 Abstract [facility] [address] [place] [address] Theodore Campbell, [facility] [place] [address] Social History Tobacco Use Types Packs/Day Years [...] Start Date Job End Date Works at [employer] Not on file Not on file Not on file documented as of this encounter Plan of Treatment Upcoming Encounters Date Type Department Care Team (Late st Contact Info) Description 11/19/2024 1:30 PM EDT Office Visit [facility] [address] [place] [address] Flower Joyce PA [address] [place] [address] documented as of this encounter Visit Diagnoses Not on filedocumented in this encounter
--- OUTSIDE RECORDS SUMMARY | 2024-11-08 08:12 | XMS_ITS | Clinical Summary ---
Author Organization [facility] Address [id number] [address] [place] [address] Care Team Providers Care Statistical Analyst Name Role Phone Unavailable Primary Care [...] Type Department Care Team Description 08/08/2024 Travel from Last 3 Months Family History [...] Procedure Name Priority Date/Time Associated Diagnosis Comments [facility] COMPREHENSIVE ANATOMIC SURVEY Routine 08/08/2024 9:49 AM EDT Encounter for anatomic survey from Last 3 Months Results * [facility] COMPREHENSIVE ANATOMIC SURVEY (08/08/2024 9:49 AM EDT) Anatomical Region Laterality Modality OB-SPEECH ASSISTANT Ultrasound 08/08/2024 8:19 AM EDT Narrative 08/08/2024 10:17 AM EDT NAME: SHIRA WARD : 1990 SEX: F Accession Number: [id number] ORDERING PHYSICIAN: AQUILES CLEVELAND REFERRING PHYSICIAN: AQUILES CLEVELAND Coding ----- --------- Procedures [id number]: Ultrasound, uterus, real time with image documentation, and maternal evaluation plus detailed anatomic examination, transabdominal approach;single or first gestation Indication ----- --------- Screening for Anatomic Survey , AMA- Supervision of elderly, Previous x2, Obesity in History ----- --------- OB History 4. Para 2 [id number] Maternal Assessment ----- --------- Physical Exam Height [...] EFW (oz) 2 oz EFW by: Hadlock ([id number]) Extended Tibia 43.3 mm 26w 5d 81% Kiki Sign Builder Supervisor 3.6 mm CM 4.0 mm 3% Nicolaides [...] view. RVOT view. LVOT view. 3-vessel view. 8-matxpk-wvpzbki view. Situs. Aortic arch view. Bicaval view. [...] primary OB provider unless otherwise specified by [facility]. Results forwarded to ordering provider so they can follow up with the patient as necessary. Procedure Note Jesus Villagomez MD - 08/08/2024 NAME: SHIRA WARD : 1990 SEX: F Accession Number: [id number] ORDERING PHYSICIAN: AQUILES CLEVELAND REFERRING PHYSICIAN: AQUILES CLEVELAND Coding ----- --------- Procedures [id number]: Ultrasound, uterus, real time with imagedocumentation, and maternal evaluation plus detailed anatomic examination, transabdominalapproach;single or first gestation Indication ----- --------- Screening for Anatomic Survey , AMA- Supervision of elderly, PreviousC-Section x2, Obesity in History ----- --------- OB History 4. Para 2 [id number] Maternal Assessment ----- --------- Physical Exam Height [...] EFW (oz) 2 oz EFW by: Hadlock ([id number]) Extended Tibia 43.3 mm 26w 5d 81% Kiki Sign Builder Supervisor 3.6 mm CM 4.0 mm 3% Nicolaides [...] 4-chamber view. RVOT view. LVOT view. 3-vessel view.9-dhznap-nduekoa view. Situs. Aortic arch view. Bicaval view. [...] byprimary OB provider unless otherwise specified by [facility]. Results forwarded to ordering provider so they can follow up with thepatient as necessary. Aquiles R Adrian DO [facility] US ORDERABLES Final Result from Last 3 Months Insurance [employer]
--- OUTSIDE RECORDS SUMMARY | 2024-11-08 08:13 | XMS_ITS | Encounter Summary ---
Author Organization [facility] Address [address] [place] [address] Care Team Providers Care Glue Sprayer Name Role Phone Unavailable Primary Care Provider Unavailabl e Encounter Details Date Type Department Care Team (Late st Contact Info) Description 10/14/2024 Abstract [facility] [address] [place] [address] Theodore Campbell, [facility] [place] [address] Social History Tobacco Use Types Packs/Day Years [...] Start Date Job End Date Works at [employer] Not on file Not on file Not on file documented as of this encounter Plan of Treatment Upcoming Encounters Date Type Department Care Team (Late Contact Info) Description 11/19/2024 1:30 PM EDT Office Visit [facility] [address] [place] [address] Flower Joyce PA [address] [place] [address] documented as of this encounter Visit Diagnoses Not on filedocumented in this encounter
--- OUTSIDE RECORDS SUMMARY | 2024-11-08 08:13 | XMS_ITS | Encounter Summary ---
Author Organization [facility] Address [address] [place] [address] Care Team Providers Care Labor Arbitrator Name Role Phone Unavailable Primary Care Provider Unavailabl e Encounter Details Date Type Department Care Team (Late st Contact Info) Description 11/04/2024 Bamboo flowsheet [facility] [address] [place] [address] Theodore Campbell DO [address] [employer] [address] Aisha [place], [facility] Social History Tobacco Use Types Packs/Day [...] Start Date Job End Date Works at [employer] Not on file Not on file Not on file documented as of this encounter Plan of Treatment Upcoming Encounters Date Type Department Care Team (Late st Contact Info) Description 11/19/2024 1:30 PM EDT Office Visit [facility] [address] [place] [address] Flower Joyce PA [address] [place] [address] documented as of this encounter Visit Diagnoses Not on filedocumented in this encounter
--- OUTSIDE RECORDS SUMMARY | 2024-11-08 08:13 | XMS_ITS | Encounter Summary ---
Author Organization [facility] Address [address] [facility] [place] [address] Care Team Providers Care Automobile And Property Underwriter Name Role Phone Unavailable Primary Care Provider Unavailabl e Encounter Details Date Type Department Care Team (Late st Contact Info) Description 08/20/2024 Abstract [facility] [address] [place] [address] Kaur Bailonraste[place] Social History Tobacco Use Types Packs/Day Years [...] Start Date Job End Date Works at [employer] Not on file Not on file Not on file documented as of this encounter Plan of Treatment Upcoming Encounters Date Type Department Care Team (Late st Contact Info) Description 11/19/2024 1:30 PM EDT Office Visit [facility] [address] [place] [address] Flower Joyce PA [address] [place] [address] documented as of this encounter Visit Diagnoses Not on filedocumented in this encounter
--- OUTSIDE RECORDS SUMMARY | 2024-11-08 08:13 | XMS_ITS | Encounter Summary ---
Author Organization [facility] Address [address] [place] [address] Care Team Providers Care Loan Auditor Name Role Phone Unavailable Primary Care Provider Unavailabl e Encounter Details Date Type Department Care Team (Late st Contact Info) Description 10/29/2024 Clinisync Result Encounter [facility] External Department Unsolicited Aquiles Campbell DO [address] [place], [place] [id number] Social History Tobacco Use Types Packs/Day Years [...] Start Date Job End Date Works at [employer] Not on file Not on file Not on file documented as of this encounter Plan of Treatment Upcoming Encounters Date Type Department Care Team (Late st Contact Info) Description 11/19/2024 1:30 PM EDT Office Visit [facility] [address] [place] [phone] Flower Joyce PA [address] [place] [address] [place] [address] documented as of this encounter Procedures Procedure Name Priority Date/Time Associated Diagnosis Comments US OB BPP W NON-STRESS 10/29/2024 9:56 AM EDT documented in this encounter Results * US OB BPP W NON-STRESS (10/29/2024 9:56 AM EDT) Anatomical Region Laterality Modality Other 10/29/2024 9:56 AM EDT Narrative 10/29/2024 9:59 AM EDT [address] [address] Ultrasound Report Signed Patient: ED SILVA MR#: [id number] : 1990 Acct:[id number] Age/Sex: 33 / F ADM Date: 10/29/24 Loc: [facility] 250-[address]: Aquiles Campbell D.O. Ordering Physician: Aquiles Campbell D.O. Date of Service: 10/29/24 Procedure(s): US OB BPP w non-stress Accession Number(s): [id number] cc: Aquiles Campbell D.O.; Physician,Non-Staff M.Dario The [address] [address] Patient Name: ED SILVA MRN: [facility]:[id number] date: 1990 Sex: F Assigned Patient Location: [facility] Current Patient Location: [facility] Accession/Order Number: [id number] Exam Date: 10/29/2024 09:55 Report Date: 10/29/2024 09:56 At the request of: AQUILES CAMPBELL DO Procedure: US OB BPP w non-stress Biophysical profile. Reason for exam: Excessive growth COMPARISON: 10/22/2024 TECHNIQUE: Transabdominal imaging of the gravid uterus was obtained. FINDINGS: The auto locator reports a BPP of 8 out of 8. FRANK is normal at 13.3 cm. heart rate 135 bpm. US/US OB BPP w non-stress IMPRESSION: BPP 8 out of 8. Impression dictated by: Campos Hall Jr., D.O. 10/29/2024 9:56 AM Dictation Location: [place] [address] Electronically authenticated by: [id number] Y Date: 10/29/2024 09:56 Dictated By: Campos Hall M.D. Signed By: 10/29/2459 DD/ 5 TD/TT: Scrum Project Manager: Procedure Note Radiology, Radiologist, MD - 10/29/2024 [place] [address] Ultrasound Report Signed Patient: ED SILVA LMR#: [id number] : 1990Acct:[id number] Age/Sex: 33 / FADM Date: 10/29/24 Loc: [facility] 250-[address]: Aquiles Campbell D.O. Ordering Physician: Aquiles Campbell D.O. Date of Service: 10/29/24 Procedure(s): US OB BPP w non-stress Accession Number(s): [id number] cc: Aquiles Campbell D.O.; Physician,Non-Staff Hussein The [place] [address] Patient Name: ED SILVA MRN: [facility]:[id number] date: 1990 Sex: F Assigned Patient Location: [facility] Current Patient Location: [facility] Accession/Order Number: [id number] Exam Date: 10/29/2024 09:55 Report Date: 10/29/2024 09:56 At the request of: AQUILES CAMPBELL DO Procedure: US OB BPP w non-stress Biophysical profile. Reason for exam: Excessive growth COMPARISON: 10/22/2024 TECHNIQUE: Transabdominal imaging of the gravid uterus was obtained. FINDINGS: The auto locator reports a BPP of 8 out of 8. FRANK is normal at13.3 cm. heart rate 135 bpm. US/US OB BPP w non-stress IMPRESSION: BPP 8 out of 8. Impression dictated by: Campos Hall Jr., D.O. 10/29/2024 9:56 AM Dictation Location: [place] [address] Electronically authenticated by: [id number] Y Date: 9:56 Dictated By: Campos Hall M.D. Signed By:10/29/24 0959 DD/ TD/TT: Scrum Project Manager: us Aquiles Adrian DO [facility] Final Result documented in this encounter Visit Diagnoses Not on filedocumented in this encounter
--- OUTSIDE RECORDS SUMMARY | 2024-11-08 08:13 | XMS_ITS | Encounter Summary ---
Author Organization [facility] Address [address] [place] [address] Care Team Providers Care Protohistorian Name Role Phone Unavailable Primary Care Provider Unavailabl e Encounter Details Date Type Department Care Team (Late st Contact Info) Description 11/05/2024 Clinisync Result Encounter [facility] External Department Unsolicited Aquiles Campbell DO [address] [place], [place] [id number] Social History Tobacco Use Types Packs/Day Years [...] Start Date Job End Date Works at [employer] Not on file Not on file Not on file documented as of this encounter Plan of Treatment Upcoming Encounters Date Type Department Care Team (Late st Contact Info) Description 11/19/2024 1:30 PM EDT Office Visit [facility] [address] [place] [phone] Flower Joyce PA [address] [place] [address] [place] [address] documented as of this encounter Procedures Procedure Name Priority Date/Time Associated Diagnosis Comments US OB BPP W NON-STRESS 11/05/2024 9:46 AM EDT documented in this encounter Results * US OB BPP W NON-STRESS (11/05/2024 9:46 AM EDT) Anatomical Region Laterality Modality Other 11/05/2024 9:46 AM EDT Narrative 11/05/2024 9:48 [place] [address] Ultrasound Report Signed Patient: ED SILVA MR#: [id number] : 1990 Acct:[id number] Age/Sex: 33 / F ADM Date: 11/05/24 Loc: [facility] 250-[address]: Aquiles Campbell D.O. Ordering Physician: Aquiles Campbell D.O. Date of Service: 11/05/24 Procedure(s): US OB BPP w non-stress Accession Number(s): [id number] cc: Aquiles Capmbell D.O.; Physician,Non-Staff M.Dario The [address] [address] Patient Name: ED SILVA MRN: [facility]:[id number] date: 1990 Sex: F Assigned Patient Location: [facility] Current Patient Location: [facility] Accession/Order Number: [id number] Exam Date: 11/05/2024 09:45 Report Date: 11/05/2024 [...] Torre M.D. 11/05/2024 9:46 AM Dictation Location: [place] [address] Electronically authenticated by: [id number] Y Date: 11/05/2024 09:46 Dictated By: Alexus De La Torre M.D. Signed By: 11/05/24947 DD/ 5 TD/TT: Derrick Helper: Procedure Note Radiology, Radiologist, MD - 11/05/2024 [place] [address] Ultrasound Report Signed Patient: ED SILVA R#: [id number] : 1990Acct:[id number] Age/Sex: 33 / FADM Date: 11/05/24 Loc: [facility] 250-[address]: Aquiles Campbell D.O. Ordering Physician: Aquiles Campbell D.O. Date of Service: 11/05/24 Procedure(s): US OB BPP w non-stress Accession Number(s): [id number] cc: Aquiles Campbell D.O.; Physician,Non-Staff Hussein The [place] [id number] Patient Name: ED SILVA MRN: [id number] date: 1990 Sex: F Assigned Patient Location: [facility] Current Patient Location: [facility] Accession/Order Number: [id number] Exam Date: 11/05/2024 09:45 Report Date: 11/05/2024 [...] Torre M.D. 11/05/2024 9:46 AM Dictation Location: [place] [address] Electronically authenticated by: [id number] Y Date: 509:46 Dictated By: Alexus De La Torre M.D. Signed By:11/05/2448 DD/ 5 TD/TT: Derrick Helper: Aquiles Campbell DO [facility] Final Result documented in this encounter Visit Diagnoses Not on filedocumented in this encounter
--- OUTSIDE RECORDS SUMMARY | 2024-11-08 08:13 | XMS_ITS | Encounter Summary ---
Author Organization [facility] Address [address] [place] [address] Care Team Providers Care Garden Center Manager Name Role Phone Unavailable Primary Care Provider Unavailabl e Encounter Details Date Type Department Care Team (Late st Contact Info) Description 12/01/2022 Abstract [facility] [address] [facility] [address] [place] [phone] Toi Maradiaga DO [address] [facility] [address] [place] [address] Social History Tobacco Use Types Packs/Day Years [...] Start Date Job End Date Works at [employer] Not on file Not on file Not on file documented as of this encounter Plan of Treatment Upcoming Encounters Date Type Department Care Team (Late st Contact Info) Description 11/19/2024 1:30 PM EDT Office Visit [facility] [address] [place] [address] [address] [place] [phone] Flower Joyce PA [address] [place] [address] [place] [address] documented as of this encounter Visit Diagnoses Not on filedocumented in this encounter
--- OUTSIDE RECORDS SUMMARY | 2024-11-08 08:13 | XMS_ITS | Encounter Summary ---
Author Organization [facility] Address [address] [place] [address] Care Team Providers Care Staffing Account Manager Name Role Phone Unavailable Primary Care Provider Unavailabl e Encounter Details Date Type Department Care Team (Late st Contact Info) Description 07/25/2024 Abstract [facility] [address] [place] [address] Theodore Campbell, [facility] [place] [address] Social History Tobacco Use Types Packs/Day Years [...] Start Date Job End Date Works at [employer] Not on file Not on file Not on file documented as of this encounter Plan of Treatment Upcoming Encounters Date Type Department Care Team (Late st Contact Info) Description 11/19/2024 1:30 PM EDT Office Visit [facility] [address] [place] [address] Flower Joyce PA [address] [place] [address] documented as of this encounter Visit Diagnoses Not on filedocumented in this encounter
--- OUTSIDE RECORDS SUMMARY | 2024-11-08 08:14 | XMS_ITS | Encounter Summary ---
Author Organization [facility] Address [address] [place] [address] Care Team Providers Care Field Hockey Coach Name Role Phone Unavailable Primary Care Provider Unavailabl e Encounter Details Date Type Department Care Team (Late st Contact Info) Description 10/28/2024 Bamboo flowsheet [facility] [address] [place] [address] Theodore Campbell DO [address] [place] [address] Aisha [place], [facility] Social History Tobacco Use Types [...] Start Date Job End Date Works at [employer] Not on file Not on file Not on file documented as of this encounter Plan of Treatment Upcoming Encounters Date Type Department Care Team (Late st Contact Info) Description 11/19/2024 1:30 PM EDT Office Visit [facility] [address] [facility] [place] [address] Flower Joyce PA [address] [facility] [place] [address] documented as of this encounter Visit Diagnoses Not on filedocumented in this encounter
--- OUTSIDE RECORDS SUMMARY | 2024-11-08 08:14 | XMS_ITS | Encounter Summary ---
Author Organization [facility] Address [address] [facility] [place] [address] Care Team Providers Care Climate Change Risk Assessor Name Role Phone Unavailable Primary Care Provider Unavailabl e Encounter Details Date Type Department Care Team (Late Contact Info) Description 02/29/2024 Orders Only [facility] [address] [place] [address] [place] [place] [address] Rosario JosephMolino, [place] [address] [facility] [place] [address] Social History Tobacco Use Types Packs/Day Years [...] Start Date Job End Date Works at [employer] Not on file Not on file Not on file documented as of this encounter Plan of Treatment Upcoming Encounters Date Type Department Care Team (Late st Contact Info) Description 11/19/2024 1:30 PM EDT Office Visit [facility] [address] [place] [address] Flower Joyce PA [address] [facility] [place] [address] documented as of this encounter Procedures [...]
--- OUTSIDE RECORDS SUMMARY | 2024-11-08 08:14 | XMS_ITS | Encounter Summary ---
Author Organization [facility] Address [address] [facility] [place] [address] Care Team Providers Care Funeral Arrangement Director Name Role Phone Unavailable Primary Care Provider Unavailabl e Encounter Details Date Type Department Care Team (Late st Contact Info) Description 10/16/2024 Abstract [facility] [address] [place] [address] Kaur Bailonrasteven [place] Social History Tobacco Use Types Packs/Day Years [...] Start Date Job End Date Works at [employer] Not on file Not on file Not on file documented as of this encounter Plan of Treatment Upcoming Encounters Date Type Department Care Team (Late st Contact Info) Description 11/19/2024 1:30 PM EDT Office Visit [facility] [address] [place] [address] Flower Joyce PA [address] [place] [address] documented as of this encounter Visit Diagnoses Not on filedocumented in this encounter
--- OUTSIDE RECORDS SUMMARY | 2024-11-08 08:16 | XMS_ITS | CCD ---
Author Organization [facility] Care Team Providers Care Restaurant Team Member Name Role Phone ADRIAN ., DR KWAN [...] Unavailable Primary Care Provider Unavailabl e Adrian, Theodore Attending Unavailable Adrian, Theodore Admitting Unavailable Adrian DO, Theodore Attending Provider Unavailable Primary Care Provider Unavailabl e ADRIAN, THEODORE R Referring Unavailable ADRIAN, THEODORE Attending Unavailable ADRIAN, THEODORE Attending Unavailable ADRIAN, THEODORE Referring Unavailable ISIAH, FLOWER Attending Unavailable ADRIAN, THEODORE Attending Unavailable ISIAH, FLOWER Attending Unavailable ISIAH, FLOWER Referring Unavailable ADRIAN, THEODORE Attending Unavailable ISIAH, FLOWER Attending Unavailable ADRIAN, THEODORE Attending Unavailable ADRIAN, THEODORE Attending Unavailable ADRIAN, THEODORE Attending Unavailable ADRIAN, THEODORE Attending Unavailable ADRIAN, THEODORE Attending Unavailable ISIAH, FLOWER Attending Unavailable Allergies Allergy Classification Reported Allergen(s) Allergy Type Date of Onset Reaction(s) Facility (1 source) Cefadroxil Drug Allergy [facility] Repository (1 source) natural latex rubber Drug allergy (disorder) [facility] Repository (20 sources) Cefadroxil; Translations: [CEFADROXIL] Drug Allergy 3 Hives [facility] (20 sources) Latex; Translations: [LATEX] Allergy to substance 3 Itching [facility] (20 sources) PARoxetine; Translations: [PAROXETINE] Drug Allergy 3 [facility] (1 source) Latex Propensity to adverse reactions to drug 5 Itching [facility] Medications Current Medications Medication Drug Class(es) Dates Sig (Normalized) Sig (Original) ascorbic acid 60 mg / beta carotene 5000 unt / copper sulfate 40 mg / dl-alpha tocopheryl acetate 30 unt / sodium selenite 0.04 mg / zinc oxide 40 mg oral tablet (3 sources) Vitamin C Multiple Vitamin (Multivitamin Adult) tablet Orally Active 12 hr guaiFENesin 600 mg extended [...] polysaccharide iron complex 391 mg oral capsule (6 sources) Start: 08-28-2024 End: 09-27-2024 iron polysaccharides (ProFe) 391.3 (180 Fe) MG capsule 09/08/2024 Active Thxtwjpi-Jdw-Aj-FA ( 1 + IRON PO) (20 sources) Fmlqljji-Flw-Bl-FA ( 1 + IRON PO) Active vit,jorge alberto 74/iron/folic ( VITAMIN 1+1 ORAL) (1 source) take 1 tablet by mouth in the morning vit,jorge alberto 74/iron/folic ( VITAMIN 1+1 ORAL) Take 1 tablet by mouth in the morning. Active progesterone 200 mg oral capsule (4 sources) Progesterone take 1 capsule by mouth in the morning progesterone 200 MG capsule Take 200 mg by mouth in the morning. Active ubidecarenone 30 mg oral capsule (11 sources) take 1 capsule by mouth once daily co-enzyme Q-10 30 MG capsule Take 30 mg by mouth Daily Active valACYclovir 500 mg oral tablet (15 sources) Herpesvirus Nucleoside Analog DNA Polymerase Inhibitor, [...] 150 each 3 07/25/2024 10/14/2024 Discontinued Vit-Fe Htzwini-TE-Z CAI ( VITAMIN/MIN +DHA PO) (20 sources) Start: 06-09-2023 End: 06-03-2024 Vit-Fe Ovzbfvq-EV-F CAI ( VITAMIN/MIN +DHA PO) 06/09/2023 06/03/2024 Discontinued (Other) Start: 06-09-2023 Vit-F e Pmbrrkv-OH-GZS ( VITAMIN/MIN +DHA PO) 06/09/2023 Active Progesterone [...] [37 weeks gestation of ] 10-28-2024 Episodic Residual codes; unclassified (2 sources) Gestation period, 38 weeks; Translations: [38 weeks gestation of ] 11-04-2024 Episodic Viral infection (6 sources) Herpes simplex; Translations: [Herpesviral infection, unspecified] [...] [facility] OB BPP W NON-STRESS on 11-05-2024 [place] [address] Ultrasound Report Signed Patient: BEULAH MURPHY MR#: [id number] : 1990 Acct:[id number] Age/Sex: 33 / F ADM Date: 11/05/24 Loc: [facility] 250-[address]: Theodore Campbell D.O. Ordering Physician: Theodore Campbell D.O. Date of Service: 11/05/24 Procedure(s): US OB BPP w non-stress Accession Number(s): [id number] cc: Theodore Campbell D.O.; Physician,Non-Staff M.DAp The [place] [id number] Patient Name: BEULAH MURPHY MRN: [facility]:[id number] date: 1990 Sex: F Assigned Patient Location: [facility] Current Patient Location: [facility] Accession/Order Number: [id number] Exam Date: 11/05/2024 09:45 Report Date: 11/05/2024 09:46 At the request of: THEODORE CAMPBELL DO Procedure: US OB BPP w [...] Torre M.D. 11/05/2024 9:46 AM Dictation Location: [place] [address] Electronically authenticated by: [id number] Y Date: 11/05/2024 09:46 Dictated By: Alexus De La Torre M.D. Signed By: 11/05/2448 DD/ 5 TD/TT: Dredge Boat Engineer: [facility] Radiology, Radiologist, MD - 11/05/2024 [place] [address] Ultrasound Report Signed Patient: BEULAH MURPHY MR#: [id number] : 1990 Acct:[id number] Age/Sex: 33 / F ADM Date: 11/05/24 Loc: [facility] 250-[address]: Theodore Campbell D.O. Ordering Physician: Theodore Campbell D.O. Date of Service: 11/05/24 Procedure(s): US OB BPP w non-stress Accession Number(s): [id number] cc: Theodore Campbell D.O.; Physician,Non-Staff MSalomon The [address] [address] Patient Name: BEULAH MURPHY MRN: [facility]:[id number] date: 1990 Sex: F Assigned Patient Location: [facility] Current Patient Location: [facility] Accession/Order Number: [id number] Exam Date: 11/05/2024 09:45 Report Date: 11/05/2024 09:46 At the request of: THEODORE CAMPBELL DO Procedure: US OB BPP w [...] Torre M.D. 11/05/2024 9:46 AM Dictation Location: [place] [address] Electronically authenticated by: [id number] Y Date: 11/05/2024 09:46 Dictated By: Alexus De La Torre M.D. Signed By: 11/05/2448 DD/ 5 TD/TT: Dredge Boat Engineer: [facility] Radiology Study observation (narrative) [facility] OB BPP W NON-STRESS Ordered By: Radiologist Radiology on 11-05-2024 [facility] Work Phone: Urinalysis macro (dipstick) panel (U)on 11-04-2024 Bilirubin, UA Negative Negative - 4(70) +++ mg/dL [facility] Blood, UA Negative Negative - 50 Alex/mcL [facility] Clarity, UA Clear [facility] Color, UA Yellow [facility] Glucose, UA Negative Negative - 2000(110) ++++ mg/dL [facility] Interpretation and review of laboratory results Normal [facility] Ketones, UA Negative Negative - 160(16) ++++ mg/dL [facility] Leukocytes, UA Negative Negative - 500+++ Jodi/mcL [facility] Nitrite, UA Negative Negative - Positive [facility] pH, UA 6 5 - 9 [facility] Protein, UA Negative Negative - 2000(20) ++++ mg/dL [facility] Spec Grav, UA 1.015 1 - 1.03 [facility] Urobilinogen, UA 0.2 0.2 - 12 mg/dL [facility] US OB BPP W NON-STRESS on 10-29-2024 [place] [address] Ultrasound Report Signed Patient: BEULAH MURPHY MR#: [id number] : 1990 Acct:[id number] Age/Sex: 33 / F ADM Date: 10/29/24 Loc: [facility] 250-[address]: Theodore Campbell D.O. Ordering Physician: Theodore Campbell D.O. Date of Service: 10/29/24 Procedure(s): US OB BPP w non-stress Accession Number(s): [id number] cc: Theodore Campbell D.O.; Physician,Non-Staff M.Dario The [place] [address] Patient Name: BEULAH MURPHY MRN: [facility]:[id number] date: 1990 Sex: F Assigned Patient Location: [facility] Current Patient Location: [facility] Accession/Order Number: [id number] Exam Date: 10/29/2024 09:55 Report Date: 10/29/2024 09:56 At the request of: THEODORE CAMPBELL DO Procedure: US OB BPP w non-stress Biophysical profile. Reason for exam: Excessive growth COMPARISON: 10/22/2024 TECHNIQUE: Transabdominal imaging of the gravid uterus was obtained. FINDINGS: The marine mammal trainer reports a BPP of 8 out of 8. FRANK is normal at 13.3 cm. heart rate 135 bpm. US/US OB BPP w non-stress IMPRESSION: BPP 8 out of 8. Impression dictated by: Dario Kim Jr.O. 10/29/2024 9:56 AM Dictation Location: [place] [address] Electronically authenticated by: [id number] Y Date: 10/29/2024 09:56 Dictated By: Campos Hall M.D. Signed By: 10/29/2459 DD/ 5 TD/TT: Dredge Boat Engineer: [facility] Radiology, Radiologist, - 10/29/2024 [place] [address] Ultrasound Report Signed Patient: BEULAH MURPHY MR#: [id number] : 1990 Acct:[id number] Age/Sex: 33 / F ADM Date: 10/29/24 Loc: [facility] 250-[address]: Theodore Campbell D.O. Ordering Physician: Theodore Campbell D.O. Date of Service: 10/29/24 Procedure(s): US OB BPP w non-stress Accession Number(s): [id number] cc: Theodore Campbell D.O.; Physician,Non-Staff Hussein [facility] [place] [address] Patient Name: BEULAH MURPHY MRN: [facility]:[id number] date: 1990 Sex: F Assigned Patient Location: [facility] Current Patient Location: [facility] Accession/Order Number: [id number] Exam Date: 10/29/2024 09:55 Report Date: 10/29/2024 09:56 At the request of: THEODORE CAMPBELL DO Procedure: US OB BPP w non-stress Biophysical profile. Reason for exam: Excessive growth COMPARISON: 10/22/2024 TECHNIQUE: Transabdominal imaging of the gravid uterus was obtained. FINDINGS: The marine mammal trainer reports a BPP of 8 out of 8. FRANK is normal at 13.3 cm. heart rate 135 bpm. US/US OB BPP w non-stress IMPRESSION: BPP 8 out of 8. Impression dictated by: Campos Hall Jr., D.O. 10/29/2024 9:56 AM Dictation Location: [place] [address] Electronically authenticated by: [id number] Y Date: 10/29/2024 09:56 Dictated By: Campos Hall M.D. Signed By: 10/29/24 0959 DD/ TD/TT: Dredge Boat Engineer: [facility] Radiology Study observation (narrative) [facility] US OB BPP W NON-STRESS Ordered By: Radiologist Radiology on 10-29-2024 [facility] Work Phone: Urinalysis macro (dipstick) panel (U)on 10-28-2024 Bilirubin, UA Negative Negative - 4(70) +++ mg/dL [facility] Blood, UA Negative Negative - 50 Alex/mcL [facility] Clarity, UA Clear [facility] Color, UA Yellow [facility] Glucose, UA Negative Negative - 2000(110) ++++ mg/dL [facility] Interpretation and review of laboratory results Normal [facility] Ketones, UA Negative Negative - 160(16) ++++ mg/dL [facility] Leukocytes, UA Negative Negative - 500+++ Jodi/mcL [facility] Nitrite, UA Negative Negative - Positive [facility] pH, UA 5.5 5 - 9 [facility] Protein, UA Negative Negative - 2000(20) ++++ mg/dL [facility] Spec Grav, UA 1.02 1 - 1.03 [facility] Urobilinogen, UA 1.0 0.2 - 12 mg/dL [facility] US OB BPP W NON-STRESS on 10-22-2024 [place] [address] Ultrasound Report Signed Patient: BEULAH MURPHY MR#: [id number] : 1990 Acct:[id number] Age/Sex: 33 / F ADM Date: 10/22/24 Loc: [facility] 254-[address]: Theodore Campbell D.O. Ordering Physician: Theodore Campbell D.O. Date of Service: 10/22/24 Procedure(s): US OB BPP w non-stress Accession Number(s): [id number] cc: Theodore Campbell D.O.; Physician,Non-Staff Hussein [facility] [place] [address] Patient Name: BEULAH MURPHY MRN: [facility]:[id number] date: 1990 Sex: F Assigned Patient Location: [facility] [place] [facility] [place]/Order Number: [id number] Exam Date: 10/22/2024 10:02 Report Date: 10/22/2024 10:04 At the request of: THEODORE CAMPBELL DO Procedure: US OB BPP w [...] Torre M.D. 10/22/2024 10:04 AM Dictation Location: [place] [address] Electronically authenticated by: [id number] Y Date: 10/22/2024 10:04 Dictated By: Alexus De La Torre M.D. Signed By: 10/22/24 1007 DD/ 1004 TD/TT: Dredge Boat Engineer: [facility] Radiology, Radiologist, MD - 10/22/2024 [place] [address] Ultrasound Report Signed Patient: BEULAH MURPHY MR#: [id number] : 1990 Acct:[id number] Age/Sex: 33 / F ADM Date: 10/22/24 Loc: [facility] 254-[address]: Theodore Campbell D.O. Ordering Physician: Theodore Campbell D.O. Date of Service: 10/22/24 Procedure(s): US OB BPP w non-stress Accession Number(s): [id number] cc: Theodore Campbell D.O.; Physician,Non-Staff [place] [address] Patient Name: BEULAH MURPHY MRN: [facility]:[id number] date: 1990 Sex: F Assigned Patient Location: [facility] [place] [facility] [place]ion/Order Number: [id number] Exam Date: 10/22/2024 10:02 Report Date: 10/22/2024 10:04 At the request of: THEODORE CAMPBELL DO Procedure: US OB BPP w [...] Torre M.D. 10/22/2024 10:04 AM Dictation Location: [place] [address] Electronically authenticated by: [id number] Y Date: 10/22/2024 10:04 Dictated By: Alexus De La Torre M.D. Signed By: 10/22/24 1007 DD/ 1004 TD/TT: Dredge Boat Engineer: [facility] Radiology Study observation (narrative) [facility] US OB BPP W NON-STRESS Ordered By: Radiologist Radiology on 10-22-2024 [facility] Work Phone: Urinalysis macro (dipstick) panel (U)on 10-21-2024 Bilirubin, UA Negative Negative - 4(70) +++ mg/dL [facility] Blood, UA Negative Negative - 50 Alex/mcL [facility] Clarity, UA Clear [facility] Color, UA Yellow [facility] Glucose, UA Negative Negative - 2000(110) ++++ mg/dL [facility] Interpretation and review of laboratory results Normal [facility] Ketones, UA Negative Negative - 160(16) ++++ mg/dL [facility] Leukocytes, UA Negative Negative - 500+++ Jodi/mcL [facility] Nitrite, UA Negative Negative - Positive [facility] pH, UA 6.5 5 - 9 [facility] Protein, UA Negative Negative - 1999(20) ++++ mg/dL [facility] Spec Grav, UA 1.01 1 - 1.03 [facility] Urobilinogen, UA 0.2 0.2 - 12 mg/dL [facility] US OB BPP W NON-STRESS on 10-16-2024 [place] [address] Ultrasound Report Signed Patient: BEULAH MURPHY MR#: [id number] : 1990 Acct:[id number] Age/Sex: 33 / F ADM Date: 10/15/24 Loc: US Attending Dr: Theodore Campbell D.O. Ordering Physician: Theodore Campbell D.O. Date of Service: 10/15/24 Procedure(s): US OB BPP w non-stress Accession Number(s): [id number] cc: Theodore Campbell D.O.; Physician,Non-Staff [facility] [place] [address] Patient Name: BEULAH MURPHY MRN: [facility]:[id number] date: 1990 Sex: F Assigned Patient Location: Current Patient Location: Accession/Order Number: [id number] Exam Date: 10/16/2024 07:14 Report Date: 10/16/2024 07:15 At the request of: THEODORE CAMPBELL DO Procedure: US OB BPP w [...] Torre M.D. 10/16/2024 7:15 AM Dictation Location: [place] [address] Electronically authenticated by: [id number] Y Date: 10/16/2024 07:15 Dictated By: Alexus De La Torre M.D. Signed By: 10/16/24716 DD/ 4 TD/TT: Dredge Boat Engineer: [facility] Radiology, Radiologist, MD - 10/16/2024 [place] [address] Ultrasound Report Signed Patient: BEULAH MURPHY MR#: [id number] : 1990 Acct:[id number] Age/Sex: 33 / F ADM Date: 10/15/24 Loc: US Attending Dr: Theodore Campbell D.O. Ordering Physician: Theodore Campbell D.O. Date of Service: 10/15/24 Procedure(s): US OB BPP w non-stress Accession Number(s): [id number] cc: Theodore Campbell D.O.; Physician,Non-Staff [place] [address] Patient Name: BEULAH MURPHY MRN: [facility]:[id number] date: 1990 Sex: F Assigned Patient Location: Current Patient Location: Accession/Order Number: [id number] Exam Date: 10/16/2024 07:14 Report Date: 10/16/2024 07:15 At the request of: THEODORE CAMPBELL DO Procedure: US OB BPP w [...] Torre M.D. 10/16/2024 7:15 AM Dictation Location: [place] [address] Electronically authenticated by: [id number] Y Date: 10/16/2024 07:15 Dictated By: Alexus De La Torre M.D. Signed By: 10/16/24716 DD/ 4 TD/TT: Dredge Boat Engineer: [facility] Radiology Study observation (narrative) [facility] OB BPP W NON-STRESS Ordered By: Radiologist Radiology on 10-16-2024 [facility] Work Phone: US OB FOLLOW UP TRANSABDOMIN [...] Negative Negative - 4(70) +++ mg/dL [facility] Blood, UA Negative Negative - 50 Alex/mcL [facility] Clarity, UA Cloudy [facility] Color, UA Yellow [facility] Glucose, UA Negative Negative - 2000(110) ++++ mg/dL [facility] Interpretation and review of laboratory results Normal [facility] Ketones, UA Negative Negative - 160(16) ++++ mg/dL [facility] Leukocytes, UA Negative Negative - 500+++ Jodi/mcL [facility] Nitrite, UA Negative Negative - Positive [facility] pH, UA 6.5 5 - 9 [facility] Protein, UA Negative Negative - 1999(20) ++++ mg/dL [facility] Spec Grav, UA 1.01 1 - 1.03 [facility] Urobilinogen, UA 0.2 0.2 - 12 mg/dL [facility] US OB BPP W NON-STRESS on 10-09-2024 [place] [address] Ultrasound Report Signed Patient: BEULAH MURPHY MR#: [id number] : 1990 Acct:[id number] Age/Sex: 33 / F ADM Date: 10/08/24 Loc: US Attending Dr: Theodore Campbell D.O. Ordering Physician: Theodore Campbell D.O. Date of Service: 10/08/24 Procedure(s): US OB BPP w non-stress Accession Number(s): [id number] cc: Theodore Campbell D.O.; Physician,Non-Staff M.D. The [place] [address] Patient Name: BEULAH MURPHY MRN: [facility]:[id number] date: 1990 Sex: F Assigned Patient Location: US Current Patient Location: Accession/Order Number: [id number] Exam Date: 10/09/2024 07:51 Report Date: 10/09/2024 07:52 At the request of: THEODORE CAMPBELL DO Procedure: US OB BPP w [...] Torre M.D. 10/09/2024 7:52 AM Dictation Location: [place] [address] Electronically authenticated by: [id number] Y Date: 10/09/2024 07:52 Dictated By: Alexus De La Torre M.D. Signed By: 10/09/24 0945 DD/ 0752 TD/TT: Dredge Boat Engineer: [facility] Radiology, Radiologist, MD - 10/09/2024 [place] [address] Ultrasound Report Signed Patient: BEULAH MURPHY MR#: [id number] : 1990 Acct:[id number] Age/Sex: 33 / F ADM Date: 10/08/24 Loc: US Attending Dr: Theodore aCmpbell D.O. Ordering Physician: Theodore Campbell D.O. Date of Service: 10/08/24 Procedure(s): US OB BPP w non-stress Accession Number(s): [id number] cc: Theodore Campbell D.O.; Physician,Non-Staff [facility] The [address] [id number] Patient Name: BEULAH MURPHY MRN: [facility]:[id number] date: 1990 Sex: F Assigned Patient Location: US Current Patient Location: Accession/Order Number: [id number] Exam Date: 10/09/2024 07:51 Report Date: 10/09/2024 07:52 At the request of: THEODORE CAMPBELL DO Procedure: US OB BPP w [...] Torre M.D. 10/09/2024 7:52 AM Dictation Location: [place] [address] Electronically authenticated by: [id number] Y Date: 10/09/2024 07:52 Dictated By: Alexus De La Torre M.D. Signed By: 10/09/24 0945 DD/ 0752 TD/TT: Dredge Boat Engineer: [facility] Radiology Study observation (narrative) [facility] US OB BPP W NON-STRESS Ordered By: Radiologist Radiology on 10-09-2024 [facility] Work Phone: US OB BPP W NON-STRESS on 10-02-2024 [place] [address] Ultrasound Report Signed Patient: BEULAH MURPHY MR#: [id number] : 1990 Acct:[id number] Age/Sex: 33 / F ADM Date: 10/01/24 Loc: US Attending Dr: Theodore Campbell D.O. Ordering Physician: Theodore Campbell D.O. Date of Service: 10/01/24 Procedure(s): US OB BPP w non-stress Accession Number(s): [id number] cc: Theodore Campbell D.O.; Physician,Non-Staff [facility] The [address] [address] Patient Name: BEULAH MURPHY MRN: [facility]:[id number] date: 1990 Sex: F Assigned Patient Location: [facility] Current Patient Location: Accession/Order Number: [id number] Exam Date: 10/02/2024 08:04 Report Date: 10/02/2024 08:07 At the request of: THEODORE CAMPBELL DO Procedure: US OB BPP w [...] Torre M.D. 10/02/2024 8:07 AM Dictation Location: [place] [address] Electronically authenticated by: [id number] Y Date: 10/02/2024 08:07 Dictated By: Alexus De La Torre M.D. Signed By: 10/02/24 0810 DD/ 08 TD/TT: Dredge Boat Engineer: [facility] Radiology, Radiologist, MD - 10/02/2024 [place] [address] Ultrasound Report Signed Patient: BEULAH MURPHY MR#: [id number] : 1990 Acct:[id number] Age/Sex: 33 / F ADM Date: 10/01/24 Loc: US Attending Dr: Theodore Campbell D.O. Ordering Physician: Theodore Campbell D.O. Date of Service: 10/01/24 Procedure(s): US OB BPP w non-stress Accession Number(s): [id number] cc: Theodore Campbell D.O.; Physician,Non-Staff [place] [address] Patient Name: BEULAH MURPHY MRN: [facility]:[id number] date: 1990 Sex: F Assigned Patient Location: [facility] Current Patient Location: Accession/Order Number: [id number] Exam Date: 10/02/2024 08:04 Report Date: 10/02/2024 08:07 At the request of: THEODORE CAMPBELL DO Procedure: US OB BPP w [...] Torre M.D. 10/02/2024 8:07 AM Dictation Location: [place] [address] Electronically authenticated by: [id number] Y Date: 10/02/2024 08:07 Dictated By: Alexus De La Torre M.D. Signed By: 10/02/24 0810 DD/ 08 TD/TT: Dredge Boat Engineer: [facility] Radiology Study observation (narrative) [facility] OB BPP W NON-STRESS Ordered By: Radiologist Radiology on 10-02-2024 [facility] Work Phone: Urinalysis macro (dipstick) panel (U)on 09-30-2024 Bilirubin, UA Negative Negative - 4(70) +++ mg/dL [facility] Blood, UA Negative Negative - 50 Alex/mcL [facility] Clarity, UA Clear [facility] Color, UA Yellow [facility] Glucose, UA Negative Negative - 2000(110) ++++ mg/dL [facility] Interpretation and review of laboratory results Abnormal [facility] Ketones, UA Positive Negative - 160(16) ++++ mg/dL [facility] Comment on above: 15mg/dL Leukocytes, UA Negative Negative - 500+++ Jodi/mcL [facility] Nitrite, UA Negative Negative - Positive [facility] pH, UA 6 5 - 9 [facility] Protein, UA Negative Negative - 2000(20) ++++ mg/dL [facility] Spec Grav, UA 1.02 1 - 1.03 [facility] Urobilinogen, UA 0.2 0.2 - 12 mg/dL [facility] US OB BPP W NON-STRESS on 09-25-2024 [place] [address] Ultrasound Report Signed Patient: BEULAH MURPHY MR#: [id number] : 1990 Acct:[id number] Age/Sex: 33 / F ADM Date: 09/24/24 Loc: US Attending Dr: Theodore Campbell D.O. Ordering Physician: Theodore Campbell D.O. Date of Service: 09/24/24 Procedure(s): US OB BPP w non-stress Accession Number(s): [id number] cc: Theodore Campbell D.O.; Physician,Non-Staff M.DAp The [address] [address] Patient Name: BEULAH MURPHY MRN: [id number] date: 1990 Sex: F Assigned Patient Location: Current Patient Location: Accession/Order Number: [id number] Exam Date: 09/25/2024 07:56 Report Date: 09/25/2024 07:58 At the request of: THEODORE CAMPBELL DO Procedure: US OB BPP w [...] Swartz M.D. 09/25/2024 7:58 AM Dictation Location[facility] Electronically authenticated by: [id number] Y Date: 09/25/2024 07:58 Dictated By: Manuel Swartz D.O. Signed By: 09/25/24 0800 DD/ 0758 TD/TT: Dredge Boat Engineer: [facility] Radiology, Radiologist, MD - 09/25/2024 [place] [address] Ultrasound Report Signed Patient: BEULAH MURPHY MR#: [id number] : 1990 Acct:[id number] Age/Sex: 33 / F ADM Date: 09/24/24 Loc: US Attending Dr: Theodore Campbell D.O. Ordering Physician: Theodore Campbell D.O. Date of Service: 09/24/24 Procedure(s): US OB BPP w non-stress Accession Number(s): [id number] cc: Theodore Campbell D.O.; Physician,Non-Staff [facility] The [address] [id number] Patient Name: BEULAH MURPHY MRN: [facility]:[id number] date: 1990 Sex: F Assigned Patient Location: US Current Patient Location: Accession/Order Number: [id number] Exam Date: 09/25/2024 07:56 Report Date: 09/25/2024 07:58 At the request of: THEODORE CAMPBELL DO Procedure: US OB BPP w [...] Swartz M.D. 09/25/2024 7:58 AM Dictation Location: [facility] Electronically authenticated by: [id number] Y Date: 09/25/2024 07:58 Dictated By: Manuel Swartz D.O. Signed By: 09/25/24 0800 DD/ 0758 TD/TT: Dredge Boat Engineer: [facility] Radiology Study observation (narrative) [facility] US OB BPP W NON-STRESS Ordered By: Radiologist Radiology on 09-25-2024 [facility] Work Phone: US OB FOLLOW UP TRANSABDOMIN [...] PHD at 18-Sep-2024 08:23:43 AM [facility] Normal Not Available Comment on above: Order Comment: US OB SCAN FOR GROWTH Estimated Date of Delivery: 11/17/24 Gestational Age as of 08/27/2024: 28w2d Urinalysis macro (dipstick) panel (U)on 09-17-2024 Bilirubin, UA Negative Negative - 4(70) +++ mg/dL [facility] Blood, UA Negative Negative - 50 Alex/mcL [facility] Clarity, UA Clear [facility] Color, UA Yellow [facility] Glucose, UA Negative Negative - 1999(110) ++++ mg/dL [facility] Interpretation and review of laboratory results Normal [facility] Ketones, UA Negative Negative - 160(16) ++++ mg/dL [facility] Leukocytes, UA Negative Negative - 500+++ Jodi/mcL [facility] Nitrite, UA Negative Negative - Positive [facility] pH, UA 7 5 - 9 [facility] Protein, UA Negative Negative - 1999(20) ++++ mg/dL [facility] Spec Grav, UA 1.01 1 - 1.03 [facility] Urobilinogen, UA 0.2 0.2 - 12 mg/dL [facility] M[facility] HEMOGLOBIN A1Con 025 Glucose [Mass/Vol] 114 mg/dL [facility] HbA1c (Bld) [Mass fraction] 5.6 % 4.5 - 6.2 % [facility] Comment on above: ADA RECOMMENDED LIMI T 4.0 - 6.0 ADA THERAPEUTIC TARGET < 7.0 ACTION SUGGESTED > 7.0 [facility] Urinalysis macro (dipstick) panel (U)Ordered By: Asha Pereira on 08-27-2024 Bilirubin, UA Negative Negative - 4(70) +++ mg/dL [facility] Work Phone: Blood, UA Negative Negative - 50 Alex/mcL [facility] Work Phone: Clarity, UA Clear [facility] Work Phone: Color, UA Yellow [facility] Work Phone: Glucose, UA Negative Negative - 2000(110) ++++ mg/dL [facility] Work Phone: Interpretation and review of laboratory results Normal [facility] Work Phone: Ketones, UA Negative Negative - 160(16) ++++ mg/dL [facility] Work Phone: Leukocytes, UA Negative Negative - 500+++ Jodi/mcL [facility] Healthcare Work Phone: Nitrite, UA Negative Negative - Positive [facility] Work Phone: pH, UA 6.5 5 - 9 [facility] Healthcare Work Phone: Protein, UA Negative Negative - 1999(20) ++++ mg/dL [facility] Work Phone: Spec Grav, UA 1.015 1 - 1.03 [facility] Work Phone: Urobilinogen, UA 0.2 0.2 - 12 mg/dL [facility] Work Phone: [facility] Work Phone: US OB LIMITED 1+ FETUSESon [...] II, MD, PHD at 01-Aug-2024 11:20:36 PM [facility] Normal Not Available Comment on above: Order Comment: US OB INCOMPLETE ANATOMY Estimated Date of Delivery: 11/17/24 Gestational Age as of 07/08/2024: 21w1d RECURRENT VAGINITIS (HTRX)on 06-04-2024 ATOPOBIUM VAGINAE 0 [facility] Healthcare ATOPOBIUM VAGINAE Not detected [facility] BVAB 2,3 (BACTERIAL VAGINOSIS ASSOCIATED BACTERIA 2, 3); MOBILUNCUS SPP 0 [facility] BVAB 2,3 (BACTERIAL VAGINOSIS ASSOCIATED BACTERIA 2, 3); MOBILUNCUS SPP Not detected [facility] NICA ALBICANS, PARAPSILOSIS, TROPICALIS 0 [facility] Healthcare NICA ALBICANS, PARAPSILOSIS, TROPICALIS Not detected [facility] NICA GLABRATA 0 [facility] NICA GLABRATA Not detected [facility] NICA KRUSEI 0 [facility] NICA KRUSEI Not detected [facility] CHLAMYDIA TRACHOMATIS 0 [facility] CHLAMYDIA TRACHOMATIS Not detected [facility] GARDNERELLA VAGINALIS 29.376 Abnormal [facility] GARDNERELLA VAGINALIS Detected Abnormal [facility] Interpretation and review of laboratory results Abnormal [facility] MEGASPHAERA (TYPES 1, 2) 0 [facility] MEGASPHAERA (TYPES 1, 2) Not detected [facility] MYCOPLASMA GENITALIUM 0 [facility] MYCOPLASMA GENITALIUM Not detected [facility] NEISSERIA GONORRHOEAE 0 [facility] NEISSERIA GONORRHOEAE Not detected [facility] TRICHOMONAS VAGINALIS 0 [facility] TRICHOMONAS VAGINALIS Not detected [facility] US OB 14+ WEEKS ANATOMY SCAN on [...] II, MD, PHD at 02-Jul-2024 09:56:12 AM [facility] Normal Not Available Comment on above: Order Comment: US OB ANATOMY SINGLE W US OB CERVICAL LENGTH Estimated Date of Delivery: 11/17/24 Gestational Age as of 06/03/2024: 16w1d Urinalysis macro (dipstick) panel (U)on 06-03-2024 Bilirubin, UA Negative Negative - 4(70) +++ mg/dL [facility] Blood, UA Positive Negative - 50 Alex/mcL [facility] Comment on above: trace-intact Clarity, UA Clear [facility] Color, UA Yellow [facility] Glucose, UA Negative Negative - 1999(110) ++++ mg/dL [facility] Interpretation and review of laboratory results Abnormal [facility] Ketones, UA Positive Negative - 160(16) ++++ mg/dL [facility] Comment on above: 15mg/dL Leukocytes, UA Negative Negative - 500+++ Jodi/mcL [facility] Nitrite, UA Negative Negative - Positive [facility] pH, UA 5.5 5 - 9 [facility] Protein, UA Negative Negative - 1999(20) ++++ mg/dL [facility] Spec Grav, UA 1.02 1 - 1.03 [facility] Urobilinogen, UA 0.2 0.2 - 12 mg/dL [facility] Urinalysis macro (dipstick) panel (U)on 05-02-2024 Bilirubin, UA Trace Negative - 4(70) +++ mg/dL [facility] Blood, UA Negative Negative - 50 Alex/mcL [facility] Clarity, UA Clear [facility] Color, UA Yellow [facility] Glucose, UA Negative Negative - 1999(110) ++++ mg/dL [facility] Interpretation and review of laboratory results Abnormal [facility] Ketones, UA Positive Negative - 160(16) ++++ mg/dL [facility] Leukocytes, UA Negative Negative - 500+++ Jodi/mcL [facility] Nitrite, UA Negative Negative - Positive [facility] pH, UA 6 5 - 9 [facility] Protein, UA Positive Negative - 1999(20) ++++ mg/dL [facility] Spec Grav, UA 1.03 1 - 1.03 [facility] Urobilinogen, UA 0.2 0.2 - 12 mg/dL [facility] ALL CBC WITH AUTO DIFFon BASOPHILS ABSOLUTE AUTO 0 [facility] Basophils/100 WBC (Bld) 0.4 % 0.2 - 2.0 % [facility] Eosinophils/100 WBC (Bld) 0.6 % Low 0.9 - 7.0 % [facility] Erythrocyte distribution width (RBC) [Ratio] 14.1 % 11.0 - 15.0 % [facility] Hematocrit (Bld) [Volume fraction] 40.6 % 36.0 - 48.0 % [facility] Hemoglobin (Bld) [Mass/Vol] 13.1 g/dL 12.0 - 16.0 g/dL [facility] IMMATURE GRANULOCYTES ABS AUTO 0.03 [facility] Immature granulocytes/100 WBC (Bld) 0.3 % 0.0 - 0.5 % [facility] Interpretation and review of laboratory results Abnormal [facility] LYMPHOCYTES ABSOLUTE AUTO 1.9 [facility] Lymphocytes/100 WBC (Bld) 19.1 % Low 20.5 - 60.0 % [facility] MCH (RBC) [Entitic mass] 27.9 pg 26.7 - 34.0 pg [facility] MCHC (RBC) [Mass/Vol] 32.3 g/dL 29.9 - 35.2 g/dL [facility] MCV (RBC) [Entitic vol] 86.6 fL 81.0 - 99.0 fL [facility] MONOCYTES ABSOLUTE AUTO 0.5 [facility] Monocytes/100 WBC (Bld) 5.4 % 1.7 - 12.0 % [facility] NEUTROPHILS ABSOLUTE AUTO 7.4 High [facility] Neutrophils/100 WBC (Bld) 74.2 % 43.0 - 75.0 % [facility] Platelet mean volume (Bld) [Entitic vol] 9.3 fL Low 9.5 - 13.5 fL [facility] TBH EO # 0.1 [facility] TBH PLT [address] [facility] RBC 4.69 [facility] WBC 9.9 [facility] US OB TRANSVAGINALon 025 US OB TRANSVAGINAL [...] x 3.6 cm (8 weeks, 0 days). [place] rump length is 1.8 cm (8 weeks, [...] (U) No Growth 2 Days PERFORMED BY: [address] [address] PATHOLOGIST BATTERY TESTER AND REPAIRER TOSHA PÉREZ M.D. Normal [facility] Comment on above: Performed By: #### C UU #### [address] [facility] PREG QUANT HCGon 024 HCG QUANTITATIVE 7110 mIU/mL [facility] Healthcare Comment on above: 5-50 0.2-1 WEEK 50-500 1-2 WEEKS 100-5,000 2-3 WEEKS 500-10,000 3-4 WEEKS 1,000-50,000 4-5 WEEKS 10,000-100,000 5-6 WEEKS 15,000-200,000 6-8 WEEKS 10,000-100,000 2-[facility] 024 HCG QUANTITATIVE 5107 mIU/mL [facility] Comment on above: 5-50 0.2-1 WEEK 50-500 1-2 WEEKS 100-5,000 2-3 WEEKS 500-10,000 3-4 WEEKS 1,000-50,000 4-5 WEEKS 10,000-100,000 5-6 WEEKS 15,000-200,000 6-8 WEEKS 10,000-100,000 2-3 MONTHS [facility] PREG QUANT HCGon 024 HCG QUANTITATIVE 2902 mIU/mL [facility] Comment on above: 5-50 0.2-1 WEEK 50-500 1-2 WEEKS 100-5,000 2-3 WEEKS 500-10,000 3-4 WEEKS 1,000-50,000 4-5 WEEKS 10,000-100,000 5-6 WEEKS 15,000-200,000 6-8 WEEKS 10,000-100,000 2-3 MONTHS [facility]OR [facility] PREG QUANT HCGon 024 HCG QUANTITATIVE 1345 mIU/mL [facility] Comment on above: 5-50 0.2-1 WEEK 50-500 1-2 WEEKS 100-5,000 2-3 WEEKS 500-10,000 3-4 WEEKS 1,000-50,000 4-5 WEEKS 10,000-100,000 5-6 WEEKS 15,000-200,000 6-8 WEEKS 10,000-100,000 2-3 MONTHS [facility] PREG QUANT HCGon 024 HCG QUANTITATIVE 420 mIU/mL [facility] Comment on above: 5-50 0.2-1 WEEK 50-500 1-2 WEEKS 100-5,000 2-3 WEEKS 500-10,000 3-4 WEEKS 1,000-50,000 4-5 WEEKS 10,000-100,000 5-6 WEEKS 15,000-200,000 6-8 WEEKS 10,000-100,000 2-3 MONTHS [facility] PREG QUANT HCGon 024 HCG QUANTITATIVE 184 mIU/mL [facility] Comment on above: 5-50 0.2-1 WEEK 50-500 1-2 WEEKS 100-5,000 2-3 WEEKS 500-10,000 3-4 WEEKS 1,000-50,000 4-5 WEEKS 10,000-100,000 5-6 WEEKS 15,000-200,000 6-8 WEEKS 10,000-100,000 2-3 MONTHS [facility] PREG QUANT HCGon 024 HCG QUANTITATIVE 59 mIU/mL [facility] Comment on above: 5-50 0.2-1 WEEK 50-500 1-2 WEEKS 100-5,000 2-3 WEEKS 500-10,000 3-4 WEEKS 1,000-50,000 4-5 WEEKS 10,000-100,000 5-6 WEEKS 15,000-200,000 6-8 WEEKS 10,000-100,000 2-3 MONTHS [facility] ALL PROGESTERONEon 4 PROGESTERONE 9.3 ng/mL . [facility] Comment on above: Follicular phase 0.1 - 0.9 Luteal phase 1.8 - 23.9 Ovulation phase 0.1 - 12.0 First trimester 11.0 - 44.3 Second trimester 25.4 - 83.3 Third trimester 58.7 - 214.0 Postmenopausal 0.0 - 0.1 Performed at: [address] [id number] Halftone Operator: Josr Jarvis PhD, Phone: [phone] [facility] IGP,APTIMA HPV,AGE GDLNon AGE GDLN ACOG TESTING Note . [facility] Comment on above: TESTS RESULT FLAG UN ITS REF RANGE LAB Clinician Provided Cytology Information Source.............Cervix;Endocervix No. of containers..01 ThinPrep Vial Age Algo ACOG Jacinta... FLAG LEGEND: L-Low Normal,H-High Normal,LL-Alert Low,HH-Alert High <-Panic Low,>-Panic High,A-Abnormal,AA-Critical Abnormal Performed at: 01 =[address] [address] Stacey Tao MD, HPV APTIMA Negative Negative [facility] Comment on above: This nucleic acid am plification test detects fourteen high- risk HPV types (16,18,31,33,35,39,45,51,52,56,58,59,66,68) without differentiation. Performed at: =[address] [id number] Halftone Operator: Stacey Tao MD, Phone: [phone] Performed at: [address] [id number] Halftone Operator: Stacey Tao MD, Phone: [phone] IGP, APTIMA HPV, RFX 16/18,45 Note . [facility] Comment on above: TESTS RESULT FLAG U NITS REF RANGE LAB DIAGNOSIS: 02 NEGATIVE FOR INTRAEPITHELIAL LESION OR MALIGNANCY. Specimen adequacy: 02 Satisfactory for evaluation. Endocervical and/or squamous metaplastic cells (endocervical component) are present. Performed by: 02 Beulah Mancilla, Skilled Nursing Professional (ASCP) . 02 Note: Note 02 The [...] High,A-Abnormal,AA-Critical Abnormal Performed at: 02 [facility] [address] [place] [address] Stacey Tao MD, BRUSH-SPATULA CERVIX ENDOCERVIX [facility]INIS[facility] DHEA-SULFATEon 08-23-2022 DHEA-Sulfate 352.0 ug/dL Normal 84.8-378.0 [facility] Comment on above: Performed By: #### L BCLH #### [facility] [address] [place] [address] Dr. Nam Keenan FSHon 08-23-2022 FSH 6.7 mIU/mL Normal [facility] Comment on above: Result Comment: Adul t Female: Follicular phase 3.5 - 12.5 Ovulation phase 4.7 - 21.5 Luteal phase 1.7 - 7.7 Postmenopausal 25.8 - 134.8 Performed By: #### L BCFSH #### [facility] [address] [place] [address] Dr. Nam Keenan LUTEINIZING HORMONE (LH)on 0 08-23-2022 LH 13.7 mIU/mL Normal [facility] Comment on above: Result Comment: Adul t Female: Follicular phase 2.4 - 12.6 Ovulation phase 14.0 - 95.6 Luteal phase 1.0 - 11.4 Postmenopausal 7.7 - 58.5 Performed By: #### L BCLH #### [facility] [address] [place] [address] Dr. Nam Keenan CBC AUTO DIFFon 08-22-2022 BASO # 0.1 103/ul Normal 0.0-0.1 [facility] Comment on above: Performed By: #### L BCLH #### [facility] [address] [place] [address] Dr. Nam Keenan Basophils/100 WBC (Bld) 0.7 % Normal 0.2-2.0 [facility] Comment on above: Performed By: #### L BCLH #### [facility] [address] [place] [address] Dr. Nam Keenan EO # 0.3 103/ul Normal 0.0-0.7 [facility] Comment on above: Performed By: #### L BCLH #### [facility] [address] [place] [address] Dr. Nam Keenan Eosinophils/100 WBC (Bld) 3.9 % Normal 0.9-7.0 [facility] Comment on above: Performed By: #### L BCLH #### [facility] [address] [place] [address] Dr. Nam Keenan Erythrocyte distribution width (RBC) [Ratio] 13.3 % Normal 11.0-15.0 [facility] Comment on above: Performed By: #### L BCLH #### [facility] [address] [place] [address] Dr. Nam Keenan Hematocrit (Bld) [Volume fraction] 38.7 % Normal 36.0-48.0 [facility] Comment on above: Performed By: #### L BCLH #### [facility] [address] [place] [address] Dr. Nam Keenan Hemoglobin (Bld) [Mass/Vol] 12.4 g/dL Normal 12.0-16.0 [facility] Comment on above: Performed By: #### L BCLH #### [facility] [address] [place] [address] Dr. Nam Keenan IG # 0.01 10e3/ul Normal 0.00-0.03 [facility] Comment on above: Performed By: #### L BCLH #### [facility] [address] [place] [address] Dr. Nam Keenan IG % 0.1 % Normal 0.0-0.5 [facility] Comment on above: Performed By: #### L BCLH #### [facility] [address] [place] [address] Dr. Nam Keenan LYMPH # 2.9 103/ul Normal 1.2-3.8 [facility] Comment on above: Performed By: #### L BCLH #### [facility] [address] [place] [address] Dr. Nam Keenan Lymphocytes/100 WBC (Bld) 34.4 % Normal 20.5-60.0 [facility] Comment on above: Performed By: #### L BCLH #### [facility] [address] [place] [address] Dr. Nam Keenan MANUAL DIFF REQ NO Normal [facility] Comment on above: Performed By: #### L BCLH #### [facility] [address] [address] [address] Nam Keenan MCH (RBC) [Entitic mass] 27.8 pg Normal 26.7-34.0 [facility] Comment on above: Performed By: #### L BCLH #### [facility] [address] [place] [address] Dr. Nam Keenan MCHC (RBC) [Mass/Vol] 32.0 g/dL Normal 29.9-35.2 [facility] Comment on above: Performed By: #### L BCLH #### [facility] [address] [place] [address] Dr. Nam Keenan MCV (RBC) [Entitic vol] 86.8 fL Normal 81.0-99.0 [facility] Comment on above: Performed By: #### L BCLH #### [facility] [address] [place] [address] Dr. Nam Keenan MONO # 0.6 103/ul Normal 0.3-0.8 [facility] Comment on above: Performed By: #### L BCL #### [facility] [address] [place] [address] Dr. Nam Keenan Monocytes/100 WBC (Bld) 6.7 % Normal 1.7-12.0 [facility] Comment on above: Performed By: #### L BCL #### [facility] [address] [place] [address] Dr. Nam Keenan NEUT # 4.6 103/ul Normal 1.4-6.5 [facility] Comment on above: Performed By: #### L BCLH #### [facility] [address] [place] [address] Dr. Nam Keenan Neutrophils/100 WBC (Bld) 54.2 % Normal 43.0-75.0 [facility] Comment on above: Performed By: #### L BCLH #### [facility] [address] [place] [address] Dr. Nam Keenan Platelet mean volume (Bld) [Entitic vol] 9.6 fL Normal 9.5-13.5 [facility] Comment on above: Performed By: #### L BCL #### [facility] [address] [address] [address] Nam Keenan PLT 335 103/ul Normal 150-450 [facility] Comment on above: Performed By: #### L BCL #### [facility] [address] [address] [address] Nam Keenan RBC 4.46 106/ul Normal 4.20-5.40 [facility] Comment on above: Performed By: #### L BCL #### [facility] [address] [address] [address] Nam Keenan WBC 8.5 103/ul Normal 4.0-11.0 [facility] Comment on above: Performed By: #### L AMY #### [facility] [address] [place] [address] Dr. Nam Keenan FREE T4on 08-22-2022 Free T4 [Mass/Vol] 1.14 ng/dL Normal 0.76-1.46 [facility] Comment on above: Performed By: #### L AMY #### [facility] [address] [place] [address] Dr. Nam Keenan GLYCOHEMOGLOBIN A1Con 2022 ADA RECOMMENDATION SEE BELOW Normal [facility] Comment on above: Result Comment: ADA RECOMMENDED LIMIT 4.0 - 6.0 ADA THERAPEUTIC TARGET < 7.0 ACTION SUGGESTED > 7.0 Performed By: #### A 1C #### [facility] [address] [place] [address] Dr. Nam Keenan Glucose [Mass/Vol] 97 mg/dL Normal [facility] Comment on above: Performed By: #### A 1C #### [facility] [address] [place] [address] Dr. Nam Keenan HbA1c (Bld) [Mass fraction] 5.0 % Normal 4.5-6.2 [facility] Comment on above: Performed By: #### A 1C #### [facility] [address] [place] [address] Dr. Nam Keenan PREG QUANT HCGon 08-22-2022 HCG QUANT <1 Normal [facility] Comment on above: Performed By: #### P REGQNT, TSH #### [facility] [address] [place] [address] Dr. Nam Keenan HCG RANGE SEE BELOW Normal [facility] Comment on above: Result Comment: 5-50 0.2-1 WEEK 50-500 1-2 WEEKS 100-5,000 2-3 WEEKS 500-10,000 3-4 WEEKS 1,000-50,000 4-5 WEEKS 10,000-100,000 5-6 WEEKS 15,000-200,000 6-8 WEEKS 10,000-100,000 2-3 MONTHS Performed By: #### P REGQNT, TSH #### [facility] [address] [place] [address] Dr. Nam Keenan TSHon 08-22-2022 TSH 2.026 uIU/mL Normal 0.358-3.740 [facility] Comment on above: Performed By: #### P REGQNT, TSH #### [facility] [address] [place] [address] Dr. Nam Keenan PREG QUANT HCGon 05-27-2022 HCG QUANT 3 mIU/mL Normal [facility] Comment on above: Performed By: #### P REGQNT #### [facility] [address] [place] [address] Dr. Nam Keenan HCG RANGE SEE BELOW Normal [facility] Comment on above: Result Comment: 5-50 0.2-1 WEEK 50-500 1-2 WEEKS 100-5,000 2-3 WEEKS 500-10,000 3-4 WEEKS 1,000-50,000 4-5 WEEKS 10,000-100,000 5-6 WEEKS 15,000-200,000 6-8 WEEKS 10,000-100,000 2-3 MONTHS Performed By: #### P REGQNT #### [facility] [address] [place] [address] Dr. Nam Keenan CBC AUTO DIFFon 05-22-2022 BASO # 0.1 103/ul Normal 0.0-0.1 [facility] Comment on above: Performed By: #### L BCLH #### [facility] [address] [address] [address] Nam Keenan Basophils/100 WBC (Bld) 0.7 % Normal 0.2-2.0 [facility] Comment on above: Performed By: #### L BCLH #### [facility] [address] [address] [address] Nam Keenan EO # 0.2 103/ul Normal 0.0-0.7 [facility] [facility] Comment on above: Performed By: #### L BCLH #### [facility] [address] [place] [address] Dr. Nam Keenan Eosinophils/100 WBC (Bld) 1.6 % Normal 0.9-7.0 [facility] Comment on above: Performed By: #### L BCLH #### [facility] [address] [place] [address] Dr. Nam Keenan Erythrocyte distribution width (RBC) [Ratio] 13.9 % Normal 11.0-15.0 [facility] Comment on above: Performed By: #### L BCL #### [facility] [address] [place] [address] Dr. Nam Keenan Hematocrit (Bld) [Volume fraction] 36.2 % Normal 36.0-48.0 [facility] Comment on above: Performed By: #### L BCL #### [facility] [address] [place] [address] Dr. Nam Keenan Hemoglobin (Bld) [Mass/Vol] 12.1 g/dL Normal 12.0-16.0 [facility] Comment on above: Performed By: #### L BCLH #### [facility] [address] [place] [address] Dr. Nam Keenan IG # 0.03 10e3/ul Normal 0.00-0.03 [facility] Comment on above: Performed By: #### L BCLH #### [facility] [address] [place] [address] Dr. Nam Keenan IG % 0.3 % Normal 0.0-0.5 [facility] Comment on above: Performed By: #### L BCLH #### [facility] [address] [address] [address] Nam Keenan LYMPH # 3.9 103/ul Critically high 1.2-3.8 [facility] Comment on above: Performed By: #### L BCLH #### [facility] [address] [address] [address] Nam Keenan Lymphocytes/100 WBC (Bld) 38.0 % Normal 20.5-60.0 [facility] Comment on above: Performed By: #### L BCLH #### [facility] [address] [address] [address] Nam Keenan MANUAL DIFF REQ NO Normal [facility] Comment on above: Performed By: #### L BCLH #### [facility] [address] [place] [address] Dr. Nam Keenan MCH (RBC) [Entitic mass] 28.0 pg Normal 26.7-34.0 [facility] Comment on above: Performed By: #### L BCLH #### [facility] [address] [place] [address] Dr. Nam Keenan MCHC (RBC) [Mass/Vol] 33.4 g/dL Normal 29.9-35.2 [facility] Comment on above: Performed By: #### L BCLH #### [facility] [address] [place] [address] Dr. Nam Keenan MCV (RBC) [Entitic vol] 83.8 fL Normal 81.0-99.0 [facility] Comment on above: Performed By: #### L BCLH #### [facility] [address] [place] [address] Dr. Nam Keenan MONO # 0.8 103/ul Normal 0.3-0.8 [facility] Comment on above: Performed By: #### L BCLH #### [facility] [address] [place] [address] Dr. Nam Keenan Monocytes/100 WBC (Bld) 7.6 % Normal 1.7-12.0 [facility] Comment on above: Performed By: #### L BCLH #### [facility] [address] [place] [address] Dr. Nam Keenan NEUT # 5.4 103/ul Normal 1.4-6.5 [facility] Comment on above: Performed By: #### L BCLH #### [facility] [address] [place] [address] Dr. Nam Keenan Neutrophils/100 WBC (Bld) 51.8 % Normal 43.0-75.0 [facility] Comment on above: Performed By: #### L BCLH #### [facility] [address] [place] [address] Dr. Nam Keenan Platelet mean volume (Bld) [Entitic vol] 9.1 fL Critically low 9.5-13.5 [facility] Comment on above: Performed By: #### L BCLH #### [facility] [address] [place] [address] Dr. Nam Keenan PLT 342 103/ul Normal 150-450 [facility] Comment on above: Performed By: #### L BCLH #### [facility] [address] [place] [address] Dr. Nam Keenan RBC 4.32 106/ul Normal 4.20-5.40 [facility] Comment on above: Performed By: #### L BCLH #### [facility] [address] [place] [address] Dr. Nam Keenan WBC 10.3 103/ul Normal 4.0-11.0 [facility] Comment on above: Performed By: #### L BCLH #### [facility] [address] [place] [address] Dr. Nam Keenan PROF CHEM 8 (BAS METB)on Anion gap [Moles/Vol] 12.1 mmol/L Normal [facility] Comment on above: Performed By: #### B MP #### [facility] [address] [place] [address] Dr. Nam Keenan Calcium [Mass/Vol] 8.9 mg/dL Normal 8.5-10.1 [facility] Comment on above: Performed By: #### B MP #### [facility] [address] [address] [address] Nam Keenan Chloride [Moles/Vol] 105 mmol/L Normal 98-107 [facility] Comment on above: Performed By: #### B MP #### [facility] [address] [address] [address] Nam Keenan CO2 [Moles/Vol] 27.4 mmol/L Normal 21.0-32.0 [facility] Comment on above: Performed By: #### B MP #### [facility] [address] [address] [address] Nam Keenan Creatinine [Mass/Vol] 0.66 mg/dL Normal 0.55-1.02 [facility] Comment on above: Performed By: #### B MP #### [facility] [address] [place] [address] Dr. Nam Keenan EGFR-AF CITIZEN OF [place] >60 Normal >=60 [facility] Comment on above: Performed By: #### B MP #### [facility] [address] [address] [address] Nam Keenan EGFR-NON AF CITIZEN OF [place] >60 Normal >=60 [facility] Comment on above: Performed By: #### B MP #### [facility] [address] [address] [address] Nam Keenan Glucose [Mass/Vol] 105 mg/dL Normal 74-106 [facility] Comment on above: Performed By: #### B MP #### [facility] [address] [address] [address] Nam Keenan Potassium [Moles/Vol] 3.5 mmol/L Normal 3.5-5.1 [facility] Comment on above: Performed By: #### B MP #### [facility] [address] [address] [address] Nam Keenan Sodium [Moles/Vol] 141 mmol/L Normal 136-145 [facility] Comment on above: Performed By: #### B MP #### [facility] [address] [address] [address] Nam Keenan Urea nitrogen [Mass/Vol] 7.0 mg/dL Normal 7.0-18.0 [facility] Comment on above: Performed By: #### B #### [facility] [address] [place] [address] Dr. Nam Keenan Urea nitrogen/Creatinine [Mass ratio] 10.6 mg/mg Normal [facility] Comment on above: Performed By: #### B MP #### [facility] [address] [place], [place] [id number] Dr. Nam Keenan PREG QUANT HCGon 05-17-2022 HCG QUANT 532 mIU/mL Normal [facility] Comment on above: Performed By: #### L [facility] #### [facility] [address] [place] [address] Dr. Nam Keenan HCG RANGE SEE BELOW Normal [facility] Comment on above: Result Comment: 5-50 0.2-1 WEEK 50-500 1-2 WEEKS 100-5,000 2-3 WEEKS 500-10,000 3-4 WEEKS 1,000-50,000 4-5 WEEKS 10,000-100,000 5-6 WEEKS 15,000-200,000 6-8 WEEKS 10,000-100,000 2-3 MONTHS Performed By: #### L [facility] #### [facility] [address] [place] [address] Dr. Nam Keenan US PREG TVon 05-13-2022 [...] by: ROOSEVELT LOPEZ Date: 2022-05-13 13:02 Normal [facility] PREG QUANT HCGon 04-28-2022 HCG QUANT 139 mIU/mL Normal [facility] Comment on above: Performed By: #### L BCL #### [facility] [address] [place] [address] Dr. Nam Keenan HCG RANGE SEE BELOW Normal [facility] Comment on above: Result Comment: 5-50 0.2-1 WEEK 50-500 1-2 WEEKS 100-5,000 2-3 WEEKS 500-10,000 3-4 WEEKS 1,000-50,000 4-5 WEEKS 10,000-100,000 5-6 WEEKS 15,000-200,000 6-8 WEEKS 10,000-100,000 2-3 MONTHS Performed By: #### L AMYH #### [facility] [address] [place] [address] Dr. Nam Keenan PREG QUANT HCGon 04-26-2022 HCG QUANT 50 mIU/mL Normal [facility] Comment on above: Performed By: #### P REGQNT #### [facility] [address] [place] [address] Dr. Nam Keenan HCG RANGE SEE BELOW Normal [facility] Comment on above: Result Comment: 5-50 0.2-1 WEEK 50-500 1-2 WEEKS 100-5,000 2-3 WEEKS 500-10,000 3-4 WEEKS 1,000-50,000 4-5 WEEKS 10,000-100,000 5-6 WEEKS 15,000-200,000 6-8 WEEKS 10,000-100,000 2-3 MONTHS Performed By: #### P REGQNT #### [facility] [address] [place] [address] Dr. Nam Keenan PROGESTERONEon 04-19-2022 Progesterone 12.6 ng/mL Normal [facility] Comment on above: Result Comment: Foll icular phase 0.1 - 0.9 Luteal phase 1.8 - 23.9 Ovulation phase 0.1 - 12.0 First trimester 11.0 - 44.3 Second trimester 25.4 - 83.3 Third trimester 58.7 - 214.0 Postmenopausal 0.0 - 0.1 Performed By: #### P ROGES #### [facility] [address] [place] [address] Dr. Nam Keenan PROGESTERONEon 04-16-2022 Progesterone 9.5 ng/mL Normal [facility] Comment on above: Result Comment: Foll icular phase 0.1 - 0.9 Luteal phase 1.8 - 23.9 Ovulation phase 0.1 - 12.0 First trimester 11.0 - 44.3 Second trimester 25.4 - 83.3 Third trimester 58.7 - 214.0 Postmenopausal 0.0 - 0.1 Performed By: #### L AMY #### [facility] [address] [place] [address] Dr. Nam Keenan PROGESTERONEon 03-15-2022 Progesterone 6.2 ng/mL Normal [facility] Comment on above: Result Comment: Foll icular phase 0.1 - 0.9 Luteal phase 1.8 - 23.9 Ovulation phase 0.1 - 12.0 First trimester 11.0 - 44.3 Second trimester 25.4 - 83.3 Third trimester 58.7 - 214.0 Postmenopausal 0.0 - 0.1 Performed By: #### L AMY #### [facility] [address] [place] [address] Dr. Nam Keenan PROGESTERONEon 02-15-2022 Progesterone 11.0 ng/mL Normal [facility] Comment on above: Result Comment: Foll icular phase 0.1 - 0.9 Luteal phase 1.8 - 23.9 Ovulation phase 0.1 - 12.0 First trimester 11.0 - 44.3 Second trimester 25.4 - 83.3 Third trimester 58.7 - 214.0 Postmenopausal 0.0 - 0.1 Performed By: #### P KIAN #### [facility] [address] [place] [address] Dr. Nam Keenan Coding Summary.on 03-30-2021 Coding Summary. CD:[id number] G h0bWw+PGhlYWQ+AC2ZBER cI17egHIrlP1TM0oWDF6G YLEIOZMGJE9PXQ6uvKP0A FlzB5MojzUy OfhfsGWvUF75YTz6KGY4k CjnWZzhbD1fvDXnH9m2An KkUT21sU22PEfzOAPeCgD 3LjZpbjsgbWFy L5qzBeXfcMEsByd+PHRhY mxlIHdpZHRoPScxMDAlJy PwrPuoZC7zNk8lIIWyEIR vbGxhcHNlOiBj a8fmVQBdLLftUJ8weOyjR 8MqmNB8FPYbg0m3Wi62uA I+KRKpCKG8xLaiHJhlo34 9HhMte1twHVD6 yYRhOXlnXAF9X00hd8T1U GVcNGCqSSK8hNH9uN2xnE vcwxowU6BmgYWfTrD0YDT 7yOJapN0hoDrn fgwvaA3bBhz+R45SJH1UT SAOUQ6GPod6W5OmWqgugD I+QA47NYFzKO70dYAdaCS pn8ixqTd7CjAm CUBiRIC3wZdmKNuiz9VoU GHpS74axQMjg7B8LRGuvN uxiAOmTtXfyNO5pK2eQNz mntnrx7xvuerp Gzniw2dpyy54eV76G35hG UmiSWNfYPJ4ZSCcPGHpsB xhrh8iaA9gXd2+WLxjb3t kh8ixeDd6AfRp VSGzcqQilGuxMGU1o6IiE v17Z2NmxDwnt2RiOjn8do 15mMYkf5T6vXB9QYjeYUF fqK5sUGwfUjJ7 RTMyKlXbxZ24uGOwSNpiY z5mgWnxrRmjSV1hMERndp ipNWLkkM4xLFWzpSKbwDh oRI8xBINacwjv e974QtLqJLN7TCCciOXuH 6CwnU5qMeHpOGBqHCPzS1 JodQTlTTbrU046FDbiNhK 1INIlwuFeJ9Sg ZVBhbRzfQcH8u5S4Ft7Uo 4DbkwogQFV8XLfzSOGgDx DlQoIbYtG2P6NdIfo2GQS smNsqML8zW1Fv GPRxsceahoigjXS2KMVaQ MYtzK32mKAbSHiuTg8iw1 C1j312WOXbNBHimU92Qs2 udDogMTBwdCBU oC1tdugjb3klwinzDxYaN BQwYTv6JJz7CIKcvQdxMw OdRGR4ZqX1HWH9lGUmtM6 lsOrusmqgmT9s Oyc+Y39rwO0mZYV8GCZ6n eupJOPwpsEkOH70MC09R2 RyPjwvdGFibGU+PGRpdiB cnIcaGY8nFgPk q4iup4YlBRzaM7HhAITeQ DgrPbw0ATEzWAF2qYR1tR 0nJVMyNJzdl2D5jTG2F2F zafLpry8fg7gx VBVsPVzvR31luVPyr0W5S MQohUW7UPYrkIovNpNywB 93Oyc+FGCnxBvqk0KgRla yx2okr4vvhFi7 SdCeIFIwpfOtlKdeJZE6n 8IsUl14E66uONcbVJRdIJ PpCWAwVQGtsIpuad7liN5 wIi8+PGNvbCB3 uCA4xR1kSOEyFsT6RSqxS 360VyFxiFJnGynvx3ikh1 jjoLd8EeAmNEYmmkEjvFy sXVX0k2VhNx98 Y07mVHhyIDYgFNEtKHBeP UItlUynfe1abO9eWb4+PC 6pb1gmjh18jR74bXA+PHR aUXR1dNjaPJik LLLcxU1lIUxqSlZ4OQBzA zNqtY69dUFvBDznWm3fnC isgRivVI6rARVhpvdcm54 8MjXib7lwWMXn oLPlFGuhODN5A34ny5H7N VVhFCCaMEG8pYT1nC6lgN lnbjogbGVmdDsgdmVydGl vDPjqWCwvL138 IHRvcDsnPlBhdGllbnQgT kFiVDk9L0HfYyj0QDXefJ qdOT0knKUaYShlSf6yeDo hoQtzPK0kDPVv owbvr184PeXnq7orZVIeg GPwBFayRYY6X35cv4R4DJ PlZPJnTIT6dXJ4cD2wzMc nbjogbGVmdDsg hmRrhOouFQbrAPmzN248H HRvcDsnPkJpcnRoIERhdG J1RK19UC94oCBqy5G9eNL 4Q8EwMWVrmqto mjntqDV7BTZsCEGyoE24Z b4csMgwDt5dGBCbUYV8VJ GzuYMxE4VsoW2tOjCbRNB dIUAoH0RdgFGw ZLpzF057PZshPnF8OZTmc pCqI0KeHIEcvBefMtH3n4 Y1Vw4XX8R5VG57KH63wYR bu9W7gNB2B2Vb VKKfubvfwkzsxGL7AVMwM NOhkL52Km1ixXqtMz0mRB WyPNS1GLJxsHLyH2ZszA7 yOiAjMDAwMDAw U9SfmOIdMHbpM547ABtmU zN2LSFercAlY2BlXJWdeW ryDdI4d8X5In6WNFm0BC1 9YL60oUIeo1I1 qIT3D3BuBUIhacamixwii TA6NFQsMYIbdC35Cu4lpB coKe6zQYZeNIP2AZUtbIT rL4JrzZ2mQbFf ZQQjGZFzO3VpgOVkRIbkS 629BZqlReW0GDHyhvHjS6 MmGWPxrOotApC6c3J1Pc9 ZMYKaZF70BWY6 cJV8FK16VD52Q7QgLgdsz GFibGU+PHRhYmxlIHdpZH RoPScxMDAlJyBzdHlsZT0 kWb2hNWHjCMTz dFuizCFjMlNyk8vePLRmH DbwRL0etMvbL8ZdiMR2BM Bwz6b2Ap07Z83mU6ZidZB +UDPqfOT6rCV5 cF0eXxHfFaY4GAeiK413N oPbvGHvGqdso5hhg1zpdL y2NnV2RZCqfpTehAkwNQI 3r0OyDb59T93w IHdpZHRoPSIxNSUiIHZhb Frpgr8gfD1vMp5+PGNvbC V9xEQ7vP8aQhFzHlP2YIk jD787PyPyoGGn Megxv1xqp0cmjSr6GtHkS HGiuuMokScvQHQ1e7ZcVe 74V7StpKdjg9KiGjx7bj6 9uITpp4C8vKO1 Y2HiFQDzouivdNWgnMmiI R4fYZJouykqFODtyT3uEC FtS8u5AxDmGbQ1EQtjX4M irbW0VPPapXDm ZWmlZZZ7C00sk8O2NPCfU AGcPWI3lIO1vF0hjOmmnr ogbGVmdDsgdmVydGljYWw aVMnzF349KDKe cEglQZSrxA1hOLQjrXFun KigXA4tQAPkrstwIa3NJP xNFsgdXyHOR2yGAFMDII4 4BZ76oBJtu4E0 fZO3L5GjIYQnwzfvcnfws HW3NNNmILVaoE81qFDvCQ olDb7lb4Z4w049MNGlUNB ewG53Nu8uxXqi QKFnkPUDcS8tyhtkd1wwi wslLuHtPVAtZQk4WWi7GL CxxGwbDyPoNZU9BgV3QQT 2lCGjyF1xmRtz iwsfvA6sAgz+MDgvMjEvM Gs4ZFvpmDF+XMDrPOG3xL seZIfrZZJseN5kZVHmY0h 7LeKsUsW2TNeu K9HvEHGfedqoAt25cU9dS rVkBhP3HOgoF7YluiM7NM VqbRGaYUmaGFR7N46xr8M 9ZDQyKQOtTOX6 wRT3fE7ijRwcwahaoJKmx DsgdmVydGljYWwtYWxpZ2 46IHRvcDsnPjMyIFllYXJ tAI35YY92hIRf j0R8sFM6Y5DgWOEkuwmzp iqnzGQ9ILInQDCxcD22jD HcYHsoPn4of4T0n637AZD sIXQhtL67Wk6e uTonWYPwmEGEtX6hajnke 1gpycomScHwSJPxHNn3DM q1OURzbWkeAjYxEQP7GkF 1LLM9zNZvvM0a aGfxmlideE9oZmf+RmVtY EiiQV65AL49fVXku5T2lQ K5K9BhXWSucxiilmpgpGQ 8TSPsOJIarU69 wOPdNFqkTa6sf0S0z675C UJrTNJsqI86Ik8oiUmlTJ CngPEKzW7ualrqb5qcnnf gIzAwMDAwMDt0 SUq7SFAqxOxfAnSkAMT3P wO4GET2cAAxmE6lwXkgwp mplZ1yHem+M3P3uPM6jUQ udDwvdGQ+PC90 og69R2VeLjnpVff0XLGgQ OJ0cGS6wT6qUCFjMNnck9 S6xWD1M1GibuEflq2mf0z oZZKzODqgS80a aYOfj8N5BUGfoVO3WETlg YssXyTzrM13Chf+PGNvbG hdd0UrNgusd2rol4wlcNp 9IjMwJSIgdmFs nJaxXKP6v0TjYw31W15wB HdpZHRoPSIzMCUiIHZhbG yyew3lnO7zIb2+PGNvbCB 6jJZ9nV0nLlUh KcM9KDhhA665WpIwmRInZ dysy0ktz6griUo8QnQiDT SejgSjzXudQFO2z0OjSh1 3X6KqyOkdo5Bq Urp2bv77qCDwk8Q4fCS6M 3BhZGRpbmctbGVmdDogMC 3tGEBsbcghYNEmpW9eOZA mM4q6WmRlAkH6 JKaaE4OtphN9QQVozZShI NJetLJTvW2eyqmka9inbl koJqQxCJZgOSz0MGi4HOO saWduOiBsZWZ0 GkQ4CGU2yBJpbK2huVdre btogD9uBzh+UKm0x3gdpH JtEE0nfXA0XX76ZC18pWO vz8Y8qWK9K7Rg LBVlktuzaemudYU0TRAvC NAqrD67Lg9aeJanZb9eQI HxZXE1VFNcrEDgF9JoqI7 yOiAjMDAwMDAw G3HszQTnRAhhK168ONtmD dQ2VZMluyVrR3CrPGAxkI vwWmW3a1M0Fk6DTS93DL1 3ZM87bJUwp6O0 uFG8E6MeEJWamubniiecf GS6KMExRXSluB66Ac4uwQ qlHh5pTVHxXRG7SLMrdIE dG2HivF1nIxRx FCRoZYIyM6LzvJBrDMubP 540HVccEdC7JVXoojSlD8 XuBGAbhVwxOwO5q9I9Ds4 YJy77ED18TS26 wPIrp8W9fRC8R2GeYXAll efbdynnfXH8IGZoHKNwgD 09Ej9oaJtkXc9rNNPcRQL 7IPAzdSVpT0Wn eL6gCaTwATQzKABqN1Any MFeNBqnL691BEtwTdY1HQ JonvSgP4LiRZQgeWxeJjG 6e4L2Qy2ZLYer scy2T3AeIrqhiDT+PC90Y MYcLL36mSIzhTBac1quhT y8OxHtJITxSMF2oGmgDTt gv6UsCUKcO15x bGFw (more content not included)... Normal [facility] Coding Summary.on 03-18-2021 Coding Summary. CD:[id number] G h0bWw+PGhlYWQ+QP3WBKU oJ67pkVFkdE9FF4nRHA3P MSRHRXMWRP5WVT2coQL2B HwbK4VubtCv SyszbJXxAL41ITn9DPK6b KkzLWbxtR7njBAfA8h3On QlCO73yO97CRrlGSSlTmD 3LjZpbjsgbWFy S3geRoQowWAxGdy+PHRhY mxlIHdpZHRoPScxMDAlJy XotZmsNS2mEo9sSAHyVHS vbGxhcHNlOiBj l9tnPEYnREbeAN5igTvyZ 3DyqZY2CHWeg0c0Pq20kP I+KXDaJUM5nKppDPcaj82 2IvNor5vfKIG1 bMMuURkbBJZ2H93mn3G4V BWhQQDlZVW3pPW2xK5nuL lrjnupD5GdmYRdNdL4OCO 7tXLreZ6vbJba rjzupG2pBjk+M17HWK3HC FPZQK2UWva0I1WzFwvkvE I+ZQ53RKWnMM42zTUliPP pw4ravVd4QnNy YMGcGTP3iZjlGImly1LqY GGuT37ldUJju7X0QFFnvY girDGfGeSjkBG2nL1xHQh umzico6uhdcel Lzxtd7smut33sG30A43vO XstCCZdZLG5VCHnQCDccC kqkq1euW8cSy1+WIvze1y kk7qkwMr9YyEk RAQvjfGylPdjPSO1f9GyN x24E9ShqNsow6VpGof5au 27bSDif2D4jRX6ODerLFB jcF8oTNwbNzV3 KTNyKlIzvE59hXPxKQjtH z9jpEpqiHdyJO2eEOAwmk mmAONafN0cJPWeiFZjfHy gWQ3yFDGuvlsm a849VnMgBOR7UQPfsVTcZ 9CwbI1xCfUiOJXiAXPuC8 BulKLmRJwsW265UDiiGzY 8BJDifyMyR1Ev HEMcaNyvKrZ3v5U4Tf0Oc 7CkoxycODB0GNyhFGFcCa Y7CaGxAyM8C8IrOhv0IND kdBddCT8aC5Kf TGAnfbpbqeeguUS2YOEeZ LXuiF00bMGbMNlnOp3fo9 Y7u604XJXvNPJtxW12Qb6 udDogMTBwdCBU iZ1zvvaxw5lvyafqAaYjR UAdDPl0FWf1WXHtbMibVp YtQDF7LnH4DWF1cNVmsY3 nvVisrpxsxJ3t Oyc+G78ywI4eVGS4QCP7c rdjRVJggdDcYW95CN71O2 RyPjwvdGFibGU+PGRpdiB ngNdoYG8qCvFb y5ley2FzUXvbO2DaTYFvP ZhqCin7IOOpZOI0oUF2uK 7uEVStVQogv7P5nAW6W6P hasNosp3af0yq MYLwWYntN53cuNCpw7E5O QHwfQN5DNEsnKvjYiZsaU 93Oyc+RSDykEupm3OcHot fc1wwn7vsiSt0 HlVjFLSfsqJgjDeoMXU7t 9GuSj24X94jADlfJPJjXX CeXFFwNKFxoIvbgb2fnR0 wIi8+PGNvbCB3 uOW5dF0qKBTgVmB0NUouH 934LjTfwUFpMuzyp6zje4 bkoTo8FlGuXJElciUznEu oIWE8j1TmRg73 M78nEJciSAPxISEcUUUxM PGfhTkyit8kiI9wNk2+PC 2uh2hwuv61eU45tMN+PHR xHCT5lPxrPAro MAYanC1vFLeqYwG9XGXcU fWpoS04uHMfFVfnZp9tkI upiEuyIM9fEAVjemwyd08 7IzYde7dmDDRi sLKrPXyqRDC4E54lv7X4I ZAoMDRzOMM7oKS4xW9syB lnbjogbGVmdDsgdmVydGl sRTcsRRnnA117 IHRvcDsnPlBhdGllbnQgT hYbQCw1H3DqJmi0KIOwmB ayDT9neRKuRIhjEe1nfCp ppJbtQA0lAOWx dvqog042GmIaf1qeLETwa PTkYXtsIAX6I58ky9G1ZW NqMHDuALY3qLP7cL7qyKc nbjogbGVmdDsg wgLkhAloPXnwUMbcQ115L HRvcDsnPkJpcnRoIERhdG G0RO56WO50xCKls1Y8dYH 7N8UlTPNnfeox bxcbkTA6FPSrIFBagN25Y q7dlQvzXx3cOCZaGIR4GP PjaECfL7PfwU2nSzGwTFQ rWKJpR7UeeWFw TBeaL348PNycSeH8PQBho xPrO6ImKFVzyWkhJhV9y1 A3Et4KI3I4EB73HZ51kLL kn3N8jWG4D0Mc CDVgydbwwkvzyQW9HYZdL WUstU42Tu3qkJfcIo0nAV SxGVT9OJOolJNxH3FmqH3 yOiAjMDAwMDAw R9PtvPVvOLrqH183YDauU mY7PVAzndBwU1TxWRWiiG pfDsD3v0O5Ct7RIGs6JB9 1QY98jBXti2K9 gNP0J9ReNFEifwzwkwbwd JR6OVBoWDYpyT45We2aoP baAi1fOKDqTEI8XXQvfAB vZ4XgbK5fSvSy UFPmSEMkC4AhoLViDBieH 202VKeuBqJ3RJPpfuXmB9 XvKLResWcwUbS7h3G1Ix5 MLQBeJG15KYT0 oPV0XM50OH13D3RhKvlui GFibGU+PHRhYmxlIHdpZH RoPScxMDAlJyBzdHlsZT0 tKk3jIUWyYNLl hRrejEGcQmGue2whRCHcT LyxBL6voSyuF8RvvAW2JP Egw5u8Ou83I07gG1FghVF +MLKnfGD1lYN5 gN1kThKeOyH8JKhaM833S tKgzPRmUwcda3kvx4halN p9GuN6TOLcenMrxEkiVMS 7j0QrDj96W30z IHdpZHRoPSIxNSUiIHZhb Vckds8koI5aUl2+PGNvbC R4jLP7jX2sElHhPsB2RHs oR571EmDrwBQy Zhzub7hlm4kyhDa3BcVdD ILjbwXyuRgvAEX0b3GgRa 17N0PuxClyn2ClFph2gl7 8lZFlh8V5cMY7 F4AyOLTtsfdztCExcJirW N7iXPNhqjsaRNObnQ1dNH VoP6d8YyIyElJ4XQheO4Y eivU8FGZcsISt SGjeVUD4B08gm5M8QMDsH AVsFAB2xUO6aU7eyMqlvu ogbGVmdDsgdmVydGljYWw iHQxhL891OHMy qPafLXYqlX7eIQQjiWWnx WbfJG9xDKGuuldjXv0CLF jSEnreYbZUO1gFXXLIZL1 9NW24dNTjj2M4 qPC9K9PqWSAhwecqbhbrx NX3MOVdVEWmlJ65aXYcBX syCg8rf7J8v948UAPaOEQ tkQ20Yc1zyKpt CUZrwLUSwX9fmhuqd0rrh qmxZdZsKOGcVNk9GYo1KS NtxFvfUfSkZOU3GsE2PEE 0dSGkuF2aaIfz umgciM6wJcn+MDgvMjEvM Ch0IAizhCA+RKJhOYN4dI mxZSceKOQmnC8dNXLpJ9u 8ExPtOnX6SRbl Y0DeDXKosrmtAm34aO5jL bWeYhB0KOoxN4HulbL2CC AcjLOkDXetAZQ2L06wk4S 9MWEzSZIjMER9 cAB0lI0btVhhzqbdiCDfr DsgdmVydGljYWwtYWxpZ2 46IHRvcDsnPjMyIFllYXJ qSP64IH62kDZh m8S1uAN2S9AaSUEhmepke tchzGC5ACLwWWKctY30hO TeQVlvUc4vx5Y5q501NZJ dLJLmeL31Uv7l kVywSHAdrOVRzM9owlcfi 2iakkdsLkDwZZFtAKy4EI h9YPYqsZuyEbXvKLJ2BbM 6FQN0tJWfcA6q dKpjcxbxqD2uFfy+RmVtY NblNC11NE95yOJsp5Z9jU D9Z3JtMOJuljkqosibpFU 5HBZqSCInkK68 yWFzWNrhUw1kn9F3y241R SBvKBPqpG23Gw4aeFquZQ DlkWCVpW2xihcze1mokwl gIzAwMDAwMDt0 SIl8XIGqwWoyKqSlVYI5G fS8FKR7bIBzkX7xyYotoi bolJ4uDet+UD7nhdpcciX 5LL02PT22I4Kc PjwvdGFibGU+PHRhYmxlI HdpZHRoPScxMDAlJyBzdH duJQ1kXh8nXGKhTZGreQi qkJZeGhZwg7mb ZFPoBKgsYE4cfTqnQ1Yzy HU7QZAuu2f8Cr91U44mL9 JvdXA+NBZnnDO7mSC8iZ7 sPyGdIyR9ZDks Q523AeIfaYWzVyyum1tol 7rzhPm6CjQgDVYwowXuaJ pyYLZ1r5JpZa49E74sRDh pZHRoPSIyMCUi HFWfhQcmib4ymT3lQt8+P RKwbQD5jID3rL3lFrYuZh V4VTlvC948WuWagFVdXgi sV91rI5IxrTH+ VFNqFax1EFZpaBfzLA9kc AWnPTpyEx7nIUA0OnXrRy OqCGqtU2TwCTFntjujlpd xnSV7XTTyACJz oM70Ej0vdMmfGk9lPUOlY UE2BEYueFUxV6ZwwE5xJk EjTJBuPUZkS0ZbkFMgEDm xL413NSgkTvU6 DDKkcjCvK2TjKCAayLirC aL1z1B1Zh1VfJobrGLlGM 9oOmZdOIp3E1TzGzx9IIV rbBpkBZ2ocMWc OGffUg1ofDiosJkxBV5zM JPihczaf284QmVrf0ooWR CjhYMmGQmjWMC6C28ec9Q 6JJQkIUHrPFT6 yJF1cN4ijOhwnzyiyPVej DsgdmVydGljYWwtYWxpZ2 30YQXjbXapCtRRXxd5S3J uLef1NXCdiPhx DB0uaKGuVKfxKl3oyKret KhyUM4xZXLkzxvrw080Bq Zmz1ysCDEytIHqKKhgIGW 5Q81ih1G8ZWRa UDKoTFZ4vTQ5lW9cbAqbq jogbGVmdDsgdmVydGljYW grXMftB435JLOrzUvvMq2 CMwy1T9KkAup0 DXQkkBfuAP7dcANjUXxvX t3loOkemQcaKA6xXTJutd qbx220EeDww2dbJHQpoPA wKPadYNE2Y50j d3H2WMEnRJYoMGB6bNO1k Z6lwVevcarnxJWrbLbxal MpaEcsQBjmJHhoM128OBZ vcDsnPlBheWVy OjwvdGQ+KK49ul90R4FmB sxbTeg5TAYtNDY1eSR6gS 8oRVPvEOygw8U1lHV9B7V zfzXpqa5bf6jb YXBz (more content not included)... [facility] Coding Summary. CD:[id number]:5779855O G h0bWw+PGhlYWQ+RA3NAWZ dN03ehSUsiZ8MW4jPXC7V LXLPCKOVWD2DQB8ohJI0H WqfL8HxkkBu HsrwoUNhKJ63UWg3QBI0k KvuAYraxZ8gdWKeA8j2Ql OwXR15yE35HTniQLPmRiE 3LjZpbjsgbWFy H7lqQlNchAPfDap+PHRhY mxlIHdpZHRoPScxMDAlJy XbaGqqLE3iOf2qVHAtCAI vbGxhcHNlOiBj h5scCAIzPQosUX3ccZmhD 2HjcSC0CFCvf2b0Wr36rV I+NFIwTQF7pAxcUJvfy12 7VoRar2xjPVD5 tKGzTYlzDPM5U80hm1Y3F UVzBYQqCPB2uDD5kM2apN ctwwzxH6HyiUOgUdN6DQE 3pNJzbQ1dvNct fkchzP0xMep+U60WQU5FC PLPWE7SKwr3D3CwZzgxbC I+KY64SRXfWF67oYHwoON dd3hbxOq8AlLd JLFrNGI1aPmfEWmds0DkF RVvB82tmJLwi2I4TUVizG gdkBYcPsJjgTR3qD5tRIg spbbtq1avxccc Jczff3bdpz29mQ64C47nZ NmmGKXcJAA7HYCsREXgrU joaz2pjN2tZi3+MPnod3s on2ardUw4LiBt AWFkywLaqAbhOUI2m8CeM o34A9OzeHeov5FsQex6de 33jNZwz2B7jDF7CRwwOAX djX5nPWsbMcQ0 XEEdWcIolH12xWShTObiN a5fiXjxlIepXB7mWNDiru qtVXLwvZ4hDWMcdDCnzJv zTU4sNCYnyzkd b669LkJxQSN5ILEqyXDgP 7PzeO8qCbOnLQCxCLNdZ9 IjvXBtXKqiE042EHybOfP 4OKBjveXkN9Yg GSOadHbmGyK3d5N7By6Sp 5PjmyhiKJN7YKhgAZCeUh F3NcNyLwT9A0RcBwp2ALL iaJprIF6jZ5Dl OMTwwqlvkqflxCZ2OTUkF NWmoJ25eILeWFwnJb1or4 I7d634WBLkPTEmeM47Uh0 udDogMTBwdCBU kG6dfvkch1oifbikExCxA ZCvEFh5DHi1EAJepRxuMd TeTMP7XsH6HDU4kPVylO0 nmGfzsdcmdK8y Oyc+H16yvU6hUNQ7DJI3q exwKIIxftIoUD05BT28V6 RyPjwvdGFibGU+PGRpdiB omPvcSO4jLfSp r6gqu3NwKUbhP2SdOTEyM LcdTrs2SMUeZWH7zTV6wT 5uSTDcWRmod1F9gVT9S7Q vuaOsch3kp4lz CQDmGYvsZ16yoTXmq8S9Z OWplOJ3VVUnnNnsKqUevU 93Oyc+ARCaeSevq2YjTpo ku6uba2difYh0 YuYrCYGtblSxiSpwWIO4c 0SyNo40O25jUWswHPNePZ DwTRGxJTFgnYtnkd9yvD7 wIi8+PGNvbCB3 nUZ5sL0aEIMxJrH4DKreB 963SeVqjQNtEtznc2ekd6 fedEd8XjRxCWEoogLwnIv rACM3t9NfBf37 N64eVLsuOKVtBCKdJCQkG DDnpHqtrm1mhD0sRc3+PC 4rd9pfwa32xA79rHZ+PHR lPKM6vTynXZov LYYxeK4yQYmqWwP0USSwB aKqeQ27tQWnRMoyTb1ctL ubmVuiSI8yDLNmrzjiz15 0FuKic2iuVSOm yIXzKNwdISO2S26ue0O0X EVjBHLfSZC1bUJ0oN5deS lnbjogbGVmdDsgdmVydGl dTGecUMxxB469 IHRvcDsnPlBhdGllbnQgT wFzJFb0V8SuCfy6QXOqgK jvTY3esIJoLGgjTo1hiEo kpFyrDK1nMWYg nkrnx004MlIyl7roEYFdt OOxWAocXCK9O57kf9T7SR DiKFOpUIN5lNS6iG8qgSl nbjogbGVmdDsg boBweJphFTvsLWbrS370T HRvcDsnPkJpcnRoIERhdG H6RX47BA38kKYux4E7kQU 4Y4DwCACzcsfh xpgqyDA9MJTcBVXvwK05Z y8wpZizNb3sOWIuBNP2XD LtjHDpK5VhlB0uXsVfLQU vJCPmD4GppEUq XClqF757CZtkYoC3RQZix dEqO7AoAJEbqJiaRzA7u2 F0To0IU7D6CU64DX96kIL ly3F4nNT7A4Kh OZLxtwuluelwpSY8BSMwZ XJdhT75He1fkLhiBo5kNR BiHGZ5BWCuaHPvM3CspO4 yOiAjMDAwMDAw K0RzpPEkQJbpQ665WNwoO rV4UXKlfgHpY0CoIFFzwA weEhD8w9A9Us5OYRh6OV4 9WM21aPUzt3S9 yAQ6I2ZtGKOpfasqlzrzt TN3YDOrTGAjrO06Hv7jtO rbVx4uLIPnXNJ0DRDpfFJ eF7MijO5nAkGf ZIKoGPQoA9RylCFyWKenF 835SVnnOlS6RSQeouPrH6 InREVlyYdjZbF7z5I9Hk1 KXREcYF85UUG2 sUG8DA11XA44A4LjOmskn GFibGU+PHRhYmxlIHdpZH RoPScxMDAlJyBzdHlsZT0 lCm5zDWSbQLJf bZqkzLTcQkWtt1rwCRKzW XkzAV7toWsyP2MxjTR1VZ Yat8a5Zx14W01kE9YrkML +VZXltVM4wSM2 sC4lNkAdToR6ZJzeH703H yEmtTHwRifcx8cnq1vjfL w0YaL9WZKyrlZphFizPAB 6u6KcQs37F13j IHdpZHRoPSIxNSUiIHZhb Ceomk7trF5kAa1+PGNvbC W6iYV9kJ4oXwAzUtC7NMd dB768XgKuoOVm Snwoe2mql5zwzUr1VbHfJ MLdwfHpaJiaDDL7f5CfUb 35A5YhaWltc9AbKmi5nn6 4kMDmp3N8oCS4 O8VfNHCfbrefkXNvsVqzX W4pRRXaruflSZAsxP4fZN HlB4e6OqTtCkI9OZyrP2N hieS8UIXxgBBg TToaZXP8C51zg7L0KVSpH QRdGCX4pHI1fY2lbNaxhw ogbGVmdDsgdmVydGljYWw eNYdyI259QLKi xEwjHVYgbR0gJPHwqSBay QztYR0aYZJdhrbsSq1ZHA rFXdpmWzBHQ2lCVOQMHS7 7ET86nQCpq7Y8 qJV1P0ClLNCnsljnclbgc TU1CSNuQPIgeJ79bWRjOO ymFa9wx6P1g010VKWlICV mlZ63Uo7hePvj MUErnIOOjH8gmpkky9lfj fotAxSiWMVbQNm9XAi9PK UrfIzxMaDwXRL3FlJ4IOK 8dNVxoM9pxMqs wisxlD2xAdb+MDgvMjEvM Fq6OHmwfNM+TZTrQUA0nO wgKNmcFITieH7rDHAmI7l 1FmGjNiV4OGoq X1JlHCDxxcszGj59yK7pA gAzFiX6AQcuT6VdbbW3WK ZevAXdZCdqHJZ4K53ni0K 4FGDeAQWjYVI6 eBK7rL5miUfomdfrkOWqf DsgdmVydGljYWwtYWxpZ2 46IHRvcDsnPjMyIFllYXJ rJC56YP44zDMg c7K1sNU6Z6WlUONfusztk vucyVR9JJGqVDHoiB59uV HsHLveGl7sm4H4w882VAK wPAAhyV39Qq6w gZnhFMQzoMQAtX5qklzuf 6orpgofCzSrQQHyAWe5QY d6LUApiDoxFaThAPZ3AtK 8GOE5yYGdgG8v dXpwqoaqgM0uPrg+RmVtY IgiVY32DT13mETqc8P6hK N3W2RmAQZacghzdmplgIS 0RRBmDKOqgA72 iZCcMUonTm8hz3V8r371K PUfDMLruD86Bf2ktGntAA KcoXDWgJ3ngbtup6wfriw gIzAwMDAwMDt0 OVs5DKMmjLmtQlPnVCM8V mR6YRO4pIAtqJ8whWdwef twoF5lIlm+BC0wtsakljR 8MS98EN36Y2Tg PjwvdGFibGU+PHRhYmxlI HdpZHRoPScxMDAlJyBzdH scDC9uGx9nSQGqOMOjjWc tgLEqWvDrn9jz FQCnSMdnXT9xsSqdL6Fuk OW5DTTwb7r3Pq94T70vC8 JvdXA+XWGxaVN7yQE7eE3 xQdPzDzK0SLxl L463XdEbiHLiXpevw5ehp 7tjeRh5KbRtEJBxcaSafP jmXIU0m4AtPw25P92xZNm pZHRoPSIyMCUi ZYMesSpoeu7ynC1jNb3+P OJjuPO9sMF6nW9iRuZxOy K7RVmcC649QzNzrZJsEqq sQ76jG5UohNJ+ ALXbOvn6GMHllFdjDO1ah LQiWYjzRb9lJEN3UsDbEp CgJRwoZ7BtKBUisvhsiea fsLC6RXSlJWTg nA64Vm5zzRuoXi7mSKKdJ RG9QXYzwHHfH2CpeV2qGw AxZKOvUNWtY2EkpACeZWv fT689IPaxMpX6 IRTnmrRiU2BdERMrhWdrB kQ1f5Y7Uw1XvRaflAEeFO 0bOyJvPAs8D7LgWad3DZX klCcyGG2mxOAy REasHm0mvPaqcQwiVK1tL DTxppltp584TpHsa4bqFN LcgUVvTSrwGAO1R56kp1P 8VRSvABZeQNV8 jPN7qG2ltZnexzrzpCCjt DsgdmVydGljYWwtYWxpZ2 41AVByrFdqFiXJUli8C2D iVxc6SGWpqPwf MW8atPZvXDtbZb0trMrjn YovDD7iMGCywtlmh841Yn Vmx4omHOMyuBGrSFboDOX 4C80ae6D8WUIm WBYhKMQ1yFT5gH9rmKczf jogbGVmdDsgdmVydGljYW pyLVakU962RQPvdOlcHy6 HVpp5I6ZwPpj4 XHOkdAksLX4osEFhMIzsI e8huHbcmNavZL9gQFMcae kla072AjEam1kfZQUblJG nXLmyPDU9H34o z4M3YVSlDALpREQ3tVD9r M2sgMalisannXMasStyfb KmeNnaERuyLHuyL178NJY vcDsnPlBheWVy OjwvdGQ+DM00te05H0OuB bgzNxh9FZTlVTL2mJI2eD 2kJRShGEkfn6O5yOG0Y1B egnYben9dt5mz YXBz (more content not included)... Normal [facility] Auto Diffon 03-12-2021 Basophils/100 WBC (Bld) 0.2 % Normal 0.0-2.0 [facility] Comment on above: Order Comment: Order Added by Discern Expert. Performed By: #### 2 953499, 3075875, 5562098, 6616457, 95979267, 78379127, 39245576 ####[facility] [address] [place] [address] Basophils/Leukocyte s Auto (Bld) [Pure # fraction] 0.0 E9/L Normal 0.0-0.2 [facility] Comment on above: Order Comment: Order Added by Discern Expert. Performed By: #### 2 166770, 0813415, 9799047, 1211142, 89447996, 83576052, 67893178 ####[facility] [address] [place] [address] Eosinophils/100 WBC (Bld) 0.0 % Normal 0.0-8.0 [facility] Comment on above: Order Comment: Order Added by Discern Expert. Performed By: #### 2 312361, 0561919, 8505108, 4501780, 78561617, 84729626, 46539544 ####[facility] [address] [place] [address] Eosinophils/Leukocy jacinta Auto (Bld) [Pure # fraction] 0.0 E9/L Normal 0.0-0.5 [facility] Comment on above: Order Comment: Order Added by Fiona Expert. Performed By: #### 2 985519, 6077099, 7099711, 8055087, 97373784, 30617580, 39072672 ####[facility] [address] [place] [address] Lymphocytes/100 WBC (Bld) 19.4 % Normal 14.0-50.0 [facility] Comment on above: Order Comment: Order Added by Discern Expert. Performed By: #### 2 050277, 2799132, 0824502, 2901139, 84209833, 12708679, 85705457 ####[place] [place] [address] Lymphocytes/Leukocy jacinta Auto (Bld) [Pure # fraction] 1.0 E9/L Normal 1.0-4.0 [facility] Comment on above: Order Comment: Order Added by Fiona Expert. Performed By: #### 2 072256, 5820036, 1316029, 8711761, 31055504, 10946972, 90510073 ####[address] [place] [address] Monocytes/100 WBC (Bld) 6.9 % Normal 4.0-14.0 [facility] Comment on above: Order Comment: Order Added by Fiona Expert. Performed By: #### 2 709374, 5958389, 3613355, 6585131, 26827809, 93641327, 49365521 ####[address] [place] [address] Monocytes/Leukocyte s Auto (Bld) [Pure # fraction] 0.3 E9/L Normal 0.2-1.0 [facility] Comment on above: Order Comment: Order Added by Fiona Expert. Performed By: #### 2 151937, 9098803, 8907248, 6797201, 81972940, 19240752, 41471511 ####[address] [place] [address] Neutrophils/100 WBC (Bld) 73.5 % Normal 36.0-75.0 [facility] Comment on above: Order Comment: Order Added by Discern Expert. Performed By: #### 2 979075, 8868211, 1437307, 6411542, 30034836, 88872356, 39270655 ####[facility] [address] [place] [address] Neutrophils/Leukocy jacinta Auto (Bld) [Pure # fraction] 3.6 E9/L Normal 2.0-7.5 [facility] Comment on above: Order Comment: Order Added by Discern Expert. Performed By: #### 2 936226, 2160356, 6953619, 2050801, 63673610, 37451446, 50895658 ####[facility] [address] [place] [address] BMPon 03-12-2021 Creatinine [Mass/Vol] 0.8 mg/dL Normal 0.5-1.3 [facility] Comment on above: Performed By: #### 2 592749, 8970257, 2439782, 6840037, 02336018, 50385015, 99220499 ####[facility] [address] [place] [address] Urea nitrogen [Mass/Vol] 8 mg/dL Normal 5-21 [facility] Comment on above: Performed By: #### 2 365132, 6414740, 5457128, 3977915, 42144146, 87634062, 26685203 ####[facility] [address] [place] [address] Urea nitrogen/Creatinine [Mass ratio] 10 No Units Normal 10-20 [facility] Comment on above: Performed By: #### 2 284520, 2056534, 8354564, 7444117, 39889084, 59498611, 87674998 ####[facility] [address] [place] [address] Anion gap [Moles/Vol] 16 mmol/L Normal 6-16 [facility] Comment on above: Performed By: #### 2 999023, 1700595, 0530581, 2887010, 14953196, 71114938, 55868070 ####[facility] [address] [place] [address] Calcium [Mass/Vol] 8.3 mg/dL Low 8.9-11.1 [facility] Comment on above: Performed By: #### 2 774429, 7733539, 9773229, 2284787, 64566887, 24714656, 34556044 ####[facility] [address] [place] [address] Chloride [Moles/Vol] 99 mmol/L Low 101-111 [facility] Comment on above: Performed By: #### 2 660677, 2251620, 1075195, 9411873, 24623206, 41242835, 59800381 ####[facility] [address] [place] [address] CO2 [Moles/Vol] 21 mmol/L Normal 21-31 [facility] Comment on above: Performed By: #### 2 001742, 0436661, 2798154, 5840646, 09093844, 28620733, 76716837 ####[facility] [address] [place] [address] Glucose [Mass/Vol] 127 mg/dL Normal 55-199 [facility] Comment on above: Result Comment: If t his glucose result represents a fasting glucose, interpretation should refer to the following reference range: 55-99 mg/dL Performed By: #### 2 196111, 2666554, 9816955, 1968992, 27339074, 83594647, 50619346 ####[facility] [address] [place] [address] Potassium [Moles/Vol] 3.5 mmol/L Normal 3.5-5.3 [facility] Comment on above: Performed By: #### 2 404050, 6432950, 5010763, 6632643, 10492960, 54956705, 85467872 ####[facility] [address] [place] [address] Sodium [Moles/Vol] 132 mmol/L Low 135-145 [facility] Comment on above: Performed By: #### 2 720012, 0037935, 4998066, 3017210, 07407381, 53012031, 30598620 ####[facility] [address] [place] [address] CBC w/ Auto Diffon Erythrocyte distribution width (RBC) [Ratio] 14.2 % Normal 10.9-14.2 [facility] Comment on above: Performed By: #### 2 829554, 9796183, 5102108, 4045378, 31628789, 58632907, 75362650 ####[address] [address] Hematocrit (Bld) [Volume fraction] 39.9 % Normal 34.0-46.0 [facility] Comment on above: Performed By: #### 2 464506, 2295502, 5621814, 7032708, 28293008, 93210854, 35263344 ####[facility] [address] [place] [address] Hemoglobin (Bld) [Mass/Vol] 13.0 g/dL Normal 12.0-16.0 [facility] Comment on above: Performed By: #### 2 663603, 7580896, 3024381, 5821967, 97420177, 32244386, 26883067 ####[facility] [address] [place] [address] MCH (RBC) [Entitic mass] 27.3 pg Normal 27.0-34.0 [facility] Comment on above: Performed By: #### 2 488428, 2424152, 3196897, 8710082, 64883391, 61816372, 50755716 ####[address] [address] MCHC (RBC) [Mass/Vol] 32.7 g/dL Normal 31.4-36.0 [facility] Comment on above: Performed By: #### 2 961110, 0736647, 6794376, 9308461, 63497754, 51398705, 91678221 ####[address] [place] [address] MCV (RBC) [Entitic vol] 83.4 fL Normal 80.0-100.0 [facility] Comment on above: Performed By: #### 2 982808, 1262137, 5027823, 6391619, 74936652, 25463838, 07147741 ####[address] [place] [address] Platelet mean volume (Bld) [Entitic vol] 7.8 fL Normal 6.4-10.8 [facility] Comment on above: Performed By: #### 2 982105, 6286044, 6767414, 5425546, 28983163, 15102289, 99354031 ####[address] [address] Platelets (Bld) [#/Vol] 188.0 E9/L Normal 150.0-500.0 [facility] Comment on above: Performed By: #### 2 736286, 1168972, 1531202, 9052671, 10866052, 40032224, 80685896 ####[address] [address] RBC (Bld) [#/Vol] 4.8 E12/L Normal 4.3-5.9 [facility] Comment on above: Performed By: #### 2 317085, 9182216, 0411931, 6498589, 69914671, 07942265, 92141310 ####[address] [address] WBC corrected for nucl RBC Auto (Bld) [#/Vol] 4.9 E9/L Normal 4.0-11.0 [facility] Comment on above: Performed By: #### 2 786206, 0796660, 9236373, 0336763, 54570379, 69612615, 57932160 ####[facility] [address] [place] [address] CTA Cheston 03-12-2021 CTA Chest Exam Date/Time: [...] 370 Contrast amount in ml's: 79 Normal [facility] Consent for Treatmenton Consent for Treatment [id number]#1 .00CD:127 Normal [facility] D-Dimeron 03-12-2021 Fibrin D-dimer FEU (PPP) [Mass/Vol] 586 CD:[id number] Abnormal 215-500 [facility] Comment on above: Result Comment: Resu lts Verified By Repeat Analysis Results Called To ASHA ADAMS/CONOR By QUETA And Read Back For [...] infections Liver cirrhosis Performed By: #### 2 396949, 9498957, 1649180, 7151978, 75465191, 30934386, 04800967 ####[facility] [address] [place] [address] Discharge Instructionson Discharge Instructions [id number]# 1.00CD:127 Normal [facility] ED Clinical Summaryon 2020 ED Clinical Summary [place] [id number] ED Clinical Summary Person Information Name: BEULAH MURPHY Judy/[facility] Age: 30 Years : 1990 Sex: Female Language: Swedish PCP: Tricia Dewey CNP Marital Status: Phone: [phone] MRN: Visit Id: Visit Reason: Fever; Diarrhea; [...] 03/12/2021 12:55:56 03/12/2021 12:55:56 03/12/2021 12:55:56 ADDRESS: [address] [place] [phone] PHYS DOC NOTES: MEDICAL INFORMATION: Prescriptions Given: New Medications [facility] [place], [place] [id number], [phone] albuterol (albuterol CFC free 90 mcg/inh Inh [...] Follow up: With: Address: When: Tricia Dewey [address] [place] [address], [facility], [address] [place] [phone] Business (1) In 3 days DIAGNOSIS: COVID-19; Near syncope Normal [facility] ED Note-Physicianon 03-12-20 ED Note-Physician Basic Information Time Seen: Carlos Tal 03/12/2021 09:01 Chief Complaint Pt states [...] puff(s), Inhalation, QID, 8 gram, Refill(s) 0, [facility], 173, cm, 03/12/21 9:08:00 EST, Height/Length Dosing, 125, kg, 03/12/21 9:08:00 EST, Weight Dosing azithromycin, 250 mg, Oral, As Directed, Take two tabs by mouth on day one, then one tab daily, # 6 tab(s), Refills(s) 0, Pharmacy: [facility], 173, cm, 03/12/21 9:08:00 EST, Height/Length Dosing, 125, kg, 03/12/21 9:08:00 EST, Weight Dosing dexamethasone, 6 mg = 1 tab(s), Oral, Daily, X 7 day(s), # 7 tab(s), Refills(s) 0, Pharmacy: [facility], 173, cm, 03/12/21 9:08:00 EST, Height/Length [...] Information Tricia Dewey In 3 days [address], [address] [place] [address]- Business (1) Additional Instructions: Problem List/Past Medical [...] Past, denies, (more content not included)... Normal [facility] Comment on above: Result Comment: Elec tronically Signed By: Tal Gonzalez DO\.tamar\Date and Time Signed: 03/12/21 12:46 EST ED Patient Education Noteon 03-12-2021 ED Patient Education Note Normal [facility] ED Patient Summaryon 021 ED Patient Summary [address] [address] Patient Discharge Instructions Person Information Name: BEULAH MURPHY Age: 30 Years Arrival Date: 03/12/2021 08:55:19 Discharge Diagnosis: COVID-19; Near syncope Primary Care Physician: Tricia Dewey CNP Provider Information Primary Provider: Tal Gonzalez DO Advanced Police Stenographer:None The exam and treatment you received in the Emergency Department were for an urgent problem and are not intended as complete care. It is important that you follow up with a doctor, nurse practitioner, or physician?s assistant chief nursing officer for ongoing care. If your symptoms become worse or you do not improve as expected and you are unable to reach your usual health care provider, you should return to the Emergency Department. We are available 24 hours a day. BEULAH MURPHY has been given the following list of patient education materials, prescriptions and follow-up instructions: Follow-up Instructions: With: Address: When: Tricia Dewey [address] [place] [address], [address] [place] [phone] Business (1) In 3 days In the event that this physician does not participate in your insurance network, please consult with your insurance company to find a nearby participating provider. Patient Education Materials: A MESSAGE TO ALL PATIENTS REGARDING OPIOIDS PRESCRIPTION OPIOIDS: WHAT YOU NEED TO KNOW Prescription opioids can be used to help relieve mxohvrrc-tb-fnjcdu pain and are often prescribed following a [...] be struggling with addiction, tell your health tire care manager and ask for guidance or call [employer]?S National Helpline at 6-577-426-FQBG. v Source: [place] Department of Health and Human (more content not included)... Normal [facility] PT & PTTon 03-12-2021 aPTT Coag (PPP) [Time] 30.8 second(s) Normal 25.1-36.5 [facility] Comment on above: Result Comment: Hepa rin therapeutic range (represented by Anti-Factor Xa activity of 0.2 - 0.4 U/mL) corresponds to PTT of 56.6 - 109.0 sec. Performed By: #### 2 231971, 2758318, 0848538, 1206851, 32722994, 99510019, 50136322 ####[facility] [address] [place] [address] INR Coag (PPP) [Relative time] 1.2 {INR} Invalid Interpretation Code [facility] Comment on above: Result Comment: INR results are specifically intended to assess patients stabilized on long-term Anticoagulation therapy suggested INR?s ?Less Intensive Anticoagulation? 2.0 ? 3.0 Conventional Range 3.0 ? 4.5 Performed By: #### 2 890110, 0458675, 5509494, 8841606, 45941214, 10543485, 57054640 ####[facility] [address] [place] [address] PT Coag (PPP) [Time] 14.1 second(s) High 10.2-12.9 [facility] Comment on above: Performed By: #### 2 242362, 2310784, 4334776, 0541669, 82852579, 68957978, 98419054 ####[facility] [address] [place] [address] Troponin 0 Hr.on 03-12-2021 Troponin I.cardiac [Mass/Vol] 3.90 pg/mL Low 10.10-27.10 [facility] Comment on above: Result Comment: The 95% CI (Confidence Interval) PPV (Positive Predictive Value) for myocardial infarction in females is 38 pg/mL, in males 51 pg/mL. The results should be used in conjunction with clinical conditions of myocardial infarction. (Access High Sensitivity Troponin I Instructions For Use, Randell Cony, November 2017) Performed By: #### 2 506480, 0780660, 1719089, 2703467, 52490792, 37022644, 50316608 ####[facility] [address] [place] [address] XR Chest Single Viewon 03-12 XR Chest [...] DO Transcribed by: ROBERT Technologist: FAUSTINA Shepherd [facility] eGFRon 03-12-2021 GFR/1.73 sq M.predicted among blacks MDRD (S/P/Bld) [Vol rate/Area] mL/min/{1.73_m2} Normal >=59 [facility] Comment on above: Order Comment: Order added by Discern Expert. Result Comment: eGFR is race adjusted. AA=. Performed By: #### 2 433891, 6375576, 5946343, 4185750, 65881271, 98664768, 60021102 ####[facility] [address] [place] [address] GFR/1.73 sq M.predicted among non-blacks MDRD (S/P/Bld) [Vol rate/Area] mL/min/{1.73_m2} Normal >=59 [facility] Comment on above: Order Comment: Order added by Discern Expert. Result Comment: [employer] [facility] kidney disease could be indicated at eGFR's of less than 60 mL/min/1.73m2. Kidney failure is indicated at less than 15 mL/min/1.73m2. Performed By: #### 2 400951, 8443510, 3887009, 5130353, 21322810, 63475491, 65228491 ####[facility] [address] [place] [address] Consent for Treatmenton Consent for Treatment [id number]#1 .00CD:127 Normal [facility] Physician Orderon 03-10-2021 Physician Order [id number]# 1.00CD:127 Normal [facility] XR Chest 2 Viewson XR Chest 2 [...] Davis DO Transcribed by: ROBERT Technologist: ISAAC [facility] Vital Signs Date Time Vital Sign Value Performing Clinician Oseas dobbins 10-28-2024 11:25-0400 Body mass index (BMI) [Ratio] 42.61 kg/m2 [employer] Work Phone: [facility] 10-28-2024 11:25-040 Body weight 129 kg Theodore Adrian DO Work Phone: [facility] 10-28-2024 11:25-0400 Diastolic blood pressure 70 mm[Hg] Theodore Adrian DO Work Phone: [facility] 10-28-2024 11:25-040 Systolic blood pressure 108 mm[Hg] Theodore Adrian DO Work Phone: [facility] 10-21-2024 14:17-0400 Body mass index (BMI) [Ratio] 42.44 kg/m2 Theodore Adrian DO Work Phone: [facility] 10-21-2024 14:17-0400 Body weight 128.48 kg Theodore Adrian DO Work Phone: [facility] 10-21-2024 14:17-0400 Diastolic blood pressure 72 mm[Hg] Theodore Adrian DO Work Phone: [facility] 10-21-2024 14:17-0400 Systolic blood pressure 110 mm[Hg] Theodore Adrian DO Work Phone: [facility] 10-14-2024 15:07-0400 Body mass index (BMI) [Ratio] 42.67 kg/m2 Theodore Adrian DO Work Phone: [facility] 10-14-2024 15:07-0400 Body weight 129.18 kg Theodore Adrian DO Work Phone: [facility] 10-14-2024 15:07-0400 Diastolic blood pressure 70 mm[Hg] Theodore Adrian DO Work Phone: [facility] 10-14-2024 15:07-0400 Systolic blood pressure 110 mm[Hg] Theodore Adrian DO Work Phone: [facility] 09-30-2024 15:47-0400 Body mass index (BMI) [Ratio] 42.37 kg/m2 [employer] [place] [employer] Work Phone: [facility] 09-30-2024 15:47-0400 Body weight 128.25 kg [employer] [place] [employer] Work Phone: [facility] 09-30-2024 15:47-0400 Diastolic blood pressure 80 mm[Hg] [employer] [employer] Work Phone: [facility] 09-30-2024 15:47-0400 Systolic blood pressure 130 mm[Hg] Flower Otero PA Work Phone: [facility] 09-17-2024 10:49-0400 Body mass index (BMI) [Ratio] 41.97 kg/m2 Theodore Adrian DO Work Phone: [facility] 09-17-2024 10:49-0400 Body weight 127.06 kg Theodore Adrian DO Work Phone: [facility] 09-17-2024 10:49-0400 Diastolic blood pressure 70 mm[Hg] Theodore Adrian DO Work Phone: [facility] 09-17-2024 10:49-0400 Systolic blood pressure 112 mm[Hg] Theodore Adrian DO Work Phone: [facility] 08-27-2024 09:21-0400 Body mass index (BMI) [Ratio] 41.52 kg/m2 [employer] [place] [employer] Work Phone: [facility] 08-27-2024 09:21-0400 Body weight 125.7 kg [place] Work Phone: [facility] 08-27-2024 09:21-0400 Diastolic blood pressure 70 mm[Hg] [place] [employer] Work Phone: [facility] 08-27-2024 09:21-0400 Systolic blood pressure 120 mm[Hg] [employer] [employer] Work Phone: [facility] 08-01-2024 09:31-0400 Body mass index (BMI) [Ratio] 41.21 kg/m2 Theodore Adrian DO Work Phone: [facility] 08-01-2024 09:31-0400 Body weight 124.74 kg Theodore Adrian DO Work Phone: [facility] 08-01-2024 09:31-0400 Diastolic blood pressure 72 mm[Hg] Theodore Adrian DO Work Phone: [facility] 08-01-2024 09:31-0400 Systolic blood pressure 112 mm[Hg] Theodore Adrian DO Work Phone: [facility] 06-03-2024 14:49-0500 Body mass index (BMI) [Ratio] 40.58 kg/m2 Theodore Adrian DO Work Phone: [facility] 06-03-2024 14:49-0500 Body weight 122.83 kg Theodore Adrian DO Work Phone: [facility] 06-03-2024 14:49-0500 Diastolic blood pressure 72 mm[Hg] Theodore Adrian DO Work Phone: [facility] 06-03-2024 14:49-0500 Systolic blood pressure 106 mm[Hg] Theodore Adrian DO Work Phone: [facility] 05-02-2024 11:56-0500 Body mass index (BMI) [Ratio] 40.28 kg/m2 Theodore Adrian DO Work Phone: [facility] 05-02-2024 11:56-0500 Body weight 121.93 kg Theodore Adrian DO Work Phone: [facility] 05-02-2024 11:56-0500 Diastolic blood pressure 70 mm[Hg] Theodore Adrian DO Work Phone: [facility] 05-02-2024 11:56-0500 Systolic blood pressure 110 mm[Hg] Theodore Adrian DO Work Phone: [facility] 02-15-2024 14:26-0500 Body mass index (BMI) [Ratio] 41.77 kg/m2 Flower Otero PA Work Phone: [facility] 02-15-2024 14:26-0500 Body weight 126.46 kg Flower Otero PA Work Phone: [facility] 02-15-2024 14:26-0500 Diastolic blood pressure 80 mm[Hg] Flower Isiah PA Work Phone: [facility] 02-15-2024 14:26-0500 Systolic blood pressure 120 mm[Hg] Flower Isiah PA Work Phone: [facility] 02-12-2024 08:50-0500 Body mass index (BMI) [Ratio] 41.8 kg/m2 Theodore Adrian DO Work Phone: [facility] 02-12-2024 08:50-0500 Body weight 126.55 kg Theodore Adrian DO Work Phone: [facility] 02-12-2024 08:50-0500 Diastolic blood pressure 72 mm[Hg] Theodore Adrian DO Work Phone: [facility] 02-12-2024 08:50-0500 Systolic blood pressure 118 mm[Hg] Theodore Adrian DO Work Phone: [facility] Encounters Encounter Date Encounter Type Care Provider Facility Start: 11-05-2024 End: 11-05-2024 Clinisync Result Encounter Theodore Adrian DO Work Phone: [facility] Unsolicited Start: 11-05-2024 End: 11-05-2024 Clinisync Result Encounter Theodore Adrian DO Work Phone: [facility] Unsolicited Start: 11-04-2024 End: 11-04-2024 Bamboo flowsheet Theodore Adrian DO Work Phone: [facility] Start: 11-04-2024 End: 11-04-2024 Bamboo flowsheet Theodore Adrian DO Work Phone: [facility] Start: 11-04-2024 End: 11-04-2024 ambulatory THEODORE ADRIAN Not Available Start: 11-04-2024 End: 11-04-2024 flow sheet Theodore Adrian DO Work Phone: [facility] Comment on above: Third trimester preg lakia ([facility] 38 weeks gestation of ([facility]); HSV infection; Multigravida of advanced maternal age in third trimester ([facility]) Start: 10-29-2024 End: 10-29-2024 Clinisync Result Encounter Theodore Adrian DO Work Phone: [facility] Unsolicited Start: 10-29-2024 End: 10-29-2024 Clinisync Result Encounter Theodore Adrian DO Work Phone: [facility] Unsolicited Start: 10-28-2024 End: 10-28-2024 Bamboo flowsheet Theodore Adrian DO Work Phone: [facility] Start: 10-28-2024 End: 10-28-2024 Bamboo flowsheet Theodore Adrian DO Work Phone: [facility] Start: 10-28-2024 End: 10-28-2024 flow sheet Theodore Adrian DO Work Phone: [facility] Comment on above: Third trimester preg lakia ([facility]); 37 weeks gestation of ([facility]) Start: 10-28-2024 End: 10-28-2024 ambulatory THEODORE ADRIAN Not Available Start: 10-22-2024 End: 10-22-2024 Clinisync Result Encounter Theodore Adrian DO Work Phone: [facility] Unsolicited Start: 10-22-2024 End: 10-22-2024 Clinisync Result Encounter Theodore Adrian DO Work Phone: [facility] Unsolicited Start: 10-21-2024 End: 10-21-2024 ambulatory THEODORE ADRIAN Not Available Start: 10-21-2024 End: 10-21-2024 Bamboo flowsheet Theodore Adrian DO Work Phone: [facility] Start: 10-21-2024 End: 10-21-2024 Bamboo flowsheet Theodore Adrian DO Work Phone: [facility] Start: 10-21-2024 End: 10-21-2024 flow sheet Theodore Adrian DO Work Phone: [facility] Comment on above: Third trimester preg lakia ([facility]); 36 weeks gestation of ([facility]); Multigravida of advanced maternal age in third trimester ([facility]); HSV infection; Excessive growth affecting management of , antepartum, single or unspecified fetus ([facility]) Start: 10-16-2024 End: 10-16-2024 Clinisync Result Encounter Theodore Adrian DO Work Phone: [facility] Unsolicited Start: 10-16-2024 End: 10-16-2024 Clinisync Result Encounter Theodore Adrian DO Work Phone: [facility] Unsolicited Start: 10-14-2024 End: 10-14-2024 flow sheet Theodore Adrian DO Work Phone: [facility] Comment on above: 35 weeks gestation o f ([facility]); Third trimester ([facility]); Multigravida of advanced maternal age in third trimester ([facility]); Excessive growth affecting management of , antepartum, single or unspecified fetus ([facility]); Low iron; HSV infection Start: 10-14-2024 End: 10-14-2024 ambulatory THEODORE ADRIAN Not Available Start: 10-09-2024 End: 10-09-2024 Clinisync Result Encounter Theodore Adrian DO Work Phone: [facility] Unsolicited Start: 10-09-2024 End: 10-09-2024 Clinisync Result Encounter Theodore Adrian DO Work Phone: [facility] Unsolicited Start: 10-02-2024 End: 10-02-2024 Clinisync Result Encounter Theodore Adrian DO Work Phone: [facility] Unsolicited Start: 10-02-2024 End: 10-02-2024 Clinisync Result Encounter Theodore Adrian DO Work Phone: [facility] Unsolicited Start: 09-30-2024 End: 09-30-2024 flow sheet Flower DE LA PAZ Work Phone: [facility] Comment on above: Third trimester preg lakia ([facility]); 33 weeks gestation of ([facility]) Start: 09-30-2024 End: 09-30-2024 ambulatory FLOWER OTERO Not Available Start: 09-30-2024 End: 09-30-2024 Bamboo flowsheet Flower DE LA PAZ Work Phone: [facility] Start: 09-30-2024 End: 09-30-2024 Bamboo flowsheet Flower DE LA PAZ Work Phone: [facility] Start: 09-25-2024 End: 09-25-2024 Clinisync Result Encounter Theodore Adrian DO Work Phone: [facility] Unsolicited Start: 09-25-2024 End: 09-25-2024 Clinisync Result Encounter Theodore Adrian DO Work Phone: [facility] Unsolicited Start: 09-17-2024 End: 09-17-2024 flow sheet Theodore Adrian DO Work Phone: [facility] Comment on above: 31 weeks gestation o f ; Third trimester ; Multigravida of advanced maternal age in third trimester; Excessive growth affecting management of , antepartum, single or unspecified fetus Start: 09-17-2024 End: 09-17-2024 ambulatory THEODORE ADRIAN Not Available Start: 08-27-2024 End: 08-27-2024 [...] Not Available Start: 08-08-2024 End: 08-08-2024 ambulatory THEODORE Mendez [facility] Start: 08-07-2024 End: 08-07-2024 Chart abstracting Scanning Provider External Maternal- Medicine at [facility] Start: 08-01-2024 End: 08-01-2024 flow sheet Theodore Adrian DO Work Phone: [facility] Comment on above: Second trimester pre gnancy; 24 weeks gestation of ; Multigravida of advanced maternal age in second trimester Start: 08-01-2024 End: 08-01-2024 ambulatory THEDOORE ADRIAN Not Available Start: 07-01-2024 End: 07-01-2024 ambulatory FLOWER OTERO Not Available Start: 07-01-2024 End: 07-01-2024 ambulatory THEODORE ADRIAN Not Available Start: 06-03-2024 End: 06-03-2024 ambulatory THEODORE ADRIAN Not Available Start: 06-03-2024 End: 06-03-2024 flow sheet Theodore Adrian DO Work Phone: [facility] Comment on above: Second trimester pre gnancy; 16 weeks gestation of ; STD exposure; Vaginal discharge; Screening, , for anatomic survey; Antepartum multigravida of advanced maternal age Start: 06-03-2024 End: 06-03-2024 Bamboo flowsheet Theodore Adrian DO Work Phone: [facility] Start: 06-03-2024 End: 06-04-2024 Bamboo flowsheet Theodore Adrian DO Work Phone: [facility] Start: 06-03-2024 End: 06-04-2024 External Result Encounter Theodore Adrian DO Work Phone: [facility] Unsolicited Start: 05-02-2024 End: 05-02-2024 Bamboo flowsheet Theodore Adrian DO Work Phone: [facility] Start: 05-02-2024 End: 05-02-2024 Bamboo flowsheet Theodore Adrian DO Work Phone: [facility] Start: 05-02-2024 End: 05-02-2024 flow sheet Theodore Adrian DO Work Phone: [facility] Comment on above: First trimester preg lakia; 11 weeks gestation of Start: 05-02-2024 End: 05-02-2024 ambulatory THEODORE ADRIAN Not Available Start: 04-11-2024 End: 04-11-2024 ambulatory Theodore Adrian Facility:[facility] Start: 04-11-2024 End: 04-11-2024 Departed Referred Theodore Adrian DO Work Phone: [facility] Start: 04-11-2024 End: 04-11-2024 Clinisync Result Encounter Theodore Adrian DO Work Phone: [facility] Unsolicited Start: 04-11-2024 End: 04-11-2024 Clinisync Result Encounter Theodore Adrian DO Work Phone: [facility] Unsolicited Start: 04-11-2024 End: 04-11-2024 ambulatory THEODORE ADRIAN Not Available Start: 03-23-2024 End: 03-23-2024 Clinisync Result Encounter Theodore Adrian DO Work Phone: [facility] Unsolicited Start: 03-23-2024 End: 03-23-2024 Clinisync Result Encounter Theodore Adrian DO Work Phone: [facility] Unsolicited Start: 03-22-2024 End: 03-22-2024 Clinisync Result Encounter Theodore Adrian DO Work Phone: [facility] Unsolicited Start: 03-22-2024 End: 03-22-2024 Clinisync Result Encounter Theodore Adrian DO Work Phone: [facility] Unsolicited Start: 03-20-2024 End: 03-20-2024 Clinisync Result Encounter Theodore Adrian DO Work Phone: [facility] Unsolicited Start: 03-20-2024 End: 03-20-2024 Clinisync Result Encounter Theodore Adrian DO Work Phone: [facility] Unsolicited Start: 03-18-2024 End: 03-18-2024 Clinisync Result Encounter Theodore Adrian DO Work Phone: [facility] Unsolicited Start: 03-18-2024 End: 03-18-2024 Clinisync Result Encounter Theodore Adrian DO Work Phone: [facility] Unsolicited Start: 03-15-2024 End: 03-15-2024 Clinisync Result Encounter Theodore Adrian DO Work Phone: [facility] Unsolicited Start: 03-15-2024 End: 03-15-2024 Clinisync Result Encounter Theodore Adrian DO Work Phone: [facility] Unsolicited Start: 03-13-2024 End: 03-13-2024 Clinisync Result Encounter Theodore Adrian DO Work Phone: [facility] Unsolicited Start: 03-13-2024 End: 03-13-2024 Clinisync Result Encounter Theodore Adrian DO Work Phone: [facility] Unsolicited Start: 03-11-2024 End: 03-11-2024 Clinisync Result Encounter Theodore Adrian DO Work Phone: [facility] Unsolicited Start: 03-11-2024 End: 03-11-2024 Clinisync Result Encounter Theodore Adrian DO Work Phone: [facility] Unsolicited Start: 03-02-2024 End: 03-03-2024 Clinisync Result Encounter Theodore Adrian DO Work Phone: [facility] Unsolicited Start: 03-02-2024 End: 03-03-2024 Clinisync Result Encounter Theodore Adrian DO Work Phone: [facility] [...] Available Start: 02-12-2024 End: 02-12-2024 Bamboo flowsheet Theodore Adrian DO Work Phone: [facility] Start: 02-12-2024 End: 02-12-2024 Bamboo flowsheet Theodore Adrian DO Work Phone: [facility] Start: 02-12-2024 End: 02-12-2024 Office outpatient visit 15 minutes Theodore Adrian DO Work Phone: [facility] Comment on above: Anovulation Start: 02-12-2024 End: 02-12-2024 ambulatory THEODORE CAMPBELL Not Available Start: 08-24-[address] THEODORE CAMPBELL . Facili ty:[facility] Start: 08-22-2022 End: 08-23-[address] THEODORE CAMPBELL . Facility:[facility] Start: 05-27-2022 End: 06-08-[address] THEODORE CAMPBELL . Facility:[facility] Start: 05-22-2022 End: 05-22-2022 ambulatory MILENA TOVAR . Facility:[facility] Start: 05-17-2022 End: 06-08-[address] THEODORE CAMPBELL . Facility:[facility] Start: 05-13-2022 End: 05-14-[address] THEODORE CAMPBELL . Facility:[facility] Start: 04-28-2022 End: 04-29-[address] THEODORE CAMPBELL . Facility: Start: 04-26-2022 End: 04-27-[address] THEODORE CAMPBELL . Facility:[facility] Start: 04-15-2022 End: 05-10-[address] THEODORE CAMPBELL . Facility: Start: 03-14-2022 End: 03-15-[address] THEODORE CAMPBELL . Facility: Start: 02-14-2022 End: 02-15-[address] THEODORE CAMPBELL . Facility: Procedures Date Procedure Procedure Detail Performing Clinician Start: 11-05-2024 US OB BPP W NON-STRESS Theodore Adrian DO Work Phone: Start: 11-04-2024 Urnls dip stick/tabl et rgnt non-auto w/o micrscp Theodore Adrian DO Work Phone: Start: 10-29-2024 US OB BPP W NON-STRESS Theodore Adrian DO Work Phone: Start: 10-28-2024 Urnls dip stick/tabl et rgnt non-auto w/o micrscp Theodore Adrian DO Work Phone: Start: 10-22-2024 US OB BPP W NON-STRESS Theodore Adrian DO Work Phone: Start: 10-21-2024 Urnls dip stick/tabl et rgnt non-auto w/o micrscp Theodore Adrian DO Work Phone: Start: 10-16-2024 US OB BPP W NON-STRESS Theodore Adrian DO Work Phone: Start: 10-14-2024 Urnls dip stick/tabl et rgnt non-auto w/o micrscp Theodore Adrian DO Work Phone: Start: 10-09-2024 US OB BPP W NON-STRESS Theodore Adrian DO Work Phone: Start: 10-02-2024 US OB BPP W NON-STRESS Theodore Adrian DO Work Phone: Start: 09-30-2024 Urnls dip stick/tabl et rgnt non-auto w/o micrscp Flower DE LA PAZ Work Phone: Start: 09-25-2024 US OB BPP W NON-STRESS Theodore Adrian DO Work Phone: Start: 09-17-2024 Urnls dip stick/tabl et rgnt non-auto w/o micrscp Theodore Adrian DO Work Phone: Start: 08-27-2024 MLR HEMOGLOBIN A1C Flower DE LA PAZ Work Phone: Start: 08-27-2024 Urnls dip stick/tabl et rgnt non-auto w/o micrscp Flower DE LA PAZ Work Phone: Start: 06-03-2024 RECURRENT VAGINITIS (HTRX) Theodore Adrian DO Work Phone: Start: 06-03-2024 Urnls dip stick/tabl et rgnt non-auto w/o micrscp Theodore Adrian DO Work Phone: Start: 05-02-2024 Urnls dip stick/tabl et rgnt non-auto w/o micrscp Flower DE LA PAZ Work Phone: Start: 04-11-2024 ALL CBC WITH AUTO DIFF Theodore Adrian DO Work Phone: Start: 03-23-2024 TBH [...] DO Work Phone: Start: 03-02-2024 ALL PROGESTERONE Theodore Adrian DO Work Phone: Start: 02-15-2024 IGP,APTIMA HPV,AGE GDLN Flower DE LA PAZ Work Phone: Plan of Treatment Date Care Activity Detail Author Start: 12-09-2024 Influenza vaccination Influenza Vacc ine [facility] Start: 11-19-2024 End: 11-19-2024 Patient encounter procedure 11/19/2024 1:30 PM EDT Office Visit [facility] [address] [place] [id number] Flower Otero, PA [address] [place], [place] [id number] [facility] Start: 11-04-2024 End: 11-04-2024 Patient encounter procedure 11/04/2024 9:30 AM EDT Routine [facility] [address] [place] [phone] Adrian, Theodore, DO [address] [place] [address] [facility] Start: 10-28-2024 End: 10-28-2024 Patient encounter procedure [facility] Comment on above: Arrived Start: 10-21-2024 End: 10-21-2025 CULTURE, GROUP B STREP WITH SUSCEPTIBLITY CULTURE, GROUP B STREP WITH SUSCEPTIBLITY Lab Routine Third trimester ([facility]) Expected: 10/21/2024, Expires: 10/21/2025 [facility] Work Phone: Comment on above: Expected: 10/21/2024 , Expires: 10/21/2025 Start: 10-21-2024 End: 10-21-2024 Patient encounter procedure 10/21/2024 2:00 PM EDT Routine [facility] [address] [place] [phone] Theodore Campbell, [address] [place] [address] [facility] Start: 10-14-2024 End: 10-14-2024 Patient encounter procedure 10/14/2024 2:30 PM EDT Routine [facility] [address] [place] [phone] Theodore Campbell, DO [address] [place] [address] [facility] Start: 10-14-2024 End: 10-14-2024 Professional / ancillary services management 10/14/2024 2:00 PM EDT Ancillary Procedure [facility] [address] [place] [place] [phone] [facility] Start: 09-30-2024 End: 09-30-2024 [...] [facility] [address] [place] [phone] Theodore Campbell, DO [address] [place] [address] [facility] Start: 09-17-2024 End: 09-17-2024 Professional / ancillary services management 09/17/2024 9:30 AM EDT Ancillary Procedure [facility] [address] [place] [address] [facility] Start: 08-27-2024 End: [...] 08/08/2024 8:00 AM EDT Appointment [facility] [place] [address] [place] [address] [facility] Start: 07-01-2024 End: 07-01-2024 Patient encounter procedure 07/01/2024 9:40 AM EDT Routine [facility] [address] [place] [address] Flower Otero PA [address] [place] [address] [facility] Start: 07-01-2024 End: 07-01-2024 Professional / ancillary services management 07/01/2024 8:30 AM EDT Ancillary Procedure [facility] [address] [place] [address] [facility] Start: 06-11-2024 End: 06-11-2024 Patient encounter procedure 06/11/2024 8:40 AM EST Office Visit [facility] [address] [place] [address] Theodore Campbell, DO [address] [place] [address] [facility] Start: 06-03-2024 End: 06-03-2024 Patient encounter procedure 06/03/2024 2:20 PM EST Routine [facility] [address] [place] [address] Theodore Campbell, DO [address] [place] [address] [facility] Start: 06-03-2024 End: 08-01-2024 [...] on above: Arrived Start: 04-11-2024 Urine culture [facility] Start: 04-11-2024 Bacteria identified in Urine by Culture Urine Culture [facility] Start: 04-11-2024 End: 04-11-2024 ambulatory 04/11/2024 1:00 PM EST Initial [facility] [address] [place] [address] [facility] Start: 04-11-2024 End: 04-11-2024 Professional / ancillary services management 04/11/2024 12:30 PM EST Ancillary Procedure [facility] [address] [place] [phone] [facility] Start: 02-15-2024 End: 02-15-2024 Patient encounter procedure [facility] Comment on above: Arrived Start: 02-12-2024 End: 02-12-2024 Patient encounter procedure 02/12/2024 8:50 AM EST Office Visit [facility] [address] [place] [address] Theodore Campbell DO [address] [place] [address] Arrived [facility] Comment on above: Arrived Start: 2009 Screening for malign ant neoplasm of cervix Pap Smear [facility] Start: 11-29-2007 DTaP,Tdap and Td Vaccines (1 - Tdap) DTaP,Tdap and Td Vaccines (1 - Tdap) [facility] Start: 2006 Adult BMI Screening Adult BMI Screen ing [facility] Start: 2000 Depression Screening Depression Scre ening [facility] Start: 2000 Tobacco Screening Tobacco Screening [facility] CHLAMYDIA TRACHOMATI S (GENITO/STI) CHLAMYDIA TRACHOMATIS (GENITO/STI) Lab Routine STD exposure Ordered: 06/03/2024 [facility] Comment on above: Ordered: 06/03/2024 Cytology Cervical or vaginal smear or scraping study Pap Smear Pathology and Cytology Routine Well woman exam with routine gynecological exam Ordered: 02/15/2024 [facility] Work Phone: Comment on above: Ordered: 02/15/2024 Hemoglobin A1c/Hemoglobin.total in Blood Hemoglobin A1c Lab Routine Third trimester 28 weeks gestation of Size of fetus inconsistent with dates in second trimester Ordered: 08/27/2024 [facility] Comment on above: Ordered: 08/27/2024 Human papilloma viru s DNA [Presence] in Unspecified specimen by Probe with amplification HPV DNA probe, amplified Microbiology Routine Well woman exam with routine gynecological exam Ordered: 02/15/2024 [facility] Comment on above: Ordered: 02/15/2024 Neisseria gonorrhoea e DNA [Presence] in Unspecified specimen by LYNNETTE with probe detection Neisseria gonorrhea DNA probe, direct Lab Routine STD exposure Ordered: 06/03/2024 [facility] Comment on above: Ordered: 06/03/2024 SURESWAB(R) ADVANCED VAGINITIS PLUS, TMA SURESWAB(R) ADVANCED VAGINITIS PLUS, TMA Pathology and Cytology Routine STD exposure Ordered: 06/03/2024 [facility] Work Phone: Comment on above: Ordered: 06/03/2024 Payers Date Payer Category Payer Self-pay 2024 [employer] [facility] Managed Care - O ANTH [id number] 2023 [facility] [id number] [id number] 2023 Unknown [id number] 1988 Unknown [id number] 2.16.840.1.425414.3.579. 2.593 1988 Unknown [id number] 2.16.840.1.025810.3.579. 2.593 1988 Unknown [id number] 2.16.840.1.256910.3.579. 2.593 1988 Unknown [id number] 2.16.840.1.778517.3.579. 2.593 1988 Unknown [id number] 2.16.840.1.612806.3.579. 2.593 1988 Unknown [id number] 2.16.840.1.552148.3.579. 2.593 1988 Unknown [id number] 2.16.840.1.261546.3.579. 2.593 1988 Unknown [id number] 2.16.840.1.133198.3.579. 2.593 1988 Unknown [id number] 2.16840.1.612258.3.579. 2.593 1988 Unknown [id number] 2.840.1.468118.3.579. 2.593 1988 Unknown [id number] 2.16840.1.023172.3.579. 2.593 1988 Unknown [id number] 2.16840.1.810601.3.579. 2.593 1988 Unknown [id number] 2.16840.1.032265.3.579. 2.1286 1988 Unknown [id number] 2.16840.1.011439.3.579. 2.1259 1988 Unknown [id number] 2.16840.1.715870.3.579. 2.1259 1988 Unknown [id number] 2.16840.1.023904.3.579. 2.1259 1988 Unknown [id number] 2.16.840.1.991237.3.579. 2.1259 1988 Unknown [id number] 2.16840.1.528681.3.579. 2.1259 1988 Unknown [id number] 2.16.840.1.698027.3.579. 2.1259 1988 Unknown [id number] 2.16.840.1.122517.3.579. 2.1259 1988 Unknown [id number] 2.16.840.1.548407.3.579. 2.1259 1988 Unknown [id number] 2.16.840.1.853984.3.579. 2.1258 1988 Unknown [id number] 2.16.840.1.550598.3.579. 2.1259 1988 Unknown [id number] 2.840.1.607184.3.579. 2.1258 1988 Unknown [id number] 2.16840.1.153296.3.579. 2.1258 1988 Unknown [id number] .840.1.315952.3.579. 2.1258 1988 Unknown [id number] 2.840.1.794330.3.579. 2.1258 1988 Unknown [id number] 2.840.1.618004.3.579. 2.1258 1988 Unknown [id number] 2.16.840.1.172889.3.579. 2.9 1988 Unknown [id number] 2.840.1.900397.3.579. 2.1258 1988 Unknown [id number] 2.16840.1.447611.3.579. 2.1259 1988 Unknown [id number] 2.16840.1.322246.3.579. 2.1259 1959 Private Health Insurance [id number] Unknown [id number] 2.16840.1.170300.3.579. 2.531 Unknown [place] BC/BS [id number] Social History Date Type Detail Facility Start: 12-01-2022 End: 08-07-2024 Tobacco smoking status NHIS Never smoked tobacco [facility] Start: 08-24-2023 End: 11-04-2024 Alcoholic beverage intake Lifetime non-drinker (finding) THE [...] Sex assigned at Not on file N [facility] Start: 02-25-2024 [facility] Tobacco smoking stat us COIS Unknown if ever smoked [facility] Work Phone: Start: 04-12-2024 End: 08-05-2024 Sex Female (finding) [facility] Start: 1990 Sex Assigned At Female F [facility] Start: 08-07-2024 Tobacco use and exposure Smokeless tobacco non-user [employer] [facility] Medical Equipment Procedure Code Equipment Code Equipment Origin al Text Equipment Identifier Dates 1 strip by In Vi tro route Daily Use in the morning prior to breakfast, 1 hour after each meal for a total of 4times daily. [id number] Start: 07-25-2024 End: 08-27-2024 1 each by In Vit ro route Daily Use to check FSBS four times daily [id number] Start: 07-25-2024 End: 08-27-2024 Clinical Notes 02-12-2024 to 11-04-2024 Svetlana Simmons NP - 11/04/2024 9:30 AM Cassie Simmons NP - 10/28/2024 11:20 AM Sagar Candelaria LPN - 10/21/2024 2:00 PM Sagar Candelaria LPN - 10/14/2024 2:30 PM EDT Note Date & Type Note Facility 11-04-2024 History of Presen t illness Narrative Reason for Appointment: Patient ID: Beulah Murphy is a 33 y.o. female who presents for Routine Visit Patient presents today for Return OB appointment. MEDICATIONS Current Outpatient Medications Medication Instructions iron polysaccharides (ProFe) 391.3 (180 Fe) MG capsule Multiple Vitamin (Multivitamin Adult) tablet Orally [id number] ( 1 + IRON PO) progesterone 200 [...] Yeast infection 12/02/2022 31 weeks gestation of ([facility]) 09/17/2024 Third trimester ([facility]) 09/17/2024 Multigravida of advanced maternal age in third trimester ([facility]) 09/17/2024 Resolved Ambulatory Problems Diagnosis Date Noted Bleeding in early ([facility]) 12/02/2022 Past Medical History: Diagnosis Date Frequent UTI Herpes History of chlamydia 2008 History of depression 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 Personal history of other medical treatment ([facility]) [place] teeth removed HISTORY PAST MEDICAL HISTORY SOCIAL HISTORY Past Medical History: Diagnosis Date Bleeding in early ([facility]) 12/02/2022 Frequent UTI Herpes History of chlamydia 2008 History of depression no meds 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 Exam conducted with a commercial account officer present. Vitals: Estimated body mass index is 42.61 kg/m as calculated from the following: Height as of 08/22/22: 5' 8.5 . Weight as of 10/28/24: 284 lb 6.4 oz. BP: Patient's last menstrual period was 02/11/2024. ASSESSMENT & PLAN ICD-10-CM 1. Third trimester ([facility]) Z34.93 POCT urinalysis dipstick manually resulted 2. 38 weeks gestation of ([facility]) Z3A.38 3. HSV infection B00.9 4. Multigravida of advanced maternal age in third trimester ([facility]) O09.523 Return OB: Patient presents today for [...] Theodore Campbell DO documented in this encounter [facility] 10-28-2024 History of Presen t illness Narrative Reason for Appointment: Patient ID: Beulah Murphy is a 33 y.o. female who presents for Routine Visit Patient presents today for Return OB appointment. MEDICATIONS Current Outpatient Medications Medication Instructions Jytmgebd-Ohi-Uk-FA ( 1 + IRON PO) valACYclovir (VALTREX) [...] Yeast infection 12/02/2022 31 weeks gestation of ([facility]) 09/17/2024 Third trimester ([facility]) 09/17/2024 Multigravida of advanced maternal age in third trimester ([facility]) 09/17/2024 Resolved Ambulatory Problems Diagnosis Date Noted Bleeding in early ([facility]) 12/02/2022 Past Medical History: Diagnosis Date Frequent UTI Herpes History of chlamydia 2008 History of depression 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 Personal history of other medical treatment ([facility]) [place] teeth removed HISTORY PAST MEDICAL HISTORY SOCIAL HISTORY Past Medical History: Diagnosis Date Bleeding in early ([facility]) 12/02/2022 Frequent UTI Herpes History of chlamydia 2008 History of depression no meds 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 Exam conducted with a commercial account officer present. Vitals: Estimated body mass index is 42.61 kg/m as calculated from the following: Height as of 08/22/22: 5' 8.5 . Weight as of this encounter: 284 lb 6.4 oz. BP: 108/70 Patient's last menstrual period was 02/11/2024. ASSESSMENT & PLAN ICD-10-CM 1. Third trimester ([facility]) Z34.93 POCT urinalysis dipstick manually resulted 2. 37 weeks gestation of ([facility]) Z3A.37 POCT urinalysis dipstick manually resulted Return [...] Theodore Campbell DO documented in this encounter [facility] 10-21-2024 History of Presen t illness Narrative Reason for Appointment: Patient ID: Beulah Murphy is a 33 y.o. female who presents for Routine Visit Patient presents today for Return OB appointment. MEDICATIONS Current Outpatient Medications Medication Instructions Qefzigmp-Dwa-Kx-FA ( 1 + IRON PO) valACYclovir (VALTREX) [...] Yeast infection 12/02/2022 31 weeks gestation of ([facility]) 09/17/2024 Third trimester ([facility]) 09/17/2024 Multigravida of advanced maternal age in third trimester ([facility]) 09/17/2024 Resolved Ambulatory Problems Diagnosis Date Noted Bleeding in early ([facility]) 12/02/2022 Past Medical History: Diagnosis Date Frequent UTI Herpes History of chlamydia 2008 History of depression 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 2011 Personal history of other medical treatment ([facility]) [place] teeth removed HISTORY PAST MEDICAL HISTORY SOCIAL HISTORY Past Medical History: Diagnosis Date Bleeding in early ([facility]) 12/02/2022 Frequent UTI Herpes History of chlamydia 2008 History of depression no meds 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 Exam conducted with a commercial account officer present. Vitals: Estimated body mass index is 42.44 kg/m as calculated from the following: Height as of 08/22/22: 5' 8.5 . Weight as of this encounter: 283 lb 4 oz. BP: 110/72 Patient's last menstrual period was 02/11/2024. ASSESSMENT & PLAN ICD-10-CM 1. Third trimester ([facility]) Z34.93 CULTURE, GROUP B STREP WITH SUSCEPTIBLITY CULTURE, GROUP B STREP WITH SUSCEPTIBLITY POCT urinalysis dipstick manually resulted 2. 36 weeks gestation of ([facility]) Z3A.36 3. Multigravida of advanced maternal age in third trimester ([facility]) O09.523 4. HSV infection B00.9 5. Excessive growth affecting management of , antepartum, single or unspecified fetus ([facility]) O36.60X0 Patient is doing well but has [...] Theodore Campbell DO documented in this encounter [facility] 10-14-2024 History of Presen t illness Narrative Reason for Appointment: Patient ID: Beulah Murphy is a 33 y.o. female who presents for Routine Visit Patient presents today for Return OB appointment. MEDICATIONS Current Outpatient Medications Medication Instructions Xyedocfp-Fbn-Bf-FA ( 1 + IRON PO) ALLERGIES Allergies Allergen Reactions Cefadroxil Hives Other Reaction(s): hives, Unknown Other Reaction(s): hives, rash Latex Itching Other Reaction(s): Itching Other Reaction(s): Hives Paroxetine Other Reaction(s): Unknown PROBLEMS Active Ambulatory Problems Diagnosis Date Noted Anovulation 12/02/2022 DUB (dysfunctional uterine bleeding) 12/02/2022 Menstrual disorder 12/02/2022 Missed menses 12/02/2022 Yeast infection 12/02/2022 31 weeks gestation of ([facility]) 09/17/2024 Third trimester ([facility]) 09/17/2024 Multigravida of advanced maternal age in third trimester ([facility]) 09/17/2024 Resolved Ambulatory Problems Diagnosis Date Noted Bleeding in early ([facility]) 12/02/2022 Past Medical History: Diagnosis Date Frequent UTI Herpes History of chlamydia 2008 History of depression 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 Personal history of other medical treatment ([facility]) [place] teeth removed HISTORY PAST MEDICAL HISTORY SOCIAL HISTORY Past Medical History: Diagnosis Date Bleeding in early ([facility]) 12/02/2022 Frequent UTI Herpes History of chlamydia 2008 History of depression no meds 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 Exam conducted with a commercial account officer present. Vitals: Estimated body mass index is 42.67 kg/m as calculated from the following: Height as of 08/22/22: 5' 8.5 . Weight as of this encounter: 284 lb 12.8 oz. BP: 110/70 Patient's last menstrual period was 02/11/2024. ASSESSMENT & PLAN ICD-10-CM 1. 35 weeks gestation of ([facility]) Z3A.35 POCT urinalysis dipstick manually resulted 2. Third trimester ([facility]) Z34.93 POCT urinalysis dipstick manually resulted 3. Multigravida of advanced maternal age in third trimester ([facility]) O09.523 4. Excessive growth affecting management of , antepartum, single or unspecified fetus ([facility]) O36.60X0 5. Low iron E61.1 Patient presents today for a routine obstetrics appointment. Patient is currently 35w1d with a Estimated Date of Delivery: 11/17/24. Patient aware that Valtrex will be sent to [facility] for history of HSV. Patient will return to clinic in 1 week for routine OB appointment and GBS will be obtained at that time. Documented by Daniela Candelaria LPN... on behalf of: Theodore Campbell DO documented in this encounter [facility] 09-30-2024 History of Presen t illness Narrative Reason for Appointment: Patient ID: Beulah Murphy [...] meal for a total of 4times daily. Hbyitaoc-Ucs-Rc-FA ( 1 + IRON PO) ALLERGIES Allergies Allergen Reactions Cefadroxil Hives Other Reaction(s): hives, Unknown Other Reaction(s): hives, rash Latex Itching Other Reaction(s): Itching Other Reaction(s): Hives Paroxetine Other Reaction(s): Unknown PROBLEMS Active Ambulatory Problems Diagnosis Date Noted Anovulation 12/02/2022 DUB (dysfunctional uterine bleeding) 12/02/2022 Menstrual disorder 12/02/2022 Missed menses 12/02/2022 Yeast infection 12/02/2022 31 weeks gestation of ([facility]) 09/17/2024 Third trimester ([facility]) 09/17/2024 Multigravida of advanced maternal age in third trimester ([facility]) 09/17/2024 Resolved Ambulatory Problems Diagnosis Date Noted Bleeding in early ([facility]) 12/02/2022 Past Medical History: Diagnosis Date Frequent UTI Herpes History of chlamydia 2008 History of depression 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 2011 Personal history of other medical treatment ([facility]) [place] teeth removed HISTORY PAST MEDICAL HISTORY SOCIAL HISTORY Past Medical History: Diagnosis Date Bleeding in early ([facility]) 12/02/2022 Frequent UTI Herpes History of chlamydia 2008 History of depression no meds 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 Third trimester ([facility] Z34.93 POCT urinalysis dipstick manually resulted 2. 33 weeks gestation of ([facility] Z3A.33 Return OB: Patient presents today for [...] BRAIN Martinez documented in this encounter [facility] 09-17-2024 History of Presen t illness Narrative Reason for Appointment: Patient ID: Beulah Murphy [...] iron polysaccharides (PROFE) 391.3 mg, Oral, Daily Pagjimhp-Isy-Ei-FA ( 1 + IRON PO) ALLERGIES Allergies [...] 2011 Personal history of other medical treatment [place] teeth removed HISTORY PAST MEDICAL HISTORY SOCIAL HISTORY Past Medical History: Diagnosis Date Bleeding in early 12/02/2022 Frequent UTI Herpes History of chlamydia 2008 History of depression no meds 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 2011 Personal history of other medical treatment Frenectomy x2 [place] teeth removed Social History Tobacco Use Smoking [...] nursing note reviewed. Exam conducted with a commercial account officer present. Vitals: Estimated body mass index is [...] Theodore Campbell DO documented in this encounter [facility] 08-27-2024 History of Presen t illness Narrative Reason for Appointment: Patient ID: Beulah Murphy is a 33 y.o. female who presents for Routine Visit Patient presents today for Return OB appointment. MEDICATIONS Current Outpatient Medications Medication Instructions Alcohol Swabs (Alcohol Prep Pad) 70 % pads 1 Pad, Topical, Daily, Use four times daily to check FSBS. 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 Patient going on a trip to [facility], she will return at 31 weeks. 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 Exam conducted with a commercial account officer present. Vitals: Estimated body mass index is [...] not cleared. Patient will be referred to [facility] for Level II Scan and consult if needed. Discussed patient upcoming vacation and precautions given. Patient will have growth scan start at 28 weeks gestation. Patient to return to clinic in 4 weeks. Patient to drop off FSBS results for routine in the meantime. Documented by Daniela Candelaria LPN on behalf of: Theodore Campbell DO documented in this encounter [facility] 06-03-2024 History of Presen t illness Narrative Reason for Appointment: Patient ID: Beulah Murphy is a 33 y.o. female who presents for Routine Visit Patient presents today for Return OB appointment. MEDICATIONS Current Outpatient Medications Medication Instructions Ugtsbltg-Mug-Uc-FA ( 1 + IRON PO) Progesterone 200 [...] 2011 Personal history of other medical treatment [place] teeth removed HISTORY PAST MEDICAL HISTORY SOCIAL HISTORY Past Medical History: Diagnosis Date Bleeding in early 12/02/2022 Frequent UTI Herpes History of chlamydia 2007 History of depression no meds 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 Personal history of other medical treatment Frenectomy x2 [place] teeth removed Social History Tobacco Use Smoking [...] nursing note reviewed. Exam conducted with a commercial account officer present. Vitals: Estimated body mass index is [...] off on referral at this time. Discussed [place] testing if patient desires to check for genetic testing and patient declines at this time as well. Obtained vaginal cultures without issue & patient to return to clinic in 4 weeks for routine OB appointment. Documented by Daniela Candelaria LPN on behalf of: Theodore Campbell DO documented in this encounter [facility] 05-02-2024 History of Presen t illness Narrative Reason for Appointment: Patient ID: Beulah Murphy is a 33 y.o. female who presents for Routine Visit Patient presents today for Return OB appointment. MEDICATIONS Current Outpatient Medications Medication Instructions Nbpsqpeq-Tiw-Qd-FA ( 1 + IRON PO) Vit-Fe Novhlhw-WK-JRK ( VITAMIN/MIN +DHA PO) Progesterone 200 MG [...] 2010 Personal history of other medical treatment [place] teeth removed HISTORY PAST MEDICAL HISTORY SOCIAL HISTORY Past Medical History: Diagnosis Date Bleeding in early 12/02/2022 Frequent UTI Herpes History of chlamydia 2008 History of depression no meds 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 Personal history of other medical treatment Frenectomy x2 [place] teeth removed Social History Tobacco Use Smoking [...] ray martinez documented in this encounter [facility] 02-15-2024 History of Presen t illness Narrative Reason for Appointment: Patient ID: Beulah Murphy is a 33 y.o. female who presents for Well Women Visit Patient presents today for Annual Exam. MEDICATIONS Current Outpatient Medications Medication Instructions co-enzyme Q-10 30 mg, Oral, Daily guaiFENesin (MUCINEX) 1,200 mg, Oral, 2 times daily, Do not crush, chew, or split. letrozole (FEMARA) 2.5 mg, Oral, Daily Rkzklutn-Fer-Cg-FA ( 1 + IRON PO) Vit-Fe Dhdflhp-MW-RUX ( VITAMIN/MIN +DHA PO) ALLERGIES Allergies Allergen [...] 2010 Personal history of other medical treatment [place] teeth removed HISTORY PAST MEDICAL HISTORY SOCIAL HISTORY Past Medical History: Diagnosis Date Bleeding in early 12/02/2022 Frequent UTI Herpes History of chlamydia 2007 History of depression no meds 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 Personal history of other medical treatment Frenectomy x2 [place] teeth removed Social History Tobacco Use Smoking [...] nursing note reviewed. Exam conducted with a commercial account officer present. Vitals: Estimated body mass index is [...] for annual unless needed otherwise. Documented by Asha Pereira LPN on behalf of: BRAIN Martinez documented in this encounter [facility] 02-12-2024 History of Presen t illness Narrative Reason for Appointment: Patient ID: Beulah Murphy is a 33 y.o. female who presents for Infertility (Pt present today to discuss infertility) Patient presents today for Consult appointment. MEDICATIONS Current Outpatient Medications Medication Instructions Ihwwfnvo-Mwu-We-FA ( 1 + IRON PO) Vit-Fe Vfjtqps-RH-HEO ( VITAMIN/MIN +DHA PO) ALLERGIES Allergies Allergen [...] 2010 Personal history of other medical treatment [place] teeth removed HISTORY PAST MEDICAL HISTORY SOCIAL HISTORY Past Medical History: Diagnosis Date Bleeding in early 12/02/2022 Frequent UTI Herpes History of chlamydia 2008 History of depression no meds 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 Personal history of other medical treatment Frenectomy x2 [place] teeth removed Social History Tobacco Use Smoking [...] nursing note reviewed. Exam conducted with a commercial account officer present. Vitals: Estimated body mass index is [...] Theodore Campbell DO documented in this encounter [facility] Healthcare Evaluation note Diagnosis Anovulation Female infertility associated with anovulation documented in this encounter [facility]* Diagnosis Well woman exam with routine gynecological exam Routine gynecological examination documented in this encounter [facility] HealthcareEvaluation noteNo assessment information availableMiddletown [facility] Work Phone: Evaluation note* Diagnosis [...] note* Diagnosis Third trimester ([facility]-HCC) state, incidental 38 weeks gestation of ([facility]) HSV infection Herpes simplex without mention of complication Multigravida of advanced maternal age in third trimester ([facility]) documented in this encounter [facility] HealthcareInstructionsNot on filedocumented in this encounterPro[facility] Purpose Family History No [...] section and content) DATE CREATED AUTHOR 07/05/2021 [facility] DATE CREATED AUTHOR AUTHOR'S ORGANIZ ATION 08/23/2022 [facility] DATE CREATED AUTHOR AUTHOR'S ORGANIZ ATION 04/19/2024 [facility] DATE CREATED AUTHOR AUTHOR'S ORGANIZ ATION 08/13/2024 [facility] DATE CREATED AUTHOR AUTHOR'S ORGANIZ ATION 11/04/2024 [facility] Reason for Visit (unrecogniz ed section and content) Reason Comments Infertility Pt present today to discuss infertility Reason Comments Well Women Visit Reason Comments Routine Visit Care Teams (unrecognized sec tion and content) Team Status: Inactive Member Role Status Dates Theodore Campbell DO Attending Provider Active Start : [...] BE BASED ON THE PRIMARY CLINICAL RECORDS. [facility]. provides no warranty or guarantee of the accuracy or completeness of information in this document.
== END 2024-11-08 08:43 | disposition home or self-care (01) ==
LOC: FBCO 08:08 → FBC 08:17
PROVIDERS: Visit Provider Obstetrics & Gynecology
DX: O09.529 Supervision of elderly multigravida, unspecified trimester (principal)
CPT/HCPCS: 59025

== ENCOUNTER 2024-11-12 05:36 | Inpatient (IN) | payer BC, SELFPAY ==
[2024-11-12] VITALS (57 sets, daily range): BP systolic 77–143; BP diastolic 54–98; PULSE 81–170; TEMP 35.9–37.1; O2SAT 90–100
--- OUTSIDE RECORDS SUMMARY | 2024-11-12 05:39 | XMS_ITS | CCD ---
Author Organization [facility] Care Team Providers Care Health Care Legal Assistant Name Role Phone ADRIAN ., DR KWAN [...] Admitting Unavailable Adrian DO, Theodore Attending Provider [phone] Unavailable Primary Care Provider Unavailabl e [...] Facility (1 source) Cefadroxil Drug Allergy [facility] Repository (1 source) natural latex rubber Drug allergy (disorder) [facility] Repository (20 sources) Cefadroxil; Translations: [CEFADROXIL] Drug Allergy 3 Hives [facility] (20 sources) Latex; Translations: [LATEX] Allergy to substance 3 Itching [facility] (20 sources) PARoxetine; Translations: [PAROXETINE] Drug Allergy 3 [facility] (1 source) Latex Propensity to adverse reactions [...] 391.3 (180 Fe) MG capsule 09/08/2024 Active Nbzxumys-Ora-Qf-FA ( 1 + IRON PO) (20 sources) Bhcfmioi-Cxt-Aq-FA ( 1 + IRON PO) Active vit,jorge [...] 150 each 3 07/25/2024 10/14/2024 Discontinued Vit-Fe Jvlmhfp-QM-A CAI ( VITAMIN/MIN +DHA PO) (20 sources) Start: 06-09-2023 End: 06-03-2024 Vit-Fe Ryrwnbd-TL-U CAI ( VITAMIN/MIN +DHA PO) 06/09/2023 06/03/2024 Discontinued (Other) Start: 06-09-2023 Vit-F e Nttvtua-YC-QQW ( VITAMIN/MIN +DHA PO) 06/09/2023 Active Progesterone [...] Facility OB BPP W NON-STRESS on 11-05-2024 [place] [address] Ultrasound Report Signed Patient: BEULAH MURPHY MR#: [id number] : 1990 Acct:[id number] Age/Sex: 33 / F ADM Date: 11/05/24 Loc: [facility] 250-[address]: Theodore Campbell D.O. Ordering Physician: Theodore Campbell D.O. Date of Service: 11/05/24 Procedure(s): US OB BPP w non-stress Accession Number(s): [id number] cc: Theodore Campbell D.O.; Physician,Non-Staff M.DAp [facility] [place] [id number] Patient Name: BEULAH MURPHY MRN: [facility]:[id number] date: 1990 Sex: F Assigned Patient Location: [facility] Current Patient Location: [facility] Accession/Order Number: [id number] Exam Date: 11/05/2024 09:45 Report Date: 11/05/2024 [...] Torre M.D. 11/05/2024 9:46 AM Dictation Location: [place] [address] Electronically authenticated by: [id number] Y Date: 11/05/2024 09:46 Dictated By: Alexus De La Torre M.D. Signed By: 11/05/2448 DD/ 5 TD/TT: Kiln Stoker: [facility] Radiology, Radiologist, MD - 11/05/2024 [place] [address] Ultrasound Report Signed Patient: BEULAH MURPHY MR#: [id number] : 1990 Acct:[id number] Age/Sex: 33 / F ADM Date: 11/05/24 Loc: [facility] 250-[address]: Theodore Campbell D.O. Ordering Physician: Theodore Campbell D.O. Date of Service: 11/05/24 Procedure(s): US OB BPP w non-stress Accession Number(s): [id number] cc: Theodore Campbell D.O.; Physician,Non-Staff MSalomon The [address] [address] Patient Name: BEULAH MURPHY MRN: [facility]:[id number] date: 1990 Sex: F Assigned Patient Location: [facility] Current Patient Location: [facility] Accession/Order Number: [id number] Exam Date: 11/05/2024 09:45 Report Date: 11/05/2024 [...] Torre M.D. 11/05/2024 9:46 AM Dictation Location: [place] [address] Electronically authenticated by: [id number] Y Date: 11/05/2024 09:46 Dictated By: Alexus De La Torre M.D. Signed By: 11/05/2448 DD/ 5 TD/TT: Kiln Stoker: [facility] Radiology Study observation (narrative) [facility] OB BPP W NON-STRESS Ordered By: Radiologist Radiology on 11-05-2024 [facility] Work Phone: Urinalysis macro (dipstick) panel (U)on 11-04-2024 Bilirubin, UA Negative Negative - 4(70) +++ mg/dL [facility] Blood, UA Negative Negative - 50 Alex/mcL [facility] Clarity, UA Clear [facility] Color, UA Yellow [facility] Glucose, UA Negative Negative - 2000(110) ++++ mg/dL [facility] Interpretation and review of laboratory results Normal [facility] Ketones, UA Negative Negative - 160(16) ++++ mg/dL [facility] Leukocytes, UA Negative Negative - 500+++ Jodi/mcL [facility] Nitrite, UA Negative Negative - Positive [facility] pH, UA 6 5 - 9 [facility] Protein, UA Negative Negative - 2000(20) ++++ mg/dL [facility] Spec Grav, UA 1.015 1 - 1.03 [facility] Urobilinogen, UA 0.2 0.2 - 12 mg/dL [facility] US OB BPP W NON-STRESS on 10-29-2024 [place] [address] Ultrasound Report Signed Patient: BEULAH MURPHY MR#: [id number] : 1990 Acct:[id number] Age/Sex: 33 / F ADM Date: 10/29/24 Loc: [facility] 250-[address]: Theodore Campbell D.O. Ordering Physician: Theodore Campbell D.O. Date of Service: 10/29/24 Procedure(s): US OB BPP w non-stress Accession Number(s): [id number] cc: Theodore Campbell D.O.; Physician,Non-Staff M.Dario [facility] [place] [address] Patient Name: BEULAH MURPHY MRN: [facility]:[id number] date: 1990 Sex: F Assigned Patient Location: [facility] Current Patient Location: [facility] Accession/Order Number: [id number] Exam Date: 10/29/2024 09:55 Report Date: 10/29/2024 09:56 At the request of: THEODORE CAMPBELL DO Procedure: US OB BPP w non-stress Biophysical profile. Reason for exam: Excessive growth COMPARISON: 10/22/2024 TECHNIQUE: Transabdominal imaging of the gravid uterus was obtained. FINDINGS: The curing supervisor reports a BPP of 8 out of 8. FRANK is normal at 13.3 cm. heart rate 135 bpm. US/US OB BPP w non-stress IMPRESSION: BPP 8 out of 8. Impression dictated by: Dario Kim Jr.O. 10/29/2024 9:56 AM Dictation Location: [place] [address] Electronically authenticated by: [id number] Y Date: 10/29/2024 09:56 Dictated By: Campos Hall M.D. Signed By: 10/29/2459 DD/ 5 TD/TT: Kiln Stoker: [facility] Radiology, Radiologist, - 10/29/2024 [place] [address] Ultrasound Report Signed Patient: BEULAH MURPHY MR#: [id number] : 1990 Acct:[id number] Age/Sex: 33 / F ADM Date: 10/29/24 Loc: [facility] 250-[address]: Theodore Campbell D.O. Ordering Physician: Theodore Campbell D.O. Date of Service: 10/29/24 Procedure(s): US OB BPP w non-stress Accession Number(s): [id number] cc: Theodore Campbell D.O.; Physician,Non-Staff Hussein [facility] [place] [address] Patient Name: BEULAH MURPHY MRN: [facility]:[id number] date: 1990 Sex: F Assigned Patient Location: [facility] Current Patient Location: [facility] Accession/Order Number: [id number] Exam Date: 10/29/2024 09:55 Report Date: 10/29/2024 09:56 At the request of: THEODORE CAMPBELL DO Procedure: US OB BPP w non-stress Biophysical profile. Reason for exam: Excessive growth COMPARISON: 10/22/2024 TECHNIQUE: Transabdominal imaging of the gravid uterus was obtained. FINDINGS: The curing supervisor reports a BPP of 8 out of 8. FRANK is normal at 13.3 cm. heart rate 135 bpm. US/US OB BPP w non-stress IMPRESSION: BPP 8 out of 8. Impression dictated by: Campos Hall Jr., D.O. 10/29/2024 9:56 AM Dictation Location: [place] [address] Electronically authenticated by: [id number] Y Date: 10/29/2024 09:56 Dictated By: Campos Hall M.D. Signed By: 10/29/24 0959 DD/ TD/TT: Kiln Stoker: [facility] Radiology Study observation (narrative) [facility] US OB BPP W NON-STRESS Ordered By: Radiologist Radiology on 10-29-2024 [facility] Work Phone: Urinalysis macro (dipstick) panel (U)on 10-28-2024 Bilirubin, UA Negative Negative - 4(70) +++ mg/dL [facility] Blood, UA Negative Negative - 50 Alex/mcL [facility] Clarity, UA Clear [facility] Color, UA Yellow [facility] Glucose, UA Negative Negative - 2000(110) ++++ mg/dL [facility] Interpretation and review of laboratory results Normal [facility] Ketones, UA Negative Negative - 160(16) ++++ mg/dL [facility] Leukocytes, UA Negative Negative - 500+++ Jodi/mcL [facility] Nitrite, UA Negative Negative - Positive [facility] pH, UA 5.5 5 - 9 [facility] Protein, UA Negative Negative - 2000(20) ++++ mg/dL [facility] Spec Grav, UA 1.02 1 - 1.03 [facility] Urobilinogen, UA 1.0 0.2 - 12 mg/dL [facility] US OB BPP W NON-STRESS on 10-22-2024 [place] [address] Ultrasound Report Signed Patient: BEULAH MURPHY MR#: [id number] : 1990 Acct:[id number] Age/Sex: 33 / F ADM Date: 10/22/24 Loc: [facility] 254-[address]: Theodore Campbell D.O. Ordering Physician: Theodore Campbell D.O. Date of Service: 10/22/24 Procedure(s): US OB BPP w non-stress Accession Number(s): [id number] cc: Theodore Campbell D.O.; Physician,Non-Staff [facility] [place] [id number] Patient Name: BEULAH MURPHY MRN: [facility]:[id number] date: 1990 Sex: F Assigned Patient Location: [facility] Current Patient Location: [facility] Accession/Order Number: [id number] Exam Date: 10/22/2024 10:02 Report Date: 10/22/2024 [...] Torre M.D. 10/22/2024 10:04 AM Dictation Location: [place] [address] Electronically authenticated by: [id number] Y Date: 10/22/2024 10:04 Dictated By: Alexus De La Torre M.D. Signed By: 10/22/24 1007 DD/ 1004 TD/TT: Kiln Stoker: [facility] Radiology, Radiologist, MD - 10/22/2024 [place] [address] Ultrasound Report Signed Patient: BEULAH MURPHY MR#: [id number] : 1990 Acct:[id number] Age/Sex: 33 / F ADM Date: 10/22/24 Loc: [facility] 254-[address]: Theodore Campbell D.O. Ordering Physician: Theodore Campbell D.O. Date of Service: 10/22/24 Procedure(s): US OB BPP w non-stress Accession Number(s): [id number] cc: Theodore Campbell D.O.; Physician,Non-Staff [place] [address] Patient Name: BEULAH MURPHY MRN: [facility]:[id number] date: 1990 Sex: F Assigned Patient Location: [facility] Current Patient Location: [facility] Accession/Order Number: [id number] Exam Date: 10/22/2024 10:02 Report Date: 10/22/2024 [...] Torre M.D. 10/22/2024 10:04 AM Dictation Location: [place] [address] Electronically authenticated by: [id number] Y Date: 10/22/2024 10:04 Dictated By: Alexus De La Torre M.D. Signed By: 10/22/24 1007 DD/ 1004 TD/TT: Kiln Stoker: [facility] Radiology Study observation (narrative) [facility] US OB BPP W NON-STRESS Ordered By: Radiologist Radiology on 10-22-2024 [facility] Work Phone: Urinalysis macro (dipstick) panel (U)on 10-21-2024 Bilirubin, UA Negative Negative - 4(70) +++ mg/dL [facility] Blood, UA Negative Negative - 50 Alex/mcL [facility] Clarity, UA Clear [facility] Color, UA Yellow [facility] Glucose, UA Negative Negative - 2000(110) ++++ mg/dL [facility] Interpretation and review of laboratory results Normal [facility] Ketones, UA Negative Negative - 160(16) ++++ mg/dL [facility] Leukocytes, UA Negative Negative - 500+++ Jodi/mcL [facility] Nitrite, UA Negative Negative - Positive [facility] pH, UA 6.5 5 - 9 [facility] Protein, UA Negative Negative - 1999(20) ++++ mg/dL [facility] Spec Grav, UA 1.01 1 - 1.03 [facility] Urobilinogen, UA 0.2 0.2 - 12 mg/dL [facility] US OB BPP W NON-STRESS on 10-16-2024 [place] [address] Ultrasound Report Signed Patient: BEULAH MURPHY MR#: [id number] : 1990 Acct:[id number] Age/Sex: 33 / F ADM Date: 10/15/24 Loc: US Attending Dr: Theodore Campbell D.O. Ordering Physician: Theodore Campbell D.O. Date of Service: 10/15/24 Procedure(s): US OB BPP w non-stress Accession Number(s): [id number] cc: Theodore Campbell D.O.; Physician,Non-Staff [facility] [place] [id number] Patient Name: BEULAH MURPHY MRN: [facility]:[id number] date: 1990 Sex: F Assigned Patient Location: Current Patient Location: Accession/Order Number: [id number] Exam Date: 10/16/2024 07:14 Report Date: 10/16/2024 [...] Torre M.D. 10/16/2024 7:15 AM Dictation Location: [place] [address] Electronically authenticated by: [id number] Y Date: 10/16/2024 07:15 Dictated By: Alexus De La Torre M.D. Signed By: 10/16/24716 DD/ 4 TD/TT: Kiln Stoker: [facility] Radiology, Radiologist, MD - 10/16/2024 [place] [address] Ultrasound Report Signed Patient: BEULAH MURPHY MR#: [id number] : 1990 Acct:[id number] Age/Sex: 33 / F ADM Date: 10/15/24 Loc: US Attending Dr: Theodore Campbell D.O. Ordering Physician: Theodore Campbell D.O. Date of Service: 10/15/24 Procedure(s): US OB BPP w non-stress Accession Number(s): [id number] cc: Theodore Campbell D.O.; Physician,Non-Staff [place] [address] Patient Name: BEULAH MURPHY MRN: [facility]:[id number] date: 1990 Sex: F Assigned Patient Location: Current Patient Location: Accession/Order Number: [id number] Exam Date: 10/16/2024 07:14 Report Date: 10/16/2024 [...] Torre M.D. 10/16/2024 7:15 AM Dictation Location: [place] [address] Electronically authenticated by: [id number] Y Date: 10/16/2024 07:15 Dictated By: Alexus De La Torre M.D. Signed By: 10/16/24716 DD/ 4 TD/TT: Kiln Stoker: [facility] Radiology Study observation (narrative) [facility] OB BPP W NON-STRESS Ordered By: Radiologist Radiology on 10-16-2024 [facility] Work Phone: US OB FOLLOW UP TRANSABDOMIN [...] UA Negative Negative - 4(70) +++ mg/dL [facility] Blood, UA Negative Negative - 50 Alex/mcL [facility] Clarity, UA Cloudy [facility] Color, UA Yellow [facility] Glucose, UA Negative Negative - 2000(110) ++++ mg/dL [facility] Interpretation and review of laboratory results Normal [facility] Ketones, UA Negative Negative - 160(16) ++++ mg/dL [facility] Leukocytes, UA Negative Negative - 500+++ Jodi/mcL [facility] Nitrite, UA Negative Negative - Positive [facility] pH, UA 6.5 5 - 9 [facility] Protein, UA Negative Negative - 1999(20) ++++ mg/dL [facility] Spec Grav, UA 1.01 1 - 1.03 [facility] Urobilinogen, UA 0.2 0.2 - 12 mg/dL [facility] US OB BPP W NON-STRESS on 10-09-2024 [place] [address] Ultrasound Report Signed Patient: BEULAH MURPHY MR#: [id number] : 1990 Acct:[id number] Age/Sex: 33 / F ADM Date: 10/08/24 Loc: US Attending Dr: Theodore Campbell D.O. Ordering Physician: Theodore Campbell D.O. Date of Service: 10/08/24 Procedure(s): US OB BPP w non-stress Accession Number(s): [id number] cc: Theodore Campbell D.O.; Physician,Non-Staff M.D. [facility] [place] [address] Patient Name: BEULAH MURPHY MRN: [facility]:[id number] date: 1990 Sex: F Assigned Patient Location: US Current Patient Location: Accession/Order Number: [id number] Exam Date: 10/09/2024 07:51 Report Date: 10/09/2024 [...] Torre M.D. 10/09/2024 7:52 AM Dictation Location: [place] [address] Electronically authenticated by: [id number] Y Date: 10/09/2024 07:52 Dictated By: Alexus De La Torre M.D. Signed By: 10/09/24 0945 DD/ 0752 TD/TT: Kiln Stoker: [facility] Radiology, Radiologist, MD - 10/09/2024 [place] [address] Ultrasound Report Signed Patient: BEULAH MURPHY MR#: [id number] : 1990 Acct:[id number] Age/Sex: 33 / F ADM Date: 10/08/24 Loc: US Attending Dr: Theodore Campbell D.O. Ordering Physician: Theodore Campbell D.O. Date of Service: 10/08/24 Procedure(s): US OB BPP w non-stress Accession Number(s): [id number] cc: Theodore Campbell D.O.; Physician,Non-Staff [facility] The [address] [id number] Patient Name: BEULAH MURPHY MRN: [facility]:[id number] date: 1990 Sex: F Assigned Patient Location: US Current Patient Location: Accession/Order Number: [id number] Exam Date: 10/09/2024 07:51 Report Date: 10/09/2024 [...] Torre M.D. 10/09/2024 7:52 AM Dictation Location: [place] [address] Electronically authenticated by: [id number] Y Date: 10/09/2024 07:52 Dictated By: Alexus De La Torre M.D. Signed By: 10/09/24 0945 DD/ 0752 TD/TT: Kiln Stoker: [facility] Radiology Study observation (narrative) [facility] US OB BPP W NON-STRESS Ordered By: Radiologist Radiology on 10-09-2024 [facility] [employer] Work Phone: US OB BPP W NON-STRESS on 10-02-2024 [place] [address] Ultrasound Report Signed Patient: BEULAH MURPHY MR#: [id number] : 1990 Acct:[id number] Age/Sex: 33 / F ADM Date: 10/01/24 Loc: US Attending Dr: Theodore Campbell D.O. Ordering Physician: Theodore Campbell D.O. Date of Service: 10/01/24 Procedure(s): US OB BPP w non-stress Accession Number(s): [id number] cc: Theodore Campbell D.O.; Physician,Non-Staff Hussein The [address] [address] Patient Name: BEULAH MURPHY MRN: [facility]:[id number] date: 1990 Sex: F Assigned Patient Location: [facility] Current Patient Location: Accession/Order Number: [id number] Exam Date: 10/02/2024 08:04 Report Date: 10/02/2024 [...] Torre M.D. 10/02/2024 8:07 AM Dictation Location: [place] [address] Electronically authenticated by: [id number] Y Date: 10/02/2024 08:07 Dictated By: Alexus De La Torre M.D. Signed By: 10/02/24 0810 DD/ 08 TD/TT: Kiln Stoker: [facility] Radiology, Radiologist, MD - 10/02/2024 [place] [address] Ultrasound Report Signed Patient: BEULAH MURPHY MR#: [id number] : 1990 Acct:[id number] Age/Sex: 33 / F ADM Date: 10/01/24 Loc: US Attending Dr: Theodore Campbell D.O. Ordering Physician: Theodore Campbell D.O. Date of Service: 10/01/24 Procedure(s): US OB BPP w non-stress Accession Number(s): [id number] cc: Theodore Campbell D.O.; Physician,Non-Staff [place] [address] Patient Name: BEULAH MURPHY MRN: [facility]:[id number] date: 1990 Sex: F Assigned Patient Location: [facility] Current Patient Location: Accession/Order Number: [id number] Exam Date: 10/02/2024 08:04 Report Date: 10/02/2024 [...] Torre M.D. 10/02/2024 8:07 AM Dictation Location: [place] [address] Electronically authenticated by: [id number] Y Date: 10/02/2024 08:07 Dictated By: Alexus De La Torre M.D. Signed By: 10/02/24 0810 DD/ 08 TD/TT: Kiln Stoker: [facility] Radiology Study observation (narrative) [facility] OB BPP W NON-STRESS Ordered By: Radiologist Radiology on 10-02-2024 [facility] Work Phone: Urinalysis macro (dipstick) panel (U)on 09-30-2024 Bilirubin, UA Negative Negative - 4(70) +++ mg/dL [facility] Blood, UA Negative Negative - 50 Alex/mcL [facility] Clarity, UA Clear [facility] Color, UA Yellow [facility] Glucose, UA Negative Negative - 2000(110) ++++ mg/dL [facility] Interpretation and review of laboratory results Abnormal [facility] Ketones, UA Positive Negative - 160(16) ++++ mg/dL [facility] Comment on above: 15mg/dL Leukocytes, UA Negative Negative - 500+++ Jodi/mcL [facility] Nitrite, UA Negative Negative - Positive [facility] pH, UA 6 5 - 9 [facility] Protein, UA Negative Negative - 2000(20) ++++ mg/dL [facility] Spec Grav, UA 1.02 1 - 1.03 [facility] Urobilinogen, UA 0.2 0.2 - 12 mg/dL [facility] US OB BPP W NON-STRESS on 09-25-2024 [place] [address] Ultrasound Report Signed Patient: BEULAH MURPHY MR#: [id number] : 1990 Acct:[id number] Age/Sex: 33 / F ADM Date: 09/24/24 Loc: US Attending Dr: Theodore Campbell D.O. Ordering Physician: Theodore Campbell D.O. Date of Service: 09/24/24 Procedure(s): US OB BPP w non-stress Accession Number(s): [id number] cc: Theodore Campbell D.O.; Physician,Non-Staff M.DAp The [address] [address] Patient Name: BEULAH MURPHY MRN: [facility]:[id number] date: 1990 Sex: F Assigned Patient Location: Current Patient Location: Accession/Order Number: [id number] Exam Date: 09/25/2024 07:56 Report Date: 09/25/2024 [...] Swartz M.D. 09/25/2024 7:58 AM Dictation Location[facility] [employer] Electronically authenticated by: [id number] Y Date: 09/25/2024 07:58 Dictated By: Manuel Swartz D.O. Signed By: 09/25/24 0800 DD/ 0758 TD/TT: Kiln Stoker: [facility] Radiology, Radiologist, MD - 09/25/2024 [place] [address] Ultrasound Report Signed Patient: BEULAH MURPHY MR#: [id number] : 1990 Acct:[id number] Age/Sex: 33 / F ADM Date: 09/24/24 Loc: US Attending Dr: Theodore Campbell D.O. Ordering Physician: Theodore Campbell D.O. Date of Service: 09/24/24 Procedure(s): US OB BPP w non-stress Accession Number(s): [id number] cc: Theodore Campbell D.O.; Physician,Non-Staff [facility] The [address] [id number] Patient Name: BEULAH MURPHY MRN: [facility]:[id number] date: 1990 Sex: F Assigned Patient Location: US Current Patient Location: Accession/Order Number: [id number] Exam Date: 09/25/2024 07:56 Report Date: 09/25/2024 [...] Swartz M.D. 09/25/2024 7:58 AM Dictation Location: [employer] Electronically authenticated by: [id number] Y Date: 09/25/2024 07:58 Dictated By: Manuel Swartz D.O. Signed By: 09/25/24 0800 DD/ 0758 TD/TT: Kiln Stoker: [facility] Radiology Study observation (narrative) [facility] US OB BPP W NON-STRESS Ordered By: Radiologist Radiology on 09-25-2024 [facility] [employer] Work Phone: US OB FOLLOW UP TRANSABDOMIN [...] II, MD, PHD at 18-Sep-2024 08:23:43 AM [facility] Normal Not Available Comment on above: Order Comment: US OB SCAN FOR GROWTH Estimated Date of Delivery: 11/17/24 Gestational Age as of 08/27/2024: 28w2d Urinalysis macro (dipstick) panel (U)on 09-17-2024 Bilirubin, UA Negative Negative - 4(70) +++ mg/dL [facility] Blood, UA Negative Negative - 50 Alex/mcL [facility] Clarity, UA Clear [facility] Color, UA Yellow [facility] Glucose, UA Negative Negative - 1999(110) ++++ mg/dL [facility] Interpretation and review of laboratory results Normal [facility] Ketones, UA Negative Negative - 160(16) ++++ mg/dL [facility] Leukocytes, UA Negative Negative - 500+++ Jodi/mcL [facility] Nitrite, UA Negative Negative - Positive [facility] pH, UA 7 5 - 9 [facility] Protein, UA Negative Negative - 1999(20) ++++ mg/dL [facility] Spec Grav, UA 1.01 1 - 1.03 [facility] Urobilinogen, UA 0.2 0.2 - 12 mg/dL [facility] HEMOGLOBIN A1Con 025 Glucose [Mass/Vol] 114 mg/dL [facility] HbA1c (Bld) [Mass fraction] 5.6 % 4.5 - 6.2 % [facility] Comment on above: ADA RECOMMENDED LIMI T 4.0 - 6.0 ADA THERAPEUTIC TARGET < 7.0 ACTION SUGGESTED > 7.0 [facility] Urinalysis macro (dipstick) panel (U)Ordered By: Asha Pereira on 08-27-2024 Bilirubin, UA Negative Negative - 4(70) +++ mg/dL [facility] Work Phone: Blood, UA Negative Negative - 50 Alex/mcL [facility] Work Phone: Clarity, UA Clear [facility] Work Phone: Color, UA Yellow [facility] Work Phone: Glucose, UA Negative Negative - 2000(110) ++++ mg/dL [facility] [employer] Work Phone: Interpretation and review of laboratory results Normal [facility] [employer] Work Phone: Ketones, UA Negative Negative - 160(16) ++++ mg/dL [facility] [employer] Work Phone: Leukocytes, UA Negative Negative - 500+++ Jodi/mcL [facility] Work Phone: Nitrite, UA Negative Negative - Positive [facility] [employer] Work Phone: pH, UA 6.5 5 - 9 [facility] Work Phone: Protein, UA Negative Negative - 1999(20) ++++ mg/dL [facility] [employer] Work Phone: Spec Grav, UA 1.015 1 - 1.03 [facility] [employer] Work Phone: Urobilinogen, UA 0.2 0.2 - 12 mg/dL [facility] [employer] Work Phone: [facility] [employer] Work Phone: US OB LIMITED 1+ FETUSESon [...] II, MD, PHD at 01-Aug-2024 11:20:36 PM [facility] Normal Not Available Comment on above: Order Comment: US OB INCOMPLETE ANATOMY Estimated Date of Delivery: 11/17/24 Gestational Age as of 07/08/2024: 21w1d RECURRENT VAGINITIS (HTRX)on 06-04-2024 ATOPOBIUM VAGINAE 0 [facility] ATOPOBIUM VAGINAE Not detected [facility] BVAB 2,3 (BACTERIAL VAGINOSIS ASSOCIATED BACTERIA 2, 3); MOBILUNCUS SPP 0 [facility] BVAB 2,3 (BACTERIAL VAGINOSIS ASSOCIATED BACTERIA 2, 3); MOBILUNCUS SPP Not detected [facility] NICA ALBICANS, PARAPSILOSIS, TROPICALIS 0 [facility] Healthcare NICA ALBICANS, PARAPSILOSIS, TROPICALIS Not detected [facility] NICA GLABRATA 0 [facility] NICA GLABRATA Not detected [facility] NICA KRUSEI 0 [facility] NICA KRUSEI Not detected [facility] CHLAMYDIA TRACHOMATIS 0 [facility] CHLAMYDIA TRACHOMATIS Not detected [facility] GARDNERELLA VAGINALIS 29.376 Abnormal [facility] GARDNERELLA VAGINALIS Detected Abnormal [facility] Interpretation and review of laboratory results Abnormal [facility] MEGASPHAERA (TYPES 1, 2) 0 [facility] MEGASPHAERA (TYPES 1, 2) Not detected [facility] MYCOPLASMA GENITALIUM 0 [facility] MYCOPLASMA GENITALIUM Not detected [facility] NEISSERIA GONORRHOEAE 0 [facility] NEISSERIA GONORRHOEAE Not detected [facility] TRICHOMONAS VAGINALIS 0 [facility] TRICHOMONAS VAGINALIS Not detected [facility] US OB 14+ WEEKS ANATOMY SCAN on [...] II, MD, PHD at 02-Jul-2024 09:56:12 AM [facility] Normal Not Available Comment on above: Order Comment: US OB ANATOMY SINGLE W US OB CERVICAL LENGTH Estimated Date of Delivery: 11/17/24 Gestational Age as of 06/03/2024: 16w1d Urinalysis macro (dipstick) panel (U)on 06-03-2024 Bilirubin, UA Negative Negative - 4(70) +++ mg/dL [facility] Blood, UA Positive Negative - 50 Alex/mcL [facility] Comment on above: trace-intact Clarity, UA Clear [facility] Color, UA Yellow [facility] Glucose, UA Negative Negative - 1999(110) ++++ mg/dL [facility] Interpretation and review of laboratory results Abnormal [facility] Ketones, UA Positive Negative - 160(16) ++++ mg/dL [facility] Comment on above: 15mg/dL Leukocytes, UA Negative Negative - 500+++ Jodi/mcL [facility] Nitrite, UA Negative Negative - Positive [facility] pH, UA 5.5 5 - 9 [facility] Protein, UA Negative Negative - 1999(20) ++++ mg/dL [facility] Spec Grav, UA 1.02 1 - 1.03 [facility] Urobilinogen, UA 0.2 0.2 - 12 mg/dL [facility] Urinalysis macro (dipstick) panel (U)on 05-02-2024 Bilirubin, UA Trace Negative - 4(70) +++ mg/dL [facility] Blood, UA Negative Negative - 50 Alex/mcL [facility] Clarity, UA Clear [facility] Color, UA Yellow [facility] Glucose, UA Negative Negative - 1999(110) ++++ mg/dL [facility] Interpretation and review of laboratory results Abnormal [facility] Ketones, UA Positive Negative - 160(16) ++++ mg/dL [facility] Leukocytes, UA Negative Negative - 500+++ Jodi/mcL [facility] Nitrite, UA Negative Negative - Positive [facility] pH, UA 6 5 - 9 [facility] Protein, UA Positive Negative - 1999(20) ++++ mg/dL [facility] Spec Grav, UA 1.03 1 - 1.03 [facility] Urobilinogen, UA 0.2 0.2 - 12 mg/dL [facility] ALL CBC WITH AUTO DIFFon BASOPHILS ABSOLUTE AUTO 0 [facility] Basophils/100 WBC (Bld) 0.4 % 0.2 - 2.0 % [facility] Eosinophils/100 WBC (Bld) 0.6 % Low 0.9 - 7.0 % [facility] Erythrocyte distribution width (RBC) [Ratio] 14.1 % 11.0 - 15.0 % [facility] Hematocrit (Bld) [Volume fraction] 40.6 % 36.0 - 48.0 % [facility] Hemoglobin (Bld) [Mass/Vol] 13.1 g/dL 12.0 - 16.0 g/dL [facility] IMMATURE GRANULOCYTES ABS AUTO 0.03 [facility] Immature granulocytes/100 WBC (Bld) 0.3 % 0.0 - 0.5 % [facility] Interpretation and review of laboratory results Abnormal [facility] LYMPHOCYTES ABSOLUTE AUTO 1.9 [facility] Lymphocytes/100 WBC (Bld) 19.1 % Low 20.5 - 60.0 % [facility] MCH (RBC) [Entitic mass] 27.9 pg 26.7 - 34.0 pg [facility] MCHC (RBC) [Mass/Vol] 32.3 g/dL 29.9 - 35.2 g/dL [facility] MCV (RBC) [Entitic vol] 86.6 fL 81.0 - 99.0 fL [facility] MONOCYTES ABSOLUTE AUTO 0.5 [facility] Monocytes/100 WBC (Bld) 5.4 % 1.7 - 12.0 % [facility] NEUTROPHILS ABSOLUTE AUTO 7.4 High [facility] Neutrophils/100 WBC (Bld) 74.2 % 43.0 - 75.0 % [facility] Platelet mean volume (Bld) [Entitic vol] 9.3 fL Low 9.5 - 13.5 fL [facility] TBH EO # 0.1 [facility] PLT [address] [facility] RBC 4.69 [facility] WBC 9.9 [facility] US OB TRANSVAGINALon 025 US OB TRANSVAGINAL [...] x 3.6 cm (8 weeks, 0 days). [place] rump length is 1.8 cm (8 weeks, [...] (U) No Growth 2 Days PERFORMED BY: [address] [address] PATHOLOGIST LIVE TRUCK OPERATOR TOSHA PÉREZ M.D. Normal [facility] Comment on above: Performed By: #### C UU #### [address] [address] [facility] PREG QUANT HCGon 024 HCG QUANTITATIVE 7110 mIU/mL [facility] Healthcare Comment on above: 5-50 0.2-1 WEEK 50-500 1-2 WEEKS 100-5,000 2-3 WEEKS 500-10,000 3-4 WEEKS 1,000-50,000 4-5 WEEKS 10,000-100,000 5-6 WEEKS 15,000-200,000 6-8 WEEKS 10,000-100,000 2-[facility] 024 HCG QUANTITATIVE 5107 mIU/mL [facility] Healthcare Comment on above: 5-50 0.2-1 WEEK 50-500 1-2 WEEKS 100-5,000 2-3 WEEKS 500-10,000 3-4 WEEKS 1,000-50,000 4-5 WEEKS 10,000-100,000 5-6 WEEKS 15,000-200,000 6-8 WEEKS 10,000-100,000 2-3 MONTHS [facility] PREG QUANT HCGon 024 HCG QUANTITATIVE 2902 mIU/mL [facility] Healthcare Comment on above: 5-50 0.2-1 WEEK 50-500 1-2 WEEKS 100-5,000 2-3 WEEKS 500-10,000 3-4 WEEKS 1,000-50,000 4-5 WEEKS 10,000-100,000 5-6 WEEKS 15,000-200,000 6-8 WEEKS 10,000-100,000 2-3 MONTHS [facility] PREG QUANT HCGon 024 HCG QUANTITATIVE 1345 mIU/mL [facility] Comment on above: 5-50 0.2-1 WEEK 50-500 1-2 WEEKS 100-5,000 2-3 WEEKS 500-10,000 3-4 WEEKS 1,000-50,000 4-5 WEEKS 10,000-100,000 5-6 WEEKS 15,000-200,000 6-8 WEEKS 10,000-100,000 2-3 MONTHS [facility] PREG QUANT HCGon 024 HCG QUANTITATIVE 420 mIU/mL [facility] Comment on above: 5-50 0.2-1 WEEK 50-500 1-2 WEEKS 100-5,000 2-3 WEEKS 500-10,000 3-4 WEEKS 1,000-50,000 4-5 WEEKS 10,000-100,000 5-6 WEEKS 15,000-200,000 6-8 WEEKS 10,000-100,000 2-3 MONTHS [facility] PREG QUANT HCGon 024 HCG QUANTITATIVE 184 mIU/mL [facility] Comment on above: 5-50 0.2-1 WEEK 50-500 1-2 WEEKS 100-5,000 2-3 WEEKS 500-10,000 3-4 WEEKS 1,000-50,000 4-5 WEEKS 10,000-100,000 5-6 WEEKS 15,000-200,000 6-8 WEEKS 10,000-100,000 2-3 MONTHS [facility] PREG QUANT HCGon 024 HCG QUANTITATIVE 59 mIU/mL [facility] Comment on above: 5-50 0.2-1 WEEK 50-500 1-2 WEEKS 100-5,000 2-3 WEEKS 500-10,000 3-4 WEEKS 1,000-50,000 4-5 WEEKS 10,000-100,000 5-6 WEEKS 15,000-200,000 6-8 WEEKS 10,000-100,000 2-3 MONTHS [facility] ALL PROGESTERONEon 4 PROGESTERONE 9.3 ng/mL . [facility] Comment on above: Follicular phase 0.1 - 0.9 Luteal phase 1.8 - 23.9 Ovulation phase 0.1 - 12.0 First trimester 11.0 - 44.3 Second trimester 25.4 - 83.3 Third trimester 58.7 - 214.0 Postmenopausal 0.0 - 0.1 Performed at: [address] [id number] Head Of Training And Development: Josr Jarvis PhD, Phone: [phone] [facility] IGP,APTIMA HPV,AGE GDLNon AGE GDLN ACOG TESTING Note . [facility] Comment on above: TESTS RESULT FLAG UN ITS REF RANGE LAB Clinician Provided Cytology Information Source.............Cervix;Endocervix No. of containers..01 ThinPrep Vial Age Algo ACOG Jacinta... FLAG LEGEND: L-Low Normal,H-High Normal,LL-Alert Low,HH-Alert High <-Panic Low,>-Panic High,A-Abnormal,AA-Critical Abnormal Performed at: 01 =[address] [address] Stacey Tao MD, HPV APTIMA Negative Negative [facility] Comment on above: This nucleic acid am plification test detects fourteen high- risk HPV types (16,18,31,33,35,39,45,51,52,56,58,59,66,68) without differentiation. Performed at: =[address] [id number] Head Of Training And Development: Stacey Tao MD, Phone: [phone] Performed at: [address] [id number] Head Of Training And Development: Stacey Tao MD, Phone: [phone] IGP, APTIMA HPV, RFX 16/18,45 Note . [facility] Comment on above: TESTS RESULT FLAG U NITS REF RANGE LAB DIAGNOSIS: 02 NEGATIVE FOR INTRAEPITHELIAL LESION OR MALIGNANCY. Specimen adequacy: 02 Satisfactory for evaluation. Endocervical and/or squamous metaplastic cells (endocervical component) are present. Performed by: 02 Beulah Mancilla, Scraper Hand (ASCP) . 02 Note: Note 02 The [...] High,A-Abnormal,AA-Critical Abnormal Performed at: 02 [facility] [address] [place] [address] Stacey Tao MD, BRUSH-SPATULA CERVIX ENDOCERVIX [facility] DHEA-SULFATEon 08-23-2022 DHEA-Sulfate 352.0 ug/dL Normal 84.8-378.0 [facility] Comment on above: Performed By: #### L BCLH #### [facility] [address] [place] [address] Dr. Nam Keenan FSHon 08-23-2022 FSH 6.7 mIU/mL Normal [facility] Comment on above: Result Comment: Adul t Female: Follicular phase 3.5 - 12.5 Ovulation phase 4.7 - 21.5 Luteal phase 1.7 - 7.7 Postmenopausal 25.8 - 134.8 Performed By: #### L BCFSH #### [facility] [address] [place] [address] Dr. Nam Keenan LUTEINIZING HORMONE (LH)on 0 08-23-2022 LH 13.7 mIU/mL Normal [facility] Comment on above: Result Comment: Adul t Female: Follicular phase 2.4 - 12.6 Ovulation phase 14.0 - 95.6 Luteal phase 1.0 - 11.4 Postmenopausal 7.7 - 58.5 Performed By: #### L BCLH #### [facility] [address] [place] [address] Dr. Nam Keenan CBC AUTO DIFFon 08-22-2022 BASO # 0.1 103/ul Normal 0.0-0.1 [facility] Comment on above: Performed By: #### L BCLH #### [facility] [address] [place] [address] Dr. Nam Keenan Basophils/100 WBC (Bld) 0.7 % Normal 0.2-2.0 [facility] Comment on above: Performed By: #### L BCLH #### [facility] [address] [place] [address] Dr. Nam Keenan EO # 0.3 103/ul Normal 0.0-0.7 [facility] Comment on above: Performed By: #### L BCLH #### [facility] [address] [place] [address] Dr. Nam Keenan Eosinophils/100 WBC (Bld) 3.9 % Normal 0.9-7.0 [facility] Comment on above: Performed By: #### L BCLH #### [facility] [address] [place] [address] Dr. Nam Keenan Erythrocyte distribution width (RBC) [Ratio] 13.3 % Normal 11.0-15.0 [facility] Comment on above: Performed By: #### L BCLH #### [facility] [address] [place] [address] Dr. Nam Keenan Hematocrit (Bld) [Volume fraction] 38.7 % Normal 36.0-48.0 [facility] Comment on above: Performed By: #### L BCLH #### [facility] [address] [place] [address] Dr. Nam Keenan Hemoglobin (Bld) [Mass/Vol] 12.4 g/dL Normal 12.0-16.0 [facility] Comment on above: Performed By: #### L BCLH #### [facility] [address] [place] [address] Dr. Nam Keenan IG # 0.01 10e3/ul Normal 0.00-0.03 [facility] Comment on above: Performed By: #### L BCLH #### [facility] [address] [place] [address] Dr. Nam Keenan IG % 0.1 % Normal 0.0-0.5 [facility] Comment on above: Performed By: #### L BCLH #### [facility] [address] [place] [address] Dr. Nam Keenan LYMPH # 2.9 103/ul Normal 1.2-3.8 [facility] Comment on above: Performed By: #### L BCLH #### [facility] [address] [place] [address] Dr. Nam Keenan Lymphocytes/100 WBC (Bld) 34.4 % Normal 20.5-60.0 [facility] Comment on above: Performed By: #### L BCLH #### [facility] [address] [place] [address] Dr. Nam Keenan MANUAL DIFF REQ NO Normal [facility] Comment on above: Performed By: #### L BCLH #### [facility] [address] [address] [address] Nam Keenan MCH (RBC) [Entitic mass] 27.8 pg Normal 26.7-34.0 [facility] Comment on above: Performed By: #### L BCLH #### [facility] [address] [place] [address] Dr. Nam Keenan MCHC (RBC) [Mass/Vol] 32.0 g/dL Normal 29.9-35.2 [facility] Comment on above: Performed By: #### L BCLH #### [facility] [address] [place] [address] Dr. Nam Keenan MCV (RBC) [Entitic vol] 86.8 fL Normal 81.0-99.0 [facility] Comment on above: Performed By: #### L BCLH #### [facility] [address] [place] [address] Dr. Nam Keenan MONO # 0.6 103/ul Normal 0.3-0.8 [facility] Comment on above: Performed By: #### L BCL #### [facility] [address] [place] [address] Dr. Nam Keenan Monocytes/100 WBC (Bld) 6.7 % Normal 1.7-12.0 [facility] Comment on above: Performed By: #### L BCL #### [facility] [address] [place] [address] Dr. Nam Keenan NEUT # 4.6 103/ul Normal 1.4-6.5 [facility] Comment on above: Performed By: #### L BCLH #### [facility] [address] [place] [address] Dr. Nam Keenan Neutrophils/100 WBC (Bld) 54.2 % Normal 43.0-75.0 [facility] Comment on above: Performed By: #### L BCLH #### [facility] [address] [place] [address] Dr. Nam Keenan Platelet mean volume (Bld) [Entitic vol] 9.6 fL Normal 9.5-13.5 [facility] Comment on above: Performed By: #### L BCL #### [facility] [address] [address] [address] Nam Keenan PLT 335 103/ul Normal 150-450 [facility] Comment on above: Performed By: #### L BCL #### [facility] [address] [address] [address] Nam Keenan RBC 4.46 106/ul Normal 4.20-5.40 [facility] Comment on above: Performed By: #### L BCL #### [facility] [address] [address] [address] Nam Keenan WBC 8.5 103/ul Normal 4.0-11.0 [facility] Comment on above: Performed By: #### L AMY #### [facility] [address] [place] [address] Dr. Nam Keenan FREE T4on 08-22-2022 Free T4 [Mass/Vol] 1.14 ng/dL Normal 0.76-1.46 [facility] Comment on above: Performed By: #### L AMY #### [facility] [address] [place] [address] Dr. Nam Keenan GLYCOHEMOGLOBIN A1Con 2022 ADA RECOMMENDATION SEE BELOW Normal [facility] Comment on above: Result Comment: ADA RECOMMENDED LIMIT 4.0 - 6.0 ADA THERAPEUTIC TARGET < 7.0 ACTION SUGGESTED > 7.0 Performed By: #### A 1C #### [facility] [address] [place] [address] Dr. Nam Keenan Glucose [Mass/Vol] 97 mg/dL Normal [facility] Comment on above: Performed By: #### A 1C #### [facility] [address] [place] [address] Dr. Nam Keenan HbA1c (Bld) [Mass fraction] 5.0 % Normal 4.5-6.2 [facility] Comment on above: Performed By: #### A 1C #### [facility] [address] [place] [address] Dr. Nam Keenan PREG QUANT HCGon 08-22-2022 HCG QUANT <1 Normal [facility] Comment on above: Performed By: #### P REGQNT, TSH #### [facility] [address] [place] [address] Dr. Nam Keenan HCG RANGE SEE BELOW Normal [facility] Comment on above: Result Comment: 5-50 0.2-1 WEEK 50-500 1-2 WEEKS 100-5,000 2-3 WEEKS 500-10,000 3-4 WEEKS 1,000-50,000 4-5 WEEKS 10,000-100,000 5-6 WEEKS 15,000-200,000 6-8 WEEKS 10,000-100,000 2-3 MONTHS Performed By: #### P REGQNT, TSH #### [facility] [address] [place] [address] Dr. Nam Keenan TSHon 08-22-2022 TSH 2.026 uIU/mL Normal 0.358-3.740 [facility] Comment on above: Performed By: #### P REGQNT, TSH #### [facility] [address] [place] [address] Dr. Nam Keenan PREG QUANT HCGon 05-27-2022 HCG QUANT 3 mIU/mL Normal [facility] Comment on above: Performed By: #### P REGQNT #### [facility] [address] [place] [address] Dr. Nam Keenan HCG RANGE SEE BELOW Normal [facility] Comment on above: Result Comment: 5-50 0.2-1 WEEK 50-500 1-2 WEEKS 100-5,000 2-3 WEEKS 500-10,000 3-4 WEEKS 1,000-50,000 4-5 WEEKS 10,000-100,000 5-6 WEEKS 15,000-200,000 6-8 WEEKS 10,000-100,000 2-3 MONTHS Performed By: #### P REGQNT #### [facility] [address] [place] [address] Dr. Nam Keenan CBC AUTO DIFFon 05-22-2022 BASO # 0.1 103/ul Normal 0.0-0.1 [facility] Comment on above: Performed By: #### L BCLH #### [facility] [address] [address] [address] Nam Keenan Basophils/100 WBC (Bld) 0.7 % Normal 0.2-2.0 [facility] Comment on above: Performed By: #### L BCLH #### [facility] [address] [address] [address] Nam Keenan EO # 0.2 103/ul Normal 0.0-0.7 [facility] Comment on above: Performed By: #### L BCLH #### [facility] [address] [place] [address] Dr. Nam Keenan Eosinophils/100 WBC (Bld) 1.6 % Normal 0.9-7.0 [facility] Comment on above: Performed By: #### L BCLH #### [facility] [address] [place] [address] Dr. Nam Keenan Erythrocyte distribution width (RBC) [Ratio] 13.9 % Normal 11.0-15.0 [facility] Comment on above: Performed By: #### L BCL #### [facility] [address] [place] [address] Dr. Nam Keenan Hematocrit (Bld) [Volume fraction] 36.2 % Normal 36.0-48.0 [facility] Comment on above: Performed By: #### L BCL #### [facility] [address] [place] [address] Dr. Nam Keenan Hemoglobin (Bld) [Mass/Vol] 12.1 g/dL Normal 12.0-16.0 [facility] Comment on above: Performed By: #### L BCLH #### [facility] [address] [place] [address] Dr. Nam Keenan IG # 0.03 10e3/ul Normal 0.00-0.03 [facility] Comment on above: Performed By: #### L BCLH #### [facility] [address] [place] [address] Dr. Nam Keenan IG % 0.3 % Normal 0.0-0.5 [facility] Comment on above: Performed By: #### L BCLH #### [facility] [address] [address] [address] Nam Keenan LYMPH # 3.9 103/ul Critically high 1.2-3.8 [facility] Comment on above: Performed By: #### L BCLH #### [facility] [address] [address] [address] Nam Keenan Lymphocytes/100 WBC (Bld) 38.0 % Normal 20.5-60.0 [facility] Comment on above: Performed By: #### L BCLH #### [facility] [address] [address] [address] Nam Keenan MANUAL DIFF REQ NO Normal [facility] Comment on above: Performed By: #### L BCLH #### [facility] [address] [place] [address] Dr. Nam Keenan MCH (RBC) [Entitic mass] 28.0 pg Normal 26.7-34.0 [facility] Comment on above: Performed By: #### L BCLH #### [facility] [address] [place] [address] Dr. Nam Keenan MCHC (RBC) [Mass/Vol] 33.4 g/dL Normal 29.9-35.2 [facility] Comment on above: Performed By: #### L BCLH #### [facility] [address] [place] [address] Dr. Nam Keenan MCV (RBC) [Entitic vol] 83.8 fL Normal 81.0-99.0 [facility] Comment on above: Performed By: #### L BCLH #### [facility] [address] [place] [address] Dr. Nam Keenan MONO # 0.8 103/ul Normal 0.3-0.8 [facility] Comment on above: Performed By: #### L BCLH #### [facility] [address] [place] [address] Dr. Nam Keenan Monocytes/100 WBC (Bld) 7.6 % Normal 1.7-12.0 [facility] Comment on above: Performed By: #### L BCLH #### [facility] [facility] [address] [place] [address] Dr. Nam Keenan NEUT # 5.4 103/ul Normal 1.4-6.5 [facility] Comment on above: Performed By: #### L BCLH #### [facility] [address] [place] [address] Dr. Nam Keenan Neutrophils/100 WBC (Bld) 51.8 % Normal 43.0-75.0 [facility] Comment on above: Performed By: #### L BCLH #### [facility] [address] [place] [address] Dr. Nam Keenan Platelet mean volume (Bld) [Entitic vol] 9.1 fL Critically low 9.5-13.5 [facility] Comment on above: Performed By: #### L BCLH #### [facility] [address] [place] [address] Dr. Nam Keenan PLT 342 103/ul Normal 150-450 [facility] Comment on above: Performed By: #### L BCLH #### [facility] [address] [place] [address] Dr. Nam Keenan RBC 4.32 106/ul Normal 4.20-5.40 [facility] Comment on above: Performed By: #### L BCLH #### [facility] [address] [place] [address] Dr. Nam Keenan WBC 10.3 103/ul Normal 4.0-11.0 [facility] Comment on above: Performed By: #### L BCLH #### [facility] [address] [place] [address] Dr. Nam Keenan PROF CHEM 8 (BAS METB)on Anion gap [Moles/Vol] 12.1 mmol/L Normal [facility] Comment on above: Performed By: #### B MP #### [facility] [address] [place] [address] Dr. Nam Keenan Calcium [Mass/Vol] 8.9 mg/dL Normal 8.5-10.1 [facility] Comment on above: Performed By: #### B MP #### [facility] [address] [address] [address] Nam Keenan Chloride [Moles/Vol] 105 mmol/L Normal 98-107 [facility] Comment on above: Performed By: #### B MP #### [facility] [address] [address] [address] Nam Keenan CO2 [Moles/Vol] 27.4 mmol/L Normal 21.0-32.0 [facility] Comment on above: Performed By: #### B MP #### [facility] [address] [address] [address] Nam Keenan Creatinine [Mass/Vol] 0.66 mg/dL Normal 0.55-1.02 [facility] Comment on above: Performed By: #### B MP #### [facility] [address] [place] [address] Dr. Nam Keenan EGFR-AF AFGHAN >60 Normal >=60 [facility] Comment on above: Performed By: #### B MP #### [facility] [address] [address] [address] Nam Keenan EGFR-NON AF AFGHAN >60 Normal >=60 [facility] Comment on above: Performed By: #### B MP #### [facility] [address] [address] [address] Nam Keenan Glucose [Mass/Vol] 105 mg/dL Normal 74-106 [facility] Comment on above: Performed By: #### B MP #### [facility] [address] [address] [address] Nam Keenan Potassium [Moles/Vol] 3.5 mmol/L Normal 3.5-5.1 [facility] Comment on above: Performed By: #### B MP #### [facility] [address] [address] [address] Nam Keenan Sodium [Moles/Vol] 141 mmol/L Normal 136-145 [facility] Comment on above: Performed By: #### B MP #### [facility] [address] [address] [address] Nam Keenan Urea nitrogen [Mass/Vol] 7.0 mg/dL Normal 7.0-18.0 [facility] Comment on above: Performed By: #### B #### [facility] [address] [place] [address] Dr. Nam Keenan Urea nitrogen/Creatinine [Mass ratio] 10.6 mg/mg Normal [facility] Comment on above: Performed By: #### B MP #### [facility] [address] [place], [place] [address] Dr. Nam Keenan PREG QUANT HCGon 05-17-2022 HCG QUANT 532 mIU/mL Normal [facility] Comment on above: Performed By: #### L [facility] #### [facility] [address] [place] [address] Dr. Nam Keenan HCG RANGE SEE BELOW Normal [facility] Comment on above: Result Comment: 5-50 0.2-1 WEEK 50-500 1-2 WEEKS 100-5,000 2-3 WEEKS 500-10,000 3-4 WEEKS 1,000-50,000 4-5 WEEKS 10,000-100,000 5-6 WEEKS 15,000-200,000 6-8 WEEKS 10,000-100,000 2-3 MONTHS Performed By: #### L [facility] #### [facility] [address] [place] [address] Dr. Nam Keenan US PREG TVon 05-13-2022 [...] by: ROOSEVELT LOPEZ Date: 2022-05-13 13:02 Normal [facility] PREG QUANT HCGon 04-28-2022 HCG QUANT 139 mIU/mL Normal [facility] Comment on above: Performed By: #### L BCL #### [facility] [address] [place] [address] Dr. Nam Keenan HCG RANGE SEE BELOW Normal [facility] Comment on above: Result Comment: 5-50 0.2-1 WEEK 50-500 1-2 WEEKS 100-5,000 2-3 WEEKS 500-10,000 3-4 WEEKS 1,000-50,000 4-5 WEEKS 10,000-100,000 5-6 WEEKS 15,000-200,000 6-8 WEEKS 10,000-100,000 2-3 MONTHS Performed By: #### L AMYH #### [facility] [address] [place] [address] Dr. Nam Keenan PREG QUANT HCGon 04-26-2022 HCG QUANT 50 mIU/mL Normal [facility] Comment on above: Performed By: #### P REGQNT #### [facility] [address] [place] [address] Dr. Nam Keenan HCG RANGE SEE BELOW Normal [facility] Comment on above: Result Comment: 5-50 0.2-1 WEEK 50-500 1-2 WEEKS 100-5,000 2-3 WEEKS 500-10,000 3-4 WEEKS 1,000-50,000 4-5 WEEKS 10,000-100,000 5-6 WEEKS 15,000-200,000 6-8 WEEKS 10,000-100,000 2-3 MONTHS Performed By: #### P REGQNT #### [facility] [address] [place] [address] Dr. Nam Keenan PROGESTERONEon 04-19-2022 Progesterone 12.6 ng/mL Normal [facility] Comment on above: Result Comment: Foll icular phase 0.1 - 0.9 Luteal phase 1.8 - 23.9 Ovulation phase 0.1 - 12.0 First trimester 11.0 - 44.3 Second trimester 25.4 - 83.3 Third trimester 58.7 - 214.0 Postmenopausal 0.0 - 0.1 Performed By: #### P ROGES #### [facility] [address] [place] [address] Dr. Nam Keenan PROGESTERONEon 04-16-2022 Progesterone 9.5 ng/mL Normal [facility] Comment on above: Result Comment: Foll icular phase 0.1 - 0.9 Luteal phase 1.8 - 23.9 Ovulation phase 0.1 - 12.0 First trimester 11.0 - 44.3 Second trimester 25.4 - 83.3 Third trimester 58.7 - 214.0 Postmenopausal 0.0 - 0.1 Performed By: #### L AMY #### [facility] [address] [place] [address] Dr. Nam Keenan PROGESTERONEon 03-15-2022 Progesterone 6.2 ng/mL Normal [facility] Comment on above: Result Comment: Foll icular phase 0.1 - 0.9 Luteal phase 1.8 - 23.9 Ovulation phase 0.1 - 12.0 First trimester 11.0 - 44.3 Second trimester 25.4 - 83.3 Third trimester 58.7 - 214.0 Postmenopausal 0.0 - 0.1 Performed By: #### L AMY #### [facility] [address] [place] [address] Dr. Nam Keenan PROGESTERONEon 02-15-2022 Progesterone 11.0 ng/mL Normal [facility] Comment on above: Result Comment: Foll icular phase 0.1 - 0.9 Luteal phase 1.8 - 23.9 Ovulation phase 0.1 - 12.0 First trimester 11.0 - 44.3 Second trimester 25.4 - 83.3 Third trimester 58.7 - 214.0 Postmenopausal 0.0 - 0.1 Performed By: #### P KIAN #### [facility] [address] [place] [address] Dr. Nam Keenan Coding Summary.on 03-30-2021 Coding Summary. CD:[id number] G h0bWw+PGhlYWQ+HE9KQBB yV32eqYHzlC2NK2oSCS0O IUQONWSSIY7FJB9hyMA9Z ErfX7JikmVc VvgdpIYvAK63IUe8SKV4c XtsASrpcB9xlLOaI6i2Fg YkFI45dD10KFxnGQUpMeI 3LjZpbjsgbWFy C0pfVxMidWRsCay+PHRhY mxlIHdpZHRoPScxMDAlJy ElaAqiNM2wTw5xPBMlCKX vbGxhcHNlOiBj s5vkBFKtTOeaPI8guYynC 1JhsMM9IDXpl3n6Zo88cB I+OXMrNTZ6kDhzLBgpq36 0OmQby6juKKP8 jQNcSWoxKZX3G08rg6H2R LBcDXLmSVR2pMD8fB3svL iptedoH1BssMUqCyB1OVV 1wQWupY6cdEwq jbcnxU4tKjz+X82ZIR1UF EIXLJ2YSjh3I5KpQmfdtW I+LL60ICKlKQ78yIXzyPW da0usaCh6FyRu YPIgYYW4bHlzKRdus8WuK EDhX41dcOKuj4Y5BYLynA hmwWObYuYeeXW8dR3vVJv omkrcr8lfhvkz Abgwj6tprb28eX43A93lT VupBVUuEEL2DUPcHZPxdQ aeqd6hiK6rCp2+DPbsz3g tf5yhgKn2WwDv ODZmvuRfoYtpKHH6f3CzO g55W0ChjGomp8SrIst6ur 94vJSzi8A8jGP2JTziAOH qaZ1iZNgrWeN0 BDQmRpHjnC72wYGgPWhiO w2kvEwohKseVO7fNDXscb ejTXTthZ6eCLEwuSKdvMf lWD7iLRRejgym m864WgDpRKX9RXUtkRAtD 2FbxV9eXnCgCBKnIXMlO8 AavSChZVpjJ375AQfoOhZ 7NUAdsnUzS1Jt XEVheAfhYrV0q2A1Xj3Hp 3NhnlgsBEB4KOutWVUzPa EaNdNhXnQ3S3PiQbz0YDZ yoSinMG9wC8Yg PFFnyhmfmczdlTF6HADtS OAkgA11kFPaGZsyNx5wz9 B0e681WZUoBGFrqV87Ul6 udDogMTBwdCBU uJ7nchgvb1tjtxgiHlExR TUfJJo4UKh8KPBkcCrwNz TyADU8WzM1MRQ7dIUdpY0 ytCctlkfgyY3r Oyc+A22paF8tOIB0XNR8g mykUFBmmrLnAZ17MM78Q1 RyPjwvdGFibGU+PGRpdiB zpUdaMM2nGzBt y9law3BdNMfoK9UkSAWiX DrkPio6HWUrFTV3eDC0jV 3fODXlCKbyp3R9xCN0Y2T zutHlsx7cm8zg ZAQjZNknP79wxEFlm4N3H TMmeCZ3HBSsqHfrAhNupV 93Oyc+FVPodCkfj1OwAxp gx5zcv1yfjUw5 XuQhGFSpjbAhuItcGEP7c 1GpAf99J39qPMljVNOjWA MjBXHyXTJcvYfcqo0owT9 wIi8+PGNvbCB3 lRT1xT8bJQCrThF0KSgqK 532ItVuhLBnIdwou7igi6 hmvIv7UgIhGUSmjhEjsYk bZEX7o6GqSg54 F75qFRepACMxAQCjZMUqP AYvdRherr1usL2hGo7+PC 7nf8dqmu17qC67zLE+PHR vVNX7rUbkGKhf PPAdoI2kJEekOjB1DKVsW wYarF82sJFiVIoyXw1msA mdtAjsKZ4bVATgeeocd55 7FiNko2wfHQSo qCRgJRsxLVA1W56fs9N2O SGhYLNjMGA2oOR7oA0dqC lnbjogbGVmdDsgdmVydGl eCObyUTzuP885 IHRvcDsnPlBhdGllbnQgT lTnMUu3G6MbZof3GQZiiL tfDE8xcLSjPUpeSj2jySo meFxxCV4mZDYr wrfjh199CtOca2vlQHEyw BRsTYaoLUN2Y20uu8S0GT ZqMLUjGEH1bZL1pQ4jhGp nbjogbGVmdDsg anEnkUxpYVixAAfnN383G HRvcDsnPkJpcnRoIERhdG K7KC06ZX89hTJav2R0rZC 2D4BrRNAhdeon xvzyvLT1FRTdIUEsgJ82Z s5dpHtdOq0jHZFcHNT5AQ DyaMWfT0HtwJ4bQvNiWVQ fASIrT6OyrQQh NFxkW769UFjgEoP2LMTjr dUcZ4EuDHRflRjcWdR2p6 N9Ur2PA6E7FZ87KJ56wEO kq4W3eAQ6O6Lc LWEzqtintvntzQZ6EVFeG OXzjC55Tb4tuOieKu5kWO GoHTE2EKApqYUmU1FufT6 yOiAjMDAwMDAw D7DrnNBmJHrmF956CWhjS yI9YCPlbdSfE9MxHHSqpZ dgWnX3h4D7Ss0JKUg1FD7 1HM17bTUyc4F8 eVO4L2MzMTZuqeggbxyrr YT0CBDmFIRxlJ71No6toR whXb6eDPElCZG5XPIznDU xZ9QciO4fJqZg ZTXaWHDhF3LqyYTpJYzoP 776YVlxQqM5BSZutmIyP7 NxNEEcwIwaHoJ1b1W8Zt5 KQAUgQF98VJI9 nNE5NU46WJ37I2UgUjlyv GFibGU+PHRhYmxlIHdpZH RoPScxMDAlJyBzdHlsZT0 tUf3uRZQkMFTk jPnuuYIoUbAsa5whVRQkT BqnQZ9dgOpaM6AzpFG2WR Dgd6a7Ql40M95mL8MqhET +WYNmlHO4hCL5 aR3oRiUrOzM9JDqfJ243R wQzkCYeKwsrx7uqx2dhoW e4LfV0EFLbdgSjkQidZQC 2m3KsVp35P90v IHdpZHRoPSIxNSUiIHZhb Iqegr6fuP1cTd0+PGNvbC F8nCP3oG7eTyGrEuD6UAp zR317UuLuuOXi Rfbcj8evh7lmtGm2HoEaC AAgrjWdpZlcHJG8s8ShPf 75X6AyvGkqh7UeFfl4hn5 2aAPuj2C1vAN1 N5DvACMvtatoxUMfqJpxP M0rZXLhczreEUZxoV6wFH XuE9z7DwWiOuW9SZfpY8S xexJ8GZSumSHx AEdcELU2Q41fv8A6LDRuC XJuFDO3rMZ6aB2ckGvils ogbGVmdDsgdmVydGljYWw eNMdvQ380NLAk mLzrOGShhL6dTSAhzOItl JtsEK6aCFHdhjyoRt6DXJ gFWswcIfNTO2jYQONUNO5 7JU19vGZsw1P9 cGR0U2HaHTYaweuoejtip QO8EUUdHRMhaN46xTTcJV jzUz0zt5S4s651EDRcLVH msJ57Xx5isPmr BGHonCWThX1ekgjdj8xkq halXqRkEFKvEUj2UTi6JA YfwWtmZrDgDIJ5AoG0IYB 2dNWlgR5kdTdc irxhlY0tFzk+MDgvMjEvM Us6GOkhyUM+QHJxLVU6lF xfCUzdMWYzxM2nFXGtV7l 6DcZeMeM4ROyc S7FpMVLkwrmhMh01bB8dI mEvBqI3OMllB2ItotQ5IF CzkTElXDcjFCM2B55gc1T 7LCMaJNCcBBE2 kGT5mR5blGowpghofJRby DsgdmVydGljYWwtYWxpZ2 46IHRvcDsnPjMyIFllYXJ rOO72JX59qYVy z5M1aOX1Y5BtZSAvblwhy rfgaLL9GECeLVNzbZ76cZ AzVMuzFc8nq2F4z740ZXN wCKMrsN68Hg8x wFqrEEHyvPYXkL4wxhfex 6buhterDxSnCPJqHWj8VR q5TLBrdVzeHxXvUEA8ZrB 0MTN1fKGpaM0k xQkjbgeylN3sOst+RmVtY WbzNS72HA36rIHoj1C2aC S9Q4KvLOLnaivcmjzhlOV 8JTFuQPOhmF16 zHCzMYgkHz2ag3V9s151D UOyXPIquH92Mo3bdTtsZN OjkUXSwI3htsfpd0jphrb gIzAwMDAwMDt0 RLg7EDTwcQvkVzDpCCN8P lD1AYX1zWQvdJ3foWaqjf vgfK0tMai+W6G0cEI5sDF udDwvdGQ+PC90 yk73K6MfMbzbRzv3HQJiH KK9qWT1zZ4dIYXsTSzjk9 A3aOA9I9MaibZvgk8qb3g qQMKjFHctR25w vMJek3Q3KNEptFX4MQQfl UjbWaYtxX85Ooa+PGNvbG eme3JaPzncr6fes6pcdGf 9IjMwJSIgdmFs bAlxPTH9e5SeIy99Y00zV HdpZHRoPSIzMCUiIHZhbG dijp8zqZ0pRs6+PGNvbCB 7vFN9bP4lRuKw HfW3UKtbN689GeXmtYFpD enmq0moc7xkgOp4ClVoZX DijfHrjChmRFG9j8CjLf3 3G6GyfDhqp3Su Npo3ms57uGAik9Y8qHL1D 3BhZGRpbmctbGVmdDogMC 3eWJGydpkmSJLoyU1uYTE zU9d6EzAeGkX2 ACndG3EuqlP8EIVehYIjW TCpiXCAwS1qrlaml5ngxz ghFgLcWHQcTQv2WDt4LVL saWduOiBsZWZ0 GbP1RXL9lBFdbX6xnTzan clvtK3dTgh+MFp1a9srmF IdYO0wjQH8JG92KO88uRK mv8G3tHR4O7Ne ZIDlfojjurwxcDV6IBSvW NLacX79Be8ebUmiRp3hYF QjKOS6NTFbpGXsH2EhrS6 yOiAjMDAwMDAw S1OqhLLsGJudE889HBiaP qH6BKIvwbQrL4CsDVBroM xjPeO5s4H1Cd2SKQ98WY4 4XL64lFKon5B6 jQA4X2PfCHCimmxbgxznh JE8UCPqDMPybA08Vq8ypS olHf6mGAQnJWP8EHKfhKG gT4QoeA7vXkTi DQEqZGMsE4YisNIsSPtoK 410ELfhMgR1WYJaxzCjD9 QoVHWskJqsHuB7z9N2Tg3 ZIn72BR46NW68 mYOle8F3jYB9A6CmOYTti soagumfzCM3CSOpWNSxiU 50Xt7jiEehDv0kFEVyAZO 7DLVgrAYkS6Wr fZ2qBlTtTCDfXTNjG6Tqj YMaZMrjV711DPwaDuW0BW GtrcIjI3AlRCEroUnmHwK 9y1E1Pf1VYLsi fbz4Y6MxZdobsLI+PC90Y ZSmRT04gYYvtVMkn5mulY x7BrMsGAZmDBU9kZksEHc fy8FvYPGcG49w bGFw (more content not included)... Normal [facility] Coding Summary.on 03-18-2021 Coding Summary. CD:[id number] G h0bWw+PGhlYWQ+ZW0JRQG kE46ucBPsfT5RC1sYJP4I LJFUWAWEZO6IBR2qqQM6T EevI5JuemTc GsczcBQbDP82ULm7YNI4f RohSFoaiH9sqTRqS0t6Jq ZjPL40oF56EYciCQGtOkD 3LjZpbjsgbWFy Y8haWwLzbWNmCon+PHRhY mxlIHdpZHRoPScxMDAlJy RqjAheOW0tZi2jVPMkXVX vbGxhcHNlOiBj v1ckMXNbSKegCO4ztTuiX 6WrbFS9OXPbu2c4Xb72fL I+MHSpOKU3qRdlLVkop54 4DiFtp5tpKCJ8 bNMwQVxqNGY4K57yr4H3J ZLpMXEbSTB8jAD6sS6gbS blejtgI7KdeFDvCkK5FIM 1qOFfpR7lnXlx hdepoR7kQxh+D98EGR0FO ERWSS2AIhd6U2YoQwuykC I+AZ50WGSgIZ93iQMvbJR qn2bypEz2LpEl VLBrJHS6xAwlCIiwv9SsF IBsR10haHEkt4J6DANrmH tbtJIzPlLjmWT1yA4vGUi mejomp6cynzgz Zedoo6yqcr77kX79R47iX MmyWGArJVG1PFQpLQFcbO vhcz2cjH0iFw8+ZOgfe9t sc7tbyWy7KkTz IRWpbwMqrFiuQHS5a3YqO g65O0RhtNjqp0BnIpg8bs 80fKIvt2E5bCP7XAppSGI cqF5cUOhxZvE7 JJRsYxQdcR90wOIaDNdiO b9pxQxzyNibNA3xNZBfqy epYLFinR3gNGEwuEMzpQh wLG1cCGZahsgr j261FyYgIQM5IWVjwOJzS 8GtrD1kVrYgKVXtHVHtI4 IrmPIlDVudM602WMtkNtF 9YXEqndPaZ3Eq DPNhvVstQpY6d4B5Hn4Ww 7KgrxtnNFK5LCzzTVLuAk J4AgNzRhG2I0BbRyg7DKY blMkkTE3lS1Hi LMTdaptsstrhhAY6LJMzT JFptD87aZNfEXrbSj7gy6 G2m197XGYaWTBqdY05Hh4 udDogMTBwdCBU yH5jtxthe8ipgkrcDiCpF CJsLUj8FNo8RSAfrRlvNs BcTLL7FrT9PGZ1kQEurV4 jbYmlksbaiX5c Oyc+G12bfX8oAXX6TUY3e gbaWYYayzTjVQ40TU64A6 RyPjwvdGFibGU+PGRpdiB ruAgfIY2hXrQg m4htk0NpLUtmR1OvCOGoB ZlwGrv4EFVoMIT3qRX9xF 3hYLHbNSjfw4K6aAE3Q2F bsfFpok2os8zo TIAcEYkkI81roTVjt3N9K TJmmDI2IMRrfWjxCcNiuO 93Oyc+WZHxiSycm8LuZso bo9fmz1hlhMv2 QdAdFLGiuuZkqWjvNLJ9m 1GgLj24Q28hTXhtSBCeSQ QpDMKwIVDdrGallv1tuL6 wIi8+PGNvbCB3 nXP5sO3bPVGyGhP6JQrqT 347RdYobLLnSqjcr0xfq6 kyqOw4XkLnOBEpchAseTv wHOQ5w8PeXy81 G36yRYjtDBFuIDBlKSGsG NKrpCneip9zuC0jEz7+PC 3ct9zadm25uT53oYS+PHR fHTD5sFbhHKur VPKjyN4lAUpwMqK6LRLxN lNklO34oZSoIJmjDs1ksT zbsGgoCW1dXYYayggqk51 3UpTco6inPALx dULsMUfyGIK9Q62nk5P2K EJiVLEfGPR2kHN8rP9ilS lnbjogbGVmdDsgdmVydGl yGRxtKHdrC925 IHRvcDsnPlBhdGllbnQgT sUoDNy1N4UaHmo0NIWftR tpZQ0wnPKbSXsyBg4rdIc hqNwtWH6dPURm yykks070OoFlo9rkTNCqm QFpBDbmMFI1F87sc6E1SR JxZSRcDJB2fQG4gP6nkEb nbjogbGVmdDsg bhInvAutSQrnZRyyC793C HRvcDsnPkJpcnRoIERhdG J1AO22ON55iLIec1Y4xAV 8F3MdONYjgmba wgexgRK0NEJgALSppE11H k2gjAbrMa8oIABmRLE4EK HuzNAkH0DrbI4zDiHgFES hDMOxM4BqnCQk LAdkY490XRscRbI7RMWlj lPmX5KlXKIcmYsiEbF6h6 O8Gg9WA0U9NJ60KD80lKV yu5V4oBC5S8Sp BJNykfytrlsunDQ3KWJvU PQbsX27Yn6svBqcPc3iYN AkGBH7PQWbtMDvN1HuyV3 yOiAjMDAwMDAw W5PsyCMeGJqtB857XUnzV zR2HMMsizXkZ3ZjQFAyjB vkAzM9v7Z7Ly2BFGa5PX9 7ZU66yXXzv8L4 nXE3K7XcRHBzrrzucdfny XV4JAWbDITsaO25Ak6wzF ueMz6zAXTnXMD8OTEvkDC kP8YdvT2wEqHc MQHfJLQfE1WscGYaVRhvX 962NNjtOfM0KITmdeBqE2 QpFAYedPiqJmO0a0K6Ir7 XTODxMM28QFR3 uNZ1IQ59RK95U3DuYhdko GFibGU+PHRhYmxlIHdpZH RoPScxMDAlJyBzdHlsZT0 lEt2lGHYwMOGi dEjteKUmSfQfj0eoYUMyH QtnTS1uwJhlM7ZbuRF4AA Tdz5t8Pp06U83yA8HzqCN +BJVxbPV1wWO0 dA9gFtFjPbP1XNdnS847Y xUsyCOlSuwri7cyp2qyjO h2ShH5JULdijZxfJzwFDO 6k9XrQx54J97p IHdpZHRoPSIxNSUiIHZhb Cjtjf4jwI6xRa1+PGNvbC Z3mLQ5gZ0bAqIoYoI6WWt xO143ZqHcvURx Egxit8aqi0nmtMt9QaYoC GXgacKweUyoGBD1y5ZfBb 91I3YrkIzky2XjBih9xj7 5wOHjw8C6wEB0 M4AfHSCzrxwxeJBpwJnbA I3dJQZyezvdBOWioI3qUK KvA9w4SqWwJaB4OFevC8S pjgU9GJNbqSDh ILzcBKA5Q52la6M2QOCcS IXfDSI9iJH0mD7ntVuozi ogbGVmdDsgdmVydGljYWw yADatE632EEKf gZptDEVskM1cNSCdzIWch UlhCO8mWWHxcujlEi3LQZ fEDtjuMwNON7yCULVZXB2 5XC31xPUca0X6 tSL9Q5JgGVNzanxvqldgo LQ2EVOhAHBrsK26hXZlRN wuLj4bd8A1w192PYRzRAN nwO56Kw4loPez LULasXJTcT6slixdx6lyu efdSqBxWBZjFVo2ZUh5PA LqnElnQwMqKLR9ByI7UBT 3yPWomX0beYib avhbfO2fPgw+MDgvMjEvM Ub4WXydhKG+GLJxOCK6zL hcMOoaIRKqjB8lMPMjW4u 8UeEsBuZ7HUqa A0UcRBOtcxnpEj91rO3jZ zDpIxO3JDqnP4KbbzU5RZ CjcMQzJVkfUOQ2H48wv3N 9FQLjVPBfYDU3 pWU9fD8knOduynsfcHDdh DsgdmVydGljYWwtYWxpZ2 46IHRvcDsnPjMyIFllYXJ dQK58VM99uLNv a6K7gTY3L6YhRAVmfvcex bqphFJ4TVMeVZNmmS13nD IeAEbbCm4on8Q5b341YQB tZXUthY05Xw7a iPvrFCIqyPALuJ0qpykpu 0fkobsnEvXyFHZjFUo4XQ i2WRIwkCzvThEkTYH9QcF 9SPI7xJRnvF5h qKkisemjzJ2rOjt+RmVtY TdaCO89VF02iKLln7Z8aX N2U1WnXGBctlkurnopiMX 5VSHoABSopL29 bNDnCZbkZb7bu2S0v349R XEsREJjmG81Ej9rfLnbNO NznLSJeW3cidvwg5vocko gIzAwMDAwMDt0 MIb9XLTtsIqoYpLuXZF2D zQ0WKJ7iSMnoV2qwGmygj mcdK4hCnr+KQ0mbrtjrdC 0ZI88XP52X8Ra PjwvdGFibGU+PHRhYmxlI HdpZHRoPScxMDAlJyBzdH cwPQ1rLy6wOIHeQWQojSm pwRQnUsAmc2sy CIVyEOeoVC5fqZfcL4Jix JI0MHUnq3x7Uh66A54vH4 JvdXA+HSOgsFH4bYX7kC3 tAuNuOeK9PXxb J600UwOogPFtDjqot5lrd 2terHf4QnAwKOTjabQwbM zwUNK0u6GxGm52S37kNTo pZHRoPSIyMCUi IOVwmVtgpl3qgR3qRb9+P XCoxHP1kTU3hJ5xOgOhKn I9IMerF418YvPqpNGcFtz gY42cV5EuqUC+ TIJwAue9GXHhzIarVX8od JZdXZtkBb9mIMF2WuWwEp XwIMicZ0EwYTCjbttpsxy wsND1CKOmRKNg aF69Mc7syBfwQo7sBTYlG BU5NKEsoSJbI3EobK9vWs YuIBDqBHJhB0EajIOuGMm cD856MXiaArA9 FIJimsCmF5LcALAzaVdkS vS0a2G9Et0NcCniyMIvPG 7aPyNoBBz8H2FgDhu1APT pyXfxSC0evKOo RBvmVz9irCosqUleKL2yX SUwiazqr400WyDvm0mqPY CwuPTkUYfuENQ1Q77nf6C 4SCKfJAAwACL3 oCP5hZ2dsMxmokyhdHLdl DsgdmVydGljYWwtYWxpZ2 01CQFcePjhXmCMGhh7O0E mXhv1EAZsmZwn CV0zdNJeXDqdKj3ckEnvd RgrJS5pJXPqqkbmt420Ny Nzu5ygJXXrdYWcGQldCIH 3V06ft4Q2DCWz RPUlRLS8tZV5vU6luDdaj jogbGVmdDsgdmVydGljYW jlAShkB168LOBnyXywBw1 OBal2K5RfEgt0 TXOroVutBZ9zzOXiVAebS v5fuRouwNtnUK5uHEWven rlb277BeXdi1ahLHWbqJS wGQkuTEM7H16f k9N4QZQpLUKqRZI2qCL5i T7ngFydnbrutPSxoFzxzw AzqWcvAQkjCRdeH433RCZ vcDsnPlBheWVy OjwvdGQ+DD45as09Q9SfG qrzAot0BGJtPYN7mOA6lG 1mOCRdSIztp1O7jTV4B6V zdiDiqa9dp2ic YXBz (more content not included)... [facility] Coding Summary. CD:[id number]:[id number] G h0bWw+PGhlYWQ+RD6DGSJ wW02kcKUzmY8YG1vCGS6E AZLMSOBWVA0VTD7pcOY3D DdaN9CinwQs NmsqsORoWQ25NJb4MZT3f KpsYRdljZ6zfGXuE0s1Fj ZqBJ32oE69OHuwAXFbApK 3LjZpbjsgbWFy S1xtUoXrxBRzPtu+PHRhY mxlIHdpZHRoPScxMDAlJy IbgAouAI0pZl5wCKYuAGA vbGxhcHNlOiBj e8kbPQUbDTcfDJ1nzTjeZ 8DdrDW9ZQTtq8u8Un58gL I+XLEaDXF1uHzuYVtgp23 9UrWmd9trGQZ4 oGLkJDllPOZ9Y34bt8C3H GStDBYbGVM1yIC5nP3diC gnyugnS3KoqPUbOoK3TMH 9nDAbzS3jeEts tictqY0jDsi+X13GUH9NG DGECL6KTlz3R0QnTmichT I+UJ80FFGdXY65ePHbcVB zv0lrzJl6EuHq SCZtFHM2zMaoMWjfa3NtQ MBbW52alGWsb1M3AUQgvW lwvUTpDqEupVN8lG4yCWb wuemng1ihwsgq Djgzf7ulss93sO74F50oJ SeqWUPyDHR8AUVhFKUmbH imfq8uoD2qUq2+EIvbs1n up2kqmIp5RuRy PDFxuhUpzFwzAWG1w9EgQ r33E9GsoGelv5UjNcf4yn 75mBKcu2R1xOS6MFgzPPB mpF2xYFnyLsW2 WAWpAcHteG85oJVeHHxbU w4toWfrrBqkBS7nAIRjpb mhAWUuwO4wVPEquWHdxQr rVX8sIJPvobda x619NyQcVYM4DQOjpUVhF 0TvmJ9oPoBlUXNpAFOqJ6 WdrKDlGLhoY105MNtxJaF 1OALiwaFlP2Qf XHYgzLshQuE2n1A5Ya9Qb 4PctezqVRO5LIaaIQCaDg M8XrHiZeA4P7VyOkm4ILF pjOpqYC3lI2Bd ZVJixgtldiuopMW6LAGrZ KVmbZ83oUJiMNxtYw5vu5 Y4v934XFSlNQFfrW19Ag9 udDogMTBwdCBU uN1obkvgc5pqnahpMzVzB DTwQDj7LOa8IAJqlPmyXp LpWAX3SzA3ELI8yPQzhZ2 pkLwikffsbV7h Oyc+N17bxY3xGTE7QRH6i hdaORCqfmTkWD06SN85E5 RyPjwvdGFibGU+PGRpdiB ccOadIT5oNeNp h8pwy9SuMMmjW3WqRKJvU QphSfn5RKGyTLA0qGD2zX 7sYQDrOMuyx7C3pLR1P9D dxwOloo3qq0al IYXoXIkrP37hrWBke8F8E XDvrCR6GFCxoMfiPjUvtY 93Oyc+DSYgoRfpc9XmQve gn4qiu8lfjNd4 OdUdYJCmkuJrhUbeHIJ0s 9GuZz88M61mBKzcJJRlHL BsSTSdOEYflEqpyl0seW7 wIi8+PGNvbCB3 gOV3mS4wSWRjRxW3DAfpU 742DeFivOVeXhclx7mpv3 xnrQb7MyOwPZVzetIfqCq yOLO8a9YkGi91 W28hOQxuHFCfCCHbHGAyQ GSpyJmoju6ruM6yDu3+PC 7jz6hkjg22xU41cAM+PHR mBHT5hDitKVqw YATrqU7gNZuzTmU4PKJyC uMlrR46oEEsUEvqXo8emC oyoOgxMF0aZZPknirid99 5GkHmw0liRASb bRHaAOjhDVE4H74ve3O2C YSfMIPoKIP7vJZ5qV6lmI lnbjogbGVmdDsgdmVydGl uOYteIImhD697 IHRvcDsnPlBhdGllbnQgT fRaBSo2C1RgHta1OSQsxT koGB5ytLGxUScmPt0wrUz ixUrkDT4uQCJt gynpc323GgHzr4xlUHIgq ZPmRHrwCTU8B81mc1K6AX LrTUHsZCF2iVM2tF4tpCv nbjogbGVmdDsg qmLjbZveHLgtENbyZ940U HRvcDsnPkJpcnRoIERhdG Z7UD55SR88iQEbc9J9dUK 8O5HwUJZihlzi ggjkjRJ1SPHfXESfnE62A z8coJmoTk0rPYFnSNJ4MC AbpCViZ7IluC1uAhHxBZX gOOVpK9XuiZYz YWzsA835LJtbKcY4MQRyv qNcC2JsYSEllUdnRhQ0m7 C4Xm0KX3L4YG49CS77aVU tp2G1oBC2K8Xe RDJqrcgjxbcpxVM0KYBjM SJnkQ32Cj8xoVcvJu3gDK YnSRM2CIVxpSVdE8FatS4 yOiAjMDAwMDAw Y1UgwBHuXDqsW075KJgdV dW5VJBkdwGdV0QuDESawM bgLgP2e4R5Bq0XZVz6SG1 3SN15qCAly7G1 jJJ3W0SuJRAbewmbitdxb UU0YBCwTOTyxN40Ts7urY ceYx1kNJUnBID5IWXbeNY eP8GdhF6nJwNu RXVhSMFgP0YcrHLmOOznV 103WLugAuT9IZEoprDxS8 HoCKAscGwjWhP8j6U1Mo6 ASCVhQJ58UME3 mNR8MT49EG70E7EiPdflu GFibGU+PHRhYmxlIHdpZH RoPScxMDAlJyBzdHlsZT0 iEb8gBHXmVUPz nFqtqYIgCjOxs1eoKCKjH SryRR7vkTujZ4GgtWJ7OH Zhg4z6Mx52K93jW9QwfTK +WMJxhRN9nAK3 iM5tMqKpHwV6UYvtB896Z uOezKIiRudys6keq6wpgA c2FuM1XPWwnnYdzOxhLHQ 7i3OgPj18E73h IHdpZHRoPSIxNSUiIHZhb Fwhau3mdX0cAn7+PGNvbC I1wNM3aS7iLuHvEiU2MHi xQ186ByPqiIGz Ziaek9xco6bogSl2WhNfZ BQwlmShlTcbXWH2w9RqBb 13X1GrgKunh6LxByg3js2 0uKZrp7J4xYU0 L5UzTDXqnllujENhjPikN C9mYACzjhcuKJLbhA0sIA SvJ9y5NkYiEkM5SHjgG9S nrgF1XPDoqMMg MUpcIWI1R83fq9Y6OOQtQ NWxZOU3rGG2qV2qtGwgoq ogbGVmdDsgdmVydGljYWw kYEgeH930ZNXn uWriJWNkkJ4mXSRgrSLum TzlWH0uNXZfvrduIn7UAB lGByteWdARR4yYAUHNVC7 4YZ81vJPng1G6 vUU0R0SxPYLhzhqtckbhn WJ8XNRwEDJqbS05eSPwQH xgYi9iu1Y2x787FGYfDZA wzG05Sx7fcIko LPWcyIPSuR5wygwnt0vhh cybTnAeCIJuXOb7JSz9QY PtiRrqSzOzWDL0YaP8YNC 6aEJseG0vvGav itdozB4tNrv+MDgvMjEvM Pp5ASofbGO+EOHoTPI5sK kvUSptSKFgtQ0eKTDlV2x 8ChFrMxE4KXfy E6TeKJGvxhbgEz84iQ5kY jSjMnB1TJwsI4VypvL4FZ GerZTjLDdlTUA3N73bt9Z 9KQGaXFOqNPH7 uYZ5sL0sgBknpuhhpJRpt DsgdmVydGljYWwtYWxpZ2 46IHRvcDsnPjMyIFllYXJ gSR20CF49kPMl q5S4jYG2J8WwPGIwaojnd tndkEG8XBXwZSRylO98aJ TxTFkfRl2ma1G1m559YMN eVEAuuK23Qa7r dAamKOAtwSXAyV1iltygm 7ftdwhvWtJrSVAuRNb1IW o5WWBixAwsWeXjWEO7PvT 1XWK2pEDvrF7o vJzhnkpfxS2qYwi+RmVtY BdhYH50RB31uUPis2X2qF V1I7EuGICcdfwsxgnxqPW 5PIAiLHLsjL58 qNMbJOldAq2tt0L2b634X RWsLBPdxP93Dk7cuWegJX LuhLYCeM3ncstjn3wkyoa gIzAwMDAwMDt0 OEv0BHDpzYnpQyJaOPQ6O lE1YON6lCKvpA9woSmccd rvsP3iTww+MR0jezqgopE 7UN47ZI67J4Zc PjwvdGFibGU+PHRhYmxlI HdpZHRoPScxMDAlJyBzdH uyWV2sHb5bIWBdDPQfcTa abEYiDuEsm0xv YVDqFKjlJL2psWqcU6Lix SU6XAFbb3v1Qt67I84uL4 JvdXA+AGIhhLJ3hRD6zZ2 xQeYzSvD3UWwc J492UlAcsSBlUwfng2oar 6sayKq3DiJsCIEnhwKnnA gpYSA6l0KdJw03V11uUYy pZHRoPSIyMCUi WYKqkQwpug6krI7hEv3+P QIqyJA9fTC0kB5kDqPpMc F2UYawY342YzLskSWdKbr zS28dZ1AoaGD+ MBHsSkm2NGSqzCgrBN8qk CFqEDhnKi6eHZY3FlHvRj TnLMywD2VeAJSwdltbbdu ahDC4EYNbYKHw cG63Rj4nqIfsOv6wBLEiN EW4SMOgkKSeY4XfrX3lHd MxNTMxUVZdU2JrbVRlHIs nW798QOmmBnH4 PZNfwfUeY9HbLCEqaJlzD nH5s9R4Xe0GzRkcnRNsQI 1mHwIkOPj3J3IxEtx6TYX fkJuuGB0xyPDt SIcvHd5ybWhefRrtPI4cG PQywjtwp702XtRao7bqIK QscDGeLPkmGOX0E88il9J 5PTZdWGSuNRG1 eRX1hJ0ydYtvzlfdgPCxb DsgdmVydGljYWwtYWxpZ2 80EQCuyEapVdZKXqd9Y7G gBln3JASybPqr PE3ibJOyXUnzPo4qxMzce UkwOW3tYXXqcakxu040Xu Huf5pcEXCiuFMoYTxkKVW 0M18sz6G7ZOFz DBWiEBE0vII4bS8nkWosy jogbGVmdDsgdmVydGljYW xmBKwhW464MAObkWirEb8 BVoo2D3BkEwh1 DXAyoNeuYB5aaHRtOHttH v8elGoqjSesWN3bQIRnvv tdl758YjHkq3lhVLQwjMN lEUrdDRQ8B54z o2G9DXRjRHKwLIR1dBE7g C1lmErtkupsaMSdzHavij OorGeiNKlcCJosT888UGX vcDsnPlBheWVy OjwvdGQ+RG68eb05U5AoO otpHcu4SSLqIKG0oAA3fT 2jRNQnBHmfz1S0zOS6S5C btbLvyh9mz0sx YXBz (more content not included)... Normal [facility] Auto Diffon 03-12-2021 Basophils/100 WBC (Bld) 0.2 % Normal 0.0-2.[address] [facility] Comment on above: Order Comment: Order Added by Discern Expert. Performed By: #### 2 [id number], [id number], [id number], [id number] ####[facility] [address] [place] [address] Basophils/Leukocyte s Auto (Bld) [Pure # fraction] 0.0 E9/L Normal 0.0-0.[address] [facility] Comment on above: Order Comment: Order Added by Discern Expert. Performed By: #### 2 502777, 5376788, 2131167, 3751803, 71468884, 01059459, 20713093 ####[facility] [address] [place] [address] Eosinophils/100 WBC (Bld) 0.0 % Normal 0.0-8.[address] [facility] Comment on above: Order Comment: Order Added by Discern Expert. Performed By: #### 2 273370, 5773481, 3759659, 8919256, 87030067, 97785319, 12888757 ####[facility] [address] [place] [address] Eosinophils/Leukocy jacinta Auto (Bld) [Pure # fraction] 0.0 E9/L Normal 0.0-0.[address] [facility] Comment on above: Order Comment: Order Added by Fiona Expert. Performed By: #### 2 223051, 5594253, 3557543, 9449416, 35737489, 66952450, 71677022 ####[facility] [address] [place] [address] Lymphocytes/100 WBC (Bld) 19.4 % Normal 14.0-50.[address] [facility] Comment on above: Order Comment: Order Added by Discern Expert. Performed By: #### 2 101837, 5568359, 7474984, 0775431, 71614338, 87681540, 68004243 ####[place] [address] [place] [address] Lymphocytes/Leukocy jacinta Auto (Bld) [Pure # fraction] 1.0 E9/L Normal 1.0-4.[address] [facility] Comment on above: Order Comment: Order Added by Fiona Expert. Performed By: #### 2 246939, 7932507, 4254615, 7788231, 22960430, 02532217, 44160537 ####[place] [address] [place] [address] Monocytes/100 WBC (Bld) 6.9 % Normal 4.0-14.[address] [facility] Comment on above: Order Comment: Order Added by Fiona Expert. Performed By: #### 2 592379, 3848103, 2693901, 2150709, 66231656, 98460510, 71779762 ####[place] [address] [place] [address] Monocytes/Leukocyte s Auto (Bld) [Pure # fraction] 0.3 E9/L Normal 0.2-1.[address] [facility] Comment on above: Order Comment: Order Added by Fiona Expert. Performed By: #### 2 176783, 0644773, 8752187, 4804503, 71144418, 70078005, 20425146 ####[place] [address] [place] [address] Neutrophils/100 WBC (Bld) 73.5 % Normal 36.0-75.[address] [facility] Comment on above: Order Comment: Order Added by Discern Expert. Performed By: #### 2 217663, 5632916, 2866687, 4999965, 76637756, 19248723, 85623482 ####[facility] [address] [place] [address] Neutrophils/Leukocy jacinta Auto (Bld) [Pure # fraction] 3.6 E9/L Normal 2.0-7.[address] [facility] Comment on above: Order Comment: Order Added by Discern Expert. Performed By: #### 2 984792, 9334728, 1474761, 3744891, 85970008, 98270327, 71516995 ####[facility] [address] [place] [address] BMPon 03-12-2021 Creatinine [Mass/Vol] 0.8 mg/dL Normal 0.5-1.[address] [facility] Comment on above: Performed By: #### 2 132895, 9211263, 6185207, 4175893, 03038687, 84883565, 50796853 ####[facility] [address] [place] [address] Urea nitrogen [Mass/Vol] 8 mg/dL Normal 5-[address] [facility] Comment on above: Performed By: #### 2 406678, 6061556, 9253876, 6545936, 40074049, 66102318, 56926258 ####[facility] [address] [place] [address] Urea nitrogen/Creatinine [Mass ratio] 10 No Units Normal 10-[address] [facility] Comment on above: Performed By: #### 2 166268, 5820896, 3611532, 5655247, 50662993, 16011788, 54131476 ####[facility] [address] [place] [address] Anion gap [Moles/Vol] 16 mmol/L Normal 6-[address] [facility] Comment on above: Performed By: #### 2 907556, 1353263, 2295924, 1406778, 84981831, 72773607, 46232869 ####[facility] [address] [place] [address] Calcium [Mass/Vol] 8.3 mg/dL Low 8.9-11.[address] [facility] Comment on above: Performed By: #### 2 511827, 8802703, 7502306, 5045224, 11857185, 34314200, 16840026 ####[facility] [address] [place] [address] Chloride [Moles/Vol] 99 mmol/L Low 101-[address] [facility] Comment on above: Performed By: #### 2 934272, 3826157, 9573062, 3982368, 88086135, 93963422, 32638087 ####[facility] [address] [place] [address] CO2 [Moles/Vol] 21 mmol/L Normal 21-31 [facility] Comment on above: Performed By: #### 2 700649, 9685927, 0840576, 1952626, 79692796, 16190686, 51699473 ####[facility] [address] [place] [address] Glucose [Mass/Vol] 127 mg/dL Normal 55-[address] [facility] Comment on above: Result Comment: If t his glucose result represents a fasting glucose, interpretation should refer to the following reference range: 55-99 mg/dL Performed By: #### 2 366997, 3793965, 1213158, 3737392, 07336385, 52899575, 29295768 ####[facility] [address] [place] [address] Potassium [Moles/Vol] 3.5 mmol/L Normal 3.5-5.[address] [facility] Comment on above: Performed By: #### 2 906800, 9471030, 4660577, 6437322, 60577610, 61494317, 84906627 ####[facility] [address] [place] [address] Sodium [Moles/Vol] 132 mmol/L Low 135-[address] [facility] Comment on above: Performed By: #### 2 298911, 0718587, 8515467, 2946056, 82174195, 26458540, 77787639 ####[facility] [address] [place] [address] CBC w/ Auto Diffon Erythrocyte distribution width (RBC) [Ratio] 14.2 % Normal 10.9-14.[address] [facility] Comment on above: Performed By: #### 2 476830, 4819612, 8039916, 4573517, 67420242, 19082573, 50954164 ####[address] [address] Hematocrit (Bld) [Volume fraction] 39.9 % Normal 34.0-46.[address] [facility] Comment on above: Performed By: #### 2 123651, 0528087, 0710834, 1799971, 29441301, 33617390, 36740239 ####[facility] [address] [place] [address] Hemoglobin (Bld) [Mass/Vol] 13.0 g/dL Normal 12.0-16.[address] [facility] Comment on above: Performed By: #### 2 412716, 1138340, 5817575, 9369639, 49929707, 51523511, 86865218 ####[facility] [address] [place] [address] MCH (RBC) [Entitic mass] 27.3 pg Normal 27.0-34.[address] [facility] Comment on above: Performed By: #### 2 860582, 4736921, 5812355, 5858894, 34704435, 10514926, 83782542 ####[address] [address] MCHC (RBC) [Mass/Vol] 32.7 g/dL Normal 31.4-36.[address] [facility] Comment on above: Performed By: #### 2 666734, 1022820, 1568400, 5850554, 50472697, 82985313, 84359500 ####[place] [address] [place] [address] MCV (RBC) [Entitic vol] 83.4 fL Normal 80.0-100.[address] [facility] Comment on above: Performed By: #### 2 940113, 4653300, 3418931, 8068739, 92284631, 14223875, 46658144 ####[place] [address] [place] [address] Platelet mean volume (Bld) [Entitic vol] 7.8 fL Normal 6.4-10.[address] [facility] Comment on above: Performed By: #### 2 347360, 2097784, 3098076, 6077612, 58306163, 87339013, 00252329 ####[address] [address] Platelets (Bld) [#/Vol] 188.0 E9/L Normal 150.0-500.[address] [facility] Comment on above: Performed By: #### 2 213085, 4443951, 1881333, 7482412, 23678989, 12865419, 93794435 ####[address] [address] RBC (Bld) [#/Vol] 4.8 E12/L Normal 4.3-5.[address] [facility] Comment on above: Performed By: #### 2 277116, 1623226, 3283583, 0065004, 85038258, 40781736, 29506326 ####[address] [address] WBC corrected for nucl RBC Auto (Bld) [#/Vol] 4.9 E9/L Normal 4.0-11.[address] [facility] Comment on above: Performed By: #### 2 510063, 9941094, 9435532, 8208383, 46215983, 97814004, 02700748 ####[facility] [address] [place] [address] CTA Cheston 03-12-2021 CTA Chest Exam Date/Time: [...] Signature): 03/12/2021 12:33 pm Signed by: Toi oRmero M.D. Transcribed by: ROBERT Technologist: CORINNA Technical Comments GFR (mL/min/1/73m2) >60 Contrast: Isovue 370 Contrast amount in ml's: [address] [facility] Consent for Treatmenton Consent for Treatment [id number]#1 .00CD:[address] [facility] D-Dimeron 03-12-2021 Fibrin D-dimer FEU (PPP) [Mass/Vol] 586 [id number] Abnormal 215-[address] [facility] Comment on above: Result Comment: Resu [...] infections Liver cirrhosis Performed By: #### 2 956685, 8911821, 0157984, 4174560, 39379721, 98861270, 72391450 ####[facility] [address] [place] [address] Discharge Instructionson Discharge Instructions [id number]# 1.00CD:[address] [facility] ED Clinical Summaryon 2020 ED Clinical Summary [place] [id number] ED Clinical Summary Person Information Name: BEULAH MURPHY [facility] Age: 30 Years : 1990 Sex: Female Language: Tamazight PCP: Tricia Dewey CNP Marital Status: Phone: [phone] MRN: Visit Id: Visit Reason: Fever; Diarrhea; [...] 03/12/2021 12:55:56 03/12/2021 12:55:56 03/12/2021 12:55:56 ADDRESS: [address] [place] [id number] PHYS DOC NOTES: MEDICAL INFORMATION: Prescriptions Given: New Medications [facility] [place], [place] [id number], [phone] albuterol (albuterol CFC free 90 mcg/inh Inh [...] Follow up: With: Address: When: Tricia Dewey [address] [place] [address], [facility], [address] [place] [phone] Business (1) In 3 days DIAGNOSIS: COVID-19; Near syncope Normal [facility] ED Note-Physicianon 03-12-20 ED Note-Physician Basic [...] puff(s), Inhalation, QID, 8 gram, Refill(s) 0, [facility], 173, cm, 03/12/21 9:08:00 EST, Height/Length Dosing, 125, kg, 03/12/21 9:08:00 EST, Weight Dosing azithromycin, 250 mg, Oral, As Directed, Take two tabs by mouth on day one, then one tab daily, # 6 tab(s), Refills(s) 0, Pharmacy: [facility], 173, cm, 03/12/21 9:08:00 EST, Height/Length Dosing, 125, kg, 03/12/21 9:08:00 EST, Weight Dosing dexamethasone, 6 mg = 1 tab(s), Oral, Daily, X 7 day(s), # 7 tab(s), Refills(s) 0, Pharmacy: [facility], 173, cm, 03/12/21 9:08:00 EST, Height/Length [...] Information Tricia Dewey In 3 days [address] [facility], [address] [place] [address]- Business (1) Additional Instructions: Problem List/Past Medical [...] (more content not included)... Normal [facility] Comment on above: Result Comment: Elec tronically Signed By: Tal Gonzalez DO\.tamar\Date and Time Signed: 03/12/21 12:46 EST ED Patient Education Noteon 03-12-2021 ED Patient Education Note Normal [facility] ED Patient Summaryon 021 ED Patient Summary [address] [address] Patient Discharge Instructions Person Information Name: BEULAH MURPHY Age: 30 Years Arrival Date: 03/12/2021 08:55:19 Discharge Diagnosis: COVID-19; Near syncope Primary Care Physician: Tricia Dewey CNP Provider Information Primary Provider: Tal Gonzalez DO Advanced Information Systems Technician:None The exam and treatment you received in the Emergency Department were for an urgent problem and are not intended as complete care. It is important that you follow up with a doctor, nurse practitioner, or physician?s case management assistant for ongoing care. If your symptoms [...] Follow-up Instructions: With: Address: When: Tricia Dewey [address] [place] [address], [address] [place] [phone] Business (1) In 3 days In the event that this physician does not participate in your insurance network, please consult with your insurance company to find a nearby participating provider. Patient Education Materials: A MESSAGE TO ALL PATIENTS REGARDING OPIOIDS PRESCRIPTION OPIOIDS: WHAT YOU NEED TO KNOW Prescription opioids can be used to help relieve pwwmendc-tj-ljnjtj pain and are often prescribed following a [...] be struggling with addiction, tell your health patient care technician and ask for guidance or call SAM[employer]?S National Helpline at 9-597-097-BOGD. v Source: [place] Department of Health and Human (more content not included)... Normal [facility] PT & PTTon 03-12-2021 aPTT Coag (PPP) [Time] 30.8 second(s) Normal 25.1-36.[address] [facility] Comment on above: Result Comment: Hepa rin therapeutic range (represented by Anti-Factor Xa activity of 0.2 - 0.4 U/mL) corresponds to PTT of 56.6 - 109.0 sec. Performed By: #### 2 136426, 6732265, 1985150, 8508503, 99611244, 41940297, 07692289 ####[facility] [address] [place] [address] INR Coag (PPP) [Relative time] 1.2 {INR} Invalid Interpretation Code [facility] Comment on above: Result Comment: INR results are specifically intended to assess patients stabilized on long-term Anticoagulation therapy suggested INR?s ?Less Intensive Anticoagulation? 2.0 ? 3.0 Conventional Range 3.0 ? 4.5 Performed By: #### 2 576475, 7882044, 2043449, 1025543, 25053139, 17370196, 36341734 ####[facility] [address] [place] [address] PT Coag (PPP) [Time] 14.1 second(s) High 10.2-12.[address] [facility] Comment on above: Performed By: #### 2 764787, 6549668, 6345963, 5783381, 01938145, 65681237, 80194299 ####[facility] [address] [place] [address] Troponin 0 Hr.on 03-12-2021 Troponin I.cardiac [Mass/Vol] 3.90 pg/mL Low 10.10-27.[address] [facility] Comment on above: Result Comment: The 95% CI (Confidence Interval) PPV (Positive Predictive Value) for myocardial infarction in females is 38 pg/mL, in males 51 pg/mL. The results should be used in conjunction with clinical conditions of myocardial infarction. (Access High Sensitivity Troponin I Instructions For Use, Randell Cony, November 2017) Performed By: #### 2 389404, 3329029, 2835522, 2614576, 98702373, 49787600, 46156986 ####[facility] [address] [place] [address] XR Chest Single Viewon 03-12 XR Chest [...] by: ROBERT Technologist: FAUSTINA Shepherd [facility] eGFRon 03-12-2021 GFR/1.73 sq M.predicted among blacks MDRD (S/P/Bld) [Vol rate/Area] mL/min/{1.73_m2} Normal >=[address] [facility] Comment on above: Order Comment: Order added by Discern Expert. Result Comment: eGFR is race adjusted. AA=. Performed By: #### 2 038995, 2508091, 5118499, 2363794, 13421072, 24620623, 53044550 ####[facility] [address] [place] [address] GFR/1.73 sq M.predicted among non-blacks MDRD (S/P/Bld) [Vol rate/Area] mL/min/{1.73_m2} Normal >=[address] [facility] Comment on above: Order Comment: Order added by Discern Expert. Result Comment: Diet Tech nandini kidney disease could be indicated at eGFR's of less than 60 mL/min/1.73m2. Kidney failure is indicated at less than 15 mL/min/1.73m2. Performed By: #### 2 942296, 3081578, 2445168, 2917182, 53828472, 49851863, 31706106 ####[facility] [address] [place] [address] Consent for Treatmenton Consent for Treatment [id number]#1 .00CD:[address] [facility] Physician Orderon 03-10-2021 Physician Order [id number]# 1.00CD:[address] [facility] XR Chest 2 Viewson XR Chest [...] Jimmy Davis DO Transcribed by: ROBERT Technologist: SIAAC [facility] Vital Signs Date Time Vital Sign Value Performing Clinician Oseas dobbins 10-28-2024 11:25-0400 Body mass index (BMI) [Ratio] 42.61 kg/m2 Informative Work Phone: [facility] 10-28-2024 11:25-040 Body weight 129 kg Theodore Adrian DO Work Phone: [facility] 10-28-2024 11:25-0400 Diastolic blood pressure 70 mm[Hg] Theodore Adrian DO Work Phone: [facility] 10-28-2024 11:25-040 Systolic blood pressure 108 mm[Hg] Theodore Adrian DO Work Phone: [facility] 10-21-2024 14:17-0400 Body mass index (BMI) [Ratio] 42.44 kg/m2 Theodore Adrian DO Work Phone: [facility] 10-21-2024 14:17-0400 Body weight 128.48 kg Theodore Adrian DO Work Phone: [facility] 10-21-2024 14:17-0400 Diastolic blood pressure 72 mm[Hg] Theodore Adrian DO Work Phone: [facility] 10-21-2024 14:17-0400 Systolic blood pressure 110 mm[Hg] Theodore Adrian DO Work Phone: [facility] 10-14-2024 15:07-0400 Body mass index (BMI) [Ratio] 42.67 kg/m2 Theodore Adrian DO Work Phone: [facility] 10-14-2024 15:07-0400 Body weight 129.18 kg Theodore Adrian DO Work Phone: [facility] 10-14-2024 15:07-0400 Diastolic blood pressure 70 mm[Hg] Theodore Adrian DO Work Phone: [facility] 10-14-2024 15:07-0400 Systolic blood pressure 110 mm[Hg] Theodore Darian DO Work Phone: [facility] 09-30-2024 15:47-0400 Body mass index (BMI) [Ratio] 42.37 kg/m2 Flower DE LA PAZ Work Phone: [facility] 09-30-2024 15:47-0400 Body weight 128.25 kg Flower [place] PAZ Work Phone: [facility] 09-30-2024 15:47-0400 Diastolic blood pressure 80 mm[Hg] Flower DE LA PAZ Work Phone: [facility] 09-30-2024 15:47-0400 Systolic blood pressure 130 mm[Hg] Flower Otero PA Work Phone: [facility] 09-17-2024 10:49-0400 Body mass index (BMI) [Ratio] 41.97 kg/m2 Theodore Adrian DO Work Phone: [facility] 09-17-2024 10:49-0400 Body weight 127.06 kg Theodore Adrian DO Work Phone: [facility] 09-17-2024 10:49-0400 Diastolic blood pressure 70 mm[Hg] Theodore Adrian DO Work Phone: [facility] 09-17-2024 10:49-0400 Systolic blood pressure 112 mm[Hg] Theodore Adrian DO Work Phone: [facility] 08-27-2024 09:21-0400 Body mass index (BMI) [Ratio] 41.52 kg/m2 Flower [place] Work Phone: [facility] 08-27-2024 09:21-0400 Body weight 125.7 kg Flower [place] Work Phone: [facility] 08-27-2024 09:21-0400 Diastolic blood pressure 70 mm[Hg] Flower [place] PAZ Work Phone: [facility] 08-27-2024 09:21-0400 Systolic blood pressure 120 mm[Hg] Flower [place]Z Work Phone: [facility] 08-01-2024 09:31-0400 Body mass index (BMI) [Ratio] 41.21 kg/m2 Theodore Adrian DO Work Phone: [facility] 08-01-2024 09:31-0400 Body weight 124.74 kg Theodore Adrian DO Work Phone: [facility] 08-01-2024 09:31-0400 Diastolic blood pressure 72 mm[Hg] Theodore Adrian DO Work Phone: [facility] 08-01-2024 09:31-0400 Systolic blood pressure 112 mm[Hg] Theodore Adrian DO Work Phone: [facility] 06-03-2024 14:49-0500 Body mass index (BMI) [Ratio] 40.58 kg/m2 Theodore Adrian DO Work Phone: [facility] 06-03-2024 14:49-0500 Body weight 122.83 kg Theodore Adrian DO Work Phone: [facility] 06-03-2024 14:49-0500 Diastolic blood pressure 72 mm[Hg] Theodore Adrian DO Work Phone: [facility] 06-03-2024 14:49-0500 Systolic blood pressure 106 mm[Hg] Theodore Adrian DO Work Phone: [facility] 05-02-2024 11:56-0500 Body mass index (BMI) [Ratio] 40.28 kg/m2 Theodore Adrian DO Work Phone: [facility] 05-02-2024 11:56-0500 Body weight 121.93 kg Theodore Adrian DO Work Phone: [facility] 05-02-2024 11:56-0500 Diastolic blood pressure 70 mm[Hg] Theodore Adrian DO Work Phone: [facility] 05-02-2024 11:56-0500 Systolic blood pressure 110 mm[Hg] Theodore Adrian DO Work Phone: [facility] 02-15-2024 14:26-0500 Body mass index (BMI) [Ratio] 41.77 kg/m2 Flower Otero PA Work Phone: [facility] 02-15-2024 14:26-0500 Body weight 126.46 kg Flower Otero PA Work Phone: [facility] 02-15-2024 14:26-0500 Diastolic blood pressure 80 mm[Hg] Flower Isiah PA Work Phone: [facility] 02-15-2024 14:26-0500 Systolic blood pressure 120 mm[Hg] Flower Isiah PA Work Phone: [facility] 02-12-2024 08:50-0500 Body mass index (BMI) [Ratio] 41.8 kg/m2 Theodore Adrian DO Work Phone: [facility] 02-12-2024 08:50-0500 Body weight 126.55 kg Theodore Adrian DO Work Phone: [facility] 02-12-2024 08:50-0500 Diastolic blood pressure 72 mm[Hg] [...] trimester preg lakia ([facility]); 38 weeks gestation of ([facility]); HSV infection; Multigravida of advanced maternal age in third trimester ([facility]) Start: 10-29-2024 End: 10-29-2024 Clinisync Result Encounter [...] trimester preg lakia ([facility]); 37 weeks gestation of ([facility]) Start: 10-28-2024 End: 10-28-2024 ambulatory THEODORE ADRIAN [...] trimester preg lakia ([facility]); 36 weeks gestation of ([facility]); Multigravida of advanced maternal age in third trimester ([facility]); HSV infection; Excessive growth affecting management of , antepartum, single or unspecified fetus ([facility]) Start: 10-16-2024 End: 10-16-2024 Clinisync Result Encounter Theodore Adrian DO Work Phone: [facility] External Department Unsolicited Start: 10-16-2024 End: 10-16-2024 Clinisync Result Encounter Theodore Adrian DO Work Phone: [facility] External Department Unsolicited Start: 10-14-2024 End: 10-14-2024 flow sheet Theodore Adrian DO Work Phone: [facility] Comment on above: 35 weeks gestation o f ([facility]); Third trimester ([facility]); Multigravida of advanced maternal age in third trimester ([facility]); Excessive growth affecting management of , antepartum, single or unspecified fetus ([facility]); Low iron; HSV infection Start: 10-14-2024 End: [...] Comment on above: Third trimester preg lakia ([facility]); 33 weeks gestation of ([facility]) Start: 09-30-2024 End: 09-30-2024 ambulatory FLOWER OTERO [...] Start: 08-08-2024 End: 08-08-2024 ambulatory THEODORE Mendez [facility] Start: 08-07-2024 End: 08-07-2024 Chart abstracting Scanning Provider External M[facility] Start: 08-01-2024 End: 08-01-2024 flow sheet Theodore Adrian DO Work Phone: [facility] Comment on above: Second trimester pre gnancy; 24 weeks gestation of ; Multigravida of advanced maternal age in second trimester Start: 08-01-2024 End: 08-01-2024 ambulatory THEODORE ADRIAN Not Available Start: 07-01-2024 End: 07-01-2024 [...] OB Start: 05-02-2024 End: 05-02-2024 flow sheet Thoedore Adrian DO Work Phone: [facility] Comment on above: First trimester preg lakia; 11 weeks gestation of Start: 05-02-2024 End: 05-02-2024 ambulatory THEODORE ADRIAN Not Available Start: 04-11-2024 End: 04-11-2024 ambulatory Theodore Adrian Facility:[facility] Start: 04-11-2024 End: 04-11-2024 Departed Referred Theodore Adrian DO Work Phone: [facility] Start: 04-11-2024 End: 04-11-2024 Clinisync Result [...] Start: 04-26-2022 End: 04-27-[address] THEODORE CAMPBLEL . Facility:[facility] Start: 04-15-2022 End: 05-10-2022 ambulatory [...] Start: 12-09-2024 Influenza vaccination Influenza Vacc ine [facility] Start: 11-19-2024 End: 11-19-2024 Patient encounter procedure 11/19/2024 1:30 PM EDT Office Visit [facility] [address] [place] [id number] Flower Otero, [place] [address] [place], [place] [id number] [facility] Start: 11-04-2024 End: 11-04-2024 Patient encounter procedure 11/04/2024 9:30 AM EDT Routine [facility] [address] [place] [id number] Adrian, Theodore, DO [address] [place] [address] [facility] Start: 10-28-2024 End: 10-28-2024 Patient encounter procedure [facility] Comment on above: Arrived Start: 10-21-2024 End: 10-21-2025 CULTURE, GROUP B STREP WITH SUSCEPTIBLITY CULTURE, GROUP B STREP WITH SUSCEPTIBLITY Lab Routine Third trimester ([facility]) Expected: 10/21/2024, Expires: 10/21/2025 [facility] Work Phone: Comment on above: Expected: 10/21/2024 , Expires: 10/21/2025 Start: 10-21-2024 End: 10-21-2024 Patient encounter procedure 10/21/2024 2:00 PM EDT Routine [facility] [address] [place] [address] Theodore Campbell, [address] [place] [address] [facility] Start: 10-14-2024 End: 10-14-2024 Patient encounter procedure 10/14/2024 2:30 PM EDT Routine [facility] [address] [place] [id number] Theodore Campbell, DO [address] [place] [address] [facility] Start: 10-14-2024 End: 10-14-2024 Professional / ancillary services management 10/14/2024 2:00 PM EDT Ancillary Procedure [facility] [address] [facility] [place] [id number] [facility] Start: 09-30-2024 End: 09-30-2024 [...] [facility] [address] [place] [phone] Theodore Campbell, DO [address] [place] [address] [facility] Start: 09-17-2024 End: 09-17-2024 Professional / ancillary services management 09/17/2024 9:30 AM EDT Ancillary Procedure [facility] [address] [facility] [place] [address] [facility] Start: [...] 08/08/2024 8:00 AM EDT Appointment [facility] [address] [facility] [address] [place] [address] [facility] Start: 07-01-2024 End: 07-01-2024 Patient encounter procedure 07/01/2024 9:40 AM EDT Routine [facility] [address] [facility] [place] [address] Flower Otero PA [address] [place] [address] [facility] Start: 07-01-2024 End: 07-01-2024 Professional / ancillary services management 07/01/2024 8:30 AM EDT Ancillary Procedure [facility] [address] [place] [address] [facility] Start: 06-11-2024 End: 06-11-2024 Patient encounter procedure 06/11/2024 8:40 AM EST Office Visit [facility] [address] [facility] [place] [address] Theodore Campbell, DO [address] [place] [address] [facility] Start: 06-03-2024 End: 06-03-2024 Patient encounter procedure 06/03/2024 2:20 PM EST Routine [facility] [address] [facility] [place] [address] Theodore Campbell, DO [address] [place] [address] [facility] Start: 06-03-2024 End: 08-01-2024 [...] on above: Arrived Start: 04-11-2024 Urine culture [facility] Start: 04-11-2024 Bacteria identified in Urine by Culture Urine Culture [facility] Start: 04-11-2024 End: 04-11-2024 ambulatory 04/11/2024 1:00 PM EST Initial [facility] [address] [facility] [place] [address] [facility] Start: 04-11-2024 End: 04-11-2024 Professional / ancillary services management 04/11/2024 12:30 PM EST Ancillary Procedure [facility] [address] [place] [address] [facility] Start: 02-15-2024 End: 02-15-2024 Patient encounter procedure [facility] Comment on above: Arrived Start: 02-12-2024 End: 02-12-2024 Patient encounter procedure 02/12/2024 8:50 AM EST Office Visit [facility] [address] [place] [address] Theodore Campbell DO [address] [place] [address] Arrived [facility] Comment on above: Arrived Start: 2009 Screening for malign ant neoplasm of cervix Pap Smear [facility] Start: 11-29-2007 DTaP,Tdap and Td Vaccines (1 - Tdap) DTaP,Tdap and Td Vaccines (1 - Tdap) [facility] Start: 2006 Adult BMI Screening Adult BMI Screen ing [facility] Start: 2000 Depression Screening Depression Scre ening [facility] Start: 2000 Tobacco Screening Tobacco Screening [facility] CHLAMYDIA TRACHOMATI S (GENITO/STI) CHLAMYDIA TRACHOMATIS (GENITO/STI) Lab Routine STD exposure Ordered: 06/03/2024 [facility] Comment on above: Ordered: 06/03/2024 Cytology Cervical or vaginal smear or scraping study Pap Smear Pathology and Cytology Routine Well woman exam with routine gynecological exam Ordered: 02/15/2024 [facility] Work Phone: Comment on above: Ordered: 02/15/2024 Hemoglobin A1c/Hemoglobin.total in Blood Hemoglobin A1c Lab Routine Third trimester 28 weeks gestation of Size of fetus inconsistent with dates in second trimester Ordered: 08/27/2024 [facility] Comment on above: Ordered: 08/27/2024 Human papilloma viru s DNA [Presence] in Unspecified specimen by Probe with amplification HPV DNA probe, amplified Microbiology Routine Well woman exam with routine gynecological exam Ordered: 02/15/2024 [facility] Comment on above: Ordered: 02/15/2024 Neisseria gonorrhoea e DNA [Presence] in Unspecified specimen by LYNNETTE with probe detection Neisseria gonorrhea DNA probe, direct Lab Routine STD exposure Ordered: 06/03/2024 [facility] Comment on above: Ordered: 06/03/2024 SURESWAB(R) ADVANCED VAGINITIS PLUS, TMA SURESWAB(R) ADVANCED VAGINITIS PLUS, TMA Pathology and Cytology Routine STD exposure Ordered: 06/03/2024 [facility] Work Phone: Comment on above: Ordered: 06/03/2024 Payers Date Payer Category Payer Self-pay 2024 [employer] [facility] - [facility] [id number] 2023 [employer] [facility] [id number] [id number] 2023 Unknown [id number] 1988 Unknown [id number] 2.16.840.1.924980.3.579. 2.593 1988 Unknown [id number] 2.16.840.1.120133.3.579. 2.593 1988 Unknown [id number] 2.16.840.1.754288.3.579. 2.593 1988 Unknown [id number] 2.16.840.1.853222.3.579. 2.593 1988 Unknown [id number] 2.16.840.1.539748.3.579. 2.593 1988 Unknown [id number] 2.16.840.1.514253.3.579. 2.593 1988 Unknown [id number] 2.16.840.1.022683.3.579. 2.593 1988 Unknown [id number] 2.16.840.1.965884.3.579. 2.593 1988 Unknown [id number] 2.16840.1.491733.3.579. 2.593 1988 Unknown [id number] 2.840.1.957016.3.579. 2.593 1988 Unknown [id number] 2.16840.1.511935.3.579. 2.593 1988 Unknown [id number] 2.16840.1.866223.3.579. 2.593 1988 Unknown [id number] 2.16840.1.082721.3.579. 2.1286 1988 Unknown [id number] 2.16840.1.501892.3.579. 2.1259 1988 Unknown [id number] 2.16840.1.478493.3.579. 2.1259 1988 Unknown [id number] 2.16840.1.195393.3.579. 2.1259 1988 Unknown [id number] 2.16.840.1.289986.3.579. 2.1259 1988 Unknown [id number] 2.16840.1.095658.3.579. 2.1259 1988 Unknown [id number] 2.16.840.1.769760.3.579. 2.1259 1988 Unknown [id number] 2.16.840.1.939618.3.579. 2.1259 1988 Unknown [id number] 2.16.840.1.937485.3.579. 2.1259 1988 Unknown [id number] 2.16.840.1.283429.3.579. 2.1258 1988 Unknown [id number] 2.16.840.1.646027.3.579. 2.1259 1988 Unknown [id number] 2.840.1.679283.3.579. 2.1258 1988 Unknown [id number] 2.16840.1.228261.3.579. 2.1258 1988 Unknown [id number] .840.1.418474.3.579. 2.1258 1988 Unknown [id number] 2.840.1.754138.3.579. 2.1258 1988 Unknown [id number] 2.840.1.510986.3.579. 2.1258 1988 Unknown [id number] 2.16.840.1.783045.3.579. 2.9 1988 Unknown [id number] 2.840.1.331423.3.579. 2.1258 1988 Unknown [id number] 2.16840.1.725510.3.579. 2.1259 1988 Unknown [id number] 2.16840.1.972802.3.579. 2.1259 1959 Private Health Insurance [id number] Unknown [id number] 2.16840.1.163449.3.579. 2.531 Unknown [place] BC/BS [id number] Social History Date Type Detail Facility Start: 12-01-2022 End: 08-07-2024 Tobacco smoking status NHIS Never smoked tobacco [facility] Start: 08-24-2023 End: 11-04-2024 Alcoholic beverage intake Lifetime non-drinker (finding) [facility] Start: 12-01-2022 End: 02-12-2024 History of Social function [facility] Start: 12-01-2022 End: 02-12-2024 Tobacco use panel [facility] Start: 12-01-2022 Education 21 [facility] Start: 12-01-2022 Alcohol Comment Caffeine intake: non e [facility] Start: 1990 Sex assigned at Not on file N [facility] Start: 02-25-2024 [facility] Tobacco smoking stat us NJIS Unknown if ever smoked [facility] Work Phone: Start: 04-12-2024 End: 08-05-2024 Sex Female (finding) [facility] Start: 1990 Sex Assigned At Female F [facility] Start: 08-07-2024 Tobacco use and exposure Smokeless tobacco non-user [facility] Medical Equipment Procedure Code Equipment Code Equipment Origin al Text Equipment Identifier Dates 1 strip by In Vi tro route Daily Use in the morning prior to breakfast, 1 hour after each meal for a total of 4times daily. [id number] Start: 07-25-2024 End: 08-27-2024 1 each by In Vit ro route Daily Use to check FSBS four times daily [id number] Start: 07-25-2024 End: 08-27-2024 Clinical Notes 02-12-2024 [...] capsule Multiple Vitamin (Multivitamin Adult) tablet Orally Alqgtagy-Uxm-Pi-FA ( 1 + IRON PO) progesterone 200 [...] Yeast infection 12/02/2022 31 weeks gestation of ([facility]) 09/17/2024 Third trimester ([facility]) 09/17/2024 Multigravida of advanced maternal age in third trimester ([facility]) 09/17/2024 Resolved Ambulatory Problems Diagnosis Date Noted Bleeding in early ([facility]) 12/02/2022 Past Medical History: Diagnosis Date Frequent UTI Herpes History of chlamydia 2008 History of depression 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 Personal history of other medical treatment ([facility]) [place] teeth removed HISTORY PAST MEDICAL HISTORY SOCIAL HISTORY Past Medical History: Diagnosis Date Bleeding in early ([facility]) 12/02/2022 Frequent UTI Herpes History of chlamydia 2008 History of depression no meds 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 Exam conducted with a septic technician present. Vitals: Estimated body mass index is 42.61 kg/m as calculated from the following: Height as of 08/22/22: 5' 8.5 . Weight as of 10/28/24: 284 lb 6.4 oz. BP: Patient's last menstrual period was 02/11/2024. ASSESSMENT & PLAN ICD-10-CM 1. Third trimester ([facility]) Z34.93 POCT urinalysis dipstick manually resulted 2. 38 weeks gestation of ([facility]) Z3A.38 3. HSV infection B00.9 4. Multigravida of advanced maternal age in third trimester ([facility]) O09.523 Return OB: Patient presents today for [...] Theodore Campbell DO documented in this encounter [facility] 10-28-2024 History of Presen t illness Narrative Reason for Appointment: Patient ID: Beulah Murphy is a 33 y.o. female who presents for Routine Visit Patient presents today for Return OB appointment. MEDICATIONS Current Outpatient Medications Medication Instructions Uktpzygb-Ffw-Fx-FA ( 1 + IRON PO) valACYclovir (VALTREX) [...] Yeast infection 12/02/2022 31 weeks gestation of ([facility]) 09/17/2024 Third trimester ([facility]) 09/17/2024 Multigravida of advanced maternal age in third trimester ([facility]) 09/17/2024 Resolved Ambulatory Problems Diagnosis Date Noted Bleeding in early ([facility]) 12/02/2022 Past Medical History: Diagnosis Date Frequent UTI Herpes History of chlamydia 2008 History of depression 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 Personal history of other medical treatment ([facility]) [place] teeth removed HISTORY PAST MEDICAL HISTORY SOCIAL HISTORY Past Medical History: Diagnosis Date Bleeding in early ([facility]) 12/02/2022 Frequent UTI Herpes History of chlamydia 2008 History of depression no meds 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 Exam conducted with a septic technician present. Vitals: Estimated body mass index is 42.61 kg/m as calculated from the following: Height as of 08/22/22: 5' 8.5 . Weight as of this encounter: 284 lb 6.4 oz. BP: 108/70 Patient's last menstrual period was 02/11/2024. ASSESSMENT & PLAN ICD-10-CM 1. Third trimester ([facility]) Z34.93 POCT urinalysis dipstick manually resulted 2. 37 weeks gestation of ([facility]) Z3A.37 POCT urinalysis dipstick manually resulted Return [...] Theodore Campbell DO documented in this encounter [facility] 10-21-2024 History of Presen t illness Narrative Reason for Appointment: Patient ID: Beulah Murphy is a 33 y.o. female who presents for Routine Visit Patient presents today for Return OB appointment. MEDICATIONS Current Outpatient Medications Medication Instructions Veoljpso-Rik-Na-FA ( 1 + IRON PO) valACYclovir (VALTREX) [...] Yeast infection 12/02/2022 31 weeks gestation of ([facility]) 09/17/2024 Third trimester ([facility]) 09/17/2024 Multigravida of advanced maternal age in third trimester ([facility]) 09/17/2024 Resolved Ambulatory Problems Diagnosis Date Noted Bleeding in early ([facility]) 12/02/2022 Past Medical History: Diagnosis Date Frequent UTI Herpes History of chlamydia 2008 History of depression 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 2011 Personal history of other medical treatment ([facility]) [place] teeth removed HISTORY PAST MEDICAL HISTORY SOCIAL HISTORY Past Medical History: Diagnosis Date Bleeding in early ([facility]) 12/02/2022 Frequent UTI Herpes History of chlamydia 2008 History of depression no meds 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 Exam conducted with a septic technician present. Vitals: Estimated body mass index is 42.44 kg/m as calculated from the following: Height as of 08/22/22: 5' 8.5 . Weight as of this encounter: 283 lb 4 oz. BP: 110/72 Patient's last menstrual period was 02/11/2024. ASSESSMENT & PLAN ICD-10-CM 1. Third trimester ([facility]) Z34.93 CULTURE, GROUP B STREP WITH SUSCEPTIBLITY CULTURE, GROUP B STREP WITH SUSCEPTIBLITY POCT urinalysis dipstick manually resulted 2. 36 weeks gestation of ([facility]) Z3A.36 3. Multigravida of advanced maternal age in third trimester ([facility]) O09.523 4. HSV infection B00.9 5. Excessive growth affecting management of , antepartum, single or unspecified fetus ([facility]) O36.60X0 Patient is doing well but has [...] Theodore Campbell DO documented in this encounter [facility] 10-14-2024 History of Presen t illness Narrative Reason for Appointment: Patient ID: Beulah Murphy is a 33 y.o. female who presents for Routine Visit Patient presents today for Return OB appointment. MEDICATIONS Current Outpatient Medications Medication Instructions Uwwfojtx-Ukl-Eq-FA ( 1 + IRON PO) ALLERGIES Allergies Allergen Reactions Cefadroxil Hives Other Reaction(s): hives, Unknown Other Reaction(s): hives, rash Latex Itching Other Reaction(s): Itching Other Reaction(s): Hives Paroxetine Other Reaction(s): Unknown PROBLEMS Active Ambulatory Problems Diagnosis Date Noted Anovulation 12/02/2022 DUB (dysfunctional uterine bleeding) 12/02/2022 Menstrual disorder 12/02/2022 Missed menses 12/02/2022 Yeast infection 12/02/2022 31 weeks gestation of ([facility]) 09/17/2024 Third trimester ([facility]) 09/17/2024 Multigravida of advanced maternal age in third trimester ([facility]) 09/17/2024 Resolved Ambulatory Problems Diagnosis Date Noted Bleeding in early ([facility]) 12/02/2022 Past Medical History: Diagnosis Date Frequent UTI Herpes History of chlamydia 2008 History of depression 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 Personal history of other medical treatment ([facility]) [place] teeth removed HISTORY PAST MEDICAL HISTORY SOCIAL HISTORY Past Medical History: Diagnosis Date Bleeding in early ([facility]) 12/02/2022 Frequent UTI Herpes History of chlamydia 2008 History of depression no meds 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 Exam conducted with a septic technician present. Vitals: Estimated body mass index is 42.67 kg/m as calculated from the following: Height as of 08/22/22: 5' 8.5 . Weight as of this encounter: 284 lb 12.8 oz. BP: 110/70 Patient's last menstrual period was 02/11/2024. ASSESSMENT & PLAN ICD-10-CM 1. 35 weeks gestation of ([facility]) Z3A.35 POCT urinalysis dipstick manually resulted 2. Third trimester ([facility]) Z34.93 POCT urinalysis dipstick manually resulted 3. Multigravida of advanced maternal age in third trimester ([facility]) O09.523 4. Excessive growth affecting management of , antepartum, single or unspecified fetus ([facility]) O36.60X0 5. Low iron E61.1 Patient presents [...] Theodore Campbell DO documented in this encounter [facility] 09-30-2024 History of Presen t illness Narrative [...] meal for a total of 4times daily. Veudhsgr-Nun-Ec-FA ( 1 + IRON PO) ALLERGIES Allergies Allergen Reactions Cefadroxil Hives Other Reaction(s): hives, Unknown Other Reaction(s): hives, rash Latex Itching Other Reaction(s): Itching Other Reaction(s): Hives Paroxetine Other Reaction(s): Unknown PROBLEMS Active Ambulatory Problems Diagnosis Date Noted Anovulation 12/02/2022 DUB (dysfunctional uterine bleeding) 12/02/2022 Menstrual disorder 12/02/2022 Missed menses 12/02/2022 Yeast infection 12/02/2022 31 weeks gestation of ([facility]) 09/17/2024 Third trimester ([facility]) 09/17/2024 Multigravida of advanced maternal age in third trimester ([facility]) 09/17/2024 Resolved Ambulatory Problems Diagnosis Date Noted Bleeding in early ([facility]) 12/02/2022 Past Medical History: Diagnosis Date Frequent UTI Herpes History of chlamydia 2008 History of depression 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 2011 Personal history of other medical treatment ([facility]) [place] teeth removed HISTORY PAST MEDICAL HISTORY SOCIAL HISTORY Past Medical History: Diagnosis Date Bleeding in early ([facility]) 12/02/2022 Frequent UTI Herpes History of chlamydia 2008 History of depression no meds 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 2011 Personal history of other medical treatment Frenectomy ([facility]) x2 [place] teeth removed Social History Tobacco Use Smoking [...] 1. Third trimester ([facility]) Z34.93 POCT urinalysis dipstick manually resulted 2. 33 weeks gestation of ([facility]) Z3A.33 Return OB: Patient presents today for [...] of: BRAIN Martinez documented in this encounter [facility] 09-17-2024 History of Presen t illness Narrative [...] iron polysaccharides (PROFE) 391.3 mg, Oral, Daily Pkmkjchx-Hqv-Jo-FA ( 1 + IRON PO) ALLERGIES Allergies [...] 2011 Personal history of other medical treatment [place] teeth removed HISTORY PAST MEDICAL HISTORY SOCIAL HISTORY Past Medical History: Diagnosis Date Bleeding in early 12/02/2022 Frequent UTI Herpes History of chlamydia 2008 History of depression no meds 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 2011 Personal history of other medical treatment Frenectomy x2 [place] teeth removed Social History Tobacco Use Smoking [...] nursing note reviewed. Exam conducted with a septic technician present. Vitals: Estimated body mass index is [...] Theodore Campbell DO documented in this encounter [facility] 08-27-2024 History of Presen t illness Narrative Reason for Appointment: Patient ID: Beulah Murphy is a 33 y.o. female who presents for Routine Visit Patient presents today for Return OB appointment. MEDICATIONS Current Outpatient Medications Medication Instructions Alcohol Swabs (Alcohol Prep Pad) 70 % pads 1 Pad, Topical, Daily, Use four times daily to check FSBS. Blood Glucose Monitoring Suppl ([employer]-Open[employer]riculum Glucometer) w/Device kit 1 kit, Does not [...] Use to check FSBS four times daily Qixaxfga-Jmc-Dj-FA ( 1 + IRON PO) ALLERGIES Allergies [...] 2010 Personal history of other medical treatment [place] teeth removed HISTORY PAST MEDICAL HISTORY SOCIAL HISTORY Past Medical History: Diagnosis Date Bleeding in early 12/02/2022 Frequent UTI Herpes History of chlamydia 2008 History of depression no meds 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 Personal history of other medical treatment Frenectomy x2 [place] teeth removed Social History Tobacco Use Smoking [...] day. Patient going [facility] a trip [facility], she will return at 31 weeks. Patient [...] of: BRAIN Martinez documented in this encounter [facility] 08-01-2024 History of Presen t illness Narrative [...] Use to check FSBS four times daily Zpzptomr-Amd-Lf-FA ( 1 + IRON PO) ALLERGIES Allergies [...] 2011 Personal history of other medical treatment [place] teeth removed HISTORY PAST MEDICAL HISTORY SOCIAL HISTORY Past Medical History: Diagnosis Date Bleeding in early 12/02/2022 Frequent UTI Herpes History of chlamydia 2008 History of depression no meds 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 2011 Personal history of other medical treatment Frenectomy x2 [place] teeth removed Social History Tobacco Use Smoking [...] nursing note reviewed. Exam conducted with a septic technician present. Vitals: Estimated body mass index is [...] not cleared. Patient will be [facility] to [facility] for Level II Scan and consult if needed. Discussed patient upcoming vacation and precautions given. Patient will have growth scan start at 28 weeks gestation. Patient to return to clinic in 4 weeks. Patient to drop off FSBS results for routine in the meantime. Documented by Daniela Candelaria LPN on behalf of: Theodore Campbell DO documented in this encounter [facility] 06-03-2024 History of Presen t illness Narrative Reason for Appointment: Patient ID: Beulah Murphy is a 33 y.o. female who presents for Routine Visit Patient presents today for Return OB appointment. MEDICATIONS Current Outpatient Medications Medication Instructions Ptttvwlg-Aim-Jl-FA ( 1 + IRON PO) Progesterone 200 [...] 2011 Personal history of other medical treatment [place] teeth removed HISTORY PAST MEDICAL HISTORY SOCIAL HISTORY Past Medical History: Diagnosis Date Bleeding in early 12/02/2022 Frequent UTI Herpes History of chlamydia 2007 History of depression no meds 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 Personal history of other medical treatment Frenectomy x2 [place] teeth removed Social History Tobacco Use Smoking [...] nursing note reviewed. Exam conducted with a septic technician present. Vitals: Estimated body mass index is [...] off on referral at this time. Discussed Pand[facility] testing if patient desires to check for genetic testing and patient declines at this time as well. Obtained vaginal cultures without issue & patient to return to clinic in 4 weeks for routine OB appointment. Documented by Daniela Candelaria LPN on behalf of: Theodore Campbell DO documented in this encounter [facility] [place] History of Presen t illness Narrative Reason for Appointment: Patient ID: Beulah Murpyh is a 33 y.o. female who presents for Routine Visit Patient presents today for Return OB appointment. MEDICATIONS Current Outpatient Medications Medication Instructions Islwkmtg-Gpk-Gr-FA ( 1 + IRON PO) Vit-Fe Brbpvfp-FZ-CMP ( VITAMIN/MIN +DHA PO) Progesterone 200 MG [...] 2010 Personal history of other medical treatment [place] teeth removed HISTORY PAST MEDICAL HISTORY SOCIAL HISTORY Past Medical History: Diagnosis Date Bleeding in early 12/02/2022 Frequent UTI Herpes History of chlamydia 2008 History of depression no meds 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 Personal history of other medical treatment Frenectomy x2 [place] teeth removed Social History Tobacco Use Smoking [...] of: ray martinez documented in this encounter [facility] [place] 02[place] History of Presen t illness Narrative Reason for Appointment: Patient ID: Beulah Murphy is a 33 y.o. female who presents for Well Women Visit Patient presents today for Annual Exam. MEDICATIONS Current Outpatient Medications Medication Instructions co-enzyme Q-10 30 mg, Oral, Daily guaiFENesin (MUCINEX) 1,200 mg, Oral, 2 times daily, Do not crush, chew, or split. letrozole (FEMARA) 2.5 mg, Oral, Daily Ftxkladq-Nev-Ki-FA ( 1 + IRON PO) Vit-Fe Nvlidkh-GS-XYX ( VITAMIN/MIN +DHA PO) ALLERGIES Allergies Allergen [...] 2010 Personal history of other medical treatment [place] teeth removed HISTORY PAST MEDICAL HISTORY SOCIAL HISTORY Past Medical History: Diagnosis Date Bleeding in early 12/02/2022 Frequent UTI Herpes History of chlamydia 2007 History of depression no meds 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 Personal history of other medical treatment Frenectomy x2 [place] teeth removed Social History Tobacco Use Smoking [...] nursing note reviewed. Exam conducted with a septic technician present. Vitals: Estimated body mass index is [...] of: BRAIN Martinez documented in this encounter [facility] [place] 02-12-[facility]24 History of Presen t illness Narrative Reason for Appointment: Patient ID: Beulah Murphy is a 33 y.o. female who presents for Infertility (Pt present today to discuss infertility) Patient presents today for Consult appointment. MEDICATIONS Current Outpatient Medications Medication Instructions Fbmmvnok-Yjk-Mm-FA ( 1 + IRON PO) Vit-Fe Tiqvmom-MW-RWF ( VITAMIN/MIN +DHA PO) ALLERGIES Allergies Allergen [...] 2010 Personal history of other medical treatment [place] teeth removed HISTORY PAST MEDICAL HISTORY SOCIAL HISTORY Past Medical History: Diagnosis Date Bleeding in early 12/02/2022 Frequent UTI Herpes History of chlamydia 2008 History of depression no meds 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 Personal history of other medical treatment Frenectomy x2 [place] teeth removed Social History Tobacco Use Smoking [...] nursing note reviewed. Exam conducted with a septic technician present. Vitals: Estimated body mass index is [...] Theodore Campbell DO documented in this encounter [facility] Healthcare Evaluation note Diagnosis Anovulation Female infertility associated with anovulation documented [facility] this encounter [facility]* Diagnosis Well woman exam with routine gynecological exam Routine gynecological examination documented in this encounter [facility]Evaluation noteNo assessment information availableOhio[facility] Work Phone: Evaluation note* Diagnosis [...] [facility] HealthcareInstructionsNot on filedocumented in this encounterPro[facility] Purpose Family History [...] section and content) DATE CREATED AUTHOR 07/05/2021 [facility] DATE CREATED AUTHOR AUTHOR'S ORGANIZ ATION 08/23/2022 [facility] DATE CREATED AUTHOR AUTHOR'S ORGANIZ ATION 04/19/2024 [facility] DATE CREATED AUTHOR AUTHOR'S ORGANIZ ATION 08/13/2024 [facility] DATE CREATED AUTHOR AUTHOR'S ORGANIZ ATION 11/04/2024 [facility] EPIC Reason for Visit [...] BE BASED ON THE PRIMARY CLINICAL RECORDS. [facility]. provides no warranty or guarantee of the accuracy or completeness of information in this document.
[2024-11-12] MEDS: 0.9 % SODIUM CHLORIDE 1,000 ML 1000 ML IV ×2 (06:00→06:55)
[2024-11-12 06:37] LABS: Hematocrit 33.3 % (36.0-48.0); Hemoglobin 11.3 g/dL (12.0-16.0); Immature Granulocytes Abs Auto 0.09 10^3/uL (0.00-0.03); Immature Granulocytes Pct Auto 0.8 % (0.0-0.5); Lymphocytes Absolute Auto 2.7 10^3/uL (1.2-3.8); Mean Corpuscular HGB Conc 33.9 g/dL (29.9-35.2); Mean Corpuscular Hemoglobin 30.3 pg (26.7-34.0); Mean Corpuscular Volume 89.3 fL (81.0-99.0); Platelet Count 261 10^3/uL (150-450); Red Blood Count 3.73 10^6/uL (4.20-5.40); White Blood Count 11.6 10^3/uL (4.0-11.0)
[2024-11-12 06:48] LABS: Glucose Urine UA NEGATIVE (NEGATIVE)
[2024-11-12] MEDS: CITRIC ACID/SODIUM CITRATE 30 ML SOLUTION ORACIT SHOHL'S SOLN PO (07:10)
[2024-11-12] MEDS: METOCLOPRAMIDE HCL 10 MG/2 ML VIAL IVP (07:10)
[2024-11-12] MEDS: FAMOTIDINE/PF 20 MG/2 ML VIAL IV (07:11)
[2024-11-12] MEDS: CEFAZOLIN SODIUM/DEXTROSE,ISO 2 GM/50 ML PIGGYBACK IV ×2 (07:11→13:45)
[2024-11-12 07:12] LABS: Cannabinoid Screen Urine NEGATIVE (NEGATIVE); Cast Seen? NONE SEEN #/LPF (NONE SEEN); Crystals Seen? None Seen #/HPF (None Seen); Methamphetamines Screen Urine NEGATIVE (NEGATIVE); Tricyclic Antidepressant Urine NEGATIVE (NEGATIVE); Urine Culture Indicated YES-LC
[2024-11-12] MEDS: KETOROLAC TROMETHAMINE 30 MG/ML VIAL IVP ×2 (08:10→13:44)
--- NOTE | 2024-11-12 08:40 | P.ON_ITS ---
Brief Operative Note Date of procedure: 11/12/24 Pre-op diagnosis general: iup at 39wks, previous c/s Post-op diagnosis: same as pre-op Procedure: NAME OF PROCEDURE: [ section ] PROCEDURE: Patient was taken back to the Operating Room where she was given a spinal anesthesia with Duramorph without difficulty. She was prepped and draped in the normal sterile fashion. A Pfannenstiel skin incision was then made 2 cm above the symphysis pubis and carried down to underlying rectus fascia using a Bovie. The fascia was incised in the midline and extended laterally using Foreman scissors. Two Letty clamps were placed on the superior aspect of the fascia and dissected off the underlying rectus muscles. The same was performed on the inferior aspect as well. The muscles were then in the midline. Peritoneum was identified and entered bluntly. The peritoneum was then extended superiorly and inferiorly with good visualization of the bladder. The bladder blade was inserted. A low transverse incision was made on the patient's uterus and extended laterally digitally. The was then delivered atraumatically after the bladder blade was removed in the cephalic position. The cord was clamped and cut. Cord blood was obtained. The was handed off to awaiting team. The patient's placenta was spontaneously delivered. The uterus was then exteriorized. The uterus was cleared of all clots and debris. The bladder blade was reinserted. The patient's uterine incision was closed using #0 Vicryl in a running lock fashion. Excellent hemostasis was assured. The uterus was then returned to the patient's abdomen. The patient's abdomen was copiously irrigated using warm saline. Peritoneal gutters were cleared of all clots and debris. Again excellent hemostasis was assured. The patient's peritoneum was closed using 3-0 Vicryl in a running fashion. The patient's fascia was closed using #0 Vicryl in a running fashion. The patient's skin was closed using 4-0 Vicryl subcuticularly. The patient tolerated the procedure well. Sponge, lap, and needle counts were correct x2. The patient was taken to the Recovery Room in stable condition. Anesthesia: spinal Surgeon: Theodore Campbell Social Worker Health Services: Elizabeth Drake Estimated blood loss (mL): 575 Pathology: none sent Condition: stable Disposition: PACU Urinary Catheter Management Urinary Catheter Management Urethral: Cath placed during this visit: no
--- NOTE | 2024-11-12 08:41 | P.OBPRC_ITS ---
Procedure Pre-op/Post-op diagnoses: Pre-Op/Post-Op Diagnoses Operation Date: 11/12/24 07:30 <No data on this case meets the specified criteria> Procedure: Procedures Operation Date: 11/12/24 07:30 Actual Procedure Side Surgeon p Repeat Not Applicable Theodore Campbell DO Woven Wood Shade Assembler: Elizabeth Drake Estimated blood loss (mL): 575 Disposition: floor Anesthesia type: Spinal
--- NOTE | 2024-11-12 10:44 | PC.NURSE ---
1035-Cool rag applied to pt forehead at this time. Pt states she is just feeling a little warm. Pt denies other needs at this time.
--- NOTE | 2024-11-12 10:45 | PC.NURSE ---
1040-Report given to Jayjay at this time. Care relinquished.
--- NOTE | 2024-11-12 10:47 | PC.NURSE ---
Report from STORAGE CONSULTANT at this time.
[2024-11-12] MEDS: ENOXAPARIN SODIUM 40 MG/0.4 ML SYRINGE SUBQ (21:55)
[2024-11-13 02:40] VITALS: BP 100/66; PULSE 94; TEMP 37.1
[2024-11-13 06:13] VITALS: BP 111/73
[2024-11-13 06:47] LABS: Hematocrit 28.5 % (36.0-48.0); Hemoglobin 9.6 g/dL (12.0-16.0); Immature Granulocytes Abs Auto 0.07 10^3/uL (0.00-0.03); Immature Granulocytes Pct Auto 0.6 % (0.0-0.5); Lymphocytes Absolute Auto 1.6 10^3/uL (1.2-3.8); Mean Corpuscular HGB Conc 33.7 g/dL (29.9-35.2); Mean Corpuscular Hemoglobin 30.3 pg (26.7-34.0); Mean Corpuscular Volume 89.9 fL (81.0-99.0); Platelet Count 240 10^3/uL (150-450); Red Blood Count 3.17 10^6/uL (4.20-5.40); White Blood Count 12.1 10^3/uL (4.0-11.0)
--- NOTE | 2024-11-13 07:48 | PM.OBPN ---
OB - PN: Subj Subjective Patient comments: no complaints [place] status: well feeding status: exclusively Exam Constitutional Vital Signs, click to edit/add: Last Vital Signs Temp 98.7 F 11/13/24 02:40 Pulse 94 H 11/13/24 02:40 Resp 15 11/13/24 02:40 BP 111/73 11/13/24 06:13 Pulse Ox 98 11/12/24 17:11 O2 Del Method Room Air 11/13/24 06:35 Documenting provider has reviewed patient's vital signs: yes Common normals: no apparent distress General appearance: cooperative, comfortable, well kempt and well developed Orientation/consciousness: Yes awake, Yes oriented to person, Yes oriented to place and Yes oriented to time HENMT Common normals: normocephalic Eye Common normals: EOMs intact bilaterally General eye: normal appearance of both eyes Neck & C-Spine Common normals: full ROM and no lymphadenopathy Lymph Lymphatic: no lymphadenopathy noted Respiratory Common normals: normal respiratory effort Effort & inspection: able to speak in complete sentences Auscultation: clear to auscultation bilaterally Cardio Common normals: regular rate and regular rhythm Rate: regular rate Rhythm: regular rhythm GI Common normals: Normal to inspection, nondistended, normoactive bowel sounds present, soft to palpation and non-tender Inspection: normal to inspection Auscultation: normoactive bowel sounds Palpation: soft Common normals: no CVA tenderness Back & Pelvis Common normals: no CVA tenderness Extremity Common normals: normal to inspection and full ROM Neuro Common normals: oriented x3 Sensorium/orientation: awake, alert, oriented to person, oriented to place and oriented to time Psych Common normals: mental status grossly normal, thought process normal, cooperative, affect normal, speech normal, activity/motor behavior normal, denies hallucinations, denies homicidal ideation and denies suicidal ideation Attitude: calm Activity/motor behavior: appropriate eye contact Thought process: normal thought process Results Labs Labs: Short CBC 11/13/24 Range/Units 06:26 WBC 12.1 H (4.0-11.0) 10^3/uL Hgb 9.6 L (12.0-16.0) g/dL Hct 28.5 L (36.0-48.0) % Plt Count 240 (150-450) 10^3/uL Urinary Catheter Management Urinary Catheter Management Urethral: Cath placed during this visit: yes, but has since been removed by the nurse Removal date: 11/12/24 Removal time: 22:15 OB - PN: A/P Plan - day: 1 Plan: routine postop care Time Spent with Patient Time: Total time spent is greater than 50% in coordination of care (as documented) at patient's floor/unit and/or counseling patient: Total time spent with greater than 50% in coordination of care (as documented) at patient's floor/unit and/or counseling patient: less than 15 minutes
[2024-11-13] MEDS: DOCUSATE SODIUM 100 MG CAPSULE PO ×2 (08:22→22:02)
--- NOTE | 2024-11-13 09:57 | SWNOTE1 ---
SW met with pt and father of baby to discuss any discharge needs. They have 2 other daughters who are 9 and 13 in the home. They do have everything they need at home for baby. They voiced they have a good support system at home as well. Pt voiced she did not have any post with her other 2 children. No questions/concerns at this time. SW to follow as needed.
[2024-11-13 10:15] VITALS: TEMP 37.1
[2024-11-13 10:31] VITALS: BP 103/67
[2024-11-13 15:36] VITALS: BP 104/70
[2024-11-13 15:40] VITALS: TEMP 36.7
[2024-11-13] MEDS: IBUPROFEN 600 MG TABLET PO (18:21)
--- NOTE | 2024-11-13 19:40 | W.PC.ACHO ---
Registration Status: ADM IN Primary Language: Comoran Preferred Language: Comoran Report given to Nathalie DORSEY at 1900. Care relinquished at this time. Active Medications Generic Name Dose Route Start Last Admin Trade Name Freq PRN Reason Stop Dose Admin Al Hydroxide/Mg Hydroxide 2,400 mg 11/12/24 08:42 Magnesium Hydroxide 2,400 Mg/10 Ml Oral.Susp PO Q6H PRN Dyspepsia Diphtheria/Tetanus/Acell Pertussis 0.5 ml 11/14/24 09:00 Diphth,Pertuss(Acell),Tet Vac 0.5 Ml Syringe IM 11/14/24 09:01 .ONCE ONE Docusate Sodium 100 mg 11/13/24 09:00 11/13/24 08:22 Docusate Sodium 100 Mg Capsule PO 100 mg BID JOSHUA Administration Enoxaparin Sodium 40 mg 11/12/24 20:00 11/12/24 21:55 Enoxaparin Sodium 40 Mg/0.4 Ml Syringe SUBQ 40 mg Q24H JOSHUA Administration Oxytocin/Sodium Chloride 20 units in 1,000 mls @ 125 mls/hr 11/12/24 05:45 Pitocin 20 Unit/1,000 Ml-Ns IV Q8H PRN POST DELIVERY Promethazine HCl 25 mg/ Sodium 51 mls @ 204 mls/hr 11/12/24 08:42 Chloride IV Q6H PRN Nausea And Vomiting Sodium Chloride 1,000 mls @ 125 mls/hr 11/12/24 08:42 Sodium Chloride 0.9% 1,000 Ml IV .Q8H PRN IF NOT TOLERATING PO FLUIDS OR Ibuprofen 600 mg 11/13/24 16:51 11/13/24 18:21 Ibuprofen 600 Mg Tablet PO 600 mg Q6H PRN Administration Moderate Pain Ketorolac Tromethamine 30 mg 11/12/24 08:42 11/12/24 13:44 Ketorolac Tromethamine 30 Mg/Ml Vial IVP 11/14/24 08:43 30 mg Q6H PRN Administration Pain Measles/Mumps/Rubella Vaccine Live 0.5 ml 11/14/24 09:00 Measles,Mumps,Rubella Vacc/Pf 0.5 Ml Vial SQ 11/14/24 09:01 .ONCE ONE Ondansetron HCl 4 mg 11/12/24 08:42 Ondansetron Pf 4 Mg/2 Ml Vial IV Q6H PRN Nausea And Vomiting Ondansetron HCl 4 mg 11/12/24 08:42 Ondansetron 4 Mg Rapdis Tablet PO Q6H PRN Nausea And Vomiting Oxycodone/Acetaminophen 1 tab 11/12/24 08:42 Oxycodone Hcl/Acetaminophen 5mg/325mg PO Q4H PRN Pain Scale 4-6 Oxycodone/Acetaminophen 2 tab 11/12/24 08:42 Oxycodone Hcl/Acetaminophen 5mg/325mg PO Q4H PRN Pain Scale 7-10 Senna 17.2 mg 11/12/24 20:00 Sennosides 8.6 Mg Tablet PO QHS PRN Constipation Simethicone 80 mg 11/12/24 08:42 Simethicone 80 Mg Tab.Chew PO QID PRN Abdominal Distention Valacyclovir HCl 500 mg 11/13/24 09:00 11/13/24 16:52 Valacyclovir Hcl 500 Mg Tablet PO Not Given DAILY JOHSUA Respiratory Oxygen Delivery Method Room Air Oxygen Delivery Method Room Air Oxygen Delivery Method Room Air Oxygen Delivery Method Room Air Oxygen Delivery Method Room Air Cardiology Heart Sounds Regular,Strong Heart Sounds Regular Bowels Bowel Pattern No Bowel Movement Bowel Pattern No Bowel Movement Renal Bladder Pattern Continent Bladder Pattern Continent Catheter Date Urinary Catheter Removed 11/12/24 [Urethral] Date Urinary Catheter Removed 11/12/24 [Urethral] Time Urinary Catheter 22:15 Discontinued [Urethral] Time Urinary Catheter 22:15 Discontinued [Urethral]
[2024-11-13] MEDS: ENOXAPARIN SODIUM 40 MG/0.4 ML SYRINGE SUBQ (22:02)
[2024-11-14] MEDS: IBUPROFEN 600 MG TABLET PO ×2 (00:39→08:32)
[2024-11-14 00:42] VITALS: BP 113/74; TEMP 37.1
--- NOTE | 2024-11-14 08:24 | PM.OBPN ---
OB - PN: Subj Subjective Patient comments: no complaints [place] status: doing well feeding status: exclusively Exam Constitutional Vital Signs, click to edit/add: Last Vital Signs Temp 98.8 F 11/14/24 00:42 Pulse 94 H 11/13/24 02:40 Resp 16 11/13/24 15:40 BP 113/74 11/14/24 00:42 Pulse Ox 98 11/12/24 17:11 O2 Del Method Room Air 11/14/24 00:42 Documenting provider has reviewed patient's vital signs: yes Common normals: no apparent distress and oriented x3 General appearance: cooperative Orientation/consciousness: Yes awake, Yes oriented to person, Yes oriented to place and Yes oriented to time HENMT Common normals: normocephalic Eye Common normals: EOMs intact bilaterally General eye: normal appearance of both eyes Alignment: alignment normal Neck & C-Spine Common normals: full ROM General: normal visual inspection Lymph Lymphatic: no lymphadenopathy noted Chest Common normals: inspection of chest normal Respiratory Common normals: normal respiratory effort, no retractions, no use of accessory muscles and clear to auscultation bilaterally Effort & inspection: able to speak in complete sentences Cardio Common normals: regular rate and regular rhythm Rate: regular rate Rhythm: regular rhythm GI Common normals: Normal to inspection, nondistended, normoactive bowel sounds present, soft to palpation and non-tender Inspection: normal to inspection Auscultation: normoactive bowel sounds Palpation: soft Common normals: no CVA tenderness Back & Pelvis Common normals: no CVA tenderness Extremity Common normals: normal to inspection Neuro Common normals: oriented x3 Sensorium/orientation: awake, alert, oriented to person, oriented to place and oriented to time Psych Common normals: mental status grossly normal, thought process normal, cooperative, affect normal, speech normal, activity/motor behavior normal, denies hallucinations, denies homicidal ideation and denies suicidal ideation Attitude: calm Thought process: normal thought process Urinary Catheter Management Urinary Catheter Management Urethral: Cath placed during this visit: yes, but has since been removed by the nurse Removal date: 11/12/24 Removal time: 22:15 OB - PN: A/P Plan - day: 2 Plan: discharge home Time Spent with Patient Time: Total time spent is greater than 50% in coordination of care (as documented) at patient's floor/unit and/or counseling patient: Total time spent with greater than 50% in coordination of care (as documented) at patient's floor/unit and/or counseling patient: less than 15 minutes
[2024-11-14 08:32] VITALS: BP 112/79; PULSE 88; TEMP 36.6
[2024-11-14] MEDS: DOCUSATE SODIUM 100 MG CAPSULE PO (08:32)
--- NOTE | 2024-11-14 08:32 | PM.OBDS ---
DS: Providers Provider Date of admission: 11/12/24 05:36 Primary care physician: Non-Staff Physician, Admitting clinician: Theodore Campbell Attending physician on admission: Theodore Campbell Consults: 11/12/24 Consult to Anesthesiology Routine Consulting Provider: Tor Bardales II Reason for consultation: C/S Has provider been notified: No Attending physician on discharge: YOAV PAREDES Discharging clinician: YOAV PAREDES Anticipated date of discharge: 11/14/24 DS: Diagnosis Discharge Diagnosis (1) Delivery by section: OB - DS: Summary Peripartum Data - Procedures: Procedures Operation Date: 11/12/24 07:30 Actual Procedure Side Surgeon p Repeat Not Applicable Theodore Campbell DO Peripartum Data - Vaginal Delivery Procedures: Procedures Operation Date: 11/12/24 07:30 Actual Procedure Side Surgeon p Repeat Not Applicable Theodore Campbell DO Complications complications: none Infant Delivery method: section Gender: female Discharge plan: home Status at Discharge Functional status at discharge: independent ambulation Overall status at discharge: patient is progressing back to baseline Time Spent with Patient Time attestation: Total time spent providing and/or coordinating discharge services: Time spent: less than 30 minutes Exam Constitutional Vital Signs, click to edit/add: Last Vital Signs Temp 98.8 F 11/14/24 00:42 Pulse 94 H 11/13/24 02:40 Resp 16 11/13/24 15:40 BP 113/74 11/14/24 00:42 Pulse Ox 98 11/12/24 17:11 O2 Del Method Room Air 11/14/24 00:42 Discharge Plan Discharge Disposition: Home, Self-Care Condition: Good Discharge Medications: New oxycodone-acetaminophen 5-325 mg Tablet 1 tab PO Q8H PRN (Reason: Pain Scale 4-6) Qty: 20 0RF ibuprofen 400 mg Tablet 800 mg PO Q8H PRN (Reason: Pain) Qty: 60 0RF Continued Pro Fe 180 mg iron capsule 180 mg PO DAILY valacyclovir 500 mg tablet 500 mg PO DAILY Print Language: Italian Forms: Portal Instructions Follow Up Appointments: follow up with Dr Campbell in 1 week for incision check
== END 2024-11-14 14:10 | disposition home or self-care (01) | DRG 787 ==
PROVIDERS: Admitting Provider Obstetrics & Gynecology; Visit Provider Obstetrics & Gynecology
PROC: 10D00Z1 Extraction of Products of Conception, Low, Open Approach (ICD-10-PCS; CPT 59514; principal; 2024-11-12 07:30)
DX: O34.211 Maternal care for low transverse scar from previous cesarean delivery (principal); O98.52 Other viral diseases complicating childbirth; B00.9 Herpesviral infection, unspecified; Z3A.39 39 weeks gestation of pregnancy; Z37.0 Single live birth; Z82.49 Family history of ischemic heart disease and other diseases of the circulatory system; Z23 Encounter for immunization; Z79.899 Other long term (current) drug therapy
CPT/HCPCS: 36415; 80307; 81001; 85025; 86850; 86900; 86901; 87086; 94667; 94668; J0131; J0690; J1100; J1650; J1885; J2274; J2405; J2590; J2765; J3490

== ENCOUNTER 2025-02-19 14:24 | Outpatient (REF) | payer BC, SELFPAY ==
--- OUTSIDE RECORDS SUMMARY | 2025-02-19 11:00 | XMS_ITS | Encounter Summary ---
Author Organization [facility] Address [address] [place] [address] Care Team Providers Care Casing Runner Name Role Phone Unavailable Primary Care Provider Unavailabl e Reason for Visit * ReasonCommentsGynecologic Exam Encounter Details DateTypeDepartmentCare Team (Latest Contact Info)Ldzghclgdhp84/12/2025 11:00 AM ESTProcedure Visit [facility] [address] [place] [id number] Theodore Campbell DO [address] [place], [facility]11 Well woman exam with routine gynecological exam Social History Tobacco UseTypesPacks/DayYears UsedDateSmoking Tobacco: NeverAlcohol UseStandard Drinks/WeekCommentsNever0 (1 standard drink = 0.6 oz pure alcohol)Caffeine intake: noneEducationAnswerDate RecordedWhat is the highest level of school you have completed or the highest degree you have received?Some college, no degree 3CommentsNoSex and Gender InformationValueDate RecordedSex Assigned at BirthNot on fileLegal NkhVjkral88/15/2023 6:44 PM EDTGender Identity Not on fileSexual OrientationNot on fileOccupationIndustryJob Start DateJob End 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 [employer]- SalesNot on fileNot on fileNot on filedocumented as of this encounter Last Filed Vital Signs Vital SignReadingTime TakenCommentsBlood Bmggvyla267/7202/19/2025 11:31 AM EST Pulse--Temperature--Respiratory Rate--Oxygen Saturation--Inhaled Oxygen Concentration--Lnttyb122 kg (257 lb)02/19/2025 11:31 AM ESTHeight--Body Mass Index38.51008/22/2022 12:00 PM EDTdocumented in this encounter Progress Notes * Alexus Recioarsh, ENT NURSE - 02/19/2025 11:00 AM EST Reason for Appointment: Patient ID: Beulah Murphy is a 34 y.o. female who presents for Gynecologic Exam Patient presents today for Annual Exam. MEDICATIONS No current outpatient medications ALLERGIES Allergies Allergen Reactions Cefadroxil Hives Other Reaction(s): hives, Unknown Other Reaction(s): hives, rash Latex Itching Other Reaction(s): Itching Other Reaction(s): Hives Paroxetine Other Reaction(s): Unknown PROBLEMS Active Ambulatory Problems Diagnosis Date Noted Anovulation 12/02/2022 DUB (dysfunctional uterine bleeding) 12/02/2022 Menstrual disorder 12/02/2022 Missed menses 12/02/2022 Yeast infection 12/02/2022 Postoperative follow-up 11/19/2024 Resolved Ambulatory Problems Diagnosis Date Noted Bleeding in early ([facility]) 12/02/2022 31 weeks gestation of ([facility]) 09/17/2024 Third trimester ([facility]) 09/17/2024 Multigravida of advanced maternal age in third trimester ([facility]) 09/17/2024 Past Medical History: Diagnosis Date Frequent UTI Herpes History of chlamydia 2008 History of depression 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 Personal history of other medical treatment ([facility]) [place] teeth removed HISTORY PAST MEDICAL HISTORY SOCIAL HISTORY Past Medical History: Diagnosis Date Bleeding in early ([facility]) 12/02/2022 Frequent UTI Herpes History of chlamydia 2008 History of depression no meds 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 Personal history of other medical treatment Frenectomy ([facility]) x2 [place] teeth removed Social History Tobacco Use Smoking [...] History: Procedure Laterality Date SECTION, LOW TRANSVERSE SECTION, LOW TRANSVERSE 11/12/2024 COLPOSCOPY 2010 GALLBLADDER SURGERY 2019 OTHER SURGICAL [...] appearance. She is well-developed. Genitourinary: Vulva normal. Breasts: Breasts are soft. Right: Normal. Left: Normal. Cardiovascular: Rate and Rhythm: Normal rate and [...] nursing note reviewed. Exam conducted with a infection control rn present. Vitals: Estimated body mass index is 38.51 kg/m?? as calculated from the following: Height as of 08/22/22: 5' 8.5 . Weight as of this encounter: 257 lb. BP: 118/72 No LMP recorded. ASSESSMENT & PLAN ICD-10-CM 1. Well woman exam with routine gynecological exam Z01.419 Pap Smear HPV DNA probe, amplified Orders Placed This Encounter Procedures HPV DNA probe, amplified Annual Wellness Exam: Patient presents today for routine annual exam. Patient states she has no current complaints. Patients vitals were reviewed and within normal limits. Growth and development is noted to be appropriate for age. Menstrual history is noted to be regular with no concerns reported. No mental health concerns was expressed. Pap Smear: Speculum was inserted into the vagina and pap was obtained without difficulty. HPV testing was performed per age guideline. Patient was advised that pap results could take anywhere from 7 to 10 days to receive and our office will reach out to the patient with those once we have them. Patient can also view results via [employer]. I reinforced importance of condom use for STI prevention. Patient declined cultures to be performed with today's visit. Breast Exam: Upon examination, clinical breast exam was noted to be normal. Patient was counseled on breast self-awareness, including the importance of knowing what is normal for her own breasts and promptly reporting any changes such as new lumps, skin dimpling, nipple discharge, or pain. Screening mammogram recommended annually beginning at age 40 or earlier if risk factors are present. Discussed signs and symptoms of breast cancer and when to seek medical attention. Answered all patient questions. Contraceptive Counseling (if applicable): Patient is currently using no control at this time as a form of contraceptive. Patient does not desire control at this time. Follow Up: Patient is to return to our office in one year for annual exam unless needed otherwise. Documented by Alexus Marcial LPN on behalf of: Theodore Campbell DO documented in this encounter Plan of Treatment DateTypeDepartmentCare Team (Latest Contact Info)Qvbjaqwwjsg20/18/2026 11:00 AM ESTProcedure Visit [facility] [address] [facility] [place] [id number] Theodore Campbell DO [address] [place] [address] NameTypePriorityAssociated DiagnosesOrder SchedulePap SmearPathology and CytologyRoutine Well woman exam with routine gynecological exam Ordered: 02/19/2025HPV DNA probe, amplifiedMicrobiologyRoutine Well woman exam with routine gynecological exam Ordered: 02/19/2025documented as of this encounter Visit Diagnoses Diagnosis Well woman exam with routine gynecological exam Routine gynecological examination documented in this encounter
--- OUTSIDE RECORDS SUMMARY | 2025-02-19 14:30 | XMS_ITS | Clinical Summary ---
Author Organization [facility] Address [address] [place] [address] Care Team Providers Care Line Up Examiner Name Role Phone Unavailable Primary Care Provider Unavailabl e Allergies Active AllergyReactionsCriticalityNoted SdjlEyjvpcozBfrajcfwqnZuxqf67/25/2023 Other Reaction(s): hives, Unknown Other Reaction(s): hives, rash CrwlmOumiuzz57/25/2023 Other Reaction(s): Itching Other Reaction(s): Hives Gghgtnkdov24/25/2023 Other Reaction(s): Unknown Medications No known medications Active Problems ProblemNoted DateDiagnosed DatePostoperative follow-up11/19/2024novulation 12/02/2022UB (dysfunctional uterine bleeding)12/02/2022Menstrual disorder 12/02/2022Missed vvzges1712/02/2022Yeast exbpeqbsl86/25/2023 Resolved Problems ProblemNoted DateDiagnosed DateResolved Date31 weeks gestation of ([facility])Third trimester ([facility])09/17/2024 11/12/2024Multigravida of advanced maternal age in third trimester ([facility]) leeding in early ([facility]) Encounters DateTypeDepartmentCare UltnIvwyfbreoxb81/12/2025 11:00 AM ESTProcedure Visit [facility] CONSTANTINOAb[facility] [address] [place] [address] [place] [address] Theodore Campbell, Well woman exam with routine gynecological exam02/19/2025amboo flowsheet [facility] [address] [place] [address] Theodore Campbell DO 12/24/2024 1:20 PM EDTPostpartum Visit [facility] OBKETTYN [address] [place] [address] Theodore Campbell, 6 weeks follow-up ([facility])5Abstract [facility] [address] [place] [address] Theodore Campbell, 11/19/2024 1:30 PM EDTOffice Visit [facility] [address] [place] [phone] Flower Joyce PA Postoperative follow-up5Bamboo flowsheet [facility] [address] [place] [phone] Flower Joyce PA from Last 3 Months Family History Medical HistoryRelationNameCommentsAllergiesBrotherseasonalCerebral palsyBrother Alzheimer's diseaseMaternal GrandfatherColon cancerMaternal GrandfatherDiabetes Maternal GrandfatherEmphysemaMaternal GrandmotherNephrolithiasisMaternal GrandmotherHypertensionMotherNephrolithiasisMothervaricose veinsMotherRelation NameStatusCommentsBrotherMaternal GrandfatherMaternal GrandmotherMother Social History Tobacco UseTypesPacks/DayYears UsedDateSmoking Tobacco: Never Tobacco Cessation:Counseling Given: Not Answered Alcohol UseStandard Drinks/WeekCommentsNever0 (1 standard drink = 0.6 oz pure alcohol)Caffeine intake: noneEducationAnswerDate RecordedWhat is the highest level of school you have completed or the highest degree you have received?Some college, no [id number] and Gender InformationValue Date RecordedSex Assigned at BirthNot on fileLegal AtuQjvemc48/15/2023 6:44 PM EDTGender IdentityNot on fileSexual OrientationNot on fileOccupationIndustryJob Start DateJob End 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 [employer]- SalesNot on fileNot on fileNot on file Last Filed Vital Signs Vital SignReadingTime TakenCommentsBlood Qorwqosg302/7202/19/2025 11:31 AM EST Pulse--Temperature--Respiratory Rate--Oxygen Saturation--Inhaled Oxygen Concentration--Aqqzyq623 kg (257 lb)02/19/2025 11:31 AM AFYDgfxvs759 cm (5' 8.5 )08/22/2022 12:00 PM EDTBody Mass Index38.51008/22/2022 12:00 PM EDT Plan of Treatment DateTypeDepartmentCare Team (Latest Contact Info)Ngqvtmzduuy59/18/2026 11:00 AM ESTProcedure Visit [facility] [address] [place] [address] Theodore Campbell DO [address] [place], [place] [id number] Procedures Procedure NamePriorityDate/TimeAssociated DiagnosisCommentsPOCT URINALYSIS FPHKTTGXUgpanjx57/12/2025 4:31 PM EDT Postoperative follow-up from Last 3 Months Results * (ABNORMAL) POCT urinalysis dipstick manually resulted (11/19/2024 4:31 PM EDT) ComponentValueRef RangeTest MethodAnalysis TimePerformed AtPathologist SignatureColor, UAYellowClarity, UAClearGlucose, UANegativeNegative - 2000(110) ++++ mg/dLBilirubin, UANegativeNegative - 4(70) +++ mg/dLKetones, UA NegativeNegative - 160(16) ++++ mg/dLSpec Grav, UA1.0151 - 1.03Blood, UA PositiveNegative - 50 Alex/mcLpH, UA6.05 - 9Protein, UAFewNegative - 2000(20) ++++ mg/dLUrobilinogen, UA0.20.2 - 12 mg/dLLeukocytes, UA1+Negative - 500+++ Jodi/mcLNitrite, UANegativeNegative - PositiveSpecimen (Source)Anatomical Location / LateralityCollection Method / VolumeCollection TimeReceived Time Urine11/19/2024 4:31 PM EDT Narrative Authorizing ProviderResult TypeResult StatusAmy [facility] TEST ENTER/EDIT ORDERABLESFinal Result from Last 3 Months Insurance
--- OUTSIDE RECORDS SUMMARY | 2025-02-19 14:30 | XMS_ITS | Clinical Summary ---
Author Organization [facility] s tem Address [id number] [place] [address] Care Team Providers Care Bench Lathe Operator Name Role Phone Unavailable Primary Care Provider Unavailabl e Allergies Active AllergyReactionsCriticalityNoted KjxtVsebbrmqVlwwyefqyfTlojd54/30/2025 XzqdjIjetdvz12/30/6279Fpwuvnmnfc08/30/2025 Medications MedicationSigDispense QuantityRefillsLast FilledStart DateEnd DateStatus vit,jorge alberto 72/iron/folic ( VITAMIN 1+1 ORAL) Take 1 tablet by mouth in the morning.Active progesterone (PROMETRIUM) 200 mg capsule Take 1 capsule (200 mg total) by mouth in the morning.Active Family History Medical HistoryRelationNameCommentsCerebral palsyBrotherAlzheimer's disease Maternal GrandfatherColon cancerMaternal GrandfatherDiabetesMaternal Grandfather EmphysemaMaternal GrandmotherNephrolithiasisMaternal GrandmotherHypertension MotherRelationNameStatusCommentsBrotherMaternal GrandfatherMaternal Grandmother Mother Social History Tobacco UseTypesPacks/DayYears UsedDateSmoking Tobacco: NeverSmokeless Tobacco: Never Tobacco Cessation:Counseling Given: Not Answered Alcohol UseStandard Drinks/WeekCommentsNever0 (1 standard drink = 0.6 oz pure alcohol)CommentsNoSex and Gender InformationValueDate RecordedSex Assigned at BirthNot on fileLegal BivNbgdeu65/28/2025 2:32 PM EDTGender Identity Not on fileSexual OrientationNot on file Plan of Treatment Health MaintenanceDue DateLast DoneCommentsDepression Umzntyeyp97/21/2001Tobacco Uodylplzv97/21/2001Adult BMI Mkqufygza06/21/2007DTaP,Tdap and Td Vaccines (1 - Tdap)11/29/2007Pap Smear2009Influenza Dqxrsaw9512/09/2024 Medical Devices Not on file Insurance
--- OUTSIDE RECORDS SUMMARY | 2025-02-19 14:30 | XMS_ITS | Encounter Summary ---
Author Organization [facility] Address [address] [place] [address] Care Team Providers Care Steaming Machine Operator Name Role Phone Unavailable Primary Care Provider Unavailabl e Encounter Details DateTypeDepartmentCare Team (Latest Contact Info)Jrozwzvexkb65/12/2025amboo flowsheet [facility] [address] [place] [address] Theodore Campbell DO [address] [facility] [address] [place], [place] [address] Social History Tobacco UseTypesPacks/DayYears UsedDateSmoking Tobacco: NeverAlcohol UseStandard Drinks/WeekCommentsNever0 (1 standard drink = 0.6 oz pure alcohol)Caffeine intake: noneEducationAnswerDate RecordedWhat is the highest level of school you have completed or the highest degree you have received?Some college, no degree 3CommentsNoSex and Gender InformationValueDate RecordedSex Assigned at BirthNot on fileLegal WviZerlbf96/15/2023 6:44 PM EDTGender Identity Not on fileSexual OrientationNot on fileOccupationIndustryJob Start DateJob End 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
--- OUTSIDE RECORDS SUMMARY | 2025-02-19 14:59 | XMS_ITS | CCD ---
Author Organization [facility] Care Team Providers Care Risk Lead Name Role Phone ADRIAN ., DR KWAN [...] Admitting Unavailable Adrian DO, Aquiles Attending Provider [phone] Unavailable Primary Care Provider Unavailabl e ADRIAN, [...] Unavailable ADRIAN, AQUILES Attending Unavailable Allergies Allergy ClassificationReported Allergen(s)Allergy TypeDate of OnsetReaction(s) Facility (1 source)CefadroxilDrug AllergyThe [facility] (1 source)natural latex rubberDrug allergy (disorder)[facility] (20 sources)Cefadroxil; Translations: [CEFADROXIL]Drug Znxnvzw54-16-1322Tldsc [facility] (20 sources)Latex; Translations: [LATEX]Allergy to ognclolzk06-27-2361Gisuwum [facility] (20 sources)PARoxetine; Translations: [PAROXETINE]Drug Edwovif41-64-4851ZPXE Healthcare (1 source)LatexPropensity to adverse reactions to edid26-91-2432DutmzgpIxoXvzkok [facility] Medications Current Medications MedicationDrug Class(es)DatesSig (Normalized)Sig (Original)12 hr guaiFENesin 600 mg extended release oral tablet (11 sources)take 1 tablet by mouth in the morning, then take 1 tablet by mouth every twelve hours at bedtimeguaiFENesin (Mucinex) 600 MG 12 hr tablet Take 1,200 mg by mouth in the morning and 1,200 mg beforebedtime. Do not crush, chew, or split.. Activeletrozole 2.5 mg oral tablet (5 sources)Aromatase InhibitorStart: 02-12-2024 End: 09-10-8470xtjh 1 tablet by mouth once dailyletrozole (Femara) 2.5 MG chemo tablet Indications: Anovulation Take 1 tablet (2.5 mg total) by mouth Daily for 5 days. 5 tablet 02/12/2024 02/17/2024 Activeprenatal vit,jorge alberto 74/iron/folic ( VITAMIN 1+1 ORAL) (1 source)take 1 tablet by mouth in the morningprenatal vit,jorge alberto 74/iron/folic ( VITAMIN 1+1 ORAL) Take 1 tablet by mouth in the morning. Active ubidecarenone 30 mg oral capsule (11 sources)take 1 capsule by mouth once dailyco-enzyme Q-10 30 MG capsule Take 30 mg by mouth Daily ActivevalACYclovir 500 mg oral tablet (17 sources)Herpesvirus Nucleoside Analog DNA Polymerase Inhibitor, Herpes Simplex Virus Nucleoside Analog DNA Polymerase Inhibitor, Herpes Zoster Virus Nucleoside Analog DNA Polymerase InhibitorStart: 10-14-2024 End: 85-97-1743ctvd 1 tablet by mouth once dailyvalACYclovir (Valtrex) 500 MG tablet Indications: HSV infection Take 1 tablet (500 mg) by mouth Daily 30 tablet 5 10/14/2024 11/13/2024 Active Completed/Discontinued Medications MedicationDrug Class(es)DatesSig (Normalized)Sig (Original)ascorbic acid 60 mg / beta carotene 5000 unt / copper sulfate 40 mg / dl-alpha tocopheryl acetate 30 unt / sodium selenite 0.04 mg / zinc oxide 40 mg oral tablet (10 sources)Vitamin C End: 99-04-7220Dbchtcso Vitamin (Multivitamin Adult) tablet Orally 12/24/2024 DiscontinuedBlood Glucose Monitoring Suppl (D-Care Glucometer) w/Device kit (16 sources)Start: 07-25-2024 End: 34-72-5019Wanty Glucose Monitoring Suppl (D-Care Glucometer) w/Device kit Indications: Gestational diabetes mellitus (GDM), antepartum, gestational diabetes method of control unspecified ([facility]) , Elevated glucose tolerance test 1 kit Daily Use four times daily to check FSBS. In the morning prior to breakfast & 1 hour after each meal for a total of 4times daily. 1 kit 07/25/2024 10/14/2024 DiscontinuedStart: 07-25-2024 End: 74-67-3586Vkdbu Glucose Monitoring Suppl (D-Care Glucometer) w/Device kit Indications: Gestational diabetes mellitus (GDM), antepartum, gestational diabetes method of control unspecified ([facility]) , Elevated glucose tolerance test 1 kit Daily Use four times daily to check FSBS. In the morning prior to breakfast & 1 hour after each meal for a total of 4times daily. 1 kit 07/25/2024 07/25/2025 ActiveStart: 07-25-2024 End: 35-29-4956Mqmvy Glucose Monitoring Suppl (D-Care Glucometer) w/Device kit Indications: Gestational diabetes mellitus (GDM), antepartum, gestational diabetes method of control unspecified , Elevated glucose tolerance test 1 kit Daily Use four times daily to check FSBS. In the morning prior to breakfast & 1 hour after each meal for a total of 4times daily. 1 kit 07/25/2024 07/25/2025 Activeisopropyl alcohol 0.7 ml/ml medicated pad (16 sources)Start: 07-25-2024 End: 60-10-5345Zytvawh Swabs (Alcohol Prep Pad) 70 % pads Indications: Gestational diabetes mellitus (GDM), antepartum, gestational diabetes method of control unspecified ([facility]) , Elevated glucose tolerance testApply 1 Pad topically Daily Use four times daily to check FSBS. 150 each 3 07/25/2024 10/14/2024 Discontinuedpolysaccharide iron complex 391 mg oral capsule (13 sources)Start: 08-28-2024 End: 85-40-9629xdld polysaccharides (ProFe) 391.3 (180 Fe) MG capsule 09/08/2024 12/24/2024 DiscontinuedPrenatal Grastakr-Qnf-Ex-FA ( 1 + IRON PO) (20 sources) End: 87-99-4430Qmlxknfv Ptmayjta-Nsx-Sz-FA ( 1 + IRON PO) 12/24/2024 DiscontinuedPrenatal Esvgwjnh-Yfc-Zc-FA ( 1 + IRON PO) ActivePrenatal Vit-Fe Lcqdwlk-JD-AID ( VITAMIN/MIN +DHA PO) (20 sources)Start: 06-09-2023 End: 03-72-1080Cqlmpoah Vit-Fe Vqjtwfo-UD-EAD ( VITAMIN/MIN +DHA PO) 06/09/2023 06/03/2024 Discontinued (Other)Start: 71-35-8240Duixhqtz Vit-Fe Dljnmww-JM-XBI ( VITAMIN/MIN +DHA PO) 06/09/2023 Activeprogesterone 200 mg oral capsule (9 sources)Progesterone End: 50-09-4619heri 1 capsule by mouth in the morningprogesterone 200 MG capsule Take 200 mg by mouth in the morning. 11/19/2024 Discontinued (Therapy co mpleted)Progesterone 200 MG suppository (17 sources)Start: 03-11-2024 End: 62-55-1103Pejnggfsvihp 200 MG suppository Indications: H/O miscarriage, currently Insert 1 suppository into the vagina at bedtime 30 suppository 3 03/11/2024 08/01/2024 Discontinued (Therapy completed)Start: 95-16-5049Apsgdijjxpii 200 MG suppository Indications: H/O miscarriage, currently Insert 1 suppository into the vagina at bedtime 30 suppository 3 03/11/2024 Active Problems Active Problems Problem ClassificationProblemDateDocumented DateEpisodic/ChronicAnxiety disorders (5 sources)Anxiety disorder, unspecified; Translations: [Acute stress reaction] Onset: 18-94-1642FpkpxspBqgfhs infertility (20 sources)Female infertility associated with anovulation; Translations: [Anovulation]Onset: 27-26-3516NxecpgtUmufhtlnnxfnb and screening for infectious disease (2 sources)Exposure to sexually transmissible disorder; Translations: [Contact with and (suspected) exposure to infections with a predominantly sexual mode of transmission]79-31-3806RyzqwzqaUbnkdhwej disorders (20 sources)Irregular menstruation, unspecified; Translations: [Disorder of menstruation]Onset: 55-95-4710UkgyniwFemnyxhhrss deficiencies (2 sources)Serum iron low; Translations: [Iron deficiency]25-38-6821Zckabhgi Other aftercare (6 sources)Surgical follow-up; Translations: [Encounter for follow-up examination after completed treatment for conditions other than malignant neoplasm]Onset: 507372-53-6864MxjuzszgOnzvp complications of (2 sources) size does not accord with dates; Translations: [Uterine size- date discrepancy, second trimester]66-81-7725PvasqmixTmypc complications of (6 sources)Excessive growth affecting management of mother; Translations: [Maternal care for excessive growth, unspecified trimester, not applicable or unspecified]37-33-0548QmkfrdtxArdyx female genital disorders (20 sources)Abnormal uterine bleeding; Translations: [Other specified abnormal uterine and vaginal bleeding]Onset: 875730-97-4054KdsinvwCpmsj female genital disorders (2 sources)Vaginal discharge; Translations: [Other specified noninflammatory disorders of vagina]33-22-8794OhkkwmpiKeogn and delivery including normal (20 sources)First trimester ; Translations: [Encounter for supervision of normal , unspecified, first trimester]Onset: 09-17-2024 Resolved: 416032-02-6078NpjnpgykBwkyo screening for suspected conditions (not mental disorders or infectious disease) (3 sources)Patient encounter status; Translations: [Encounter for other specified screening]Onset: 657789-34-4849VlpkavkyWpopgzkc codes; unclassified (2 sources)Gestation period, 11 weeks; Translations: [11 weeks gestation of ]23-69-6968AukcaojtLjzlwnkx codes; unclassified (2 sources)Gestation period, 16 weeks; Translations: [16 weeks gestation of ]74-48-7900DkaucpgfWlfjmfxq codes; unclassified (2 sources)Gestation period, 24 weeks; Translations: [24 weeks gestation of ]79-35-9382NtkacyseFuvpunnr codes; unclassified (2 sources)Gestation period, 28 weeks; Translations: [28 weeks gestation of ]62-98-0285PhekrmelKbbccgnm codes; unclassified (2 sources)Gestation period, 33 weeks; Translations: [33 weeks gestation of ]38-29-5262HogyyeycDmmxnjvq codes; unclassified (2 sources)Gestation period, 35 weeks; Translations: [35 weeks gestation of ]93-03-3452HmiyndagSbtojgfx codes; unclassified (2 sources)Gestation period, 36 weeks; Translations: [36 weeks gestation of ]25-22-7985JsbrataxMwldfkgr codes; unclassified (2 sources)Gestation period, 37 weeks; Translations: [37 weeks gestation of ]67-91-0482FhbdrrddFoovreez codes; unclassified (2 sources)Gestation period, 38 weeks; Translations: [38 weeks gestation of ]01-17-0548ChwjinzfLlazq infection (6 sources)Herpes simplex; Translations: [Herpesviral infection, unspecified] 60-91-3270Mwetdvia Past or Other Problems Problem ClassificationProblemDateDocumented DateEpisodic/ChronicHemorrhage during ; abruptio placenta; placenta previa (20 sources)Hemorrhage in early , unspecified; Translations: [Antepartum hemorrhage]Onset: 05-17-2022 Resolved: 25-73-7923WmueuygyHykiuag (20 sources)Mycosis; Translations: [Candidiasis, unspecified]Onset: 12-02-2022 83-68-4333KccsoedqRkdty complications of (20 sources)Multigravida of advanced maternal age; Translations: [Supervision of elderly multigravida, unspecified trimester]Onset: 09-17-2024 Resolved: 202423-14-8651XyjceaqcJynjn female genital disorders (4 sources)Personal history of other diseases of the female genital tract; Translations: [PERSONAL HX OTH DZ FE GENITAL TRACT]Onset: 61-72-5119Ueilufys Residual codes; unclassified (20 sources)Gestation period, 31 weeks; Translations: [31 weeks gestation of ]Onset: 09-17-2024 Resolved: 462969-64-9854RwxyuryhKrioqzidr and history of mental health and substance abuse codes (1 source)Personal history of nicotine dependence; Translations: [PERSONAL HISTORY OF NICOTINE DEPEND]Onset: 01-85-9434Nsacfbtx Results Test NameValueInterpretationReference RangeFacilityALL CBC WITH AUTO DIFFon 41-40-9882ZMXXNDYRR ABSOLUTE NSRV1IBDB HealthcareBasophils/100 WBC (Bld)0.3 %0.2 - 2.0 %[facility] CenterEosinophils/100 WBC (Bld)1.2 %0.9 - 7.0 %[facility] Erythrocyte distribution width (RBC) [Ratio]14 %11.0 - 15.0 %[facility] Hematocrit (Bld) [Volume fraction]28.5 %Low36.0 - 48.0 %[facility] Hemoglobin (Bld) [Mass/Vol]9.6 g/dLLow12.0 - 16.0 g/dLAlvin J. Siteman Cancer CenterIMMATURE GRANULOCYTES ABS AUTO0.07HighAlvin J. Siteman Cancer CenterImmature granulocytes/100 WBC (Bld) 0.6 %High0.0 - 0.5 %[facility] Cancer CenterInterpretation and review of laboratory resultsAbnormalAlvin J. Siteman Cancer CenterLYMPHOCYTES ABSOLUTE AUTO1.6[facility] Lymphocytes/100 WBC (Bld)13.3 %Low20.5 - 60.0 %[facility] (RBC) [Entitic mass]30.3 pg26.7 - 34.0 pgSamaritan HospitalHC (RBC) [Mass/Vol]33.7 g/dL29.9 - 35.2 g/dLSamaritan HospitalV (RBC) [Entitic vol]89.9 fL81.0 - 99.0 fLAlvin J. Siteman Cancer CenterMONOCYTES ABSOLUTE AUTO0.9HighAlvin J. Siteman Cancer CenterMonocytes/100 WBC (Bld)7 %1.7 - 12.0 %[facility] CenterNEUTROPHILS ABSOLUTE AUTO9.4HighAlvin J. Siteman Cancer Center Neutrophils/100 WBC (Bld)77.6 %High43.0 - 75.0 %[facility] Cancer CenterPlatelet mean volume (Bld) [Entitic vol]9.9 fL9.5 - 13.5 fLJohn J. Pershing VA Medical Center EO #0.2N[facility]S [facility] HospitalTB PPF634FYTOParkland Health Center RBC3.17LowNOParkland Health Center WBC12.1High [facility] CenterCLINISYNCNHarry S. Truman Memorial Veterans' HospitalALL CBC WITH AUTO DIFFon 11-12-2024 BASOPHILS ABSOLUTE JDFL0HRSGAlvin J. Siteman Cancer CenterBasophils/100 WBC (Bld)0.3 %0.2 - 2.0 % [facility] CenterEosinophils/100 WBC (Bld)1.6 %0.9 - 7.0 %[facility] Erythrocyte distribution width (RBC) [Ratio]14.2 %11.0 - 15.0 %[facility] Hematocrit (Bld) [Volume fraction]33.3 %Low36.0 - 48.0 %[facility] Hemoglobin (Bld) [Mass/Vol]11.3 g/dLLow12.0 - 16.0 g/dLAlvin J. Siteman Cancer CenterIMMATURE GRANULOCYTES ABS AUTO0.09HighNOBoone Hospital CenterImmature granulocytes/100 WBC (Bld) 0.8 %High0.0 - 0.5 %[facility] CenterInterpretation and review of laboratory resultsAbnormalAlvin J. Siteman Cancer CenterLYMPHOCYTES ABSOLUTE AUTO2.7[facility] Lymphocytes/100 WBC (Bld)22.9 %20.5 - 60.0 %[facility]aritan HospitalH (RBC) [Entitic mass]30.3 pg26.7 - 34.0 pgSamaritan HospitalHC (RBC) [Mass/Vol]33.9 g/dL29.9 - 35.2 g/dLAlvin J. Siteman Cancer CenterMCV (RBC) [Entitic vol]89.3 fL81.0 - 99.0 fLAlvin J. Siteman Cancer CenterMONOCYTES ABSOLUTE AUTO0.8NOBoone Hospital CenterMonocytes/100 WBC (Bld)6.7 % 1.7 - 12.0 %[facility] CenterNEUTROPHILS ABSOLUTE AUTO7.8HighAlvin J. Siteman Cancer Center Neutrophils/100 WBC (Bld)67.7 %43.0 - 75.0 %[facility] Cancer CenterPlatelet mean volume (Bld) [Entitic vol]10.4 fL9.5 - 13.5 fLJohn J. Pershing VA Medical Center EO #0.2[facility] TBH DWJ930MAQOParkland Health Center RBC3.73LowNOParkland Health Center WBC11.6HighAlvin J. Siteman Cancer CenterCLINISYNCNOMS HealthcareUS OB BPP W NON-STRESSon 68-31-0342GtvLa [place], [place] [address] Ultrasound Report Signed Patient: ED MURPHY MR#: [id number] : 1990 Acct:[id number] Age/Sex: 33 / F ADM Date: 11/05/24 Loc: [facility] 250-[address]: Aquiles Campbell D.O. Ordering Physician: Aquiles Campbell D.O. Date of Service: 11/05/24 Procedure(s): US OB BPP w non-stress Accession Number(s): [id number] cc: Aquiles Campbell D.O.; Physician,Non-Staff [facility] [place] [id number] Patient Name: ED MURPHY MRN: [facility]:[id number] date: 1990 Sex: F Assigned Patient Location: [facility] Current Patient Location: [facility] Accession/Order Number: [id number] Exam Date: 11/05/2024 09:45 Report Date: 11/05/2024 [...] Torre M.D. 11/05/2024 9:46 AM Dictation Location: [place] [address] Electronically authenticated by: [id number] Y Date: 11/05/2024 09:46 Dictated By: Alexus De La Torre M.D. Signed By: 11/05/24 0948 DD/ 5 TD/TT: Textile Conservator:TBHRadiology, Radiologist, - 11/05/[address] [address] Ultrasound Report Signed Patient: ED MURPHY MR#: [id number] : 1990 Acct:[id number] Age/Sex: 33 / F ADM Date: 11/05/24 Loc: [facility] 250-[address]: Aquiles Campbell D.O. Ordering Physician: Aquiles Campbell D.O. Date of Service: 11/05/24 Procedure(s): US OB BPP w non-stress Accession Number(s): [id number] cc: Aquiles Campbell D.O.; Physician,Non-Staff [facility] [place] [id number] Patient Name: ED MURPHY MRN: [facility]:[id number] date: 1990 Sex: F Assigned Patient Location: [facility] Current Patient Location: [facility] Accession/Order Number: [id number] Exam Date: 11/05/2024 09:45 Report Date: 11/05/2024 [...] Torre M.D. 11/05/2024 9:46 AM [facility]ictation [facility] Electronically authenticated by: [id number] Y Date: 11/05/2024 09:46 Dictated By: Alexus De La Torre M.D. Signed By: 11/05/2448 DD/ 5 TD/TT: Textile Conservator: ANDERS HealthcareRadiology Study observation (narrative)[facility] CenterUS OB BPP W NON-STRESSOrdered By: Radiologist Radiology on 51-92-0663YDIB Healthcare Work Phone: Urinalysis macro (dipstick) panel (U)on 11-04-2024 Bilirubin, UANegativeNegative - 4(70) +++ mg/dLNOMS HealthcareBlood, UANegative Negative - 50 Alex/mcLNOMS HealthcareClarity, UAClearNOMS HealthcareColor, UA YellowNOMS HealthcareGlucose, UANegativeNegative - 2000(110) ++++ mg/dLNOMS HealthcareInterpretation and review of laboratory resultsNormalNOMS Healthcare Ketones, UANegativeNegative - 160(16) ++++ mg/dLNOMS HealthcareLeukocytes, UA NegativeNegative - 500+++ Jodi/mcLNOMS HealthcareNitrite, UANegativeNegative - PositiveNOMS HealthcarepH, UA65 - 9NOMS HealthcareProtein, UANegativeNegative - 2000(20) ++++ mg/dLNOMS HealthcareSpec Grav, UA1.0151 - 1.03[facility] Urobilinogen, UA0.20.2 - 12 mg/dLNOMS HealthcareNOMS HealthcareUS OB BPP W NON-STRESSon 08-83-2168XuwLa [place], [place] [address] Ultrasound Report Signed Patient: ED MURPHY MR#: [id number] : 1990 Acct:[id number] Age/Sex: 33 / F ADM Date: 10/29/24 Loc: [facility] 250-[address]: Aquiles Campbell D.O. Ordering Physician: Aquiles Campbell D.O. Date of Service: 10/29/24 Procedure(s): US OB BPP w non-stress Accession Number(s): [id number] cc: Aquiles Campbell D.O.; Physician,Non-Staff Hussein The [address] [address] Patient Name: ED MURPHY MRN: [facility]:[id number] date: 1990 Sex: F Assigned Patient Location: [facility] Current Patient Location: [facility] Accession/Order Number: [id number] Exam Date: 10/29/2024 09:55 Report Date: 10/29/2024 09:56 At the request of: AQUILES CAMPBELL DO Procedure: US OB BPP w non-stress Biophysical profile. Reason for exam: Excessive growth COMPARISON: 10/22/2024 TECHNIQUE: Transabdominal imaging of the gravid uterus was obtained. FINDINGS: The garment sewer hand reports a BPP of 8 out of 8. FRANK is normal at 13.3 cm. heart rate 135 bpm. US/US OB BPP w non-stress IMPRESSION: BPP 8 out of 8. Impression dictated by: Campos Hall Jr., D.O. 10/29/2024 9:56 AM Dictation Location: [place] [address] Electronically authenticated by: [id number] Y Date: 10/29/2024 09:56 Dictated By: Campos Hall M.D. Signed By: 10/29/24 0959 DD/ TD/TT: Textile Conservator:LEWadiologyovana, Radiologist, - 10/29/2024 [place] [address] Ultrasound Report Signed Patient: ED MURPHY MR#: [id number] : 1990 Acct:[id number] Age/Sex: 33 / F ADM Date: 10/29/24 Loc: [facility] 250-[address]: Aquiles Campbell D.O. Ordering Physician: Aquiles Campbell D.O. Date of Service: 10/29/24 Procedure(s): US OB BPP w non-stress Accession Number(s): [id number] cc: Aquiles Campbell D.O.; Physician,Non-Staff [facility] [place] [address] Patient Name: ED MURPHY MRN: [facility]:[id number] date: 1990 Sex: F Assigned Patient Location: [facility] Current Patient Location: [facility] Accession/Order Number: [id number] Exam Date: 10/29/2024 09:55 Report Date: 10/29/2024 09:56 At the request of: AQUILES CAMPBELL DO Procedure: US OB BPP w non-stress Biophysical profile. Reason for exam: Excessive growth COMPARISON: 10/22/2024 TECHNIQUE: Transabdominal imaging of the gravid uterus was obtained. FINDINGS: The garment sewer hand reports a BPP of 8 out of 8. FRANK is normal at 13.3 cm. heart rate 135 bpm. US/US OB BPP w non-stress IMPRESSION: BPP 8 out of 8. Impression dictated by: Campos Hall Jr., D.O. 10/29/2024 9:56 AM Dictation Location: [place] [address] Electronically authenticated by: [id number] Y Date: 10/29/2024 09:56 Dictated By: Campos Hall M.D. Signed By: 10/29/24 0959 DD/ 5 TD/TT: Textile Conservator: ANDERS HealthcareRadiology Study observation (narrative)NOMS HealthcareUS OB BPP W NON-STRESSOrdered By: Radiologist Radiology on 18-58-4964DXKQAlvin J. Siteman Cancer Center Work Phone: Urinalysis macro (dipstick) panel (U)on 10-28-2024 Bilirubin, UANegativeNegative - 4(70) +++ mg/dLNOMS HealthcareBlood, UANegative Negative - 50 Alex/mcLNOMS HealthcareClarity, UAClearNOMS HealthcareColor, UA YellowNOMS HealthcareGlucose, UANegativeNegative - 2000(110) ++++ mg/dLNOAK HealthcareInterpretation and review of laboratory resultsNormalNOBoone Hospital Center Ketones, UANegativeNegative - 160(16) ++++ mg/dLNOMS HealthcareLeukocytes, UA NegativeNegative - 500+++ Jodi/mcLNOMS HealthcareNitrite, UANegativeNegative - PositiveNOMS HealthcarepH, UA5.55 - 9NOMS HealthcareProtein, UANegativeNegative - 2000(20) ++++ mg/dLNOMS HealthcareSpec Grav, UA1.021 - 1.03N[facility] Urobilinogen, UA1.00.2 - 12 mg/dLNOMS HealthcareNOMS HealthcareUS OB BPP W NON-STRESSon 52-49-3229GzxLa [place], [place] [address] Ultrasound Report Signed Patient: ED MURPHY MR#: [id number] : 1990 Acct:[id number] Age/Sex: 33 / F ADM Date: 10/22/24 Loc: [facility] 254-[address]: Aquiles Campbell D.O. Ordering Physician: Aquiles Campbell D.O. Date of Service: 10/22/24 Procedure(s): US OB BPP w non-stress Accession Number(s): [id number] cc: Aquiles Campbell D.O.; Physician,Non-Staff M.DAp The [place] [address] Patient Name: ED MURPHY MRN: [facility]:[id number] date: 1990 Sex: F Assigned Patient Location: [facility] Current Patient Location: [facility] Accession/Order Number: [id number] Exam Date: 10/22/2024 10:02 Report Date: 10/22/2024 [...] Torre M.D. 10/22/2024 10:04 AM Dictation Location: [place] [address] Electronically authenticated by: [id number] Y Date: 10/22/2024 10:04 Dictated By: Aelxus De La Torre M.D. Signed By: 10/22/24 1007 DD/ 1004 TD/TT: Textile Conservator:TBHRadiology, Radiologist, - 10/22/2024 [place] [address] Ultrasound Report Signed Patient: ED MURPHY MR#: [id number] : 1990 Acct:[id number] Age/Sex: 33 / F ADM Date: 10/22/24 Loc: [facility] 254-[address]: Aquiles Campbell D.O. Ordering Physician: Aquiles Campbell D.O. Date of Service: 10/22/24 Procedure(s): US OB BPP w non-stress Accession Number(s): [id number] cc: Aquiles Campbell D.O.; Physician,Non-Staff [facility] [place] [address] Patient Name: ED MURPHY MRN: [id number]:[id number] date: 1990 Sex: F Assigned Patient Location: [facility] Current Patient Location: [facility] Accession/Order Number: [id number] Exam Date: 10/22/2024 10:02 Report Date: 10/22/2024 10:04 At the request of: AQUILES ADRIAN DO [...] Torre M.D. 10/22/2024 10:04 AM Dictation Location: [place] [address] Electronically authenticated by: [id number] Y Date: 10/22/2024 10:04 Dictated By: Alexus De La Torre M.D. Signed By: 10/22/24 1007 DD/ 1004 TD/TT: Textile Conservator: ANDERS HealthcareRadiology Study observation (narrative)NOMS HealthcareUS OB BPP W NON-STRESSOrdered By: Radiologist Radiology on 27-47-5167SAVT Healthcare Work Phone: Urinalysis macro (dipstick) panel (U)on 10-21-2024 Bilirubin, UANegativeNegative - 4(70) +++ mg/dLNOMS HealthcareBlood, UANegative Negative - 50 Alex/mcLNOMS HealthcareClarity, UAClearNOMS HealthcareColor, UA YellowNOMS HealthcareGlucose, UANegativeNegative - 2000(110) ++++ mg/dLNOMS HealthcareInterpretation and review of laboratory resultsNormalNOMS Healthcare Ketones, UANegativeNegative - 160(16) ++++ mg/dLNOMS HealthcareLeukocytes, UA NegativeNegative - 500+++ Jodi/mcLNOMS HealthcareNitrite, UANegativeNegative - PositiveNOMS HealthcarepH, UA6.55 - 9NOMS HealthcareProtein, UANegativeNegative - 2000(20) ++++ mg/dLNOMS HealthcareSpec Grav, UA1.011 - 1.03N[facility]S Healthcare Urobilinogen, UA0.20.2 - 12 mg/dLNOMS HealthcareNOMS HealthcareUS OB BPP W NON-STRESSon 27-64-4619PhtLa [place] [address] Ultrasound Report Signed Patient: ED MURPHY MR#: [id number] : 1990 Acct:[id number] Age/Sex: 33 / F ADM Date: 10/15/24 Loc: US Attending Dr: Aquiles Campbell D.O. Ordering Physician: Aquiles Campbell D.O. Date of Service: 10/15/24 Procedure(s): US OB BPP w non-stress Accession Number(s): [id number] cc: Aquiles Campbell D.O.; Physician,Non-Staff M.Dario The [place] [address] Patient Name: ED MURPHY MRN: [facility]:[id number] date: 1990 Sex: F Assigned Patient Location: Current Patient Location: Accession/Order Number: [id number] Exam Date: 10/16/2024 07:14 Report Date: 10/16/2024 [...] Torre M.D. 10/16/2024 7:15 AM Dictation Location: [place] [address] Electronically authenticated by: [id number] Y Date: 10/16/2024 07:15 Dictated By: Aleuxs De La Torre M.D. Signed By: 10/16/24716 DD/ 4 TD/TT: Textile Conservator:TBHRadiology, Radiologist, MD - 10/16/2024 [place] [address] Ultrasound Report Signed Patient: ED MURPHY MR#: [id number] : 1990 Acct:[id number] Age/Sex: 33 / F ADM Date: 10/15/24 Loc: US Attending Dr: Aquiles Campbell D.O. Ordering Physician: Aquiles Campbell D.O. Date of Service: 10/15/24 Procedure(s): US OB BPP w non-stress Accession Number(s): [id number] cc: Aquiles Campbell D.O.; Physician,Non-Staff [place] [facility] [place] [id number] Patient Name: ED MURPHY MRN: [id number]:[id number] date: 1990 Sex: F Assigned Patient Location: US Current Patient Location: Accession/Order Number: [id number] Exam Date: 10/16/2024 07:14 Report Date: 10/16/2024 [...] Torre M.D. 10/16/2024 7:15 AM Dictation Location: [place] [address] Electronically authenticated by: [id number] Y Date: 10/16/2024 07:15 Dictated By: Alexus De La Torre M.D. Signed By: 10/16/24716 DD/ 4 TD/TT: Textile Conservator: [facility] HealthcareRadiology Study observation (narrative)[facility] HealthcareUS OB BPP W NON-STRESSOrdered By: Radiologist Radiology on 55-87-3402KGNA [employer] Work Phone: us OB FOLLOW UP TRANSABDOMINAL APPROACHon 60-00-7860YZ OB FOLLOW UP TRANSABDOMINAL APPROACHA single, live intrauterine is present with normal [...] menstrual period. TRANSCRIBED BY: ELECTRONICALLY SIGNED BY: Chepe Gann AvailableComment on above:Order Comment: US OB SCAN FOR GROWTH Estimated Date of Delivery: 11/17/24 Gestational Age as of 10/14/2024: 83n4hCtcgnqtaow macro (dipstick) panel (U)on 67-16-9266Bnfcurpxl, UANegativeNegative - 4(70) +++ mg/dLNOMS HealthcareBlood, UANegativeNegative - 50 Alex/mcLNOMS HealthcareClarity, UACloudyNOMS Healthcare Color, UAYellowNOMS HealthcareGlucose, UANegativeNegative - 1999(110) ++++ mg/dL N[facility] HealthcareInterpretation and review of laboratory resultsNormalNOMS HealthcareKetones, UANegativeNegative - 160(16) ++++ mg/dLNOMS Healthcare Leukocytes, UANegativeNegative - 500+++ Jodi/mcLNOMS HealthcareNitrite, UA NegativeNegative - PositiveNOMS HealthcarepH, UA6.55 - 9NOMS HealthcareProtein, UANegativeNegative - 2000(20) ++++ mg/dLNOMS HealthcareSpec Grav, UA1.011 - 1.03 NOMS HealthcareUrobilinogen, UA0.20.2 - 12 mg/dLNOMS HealthcareNOMS HealthcareUS OB BPP W NON-STRESSon 65-96-4705[place]bwLa [place], [place] [address] Ultrasound Report Signed Patient: ED MURPHY MR#: [id number] : 1990 Acct:[id number] Age/Sex: 33 / F ADM Date: 10/08/24 Loc: US Attending Dr: Aquiles Campbell D.O. Ordering Physician: Aquiles Campbell D.O. Date of Service: 10/08/24 Procedure(s): US OB BPP w non-stress Accession Number(s): [id number] cc: Aquiles Campbell D.O.; Physician,Non-Staff [facility] [place] [id number] Patient Name: ED MURPHY MRN: [facility]:[id number] date: 1990 Sex: F Assigned Patient Location: Current Patient Location: Accession/Order Number: [id number] Exam Date: 10/09/2024 07:51 Report Date: 10/09/2024 [...] in upper normal range. Total score: 8/8 US/ OB BPP w non-stress IMPRESSION: NORMAL BIOPHYSICAL PROFILE Impression dictated by: Alexus De La Torre M.D. 10/09/2024 7:52 AM Dictation Location: [place] [address] Electronically authenticated by: [id number] Y Date: 10/09/2024 07:52 Dictated By: Alexus De La Torre M.D. Signed By: 10/09/24 0945 DD/ 0752 TD/TT: Textile Conservator:TBHRadiology, Radiologist, - 10/09/2024 [facility] [place] [id number] Ultrasound Report Signed Patient: ED MURPHY MR#: [id number] : 1990 Acct:[id number] Age/Sex: 33 / F ADM Date: 10/08/24 Loc: US Attending Dr: Aquiles Campbell D.O. Ordering Physician: Aquiles Campbell D.O. Date of Service: 10/08/24 Procedure(s): US OB BPP w non-stress Accession Number(s): [id number] cc: Aquiles Campbell D.O.; Physician,Non-Staff [facility] [place] [id number] Patient Name: ED MURPHY MRN: [facility]:[id number] date: 1990 Sex: F Assigned Patient Location: US Current Patient Location: Accession/Order Number: [id number] Exam Date: 10/09/2024 07:51 Report Date: 10/09/2024 [...] Torre M.D. 10/09/2024 7:52 AM Dictation Location: [place] [address] Electronically authenticated by: [id number] Y Date: 10/09/2024 07:52 Dictated By: Alexus De La Torre M.D. Signed By: 10/09/24 0945 DD/ 0752 TD/TT: Textile Conservator: ANDERS HealthcareRadiology Study observation (narrative)NOMSherry HealthcareUS OB BPP W NON-STRESSOrdered By: Radiologist Radiology on 65-09-4345KTKY Healthcare Work Phone: US OB BPP W NON-STRESSon 08-04-0815RloLa [place], [place] [address] Ultrasound Report Signed Patient: ED MURPHY MR#: [id number] : 1990 Acct:[id number] Age/Sex: 33 / F ADM Date: 10/01/24 Loc: US Attending Dr: Aquiles Campbell D.O. Ordering Physician: Aquiles Campbell D.O. Date of Service: 10/01/24 Procedure(s): US OB BPP w non-stress Accession Number(s): [id number] cc: Aquiles Campbell D.O.; Physician,Non-Staff M.Dario [facility] [place] [id number] Patient Name: ED MURPHY MRN: [facility]:[id number] date: 1990 Sex: F Assigned Patient Location: [facility] Current Patient Location: Accession/Order Number: [id number] Exam Date: 10/02/2024 08:04 Report Date: 10/02/2024 [...] Torre M.D. 10/02/2024 8:07 AM Dictation Location: [place] [address] Electronically authenticated by: [id number] Y Date: 10/02/2024 08:07 Dictated By: Alexus De La Torre M.D. Signed By: 10/02/24809 DD/ 6 TD/TT: Textile Conservator:TBHRadiology, Radiologist, - 10/02/2024 [place] [address] Ultrasound Report Signed Patient: ED MURPHY MR#: [id number] : 1990 Acct:[id number] Age/Sex: 33 / F ADM Date: 10/01/24 Loc: US Attending Dr: Aquiles Campbell D.O. Ordering Physician: Aquiles Campbell D.O. Date of Service: 10/01/24 Procedure(s): US OB BPP w non-stress Accession Number(s): [id number] cc: Aquiles Campbell D.O.; Physician,Non-Staff Hussein The [address] [id number] Patient Name: ED MURPHY MRN: [facility]:[id number] date: 1990 Sex: F Assigned Patient Location: [facility] Current Patient Location: Accession/Order Number: [id number] Exam Date: 10/02/2024 08:04 Report Date: 10/02/2024 [...] Torre M.D. 10/02/2024 8:07 AM Dictation Location: [place] [address] Electronically authenticated by: [id number] Y Date: 10/02/2024 08:07 Dictated By: Alexus De La Torre M.D. Signed By: 10/02/24 0810 DD/ 0807 TD/TT: Textile Conservator: ANDERS HealthcareRadiology Study observation (narrative)NOMS HealthcareUS OB BPP W NON-STRESSOrdered By: Radiologist Radiology on 29-57-7982CJOL [facility] Work Phone: Urinalysis macro (dipstick) panel (U)on 09-30-2024 Bilirubin, UANegativeNegative - 4(70) +++ mg/dLNOMS HealthcareBlood, UANegative Negative - 50 Alex/mcLNOMS HealthcareClarity, UAClearNOMS HealthcareColor, UA YellowNOMS HealthcareGlucose, UANegativeNegative - 2000(110) ++++ mg/dLNOMS HealthcareInterpretation and review of laboratory resultsAbnormalNOMS Healthcare Ketones, UAPositiveNegative - 160(16) ++++ mg/dLNOMS HealthcareComment on above: 15mg/dLLeukocytes, UANegativeNegative - 500+++ Jodi/mcLNOMS HealthcareNitrite, UA NegativeNegative - PositiveNOMS HealthcarepH, UA65 - 9NOMS HealthcareProtein, UA NegativeNegative - 1999(20) ++++ mg/dLNOMS HealthcareSpec Grav, UA1.021 - 1.03 NOMS HealthcareUrobilinogen, UA0.20.2 - 12 mg/dLNOMS HealthcareNOMS HealthcareUS OB BPP W NON-STRESSon 11-20-5116[place]fwLa [place], [place] [address] Ultrasound Report Signed Patient: ED MURPHY MR#: [id number] : 1990 Acct:[id number] Age/Sex: 33 / F ADM Date: 09/24/24 Loc: US Attending Dr: Aquiles Campbell D.O. Ordering Physician: Aquiles Campbell D.O. Date of Service: 09/24/24 Procedure(s): US OB BPP w non-stress Accession Number(s): [id number] cc: Aquiles Campbell D.O.; Physician,Non-Staff [place] [address] Patient Name: ED MURPHY MRN: [facility]:[id number] date: 1990 Sex: F Assigned Patient Location: Current Patient Location: Accession/Order Number: [id number] Exam Date: 09/25/2024 07:56 Report Date: 09/25/2024 [...] ultrasound biophysical profile Impression dictated by: Manuel Swatrz M.D. 09/25/2024 7:58 AM Dictation Location: [place] [address] Electronically authenticated by: [id number] Y Date: 09/25/2024 07:58 Dictated By: Manuel Swartz D.O. Signed By: 09/25/24 0800 DD/ 0758 TD/TT: Textile Conservator:LEWadiologyovana, Radiologist, - 09/25/2024 [place] [address] Ultrasound Report Signed Patient: ED MURPHY MR#: [id number] : 1990 Acct:[id number] Age/Sex: 33 / F ADM Date: 09/24/24 Loc: US Attending Dr: Aquiles Campbell D.O. Ordering Physician: Aquiles Campbell D.O. Date of Service: 09/24/24 Procedure(s): US OB BPP w non-stress Accession Number(s): [id number] cc: Aquiles Campbell D.O.; Physician,Non-Staff [facility] [place] [address] Patient Name: ED MURPHY MRN: [id number] date: 1990 Sex: F Assigned Patient Location: US Current Patient Location: Accession/Order Number: [id number] Exam Date: 09/25/2024 07:56 Report Date: 09/25/2024 [...] Swartz M.D. 09/25/2024 7:58 AM Dictation Location: [place] [address] Electronically authenticated by: [id number] Y Date: 09/25/2024 07:58 Dictated By: Manuel Swartz D.O. Signed By: 09/25/24 0800 DD/ 0758 TD/TT: Textile Conservator: ANDERS HealthcareRadiology Study observation (narrative)NOMThe Rehabilitation InstituteUS OB BPP W NON-STRESSOrdered By: Radiologist Radiology on 56-68-0219CJNB Healthcare Work Phone: us OB FOLLOW UP TRANSABDOMINAL APPROACHon 79-14-4895EJ OB FOLLOW UP TRANSABDOMINAL APPROACHEXAM: US OB FOLLOW UP TRANSABDOMINAL APPROACH HISTORY: [...] II, MD, PHD at 18-Sep-2024 08:23:43 AM [facility] TeleradiologyNormalNot AvailableComment on above:Order Comment: US OB SCAN FOR GROWTH Estimated Date of Delivery: 11/17/24 Gestational Age as of 08/27/2024: 15u0rLnkiypggcp macro (dipstick) panel (U)on 83-82-8199Inajogulg, UANegativeNegative - 4(70) +++ mg/dLNOMS HealthcareBlood, UANegativeNegative - 50 Alex/mcLNOMS HealthcareClarity, UAClearNOMS Healthcare Color, UAYellowNOMS HealthcareGlucose, UANegativeNegative - 2000(110) ++++ mg/dL N[facility] HealthcareInterpretation and review of laboratory resultsNormalNOMS HealthcareKetones, UANegativeNegative - 160(16) ++++ mg/dLNOMS Healthcare Leukocytes, UANegativeNegative - 500+++ Jodi/mcLNOMS HealthcareNitrite, UA NegativeNegative - PositiveNOMS HealthcarepH, UA75 - 9NOMS HealthcareProtein, UA NegativeNegative - 2000(20) ++++ mg/dLNOMS HealthcareSpec Grav, UA1.011 - 1.03 NOMS HealthcareUrobilinogen, UA0.20.2 - 12 mg/dLNOAK HealthcareNOMS Healthcare MLR HEMOGLOBIN A1Con 22-34-2907Yxqsigx [Mass/Vol]114 mg/dLNOAK BesmbkrmgiSsQ6o (Bld) [Mass fraction]5.6 %4.5 - 6.2 %NOMS HealthcareComment on above:ADA RECOMMENDED LIMIT 4.0 - 6.0 ADA THERAPEUTIC TARGET < 7.0 ACTION SUGGESTED > 7.0 CLINISYNCNOAK HealthcareUrinalysis macro (dipstick) panel (U)Ordered By: Daniel Pereira on 33-61-6706Vgzucazwl, UANegativeNegative - 4(70) +++ mg/dLNOMS Healthcare Work Phone: blood, UANegativeNegative - 50 Alex/mcLNOMS Healthcare Work Phone: clarity, UAClearNOMS Healthcare Work Phone: color, UAYellowNOMS Healthcare Work Phone: Glucose, UANegativeNegative - 2000(110) ++++ mg/dLNOMS Healthcare Work Phone: Interpretation and review of laboratory resultsNormal [facility] Healthcare Work Phone: Ketones, UANegativeNegative - 160(16) ++++ mg/dLNOMS Healthcare Work Phone: Leukocytes, UANegativeNegative - 500+++ Jodi/mcLNOMS Healthcare Work Phone: Nitrite, UANegativeNegative - PositiveNOMS Healthcare Work Phone: pH, UA6.55 - 9[facility] Work Phone: [phone], UANegativeNegative - 2000(20) ++++ mg/dLNOMS Healthcare Work Phone: Spec Grav, UA1.0151 - 1.03[facility] Work Phone: Urobilinogen, UA0.20.2 - 12 mg/dLNOMS Healthcare Work Phone: [phone] Work Phone: US OB LIMITED 1+ FETUSESon 64-03-4192SN OB LIMITED 1+ FETUSESEXAM: US OB LIMITED 1+ FETUSES HISTORY: Incomplete [...] MD, PHD at 01-Aug-2024 11:20:36 PM [facility] TeleradiologyNormalNot AvailableComment on above:Order Comment: US OB INCOMPLETE ANATOMY Estimated Date of Delivery: 11/17/24 Gestational Age as of 07/08/2024: 26x3qOXELRGJQM VAGINITIS (HTRX)on 06-04-2024 ATOPOBIUM SZJFCYV8VVGP HealthcareATOPOBIUM VAGINAENot detectedNOAK Healthcare BVAB 2,3 (BACTERIAL VAGINOSIS ASSOCIATED BACTERIA 2, 3); MOBILUNCUS QOE2THXZ HealthcareBVAB 2,3 (BACTERIAL VAGINOSIS ASSOCIATED BACTERIA 2, 3); MOBILUNCUS SPPNot detectedNOMS HealthcareCANDIDA ALBICANS, PARAPSILOSIS, PMAPQVCTSS9SRWJ HealthcareCANDIDA ALBICANS, PARAPSILOSIS, TROPICALISNot detectedNOMS Healthcare NICA DAZSTPIY4YPVE HealthcareCANDIDA GLABRATANot detectedNOMS Healthcare NICA NFUGXL7LHOD HealthcareCANDIDA KRUSEINot detectedNOMS HealthcareCHLAMYDIA VQOQYZESHZX7ZWMM HealthcareCHLAMYDIA TRACHOMATISNot detectedNOMS Healthcare GARDNERELLA KCGOLBIBQ18.376AbnormalNOMS HealthcareGARDNERELLA VAGINALISDetected AbnormalNOMS HealthcareInterpretation and review of laboratory resultsAbnormal NOMS HealthcareMEGASPHAERA (TYPES 1, 2)0NOMS HealthcareMEGASPHAERA (TYPES 1, 2) Not detectedNOMS HealthcareMYCOPLASMA FACBLNQLXQ9UYXF HealthcareMYCOPLASMA GENITALIUMNot detectedNOMS HealthcareNEISSERIA OKSNRMVTHIG7TQVQ Healthcare NEISSERIA GONORRHOEAENot detectedNOMS HealthcareTRICHOMONAS IZSPHMJZX4HSGK HealthcareTRICHOMONAS VAGINALISNot detectedNOMS HealthcareNOMS HealthcareUS OB 14+ WEEKS ANATOMY SCANon 46-89-5865SX OB 14+ WEEKS ANATOMY SCANEXAM: US OB 14+ WEEKS ANATOMY SCAN HISTORY: [...] II, MD, PHD at 02-Jul-2024 09:56:12 AM [facility] TeleradiologyNormalNot AvailableComment on above:Order Comment: US OB ANATOMY SINGLE W US OB CERVICAL LENGTH Estimated Date of Delivery: 11/17/24 Gestational Age as of 06/03/2024: 04z1lCefuswvvty macro (dipstick) panel (U)on 69-68-7160Yldiflowb, UANegativeNegative - 4(70) +++ mg/dLNOMS HealthcareBlood, UAPositiveNegative - 50 Alex/mcLNOMS HealthcareComment on above:trace-intact Clarity, UAClearNOMS HealthcareColor, UAYellowNOMS HealthcareGlucose, UANegative Negative - 1999(110) ++++ mg/dLNOMS HealthcareInterpretation and review of laboratory resultsAbnormalNOMS HealthcareKetones, UAPositiveNegative - 160(16) ++++ mg/dLNOMS HealthcareComment on above:15mg/dLLeukocytes, UANegativeNegative - 500+++ Jodi/mcLNOMS HealthcareNitrite, UANegativeNegative - PositiveNOMS HealthcarepH, UA5.55 - 9NOMS HealthcareProtein, UANegativeNegative - 2000(20) ++++ mg/dLNOMS HealthcareSpec Grav, UA1.021 - 1.03NOMS HealthcareUrobilinogen, UA0.20.2 - 12 mg/dLNOAK HealthcareNOAK HealthcareUrinalysis macro (dipstick) panel (U)on 00-71-0637Cxbuyaagi, UATraceNegative - 4(70) +++ mg/dLNOMS HealthcareBlood, UANegativeNegative - 50 Alex/mcLNOAK HealthcareClarity, UAClear NOMS HealthcareColor, UAYellowNOMS HealthcareGlucose, UANegativeNegative - 2000(110) ++++ mg/dLNOAK HealthcareInterpretation and review of laboratory resultsAbnormalNOAK HealthcareKetones, UAPositiveNegative - 160(16) ++++ mg/dL NOMS HealthcareLeukocytes, UANegativeNegative - 500+++ Jodi/mcLNOAK Healthcare Nitrite, UANegativeNegative - PositiveNOMS HealthcarepH, UA65 - 9NOAK Healthcare Protein, UAPositiveNegative - 2000(20) ++++ mg/dLNOAK HealthcareSpec Grav, UA 1.031 - 1.03NOAK HealthcareUrobilinogen, UA0.20.2 - 12 mg/dLNOAK HealthcareNOMS HealthcareALL CBC WITH AUTO DIFFon 23-86-9111ROZRHKWAW ABSOLUTE HTTG3GNGX HealthcareBasophils/100 WBC (Bld)0.4 %0.2 - 2.0 %NOMS HealthcareEosinophils/100 WBC (Bld)0.6 %Low0.9 - 7.0 %NOMS HealthcareErythrocyte distribution width (RBC) [Ratio]14.1 %11.0 - 15.0 %NOMS HealthcareHematocrit (Bld) [Volume fraction]40.6 %36.0 - 48.0 %NOMS HealthcareHemoglobin (Bld) [Mass/Vol]13.1 g/dL12.0 - 16.0 g/dLNOAK HealthcareIMMATURE GRANULOCYTES ABS AUTO0.03NOAK HealthcareImmature granulocytes/100 WBC (Bld)0.3 %0.0 - 0.5 %NOMS HealthcareInterpretation and review of laboratory resultsAbnormalNOAK HealthcareLYMPHOCYTES ABSOLUTE AUTO1.9 NOMS HealthcareLymphocytes/100 WBC (Bld)19.1 %Low20.5 - 60.0 %NOMS HealthcareMCH (RBC) [Entitic mass]27.9 pg26.7 - 34.0 pgSamaritan HospitalHC (RBC) [Mass/Vol] 32.3 g/dL29.9 - 35.2 g/dLSamaritan HospitalV (RBC) [Entitic vol]86.6 fL81.0 - 99.0 fLAlvin J. Siteman Cancer CenterMONOCYTES ABSOLUTE AUTO0.5NOAK HealthcareMonocytes/100 WBC (Bld)5.4 %1.7 - 12.0 %[facility] Cancer CenterNEUTROPHILS ABSOLUTE AUTO7.4HighASHLEY REGIONAL [facility] HealthcareNeutrophils/100 WBC (Bld)74.2 %43.0 - 75.0 %Alvin J. Siteman Cancer CenterPlatelet mean volume (Bld) [Entitic vol]9.3 fLLow9.5 - 13.5 fLAlvin J. Siteman Cancer CenterTBH EO #0.1 [facility] HNC588JZKEParkland Health Center RBC4.69NOParkland Health Center WBC9.9Alvin J. Siteman Cancer CenterCLINISYNCNOMS HealthcareUS OB TRANSVAGINALon 10-86-1106ZL OB TRANSVAGINALTITLE OF EXAM: US OB TRANSVAGINAL REASON FOR [...] 3.3 x 2.4 x 3.6 cm (8 weeks,0 days). [place] rump length is 1.8 cm (8 weeks, 2 days). heart rate is 184 bpm. No appreciablesubchorionic hemorrhage or other abnormality. Cervical length of [...] electronically signed and approved by the interpreting radiologist.NormalNot AvailableComment on above:Order Comment: No LMP recorded. Urine Cultureon 90-90-2980Lfphnrxi identified Cx Nom (U)No Growth 2 Days PERFORMED BY: [facility] [address] [place] [address] PATHOLOGIST HEAD OF MARKETING TOSHA PÉREZ M.D.NormalAdventhealth Palm Coast Parkway Physician GroupComment on above: Performed By: #### CUU #### [facility] [address] [place] [id number] USATB PREG QUANT HCGon 78-20-3501MFW MJWLZELNOYWM4751hUC/mL NOMS HealthcareComment on above:5-50 0.2-1 WEEK 50-500 1-2 WEEKS 100-5,000 2-3 WEEKS 500-10,000 3-4 WEEKS 1,000-50,000 4-5 WEEKS 10,000-100,000 5-6 WEEKS 15,000-200,000 6-8 WEEKS 10,000-100,000 2-3 MONTHS CLINISYNCNOMS HealthcareTB PREG QUANT HCGon 04-19-0402EDH SNDMYTOTYJYT8740 mIU/mLNOMS HealthcareComment on above:5-50 0.2-1 WEEK 50-500 1-2 WEEKS 100-5,000 2-3 WEEKS 500-10,000 3-4 WEEKS 1,000-50,000 4-5 WEEKS 10,000-100,000 5-6 WEEKS 15,000-200,000 6-8 WEEKS 10,000-100,000 2-3 MONTHS CLINISYNCNOMS HealthcareTB PREG QUANT HCGon 38-65-4894ZPE VTRQVIMLHDRI7095 mIU/mLNOMS HealthcareComment on above:5-50 0.2-1 WEEK 50-500 1-2 WEEKS 100-5,000 2-3 WEEKS 500-10,000 3-4 WEEKS 1,000-50,000 4-5 WEEKS 10,000-100,000 5-6 WEEKS 15,000-200,000 6-8 WEEKS 10,000-100,000 2-3 MONTHS CLINISYNCNOMS HealthcareTB PREG QUANT HCGon 60-88-1731QLG ENOJNIKQFOKS1973 mIU/mLNOMS HealthcareComment on above:5-50 0.2-1 WEEK 50-500 1-2 WEEKS 100-5,000 2-3 WEEKS 500-10,000 3-4 WEEKS 1,000-50,000 4-5 WEEKS 10,000-100,000 5-6 WEEKS 15,000-200,000 6-8 WEEKS 10,000-100,000 2-3 MONTHS [facility] PREG QUANT HCGon 61-03-0162HWN DQXFOAQZGTYC057aXR/mL NOMS HealthcareComment on above:5-50 0.2-1 WEEK 50-500 1-2 WEEKS 100-5,000 2-3 WEEKS 500-10,000 3-4 WEEKS 1,000-50,000 4-5 WEEKS 10,000-100,000 5-6 WEEKS 15,000-200,000 6-8 WEEKS 10,000-100,000 2-3 MONTHS [facility] PREG QUANT HCGon 54-77-2758TOB AGFTGNAHALRU242qCY/mL NOMS HealthcareComment on above:5-50 0.2-1 WEEK 50-500 1-2 WEEKS 100-5,000 2-3 WEEKS 500-10,000 3-4 WEEKS 1,000-50,000 4-5 WEEKS 10,000-100,000 5-6 WEEKS 15,000-200,000 6-8 WEEKS 10,000-100,000 2-3 MONTHS [facility] PREG QUANT HCGon 87-96-7701PYU ESJSXSSCUQRZ24uJU/mL NOMS HealthcareComment on above:5-50 0.2-1 WEEK 50-500 1-2 WEEKS 100-5,000 2-3 WEEKS 500-10,000 3-4 WEEKS 1,000-50,000 4-5 WEEKS 10,000-100,000 5-6 WEEKS 15,000-200,000 6-8 WEEKS 10,000-100,000 2-3 MONTHS [facility] PROGESTERONEon 43-68-7451VTLTQWQDEQCN1.3 ng/mL.NOMS HealthcareComment on above:Follicular phase 0.1 - 0.9 Luteal phase 1.8 - 23.9 Ovulation phase 0.1 - 12.0 First trimester 11.0 - 44.3 Second trimester 25.4 - 83.3 Third trimester 58.7 - 214.0 Postmenopausal 0.0 - 0.1 Performed at: [facility] Lab[address] [id number] Extraction Machine Operator: Josr Jarvis PhD, Phone: [phone] CLINISYHIGHLAND RIDGE [facility] HealthcareIGP,APTIMA HPV,AGE GDLNon 37-86-9990GGY GDLN ACOG TESTINGNote.NOMS HealthcareComment on above:TESTS RESULT FLAG UNITS REF RANGE LAB Clinician Provided Cytology Information Source.............Cervix;Endocervix No. of containers..01 ThinPrep Vial Age Algo ACOG Leida... 30-65 01 FLAG LEGEND: L-Low Normal,H-High Normal,LL-Alert Low,HH-Alert High <-Panic Low,>-Panic High,A-Abnormal,AA-Critical Abnormal Performed at: 01 =[address] [address] Stacey Tao MD, HPV APTIMANegativeNegativeASHLEY REGIONAL MED[facility]ENTER HealthcareComment on above:This nucleic acid amplification test detects fourteen high- risk HPV types (16,18,31,33,35,39,45,51,52,56,58,59,66,68) without differentiation. Performed at: =[facility] [address], [place] [id number] Extraction Machine Operator: Stacey Tao MD, Phone: [phone] Performed at: [facility] - [facility], [place] [id number] Extraction Machine Operator: Stacey Tao MD, Phone: [phone] IGP, APTIMA HPV, RFX 16/18,45Note.NOMS HealthcareComment on above:TESTS RESULT FLAG UNITS REF RANGE LAB DIAGNOSIS: 02 NEGATIVE FOR INTRAEPITHELIAL LESION OR MALIGNANCY. Specimen adequacy: 02 Satisfactory for evaluation. Endocervical and/or squamous metaplastic cells (endocervical component) are present. Performed by: 02 Ed Mancilla, Welding Machine Operator (ASC) . 02 Note: Note 02 [...] <-Panic Low,>-Panic High,A-Abnormal,AA-Critical Abnormal Performed at: [address] [facility] [address] [address] Stacey Tao MD, BRUSH-SPATULA CERVIX ENDOCERVIX CLINISYNCNOSaint Mary's Health CenterEA-SULFATEon 62-48-1419MESP-Dmniftp809.0 ug/dLNormal 84.8-378.0The [facility] HospitalComment on above:Performed By: #### LBCLH #### [facility] [address] [place] [address] Dr. Nam Garcia 16-87-8390GWD9.7 mIU/mLNormalThe [facility] HospitalComment on above:Result Comment: Adult Female: Follicular phase 3.5 - 12.5 Ovulation phase 4.7 - 21.5 Luteal phase 1.7 - 7.7 Postmenopausal 25.8 - 134.8Performed By: #### LBCFSH #### [facility] [address] [place] [address] Dr. Nam KeenanLUTEINIZING HORMONE (LH)on 98-56-2382XZ12.7 mIU/mLNormalThe [facility] HospitalComment on above:Result Comment: Adult Female: Follicular phase 2.4 - 12.6 Ovulation phase 14.0 - 95.6 Luteal phase 1.0 - 11.4 Postmenopausal 7.7 - 58.5Performed By: #### LBCLH #### [facility] [address] [place] [address] Dr. Nam Fuller AUTO DIFFon 22-89-8371GZBI #0.1 103/ulNormal0.0-0.1The [facility] HospitalComment on above:Performed By: #### LBCLH #### [facility] [address] [place] [address] Dr. Nam KeenanBasophils/100 WBC (Bld)0.7 %Normal0.2-2.0The [facility] Comment on above:Performed By: #### LBCLH #### [facility] [address] [place] [address] Dr. Browning ChangENicky #0.3 103/ulNormal0.0-0.7The [facility] HospitalComment on above: Performed By: #### [facility] #### [facility] [address] [place] [address] Dr. Nam Romanoosinophils/100 WBC (Bld)3.9 %Normal0.9-7.0[facility] Comment on above:Performed By: #### [facility] #### [facility] [address] [place] [address] Dr. Nam Romanorythrocyte distribution width (RBC) [Ratio]13.3 %Jfyacm30.0-15.0 [facility] HospitalComment on above:Performed By: #### [facility] #### [facility] [address] [place] [address] Dr. Nam KeenanHematocrit (Bld) [Volume fraction]38.7 %Gtyqtt92.0-48.0The [facility] HospitalComment on above:Performed By: #### [facility] #### [facility] [address] [place] [address] Dr. Nam KeenanHemoglobin (Bld) [Mass/Vol]12.4 g/nSWapthc00.0-16.0The [facility] HospitalComment on above:Performed By: #### [facility] #### [facility] [address] [place] [address] Dr. Nam Youngblood #0.01 10e3/ulNormal0.00-0.03The [facility] HospitalComment on above:Performed By: #### [facility] #### [facility] Laboratory [address] [place] [address] Dr. Nam Youngblood %0.1 %Normal0.0-0.5The [facility] HospitalComment on above: Performed By: #### LBCLH #### [facility] [address] [place] [address] Dr. Nam GarciaMPH #2.9 103/ulNormal1.2-3.8The [facility] HospitalComment on above:Performed By: #### LBCLH #### [facility] [address] [place] [address] Dr. Nam Garciamphocytes/100 WBC (Bld)34.4 %Ogwglt44.5-60.0The [facility] HospitalComment on above:Performed By: #### LBCLH #### [facility] [address] [place] [address] Dr. Nam GibbonsUAL DIFF REQNONormalThe [facility] HospitalComment on above: Performed By: #### LBCLH #### [facility] [address] [place] [address] Dr. Nam Sales (RBC) [Entitic mass]27.8 emVpwuhf89.7-34.0The [facility] HospitalComment on above:Performed By: #### LBCLH #### [facility] [address] [place] [address] Dr. Nam Sales (RBC) [Mass/Vol]32.0 g/gMQzplyq77.9-35.2The [facility] HospitalComment on above:Performed By: #### LBCLH #### [facility] [address] [place] [address] Dr. Nam Sales (RBC) [Entitic vol]86.8 qOWklkck18.0-99.0The [facility] HospitalComment on above:Performed By: #### LBCLH #### [facility] [address] [place] [address] Dr. Nam Mccarthy #0.6 103/ulNormal0.3-0.8The [facility] HospitalComment on above:Performed By: #### LBCLH #### [facility] [address] [place] [address] Dr. Nam Archerocytes/100 WBC (Bld)6.7 %Normal1.7-12.0The [facility] Comment on above:Performed By: #### LBCLH #### [facility] [address] [place] [address] Dr. Nam Martell #4.6 103/ulNormal1.4-6.5The [facility] HospitalComment on above:Performed By: #### LBCLH #### [facility] Laboratory [address] [place] [address] Dr. Nam KeenanNeutrophils/100 WBC (Bld)54.2 %Gmvqxb83.0-75.0The [facility] on above:Performed By: #### LBCLH #### [facility] [address] [place] [address] Dr. Nam Mcduffielet mean volume (Bld) [Entitic vol]9.6 fLNormal9.5-13.5The [facility] HospitalComment on above:Performed By: #### LBCLH #### [facility] [address] [place] [address] Dr. Nam KeenanPLT335 103/kvGhhqsk578-766Tbe [facility] HospitalComment on above: Performed By: #### LBCLH #### [facility] [address] [place] [address] Dr. Nam KeenanRBC4.46 106/ulNormal4.20-5.40The [facility] HospitalComment on above:Performed By: #### LBCLH #### [facility] [address] [place] [address] Dr. Nam KeenanWBC8.5 103/ulNormal4.0-11.0The [facility] HospitalCompontiac [facility] hospital on above: Performed By: #### LBCLH #### [facility] Laboratory [address] [place] [address] Dr. Nam KeenanFRGOYO T4on 50-79-9193Qncr T4 [Mass/Vol]1.14 ng/dLNormal0.76-1.46 The [facility] HospitalCompontiac [facility] hospital on above:Performed By: #### LBCLH #### [facility] Laboratory [address] [place] [address] Dr. Nam KeenanGLYCOHEMOGLOBIN A1Con 59-15-9627XZL RECOMMENDATIONSEE BELOWNormal [facility] HospitalComp[facility] on above:Result Comment: ADA RECOMMENDED LIMIT 4.0 - 6.0 ADA THERAPEUTIC TARGET < 7.0 ACTION SUGGESTED > 7.0Performed By: #### A1C #### [facility] [address] [place] [address] Dr. Nam KeenanGlucose [Mass/Vol]97 mg/dLNoDayton VA Medical CenterComment on above:Performed By: #### A1C #### [facility] [address] [place] [address] Dr. Nam KeenanHbA1c (Bld) [Mass fraction]5.0 %Normal4.5-6.2The [facility] HospitalComment on above:Performed By: #### A1C #### [facility] [address] [place] [address] Dr. Nam Cazares QUANT HCGon 89-29-0606ALB QUANT<1NormalThe [facility] Comment on above:Performed By: #### PREGQNT, TSH #### [facility] [address] [place] [address] Dr. Nam [facility] BELOWDetwiler Memorial HospitalComment on above: Result Comment: 5-50 0.2-1 WEEK 50-500 1-2 WEEKS 100-5,000 2-3 WEEKS 500-10,000 3-4 WEEKS 1,000-50,000 4-5 WEEKS 10,000-100,000 5-6 WEEKS 15,000-200,000 6-8 WEEKS 10,000-100,000 2-3 MONTHSPerformed By: #### PREGQNT, TSH #### [facility] [address] [place] [address] Dr. Nam Multani 09-21-0753TSQ5.026 uIU/mLNormal0.358-3.740[facility] HospitalComment on above:Performed By: #### PREGQNT, TSH #### [facility] [address] [place] [address] Dr. Nam Cazares QUANT HCGon 77-17-6241ZLF QUANT3 mIU/mLNormalThe [facility] HospitalComment on above:Performed By: #### PREGQNT #### [facility] [address] [place] [address] Dr. Nam Mc RANGESEE [facility] HospitalComment on above: Result Comment: 5-50 0.2-1 WEEK 50-500 1-2 WEEKS 100-5,000 2-3 WEEKS 500-10,000 3-4 WEEKS 1,000-50,000 4-5 WEEKS 10,000-100,000 5-6 WEEKS 15,000-200,000 6-8 WEEKS 10,000-100,000 2-3 MONTHSPerformed By: #### PREGQNT #### [facility] [address] [place] [address] Dr. Nam MoniqueC AUTO DIFFon 10-94-0777OQPO #0.1 103/ulNormal0.0-0.1The [facility] HospitalComment on above:Performed By: #### LBCLH #### [facility] [address] [place] [address] Dr. Nam KeenanBasophils/100 WBC (Bld)0.7 %Normal0.2-2.0[facility] Comment on above:Performed By: #### LBCLH #### [facility] [address] [place] [address] Dr. Nam Britt #0.2 103/ulNormal0.0-0.7The [facility] HospitalComment on above: Performed By: #### LBCLH #### [facility] [address] [place] [address] Dr. Nam Romanoosinophils/100 WBC (Bld)1.6 %Normal0.9-7.0[facility] Comment on above:Performed By: #### LBCLH #### [facility] [address] [place] [address] Dr. Nam Romanorythrocyte distribution width (RBC) [Ratio]13.9 %Hkwchd34.0-15.0 [facility] HospitalComment on above:Performed By: #### LBCLH #### [facility] [address] [place] [address] Dr. Nam KeenanHematocrit (Bld) [Volume fraction]36.2 %Gwfqch38.0-48.0The [facility] HospitalComment on above:Performed By: #### LBCLH #### [facility] [address] [address] [address] Nam KeenanHemoglobin (Bld) [Mass/Vol]12.1 g/zJGanwan42.0-16.0The [facility] HospitalComment on above:Performed By: #### LBCLH #### [facility] [address] [address] [address] Nam Youngblood #0.03 10e3/ulNormal0.00-0.03The [facility] HospitalComment on above:Performed By: #### LBCLH #### [facility] [address] [address] [address] Nam Youngblood %0.3 %Normal0.0-0.5The [facility] HospitalComment on above: Performed By: #### LBCLH #### [facility] [address] [place] [address] Dr. Nam Couch #3.9 103/ulCritically high1.2-3.8The [facility] Comment on above:Performed By: #### LBCLH #### [facility] [address] [place] [address] Dr. Nam Couchhocytes/100 WBC (Bld)38.0 %Kouhqn80.5-60.0The [facility] HospitalComment on above:Performed By: #### LBCLH #### [facility] [address] [address] [address] Nam GibbonsUAL DIFF REQNONormalThe [facility] HospitalComment on above: Performed By: #### LBCLH #### [facility] [address] [address] [address] Nam Sales (RBC) [Entitic mass]28.0 iiXkroag25.7-34.0The [facility] HospitalComment on above:Performed By: #### LBCLH #### [facility] [address] [place] [address] Dr. Nam Sales (RBC) [Mass/Vol]33.4 g/yBFsojkl40.9-35.2The [facility] HospitalComment on above:Performed By: #### LBCLH #### [facility] [address] [place] [address] Dr. Nam Savage (RBC) [Entitic vol]83.8 jBUnuozo87.0-99.0The [facility] HospitalComment on above:Performed By: #### LBCLH #### [facility] [address] [place] [address] Dr. Nam Mccarthy #0.8 103/ulNormal0.3-0.8The [facility] HospitalComment on above:Performed By: #### LBCLH #### [facility] [address] [place] [address] Dr. Nam Archerocytes/100 WBC (Bld)7.6 %Normal1.7-12.0The [facility] Comment on above:Performed By: #### LBCLH #### [facility] [address] [place] [address] Dr. Nam Martell #5.4 103/ulNormal1.4-6.5The [facility] HospitalComment on above:Performed By: #### LBCLH #### [facility] [address] [place] [address] Dr. Nam Dodsonutrophils/100 WBC (Bld)51.8 %Clzupj79.0-75.0The [facility] HospitalComment on above:Performed By: #### LBCLH #### [facility] [address] [place] [address] Dr. Nam Mcduffielet mean volume (Bld) [Entitic vol]9.1 fLCritically low 9.5-13.5The [facility] HospitalComment on above:Performed By: #### LBCLH #### [facility] [address] [place] [address] Dr. Nam MontesT342 103/raJuvgdi301-619Rzd [facility] HospitalComment on above: Performed By: #### LBCLH #### [facility] [address] [place] [address] Dr. Yilan ChangRBC4.32 106/ulNormal4.20-5.40The [facility] HospitalComment on above:Performed By: #### LBCLH #### [facility] [address] [place] [address] Dr. Nam KeenanWBC10.3 103/ulNormal4.0-11.0The [facility] HospitalComment on above:Performed By: #### LBCLH #### [facility] [address] [place] [address] Dr. Nam KeenanPROF CHEM 8 (BAS METB)on 39-15-9449Gpswv gap [Moles/Vol]12.1 mmol/LNormalThe [facility] HospitalComment on above:Performed By: #### BMP #### [facility] [address] [place] [address] Dr. Nam KeenanCalcium [Mass/Vol]8.9 mg/dLNormal8.5-10.1The [facility] Comment on above:Performed By: #### BMP #### [facility] [address] [place] [address] Dr. Nam KeenanChloride [Moles/Vol]105 mmol/LEnivko60-498Sjc [facility] Comment on above:Performed By: #### BMP #### [facility] [address] [place] [address] Dr. Nam KeenanCO2 [Moles/Vol]27.4 mmol/KTslfpb99.0-32.0The [facility] Comment on above:Performed By: #### BMP #### [facility] [address] [place] [address] Dr. Nam KeenanCreatinine [Mass/Vol]0.66 mg/dLNormal0.55-1.02The [facility] HospitalComment on above:Performed By: #### BMP #### [facility] [address] [place] [address] Dr. Nam RomanoGFR-AF PAPUA [place] GUINEAN>60Normal>=60The [facility] HospitalComment on above:Performed By: #### BMP #### [facility] [address] [place], [place] [address] Dr. Nam RomanoGFR-NON AF P[place]>60Normal>=60[facility] HospitalComment on above:Performed By: #### BMP #### [facility] [address] [place] [address] Dr. Nam KeenanGlucose [Mass/Vol]105 mg/tVRuspkp29-425RpzOhiohealth Dublin Methodist Hospital Comment on above:Performed By: #### BMP #### [facility] [address] [place] [address] Dr. Nam KeenanPotassium [Moles/Vol]3.5 mmol/LNormal3.5-5.1[facility] Comment on above:Performed By: #### BMP #### [facility] [address] [place] [address] Dr. Nam KeenanSodium [Moles/Vol]141 mmol/GKzsljt812-274AtxOhiohealth Dublin Methodist Hospital Comment on above:Performed By: #### BMP #### [facility] [address] [place] [address] Dr. Nam KeenanUrea nitrogen [Mass/Vol]7.0 mg/dLNormal7.0-18.0[facility] HospitalComment on above:Performed By: #### BMP #### [facility] [address] [place] [address] Dr. Nam Bronson nitrogen/Creatinine [Mass ratio]10.6 mg/mgNoDayton VA Medical CenterComment on above:Performed By: #### BMP #### [facility] [address] [place] [address] Dr. Nam KeenanPREBekah QUANT HCGon 49-47-0121KKB LCNXH277 mIU/mLNormalOhiohealth Dublin Methodist HospitalComment on above:Performed By: #### LBCLH #### [facility] [address] [place] [address] Dr. Nam Mc RANGESEE [facility] HospitalComment on above: Result Comment: 5-50 0.2-1 WEEK 50-500 1-2 WEEKS 100-5,000 2-3 WEEKS 500-10,000 3-4 WEEKS 1,000-50,000 4-5 WEEKS 10,000-100,000 5-6 WEEKS 15,000-200,000 6-8 WEEKS 10,000-100,000 2-3 MONTHSPerformed By: #### LBCLH #### [facility] [address] [place] [address] Dr. Nam Turcios PREG TVon 80-39-6267GP PREG TVEXAMINATION: US PREG TV HISTORY: Missed period COMPARISON: [...] Electronically authenticated by: ROOSEVELT LOPEZ Date: 2022-05-13 13:02[facility] HospitalPREG QUANT HCGon 36-83-5562AUK YRVEM047 mIU/mLNormalOhiohealth Dublin Methodist HospitalComment on above:Performed By: #### LBCLH #### [facility] [address] [place] [address] Dr. Nam HinojosaG RANGESEE [facility] HospitalComment on above: Result Comment: 5-50 0.2-1 WEEK 50-500 1-2 WEEKS 100-5,000 2-3 WEEKS 500-10,000 3-4 WEEKS 1,000-50,000 4-5 WEEKS 10,000-100,000 5-6 WEEKS 15,000-200,000 6-8 WEEKS 10,000-100,000 2-3 MONTHSPerformed By: #### LBCLH #### [facility] [address] [place] [address] Dr. Nam Cazares QUANT HCGon 78-31-5970SZR QUANT50 mIU/mLNFisher-Titus Medical CenterComment on above:Performed By: #### PREGQNT #### [facility] [address] [place] [address] Dr. Nam Mc [facility] HospitalComment on above: Result Comment: 5-50 0.2-1 WEEK 50-500 1-2 WEEKS 100-5,000 2-3 WEEKS 500-10,000 3-4 WEEKS 1,000-50,000 4-5 WEEKS 10,000-100,000 5-6 WEEKS 15,000-200,000 6-8 WEEKS 10,000-100,000 2-3 MONTHSPerformed By: #### PREGQNT #### [facility] [address] [place] [address] Dr. Nam KeenanPROGESTERONEon 50-52-1799Azxkmsvnqxtf66.6 ng/mLNFisher-Titus Medical CenterComment on above:Result Comment: Follicular phase 0.1 - 0.9 Luteal phase 1.8 - 23.9 Ovulation phase 0.1 - 12.0 First trimester 11.0 - 44.3 Second trimester 25.4 - 83.3 Third trimester 58.7 - 214.0 Postmenopausal 0.0 - 0.1Performed By: #### PROGES #### [facility] [address] [place] [address] Dr. Nam KeenanPROGESTERONEon 15-14-9869Udfiuackjhlx7.5 ng/mLNFisher-Titus Medical CenterComment on above:Result Comment: Follicular phase 0.1 - 0.9 Luteal phase 1.8 - 23.9 Ovulation phase 0.1 - 12.0 First trimester 11.0 - 44.3 Second trimester 25.4 - 83.3 Third trimester 58.7 - 214.0 Postmenopausal 0.0 - 0.1Performed By: #### LBCLH #### [facility] [address] [place] [address] Dr. Nam KeenanPROGESTERONEon 41-97-0308Pwjunbbzjdeb7.2 ng/mLNFisher-Titus Medical CenterComment on above:Result Comment: Follicular phase 0.1 - 0.9 Luteal phase 1.8 - 23.9 Ovulation phase 0.1 - 12.0 First trimester 11.0 - 44.3 Second trimester 25.4 - 83.3 Third trimester 58.7 - 214.0 Postmenopausal 0.0 - 0.1Performed By: #### LBCLH #### [facility] [address] [place], [place] [address] Dr. Nam KeenanPROGESTERONEon 02-62-0623Xvrwsujysfaa29.0 ng/mLNFisher-Titus Medical CenterComment on above:Result Comment: Follicular phase 0.1 - 0.9 Luteal phase 1.8 - 23.9 Ovulation phase 0.1 - 12.0 First trimester 11.0 - 44.3 Second trimester 25.4 - 83.3 Third trimester 58.7 - 214.0 Postmenopausal 0.0 - 0.1Performed By: #### PROGES #### [facility] [address] [place], [place] [address] Dr. Nam Contreras Summary.on 71-37-5513Xpwltw Summary. CD:[id number]+PGhlYWQ+OM0NKWFgB43gkFBsiG2YR1sWUE3PASVXSQXCTG1IUE4dc HS6RVfdC5CozqNt [file] bGFw (more content not included)...[facility] CampusCoding Summary.on 02-24-2433Gjezbu Summary. CD:[id number]+PGhlYWQ+HS3COHFlM26wkYBpzD1EC3mITO0CEWGJJTGIMF1FCY1fb KR4MYnyR1MjwpZh [file] YXBz (more content not included)...[facility] CampusCoding Summary. CD:[id number]+PGhlYWQ+OG7ATDHwL70ugKDplS3EN9cIRJ0BJNZQRZKRGP3SSK1ts QG5OPgyQ3ApptMj [file] YXBz (more content not included)...NormalCleveland Clinic Mercy HospitalAuto Diffon 10-44-4697Knqwhepgn/100 WBC (Bld)0.2 %Normal0.0-2.0[facility] Comment on above:Order Comment: Order Added by Discern Expert.Performed By: #### [id number], 1363574, 0827103, 1676965, 59817339, 91403277, 72678197 ####[address] [place] [address] Basophils/Leukocytes Auto (Bld) [Pure # fraction]0.0 E9/LNormal0.0-0.2FProvidence HospitalComment on above:Order Comment: Order Added by Discern Expert.Performed By: #### 4070971, 2096198, 7662543, 8008915, 34522072, 75355212, 46152891 ####[address] [address]Kosvqglpyup/100 WBC (Bld)0.0 %Normal0.0-8.0[facility] HospitalComment on above:Order Comment: Order Added by Discern Expert. Performed By: #### 5998223, 3057605, 3164852, 7799717, 11025326, 81252544, 45762894 ####[address] [address]Iyppkdslcev/Leukocytes Auto (Bld) [Pure # fraction]0.0 E9/LNormal0.0-0.5 [facility] HospitalComment on above:Order Comment: Order Added by Discern Expert.Performed By: #### 9694137, 7016834, 9921076, 8256719, 94626577, 70996548, 70838970 ####[address] [address]Kxpicsleyic/100 WBC (Bld)19.4 %Vfdrdj96.0-50.0[facility] HospitalComment on above:Order Comment: Order Added by Discern Expert. Performed By: #### 9797798, 7223613, 3073335, 4389095, 19091665, 45193927, 49927749 ####[address] [place], [place] [address]Guwcqxjphaq/Leukocytes Auto (Bld) [Pure # fraction]1.0 E9/LNormal1.0-4.0 [facility] HospitalComment on above:Order Comment: Order Added by Discern Expert.Performed By: #### 2935769, 8441712, 1336091, 7433016, 09374207, 03757132, 31171443 ####[address] [address]Crsjwqowx/100 WBC (Bld)6.9 %Normal4.0-14.0[facility] HospitalComment on above:Order Comment: Order Added by Discern Expert. Performed By: #### 7235369, 0932954, 5957797, 6948773, 17072401, 01325157, 51377456 ####[address] [address]Fysnhvazv/Leukocytes Auto (Bld) [Pure # fraction]0.3 E9/LNormal0.2-1.0 [facility] HospitalComment on above:Order Comment: Order Added by Discern Expert.Performed By: #### 3853446, 3259843, 1825087, 9922289, 02164287, 50940317, 71966193 ####[address] [address]Zneamuettaa/100 WBC (Bld)73.5 %Hijzyz59.0-75.0[facility] HospitalComment on above:Order Comment: Order Added by Discern Expert. Performed By: #### 6308914, 8656437, 1498223, 4059670, 96523987, 94857395, 10786829 ####[address] [address]Oppefnalrpx/Leukocytes Auto (Bld) [Pure # fraction]3.6 E9/LNormal2.0-7.5 [facility] HospitalComment on above:Order Comment: Order Added by Discern Expert.Performed By: #### 9333683, 6847228, 2141522, 3855968, 49120072, 31536301, 69811204 ####[address], [place] [address]KWWed 85-20-7049Weyyrwoqkl [Mass/Vol]0.8 mg/dLNormal0.5-1.3 [facility] HospitalComment on above:Performed By: #### 5585934, 7843229, 3074647, 2173162, 12679776, 31879441, 14044139 ####[facility] [address] [place], [place] [address]Xhos nitrogen [Mass/Vol]8 mg/dLNormal 5-21[facility] HospitalComment on above:Performed By: #### 8969655, 8708444, 2640511, 9040244, 16558275, 17470117, 12262130 ####[facility] [address] [place], [place] [address]Jxhh nitrogen/Creatinine [Mass ratio]10 No SgvamRvtxjg46-14VbeindCleveland Clinic Mercy HospitalComment on above: Performed By: #### 7408732, 9669558, 2408902, 7980181, 63758603, 13438147, 28948746 ####[facility] [address] [place] [address]Llkds gap [Moles/Vol]16 mmol/LNormal6-16[facility] HospitalComment on above:Performed By: #### 5611997, 3390070, 0515847, 3002227, 69411242, 20861969, 77038238 ####[facility] [address] [place] [address]Mretgzy [Mass/Vol]8.3 mg/dLLow8.9-11.1FProvidence HospitalComment on above:Performed By: #### 5633404, 6909400, 3275441, 7302092, 92212275, 40343429, 00820771 ####[facility] [address] [place], [place] [address]Kvumrxnq [Moles/Vol]99 mmol/TCrk068-601WvbmceCleveland Clinic Mercy HospitalComment on above:Performed By: #### 8768604, 9364675, 9531277, 8378876, 27947835, 24296394, 51894218 ####[facility] [address] [place], [place] [address]UB8 [Moles/Vol]21 mmol/FDbdqii81-03 [facility] HospitalComment on above:Performed By: #### 7881947, 3521404, 4818566, 7025784, 22188781, 01419843, 48921476 ####[facility] [address] [place], [place] [address]Jbqlvtr [Mass/Vol]127 mg/dLNormal 55-199[facility] HospitalComment on above:Result Comment: If this glucose result represents a fasting glucose, interpretation should refer tothe following reference range: 55-99 mg/dLPerformed By: #### 1071589, 0497029, 8372305, 6338647, 45645693, 74706079, 25948293 ####[address] [place], [place] [address]Jfjezdfyf [Moles/Vol]3.5 mmol/LNormal 3.5-5.3FProvidence HospitalComment on above:Performed By: #### 3198571, 7053804, 4171963, 3894539, 03077521, 59295102, 25373721 ####[address] [place], [place] [address]Ductlb [Moles/Vol]132 mmol/L Fvm832-547GyvpwfCleveland Clinic Mercy HospitalComment on above:Performed By: #### 1972505, 1735734, 8764811, 9690329, 07748208, 30094837, 61511596 ####[address] [place], [place] [address]QQE w/ Auto Diff on 71-79-7441Ztgvxldgkho distribution width (RBC) [Ratio]14.2 %Urrhho09.9-14.2 [facility] HospitalComment on above:Performed By: #### 4103703, 0517148, 1068794, 3312014, 25819655, 88642268, 17138272 ####[facility] [address] [place], [place] [address]Ynuxhjfvib (Bld) [Volume fraction] 39.9 %Nuufvy08.0-46.0[facility] HospitalComment on above:Performed By: #### 5740512, 2066912, 7107638, 5115439, 94021938, 62630194, 58863860 ####[facility] [address] [place], [place] [address]Twqvyixtvn (Bld) [Mass/Vol]13.0 g/uYYlgmrw41.0-16.0[facility] HospitalComment on above: Performed By: #### 9796658, 2333237, 7614832, 9131969, 12734943, 25230399, 16424510 ####[address] [address]WAO (RBC) [Entitic mass]27.3 ynMtorzy04.0-34.0[facility] Comment on above:Performed By: #### 9974809, 8403927, 2514236, 0971494, 79416097, 47422200, 08593088 ####[address] [place], [place] [address]OZTR (RBC) [Mass/Vol]32.7 g/iOVphqha13.4-36.0[facility] HospitalComment on above:Performed By: #### 5509497, 6955633, 2697654, 7104123, 80240382, 17111035, 78279891 ####[address] [place], [place] [address]RJU (RBC) [Entitic vol]83.4 fLNormal 80.0-100.0[facility] HospitalComment on above:Performed By: #### 0025361, 6425109, 1432907, 3113475, 60562089, 29159189, 60784444 ####[facility] [address] [place], [place] [address]Cbenbjab mean volume (Bld) [Entitic vol]7.8 fLNormal6.4-10.8[facility] HospitalComment on above:Performed By: #### 0919918, 4132629, 4780435, 1972671, 97325096, 47471664, [id number] ####[address] [address]Uxkxeuezm (Bld) [#/Vol]188.0 E9/GBofezn197.0-500.0[facility] HospitalComment on above:Performed By: #### 9581462, 0250299, 7374001, 8509099, 44871587, 78639756, [id number] ####[address] [address]COH (Bld) [#/Vol]4.8 E12/LNormal 4.3-5.9[facility] HospitalComment on above:Performed By: #### 9485866, 9198262, 4666591, 0185145, 85002519, 65802564, 07324210 ####[address] [address]RUM corrected for nucl RBC Auto (Bld) [#/Vol]4.9 E9/LNormal4.0-11.0[facility] Mer[facility] HospitalComment on above:Performed By: #### 7536445, 3869832, 0621392, 0261969, 15312365, 39123064, 00015676 ####[address] [address]DWQ Cheston 98-27-7186LXN ChestExam Date/Time: 03/12/2021 12:11 EST Reason for Exam: [...] Contrast: Isovue 370 Contrast amount in ml's: 79NoOhio State East HospitalConsent for Treatmenton 30-06-5003Kdeqrxh for Treatment [id number]#1.00CD:127NoOhio State East HospitalD-Dimeron 67-80-5963Soamds D-dimer FEU (PPP) [Mass/Vol]586 CD:[id number] Kkinotzx716-490DewlqnCleveland Clinic Mercy HospitalComment on above:Result Comment: Results Verified By Repeat Analysis Results Called To [...] infections, pneumonia, severe skin infections Liver cirrhosis PregnancyPerformed By: #### 3031798, 1165646, 5396359, 9502072, 53575117, 15449137, 04761468 ####[facility] [address] [place], [place] [address]Nxtfcpgys Instructionson 87-64-2518Tteyctvon Instructions [id number]#1.00CD:127NormalFisher [facility] Clinical Summaryon [id number] Clinical Summary [address] [address] ED Clinical Summary Person Information Name: ED MURPHY [facility] Age: 30 Years : 1990 Sex: Female Language: Yi PCP: Tricia Dewey CNP Marital Status: Phone: [phone] Visit Id: Visit Reason: Fever; Diarrhea; Shortness [...] 03/12/2021 12:55:56 03/12/2021 12:55:56 03/12/2021 12:55:56 ADDRESS: [address] [place] [phone] PHYS DOC NOTES: MEDICAL INFORMATION: Prescriptions Given: New Medications [facility], [address], [place] [phone], [phone] albuterol (albuterol CFC free 90 mcg/inh Inh [...] Follow up: With: Address: When: Tricia Dewey [address] [place] [address], [facility], [address] [place], [place] [phone] Business (1) In 3 days DIAGNOSIS: COVID-19; Near syncopeNormalFisher Bruce Medical CenterED Note-Physicianon 12-45-7885NM Note-PhysicianBasic Information Time Seen: Tal Gonzalez DO 03/12/2021 [...] of COVID-19. Patient denies any chance of pregnancystating recent menstrual cycle. She denies any other history of cardiac or pulmonary disease. No other aggravating or relieving factors no other associated symptoms no other prior treatments orcomplaints. Family: Reviewed and noncontributory Social: lives at [...] puff(s), Inhalation, QID, 8 gram, Refill(s) 0, [facility], 173, cm, 03/12/21 9:08:00 EST, Height/Length Dosing, 125, kg, 03/12/21 9:08:00 EST, Weight Dosing azithromycin, 250 mg, Oral, As Directed, Take two tabs by mouth on day one, then one tab daily, # 6tab(s), Refills(s) 0, Pharmacy: [facility], 173, cm, 03/12/21 9:08:00 EST, Height/Length Dosing, 125, kg, 03/12/21 9:08:00 EST, Weight Dosing dexamethasone, 6 mg = 1 tab(s), Oral, Daily, X 7 day(s), # 7 tab(s), Refills(s) 0, Pharmacy: [facility], 173, cm, 03/12/21 9:08:00 EST, Height/Length Dosing, 125, kg, 03/12/21 9:08:00EST, Weight Dosing Sodium Chloride 0.9% intravenous solution, [...] [address] [facility], [address] [place] [phone] Business (1) Additional Instructions: Problem List/Past Medical [...] Use, 07/08/2010 Past, denies, (more content not included)...[facility] Comment on above:Result Comment: Electronically Signed By: Tal Gonzalez DO\.br\Date and Time Signed: 03/12/21 12:46ESTED Patient Education Noteon 79-55-7336SS Patient Education NoteNoGreen Cross Hospital CenterED Patient Summaryon [id number] Patient Summary [facility] [address] [place], [place] [address] Patient Discharge Instructions Person Information Name: ED MURPHY Age: 30 Years Arrival Date: 03/12/2021 08:55:19 Discharge Diagnosis: COVID-19; Near syncope Primary Care Physician: Tricia Dewey CNP Provider Information Primary Provider: Tal Gonzalez DO Advanced Hardscape Foreman:None The exam and treatment you received in the Emergency Department were for an urgent problem and are not intended as complete care. It is important that you follow up with a doctor, nurse practitioner,or physician?s licensed sales assistant for ongoing care. If your symptoms [...] Follow-up Instructions: With: Address: When: Tricia Dewey [address] [place] [address], [address] [place] [phone] Business (1) In 3 days In the event that this physician does not participate in your insurance network, please consult with your insurance company to find a nearby participating provider. Patient Education Materials: A MESSAGE TO ALL PATIENTS REGARDING OPIOIDS PRESCRIPTION OPIOIDS: WHAT YOU NEED TO KNOW Prescription opioids can be used to help relieve cqcapfjr-tt-qwffui pain and are often prescribed following a [...] and have fewer risks and side effects. Optionsmay include: ? Pain relievers such as acetaminophen, [...] unused prescription opioids: Find your community drug take- back program or [employer] mail-back program, or flush them down the toilet, following guidance from the Food and Drug Administration (www.fda.gov/Drugs/ResourcesForYou). ? Visit www.cdc.gov/drugoverdose to learn about the risks of opioids abuse and overdose. ? If you believe you may be struggling with addiction, tell your health career technical education teacher and ask for guidance or call [facility]ITALA?S National Helpline at 5-616-488-TXRU. s Source: US Department of Health and Human (more content not included)...Normal [facility] HospitalPT & PTTon 06-62-5854cDCH Coag (PPP) [Time]30.8 second(s)Paryrx04.1-36.5FProvidence HospitalComment on above:Result Comment: Heparin therapeutic range (represented by Anti-Factor Xa activity of 0.2 - 0.4 U/mL) corresponds to PTT of 56.6 - 109.0 sec.Performed By: #### [id number], 8260699, 8690926, 6665186, 28204712, 29407209, 46950828 ####[facility] [address] Hanksnyc health + hospitalsflorinaFORT [place], [place] [address]EDZ Coag (PPP) [Relative time]1.2 {INR}Invalid Interpretation CodeCleveland Clinic Mercy HospitalComment on above:Result Comment: INR results are specifically intended to assess patients stabilized on long-term Anticoagulation therapy suggested INR?s ?Less Intensive Anticoagulation? 2.0 ? 3.0 Conventional Range 3.0 ? 4.5Performed By: #### 1044915, 0032180, 8307349, 5636218, 47713274, 77138898, 58961606 ####[facility] [address] [place], [place] [address]GS Coag (PPP) [Time]14.1 second(s) High10.2-12.9[facility] HospitalComment on above:Performed By: #### 4880743, 2556862, 1142884, 9842346, 18398892, 10170961, 51770197 ####[facility] [address] [place], [place] [address]Wxsetvlx 0 Hr.on 73-30-2600Lcsecqcy I.cardiac [Mass/Vol]3.90 pg/mLLow10.10-27.10C[facility] HospitalComment on above:Result Comment: The 95% CI (Confidence Interval) PPV (Positive Predictive Value) for myocardial infarction in females is 38 pg/mL, in males 51 pg/mL. The results should be used in conjunction with cli nical conditions of myocardial infarction. (Access High Sensitivity Troponin I Instructions For Use, Randell Nicolaus, November 2017)Performed By: #### 1879842, 8080694, 9752305, 4036534, 89600107, 95424948, 27089248 ####[facility] [address] [place], [place] [address]KU Chest Single Viewon 94-58-4961LR Chest Single ViewExam Date/Time: 03/12/2021 09:37 EST Reason for Exam: [...] Jimmy Davis DO Transcribed by: ROBERT Technologist: [facility] Cleveland WesteGFRon 70-44-5236EZG/1.73 sq M.predicted among blacks MDRD (S/P/Bld) [Vol rate/Area] mL/min/{1.73_m2}Normal>=59C[facility] Mercy HospitalComment on above:Order Comment: Order added by Discern Expert.Result Comment: eGFR is race adjusted. AA=.Performed By: #### 0460435, 5374451, 3493665, 0475858, 59199960, 85075594, 46050792 ####[facility] [address] [place], [place] [address]AJU/1.73 sq M.predicted among non-blacks MDRD (S/P/Bld) [Vol rate/Area]mL/min/{1.73_m2}Normal>=59[facility] Comment on above:Order Comment: Order added by Discern Expert.Result Comment: Chronic kidney disease could be indicated at eGFR's of less than 60 mL/min/1.73m2. Kidney failure is indicated at less than 15 mL/min/1.73m2. Performed By: #### 4371253, 9684384, 5435102, 5032242, 86967261, 37706183, 55822561 ####[facility] [address] [place], [place] [address]Lnudboc for Treatmenton 23-55-2987Mmzhkfk for Treatment [id number]#1.00CD:127NoOhio State East HospitalPhysician Orderon 28-93-0351Kzfouaiti Order [id number]#1.00CD:127NoOhio State East HospitalXR Chest 2 Viewson 18-31-0917SZ Chest 2 ViewsExam Date/Time: 03/10/2021 15:07 EST Reason for Exam: [...] Jimmy Davis DO Transcribed by: ROBERT Technologist: ROBERTMount Carmel Health System Vital Signs Date TimeVital SignValuePerforming FfzakgnkhTqtopqeb63-93-8927 13:48-0400Body mass index (BMI) [Ratio]38.48 kg/g1Kgchy [employer] Work Phone: [facility] CenterNvvxybfjtq18-24-1314 13:48-0400Body kraqkw357.48 kgCorey Adrian [employer] Work Phone: [phone] include 234 beds at the [facility] Cancer CenterApfhttqoah45-03-5287 13:48-0400Diastolic blood yrsildku88 mm[Hg]AquilesLineRate Systemso [employer] Work Phone: [phone] include 234 beds at the [facility] CenterDmfccyoplc67-76-4677 13:48-0400Systolic blood tuxprzzm230 mm[Hg]AquilesComic Wonder Work Phone: [phone]-Counts include 234 beds at the [facility] CenterFcnqwxhhfj77-15-6830 14:35-0400Body mass index (BMI) [Ratio]39.58 kg/m2Flower [place] PAZ Work Phone: [facility] CenterRhzqrqkatu73-66-7554 14:35-0400Body qoqlmq286.8 kgFlower DE LA PAZ Work Phone: [facility] CenterEufvwnmamy18-35-5862 14:35-0400Diastolic blood fpqsusiv96 mm[Hg]Flower [place] [employer] Work Phone: [phone] [place] [address]-12-2025 14:35-0400Systolic blood aodssqum587 mm[Hg]Flower [place] PAZ Work Phone: [phone] [place], [place] [address]Xwqkwsyeve27-51-0865 11:25-0400Body mass index (BMI) [Ratio]42.61 kg/p3Fbvxo Adrian DO Work Phone: [phone] [place], [place] [address]Epidfhrgiz27-56-5587 11:25-0400Body kpitdo923 kg Aquiles Adrian DO Work Phone: [phone])[facility] [place], [place] [address]Qosaekmtbb25-10-6417 11:25-0400Diastolic blood rfvyhpni14 mm[Hg]Aquiles Adrian DO Work Phone: 1(377)[facility] [place], [place] [address]Fzxyfobdfd11-15-8236 11:25-0400Systolic blood pcoplasb513 mm[Hg]Aquiles Adrian DO Work Phone: 1(674)[facility] [place], [place] [address]Tbgsihboek01-41-1061 14:17-0400Body mass index (BMI) [Ratio]42.44 kg/o6Zauom Adrian DO Work Phone: 1(425)[address] [place], [place] [address]307-14-2025 14:17-0400Body zefzur949.48 kgCorey Adrian DO Work Phone: 1(363)[facility] [place], [place] [address]Kdmnqesjti44-47-7632 14:17-0400Diastolic blood ywynyqoz33 mm[Hg]Aquiles Adrian DO Work Phone: 1(936)[facility] [place], [place] [address]Wgjtlreuuy04-82-4792 14:17-0400Systolic blood azjrjjer835 mm[Hg]Aquiles Adrian DO Work Phone: 1(311)[facility] [place], [place] [address]Qmrnpbwmhs15-15-5335 15:07-0400Body mass index (BMI) [Ratio]42.67 kg/m4Ywlak Adrian DO Work Phone: 1(259)[address] [place], [place] 0[address]307-07-2025 15:07-0400Body umfbte598.18 kgCorey Adrian DO Work Phone: 1(556)[facility] [place], [place] [address]Lfnlddhkrf77-95-1638 15:07-0400Diastolic blood vswadeje42 mm[Hg]Aquiles Adrian DO Work Phone: 1(208)[address] [place], [place] 0[address]-07-2025 15:07-0400Systolic blood khmgqayj512 mm[Hg]Aquiles Adrian DO Work Phone: [phone] [place], [place] [address]Mdxjdjiobx82-39-5016 15:47-0400Body mass index (BMI) [Ratio]42.37 kg/m2Amy Shanna PA Work Phone: [phone]-Counts include 234 beds at the [facility] CenterWaqjulzlqs03-56-7331 15:47-0400Body qtpwyd129.25 kgAmy Shanna PA Work Phone: [phone] [place], [place] [address]Smmchtwwmj62-57-8899 15:47-0400Diastolic blood rsnpeuco92 mm[Hg]Flower Otero PA Work Phone: [phone])638-[address] [place], [place] [address]Uuyoovabdb87-58-7658 15:47-0400Systolic blood nsiannah215 mm[Hg]Flower Otero PA Work Phone: [phone] [place], [place] [address]Exoodjfakj57-67-8085 10:49-0400Body mass index (BMI) [Ratio]41.97 kg/u9Tlffi Adrian DO Work Phone: [phone])055-[address] [place], [place] [address]Qtriptiwtv53-32-9993 10:49-0400Body .06 kgCorey Adrian DO Work Phone: [phone] [place], [place] [address]Fnqdrgrtkg82-01-3267 10:49-0400Diastolic blood uduvejwn26 mm[Hg]Aquiles Adrian DO Work Phone: 1(582)537-[address] [place], [place] [address]Qxwzhnkjoj63-39-0211 10:49-0400Systolic blood kzhctuxt830 mm[Hg]Aquiles Adrian DO Work Phone: 1(885)208-[address] [place], [place] [address]Chpzfpxjdu09-93-9071 09:21-0400Body mass index (BMI) [Ratio]41.52 kg/m2Amy Shanna PA Work Phone: [phone])434-[address] [place], [place] [address]Kergopgbdk78-77-4666 09:21-0400Body iwlqrz969.7 kgAmy Shanna PA Work Phone: [phone]-Counts include 234 beds at the [facility] CenterOlvxpqxfdz40-14-7181 09:21-0400Diastolic blood kbilattl25 mm[Hg]Flower Otero PA Work Phone: 1(633)507-[address] [place], [place] [address]Ciorlyvyug76-69-9722 09:21-0400Systolic blood ipugidww296 mm[Hg]Flower [place] PAZ Work Phone: [phone] [place], [place] [address]Ynalvhwpul93-88-6582 09:31-0400Body mass index (BMI) [Ratio]41.21 kg/i5Kgaho Adrian DO Work Phone: [phone])176-[address] [place], [place] [address]Lwvycvhxva55-17-6970 09:31-0400Body ycmwch135.74 kgCorey Adrian DO Work Phone: 1(640)[facility] [place], [place] [address]Vrswrzyjyv99-27-2142 09:31-0400Diastolic blood lmzokhbg51 mm[Hg]Aquiles Adrian DO Work Phone: 1(416)[facility] [place], [place] [address]Tlblbxuloz40-76-3474 09:31-0400Systolic blood sywlbxdo445 mm[Hg]Aquiles Adrian DO Work Phone: 1(976)[facility] [place], [place] [address]Oqfuzzmcpp83-52-2156 14:49-0500Body mass index (BMI) [Ratio]40.58 kg/t9Zimty Adrian DO Work Phone: 1(186)[facility] [place], [place] [address]Jcgftarulv46-26-0102 14:49-0500Body wbieyp559.83 kgCorey Adrian DO Work Phone: 1(158)[facility] [place], [place] [address]Inobdnuvee94-13-9555 14:49-0500Diastolic blood qwlrrbug59 mm[Hg]Aquiles Adrian DO Work Phone: 1(646)[facility] [place], [place] [address]Rsghjzmgdu20-19-2992 14:49-0500Systolic blood zhddljyt577 mm[Hg]Aquiles Adrian DO Work Phone: 1(779)[address] [place], [place] [address]01-23-2025 11:56-0500Body mass index (BMI) [Ratio]40.28 kg/n9Vhwxz Adrian DO Work Phone: 1(400)[address] [place], [place] [address]01-23-2025 11:56-0500Body zabyjr948.93 kgCorey Adrian DO Work Phone: 1(093)[facility] [place], [place] [address]Myupfbojav43-90-2308 11:56-0500Diastolic blood hkrsrnei35 mm[Hg]Aquiles Adrian DO Work Phone: 1(419)[address] [place], [place] [address]01-23-2025 11:56-0500Systolic blood nbifdowx375 mm[Hg]Aquiles Adrian DO Work Phone: [facility] CenterXyijwehuis98-29-5605 14:26-0500Body mass index (BMI) [Ratio]41.77 kg/m2Flower [place] PAZ Work Phone: [facility] CenterCajwitvmbl50-05-0504 14:26-0500Body ijgvue480.46 kgFlower DE LA PAZ Work Phone: [phone]-Counts include 234 beds at the [facility]1[place] [address]Cjakcgizvq53-42-8649 14:26-0500Diastolic blood mm[Hg]Flower [place] PAZ Work Phone: [facility] CenterOhnqifwxhc40-00-4434 14:26-0500Systolic blood jcuazito051 mm[Hg]Flower DE [place] PAZ Work Phone: [phone]-Counts include 234 beds at the [facility] CenterPdjbaxmnem63-10-6841 08:50-0500Body mass index (BMI) [Ratio]41.8 kg/k8Yoxbh Adrian DO Work Phone: 1(627)928-[address] [place], [place] [address]Feftnqonbm11-41-4667 08:50-0500Body ijyqcs531.55 kgCorey Adrian DO Work Phone: [facility] CenterKtqcacwjsj05-41-8706 08:50-0500Diastolic blood clgthdex17 mm[Hg]Auqiles Adrian DO Work Phone: [facility] CenterIxrwvkgubd89-37-4760 08:50-0500Systolic blood ojcfqmjs616 mm[Hg]Aquiles Adrian DO Work Phone: [facility] Healthcare Encounters Encounter DateEncounter TypeCare ProviderFacilityStart: 12-24-2024 End: 99-59-9942Ltwnohioif care visitCorey Adrian DO Work Phone: noAK Lanie OBGYNComment on above:6 weeks follow-up ([facility])Start: 12-24-2024 End: 06-68-9328joxzwvfcggARWEC FAZIONot AvailableStart: 11-19-2024 End: 35-18-4235Ryrtvq Koki Otero BRAIN Work Phone: NOKP Lanie OBGYNStart: 11-19-2024 End: 68-56-6388Vmgvmo Koki Otero BRAIN Work Phone: [facility] [place] OBGYNStart: 11-19-2024 End: 67-93-2786Qbcbnt follow up visit related to original Kate Otero BRAIN Work Phone: NOLS Lanie OBGYNComment on above:Postoperative follow-upStart: 11-19-2024 End: 23-21-2905lmmquvcpglRTI RAMEYNot AvailableStart: 11-13-2024 End: 12-91-8023Lzsdejkrr Result EncounterCorey Adrian DO Work Phone: NOMS External Department UnsolicitedStart: 11-13-2024 End: 59-85-1661Ppnupmowz Result EncounterCorey Adrian DO Work Phone: NOMS External Department UnsolicitedStart: 11-12-2024 End: 25-09-9075Yxrzbvpjj Result EncounterCorey Adrian DO Work Phone: NOTF External Department UnsolicitedStart: 11-12-2024 End: 19-07-1424Kdzgfxnfk Result EncounterCorey Adrian DO Work Phone: NOFD External Department UnsolicitedStart: 11-05-2024 End: 95-11-6105Npyqhwcts Result EncounterCorey Adrian DO Work Phone: NOBG External Department UnsolicitedStart: 11-05-2024 End: 84-55-9898Ruvzhvqpl Result EncounterCorey Adrian DO Work Phone: NOMS External Department UnsolicitedStart: 11-04-2024 End: 42-59-0695Dlihra flowsheetCorey Adrian DO Work Phone: NOMS Lanie OBGYNStart: 11-04-2024 End: 97-53-5657Gmveue flowsheetCorey Adrian DO Work Phone: NOVP [place] OBGYNStart: 11-04-2024 End: 42-81-5557xeeqklmfpoQMPSD FAZIONot AvailableStart: 11-04-2024 End: 96-94-3287Llhevwxr flow sheetCorey Adrian DO Work Phone: NOYB [place] OBGYNComment on above:Third trimester ([facility]); 38 weeks gestation of ([facility]); HSV infection; Multigravida of advanced maternal age in third trimester ([facility])Start: 10-29-2024 End: 18-25-1868Cargdgkrb Result EncounterCorey Adrian DO Work Phone: NOEH External Department UnsolicitedStart: 10-29-2024 End: 39-27-6387Qjvmnqdsl Result EncounterCorey Adrian DO Work Phone: NOGT External Department UnsolicitedStart: 10-28-2024 End: 73-59-6006Uvasxt flowsheetCorey Adrian DO Work Phone: NORW BCP OBStart: 10-28-2024 End: 53-06-3110Flvhxj flowsheetCorey Adrian DO Work Phone: NOMS BCP OBStart: 10-28-2024 End: 40-51-0093Fqtuqliv flow sheetCorey Adrian DO Work Phone: NOBC BCP OBComment on above:Third trimester ([facility]); 37 weeks gestation of ([facility])Start: 10-28-2024 End: 64-96-4048psmojwhxcbWAQFX FAZIONot AvailableStart: 10-22-2024 End: 36-04-0059Eqryfddnz Result EncounterCorey Adrian DO Work Phone: NOMS External Department UnsolicitedStart: 10-22-2024 End: 60-82-5741Lvbmbnkdz Result EncounterCorey Adrian DO Work Phone: NOAT External Department UnsolicitedStart: 10-21-2024 End: 37-93-2117izthyqtjtiYMKTX FAZIONot AvailableStart: 10-21-2024 End: 38-39-0895Bztsrc flowsheetCorey Adrian DO Work Phone: NOQJ BCP OBStart: 10-21-2024 End: 10-99-5674Ufcath flowsheetCorey Adrian DO Work Phone: noms BCP OBStart: 10-21-2024 End: 68-84-0045Ehiftian flow sheetCorey Adrian DO Work Phone: noms BCP OBComment on above:Third trimester ([facility]); 36 weeks gestation of ([facility]); Multigravida of advanced maternal age in third trimester ([facility]); HSV infection; Excessive growth affecting management of , antepartum, single or unspecified fetus ([facility])Start: 10-16-2024 End: 38-69-3849Aljfsxthz Result EncounterCorey Adrian DO Work Phone: noms External Department UnsolicitedStart: 10-16-2024 End: 50-55-3138Afcapxjkh Result EncounterCorey Adrian DO Work Phone: noms External Department UnsolicitedStart: 10-14-2024 End: 11-41-0401Ypiguvdz flow sheetCorey Adrian DO Work Phone: noms BCP OBComment on above:35 weeks gestation of ([facility]); Third trimester ([facility]); Multigravida of advanced maternal age in third trimester ([facility]); Excessive growth affecting management of , antepartum, single or unspecified fetus ([facility]); Low iron; HSV infectionStart: 10-14-2024 End: 35-16-0797cwcqcyssanYUQNT FAZIONot AvailableStart: 10-09-2024 End: 16-49-3573Odhrlqjns Result EncounterCorey Adrina DO Work Phone: noms External Department UnsolicitedStart: 10-09-2024 End: 88-12-6648Ykcoxujzr Result EncounterCorey Adrian DO Work Phone: noms External Department UnsolicitedStart: 10-02-2024 End: 96-26-2819Fwgpwcocw Result EncounterCorey Adrian DO Work Phone: noms External Department UnsolicitedStart: 10-02-2024 End: 69-10-6699Vymtedgan Result EncounterCorey Adrian DO Work Phone: noMS External Department UnsolicitedStart: 09-30-2024 End: 50-12-7168Yhmonqbs flow sheetFlower [place] PAZ Work Phone: noMS BCP OBComment on above:Third trimester ([facility]); 33 weeks gestation of ([facility])Start: 09-30-2024 End: 47-76-2657ketffqtuhaOYC RAMEYNot AvailableStart: 09-30-2024 End: 40-69-3230Habbdb Koki DE LA PAZ Work Phone: noMS BCP OBStart: 09-30-2024 End: 30-75-8223Kgidqb Koki DE LA PAZ Work Phone: noms BCP OBStart: 09-25-2024 End: 96-97-3027Oimfnwpuh Result EncounterCorey Adrian DO Work Phone: noms External Department UnsolicitedStart: 09-25-2024 End: 22-46-1855Zkywfoiqt Result EncounterCorey Adrian DO Work Phone: noMS External Department UnsolicitedStart: 09-17-2024 End: 61-19-5364Fyaxpzga flow sheetCorey Adrian DO Work Phone: noMS BCP OBComment on above:31 weeks gestation of ; Third trimester ; Multigravida of advanced maternal age in third trimester; Excessive growth affecting management of , antepartum, single or unspecified fetusStart: 09-17-2024 End: 31-03-6865vwvzvbkuorBGHJV FAZIONot AvailableStart: 08-27-2024 End: 35-64-0405Yooaqn flowsheetFlower DE LA PAZ Work Phone: NOPQ BCP OBStart: 08-27-2024 End: 43-90-2955Xkojfi flowsnicoleFlower [place] PAZ Work Phone: NOMS BCP OBStart: 08-27-2024 End: 09-89-9888Aidfouptf Result EncounterFlower DE LA PAZ Work Phone: noms External Department UnsolicitedStart: 08-27-2024 End: 22-07-8891Haheypot flow chuckieFlower DE [place] PAZ Work Phone: NOMS BCP OBComment on above:Size of fetus inconsistent with dates in second trimester (Primary Dx); Third trimester ; 28 weeks gestation of pregnancyStart: 08-27-2024 End: 35-43-1495vezawrlfciOGA RAMEYNot AvailableStart: 08-08-2024 End: 29-94-5689xznocxwfxpFTNZK [facility] [place] PPGStart: 08-07-2024 End: 88-47-6514Mworl abstractingScanning Provider ExternalMaternal- Medicine at Mary Rutan Hospitaltart: 08-01-2024 End: 45-73-5745Yetlrlsx flow sheetCorey Adrian DO Work Phone: NOCJ BCP OBComment on above:Second trimester ; 24 weeks gestation of ; Multigravida of advanced maternal age in second trimesterStart: 08-01-2024 End: 94-57-7583wntvzgzsfoGNPKZ FAZIONot AvailableStart: 07-01-2024 End: 10-08-7295rbwixcrercXIO RAMEYNot AvailableStart: 07-01-2024 End: 34-56-4160fkyuyxvvqsGTAUX FAZIONot AvailableStart: 06-03-2024 End: 30-68-8547qxridznvfwRHCVE FAZIONot AvailableStart: 06-03-2024 End: 62-21-7635Pwtyawqq flow sheetCorey Adrian DO Work Phone: noms BCP OBComment on above:Second trimester ; 16 weeks gestation of ; STD exposure; Vaginal discharge; Screening, , for anatomic survey; Antepartum multigravida of advanced maternal ageStart: 06-03-2024 End: 33-09-1759Aeeyzl flowsheetCorey Adrian DO Work Phone: NOMS BCP OBStart: 06-03-2024 End: 69-18-4194Cauoow flowsheetCorey Adrian DO Work Phone: NOMS BCP OBStart: 06-03-2024 End: 24-89-9799Wgcgeszp Result EncounterCorey Adrian DO Work Phone: noMS External Department UnsolicitedStart: 05-02-2024 End: 34-65-6657Zrkavs flowsheetCorey Adrian DO Work Phone: NOMS BCP OBStart: 05-02-2024 End: 32-85-4188Tojjbc flowsheetCorey Adrian DO Work Phone: noMS BCP OBStart: 05-02-2024 End: 87-74-8553Nrxwidhb flow sheetCorey Adrian DO Work Phone: [facility] OBComment on above:First trimester ; 11 weeks gestation of pregnancyStart: 05-02-2024 End: 35-16-7075pclgorccycGGNXK FAZIONot AvailableStart: 04-11-2024 End: 65-18-5987ciptejlbvuHqegu FazioFacility:[facility] Start: 04-11-2024 End: 64-54-9349Nbxpblkx ReferredCorey Adrian DO Work Phone: [facility] Path Spec [place] HospStart: 04-11-2024 End: 95-44-3239Mwdpaitew Result EncounterCorey Adrian DO Work Phone: noMS External Department UnsolicitedStart: 04-11-2024 End: 62-16-6080Cduekkyei Result EncounterCorey Adrian DO Work Phone: noms External Department UnsolicitedStart: 04-11-2024 End: 11-77-0165miuvybufmdGEJIQ FAZIONot AvailableStart: 03-23-2024 End: 93-69-9240Xalpyiaaq Result EncounterCorey Adrian DO Work Phone: NOMS External Department UnsolicitedStart: 03-23-2024 End: 10-12-3864Lxavptzul Result EncounterCorey Adrian DO Work Phone: NOMS External Department UnsolicitedStart: 03-22-2024 End: 13-16-2150Eopherohf Result EncounterCorey Adrian DO Work Phone: NOMS External Department UnsolicitedStart: 03-22-2024 End: 51-81-7332Sdvdynqqt Result EncounterCorey Adrian DO Work Phone: NOMS External Department UnsolicitedStart: 03-20-2024 End: 01-53-1221Apxyjhgte Result EncounterCorey Adrian DO Work Phone: NOMS External Department UnsolicitedStart: 03-20-2024 End: 54-03-6808Dpeadlgas Result EncounterCorey Adrian DO Work Phone: NOMS External Department UnsolicitedStart: 03-18-2024 End: 29-71-1225Qtxkdngov Result EncounterCorey Adrian DO Work Phone: NOUX External Department UnsolicitedStart: 03-18-2024 End: 92-61-0955Dwomvnfep Result EncounterCorey Adrian DO Work Phone: NOMS External Department UnsolicitedStart: 03-15-2024 End: 03-99-9923Utogcchba Result EncounterCorey Adrian DO Work Phone: NOMS External Department UnsolicitedStart: 03-15-2024 End: 04-67-3004Krnrboyrv Result EncounterCorey Adrian DO Work Phone: NOMS External Department UnsolicitedStart: 03-13-2024 End: 06-68-1940Hazpmkmpe Result EncounterCorey Adrian DO Work Phone: noms External Department UnsolicitedStart: 03-13-2024 End: 73-71-8420Rusoyslrm Result EncounterCorey Adrian DO Work Phone: noms External Department UnsolicitedStart: 03-11-2024 End: 82-36-8640Igavmhuxg Result EncounterCorey Adrian DO Work Phone: noms External Department UnsolicitedStart: 03-11-2024 End: 49-16-1338Kwsfqrfrg Result EncounterCorey Adrian DO Work Phone: noms External Department UnsolicitedStart: 03-02-2024 End: 85-22-8546Fpiurvxfy Result EncounterCorey Adrian DO Work Phone: noms External Department UnsolicitedStart: 03-02-2024 End: 62-93-1482Mlcwvlukb Result EncounterCorey Adrian DO Work Phone: noms External Department UnsolicitedStart: 02-15-2024 End: 43-04-3835Sztwur flowsheetFlower DE LA PAZ Work Phone: noms BCP OBStart: 02-15-2024 End: 86-76-9789Jhzwhi flowsheetFlower DE LA PAZ Work Phone: NOOL BCP OBStart: 02-15-2024 End: 18-04-3046Toxpsvdyh Result EncounterFlower DE LA PAZ Work Phone: NOMS External Department UnsolicitedStart: 02-15-2024 End: 48-93-8995Hiahozb encounter procedureFlower DE LA PAZ Work Phone: [facility] Work Phone: Start: 02-15-2024 End: 59-80-3179Pbbcbzqu preventive med est patient 18-39 yrsFlower DE LA PAZ Work Phone: NOLE BCP OBComment on above:Well woman exam with routine gynecological examStart: 02-15-2024 End: 58-80-4766fsgyiokdvgZZT RAMEYNot AvailableStart: 02-12-2024 End: 77-97-7789Beywzq flowsheetCorey Adrian DO Work Phone: NOMS BCP OBStart: 02-12-2024 End: 53-35-1768Cdsqio flowsheetCorey Adrian DO Work Phone: NOMS BCP OBStart: 02-12-2024 End: 28-98-8934Usyyos outpatient visit 15 minutesCorey Adrian DO Work Phone: NOMS BCP OBComment on above:AnovulationStart: 02-12-2024 End: 01-18-1076ayhgbzhatkLBPUP FAZIONot AvailableStart: 84-70-4791xafcefgxqmEX AQUILES ADRIAN .Facility:L1Fjedr: 08-22-2022 End: 34-92-4280wqyccambslBO AQUILES ADRIAN .Facility:M8Iluri: 05-27-2022 End: 91-55-9333gqikvvwigwCC AQUILES ADRIAN .Facility:W1Ezpwv: 05-22-2022 End: 04-38-1483gmshmzaybaWLHHGO LA .Facility:I8Ltaoj: 05-17-2022 End: 96-57-9354ulvbjaefyfWH AQUILES ADRIAN .Facility:R3Ugtca: 05-13-2022 End: 76-84-1758mikqcbzdfaEI AQUILES ADRIAN .Facility:V1Pbaef: 04-28-2022 End: 69-73-8424licnqzozqkUS AQUILES ADRIAN .Facility:N5Kbgas: 04-26-2022 End: 43-81-9795sgebebugrpGF AQUILES ADRIAN .Facility:D3Hqjiz: 04-15-2022 End: 05-88-3888aehcjhpdveRO AQUILES ADRIAN .Facility:D4Raxkw: 03-14-2022 End: 43-24-3748trnukcmtxcNC AQUILES ADRIAN .Facility:J4Nbzuf: 02-14-2022 End: 84-44-3347iznqcjhbhxBH AQUILES ADRIAN .Facility:[address] DateProcedureProcedure DetailPerforming ClinicianStart: 79-79-0052ROV CBC WITH AUTO DIFFCorey Adrian DO Work Phone: Start: 19-51-7830GXH CBC WITH AUTO DIFFCorey Adrian DO Work Phone: Start: 81-49-2881UD OB BPP W NON-STRESSCorey Adrian DO Work Phone: Start: 85-64-6711Xtwby dip stick/tablet rgnt non-auto w/o micrscpCorey Adrian DO Work Phone: Start: 76-80-4146YR OB BPP W NON-STRESSCorey Adrian DO Work Phone: Start: 09-22-5704Hlmxb dip stick/tablet rgnt non-auto w/o micrscpCorey Adrian DO Work Phone: Start: 82-27-2145BE OB BPP W NON-STRESSCorey Adrian DO Work Phone: Start: 91-60-2306Adwfb dip stick/tablet rgnt non-auto w/o micrscpCorey Adrian DO Work Phone: Start: 20-27-6547CL OB BPP W NON-STRESSCorey Adrian DO Work Phone: Start: 86-38-7138Fzsnc dip stick/tablet rgnt non-auto w/o micrscpCorey Adrian DO Work Phone: Start: 07-36-2705ST OB BPP W NON-STRESSCorey Adrian DO Work Phone: Start: 80-25-2693KZ OB BPP W NON-STRESSCorey Adrian DO Work Phone: Start: 01-15-7622Huxqf dip stick/tablet rgnt non-auto w/o micrscpAmy Shanna PA Work Phone: Start: 49-72-3257BP OB BPP W NON-STRESSCorey Adrian DO Work Phone: Start: 48-37-3127Acdtf dip stick/tablet rgnt non-auto w/o micrscpCorey Adrian DO Work Phone: Start: 30-15-9910WMJ HEMOGLOBIN A1CAmy Shanna [place] Work Phone: Start: 24-88-4969Azxxw dip stick/tablet rgnt non-auto w/o micrscpAmy Shanna [place] Work Phone: Start: 74-05-4707TLOJZFKSX VAGINITIS (HTRX)Aquiles Adrian DO Work Phone: Start: 27-40-3495Bpcxp dip stick/tablet rgnt non-auto w/o micrscpCorey Adrian DO Work Phone: Start: 79-39-3463Pcnfm dip stick/tablet rgnt non-auto w/o micrscpAmy Shanna [place] Work Phone: Start: 97-65-7839UGI CBC WITH AUTO DIFFCorey Adrian DO Work Phone: Start: 13-82-0817KFL PREG QUANT HCGCorey Adrian DO Work Phone: Start: 77-50-6864FBZ PREG QUANT HCGCorey Adrian DO Work Phone: Start: 49-62-3086WBX PREG QUANT HCGCorey Adrian DO Work Phone: Start: 73-23-8650SVK PREG QUANT HCGCorey Adrian DO Work Phone: Start: 11-44-9804SOQ PREG QUANT HCGCorey Adrian DO Work Phone: Start: 95-32-1389IIE PREG QUANT HCGCorey Adrian DO Work Phone: Start: 57-87-8747DIW PREG QUANT HCGCorey Adrian DO Work Phone: Start: 29-88-6846BYD PROGESTERONECorey Adrian DO Work Phone: Start: 21-65-4987DBA,APTIMA HPV,AGE GDLNAmy Broadwater PA Work Phone: Plan of Treatment DateCare ActivityDetailAuthorStart: 02-19-2025 End: 86-44-2286Nsekybf encounter bsaseaejg00/12/2025 11:00 AM EST Procedure Visit [facility] [address] [place], [id number] Aquiles Campbell, DO [address] [place] [address] NOMS Lanie OBGYNStart: 12-24-2024 End: 95-84-8719znirbdbmkf63/16/2025 1:20 PM EDT Visit [facility] [address] [place], [id number] Aquiles Campbell, DO [address] [address] NOMS Lanie OBGYNStart: 87-02-9611Xlrzfslpt vaccination Influenza VaccineProMedica Cincinnati Va Medical Center SystemStart: 11-19-2024 End: 79-46-6517Nzsonrn encounter procedureNOMS Lanie OBGYNComment on above: ArrivedStart: 11-04-2024 End: 84-04-3761Yggfagi encounter toiqknjed09/28/2025 9:30 AM EDT Routine NOMS BCP OB [address] [place] [address] Aquiles Campbell, DO [address] [address] NOMS BCP OBStart: 10-28-2024 End: 10-11-6073Evjuzww encounter procedureNOMS BCP OBComment on above:Arrived Start: 10-21-2024 End: 05-39-3442BWJUVYF, GROUP B STREP WITH SUSCEPTIBLITYCULTURE, GROUP B STREP WITH SUSCEPTIBLITY Lab Routine Third trimester ([facility]) Expected: 10/21/2024, Expires: 10/21/2025[facility] Work Phone: comment on above:Expected: 10/21/2024, Expires: 10/21/2025Start: 10-21-2024 End: 50-68-7525Yavropt encounter zzkbsqpie07/14/2025 2:00 PM EDT Routine [facility]S BCP OB [address] [facility] [place] [address] Aquiles Campbell, DO [address] [place], [place] [id number] NOMS BCP OBStart: 10-14-2024 End: 39-52-5997Ktjxgql encounter kechspass54/07/2025 2:30 PM EDT Routine [facility] BCP OB [address] [facility] [place] [place] [address] Aquiles Campbell, DO [address] [place] [address] NOMS BCP OBStart: 10-14-2024 End: 42-01-8915Jrgjpxvgnozn / ancillary services brcmnimjhl62/07/2025 2:00 PM EDT Ancillary Procedure [facility] [address] [facility] [place] [address] NOMS BCP OBStart: 09-30-2024 End: 08-10-2283Ybvecqj encounter procedureNOMS BCP OBComment on above:Arrived Start: 09-17-2024 End: 14-65-6022YX biophysical profile w non stress testUS biophysical profile w non stress test Imaging Routine Multigravida of advanced maternal age in third trimester Excessive growth affecting management of , antepartum, single orunspecified fetus Expected: 09/17/2024 (Approximate), Expires: 03/19/2025[facility] Work Phone: comment on above:Expected: 09/17/2024 (Approximate), Expires: 03/19/2025Start: 09-17-2024 End: 23-40-1388Yysxkla encounter nwgambgnd48/10/2025 10:20 AM EDT Routine [facility] [address] [facility] [place] [address] Aquiles Campbell, DO [facility] [place], [place] [id number] NOMS BCP OBStart: 09-17-2024 End: 16-79-3697Kmeuprlzynks / ancillary services opbqpdipxx06/10/2025 9:30 AM EDT Ancillary Procedure [facility] [address] [facility] [place] [address] NOMS BCP OBStart: 08-27-2024 End: 40-55-7631ZSG W Auto Differential panel - BloodCBC and differential Lab Routine Third trimester 28 weeks gestation of Expected: 08/27/2024 (Approximate), Expires: 08/27/2025[facility] Work Phone: comment on above:Expected: 08/27/2024 (Approximate), Expires: 08/27/2025Start: 08-27-2024 End: 34-84-1771PO for pregnancyUS OB follow up transabdominal approach Imaging Routine Size of fetus inconsistent with dates in second trimester Expected: 08/27/2024, Expires: 12/28/2024[facility] HealthcareComment on above:Expected: 08/27/2024, Expires: 12/28/2024Start: 08-27-2024 End: 78-39-4908Mkkiuma encounter procedureNOMS BCP OBComment on above:Arrived Start: 08-08-2024 End: 63-81-7487Gjnlrqm encounter lsgxppvyi24/01/2025 8:00 AM EDT Appointment Maternal Medicine [place] [address] [facility] [address] [place] [address] Xodqujdz Medicine Port Clinpascack valley medical centerStart: 07-01-2024 End: 64-33-3360Hjvnqkn encounter yiyicmalc73/24/2025 9:40 AM EDT Routine [facility] BCP OB [address] [place] [address] Flower Otero, [place] [address] [place] [address] [place] [address] NOMS BCP OBStart: 07-01-2024 End: 04-67-6222Fwrowqgjfzvs / ancillary services hxsuhnvbnk81/24/2025 8:30 AM EDT Ancillary Procedure [facility] BCP OB [address] [place] [address] [phone] BCP OBStart: 06-11-2024 End: 49-18-5192Evlkyob encounter nzioyqxzb76/04/2025 8:40 AM EST Office Visit [facility] OB [address] [facility] [place] [place] [address] Aquiles Campbell, [address] [place] [address] NOMS BCP OBStart: 06-03-2024 End: 88-29-9008Ostgfri encounter fkzighlkm52/24/2025 2:20 PM EST Routine NOMS [facility] OB [address] [facility] [place] [place] [address] Aquiles Campbell, [address] [place] [address] NOMS BCP OBStart: 06-03-2024 End: 03-28-1407Fanrk fetoprotein, maternalAlpha fetoprotein, maternal Lab Routine 16 weeks gestation of Expected: 06/03/2024 (Approximate), Expires: 08/01/2024[facility] HealthcareComment on above:Expected: 06/03/2024 (Approximate), Expires: 08/01/2024Start: 06-03-2024 End: 35-64-0682AE for pregnancyUS OB 14+ weeks anatomy scan Imaging Routine Screening, , for anatomic survey Expected: 06/03/2024, Expires: 06/03/2025[facility] HealthcareComment on above:Expected: 06/03/2024, Expires: 06/03/2025Start: 05-02-2024 End: 97-60-4551Hzrsajn encounter procedureNOKAISER PERMANENTE MEDICAL [facility]ENTER OBComment on above:Arrived Start: 05-40-7677Tovhx cultureWyandot Memorial Hospitaltart: 04-11-2024 Bacteria identified in Urine by CultureUrine CultureWyandot Memorial Hospitaltart: 04-11-2024 End: 44-89-0828cvcklpxfcp03/02/2025 1:00 PM EST Initial [facility] [address] [facility] [place] [address] EVIO BCP OBStart: 04-11-2024 End: 58-65-6185Zgyxfypnswwm / ancillary services vrrwedwgdl01/02/2025 12:30 PM EST Ancillary Procedure NOMS [facility] OB [address] [place], [place] [address] HTQG BCP OBStart: 02-15-2024 End: 98-29-0396Mibyrtn encounter procedureNOMS [facility] OBComment on above:Arrived Start: 02-12-2024 End: 92-58-5199Hedcjpb encounter /04/2024 8:50 AM EST Office Visit NOMS [facility] OB [address] [place] [address] Aquiles Campbell, DO [address] [place] [address] ArrivedNOKAISER PERMANENTE MEDICAL CENTER OBComment on above:ArrivedStart: 46-02-3233Mtgtzlkjo for malignant neoplasm of cervixPap SmearProAkron Children'S Hospital SystemStart: 79-51-8073GExA,Tdap and Td Vaccines (1 - Tdap)DTaP,Tdap and Td Vaccines (1 - Tdap)[facility] SystemStart: 63-61-2622Ipzai BMI Screening Adult BMI ScreeningMercy Health St. [facility] SystemStart: 68-42-5420Jgmlgnbzxz Screening Depression ScreeningMercy Health St. [facility] SystemStart: 69-23-7638Feqqioo Screening Tobacco ScreeningAvita Health SystemCHLAMYDIA TRACHOMATIS (GENITO/STI) CHLAMYDIA TRACHOMATIS (GENITO/STI) Lab Routine STD exposure Ordered: 06/03/2024 NOMS HealthcareComment on above:Ordered: 06/03/2024ytology Cervical or vaginal smear or scraping studyPap Smear Pathology and Cytology Routine Well woman exam with routine gynecological exam Ordered: 02/15/2024[facility] Work Phone: comment on above:Ordered: 02/15/2024Hemoglobin A1c/Hemoglobin.total in BloodHemoglobin A1c Lab Routine Third trimester 28 weeks gestation of Size of fetus inconsistent with dates in second trimester Ordered: 08/27/2024[facility] HealthcareComment on above:Ordered: 08/27/2024Human papilloma virus DNA [Presence] in Unspecified specimen by Probe with amplificationHPV DNA probe, amplified Microbiology Routine Well woman exam with routine gynecological exam Ordered: 02/15/2024[facility] HealthcareComment on above:Ordered: 02/15/2024Neisseria gonorrhoeae DNA [Presence] in Unspecified specimen by LYNNETTE with probe detectionNeisseria gonorrhea DNA probe, direct Lab Routine STD exposure Ordered: 06/03/2024[facility] HealthcareComment on above:Ordered: 06/03/2024SURESWAB(R) ADVANCED VAGINITIS PLUS, TMASURESWAB(R) ADVANCED VAGINITIS PLUS, TMA Pathology and Cytology Routine STD exposure Ordered: 2024[facility] Work Phone: comment on above:Ordered: 06/03/2024 Payers DatePayer CategoryPayerPolicy [id number] Cross Blue Shield Managed Care - PPOANTHEM Member Subscriber Plan / Payer (Effective 2024-Present) Name: Katherine Ed Relation to Subscriber: Self Name: Ed Murphy PayerID: [id number] ([place]) Type: Not on file Address: [address] [id number] 06-23-0474Ahpi [facility]1.2.840.463682.1.13.693.2.7.9.538832.316906.315 [id number] 2.16.840.1.797167.3.579.2.38570-18-5876Yhcwllj7644935 2.16.840.1.111226.3.579.2.53153-96-6746Uaygvog2994603 2.16.840.1.063156.3.579.2.46351-31-7588Gdfzmvy6690215 2.16.840.1.380309.3.579.2.42668-67-9270Nxrpxwn2518707 2.16.840.1.361191.3.579.2.26140-11-7398Vkfssyk8663773 2.16.840.1.330699.3.579.2.20003-54-4664Ctduvyo3930640 2.16.840.1.182720.3.579.2.54033-07-7731Gohnydp1665064 2.16.840.1.539850.3.579.2.22693-00-0304Gjgoetu2319462 2.16.840.1.431393.3.579.2.48234-70-1386Befdgyi1753277 2.16.840.1.763170.3.579.2.63358-16-1468Lgpzird9838263 2.16.840.1.279424.3.579.2.81488-01-7421Rnwvmrk5277972 2.16.840.1.035074.3.579.2.37611-72-8235Dwhghry388199527 2.16.840.1.219139.3.579.2.174988-66-4380Jtjipiz23475032 2.840.1.002000.3.579.2.532200-24-8796Odikngm72474270 2..1.805105.3.579.2.579736-91-3972Kvgfndi68781733 2.0.1.518060.3.579.2.346463-83-4966Oaxndrd71421570 2..1.620062.3.579.2.006706-30-6615Tsrghih38213587 2..1.000793.3.579.2.114319-09-6468Lsfsxwg33778004 2.0.1.484176.3.579.2.925570-80-8741Mmykfvu61495934 2..1.574003.3.579.2.501328-96-1033Btcbzmw87548983 2..1.227421.3.579.2.939247-50-3252Wxmrhig69238700 2..1.946182.3.579.2.903328-53-2578Peltigw30376072 2..1.225574.3.579.2.984349-24-4187Lzgmcve1690552 2..1.449232.3.579.2.125625-24-2486Fbrglwq7008755 2.0.1.698520.3.579.2.841422-92-5660Ojpqcrz6109024 2..1.985216.3.579.2.029534-18-7497Axfrxou8637160 2.840.1.159277.3.579.2.118191-58-7263Dsoihyj1478019 2.840.1.523265.3.579.2.742585-73-5503Qqtxudq5587990 2..840.1.322025.3.579.2.162658-49-9036Tcsxviy4019975 2.16.840.1.724660.3.579.2.827553-28-3423Vdzehpd3918149 2..0.1.641454.3.579.2.879023-03-3564Auyzaym0015800 2..840.1.595425.3.579.2.582888-90-7541Zspkkyf9076124 2..0.1.107433.3.579.2.220594-92-8946Evntzfu6002760 2.0.1.694413.3.579.2.249830-25-4621Remkbvu Health Rtadbghuk385619177Gdxhrjw [id number] 2.0.1.532889.3.579.2.531UnknownAnthem /[id number] 3b3b6f2v-4ux9-15j0-719c-07b3kv9q75d6 Social History DateTypeDetailFacilityStart: 12-01-2022 End: 68-20-4309Iohmffw smoking status NHISNever smoked tobaccoNOMS Healthcare Start: 08-24-2023 End: 41-80-7833Kaafcbwlr beverage intakeLifetime non-drinker (finding)[facility] HealthcareStart: 12-01-2022 End: 85-28-3505Hpzdatk of Social functionNOMS HealthcareStart: 12-01-2022 End: 91-86-2240Ayzdyxe use panelNOMS HealthcareStart: 54-66-7203Plubcwurb17QDER HealthcareStart: 73-87-9316Bweibjz CommentCaffeine intake: noneNOMS Healthcare Start: 54-34-7131Ezn assigned at birthNot on fileNOMS HealthcareStart: 78-50-5474QqanatashFLPQ HealthcareTobacco smoking status NHISUnknown if ever smokedAcmc Healthcare System [facility] Work Phone: Start: 04-12-2024 End: 26-03-4959HbvHjzuit (finding)[facility] Hospitaltart: 23-02-9445Csf Assigned At BirthRiverview Health Institutetart: 73-00-0106Ckibiyi use and exposureSmokeless tobacco non-userProMedica [facility] Center System Medical Equipment Procedure CodeEquipment CodeEquipment Original TextEquipment IdentifierDates1 strip by In Vitro route Daily Use in the morning prior to breakfast, 1 hour after each meal for atotal of 4times daily.[id number]: 07-25-2024 End: each by In Vitro route Daily Use to check FSBS four times daily [id number]: 07-25-2024 End: 08-27-2024 Clinical Notes 02-12-2024 to 12-24-2024 Note Date & NevjJrmjOlprytfi37-56-6039 History of Present illness Narrative* Alexus Aggie, MASK LAYOUT DESIGNER - 12/24/2024 1:20 PM EDT Reason for Appointment: Patient ID: Ed Murphy is a 34 y.o. female who presents for Follow-up Patient presents today for Post Follow Up appointment. MEDICATIONS No current outpatient medications ALLERGIES Allergies [...] Diagnosis Date Noted Bleeding in early ([facility]) 12/02/2022 31 weeks gestation of ([facility]) 09/17/2024 Third trimester ([facility]) 09/17/2024 Multigravida of advanced maternal age in third trimester ([facility]) 09/17/2024 Past Medical History: Diagnosis Date Frequent UTI Herpes History of chlamydia 2007 History of depression 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 Personal history of other medical treatment ([facility]) [facility] teeth removed HISTORY PAST MEDICAL HISTORY SOCIAL HISTORY Past Medical History: Diagnosis Date Bleeding in early ([facility]) 12/02/2022 Frequent UTI Herpes History of chlamydia 2007 History of depression no meds 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 Exam conducted with a program development specialist present. Vitals: Estimated body mass index is 38.48 kg/m as calculated from the following: Height as of 08/22/22: 5' 8.5 . Weight as of this encounter: 256 lb 12.8 oz. BP: 100/70 No LMP recorded. ASSESSMENT & PLAN ICD-10-CM 1. 6 weeks follow-up ([facility]) Z39.2 Post Follow Up: Patient is doing well but has complaints of none. Patient presents today for 6 week visit. Patient is s/p delivery. Patient states depression but denies suicidal and homicidal ideations. All options were discussed with the patient regarding control and patient desires no control at this time. Follow Up: Patient is to return for annual unless needed otherwise. Documented by Alexus Marcial LPN on behalf of: Aquiles Campbell DO documented in this encounterAlvin J. Siteman Cancer [id number] History of Present illness Narrative* BRAIN Martienz - 11/19/2024 1:30 PM EDT Reason for Appointment: Patient ID: Ed Murphy is a 33 y.o. female who presents for Post-op Visit Patient presents today for Post Follow Up appointment. and 1 Week Post Op Follow Up appointment. MEDICATIONS Current Outpatient Medications Medication Instructions iron polysaccharides (ProFe) 391.3 (180 Fe) MG capsule Multiple Vitamin (Multivitamin Adult) tablet Orally [id number] ( 1 + IRON PO) ALLERGIES Allergies [...] Date Noted Bleeding in early ([facility]) 12/02/2022 31 weeks gestation of ([facility]) 09/17/2024 Third trimester ([facility]) 09/17/2024 Multigravida of advanced maternal age in third trimester ([facility]) 09/17/2024 Past Medical History: Diagnosis Date Frequent UTI Herpes History of chlamydia 2008 History of depression 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 Personal history of other medical treatment ([facility]) [facility] teeth [facility] HISTORY PAST MEDICAL HISTORY SOCIAL HISTORY Past Medical History: Diagnosis Date Bleeding in early ([facility]) 12/02/2022 Frequent UTI Herpes History of chlamydia 2008 History of depression no meds 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 Personal history of other medical treatment Frenectomy ([facility]) x2 [facility] teeth removed Social History Tobacco Use Smoking [...] Past Surgical History: Procedure Laterality Date SECTION, CLASSIC 11/12/2024 SECTION, LOW TRANSVERSE COLPOSCOPY 2010 GALLBLADDER SURGERY [...] tenderness. There is no guarding or rebound. Comments: Incision healing well Musculoskeletal: General: No swelling. Normal range of motion. Right lower leg: No edema. Left lower leg: No edema. Neurological: Mental Status: She is alert and oriented to person, place, and time. Skin: General: Skin is warm and dry. Psychiatric: Mood and Affect: Mood normal. Behavior: Behavior normal. Vitals and nursing note reviewed. Exam conducted with a program development specialist present. Vitals: Estimated body mass index is 39.58 kg/m as calculated from the following: Height as of 08/22/22: 5' 8.5 . Weight as of this encounter: 264 lb 1.9 oz. BP: 120/82 No LMP recorded. ASSESSMENT & PLAN ICD-10-CM 1. Postoperative follow-up Z09 Patient presents today for a one week postop section check. Patient is doing well with minor complaints of pain. Incision has been noted as healing well with no signs and symptoms of infection. Follow Up: Patient is to return in 5 weeks for 6 week evaluation. Documented by BRAIN Martinez on behalf of: BRAIN Martinez documented in this encounterAlvin J. Siteman Cancer [id number] History of Present illness Narrative* Svetlana Simmons NP - 11/04/2024 9:30 AM EDT Reason for Appointment: Patient ID: Ed Murphy is a 33 y.o. female who presents for Routine Visit Patient presents today for Return OB appointment. MEDICATIONS Current Outpatient Medications Medication Instructions iron polysaccharides (ProFe) 391.3 (180 Fe) MG capsule Multiple Vitamin (Multivitamin Adult) tablet Orally Hlccnsnd-Pkt-Yn-FA ( 1 + IRON PO) progesterone 200 [...] 12/02/2022 31 weeks gestation of ([facility]) 09/17/2024 Third trimester ([facility]) 09/17/2024 Multigravida of advanced maternal age in third trimester ([facility]) 09/17/2024 Resolved Ambulatory Problems Diagnosis Date Noted Bleeding in early ([facility]) 12/02/2022 Past Medical History: Diagnosis Date Frequent UTI Herpes History of chlamydia 2008 History of depression 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 Personal history of other medical treatment ([facility]) [facility] teeth [facility] HISTORY PAST MEDICAL HISTORY SOCIAL HISTORY Past Medical History: Diagnosis Date Bleeding in early ([facility]) 12/02/2022 Frequent UTI Herpes History of chlamydia 2007 History of depression no meds 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 Exam conducted with a program development specialist present. Vitals: Estimated body mass index is 42.61 kg/m as calculated from the following: Height as of 08/22/22: 5' 8.5 . Weight as of 10/28/24: 284 lb 6.4 oz. BP: Patient's last menstrual period was 02/11/2024. ASSESSMENT & PLAN ICD-10-CM 1. Third trimester ([facility]) Z34.93 POCT urinalysis dipstick manually resulted 2. 38 weeks gestation of ([facility]) Z3A.38 3. HSV infection B00.9 4. Multigravida of advanced maternal age in third trimester ([facility]) O09.523 Return OB: Patient [...] of: Aquiles Campbell DO documented in this encounterAlvin J. Siteman Cancer [id number] History of Present illness Narrative* Svetlana Simmons NP - 10/28/2024 11:20 AM EDT Reason for Appointment: Patient ID: Ed Murphy is a 33 y.o. female who presents for Routine Visit Patient presents today for Return OB appointment. MEDICATIONS Current Outpatient Medications Medication Instructions Xbnbjrni-Vzf-Hn-FA ( 1 + IRON PO) valACYclovir (VALTREX) [...] 12/02/2022 31 weeks gestation of ([facility]) 09/17/2024 Third trimester ([facility]) 09/17/2024 Multigravida of advanced maternal age in third trimester ([facility]) 09/17/2024 Resolved Ambulatory Problems Diagnosis Date Noted Bleeding in early ([facility]) 12/02/2022 Past Medical History: Diagnosis Date Frequent UTI Herpes History of chlamydia 2008 History of depression 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 Personal history of other medical treatment ([facility]) [facility] teeth removed HISTORY PAST MEDICAL HISTORY SOCIAL HISTORY Past Medical History: Diagnosis Date Bleeding in early ([facility]) 12/02/2022 Frequent UTI Herpes History of chlamydia 2007 History of depression no meds 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 Exam conducted with a program development specialist present. Vitals: Estimated body mass index is 42.61 kg/m as calculated from the following: Height as of 08/22/22: 5' 8.5 . Weight as of this encounter: 284 lb 6.4 oz. BP: 108/70 Patient's last menstrual period was 02/11/2024. ASSESSMENT & PLAN ICD-10-CM 1. Third trimester ([facility]) Z34.93 POCT urinalysis dipstick manually resulted 2. 37 weeks gestation of ([facility]) Z3A.37 POCT urinalysis dipstick manually resulted Return [...] of: Aquiles Campbell DO documented in this encounterAlvin J. Siteman Cancer [id number] History of Present illness Narrative* Daniela Candelaria LPN - 10/21/2024 2:00 PM EDT Reason for Appointment: Patient ID: Ed Murphy is a 33 y.o. female who presents for Routine Visit Patient presents today for Return OB appointment. MEDICATIONS Current Outpatient Medications Medication Instructions Wayigjel-Vxr-Qq-FA ( 1 + IRON PO) valACYclovir (VALTREX) [...] 12/02/2022 31 weeks gestation of ([facility]) 09/17/2024 Third trimester ([facility]) 09/17/2024 Multigravida of advanced maternal age in third trimester ([facility]) 09/17/2024 Resolved Ambulatory Problems Diagnosis Date Noted Bleeding in early ([facility]) 12/02/2022 Past Medical History: Diagnosis Date Frequent UTI Herpes History of chlamydia 2008 History of depression 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 2011 Personal history of other medical treatment ([facility]) [facility] teeth removed HISTORY PAST MEDICAL HISTORY SOCIAL HISTORY Past Medical History: Diagnosis Date Bleeding in early ([facility]) 12/02/2022 Frequent UTI Herpes History of chlamydia 2008 History of depression no meds 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 2011 Personal history of other medical treatment Frenectomy ([facility]) x2 [facility] teeth removed Social History Tobacco Use Smoking [...] nursing note reviewed. Exam conducted with a program development specialist present. Vitals: Estimated body mass index is 42.44 kg/m as calculated from the following: Height as of 08/22/22: 5' 8.5 . Weight as of this encounter: 283 lb 4 oz. BP: 110/72 Patient's last menstrual period was 02/11/2024. ASSESSMENT & PLAN ICD-10-CM 1. Third trimester ([facility]) Z34.93 CULTURE, GROUP B STREP WITH SUSCEPTIBLITY CULTURE, GROUP B STREP WITH SUSCEPTIBLITY POCT urinalysis dipstick manually resulted 2. 36 weeks gestation of ([facility]) Z3A.36 3. Multigravida of advanced maternal age in third trimester ([facility]) O09.523 4. HSV infection B00.9 5. Excessive growth affecting management of , antepartum, single or unspecified fetus ([facility]) O36.60X0 Patient is doing well but has [...] of: Aquiles Campbell DO documented in this encounterAlvin J. Siteman Cancer [id number] History of Present illness Narrative* Daniela Candelaria LPN - 10/14/2024 2:30 PM EDT Reason for Appointment: Patient ID: Ed Murphy is a 33 y.o. female who presents for Routine Visit Patient presents today for Return OB appointment. MEDICATIONS Current Outpatient Medications Medication Instructions Sptvrogw-Fgh-Wg-FA ( 1 + IRON PO) ALLERGIES Allergies Allergen Reactions Cefadroxil Hives Other Reaction(s): hives, Unknown Other Reaction(s): hives, rash Latex Itching Other Reaction(s): Itching Other Reaction(s): Hives Paroxetine Other Reaction(s): Unknown PROBLEMS Active Ambulatory Problems Diagnosis Date Noted Anovulation 12/02/2022 DUB (dysfunctional uterine bleeding) 12/02/2022 Menstrual disorder 12/02/2022 Missed menses 12/02/2022 Yeast infection 12/02/2022 31 weeks gestation of ([facility]) 09/17/2024 Third trimester ([facility]) 09/17/2024 Multigravida of advanced maternal age in third trimester ([facility]) 09/17/2024 Resolved Ambulatory Problems Diagnosis Date Noted Bleeding in early ([facility]) 12/02/2022 Past Medical History: Diagnosis Date Frequent UTI Herpes History of chlamydia 2008 History of depression 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 2011 Personal history of other medical treatment ([facility]) [facility] teeth [facility] HISTORY PAST MEDICAL HISTORY SOCIAL HISTORY Past Medical History: Diagnosis Date Bleeding in early ([facility]) 12/02/2022 Frequent UTI Herpes History of chlamydia 2008 History of depression no meds 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 Exam conducted with a program development specialist present. Vitals: Estimated body mass index is 42.67 kg/m as calculated from the following: Height as of 08/22/22: 5' 8.5 . Weight as of this encounter: 284 lb 12.8 oz. BP: 110/70 Patient's last menstrual period was 02/11/2024. ASSESSMENT & PLAN ICD-10-CM 1. 35 weeks gestation of ([facility]) Z3A.35 POCT urinalysis dipstick manually resulted 2. Third trimester ([facility]) Z34.93 POCT urinalysis dipstick manually resulted 3. Multigravida of advanced maternal age in third trimester ([facility]) O09.523 4. Excessive growth affecting management of , antepartum, single or unspecified fetus ([facility]) O36.60X0 5. Low iron E61.1 Patient presents today for a routine obstetrics appointment. Patient is currently 35w1d with a Estimated Date of Delivery: 11/17/24. [facility] Patient will return to clinic in 1 week for routine OB appointment and GBS will be obtained at that time. Documented by Daniela Candelaria LPN... on behalf of: Aquiles Campbell DO documented in this encounterAlvin J. Siteman Cancer [id number] History of Present illness Narrative* BRAIN Martinez - 09/30/2024 3:30 PM EDT Reason for Appointment: Patient ID: Ed Murphy [...] meal for a total of 4times daily. Sxzpumwt-Pnb-Vj-FA ( 1 + IRON PO) ALLERGIES Allergies Allergen Reactions Cefadroxil Hives Other Reaction(s): hives, Unknown Other Reaction(s): hives, rash Latex Itching Other Reaction(s): Itching Other Reaction(s): Hives Paroxetine Other Reaction(s): Unknown PROBLEMS Active Ambulatory Problems Diagnosis Date Noted Anovulation 12/02/2022 DUB (dysfunctional uterine bleeding) 12/02/2022 Menstrual disorder 12/02/2022 Missed menses 12/02/2022 Yeast infection 12/02/2022 31 weeks gestation of ([facility]) 09/17/2024 Third trimester ([facility]) 09/17/2024 Multigravida of advanced maternal age in third trimester ([facility]) 09/17/2024 Resolved Ambulatory Problems Diagnosis Date Noted Bleeding in early ([facility]) 12/02/2022 Past Medical History: Diagnosis Date Frequent UTI Herpes History of chlamydia 2008 History of depression 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 Third trimester ([facility]) Z34.93 POCT urinalysis dipstick manually resulted 2. 33 weeks gestation of ([facility]) Z3A.33 Return OB: Patient presents today for [...] behalf of: BRAIN Martinez documented in this encounterAlvin J. 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 Exam conducted with a program development specialist present. Vitals: Estimated body mass index is [...] of: Aquiles Campbell DO documented in this encounterAlvin J. 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 Third trimester Z34.93 CBC and differential [...] day. Patient going on a trip to [facility], she will return at 31 weeks. [...] behalf of: BRAIN Martinez documented in this encounterAlvin J. 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 Exam conducted with a program development specialist present. Vitals: Estimated body mass index is [...] in second trimester O09.522 OB follow up transabdominalapproach Patient presents today for a routine obstetrics appointment. Patient is currently 24w4d with a Estimated Date of Delivery: 11/17/24. Reviewed patients sugars and advised they are good, but tostay away from cereal. Patient will continue to monitor. Patient had follow up anatomy scan today and anatomy not cleared. Patient will be referred to [facility] for Level II Scan and consult if needed. Discussed patient upcoming vacation and precautions given. Patient will have growth scan start at 28 weeks gestation. Patient to return to clinic in 4 weeks. Patient to drop off FSBS results for routine in the meantime. Documented by Daniela Candelaria LPN on behalf of: Aquiles Campbell DO documented in this encounterAlvin J. Siteman Cancer [id number] History of Present illness Narrative* Daniela Candelaria LPN - 06/03/2024 2:20 PM EST Reason for Appointment: Patient ID: Ed Murphy is a 33 y.o. female who presents for Routine Visit Patient presents today for Return OB appointment. 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 Exam conducted with a program development specialist present. Vitals: Estimated body mass index is [...] off on referral at this time. Discussed Edson testing if patient desires to check for genetic testing and patient declines at this time as well. Obtained vaginal cultures without issue & patient to return to clinic in 4 weeks for routine OB appointment. Documented by Daniela Candelaria LPN on behalf of: Aquiles Campbell DO documented in this encounterAlvin J. Siteman Cancer [id number] History of Present illness Narrative* Daniela Candelaria LPN - 05/02/2024 11:40 AM EST Reason for Appointment: Patient ID: Ed Murphy is a 33 y.o. female who presents for Routine Visit Patient presents today for Return OB appointment. 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 Siteman Cancer [id number] History of Present illness Narrative* BRAIN Martinez - 02/15/2024 2:00 PM EST Reason for Appointment: Patient ID: Ed Murphy is a 33 y.o. female who presents for Well Women Visit Patient presents today for Annual Exam. MEDICATIONS Current Outpatient Medications Medication Instructions co-enzyme Q-10 30 mg, Oral, Daily guaiFENesin (MUCINEX) 1,200 mg, Oral, 2 times daily, Do not crush, chew, or split. 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 Exam conducted with a program development specialist present. Vitals: Estimated body mass index is [...] behalf of: BRAIN Martinez documented in this encounterAlvin J. Siteman Cancer [id number] History of Present illness Narrative* Daniela Candelaria LPN - 02/12/2024 8:50 AM EST Reason for Appointment: Patient ID: Ed Murphy is a 33 y.o. female who presents for Infertility (Pt present today to discuss infertility) Patient presents today for Consult appointment. 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 Exam conducted with a program development specialist present. Vitals: Estimated body mass index is [...] to take Femara on days 3-7 of cycle.On day 21 of cycle patient is to [...] of: Aquiles Campbell DO documented in this encounterNOAK HealthcareEvaluation note* Diagnosis Anovulation Female infertility associated with anovulation documented in this encounter [facility]* Diagnosis Well woman exam with routine gynecological exam Routine gynecological examination documented in this encounter [facility] HealthcareEvaluation noteNo assessment information availableAcmc Healthcare System [facility] Work Phone: Evaluation note* Diagnosis First [...] trimester ([facility]HS-HCC) documented in this encounter [facility]Evaluation note* Diagnosis Postoperative follow-up Follow-up examination, following unspecified surgery documented in this encounter [facility] HealthcareEvaluation note* Diagnosis 6 weeks follow-up (HHS-HCC) documented in this encounter [facility] HealthcareInstructionsNot on filedocumented in this encounterMercy [facility] St[facility] Summary Purpose Family History No [...] section and content) DATE CREATED AUTHOR 07/05/2021 [facility] DATE CREATED AUTHOR AUTHOR'S ORGANIZ ATION 08/23/2022 [facility] DATE CREATED AUTHOR AUTHOR'S ORGANIZ ATION 04/19/2024 [facility] DATE CREATED AUTHOR AUTHOR'S ORGANIZ ATION 08/13/2024 [facility] DATE CREATED AUTHOR AUTHOR'S ORGANIZ ATION 12/25/2024 [facility] EPIC Reason for Visit (unrecogniz ed section and content) ReasonCommentsInfertilityPt present today to discuss infertilityReasonComments Well Women VisitReasonCommentsRoutine VisitReasonCommentsPost-op Visit ReasonCommentsPostpartum Follow-up Care Teams (unrecognized sec tion and content) Team Status: Inactive Member Role Status Dates Aquiles Adrian , DO Attending Provider Active Start : April [...] BE BASED ON THE PRIMARY CLINICAL RECORDS. [employer] provides no warranty or guarantee of the accuracy or completeness of information in this document.
[2025-02-21 06:08] LABS: Age Gdln ACOG Testing Note (.); IGP, Aptima HPV, rfx 16/18,45 Note (.)
== END 2025-02-19 14:25 | disposition home or self-care (01) ==
LOC: LAB 14:24
PROVIDERS: Visit Provider Obstetrics & Gynecology
DX: Z01.419 Encounter for gynecological examination (general) (routine) without abnormal findings (principal)
CPT/HCPCS: 87624; 88175